=== PATIENT | male | born 1970 | race Caucasian/White ===

== ENCOUNTER 2022-08-21 14:04 | Emergency (ER) | payer MEDICARE, MEDICAID, SELFPAY ==
[2022-08-21 14:11] VITALS: BP 169/97; PULSE 71; RESP 16; TEMP 36.9; O2SAT 97; BMI 33.0
--- NOTE | 2022-08-21 14:13 | CT_ITS ---
[address] [address] Patient Name: ALETHEA LEI MRN: [id number] date: 1970 Sex: M Assigned Patient Location: ER Current Patient Location: .[facility] Accession/Order Number: [id number] Exam Date: 08/21/2022 14:30 Report Date: 08/21/2022 15:25 At the request of: GERARD EAST Procedure: CT head/brain wo con EXAM: CT facial bones wo con, CT head/brain wo con, CT cervical spine wo con HISTORY: Fall COMPARISON: CT head 09/18/2021. TECHNIQUE: CT head without contrast. CT facial bones without contrast. CT cervical spine without contrast. Multiplanar reformats obtained. The current study utilizes one or more of the following dose-reduction techniques: automated exposure control, iterative reconstruction, and/or manual adjustment of tube current and voltage for size. FINDINGS: CT HEAD: Chronic brain parenchymal calcifications, not significant change. No evidence of acute intracranial hemorrhage. No midline shift. Ibarra-white matter differentiation is maintained. Basal cisterns patent. Ventricles reflect volume loss. Small left frontal scalp contusion. CT FACIAL BONES: The mandible is intact. Temporal mandibular joint alignment maintained. The pterygoid plates are intact. Mastoid air cells clear. Paranasal sinuses largely clear. Orbits are intact. No nasal bone fracture. CT CERVICAL SPINE: No evidence of acute fracture or traumatic malalignment. Age expected degenerative change. The spinal canal is grossly patent. No prevertebral edema. Mild/moderate multilevel and bilateral neural foraminal stenoses. IMPRESSION: No acute ischemia findings. No facial bone fractures. No acute traumatic findings of the cervical spine. Small left frontal scalp contusion. Electronically authenticated by: PHILL TARANGO Date: 08/21/2022 15:25
--- NOTE | 2022-08-21 14:13 | CT_ITS ---
[address] [address] Patient Name: ALETHEA LEI MRN: [id number] date: 1970 Sex: M Assigned Patient Location: ER Current Patient Location: .[facility] Accession/Order Number: [id number] Exam Date: 08/21/2022 14:30 Report Date: 08/21/2022 15:25 At the request of: GERARD EAST Procedure: CT facial bones wo con EXAM: CT facial bones wo con, CT head/brain wo con, CT cervical spine wo con HISTORY: Fall COMPARISON: CT head 09/18/2021. TECHNIQUE: CT head without contrast. CT facial bones without contrast. CT cervical spine without contrast. Multiplanar reformats obtained. The current study utilizes one or more of the following dose-reduction techniques: automated exposure control, iterative reconstruction, and/or manual adjustment of tube current and voltage for size. FINDINGS: CT HEAD: Chronic brain parenchymal calcifications, not significant change. No evidence of acute intracranial hemorrhage. No midline shift. Ibarra-white matter differentiation is maintained. Basal cisterns patent. Ventricles reflect volume loss. Small left frontal scalp contusion. CT FACIAL BONES: The mandible is intact. Temporal mandibular joint alignment maintained. The pterygoid plates are intact. Mastoid air cells clear. Paranasal sinuses largely clear. Orbits are intact. No nasal bone fracture. CT CERVICAL SPINE: No evidence of acute fracture or traumatic malalignment. Age expected degenerative change. The spinal canal is grossly patent. No prevertebral edema. Mild/moderate multilevel and bilateral neural foraminal stenoses. IMPRESSION: No acute ischemia findings. No facial bone fractures. No acute traumatic findings of the cervical spine. Small left frontal scalp contusion. Electronically authenticated by: PHILL TARANGO Date: 08/21/2022 15:25
--- NOTE | 2022-08-21 14:13 | CT_ITS ---
[address] [address] Patient Name: ALETHEA LEI MRN: [id number] date: 1970 Sex: M Assigned Patient Location: ER Current Patient Location: .[facility] Accession/Order Number: [id number] Exam Date: 08/21/2022 14:30 Report Date: 08/21/2022 15:25 At the request of: GERARD EAST Procedure: CT cervical spine wo con EXAM: CT facial bones wo con, CT head/brain wo con, CT cervical spine wo con HISTORY: Fall COMPARISON: CT head 09/18/2021. TECHNIQUE: CT head without contrast. CT facial bones without contrast. CT cervical spine without contrast. Multiplanar reformats obtained. The current study utilizes one or more of the following dose-reduction techniques: automated exposure control, iterative reconstruction, and/or manual adjustment of tube current and voltage for size. FINDINGS: CT HEAD: Chronic brain parenchymal calcifications, not significant change. No evidence of acute intracranial hemorrhage. No midline shift. Ibarra-white matter differentiation is maintained. Basal cisterns patent. Ventricles reflect volume loss. Small left frontal scalp contusion. CT FACIAL BONES: The mandible is intact. Temporal mandibular joint alignment maintained. The pterygoid plates are intact. Mastoid air cells clear. Paranasal sinuses largely clear. Orbits are intact. No nasal bone fracture. CT CERVICAL SPINE: No evidence of acute fracture or traumatic malalignment. Age expected degenerative change. The spinal canal is grossly patent. No prevertebral edema. Mild/moderate multilevel and bilateral neural foraminal stenoses. IMPRESSION: No acute ischemia findings. No facial bone fractures. No acute traumatic findings of the cervical spine. Small left frontal scalp contusion. Electronically authenticated by: PHILL TARANGO Date: 08/21/2022 15:25
--- NOTE | 2022-08-21 14:17 | ED.HEATRA1 ---
HPI - Head Injury General Chief complaint: Head Injury Stated complaint: HEAD INJURY, FELL Time Seen by Provider: 08/21/22 14:12 Source: caregiver Mode of arrival: walk-in Limitations: other Limitations comment: Disability History of Present Illness HPI Narrative: patient is a 52-year-old male who presents to the emergency department with a caregiver from the long-term [facility] where he is a resident for the evaluation of a head injury that occurred just prior to arrival. Patient has moderate developmental disability. He was at an outing with other residents when he stood up from a chair and tripped on a curb, falling forward. Caregiver has extremely limited information about his medical history although he does not take any blood thinners. He had no loss of consciousness and has had no vomiting. He is at his mental baseline, ambulatory with no noted extremity injuries. He was noted to have swelling and abrasion to the forehead. No bleeding from the nose or mouth. Related Data Home Medications Medication Instructions Recorded Confirmed calcium carbonate 500 mg-vitamin 1 tab PO BID 08/21/22 08/21/22 D3 5 mcg (200 unit) tablet (Oyster Shell Calcium-Vitamin D3) denosumab 60 mg/mL subcutaneous 60 mg subcut .6 months 08/21/22 08/21/22 syringe (Prolia) oxcarbazepine 600 mg tablet 600 mg PO BID 08/21/22 08/21/22 paroxetine HCl 40 mg tablet 60 mg PO DAILY 08/21/22 08/21/22 Allergies Allergy/AdvReac Type Severity Reaction Status Date / Time Pertussis Vaccines Allergy Unknown Verified 08/21/22 14:16 Review of Systems ROS Constitutional Denies: fever or chills Ears, nose, mouth, and throat Denies: neck pain Cardiovascular Denies: chest pain Respiratory Denies: shortness of breath or cough Gastrointestinal Denies: nausea or vomiting Musculoskeletal Denies: back pain Integumentary/Breast Denies: rash Neurological Denies: headache PFSH PFSH Social History Smoking status: Never smoker Exam Narrative Exam Narrative: Gen.: Awake, alert, in no distress Head: Normocephalic, atraumatic ENT: Moist mucous membranes, no injury to the nose or mouth, no epistaxis or bleeding. Patient with a large abrasion and small hematoma over the left orbit. No deep lacerations or subcutaneous tissue exposure noted. No active bleeding. Neck: C-spine nontender with full range of motion Respiratory: No respiratory distress, lungs clear bilaterally Cardio: Regular rate and rhythm Gastrointestinal: Abdomen is soft, nondistended and nontender to palpation, pelvis is stable Extremities: Moves extremities equally, no injuries noted Psych: Normal mood and affect Neuro: No focal neuro deficit Skin: Warm, dry Constitutional Vital Signs - 24 hr 08/21/22 14:11 Temperature 98.4 F Pulse Rate [Monitor] 71 Respiratory Rate 16 Blood Pressure [Left Arm] 169/97 H Pulse Oximetry 97 Oxygen Delivery Method Room Air Course Vital Signs Vital signs: Vital Signs Temperature 98.4 F 08/21/22 14:11 Pulse Rate 71 08/21/22 14:11 Respiratory Rate 16 08/21/22 14:11 Blood Pressure 169/97 H 08/21/22 14:11 Pulse Oximetry 97 08/21/22 14:11 Oxygen Delivery Method Room Air 08/21/22 14:11 Temperature 98.4 F 08/21/22 14:11 Pulse Rate 71 08/21/22 14:11 Respiratory Rate 16 08/21/22 14:11 Blood Pressure 169/97 H 08/21/22 14:11 Pulse Oximetry 97 08/21/22 14:11 Oxygen Delivery Method Room Air 08/21/22 14:11 MDM - Head Injury MDM Narrative Medical decision making narrative: CTs of the head, facial bones and C-spine are unremarkable. No indication for suture repair at this time. Bacitracin was applied. Patient's tetanus is within the last ten years, he is ALLERGIC to pertussis vaccines so we are not able to provide any additional tetanus updated this time, I'll up with PCP. Wound care encouraged and return to the emergency department if symptoms change or worsen. Patient is extremely anxious for discharge. Imaging Data CT scan - head: Attestation: I have reviewed the pertinent imaging results. CT facial bones: Attestation: I have reviewed the pertinent imaging results. CT cervical spine: Attestation: I have reviewed the pertinent imaging results. Discharge Plan Discharge Chief Complaint: Head Injury Clinical Impression: Closed head injury, Hematoma of scalp, Abrasion of face Patient Disposition: Home, Self-Care Time of Disposition Decision: 15:29 Condition: Good Prescriptions / Home Meds: No Action oxcarbazepine 600 mg tablet 600 mg PO BID paroxetine HCl 40 mg tablet 60 mg PO DAILY calcium carbonate-vitamin D3 [Oyster Shell Calcium-Vit D3] 500 mg-5 mcg (200 unit) tablet 1 tab PO BID Prolia 60 mg/mL syringe 60 mg SUBCUT .6 months Instructions: Head Injury (ED), Abrasion (ED) Stand Alone Forms: Portal Instructions Referrals: Physician,Non-Staff, MD [Primary Care Provider] - 1 week
[2022-08-21] MEDS: BACITRACIN OINTMENT 28.4 GM TUBE 1 APPLIC TOPICAL (14:34)
== END 2022-08-21 15:36 | disposition home or self-care (01) ==
PROVIDERS: Emergency Provider Emergency Medicine
DX: S09.8XXA Other specified injuries of head, initial encounter (principal); S00.03XA Contusion of scalp, initial encounter; S00.212A Abrasion of left eyelid and periocular area, initial encounter; W10.1XXA Fall (on)(from) sidewalk curb, initial encounter; Z79.899 Other long term (current) drug therapy
CPT/HCPCS: 70450; 70486; 72125; 99284

== ENCOUNTER 2023-07-14 11:00 | Emergency (ER) | payer MEDICARE, MEDICAID, SELFPAY ==
[2023-07-14 11:04] VITALS: BP 150/98; PULSE 62; TEMP 36.5; O2SAT 99; BMI 25.8
--- NOTE | 2023-07-14 11:07 | CT_ITS ---
The [address] [address] Patient Name: ALETHEA LEI MRN: [id number] date: 1970 Sex: M Assigned Patient Location: ER Current Patient Location: ER Accession/Order Number: [id number] Exam Date: 07/14/2023 12:12 Report Date: 07/14/2023 12:58 At the request of: JODI HILLS Procedure: CT head/brain wo con EXAMINATION: CT head/brain wo con HISTORY: Fell, hit head COMPARISON: CT head 08/21/2022 TECHNIQUE: Axial CT images were obtained without IV contrast. Dose reduction techniques were achieved by using automated exposure control and/or adjustment of mA and/or kV according to patient size and/or use of iterative reconstruction technique. FINDINGS: BRAIN: Multiple dense calcifications scattered within the brain and smaller areas of faint calcium deposition; unchanged. No intracranial hemorrhage, mass, mass effect. CSF SPACES: No hydrocephalus, subarachnoid hemorrhage, or mass. Appropriate for age. SKULL: No fracture, mass, or other significant visible lesion. SINUSES: No significant mucosal thickening or fluid on the limited views. ORBITS: No appreciable abnormality on the limited views. OTHER: Negative CT/CT head/brain wo con IMPRESSION: 1. No intracranial hemorrhage or acute abnormality. Stable chronic changes. 2. No fracture of the calvarium or scalp hematoma. Electronically authenticated by: SANDY DÍAZ Date: 07/14/2023 12:58
--- NOTE | 2023-07-14 11:08 | ED.FALL1 ---
HPI HPI - Fall General Chief Complaint: Fall Stated Complaint: FALL Time Seen by Provider: 07/14/23 11:07 Source: patient Mode of arrival: ambulance History of Present Illness HPI Narrative: 53-year-old male presented by ambulance to ED for a fall. The fall reportedly happened this morning at the facility where he stays. The patient only complains of head pain. He went to work and they felt that he was not acting normal so they sent him here to be evaluated. The patient is a poor historian and is unable to provide much history. Related Data Home Medications ?Medication ?Instructions ?Recorded ?Confirmed oxcarbazepine 600 mg tablet 600 mg PO BID 08/21/22 07/14/23 paroxetine HCl 40 mg tablet 60 mg PO DAILY 08/21/22 07/14/23 atorvastatin 40 mg tablet 40 mg PO DAILY 07/14/23 07/14/23 benztropine 1 mg tablet 1 mg PO TID 07/14/23 07/14/23 clonidine HCl 0.1 mg tablet 0.1 mg PO Q8H 07/14/23 07/14/23 docusate sodium 100 mg capsule 100 mg PO TID 07/14/23 07/14/23 fluocinonide 0.05 % topical topical .weekly 07/14/23 solution haloperidol 5 mg tablet 10 mg PO .evening 07/14/23 07/14/23 Allergies Allergy/AdvReac Type Severity Reaction Status Date / Time Pertussis Vaccines Allergy Unknown Verified 08/21/22 14:16 Opioid HPI Opioid Management Most Recent Pain and Opioid Data: No Data to Display Review of Systems ROS Narrative Unable to be obtained, psychiatric history PFSH PFSH Social History Smoking status: Never smoker Exam Narrative Exam Narrative: Nurses note and vital signs reviewed and patient is not hypoxic. General: The patient appears well and in no apparent distress. Patient is resting comfortably on cart. Skin: Warm, dry, no pallor noted. There is no rash noted. Small abrasion noted on the left forearm. Head: Normocephalic, atraumatic Eye: Normal conjunctiva, no drainage Ears, Nose, Mouth, and Throat: oral mucosa is moist. Nares patent. Cardiovascular: Regular Rate and Rhythm Respiratory: Patient is in no distress, no accessory muscle use, lungs are clear to auscultation, no wheezing, rales or rhonchi Back: non-tender, no bruise or rash GI: Soft and nontender Musculoskeletal: The patient has no evidence of calf tenderness, no pitting edema, symmetrical pulses noted bilaterally Neurological: Awake and alert, conversant Psychiatric: Cooperative Constitutional Vital Signs, click to edit/add: Last Vital Signs Temp 97.7 F 07/14/23 11:04 Pulse 62 07/14/23 11:04 Resp 16 07/14/23 11:04 BP 150/98 H 07/14/23 11:04 Pulse Ox 99 07/14/23 11:04 O2 Del Method Room Air 07/14/23 11:04 Course Vital Signs Vital signs: Vital Signs Temperature 97.7 F 07/14/23 11:04 Pulse Rate 62 07/14/23 11:04 Respiratory Rate 16 07/14/23 11:04 Blood Pressure 150/98 H 07/14/23 11:04 Pulse Oximetry 99 07/14/23 11:04 Oxygen Delivery Method Room Air 07/14/23 11:04 Temperature 97.7 F 07/14/23 11:04 Pulse Rate 62 07/14/23 11:04 Respiratory Rate 16 07/14/23 11:04 Blood Pressure 150/98 H 07/14/23 11:04 Pulse Oximetry 99 07/14/23 11:04 Oxygen Delivery Method Room Air 07/14/23 11:04 MDM - Fall MDM Narrative Medical decision making narrative: See the brain is negative. Findings discussed with the caregiver and he is able to be discharged. Differential Diagnosis Differential diagnosis: Likely other (Fall, intracranial hemorrhage, contusion) Imaging Data CT scan - head: Radiologist's impression: ITS Impressions Head CT 07/14/23 11:07 IMPRESSION: 1. No intracranial hemorrhage or acute abnormality. Stable chronic changes. 2. No fracture of the calvarium or scalp hematoma. Electronically authenticated by: SANDY DÍAZ Date: 07/14/2023 12:58 Discharge Plan Discharge Stand Alone Forms: Portal Instructions Chief Complaint: Fall Clinical Impression: Fall Patient Disposition: Home, Self-Care Time of Disposition Decision: 13:21 Condition: Good Mode of Transportation: Private Vehicle Prescriptions / Home Meds: No Action oxcarbazepine 600 mg tablet 600 mg PO BID Hold Instructions: dc paroxetine HCl 40 mg tablet 60 mg PO DAILY Hold Instructions: dc atorvastatin 40 mg tablet 40 mg PO DAILY benztropine 1 mg tablet 1 mg PO TID clonidine HCl 0.1 mg tablet 0.1 mg PO Q8H docusate sodium 100 mg capsule 100 mg PO TID fluocinonide 0.05 % solution TOPICAL .weekly haloperidol 5 mg tablet 10 mg PO .evening Print Language: Tamazight Instructions: Fall Prevention (ED) Referrals: Physician,Non-Staff, MD [Primary Care Provider] - 1 week
== END 2023-07-14 13:30 | disposition home or self-care (01) ==
PROVIDERS: Emergency Provider Emergency Medicine
DX: Z04.3 Encounter for examination and observation following other accident (principal); Z79.899 Other long term (current) drug therapy
CPT/HCPCS: 70450; 99284

== ENCOUNTER 2023-07-15 09:53 | Outpatient (REF) | payer MEDICARE, MEDICAID, SELFPAY ==
--- OUTSIDE RECORDS SUMMARY | 2023-07-15 10:01 | XMS_ITS | CCD ---
Author Organization [facility] Care Team Providers Care Barrel Assembly Inspector Name Role Phone Robbi PETERSEN Unavailable Unavailable ESPINOZA, GO A Unavailable Unavailable ESPINOZA, GO A Unavailable Unavailable Chanoemi, Kamal Unavailable Cj Gayle Unavailable DO Go Espinoza A Primary Care Provider [phone] DO Cj Gayle Attending Provider PROVIDER, UNKNOWN Attending Unavailable PROVIDER, UNKNOWN Admitting Unavailable PROVIDER, UNKNOWN Admitting Unavailable PROVIDER, UNKNOWN Attending Unavailable SIMI EDWARDS Admitting Unavailable SIMI EDWARDS Attending Unavailable SIMI EDWARDS Referring Unavailable Unavailable Primary Care Provider Unavailabl e Kristin, DO Go A Primary Care Provider DO Cj Gayle A Attending Provider [phone] Espinoza, DO Go A Primary Care Provider [phone] DO Cj Gayle A Attending Provider MD Nallely Parada Attending Provider Cj Gayle A Attending Unavailable Espinoza, Go A Primary Care Unavailable Nalini Cj A Admitting Unavailable NaliniMagdyin A Attending Unavailable Espinoza, Go A Primary Care Unavailable Nalini, Cj A Admitting Unavailable Nalini, Cj A Attending Unavailable Espinoza, Go A Primary Care Unavailable Nalini, Cj A Admitting Unavailable Espinoza, Go A Primary Care Unavailable Chaban, Kamal Attending Unavailable Chaban, Kamal Admitting Unavailable Espinoza, Go A Primary Care Unavailable KassybanNallely Attending Unavailable Chaban, Kamal Admitting Unavailable Nalini, Cj A Admitting Unavailable Espinoza, Go A Primary Care Unavailable NaliniCj Attending Unavailable NaliniCj Admitting Unavailable Espinoza, Go Ricci Primary Care Unavailable NaliniCj Attending Unavailable Unavailable Primary Care Provider Unavailnallely MORALEZ ., TRAN Admitting Unavailable KIRT ., TRAN Attending Unavailable ESPINOZA, DR GO Ricci Primary Care Unavailable ZIEBER, DR SANDY Velez Consulting Unavailable SHEILA ., MARY Consulting Unavailable KIRT .TRAN Consulting Unavailable ESPINOZA, DR GO Ricci Primary Care Unavailable WEST, DR NORMA Medellin Consulting Unavailable ESPINOZA, DR GO Ricci Admitting Unavailable ESPINOZA, DR GO Ricci Attending Unavailable ESPINOZA, DR GO Ricci Consulting Unavailable ESPINOZA, DR GO Ricci Primary Care Unavailable ESPINOZA, DR GO Ricci Admitting Unavailable ESPINOZA, DR GO Ricci Attending Unavailable WEST, DR NORMA Medellin Consulting Unavailable ESPINOZA, DR GO Ricci Consulting Unavailable ESPINOZA, DR GO Ricci Consulting Unavailable ESPINOZA, DR GO Ricci Primary Care Unavailable ESPINOZA, DR GO Ricci Admitting Unavailable ESPINOZA, DR GO Ricci Attending Unavailable JONAH MAJANO Consulting Unavailable ESPINOZA, DR GO Ricci Consulting Unavailable ESPINOZA, DR GO Ricci Primary Care Unavailable ESPINOZA, DR GO Ricci Attending Unavailable ESPINOZA, DR GO Ricci [place] Unavailable BROWNNORMA Consulting Unavailable ESPINOZA, DR GO Ricci Consulting Unavailable ESPINOZA, DR GO Ricci Primary Care Unavailable ESPINOZA, DR GO Ricci Attending Unavailable ESPINOZA, DR GO Ricci Admitting Unavailable ESPINOZA, DR GO Ricci Attending Unavailable ESPINOZA, DR GO Ricci [place] Unavailable WEST, DR NORMA Medellin Consulting Unavailable ESPINOZA, DR GO Ricci Primary Care Unavailable ESPINOZA, DR GO Ricci Consulting Unavailable ESPINOZAGO Primary Care Physician [phone] PITER BROWN Attending Unavailable ESPINOZA, GO Admitting Unavailable ESPINOZA, GO Attending Unavailable ESPINOZA, GO Attending Unavailable ESPINOZA, GO Admitting Unavailable SUMEET CALI Attending Unavailable ESPINOZA, GO ENCISO Primary Care Unavailab le SQUERIMEGAN Referring Unavailable SQUERI, MEGAN Attending Unavailable ESPINOZA, GO ENCISO Referring Unavailab le ESPINOZA, GO ENCISO Primary Care Unavailab le Allergies Allergy Classification Reported Allergen(s) Allergy Type Date of Onset Reaction(s) Facility (1 source) PERTUSSIS VACCINE,FLUID; Translations: [PERTUSSIS VACCINE,FLUID] Propensity to adverse reactions to drug (disorder) 7 [facility] Rep[facility] (7 sources) PERTUSSIS VACCINES; Translations: [PERTUSSIS VACCINES] Propensity to adverse reactions to drug (disorder) 8 [facility] Repository (1 source) Pertussis Vaccine Drug Allergy 3 [facility] Repository (1 source) ARIPiprazole; Translations: [ARIPIPRAZOLE] Drug Allergy 8 [facility] Repository Medications Current Medications Medication Drug Class(es) Dates Sig (Normalized) Sig (Original) 8 hr acetaminophen 650 mg extended release oral tablet (5 sources) Start: 09-24-2021 take 650 mg by mouth every four to six hours Acetaminophen Active 650 MG PO EVERY 4-6 HOURS September 23, 2021 11:00pm acetaminophen 325 mg / HYDROcodone bitartrate 5 mg oral tablet (5 sources) Opioid Agonist Start: 09-24-2021 take 1 tablet by mouth every four to six hours Hydrocodone-Acetam inophen Active 1 TAB PO EVERY 4-6 HOURS September 23, 2021 11:00pm alendronic acid 70 mg oral tablet (12 sources) Bisphosphonate Start: 09-24-2021 take 70 mg by mouth once daily Alendronate Active 70 MG PO Daily September 23, 2021 11:00pm Alendronate / Cholecalciferol (2 sources) Bisphosphonate, Vitamin D ALENDRONATE-CHOLEC ALCIFEROL ORAL Take by mouth. 0 Active aspirin 81 mg delayed release oral tablet (14 sources) Platelet Aggregation Inhibitor, Nonsteroidal Anti-inflammatory Drug Start: 09-24-2021 take 81 mg by mouth once daily Aspirin Active 81 MG PO Daily September 23, 2021 11:00pm take 1 tablet by mouth once cait y Aspir-Low 81 MG 1 tablet Orally Once a day Active Aspirin (ASPIR-8 1 ORAL) Take by mouth. 0 Active atorvastatin 40 mg oral tablet (14 sources) HMG-CoA Reductase Inhibitor Start: 09-24-2021 take 40 mg by mouth once daily Atorvastatin Active 40 MG PO Daily September 23, 2021 11:00pm benztropine mesylate 1 mg oral tablet (14 sources) Anticholinergic, Antihistamine Start: 09-24-2021 take 1 mg by mouth once daily Benztropine Active 1 MG PO Daily September 23, 2021 11:00pm take 1 tablet by mouth twice mc ly benztropine (COGENTIN) 1 MG tablet Take 1 mg by mouth 2 times daily. 0 Active Biotene Dry Mouth - (6 sources) Biotene Dry Mout h - as directed Mouth/Throat Active cloNIDine hydrochloride 0.1 mg oral tablet (14 sources) Central alpha-2 Adrenergic Agonist Start: 09-24-2021 take 0.1 mg by mouth once daily Clonidine Hcl Active 0.1 MG PO Daily September 23, 2021 11:00pm cloNIDine HCl (C ATAPRES ORAL) Take by mouth. 0 Active Dentifrices (BIOTENE DRY MOUTH DENTAL) (2 sources) Dentifrices (BIO TENE DRY MOUTH DENTAL) by Dental route. 0 Active haloperidol 5 mg oral tablet (12 sources) Typical Antipsychotic Start: 09-25-19 take 5 mg by mouth once daily Haloperidol Active 5 MG PO Daily September 23, 2021 11:00pm levothyroxine sodium 0.1 mg oral tablet (19 sources) l-Thyroxine Start: 09-25-19 take 150 ug by mouth once daily Levothyroxine Active 150 MCG PO Daily September 23, 2021 11:00pm take 1 tablet by elab th once daily in the morning Levothyroxine Sodium 100 MCG 1 tablet in the morning on an empty stomach Orally Once a day Active take 1 tablet by elba th once daily in the morning Levothyroxine Sodium 50 MCG 1 tablet in the morning on an empty stomach Orally Once a day Active LORazepam 1 mg oral tablet (2 sources) Benzodiazepine Start: 02-10-2022 LORazepam 1 MG as directed before testing Orally once for 1 days Jan, Active OXcarbazepine 600 mg oral tablet (14 sources) Anti-epileptic Agent Start: 09-24-2021 take 600 mg by mouth twice daily Oxcarbazepine Active 600 MG PO Twice daily September 23, 2021 11:00pm OXcarbazepine (T RILEPTAL ORAL) Take by mouth. 0 Active PARoxetine hydrochloride 40 mg oral tablet (14 sources) Serotonin Reuptake Inhibitor Start: 09-24-2021 take 40 mg by mouth once daily Paroxetine Hcl Active 40 MG PO Daily September 23, 2021 11:00pm Potassimin (7 sources) Potassimin Activ e potassium chloride 10 meq extended release oral capsule (7 sources) Start: 09-24-2021 take 10 mEq by mouth three times daily Potassium Chloride Active 10 MEQ PO Three times daily September 23, 2021 11:00pm take 1 tablet by mouth once cait y potassium chloride SA (K-DUR) 10 MEQ controlled release tablet Take 10 mEq by mouth daily. 0 Active Saliva Substitute Combo No.9 (Biotene Dry Mouth Oral Rinse) mouthwash (5 sources) Start: 09-24-2021 Saliva Substit [employer] [place] Combo No.9 (Biotene Dry Mouth Oral Rinse) mouthwash Active 5 ML PO As Directed September 23, 2021 11:00pm Start: 09-24-2021 Saliva Substit [employer] [place] Combo No.9 (Biotene Dry Mouth Oral Rinse) mouthwash Active 5 ML PO As Directed September 24, 2021 12:00am traMADol hydrochloride 50 mg oral tablet (5 sources) Opioid Agonist Start: 09-24-2021 take 50 mg by mouth every four hours Tramadol Active 50 MG PO Q4H 42 7 September 23, 2021 11:00pm Problems Active Problems Problem Classification Problem Date Documented Date Episodic/Chronic Chronic kidney disease (1 source) Chronic kidney disease, unspecified; Translations: [CHRONIC KIDNEY DISEASE UNSPECIFIED] Onset: 03-17-2022 Chronic Developmental disorders (1 source) Unspecified intellectual disabilities; Translations: [UNSPEC INTELLECTUAL DISABILITIES] Onset: 09-25-2021 Chronic Disorders usually diagnosed in infancy, childhood, or adolescence (1 source) Autistic disorder; Translations: [AUTISTIC DISORDER] Onset: 09-25-2021 Chronic Epilepsy; convulsions (1 source) Epilepsy, unspecified, not intractable, without status epilepticus; Translations: [EPILEPSY UNS NOT INTRACT W/O SE] Onset: 03-17-2022 Chronic Essential hypertension (1 source) Essential (primary) hypertension; Translations: [ESSENTIAL PRIMARY HYPERTENSION] Onset: 09-25-2021 Chronic Fracture of lower limb (3 sources) Other fracture of lower end of left tibia, subsequent encounter for closed fracture with routine healing Onset: 10-16-2021 Resolved: 10-16-2021 Episodic Headache; including migraine (1 source) Headache; including migraine; Translations: [HEADACHE UNSPECIFIED] Onset: 09-25-2021 Osteoporosis (4 sources) Age-related osteoporosis without current pathological fracture; Translations: [AGE-REL OSTEOPOR W/O CURR PATH FX] Onset: 06-09-2022 Chronic Other congenital anomalies (7 sources) Tuberous sclerosis syndrome; 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 Other congenital anomalies (1 source) Tuberous sclerosis Onset: 08-14-2021 Resolved: 08-14-2021 Chronic Other connective tissue disease (4 sources) Pain in right leg; Translations: [PAIN IN RIGHT LEG] Onset: 04-11-2022 Episodic Other diseases of kidney and ureters (1 source) Other specified disorders of kidney and ureter; Translations: [OTHER SPEC DISORDERS KIDNEY URETER] Onset: 05-31-2022 Chronic Other nervous system disorders (1 source) Unspecified abnormalities of gait and mobility; Translations: [UNS ABNORMALITIES GAIT AND MOBILITY] Onset: 04-16-2022 Episodic Other non-traumatic joint disorders (1 source) Stiffness of unspecified joint, not elsewhere classified; Translations: [STIFFNESS UNSPECIFIED JOINT NEC] Onset: 04-16-2022 Episodic Residual codes; unclassified (1 source) Other specified postprocedural states Episodic Thyroid disorders (5 sources) Hypothyroidism, unspecified; Translations: [HYPOTHYROIDISM UNSPECIFIED] Onset: 09-25-2021 Chronic Unclassified (1 source) Displaced fracture of lateral malleolus of right fibula, subsequent encounter for closed fracture with routine healing; Translations: [Displaced fracture of lateral malleolus of right fibula, subsequent encounter for closed fracture with routine healing] Onset: 01-06-2022 Unclassified (1 source) Displaced fracture of lateral malleolus of right fibula, initial encounter for closed fracture; Translations: [Displaced fracture of lateral malleolus of right fibula, initial encounter for closed fracture] Onset: 09-24-2021 Unclassified (1 source) Encounter for preprocedural laboratory examination; Translations: [Encounter for preprocedural laboratory examination] Onset: 09-23-2021 Unclassified (3 sources) CHRN KIDNEY DISEASE STG 3 UNSP; Translations: [CHRN KIDNEY DISEASE STG 3 UNSP] Onset: 05-31-2022 Unclassified (1 source) CONTACT W/AND (SUSP) EXPOS COVID-19; Translations: [CONTACT W/AND (SUSP) EXPOS COVID-19] Onset: 09-25-2021 Past or Other Problems Problem Classification Problem Date Documented Da te Episodic/Chronic Disorders of teeth and jaw (2 sources) Dental caries; Translations: [Dental caries, unspecified] Onset: 01-01-2021 01-01-2021 Episodic E Codes: Fall (1 source) Fall on same level, unspecified, initial encounter; Translations: [FALL SAME LEVEL UNSPECIFIED INITIAL] Onset: 09-25-2021 Episodic Fracture of lower limb (10 sources) Displaced fracture of lateral malleolus of right fibula, subsequent encounter for closed fracture with routine healing; Translations: [Fracture of ankle] Onset: 09-24-2021 Resolved: 10-16-2021 Episodic Other aftercare (1 source) Other care home (current) drug therapy; Translations: [OTH USP CURRENT DRUG THERAPY] Onset: 09-25-2021 Episodic Other lower respiratory disease (1 source) Other disorders of lung Onset: 08-14-2021 Resolved: 08-14-2021 Episodic Other lower respiratory disease (2 sources) Solitary pulmonary nodule; Translations: [Solitary pulmonary nodule] Onset: 08-05-2021 Episodic Other non-traumatic joint disorders (3 sources) Pain in right ankle and joints of right foot; Translations: [PAIN IN RIGHT ANKLE] Onset: 09-18-2021 Episodic Unclassified (1 source) CHRN KIDNEY DISEASE STG 3 UNSP; Translations: [CHRN KIDNEY DISEASE STG 3 UNSP] Onset: 05-27-2022 Results Test Name Value Interpretation Reference Range Facility [facility]2023 [facility] ALETHEA LEI ([id number]) 1970 M Date Time Provider Department 05/15/23 SUMEET CALI PSYRMN During your visit today, we recorded the following information about you: Mariana Fair 05/15/2023 2:56 PM Signed uLcretia Allison- patients mom called and stated that [facility] is not able to do an appt for patient with you? They told her if you had a form that you can send to them? She don't know the name of the form? The conversation was a bit confusing. Mom can be reached at [phone] Thank you, Mariana Fair Allergies As of Date: 05/15/2023 Noted Allergy Reaction ARSALANLIFY (ARIPIPRAZOLE) 02/01/2008 1 - Mental Status Change Comments: agressiveness PERTUSSIS VACCINES 12/13/2007 Date Reviewed: 07/08/2022 Reviewed by: Megan Tse MD - Fully Assessed Prescriptions as of 05/18/2023 - alendronate (FOSAMAX) 70 mg tablet Take 1 tablet by mouth one time a week. on Wednesdays at 15:00 - loratadine (CLARITIN) 10 mg tablet Take 1 tablet by mouth once daily. for 3 days as needed for nasal congestion. - haloperidol (HALDOL) 5 mg tablet Take 3 tablets daily by mouth in the morning, 2 tablets in the evening, and 3 tablets at bedtime - gstmfgk-vorrrgkgf-zl tamin D3 (OYSTER SHELL CALCIUM-VITAMIN D) 500 mg(1,250mg) -200 unit per tablet Take 1 tablet by mouth twice daily with meals. - levothyroxine (SYNTHROID) 150 mcg tablet Take 1 tablet by mouth once daily. - fluocinonide (LIDEX) 0.05 % cream Apply 1 application to affected area once each week. - OXcarbazepine 600 mg tablet Take 1 tablet by mouth three times daily. - PARoxetine 40 mg tablet Take 1.5 tablets by mouth once daily. - cloNIDine 0.1 mg tablet Take 1 tablet by mouth three times daily. - MULTIVITAMIN CAP daily - POTASSIUM CHLORIDE SR 10 MEQ TAB one cap three times daily - DOCUSATE SODIUM 100 MG CAP take one tab PO tid - BENZTROPINE 1 MG TAB take 1 tablet TID Problem List As Of Date 05/15/2023 Noted Resolved TUBEROUS SCLEROSIS [Q85.1] 02/02/2008 HEMANGIOMA SKIN [D18.01] 02/02/2008 SPECIAL SYMPTOM NEC/NOS [OZZ4662] 02/03/2008 FRONTAL LOBE SYNDROME [F07.0] 08/02/2008 Autism spectrum disorder [F84.0] 08/02/2008 Impulse control disorder [F63.9] 08/16/2012 Intellectual disability [F79] 01/31/2021 Encounter Status:Closed by MARIANA FAIR on 05/18/23 Normal [facility] T3 Freeon 02-27-2023 Free T3 [Mass/Vol] 2.0 pg/mL Invalid Interpretation Code 2.0-4.4 [facility] Comment on above: Result Comment: Perf ormed at: [facility] [address], [place] [id number] PhD Jarod Kumar Performed By: #### 2 880372, 6914587, 0828755, 78848065, 341675525, 3235199, 3685900, 8539724, 7631049, 9940956 ####[facility] [address] [place] [address] CMPon 02-26-2023 Albumin [Mass/Vol] 4.1 g/dL Normal 3.3-5.0 [facility] Comment on above: Performed By: #### 2 247603, 5269970, 6194545, 57567955, 698097657, 8931028, 1222094, 4407322, 0882903, 3917274 #### [facility] [address] [place] [address] Albumin/Globulin [Mass ratio] 1.4 {ratio} Normal 1.1-2.2 [facility] Comment on above: Performed By: #### 2 871152, 3628487, 9629783, 10930427, 025797708, 3256337, 2800973, 1611424, 8599962, 7643262 #### [facility] [address] [place] [address] Alk Phos 158 Int._Unit/L High 21-98 [facility] Comment on above: Performed By: #### 2 291544, 8999219, 8601120, 72473101, 071232692, 8467027, 3845091, 0482930, 4172880, 5255600 #### [facility] [address] [place] [address] ALT 32 Int._Unit/L Normal 6-46 [facility] Comment on above: Performed By: #### 2 922024, 0811294, 0620883, 42865277, 758831368, 2925203, 3838109, 7303397, 9574354, 2742288 #### [facility] [address] [place] [address] Anion gap [Moles/Vol] 12 mmol/L Normal 6-16 [facility] Comment on above: Performed By: #### 2 099695, 9595350, 9691044, 59889630, 038068088, 3610287, 5353432, 9125606, 7778725, 1039780 #### [facility] [address] [place] [address] AST 25 Int._Unit/L Normal 5-43 [facility] Comment on above: Performed By: #### 2 842112, 1578618, 5647801, 06339752, 732751132, 3765992, 9550537, 6023915, 3704381, 7480045 #### [facility] [address] [place] [address] Bili Total 0.3 mg/dL Normal 0.0-1.1 [facility] Comment on above: Performed By: #### 2 416378, 6320825, 7285330, 26977565, 834933094, 1267148, 1839894, 3046093, 2522536, 7189668 #### [facility] [address] [place] [address] BUN/Creat Ratio 17 No Units Normal 10-20 [facility] Comment on above: Performed By: #### 2 986600, 5542002, 7806910, 98276186, 179619700, 9604608, 6191909, 4991927, 0245327, 0310847 #### [facility] [address] [place] [address] Calcium [Mass/Vol] 8.9 mg/dL Normal 8.9-11.1 [facility] Comment on above: Performed By: #### 2 951056, 0276987, 2996195, 43803063, 369191583, 3478771, 8102068, 8406400, 3774567, 6358815 #### [facility] [address] [place] [address] Chloride [Moles/Vol] 113 mmol/L High 101-111 [facility] Comment on above: Performed By: #### 2 849387, 7056304, 2841675, 73964623, 007341221, 0794186, 7246103, 5216551, 6697217, 7438176 #### [facility] [address] [place] [address] CO2 [Moles/Vol] 22 mmol/L Normal 21-31 [facility] Comment on above: Performed By: #### 2 510361, 7591361, 8886531, 95662418, 852631583, 5270048, 3312931, 2379249, 9183352, 3309158 #### [facility] [address] [place] [address] Creatinine [Mass/Vol] 1.5 mg/dL High 0.5-1.3 [facility] Comment on above: Performed By: #### 2 114117, 9719370, 4101189, 96293128, 860265186, 7614943, 3353308, 9644708, 4614184, 4013484 #### [facility] [address] [place] [address] Globulin (S) [Mass/Vol] 2.9 g/dL Normal 1.4-4.0 [facility] Comment on above: Performed By: #### 2 448252, 2481620, 1078698, 84567686, 570339127, 3563778, 6758303, 2016621, 8082665, 4387703 #### [facility] [address] [place] [address] Glucose [Mass/Vol] 90 mg/dL Normal 55-199 [facility] Comment on above: Performed By: #### 2 587124, 7598138, 2984091, 82498613, 511571428, 6876187, 9602676, 6182748, 8623362, 7697513 #### [facility] [address] [place] [address] Potassium [Moles/Vol] 4.8 mmol/L Normal 3.5-5.3 [facility] Comment on above: Performed By: #### 2 036095, 0258663, 5137094, 34496132, 543241552, 9237974, 3788180, 3657707, 6231524, 0669026 #### [facility] [address] [place] [address] Protein [Mass/Vol] 7.0 g/dL Normal 6.0-7.8 [facility] Comment on above: Performed By: #### 2 300185, 9944241, 4284776, 79045914, 390885217, 9989876, 1584995, 0113557, 8338857, 6529797 #### [facility] [address] [place] [address] Sodium [Moles/Vol] 142 mmol/L Normal 135-145 [facility] Comment on above: Performed By: #### 2 790603, 7002169, 9496226, 65928146, 987659875, 2671508, 2988579, 4791313, 4934922, 5543170 #### [facility] [address] [place] [address] Urea nitrogen [Mass/Vol] 26 mg/dL High 5-21 [facility] Comment on above: Performed By: #### 2 069006, 7349474, 5481896, 21066742, 122802674, 0568885, 8486676, 5551684, 5328274, 3622943 #### [facility] [address] [place] [address] Ironon 02-26-2023 Iron 130 microgram/dL Normal 35-153 [facility] Comment on above: Performed By: #### 2 726902, 6105294, 6218446, 38602762, 867711979, 1571976, 0263564, 3210966, 4559917, 6684389 #### [facility] [address] [place] [address] Lipid Panelon 02-26-2023 Cholesterol [Mass/Vol] 105 mg/dL Low 120-200 [facility] Comment on above: Performed By: #### 2 301792, 1635083, 0734035, 02759295, 374394288, 8897018, 8956883, 5059655, 7535490, 6716025 #### [facility] [address] [place] [address] Cholesterol in HDL [Mass/Vol] 40 mg/dL Invalid Interpretation Code [facility] Comment on above: Result Comment: '>= 60 LOW RISK' '<= 40 HIGH RISK' Performed By: #### 2 012287, 2669596, 1654445, 24590034, 052747606, 1512530, 1629815, 3950914, 9281668, 3482451 #### [facility] [address] [place] [address] Cholesterol in LDL [Mass/Vol] 54 mg/dL Normal <=129 [facility] Comment on above: Performed By: #### 2 899392, 8242533, 7226544, 44754284, 174450741, 9977392, 1224277, 7600315, 0030169, 5396108 #### [facility] [address] [place] [address] Cholesterol in VLDL [Mass/Vol] 16 mg/dL Normal 7-40 [facility] Comment on above: Performed By: #### 2 554395, 0822595, 9158925, 42639015, 324000257, 8233002, 0296608, 0605011, 9479736, 3692427 #### [facility] [address] [place] [address] Triglyceride [Mass/Vol] 81 mg/dL Normal <=149 [facility] Comment on above: Performed By: #### 2 490300, 3423184, 0016426, 68485762, 010081022, 0999278, 4167785, 1263653, 9139107, 4349942 #### [facility] [address] [place] [address] Vit B12on 02-26-2023 Cobalamin (Vitamin B12) [Mass/Vol] 483 pg/mL Normal 50-1500 [facility] Comment on above: Performed By: #### 2 827981, 2056190, 3916745, 83570422, 030035538, 6516531, 1990213, 6414761, 4532865, 1029852 #### [facility] [address] [place] [address] Vitamin D 25 Hydroxyon 02-26 Vitamin D 25 Hydroxy 50.9 ng/mL Normal 30.0-100.0 [facility] Comment on above: Performed By: #### 2 628587, 8705169, 1545240, 33140650, 063678626, 2345566, 3276691, 6253552, 3886504, 8273625 ####[facility] [address] [place] [address] eGFRon 02-26-2023 eGFR 55 mL/min/1.73 m2 Low >=59 [facility] Comment on above: Order Comment: Order added by Discern Expert. Performed By: #### 2 830160, 8853321, 5079641, 07594652, 123505104, 7212483, 5505783, 8371339, 8587967, 3113677 #### [facility] [address] [place] [address] CBC w/Indiceson 02-25-2023 Erythrocyte distribution width (RBC) [Ratio] 13.2 % Normal 10.9-14.2 [facility] Comment on above: Performed By: #### 2 994011, 9612865, 8483192, 56137329, 957850087, 0266596, 6942088, 8804957, 3017420, 4625112 #### [facility] [address] [place] [address] Hematocrit (Bld) [Volume fraction] 40.6 % Normal 37.7-49.0 [facility] Comment on above: Performed By: #### 2 335368, 0835436, 8545724, 58544800, 537280444, 7517617, 3990657, 1207291, 0539619, 0028901 #### [facility] [address] [place] [address] Hemoglobin (Bld) [Mass/Vol] 13.4 g/dL Low 13.5-17.5 [facility] Comment on above: Performed By: #### 2 592996, 0784928, 8060007, 41266850, 776457325, 1459132, 5270387, 0864919, 9587120, 1500318 #### [facility] [address] [place], [place] [address] MCH (RBC) [Entitic mass] 32.7 pg Normal 27.0-34.0 [facility] Comment on above: Performed By: #### 2 609164, 6740488, 5679779, 99336497, 235094726, 5971817, 3282363, 2310229, 2730985, 6284787 #### [facility] [address] [place] [address] MCHC (RBC) [Mass/Vol] 33.0 g/dL Normal 31.4-36.0 [facility] Comment on above: Performed By: #### 2 887650, 5251101, 4302499, 26771848, 856720839, 8043168, 4395698, 5861204, 3732599, 7325369 #### [facility] [address] [place] [address] MCV (RBC) [Entitic vol] 99.1 fL Normal 80.0-100.0 [facility] Comment on above: Performed By: #### 2 360195, 4982135, 3791571, 17829311, 121049399, 8818076, 3653889, 4835160, 2428367, 4468140 #### [facility] [address] [place] [address] Platelet mean volume (Bld) [Entitic vol] 9.6 fL Normal 6.4-10.8 [facility] Comment on above: Performed By: #### 2 186421, 7442692, 5671271, 99864821, 878850841, 5658338, 6083622, 8815131, 2453345, 7691398 #### [facility] [address] [place] [address] Platelets (Bld) [#/Vol] 170.0 E9/L Normal 150.0-500.0 [facility] Comment on above: Performed By: #### 2 365267, 4062262, 5324294, 49145848, 544476656, 3317294, 0416114, 4974580, 4128191, 3495692 #### [facility] [address] [place] [address] 67[address] RBC (Bld) [#/Vol] 4.1 E12/L Low 4.3-5.9 [facility] Comment on above: Performed By: #### 2 046805, 2441891, 6879800, 75706296, 486758763, 6764216, 6815889, 0126273, 4664888, 0621387 #### [facility] [address] [place] [address] WBC corrected for nucl RBC Auto (Bld) [#/Vol] 4.4 E9/L Normal 4.0-11.0 [facility] Comment on above: Performed By: #### 2 395245, 4251358, 9340978, 76012868, 454420208, 0481165, 5629211, 3715171, 4326658, 0207564 #### [facility] [address] [place] [address] CHEMISTRYOrdered By: SYSTEM SYSTEM on 02-25-2023 Albumin [Mass/Vol] 4.1 g/dL Normal 3.3 - 5.0 gm/dL [facility] Albumin/Globulin [Mass ratio] 1.4 {ratio} Normal 1.1 - 2.2 [facility] Alk Phos 158 [iU]/d High 21 - 98 Int._Unit/L [facility] ALT 32 [iU]/d Normal 6 - 46 Int._Unit/L [facility] Anion gap [Moles/Vol] 12 mmol/L Normal 6 - 16 mEq/L R emisol Chem AST 25 [iU]/d Normal 5 - 43 Int._Unit/L [facility] Bili Total 0.3 mg/dL Normal 0.0 - 1.1 mg/dL [facility] Calcium [Mass/Vol] 8.9 mg/dL Normal 8.9 - 11. 1 mg/dL [facility] Chloride [Moles/Vol] 113 mmol/L High 101 - 1 11 mmol/L [facility] Cholesterol [Mass/Vol] 105 mg/dL Low 120 - 200 mg/dL [facility] Cholesterol in HDL [Mass/Vol] 40 mg/dL Invalid Interpretation Code [facility] Comment on above: Result Comment: '>= 60 LOW RISK' '<= 40 HIGH RISK' Cholesterol in LDL [Mass/Vol] 54 mg/dL Normal <=129mg/dL [facility] Cholesterol in VLDL [Mass/Vol] 16 mg/dL Normal 7 - 40 mg/dL [facility] CO2 [Moles/Vol] 22 mmol/L Normal 21 - 31 mmol/L [facility] Cobalamin (Vitamin B12) [Mass/Vol] 483 pg/mL Normal 50 - 1500 pg/mL [facility] Creatinine [Mass/Vol] 1.5 mg/dL High 0.5 - 1.3 mg/dL [facility] eGFR 55 mL/min/1.73 m2 Low >=59mL/min /1 .73 m2 [facility] Free T4 [Mass/Vol] 0.66 ng/dL Normal 0.58 - 1. 64 ng/dL [facility] Globulin (S) [Mass/Vol] 2.9 g/dL Normal 1.4 - 4.0 gm/dL [facility] Glucose [Mass/Vol] 90 mg/dL Normal 55 - 199 mg/dL [facility] Iron [Mass/Vol] 130 ug/dL Normal 35 - 153 mcg/dL [facility] Potassium [Moles/Vol] 4.8 mmol/L Normal 3.5 - 5.3 mmol/L [facility] Protein [Mass/Vol] 7.0 g/dL Normal 6.0 - 7.8 gm/dL [facility] Sodium [Moles/Vol] 142 mmol/L Normal 135 - 145 mmol/L [facility] Triglyceride [Mass/Vol] 81 mg/dL Normal <=149mg/dL [facility] TSH Qn 0.03 m[IU]/L Low 0.34 - 5.60 mcIU/mL [facility] Urea nitrogen [Mass/Vol] 26 mg/dL High 5 - 21 mg/dL [facility] Urea nitrogen/Creatinine [Mass ratio] 17 mg/mg Normal 10 - 20 [facility] Vitamin D 25 Hydroxy 50.9 ng/mL Normal 30.0 - 100.0 ng/mL [facility] Free T4on 02-25-2023 Free T4 [Mass/Vol] 0.66 ng/dL Normal 0.58-1.64 [facility] Comment on above: Performed By: #### 2 725018, 6715348, 2759178, 53201464, 593075799, 1599357, 2737092, 6672153, 2472081, 2979650 #### [facility] [address] [place] [address] HEMATOLOGYOrdered By: Clarence Srivastava on 02-25-2023 Erythrocyte distribution width (RBC) [Ratio] 13.2 % Normal 10.9 - 14.2 % [facility] Hematocrit (Bld) [Volume fraction] 40.6 % Normal 37.7 - 49.0 % [facility]eAutoSS Hemoglobin (Bld) [Mass/Vol] 13.4 g/dL Low 13.5 - 17.5 gm/dL [facility]eAutoSS MCH (RBC) [Entitic mass] 32.7 pg Normal 27.0 - 34.0 pg [facility]AutoSS MCHC (RBC) [Mass/Vol] 33.0 g/dL Normal 31.4 - 36.0 gm/dL [facility] MCV (RBC) [Entitic vol] 99.1 fL Normal 80.0 - 100.0 fL [facility] Platelet mean volume (Bld) [Entitic vol] 9.6 fL Normal 6.4 - 10.8 fL [facility] Platelets (Bld) [#/Vol] 170.0 E9/L Normal 150.0 - 500.0 E9/L [facility] RBC (Bld) [#/Vol] 4.1 E12/L Low 4.3 - 5.9 E12/L [facility] WBC corrected for nucl RBC Auto (Bld) [#/Vol] 4.4 E9/L Normal 4.0 - 11.0 E9/L [facility] Physician Orderon 02-25-2023 Physician Order [id number] 5#1.00TIFF Normal [facility] TSHon 02-25-2023 TSH Qn 0.03 m[IU]/L Low 0.34-5.60 [facility] Comment on above: Performed By: #### 2 796930, 0093191, 1036577, 24922462, 335974372, 4127576, 3820789, 5746010, 8739879, 7429816 #### [facility] [address] [place] [address] PSA Screen, Totalon 11-14-19 23 Prostate specific Ag [Mass/Vol] 0.5 ng/mL Normal 0.1-3.5 [facility] Comment on above: Result Comment: The concentration of PSA determined by different manufacturers can vary due to differences in assay methods and reagent specificity. Values obtained from different assay methods cannot be used interchangeably. The methodology used for this result was chemiluminescence using [employer]'s Access [employer] PSA reagent. Performed By: #### 1 [id number] ####[facility] [address] [place] [address] Physician Orderon 11-12-2022 Physician Order [id number] 7#1.00CD:127 Normal [facility] CNPNon 07-14-2022 CNPN Telephone ([facility]) HIRALUIS ARMANDOALETHEA FRASER ([id number]) 1970 M Date Time Provider Department 07/14/22 GO ESPINOZA [facility] During your visit today, we recorded the following information about you: Barry Brett Martinez 07/14/2022 11:31 AM Signed Grisel from [place] is calling Requesting notes from last OV. Also would like to know what follow up is? Wanted to schedule 6 mos visit. Please advise Grisel, phone [phone] Fax number, Megan Tse MD 07/14/2022 11:34 AM Signed Can you fax my note from last week's visit over to [facility]? Thanks Megan Tse MD 07/15/2022 9:20 AM Signed Debra on my team sent over the note yesterday. Follow up is TBD, his care will be reassigned. But 6 months is my recommendation still. Allergies As of Date: 07/14/2022 Noted Allergy Reaction ARSALANLIFY (ARIPIPRAZOLE) 02/01/2008 1 - Mental Status Change Comments: agressiveness PERTUSSIS VACCINES 12/13/2007 Date Reviewed: 07/08/2022 Reviewed by: Megan Tse MD - Fully Assessed Reason for Visit: Patient Question [0857] Prescriptions as of 07/15/2022 - alendronate (FOSAMAX) 70 mg tablet Take 1 tablet by mouth one time a week. on Wednesdays at 15:00 - loratadine (CLARITIN) 10 mg tablet Take 1 tablet by mouth once daily. for 3 days as needed for nasal congestion. - haloperidol (HALDOL) 5 mg tablet Take 3 tablets daily by mouth in the morning, 2 tablets in the evening, and 3 tablets at bedtime - bkunhyc-lqkctviuq-ae tamin D3 (OYSTER SHELL CALCIUM-VITAMIN D) 500 mg(1,250mg) -200 unit per tablet Take 1 tablet by mouth twice daily with meals. - levothyroxine (SYNTHROID) 150 mcg tablet Take 1 tablet by mouth once daily. - fluocinonide (LIDEX) 0.05 % cream Apply 1 application to affected area once each week. - OXcarbazepine 600 mg tablet Take 1 tablet by mouth three times daily. - PARoxetine 40 mg tablet Take 1.5 tablets by mouth once daily. - cloNIDine 0.1 mg tablet Take 1 tablet by mouth three times daily. 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] 08/02/2008 Autism spectrum disorder [F84.0] 08/02/2008 Impulse control disorder [F63.9] 08/16/2012 Intellectual disability [F79] 01/31/2021 Encounter Status:Closed by BARRY MCINTOSH on 07/14/22 [facility] 07-08-2022 [facility] Telephone ([facility]) ALETHEA LEI ([id number]) 1970 M Date Time Provider Department 07/08/22 GO [place] [facility] During your visit today, we recorded the following information about you: Barry Martinez 07/08/2022 10:39 AM Signed Records on your desk Allergies As of Date: 07/08/2022 Noted Allergy Reaction ABILIFY (ARIPIPRAZOLE) 02/01/2008 1 - Mental Status Change Comments: agressiveness PERTUSSIS VACCINES 12/13/2007 Date Reviewed: 07/08/2022 Reviewed by: Megan Tse MD - Fully Assessed Reason for Visit: Received Outside Medical Records [3576] Cmt: [facility] Prescriptions as of 07/16/2022 - alendronate (FOSAMAX) 70 mg tablet Take 1 tablet by mouth one time a week. on Wednesdays at 15:00 - loratadine (CLARITIN) 10 mg tablet Take 1 tablet by mouth once daily. for 3 days as needed for nasal congestion. - haloperidol (HALDOL) 5 mg tablet Take 3 tablets daily by mouth in the morning, 2 tablets in the evening, and 3 tablets at bedtime - cujewwx-aaqlhusgl-ax tamin D3 (OYSTER SHELL CALCIUM-VITAMIN D) 500 mg(1,250mg) -200 unit per tablet Take 1 tablet by mouth twice daily with meals. - levothyroxine (SYNTHROID) 150 mcg tablet Take 1 tablet by mouth once daily. - fluocinonide (LIDEX) 0.05 % cream Apply 1 application to affected area once each week. - OXcarbazepine 600 mg tablet Take 1 tablet by mouth three times daily. - PARoxetine 40 mg tablet Take 1.5 tablets by mouth once daily. - cloNIDine 0.1 mg tablet Take 1 tablet by mouth three times daily. 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 US KIDNEYS BLADDERon 04-2 023 US KIDNEYS BLADDER EXAMINATION: US KIDNEYS BLADDER HISTORY: Kidney disease COMPARISON: No relevant comparison available. TECHNIQUE: Ultrasound examination was performed of the bladder. FINDINGS: Right Kidney: Normal in size and contour. Diffuse increase in cortical echotexture. The cortex is thinned measuring 0.7 cm. Multiple echogenic foci, nonobstructing nephrolithiasis or cortical calcifications. Areas of anechoic echogenicity, the largest measuring 1.6 cm the lower pole, cortical cyst. Height: 5.8 cm Length: 9.2 cm Width: 5.7 cm Left Kidney:Normal in size and contour. Diffuse increase in cortical echotexture. The cortex is thinned measuring 0.5 cm. Multiple echogenic foci, nonobstructing nephrolithiasis or cortical calcifications. Areas of anechoic echogenicity, the largest measuring 1.5 cm lateral midpole, cortical cyst. Height: 6.4 cm Length: 11.4 cm Width: 5.8 cm Urinary bladder is markedly dilated measuring 1349 mL on prevoid imaging, post void residual 360 mL. The posterior urinary bladder wall is lobular and prominent, thickening versus layering debris Ureteral jets: Visualized bilaterally IMPRESSION: Bilateral cortical atrophy with diffusely increased echogenicity, consider medical renal disease Dilated urinary bladder with large postvoid residual Prominent lobular posterior urinary bladder wall, focal thickening versus layering debris Electronically authenticated by: NORMA ROSS Date: 2022-05-27 08:52 Normal [facility] XR PELVIS 1_2 VIEWSon 2022 XR PELVIS 1_2 VIEWS EXAMINATION: XR PELVIS 1_2 VIEWS, 04/11/2022 3:47 PM EST HISTORY: Pain in right leg COMPARISON: None. TECHNIQUE: Single view of the pelvis obtained. FINDINGS: Bones are of normal configuration, visualized joints are normally aligned, without appreciable displaced fracture, or dislocation given limitations of single view. There is mild degenerative change of the left hip with prominent superior marginal osteophytes. Degenerative change of the visualized spine. Soft tissues are grossly unremarkable. IMPRESSION: 1. No definite acute osseous abnormalities. Electronically authenticated by: JONAH MAJANO Date: 2022-04-14 08:21 Normal [facility] XR HIP RT 2 3V WO PELVISon 0 04-10-2022 XR HIP RT 2 3V WO PELVIS EXAM: XR HIP RT. HISTORY: . Pain in right leg . COMPARISON: None. TECHNIQUE: 2 views FINDINGS: No fracture or dislocation of the hip is noted. Joint spaces well-maintained. Surrounding soft tissues are unremarkable. IMPRESSION: Negative right hip. Electronically authenticated by: NORMA BROWN Date: 2022-04-10 08:41 Normal [facility] Glucose Poct Glucometerson 0 04-09-2022 Commemt1 Normal [facility] Comment on above: Result Comment: Glu2 : WILL NOTIFY DR/RN PERFORMED BY: [place] [id number] PATHOLOGIST MANAGER ENGINE CHRISTINE FERNÁNDEZ M.D. Performed By: #### G LULS #### Point of Care testing , Glucose [Mass/Vol] 58 mg/dL Off scale low [facility] Comment on above: Result Comment: [place] Glucose Reference Range is dependent on time and content of last meal. Glucose of more than 200 mg/dL in a nonstressed, ambulatory subject supports the diagnosis of Diabetes Mellitus. Performed By: #### G LULS #### Point of Care testing , PET tumor init tx strat sb-m ton 04-09-2022 PET tumor init tx strat sb-mt [facility] Main [place] [address] [place], [place] [id number] Nuclear Medicine Report Signed Patient: Alethea Lei MR#: [id number] : 1970 Acct:[id number] Age/Sex: 52 / M ADM Date: 04/09/22 Loc: Room: Type: [facility] Attending Dr: Nallely Parada MD Copies to: Panda De Guzman Jr, DO Nallely Parada MD Ordering Provider: Nallely Parada MD Date of Service: 04/09/22 PET/PET tumor init tx strat sb-mt: Pulmonary cavitary lesion, J98.4 PET/CT FUSION IMAGING CLINICAL INFORMATION: Pulmonary cavitary lesion COMPARISON : Outside CT chest 08/01/2021 TECHNIQUE: Noncontrasted CT scan from the base of the skull to the upper thigh followed by PET imaging. Multiplanar PET/CT fusion images. Blood Glucose : 58 mg/dL The F-18 FDG 13.01mCi. FINDINGS: Diffuse muscle activity is seen limiting evaluation. Neck: No focal abnormal activity is seen. Chest:The patient's known cavitary lesion involving the left lower lobe is once again present, SUV max of 1. No avid right lung lesion, mediastinal or hilar lymph nodes. Abdomen/pelvis: No focal abnormal activity is identified. Soft tissue/bones:No focal abnormal activity is seen within the osseous structures. CT findings: No pneumothorax. No pericardial or pleural effusions. No free air or free fluid. PET/PET tumor init tx strat sb-mt IMPRESSION: The patient's cavitary lesion involving the left lower lobe is not FDG avid. Finding is nonspecific. An atypical infectious process cannot be excluded. CT follow-up is recommended. No PET/CT evidence of distant metastatic disease. Impression dictated by: Panda De Guzman Jr., DCarolOCarol04/09/2022 1:09 PM Dictation Location: [place] [address] Transcribed By: [facility] 04/09/22 1309 Dictated By: Panda De Guzman Jr, DO 04/09/22 1259 Signed By: 04/09/22 1309 Normal [facility] Glucose Glucometer (BldC) [M ass/Vol]Ordered By: Nallely Parada on 03-12-2022 Glucose [Mass/Vol] 95 mg/dL [facility] Comment on above: Random Glucose Refer ence Range is dependent on time and content of last meal. Glucose of more than 200 mg/dL in a nonstressed, ambulatory subject supports the diagnosis of Diabetes Mellitus. Glucose Poct Glucometerson 0 03-12-2022 Glucose [Mass/Vol] 95 mg/dL Normal [facility] Comment on above: Result Comment: [place] om Glucose Reference Range is dependent on time and content of last meal. Glucose of more than 200 mg/dL in a nonstressed, ambulatory subject supports the diagnosis of Diabetes Mellitus. PERFORMED BY: [facility] [address] [place] [address] PATHOLOGIST MANAGER ENGINE CHRISTINE FERNÁNDEZ M.D. Performed By: #### G LULS #### Point of Care testing , CBC AUTO DIFFon 03-11-2022 BASO # 0.0 103/ul Normal 0.0-0.1 [facility] Comment on above: Performed By: #### C BC ####[facility] [address] [employer], [place] [address]VlCarol Guille Mayo Basophils/100 WBC (Bld) 0.6 % Normal 0.2-2.0 [facility] Comment on above: Performed By: #### C BC ####[facility] [address] [place] [address]Dr. Guille Mayo EO # 0.2 103/ul Normal 0.0-0.7 [facility] Comment on above: Performed By: #### C BC ####[facility] [address] [place], [place] [address]DrCarol Kylahizzy Mayo Eosinophils/100 WBC (Bld) 2.8 % Normal 0.9-7.0 [facility] Comment on above: Performed By: #### C BC ####[facility] [address] [place], [place] [address]Dr. Kylahizzy Mayo Erythrocyte distribution width (RBC) [Ratio] 12.6 % Normal 11.0-15.0 [facility] Comment on above: Performed By: #### C BC ####[facility] [address] [place], [place] [address]DrCarol Kylahizzy Mayo Hematocrit (Bld) [Volume fraction] 40.4 % Critically low 42.0-54.0 [facility] Comment on above: Performed By: #### C BC ####[facility] [address] [place], [place] [address]DrCarol Guille Mayo Hemoglobin (Bld) [Mass/Vol] 13.7 g/dL Critically low 14.0-18.0 [facility] Comment on above: Performed By: #### C BC ####[facility] [address] [place], [place] [address]DrCarol Kylahizzy Mayo IG # 0.02 10e3/ul Normal 0.00-0.03 [facility] Comment on above: Performed By: #### C BC ####[facility] [address] [place], [place] [address]DrCarol Mayo IG % 0.4 % Normal 0.0-0.5 [facility] Comment on above: Performed By: #### C BC ####[facility] [address] [place], [place] [address]DrCarol Mayo LYMPH # 1.1 103/ul Critically low 1.2-3.8 [facility] Comment on above: Performed By: #### C BC ####[facility] [address] [place] [address]DrCarol Mayo Lymphocytes/100 WBC (Bld) 20.8 % Normal 20.5-60.0 [facility] Comment on above: Performed By: #### C BC ####[facility] [address] [place] [address]DrCarol Mayo MANUAL DIFF REQ NO Normal [facility] Comment on above: Performed By: #### C BC ####[facility] [address] [place] [address]DrCarol Mayo MCH (RBC) [Entitic mass] 32.3 pg Normal 25.9-34.0 [facility] Comment on above: Performed By: #### C BC ####[facility] [address] [place], [place] [address]DrCarol Mayo MCHC (RBC) [Mass/Vol] 33.9 g/dL Normal 29.9-35.2 [facility] Comment on above: Performed By: #### C BC ####[facility] [address] [place], [place] [address]DrCarol Mayo MCV (RBC) [Entitic vol] 95.3 fL Critically high 80.0-94.0 [facility] Comment on above: Performed By: #### C BC ####[facility] [address] [place], [place] [address]DrCarol Mayo MONO # 0.4 103/ul Normal 0.3-0.8 [facility] Comment on above: Performed By: #### C BC ####[facility] [address] [place], [place] [address]DrCarol Mayo Monocytes/100 WBC (Bld) 7.4 % Normal 1.7-12.0 [facility] Comment on above: Performed By: #### C BC ####[facility] [address] [place], [place] [address]DrCarol Mayo NEUT # 3.7 103/ul Normal 1.4-6.5 [facility] Comment on above: Performed By: #### C BC ####[facility] [address] [place] [id number]. Guille Mayo Neutrophils/100 WBC (Bld) 68.0 % Normal 43.0-75.0 [facility] Comment on above: Performed By: #### C BC ####[facility] [address] [place] [id number]. Guille Mayo Platelet mean volume (Bld) [Entitic vol] 10.4 fL Normal 9.5-13.5 [facility] Comment on above: Performed By: #### C BC ####[facility] [address] [place] [id number]. Guille Mayo PLT 133 103/ul Critically low 150-450 [facility] Comment on above: Performed By: #### C BC ####[facility] [address] [place] [id number]. Guille Mayo RBC 4.24 106/ul Critically low 4.70-6.10 [facility] Comment on above: Performed By: #### C BC ####[facility] [address] [place] [id number]. Guille Mayo WBC 5.4 103/ul Normal 4.0-11.0 [facility] Comment on above: Performed By: #### C BC ####[facility] [address] [place] [id number] Mayo FREE T4on 03-11-2022 Free T4 [Mass/Vol] 0.68 ng/dL Critically low 0.76-1.46 [facility] Comment on above: Performed By: #### F T4 #### [facility] [address] [place] [id number] Guille Mayo LIPID PROFILEon 03-11-2022 CHOL-HDL RATIO NORM SEE BELOW Normal [facility] Comment on above: Result Comment: 3.3 - 4.4 LOW RISK 4.4 - 7.1 AVERAGE RISK 7.1 - 11.0 MODERATE RISK >11.0 HIGH RISK Performed By: #### L IPID, TSH, CMP #### [facility] [address] [place] [address] [address] Guille Mayo Cholesterol [Mass/Vol] 130 mg/dL Normal <=200 [facility] Comment on above: Performed By: #### L IPID, TSH, CMP #### [facility] [address] [place] [address] [address] Guille Mayo Cholesterol in HDL [Mass/Vol] 45 mg/dL Normal 40-60 [facility] Comment on above: Performed By: #### L IPID, TSH, CMP #### [facility] [address] [place] [address] [address] Guille Mayo Cholesterol in LDL [Mass/Vol] 67.6 mg/dL Normal [facility] Comment on above: Performed By: #### L IPID, TSH, CMP #### [facility] [address] [place] [address] [address] Guille Mayo Cholesterol.total/Cho lesterol in HDL [Mass ratio] 2.9 {ratio} Normal [facility] Comment on above: Performed By: #### L IPID, TSH, CMP #### [facility] [address] [place] [address] [address] Guille Mayo HDL NORMAL > or = 60 mg/dl - LOW CARDIOVASCULAR RISK <40 mg/dl - HIGH CARDIOVASCULAR RISK Normal [facility] Comment on above: Performed By: #### L IPID, TSH, CMP #### [facility] [address] [place] [address] [address] Guille Mayo LDL CALC NORMAL SEE BELOW Normal [facility] Comment on above: Result Comment: <100 mg/dl OPTIMAL 100 - 129 mg/dl NEAR OR ABOVE OPTIMAL 130 - 159 mg/dl BORDERLINE HIGH 160 - 189 mg/dl HIGH >190 mg/dl VERY HIGH Performed By: #### L IPID, TSH, CMP #### [facility] [address] [place] [address] [address] Guille Mayo Triglyceride [Mass/Vol] 87 mg/dL Normal <=150 [facility] Comment on above: Performed By: #### L IPID, TSH, CMP #### [facility] [address] [address] [address] Guille Mayo VLDL CALC 17.4 mg/dL Normal [facility] Comment on above: Performed By: #### L IPID, TSH, CMP #### [facility] [address] [address] [address] Guille Mayo PROF 14(COMP METB)on 023 Albumin [Mass/Vol] 3.8 g/dL Normal 3.4-5.0 [facility] Comment on above: Performed By: #### L IPID, TSH, CMP #### [facility] [address] [address] [address] Guille Mayo Albumin/Globulin [Mass ratio] 1.0 {ratio} Normal [facility] Comment on above: Performed By: #### L IPID, TSH, CMP #### [facility] [address] [place] [address] Dr. Guille Mayo ALP [Catalytic activity/Vol] 217 U/L Critically high 46-116 [facility] Comment on above: Performed By: #### L IPID, TSH, CMP #### [facility] [address] [address] [address] Guille Mayo ALT [Catalytic activity/Vol] 38 U/L Normal 16-63 [facility] Comment on above: Performed By: #### L IPID, TSH, CMP #### [facility] [address] [address] [address] Guille Mayo Anion gap [Moles/Vol] 12.2 mmol/L Normal [facility] Comment on above: Performed By: #### L IPID, TSH, CMP #### [facility] [address] [address] [address] Guille Mayo AST [Catalytic activity/Vol] 32 U/L Normal 15-37 [facility] Comment on above: Performed By: #### L IPID, TSH, CMP #### [facility] [address] [address] [address] Guille Mayo Bilirubin [Mass/Vol] 0.3 mg/dL Normal 0.2-1.0 [facility] Comment on above: Performed By: #### L IPID, TSH, CMP #### [facility] [address] [address] [address] Guille Mayo Calcium [Mass/Vol] 9.3 mg/dL Normal 8.5-10.1 [facility] Comment on above: Performed By: #### L IPID, TSH, CMP #### [facility] [address] [place] [address] Dr. Guille Mayo Chloride [Moles/Vol] 106 mmol/L Normal 98-107 [facility] Comment on above: Performed By: #### L IPID, TSH, CMP #### [facility] [address] [place] [address] Dr. Guille Mayo CO2 [Moles/Vol] 27.2 mmol/L Normal 21.0-32.0 [facility] Comment on above: Performed By: #### L IPID, TSH, CMP #### [facility] [address] [place] [address] Dr. Guille Mayo Creatinine [Mass/Vol] 1.31 mg/dL Critically high 0.70-1.30 [facility] Comment on above: Performed By: #### L IPID, TSH, CMP #### [facility] [address] [place] [address] Dr. Guille Mayo EGFR-AF FIJIAN >60 Normal >=60 [facility] Comment on above: Performed By: #### L IPID, TSH, CMP #### [facility] [address] [place] [address] Dr. Guille Mayo EGFR-NON AF FIJIAN 57 mL/min/1.73m2 Critically low >=60 [facility] Comment on above: Performed By: #### L IPID, TSH, CMP #### [facility] [address] [place] [address] Dr. Guille Mayo Globulin (S) [Mass/Vol] 3.8 g/dL Normal [facility] Comment on above: Performed By: #### L IPID, TSH, CMP #### [facility] [address] [place] [address] Dr. Guille Mayo Glucose [Mass/Vol] 98 mg/dL Normal 74-106 [facility] Comment on above: Performed By: #### L IPID, TSH, CMP #### [facility] [address] [address] [address] Guille Mayo Potassium [Moles/Vol] 4.4 mmol/L Normal 3.5-5.1 [facility] Comment on above: Performed By: #### L IPID, TSH, CMP #### [facility] [address] [address] [address] Guille Mayo Protein [Mass/Vol] 7.6 g/dL Normal 6.4-8.2 [facility] Comment on above: Performed By: #### L IPID, TSH, CMP #### [facility] [address] [address] [address] Guille Mayo Sodium [Moles/Vol] 141 mmol/L Normal 136-145 [facility] Comment on above: Performed By: #### L IPID, TSH, CMP #### [facility] [address] [address] [address] Guille Mayo Urea nitrogen [Mass/Vol] 27.0 mg/dL Critically high 7.0-18.0 [facility] Comment on above: Performed By: #### L IPID, TSH, CMP #### [facility] [address] [address] [address] Guille Mayo Urea nitrogen/Creatinine [Mass ratio] 20.6 mg/mg Normal [facility] Comment on above: Performed By: #### L IPID, TSH, CMP #### [facility] [address] [address] [address] Guille Mayo TSHon 03-11-2022 TSH 0.278 uIU/mL Critically low 0.358-3.740 [facility] Comment on above: Performed By: #### L IPID, TSH, CMP ####[facility] [address] [address]Dr. Guille Mayo XR ankle RT min 3V*on 2021 XR ankle RT min 3V* [facility] [address] [place] [address] XRay Report Signed Patient: Alethea Lei MR#: [id number] : 1970 Acct:[id number] Age/Sex: 51 / M ADM Date: 01/06/22 Loc: [facility] Room: Type: [facility] Attending Dr: Cj Gayle DO Copies to: Cj Gayle DO Ordering Provider: Cj Gayle DO Date of Service: 01/06/22 XR/XR ankle RT min 3V*: Displaced fracture of lateral malleolus of right fibula, sub 3views Rightankle COMPARISON:11/22/21 HISTORY: Status post ORIF RIGHT lateral malleolus fracture No hardware failure. Adequate bony alignment. Continued healing of distal fibular fracture. XR/XR ankle RT min 3V* IMPRESSION: Healing fracture. No hardware failure. Impression dictated by: Geovanny Magallanes M.D.01/06/2022 3:54 PM Dictation Location: [place] [address] Transcribed By: [facility] 01/06/22 1554 Dictated By: Geovanny Magallanes DO 01/06/22 1553 Signed By: 01/06/22 1554 Normal [facility] XR ankle RT min 3V* [facility] [employer] Other XR ankle RT min 3V* [facility] [employer] Other XR ankle RT min 3V* [address] [place] [address] [employer] Other XR ankle RT min 3V* [place] [address] [facility] [employer] Other XR ankle RT min 3V* XRay Report [facility] [employer] Other XR ankle RT min 3V* Signed [facility] [employer] Other XR ankle RT min 3V* Patient: Alethea Lei MR#: [id number] [facility] [employer] Other XR ankle RT min 3V* : 1970 Acct:[id number] [employer] Other XR ankle RT min 3V* Age/Sex: 51 / M ADM Date: 01/06/22 [employer] Other XR ankle RT min 3V* Loc: [facility] Room: Type: [facility] [employer] Other XR ankle RT min 3V* Attending Dr: Cj Gayle DO [employer] Other XR ankle RT min 3V* Copies to: Cj Gayle DO [employer] Other XR ankle RT min 3V* Ordering Provider: Cj Gayle DO [employer] Other XR ankle RT min 3V* Date of Service: 01/06/22 [employer] Other XR ankle RT min 3V* XR/XR ankle RT min 3V*: Displaced fracture of lateral malleolus of right [employer] Other XR ankle RT min 3V* fibula, sub [place] [employer] Other XR ankle RT min 3V* 3views Rightankle [employer] Other XR ankle RT min 3V* COMPARISON:11/22/21 [employer] Other XR ankle RT min 3V* HISTORY: Status post ORIF RIGHT lateral malleolus fracture [employer] Other XR ankle RT min 3V* No hardware failure. Adequate bony alignment. Continued healing of distal fibular fracture. [employer] Other XR ankle RT min 3V* XR/XR ankle RT min 3V* [employer] Other XR ankle RT min 3V* IMPRESSION: Healing fracture. No hardware failure. [employer] Other XR ankle RT min 3V* Impression dictated by: Geovanny Magallanes M.D.01/06/2022 3:54 PM [employer] Other XR ankle RT min 3V* Dictation Location: [facility]-- [employer] Other XR ankle RT min 3V* Transcribed By: WENDY 01/06/22 155 [employer] Other XR ankle RT min 3V* Dictated By: Geovanny Magallanes DO 01/06/22 1553 [employer] Other XR ankle RT min 3V* Signed By: [employer] Other XR ankle RT min 3V* 01/06/22 1551 No rt [employer] Other Progress Noteson 12-04-2021 Neon Pumper Authentication Interface Message Text Normal [facility] Neon Pumper Authentication Interface Message Text ----- Saturday, December 04, 2021 at 11:22:04 AM ----- ----- Provider: [id number] Redmond Hygienist -- Clinic: [place] ----- [facility], Pt is ready for tx. Pt presented with caries Radiograph taken today: none Discussed the medical necessity of the problem with the pt. Instructions given to pt. Caregiver understood the situation and is okay with medications for today. Pt will come back should things get worse. Guardianship: PARENTS - Nabila Iniguez [address] [address] / Email: [email or web address] Communicated with caregiver that the pt was placed on the OR list and we will call with appt. Limited exam completed by Dr. Noel STEPHENS. OR ----- Signed on Saturday, December 04, 2021 at 11:51:43 AM ----- ----- Provider: [id number] Tucker Myers DDS -- Clinic: [place] ----- Normal [facility] XR ankle RT min 3V*on 2021 XR ankle RT min 3V* [facility] [address] [address] XRay Report Signed Patient: Alethea Lei MR#: [id number] : 1970 Acct:[id number] Age/Sex: 51 / M ADM Date: 11/22/21 Loc: [facility] Room: Type: [facility] Attending Dr: Cj Gayle DO Copies to: Cj Gayle DO Ordering Provider: Cj Gayle DO Date of Service: 11/22/21 XR/XR ankle RT min 3V*: Displaced fracture of lateral malleolus of right fibula, sub RIGHT ANKLE - 3 views CLINICAL HISTORY: Follow-up ORIF right lateral malleolar fracture COMPARISON: Right ankle 10/16/2021 FINDINGS: Cast material is now been removed. Diffuse soft tissue swelling. No hardware complication involving the distal fibula. Fracture lines are less conspicuous suggestive of healing. Medial malleolar fracture is unchanged. Ankle mortise appears intact. Plantar spurring. XR/XR ankle RT min 3V* IMPRESSION: HEALING INTERNALLY FIXATED DISTAL FIBULAR FRACTURE. Impression dictated by: Panda De Guzman Jr., MunaOCarol11/22/2021 2:39 PM Dictation Location: [place] [address] Transcribed By: [facility] 11/22/21 1439 Dictated By: Panda De Guzman Jr, DO 11/22/21 1438 Signed By: 11/22/21 1439 Normal [facility] XR ankle RT min 3V*on 2021 XR ankle RT min 3V* [facility] Main [address] [address] XRay Report Signed Patient: Alethea Lei MR#: [id number] : 1970 Acct:[id number] Age/Sex: 51 / M ADM Date: 10/16/21 Loc: [facility] Room: Type: REG CLI Attending Dr: Cj Gayle DO Copies to: Cj Gayle DO Ordering Provider: Cj Gayle DO Date of Service: 10/16/21 XR/XR ankle RT min 3V*: Displaced fracture of lateral malleolus of right fibula, sub RIGHT ANKLE - 3 views CLINICAL HISTORY: ORIF right lateral malleolus fracture. Follow up COMPARISON: Intraoperative study 09/24/2021 FINDINGS: Cast material is in place limiting evaluation. Hardware fixation involving the distal fibula with syndesmotic screw without evidence of hardware complication. Fracture line is still evident suggestive of incomplete healing. Medial malleolar fracture is unchanged.. Soft tissue swelling. Plantar spurring. XR/XR ankle RT min 3V* IMPRESSION: NO EVIDENCE OF HARDWARE COMPLICATION. Impression dictated by: Panda De Guzman Jr., D.OCarol10/16/2021 1:10 PM Dictation Location: RADIO-PC-11 Transcribed By: [facility] 10/16/21 1310 Dictated By: Panda De Guzman Jr, DO 10/16/21 1307 Signed By: 10/16/21 1310 Normal [facility] XR ankle RT min 3V* [facility] [employer] Other XR ankle RT min 3V* [facility] [employer] Other XR ankle RT min 3V* [address] [place] [address] [employer] Other XR ankle RT min 3V* [place] [address] [employer] Other XR ankle RT min 3V* XRay Report [facility] [employer] Other XR ankle RT min 3V* Signed [employer] Other XR ankle RT min 3V* Patient: Alethea Lei MR#: [id number] [employer] Other XR ankle RT min 3V* : 1970 Acct:[id number] [employer] Other XR ankle RT min 3V* Age/Sex: 51 / M ADM Date: 10/16/21 [employer] Other XR ankle RT min 3V* Loc: [place] Room: Type: [facility] [employer] Other XR ankle RT min 3V* Attending Dr: Cj Gayle DO [employer] Other XR ankle RT min 3V* Copies to: Cj Gayle, DO [employer] Other XR ankle RT min 3V* Ordering Provider: Cj Gayle, DO [employer] Other XR ankle RT min 3V* Date of Service: 10/16/21 [employer] Other XR ankle RT min 3V* XR/XR ankle RT min 3V*: Displaced fracture of lateral malleolus of right [employer] Other XR ankle RT min 3V* fibula, sub [facility] Other XR ankle RT min 3V* RIGHT ANKLE - 3 views [employer] Other XR ankle RT min 3V* CLINICAL HISTORY: ORIF right lateral malleolus fracture. Follow up [employer] Other XR ankle RT min 3V* COMPARISON: Intraoperative study 09/24/2021 [employer] Other XR ankle RT min 3V* FINDINGS: [employer] Other XR ankle RT min 3V* syndesmotic screw without evidence of hardware complication. Fracture line is still evident [employer] Other XR ankle RT min 3V* suggestive of incomplete healing. Medial malleolar fracture is unchanged.. Soft tissue swelling. [employer] Other XR ankle RT min 3V* Plantar spurring. [employer] Other XR ankle RT min 3V* XR/XR ankle RT min 3V* [employer] Other XR ankle RT min 3V* IMPRESSION: [employer] [facility] Other XR ankle RT min 3V* NO EVIDENCE OF HARDWARE COMPLICATION. [employer] Other XR ankle RT min 3V* Impression dictated by: Panda De Guzman Jr., D.O.10/16/2021 1:10 PM [employer] Other XR ankle RT min 3V* Dictation Location: [facility]-- [employer] Other XR ankle RT min 3V* Transcribed By: PWS 10/16/21 1310 [employer] Other XR ankle RT min 3V* Dictated By: Panda De Guzman Jr DO 10/16/21 1307 [employer] Other XR ankle RT min 3V* Signed By: [employer] Other XR ankle RT min 3V* 10/16/21 1310 No [facility] Other ECG 12 lead ECGon 09-24-2021 ECG 12 lead ECG [facility] [place] [address] [place] [address] Electrocardiograph Report Signed Patient: Alethea Lei MR#: [id number] : 1970 Acct:[id number] Age/Sex: 51 / M ADM Date: 09/24/21 Loc: [place] Room: Type: [facility] Attending Dr: Cj Gayle DO Ordering Provider: James Aden MD Date of Service: 09/24/2104/16/1209 ECG/ECG 12 lead ECG: preop Copies to: Test Reason : Blood Pressure : / mmHG Vent. Rate : 080 BPM Atrial Rate : 080 BPM P-R Int : 146 ms QRS Dur : 078 ms QT Int : 382 ms P-R-T Axes : 035 017 026 degrees QTc Int : 440 ms Normal sinus rhythm Normal ECG No previous ECGs available Confirmed by ZAFAR SPICER DO ([id number]) on 09/24/2021 7:09:06 PM Referred By: Electronically Signed By:ZAFAR SPICER DO Transcribed By: MUS Signed By Zafar Spicer DO 09/24 1900 Normal [facility] XR ankle RT min 3V*on 2021 XR ankle RT min 3V* [facility] [place] [address] [place], [place] [address] XRay Report Signed Patient: Alethea Lei MR#: [id number] : 1970 Acct:[id number] Age/Sex: 51 / M ADM Date: 09/24/21 Loc: [place] Room: Type: [facility] Attending Dr: Cj Gayle DO Copies to: Cj Gayle DO Ordering Provider: Cj Gayle DO Date of Service: 09/24/21 XR/XR ankle RT min 3V*: RIGHT ANKLE ORIF Intraoperative study. Reason for exam: ORIF right ankle. FINDINGS: 14 images were obtained intraoperatively. No radiologist was present at time of procedure. 22 seconds of fluoroscopic time was utilized. Fixation is seen involving the distal fibula with syndesmotic screw placement. XR/XR ankle RT min 3V* IMPRESSION: Intraoperative study. Impression dictated by: Panda De Guzman Jr., DCarolOCarol09/24/2021 4:10 PM Dictation Location: [place] [address] Transcribed By: [facility] 09/24/21 1610 Dictated By: Panda De Guzman Jr, DO 09/24/21 1609 Signed By: 09/24/21 1610 Normal [facility] SARS-CoV-2 (COVID-19) RNA GARY+probe Ql (Unsp spec) Negative Normal Negative [facility] Comment on above: Order Comment: Comme nt OR 09/24/21 Healthcare Worker?: N Result Comment: Testing for SARS-CoV-2 by RT-PCR This test was developed and its performance characteristics determined by [employer] and validated at the [facility]. This test has not been FDA cleared or approved. This test has been authorized by FDA under an Emergency Use Authorization (EUA). This test has been validated in accordance with the FDA's Guidance Document (Policy for Diagnostics Testing in Laboratories Certified to Perform High Complexity Testing under CLIA prior to Emergency Use Authorization for Coronavirus Disease-2019 during the Public Health Emergency) issued on May 26, 2019. This test is only authorized for the duration of time the declaration that circumstances exist justifying the authorization of the emergency use of in vitro diagnostic tests for detection of SARS-CoV-2 virus and/or diagnosis of COVID-19 infection under section 564(b)(1) of the Act, 21 U.S.C. 360bbb-3(b)(1), unless the authorization is terminated or revoked sooner. PERFORMED BY: [facility] [address] [id number] PATHOLOGIST MANAGER ENGINE CHRISTINE FERNÁNDEZ M.D. Performed By: #### C OVID 19 [facility] #### [facility] [address] COVID-19 Positive/NegativeOr dered By: Cj Gayle on 09-23-2021 SARS-CoV-2 (COVID-19) N gene GARY+probe Ql (Resp) Negative Negative [facility] Comment on above: Testing for SARS-CoV -2 by RT-PCR This test was developed and its performance characteristics determined by [employer] and validated at the [facility]. This test has not been FDA cleared or approved. This test has been authorized by FDA under an Emergency Use Authorization (EUA). This test has been validated in accordance with the FDA's Guidance Document (Policy for Diagnostics Testing in Laboratories Certified to Perform High Complexity Testing under CLIA prior to Emergency Use Authorization for Coronavirus Disease-2019 during the Public Health Emergency) issued on May 26, 2019. This test is only authorized for the duration of time the declaration that circumstances exist justifying the authorization of the emergency use of in vitro diagnostic tests for detection of SARS-CoV-2 virus and/or diagnosis of COVID-19 infection under section 564(b)(1) of the Act, 21 U.S.C. 360bbb-3(b)(1), unless the authorization is terminated or revoked sooner. CBC AUTO DIFFon 09-18-2021 BASO # 0.0 103/ul Normal 0.0-0.1 [facility] Comment on above: Performed By: #### C BC ####[facility] [address] [place] [address]Dr. Guille Mayo Basophils/100 WBC (Bld) 0.2 % Normal 0.2-2.0 [facility] Comment on above: Performed By: #### C BC ####[facility] [address] [place], [place] [address]Dr. Guille Mayo EO # 0.1 103/ul Normal 0.0-0.7 [facility] Comment on above: Performed By: #### C BC ####[facility] [address] [place], [place] [address]Dr. Guille Mayo Eosinophils/100 WBC (Bld) 1.2 % Normal 0.9-7.0 [facility] Comment on above: Performed By: #### C BC ####[facility] [address] [place], [place] [address]Dr. Guille Mayo Erythrocyte distribution width (RBC) [Ratio] 12.2 % Normal 11.0-15.0 [facility] Comment on above: Performed By: #### C BC ####[facility] [address] [place], [place] [address]Dr. Guille Mayo Hematocrit (Bld) [Volume fraction] 38.0 % Critically low 42.0-54.0 [facility] Comment on above: Performed By: #### C BC ####[facility] [address] [place], [place] [address]Dr. Guille Mayo Hemoglobin (Bld) [Mass/Vol] 12.8 g/dL Critically low 14.0-18.0 [facility] Comment on above: Performed By: #### C BC ####[facility] [address] [place], [place] [address]Dr. Guille Mayo IG # 0.03 10e3/ul Normal 0.00-0.03 [facility] Comment on above: Performed By: #### C BC ####[facility] [address] [place], [place] [address]Dr. Guille Mayo IG % 0.4 % Normal 0.0-0.5 [facility] Comment on above: Performed By: #### C BC ####[facility] [address] [place], [place] [address]Dr. Guille Mayo LYMPH # 0.9 103/ul Critically low 1.2-3.8 [facility] Comment on above: Performed By: #### C BC ####[facility] [address] [place] [address]Dr. Guille Mayo Lymphocytes/100 WBC (Bld) 10.7 % Critically low 20.5-60.0 [facility] Comment on above: Performed By: #### C BC ####[facility] [address] [place], [place] [address]Dr. Guille Mayo MANUAL DIFF REQ NO Normal [facility] Comment on above: Performed By: #### C BC ####[facility] [address] [place], [place] [address]Dr. Guille Mayo MCH (RBC) [Entitic mass] 32.2 pg Normal 25.9-34.0 [facility] Comment on above: Performed By: #### C BC ####[facility] [address] [place], [place] [address]DrCarol Mayo MCHC (RBC) [Mass/Vol] 33.7 g/dL Normal 29.9-35.2 [facility] Comment on above: Performed By: #### C BC ####[facility] [address] [place], [place] [address]Dr. Guille aMyo MCV (RBC) [Entitic vol] 95.7 fL Critically high 80.0-94.0 [facility] Comment on above: Performed By: #### C BC ####[facility] [address] [place], [place] [address]Dr. Guille Mayo MONO # 0.7 103/ul Normal 0.3-0.8 [facility] Comment on above: Performed By: #### C BC ####[facility] [address] [place], [place] [address]Dr. Guille Mayo Monocytes/100 WBC (Bld) 9.0 % Normal 1.7-12.0 [facility] Comment on above: Performed By: #### C BC ####[facility] [address] [place], [place] [address]Dr. Guille Mayo NEUT # 6.4 103/ul Normal 1.4-6.5 [facility] Comment on above: Performed By: #### C BC ####[facility] [address] [place] [address]Dr. Guille Mayo Neutrophils/100 WBC (Bld) 78.5 % Critically high 43.0-75.0 [facility] Comment on above: Performed By: #### C BC ####[facility] [address] [place] [id number]. Guille Mayo Platelet mean volume (Bld) [Entitic vol] 9.9 fL Normal 9.5-13.5 [facility] Comment on above: Performed By: #### C BC ####[facility] [address] [place] [id number]. Guille Mayo PLT 152 103/ul Normal 150-450 [facility] Comment on above: Performed By: #### C BC ####[facility] [address] [place] [id number]. Guille Mayo RBC 3.97 106/ul Critically low 4.70-6.10 [facility] Comment on above: Performed By: #### C BC ####[facility] [address] [place] [id number]. Guille Mayo WBC 8.1 103/ul Normal 4.0-11.0 [facility] Comment on above: Performed By: #### C BC ####[facility] [address] [place] [id number]. Guille Mayo CT HEAD WO CONon 09-18-2021 CT HEAD WO CON EXAMINATION: CT HEAD WO CON HISTORY: HEADACHE after falling COMPARISON: CT head 10/11/2020 TECHNIQUE: Axial CT images were obtained without IV contrast. Dose reduction techniques were achieved by using automated exposure control and/or adjustment of mA and/or kV according to patient size and/or use of iterative reconstruction technique. FINDINGS: BRAIN: Stable chronic intraparenchymal calcifications. No edema, hemorrhage, mass, acute infarction, or inappropriate atrophy. CSF SPACES: No hydrocephalus, subarachnoid hemorrhage, or mass. Appropriate for age. SKULL: No fracture, mass, or other significant visible lesion. SINUSES: No significant mucosal thickening or fluid on the limited views. ORBITS: No appreciable abnormality on the limited views. OTHER: Negative IMPRESSION: 1. No intracranial hemorrhage or appreciable acute abnormality. 2. No fracture of the calvarium or scalp hematoma. Electronically authenticated by: SANDY DÍAZ Date: 2021-09-18 15:44 Normal [facility] Covid-19 PCR (CVDTBH)on 08-24 SARS-CoV-2 (COVID-19) RNA GARY+probe Ql (Unsp spec) Not detected Normal NOT DETECTED [facility] Comment on above: Result Comment: When diagnostic testing is negative, the possibility of a false negative should be considered in the context of a patient's recent exposures and the presence of clinical signs and symptoms consistent with SARS-CoV-2. This test is not yet approved or cleared by the [place] FDA. When there are no FDA-approved or cleared tests available, and other criteria are met, FDA can make tests available under an emergency access mechanism called an Emergency Use Authorization (EUA). The EUA for this test is supported by the Pathology Manager of Health and Human Service's declaration that circumstances exist to justify the emergency use of in vitro diagnostics for the detection and/or diagnosis of the virus that causes COVID-19. This EUA will remain in effect for the duration of the COVID-19 declaration justifying emergency of IVDs, unless it is terminated or revoked by the FDA (after which the test may no longer be used). Performed By: #### C VDTBH ####[facility] [address] [place] [address]DrCarol Mayo PROF CHEM 8 (BAS METB)on Anion gap [Moles/Vol] 12.4 mmol/L Normal [facility] Comment on above: Performed By: #### B MP ####[facility] [address] [place] [id number]. Guille Mayo Calcium [Mass/Vol] 8.7 mg/dL Normal 8.5-10.1 [facility] Comment on above: Performed By: #### B MP ####[facility] [address] [place] [id number] Mayo Chloride [Moles/Vol] 107 mmol/L Normal 98-107 [facility] Comment on above: Performed By: #### B MP ####[facility] [address] [place] [address]Dr. Guille Mayo CO2 [Moles/Vol] 28.0 mmol/L Normal 21.0-32.0 [facility] Comment on above: Performed By: #### B MP ####[facility] [address] [place] [address]Dr. Guille Mayo Creatinine [Mass/Vol] 1.45 mg/dL Critically high 0.70-1.30 [facility] Comment on above: Performed By: #### B MP ####[facility] [address] [place], [place] [address]Dr. Guille Myao EGFR-AF FIJIAN >60 Normal >=60 [facility] Comment on above: Performed By: #### B MP ####[facility] [address] [place], [place] [address]Dr. Guille Mayo EGFR-NON AF FIJIAN 51 mL/min/1.73m2 Critically low >=60 [facility] Comment on above: Performed By: #### B MP ####[facility] [address] [place], [place] [address]Dr. Guille Mayo Glucose [Mass/Vol] 87 mg/dL Normal 74-106 [facility] [place] Comment on above: Performed By: #### B MP ####[facility] [address] [place], [place] [address]Dr. Guille aMyo Potassium [Moles/Vol] 4.4 mmol/L Normal 3.5-5.1 [facility] Comment on above: Performed By: #### B MP ####[facility] [address] [place], [place] [address]Dr. Guille Mayo Sodium [Moles/Vol] 143 mmol/L Normal 136-145 [facility] [place] Comment on above: Performed By: #### B MP ####[facility] [address] [place], [place] [address]Dr. Guille Mayo Urea nitrogen [Mass/Vol] 24.0 mg/dL Critically high 7.0-18.0 [facility] Comment on above: Performed By: #### B MP ####[facility] [address] [employer], [place] [address]Tl. Guille Mayo Urea nitrogen/Creatinine [Mass ratio] 16.6 mg/mg Normal [facility] Comment on above: Performed By: #### B MP ####[facility] [address] [employer], [place] [address]Co. Guille Mayo XR CHEST 1 Von 09-18-2021 XR CHEST 1 V EXAMINATION: XR CHEST 1 V HISTORY: COUGH , fall COMPARISON: XR chest 10/10/2020, CT chest 08/01/2021 FINDINGS: LUNGS: Underexpanded lungs with 2.1 cm lobular opacity within lateral left lung base. VASCULATURE: No increased pulmonary vasculature. PLEURA: No pneumothorax, effusion, or pleural thickening. CARDIAC: No cardiomegaly or cardiac silhouette abnormality. MEDIASTINUM: No visible mass or adenopathy. BONES: No fracture or visible bone lesion. OTHER: Negative. IMPRESSION: 1. Left lower lobe mass, evaluated and described on the 08/01/2021 CT study. PET imaging versus biopsy recommended. 2. Low lung volume examination. No appreciable acute abnormality. Electronically authenticated by: SANDY DÍAZ Date: 2021-09-18 15:36 Normal [facility] CT CHEST WO CONon 08-02-2021 CT CHEST WO CON EXAMINATION: CT CHEST WO CON HISTORY: Osteoporosis , lung nodule COMPARISON: 10/10/2019 TECHNIQUE: Multi-planar CT images were created with IV contrast. Axial, Coronal, and Sagittal images. Dose reduction techniques were achieved by using automated exposure control and/or adjustment of mA and/or kV according to patient size and/or use of iterative reconstruction technique. FINDINGS: LUNGS: Cavitary lesion in the left lower lobe stable in size measuring 2.4 x 1.8 cm within the lesion the largest soft tissue component measures 2.1 x 1.3 cm on axial image #71 previously measuring 1.8 x 0.9 cm. Mild dependent atelectasis. Scattered punctate pulmonary nodules, stable. PLEURA: No mass, effusion, or pneumothorax. VASCULATURE: No abnormality. CON: No mass or adenopathy. MEDIASTINUM: No mass or adenopathy. CARDIAC: No enlargement, pericardial thickening, or significant calcification. AORTA: No aneurysm or dissection. CHEST WALL: No mass or axillary adenopathy. BONES: No bone lesion or fracture. LIMITED ABDOMEN: Numerous hypodensities throughout the liver, grossly stable but indeterminate OTHER: Negative. IMPRESSION: Significant interval increase in soft tissue component of a left lower lobe cavitary lung nodule. Tissue sampling is recommended to exclude a malignancy Electronically authenticated by: NORMA ROSS Date: 2021-08-02 08:52 Normal [facility] XR DEXA BONE DENSITYon 07-31 XR DEXA BONE DENSITY EXAMINATION: XR DEX A BONE DENSITY, 07/31/2021 9:49 AM EDT HISTORY: Osteoporosis COMPARISON: 2019, 2017, 2015 TECHNIQUE: Dual-energy X-ray absorptiometry (DEXA) bone density study performed for the axial skeleton. FINDINGS: Bone mineral density AP spine L2-L4 measures 1.238 g/sq cm. 1.9% reduction from the prior exam. T score 0. WHO classification: Normal Lowest bone mineral densities the left femoral neck measuring 0.745 g/sq cm. T score -2.5. WHO classification: Osteoporosis IMPRESSION: Osteoporosis. High fracture risk Electronically authenticated by: NORMA ROSS Date: 2021-07-31 16:14 Normal [facility] Anesthesia Attestationon Neon Pumper Authentication Interface Message Text Anesthesia Attestation ATTESTATION OF INFORMED CONSENT FOR ANESTHESIA Anesthesia options were discussed with the patient and/or legal community service representative. The risks, benefits and alternatives were reviewed. Questions regarding anesthesia were answered. Patient and/or legal community service representative knows such anesthetics and procedures may be performed by Resident physicians, Certified Anesthesiologist Assistants, or Certified Nurse Anesthetists under the supervision of a physician. The patient /or the patient's legal community service representative agree with the plan for anesthesia. Normal [facility] Anesthesia Postprocedure Zo luationon 01-25-2021 Neon Pumper Authentication Interface Message Text Anesthesia Postoperative Assessment: Vital Signs (most recent): BP 175/97 Pulse 72 Temp 36.1 ???C (96.9 ???F) (Temporal) Resp 13 Wt 195 lb (88.5 kg) SpO2 93% Anesthesia Post Evaluation Patient location during evaluation: PACU Patient participation: complete - patient participated Level of consciousness: awake and alert Pain score: 0 Pain management: adequate Airway patency: patent Cardiovascular status: acceptable, hemodynamically stable, blood pressure returned to baseline and stable Respiratory status: acceptable and Patient breathing comfortably on room air Hydration status: normal PONV: No nausea/vomiting reported I was personally responsible for performing the postop evaluation. ANESTHESIA COMPLICATIONS: No complications documented. Normal [facility] Anesthesia [facility] 01-25-2021 Neon Pumper Authentication Interface Message Text Patient taken to PACU. Patient was awake, comfortable and stable on arrival. Anesthesia Transfer of Care Note Past Medical History: Past Medical History: Diagnosis Date * Anemia OSH H + P 01/08/2021 * CKD (chronic kidney disease), stage I OSH H + P 01/08/2021 * Dental caries * Moderate intellectual disability OSH H + P 01/08/2021 * Tuberous sclerosis (HCC) OSH H + P 01/08/2021 Sleep Apnea/Positive STOP-BANG: No Problem List: Patient Active Problem List: Dental caries [K02.9] Past Surgical History: There is no previous surgical history on file. Allergies: Pertussis vaccines Basic Operating Room Facts: Surgeon(s): Simi Edwards DDS Anesthesiologist: Jero Peralta MD Metal Smelter: Anson Schwartz MD DENTAL RESTORATIONS (Bilateral ) EXCISION, LESION, ORAL (Right ) Intraoperative Events: No acute event ASA: 3 EBL: 5 mL Urine Not documented Lactated Ringers and NaCl 0.9%: Fluid Totals (Filter: LR and NaCl 0.9% Medications Shown) Medication Calculated Total Lactated Ringers 1,100 mL / 2 bags Cell Saver: Not documented Blood Volume Values: Blood Products None MTP Blood: MTP PRBC: Not documented MTP FFP: Not documented MTP PLT: Not documented MTP Cryo: Not documented MTP Whole Blood: Not documented Current Vasoactive Medications: {Vasoactive Medications: None Lines, Drains, Airways Peripheral IV Access: 01/25/21 0954 22 gauge Right Hand (Active) Site Assessment WNL 01/25/21 0954 Airway Insertion Details [REMOVED] Advanced Airway: ETT, Nasal;Cuffed #7 (Removed) 01/25/21 1034 Pre-Oxygenation/ Induction: Mask Rapid Sequence Induction?: Mask Ventilation: Easy Blade size: Mac 3 Visualization: Grade 2 Airway Type: ETT, Nasal;Cuffed Airway Size: #7 Post Insertion Assessment: Confirmation: Equal bilateral breath sounds, CO2 confirmed # Attempts >1: Special Equipment: Jaja forceps Present on Admission?: Previously Removed / Not Present: Removal Reason: Not Removed at Discharge: Removed 01/25/21 1213 Location (cm) 28 01/25/21 1056 Measured from: Naris 01/25/21 1056 Secured via: Taped 01/25/21 1056 Site Assessment WNL 01/25/21 1056 All non-working IVs have been removed: N/A Laboratory Data: CBC (last 3 years, up to 5 values) None Basic Metabolic Panel None Basic Metabolic Panel None No results found for: INR No result for BNP LFT's (last 3 years, up to 5 values) None Arterial Blood Gases None Hand off Completed: Yes 1. The patient was identified. 2. Pertinent medical history was relayed. 3. A brief discussion was had about any pertinent surgical/ procedural issues. 4. Intraoperative/ anesthetic management issue and concerns were discussed. 5. Plans for the early post-operative period relayed. 6. An opportunity for questions and acknowledgment of understanding of the report was received. Anson Schwartz MD Normal [facility] Blood Attestationon 01-26-20 Neon Pumper Authentication Interface Message Text Blood Attestation ATTESTATION OF INFORMED CONSENT FOR BLOOD The transfusion of blood and/or blood components were discussed with the patient and/or legal community service representative. The risks, benefits and alternatives were reviewed. Questions regarding blood transfusions were answered. The patient /or the patient's legal community service representative agree with the plan for transfusion of blood and/or blood components. 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 Procedures: Full mouth X-ray 07910 Exam 72078 Cleaning 66396 Restorationism 43006 Fluoride 73675 Excisional biopsy 21893 No data filed Surgeon(s): Surgeon(s): Simi Edwards DDS Staff: Tucking Machine Operator Nurse: Deborah Chapman RN; Crystal Anderson RN Loss Control Manager: Carolyn López DDS Anesthesia: General Anesthesiologist: Jero Peralta MD Metal Smelter: Anson Schwartz MD Specimen(s): ID Type Source Tests Collected by Time Destination 1 : Traumatic fibroma right lower cheeak Tissue Mouth SPECIMEN FOR SURGICAL PATH Simi Edwards DDS 01/25/2021 1146 Estimated Blood Loss: less than 5 cc Lines/Drains: Peripheral IV Access: 01/25/21 0954 22 gauge Right Hand (Active) Site Assessment WNL 01/25/21 0954 Temporarily Retained Foreign Object: No Findings: Normal Complications: None Status at end of surgery: Stable Activity: Ad [place] Surgical wound class: No wound. Patient Class: Outpatient Surgery. Is this a patient scheduled as an outpatient that needs to be admitted as an inpatient? No Simi Joyner DDS was present in the OR for the critical portion of the procedure and procedure sign-out. 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 Findings: The patient was brought to the operating room and placed in the supine position on the operating room table. Following satisfactory induction of GA. The patient was intubated with a nasal endotracheal tube. He was then prepped and drapped in the usual sterile fashion for dental procedures. Full mouth series were then taken and an oral examination was completed. A moistened throat pack was then placed. Full mouth scaling and root planing was then performed. The radiographs were examined by the attending and the resident and used in conjunction with th oral exam to formulate a treatment plan. The restorative aspect of the treatment plan included the following amalgam synagogue tooth #18 ODB composite synagogue on tooth #29 B5 #28 B5 #25 DLIM #24 I #23 I These restorations were placed following excavation of the carious lesions on each tooth. The surgical aspect of the treatment plan included the following: Excisional biopsy for mass on the the right cheek Biopsy was done using puncture and tissue was suture back with chromic gut 5.0 Mass is sessile, round, measured around 4 mm in diameter, same color of the cheek tissue specimen was store in formalin and sent to the lab for evaluation Diffrential diagnosis : traumatic fibroma The remaining dentition was then polished with prophy paste. The oral cavity was irrigated and suctioned then the throat pack was removed. Fluoride treament was placed on the remaining dentition. The patient tolerated the procedure well was extubated in the operating room, and taken to the PACU in stable condition. Complications: None Status at end of surgery: Stable Medications: Outpatient Medications Marked as Taking for the 01/25/21 encounter (Hospital Encounter) Medication Sig Dispense Refill Dentifrices (BIOTENE DRY MOUTH DENTAL) by Dental route. cloNIDine HCl (CATAPRES ORAL) Take by mouth. OXcarbazepine (TRILEPTAL ORAL) Take by mouth. paroxetine (PAXIL) 40 MG tablet Take 40 mg by mouth daily. potassium chloride SA (K-DUR) 10 MEQ controlled release tablet Take 10 mEq by mouth daily. ALENDRONATE-CHOLECAL CIFEROL ORAL Take by mouth. Aspirin (ASPIR-81 ORAL) Take by mouth. atorvastatin (LIPITOR) 40 mg tablet Take 40 mg by mouth daily. benztropine (COGENTIN) 1 MG tablet Take 1 mg by mouth 2 times daily. kqwjfyd-uuljozoilj-s cellular pertussis (BOOSTRIX) 5-2.5-18.5 LF-MCG/0.5 injection Inject 0.5 mL into the muscle. Dictated by: Carolyn López DDS: Simi Joyner DDS was present for the critical portions of the procedure. 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 Findings: The patient was brought to the operating room and placed in the supine position on the operating room table. Following satisfactory induction of GA. The patient was intubated with a nasal endotracheal tube. He was then prepped and drapped in the usual sterile fashion for dental procedures. Full mouth series were then taken and an oral examination was completed. A moistened throat pack was then placed. Full mouth scaling and root planing was then performed. The radiographs were examined by the attending and the resident and used in conjunction with th oral exam to formulate a treatment plan. The restorative aspect of the treatment plan included the following amalgam synagogue tooth #18 ODB composite synagogue on tooth #29 B5 #28 B5 #25 DLIM #24 I #23 I These restorations were placed following excavation of the carious lesions on each tooth. The surgical aspect of the treatment plan included the following: Excisional biopsy for mass on the the right cheek Biopsy was done using puncture and tissue was suture back with chromic gut 5.0 Mass is sessile, round, measured around 4 mm in diameter, same color of the cheek tissue specimen was store in formalin and sent to the lab for evaluation Diffrential diagnosis : traumatic fibroma The remaining dentition was then polished with prophy paste. The oral cavity was irrigated and suctioned then the throat pack was removed. Fluoride treament was placed on the remaining dentition. The patient tolerated the procedure well was extubated in the operating room, and taken to the PACU in stable condition. Complications: None Status at end of surgery: Stable Medications: Outpatient Medications Marked as Taking for the 01/25/21 encounter (Hospital Encounter) Medication Sig Dispense Refill * Dentifrices (BIOTENE DRY MOUTH DENTAL) by Dental route. * cloNIDine HCl (CATAPRES ORAL) Take by mouth. * OXcarbazepine (TRILEPTAL ORAL) Take by mouth. * paroxetine (PAXIL) 40 MG tablet Take 40 mg by mouth daily. * potassium chloride SA (K-DUR) 10 MEQ controlled release tablet Take 10 mEq by mouth daily. * ALENDRONATE-CHOLECAL CIFEROL ORAL Take by mouth. * Aspirin (ASPIR-81 ORAL) Take by mouth. * atorvastatin (LIPITOR) 40 mg tablet Take 40 mg by mouth daily. * benztropine (COGENTIN) 1 MG tablet Take 1 mg by mouth 2 times daily. * mrlsmqe-kkeoeecneu-e cellular pertussis (BOOSTRIX) 5-2.5-18.5 LF-MCG/0.5 injection Inject 0.5 mL into the muscle. Dictated by: Carolyn López DDS: Simi Joyner DDS was present for the critical portions of the procedure. Carolyn López DDS 01/25/2021 12:18 PM Normal [facility] Anesthesia Preprocedure Eval justoon 01-24-2021 Neon Pumper Authentication Interface Message Text ASA: 3 No history of anesthetic complications PSE status: No PSE Review of Systems Pulmonary - negative ROS Comment: CXR: EXAMINATION: XR CHEST 1 V HISTORY: Cerebrovascular accident COMPARISON: No relevant comparison available. FINDINGS: LUNGS: Markedly underexpanded lungs. Mild haziness and small patchy opacities within the lungs. Questionable round rim calcified structure within the left lung base, 2.7 cm in diameter. VASCULATURE: No increased pulmonary vasculature. PLEURA: No pneumothorax, effusion, or pleural thickening. CARDIAC: No cardiomegaly or cardiac silhouette abnormality. MEDIASTINUM: No visible mass or adenopathy. BONES: No fracture or visible bone lesion. OTHER: Negative. IMPRESSION: 1. Low lung volume examination with mild bilateral atelectasis, possibly infiltrates. 2. Projecting over the left lung base is a faint 2.7 cm round structures; lung nodule versus overlying artifact. Consider follow-up nonemergent CT study of the thorax for further evaluation. Electronically authenticated by: SANDY DÍAZ Date: 2020-10-09 10:26 Dental ROS (+) teeth problems, Endo (+) hypothyroidism, Neuro/Psych (+) seizures, Comment: (+) tuberous sclerosis (+) autism / intellectual disability Cardiovascular - negative ROS (+) Surgical risk: low; Cardiac condition: no apparent Comment: ECHO: 09/2020 CONCLUSION: 1. Normal ventricular function. 2. Moderate concentric hypertrophy. 3. No significant valvular dysfunction. 4. Normal right sided pressures. 5. No evidence of intracardiac shunt by agitated saline study. No previous ECG available GI/Hepatic/Renal - negative ROS Heme/Other - negative ROS Physical Exam Airway Mallampati: I TM distance: Adequate Micrognathia: Not present Jaw opening: Adequate Neck flexion: Adequate Dental Dentition: poor dentition, nothing loose. Pulmonary - pulmonary exam normal Comment: Chest clear to auscultation bilaterally Cardiovascular - cardiovascular exam normal Comment: RRR with S1S2; no murmurs, gallops, or rubs Neuro - neurological exam normal Comment: Awake, alert, oriented, No motor deficits and sensation grossly intact Plan Anesthesia plan: general (ETT) Medications may include (but not limited to): anxiolytics, narcotic analgesics, IV hypnotics, neuromuscular blockers and inhalational analgesics Pain management: May include (but not limited to): IV, oral, anxiolytics, narcotic analgesics, local anesthetic and nerve block Anesthesia risks / alternatives discussed pre-op Questions answered / anesthesia plan accepted Past medical history, surgical history, allergies, and medications reviewed. Pertinent laboratory tests, EKG, imaging, and consults reviewed and I have personally seen and evaluated the patient, repeating narayanan portions of the history and physical examination. Normal [facility] Telephone Encounteron 2020 Neon Pumper Authentication Interface Message Text Informed Consent for dental surgery AND Anesthesia consent obtained and scanned into Loop Survey. Scheduled for surgery 01/25/2021. Normal [facility] AUD - Progress Noteson 04-20 Protein mass conc Pt. referred for hearing evaluation by Dr. Espinoza, accompanied by Caitie, a direct care provider from [facility]. Pt. returns today after having ears cleaned out. Pt. denied ear pain at the time of testing. Completed evaluation, resorting to play audiometry for pure tone testing. See AUD-Assessments for Report/Results. DX CODES: H90.3 sensorineural hearing loss bilateral Normal [facility] Coding Summary.on 04-20-2018 Coding Summary. CODING DATE: 04/20/[address] [facility] STATUS: PAYOR: Medicare APC DESCRIPTION 5722 Level 2 Diagnostic Tests and Related Services ADMIT DX: REASON FOR VISIT DX: H90.3 Sensorineural hearing loss, bilateral FINAL DX: PRINCIPAL: H90.3 Sensorineural hearing loss, bilateral SECONDARY: PYMT PROC APC STAT DESCRIPTION DOCTOR NAME DATE NOTE: The code number assigned matches the documented diagnosis and / or procedure in the patient's chart. However, the narrative phrase printed from the coding software may appear abbreviated, or result in slightly different terminology. Coded By: Keyona Grady CphT Date Saved: 04/20/2018 09:11 pm Normal [facility] AUD - Progress Noteson 03-31 Protein mass conc pt. referred for hearing evaluation by Muna Espinoza DO, accompanied by Darius direct care provider from [facility]. Otoscopy revealed cerumen in the right ear canal clocking view of the tympanic membrane, left ear with moderate cerumen but tympanic membrance visible. Discussed with Saurabh, did not complete evaluation today. He will return after bilateral ear cleaning. Called and spoke to [facility]/Nursing/Ainsley and advised her of the above. Normal [facility] Mohit 09-09-2016 Alanine aminotransferase (ALT) 35 U/L Normal <40 [facility] Soni 09-09-2016 Aspartate aminotransferase (AST) 26 U/L Normal 15-50 [facility] Albuminon 09-09-2016 Albumin 4.5 g/dL Normal 3.4-5.2 [facility] BUNon 09-09-2016 Urea nitrogen 21 mg/dL High 5-18 [facility] Creatinineon 09-09-2016 Creatinine 1.21 mg/dL High 0.50-1.20 [facility] Electrolyteson 09-09-2016 Chloride 107 mmol/L High 95-106 [facility] CO2 24 mmol/L Normal 24-35 [facility] Potassium molar conc 4.4 mmol/L Normal 3.7-5.3 [facility] S[facility] 141 mmol/L Normal 135-145 [facility] Vital Signs Date Time Vital Sign Value Performing Clinician Facility 01-06-2022 12:30-0500 Body height 177.8 cm Cj Gayle Other [facility] Other 01-06-2022 12:30-0500 Body mass index (BMI) [Ratio] 27.69 kg/m2 Cj Gayle Other [facility] Other 01-06-2022 12:30-0500 Body weight 87.54 kg Cj Gayle Other [facility] Other 09-24-2021 17:03-0400 Diastolic blood pressure 100 mm[Hg] DO Go Espinoza Work Phone: [facility] 09-24-2021 17:03-0400 Heart rate 79 /min DO Go Espinoza Work Phone: [facility] 09-24-2021 17:03-0400 Respiratory rate 16 /min DO Go Espinoza Work Phone: [facility] 09-24-2021 17:03-0400 SaO2% (BldA) [Mass fraction] 94 % DO Go Espinoza Work Phone: [facility] 09-24-2021 17:03-0400 Systolic blood pressure 156 mm[Hg] DO Go Espinoza Work Phone: [facility] 09-24-2021 15:05-0400 Body temperature 97.1 [degF] DO Go Espinoza Work Phone: [facility] 09-24-2021 15:05-0400 Inhaled oxygen flow rate 6 L/min DO Go Espinoza Work Phone: [facility] 09-24-2021 14:22-0400 Body height 172.72 cm DO Go Espinoza Work Phone: [facility] 09-24-2021 14:22-0400 Body mass index (BMI) [Ratio] 29.6 kg/m2 DO Go Espinoza Work Phone: [facility] 09-24-2021 14:22-0400 Body weight 88.4 kg DO Go Espinoza Work Phone: [facility] 08-14-2021 10:45-0400 Body height 177.8 cm Nallely Elenanoemi Other [facility] Other 08-14-2021 10:45-0400 Body mass index (BMI) [Ratio] 27.55 kg/m2 Nallely Tal Other [facility] Other 08-14-2021 10:45-0400 Body temperature 97 [degF] Nallely Parada Other [facility] Other 08-14-2021 10:45-0400 Body weight 87.09 kg Nallely Parada Other [facility] Other 08-14-2021 10:45-0400 Diastolic blood pressure 84 mm[Hg] Nallely Parada Other [facility] Other 08-14-2021 10:45-0400 Respiratory rate 20 /min Nallely Tal Other [facility] Other 08-14-2021 10:45-0400 SaO2% (BldA) [Mass fraction] 98 % Estebanred Tal Other [facility] Other 08-14-2021 10:45-0400 Systolic blood pressure 132 mm[Hg] Nallely Parada Other [facility] Other Encounters Encounter Date Encounter Type Care Provider Facility Start: 05-12-2023 End: 05-12-2023 ambulatory SUMEET SWANSON Facility:[facility] Start: 02-25-2023 End: 02-25-2023 Lab Drop off GO ESPINOZA [facility] Start: 02-25-2023 End: 02-26-2023 ambulatory GO ESPINOZA [facility] Start: 02-05-2023 End: 02-05-2023 ambulatory PITER BROWN Not Available Start: 11-12-2022 End: 11-13-2022 ambulatory GO ESPINOZA Facility:[facility] Start: 11-12-2022 End: 11-12-2022 Lab Drop off GO ESPINOZA [facility] Start: 07-08-2022 End: 07-08-2022 ambulatory MEGAN TSE Facility:[facility] Start: 05-27-2022 End: 05-28-[address] GO ESPINOZA Facility:[facility] Start: 04-24-2022 Letter encounter Vadim patton Start: 04-11-2022 End: 04-12-[address] GO ESPINOZA Facility:[facility] Start: 04-10-2022 End: 04-11-[address] GO ESPINOZA Facility:[facility] Start: 04-09-2022 Telephone encounter Nallely Parada [facility] Start: 04-09-2022 End: 04-09-2022 ambulatory Go Espinoza Facility:[facility] Start: 03-12-2022 End: 03-12-2022 ambulatory Go Espinoza Facility:[facility] Start: 03-12-2022 End: 03-12-2022 ambulatory DO Go Espinoza Work Phone: [facility] Work Phone: Start: 03-12-2022 End: 03-12-2022 Patient encounter procedure DO Go Espinoaz Work Phone: [facility] Work Phone: Start: 03-11-2022 End: 03-12-[address] GO ESIPNOZA Facility:[facility] Start: 02-06-2022 End: 02-06-2022 ambulatory Nallely Parada Other [facility] [employer] Other Start: 02-06-2022 Telephone encounter Nallely Parada [facility] Start: 01-07-2022 End: 01-07-2022 ambulatory Cj Gayle Other [facility] [employer] Other Start: 01-07-2022 Telephone encounter Cj Gayle [facility] Start: 01-06-2022 Postop follow up vis it related to original px Cj Nalini [facility] Start: 01-06-2022 End: 01-06-2022 ambulatory Cj Gayle Facility:[facility] Start: 01-06-2022 End: 01-06-2022 ambulatory DO Go Espinoza Work Phone: [facility] Work Phone: Start: 01-06-2022 End: 01-06-2022 Patient encounter procedure DO Go Espinoza Work Phone: [facility] Start: 12-04-2021 End: 12-06-2021 ambulatory UNKNOWN PROVIDER Facility:[facility] Start: 12-04-2021 End: 12-06-2021 Patient encounter procedure Ly Redmond [facility] Work Phone: [facility] Start: 11-22-2021 Postop follow up vis it related to original px Cj Nalini [facility] Start: 11-22-2021 End: 11-22-2021 ambulatory Cj Gayle [facility] [employer] Other Start: 11-22-2021 End: 11-22-2021 Patient encounter procedure DO Go Espinoza Work Phone: [facility] Start: 10-16-2021 Postop follow up vis it related to original px Cj Nalini [facility] Start: 10-16-2021 End: 10-16-2021 ambulatory Cj Gayle [facility] Other Start: 10-16-2021 End: 10-16-2021 Patient encounter procedure DO Go Espinoza Work Phone: [facility] Start: 09-24-2021 End: 09-24-2021 ambulatory Cj Gayle Facility:[facility] Start: 09-24-2021 End: 09-24-2021 Admission to same day surgery center DO Go Espinoza Work Phone: [facility] [place] Start: 09-23-2021 End: 09-23-2021 ambulatory Cj Gayle Facility:[facility] Start: 09-23-2021 End: 09-23-2021 Patient encounter procedure DO Go Espinoza Work Phone: [facility] Start: 09-18-2021 End: 09-18-2021 ambulatory TRAN MORALEZ . Facility:[facility] Start: 08-14-2021 End: 08-14-2021 ambulatory Nallely Parada Other [facility] [employer] Other Start: 08-14-2021 Office outpatient ne w 45 minutes Nallely Parada [facility] Start: 08-01-2021 End: 08-02-[address] GO ESPINOZA Facility:[facility] Start: 07-31-2021 End: 08-01-[address] GO ESPINOZA Facility:[facility] Start: 01-25-2021 End: 01-26-2021 ambulatory SIMI MEADOWS Facility:[facility] Start: 01-25-2021 ambulatory UNKNOWN PROVIDER Facili ty:[facility] Start: 09-09-2016 End: 09-09-2016 Ambulatory Robbi PETERSEN [facility] Procedures Date Procedure Procedure Detail Performing Clinician Start: 01-06-2022 X-ray of right ankle DO Go Bland Phone: Start: 11-22-2021 X-ray of right ankle DO Go Espinoza Work Phone: Start: 10-16-2021 X-ray of right ankle DO Go Espinoza Work Phone: Start: 09-24-2021 X-ray of right ankle DO Go Espinoza Work Phone: Start: 09-24-2021 Open reduction of fracture with internal fixation DO Go Espinoza Work Phone: Plan of Treatment Date Care Activity Detail Author Start: 10-10-2025 Lipid panel Cholesterol [facility] Start: 11-23-2021 Influenza vaccination Influenza Vaccine (#1) [facility] Start: 10-16-2021 X-ray of right ankle XR ankle RT min 3V* [facility] Start: 10-16-2021 End: 10-16-2021 Patient encounter procedure Departed Clinical [facility] Start: 09-24-2021 [facility] Work Phone: Start: 09-24-2021 [facility] Work Phone: Start: 08-21-2021 COVID-19 Vaccine (5 - Booster for Pfizer series) COVID-19 Vaccine (5 - Booster for Pfizer series) [facility] Start: 01-10-2018 Measurement of occult blood in single stool specimen FIT [facility] Start: 01-10-2018 Screening for malignant neoplasm of colon CRC Screening [facility] Start: 01-10-2018 Shingles (RZV) Vaccine (1 of 2) Shingles (RZV) Vaccine (1 of 2) [facility] Start: 01-10-2013 Screening for malignant neoplasm of colon [facility] Start: 01-10-2003 Lipid panel Cholesterol [facility] Start: 02-23-1997 Annual wellness visit Annual Wellness Visit (G0438) [facility] Start: 01-10-1986 Hepatitis C screening Hepatitis C Antibody [facility] Start: 01-10-1986 Tetanus + diphtheria + acellular pertussis vaccine (product) Tdap Booster [facility] Start: 01-10-1983 HIV screening HIV Test [facility] Start: 1968 Screening for malignant neoplasm of colon Colonoscopy [facility] Patient referral [facility] Work Phone: Immunizations Immunization Date Immunization Notes Care Provider Zeb bruno 06-26-2021 Pfizer (12+ yrs) SARS-COV-2 (COVID-19) vaccine, mRNA, spike protein, LNP, pres. free, 30 mcg/0.3mL dose, syeda-sucrose (AIC=478) Ly Ruy RDH Work Phone: [facility] 12-19-2020 COVID-19 Vaccine Pfi zer - Documentation Purposes Only [place] Other [facility] Other 12-19-2020 influenza, injectabl e, quadrivalent, preservative free Ly Ruy [facility] Work Phone: [facility] 12-19-2020 influenza virus vaccine, unspecified formulation Ly Ruy [facility] Work Phone: [facility] 03-27-2020 COVID-19 Vaccine Pfi zer - Documentation Purposes Only [place] Other [facility] Other 03-06-2020 COVID-19 Vaccine Pfi zer - Documentation Purposes Only [employer] Parada Other [facility] Other 11-30-2019 influenza, injectabl e, quadrivalent, preservative free Ly Ruy [facility] Work Phone: [facility] 12-17-2018 influenza, injectabl e, quadrivalent, preservative free Ly Ruy [facility] Work Phone: [facility] 12-02-2017 influenza, injectabl e, quadrivalent, preservative free Ly Ruy [facility] Work Phone: [facility] 01-06-2017 influenza, injectabl e, quadrivalent, contains preservative Ly Ruy [facility] Work Phone: [facility] 07-12-2015 tetanus and diphther ia toxoids, adsorbed, preservative free, for adult use (5 Lf of tetanus toxoid and 2 Lf of diphtheria toxoid) Ly Ruy [facility] Work Phone: [facility] 12-14-2014 influenza, injectabl e, quadrivalent, preservative free Ly Ruy [facility] Work Phone: [facility] 01-10-2009 novel [id number], preservative-free, injectable Ly Ruy [facility] Work Phone: [facility] 01-07-2008 influenza virus vaccine, whole virus Ly Ruy RD Work Phone: [facility] 12-08-2006 influenza virus vaccine, whole virus Ly Ruy RD Work Phone: [facility] 06-25-2005 tetanus and diphther ia toxoids, adsorbed, preservative free, for adult use (5 Lf of tetanus toxoid and 2 Lf of diphtheria toxoid) [facility] Work Phone: [facility] diphtheria, tetanus toxoids and acellular pertussis vaccine, unspecified formulation [facility]: [facility] Payers Date Payer Category Payer Self-pay [id number] 2019 Medicaid [id number] 1996 Medicare MEDICARE MEDICAR E PART A & B [id number] 1996-Present [address] [place] [address] Medicare [id number] 1968 Unknown [id number] 1968 Unknown [id number] 2.16.840.1.973303.3.579.2.732 1968 Unknown [id number] 2.16.840.1.986130.3.579.2.732 1968 Unknown [id number] 2.16.840.1.393804.3.579.2.593 1968 Unknown [id number] 2.16.840.1.638914.3.579.2.593 1968 Unknown [id number] 2.16.840.1.964547.3.579.2.593 1968 Unknown [id number] 2.16.840.1.304661.3.579.2.593 1968 Unknown [id number] 2.16.840.1.181678.3.579.2.1259 1968 Unknown [id number] 2..840.1.159288.3.579.2.727 1968 Unknown [id number] 2.16.840.1.822838.3.579.2.727 1959 Medicaid [id number] 1959 Medicare [id number] Medicare [id number] Unknown [employer] [id number] Unknown [id number] 2.16.840.1.997882.3.579.2.531 Unknown [id number] 2.16.840.1.852888.3.579.2.531 Unknown [id number] 2.16.840.1.856472.3.579.2.531 Unknown [id number] 2.16.840.1.512547.3.579.2.531 Unknown [id number] 2.16.840.1.985719.3.579.2.531 Unknown [id number] 2.16.840.1.730297.3.579.2.531 Unknown [id number] 2.16.840.1.837525.3.579.2.531 Unknown [id number] 2.16.840.1.678832.3.579.2.593 Unknown [id number] 2.16.840.1.257347.3.579.2.593 Unknown [id number] 2.16.840.1.942521.3.579.2.593 Social History Date Type Detail Facility Sex Assigned At [facility] Start: 09-24-2021 End: 09-24-2021 Tobacco smoking status WVIS Never smoked tobacco (finding) [facility] Start: 1970 Sex Assigned At Male F [facility] Tobacco smoking status [facility] Tobacco smoking consumption unknown [facility] Start: 1970 Sex Assigned At Not on file M [facility] Tobacco smoking status No Smoking Status Entered [facility] Medical Equipment Procedure Code Equipment Code Equipment Origin al Text Equipment Identifier Dates ORIF, fracture, ankle CANCELLOUS COARSE 7.5CC FDA Start: 09-24-2021 ORIF, fracture, ankle Orthopaedic bone screw, non-bioabsorbable, non-sterile ()[id number] FDA Start: 09-24-2021 ORIF, fracture, ankle Orthopaedic bone screw, non-bioabsorbable, non-sterile ()[id number] FDA Start: 09-24-2021 ORIF, fracture, ankle Orthopaedic fixation plate, non-bioabsorbable, sterile ()[id number] FDA Start: 09-24-2021 ORIF, fracture, ankle Orthopaedic bone screw, non-bioabsorbable, non-sterile ()[id number] FDA Start: 09-24-2021 ORIF, fracture, ankle Orthopaedic bone screw, non-bioabsorbable, non-sterile ()[id number] FDA Start: 09-24-2021 ORIF, fracture, ankle Orthopaedic bone screw, non-bioabsorbable, non-sterile ()[id number] FDA Start: 09-24-2021 ORIF, fracture, ankle Orthopaedic bone screw, non-bioabsorbable, non-sterile [id number] FDA Start: 09-24-2021 ORIF, fracture, ankle CANCELLOUS COARSE 7.5CC FDA Start: 09-24-2021 ORIF, fracture, ankle CANCELLOUS COARSE 7.5CC FDA Start: 09-24-2021 ORIF, fracture, ankle CANCELLOUS COARSE 7.5CC FDA Start: 09-24-2021 ORIF, fracture, ankle CANCELLOUS COARSE 7.5CC FDA Start: 09-24-2021 Goals Date Patient Goal Desired Activity /State Clinical Notes 01-10-2021 to 05-12-2023 Note Date & Type Note Facility 05-12-2023 Note HNO ID: [id number] Author: SUMEET CALI MD Service: ? Author Type: Physician Type: Progress Notes Filed: 05/12/2023 13:41 Note Text: FOLLOW UP - PSYCHIATRIC PROGRESS NOTE Visit Type:Virtual Visit utilizing two-way audio and video for at least a portion of the visit. Consent for virtual visit obtained verbally. Confidentiality limitations with virtual visits reviewed with the patient and guardian, if present, who have accepted the risk verbally prior to proceeding with encounter. I have communicated my name and active licensure. The patient's identity and physical location were verified at the time of this visit. Either the patient or their legal community service representative has been informed of the risks and benefits of -- and alternatives to -- treatment through a remote evaluation and consents to proceed with the evaluation remotely. Reason for Visit: Outpatient follow-up and safety monitoring of previously prescribed psychiatric medication, psychotherapy or other treatment CC: Medication management HPI: Mr. Lei is a 53 year old male with a PMH of tuberous sclerosis, epilepsy, autism spectrum disorder, history of agoraphobia with panic attacks, impulse control disorder, intellectual disability, osteoporosis, history of postural hypertension. He was last seen in June [address] Megan Tse at that time was continued on current regimen of paroxetine, haloperidol, clonidine, Cogentin. Today, is seen with care team and [place] . His mother is also present virtually. Patient states that he is doing very well . States I wore my seatbelt all the way here . Patient grew up in a note pad throughout interview and stated I am drawing basketballs . Per team has been doing well. Sleeping and eating well. Has not been agitated or aggressive. Had 1 incident several weeks ago of confusion . This did not repeat. No active concerns. Mother also voices limited concerns. Team feels that medications are appropriate. We will continue at this time. Risks and benefits of the medication, including any black box warnings, were discussed with the patient. Interval Progress: Same PATIENT DATA: Generalized Anxiety Disorder Scale (PETER-7) 05/12/2023 PETER - 7 SCORES Score 3 (0-4) minimal anxiety, (5-9) mild anxiety, (10-14) moderate anxiety, (15-21) severe anxiety Patient Health Questionnaire (PHQ-9) 05/12/2023 01/19/2023 07/08/2022 PHQ-9 Score 4 0 0 0 (0-4) minimal depression, (5-9) mild depression, (10-14) moderate depression, (15-19) moderately severe depression, (20-27) severe depression PROMIS Global Health 01/19/2023 05/12/2023 PROMIS Global Health - (T-Scores - the mean of general population = 50. Five points is a clinically meaningful difference.) Physical T-Score 50.8 50.8 50.8 Mental T-Score 41.1 41.1 43.5 Generalized Anxiety Disorder Scale (PETER-7) 05/12/2023 PETER - 7 SCORES Score 3 (0-4) minimal anxiety, (5-9) mild anxiety, (10-14) moderate anxiety, (15-21) severe anxiety [place] Cognitive Assessment (MoCA) No data to display Score of 26 or above considered normal 18-25 =mild cognitive impairment, 10-17 = moderate cognitive impairment, <10 = severe cognitive impairment Patient Health Questionnaire (PHQ-9) 05/12/2023 01/19/2023 07/08/2022 PHQ-9 Score 4 0 0 0 (0-4) minimal depression, (5-9) mild depression, (10-14) moderate depression, (15-19) moderately severe depression, (20-27) severe depression PROMIS Global Health 01/19/2023 05/12/2023 PROMIS Global Health - (T-Scores - the mean of general population = 50. Five points is a clinically meaningful difference.) Physical T-Score 50.8 50.8 50.8 Mental T-Score 41.1 41.1 43.5 PAST MEDICAL HISTORY Diagnosis Date Fracture Hypertension Intellectual disability Seizures Tuberous sclerosis No past surgical history on file. Current Outpatient Medications Medication Sig Dispense Refill alendronate (FOSAMAX) 70 mg tablet Take 1 tablet by mouth one time a week. on Wednesdays at 15:00 0 loratadine (CLARITIN) 10 mg tablet Take 1 tablet by mouth once daily. for 3 days as needed for nasal congestion. 0 haloperidol (HALDOL) 5 mg tablet Take 3 tablets daily by mouth in the morning, 2 tablets in the evening, and 3 tablets at bedtime 0 avebnxt-rmqoipfuq-ekbfasz D3 (OYSTER SHELL CALCIUM-VITAMIN D) 500 mg(1,250mg) -200 unit per tablet Take 1 tablet by mouth twice daily with meals. 0 levothyroxine (SYNTHROID) 150 mcg tablet Take 1 tablet by mouth once daily. 0 fluocinonide (LIDEX) 0.05 % cream Apply 1 application to affected area once each week. OXcarbazepine 600 mg tablet Take 1 tablet by mouth three times daily. 39 tablet 0 PARoxetine 40 mg tablet Take 1.5 tablets by mouth once daily. cloNIDine 0.1 mg tablet Take 1 tablet by mouth three times daily. MULTIVITAMIN CAP daily POTASSIUM CHLORIDE SR 10 MEQ TAB one cap three times daily DOCUSATE SODIUM 100 MG CAP take one tab PO tid 0 (more content not included)... [facility] 02-25-2023 Evaluation + Plan note Diagnostic Tests PendingT3 Free 02/25/23 [facility] 11-12-2022 Evaluation + Plan note Diagnostic Tests PendingPSA Screen, Total 11/12/22 [facility] 07-08-2022 Note HNO ID: [id number] Author: Megan Tse MD Service: ? Author Type: Physician Type: Progress Notes Filed: 07/08/2022 10:30 AM Note Text: PSYC FOLLOW UP - PSYCHIATRIC PROGRESS NOTE CC: Follow-up, Intellectual disability, impulse control disorder I have communicated my name and active licensure. The patient's identity and physical location were verified at the time of this visit. Either the patient or their legal community service representative has been informed of the risks and benefits of -- and alternatives to -- treatment through a remote evaluation and consents to proceed with the evaluation remotely. HPI: Nursing from [place] and patient's mother/guardian (I[place]ory) present. Alethea happily reports that he is doing well and is enjoying drawing basketball games. His nursing team reports that he had one day of confusion that was noted since last visit, self resolved within a day. Not known infection at the time, no clear source. Has not repeated itself. No lethargy. Overall doing well. No noted concerns today. Labwork to be faxed over for review. Risks and benefits of the medication, including any black box warnings, were discussed with the patient. PATIENT DATA: Generalized Anxiety Disorder Scale (PETER-7) No flowsheet data found.(0-4) minimal anxiety, (5-9) mild anxiety, (10-14) moderate anxiety, (15-21) severe anxiety Patient Health Questionnaire (PHQ-9) PHQ-9 01/09/2009 07/08/2022 Score 5 0 (0-4) minimal depression, (5-9) mild depression, (10-14) moderate depression, (15-19) moderately severe depression, (20-27) severe depression PROMIS Global Health No flowsheet data found. PAST MEDICAL HISTORY Diagnosis Date Fracture Hypertension Intellectual disability Seizures Tuberous sclerosis No past surgical history on file. Current Outpatient Medications Medication Sig Dispense Refill alendronate (FOSAMAX) 70 mg tablet Take 1 tablet by mouth one time a week. on Wednesdays at 15:00 0 loratadine (CLARITIN) 10 mg tablet Take 1 tablet by mouth once daily. for 3 days as needed for nasal congestion. 0 haloperidol (HALDOL) 5 mg tablet Take 3 tablets daily by mouth in the morning, 2 tablets in the evening, and 3 tablets at bedtime 0 uvnhthf-tmnwxektp-rhxcxqx D3 (OYSTER SHELL CALCIUM-VITAMIN D) 500 mg(1,250mg) -200 unit per tablet Take 1 tablet by mouth twice daily with meals. 0 levothyroxine (SYNTHROID) 150 mcg tablet Take 1 tablet by mouth once daily. 0 fluocinonide (LIDEX) 0.05 % cream Apply 1 application to affected area once each week. OXcarbazepine 600 mg tablet Take 1 tablet by mouth three times daily. 39 tablet 0 PARoxetine 40 mg tablet Take 1.5 tablets by mouth once daily. cloNIDine 0.1 mg tablet Take 1 tablet by mouth three times daily. MULTIVITAMIN CAP daily POTASSIUM CHLORIDE SR 10 MEQ TAB one cap three times daily DOCUSATE SODIUM 100 MG CAP take one tab PO tid 0 0 BENZTROPINE 1 MG TAB take 1 tablet TID 0 No current facility-administered medications for this visit. ROS: Patient unable to participate PFSH: Living in group/fdc VITAL SIGNS: There were no vitals filed for this visit. MENTAL STATUS EXAM: CONSTITUTIONAL: Casually dressed in a T-shirt ORIENTATION: Person MEMORY: Unable to assess CONCENTRATION: Developmentally delayed MOOD: pretty good AFFECT: childlike SPEECH : Increased volume LANGUAGE : Developmentally immature ASSOCIATIONS: Unable to assess THOUGHT PROCESS : Unable to assess PROGRESSION : No evidence of delusions or hallucinations FUND OF KNOWLEDGE : Diminished SUICIDE: None HOMICIDE: None No evidence of involuntary movements DATA REVIEWED: Labs, Cardiac testing and Electronic medical record DIAGNOSIS: PRIMARY: Intellectual disability, moderate Secondary : Autism spectrum disorder, impulse control disorder, tuberous sclerosis Other : History of agoraphobia TREATMENT PLAN: 1. Continue Haldol 07/12/14 daily 2. Continue Cogentin 1 mg 3 times daily 3. Continue clonidine 0.1 mg 3 times daily 4. Continue paroxetine 60 mg daily 5. Flat to fax over most recent blood work Follow Up: 6 months Fax note to: [phone] ADD ON PSYCHOTHERAPY CODE : Dinorah Tse MD 10:18 AM, July 08, 2022 Associate Staff - Psychiatry [facility] 01-06-2022 Evaluation note Encounter Date Diagnosis Assessment Notes Dec, Displaced fracture of lateral malleolus of right fibula, subsequent encounter for closed fracture with routine healing (ICD-10 - S82.61XD) Alethea is here today for follow-up about 12 weeks s/p right ankle ORIF. He is doing well. He is currently residing at [facility]. There is no complaints overall. Ankle is benign today. He has returned to normal shoewear without issues. He has been working with physical therapy. He has no complaints. At this time I would allow him to return to activities as tolerated. Follow-up as needed. The patient has been involved in our cooperative treatment plan and agrees to move forward with treatment at this time. Radiographs reviewed and discussed in detail with patient. Patient is completely healed at this time. He may return to work at this time with no restrictions. Patient voiced understanding . Dec, Other fracture of lower end of left tibia, subsequent encounter for closed fracture with routine healing (ICD-10 - S82.392D) Dec, Other specified postprocedural states (ICD-10 - Z98.890) [employer] Other 10-12-2022 History of Present illness Narrative* Simi Edwards DDS - 12/04/2021 11:03 AM EDT ----- Saturday, December 04, 2021 at 11:22:04 AM ----- ----- Provider: [id number] - Ly Redmond Hygienist -- Clinic: [place] ----- [facility], Pt is ready for tx. Pt presented with caries Radiograph taken today: none Discussed the medical necessity of the problem with the pt. Instructions given to pt. Caregiver understood the situation and is okay with medications for today. Pt will come back shouldthings get worse. Guardianship: PARENTS - Nabil[place]) [place] [address] / Email: [email or web address] Communicated with caregiver that the pt was placed on the OR list and we will call with appt. Limited exam completed by Dr. Noel STEPHENS. OR ----- Signed on Saturday, December 04, 2021 at 11:51:43 AM ----- ----- Provider: [id number] Tucker Myers DDS -- Clinic: [place] ----- documented in this [id number] Evaluation note* Encounter Date Diagnosis Assessment Notes Treatment Notes Treatment Clinical Notes Oct, Displaced fracture of lateral malleolus of right fibula, subsequent encounter for closed fracture with routine healing (ICD-10 - S82.61XD) Alethea is here today for first follow-up 8 weeks s/p right ankle ORIF. He is doing well. He is currently residing at [facility]. There is no complaints overall. His incision is benign and sutures removed today. X-rays were reviewed with patient as well as staff at bedside. Okay to start weightbearing inside the boot as tolerated. Do this over the next 4 weeks. After 4 weeks okay to remove boot as tolerated. Okay to remove boot for hygiene purposes. Plan follow-up in 6 weeks for repeat x-rays. The patient has been involved in our cooperative treatment plan and agrees to move forward with treatment at this time. Radiographs reviewed with patient today. Discussed he can progress activity as tolerated in CAM boot, may use crutches or walker if needed. Discussed to continue with physical therapy. Discussed he can progress out of CAM boot in 4 weeks Oct, Other fracture of lower end of left tibia, subsequent encounter for closed fracture with routine healing (ICD-10 - S82.392D) [employer] Other 08-24-2022 Evaluation note* Encounter Date Diagnosis Assessment Notes Treatment Notes Treatment Clinical Notes Sep, Displaced fracture of lateral malleolus of right fibula, subsequent encounter for closed fracture with routine healing (ICD-10 - S82.61XD) Alethea is here today for first follow-up 3 weeks s/p right ankle ORIF. He is doing well. He is currently residing at [facility]. There is no complaints overall. His incision is benign and sutures removed today. X-rays were reviewed with patient as well as staff at bedside. We will plan for return to tall walking boot with nonweightbearing. Okay to remove boot for hygiene purposes. Plan follow-up in a month for repeat x-rays. Plan to start weightbearing inside of boot at that time The patient has been involved in our cooperative treatment plan and agrees to move forward with treatment at this time. Radiographs reviewed with patient and caregiver. Patient is progressing well from surgery. Sutures removed today under clean conditions. Patient tolerated well. Patient to go into the CAM walker boot today, may remove for bathing only. May work on gentle ROM while boot is off. Continue NWB. May discontinue aspirin as previously prescribed. Call with questions/concern s. Sep, Other fracture of lower end of left tibia, subsequent encounter for closed fracture with routine healing (ICD-10 - S82.392D) Sep, Other See orders for this visit as documented in the electronic medical record. [employer] Other 08-24-2022 NoteCast material is in place limiting evaluation. Hardware fixation involving the distal fibula withNort [employer] Other 07-27-2022 NotePROCEDURE: XR TIB_FIB RT 2V HISTORY: Pain COMPARISON: XR ankle right 09/18/2021 FINDINGS: BONES:Mildly displaced transverse fracture through the distal fibula diametaphyseal junction. Slight widening of the medial malleolus-talus joint space indicating mild lateral subluxation of the talus. Reduction of the talus which now resides under the tibial plafond. Nondisplaced posterior malleolus fracture. SOFT TISSUES:Soft tissue swelling surrounding the ankle. Images were obtained to cast material. EFFUSION:None visible. OTHER: Negative. IMPRESSION: 1. Successful reduction of the ankle joint. 2. Slight lateral subluxation of the talus and minimally displaced lateral malleolus fracture and posterior malleolus fracture. Electronically authenticated by: SANDY DÍAZ Date: 2021-09-18 17:14[facility]07-27-2022 NotePROCEDURE: XR ANKLE RT MIN 3 VIEWS HISTORY: Unspecified fall ; pain after falling COMPARISON: None. FINDINGS: BONES: Acute, nondisplaced fracture of the posterior malleolus. Acute fracture of the distal fibula at the diametaphyseal junction with posterior displacement one half the bone width. Dorsal subluxation of the talus in relation to the tibial plafond one half the joint with with marked widening of the joint space anteriorly. SOFT TISSUES: Marked soft tissue swelling surrounding the ankle. EFFUSION: None visible. OTHER: Negative. IMPRESSION: 1. Unstable ankle with fracture of the posterior malleolus, mildly displaced fracture of the lateral malleolus, and posterior subluxation, approaching dislocation, of the talus in relation to the tibial plafond. 2. Marked soft tissue swelling. Electronically authenticated by: SANDY DÍAZ Date: 2021-09-18 16:44[facility]07-27-2022 NotePROCEDURE: XR ANKLE LT MIN 3 V HISTORY: Pain after falling COMPARISON: None. FINDINGS: BONES:Acute, nondisplaced fracture of the posterior malleolus. Acute fracture of the distal fibula at the diametaphyseal junction with posterior displacement one half the bone width. Dorsal subluxation of the talus in relation to the tibial plafond one half the joint with with marked widening of the joint space anteriorly. SOFT TISSUES:Marked soft tissue swelling surrounding the ankle. EFFUSION:None visible. OTHER: Negative. IMPRESSION: 1. Unstable ankle with fracture of the posterior malleolus, mildly displaced fracture of the lateral malleolus, and posterior subluxation, approaching dislocation, of the talus in relation to the tibial plafond. 2. Marked soft tissue swelling. 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 I have personally seen and evaluated the patient, repeating narayanan portions. There is no significant interval change. Surgery is still indicated. Yes Consent reviewed and signed by patient/family: Yes Operative site verified and marked: site verified but not marked as not anatomically possible Carolyn López DDS 01/25/2021 9:[address]11-18-2021 NotePatient is vaccinated for COVID-19: Pfizer on 03/06/2020 AND 03/27/2020. Patient does not require pre-op COVID testing per current guidelines.The Pathbrite SystemEvaluation noteNo assessment information availableJoint Township District [facility] Work Phone: Evaluation noteNo InformationNort [employer] Other History general Narrative - Reported* Type Description Date Medical History Unspecified intellectual disabil ities Medical History autism Medical History ADHD Medical History Seizure Disorder Medical History tuberous Sclerosis [employer] Other History general Narrative - Reported* Type Description Date Medical History Unspecified intellectual disabil ities Medical History autism Medical History ADHD Medical History Seizure Disorder Medical History tuberous Sclerosis Surgical History ORIF RT lateral malleolus fx Hospitalization History see above [employer] Other Hospital course Narrative No data available for this section [facility] No data available for this section [facility] No data available for this section [facility] Summary Purpose Family History No Family History Records Found Relationship Condition Age at Onset Recorded Date/T adriel Not Specified Hypertension Unknown father Hypertension Unknown Advance Directives No Advanced Directives Records Found Advance Directive Response Recorded Date/ Time Advance Directives No October 22, 2016 9:09am Advance Directive Response Recorded Date/ Time Advance Directives No October 22, 2016 8:09am Chief Complaint and Reason for Visit Chief Complaint Fracture Fracture S82.61XD Chief Complaint S82.61XD S82.61XD Chief Complaint S82.61XD j98.4 r91.1 Additional Source Comments (unrecognized sect ion and content) No Status Records FoundNo Status Records FoundNo Status Records FoundNo Status Records FoundNo Status Records FoundNo Status Records FoundNo Status Records FoundNo Status Records Found INFORMATION SOURCE (unrecogn ized section and content) DATE CREATED AUTHOR 08/19/2017 [facility] DATE CREATED AUTHOR AUTHOR'S ORGANIZ ATION 07/30/2018 [facility] DATE CREATED AUTHOR AUTHOR'S ORGANIZ ATION 12/15/2021 [facility] DATE CREATED AUTHOR AUTHOR'S ORGANIZ ATION 04/17/2022 [facility] DATE CREATED AUTHOR AUTHOR'S ORGANIZ ATION 06/01/2022 [facility] DATE CREATED AUTHOR AUTHOR'S ORGANIZ ATION 02/07/2023 [facility] EPIC DATE CREATED AUTHOR AUTHOR'S ORGANIZ ATION 02/28/2023 [place] [employer] [facility] DATE CREATED AUTHOR AUTHOR'S ORGANIZ ATION 05/19/2023 [facility] REASON FOR VISIT (unrecogniz ed section and content) Ref: [place]- Pulmonary Nod uleRecheck Right AnkleRecheck Right AnkleRecheck Right Ankleoffice notePET scanPET Results Care Teams (unrecognized sec tion and content) Team Status: Inactive Member Role Status Dates Go Espinoza , DO Primary Care Provider Active Cj Gayle , DO Attending Provider Active Team Status: Active Member Role Status Dates Go Espinoza , DO Primary Care Provider Active Team Status: Inactive Member Role Status Dates Go Espinoza , DO Primary Care Provider Active Nallely Parada MD Attending Provider Active Goals (unrecognized section and content) Goals may be documented in a n alternate section FOR RECORDS PERTAINING TO PATIENTS WHO ARE OR HAVE BEEN ENROLLED IN A CHEMICAL DEPENDENCY/SUBSTANCEABUSE PROGRAM, SOME INFORMATION MAY BE OMITTED. This clinical summary was aggregated from multiple sources. Caution should be exercised in using it in the provision of clinical care. This summary normalizes information from multiple sources, and as a consequence, information in this document may materially change the coding, format and clinical context of patient data. In addition, data may be omitted in some cases. CLINICAL DECISIONS SHOULD BE BASED ON THE PRIMARY CLINICAL RECORDS. [employer] provides no warranty or guarantee of the accuracy or completeness of information in this document.
[2023-07-15 11:32] LABS: Bilirubin Urine NEGATIVE (NEGATIVE); Blood Urine NEGATIVE (NEGATIVE); Clarity Urine CLEAR (CLEAR); Color Urine LT. YELLOW (YELLOW); Glucose Urine UA NEGATIVE (NEGATIVE); Ketones Urine NEGATIVE (NEGATIVE); Leukocyte Esterase Urine NEGATIVE (NEGATIVE); Nitrite Urine NEGATIVE (NEGATIVE); Protein Urine NEGATIVE (NEG/TRACE); Urobilinogen Urine 0.2 EU/dL (0.2-1.0); pH Urine 6.5 (5.0-9.0)
[2023-07-15 11:36] LABS: Urine Microscopic Indicated NO
== END 2023-07-15 09:54 | disposition home or self-care (01) ==
LOC: LAB 09:53
PROVIDERS: PCP Family Medicine; Visit Provider Family Medicine
DX: R53.1 Weakness (principal); R41.0 Disorientation, unspecified
CPT/HCPCS: 81003

== ENCOUNTER 2023-07-30 08:42 | Outpatient (OUT) | payer MEDICARE, MEDICAID, SELFPAY ==
--- NOTE | 2023-07-30 08:43 | US_ITS ---
The [address] [address] Patient Name: ALETHEA LEI MRN: [id number] date: 1970 Sex: M Assigned Patient Location: Current Patient Location: Accession/Order Number: [id number] Exam Date: 07/30/2023 08:50 Report Date: 07/31/2023 06:06 At the request of: CHARISSA ESPINOZA Procedure: US renal bladder EXAM: US renal bladder HISTORY: . Chronic Kidney Disease . COMPARISON: None. TECHNIQUE: Grayscale and color imaging was performed FINDINGS: Scanning of the bladder demonstrates no masses within the bladder. No bladder wall thickening is noted. Bilateral ureteral jets were noted. Prevoid volume was 1423 mL and post void residual was 332 mL. Right kidney measures 9.2 x 4.8 x 4.3 cm. No hydronephrosis is noted. Renal cortical echotexture is increased. There is a 1 cm cyst involving the mid to lower pole of the right kidney. Small echogenic foci are noted involving the right kidney consistent with nephrolithiasis. The largest measures approximately 4 mm. Left kidney measures 11.9 x 6.1 x 7 cm. No solid renal cortical masses or hydronephrosis is noted. Small echogenic foci are noted involving the left kidney suggesting nonobstructing calculi. There is a 1.8 x 1.4 cm cyst involving the left kidney. US/US renal bladder IMPRESSION: 1. Increased echogenicity of both renal cortices indicating medical renal disease. 2. Simple cyst involving both kidneys. 3. Bilateral nephrolithiasis. 4. Normal-appearing filled bladder with bilateral ureteral jets. Post void residual was 332 mL for a post void residual of approximately 23%. Electronically authenticated by: NORMA BROWN Date: 07/31/2023 06:06
--- OUTSIDE RECORDS SUMMARY | 2023-07-30 08:57 | XMS_ITS | CCD ---
Author Organization [facility] CliniSyct Care Team Providers Care Sewing Supervisor Name Role Phone Robbi PETERSEN Unavailable Unavailable ESPINOZA, GO A Unavailable Unavailable ESPINOZA, GO A Unavailable Unavailable Chanoemi, Kamal Unavailable Cj Gayle Unavailable DO Go Espinoza A Primary Care Provider [phone] DO Cj Gayle Attending Provider PROVIDER, UNKNOWN Attending Unavailable PROVIDER, UNKNOWN Admitting Unavailable PROVIDER, UNKNOWN Admitting Unavailable PROVIDER, UNKNOWN Attending Unavailable SIMI EDWARDS Admitting Unavailable SIMI EDWARDS Attending Unavailable SIMI EDWARDS Referring Unavailable Unavailable Primary Care Provider Unavailabl e Kristin, DO Go A Primary Care Provider DO jC Gayle A Attending Provider [phone] Kristin DO Go A Primary Care Provider DO Cj Gayle A Attending Provider MD Nallely Parada Attending Provider Cj Gayle A Attending Unavailable Espinoza, Go A Primary Care Unavailable Nalini Cj A Admitting Unavailable NaliniMagdyin A Attending Unavailable Espinoza, Go A Primary Care Unavailable Nalini, Cj A Admitting Unavailable Nalini Cj A Attending Unavailable Espinoza, Go A [...] ESPINOZA, DR GO Ricci Primary Care Unavailable ESPIONZA, DR GO Ricci Admitting Unavailable ESPINOZA, DR [...] Ricci Consulting Unavailable ESPINOZAGO Primary Care Physician PITER BROWN Attending Unavailable ESPINOZA, GO Admitting [...] to adverse reactions to drug (disorder) 7 [facility] Repository (7 sources) PERTUSSIS VACCINES; Translations: [PERTUSSIS VACCINES] Propensity to adverse reactions to drug (disorder) 8 [facility] Repository (1 source) Pertussis Vaccine Drug Allergy 3 [facility] Repository (1 source) ARIPiprazole; Translations: [ARIPIPRAZOLE] Drug Allergy 8 [facility] Repository Medications Current Medications Medication Drug [...] 23, 2021 11:00pm take 1 tablet by elba th once [...] mouthwash (5 sources) Start: 09-24-2021 Saliva Substit cantwell Combo No.9 (Biotene Dry Mouth Oral Rinse) mouthwash Active 5 ML PO As Directed September 23, 2021 11:00pm Start: 09-24-2021 Saliva Substit cantwell Combo No.9 (Biotene Dry Mouth Oral Rinse) [...] 10-16-2021 Episodic Other aftercare (1 source) Other detention (current) drug therapy; Translations: [OTH [facility] CURRENT DRUG THERAPY] Onset: 09-25-2021 Episodic Other [...] Name Value Interpretation Reference Range Facility [facility] ALETHEA LEI ([id number]) 1970 M Date Time Provider Department 05/15/23 SUMEET CALI PSYRMN During your visit today, we recorded the following information about you: Mariana Fair 05/15/2023 2:56 PM Signed Lucretia Allison- patients mom called and stated that [facility] is not able to do an appt for patient with you? They told her if you had a form that you can send to them? She don't know the name of the form? The conversation was a bit confusing. Mom can be reached at [phone] Thank you, Mariana Fair Allergies As of [...] evening, and 3 tablets at bedtime - lbrbefw-qbuhldirg-sm tamin D3 (OYSTER SHELL CALCIUM-VITAMIN D) 500 [...] HEMANGIOMA SKIN [D18.01] 02/02/2008 SPECIAL SYMPTOM NEC/NOS [ZYR4312] 02/03/2008 FRONTAL LOBE SYNDROME [F07.0] 08/02/2008 Autism spectrum disorder [F84.0] 08/02/2008 Impulse control disorder [F63.9] 08/16/2012 Intellectual disability [F79] 01/31/2021 Encounter Status:Closed by MARIANA FAIR on 05/18/[address] [facility] [place] T3 Freeon 02-27-2023 Free T3 [Mass/Vol] 2.0 pg/mL Invalid Interpretation Code 2.0-4.4 [facility] Comment on above: Result Comment: Perf ormed at: [facility] [address] [place], [place] [id number] PhD Jarod Kumar Performed By: #### 2 009492, 2012654, 8003682, 48189606, 072660239, 2872598, 0714552, 1306402, 0640306, 2692474 ####[facility] [address] [place] [address] CMPon 02-26-2023 Albumin [Mass/Vol] 4.1 g/dL Normal 3.3-5.0 [facility] Comment on above: Performed By: #### 2 580852, 0979371, 5457236, 65881668, 269719474, 6030422, 0673635, 6525737, 5159478, 0560709 #### [facility] [address] [place] [address] Albumin/Globulin [Mass ratio] 1.4 {ratio} Normal 1.1-2.2 [facility] Comment on above: Performed By: #### 2 570294, 3149605, 2543102, 54717758, 507287358, 1029836, 7522681, 8190581, 2401783, 3455794 #### [facility] [address] [place] [address] Alk Phos 158 Int._Unit/L High 21-98 [facility] Comment on above: Performed By: #### 2 549238, 8884037, 6946030, 66042121, 266772207, 9231981, 9572579, 6921239, 9611084, 7131607 #### [facility] [address] [place] [address] ALT 32 Int._Unit/L Normal 6-46 [facility] Comment on above: Performed By: #### 2 661747, 2334194, 6252368, 27391461, 875634719, 2718177, 1117969, 2410851, 1309293, 8888902 #### [facility] [address] [place] [address] Anion gap [Moles/Vol] 12 mmol/L Normal 6-16 [facility] Comment on above: Performed By: #### 2 137162, 4280148, 8583988, 50385548, 523525012, 0288596, 0680888, 9456860, 0467846, 4503425 #### [facility] [address] [place] [address] AST 25 Int._Unit/L Normal 5-43 [facility] Comment on above: Performed By: #### 2 518243, 0563866, 2639273, 89802686, 987641076, 4438926, 8343199, 0309061, 4438405, 1692217 #### [facility] [address] [place] [address] Bili Total 0.3 mg/dL Normal 0.0-1.1 [facility] Comment on above: Performed By: #### 2 168275, 2362532, 0505663, 14761729, 732486015, 1075030, 2293509, 9248556, 4921235, 7088713 #### [facility] Laboratory [address] [place] [address] BUN/Creat Ratio 17 No Units Normal 10-20 [facility] Comment on above: Performed By: #### 2 973211, 5262255, 0108480, 24019767, 019049275, 6138482, 7937013, 5378844, 1242800, 6400623 #### [facility] [address] [place] [address] Calcium [Mass/Vol] 8.9 mg/dL Normal 8.9-11.1 [facility] Comment on above: Performed By: #### 2 335297, 3656431, 7271961, 28000163, 805779257, 7462523, 2848441, 9042436, 7670825, 7461313 #### [facility] [address] [place] [address] Chloride [Moles/Vol] 113 mmol/L High 101-111 [facility] Comment on above: Performed By: #### 2 902368, 2855931, 8264653, 91632662, 639002896, 9698796, 4632807, 3839157, 0232614, 0773114 #### [facility] [address] [place] [address] CO2 [Moles/Vol] 22 mmol/L Normal 21-31 [facility] Comment on above: Performed By: #### 2 387925, 7493003, 5684006, 89761191, 320112310, 6608647, 0000037, 2124050, 1139541, 7940594 #### [facility] [address] [place] [address] Creatinine [Mass/Vol] 1.5 mg/dL High 0.5-1.3 [facility] Comment on above: Performed By: #### 2 601827, 3984487, 1716308, 84640000, 720546567, 3173100, 7890059, 6636461, 6111069, 7769155 #### [facility] [address] [place] [address] Globulin (S) [Mass/Vol] 2.9 g/dL Normal 1.4-4.0 [facility] Comment on above: Performed By: #### 2 497787, 6843415, 9148972, 16907227, 431474245, 4037413, 1755453, 5181956, 2685930, 7517659 #### [facility] [address] [place] [address] Glucose [Mass/Vol] 90 mg/dL Normal 55-199 [facility] Comment on above: Performed By: #### 2 087058, 8630857, 9888918, 27034369, 446922889, 6669612, 4848593, 9995962, 3672864, 3923568 #### [facility] [address] [place] [address] Potassium [Moles/Vol] 4.8 mmol/L Normal 3.5-5.3 [facility] Comment on above: Performed By: #### 2 830871, 6946522, 3419829, 51896756, 429831084, 7845783, 4656529, 6840604, 7094835, 0327447 #### [facility] [address] [place] [address] Protein [Mass/Vol] 7.0 g/dL Normal 6.0-7.8 [facility] Comment on above: Performed By: #### 2 936854, 6316320, 6799978, 77885959, 252988172, 4006200, 9444618, 4325931, 8321530, 9426430 #### [facility] [address] [place] [address] Sodium [Moles/Vol] 142 mmol/L Normal 135-145 [facility] Comment on above: Performed By: #### 2 383142, 3935301, 5402116, 73085386, 958251731, 1885864, 8193003, 3668641, 2790746, 7947789 #### [facility] [address] [place] [address] Urea nitrogen [Mass/Vol] 26 mg/dL High 5-21 [facility] Comment on above: Performed By: #### 2 112513, 7972013, 5448539, 36196888, 966326817, 8455400, 8966369, 6198382, 4732801, 0414209 #### [facility] [address] [place] [address] Ironon 02-26-2023 Iron 130 microgram/dL Normal 35-153 [facility] Comment on above: Performed By: #### 2 902436, 9945054, 0891996, 92855549, 511371081, 5926802, 3016769, 6288783, 7168679, 4473076 #### [facility] [address] [place] [address] Lipid Panelon 02-26-2023 Cholesterol [Mass/Vol] 105 mg/dL Low 120-200 [facility] Comment on above: Performed By: #### 2 798622, 8660063, 9309394, 61970955, 401136595, 6326866, 7331656, 4138249, 6040421, 7627067 #### [facility] [address] [place] [address] Cholesterol in HDL [Mass/Vol] 40 mg/dL Invalid Interpretation Code [facility] Comment on above: Result Comment: '>= 60 LOW RISK' '<= 40 HIGH RISK' Performed By: #### 2 732705, 2224138, 2955406, 44494260, 149276291, 4946806, 7320406, 4254513, 2570388, 8313634 #### [facility] [address] [place] [address] Cholesterol in LDL [Mass/Vol] 54 mg/dL Normal <=129 [facility] Comment on above: Performed By: #### 2 632773, 8699778, 3767139, 96286473, 662644273, 5656581, 5349936, 8452695, 3344462, 0785368 #### [facility] [address] [place] [address] Cholesterol in VLDL [Mass/Vol] 16 mg/dL Normal 7-40 [facility] Comment on above: Performed By: #### 2 506389, 0257090, 2914275, 29355297, 743940465, 7640170, 4499216, 5360935, 7182973, 9297216 #### [facility] [address] [place] [address] Triglyceride [Mass/Vol] 81 mg/dL Normal <=149 [facility] Comment on above: Performed By: #### 2 223778, 7892716, 9707321, 35921828, 568167530, 6333078, 6607383, 4113069, 2184484, 5949562 #### [facility] [address] [place] [address] Vit B12on 02-26-2023 Cobalamin (Vitamin B12) [Mass/Vol] 483 pg/mL Normal 50-1500 [facility] Comment on above: Performed By: #### 2 151372, 5195958, 2104756, 95317881, 364643927, 3510307, 2131461, 9471942, 4798574, 5744974 #### [facility] [address] [place] [address] Vitamin D 25 Hydroxyon 02-26 Vitamin D 25 Hydroxy 50.9 ng/mL Normal 30.0-100.0 [facility] Comment on above: Performed By: #### 2 925315, 3254683, 2554920, 58272090, 570806825, 8399808, 9527563, 3817730, 7290636, 2077488 ####[facility] [address] [place] [address] eGFRon 02-26-2023 eGFR 55 mL/min/1.73 m2 Low >=59 [facility] Comment on above: Order Comment: Order added by Discern Expert. Performed By: #### 2 033807, 6483524, 7179388, 78996412, 487676112, 0179916, 8452618, 9693835, 8452842, 7208625 #### [facility] [address] [place] [address] CBC w/Indiceson 02-25-2023 Erythrocyte distribution width (RBC) [Ratio] 13.2 % Normal 10.9-14.2 [facility] Comment on above: Performed By: #### 2 542595, 1865772, 5641333, 45175952, 815461918, 8678302, 3548856, 7332526, 1762144, 1798540 #### [facility] [address] [place] [address] Hematocrit (Bld) [Volume fraction] 40.6 % Normal 37.7-49.0 [facility] Comment on above: Performed By: #### 2 141208, 0648426, 3627789, 20356489, 326150310, 2209887, 6781785, 5101104, 1566837, 8110680 #### [facility] [address] [place] [address] Hemoglobin (Bld) [Mass/Vol] 13.4 g/dL Low 13.5-17.5 [facility] Comment on above: Performed By: #### 2 325970, 1796633, 9938562, 29517141, 853939233, 0679905, 8041145, 6849153, 1698080, 6466964 #### [facility] Laboratory [address] [place], [place] [address] MCH (RBC) [Entitic mass] 32.7 pg Normal 27.0-34.0 [facility] Comment on above: Performed By: #### 2 832032, 3230371, 1718882, 31119601, 895027054, 9043168, 8893359, 8471124, 5410341, 5727945 #### [facility] Laboratory [address] [place] [address] MCHC (RBC) [Mass/Vol] 33.0 g/dL Normal 31.4-36.0 [facility] Comment on above: Performed By: #### 2 523978, 3425659, 2033243, 26743519, 785050678, 7542768, 6359911, 1280269, 9639270, 3889798 #### [facility] [address] [place] [address] MCV (RBC) [Entitic vol] 99.1 fL Normal 80.0-100.0 [facility] Comment on above: Performed By: #### 2 929632, 6191179, 5999233, 65924702, 977001947, 4553958, 6548327, 6446828, 5698429, 1829809 #### [facility] [address] [place] [address] Platelet mean volume (Bld) [Entitic vol] 9.6 fL Normal 6.4-10.8 [facility] Comment on above: Performed By: #### 2 810238, 6930839, 0137767, 97857894, 230199724, 5546516, 9179974, 1647560, 8954700, 7292640 #### [facility] [address] [place] [address] Platelets (Bld) [#/Vol] 170.0 E9/L Normal 150.0-500.0 [facility] Comment on above: Performed By: #### 2 337872, 4436270, 9187389, 19418974, 178990411, 7031572, 7758188, 1357283, 2518568, 4497105 #### [facility] Laboratory [address] [place] [address] RBC (Bld) [#/Vol] 4.1 E12/L Low 4.3-5.9 [facility] Comment on above: Performed By: #### 2 464102, 5517198, 6119809, 83912471, 172522661, 6909850, 0354042, 8953807, 0259624, 0895973 #### [facility] Laboratory [address] [place] [address] WBC corrected for nucl RBC Auto (Bld) [#/Vol] 4.4 E9/L Normal 4.0-11.0 [facility] Comment on above: Performed By: #### 2 884387, 9038481, 8174565, 25321579, 874195180, 7666372, 8949062, 6339389, 1736870, 5235987 #### [facility] Laboratory [address] [place] [address] CHEMISTRYOrdered By: SYSTEM SYSTEM on 02-25-2023 Albumin [...] Free T4 [Mass/Vol] 0.66 ng/dL Normal 0.58-1.64 [facility] Comment on above: Performed By: #### 2 222604, 3469731, 7443737, 46345342, 042266976, 6943410, 6467097, 6286170, 6294636, 8246155 #### [facility] [address] [place] [address] HEMATOLOGYOrdered By: Clarence Srivastava on 02-25-2023 Erythrocyte [...] FT HemeAutoSS Physician Orderon 02-25-2023 Physician Order [id number] 5#1.00TIFF Normal [facility] TSHon 02-25-2023 TSH Qn 0.03 m[IU]/L Low 0.34-5.60 [facility] Comment on above: Performed By: #### 2 292460, 3655487, 4533916, 81636668, 172619111, 1347191, 5100409, 7709720, 1210588, 6185442 #### [facility] [address] [place] [address] PSA Screen, Totalon 11-14-19 23 Prostate specific Ag [Mass/Vol] 0.5 ng/mL Normal 0.1-3.5 [facility] Comment on above: Result Comment: The concentration of PSA determined by different manufacturers can vary due to differences in assay methods and reagent specificity. Values obtained from different assay methods cannot be used interchangeably. The methodology used for this result was chemiluminescence using [employer]'s Access Hybritech PSA reagent. Performed By: #### 1 6964395 ####[facility] [address] [place] [address] Physician Orderon 11-12-2022 Physician Order [id number] 7#1.00CD:127 Normal [facility] CNPNon 07-14-2022 CNPN Telephone ([facility]) HIRALUIS ARMANDOALETHEA FRASER ([id number]) 1970 M Date Time Provider Department 07/14/22 GO ESPINOZA [facility] During your visit today, we recorded the following information about you: Barry Brett Martinez 07/14/2022 11:31 AM Signed Grisel from [facility] is calling Requesting notes from last OV. Also would like to know what follow up is? Wanted to schedule 6 mos visit. Please advise Grisel, phone [phone] Fax number, Megan Tse MD 07/14/2022 11:34 AM Signed Can you fax my note from last week's visit [facility] to [facility]? Thanks Megan Tse MD 07/15/2022 9:20 AM [...] Fully Assessed Reason for Visit: Patient Question [9967] Prescriptions as of 07/15/2022 - alendronate (FOSAMAX) [...] evening, and 3 tablets at bedtime - iaahpbw-dlhpregbo-mc tamin D3 (OYSTER SHELL CALCIUM-VITAMIN D) 500 [...] HEMANGIOMA SKIN [D18.01] 02/02/2008 SPECIAL SYMPTOM NEC/NOS [[id number]] 02/03/2008 FRONTAL LOBE SYNDROME [F07.0] 08/02/2008 Autism spectrum disorder [F84.0] 08/02/2008 Impulse control disorder [F63.9] 08/16/2012 Intellectual disability [F79] 01/31/2021 Encounter Status:Closed by BARRY MCINTOSH on 07/14/22 [facility] 07-08-2022 [facility] Telephone ([facility]) ALETHEA LEI ([id number]) 1970 M Date Time Provider Department 07/08/22 GO ESPINOZA [facility] During your visit today, we recorded the following information about you: Barry Martinez 07/08/2022 10:39 AM Signed Records on your desk Allergies As of Date: 07/08/2022 Noted Allergy Reaction ABILIFY (ARIPIPRAZOLE) 02/01/2008 1 - Mental Status Change Comments: agressiveness PERTUSSIS VACCINES 12/13/2007 Date Reviewed: 07/08/2022 Reviewed by: Megan Tse MD - Fully Assessed Reason for Visit: Received Outside Medical Records [3576] Cmt: [facility] Prescriptions as of 07/16/2022 - alendronate (FOSAMAX) [...] evening, and 3 tablets at bedtime - eihkkwc-wvrddiyxa-qy tamin D3 (OYSTER SHELL CALCIUM-VITAMIN D) 500 [...] HEMANGIOMA SKIN [D18.01] 02/02/2008 SPECIAL SYMPTOM NEC/NOS [[id number]] 02/03/2008 FRONTAL LOBE SYNDROME [F07.0] 08/02/2008 Autism [...] by: NORMA ROSS Date: 2022-05-27 08:52 Normal [facility] XR PELVIS 1_2 VIEWSon 2022 XR PELVIS [...] by: JONAH MAJANO Date: 2022-04-14 08:21 Normal [facility] XR HIP RT 2 3V WO PELVISon 0 04-10-2022 XR HIP RT 2 3V WO PELVIS EXAM: XR HIP RT. HISTORY: . Pain in right leg . COMPARISON: None. TECHNIQUE: 2 views FINDINGS: No fracture or dislocation of the hip is noted. Joint spaces well-maintained. Surrounding soft tissues are unremarkable. IMPRESSION: Negative right hip. Electronically authenticated by: NORMA BROWN Date: 2022-04-10 08:41 Normal [facility] Glucose Poct Glucometerson 0 04-09-2022 Commemt1 Normal [facility] Comment on above: Result Comment: Glu2 : WILL NOTIFY DR/RN PERFORMED BY: [place] [id number] PATHOLOGIST SCALP SPECIALIST CHRISTINE FERNÁNDEZ M.D. Performed By: #### G LULS #### Point of Care testing , Glucose [Mass/Vol] 58 mg/dL Off scale low [facility] Comment on above: Result Comment: [place] Glucose Reference Range is dependent on time and content of last meal. Glucose of more than 200 mg/dL in a nonstressed, ambulatory subject supports the diagnosis of Diabetes Mellitus. Performed By: #### G LULS #### Point of Care testing , PET tumor init tx strat sb-m ton 04-09-2022 PET tumor init tx strat sb-mt [facility] [place] [address] [place], [place] [id number] Nuclear Medicine Report Signed Patient: Alethea Lei MR#: [id number] : 1970 Acct:[id number] Age/Sex: 52 / M ADM Date: 04/09/22 Loc: Room: Type: [facility] Attending Dr: Nallely Parada MD Copies to: [...] Guzman Jr., DCarolOCarol04/09/2022 1:09 PM Dictation Location: [place] [address] Transcribed By: [facility] 04/09/22 1309 Dictated By: Panda De Guzman Jr, DO 04/09/22 1259 Signed By: 04/09/22 1309 Normal [facility] Glucose Glucometer (BldC) [M ass/Vol]Ordered By: Nallely Parada on 03-12-2022 Glucose [Mass/Vol] 95 mg/dL [facility] Comment on above: Random Glucose Refer ence Range is dependent on time and content of last meal. Glucose of more than 200 mg/dL in a nonstressed, ambulatory subject supports the diagnosis of Diabetes Mellitus. Glucose Poct Glucometerson 0 03-12-2022 Glucose [Mass/Vol] 95 mg/dL Normal [facility] Comment on above: Result Comment: Rowena om Glucose Reference Range is dependent on time and content of last meal. Glucose of more than 200 mg/dL in a nonstressed, ambulatory subject supports the diagnosis of Diabetes Mellitus. PERFORMED BY: [facility] [address] [place] [address] PATHOLOGIST SCALP SPECIALIST CHRISTINE FERNÁNDEZ M.D. Performed By: #### G LULS #### Point of Care testing , CBC AUTO DIFFon 03-11-2022 BASO # 0.0 103/ul Normal 0.0-0.1 [facility] Comment on above: Performed By: #### C BC ####[facility] [address] [place], [place] [address]JkCarol Guille Mayo Basophils/100 WBC (Bld) 0.6 % Normal 0.2-2.0 [facility] Comment on above: Performed By: #### C BC ####[facility] [address] [place] [address]Dr. Guille Mayo EO # 0.2 103/ul Normal 0.0-0.7 [facility] Comment on above: Performed By: #### C BC ####[facility] [address] [place], [place] [address]DrCarol Kylahizzy Mayo Eosinophils/100 WBC (Bld) 2.8 % Normal 0.9-7.0 [facility] Comment on above: Performed By: #### C BC ####[facility] [address] [place], [place] [address]Dr. Kylahizyz Mayo Erythrocyte distribution width (RBC) [Ratio] 12.6 % Normal 11.0-15.0 [facility] Comment on above: Performed By: #### C BC ####[facility] [address] [place], [place] [address]DrCarol Kylahizzy Mayo Hematocrit (Bld) [Volume fraction] 40.4 % Critically low 42.0-54.0 [facility] Comment on above: Performed By: #### C BC ####[facility] [address] [place], [place] [address]DrCarol Guille Mayo Hemoglobin (Bld) [Mass/Vol] 13.7 g/dL Critically low 14.0-18.0 [facility] Comment on above: Performed By: #### C BC ####[facility] [address] [place], [place] [address]DrCarol Kylahizzy Mayo IG # 0.02 10e3/ul Normal 0.00-0.03 [facility] Comment on above: Performed By: #### C BC ####[facility] [address] [place], [place] [address]DrCarol Mayo IG % 0.4 % Normal 0.0-0.5 [facility] Comment on above: Performed By: #### C BC ####[facility] [id number] [place], [place] [address]DrCarol Mayo LYMPH # 1.1 103/ul Critically low 1.2-3.8 [facility] Comment on above: Performed By: #### C BC ####[facility] [address] [place] [address]DrCarol Mayo Lymphocytes/100 WBC (Bld) 20.8 % Normal 20.5-60.0 [facility] Comment on above: Performed By: #### C BC ####[facility] [address]kb[address] [place] [address]DrCarol Mayo MANUAL DIFF REQ NO Normal [facility] Comment on above: Performed By: #### C BC ####[facility] [address] [place] [address]DrCarol Mayo MCH (RBC) [Entitic mass] 32.3 pg Normal 25.9-34.0 [facility] Comment on above: Performed By: #### C BC ####[facility] Idx[address] [place], [place] [address]DrCarol Mayo MCHC (RBC) [Mass/Vol] 33.9 g/dL Normal 29.9-35.2 [facility] Comment on above: Performed By: #### C BC ####[facility] [address] [place], [place] [address]DrCarol Mayo MCV (RBC) [Entitic vol] 95.3 fL Critically high 80.0-94.0 [facility] Comment on above: Performed By: #### C BC ####[facility] [address] [place], [place] [address]DrCarol Mayo MONO # 0.4 103/ul Normal 0.3-0.8 [facility] Comment on above: Performed By: #### C BC ####[facility] W[address]cj[address] [place], [place] [address]DrCarol Mayo Monocytes/100 WBC (Bld) 7.4 % Normal 1.7-12.0 [facility] Comment on above: Performed By: #### C BC ####[facility] To[address] [place], [place] [address]DrCarol Mayo NEUT # 3.7 103/ul Normal 1.4-6.5 [facility] Comment on above: Performed By: #### C BC ####[facility] [address] [place] [id number]. Guille Mayo Neutrophils/100 WBC (Bld) 68.0 % Normal 43.0-75.0 [facility] Comment on above: Performed By: #### C BC ####[facility] [address] [place] [id number]. Guille Mayo Platelet mean volume (Bld) [Entitic vol] 10.4 fL Normal 9.5-13.5 [facility] Comment on above: Performed By: #### C BC ####[facility] [address]tr[address] [place] [id number]. Guille Mayo PLT 133 103/ul Critically low 150-450 [facility] Comment on above: Performed By: #### C BC ####[facility] [address] [place] [id number]. Guille Mayo RBC 4.24 106/ul Critically low 4.70-6.10 [facility] Comment on above: Performed By: #### C BC ####[facility] [address] [place] [id number]. Guille Mayo WBC 5.4 103/ul Normal 4.0-11.0 [facility] Comment on above: Performed By: #### C BC ####[facility] [address] [place] [id number] Mayo FREE T4on 03-11-2022 Free T4 [Mass/Vol] 0.68 ng/dL Critically low 0.76-1.46 Th [facility] Comment on above: Performed By: #### F T4 #### [facility] [id number] uGille Mayo LIPID PROFILEon 03-11-2022 CHOL-HDL RATIO NORM SEE BELOW Normal [facility] Comment on above: Result Comment: 3.3 - 4.4 LOW RISK 4.4 - 7.1 AVERAGE RISK 7.1 - 11.0 MODERATE RISK >11.0 HIGH RISK Performed By: #### L IPID, TSH, CMP #### [facility] [address] [place] [address] [address] Guille Mayo Cholesterol [Mass/Vol] 130 mg/dL Normal <=200 [facility] Comment on above: Performed By: #### L IPID, TSH, CMP #### [facility] [address] [address] [address] Guille Mayo Cholesterol in HDL [Mass/Vol] 45 mg/dL Normal 40-60 [facility] Comment on above: Performed By: #### L IPID, TSH, CMP #### [facility] [address] [address] [address] Guille Mayo Cholesterol in LDL [Mass/Vol] 67.6 mg/dL Normal [facility] Comment on above: Performed By: #### L IPID, TSH, CMP #### [facility] [address] [address] [address] Guille Mayo Cholesterol.total/Cho lesterol in HDL [Mass ratio] 2.9 {ratio} Normal [facility] Comment on above: Performed By: #### L IPID, TSH, CMP #### [facility] [address] [address] [address] Guille Mayo HDL NORMAL > or = 60 mg/dl - LOW CARDIOVASCULAR RISK <40 mg/dl - HIGH CARDIOVASCULAR RISK Normal [facility] Comment on above: Performed By: #### L IPID, TSH, CMP #### [facility] [address] [address] [address] Guille Mayo LDL CALC NORMAL SEE BELOW Normal [facility] Comment on above: Result Comment: <100 mg/dl OPTIMAL 100 - 129 mg/dl NEAR OR ABOVE OPTIMAL 130 - 159 mg/dl BORDERLINE HIGH 160 - 189 mg/dl HIGH >190 mg/dl VERY HIGH Performed By: #### L IPID, TSH, CMP #### [facility] [address] [address] [address] Guille Mayo Triglyceride [Mass/Vol] 87 mg/dL Normal <=150 [facility] Comment on above: Performed By: #### L IPID, TSH, CMP #### [facility] [address] [address] [address] Guille Mayo VLDL CALC 17.4 mg/dL Normal [facility] Comment on above: Performed By: #### L IPID, TSH, CMP #### [facility] [address] [address] [address] Guille Mayo PROF 14(COMP METB)on 023 Albumin [Mass/Vol] 3.8 g/dL Normal 3.4-5.0 [facility] Comment on above: Performed By: #### L IPID, TSH, CMP #### [facility] [address] [address] [address] Guille Mayo Albumin/Globulin [Mass ratio] 1.0 {ratio} Normal [facility] Comment on above: Performed By: #### L IPID, TSH, CMP #### [facility] [address] [place] [address] Dr. Guille Mayo ALP [Catalytic activity/Vol] 217 U/L Critically high 46-116 [facility] Comment on above: Performed By: #### L IPID, TSH, CMP #### [facility] [address] [address] [address] Guille Mayo ALT [Catalytic activity/Vol] 38 U/L Normal 16-63 [facility] Comment on above: Performed By: #### L IPID, TSH, CMP #### [facility] [address] [address] [address] Guille Mayo Anion gap [Moles/Vol] 12.2 mmol/L Normal [facility] Comment on above: Performed By: #### L IPID, TSH, CMP #### [facility] [address] [address] [address] Guille Mayo AST [Catalytic activity/Vol] 32 U/L Normal 15-37 [facility] Comment on above: Performed By: #### L IPID, TSH, CMP #### [facility] [address] [address] [address] Guille Mayo Bilirubin [Mass/Vol] 0.3 mg/dL Normal 0.2-1.0 [facility] Comment on above: Performed By: #### L IPID, TSH, CMP #### [facility] [address] [address] [address] Guille Mayo Calcium [Mass/Vol] 9.3 mg/dL Normal 8.5-10.1 [facility] Comment on above: Performed By: #### L IPID, TSH, CMP #### [facility] [address] [place] [address] Dr. Guille Mayo Chloride [Moles/Vol] 106 mmol/L Normal 98-107 [facility] Comment on above: Performed By: #### L IPID, TSH, CMP #### [facility] [address] [place] [address] Dr. Guille Mayo CO2 [Moles/Vol] 27.2 mmol/L Normal 21.0-32.0 [facility] Comment on above: Performed By: #### L IPID, TSH, CMP #### [facility] [address] [place] [address] Dr. Guille Mayo Creatinine [Mass/Vol] 1.31 mg/dL Critically high 0.70-1.30 [facility] Comment on above: Performed By: #### L IPID, TSH, CMP #### [facility] [address] [place] [address] Dr. Guille Mayo EGFR-AF [place] >60 Normal >=60 [facility] Comment on above: Performed By: #### L IPID, TSH, CMP #### [facility] [address] [place] [address] Dr. Guille Mayo EGFR-NON AF [place] 57 mL/min/1.73m2 Critically low >=60 [facility] Comment on above: Performed By: #### L IPID, TSH, CMP #### [facility] [address] [place] [address] Dr. Guille Mayo Globulin (S) [Mass/Vol] 3.8 g/dL Normal [facility] Comment on above: Performed By: #### L IPID, TSH, CMP #### [facility] [address] [place] [address] Dr. Guille Mayo Glucose [Mass/Vol] 98 mg/dL Normal 74-106 [facility] Comment on above: Performed By: #### L IPID, TSH, CMP #### [facility] [address] [address] [address] Guille Mayo Potassium [Moles/Vol] 4.4 mmol/L Normal 3.5-5.1 [facility] Comment on above: Performed By: #### L IPID, TSH, CMP #### [facility] [address] [address] [address] Guille Mayo Protein [Mass/Vol] 7.6 g/dL Normal 6.4-8.2 [facility] Comment on above: Performed By: #### L IPID, TSH, CMP #### [facility] [address] [address] [address] Guille Mayo Sodium [Moles/Vol] 141 mmol/L Normal 136-145 [facility] Comment on above: Performed By: #### L IPID, TSH, CMP #### [facility] [address] [address] [address] Guille Mayo Urea nitrogen [Mass/Vol] 27.0 mg/dL Critically high 7.0-18.0 [facility] Comment on above: Performed By: #### L IPID, TSH, CMP #### [facility] [address] [address] [address] Guille Mayo Urea nitrogen/Creatinine [Mass ratio] 20.6 mg/mg Normal [facility] Comment on above: Performed By: #### L IPID, TSH, CMP #### [facility] [address] [address] [address] Guille Mayo TSHon 03-11-2022 TSH 0.278 uIU/mL Critically low 0.358-3.740 [facility] Comment on above: Performed By: #### L IPID, TSH, CMP ####[facility] [address] [place] [address]Dr. Guille Mayo XR ankle RT min 3V*on 2021 XR ankle RT min 3V* [facility] [address] [place] [address] XRay Report Signed Patient: Alethea Lei MR#: [id number] : 1970 Acct:[id number] Age/Sex: 51 / M ADM Date: 01/06/22 Loc: [facility] Room: Type: [facility] Attending Dr: Cj Gayle DO Copies to: [...] Geovanny Magallanes M.D.01/06/2022 3:54 PM Dictation Location: [place] [address] Transcribed By: [facility] 01/06/22 1554 Dictated By: Geovanny Magallanes DO 01/06/22 1553 Signed By: 01/06/22 1554 Normal [facility] XR ankle RT min 3V* [facility] [employer] Other XR ankle RT min 3V* [facility] [employer] Other XR ankle RT min 3V* [address] [place] [address] [employer] Other XR ankle RT min 3V* [place] [address] [facility] [employer] Other XR ankle RT min 3V* XRay Report [facility] [employer] Other XR ankle RT min 3V* Signed [facility] [employer] Other XR ankle RT min 3V* Patient: Alethea Lei MR#: [id number] [facility] [employer] Other XR ankle RT min 3V* : 1970 Acct:[id number] [facility] Other XR ankle RT min 3V* Age/Sex: 51 / M ADM Date: 01/06/22 [facility] Other XR ankle RT min 3V* Loc: [facility] Room: Type: [facility] Other XR ankle RT min 3V* Attending Dr: Cj Gayle DO [facility] Other XR ankle RT min 3V* Copies to: Cj Gayle DO [facility] Other XR ankle RT min 3V* Ordering Provider: Cj Gayle DO [facility] Other XR ankle RT min 3V* Date of Service: 01/06/22 [facility] Other XR ankle RT min 3V* XR/XR ankle RT min 3V*: Displaced fracture of lateral malleolus of right [facility] Other XR ankle RT min 3V* fibula, sub [place] Other XR ankle RT min 3V* 3views Rightankle [facility] Other XR ankle RT min 3V* COMPARISON:11/22/21 [facility] Other XR ankle RT min 3V* HISTORY: Status post ORIF RIGHT lateral malleolus fracture [facility] Other XR ankle RT min 3V* No hardware failure. Adequate bony alignment. Continued healing of distal fibular fracture. [facility] Other XR ankle RT min 3V* XR/XR ankle RT min 3V* [facility] Other XR ankle RT min 3V* IMPRESSION: Healing fracture. No hardware failure. [facility] Other XR ankle RT min 3V* Impression dictated by: Geovanny Magallanes M.D.01/06/2022 3:54 PM [facility] Other XR ankle RT min 3V* Dictation Location: [facility]-- [facility] Other XR ankle RT min 3V* Transcribed By: WENDY 01/06/22 1552 [facility] Other XR ankle RT min 3V* Dictated By: Geovanny Magallanes DO 01/06/22 1553 [facility] Other XR ankle RT min 3V* Signed By: [facility] Other XR ankle RT min 3V* 01/06/22 1556 No rt [place] Other Progress Noteson 12-04-2021 [employer] Authentication Interface Message Text Normal [facility] [employer] Authentication Interface Message Text ----- Saturday, December 04, 2021 at 11:22:04 AM ----- ----- Provider: [id number] Redmond Hygienist -- Clinic: [place] ----- [facility], Pt is ready for tx. Pt presented with caries Radiograph taken today: none Discussed the medical necessity of the problem with the pt. Instructions given to pt. Caregiver understood the situation and is okay with medications for today. Pt will come back should things get worse. Guardianship: PARENTS - Nabila Iniguez (Kathy)[place] [address] / Email: [email or web address] Communicated with caregiver that the pt was placed on the OR list and we will call with appt. Limited exam completed by Dr. Noel STEPHENS. OR ----- Signed on Saturday, December 04, 2021 at 11:51:43 AM ----- ----- Provider: [id number] Tucker Myers DDS -- Clinic: [place] ----- Normal [facility] XR ankle RT min 3V*on 2021 XR ankle RT min 3V* [facility] Main [address] [address] XRay Report Signed Patient: Alethea Lei MR#: [id number] : 1970 Acct:[id number] Age/Sex: 51 / M ADM Date: 11/22/21 Loc: [facility] Room: Type: REG CLI [...] Guzman Jr., MunaOCarol11/22/2021 2:39 PM Dictation Location: [place] [address] Transcribed By: [facility] 11/22/21 1439 Dictated By: Panda De Guzman Jr, DO 11/22/21 1438 Signed By: 11/22/21 1439 Normal [facility] XR ankle RT min 3V*on 2021 XR ankle RT min 3V* [facility] Main [address] [address] XRay Report Signed Patient: Alethea Lei MR#: [id number] : 1970 Acct:[id number] Age/Sex: 51 / M ADM Date: 10/16/21 Loc: [facility] Room: Type: REG CLI [...] 1:10 PM Dictation Location: [id number]-11 Transcribed By: [facility] 10/16/21 1310 Dictated By: Panda De Guzman Jr, DO 10/16/21 1307 Signed By: 10/16/21 1310 Normal [facility] XR ankle RT min 3V* [facility] [employer] Other XR ankle RT min 3V* [facility] [employer] Other XR ankle RT min 3V* [address] [place] [address] [employer] Other XR ankle RT min 3V* [place] [address] [facility] Other XR ankle RT min 3V* XRay Report [place] Other XR ankle RT min 3V* Signed [facility] Other XR ankle RT min 3V* Patient: Alethea Lei MR#: [id number] [facility] Other XR ankle RT min 3V* : 1970 Acct:[id number] [facility] Other XR ankle RT min 3V* Age/Sex: 51 / M ADM Date: 10/16/21 [facility] Other XR ankle RT min 3V* Loc: [place] Room: Type: [facility] Other XR ankle RT min 3V* Attending Dr: Cj Gayle DO [facility] Other XR ankle RT min 3V* Copies to: Cj Gayle, DO [facility] Other XR ankle RT min 3V* Ordering Provider: Cj Gayle, DO [facility] Other XR ankle RT min 3V* Date of Service: 10/16/21 [facility] Other XR ankle RT min 3V* XR/XR ankle RT min 3V*: Displaced fracture of lateral malleolus of right [facility] Other XR ankle RT min 3V* fibula, [facility] [email or web address] Other XR ankle RT min 3V* RIGHT ANKLE - 3 views [facility] Other XR ankle RT min 3V* CLINICAL HISTORY: ORIF right lateral malleolus fracture. Follow up [facility] Other XR ankle RT min 3V* COMPARISON: Intraoperative study 09/24/2021 [facility] Other XR ankle RT min 3V* FINDINGS: [facility] Other XR ankle RT min 3V* syndesmotic screw without evidence of hardware complication. Fracture line is still evident [facility] Other XR ankle RT min 3V* suggestive of incomplete healing. Medial malleolar fracture is unchanged.. Soft tissue swelling. [facility] Other XR ankle RT min 3V* Plantar spurring. [facility] Other XR ankle RT min 3V* XR/XR ankle RT min 3V* [facility] Other XR ankle RT min 3V* IMPRESSION: [employer] Other XR ankle RT min 3V* NO EVIDENCE OF HARDWARE COMPLICATION. [facility] Other XR ankle RT min 3V* Impression dictated by: Panda De Guzman Jr., D.O.10/16/2021 1:10 PM [facility] Other XR ankle RT min 3V* Dictation Location: [facility]-- [facility] Other XR ankle RT min 3V* Transcribed By: PWS 10/16/21 1310 [facility] Other XR ankle RT min 3V* Dictated By: Panda De Guzman Jr DO 10/16/21 1307 [facility] Other XR ankle RT min 3V* Signed By: [facility] Other XR ankle RT min 3V* 10/16/21 1310 No [email or web address] Other ECG 12 lead ECGon 09-24-2021 ECG 12 lead ECG [facility] Main [place] [address] [place] [address] Electrocardiograph Report Signed Patient: Alethea Lei MR#: [id number] : 1970 Acct:[id number] Age/Sex: 51 / M ADM Date: 09/24/21 Loc: [place] Room: Type: [facility] Attending Dr: Cj Gayle DO Ordering Provider: [...] MUS Signed By Zafar Spicer DO 09/24 1903 Normal [facility] XR ankle RT min 3V*on 2021 XR ankle RT min 3V* [facility] Main [place] [address] [place], [place] [id number] XRay Report Signed Patient: Alethea Lei MR#: [id number] : 1970 Acct:[id number] Age/Sex: 51 / M ADM Date: 09/24/21 Loc: [place] Room: Type: [facility] Attending Dr: Cj Gayle DO Copies to: Cj Gayel DO Ordering Provider: Cj Gayle DO Date [...] Guzman Jr., DCarolOCarol09/24/2021 4:10 PM Dictation Location: [place] [address] Transcribed By: [facility] 09/24/21 1610 Dictated By: Panda De Guzman Jr, DO 09/24/21 1609 Signed By: 09/24/21 1610 Normal [facility] SARS-CoV-2 (COVID-19) RNA GARY+probe Ql (Unsp spec) Negative Normal Negative [facility] Comment on above: Order Comment: Comme nt OR 09/24/21 Healthcare Worker?: N Result Comment: Testing for SARS-CoV-2 by RT-PCR This test was developed and its performance characteristics determined by [employer] ([employer]) and validated at the [facility]. This test has not been FDA [...] is terminated or revoked sooner. PERFORMED BY: [facility] [address] [place] [id number] PATHOLOGIST SCAL[employer] SPECIALIST CHRISTINE FERNÁNDEZ M.D. Performed By: #### C OVID 19 [facility] #### [facility] [address] COVID-19 Positive/NegativeOr dered By: Cj Gayle on 09-23-2021 SARS-CoV-2 (COVID-19) N gene GARY+probe Ql (Resp) Negative Negative [facility] Comment on above: Testing for SARS-CoV -2 by RT-PCR This test was developed and its performance characteristics determined by [employer] ([employer]) and validated at the [facility]. This test has not been FDA [...] 09-18-2021 BASO # 0.0 103/ul Normal 0.0-0.1 [facility] Comment on above: Performed By: #### C BC ####[facility] [address] [place] [address]Dr. Guille Mayo Basophils/100 WBC (Bld) 0.2 % Normal 0.2-2.0 [facility] Comment on above: Performed By: #### C BC ####[facility] [address] [place], [place] [address]Dr. Guille Mayo EO # 0.1 103/ul Normal 0.0-0.7 [facility] Comment on above: Performed By: #### C BC ####[facility] [address] [place], [place] [address]Dr. Guille Mayo Eosinophils/100 WBC (Bld) 1.2 % Normal 0.9-7.0 [facility] Comment on above: Performed By: #### C BC ####[facility] Tgwxzeibsi[address] [place], [place] [address]Dr. Guille Mayo Erythrocyte distribution width (RBC) [Ratio] 12.2 % Normal 11.0-15.0 [facility] Comment on above: Performed By: #### C BC ####[facility] X[address] [place], [place] [address]Dr. Guille Mayo Hematocrit (Bld) [Volume fraction] 38.0 % Critically low 42.0-54.0 [facility] Comment on above: Performed By: #### C BC ####[facility] Aff[address] [place], [place] [address]Dr. Guille Mayo Hemoglobin (Bld) [Mass/Vol] 12.8 g/dL Critically low 14.0-18.0 [facility] Comment on above: Performed By: #### C BC ####[facility] [address] [place], [place] [address]Dr. Guille Mayo IG # 0.03 10e3/ul Normal 0.00-0.03 [facility] Comment on above: Performed By: #### C BC ####[facility] C[address] [place], [place] [address]Dr. Guille Mayo IG % 0.4 % Normal 0.0-0.5 [facility] Comment on above: Performed By: #### C BC ####[facility] [address] [place], [place] [address]Dr. Guille Mayo LYMPH # 0.9 103/ul Critically low 1.2-3.8 [facility] Comment on above: Performed By: #### C BC ####[facility] [address] [place] [address]Dr. Guille Mayo Lymphocytes/100 WBC (Bld) 10.7 % Critically low 20.5-60.0 [facility] Comment on above: Performed By: #### C BC ####[facility] [address] [place], [place] [address]Dr. Guille Mayo MANUAL DIFF REQ NO Normal [facility] Comment on above: Performed By: #### C BC ####[facility] Xe[address] [place], [place] [address]Dr. Guille Mayo MCH (RBC) [Entitic mass] 32.2 pg Normal 25.9-34.0 [facility] Comment on above: Performed By: #### C BC ####[facility] [address] [place], [place] [address]DrCarol Mayo MCHC (RBC) [Mass/Vol] 33.7 g/dL Normal 29.9-35.2 [facility] Comment on above: Performed By: #### C BC ####[facility] [address] [place], [place] [address]Dr. Guille Mayo MCV (RBC) [Entitic vol] 95.7 fL Critically high 80.0-94.0 [facility] Comment on above: Performed By: #### C BC ####[facility] [address] [place], [place] [address]Dr. Guille Mayo MONO # 0.7 103/ul Normal 0.3-0.8 [facility] Comment on above: Performed By: #### C BC ####[facility] Y[address] [place], [place] [address]Dr. Guille Mayo Monocytes/100 WBC (Bld) 9.0 % Normal 1.7-12.0 [facility] Comment on above: Performed By: #### C BC ####[facility] [address] [place], [place] [address]Dr. Guille Mayo NEUT # 6.4 103/ul Normal 1.4-6.5 [facility] Comment on above: Performed By: #### C BC ####[facility] [address] [place] [address]Dr. Guille Mayo Neutrophils/100 WBC (Bld) 78.5 % Critically high 43.0-75.0 [facility] Comment on above: Performed By: #### C BC ####[facility] [address] [place] [address]Dr. Guille Mayo Platelet mean volume (Bld) [Entitic vol] 9.9 fL Normal 9.5-13.5 [facility] Comment on above: Performed By: #### C BC ####[facility] [address] [place] [address]Dr. Guille Mayo PLT 152 103/ul Normal 150-450 [facility] Comment on above: Performed By: #### C BC ####[facility] [address] [place] [address]Dr. Guille Mayo RBC 3.97 106/ul Critically low 4.70-6.10 [facility] Comment on above: Performed By: #### C BC ####[facility] [address] [place] [address]Dr. Guille Mayo WBC 8.1 103/ul Normal 4.0-11.0 [facility] Comment on above: Performed By: #### C BC ####[facility] [address] [place] [id number]. Guille Mayo CT HEAD WO CONon 09-18-2021 [...] SANDY DÍAZ Date: 2021-09-18 15:44 Normal [facility] Covid-19 PCR (CVDTBH)on 08-24 SARS-CoV-2 (COVID-19) RNA GARY+probe Ql (Unsp spec) Not detected Normal NOT DETECTED [facility] Comment on above: Result Comment: When [...] for this test is supported by the Produce Department Supervisor of Health and Human Service's declaration that [...] be used). Performed By: #### C VDTBH ####[facility] [address] [place] [address]DrCarol Mayo PROF CHEM 8 (BAS METB)on Anion gap [Moles/Vol] 12.4 mmol/L Normal [facility] Comment on above: Performed By: #### B MP ####[facility] [address] [place] [id number]. Guille Mayo Calcium [Mass/Vol] 8.7 mg/dL Normal 8.5-10.1 [facility] Comment on above: Performed By: #### B MP ####[facility] [address] [place] [id number] Mayo Chloride [Moles/Vol] 107 mmol/L Normal 98-107 [facility] Comment on above: Performed By: #### B MP ####[facility] [address] [place] [address]Dr. Guille Mayo CO2 [Moles/Vol] 28.0 mmol/L Normal 21.0-32.0 [facility] Comment on above: Performed By: #### B MP ####[facility] [address] [place] [address]Dr. Guille Mayo Creatinine [Mass/Vol] 1.45 mg/dL Critically high 0.70-1.30 [facility] Comment on above: Performed By: #### B MP ####[facility] [address] [place], [place] [address]Dr. Guille Mayo EGFR-AF [place] >60 Normal >=60 [facility] Comment on above: Performed By: #### B MP ####[facility] [address] [place], [place] [address]Dr. Guille Mayo EGFR-NON AF [place] 51 mL/min/1.73m2 Critically low >=60 [facility] Comment on above: Performed By: #### B MP ####[facility] Ish[address] [place], [place] [address]Dr. Guille Mayo Glucose [Mass/Vol] 87 mg/dL Normal 74-106 [facility] Comment on above: Performed By: #### B MP ####[facility] [address] [place], [place] [address]Dr. Guille Mayo Potassium [Moles/Vol] 4.4 mmol/L Normal 3.5-5.1 [facility] Comment on above: Performed By: #### B MP ####[facility] Q[address] [place], [place] [address]Dr. Guille Mayo Sodium [Moles/Vol] 143 mmol/L Normal 136-145 [facility] Comment on above: Performed By: #### B MP ####[facility] [address] [place], [place] [address]Dr. Guille Mayo Urea nitrogen [Mass/Vol] 24.0 mg/dL Critically high 7.0-18.0 [facility] Comment on above: Performed By: #### B MP ####[facility] [address] [place], [place] [address]Wa. Guille Mayo Urea nitrogen/Creatinine [Mass ratio] 16.6 mg/mg Normal [facility] Comment on above: Performed By: #### B MP ####[facility] [address] [place], [place] [address]Lh. Guille Mayo XR CHEST 1 Von 09-18-2021 [...] SANDY DÍAZ Date: 2021-09-18 15:36 Normal [facility] CT CHEST WO CONon 08-02-2021 CT [...] by: NORMA ROSS Date: 2021-08-02 08:52 Normal [facility] XR DEXA BONE DENSITYon 07-31 XR DEXA [...] by: NORMA ROSS Date: 2021-07-31 16:14 Normal [facility] Anesthesia Attestationon [employer] Authentication Interface Message Text Anesthesia Attestation ATTESTATION OF INFORMED CONSENT FOR ANESTHESIA Anesthesia options were discussed with the patient and/or legal medical device sales representative. The risks, benefits and alternatives were reviewed. Questions regarding anesthesia were answered. Patient and/or legal medical device sales representative knows such anesthetics and procedures may be performed by Resident physicians, Certified Anesthesiologist Assistants, or Certified Nurse Anesthetists under the supervision of a physician. The patient /or the patient's legal medical device sales representative agree with the plan for anesthesia. Normal [facility] Anesthesia Postprocedure Zo luationon 01-25-2021 [employer] Authentication Interface Message Text Anesthesia Postoperative Assessment: [...] ANESTHESIA COMPLICATIONS: No complications documented. Normal [facility]est[facility] [place] 01-25-20[facility] [employer] Authentication Interface Message Text Patient taken to [...] Simi Edwards DDS Anesthesiologist: Jero Peralta MD Solvent Plant Operator: Anson Schwartz MD DENTAL RESTORATIONS (Bilateral ) [...] was received. Anson Schwartz MD Normal [facility] Blood Attestationon 01-26-20 [employer] Authentication Interface Message Text Blood Attestation ATTESTATION OF INFORMED CONSENT FOR BLOOD The transfusion of blood and/or blood components were discussed with the patient and/or legal medical device sales representative. The risks, benefits and alternatives were reviewed. Questions regarding blood transfusions were answered. The patient /or the patient's legal medical device sales representative agree with the plan for transfusion of blood and/or blood components. 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 Procedures: Full mouth X-ray 03531 Exam 19695 Cleaning 96584 Buddhism 58378 Fluoride 96056 Excisional biopsy 67440 No data filed Surgeon(s): Surgeon(s): Simi Edwards DDS Staff: Systems Tester Nurse: Deborah Chapman RN; Crystal Anderson RN Tavern Operator: Carolyn López DDS Anesthesia: General Anesthesiologist: Jero Peralta MD Solvent Plant Operator: Anson Schwartz MD Specimen(s): ID Type Source [...] López DDS 01/25/2021 12:11 PM Normal [facility] OP Noteon 01-25-2021 [employer] Authentication Interface Message Text Surgical Case Number Data Unavailable Operating Room Data Unavailable Preoperative Diagnosis(es): Dental caries [966484] Autism spectrum disorder F84.0 Moderate intellectual disability F79 Seizure disorder G40.89 Postoperative Diagnosis(es): Autism spectrum disorder F84.0 Moderate intellectual disability F79 Seizure disorder G40.89 Dental caries [667463] 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 dukkmgv-elgiyzctps-v cellular pertussis (BOOSTRIX) 5-2.5-18.5 LF-MCG/0.5 injection Inject 0.5 mL into the muscle. Dictated by: Carolyn López DDS: Simi Joyner DDS was present for the critical portions of the procedure. 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 * upnuptb-qawztiibzl-d cellular pertussis (BOOSTRIX) 5-2.5-18.5 LF-MCG/0.5 injection Inject 0.5 mL into the muscle. Dictated by: Carolyn López DDS: Simi Joyner DDS was present for the critical portions of the procedure. Carolyn López DDS 01/25/2021 12:18 PM Normal [facility] Anesthesia Preprocedure Eval justoon 01-24-2021 [employer] Authentication Interface Message Text ASA: 3 No [...] the history and physical examination. Normal [facility] Telephone Encounteron 2020 [employer] Authentication Interface Message Text Informed Consent for dental surgery AND Anesthesia consent obtained and scanned into [employer]. Scheduled for surgery 01/25/2021. Normal [facility] AUD - Progress Noteson 04-20 Protein mass conc Pt. referred for hearing evaluation by Dr. Espinoza, accompanied by Caitie, a direct care provider from [facility]. Pt. returns today after having ears cleaned out. Pt. denied ear pain at the time of testing. Completed evaluation, resorting to play audiometry for pure tone testing. See AUD-Assessments for Report/Results. DX CODES: H90.3 sensorineural hearing loss bilateral Normal [facility] Coding Summary.on 04-20-2018 Coding Summary. CODING DATE: 04/20/2018 FINAL [facility] STATUS: PAYOR: Medicare APC DESCRIPTION [...] CphT Date Saved: 04/20/2018 09:11 pm Normal [facility] AUD - Progress Noteson 03-31 Protein mass conc pt. referred for hearing evaluation by Muna Espinoza DO, accompanied by Darius direct care provider from [facility]. Otoscopy revealed cerumen in the right ear canal clocking view of the tympanic membrane, left ear with moderate cerumen but tympanic membrance visible. Discussed with Saurabh, did not complete evaluation today. He will return after bilateral ear cleaning. Called and spoke to [facility]/Nursing/Ainsley and advised her of the above. Normal [facility] Mohit 09-09-2016 Alanine aminotransferase (ALT) 35 U/L Normal <40 [facility] Soni 09-09-2016 Aspartate aminotransferase (AST) 26 U/L Normal 15-50 [facility] Albuminon 09-09-2016 Albumin 4.5 g/dL Normal 3.4-5.2 [facility] BUNon 09-09-2016 Urea nitrogen 21 mg/dL High 5-18 [facility] Creatinineon 09-09-2016 Creatinine 1.21 mg/dL High 0.50-1.20 [facility] Electrolyteson 09-09-2016 Chloride 107 mmol/L High 95-106 [facility] CO2 24 mmol/L Normal 24-35 [facility] Potassium molar conc 4.4 mmol/L Normal 3.7-5.3 [facility] mmol/L Normal 135-145 [facility] Vital Signs Date Time Vital Sign Value Performing Clinician Facility 01-06-2022 12:30-0500 Body height 177.8 cm Cj Gayle Other [facility] Other 01-06-2022 12:30-0500 Body mass index (BMI) [Ratio] 27.69 kg/m2 Cj Gayle Other [facility] Other 01-06-2022 12:30-0500 Body weight 87.54 kg Cj Gayle Other [facility] Other 09-24-2021 17:03-0400 Diastolic blood pressure 100 mm[Hg] DO Go Espinoza Work Phone: [facility] 09-24-2021 17:03-0400 Heart rate 79 /min DO Go Espinoza Work Phone: [facility] 09-24-2021 17:03-0400 Respiratory rate 16 /min DO Go Espinoza Work Phone: [facility] 09-24-2021 17:03-0400 SaO2% (BldA) [Mass fraction] 94 % DO Go Espinoza Work Phone: [facility] 09-24-2021 17:03-0400 Systolic blood pressure 156 mm[Hg] DO Go Espinoza Work Phone: [facility] 09-24-2021 15:05-0400 Body temperature 97.1 [degF] DO Go Espinoza Work Phone: [facility] 09-24-2021 15:05-0400 Inhaled oxygen flow rate 6 L/min DO Go Espinoza Work Phone: [facility] 09-24-2021 14:22-0400 Body height 172.72 cm DO Go Espinoza Work Phone: [facility] 09-24-2021 14:22-0400 Body mass index (BMI) [Ratio] 29.6 kg/m2 DO Go Espinoza Work Phone: [facility] 09-24-2021 14:22-0400 Body weight 88.4 kg DO Go Espinoza Work Phone: [facility] 08-14-2021 10:45-0400 Body height 177.8 cm Nallely Elenanoemi Other [facility] Other 08-14-2021 10:45-0400 Body mass index (BMI) [Ratio] 27.55 kg/m2 Nallely Tal Other [facility] Other 08-14-2021 10:45-0400 Body temperature 97 [degF] Nallely Parada Other [facility] Other 08-14-2021 10:45-0400 Body weight 87.09 kg Nallely Parada Other [facility] Other 08-14-2021 10:45-0400 Diastolic blood pressure 84 mm[Hg] Nallely Parada Other [facility] Other 08-14-2021 10:45-0400 Respiratory rate 20 /min Nallely Tal Other [facility] Other 08-14-2021 10:45-0400 SaO2% (BldA) [Mass fraction] 98 % Estebanred Tal Other [facility] Other 08-14-2021 10:45-0400 Systolic blood pressure 132 mm[Hg] Nallely Parada Other [facility] Other Encounters Encounter Date Encounter Type Care Provider Facility Start: 05-12-2023 End: 05-12-2023 ambulatory SUMEET SWANSON Facility:[facility] Start: 02-25-2023 End: 02-25-2023 Lab Drop off GO ESPINOZA [facility] Start: 02-25-2023 End: 02-26-2023 ambulatory GO ESPINOZA Facility:[facility] Start: 02-05-2023 End: 02-05-2023 ambulatory PITER BROWN Not Available Start: 11-12-2022 End: 11-13-2022 ambulatory GO ESPINOZA Facility:[facility] Start: 11-12-2022 End: 11-12-2022 Lab Drop off GO ESPINOZA [facility] Start: 07-08-2022 End: 07-08-2022 ambulatory MEGAN TSE Facility:[facility] Start: 05-27-2022 End: 05-28-[address] GO ESPINOZA Facility:[facility] Start: 04-24-2022 Letter encounter Vadim patton Start: 04-11-2022 End: 04-12-[address] GO ESPINOZA Facility:[facility] Start: 04-10-2022 End: 04-11-[address] GO ESPINOZA Facility:[facility] Start: 04-09-2022 Telephone encounter Nallely Parada [facility] Start: 04-09-2022 End: 04-09-2022 ambulatory Go Espinoza Facility:[facility] Start: 03-12-2022 End: 03-12-2022 ambulatory Go Espinoza Facility:[facility] Start: 03-12-2022 End: 03-12-2022 ambulatory DO Go Espinoza Work Phone: [facility] Work Phone: Start: 03-12-2022 End: 03-12-2022 Patient encounter procedure DO Go Espinoza Work Phone: [facility] Work Phone: Start: 03-11-2022 End: 03-12-[address] GO ESPINOZA Facility:[facility] Start: 02-06-2022 End: 02-06-2022 ambulatory Nallely Parada Other [facility] Other Start: 02-06-2022 Telephone encounter Nallely Parada [facility] Start: 01-07-2022 End: 01-07-2022 ambulatory Cj Gayle Other [facility] Other Start: 01-07-2022 Telephone encounter Cj Gayle [facility] Start: 01-06-2022 Postop follow up vis it related to original px Cj Nalini [facility] Start: 01-06-2022 End: 01-06-2022 ambulatory Cj Gayle Facility:[facility] Start: 01-06-2022 End: 01-06-2022 ambulatory DO Go Espinoza Work Phone: [facility] Work Phone: Start: 01-06-2022 End: 01-06-2022 Patient encounter procedure DO Go Espinoza Work Phone: [facility] Start: 12-04-2021 End: 12-06-2021 ambulatory UNKNOWN PROVIDER Facility:[facility] Start: 12-04-2021 End: 12-06-2021 Patient encounter procedure Ly Redmond [facility] Work Phone: [facility] Start: 11-22-2021 Postop follow up vis it related to original px Cj Nalini [facility] Start: 11-22-2021 End: 11-22-2021 ambulatory Cj Gayle [facility] [employer] Other Start: 11-22-2021 End: 11-22-2021 Patient encounter procedure DO Go Espinoza Work Phone: [facility] Start: 10-16-2021 Postop follow up vis it related to original px Cj Nalini [facility] Start: 10-16-2021 End: 10-16-2021 ambulatory Cj Gayle [facility] [employer] Other Start: 10-16-2021 End: 10-16-2021 Patient encounter procedure DO Go Espinoza Work Phone: [facility] Start: 09-24-2021 End: 09-24-2021 ambulatory Cj Gayle Facility:[facility] Start: 09-24-2021 End: 09-24-2021 Admission to same day surgery center DO Go Espinoza Work Phone: [facility] [place] Start: 09-23-2021 End: 09-23-2021 ambulatory Cj Gayle Facility:[facility] Start: 09-23-2021 End: 09-23-2021 Patient encounter procedure DO Go Espinoza Work Phone: [facility] Start: 09-18-2021 End: 09-18-2021 ambulatory TRAN MORALEZ . Facility:[facility] Start: 08-14-2021 End: 08-14-2021 ambulatory Nallely Parada Other [facility] Other Start: 08-14-2021 Office outpatient ne w 45 minutes Nallely Parada [facility] Start: 08-01-2021 End: 08-02-[address] GO ESPINOZA Facility:[facility] Start: 07-31-2021 End: 08-01-[address] GO ESPINOZA Facility:[facility] Start: 01-25-2021 End: 01-26-2021 ambulatory SIMI MEADOWS Facility:[facility] Start: 01-25-2021 ambulatory UNKNOWN PROVIDER Facili ty:[facility] Start: 09-09-2016 End: 09-09-2016 Ambulatory Robbi PETERSEN [facility] Procedures Date Procedure Procedure Detail Performing Clinician [...] right ankle XR ankle RT min 3V* [facility] Start: 10-16-2021 End: 10-16-2021 Patient encounter procedure Departed Clinical [facility] Start: 09-24-2021 [facility] Work Phone: Start: 09-24-2021 [facility] Work Phone: Start: 08-21-2021 [...] Screening for malignant neoplasm of colon Colonoscopy [facility] Patient referral [facility] Work Phone: Immunizations Immunization Date Immunization Notes Care Provider Zeb bruno 06-26-2021 Pfizer (12+ yrs) SARS-COV-2 (COVID-19) vaccine, mRNA, spike protein, LNP, pres. free, 30 mcg/0.3mL dose, syeda-sucrose (PHE=821) Ly Ruy [facility]DH Work Phone: [facility] 12-19-2020 COVID-19 Vaccine Pfi zer - Documentation Purposes Only [employer] Other [facility] Other 12-19-2020 influenza, injectabl e, quadrivalent, preservative free Ly Ruy [facility] Work Phone: [facility] 12-19-2020 influenza virus vaccine, unspecified formulation Ly Ruy [facility] Work Phone: [facility] 03-27-2020 COVID-19 Vaccine Pfi zer - Documentation Purposes Only [employer] Other [facility] Other 03-06-2020 COVID-19 Vaccine Pfi zer - Documentation Purposes Only [employer] Other [facility] Other 11-30-2019 influenza, injectabl e, quadrivalent, preservative free Ly Ruy [facility] Work Phone: [facility] 12-17-2018 influenza, injectabl e, quadrivalent, preservative free Ly Ruy [facility] Work Phone: [facility] 12-02-2017 influenza, injectabl e, quadrivalent, preservative free Ly Ruy [facility] Work Phone: [facility] 01-06-2017 influenza, injectabl e, quadrivalent, contains preservative Ly Ruy [facility] Work Phone: [facility] 07-12-2015 tetanus and diphther ia toxoids, adsorbed, preservative free, for adult use (5 Lf of tetanus toxoid and 2 Lf of diphtheria toxoid) Ly Ruy [facility] Work Phone: [facility] 12-14-2014 influenza, injectabl e, quadrivalent, preservative free Ly Ruy [facility] Work Phone: [facility] 01-10-2009 novel bspiqraor-[id number], preservative-free, injectable Ly Ruy [facility] Work Phone: [facility] 01-07-2008 influenza virus vaccine, whole virus Ly Ruy RD Work Phone: [facility] 12-08-2006 influenza virus vaccine, whole virus Ly Ruy RD Work Phone: [facility] 06-25-2005 tetanus and diphther ia toxoids, adsorbed, preservative free, for adult use (5 Lf of tetanus toxoid and 2 Lf of diphtheria toxoid) [facility] Work Phone: [facility] diphtheria, tetanus toxoids and acellular pertussis vaccine, unspecified formulation [facility] Work [facility]: [facility] Payers Date Payer Category Payer Self-pay [id number] 2019 Medicaid [id number] 1996 Medicare MEDICARE MEDICAR E PART A & B [id number] 1996-Present [address] [place] [address] Medicare [id number] 1968 Unknown [id number].732 1968 Unknown [id number] 2.16.840.1.363506.3.579.2.732 1968 Unknown [id number] 2.16.840.1.903133.3.579.2.732 1968 Unknown [id number] 2.16.840.1.144580.3.579.2.593 1968 Unknown [id number] 2.16.840.1.130746.3.579.2.593 1968 Unknown [id number] 2.16.840.1.139937.3.579.2.593 1968 Unknown [id number] 2.16.840.1.482547.3.579.2.593 1968 Unknown [id number] 2.16.840.1.198746.3.579.2.1259 1968 Unknown [id number] 2..840.1.303131.3.579.2.727 1968 Unknown [id number] 2.16.840.1.545752.3.579.2.727 1959 Medicaid [id number] 1961 Medicare [id number] [id number] Medicare [id number] Unknown [employer] [id number] Unknown [id number] 2.16.840.1.575434.3.579.2.531 Unknown [id number] 2.16.840.1.512058.3.579.2.531 Unknown [id number] 2.16.840.1.263757.3.579.2.531 Unknown [id number] 2.16.840.1.897621.3.579.2.531 Unknown [id number] 2.16.840.1.700449.3.579.2.531 Unknown [id number] 2.16.840.1.193576.3.579.2.531 Unknown [id number] 2.16.840.1.304180.3.579.2.531 Unknown [id number] 2.16.840.1.461268.3.579.2.593 Unknown [id number] 2.16.840.1.488044.3.579.2.593 Unknown [id number] 2.16.840.1.466893.3.579.2.593 Social History Date Type Detail Facility Sex Assigned At [facility] Start: 09-24-2021 End: 09-24-2021 Tobacco smoking status NYIS Never smoked tobacco (finding) [facility] Start: 1970 Sex Assigned At Male [facility] Tobacco smoking status [facility] Tobacco smoking consumption unknown [facility] Start: 1970 Sex Assigned At Not on file M [facility] Tobacco smoking status No Smoking Status Entered [facility] Medical Equipment Procedure Code Equipment Code Equipment Origin al Text Equipment Identifier Dates ORIF, fracture, ankle CANCELLOUS COARSE 7.5CC FDA Start: 09-24-2021 ORIF, fracture, ankle Orthopaedic bone screw, non-bioabsorbable, non-sterile ()[id number] FDA Start: 09-24-2021 ORIF, fracture, ankle Orthopaedic bone screw, non-bioabsorbable, non-sterile ()[id number] FDA Start: 09-24-2021 ORIF, fracture, ankle Orthopaedic fixation plate, non-bioabsorbable, sterile ()[id number] FDA Start: 09-24-2021 ORIF, fracture, ankle Orthopaedic bone screw, non-bioabsorbable, non-sterile ()[id number] FDA Start: 09-24-2021 ORIF, fracture, ankle Orthopaedic bone screw, non-bioabsorbable, non-sterile ()[id number] FDA Start: 09-24-2021 ORIF, fracture, ankle Orthopaedic bone screw, non-bioabsorbable, non-sterile ()[id number] FDA Start: 09-24-2021 ORIF, fracture, ankle Orthopaedic bone screw, non-bioabsorbable, non-sterile [id number] FDA Start: 09-24-2021 ORIF, fracture, ankle CANCELLOUS COARSE 7.5CC FDA Start: 09-24-2021 ORIF, fracture, ankle CANCELLOUS COARSE 7.5CC FDA Start: 09-24-2021 ORIF, fracture, ankle CANCELLOUS COARSE 7.5CC FDA Start: 09-24-2021 ORIF, fracture, ankle CANCELLOUS COARSE 7.5CC FDA Start: 09-24-2021 Goals Date Patient Goal Desired Activity /State Clinical Notes 01-10-2021 to 05-12-2023 Note Date & Type Note Facility 05-12-2023 Note HNO ID: [id number] Author: SUMEET CALI MD Service: ? Author [...] visit. Either the patient or their legal medical device sales representative has been informed of the risks [...] Today, is seen with care team and [place] . His mother is also present virtually. [...] anxiety, (10-14) moderate anxiety, (15-21) severe anxiety [place] Cognitive Assessment (MoCA) No data to display [...] evening, and 3 tablets at bedtime 0 wbxgbvv-fqqqvtheo-tvonxec D3 (OYSTER SHELL CALCIUM-VITAMIN D) 500 mg(1,250mg) [...] Plan note Diagnostic Tests PendingT3 Free 02/25/23 [facility] 11-12-2022 Evaluation + Plan note Diagnostic Tests PendingPSA Screen, Total 11/12/22 [facility] 07-08-2022 Note HNO ID: [id number] Author: Megan Tse MD Service: ? Author Type: Physician Type: Progress Notes Filed: 07/08/2022 10:30 AM Note Text: PSYC FOLLOW UP - PSYCHIATRIC PROGRESS NOTE CC: Follow-up, Intellectual disability, impulse control disorder I have communicated my name and active licensure. The patient's identity and physical location were verified at the time of this visit. Either the patient or their legal medical device sales representative has been informed of the risks and benefits of -- and alternatives to -- treatment through a remote evaluation and consents to proceed with the evaluation remotely. HPI: Nursing from [facility] and patient's mother/guardian (Ivory) present. Alethea happily [...] evening, and 3 tablets at bedtime 0 nmtksna-dzbbvsizr-yjqgavf D3 (OYSTER SHELL CALCIUM-VITAMIN D) 500 mg(1,250mg) [...] Patient unable to participate PFSH: Living in group/retirement VITAL SIGNS: There were no vitals filed [...] Follow Up: 6 months Fax note to: [phone] ADD ON PSYCHOTHERAPY CODE : Dinorah Tse [...] doing well. He is currently residing at [facility]. There is no complaints overall. Ankle is [...] Other specified postprocedural states (ICD-10 - Z98.890) [facility] Other 10-12-2022 History of Present illness Narrative* Simi Edwards DDS - 12/04/2021 11:03 AM EDT ----- Saturday, December 04, 2021 at 11:22:04 AM ----- ----- Provider: [id number] - Ly [facility]mond Hygienist -- Clinic: [facility] ----- [facility], Pt is ready for tx. Pt presented with caries Radiograph taken today: none Discussed the medical necessity of the problem with the pt. Instructions given to pt. Caregiver understood the situation and is okay with medications for today. Pt will come back shouldthings get worse. Guardianship: PARENTS - Nabila (Marlin) [place] [id number] / Email: [email or web address] Communicated with caregiver that the pt was placed on the OR list and we will call with appt. Limited exam completed by Dr. Noel STEPHENS. OR ----- Signed on Saturday, December 04, 2021 at 11:51:43 AM ----- ----- Provider: [id number] Tucker Myers DDS -- Clinic: [facility] ----- documented in this [id number] Evaluation note* Encounter Date Diagnosis Assessment Notes Treatment Notes Treatment Clinical Notes Oct, Displaced fracture of lateral malleolus of right fibula, subsequent encounter for closed fracture with routine healing (ICD-10 - S82.61XD) Alethea is here today for first follow-up 8 weeks s/p right ankle ORIF. He is doing well. He is currently residing at [facility]. There is no complaints overall. His incision [...] fracture with routine healing (ICD-10 - S82.392D) [facility] Other 08-24-2022 Evaluation note* Encounter Date Diagnosis Assessment Notes Treatment Notes Treatment Clinical Notes Sep, Displaced fracture of lateral malleolus of right fibula, subsequent encounter for closed fracture with routine healing (ICD-10 - S82.61XD) Alethea is here today for first follow-up 3 weeks s/p right ankle ORIF. He is doing well. He is currently residing at [facility]. There is no complaints overall. His incision [...] as documented in the electronic medical record. [facility] Other 08-24-2022 NoteCast material is in place limiting evaluation. Hardware fixation involving the distal fibula [facility] Other 07-27-2022 NotePROCEDURE: XR TIB_FIB RT 2V [...] Electronically authenticated by: SANDY DÍAZ Date: 2021-09-18 17:14[facility]07-27-2022 NotePROCEDURE: XR ANKLE RT MIN 3 VIEWS [...] Electronically authenticated by: SANDY DÍAZ Date: 2021-09-18 16:44[facility]07-27-2022 NotePROCEDURE: XR ANKLE LT MIN 3 V [...] Electronically authenticated by: SANDY DÍAZ Date: 2021-09-18 15:33[facility]06-22-2022 Evaluation note* Encounter Date Diagnosis Assessment Notes Treatment Notes Treatment Clinical Notes Jul, Pulmonary cavitary lesion (ICD-10 - J98.4) Jul, 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 I have personally seen and evaluated the patient, repeating narayanan portions. There is no significant interval change. Surgery is still indicated. Yes Consent reviewed and signed by patient/family: Yes Operative site verified and marked: site verified but not marked as not anatomically possible Carolyn López DDS 01/25/2021 9:50 AMThe [facility]11-18-2021 NotePatient is vaccinated for COVID-19: Pfizer on 03/06/2020 AND 03/27/2020. Patient does not require pre-op COVID testing per current guidelines.The Whats[employer] [place] SystemEvaluation noteNo assessment information availableDunlap Memorial Hospital Ctr Work Phone: Evaluation noteNo InformationN[facility] Legal River Other History general Narrative - Reported* Type Description Date Medical History Unspecified intellectual disabil ities Medical History autism Medical History ADHD Medical History Seizure Disorder Medical History tuberous Sclerosis [facility] Other History general Narrative - Reported* Type Description Date Medical History Unspecified intellectual disabil ities Medical History autism Medical History ADHD Medical History Seizure Disorder Medical History tuberous Sclerosis Surgical History ORIF RT lateral malleolus fx Hospitalization History see above [facility] Other Hospital course Narrative No data available for this section [facility] No data available for this section [facility] No data available for this section [facility] Summary Purpose Family History No Family History [...] section and content) DATE CREATED AUTHOR 08/19/2017 [facility] DATE CREATED AUTHOR AUTHOR'S ORGANIZ ATION 07/30/[address] [facility] DATE CREATED AUTHOR AUTHOR'S ORGANIZ ATION 12/15/2021 [facility] DATE CREATED AUTHOR AUTHOR'S ORGANIZ ATION 04/17/2022 [facility] DATE CREATED AUTHOR AUTHOR'S ORGANIZ ATION 06/01/2022 [facility] DATE CREATED AUTHOR AUTHOR'S ORGANIZ ATION 02/07/2023 [facility] DATE CREATED AUTHOR AUTHOR'S ORGANIZ ATION 02/28/2023 [facility] DATE CREATED AUTHOR AUTHOR'S ORGANIZ ATION 05/19/2023 [...] BE BASED ON THE PRIMARY CLINICAL RECORDS. [employer] provides no warranty or guarantee of the accuracy or completeness of information in this document.
== END 2023-07-30 08:43 | disposition home or self-care (01) ==
LOC: US 08:42
PROVIDERS: PCP Family Medicine; Visit Provider Family Medicine
DX: N18.30 Chronic kidney disease, stage 3 unspecified (principal); Q85.1 Tuberous sclerosis; N28.1 Cyst of kidney, acquired; N20.0 Calculus of kidney
CPT/HCPCS: 76770

== ENCOUNTER 2023-08-12 09:44 | Outpatient (OUT) | payer MEDICARE, MEDICAID, SELFPAY ==
--- OUTSIDE RECORDS SUMMARY | 2023-08-12 09:51 | XMS_ITS | CCD ---
Author Organization [facility] CliniSyny Care Team Providers Care Highway Truck Driver Name Role Phone Robbi PETERSEN Unavailable Unavailable ESPINOZA, GO A Unavailable Unavailable ESPINOZA, GO A Unavailable Unavailable Chaban, Kamal Unavailable Cj Gayle Unavailable DO Go Espinoza A Primary Care Provider DO Cj Gayle Attending Provider [phone] PROVIDER, UNKNOWN Attending Unavailable PROVIDER, UNKNOWN Admitting Unavailable PROVIDER, UNKNOWN Admitting Unavailable PROVIDER, UNKNOWN Attending Unavailable SIMI EDWARDS Admitting Unavailable SIMI EDWARDS Attending Unavailable SIMI EDWARDS Referring Unavailable Unavailable Primary Care Provider Unavailabl e DO Go Espinoza A Primary Care Provider [phone] DO Cj Gayle A Attending Provider [phone] DO Go Espinoza A Primary Care Provider DO Cj Gayle A Attending Provider MD Nallely Parada Attending Provider [phone] Cj Gayle Attending Unavailable Espinoza, Go A Primary Care Unavailable Nalini, Cj A Admitting Unavailable NaliniMagdyin A Attending Unavailable Espinoza, Go A Primary Care Unavailable Nalini, Cj A Admitting Unavailable Nalini, Cj A Attending Unavailable Espinoza, Go A Primary Care Unavailable Nalini, Cj A Admitting Unavailable Espinoza, Go A Primary Care Unavailable Chaban, Kamal Attending Unavailable Chaban, Kamal Admitting Unavailable Espinoza, Go A Primary Care Unavailable Chaban, Estebanal Attending Unavailable Chaban, Kamal Admitting Unavailable Nalini, Cj A Admitting Unavailable Espinoza, Go A Primary Care Unavailable Magdy Gaylein A Attending Unavailable NaliniCj Admitting Unavailable Espinoza, Go Ricci Primary Care Unavailable Cj Gayle Attending Unavailable Unavailable Primary Care Provider Unavailnallely [...] Ricci Consulting Unavailable ESPINOZAGO Primary Care Physician [phone] GO ESPINOZA Admitting Unavailable ESPINOZA, GO Attending Unavailable ESPINOZA, GO Attending Unavailable ESPINOZA, GO Admitting Unavailable SUMEET CALI Attending Unavailable ESPINOZA, GO ENCISO Primary Care Unavailab le SQUERIMEGAN Referring Unavailable SQUERIMEGAN Attending Unavailable ESPINOZA, GO ENCISO Referring Unavailab le ESPINOZA, GO ENCISO Primary Care Unavailab le GILLMOYADIRA Velez Attending Unavailable BROWNPITER Attending Unavailable Allergies Allergy Classification Reported Allergen(s) Allergy Type Date of Onset Reaction(s) Facility (1 source) PERTUSSIS VACCINE,FLUID; Translations: [PERTUSSIS VACCINE,FLUID] Propensity to adverse reactions to drug (disorder) 7 [facility] Repository (7 sources) PERTUSSIS VACCINES; Translations: [PERTUSSIS VACCINES] Propensity to adverse reactions to drug (disorder) [address] 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 [...] 10-16-2021 Episodic Other aftercare (1 source) Other penitentiary (current) drug therapy; Translations: [[facility] CURRENT DRUG THERAPY] Onset: 09-25-2021 Episodic Other [...] Test Name Value Interpretation Reference Range Facility [facility] ALETHEA LEI ([id number]) 1970 M Date Time Provider Department 05/15/23 SUMEET CALI PSYRMN During your visit today, we recorded the following information about you: Mariana Fair 05/15/2023 2:56 PM Signed Lucretia Allison- patients mom called and stated that [facility] is not able to do an appt for patient with you? They told her if you had a form that you can send to them? She don't know the name of the form? The conversation was a bit confusing. Mom can be reached at [phone] Thank you, Mariana Fiar Allergies As of Date: 05/15/2023 Noted Allergy Reaction ARSALANLIFFatmata (ARIPIPRAZOLE) 02/01/2008 1 - Mental Status Change Comments: agressiveness PERTUSSIS VACCINES 12/13/2007 Date Reviewed: 07/08/2022 Reviewed by: Mgean sTe MD - Fully Assessed Prescriptions as of [...] evening, and 3 tablets at bedtime - sdopnmo-hembjgjeh-jl tamin D3 (OYSTER SHELL CALCIUM-VITAMIN D) 500 [...] HEMANGIOMA SKIN [D18.01] 02/02/2008 SPECIAL SYMPTOM NEC/NOS [[id number]] 02/03/2008 FRONTAL LOBE SYNDROME [F07.0] 08/02/2008 Autism spectrum disorder [F84.0] 08/02/2008 Impulse control disorder [F63.9] 08/16/2012 Intellectual disability [F79] 01/31/2021 Encounter Status:Closed by MARIANA FAIR on 05/18/23 Normal [facility] T3 Freeon 02-27-2023 Free T3 [Mass/Vol] 2.0 pg/mL Invalid Interpretation Code 2.0-4.4 [facility] Comment on above: Result Comment: Perf ormed at: [facility] [address] [place], [place] [id number] PhD Jarod Kumar Performed By: #### 2 435221, 5309398, 7370524, 64019525, 791365797, 9728788, 3040144, 3526335, 5204356, 0621380 ####[facility] [address] [place] [address] CMPon 02-26-2023 Albumin [Mass/Vol] 4.1 g/dL Normal 3.3-5.0 [facility] Comment on above: Performed By: #### 2 322056, 8015262, 5838280, 43473576, 072493924, 4316541, 8282779, 5798358, 1199955, 6441225 #### [facility] [address] [place] [address] Albumin/Globulin [Mass ratio] 1.4 {ratio} Normal 1.1-2.2 [facility] Comment on above: Performed By: #### 2 121889, 0857783, 9337921, 31753586, 065722211, 0533685, 1002154, 5783885, 8865679, 0806561 #### [facility] [address] [place] [address] Alk Phos 158 Int._Unit/L High 21-98 [facility] Comment on above: Performed By: #### 2 358396, 1189069, 8803399, 45493812, 956675366, 5603229, 9454873, 0540071, 9249794, 3326102 #### [facility] [address] [place] [address] ALT 32 Int._Unit/L Normal 6-46 [facility] Comment on above: Performed By: #### 2 635742, 3288344, 2813905, 17313793, 544114870, 2240794, 5217698, 9289131, 2891472, 0890576 #### [facility] [address] [place] [address] Anion gap [Moles/Vol] 12 mmol/L Normal 6-[address] [facility] Comment on above: Performed By: #### 2 558188, 1027122, 3586755, 94670192, 997476652, 5192440, 9440729, 8738565, 0218980, 7443793 #### [facility] [address] [place] [address] AST 25 Int._Unit/L Normal 5-43 [facility] Comment on above: Performed By: #### 2 684427, 0705222, 8728089, 17511205, 174320198, 6344605, 6934465, 0706625, 9526130, 7086601 #### [facility] [address] [place] [address] Bili Total 0.3 mg/dL Normal 0.0-1.1 [facility] Comment on above: Performed By: #### 2 299142, 5837441, 5908094, 63029169, 074642553, 7255677, 9293999, 6508815, 6815105, 8655589 #### [facility] [address] [place] [address] BUN/Creat Ratio 17 No Units Normal 10-20 [facility] Comment on above: Performed By: #### 2 352266, 4391464, 0645307, 94001252, 745458026, 5631226, 2096346, 0205200, 5324783, 0559719 #### [facility] [address] [place] [address] Calcium [Mass/Vol] 8.9 mg/dL Normal 8.9-11.1 [facility] Comment on above: Performed By: #### 2 687242, 0020843, 0408106, 40201449, 714917090, 4950201, 7398005, 5711978, 6072192, 8195493 #### [facility] [address] [place] [address] Chloride [Moles/Vol] 113 mmol/L High 101-111 [facility] Comment on above: Performed By: #### 2 693043, 4432538, 3922885, 33807890, 467104918, 3583643, 5318652, 7353348, 2091655, 8703249 #### [facility] [address] [place] [address] CO2 [Moles/Vol] 22 mmol/L Normal 21-31 [facility] Comment on above: Performed By: #### 2 379955, 6385611, 1113492, 42894702, 221352757, 3422700, 1189239, 1349128, 0712256, 0966387 #### [facility] [address] [place] [address] Creatinine [Mass/Vol] 1.5 mg/dL High 0.5-1.[address] [facility] Comment on above: Performed By: #### 2 947656, 2700118, 5462105, 66503776, 468929873, 4104819, 9234032, 3672696, 4843266, 3467067 #### [facility] [address] [place] [address] Globulin (S) [Mass/Vol] 2.9 g/dL Normal 1.4-4.0 [facility] Comment on above: Performed By: #### 2 306379, 1143357, 4711785, 33123620, 375273588, 9075996, 2674181, 8837907, 1947465, 4379966 #### [facility] [address] [place] [address] Glucose [Mass/Vol] 90 mg/dL Normal 55-199 [facility] Comment on above: Performed By: #### 2 750801, 5982809, 5123771, 19657261, 046548839, 1088286, 2329836, 5267058, 9988443, 2762274 #### [facility] [address] [place] [address] Potassium [Moles/Vol] 4.8 mmol/L Normal 3.5-5.[address] [facility] Comment on above: Performed By: #### 2 397703, 8248489, 0863829, 81703798, 458298925, 0413532, 6823879, 8283659, 0631225, 3465003 #### [facility] [address] [place] [address] Protein [Mass/Vol] 7.0 g/dL Normal 6.0-7.8 [facility] Comment on above: Performed By: #### 2 711718, 9039948, 9687412, 57155384, 691823321, 8494191, 8964832, 0418004, 9889602, 0678675 #### [facility] [address] [place] [address] Sodium [Moles/Vol] 142 mmol/L Normal 135-145 [facility] Comment on above: Performed By: #### 2 328421, 5867007, 0419008, 45334078, 202939411, 3676849, 5339029, 1984074, 1850121, 9431001 #### [facility] [address] [place] [address] Urea nitrogen [Mass/Vol] 26 mg/dL High 5-21 [facility] Comment on above: Performed By: #### 2 121172, 7661107, 6993773, 51917270, 377858007, 5685969, 0795710, 4378666, 5544839, 6937527 #### [facility] [address] [place] [address] Ironon 02-26-2023 Iron 130 microgram/dL Normal 35-153 [facility] Comment on above: Performed By: #### 2 993080, 4411658, 5111748, 31554838, 664448587, 1941875, 9887056, 3622921, 3741426, 6412768 #### [facility] [address] [place] [address] Lipid Panelon 02-26-2023 Cholesterol [Mass/Vol] 105 mg/dL Low 120-200 [facility] Comment on above: Performed By: #### 2 479001, 6034290, 9844418, 22746715, 306801420, 8435229, 8760258, 0211167, 9210068, 9027969 #### [facility] [address] [place] [address] Cholesterol in HDL [Mass/Vol] 40 mg/dL Invalid Interpretation Code [facility] Comment on above: Result Comment: '>= 60 LOW RISK' '<= 40 HIGH RISK' Performed By: #### 2 622289, 4038591, 1486705, 76692200, 321867442, 2685818, 6729155, 3171834, 5614163, 0983492 #### [facility] [address] [place] [address] Cholesterol in LDL [Mass/Vol] 54 mg/dL Normal <=129 [facility] Comment on above: Performed By: #### 2 181195, 1031857, 5273408, 89133094, 490280761, 8438026, 8905639, 7835490, 6790533, 0847730 #### [facility] [address] [place] [address] Cholesterol in VLDL [Mass/Vol] 16 mg/dL Normal 7-40 [facility] Comment on above: Performed By: #### 2 948463, 8072940, 3698481, 93849262, 801599809, 4706154, 6146443, 6035271, 5629588, 5358553 #### [facility] [address] [place] [address] Triglyceride [Mass/Vol] 81 mg/dL Normal <=149 [facility] Comment on above: Performed By: #### 2 375257, 4211552, 3144608, 52859989, 664783101, 2896416, 7481429, 0943959, 6556464, 9238995 #### [facility] [address] [place] [address] Vit B12on 02-26-2023 Cobalamin (Vitamin B12) [Mass/Vol] 483 pg/mL Normal 50-1500 [facility] Comment on above: Performed By: #### 2 658134, 2851542, 2023821, 11640554, 078519394, 4170519, 9975538, 1947826, 7636668, 3919748 #### [facility] [address] [place] [address] Vitamin D 25 Hydroxyon 02-26 Vitamin D 25 Hydroxy 50.9 ng/mL Normal 30.0-100.0 [facility] Comment on above: Performed By: #### 2 756396, 4616600, 1927889, 97371253, 483617275, 3107277, 3876128, 0272408, 7153721, 0803695 ####[facility] [address] [place] [address] eGFRon 02-26-2023 eGFR 55 mL/min/1.73 m2 Low >=59 [facility] Comment on above: Order Comment: Order added by Discern Expert. Performed By: #### 2 242573, 9058391, 0675974, 82701440, 372233157, 1937765, 1358348, 0539177, 0980317, 2973441 #### [facility] [address] [place] [address] CBC w/Indiceson 02-25-2023 Erythrocyte distribution width (RBC) [Ratio] 13.2 % Normal 10.9-14.2 [facility] Comment on above: Performed By: #### 2 791160, 6109678, 4589248, 81909209, 685778223, 4201084, 6604772, 2620970, 7214434, 9380920 #### [facility] [address] [place] [address] Hematocrit (Bld) [Volume fraction] 40.6 % Normal 37.7-49.0 [facility] Comment on above: Performed By: #### 2 399853, 0773123, 3534547, 44711628, 621617251, 8712668, 1020308, 2885960, 9236100, 7168789 #### [facility] [address] [place], [place] [address] Hemoglobin (Bld) [Mass/Vol] 13.4 g/dL Low 13.5-17.5 [facility] Comment on above: Performed By: #### 2 790018, 0007943, 7693553, 70014928, 001292680, 1711756, 2983480, 5392585, 9999038, 5177462 #### [facility] [address] [place], [place] [address] MCH (RBC) [Entitic mass] 32.7 pg Normal 27.0-34.0 [facility] Comment on above: Performed By: #### 2 455821, 6076777, 9905675, 82965517, 240932259, 2938067, 7180968, 8431657, 7057189, 1007969 #### [facility] [address] [place] [address] MCHC (RBC) [Mass/Vol] 33.0 g/dL Normal 31.4-36.[address] [facility] Comment on above: Performed By: #### 2 470475, 6358195, 7752623, 13510109, 170317488, 8391259, 9348288, 4935433, 8299273, 8450445 #### [facility] [address] [place] [address] MCV (RBC) [Entitic vol] 99.1 fL Normal 80.0-100.0 [facility] Comment on above: Performed By: #### 2 076689, 8151660, 1075281, 34546571, 676236729, 9326344, 7286781, 9235316, 0501219, 3158503 #### [facility] [address] [place] [address] Platelet mean volume (Bld) [Entitic vol] 9.6 fL Normal 6.4-10.8 [facility] Comment on above: Performed By: #### 2 721211, 2488596, 4016646, 13936940, 205933906, 7211778, 0535080, 7467245, 6972975, 2725365 #### [facility] [address] [place] [address] Platelets (Bld) [#/Vol] 170.0 E9/L Normal 150.0-500.0 [facility] Comment on above: Performed By: #### 2 764976, 5789727, 7805478, 95344103, 190932310, 7554862, 7776951, 5570131, 4185201, 9497119 #### [facility] [address] [place] [address] RBC (Bld) [#/Vol] 4.1 E12/L Low 4.3-5.9 [facility] Comment on above: Performed By: #### 2 771180, 3372701, 7506698, 73264165, 387437110, 3744022, 3416858, 6827889, 1621465, 0412299 #### [facility] [address] [place] [address] WBC corrected for nucl RBC Auto (Bld) [#/Vol] 4.4 E9/L Normal 4.0-11.0 [facility] Comment on above: Performed By: #### 2 080526, 1883662, 1482163, 70230979, 098034507, 5616948, 3943061, 5876715, 2679076, 4388418 #### [facility] [address] [place] [address] CHEMISTRYOrdered By: SYSTEM SYSTEM on 02-25-2023 Albumin [...] Free T4 [Mass/Vol] 0.66 ng/dL Normal 0.58-1.64 [facility] Comment on above: Performed By: #### 2 758869, 7487195, 6327310, 35709318, 666600138, 8644098, 9034011, 1523489, 3728824, 4379406 #### [facility] [address] [place] [address] HEMATOLOGYOrdered By: Clarence Srivastava on 02-25-2023 Erythrocyte distribution width (RBC) [Ratio] 13.2 % Normal 10.9 - 14.2 % [facility] HemeAutoSS Hematocrit (Bld) [Volume fraction] 40.6 % [...] 9.6 fL Normal 6.4 - 10.8 fL FT HemeAutoSS Platelets (Bld) [#/Vol] 170.0 E9/L Normal 150.0 - 500.0 E9/L [facility] HemeAutoSS RBC (Bld) [#/Vol] 4.1 E12/L Low 4.3 - 5.9 E12/L [facility] HemeAutoSS WBC corrected for nucl RBC Auto (Bld) [#/Vol] 4.4 E9/L Normal 4.0 - 11.0 E9/L [facility]eAutoSS Physician Orderon 02-25-2023 Physician Order [id number] 5#1.00TIFF Normal [facility] TSHon 02-25-2023 TSH Qn 0.03 m[IU]/L Low 0.34-5.60 [facility] Comment on above: Performed By: #### 2 686705, 0994629, 7132488, 21332783, 919029434, 5337689, 0393730, 3927643, 8706745, 1617644 #### [facility] [address] [place] [address] PSA Screen, Totalon 11-14-19 Prostate specific Ag [Mass/Vol] 0.5 ng/mL Normal 0.1-3.5 [facility] Comment on above: Result Comment: The concentration of PSA determined by different manufacturers can vary due to differences in assay methods and reagent specificity. Values obtained from different assay methods cannot be used interchangeably. The methodology used for this result was chemiluminescence using [employer]'s Access Hybritech PSA reagent. Performed By: #### 1 1449455 ####[facility] [address] [place] [address] Physician Orderon 11-12-2022 Physician Order [id number] 7#1.00CD:127 Normal [facility] CNPNon 07-14-2022 CNPN Telephone ([facility]) TRACYALETHEA FRASER ([id number]) 1970 M Date Time Provider Department 07/14/22 GO ESPINOZA [facility] During your visit today, we recorded the following information about you: Barry West 07/14/2022 11:31 AM Signed Grisel from [facility] is calling Requesting notes from last OV. Also would like to know what follow up is? Wanted to schedule 6 mos visit. Please advise Grisel, phone [phone] Fax number, Megan Tse MD 07/14/2022 11:34 AM Signed Can you fax my note from last week's visit [facility] to [facility]? Thanks Megan Tse MD 07/15/2022 9:20 AM Signed Debra on my team sent over the note yesterday. Follow up is TBD, his care will be reassigned. But 6 months is my recommendation still. Allergies As of Date: 07/14/2022 Noted Allergy Reaction ABILIFY (ARIPIPRAZOLE) 02/01/2008 1 - Mental Status Change Comments: agressiveness PERTUSSIS VACCINES 12/13/2007 Date Reviewed: 07/08/2022 Reviewed by: Megan Tse MD - Fully Assessed Reason for Visit: Patient Question [7317] Prescriptions as of 07/15/2022 - alendronate (FOSAMAX) [...] evening, and 3 tablets at bedtime - wsawkav-xzgwxzqgu-cy tamin D3 (OYSTER SHELL CALCIUM-VITAMIN D) 500 [...] HEMANGIOMA SKIN [D18.01] 02/02/2008 SPECIAL SYMPTOM NEC/NOS [[id number]] 02/03/2008 FRONTAL LOBE SYNDROME [F07.0] 08/02/2008 Autism spectrum disorder [F84.0] 08/02/2008 Impulse control disorder [F63.9] 08/16/2012 Intellectual disability [F79] 01/31/2021 Encounter Status:Closed by BARRY MCINTOSH on 07/14/22 [facility] 07-08-2022 [facility] Telephone ([facility]) ALETHEA LEI ([id number]) 1970 M Date Time Provider Department 07/08/22 GO ESPINOZA [facility] During your visit today, we recorded the following information about you: Barry Martinez 07/08/2022 10:39 AM Signed Records on your desk Allergies As of Date: 07/08/2022 Noted Allergy Reaction ABILIFY (ARIPIPRAZOLE) 02/01/2008 1 - Mental Status Change Comments: agressiveness PERTUSSIS VACCINES 12/13/2007 Date Reviewed: 07/08/2022 Reviewed by: Megan Tse MD - Fully Assessed Reason for Visit: Received Outside Medical Records [3575] Cmt: [facility] Prescriptions as of 07/16/2022 - [...] evening, and 3 tablets at bedtime - mwsslrw-tyuetulif-pc tamin D3 (OYSTER SHELL CALCIUM-VITAMIN D) 500 [...] HEMANGIOMA SKIN [D18.01] 02/02/2008 SPECIAL SYMPTOM NEC/NOS [[id number]] 02/03/2008 FRONTAL LOBE SYNDROME [F07.0] 08/02/2008 Autism spectrum disorder [F84.0] 08/02/2008 Impulse control disorder [F63.9] 08/16/2012 Intellectual disability [F79] 01/31/2021 Encounter Status:Closed by BARRY MCINTOSH on 07/16/22 Normal [facility] US KIDNEYS BLADDERon 05-27- 023 US KIDNEYS BLADDER EXAMINATION: US KIDNEYS [...] by: NORMA ROSS Date: 2022-05-27 08:52 Normal [facility] XR PELVIS 1_2 VIEWSon 2022 XR [...] by: JONAH MAJANO Date: 2022-04-14 08:21 Normal [facility] XR HIP RT 2 3V WO [...] by: NORMA BROWN Date: 2022-04-10 08:41 Normal [facility] Glucose Poct Glucometerson 0 04-09-2022 Commemt1 Normal [facility] Comment on above: Result Comment: Glu2 : WILL NOTIFY DR/RN PERFORMED BY: [place] [address] PATHOLOGIST HEAD [employer] CHRISTINE FERNÁNDEZ M.D. Performed By: #### G LULS #### Point of Care testing , Glucose [Mass/Vol] 58 mg/dL Off scale low Fir [facility] Comment on above: Result Comment: [place] Glucose Reference Range is dependent on time and content of last meal. Glucose of more than 200 mg/dL in a nonstressed, ambulatory subject supports the diagnosis of Diabetes Mellitus. Performed By: #### G LULS #### Point of Care testing , PET tumor init tx strat sb-m ton 04-09-2022 PET tumor init tx strat sb-mt [facility] [address] [place] [id number] Nuclear Medicine Report Signed Patient: Alethea Lei MR#: [id number] : 1970 Acct:[id number] Age/Sex: 52 / M ADM Date: 04/09/22 Loc: Room: Type: [facility] Attending Dr: Nallely Parada MD Copies to: [...] Impression dictated by: Panda De Guzman Jr., D.OCarol04/09/2022 1:09 PM Dictation Location: [place] [address] Transcribed By: [facility] 04/09/22 1309 Dictated By: Panda De Guzman Jr, DO 04/09/22 1259 Signed By: 04/09/22 1309 Normal [facility] Glucose Glucometer (BldC) [M ass/Vol]Ordered By: Nallely Parada on 03-12-2022 Glucose [Mass/Vol] 95 mg/dL [facility] Comment on above: Random Glucose Refer ence Range is dependent on time and content of last meal. Glucose of more than 200 mg/dL in a nonstressed, ambulatory subject supports the diagnosis of Diabetes Mellitus. Glucose Poct Glucometerson 0 03-12-2022 Glucose [Mass/Vol] 95 mg/dL Normal [facility] Comment on above: Result Comment: [place] om Glucose Reference Range is dependent on time and content of last meal. Glucose of more than 200 mg/dL in a nonstressed, ambulatory subject supports the diagnosis of Diabetes Mellitus. PERFORMED BY: [facility] [address] [address] PATHOLOGIST [employer] CHRISTINE FERNÁNDEZ M.D. Performed By: #### G LULS #### Point of Care testing , CBC AUTO DIFFon 03-11-2022 BASO # 0.0 103/ul Normal 0.0-0.1 [facility] Comment on above: Performed By: #### C BC ####[facility] [address] [place] [id number] Mayo Basophils/100 WBC (Bld) 0.6 % Normal 0.2-2.0 [facility] Comment on above: Performed By: #### C BC ####[facility] [address] [place], [place] [address]Dr. Guille Mayo EO # 0.2 103/ul Normal 0.0-0.7 [facility] [facility] Comment on above: Performed By: #### C BC ####[facility] Zq[address] [place], [place] [address]Dr. Guille Mayo Eosinophils/100 WBC (Bld) 2.8 % Normal 0.9-7.0 [facility] Comment on above: Performed By: #### C BC ####[facility] Qoseysamgw[address] [place], [place] [address]Dr. Guille Mayo Erythrocyte distribution width (RBC) [Ratio] 12.6 % Normal 11.0-15.0 [facility] Comment on above: Performed By: #### C BC ####[facility] Smjlkxvhri[address] [place], [place] [address]Dr. Guille Mayo Hematocrit (Bld) [Volume fraction] 40.4 % Critically low 42.0-54.0 [facility] Comment on above: Performed By: #### C BC ####[facility] Comruqbbld[address] [place], [place] [address]Dr. Guille Mayo Hemoglobin (Bld) [Mass/Vol] 13.7 g/dL Critically low 14.0-18.0 [facility] Comment on above: Performed By: #### C BC ####[facility] Jwhjpesxxd[address] [place], [place] [address]DrCarol Mayo IG # 0.02 10e3/ul Normal 0.00-0.03 [facility] Comment on above: Performed By: #### C BC ####[facility] Rgalmgvftt[address] [place], [place] [address]Dr. Guille Mayo IG % 0.4 % Normal 0.0-0.5 [facility] Comment on above: Performed By: #### C BC ####[facility] F[address]jiq[address] [place], [place] [address]DrCarol Mayo LYMPH # 1.1 103/ul Critically low 1.2-3.8 The [facility] Comment on above: Performed By: #### C BC ####[facility] [address] [place] [address]Dr. Guille Mayo Lymphocytes/100 WBC (Bld) 20.8 % Normal 20.5-60.0 [facility] Comment on above: Performed By: #### C BC ####[facility] [address] [place] [address]DrCarol Mayo MANUAL DIFF REQ NO Normal [facility] Comment on above: Performed By: #### C BC ####[facility] [address] [place] [address]Dr. Guille Mayo MCH (RBC) [Entitic mass] 32.3 pg Normal 25.9-34.0 [facility] Comment on above: Performed By: #### C BC ####[facility] Njgtwebndm[address] [place], [place] [address]Dr. Guille Mayo MCHC (RBC) [Mass/Vol] 33.9 g/dL Normal 29.9-35.2 [facility] Comment on above: Performed By: #### C BC ####[facility] Nus[address]cyxa[address] [place], [place] [address]DrCarol Mayo MCV (RBC) [Entitic vol] 95.3 fL Critically high 80.0-94.0 [facility] Comment on above: Performed By: #### C BC ####[facility] Tjsiuhrq[address] [place], [place] [address]Dr. Guille Mayo MONO # 0.4 103/ul Normal 0.3-0.8 [facility] Comment on above: Performed By: #### C BC ####[facility] Akwpdtvaxv[address] [place], [place] [address]DrCarol Mayo Monocytes/100 WBC (Bld) 7.4 % Normal 1.7-12.0 [facility] Comment on above: Performed By: #### C BC ####[facility] Vfdmotlobp[address] [place], [place] [address]Dr. Guille Mayo NEUT # 3.7 103/ul Normal 1.4-6.5 [facility] Comment on above: Performed By: #### C BC ####[facility] [address] [place] [id number] Mayo Neutrophils/100 WBC (Bld) 68.0 % Normal 43.0-75.0 [facility] Comment on above: Performed By: #### C BC ####[facility] [address]us[address] [place] [id number] Mayo Platelet mean volume (Bld) [Entitic vol] 10.4 fL Normal 9.5-13.5 [facility] Comment on above: Performed By: #### C BC ####[facility] [address]msridc[address] [place] [id number] Mayo PLT 133 103/ul Critically low 150-450 [facility] Comment on above: Performed By: #### C BC ####[facility] [address] [place] [id number]. Guille Mayo RBC 4.24 106/ul Critically low 4.70-6.10 [facility] Comment on above: Performed By: #### C BC ####[facility] R[address]omj[address]rd[address] [place] [phone] Mayo WBC 5.4 103/ul Normal 4.0-11.0 [facility] Comment on above: Performed By: #### C BC ####[facility] Htsfhfbzvg[address] [place] [phone]. Guille Mayo FREE T4on 03-11-2022 Free T4 [Mass/Vol] 0.68 ng/dL Critically low 0.76-1.46 [facility] Comment on above: Performed By: #### F T4 #### [facility] [id number] Guille Mayo LIPID PROFILEon 03-11-2022 CHOL-HDL RATIO NORM SEE BELOW Normal [facility] Comment on above: Result Comment: 3.3 - 4.4 LOW RISK 4.4 - 7.1 AVERAGE RISK 7.1 - 11.0 MODERATE RISK >11.0 HIGH RISK Performed By: #### L IPID, TSH, CMP #### [facility] [address] [address] [address] Guille Mayo Cholesterol [Mass/Vol] 130 mg/dL Normal <=200 [facility] Comment on above: Performed By: #### L IPID, TSH, CMP #### [facility] [address] [address] [address] Guille Mayo Cholesterol in HDL [Mass/Vol] 45 mg/dL Normal 40-60 [facility] Comment on above: Performed By: #### L IPID, TSH, CMP #### [facility] [address] [address] [address] Guille Mayo Cholesterol in LDL [Mass/Vol] 67.6 mg/dL Normal [facility] Comment on above: Performed By: #### L IPID, TSH, CMP #### [facility] [address] [address] [address] Guille Mayo Cholesterol.total/Cho lesterol in HDL [Mass ratio] 2.9 {ratio} Normal [facility] Comment on above: Performed By: #### L IPID, TSH, CMP #### [facility] [address] [address] [address] Guille Mayo HDL NORMAL > or = 60 mg/dl - LOW CARDIOVASCULAR RISK <40 mg/dl - HIGH CARDIOVASCULAR RISK Normal [facility] Comment on above: Performed By: #### L IPID, TSH, CMP #### [facility] [address] [address] [address] Guille Mayo LDL CALC NORMAL SEE BELOW Normal [facility] Comment on above: Result Comment: <100 mg/dl OPTIMAL 100 - 129 mg/dl NEAR OR ABOVE OPTIMAL 130 - 159 mg/dl BORDERLINE HIGH 160 - 189 mg/dl HIGH >190 mg/dl VERY HIGH Performed By: #### L IPID, TSH, CMP #### [facility] [address] [address] [address] Guille Mayo Triglyceride [Mass/Vol] 87 mg/dL Normal <=150 [facility] Comment on above: Performed By: #### L IPID, TSH, CMP #### [facility] [address] [address] [address] Guille Mayo VLDL CALC 17.4 mg/dL Normal [facility] Comment on above: Performed By: #### L IPID, TSH, CMP #### [facility] [address] [address] [address] Guille Mayo PROF 14(COMP METB)on 023 Albumin [Mass/Vol] 3.8 g/dL Normal 3.4-5.0 [facility] Comment on above: Performed By: #### L IPID, TSH, CMP #### [facility] [address] [address] [address] Guille Mayo Albumin/Globulin [Mass ratio] 1.0 {ratio} Normal [facility] Comment on above: Performed By: #### L IPID, TSH, CMP #### [facility] [address] [address] [address] Guille Mayo ALP [Catalytic activity/Vol] 217 U/L Critically high 46-116 [facility] Comment on above: Performed By: #### L IPID, TSH, CMP #### [facility] [address] [address] [address] Guille Mayo ALT [Catalytic activity/Vol] 38 U/L Normal 16-63 [facility] Comment on above: Performed By: #### L IPID, TSH, CMP #### [facility] [address] [address] [address] Guille Mayo Anion gap [Moles/Vol] 12.2 mmol/L Normal [facility] Comment on above: Performed By: #### L IPID, TSH, CMP #### [facility] [address] [address] [address] Guille Mayo AST [Catalytic activity/Vol] 32 U/L Normal 15-37 [facility] Comment on above: Performed By: #### L IPID, TSH, CMP #### [facility] [address] [address] [address] Guille Mayo Bilirubin [Mass/Vol] 0.3 mg/dL Normal 0.2-1.0 [facility] Comment on above: Performed By: #### L IPID, TSH, CMP #### [facility] [address] [address] [address] Guille Mayo Calcium [Mass/Vol] 9.3 mg/dL Normal 8.5-10.1 [facility] Comment on above: Performed By: #### L IPID, TSH, CMP #### [facility] [address] [place] [address] Dr. Guille Mayo Chloride [Moles/Vol] 106 mmol/L Normal 98-107 [facility] Comment on above: Performed By: #### L IPID, TSH, CMP #### [facility] [address] [place] [address] Dr. Guille Mayo CO2 [Moles/Vol] 27.2 mmol/L Normal 21.0-32.0 [facility] Comment on above: Performed By: #### L IPID, TSH, CMP #### [facility] [address] [place] [address] Dr. Guille Mayo Creatinine [Mass/Vol] 1.31 mg/dL Critically high 0.70-1.30 [facility] Comment on above: Performed By: #### L IPID, TSH, CMP #### [facility] [address] [place] [address] Dr. Guille Mayo EGFR-AF MOLDOVAN >60 Normal >=60 [facility] Comment on above: Performed By: #### L IPID, TSH, CMP #### [facility] [address] [place] [address] Dr. Guille Mayo EGFR-NON AF MOLDOVAN 57 mL/min/1.73m2 Critically low >=60 [facility] Comment on above: Performed By: #### L IPID, TSH, CMP #### [facility] [address] [place] [address] Dr. Guille Mayo Globulin (S) [Mass/Vol] 3.8 g/dL Normal [facility] Comment on above: Performed By: #### L IPID, TSH, CMP #### [facility] [address] [place] [address] Dr. Guille Mayo Glucose [Mass/Vol] 98 mg/dL Normal 74-106 [facility] Comment on above: Performed By: #### L IPID, TSH, CMP #### [facility] [address] [address] [address] Guille Mayo Potassium [Moles/Vol] 4.4 mmol/L Normal 3.5-5.1 [facility] Comment on above: Performed By: #### L IPID, TSH, CMP #### [facility] [address] [address] [address] Guille Mayo Protein [Mass/Vol] 7.6 g/dL Normal 6.4-8.2 [facility] Comment on above: Performed By: #### L IPID, TSH, CMP #### [facility] [address] [address] [address] Guille Mayo Sodium [Moles/Vol] 141 mmol/L Normal 136-145 [facility] Comment on above: Performed By: #### L IPID, TSH, CMP #### [facility] [address] [address] [address] Guille Mayo Urea nitrogen [Mass/Vol] 27.0 mg/dL Critically high 7.0-18.0 [facility] Comment on above: Performed By: #### L IPID, TSH, CMP #### [facility] [address] [address] [address] Guille Mayo Urea nitrogen/Creatinine [Mass ratio] 20.6 mg/mg Normal [facility] Comment on above: Performed By: #### L IPID, TSH, CMP #### [facility] [address] [address] [address] Guille Mayo TSHon 03-11-2022 TSH 0.278 uIU/mL Critically low 0.358-3.740 [facility] Comment on above: Performed By: #### L IPID, TSH, CMP ####[facility] [address] [place] [address]Dr. Guille Mayo XR ankle RT min 3V*on 2021 XR ankle RT min 3V* [facility] [address] [place] [address] XRay Report Signed Patient: Alethea Lei MR#: [id number] : 1970 Acct:[id number] Age/Sex: 51 / M ADM Date: 01/06/22 [facility]: [facility]: Type: [facility] Attending Dr: Cj Gayle DO Copies to: [...] Geovanny Magallanes M.D.01/06/2022 3:54 PM Dictation Location: [place] [address] Transcribed By: [facility] 01/06/22 1554 Dictated By: Geovanny Magallanes DO 01/06/22 1553 Signed By: 01/06/22 1554 Normal [facility] XR ankle RT min 3V* [facility] [employer] Other XR ankle RT min 3V* [facility] [employer] Other XR ankle RT min 3V* [address] [place] [address] [employer] Other XR ankle RT min 3V* [place] [address] [facility] [employer] Other XR ankle RT min 3V* XRay Report Nort [employer] Other XR ankle RT min 3V* Signed [facility] [employer] Other XR ankle RT min 3V* Patient: Alethea Lei MR#: [id number] [facility] [employer] Other XR ankle RT min 3V* : 1970 Acct:[id number] [employer] Other XR ankle RT min 3V* Age/Sex: 51 / M ADM Date: 01/06/22 [employer] Other XR ankle RT min 3V* Loc: [facility] Room: Type: [facility] [employer] Other XR ankle RT min 3V* Attending Dr: Cj Gayle DO [employer] Other XR ankle RT min 3V* Copies to: Cj Gayle DO [employer] Other XR ankle RT min 3V* Ordering Provider: Cj Gayle DO [employer] Other XR ankle RT min 3V* Date of Service: 01/06/22 [employer] Other XR ankle RT min 3V* XR/XR ankle RT min 3V*: Displaced fracture of lateral malleolus of right [employer] Other XR ankle RT min 3V* fibula, sub Nort [employer] Other XR ankle RT min 3V* 3views Rightankle [employer] Other XR ankle RT min 3V* COMPARISON:11/22/21 [employer] Other XR ankle RT min 3V* HISTORY: Status post ORIF RIGHT lateral malleolus fracture [employer] Other XR ankle RT min 3V* No hardware failure. Adequate bony alignment. Continued healing of distal fibular fracture. [employer] Other XR ankle RT min 3V* XR/XR ankle RT min 3V* [employer] Other XR ankle RT min 3V* IMPRESSION: Healing fracture. No hardware failure. [employer] Other XR ankle RT min 3V* Impression dictated by: Geovanny Magallanes M.D.01/06/2022 3:54 PM [employer] Other XR ankle RT min 3V* Dictation Location: [facility] [employer] Other XR ankle RT min 3V* Transcribed By: WENDY 01/06/22 1554 [employer] Other XR ankle RT min 3V* Dictated By: Geovanny Magallanes DO 01/06/22 1553 [employer] Other XR ankle RT min 3V* Signed By: [employer] Other XR ankle RT min 3V* 01/06/22 1554 No rt [employer] Other Progress Noteson 12-04-2021 Weight Control Engineer Authentication Interface Message Text Normal The [facility] [facility] Weight Control Engineer Authentication Interface Message Text ----- Saturday, December 04, 2021 at 11:22:04 AM ----- ----- Provider: [id number] Redmond Hygishakilast -- Clinic: [facility] ----- [facility], Pt is ready for tx. Pt presented with caries Radiograph taken today: none Discussed the medical necessity of the problem with the pt. Instructions given to pt. Caregiver understood the situation and is okay with medications for today. Pt will come back should things get worse. Guardianship: PARENTS - Nabila SouravKerri Iniguezfrankie [address] [place] [address] / Email: [email or web address] Communicated with caregiver that the pt was placed on the OR list and we will call with appt. Limited exam completed by Dr. Noel STEPHENS. OR ----- Signed on Saturday, December 04, 2021 at 11:51:43 AM ----- ----- Provider: [id number] Tucker Myers DDS -- Clinic: [facility] ----- Normal [facility] XR ankle RT min 3V*on 2021 XR ankle RT min 3V* [facility] Main [address] [address] XRay Report Signed Patient: Alethea Lei MR#: [id number] : 1970 Acct:[id number] Age/Sex: 51 / M ADM Date: 11/22/21 Loc: [facility] Room: Type: [facility] Attending Dr: Cj [...] Impression dictated by: Panda De Guzman Jr., DCarolOCarol11/22/2021 2:39 PM Dictation Location: [place] [address] Transcribed By: [facility] 11/22/21 1439 Dictated By: Panda De Gzuman Jr, DO 11/22/21 1438 Signed By: 11/22/21 1439 Normal [facility] XR ankle RT min 3V*on 2021 XR ankle RT min 3V* [facility] Main [address] [address] XRay Report Signed Patient: Alethea Lei MR#: [id number] : 1970 Acct:[id number] Age/Sex: 51 / M ADM Date: 10/16/21 Loc: [facility] Room: Type: REG [facility] Attending Dr: Cj [...] Panda De Guzman Jr., D.O.10/16/2021 1:10 PM Dictation Location: [facility]-- Transcribed By: [facility] 10/16/21 1310 Dictated By: Panda De Guzman Jr, DO 10/16/21 1307 Signed By: 10/16/21 1310 Normal [facility] XR ankle RT min 3V* [facility] [employer] Other XR ankle RT min 3V* [facility] Main [facility] [employer] Other XR ankle RT min 3V* [address] [place] [address] [facility] [facility] [employer] Other XR ankle RT min 3V* [place] [address] [employer] Other XR ankle RT min 3V* XRay Report Nort [employer] Other XR ankle RT min 3V* Signed [employer] Other XR ankle RT min 3V* Patient: Alethea Lei MR#: [id number] [employer] Other XR ankle RT min 3V* : 1970 Acct:[id number] [employer] Other XR ankle RT min 3V* Age/Sex: 51 / M ADM Date: 10/16/21 [employer] Other XR ankle RT min 3V* Loc: [facility]: Type: [facility] [employer] Other XR ankle RT min 3V* Attending Dr: Cj Gayle DO [employer] Other XR ankle RT min 3V* Copies to: Cj Gayle, DO [employer] Other XR ankle RT min 3V* Ordering Provider: Cj Gayle, DO [employer] Other XR ankle RT min 3V* Date of Service: 10/16/21 [employer] Other XR ankle RT min 3V* XR/XR ankle RT min 3V*: Displaced fracture of lateral malleolus of right [employer] Other XR ankle RT min 3V* fibula, sub [facility] [employer] Other XR ankle RT min 3V* RIGHT ANKLE - 3 views [employer] Other XR ankle RT min 3V* CLINICAL HISTORY: ORIF right lateral malleolus fracture. Follow up [employer] Other XR ankle RT min 3V* COMPARISON: Intraoperative study 09/24/2021 [employer] Other XR ankle RT min 3V* FINDINGS: [employer] Other XR ankle RT min 3V* syndesmotic screw without evidence of hardware complication. Fracture line is still evident [employer] Other XR ankle RT min 3V* suggestive of incomplete healing. Medial malleolar fracture is unchanged.. Soft tissue swelling. [employer] Other XR ankle RT min 3V* Plantar spurring. [employer] Other XR ankle RT min 3V* XR/XR ankle RT min 3V* [employer] Other XR ankle RT min 3V* IMPRESSION: [facility] [employer] Other XR ankle RT min 3V* NO EVIDENCE OF HARDWARE COMPLICATION. [employer] Other XR ankle RT min 3V* Impression dictated by: Panda De Guzman Jr., D.O.10/16/2021 1:10 PM [employer] Other XR ankle RT min 3V* Dictation Location: [place] [address] [employer] Other XR ankle RT min 3V* Transcribed By: PWS 10/16/21 1310 [employer] Other XR ankle RT min 3V* Dictated By: Panda De Guzman Jr DO 10/16/21 1307 [employer] Other XR ankle RT min 3V* Signed By: [employer] Other XR ankle RT min 3V* 10/16/21 1310 No rt [employer] Other ECG 12 lead ECGon 09-24-2021 ECG 12 lead ECG [facility] Main [place] [address] [place] [address] Electrocardiograph Report Signed Patient: Alethea Lei MR#: [id number] : 1970 Acct:[id number] Age/Sex: 51 / M ADM Date: 09/24/21 Loc: [place] Room: Type: [facility] Attending Dr: Cj Gayle DO Ordering Provider: [...] MUS Signed By Zafar Spicer DO 09/24 1907 [facility] XR ankle RT min 3V*on 2021 XR ankle RT min 3V* [facility] Main [place] [address] [place] [address] XRay Report Signed Patient: Alethea Lei MR#: [id number] : 1970 Acct:[id number] Age/Sex: 51 / M ADM Date: 09/24/21 Loc: [place] Room: Type: [facility] Attending Dr: Cj Gayle DO [...] Impression dictated by: Panda De Guzman Jr., D.O.09/24/2021 4:10 PM Dictation Location: [place] [address] Transcribed By: [facility] 09/24/21 1610 Dictated By: Panda De Guzman Jr, DO 09/24/21 1609 Signed By: 09/24/21 1610 Normal [facility] SARS-CoV-2 (COVID-19) RNA GARY+probe Ql (Unsp spec) Negative Normal Negative [facility] Comment on above: Order Comment: Comme nt OR 09/24/21 Healthcare Worker?: N Result Comment: Testing for SARS-CoV-2 by RT-PCR This test was developed and its performance characteristics determined by [employer]) and validated at the [facility]. This test has not been FDA cleared [...] is terminated or revoked sooner. PERFORMED BY: [facility] [address] [place] [address] PATHOLOGIST HEAD [employer] CHRISTINE FERNÁNDEZ M.D. Performed By: #### C OVID 19 [facility] #### [facility] [address] COVID-19 Positive/NegativeOr dered By: Cj Gayle on 09-23-2021 SARS-CoV-2 (COVID-19) N gene GARY+probe Ql (Resp) Negative Negative [facility] Comment on above: Testing for SARS-CoV -2 by RT-PCR This test was developed and its performance characteristics determined by [employer] ([employer]) and validated at the [facility]. This test has not been FDA cleared [...] 09-18-2021 BASO # 0.0 103/ul Normal 0.0-0.1 [facility] Comment on above: Performed By: #### C BC ####[facility] [address] [place] [address]Dr. Guille Mayo Basophils/100 WBC (Bld) 0.2 % Normal 0.2-2.0 [facility] Comment on above: Performed By: #### C BC ####[facility] [address] [place], [place] [address]Dr. Guille Mayo EO # 0.1 103/ul Normal 0.0-0.7 [facility] Comment on above: Performed By: #### C BC ####[facility] [address] [place], [place] [address]Dr. Guille Mayo Eosinophils/100 WBC (Bld) 1.2 % Normal 0.9-7.0 [facility] Comment on above: Performed By: #### C BC ####[facility] [address]vcs[address] [place], [place] [address]Dr. Guille Mayo Erythrocyte distribution width (RBC) [Ratio] 12.2 % Normal 11.0-15.0 [facility] Comment on above: Performed By: #### C BC ####[facility] [address] [place], [place] [address]Dr. Guille Mayo Hematocrit (Bld) [Volume fraction] 38.0 % Critically low 42.0-54.0 [facility] Comment on above: Performed By: #### C BC ####[facility] [address] [place], [place] [address]Dr. Guille Mayo Hemoglobin (Bld) [Mass/Vol] 12.8 g/dL Critically low 14.0-18.0 [facility] Comment on above: Performed By: #### C BC ####[facility] [address] [place], [place] [address]Dr. Guille Mayo IG # 0.03 10e3/ul Normal 0.00-0.03 [facility] Comment on above: Performed By: #### C BC ####[facility] [address] [place], [place] [address]Dr. Guille Mayo IG % 0.4 % Normal 0.0-0.5 [facility] Comment on above: Performed By: #### C BC ####[facility] [address] [place], [place] [address]Dr. Guille aMyo LYMPH # 0.9 103/ul Critically low 1.2-3.8 The [facility] Comment on above: Performed By: #### C BC ####[facility] [address] [place] [address]DrCarol Mayo Lymphocytes/100 WBC (Bld) 10.7 % Critically low 20.5-60.0 [facility] Comment on above: Performed By: #### C BC ####[facility] [address] [place] [address]DrCarol Mayo MANUAL DIFF REQ NO Normal The [facility] Comment on above: Performed By: #### C BC ####[facility] [address] [place] [address]DrCarol Mayo MCH (RBC) [Entitic mass] 32.2 pg Normal 25.9-34.0 [facility] Comment on above: Performed By: #### C BC ####[facility] [address] [place], [place] [address]DrCarol Mayo MCHC (RBC) [Mass/Vol] 33.7 g/dL Normal 29.9-35.2 [facility] Comment on above: Performed By: #### C BC ####[facility] [address] [place], [place] [address]DrCarol Mayo MCV (RBC) [Entitic vol] 95.7 fL Critically high 80.0-94.0 [facility] Comment on above: Performed By: #### C BC ####[facility] [address] [place] [address]DrCarol Mayo MONO # 0.7 103/ul Normal 0.3-0.8 [facility] Comment on above: Performed By: #### C BC ####[facility] [address] [place], [place] [address]DrCarol Mayo Monocytes/100 WBC (Bld) 9.0 % Normal 1.7-12.0 [facility] Comment on above: Performed By: #### C BC ####[facility] I[address] [place], [place] [address]Dr. Guille Mayo NEUT # 6.4 103/ul Normal 1.4-6.5 [facility] Comment on above: Performed By: #### C BC ####[facility] [address] [place] [id number]. Guille Mayo Neutrophils/100 WBC (Bld) 78.5 % Critically high 43.0-75.0 [facility] Comment on above: Performed By: #### C BC ####[facility] [address] [place] [address]Dr. Guille Mayo Platelet mean volume (Bld) [Entitic vol] 9.9 fL Normal 9.5-13.5 [facility] Comment on above: Performed By: #### C BC ####[facility] [address] [place] [address]Dr. Guille Mayo PLT 152 103/ul Normal 150-450 [facility] Comment on above: Performed By: #### C BC ####[facility] [address] [place] [address]Dr. Guille Mayo RBC 3.97 106/ul Critically low 4.70-6.10 The [facility] Comment on above: Performed By: #### C BC ####[facility] [address] [place] [address]Dr. Guille Mayo WBC 8.1 103/ul Normal 4.0-11.0 [facility] Comment on above: Performed By: #### C BC ####[facility] [address]qa[address] [place] [id number]. Guille Mayo CT HEAD WO CONon 09-18-2021 [...] SANDY DÍAZ Date: 2021-09-18 15:44 Normal [facility] Covid-19 PCR (CVDTBH)on 08-24 SARS-CoV-2 (COVID-19) RNA GARY+probe Ql (Unsp spec) Not detected Normal NOT DETECTED [facility] Comment on above: Result Comment: When [...] for this test is supported by the [place] of Health and Human Service's declaration that [...] be used). Performed By: #### C VDTBH ####[facility] [address] [place] [address]DrCarol Mayo PROF CHEM 8 (BAS METB)on Anion gap [Moles/Vol] 12.4 mmol/L Normal [facility] Comment on above: Performed By: #### B MP ####[facility] [address] [place] [id number] Mayo Calcium [Mass/Vol] 8.7 mg/dL Normal 8.5-10.1 [facility] Comment on above: Performed By: #### B MP ####[facility] [address] [place] [id number]. Guille Mayo Chloride [Moles/Vol] 107 mmol/L Normal 98-107 [facility] Comment on above: Performed By: #### B MP ####[facility] [address] [place] [address]Dr. Guille Mayo CO2 [Moles/Vol] 28.0 mmol/L Normal 21.0-32.0 [facility] Comment on above: Performed By: #### B MP ####[facility] R[address] [place], [place] [address]Dr. Guille Mayo Creatinine [Mass/Vol] 1.45 mg/dL Critically high 0.70-1.30 [facility] Comment on above: Performed By: #### B MP ####[facility] Pl[address]re[address] [place], [place] [address]Dr. Guille Mayo EGFR-AF MOLDOVAN >60 Normal >=60 [facility] Comment on above: Performed By: #### B MP ####[facility] K[address] [place], [place] [address]Dr. Guille Mayo EGFR-NON AF MOLDOVAN 51 mL/min/1.73m2 Critically low >=60 [facility] Comment on above: Performed By: #### B MP ####[facility] J[address] [place], [place] [address]Dr. Guille Mayo Glucose [Mass/Vol] 87 mg/dL Normal 74-106 [facility] Comment on above: Performed By: #### B MP ####[facility] [address] [place], [place] [address]Dr. Guille Mayo Potassium [Moles/Vol] 4.4 mmol/L Normal 3.5-5.1 [facility] Comment on above: Performed By: #### B MP ####[facility] R[address]yr[address] [place], [place] [address]Dr. Guille Mayo Sodium [Moles/Vol] 143 mmol/L Normal 136-145 [facility] Comment on above: Performed By: #### B MP ####[facility] Oew[address] [place], [place] [address]Dr. Guille Mayo Urea nitrogen [Mass/Vol] 24.0 mg/dL Critically high 7.0-18.0 [facility] Comment on above: Performed By: #### B MP ####[facility] [address] [place], [place] [address]Lp. Guille Mayo Urea nitrogen/Creatinine [Mass ratio] 16.6 mg/mg Normal [facility] Comment on above: Performed By: #### B MP ####[facility] [address] [place], [place] [address]On. Guille Mayo XR CHEST 1 Von 09-18-2021 [...] SANDY DÍAZ Date: 2021-09-18 15:36 Normal [facility] CT CHEST WO CONon 08-02-2021 CT [...] by: NORMA ROSS Date: 2021-08-02 08:52 Normal [facility] XR DEXA BONE DENSITYon 07-31 XR [...] by: NORMA ROSS Date: 2021-07-31 16:14 Normal [facility] Anesthesia Attestationon Weight Control Engineer Authentication Interface Message Text Anesthesia Attestation ATTESTATION OF INFORMED CONSENT FOR ANESTHESIA Anesthesia options were discussed with the patient and/or legal door to door sales representative. The risks, benefits and alternatives were reviewed. Questions regarding anesthesia were answered. Patient and/or legal door to door sales representative knows such anesthetics and procedures may be performed by Resident physicians, Certified Anesthesiologist Assistants, or Certified Nurse Anesthetists under the supervision of a physician. The patient /or the patient's legal door to door sales representative agree with the plan for anesthesia. Normal [facility] Anesthesia Postprocedure Zo luationon 01-25-2021 Weight Control Engineer Authentication Interface Message Text Anesthesia Postoperative Assessment: [...] ANESTHESIA COMPLICATIONS: No complications documented. Normal [facility] Weight Control Engineer Authentication Interface Message Text Patient taken to [...] Simi Edwards DDS Anesthesiologist: Jero Peralta MD Lumber Kiln Operator: Anson Schwartz MD DENTAL RESTORATIONS (Bilateral [...] was received. Anson Schwartz MD Normal [facility] Blood Attestationon 01-26-20 Weight Control Engineer Authentication Interface Message Text Blood Attestation ATTESTATION OF INFORMED CONSENT FOR BLOOD The transfusion of blood and/or blood components were discussed with the patient and/or legal door to door sales representative. The risks, benefits and alternatives were reviewed. Questions regarding blood transfusions were answered. The patient /or the patient's legal door to door sales representative agree with the plan for transfusion of blood and/or blood components. 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 Procedures: Full mouth X-ray 22227 Exam 35428 Cleaning 90900 Mandaen 10220 Fluoride 64842 Excisional biopsy 36776 No data filed Surgeon(s): Surgeon(s): Simi Edwards DDS Staff: On Site Soil Evaluator Nurse: Deborah Chapman RN; Crystal Anderson RN Quarry Manager: Carolyn López DDS Anesthesia: General Anesthesiologist: Jero Peralta MD Lumber Kiln Operator: Anson Schwartz MD Specimen(s): ID Type [...] López DDS 01/25/2021 12:11 PM Normal [facility] OP Noteon 01-25-2021 Weight Control Engineer Authentication Interface Message Text Surgical Case Number Data Unavailable Operating Room Data Unavailable Preoperative Diagnosis(es): Dental caries [980665] Autism spectrum disorder F84.0 Moderate intellectual disability F79 Seizure disorder G40.89 Postoperative Diagnosis(es): Autism spectrum disorder F84.0 Moderate intellectual disability F79 Seizure disorder G40.89 Dental caries [017514] 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 vqjnggb-teiaznbwxb-x cellular pertussis (BOOSTRIX) 5-2.5-18.5 LF-MCG/0.5 injection Inject 0.5 mL into the muscle. Dictated by: Carolyn López DDS: Simi Joyner DDS was present for the critical portions of the procedure. 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 * qgywdiq-xnfearhoar-q cellular pertussis (BOOSTRIX) 5-2.5-18.5 LF-MCG/0.5 injection Inject 0.5 mL into the muscle. Dictated by: Carolyn López DDS: Simi Joyner DDS was present for the critical portions of the procedure. Carolyn López DDS 01/25/2021 12:18 PM Normal [facility] Anesthesia Preprocedure Eval justoon 01-24-2021 Weight Control Engineer Authentication Interface Message Text ASA: 3 No [...] the history and physical examination. Normal [facility] Telephone Encounteron 2020 Weight Control Engineer Authentication Interface Message Text Informed Consent for dental surgery AND Anesthesia consent obtained and scanned into [employer]. Scheduled for surgery 01/25/2021. Normal [facility] AUD - Progress Noteson 04-20 Protein mass conc Pt. referred for hearing evaluation by Dr. Espinoza, accompanied by Caitie, a direct care provider from [facility]. Pt. returns today after having ears cleaned out. Pt. denied ear pain at the time of testing. Completed evaluation, resorting to play audiometry for pure tone testing. See AUD-Assessments for Report/Results. DX CODES: H90.3 sensorineural hearing loss bilateral Normal [facility] Coding Summary.on 04-20-2018 Coding Summary. CODING DATE: 04/20/2018 FINAL [facility] STATUS: PAYOR: Medicare APC DESCRIPTION 5722 Level [...] CphT Date Saved: 04/20/2018 09:11 pm Normal [facility] AUD - Progress Noteson 03-31 Protein mass conc pt. referred for hearing evaluation by Muna Espinoza DO, accompanied by Darius direct care provider from [facility]. Otoscopy revealed cerumen in the right ear canal clocking view of the tympanic membrane, left ear with moderate cerumen but tympanic membrance visible. Discussed with Saurabh, did not complete evaluation today. He will return after bilateral ear cleaning. Called and spoke to [facility]/Nursing/Ainsley and advised her of the above. Normal [facility] Mohit 09-09-2016 Alanine aminotransferase (ALT) 35 U/L Normal <40 [facility] Soni 09-09-2016 Aspartate aminotransferase (AST) 26 U/L Normal 15-50 [facility] Albuminon 09-09-2016 Albumin 4.5 g/dL Normal 3.4-5.2 [facility] BUNon 09-09-2016 Urea nitrogen 21 mg/dL High 5-18 [facility] Creatinineon 09-09-2016 Creatinine 1.21 mg/dL High 0.50-1.20 [facility] Electrolyteson 09-09-2016 Chloride 107 mmol/L High 95-106 [facility] CO2 24 mmol/L Normal 24-35 [facility] Potassium molar conc 4.4 mmol/L Normal 3.7-5.3 [facility] S[facility] 141 mmol/L Normal 135-145 [facility] Vital Signs Date Time Vital Sign Value Performing Clinician Facility 01-06-2022 12:30-0500 Body height 177.8 cm Cj Gayle Other [facility] Other 01-06-2022 12:30-0500 Body mass index (BMI) [Ratio] 27.69 kg/m2 Cj Gayle Other [facility] Other 01-06-2022 12:30-0500 Body weight 87.54 kg Cj Gayle Other [facility] Other 09-24-2021 17:03-0400 Diastolic blood pressure 100 mm[Hg] DO Go Espinoza Work Phone: [facility] 09-24-2021 17:03-0400 Heart rate 79 /min DO Go Espinoza Work Phone: [facility] 09-24-2021 17:03-0400 Respiratory rate 16 /min DO Go Espinoza Work Phone: [facility] 09-24-2021 17:03-0400 SaO2% (BldA) [Mass fraction] 94 % DO Go Espinoza Work Phone: [facility] 09-24-2021 17:03-0400 Systolic blood pressure 156 mm[Hg] DO Go Espinoza Work Phone: [facility] 09-24-2021 15:05-0400 Body temperature 97.1 [degF] DO Go Espinoza Work Phone: [facility] 09-24-2021 15:05-0400 Inhaled oxygen flow rate 6 L/min DO Go Espinoza Work Phone: [facility] 09-24-2021 14:22-0400 Body height 172.72 cm DO Go Espinoza Work Phone: [facility] 09-24-2021 14:22-0400 Body mass index (BMI) [Ratio] 29.6 kg/m2 DO Go Espinoza Work Phone: [facility] 09-24-2021 14:22-0400 Body weight 88.4 kg DO Go Espinoza Work Phone: [facility] 08-14-2021 10:45-0400 Body height 177.8 cm Nallely Parada Other [facility] Other 08-14-2021 10:45-0400 Body mass index (BMI) [Ratio] 27.55 kg/m2 Nallely Parada Other [facility] Other 08-14-2021 10:45-0400 Body temperature 97 [degF] Nallely Parada Other [facility] Other 08-14-2021 10:45-0400 Body weight 87.09 kg Nallely Parada Other [facility] Other 08-14-2021 10:45-0400 Diastolic blood pressure 84 mm[Hg] Nallely Parada Other [facility] Other 08-14-2021 10:45-0400 Respiratory rate 20 /min Nallely Parada Other [facility] Other 08-14-2021 10:45-0400 SaO2% (BldA) [Mass fraction] 98 % Nallely Parada Other [facility] Other 08-14-2021 10:45-0400 Systolic blood pressure 132 mm[Hg] Nallely Parada Other [facility] Other Encounters Encounter Date Encounter Type Care Provider Facility Start: 08-06-2023 End: 08-06-2023 ambulatory YADIRA DE LA CRUZ Not Available Start: 05-12-2023 End: 05-12-2023 ambulatory SUMEET SWANSON Facility:[facility] Start: 02-25-2023 End: 02-25-2023 Lab Drop off GO ESPINOZA [facility] Start: 02-25-2023 End: 02-26-2023 ambulatory GO ESPINOZA Facility:[facility] Start: 02-05-2023 End: 02-05-2023 ambulatory PITER BROWN Not Available Start: 11-12-2022 End: 11-13-2022 ambulatory GO ESPINOZA Facility:[facility] Start: 11-12-2022 End: 11-12-2022 Lab Drop off GO ESPINOZA [facility] Start: 07-08-2022 End: 07-08-2022 ambulatory MEGAN TSE Facility:[facility] Start: 05-27-2022 End: 05-28-[address] GO ESPINOZA Facility:[facility] Start: 04-24-2022 Letter encounter alekFélix pooja Start: 04-11-2022 End: 04-12-[address] GO ESPINOZA Facility:[facility] Start: 04-10-2022 End: 04-11-[address] GO ESPINOZA Facility:[facility] Start: 04-09-2022 Telephone encounter Nallely Parada [facility] Start: 04-09-2022 End: 04-09-2022 ambulatory Go Espinoza Facility:[facility] Start: 03-12-2022 End: 03-12-2022 ambulatory Go Espinoza Facility:[facility] Start: 03-12-2022 End: 03-12-2022 ambulatory DO Go Espinoza Work Phone: [facility] Work Phone: Start: 03-12-2022 End: 03-12-2022 Patient encounter procedure DO Go Espinoza Work Phone: [facility] Work Phone: Start: 03-11-2022 End: 03-12-[address] GO ESPINOZA Facility: Start: 02-06-2022 End: 02-06-2022 ambulatory Nallely Parada Other [facility] Other Start: 02-06-2022 Telephone encounter Nallely Parada [facility] Start: 01-07-2022 End: 01-07-2022 ambulatory Cj Gayle Other [facility] Other Start: 01-07-2022 Telephone encounter Cj Gayle [facility] Start: 01-06-2022 Postop follow up vis it related to original px Cj Gayle [facility] Start: 01-06-2022 End: 01-06-2022 ambulatory Cj Gayle Facility:[facility] Start: 01-06-2022 End: 01-06-2022 ambulatory DO Go Espinoza Work Phone: [facility] Work Phone: Start: 01-06-2022 End: 01-06-2022 Patient encounter procedure DO Go Espinoza Work Phone: [facility] Start: 12-04-2021 End: 12-06-2021 ambulatory UNKNOWN PROVIDER Facility:[facility] Start: 12-04-2021 End: 12-06-2021 Patient encounter procedure Ly Redmond RDH Work Phone: [facility] Start: 11-22-2021 Postop follow up vis it related to original px Cj Gayle [facility] Start: 11-22-2021 End: 11-22-2021 ambulatory Cj Gayle [facility] Other Start: 11-22-2021 End: 11-22-2021 Patient encounter procedure DO Go Espinoza Work Phone: [facility] Start: 10-16-2021 Postop follow up vis it related to original px Cj Gayle [facility] Start: 10-16-2021 End: 10-16-2021 ambulatory Cj Gayle [facility] [employer] Other Start: 10-16-2021 End: 10-16-2021 Patient encounter procedure DO Go Espinoza Work Phone: [facility] Start: 09-24-2021 End: 09-24-2021 ambulatory Cj Gayle Facility:[facility] Start: 09-24-2021 End: 09-24-2021 Admission to same day surgery center DO Go Espinoza Work Phone: [facility] [place] Start: 09-23-2021 End: 09-23-2021 ambulatory Cj Gayle Facility:[facility] Start: 09-23-2021 End: 09-23-2021 Patient encounter procedure DO Go Espinoza Work Phone: [facility] Start: 09-18-2021 End: 09-18-2021 ambulatory TRAN MORALEZ . Facility:[facility] Start: 08-14-2021 End: 08-14-2021 ambulatory Nallely Parada Other [facility] Other Start: 08-14-2021 Office outpatient ne w 45 minutes Nallely Parada [facility] Start: 08-01-2021 End: 08-02-[address] GO ESPINOZA Facility:[facility] Start: 07-31-2021 End: 08-01-[address] GO ESPINOZA Facility:[facility] Start: 01-25-2021 End: 01-26-2021 ambulatory SIMI MEADOWS Facility:[facility] Start: 01-25-2021 ambulatory UNKNOWN PROVIDER Facili ty:[facility] Start: 09-09-2016 End: 09-09-2016 Ambulatory Robbi PETERSEN [facility] Procedures Date Procedure Procedure Detail Performing Clinician Start: 01-06-2022 X-ray of right ankle DO Go Espinoza Work Phone: Start: 11-22-2021 X-ray of right ankle [...] right ankle XR ankle RT min 3V* [facility] Start: 10-16-2021 End: 10-16-2021 Patient encounter procedure Departed Clinical [facility] Start: 09-24-2021 [facility] Work Phone: Start: 09-24-2021 [facility] Work Phone: Start: 08-21-2021 COVID-19 [...] + acellular pertussis vaccine (product) Tdap Booster [facility] Start: 01-10-1983 HIV screening HIV Test [facility] Start: 1970 Screening for malignant neoplasm of colon Colonoscopy [facility] Patient referral [facility] Work Phone: Immunizations Immunization Date Immunization Notes Care Provider Zeb bruno 06-26-2021 Pfizer (12+ yrs) SARS-COV-2 (COVID-19) vaccine, mRNA, spike protein, LNP, pres. free, 30 mcg/0.3mL dose, syeda-sucrose (ZAK=616) Ly Ruy RDH Work Phone: [facility] 12-19-2020 COVID-19 Vaccine Pfi zer - Documentation Purposes Only Nallely Parada Other [facility] Other 12-19-2020 influenza, injectabl e, quadrivalent, preservative free Ly Ruy RDH Work Phone: [facility] 12-19-2020 influenza virus vaccine, unspecified formulation Ly Ruy RDH Work Phone: [facility] 03-27-2020 COVID-19 Vaccine Pfi zer - Documentation Purposes Only Nallely Parada Other [facility] Other 03-06-2020 COVID-19 Vaccine Pfi zer - Documentation Purposes Only Nallely Parada Other [facility] Other 11-30-2019 influenza, injectabl e, quadrivalent, preservative free Ly Ruy RDH Work Phone: [facility] 12-17-2018 influenza, injectabl e, quadrivalent, preservative free Ly Ruy RDH Work Phone: [facility] 12-02-2017 influenza, injectabl e, quadrivalent, preservative free Ly Ruy RDH Work Phone: [facility] 01-06-2017 influenza, injectabl e, quadrivalent, contains preservative Ly Ruy RDH Work Phone: [facility] 07-12-2015 tetanus and diphther ia toxoids, adsorbed, preservative free, for adult use (5 Lf of tetanus toxoid and 2 Lf of diphtheria toxoid) Ly Ruy RDH Work Phone: [facility] 12-14-2014 influenza, injectabl e, quadrivalent, preservative free Ly Ruy RDH Work Phone: [facility] 01-10-2009 novel [id number], preservative-free, injectable Ly Ruy RDH Work Phone: [facility] 01-07-2008 influenza virus vaccine, whole virus Ly Ruy RDH Work Phone: [facility] 12-08-2006 influenza virus vaccine, whole virus Ly Ruy RDH Work Phone: [facility] 06-25-2005 tetanus and diphther ia toxoids, adsorbed, preservative free, for adult use (5 Lf of tetanus toxoid and 2 Lf of diphtheria toxoid) Ly Ruy RD Work Phone: [facility] diphtheria, tetanus toxoids and acellular pertussis vaccine, unspecified formulation Ly Ruy RDH Work Phone: [facility] Payers Date Payer Category Payer Self-pay [id number] 2019 Medicaid [id number] 1996 Medicare MEDICARE MEDICAR E PART A & B [id number] 1996-Present [address] [place] [address] Medicare [id number] 1968 Unknown [id number] [id number]2 1968 Unknown [id number] 2.16.840.1.347381.3.579.2.732 1968 Unknown [id number] 2.16.840.1.743672.3.579.2.732 1968 Unknown [id number] 2.16.840.1.384636.3.579.2.593 1968 Unknown [id number] 2.16.840.1.629354.3.579.2.593 1968 Unknown [id number] 2.16.840.1.938281.3.579.2.593 1968 Unknown [id number] 2.16.840.1.159938.3.579.2.593 1968 Unknown [id number] 2.16.840.1.175218.3.579.2.727 1968 Unknown [id number] 2.16.840.1.288140.3.579.2.727 1968 Unknown [id number] 2.16.840.1.176906.3.579.2.1259 1968 Unknown [id number] 2.16.840.1.200487.3.579.2.1259 1959 Medicaid [id number] 2.16.840.1.298450.19 1961 Medicare [id number] 2.16.840.1.166364.19 Medicare [id number] Unknown [employer] [id number] Unknown [id number] 2.16.840.1.879539.3.579.2.531 Unknown [id number] 2.16.840.1.447715.3.579.2.531 Unknown [id number] 2.16.840.1.929973.3.579.2.531 Unknown [id number] 2.16.840.1.622054.3.579.2.531 Unknown [id number] 2.16.840.1.482901.3.579.2.531 Unknown [id number] Unknown [id number] Unknown [id number] Unknown [id number] Unknown [id number] Social History Date Type Detail Facility Sex Assigned At [facility] Start: 09-24-2021 End: 09-24-2021 Tobacco smoking status [facility] Never smoked tobacco (finding) [facility] Start: 1970 Sex Assigned At Male F [facility] Tobacco smoking status [facility] Tobacco smoking consumption unknown [facility] Start: 1970 [facility] No Smoking Status Entered [facility] Medical Equipment Procedure Code Equipment Code Equipment Origin al Text Equipment Identifier Dates ORIF, fracture, ankle CANCELLOUS COARSE 7.5CC FDA Start: 09-24-2021 ORIF, fracture, ankle Orthopaedic bone screw, non-bioabsorbable, non-sterile ()[id number] FDA Start: 09-24-2021 ORIF, fracture, ankle Orthopaedic bone screw, non-bioabsorbable, non-sterile ()[id number] FDA Start: 09-24-2021 ORIF, fracture, ankle Orthopaedic fixation plate, non-bioabsorbable, sterile ()[id number] FDA Start: 09-24-2021 ORIF, fracture, ankle Orthopaedic bone screw, non-bioabsorbable, non-sterile ()[id number] FDA Start: 09-24-2021 ORIF, fracture, ankle Orthopaedic bone screw, non-bioabsorbable, non-sterile ()[id number] FDA Start: 09-24-2021 ORIF, fracture, ankle Orthopaedic bone screw, non-bioabsorbable, non-sterile ()[id number] FDA Start: 09-24-2021 ORIF, fracture, ankle Orthopaedic bone screw, non-bioabsorbable, non-sterile ()[id number] FDA Start: 09-24-2021 ORIF, fracture, ankle CANCELLOUS COARSE 7.5CC FDA Start: 09-24-2021 ORIF, fracture, ankle CANCELLOUS COARSE 7.5CC FDA Start: 09-24-2021 ORIF, fracture, ankle CANCELLOUS COARSE 7.5CC FDA Start: 09-24-2021 ORIF, fracture, ankle CANCELLOUS COARSE 7.5CC FDA Start: 09-24-2021 Goals Date Patient Goal Desired Activity /State Clinical Notes 01-10-2021 to 05-12-2023 Note Date & Type Note Facility 05-12-2023 Note HNO ID: [id number] Author: SUMEET CALI MD Service: ? Author [...] visit. Either the patient or their legal door to door sales representative has been informed of the [...] Today, is seen with care team and rogerio Ferrell . His mother is also present virtually. [...] anxiety, (10-14) moderate anxiety, (15-21) severe anxiety [place] [facility] ([facility]) No data to display [...] evening, and 3 tablets at bedtime 0 lfvdndo-xtzuldvnv-xrhumzj D3 (OYSTER SHELL CALCIUM-VITAMIN D) 500 mg(1,250mg) [...] tid 0 (more content not included)... [facility] 02-25-2023 Evaluation + Plan note Diagnostic Tests PendingT3 Free 02/25/23 [facility] 11-12-2022 Evaluation + Plan note Diagnostic Tests PendingPSA Screen, Total 11/12/22 [facility] 07-08-2022 Note HNO ID: [id number] Author: Megan Tse MD Service: ? Author Type: Physician Type: Progress Notes Filed: 07/08/2022 10:30 AM Note Text: PSYC FOLLOW UP - PSYCHIATRIC PROGRESS NOTE CC: Follow-up, Intellectual disability, impulse control disorder I have communicated my name and active licensure. The patient's identity and physical location were verified at the time of this visit. Either the patient or their legal door to door sales representative has been informed of the risks and benefits of -- and alternatives to -- treatment through a remote evaluation and consents to proceed with the evaluation remotely. HPI: Nursing from [facility] and patient's mother/guardian (Ivory) present. Alethea happily [...] moderately severe depression, (20-27) severe depression [facility] No flowsheet data found. PAST MEDICAL [...] evening, and 3 tablets at bedtime 0 ayqyyrm-elvjguulk-uuilcav D3 (OYSTER SHELL CALCIUM-VITAMIN D) 500 mg(1,250mg) [...] Patient unable to participate PFSH: Living in group/chcf VITAL SIGNS: There were no vitals filed [...] Follow Up: 6 months Fax note to: [phone] ADD ON PSYCHOTHERAPY CODE : Dinorah Tse MD 10:18 AM, July 08, 2022 Associate Staff - Psychiatry [facility] 01-06-2022 Evaluation note Encounter Date Diagnosis Assessment Notes Dec, Displaced fracture of lateral malleolus of right fibula, subsequent encounter for closed fracture with routine healing (ICD-10 - S82.61XD) Alethea is here today for follow-up about 12 weeks s/p right ankle ORIF. He is doing well. He is currently residing at [facility]. There is no complaints overall. Ankle is [...] Other specified postprocedural states (ICD-10 - Z98.890) [facility] Other 10-12-2022 History of Present illness Narrative* Simi Edwards DDS - 12/04/2021 11:03 AM EDT ----- Saturday, December 04, 2021 at 11:22:04 AM ----- ----- Provider: [id number] - Ly Redmond Hygienist -- Clinic: [facility] ----- [facility], Pt is ready for tx. Pt presented with caries Radiograph taken today: none Discussed the medical necessity of the problem with the pt. Instructions given to pt. Caregiver understood the situation and is okay with medications for today. Pt will come back shouldthings get worse. Guardianship: PARENTS - Nabila Iniguez (Kathy)frankie [address] [place] [address] / Email: [email or web address] Communicated with caregiver that the pt was placed on the OR list and we will call with appt. Limited exam completed by Dr. Noel STEPHENS. OR ----- Signed on Saturday, December 04, 2021 at 11:51:43 AM ----- ----- Provider: [id number] Tucker Myers DDS -- Clinic: [facility] ----- documented in this [id number] Evaluation note* Encounter Date Diagnosis Assessment Notes Treatment Notes Treatment Clinical Notes Oct, Displaced fracture of lateral malleolus of right fibula, subsequent encounter for closed fracture with routine healing (ICD-10 - S82.61XD) Alethea is here today for first follow-up 8 weeks s/p right ankle ORIF. He is doing well. He is currently residing at [facility]. There is no complaints overall. His incision [...] fracture with routine healing (ICD-10 - S82.392D) [facility] Other 08-24-2022 Evaluation note* Encounter Date Diagnosis Assessment Notes Treatment Notes Treatment Clinical Notes Sep, Displaced fracture of lateral malleolus of right fibula, subsequent encounter for closed fracture with routine healing (ICD-10 - S82.61XD) Alethea is here today for first follow-up 3 weeks s/p right ankle ORIF. He is doing well. He is currently residing at [facility]. There is no complaints overall. His incision [...] as documented in the electronic medical record. [facility] Other 08-24-2022 NoteCast material is in place limiting evaluation. Hardware fixation involving the distal fibula withNoReno [employer] Systems Other 07-27-2022 NotePROCEDURE: XR TIB_FIB RT 2V [...] Electronically authenticated by: SANDY DÍAZ Date: 2021-09-18 17:14[facility]07-27-2022 NotePROCEDURE: XR ANKLE RT MIN 3 [...] Electronically authenticated by: SANDY DÍAZ Date: 2021-09-18 16:44[facility]07-27-2022 NotePROCEDURE: XR ANKLE LT MIN 3 [...] Electronically authenticated by: SANDY DÍAZ Date: 2021-09-18 15:33[facility]06-22-2022 Evaluation note* Encounter Date Diagnosis Assessment Notes Treatment Notes Treatment Clinical Notes Jul, Pulmonary cavitary lesion (ICD-10 - J98.4) Jul, 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 I have personally seen and evaluated the patient, repeating narayanan portions. There is no significant interval change. Surgery is still indicated. Yes Consent reviewed and signed by patient/family: Yes Operative site verified and marked: site verified but not marked as not anatomically possible Carolyn López DDS 01/25/2021 9:50 [employer]11-18-2021 NotePatient is vaccinated for COVID-19: Pfizer on 03/06/2020 AND 03/27/2020. Patient does not require pre-op COVID testing per current guidelines.[employer] [facility] [employer] SystemEvaluation noteNo assessment information availableOhiohealth O'Bleness Hospital Work Phone: Evaluation noteNo InformationNortTrinity Health [facility] Other Hisfzwu general Narrative - Reported* Type Description Date Medical History Unspecified intellectual disabil ities Medical History autism Medical History ADHD Medical History Seizure Disorder Medical History tuberous Sclerosis [facility] Other Hisjjbf general Narrative - Reported* Type Description Date Medical History Unspecified intellectual disabil ities Medical History autism Medical History ADHD Medical History Seizure Disorder Medical History tuberous Sclerosis Surgical History ORIF RT lateral malleolus fx Hospitalization History see above [facility] Other Hospital course Narrative No data available for this section [facility] No data available for this section [facility] No data available for this section [facility] Summary Purpose Family History No Family [...] section and content) DATE CREATED AUTHOR 08/19/2017 [facility] DATE CREATED AUTHOR AUTHOR'S ORGANIZ ATION [facility]/30/2018 [place] [facility] DATE CREATED AUTHOR AUTHOR'S ORGANIZ ATION 12/15/2021 [facility] DATE CREATED AUTHOR AUTHOR'S ORGANIZ ATION 04/17/2022 [facility] DATE CREATED AUTHOR AUTHOR'S ORGANIZ ATION 06/01/2022 [facility] DATE CREATED AUTHOR AUTHOR'S ORGANIZ ATION 02/28/2023 [place] [facility] DATE CREATED AUTHOR AUTHOR'S ORGANIZ ATION 05/19/2023 [facility] DATE CREATED AUTHOR AUTHOR'S ORGANIZ ATION 08/07/2023 [facility] REASON FOR VISIT (unrecogniz ed section and [...] BE BASED ON THE PRIMARY CLINICAL RECORDS. [employer] provides no warranty or guarantee of the accuracy or completeness of information in this document.
--- NOTE | 2023-08-12 10:21 | XR_ITS ---
[address] [address] Patient Name: ALETHEA LEI MRN: [id number] date: 1970 Sex: M Assigned Patient Location: [facility] Current Patient Location: Accession/Order Number: [id number] Exam Date: 08/12/2023 10:10 Report Date: 08/13/2023 07:08 At the request of: CHARISSA ESPINOZA Procedure: XR DEXA axial skeleton EXAMINATION: XR DEXA axial skeleton HISTORY: Osteoporosis COMPARISON: DEXA bone densitometry 07/31/2021 TECHNIQUE: Dual-energy X-ray absorptiometry (DXA) was performed. FINDINGS: SPINE ANALYSIS: Average bone mineral density is 1.268 g/cm2. T-score (standard deviation relative to young adult mean): 0.2 . +2.4% change since prior study. HIP ANALYSIS: Lowest bone mineral density is within the right femoral neck, 0.757 g/cm2. T-score (standard deviation relative to young adult mean): -2.4 . -2.2% change since prior study. XR/XR DEXA axial skeleton IMPRESSION: World Eh Organization Classification: Osteopenia - Moderate Fracture Risk FRAX: Cannot be calculated. Pharmacologic treatment recommendations * No uniform recommendation applies to all patients. Management plans must be individualized. * Consider initiating pharmacologic treatment in postmenopausal women and men >= 50 years of age who have the following: Primary fracture prevention: * T-score <= - 2.5 at the femoral neck, total hip, lumbar spine, 33% radius (some uncertainty with existing data) by DXA. * Low bone mass (osteopenia: T-score between - 1.0 and - 2.5) at the femoral neck or total hip by DXA with a 10-year hip fracture risk >= 3% or a 10-year major osteoporosis-related fracture risk >= 20% (i.e., clinical vertebral, hip, forearm, or proximal humerus) based on the [place]-adapted FRAXregistered model. Secondary fracture prevention: * Fracture of the hip or vertebra regardless of BMD [4, 5]. * Fracture of proximal humerus, pelvis, or distal forearm in persons with low bone mass (osteopenia: T-score between - 1.0 and - 2.5). The decision to treat should be individualized in persons with a fracture of the proximal humerus, pelvis, or distal forearm who do not have osteopenia or low BMD [12, 13]. Watson MS, Myla SL, Neftali KL, Tierra EM, Joya KG, AJ, Boris ES. The clinician's guide to prevention and treatment of osteoporosis. Osteoporos Int. 2021;33(10):4964-2336. doi: 10.1007/c54237-493-76190-r. Epub 2021Jun 20. Erratum in: Osteoporos Int. 2021Sep 19;: PMID: [id number]; PMCID: [id number]. Electronically authenticated by: SANDY DÍAZ Date: 08/13/2023 07:08
== END 2023-08-12 09:45 | disposition home or self-care (01) ==
LOC: RAD 09:44
PROVIDERS: Visit Provider Family Medicine
DX: M81.8 Other osteoporosis without current pathological fracture (principal); M85.80 Other specified disorders of bone density and structure, unspecified site
CPT/HCPCS: 77080

== ENCOUNTER 2023-11-17 12:44 | Outpatient (OUT) | payer MEDICARE, MEDICAID, SELFPAY ==
--- NOTE | 2023-11-17 | ECG_ITS ---
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
--- OUTSIDE RECORDS SUMMARY | 2023-11-17 13:08 | XMS_ITS | CCD ---
Author Organization [facility] Care Team Providers Care Airplane Pilot Commercial Name Role Phone Robbi PETERSEN Unavailable Unavailable ESPINOZA, GO A Unavailable Unavailable ESPINOZA, GO A Unavailable Unavailable Chanoemi, Kamal Unavailable Cj Gayle Unavailable DO Go Espinoza A Primary Care Provider DO Cj Gayle Attending Provider [phone] PROVIDER, UNKNOWN Attending Unavailable PROVIDER, UNKNOWN Admitting Unavailable PROVIDER, UNKNOWN Admitting Unavailable PROVIDER, UNKNOWN Attending Unavailable SIMI EDWARDS Admitting Unavailable SIMI EDWARDS Attending Unavailable SIMI EDWARDS Referring Unavailable Unavailable Primary Care Provider Unavailabl e Kristin, DO Go A Primary Care Provider [phone] DO Cj Gayle A Attending Provider Kristin DO Go A Primary Care Provider DO Cj Gayle A Attending Provider MD Nallely Parada Attending Provider [phone] Cj Gayle A Attending Unavailable Espinoza, Go [...] Unavailable SHEILA ., MARY Consulting Unavailable KIRT ., TRAN Consulting Unavailable ESPINOZA, DR GO Ricci Primary [...] Ricci Consulting Unavailable ESPINOZAGO Primary Care Physician [phone] YADIRA DE LA CRUZ Attending Unavailable BROWNPITER Attending Unavailable ESPINOZA, GO Admitting Unavailable ESPINOZA, GO Attending Unavailable ESPINOZA, GO Attending Unavailable ESPINOZA, GO Admitting Unavailable ESPINOZA, GO Attending Unavailable ESPINOZA, GO Admitting Unavailable ESPINOZA, GO Attending Unavailable ESPINOZA, GO Admitting Unavailable MEGAN TSE Referring Unavailable SUMEET CALI Attending Unavailable ESPINOZA, GO ENCISO Primary Care Unavailab SUMEET Weiss Attending Unavailable ESPINOZA, GO ENCISO Primary Care Unavailab MEGAN Hanson Referring Unavailable Allergies Allergy Classification Reported Allergen(s) Allergy Type Date of Onset Reaction(s) Facility (1 source) PERTUSSIS VACCINE,FLUID; Translations: [PERTUSSIS VACCINE,FLUID] Propensity to adverse reactions to drug (disorder[facility] sources) PERTUSSIS VACCINES; Translations: [PERTUSSIS VACCINES] Propensity to adverse reactions to drug (disorder) 8 [facility] Repository (1 source) Pertussis Vaccine Drug Allergy 3 [facility] Repository (1 source) ARIPiprazole; Translations: [ARIPIPRAZOLE] Drug Allergy 8 [facility] Repository Medications Current Medications Medication Drug [...] DISEASE UNSPECIFIED] Onset: 03-17-2022 Chronic Developmental disorders (2 sources) Unspecified intellectual disabilities; Translations: [UNSPEC INTELLECTUAL DISABILITIES] Onset: 01-31-2021 Chronic Disorders usually diagnosed in infancy, childhood, or adolescence (2 sources) Autistic disorder; Translations: [AUTISTIC DISORDER] Onset: 08-01-2015 Chronic Epilepsy; convulsions (1 source) Epilepsy, unspecified, [...] 10-16-2021 Episodic Other aftercare (1 source) Other director long term care (current) drug therapy; Translations: [OTH INTERMEDIATE CURRENT DRUG THERAPY] Onset: 09-25-2021 Episodic Other [...] Test Name Value Interpretation Reference Range Facility T3 Freeon 08-21-2023 Free T3 [Mass/Vol] 1.8 pg/mL Low 2.0-4.4 [facility] Comment on above: Result Comment: Perf ormed at: [facility] [address] [id number] PhD Jarod Kumar Performed By: #### 2 [id number] #### [facility] [address] [place] [address] [id number] 08-20-2023 HbA1c (Bld) [Mass fraction] 5.1 % Normal <=5.9 [facility] Comment on above: Performed By: #### 7 [id number] #### [facility] [address] [id number] CBC w/Indiceson 08-19-2023 Erythrocyte distribution width (RBC) [Ratio] 13.2 % Normal 10.9-14.2 [facility] Comment on above: Performed By: #### 2 665931 #### [facility] [address] [place] [address] Hematocrit (Bld) [Volume fraction] 39.3 % Normal 37.7-49.0 [facility] Comment on above: Performed By: #### 2 755423 #### [facility] [address] [place] [address] Hemoglobin (Bld) [Mass/Vol] 13.0 g/dL Low 13.5-17.5 [facility] Comment on above: Performed By: #### 2 143837 #### [facility] [address] [place] [address] MCH (RBC) [Entitic mass] 33.1 pg Normal 27.0-34.0 [facility] Comment on above: Performed By: #### 2 963244 #### [facility] [address] [place] [address] MCHC (RBC) [Mass/Vol] 33.2 g/dL Normal 31.4-36.0 [facility] Comment on above: Performed By: #### 2 948979 #### [facility] [address] [place] [address] MCV (RBC) [Entitic vol] 99.7 fL Normal 80.0-100.0 [facility] Comment on above: Performed By: #### 2 288320 #### [facility] [address] [place] [address] Platelet mean volume (Bld) [Entitic vol] 8.9 fL Normal 6.4-10.8 [facility] Comment on above: Performed By: #### 2 831778 #### [facility] [address] [place] [address] Platelets (Bld) [#/Vol] 156.0 E9/L Normal 150.0-500.0 [facility] Comment on above: Performed By: #### 2 640626 #### [facility] [address] [place] [address] RBC (Bld) [#/Vol] 3.9 E12/L Low 4.3-5.9 [facility] Comment on above: Performed By: #### 2 234162 #### [facility] [address] [place] [address] RBC size Nom (Bld) NORMAL Invalid Interpretation Code [facility] Comment on above: Performed By: #### 2 789890 #### [facility] [address] [place] [address] WBC corrected for nucl RBC Auto (Bld) [#/Vol] 5.3 E9/L Normal 4.0-11.0 [facility] Comment on above: Performed By: #### 2 008880 #### [facility] [address] [place] [address] CHEMISTRYOrdered By: SYSTEM SYSTEM on 08-19-2023 25-hydroxyvitamin D3 [Mass/Vol] 42.7 ng/mL Normal 30.0 - 100.0 ng/mL [facility] Albumin [Mass/Vol] 4.1 g/dL Normal 3.3 - 5.0 gm/dL [facility] Albumin/Globulin [Mass ratio] 1.5 {ratio} Normal 1.1 - 2.2 [facility] ALP [Catalytic activity/Vol] 161 [iU]/d High 21 - 98 Int._Unit/L [facility] ALT No additional P-5'-P [Catalytic activity/Vol] 30 [iU]/d Normal 6 - 46 Int._Unit/L [facility] Anion gap [Moles/Vol] 10 mmol/L Normal 6 - 16 mEq/L R emisol Chem AST [Catalytic activity/Vol] 21 [iU]/d Normal 5 - 43 Int._Unit/L [facility] Bilirubin [Mass/Vol] 0.4 mg/dL Normal 0.0 - 1 .1 mg/dL [facility] Calcium [Mass/Vol] 8.9 mg/dL Normal 8.9 - 11. 1 mg/dL [facility] Chloride [Moles/Vol] 113 mmol/L High 101 - 1 11 mmol/L [facility] Cholesterol [Mass/Vol] 108 mg/dL Low 120 - 200 mg/dL [facility] Cholesterol in HDL [Mass/Vol] 34 mg/dL Invalid Interpretation Code [facility] Comment on above: Result Comment: '>= 60 LOW RISK' '<= 40 HIGH RISK' Cholesterol in LDL [Mass/Vol] 59 mg/dL Normal <=129mg/dL [facility] Cholesterol in VLDL [Mass/Vol] 19 mg/dL Normal 7 - 40 mg/dL [facility] CO2 [Moles/Vol] 24 mmol/L Normal 21 - 31 mmol/L [facility] Creatinine [Mass/Vol] 1.6 mg/dL High 0.5 - 1.3 mg/dL [facility] eGFR 50 mL/min/1.73 m2 Low >=59mL/min /1 .73 m2 [facility] Free T4 [Mass/Vol] 0.56 ng/dL Low 0.58 - 1. 64 ng/dL [facility] Globulin (S) [Mass/Vol] 2.8 g/dL Normal 1.4 - 4.0 gm/dL [facility] Glucose [Mass/Vol] 86 mg/dL Normal 55 - 199 mg/dL [facility] Potassium [Moles/Vol] 4.8 mmol/L Normal 3.5 - 5.3 mmol/L [facility] Prostate specific Ag [Mass/Vol] 0.4 ng/mL Normal 0.1 - 3.5 ng/mL [facility] Comment on above: Interpretive Data: T he concentration of PSA determined by different manufacturers can vary due to differences in assay methods and reagent specificity. Values obtained from different assay methods cannot be used interchangeably. The methodology used for this result was chemiluminescence using Ya [employer]'s Access Hybritech PSA reagent. Protein [Mass/Vol] 6.9 g/dL Normal 6.0 - 7.8 gm/dL [facility] Sodium [Moles/Vol] 142 mmol/L Normal 135 - 145 mmol/L [facility] Triglyceride [Mass/Vol] 94 mg/dL Normal <=149mg/dL [facility] TSH Qn 0.10 m[IU]/L Low 0.34 - 5.60 mcIU/mL [facility] Urea nitrogen [Mass/Vol] 30 mg/dL High 5 - 21 mg/dL [facility] Urea nitrogen/Creatinine [Mass ratio] 19 mg/mg Normal 10 - 20 [facility] CMPon 08-19-2023 Albumin [Mass/Vol] 4.1 g/dL Normal 3.3-5.0 [facility] Comment on above: Performed By: #### 2 [id number] #### [facility] [address] [place] [address] Albumin/Globulin (S) [Mass conc ratio] 1.5 Normal 1.1-2.2 [facility] Comment on above: Performed By: #### 2 359804 #### [facility] [address] [place] [address] ALP [Catalytic activity/Vol] 161 Int._Unit/L High 21-98 [facility] Comment on above: Performed By: #### 2 758445 #### [facility] [address] [place] [address] ALT No additional P-5'-P [Catalytic activity/Vol] 30 Int._Unit/L Normal 6-46 [facility] Comment on above: Performed By: #### 2 836127 #### [facility] [address] [place] [address] Anion gap [Moles/Vol] 10 mmol/L Normal 6-16 [facility] Comment on above: Performed By: #### 2 496310 #### [facility] [address] [place] [address] AST [Catalytic activity/Vol] 21 Int._Unit/L Normal 5-43 [facility] Comment on above: Performed By: #### 2 241711 #### [facility] [address] [place] [address] Bilirubin [Mass/Vol] 0.4 mg/dL Normal 0.0-1.1 [facility] Comment on above: Performed By: #### 2 023751 #### [facility] [address] [place] [address] Calcium [Mass/Vol] 8.9 mg/dL Normal 8.9-11.1 [facility] Comment on above: Performed By: #### 2 481575 #### [facility] [address] [place] [address] Chloride [Moles/Vol] 113 mmol/L High 101-111 [facility] Comment on above: Performed By: #### 2 981011 #### [facility] [address] [place] [address] CO2 [Moles/Vol] 24 mmol/L Normal 21-31 [facility] Comment on above: Performed By: #### 2 164946 #### [facility] [address] [place] [address] Creatinine [Mass/Vol] 1.6 mg/dL High 0.5-1.3 [facility] Comment on above: Performed By: #### 2 323807 #### [facility] [address] [place] [address] Globulin (S) [Mass/Vol] 2.8 g/dL Normal 1.4-4.0 [facility] Comment on above: Performed By: #### 2 225821 #### [facility] [address] [place] [address] Glucose [Mass/Vol] 86 mg/dL Normal 55-199 [facility] Comment on above: Performed By: #### 2 614573 #### [facility] [address] [place] [address] Potassium [Moles/Vol] 4.8 mmol/L Normal 3.5-5.3 [facility] Comment on above: Performed By: #### 2 355893 #### [facility] [address] [place] [address] Protein [Mass/Vol] 6.9 g/dL Normal 6.0-7.8 [facility] Comment on above: Performed By: #### 2 854454 #### [facility] [address] [place] [address] Sodium [Moles/Vol] 142 mmol/L Normal 135-145 [facility] Comment on above: Performed By: #### 2 672012 #### [facility] [address] [place] [address] Urea nitrogen [Mass/Vol] 30 mg/dL High 5-21 [facility] Comment on above: Performed By: #### 2 950423 #### [facility] [address] [place] [address] Urea nitrogen/Creatinine [Mass ratio] 19 No Units Normal 10-20 [facility] Comment on above: Performed By: #### 2 823806 #### [facility] [address] [place] [address] Free T4on 08-19-2023 Free T4 [Mass/Vol] 0.56 ng/dL Low 0.58-1.64 [facility] Comment on above: Performed By: #### 2 348684 #### [facility] [address] [place] [address] HEMATOLOGYOrdered By: SYSTEM SYSTEM on 08-19-2023 Erythrocyte distribution width (RBC) [Ratio] 13.2 % Normal 10.9 - 14.2 % [facility] Hematocrit (Bld) [Volume fraction] 39.3 % Normal 37.7 - 49.0 % [facility] Hemoglobin (Bld) [Mass/Vol] 13.0 g/dL Low 13.5 - 17.5 gm/dL [facility] MCH (RBC) [Entitic mass] 33.1 pg Normal 27.0 - 34.0 pg [facility] MCHC (RBC) [Mass/Vol] 33.2 g/dL Normal 31.4 - 36.0 gm/dL [facility] MCV (RBC) [Entitic vol] 99.7 fL Normal 80.0 - 100.0 fL [facility] Platelet mean volume (Bld) [Entitic vol] 8.9 fL Normal 6.4 - 10.8 fL [facility] Platelets (Bld) [#/Vol] 156.0 E9/L Normal 150.0 - 500.0 E9/L [facility] RBC (Bld) [#/Vol] 3.9 E12/L Low 4.3 - 5.9 E12/L [facility] RBC size Nom (Bld) NORMAL *NA* (08/19/23 6:55 AM) Invalid Interpretation Code [facility] WBC corrected for nucl RBC Auto (Bld) [#/Vol] 5.3 E9/L Normal 4.0 - 11.0 E9/L [facility] Lipid Panelon 08-19-2023 Cholesterol [Mass/Vol] 108 mg/dL Low 120-200 [facility] Comment on above: Performed By: #### 2 [id number] #### [facility] [address] [place] [address] Cholesterol in HDL [Mass/Vol] 34 mg/dL Invalid Interpretation Code [facility] Comment on above: Result Comment: '>= 60 LOW RISK' '<= 40 HIGH RISK' Performed By: #### 2 001956 #### [facility] [address] [place] [address] Cholesterol in LDL [Mass/Vol] 59 mg/dL Normal <=129 [facility] Comment on above: Performed By: #### 2 937780 #### [facility] [address] [place] [address] Cholesterol in VLDL [Mass/Vol] 19 mg/dL Normal 7-40 [facility] Comment on above: Performed By: #### 2 491277 #### [facility] [address] [place] [address] Triglyceride [Mass/Vol] 94 mg/dL Normal <=149 [facility] Comment on above: Performed By: #### 2 938824 #### [facility] [address] [place] [address] PSA Screen, Totalon 08-19-19 Prostate specific Ag [Mass/Vol] 0.4 ng/mL Normal 0.1-3.5 [facility] Comment on above: Result Comment: The concentration of PSA determined by different manufacturers can vary due to differences in assay methods and reagent specificity. Values obtained from different assay methods cannot be used interchangeably. The methodology used for this result was chemiluminescence using Tang[employer]'s Access Hybritech PSA reagent. Performed By: #### 1 [id number] #### [facility] [address] [place] [address] Physician Orderon 08-19-2023 Physician Order [id number] 9#[id number] Normal [facility] TSHon 08-19-2023 TSH Qn 0.10 m[IU]/L Low 0.34-5.60 [facility] Comment on above: Performed By: #### 2 028281 #### [facility] [address] [place] [address] Vitamin D 25 Hydroxyon 08-18 25-hydroxyvitamin D3 [Mass/Vol] 42.7 ng/mL Normal 30.0-100.0 [facility] Comment on above: Performed By: #### 5 [id number] #### [facility] [address] [place] [address] eGFRon 08-19-2023 eGFR 50 mL/min/1.73 m2 Low >=59 [facility] Comment on above: Order Comment: Order added by Discern Expert. Performed By: #### 1 [id number] #### [facility] [address] [place] [address] CNPNon 05-15-2023 CNPN Telephone (PSYRMN) ALETHEA LEI ([id number]) 1970 M Date Time Provider Department 05/15/23 SUMEET CALI PSYRMN During your visit today, we recorded the following information about you: Mariana Fair 05/15/2023 2:56 PM Signed Lucretia Allison- patients mom called and stated that [facility] is not able to do an appt for patient with you? They told her if you had a form that you can send to them? She don't know the name of the form? The conversation was a bit confusing. 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] 08/02/2008 Autism spectrum disorder [F84.0] 08/02/2008 Impulse control disorder [F63.9] 08/16/2012 Intellectual disability [F79] 01/31/2021 Encounter Status:Closed by MARIANA FAIR on 05/18/23 Normal [facility] T3 Freeon 02-27-2023 Free T3 [Mass/Vol] 2.0 pg/mL Invalid Interpretation Code 2.0-4.4 [facility] Comment on above: Result Comment: Perf ormed at: [facility] [place] [address] [place], [place] [id number] PhD Jarod Kumar Performed By: #### 2 949312, 3336666, 0630405, 39638838, 889413788, 2455519, 8012845, 7264137, 1791365, 8696626 ####[facility] [address] [place] [address] CBC w/Indiceson 02-25-2023 Erythrocyte distribution width (RBC) [Ratio] 13.2 % Normal 10.9-14.2 [facility] Comment on above: Performed By: #### 2 629984, 6836126, 5345697, 27912545, 607909755, 5574455, 1476248, 9421025, 1643876, 4569904 #### [facility] [address] [place] [address] Hematocrit (Bld) [Volume fraction] 40.6 % Normal 37.7-49.0 [facility] Comment on above: Performed By: #### 2 870930, 1435888, 3105325, 69550740, 975490973, 3785927, 9523043, 5534377, 0422269, 8008814 #### [facility] [address] [place] [address] Hemoglobin (Bld) [Mass/Vol] 13.4 g/dL Low 13.5-17.5 [facility] Comment on above: Performed By: #### 2 043696, 2007833, 1889612, 71518890, 535183169, 2944181, 8174550, 2312245, 3478881, 4300654 #### [facility] [address] [place] [address] MCH (RBC) [Entitic mass] 32.7 pg Normal 27.0-34.0 [facility] Comment on above: Performed By: #### 2 460614, 2181058, 8188823, 33432180, 633732218, 1762530, 5305453, 2626604, 5718776, 8221631 #### [facility] [address] [place] [address] MCHC (RBC) [Mass/Vol] 33.0 g/dL Normal 31.4-36.0 [facility] Comment on above: Performed By: #### 2 752035, 5379353, 6900033, 40380118, 052439014, 0528045, 6264841, 0615035, 9896608, 3256221 #### [facility] [address] [place] [address] MCV (RBC) [Entitic vol] 99.1 fL Normal 80.0-100.0 [facility] Comment on above: Performed By: #### 2 002088, 5585141, 3960311, 51670230, 907512186, 4482558, 6279498, 0282789, 0983730, 9076433 #### [facility] [address] [place] [address] Platelet mean volume (Bld) [Entitic vol] 9.6 fL Normal 6.4-10.8 [facility] Comment on above: Performed By: #### 2 889015, 4574255, 8648189, 09132013, 301366232, 6718588, 6342652, 2267286, 5462168, 0196529 #### [facility] [address] [place] [address] Platelets (Bld) [#/Vol] 170.0 E9/L Normal 150.0-500.0 [facility] Comment on above: Performed By: #### 2 681158, 0389785, 6985083, 80367531, 793439035, 5973663, 2029569, 0154402, 4315681, 9818329 #### [facility] [address] [place] [address] RBC (Bld) [#/Vol] 4.1 E12/L Low 4.3-5.9 [facility] Comment on above: Performed By: #### 2 114052, 2684384, 5212011, 37575674, 291976421, 2658472, 4368840, 6236342, 8687349, 9139331 #### [facility] [address] [place] [address] WBC corrected for nucl RBC Auto (Bld) [#/Vol] 4.4 E9/L Normal 4.0-11.0 [facility] Comment on above: Performed By: #### 2 716505, 8645310, 3662246, 56863679, 377067104, 7664395, 4137981, 7390507, 9246725, 3691715 #### [facility] [address] [place] [address] CHEMISTRYOrdered By: SYSTEM SYSTEM on 02-25-2023 Albumin [...] Normal 30.0 - 100.0 ng/mL [facility] CMPon 02-25-2023 Albumin [Mass/Vol] 4.1 g/dL Normal 3.3-5.0 [facility] Comment on above: Performed By: #### 2 806764, 3985026, 1353398, 82248373, 392500057, 3323645, 2564953, 8749983, 1800050, 3412913 #### [facility] [address] [place] [address] Albumin/Globulin [Mass ratio] 1.4 {ratio} Normal 1.1-2.2 [facility] Comment on above: Performed By: #### 2 221447, 7262339, 1661457, 22067286, 818529296, 9611680, 4509829, 3863432, 5069591, 9120639 #### [facility] [address] [place] [address] Alk Phos 158 Int._Unit/L High 21-98 [facility] Comment on above: Performed By: #### 2 907894, 8057745, 4163685, 19952145, 406591224, 4023612, 9749855, 6771257, 3990229, 1890576 #### [facility] [address] [place] [address] ALT 32 Int._Unit/L Normal 6-46 [facility] Comment on above: Performed By: #### 2 090920, 5717618, 3484047, 56530383, 309149495, 9132704, 8952256, 8612872, 0675036, 5686262 #### [facility] [address] [place] [address] Anion gap [Moles/Vol] 12 mmol/L Normal 6-16 [facility] Comment on above: Performed By: #### 2 816410, 1971908, 8112483, 64257167, 214465418, 1218720, 7299383, 7466523, 9297184, 3896215 #### [facility] [address] [place] [address] AST 25 Int._Unit/L Normal 5-43 [facility] Comment on above: Performed By: #### 2 635889, 9694638, 8347517, 99598225, 903954097, 0654290, 7432571, 4080629, 9818070, 6797761 #### [facility] [address] [place] [address] Bili Total 0.3 mg/dL Normal 0.0-1.1 [facility] Comment on above: Performed By: #### 2 954213, 8180371, 2898666, 81391816, 043720600, 6300433, 9617395, 0237534, 7782241, 5477600 #### [facility] [address] [place] [address] BUN/Creat Ratio 17 No Units Normal 10-20 [facility] Comment on above: Performed By: #### 2 777818, 0361950, 4568659, 83178453, 844926159, 1193017, 5827600, 6291676, 8541974, 8731545 #### [facility] [address] [place] [address] Calcium [Mass/Vol] 8.9 mg/dL Normal 8.9-11.1 [facility] Comment on above: Performed By: #### 2 515434, 7854516, 3829424, 61078952, 876228330, 2535338, 1861217, 2148219, 3223676, 8041236 #### [facility] [address] [place] [address] Chloride [Moles/Vol] 113 mmol/L High 101-111 [facility] Comment on above: Performed By: #### 2 050745, 7980575, 2732120, 26165315, 557322382, 9631562, 8861274, 1993591, 2893409, 1829330 #### [facility] [address] [place] [address] CO2 [Moles/Vol] 22 mmol/L Normal 21-31 [facility] Comment on above: Performed By: #### 2 742087, 8854379, 1505905, 58626730, 472502864, 8096741, 3823781, 6430234, 4528557, 6662071 #### [facility] [address] [place] [address] Creatinine [Mass/Vol] 1.5 mg/dL High 0.5-1.3 [facility] Comment on above: Performed By: #### 2 142977, 1106016, 4572120, 30901902, 904205033, 3361150, 9549972, 4612380, 2754167, 9949330 #### [facility] [address] [place] [address] Globulin (S) [Mass/Vol] 2.9 g/dL Normal 1.4-4.0 [facility] Comment on above: Performed By: #### 2 477462, 8819050, 1051601, 31748455, 199623461, 6629590, 8115443, 3650784, 2634996, 3130247 #### [facility] [address] [place] [address] Glucose [Mass/Vol] 90 mg/dL Normal 55-199 [facility] Comment on above: Performed By: #### 2 924227, 8944996, 0981502, 00139089, 534196837, 6612254, 1802175, 6848296, 8927283, 8710850 #### [facility] [address] [place] [address] Potassium [Moles/Vol] 4.8 mmol/L Normal 3.5-5.3 [facility] Comment on above: Performed By: #### 2 187079, 4061998, 3889962, 58893605, 422896966, 9077755, 7559847, 4960422, 0932160, 5737090 #### [facility] [address] [place] [address] Protein [Mass/Vol] 7.0 g/dL Normal 6.0-7.8 [facility] Comment on above: Performed By: #### 2 168644, 9545547, 6967252, 00931490, 476293521, 4296047, 1986144, 2997434, 2301465, 3878782 #### [facility] [address] [place] [address] Sodium [Moles/Vol] 142 mmol/L Normal 135-145 [facility] Comment on above: Performed By: #### 2 783760, 9342938, 0888361, 50700070, 938486195, 7167903, 6400506, 9633245, 5550822, 3652496 #### [facility] [address] [place] [address] Urea nitrogen [Mass/Vol] 26 mg/dL High 5-21 [facility] Comment on above: Performed By: #### 2 047917, 7036339, 1447804, 07685023, 379773507, 1047902, 4362246, 0146742, 7018728, 6209571 #### [facility] [address] [place] [address] Free T4on 02-25-2023 Free T4 [Mass/Vol] 0.66 ng/dL Normal 0.58-1.64 [facility] Comment on above: Performed By: #### 2 815909, 8575648, 7229191, 76719746, 255188616, 0945297, 1250866, 7552274, 7878855, 6933860 #### [facility] [address] [place] [address] HEMATOLOGYOrdered By: Clarence Srivastava on 02-25-2023 Erythrocyte distribution width (RBC) [Ratio] 13.2 % Normal 10.9 - 14.2 % [facility]eAuto[facility] Hematocrit (Bld) [Volume fraction] 40.6 % Normal 37.7 - 49.0 % [facility] Hemoglobin (Bld) [Mass/Vol] 13.4 g/dL Low 13.5 - 17.5 gm/dL [facility] MCH (RBC) [Entitic mass] 32.7 pg Normal 27.0 - 34.0 pg [facility] MCHC (RBC) [Mass/Vol] 33.0 g/dL Normal 31.4 - 36.0 gm/dL [facility] MCV (RBC) [Entitic vol] 99.1 fL Normal 80.0 - 100.0 fL [facility] Platelet mean volume (Bld) [Entitic vol] 9.6 fL Normal 6.4 - 10.8 fL [facility] Platelets (Bld) [#/Vol] 170.0 E9/L Normal 150.0 - 500.0 E9/L [facility] RBC (Bld) [#/Vol] 4.1 E12/L Low 4.3 - 5.9 E12/L [facility] WBC corrected for nucl RBC Auto (Bld) [#/Vol] 4.4 E9/L Normal 4.0 - 11.0 E9/L [facility] Ironon 02-25-2023 Iron 130 microgram/dL Normal 35-153 [facility] Comment on above: Performed By: #### 2 864784, 7975820, 2376854, 81652981, 100319509, 7480934, 6486018, 5744427, 7588644, 1347831 #### [facility] [address] [place] [address] Lipid Panelon 02-25-2023 Cholesterol [Mass/Vol] 105 mg/dL Low 120-200 [facility] Comment on above: Performed By: #### 2 918531, 5933979, 5585445, 37285254, 023083108, 8223318, 3859143, 2238839, 4457610, 2686376 #### [facility] [address] [place] [address] Cholesterol in HDL [Mass/Vol] 40 mg/dL Invalid Interpretation Code [facility] Comment on above: Result Comment: '>= 60 LOW RISK' '<= 40 HIGH RISK' Performed By: #### 2 018812, 4387756, 8292011, 50117214, 781465769, 2672639, 9025264, 6844376, 4165857, 3389433 #### [facility] [address] [place] [address] Cholesterol in LDL [Mass/Vol] 54 mg/dL Normal <=129 [facility] Comment on above: Performed By: #### 2 028732, 2156310, 0930689, 87118365, 088395882, 7724838, 4093676, 6092012, 5954820, 7478793 #### [facility] [address] [place] [address] Cholesterol in VLDL [Mass/Vol] 16 mg/dL Normal 7-40 [facility] Comment on above: Performed By: #### 2 720049, 6944865, 6297962, 71182069, 886395468, 4154621, 0418665, 0557072, 3678670, 9588962 #### [facility] [address] [place] [address] Triglyceride [Mass/Vol] 81 mg/dL Normal <=149 [facility] Comment on above: Performed By: #### 2 816225, 4120076, 9201641, 72530628, 010956035, 9893648, 3911149, 3382051, 9031661, 1680184 #### [facility] [address] [place] [address] Physician Orderon 02-25-2023 Physician Order [id number] 5#1.00TIFF Normal [facility] TSHon 02-25-2023 TSH Qn 0.03 m[IU]/L Low 0.34-5.60 [facility] Comment on above: Performed By: #### 2 845149, 8770268, 8981565, 77061375, 472826996, 4857221, 7085085, 0160807, 5378975, 8731412 #### [facility] [address] [place] [address] Vit B12on 02-25-2023 Cobalamin (Vitamin B12) [Mass/Vol] 483 pg/mL Normal 50-1500 [facility] Comment on above: Performed By: #### 2 098590, 6792339, 5308495, 92238925, 403198236, 7929219, 9908042, 4449132, 7883986, 2865170 #### [facility] [address] [place] [address] Vitamin D 25 Hydroxyon 02-25 Vitamin D 25 Hydroxy 50.9 ng/mL Normal 30.0-100.0 [facility] Comment on above: Performed By: #### 2 446982, 8620529, 3436481, 31976724, 274325877, 1870533, 9370710, 4561817, 0054249, 2798611 ####[facility] [address] [place] [address] eGFRon 02-25-2023 eGFR 55 mL/min/1.73 m2 Low >=59 [facility] Comment on above: Order Comment: Order added by Discern Expert. Performed By: #### 2 965638, 4638069, 5541244, 12390746, 796073693, 4432958, 4631908, 8649656, 4520269, 3843428 #### [facility] [address] [place] [address] PSA Screen, Totalon 11-14-19 23 Prostate specific Ag [Mass/Vol] 0.5 ng/mL Normal 0.1-3.5 [facility] Comment on above: Result Comment: The concentration of PSA determined by different manufacturers can vary due to differences in assay methods and reagent specificity. Values obtained from different assay methods cannot be used interchangeably. The methodology used for this result was chemiluminescence using [employer] Access Hybritech PSA reagent. Performed By: #### 1 [id number] ####[facility] [address] [place] [address] Physician Orderon 11-12-2022 Physician Order [id number] 7#1.00CD:127 Normal [facility] US KIDNEYS BLADDERon 023 US KIDNEYS BLADDER EXAMINATION: US KIDNEYS [...] NORMA ROSS Date: 2022-05-27 08:52 Normal [facility] XR PELVIS 1_2 VIEWSon 2022 XR [...] JONAH MAJANO Date: 2022-04-14 08:21 Normal [facility] XR HIP RT 2 3V WO [...] by: NORMA BROWN Date: 2022-04-10 08:41 Normal [facility] Glucose Poct Glucometerson 0 04-09-2022 Commemt1 Normal [facility] Comment on above: Result Comment: Glu2 : WILL NOTIFY DR/RN PERFORMED BY: [place] [address] PATHOLOGIST BOAT RENTAL CLERK CHRISTINE FERNÁNDEZ M.D. Performed By: #### G LULS #### Point of Care testing , Glucose [Mass/Vol] 58 mg/dL Off scale low [facility] Comment on above: Result Comment: Alloy Glucose Reference Range is dependent on time and content of last meal. Glucose of more than 200 mg/dL in a nonstressed, ambulatory subject supports the diagnosis of Diabetes Mellitus. Performed By: #### G LULS #### Point of Care testing , PET tumor init tx strat sb-m ton 04-09-2022 PET tumor init tx strat sb-mt [facility] Main [place] [id number] Nuclear Medicine Report Signed Patient: Alethea Lei MR#: [id number] : 1970 Acct:[id number] Age/Sex: 52 / M ADM Date: 04/09/22 Loc: Room: Type: [facility] Attending Dr: Nallely Parada MD Copies [...] Impression dictated by: Panda De Guzman Jr., D.O.04/09/2022 1:09 PM Dictation Location: [place] [address] Transcribed By: WENDY 04/09/22 1309 Dictated By: Panda De Guzman Jr, DO 04/09/22 1259 Signed By: 04/09/22 1309 Normal [facility] Glucose Glucometer (BldC) [M ass/Vol]Ordered By: Nallely Parada on 03-12-2022 Glucose [Mass/Vol] 95 mg/dL [facility] Comment on above: Random Glucose Refer ence Range is dependent on time and content of last meal. Glucose of more than 200 mg/dL in a nonstressed, ambulatory subject supports the diagnosis of Diabetes Mellitus. Glucose Poct Glucometerson 0 03-12-2022 Glucose [Mass/Vol] 95 mg/dL Normal [facility] Comment on above: Result Comment: Alloy Glucose Reference Range is dependent on time and content of last meal. Glucose of more than 200 mg/dL in a nonstressed, ambulatory subject supports the diagnosis of Diabetes Mellitus. PERFORMED BY: [facility] [address] [address] PATHOLOGIST BOAT RENTAL CLERK CHRISTINE FERNÁNDEZ M.D. Performed By: #### G LURENITA #### Point of Care testing , CBC AUTO DIFFon 03-11-2022 BASO # 0.0 103/ul Normal 0.0-0.1 [facility] Comment on above: Performed By: #### C BC ####[facility] [address] [place] [address]Dr. Guille Mayo Basophils/100 WBC (Bld) 0.6 % Normal 0.2-2.0 [facility] Comment on above: Performed By: #### C BC ####[facility] [address] [place] [address]Dr. Guille Mayo EO # 0.2 103/ul Normal 0.0-0.7 [facility] Comment on above: Performed By: #### C BC ####[facility] [address] [place], [place] [address]Dr. Guille Mayo Eosinophils/100 WBC (Bld) 2.8 % Normal 0.9-7.0 [facility] Comment on above: Performed By: #### C BC ####[facility] [address] [place], [place] [address]Dr. Guille Mayo Erythrocyte distribution width (RBC) [Ratio] 12.6 % Normal 11.0-15.0 [facility] Comment on above: Performed By: #### C BC ####[facility] [address] [place], [place] [address]Dr. Guille Mayo Hematocrit (Bld) [Volume fraction] 40.4 % Critically low 42.0-54.0 [facility] Comment on above: Performed By: #### C BC ####[facility] [address] [place], [place] [address]Dr. Guille Mayo Hemoglobin (Bld) [Mass/Vol] 13.7 g/dL Critically low 14.0-18.0 [facility] Comment on above: Performed By: #### C BC ####[facility] [address] [place], [place] [address]Dr. Guille Mayo IG # 0.02 10e3/ul Normal 0.00-0.03 [facility] Comment on above: Performed By: #### C BC ####[facility] [address] [place], [place] [address]Dr. Guille Mayo IG % 0.4 % Normal 0.0-0.5 [facility] Comment on above: Performed By: #### C BC ####[facility] [address] [place] [address]Dr. Guille Gael LYMPH # 1.1 103/ul Critically low 1.2-3.[address] [facility] Comment on above: Performed By: #### C BC ####[facility] [address] [place] [address]Dr. Guille Gael Lymphocytes/100 WBC (Bld) 20.8 % Normal 20.5-60.0 [facility] Comment on above: Performed By: #### C BC ####[facility] [address] [place] [address]Dr. Kylahizzy Mayo MANUAL DIFF REQ NO Normal [facility] Comment on above: Performed By: #### C BC ####[facility] [address] [place] [address]Dr. Guille Gael MCH (RBC) [Entitic mass] 32.3 pg Normal 25.9-34.0 [facility] Comment on above: Performed By: #### C BC ####[facility] [address] [place] [address]Dr. Guille Gael MCHC (RBC) [Mass/Vol] 33.9 g/dL Normal 29.9-35.2 [facility] Comment on above: Performed By: #### C BC ####[facility] [address] [place] [address]Dr. Guille Mayo MCV (RBC) [Entitic vol] 95.3 fL Critically high 80.0-94.0 [facility] Comment on above: Performed By: #### C BC ####[facility] [address] [place] [address]Dr. Guille Mayo MONO # 0.4 103/ul Normal 0.3-0.8 [facility] Comment on above: Performed By: #### C BC ####[facility] [address] [place] [address]Dr. Guille Mayo Monocytes/100 WBC (Bld) 7.4 % Normal 1.7-12.0 [facility] Comment on above: Performed By: #### C BC ####[facility] [address] [place], [place] [address]Vb. Guille Mayo NEUT # 3.7 103/ul Normal 1.4-6.5 [facility] Comment on above: Performed By: #### C BC ####[facility] [address] [place], [place] [address]Jw. Guille Mayo Neutrophils/100 WBC (Bld) 68.0 % Normal 43.0-75.0 [facility] Comment on above: Performed By: #### C BC ####[facility] [address] [place], [place] [address]Tt. Guille Gael Platelet mean volume (Bld) [Entitic vol] 10.4 fL Normal 9.5-13.5 [facility] Comment on above: Performed By: #### C BC ####[facility] [address] [place], [place] [address]Xm. Guille Mayo PLT 133 103/ul Critically low 150-450 [facility] Comment on above: Performed By: #### C BC ####[facility] [address] [place], [place] [address]Em. Kylahizzy Mayo RBC 4.24 106/ul Critically low 4.70-6.10 [facility] Comment on above: Performed By: #### C BC ####[facility] [address] [place], [place] [address]Ex. Guille Gael WBC 5.4 103/ul Normal 4.0-11.0 [facility] Comment on above: Performed By: #### C BC ####[facility] [address] [place], [place] [address]Ju. Guille Gael FREE T4on 03-11-2022 Free T4 [Mass/Vol] 0.68 ng/dL Critically low 0.76-1.46 [facility] Comment on above: Performed By: #### F T4 #### [facility] [address] [place], [place] [address] Dr. Guille Mayo LIPID PROFILEon 03-11-2022 CHOL-HDL RATIO NORM SEE BELOW Normal [facility] Comment on above: Result Comment: 3.3 - 4.4 LOW RISK 4.4 - 7.1 AVERAGE RISK 7.1 - 11.0 MODERATE RISK >11.0 HIGH RISK Performed By: #### L IPID, TSH, CMP #### [facility] [address] [place] [address] [address] Gulile Mayo Cholesterol [Mass/Vol] 130 mg/dL Normal <=200 [facility] Comment on above: Performed By: #### L IPID, TSH, CMP #### [facility] [address] [place] [address] [address] Guille Mayo Cholesterol in HDL [Mass/Vol] 45 mg/dL Normal 40-60 [facility] Comment on above: Performed By: #### L IPID, TSH, CMP #### [facility] [address] [place] [address] [address] Guille Mayo Cholesterol in LDL [Mass/Vol] 67.6 mg/dL Normal [facility] Comment on above: Performed By: #### L IPID, TSH, CMP #### [facility] [address] [place] [address] Dr. Guille Mayo Cholesterol.total/Cho lesterol in HDL [Mass ratio] 2.9 {ratio} Normal [facility] Comment on above: Performed By: #### L IPID, TSH, CMP #### [facility] [address] [place] [address] Dr. Guille Mayo HDL NORMAL > or = 60 mg/dl - LOW CARDIOVASCULAR RISK <40 mg/dl - HIGH CARDIOVASCULAR RISK Normal [facility] Comment on above: Performed By: #### L IPID, TSH, CMP #### [facility] [address] [place] [address] Dr. Guille Mayo LDL CALC NORMAL SEE BELOW Normal [facility] Comment on above: Result Comment: <100 mg/dl OPTIMAL 100 - 129 mg/dl NEAR OR ABOVE OPTIMAL 130 - 159 mg/dl BORDERLINE HIGH 160 - 189 mg/dl HIGH >190 mg/dl VERY HIGH Performed By: #### L IPID, TSH, CMP #### [facility] [address] [place] [address] [address] Guille Mayo Triglyceride [Mass/Vol] 87 mg/dL Normal <=150 [facility] Comment on above: Performed By: #### L IPID, TSH, CMP #### [facility] [address] [place] [address] Dr. Guille Mayo VLDL CALC 17.4 mg/dL Normal [facility] Comment on above: Performed By: #### L IPID, TSH, CMP #### [facility] [address] [place] [address] Dr. Guille Mayo PROF 14(COMP METB)on 023 Albumin [Mass/Vol] 3.8 g/dL Normal 3.4-5.0 [facility] Comment on above: Performed By: #### L IPID, TSH, CMP #### [facility] [address] [place] [address] Dr. Guille Mayo Albumin/Globulin [Mass ratio] 1.0 {ratio} Normal [facility] Comment on above: Performed By: #### L IPID, TSH, CMP #### [facility] [address] [place] [address] Dr. Guille Mayo ALP [Catalytic activity/Vol] 217 U/L Critically high 46-116 [facility] Comment on above: Performed By: #### L IPID, TSH, CMP #### [facility] [address] [place] [address] Dr. Guille Mayo ALT [Catalytic activity/Vol] 38 U/L Normal 16-63 [facility] Comment on above: Performed By: #### L IPID, TSH, CMP #### [facility] [address] [place] [address] Dr. Guille Mayo Anion gap [Moles/Vol] 12.2 mmol/L Normal [place] Comment on above: Performed By: #### L IPID, TSH, CMP #### [facility] [address] [place] [address] Dr. Guille Mayo AST [Catalytic activity/Vol] 32 U/L Normal 15-37 [facility] Comment on above: Performed By: #### L IPID, TSH, CMP #### [facility] [address] [place] [address] Dr. Guille Mayo Bilirubin [Mass/Vol] 0.3 mg/dL Normal 0.2-1.0 [facility] Comment on above: Performed By: #### L IPID, TSH, CMP #### [facility] [address] [place] [address] [address] Guille Mayo Calcium [Mass/Vol] 9.3 mg/dL Normal 8.5-10.1 [facility] Comment on above: Performed By: #### L IPID, TSH, CMP #### [facility] [address] [place] [address] [address] Guille Mayo Chloride [Moles/Vol] 106 mmol/L Normal 98-107 [facility] Comment on above: Performed By: #### L IPID, TSH, CMP #### [facility] [address] [place] [address] Dr. Guille Mayo CO2 [Moles/Vol] 27.2 mmol/L Normal 21.0-32.0 [facility] Comment on above: Performed By: #### L IPID, TSH, CMP #### [facility] [address] [place] [address] [address] Guille Mayo Creatinine [Mass/Vol] 1.31 mg/dL Critically high 0.70-1.30 [facility] Comment on above: Performed By: #### L IPID, TSH, CMP #### [facility] [address] [place] [address] Dr. Guille Mayo EGFR-AF AUSTRALIAN >60 Normal >=60 [facility] Comment on above: Performed By: #### L IPID, TSH, CMP #### [facility] [address] [place] [address] Dr. Guille Mayo EGFR-NON AF AUSTRALIAN 57 mL/min/1.73m2 Critically low >=60 [facility] Comment on above: Performed By: #### L IPID, TSH, CMP #### [facility] [address] [place] [address] [address] Guille Mayo Globulin (S) [Mass/Vol] 3.8 g/dL Normal [facility] Comment on above: Performed By: #### L IPID, TSH, CMP #### [facility] [address] [place] [address] [address] Guille Mayo Glucose [Mass/Vol] 98 mg/dL Normal 74-106 [facility] Comment on above: Performed By: #### L IPID, TSH, CMP #### [facility] [address] [place] [address] Dr. Guille Mayo Potassium [Moles/Vol] 4.4 mmol/L Normal 3.5-5.1 [facility] Comment on above: Performed By: #### L IPID, TSH, CMP #### [facility] [address] [place] [address] [address] Guille Mayo Protein [Mass/Vol] 7.6 g/dL Normal 6.4-8.2 [facility] Comment on above: Performed By: #### L IPID, TSH, CMP #### [facility] [address] [place] [address] Dr. Guille Mayo Sodium [Moles/Vol] 141 mmol/L Normal 136-145 [facility] Comment on above: Performed By: #### L IPID, TSH, CMP #### [facility] [address] [place] [address] Dr. Guille Mayo Urea nitrogen [Mass/Vol] 27.0 mg/dL Critically high 7.0-18.0 [facility] Comment on above: Performed By: #### L IPID, TSH, CMP #### [facility] [address] [place] [address] [address] Guille Mayo Urea nitrogen/Creatinine [Mass ratio] 20.6 mg/mg Normal [facility] Comment on above: Performed By: #### L IPID, TSH, CMP #### [facility] [address] [place] [address] Dr. Guille Mayo TSHon 03-11-2022 TSH 0.278 uIU/mL Critically low 0.358-3.740 [facility] Comment on above: Performed By: #### L IPID, TSH, CMP ####[facility] [address] [place] [address]DrCarol Mayo XR ankle RT min 3V*on 2021 XR ankle RT min 3V* [place] [address] XRay Report Signed Patient: Alethea Lei MR#: [id number] : 1970 Acct:[id number] Age/Sex: 51 / M ADM Date: 01/06/22 Loc: [facility] Room: Type: REG CLI Attending Dr: Cj [...] Geovanny Magallanes M.D.01/06/2022 3:54 PM Dictation Location: [place] [address] Transcribed By: [facility] 01/06/22 155 Dictated By: Geovanny Magallanes DO 01/06/22 1553 Signed By: 01/06/22 1554 Normal [facility] XR ankle RT min 3V* [facility] [employer] Other XR ankle RT min 3V* [facility] [employer] Other XR ankle RT min 3V* [address] [place] [address] [employer] Other XR ankle RT min 3V* [address] [employer] Other XR ankle RT min 3V* XRay Report [facility] [employer] Other XR ankle RT min 3V* Signed [facility] [employer] Other XR ankle RT min 3V* Patient: Alethea Lei MR#: [id number] [employer] Other XR ankle RT min 3V* : 1970 Acct:[id number] [employer] Other XR ankle RT min 3V* Age/Sex: 51 / M ADM Date: 01/06/22 [employer] Other XR ankle RT min 3V* Loc: [facility] Room: Type: [facility] [employer] Other XR ankle RT min 3V* Attending Dr: Cj Gayle DO [employer] Other XR ankle RT min 3V* Copies to: Cj Gayle DO [employer] Other XR ankle RT min 3V* Ordering Provider: Cj Gayle DO [employer] Other XR ankle RT min 3V* Date of Service: 01/06/22 [employer] Other XR ankle RT min 3V* XR/XR ankle RT min 3V*: Displaced fracture of lateral malleolus of right [employer] Other XR ankle RT min 3V* fibula, sub Nort [employer] Other XR ankle RT min 3V* 3views Rightankle [employer] Other XR ankle RT min 3V* COMPARISON:11/22/21 [employer] Other XR ankle RT min 3V* HISTORY: Status post ORIF RIGHT lateral malleolus fracture [employer] Other XR ankle RT min 3V* No hardware failure. Adequate bony alignment. Continued healing of distal fibular fracture. [employer] Other XR ankle RT min 3V* XR/XR ankle RT min 3V* [employer] Other XR ankle RT min 3V* IMPRESSION: Healing fracture. No hardware failure. [employer] Other XR ankle RT min 3V* Impression dictated by: Geovanny Magallanes M.D.01/06/2022 3:54 PM [employer] Other XR ankle RT min 3V* Dictation Location: [place] [address] [employer] Other XR ankle RT min 3V* Transcribed By: PWS 01/06/22 1554 [employer] Other XR ankle RT min 3V* Dictated By: Geovanny Magallanes DO 01/06/22 1553 [employer] Other XR ankle RT min 3V* Signed By: [employer] Other XR ankle RT min 3V* 01/06/221553 No rt [employer] Other Progress Noteson 12-04-2021 Curing Room Supervisor Authentication Interface Message Text Normal [facility] Curing Room Supervisor Authentication Interface Message Text ----- Saturday, December 04, 2021 at 11:22:04 AM ----- ----- Provider: [id number] Thomas -- Clinic: [place] ----- [facility], Pt is ready for tx. Pt presented with caries Radiograph taken today: none Discussed the medical necessity of the problem with the pt. Instructions given to pt. Caregiver understood the situation and is okay with medications for today. Pt will come back should things get worse. Guardianship: PARENTS - Baldom[employer] walker Zaragoza (Kerri Lei [address] [place] [address] / Email: [email or web address] Communicated with caregiver that the pt was placed on the OR list and we will call with appt. Limited exam completed by Dr. Noel STEPHENS. OR ----- Signed on Saturday, December 04, 2021 at 11:51:43 AM ----- ----- Provider: [id number] Myers DDS -- Clinic: [place] ----- Normal [facility] XR ankle RT min 3V*on 2021 XR ankle RT min 3V* [facility] Main [address] [address] XRay Report Signed Patient: Alethea Lei MR#: [id number] : 1970 Acct:[id number] Age/Sex: 51 / M ADM Date: 11/22/21 Loc: [facility] Room: Type: REG CLI Attending Dr: Cj [...] Impression dictated by: Panda De Guzman Jr., Rubia11/22/2021 2:39 PM Dictation Location: [place] [address] Transcribed By: [facility] 11/22/21 1439 Dictated By: Panda De Guzman Jr, DO 11/22/21 1438 Signed By: 11/22/21 1439 Normal [facility] XR ankle RT min 3V*on 2021 XR ankle RT min 3V* [facility] Main [address] [address] XRay Report Signed Patient: Alethea Lei MR#: [id number] : 1970 Acct:[id number] Age/Sex: 51 / M ADM Date: 10/16/21 Loc: [facility] Room: Type: REG CLI Attending Dr: Cj [...] Impression dictated by: Panda De Guzman Jr., MunaOCarol10/16/2021 1:10 PM Dictation Location: [place] [address] Transcribed By: [facility] 10/16/21 1310 Dictated By: Panda De Guzman Jr, DO 10/16/21 1307 Signed By: 10/16/21 1310 Normal [facility] XR ankle RT min 3V* [facility] [employer] Other XR ankle RT min 3V* [facility] Main [facility] Other XR ankle RT min 3V* [address] [place] [address] [facility] Other XR ankle RT min 3V* [place] [address] [facility] Other XR ankle RT min 3V* XRay Report Nort [employer] Other XR ankle RT min 3V* Signed [facility] Other XR ankle RT min 3V* Patient: Alethea Lei MR#: [id number] [facility] Other XR ankle RT min 3V* : 1970 Acct:[id number] [facility] Other XR ankle RT min 3V* Age/Sex: 51 / M ADM Date: 10/16/21 [facility] Other XR ankle RT min 3V* Loc: [facility] Room: Type: REG CLI [facility] Other XR ankle RT min 3V* Attending Dr: Cj Gayle DO [facility] Other XR ankle RT min 3V* Copies to: Cj Gayle, [facility] Other XR ankle RT min 3V* Ordering Provider: Cj Gayle DO [facility] Other XR ankle RT min 3V* Date of Service: 10/16/21 [facility] Other XR ankle RT min 3V* XR/XR ankle RT min 3V*: Displaced fracture of lateral malleolus of right [facility] Other XR ankle RT min 3V* fibula, sub [facility] Tyba Other XR ankle RT min 3V* RIGHT ANKLE - 3 views [facility] Other XR ankle RT min 3V* CLINICAL HISTORY: ORIF right lateral malleolus fracture. Follow up [facility] Other XR ankle RT min 3V* COMPARISON: Intraoperative study 09/24/2021 [facility] Other XR ankle RT min 3V* FINDINGS: [facility] Other XR ankle RT min 3V* syndesmotic screw without evidence of hardware complication. Fracture line is still evident [facility] Other XR ankle RT min 3V* suggestive of incomplete healing. Medial malleolar fracture is unchanged.. Soft tissue swelling. [facility] Other XR ankle RT min 3V* Plantar spurring. [facility] Other XR ankle RT min 3V* XR/XR ankle RT min 3V* [employer] Other XR ankle RT min 3V* IMPRESSION: [facility] Other XR ankle RT min 3V* NO EVIDENCE OF HARDWARE COMPLICATION. [facility] Other XR ankle RT min 3V* Impression dictated by: Panda De Guzman Jr., D.O.10/16/2021 1:10 PM [facility] Other XR ankle RT min 3V* Dictation Location: [facility]- [facility] Other XR ankle RT min 3V* Transcribed By: PWS 10/16/21 1310 [facility] Other XR ankle RT min 3V* Dictated By: Panda De Guzman Jr, DO 10/16/21 1307 [facility] Other XR ankle RT min 3V* Signed By: [facility] Other XR ankle RT min 3V* 10/16/21 1310 No rt [employer] Other ECG 12 lead ECGon 09-24-2021 ECG 12 lead ECG [facility] Main [place] [address] [place] [address] Electrocardiograph Report Signed Patient: Alethea Lei MR#: [id number] : 1970 Acct:[id number] Age/Sex: 51 / M ADM Date: 09/24/21 Loc: [place] Room: Type: [facility] Attending Dr: Cj Gayle DO Ordering Provider: [...] MUS Signed By Zafar Spicer DO 09/24 1909 [facility] XR ankle RT min 3V*on 2021 XR ankle RT min 3V* [facility] Main [place] [address] [place] [address] XRay Report Signed Patient: Alethea Lei MR#: [id number] : 1970 Acct:[id number] Age/Sex: 51 / M ADM Date: 09/24/21 Loc: [place] Room: Type: [facility] Attending Dr: Cj Gayle DO Copies to: [...] 3V* IMPRESSION: Intraoperative study. Impression dictated by: Muna Cee Jr.OCarol09/24/2021 4:10 PM Dictation Location: [place] [address] Transcribed By: [facility] 09/24/21 1610 Dictated By: Panda De Guzman Jr, DO 09/24/21 1609 Signed By: 09/24/21 1610 [facility] SARS-CoV-2 (COVID-19) RNA GARY+probe Ql (Unsp spec) Negative Normal Negative [facility] Comment on above: Order Comment: Comme nt OR 09/24/21 Healthcare Worker?: N Result Comment: Testing for SARS-CoV-2 by RT-PCR This test was developed and its performance characteristics determined by [employer] ([employer]) and validated at the [facility]. This test has not been FDA [...] is terminated or revoked sooner. PERFORMED BY: [place] [id number] PATHOLOGIST BOAT RENTAL CLERK CHRISTINE FERNÁNDEZ M.D. Performed By: #### C OVID 19 [facility] #### [address] COVID-19 Positive/NegativeOr dered By: Cj Gayle on 09-23-2021 SARS-CoV-2 (COVID-19) N gene GARY+probe Ql (Resp) Negative Negative [facility] Comment on above: Testing for SARS-CoV -2 by RT-PCR This test was developed and its performance characteristics determined by [employer] ([employer]) and validated at the [facility]. This test has not been FDA [...] BASO # 0.0 103/ul Normal 0.0-0.1 [facility] Comment on above: Performed By: #### C BC ####[facility] [address] [place] [address]Dr. Guille Mayo Basophils/100 WBC (Bld) 0.2 % Normal 0.2-2.0 [facility] Comment on above: Performed By: #### C BC ####[facility] B[address]xx[address]we[address] [place] [address]Dr. Guille Mayo EO # 0.1 103/ul Normal 0.0-0.7 [facility] Comment on above: Performed By: #### C BC ####[facility] [address] [place], [place] [address]Dr. Guille Mayo Eosinophils/100 WBC (Bld) 1.2 % Normal 0.9-7.0 [facility] Comment on above: Performed By: #### C BC ####[facility] [address] [place], [place] [address]Dr. Guille Mayo Erythrocyte distribution width (RBC) [Ratio] 12.2 % Normal 11.0-15.0 [facility] Comment on above: Performed By: #### C BC ####[facility] [address] [place], [place] [address]Dr. Guille Mayo Hematocrit (Bld) [Volume fraction] 38.0 % Critically low 42.0-54.0 [facility] Comment on above: Performed By: #### C BC ####[facility] [address] [place], [place] [address]Dr. Guille Mayo Hemoglobin (Bld) [Mass/Vol] 12.8 g/dL Critically low 14.0-18.0 [facility] Comment on above: Performed By: #### C BC ####[facility] [address] [place], [place] [address]Dr. Guille Mayo IG # 0.03 10e3/ul Normal 0.00-0.03 [facility] Comment on above: Performed By: #### C BC ####[facility] [address] [place], [place] [address]Dr. Guille Mayo IG % 0.4 % Normal 0.0-0.5 [facility] Comment on above: Performed By: #### C BC ####[facility] [address]fcon[address] [place] [address]Dr. Guille Gael LYMPH # 0.9 103/ul Critically low 1.2-3.8 [facility] Comment on above: Performed By: #### C BC ####[facility] Kmftoilqhd[address] [place] [address]Dr. Guille Gael Lymphocytes/100 WBC (Bld) 10.7 % Critically low 20.5-60.0 [facility] Comment on above: Performed By: #### C BC ####[facility] Xjvgvlibzm[address] [place] [address]Dr. Kylahizzy Mayo MANUAL DIFF REQ NO Normal [facility] Comment on above: Performed By: #### C BC ####[facility] Peylvncbgx[address] [place] [address]Dr. Guille Gael MCH (RBC) [Entitic mass] 32.2 pg Normal 25.9-34.0 [facility] Comment on above: Performed By: #### C BC ####[facility] [address]ug[address]cs[address] [place] [address]Dr. Guille Mayo MCHC (RBC) [Mass/Vol] 33.7 g/dL Normal 29.9-35.2 [facility] Comment on above: Performed By: #### C BC ####[facility] Rjzgotyzzd[address] [place] [address]Dr. Guille Mayo MCV (RBC) [Entitic vol] 95.7 fL Critically high 80.0-94.0 [facility] Comment on above: Performed By: #### C BC ####[facility] Sx[address]obbo[address] [place] [address]Dr. Guille Gael MONO # 0.7 103/ul Normal 0.3-0.8 [facility] Comment on above: Performed By: #### C BC ####[facility] [address]ieskhauym[address] [place] [address]Dr. Guille Mayo Monocytes/100 WBC (Bld) 9.0 % Normal 1.7-12.0 [facility] Comment on above: Performed By: #### C BC ####[facility] [address]wrjq[address] [place], [place] [address]Cr. Guille Mayo NEUT # 6.4 103/ul Normal 1.4-6.5 [facility] Comment on above: Performed By: #### C BC ####[facility] Y[address]xleszcil[address] [place], [place] [address]Yw. Guille Mayo Neutrophils/100 WBC (Bld) 78.5 % Critically high 43.0-75.0 [facility] Comment on above: Performed By: #### C BC ####[facility] Zqfsdylwit[address] [place] [address]Dr. Guille Mayo Platelet mean volume (Bld) [Entitic vol] 9.9 fL Normal 9.5-13.5 [facility] Comment on above: Performed By: #### C BC ####[facility] Aozxy[address]exhs[address] [place] [address]Dr. Guille Mayo PLT 152 103/ul Normal 150-450 [facility] Comment on above: Performed By: #### C BC ####[facility] Uujebokdbl[address] [place] [address]Dr. Guille Mayo RBC 3.97 106/ul Critically low 4.70-6.10 [facility] Comment on above: Performed By: #### C BC ####[facility] Rcdrfpeusu[address] [place] [address]Dr. Guille Mayo WBC 8.1 103/ul Normal 4.0-11.0 [facility] Comment on above: Performed By: #### C BC ####[facility] [address] [place], [place] [address]Dr. Guille Mayo CT HEAD WO CONon 09-18-2021 [...] SANDY DÍAZ Date: 2021-09-18 15:44 Normal [facility] Covid-19 PCR (CVDTBH)on 08-24 SARS-CoV-2 (COVID-19) RNA GARY+probe Ql (Unsp spec) Not detected Normal NOT DETECTED [facility] Comment on above: Result Comment: When [...] for this test is supported by the [place] of Health and Human Service's declaration that [...] be used). Performed By: #### C VDTBH ####[facility] [address] [place] [address]DrCarol Mayo PROF CHEM 8 (BAS METB)on Anion gap [Moles/Vol] 12.4 mmol/L Normal [place] Comment on above: Performed By: #### B MP ####[facility] [address] [place], [place] [address]DvCarol Mayo Calcium [Mass/Vol] 8.7 mg/dL Normal 8.5-10.1 [facility] Comment on above: Performed By: #### B MP ####[facility] Tf[address] [place] [address]Dr. Guille Mayo Chloride [Moles/Vol] 107 mmol/L Normal 98-107 [facility] Comment on above: Performed By: #### B MP ####[facility] [address] [place] [address]Dr. Guille Mayo CO2 [Moles/Vol] 28.0 mmol/L Normal 21.0-32.0 [facility] Comment on above: Performed By: #### B MP ####[facility] K[address]iz[address] [place] [address]Dr. Guille Mayo Creatinine [Mass/Vol] 1.45 mg/dL Critically high 0.70-1.30 [facility] Comment on above: Performed By: #### B MP ####[facility] Ltumtlugsm[address] [place] [address]Dr. Guille Gael EGFR-AF AUSTRALIAN >60 Normal >=60 [facility] Comment on above: Performed By: #### B MP ####[facility] Nkxmxy[address]gsb[address] [place] [address]Dr. Guille Gael EGFR-NON AF AUSTRALIAN 51 mL/min/1.73m2 Critically low >=60 [facility] Comment on above: Performed By: #### B MP ####[facility] [address] [place] [address]Dr. Guille Mayo Glucose [Mass/Vol] 87 mg/dL Normal 74-106 [facility] Comment on above: Performed By: #### B MP ####[facility] Hyryruxxhp[address] [place] [address]Dr. Guille Mayo Potassium [Moles/Vol] 4.4 mmol/L Normal 3.5-5.1 [facility] Comment on above: Performed By: #### B MP ####[facility] [address]rem[address] [place] [address]Dr. Kylahizzy Mayo Sodium [Moles/Vol] 143 mmol/L Normal 136-145 [facility] Comment on above: Performed By: #### B MP ####[facility] L[address]vlokfcvr[address] [place], [place] [address]Ya. Guille Mayo Urea nitrogen [Mass/Vol] 24.0 mg/dL Critically high 7.0-18.0 [facility] Comment on above: Performed By: #### B MP ####[facility] Xvpkqmibms9334 [place], [place] [address]Zt. Guille Mayo Urea nitrogen/Creatinine [Mass ratio] 16.6 mg/mg Normal [facility] Comment on above: Performed By: #### B MP ####[facility] Ff[address]upuahq5[address] [place], [place] [address]Ve. Guille Mayo XR CHEST 1 Von 09-18-2021 [...] SANDY DÍAZ Date: 2021-09-18 15:36 Normal [facility] CT CHEST WO CONon 08-02-2021 CT [...] by: NORMA ROSS Date: 2021-08-02 08:52 Normal [facility] XR DEXA BONE DENSITYon [...] by: NORMA ROSS Date: 2021-07-31 16:14 Normal [facility] Anesthesia Attestationon Curing Room Supervisor Authentication Interface Message Text Anesthesia Attestation ATTESTATION OF INFORMED CONSENT FOR ANESTHESIA Anesthesia options were discussed with the patient and/or legal claims representative. The risks, benefits and alternatives were reviewed. Questions regarding anesthesia were answered. Patient and/or legal claims representative knows such anesthetics and procedures may be performed by Resident physicians, Certified Anesthesiologist Assistants, or Certified Nurse Anesthetists under the supervision of a physician. The patient /or the patient's legal claims representative agree with the plan for anesthesia. Normal [facility] Anesthesia Postprocedure Zo luationon 01-25-2021 Curing Room Supervisor Authentication Interface Message Text Anesthesia Postoperative Assessment: [...] ANESTHESIA COMPLICATIONS: No complications documented. Normal [facility] Anesthesia Transfer Of Careo n 01-25-2021 Curing Room Supervisor Authentication Interface Message Text Patient taken to [...] vaccines Basic Operating Room Facts: Surgeon(s): Simi Ewdards DDS Anesthesiologist: Jero Peralta MD Clinical Psychologist: Anson Schwartz MD DENTAL RESTORATIONS (Bilateral ) [...] was received. Anson Schwartz MD Normal [facility] Blood Attestationon 01-26-20 Curing Room Supervisor Authentication Interface Message Text Blood Attestation ATTESTATION OF INFORMED CONSENT FOR BLOOD The transfusion of blood and/or blood components were discussed with the patient and/or legal claims representative. The risks, benefits and alternatives were reviewed. Questions regarding blood transfusions were answered. The patient /or the patient's legal claims representative agree with the plan for transfusion of blood and/or blood components. 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 Procedures: Full mouth X-ray 48990 Exam 46800 Cleaning 06241 Yarsani 96740 Fluoride 06905 Excisional biopsy 08772 No data filed Surgeon(s): Surgeon(s): Simi Edwards DDS Staff: Axle Polisher Nurse: Deborah Chapman RN; Crystal Anderson RN Word Processing Operator: Carolyn López DDS Anesthesia: General Anesthesiologist: Jero Peralta MD Clinical Psychologist: Anson Schwartz MD Specimen(s): ID Type Source [...] López DDS 01/25/2021 12:11 PM Normal [facility] OP Noteon 01-25-2021 Curing Room Supervisor Authentication Interface Message Text Surgical Case Number Data Unavailable Operating Room Data Unavailable Preoperative Diagnosis(es): Dental caries [804498] Autism spectrum disorder F84.0 Moderate intellectual disability F79 Seizure disorder G40.89 Postoperative Diagnosis(es): Autism spectrum disorder F84.0 Moderate intellectual disability F79 Seizure disorder G40.89 Dental caries [319889] 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 gwruwqz-otqmguxpzi-n cellular pertussis (BOOSTRIX) 5-2.5-18.5 LF-MCG/0.5 injection Inject 0.5 mL into the muscle. Dictated by: Carolyn López DDS: Simi Joyner DDS was present for the critical portions of the procedure. 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 * sdbamlb-odiyopybvn-j cellular pertussis (BOOSTRIX) 5-2.5-18.5 LF-MCG/0.5 injection Inject 0.5 mL into the muscle. Dictated by: Carolyn López DDS: Simi Joyner DDS was present for the critical portions of the procedure. Carolyn López DDS 01/25/2021 12:18 PM Normal [facility] Anesthesia Preprocedure Eval justoon 01-24-2021 Curing Room Supervisor Authentication Interface Message Text ASA: 3 No [...] the history and physical examination. Normal [facility] Telephone Encounteron 2020 Curing Room Supervisor Authentication Interface Message Text Informed Consent for dental surgery AND Anesthesia consent obtained and scanned into [facility]. Scheduled for surgery 01/25/2021. Normal [facility] AUD - Progress Noteson 04-20 Protein mass conc Pt. referred for hearing evaluation by Dr. Espinoza, accompanied by Caitie, a direct care provider from [facility]. Pt. returns today after having ears cleaned out. Pt. denied ear pain at the time of testing. Completed evaluation, resorting to play audiometry for pure tone testing. See AUD-Assessments for Report/Results. DX CODES: H90.3 sensorineural hearing loss bilateral Normal [facility] Coding Summary.on 04-20-2018 Coding Summary. CODING DATE: 04/20/2018 FINAL [facility] STATUS: PAYOR: Medicare APC DESCRIPTION [id number] [...] CphT Date Saved: 04/20/2018 09:11 pm Normal [facility] AUD - Progress Noteson 03-31 Protein mass conc pt. referred for hearing evaluation by Muna Espinoza DO, accompanied by Darius direct care provider from [facility]. Otoscopy revealed cerumen in the right ear canal clocking view of the tympanic membrane, left ear with moderate cerumen but tympanic membrance visible. Discussed with Saurabh, did not complete evaluation today. He will return after bilateral ear cleaning. Called and spoke to [facility]/Nursing/Ainsley and advised her of the above. Normal [facility] Mohit 09-09-2016 Alanine aminotransferase (ALT) 35 U/L Normal <40 [facility] Soni 09-09-2016 Aspartate aminotransferase (AST) 26 U/L Normal 15-50 [facility] Albuminon 09-09-2016 Albumin 4.5 g/dL Normal 3.4-5.2 [facility] BUNon 09-09-2016 Urea nitrogen 21 mg/dL High 5-18 [facility] Creatinineon 09-09-2016 Creatinine 1.21 mg/dL High 0.50-1.20 [facility] Electrolyteson 09-09-2016 Chloride 107 mmol/L High 95-106 [facility] CO2 24 mmol/L Normal 24-35 [facility] Potassium molar conc 4.4 mmol/L Normal 3.7-5.3 [facility] Sodium 141 mmol/L Normal 135-145 [facility] Vital Signs Date Time Vital Sign Value Performing Clinician Facility 01-06-2022 12:30-0500 Body height 177.8 cm Cj Gayle Other [facility] Other 01-06-2022 12:30-0500 Body mass index (BMI) [Ratio] 27.69 kg/m2 Cj Gayle Other [facility] Other 01-06-2022 12:30-0500 Body weight 87.54 kg Cj Gayle Other [facility] Other 09-24-2021 17:03-0400 Diastolic blood pressure 100 mm[Hg] DO Go Espinoza Work Phone: [facility] 09-24-2021 17:03-0400 Heart rate 79 /min DO Go Espinoza Work Phone: [facility] 09-24-2021 17:03-0400 Respiratory rate 16 /min DO Go Espinoza Work Phone: [facility] 09-24-2021 17:03-0400 SaO2% (BldA) [Mass fraction] 94 % DO Go Espinoza Work Phone: [facility] 09-24-2021 17:03-0400 Systolic blood pressure 156 mm[Hg] DO Go Espinoza Work Phone: [facility] 09-24-2021 15:05-0400 Body temperature 97.1 [degF] DO Go Espinoza Work Phone: [facility] 09-24-2021 15:05-0400 Inhaled oxygen flow rate 6 L/min DO Go Espinoza Work Phone: [facility] 09-24-2021 14:22-0400 Body height 172.72 cm DO Go Espinoza Work Phone: [facility] 09-24-2021 14:22-0400 Body mass index (BMI) [Ratio] 29.6 kg/m2 DO Go Espinoza Work Phone: [facility] 09-24-2021 14:22-0400 Body weight 88.4 kg DO Go Espinoza Work Phone: [facility] 08-14-2021 10:45-0400 Body height 177.8 cm Nallely Parada Other [facility] Other 08-14-2021 10:45-0400 Body mass index (BMI) [Ratio] 27.55 kg/m2 Nallely Parada Other [facility] Other 08-14-2021 10:45-0400 Body temperature 97 [degF] Nallely Parada Other [facility] Other 08-14-2021 10:45-0400 Body weight 87.09 kg Nallely Parada Other [facility] Other 08-14-2021 10:45-0400 Diastolic blood pressure 84 mm[Hg] Nallely Parada Other [facility] Other 08-14-2021 10:45-0400 Respiratory rate 20 /min Nallely Parada Other [facility] Other 08-14-2021 10:45-0400 SaO2% (BldA) [Mass fraction] 98 % Nallely Parada Other [facility] Other 08-14-2021 10:45-0400 Systolic blood pressure 132 mm[Hg] Nallely Parada Other [facility] Other Encounters Encounter Date Encounter Type Care Provider Facility Start: 11-10-2023 End: 11-10-2023 ambulatory MEGAN TSE Facility:[facility] Start: 08-19-2023 End: 08-19-2023 Lab Drop off GO ESPINOZA [facility] Start: 08-19-2023 End: 08-19-2023 ambulatory GO ESPINOZA Facility:[facility] Start: 08-06-2023 End: 08-06-2023 ambulatory YADIRARadhames DE LA CRUZ Not Available Start: 05-12-2023 End: 05-12-2023 ambulatory SUMEET SWANSON Facility:[facility] Start: 02-25-2023 End: 02-25-2023 Lab Drop off GO ESPINOZA [facility] Start: 02-25-2023 End: 02-25-2023 ambulatory GO ESPINOZA Facility:[facility] Start: 02-05-2023 End: 02-05-2023 ambulatory PITER BROWN Not Available Start: 11-12-2022 End: 11-12-2022 ambulatory GO ESPINOZA Facility:[facility] Start: 11-12-2022 End: 11-12-2022 Lab Drop off GO ESPINOZA [facility] Start: 05-27-2022 End: 05-28-[address] GO ESPINOZA Facility:[facility] Start: 04-24-2022 Letter encounter Vadim patton Start: 04-11-2022 End: 04-12-[address] GO ESPINOZA Facility:[facility] Start: 04-10-2022 End: 04-11-[address] GO ESPINOZA Facility:[facility] Start: 04-09-2022 Telephone encounter Nallely Parada [facility] Start: 04-09-2022 End: 04-09-2022 ambulatory Go Espinoza Facility:[facility] Start: 03-12-2022 End: 03-12-2022 ambulatory Go Espinoza Facility:[facility] Start: 03-12-2022 End: 03-12-2022 ambulatory DO Go Espinoza Work Phone: [facility] [place] [facility] Work Phone: Start: 03-12-2022 End: 03-12-2022 Patient encounter procedure DO Go Espinoza Work Phone: [facility] [place] [facility] Work Phone: Start: 03-11-2022 End: 03-12-[address] GO ESPINOZA Facility: Start: 02-06-2022 End: 02-06-2022 ambulatory Nallely Kassynoemi Other [facility] Other Start: 02-06-2022 Telephone encounter Nallely Parada [facility] Start: 01-07-2022 End: 01-07-2022 ambulatory Cj Gayle Other [facility] Other Start: 01-07-2022 Telephone encounter Cj Gayle [facility] Start: 01-06-2022 Postop follow up vis it related to original px Cj Gayle [facility] Orthopedics Start: 01-06-2022 End: 01-06-2022 ambulatory jC Gayle Facility:[facility] Start: 01-06-2022 End: 01-06-2022 ambulatory DO Go Espinoza Work Phone: [facility] Work Phone: Start: 01-06-2022 End: 01-06-2022 Patient encounter procedure DO Go Espinoza Work Phone: [facility] Start: 12-04-2021 End: 12-06-2021 ambulatory UNKNOWN PROVIDER Facility:[facility] Start: 12-04-2021 End: 12-06-2021 Patient encounter procedure Ly Redmond RD Work Phone: [facility] Start: 11-22-2021 Postop follow up vis it related to original px Cj Gayle [facility] Start: 11-22-2021 End: 11-22-2021 ambulatory Cj Gayle [facility] [employer] Other Start: 11-22-2021 End: 11-22-2021 Patient encounter procedure DO Go Espinoza Work Phone: [facility] Start: 10-16-2021 Postop follow up vis it related to original px Cj Gayle [facility] Start: 10-16-2021 End: 10-16-2021 ambulatory Cj Gayle [facility] [employer] Other Start: 10-16-2021 End: 10-16-2021 Patient encounter procedure DO Go Espinoza Work Phone: [facility] Start: 09-24-2021 End: 09-24-2021 ambulatory Cj Gayle Facility:[facility] Start: 09-24-2021 End: 09-24-2021 Admission to same day surgery center DO Go Espinoza Work Phone: [facility] [place] Start: 09-23-2021 End: 09-23-2021 ambulatory Cj Gayle Facility:[facility] Start: 09-23-2021 End: 09-23-2021 Patient encounter procedure DO Go Espinoza Work Phone: [facility] Start: 09-18-2021 End: 09-18-2021 ambulatory TRAN MORALEZ . Facility:[facility] Start: 08-14-2021 End: 08-14-2021 ambulatory Nallely Parada Other [place] [employer] Other Start: 08-14-2021 Office outpatient ne w 45 minutes Nallely Parada [facility] Start: 08-01-2021 End: 08-02-[address] GO ESPINOZA Facility:[facility] Start: 07-31-2021 End: 08-01-[address] GO ESPINOZA Facility: Start: 01-25-2021 End: 01-26-2021 ambulatory SIMI MEADOWS Facility:[facility] Start: 01-25-2021 ambulatory UNKNOWN [facility] Start: 09-09-2016 End: 09-09-[address] [facility] Procedures Date Procedure Procedure Detail Performing [...] Start: 11-23-2021 Influenza vaccination Influ[facility]ine (#[facility] Start: 10-16-2021 X-ray of right ankle XR ankle RT min 3V* [facility] Start: 10-16-2021 End: 10-16-2021 Patient encounter procedure Departed Clinical [facility] Start: 09-24-2021 [facility] Work Phone: Start: 09-24-2021 [facility] Work Phone: Start: 08-21-2021 COVID-19 Vaccine (5 - Booster for Pfizer series) COVID-19 Vaccine (5 - Booster for Pfizer series) [facility] Start: 01-10-2018 Measurement of occult blood in single stool specimen FIT [facility] Start: 01-10-2018 Screening for malignant neoplasm of colon CRC Screening [facility] Start: 01-10-2018 Shingles (RZV) Vaccine (1 of 2) Shingles (RZV) Vaccine (1 of 2) [facility] Start: 01-10-2013 Screening for malignant neoplasm of colon [facility] Start: 01-10-2003 Lipid panel Cholesterol [facility] Start: 02-23-1997 Annual wellness visit [facility] Well[id number] Start: 01-10-1986 Hepatitis C screening Hepatitis C Antibody [facility] Start: 01-10-1986 Tetanus + diphtheria + acellular pertussis vaccine (product) Tdap Booster [facility] Start: 01-10-1983 HIV screening HIV Test [facility] Start: 1968 Screening for malignant neoplasm of colon Colonoscopy [facility] Patient referral [facility] Work Phone: Immunizations Immunization Date Immunization Notes Care Provider Zeb bruno 06-26-2021 Pfizer (12+ yrs) SARS-COV-2 (COVID-19) vaccine, mRNA, spike protein, LNP, pres. free, 30 mcg/0.3mL dose, syeda-sucrose (HMS=995) Ly Ruy RDH Work Phone: [facility] 12-19-2020 COVID-19 Vaccine Pfi zer - Documentation Purposes Only [employer] Other [employer] Other 12-19-2020 influenza, injectabl e, quadrivalent, preservative free Ly Ury RDH Work Phone: [facility] 12-19-2020 influenza virus vaccine, unspecified formulation Ly Ruy RDH Work Phone: [facility] 03-27-2020 COVID-19 Vaccine Pfi zer - Documentation Purposes Only Nallely Elenanoemi Other [employer] Other 03-06-2020 COVID-19 Vaccine Pfi zer - Documentation Purposes Only Nallely Elenanoemi Other [employer] Other 11-30-2019 influenza, injectabl e, quadrivalent, preservative free Ly Ruy RDH Work Phone: [facility] 12-17-2018 influenza, injectabl e, quadrivalent, preservative free Ly Ruy RDH Work Phone: [facility] 12-02-2017 influenza, injectabl e, quadrivalent, preservative free Ly Ruy RDH Work Phone: [facility] 01-06-2017 influenza, injectabl e, quadrivalent, contains preservative Ly Ruy RDH Work Phone: [facility] 07-12-2015 tetanus and diphther ia toxoids, adsorbed, preservative free, for adult use (5 Lf of tetanus toxoid and 2 Lf of diphtheria toxoid) Ly Ruy RD Work Phone: [facility] 12-14-2014 influenza, injectabl e, quadrivalent, preservative free Ly Ruy RD Work Phone: [facility] 01-10-2009 novel [id number], preservative-free, injectable Ly Ruy RD Work Phone: [facility] 01-07-2008 influenza virus vaccine, whole virus Ly Ruy RD Work Phone: [facility] 12-08-2006 influenza virus vaccine, whole virus Ly Ruy RD Work Phone: [facility] 06-25-2005 tetanus and diphther ia toxoids, adsorbed, preservative free, for adult use (5 Lf of tetanus toxoid and 2 Lf of diphtheria toxoid) Ly Ruy RD Work Phone: [facility] diphtheria, tetanus toxoids and acellular pertussis vaccine, unspecified formulation Ly Ruy RD Work Phone: [facility] Payers Date Payer Category Payer Self-pay [id number] 2019 Medicaid [id number] 1996 Medicare MEDICARE MEDICAR E PART A & B [id number] 1996-Present [address] [place] [address] Medicare [id number] 1968 Unknown [id number] 2.16.840.1.222874.3.579.2.732 1968 Unknown [id number] 2.16.840.1.126826.3.579.2.732 1968 Unknown [id number] 2.16.840.1.266495.3.579.2.732 1968 Unknown [id number] 2.16.840.1.117028.3.579.2.593 1968 Unknown [id number] 2.16.840.1.767627.3.579.2.593 1968 Unknown [id number] 2.16.840.1.325094.3.579.2.593 1968 Unknown [id number] 2.16.840.1.189418.3.579.2.593 1968 Unknown [id number] 2.16.840.1.631575.3.579.2.1259 1968 Unknown [id number] 2.16.840.1.368287.3.579.2.1259 1968 Unknown [id number] 2.16.840.1.043875.3.579.2.727 1968 Unknown [id number] 2.16.840.1.417352.3.579.2.727 1968 Unknown [id number] 2.16.840.1.586311.3.579.2.727 1959 Medicaid [id number] 2.16.840.1.752983.19 1961 Medicare [id number] 2.16.840.1.986726.19 Medicare [id number] Unknown [employer] [id number] Unknown [id number] 2.16.840.1.783677.3.579.2.531 Unknown [id number] 2.16.840.1.845617.3.579.2.531 Unknown [id number] 2.16.840.1.523145.3.579.2.531 Unknown [id number] 2.16.840.1.384631.3.579.2.531 Unknown [id number] 2.16.840.1.883376.3.579.2.531 Unknown [id number] 2.16.840.1.696408.3.579.2.531 Unknown [id number] 2.16.840.1.127891.3.579.2.531 Unknown [id number] 2.16.840.1.033518.3.579.2.593 Unknown [id number] 2.16.840.1.671360.3.579.2.593 Unknown [id number] 2.16.840.1.920003.3.579.2.593 Social History Date Type Detail Facility Sex Assigned At [facility] Start: 09-24-2021 End: 09-24-2021 Tobacco smoking status MTIS Never smoked tobacco (finding) [facility] Start: 1970 Sex Assigned At Male F [facility] Tobacco smoking status [facility] Tobacco smoking consumption unknown [facility] Start: 1970 Sex Assigned At Not on file M [facility] Tobacco smoking status No Smoking Status Entered [facility] Medical Equipment Procedure Code Equipment Code Equipment Origin al Text Equipment Identifier Dates ORIF, fracture, ankle CANCELLOUS COARSE 7.5CC FDA Start: 09-24-2021 ORIF, fracture, ankle Orthopaedic bone screw, non-bioabsorbable, non-sterile ()[id number] FDA Start: 09-24-2021 ORIF, fracture, ankle Orthopaedic bone screw, non-bioabsorbable, non-sterile ()[id number] FDA Start: 09-24-2021 ORIF, fracture, ankle Orthopaedic fixation plate, non-bioabsorbable, sterile ()[id number] FDA Start: 09-24-2021 ORIF, fracture, ankle Orthopaedic bone screw, non-bioabsorbable, non-sterile ()[id number] FDA Start: 09-24-2021 ORIF, fracture, ankle Orthopaedic bone screw, non-bioabsorbable, non-sterile ()[id number] FDA Start: 09-24-2021 ORIF, fracture, ankle Orthopaedic bone screw, non-bioabsorbable, non-sterile ()[id number] FDA Start: 09-24-2021 ORIF, fracture, ankle Orthopaedic bone screw, non-bioabsorbable, non-sterile ()[id number] FDA Start: 09-24-2021 ORIF, fracture, ankle CANCELLOUS COARSE 7.5CC FDA Start: 09-24-2021 ORIF, fracture, ankle CANCELLOUS COARSE 7.5CC FDA Start: 09-24-2021 ORIF, fracture, ankle CANCELLOUS COARSE 7.5CC FDA Start: 09-24-2021 ORIF, fracture, ankle CANCELLOUS COARSE 7.5CC FDA Start: 09-24-2021 Goals Date Patient Goal Desired Activity /State Clinical Notes 01-10-2021 to 11-10-2023 Note Date & Type Note Facility 11-10-2023 Note HNO ID: [id number] Author: SUMEET CALI MD Service: ? Author Type: Physician Type: Progress Notes Filed: 11/10/2023 17:05 Note Text: FOLLOW UP - PSYCHIATRIC PROGRESS [...] visit. Either the patient or their legal claims representative has been informed of the risks [...] regimen of paroxetine, haloperidol, clonidine, Cogentin. Today, patient was seen with mother and care providers. Mother reports he has been doing well and behaviors have been appropriate. Notes that his mood has been good. Care providers agree. They state he is doing well. They have limited concerns. They note he has had some random and sudden falls (which they worry may be seizures.) Patient has been seen by his epileptologist. They also note he has been started on new blood pressure medication. Patient was seen smiling. Noted he was drawing pictures for his mother. Reports that he must wear his seatbeat so his mother does not cry . Discussed an EKG. Nursing staff request it faxed to them. Fax number: [phone] (direct fax). Risks and benefits of the medication, including any black box warnings, were discussed with the patient. Interval Progress: Same PATIENT DATA: Generalized Anxiety Disorder Scale (PETER-7) 05/12/2023 11/10/2023 PETER - 7 SCORES Score 3 3 (0-4) minimal anxiety, (5-9) mild anxiety, (10-14) moderate anxiety, (15-21) severe anxiety Patient Health Questionnaire (PHQ-9) 01/19/2023 05/12/2023 11/10/2023 PHQ-9 Score 0 0 4 6 (0-4) minimal depression, (5-9) mild depression, (10-14) moderate depression, (15-19) moderately severe depression, (20-27) severe depression PROMIS Global Health 01/19/2023 05/12/2023 11/10/2023 PROMIS Global Health - (T-Scores - the mean of general population = 50. Five points is a clinically meaningful difference.) Physical T-Score 50.8 50.8 50.8 44.9 Mental T-Score 41.1 41.1 43.5 38.8 Generalized Anxiety Disorder Scale (PETER-7) 05/12/2023 11/10/2023 PETER - 7 SCORES Score 3 3 (0-4) minimal anxiety, (5-9) mild anxiety, (10-14) moderate anxiety, (15-21) severe anxiety Calin Cognitive Assessment (MoCA) No data to display Score of 26 or above considered normal 18-25 =mild cognitive impairment, 10-17 = moderate cognitive impairment, <10 = severe cognitive impairment Patient Health Questionnaire (PHQ-9) 01/19/2023 05/12/2023 11/10/2023 PHQ-9 Score 0 0 4 6 (0-4) minimal depression, (5-9) mild depression, (10-14) moderate depression, (15-19) moderately severe depression, (20-27) severe depression PROMIS Global Health 01/19/2023 05/12/2023 11/10/2023 PROMIS Global Health - (T-Scores - the mean of general population = 50. Five points is a clinically meaningful difference.) Physical T-Score 50.8 50.8 50.8 44.9 Mental T-Score 41.1 41.1 43.5 38.8 PAST MEDICAL HISTORY Diagnosis Date Fracture Hypertension [...] evening, and 3 tablets at bedtime 0 qabyhxt-wiqxjpqdr-grdhezj D3 (OYSTER SHELL CALCIUM-VITAMIN D) 500 mg(1,250mg) [...] tablets by mouth once daily. cloNIDine 0.1 (more content not included)... [facility] 08-19-2023 Evaluation + Plan note Diagnostic Tests YppouywBcgG2e 08/19/23T3 Free 08/19/23Keppra Lvl 08/19/23Lamotrigine Level 08/19/23 [facility] 05-12-2023 Note HNO ID: [id number] Author: SUMEET CAIL MD Service: ? Author Type: Physician Type: [...] visit. Either the patient or their legal claims representative has been informed of the risks [...] Today, is seen with care team and [place] . His mother is also present virtually. [...] anxiety, (10-14) moderate anxiety, (15-21) severe anxiety Calin Cognitive Assessment (MoCA) No data to display [...] evening, and 3 tablets at bedtime 0 hltpgpp-xfhaguchd-jjreafk D3 (OYSTER SHELL CALCIUM-VITAMIN D) 500 mg(1,250mg) [...] PO tid 0 (more content not included)... [facility] 02-25-2023 Evaluation + Plan note Diagnostic Tests PendingT3 Free 02/25/23 [facility] 11-12-2022 Evaluation + Plan note Diagnostic Tests PendingPSA Screen, Total 11/12/22 [facility] 01-06-2022 Evaluation note Encounter Date Diagnosis Assessment Notes Dec, Displaced fracture of lateral malleolus of right fibula, subsequent encounter for closed fracture with routine healing (ICD-10 - S82.61XD) Alehtea is here today for follow-up about 12 weeks s/p right ankle ORIF. He is doing well. He is currently residing at [facility]. There is no complaints overall. Ankle is [...] Other specified postprocedural states (ICD-10 - Z98.890) [employer] Other 10-12-2022 History of Present illness Narrative* Simi Edwards DDS - 12/04/2021 11:03 AM EDT ----- Saturday, December 04, 2021 at 11:22:04 AM ----- ----- Provider: [id number] Thomas -- Clinic: [place] ----- [facility], Pt is ready for tx. Pt presented with caries Radiograph taken today: none Discussed the medical necessity of the problem with the pt. Instructions given to pt. Caregiver understood the situation and is okay with medications for today. Pt will come back shouldthings get worse. Guardianship: PARENTS - [place] [id number] / Email: [email or web address] Communicated with caregiver that the pt was placed on the OR list and we will call with appt. Limited exam completed by Dr. Noel STEPHENS. OR ----- Signed on Saturday, December 04, 2021 at 11:51:43 AM ----- ----- Provider: [id number] Tucker Myers DDS -- Clinic: [place] ----- documented in this [id number] Evaluation note* Encounter Date Diagnosis Assessment Notes Treatment Notes Treatment Clinical Notes Oct, Displaced fracture of lateral malleolus of right fibula, subsequent encounter for closed fracture with routine healing (ICD-10 - S82.61XD) Alethea is here today for first follow-up 8 weeks s/p right ankle ORIF. He is doing well. He is currently residing at [facility]. There is no complaints overall. His incision [...] fracture with routine healing (ICD-10 - S82.392D) [employer] Other 08-24-2022 Evaluation note* Encounter Date Diagnosis Assessment Notes Treatment Notes Treatment Clinical Notes Sep, Displaced fracture of lateral malleolus of right fibula, subsequent encounter for closed fracture with routine healing (ICD-10 - S82.61XD) Alethea is here today for first follow-up 3 weeks s/p right ankle ORIF. He is doing well. He is currently residing at [facility]. There is no complaints overall. His incision [...] as documented in the electronic medical record. [employer] Other 08-24-2022 NoteCast material is in place limiting evaluation. Hardware fixation involving the distal fibula [employer]ort [employer] Other 07-27-2022 NotePROCEDURE: XR TIB_FIB RT 2V [...] Electronically authenticated by: SANDY DÍAZ Date: 2021-09-18 17:14[facility]07-27-2022 NotePROCEDURE: XR ANKLE RT [...] Electronically authenticated by: SANDY DÍAZ Date: 2021-09-18 16:44[id number] NotePROCEDURE: XR ANKLE LT MIN 3 V [...] Electronically authenticated by: SANDY DÍAZ Date: 2021-09-18 15:33[facility]06-22-2022 Evaluation note* Encounter Date Diagnosis Assessment Notes Treatment Notes Treatment Clinical Notes Jul, Pulmonary cavitary lesion (ICD-10 - J98.4) Jul, 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 I have personally seen and evaluated the patient, repeating narayanan portions. There is no significant interval change. Surgery is still indicated. Yes Consent reviewed and signed by patient/family: Yes Operative site verified and marked: site verified but not marked as not anatomically possible Carolyn López DDS 01/25/2021 9:50 AMThe [email or web address] NotePatient is vaccinated for COVID-19: Pfizer on 03/06/2020 AND 03/27/2020. Patient does not require pre-op COVID testing per current guidelines.[facility] SystemEvaluation noteNo assessment information availableHighland District Hospital Work Phone: Evaluation noteNo InformationNort [employer] Other History general Narrative - Reported* Type Description Date Medical History Unspecified intellectual disabil ities Medical History autism Medical History ADHD Medical History Seizure Disorder Medical History tuberous Sclerosis [employer] Other History general Narrative - Reported* Type Description Date Medical History Unspecified intellectual disabil ities Medical History autism Medical History ADHD Medical History Seizure Disorder Medical History tuberous Sclerosis Surgical History ORIF RT lateral malleolus fx Hospitalization History see above [employer] Other Hospital course Narrative No data available for this section [facility] No data available for this section [facility] No data available for this section [facility] Summary Purpose Family History No Family [...] section and content) DATE CREATED AUTHOR 08/19/2017 [facility] DATE CREATED AUTHOR AUTHOR'S ORGANIZ ATION 07/30/2018 [facility] DATE CREATED AUTHOR AUTHOR'S ORGANIZ ATION 12/15/2021 [facility] DATE CREATED AUTHOR AUTHOR'S ORGANIZ ATION 04/17/2022 [facility] DATE CREATED AUTHOR AUTHOR'S ORGANIZ ATION 06/01/2022 [facility] DATE CREATED AUTHOR AUTHOR'S ORGANIZ ATION [facility]20[facility] DATE CREATED AUTHOR AUTHOR'S ORGANIZ ATION 08/21/2023 [facility] DATE CREATED AUTHOR AUTHOR'S ORGANIZ ATION 08/22/2023 [facility] DATE CREATED AUTHOR AUTHOR'S ORGANIZ ATION 08/28/2023 [facility] DATE CREATED AUTHOR AUTHOR'S ORGANIZ ATION 09/10/2023 [facility] DATE CREATED AUTHOR AUTHOR'S ORGANIZ ATION 11/12/2023 [facility] REASON FOR VISIT (unrecogniz ed section [...] BE BASED ON THE PRIMARY CLINICAL RECORDS. [employer] provides no warranty or guarantee of the accuracy or completeness of information in this document.
== END 2023-11-17 12:45 | disposition home or self-care (01) ==
LOC: CARD 12:44
PROVIDERS: PCP Family Medicine; Visit Provider Family Medicine
DX: R53.1 Weakness (principal); I10 Essential (primary) hypertension; Z79.899 Other long term (current) drug therapy
CPT/HCPCS: 93005

== ENCOUNTER 2024-03-17 06:31 | Outpatient (OUT) | payer MEDICARE, MEDICAID, SELFPAY ==
--- OUTSIDE RECORDS SUMMARY | 2024-03-17 06:35 | XMS_ITS | CCD ---
Author Organization [facility] CliniSyar Care Team Providers Care Electric Lineman Name Role Phone Robbi PETERSEN Unavailable Unavailable ESPINOZA, GO A Unavailable Unavailable ESPINOZA, GO A Unavailable Unavailable Chaban, Kamal Unavailable Magdy Gaylein Unavailable Espinoza, DO Go A Primary Care Provider [phone] DO Cj Gayle A Attending Provider PROVIDER, UNKNOWN Attending Unavailable PROVIDER, UNKNOWN Admitting Unavailable PROVIDER, UNKNOWN Admitting Unavailable PROVIDER, UNKNOWN Attending Unavailable SIMI EDWARDS Admitting Unavailable SIMI EDWARDS Attending Unavailable SIMI EDWARDS Referring Unavailable Unavailable Primary Care Provider Unavailabl e Espinoza, DO Go A Primary Care Provider [phone] DO Cj Gayle A Attending Provider Espinoza DO Go A Primary Care Provider [phone] DO Cj Gayle A Attending Provider MD Nallely Parada Attending Provider [phone] Magdy Gaylein A Attending Unavailable Espinoza, Go A Primary [...] Kamal Attending Unavailable Chaban, Kamal Admitting Unavailable Nalini, Cj A Admitting Unavailable Espinoza, Go A Primary Care Unavailable Nalini, Cj A Attending Unavailable Nalini, Cj A Admitting Unavailable Espinoza, Go Velazquez Primary Care Unavailable Cj Gayle Attending Unavailable Unavailable Primary Care Provider Unavailnallely MORALEZ ., TRAN Admitting Unavailable KIRT ., TRAN Attending Unavailable ESPINOZA, DR GO Velazquez Primary Care Unavailable ZIEBER, DR SANDY Velez Consulting Unavailable SHEILA ., MARY Consulting Unavailable KIRT ., TRAN Consulting Unavailable ESPINOZA, DR GO Velazquez Primary Care Unavailable WEST, DR NORMA Medellin Consulting Unavailable ESPINOZA, DR GO Velazquez Admitting Unavailable ESPINOZA, DR GO Velazquez Attending Unavailable ESPINOZA, DR GO Velazquez Consulting Unavailable ESPINOZA, DR GO Velazquez Primary Care Unavailable ESPINOZA, DR GO Velazquez Admitting Unavailable ESPINOZA, DR GO Velazquez Attending Unavailable WEST, DR NORMA Medellin Consulting Unavailable ESPINOZA, DR GO Velazquez Consulting Unavailable ESPINOZA, DR GO Velazquez Consulting Unavailable ESPINOZA, DR GO Velazquez Primary Care Unavailable ESPINOZA, DR GO Velazquez Admitting Unavailable ESPINOZA, DR GO Velazquez Attending Unavailable JONAH MAJANO Consulting Unavailable ESPINOZA, DR GO Velazquez Consulting Unavailable ESPINOZA, DR GO Velazquez Primary Care Unavailable ESPINOZA, DR GO Velazquez Attending Unavailable ESPINOZA, DR GO Velazquez [place] Unavailable BROWNNORMA Consulting Unavailable ESPINOZA, DR GO Velazquez Consulting Unavailable ESPINOZA, DR GO Velazquez Primary Care Unavailable ESPINOZA, DR GO Velazquez Attending Unavailable ESPINOZA, DR GO Velazquez Admitting Unavailable ESPINOZA, DR GO Velazquez Attending Unavailable ESPINOZA, DR GO Velazquez [place] Unavailable WEST, DR NORMA Medellin Consulting Unavailable ESPINOZA, DR GO Velazquez Primary Care Unavailable ESPINOZA, DR GO Velazquez Consulting Unavailable ESPINOZAGO Primary Care Physician ESPINOZAGO Admitting Unavailable ESPINOZA, GO Attending Unavailable ESPINOZA, GO Attending Unavailable ESPINOZA, GO Admitting Unavailable ESPINOZA, GO Attending Unavailable ESPINOZA, GO Admitting Unavailable EPSINOZA, GO Attending Unavailable ESPINOZA, GO Admitting Unavailable MEGAN TSE Referring Unavailable SUMEET CALI Attending Unavailable ESPINOZAGO Primary Care Unavailab SUMEET Weiss Attending Unavailable ESPINOZAGO Primary Care Unavailab MEGAN Hanson Referring Unavailable Unallocated , Arnies Provider Primary Care [facility] Go Espinoza MD Primary Care Provider [phone] Sue Patrick DO Unavailable ANA MARIA HSU Attending Unavailable ANA MARIA HSU Attending Unavailable Allergies Allergy Classification Reported Allergen(s) Allergy Type Date of Onset Reaction(s) Facility (1 source) PERTUSSIS VACCINE,FLUID; Translations: [PERTUSSIS VACCINE,FLUID] Propensity to adverse reactions to drug (disorder) 7 [facility] Repository (12 sources) PERTUSSIS VACCINES; Translations: [PERTUSSIS VACCINES] Propensity to adverse reactions to drug (disorder) 8 Unknown [facility] Repository (1 source) Pertussis Vaccine Drug Allergy 3 The [facility] Repository (1 source) ARIPiprazole; Translations: [ARIPIPRAZOLE] Drug Allergy 8 [facility] Repository Medications Current Medications Medication Drug Class(es) Dates Sig (Normalized) Sig (Original) 8 hr acetaminophen 650 mg extended release oral tablet (8 sources) Start: 09-24-2021 take 650 mg by mouth every four to six hours Acetaminophen Active 650 MG PO EVERY 4-6 HOURS September 23, 2021 11:00pm acetaminophen (T ylenol) 325 MG tablet Take by mouth Active acetaminophen 325 mg / HYDROcodone bitartrate 5 mg oral tablet (5 sources) Opioid Agonist Start: 09-24-2021 take 1 tablet by mouth every four to six hours Hydrocodone-Acetaminophen Active 1 TAB PO EVERY 4-6 HOURS September 23, 2021 11:00pm alendronic acid 70 mg oral tablet (12 sources) Bisphosphonate Start: 09-24-2021 take 70 mg by mouth once daily Alendronate Active 70 MG PO Daily September 23, 2021 11:00pm Alendronate / Cholecalciferol (3 sources) Bisphosphonate, Vitamin D ALENDRONATE-CHOLECAL CIFEROL ORAL Take by mouth. Active ALENDRONATE-CHOL ECALCIFEROL ORAL Take by mouth. 0 Active amLODIPine 5 mg oral tablet (2 sources) Dihydropyridine Calcium Channel Deena Start: 02-03-2024 take 1 tablet by mouth once daily amLODIPine (Norvasc) 5 MG tablet Take 5 mg by mouth Daily 02/03/2024 Active aspirin 81 mg delayed release oral tablet (15 sources) Platelet Aggregation Inhibitor, Nonsteroidal Anti-inflammatory Drug Start: 09-24-2021 take 81 mg by mouth once daily Aspirin Active 81 MG PO Daily September 23, 2021 11:00pm Aspirin (ASPIR-8 1 ORAL) Take by mouth. Active take 1 tablet by mouth once cait y Aspir-Low 81 MG 1 tablet Orally Once a day Active Aspirin (ASPIR-8 1 ORAL) Take by mouth. 0 Active atorvastatin 40 mg oral tablet (18 sources) HMG-CoA Reductase Inhibitor Start: 09-24-2021 take 1 tablet by mouth in the morning atorvastatin (Lipitor) 40 MG tablet Take 40 mg by mouth in the morning. 01/27/2023 Active benztropine mesylate 1 mg oral tablet (18 sources) Anticholinergic, Antihistamine Start: 09-24-2021 take 1 mg by mouth once daily Benztropine Active 1 MG PO Daily September 23, 2021 11:00pm take 1 tablet by mouth twice mc ly benztropine (COGENTIN) 1 MG tablet Take 1 mg by mouth 2 times daily. Active Biotene Dry Mouth - (6 sources) Biotene Dry Mout h - as directed Mouth/Throat Active calcium carbonate 1250 mg / cholecalciferol 200 unt oral tablet (3 sources) Vitamin D Start: 01-27-2023 take 1 tablet by mouth in the morning, then take 1 tablet by mouth once at bedtime Calcium Carb-Cholecalciferol (Oyster Shell Calcium w/D) 500-5 MG-MCG tablet Take 1 tablet by mouth in the morning and 1 tablet before bedtime. 01/27/2023 Active cloNIDine hydrochloride 0.1 mg oral tablet (18 sources) Central alpha-2 Adrenergic Agonist Start: 09-24-2021 take 0.1 mg by mouth once daily Clonidine Hcl Active 0.1 MG PO Daily September 23, 2021 11:00pm take 1 tablet by mouth three amina es daily cloNIDine (Catapres) 0.1 MG tablet TAKE ONE TABLET BY MOUTH 3 TIMES DAILY CATAPRES Active cloNIDine HCl (C ATAPRES ORAL) Take by mouth. Active cloNIDine HCl (C ATAPRES ORAL) Take by mouth. 0 Active 1 ml denosumab 60 mg/ml prefilled syringe (3 sources) RANK Ligand Inhibitor Start: 07-07-2023 Prolia 60 MG/ML solution prefilled syringe 07/07/2023 Active Dentifrices (BIOTENE DRY MOUTH DENTAL) (3 sources) Dentifrices (BIO TENE DRY MOUTH DENTAL) by Dental route. Active Dentifrices (BIO TENE DRY MOUTH DENTAL) by Dental route. 0 Active docusate sodium 100 mg oral capsule (3 sources) take 1 capsule by mouth three times daily docusate sodium (Colace) 100 MG capsule TAKE ONE CAPSULE BY MOUTH 3 TIMES DAILY Active eucalyptol 0.92 mg/ml / menthol 0.42 mg/ml / methyl salicylate 0.6 mg/ml / thymol 0.64 mg/ml mouthwash (3 sources) Start: 01-28-20 23 Mouthwashes (Biotene Dry Mouth) liquid TWICE A DAY SWISH 15ML FOR 30 SEC THEN SPIT 01/27/2023 Active fluocinonide 0.5 mg/ml topical solution (3 sources) Corticosteroid Start: 03-10-19 24 fluocinonide (Lidex) 0.05 % external solution 03/10/2023 Active haloperidol 5 mg oral tablet (15 sources) Typical Antipsychotic Start: 09-25-19 22 take 5 mg by mouth once daily Haloperidol Active 5 MG PO Daily September 23, 2021 11:00pm take 3 tablets by mo uth in the morning, then take 2 tablets by mouth in the evening, then take 3 tablets by mouth at bedtime haloperidol (Haldol) 5 MG tablet TAKE 3 TABLETS BY MOUTH IN THE MORNING 2 TABLETS IN THE EVENING AND 3 TABLETS AT BEDTIME Active levETIRAcetam 500 mg oral tablet (3 sources) Start: 01-27-2023 take 1 tablet by mouth in the morning levETIRAcetam (Keppra) 500 MG tablet Take 1 tablet by mouth in the morning and 1 tablet before bedtime. 01/27/2023 Active levothyroxine sodium 0.175 mg oral tablet (20 sources) l-Thyrox ine Start: 01-27-2023 take 1 tablet by mouth before mealtime levothyroxine (Synthroid, Levoxyl) 175 MCG tablet Take 175 mcg by mouth in the morning. Take before meals. 01/27/2023 Active Start: 01-27-2023 take 1 tablet by elba th once daily levothyroxine (Synthroid, Levoxyl) 150 MCG tablet TAKE ONE TABLET BY MOUTH DAILY SYNTHROID 01/27/2023 Active Start: 09-24-2021 take 150 ug by mouth once cait y Levothyroxine Active 150 MCG PO Daily September [...] empty stomach Orally Once a day Active loratadine 10 mg disintegrating oral tablet (3 sources) take 1 tablet by mouth once daily loratadine (Claritin Reditabs) 10 MG disintegrating tablet Take 10 mg by mouth Daily Active LORazepam 1 mg oral tablet (2 sources) Benzodiazepine Start: LORazepam 1 MG as directed before testing Orally once for 1 days Jan, Active losartan potassium 100 mg oral tablet (3 sources) Angiotensin 2 Receptor Deena Start: 023 take 1 tablet by mouth at bedtime losartan (Cozaar) 100 MG tablet Take 100 mg by mouth at bedtime 01/27/2023 Active Start: 01-27-2023 take 1 tablet by elba th at bedtime losartan (Cozaar) 50 MG tablet Take 50 mg by mouth at bedtime 01/27/2023 Active meloxicam 15 mg oral tablet (3 sources) Nonsteroidal Anti-inflammatory Drug Start: 01-27-2023 take 1 tablet by mouth once daily at bedtime meloxicam (Mobic) 15 MG tablet TAKE ONE TABLET BY MOUTH DAILY AT BEDTIME MOBIC 01/27/2023 Active Multiple Vitamin (Multivitamin) tablet (3 sources) Start: 01-27-2023 take 1 tablet by mouth in the morning Multiple Vitamin (Multivitamin) tablet Take 1 tablet by mouth in the morning. 01/27/2023 Active OXcarbazepine 600 mg oral tablet (18 sources) Anti-epileptic Agent Start: 09-24-2021 take 600 mg by mouth twice daily Oxcarbazepine Active 600 MG PO Twice daily September 23, 2021 11:00pm OXcarbazepine (T RILEPTAL ORAL) Take by mouth. Active OXcarbazepine (T RILEPTAL ORAL) Take by mouth. 0 Active PARoxetine hydrochloride 40 mg oral tablet (18 sources) Serotonin Reuptake Inhibitor Start: 09-24-2021 take 40 mg by mouth once daily Paroxetine Hcl Active 40 MG PO Daily September 23, 2021 11:00pm PARoxetine (Paxi l) 40 MG tablet Take 60 mg by mouth Daily Active Potassimin (7 sources) Potassimin Activ e potassium chloride 10 meq extended release oral capsule (11 sources) Start: 01-27-2023 take 1 capsule by mouth three times daily potassium chloride ER (Micro-K) 10 MEQ ER capsule TAKE ONE CAPSULE BY MOUTH 3 TIMES DAILY 01/27/2023 Active Start: 09-24-2021 take 10 mEq by mouth three times daily Potassium Chloride Active 10 MEQ PO Three times daily September 23, 2021 11:00pm take 1 tablet by elba th once daily potassium chloride SA (K-DUR) 10 MEQ controlled release tablet Take 10 mEq by mouth daily. Active Saliva Substitute Combo No.9 (Biotene Dry Mouth Oral Rinse) mouthwash (5 sources) Start: 09-24-2021 Saliva Substit [place] Combo No.9 (Biotene Dry Mouth Oral Rinse) mouthwash Active 5 ML PO As Directed September 23, 2021 11:00pm Start: 09-24-2021 Saliva Substit [place] Combo No.9 (Biotene Dry Mouth Oral Rinse) mouthwash Active 5 ML PO As Directed September 24, 2021 12:00am traMADol hydrochloride 50 mg oral tablet (8 sources) Opioid Agonist Start: 09-24-2021 take 50 mg by mouth every four hours Tramadol Active 50 MG PO Q4H 42 7 September 23, 2021 11:00pm triamcinolone acetonide 1 mg/ml topical cream (3 sources) Corticosteroid triamcinolone (Kenalog) 0.1 % cream Apply topically 2 (two) times a day Active Problems Active Problems Problem Classification Problem Date Documented Date Episodic/Chronic Attention-deficit, conduct, and disruptive behavior disorders (6 sources) Disruptive behavior disorder; 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, unspecified] 08-06-2023 Chronic Chronic kidney disease (1 source) Chronic kidney disease, unspecified; Translations: [CHRONIC KIDNEY DISEASE UNSPECIFIED] Onset: 03-17-2022 Chronic Developmental disorders (7 sources) Unspecified intellectual disabilities; Translations: [Intellectual disability] Onset: 01-31-2021 08-06-2023 Chronic Disorders usually diagnosed in infancy, childhood, or adolescence (2 sources) Autistic disorder; Translations: [AUTISTIC DISORDER] Onset: 08-01-2015 Chronic Epilepsy; convulsions (6 sources) Epilepsy, unspecified, not intractable, without status epilepticus; Translations: [Seizure disorder] Onset: 03-17-2022 08-06-2023 Chronic Essential hypertension (1 source) Essential (primary) [...] FX] Onset: 08-01-2021 Chronic Other congenital anomalies (12 sources) Tuberous sclerosis syndrome; 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 Other congenital anomalies (1 source) Tuberous sclerosis Onset: 08-14-2021 Resolved: 08-14-2021 Chronic Other connective tissue disease (4 sources) Pain in right leg; Translations: [PAIN IN RIGHT LEG] Onset: 04-11-2022 Episodic Other connective tissue disease (3 sources) Myofascial pain syndrome; Translations: [Myalgia, other site] 08-06-2023 Episodic Other connective tissue disease (2 sources) Recurrent falls ; Translations: [Repeated falls] 02-09-2024 Episodic Other diseases of kidney and ureters [...] (1 source) Other specified postprocedural states Episodic Spondylosis; intervertebral disc disorders; other back problems (3 sources) Spasm of back muscles; Translations: [Muscle spasm of back] 08-06-2023 Episodic Thyroid disorders (5 sources) Hypothyroidism, unspecified; [...] te Episodic/Chronic Disorders of teeth and jaw (3 sources) Dental caries; Translations: [Dental caries, unspecified] [...] 10-16-2021 Episodic Other aftercare (1 source) Other marine oil terminal superintendent (current) drug therapy; Translations: [OTH PHYSICIAN INDUSTRIAL CURRENT DRUG THERAPY] Onset: 09-25-2021 Episodic Other liver diseases (3 sources) Alkaline phosphatase raised; Translations: [Abnormal levels of other serum enzymes] Onset: 08-11-2023 08-11-2023 Episodic Other lower respiratory disease (1 source) [...] Free T3 [Mass/Vol] 1.8 pg/mL Low 2.0-4.4 [facility] Comment on above: Result Comment: Perf ormed at: [facility] [address] [id number] PhD Jarod Kumar Performed By: #### 2 [id number] #### [facility] [address] [place] [address] [id number] 08-20-2023 HbA1c (Bld) [Mass fraction] 5.1 % Normal <=5.9 [facility] Comment on above: Performed By: #### 7 [id number] #### [facility] [address] [place] [address] CBC w/Indiceson 08-19-2023 Erythrocyte distribution width (RBC) [Ratio] 13.2 % Normal 10.9-14.2 [facility] Comment on above: Performed By: #### 2 [id number] #### [facility] [address] [place] [address] Hematocrit (Bld) [Volume fraction] 39.3 % Normal 37.7-49.0 [facility] Comment on above: Performed By: #### 2 [id number] #### [facility] [address] [place] [address] Hemoglobin (Bld) [Mass/Vol] 13.0 g/dL Low 13.5-17.5 [facility] Comment on above: Performed By: #### 2 [id number] #### [facility] [address] [place] [address] MCH (RBC) [Entitic mass] 33.1 pg Normal 27.0-34.0 [facility] Comment on above: Performed By: #### 2 [id number] #### [facility] [address] [place] [address] MCHC (RBC) [Mass/Vol] 33.2 g/dL Normal 31.4-36.0 [facility] Comment on above: Performed By: #### 2 [id number] #### [facility] [address] [place] [address] MCV (RBC) [Entitic vol] 99.7 fL Normal 80.0-100.0 [facility] Comment on above: Performed By: #### 2 [id number] #### [facility] [address] [place] [address] Platelet mean volume (Bld) [Entitic vol] 8.9 fL Normal 6.4-10.8 [facility] Comment on above: Performed By: #### 2 [id number] #### [facility] [address] [place] [address] Platelets (Bld) [#/Vol] 156.0 E9/L Normal 150.0-500.0 [facility] Comment on above: Performed By: #### 2 [id number] #### [facility] [address] [place] [address] RBC (Bld) [#/Vol] 3.9 E12/L Low 4.3-5.9 [facility] Comment on above: Performed By: #### 2 [id number] #### [facility] [address] [place] [address] RBC size Nom (Bld) NORMAL Invalid Interpretation Code [facility] Comment on above: Performed By: #### 2 [id number] #### [facility] [address] [place] [address] WBC corrected for nucl RBC Auto (Bld) [#/Vol] 5.3 E9/L Normal 4.0-11.0 [facility] Comment on above: Performed By: #### 2 [id number] #### [facility] [address] [place] [address], [place] [address] CHEMISTRYOrdered By: SYSTEM SYSTEM on 08-19-2023 25-hydroxyvitamin [...] used for this result was chemiluminescence using [employer] Access Hybritech PSA reagent. Protein [Mass/Vol] 6.9 [...] 08-19-2023 Albumin [Mass/Vol] 4.1 g/dL Normal 3.3-5.0 [facility] Comment on above: Performed By: #### 2 [id number] #### [facility] [address] [place] [address] Albumin/Globulin (S) [Mass conc ratio] 1.5 Normal 1.1-2.2 [facility] Comment on above: Performed By: #### 2 [id number] #### [facility] [address] [place] [address] ALP [Catalytic activity/Vol] 161 Int._Unit/L High 21-98 [facility] Comment on above: Performed By: #### 2 [id number] #### [facility] [address] [place] [address] ALT No additional P-5'-P [Catalytic activity/Vol] 30 Int._Unit/L Normal 6-46 [facility] Comment on above: Performed By: #### 2 [id number] #### [facility] [address] [place] [address] Anion gap [Moles/Vol] 10 mmol/L Normal 6-16 [facility] Comment on above: Performed By: #### 2 [id number] #### [facility] [address] [place] [address] AST [Catalytic activity/Vol] 21 Int._Unit/L Normal 5-43 [facility] Comment on above: Performed By: #### 2 [id number] #### [facility] [address] [place] [address] Bilirubin [Mass/Vol] 0.4 mg/dL Normal 0.0-1.1 [facility] Comment on above: Performed By: #### 2 [id number] #### [facility] [address] [place] [address] Calcium [Mass/Vol] 8.9 mg/dL Normal 8.9-11.1 [facility] Comment on above: Performed By: #### 2 [id number] #### [facility] [address] [place] [address] Chloride [Moles/Vol] 113 mmol/L High 101-111 [facility] Comment on above: Performed By: #### 2 [id number] #### [facility] [address] [place] [address] CO2 [Moles/Vol] 24 mmol/L Normal 21-31 [facility] Comment on above: Performed By: #### 2 [id number] #### [facility] [address] [place] [address] Creatinine [Mass/Vol] 1.6 mg/dL High 0.5-1.3 [facility] Comment on above: Performed By: #### 2 [id number] #### [facility] [address] [place] [address] Globulin (S) [Mass/Vol] 2.8 g/dL Normal 1.4-4.0 [facility] Comment on above: Performed By: #### 2 [id number] #### [facility] [address] [place] [address] Glucose [Mass/Vol] 86 mg/dL Normal 55-199 [facility] Comment on above: Performed By: #### 2 [id number] #### [facility] [address] [place] [address] Potassium [Moles/Vol] 4.8 mmol/L Normal 3.5-5.3 [facility] Comment on above: Performed By: #### 2 [id number] #### [facility] [address] [place] [address] Protein [Mass/Vol] 6.9 g/dL Normal 6.0-7.8 [facility] Comment on above: Performed By: #### 2 [id number] #### [facility] [address] [place] [address] Sodium [Moles/Vol] 142 mmol/L Normal 135-145 [facility] Comment on above: Performed By: #### 2 [id number] #### [facility] [address] [place] [address] Urea nitrogen [Mass/Vol] 30 mg/dL High 5-21 [facility] Comment on above: Performed By: #### 2 [id number] #### [facility] [address] [place] [address] Urea nitrogen/Creatinine [Mass ratio] 19 No Units Normal 10-20 [facility] Comment on above: Performed By: #### 2 [id number] #### [facility] [address] [place] [address] Free T4on 08-19-2023 Free T4 [Mass/Vol] 0.56 ng/dL Low 0.58-1.64 [facility] Comment on above: Performed By: #### 2 [id number] #### [facility] [address] [place] [address] HEMATOLOGYOrdered By: SYSTEM SYSTEM on 08-19-2023 Erythrocyte [...] 08-19-2023 Cholesterol [Mass/Vol] 108 mg/dL Low 120-200 [facility] Comment on above: Performed By: #### 2 [id number] #### [facility] [address] [place] [address] Cholesterol in HDL [Mass/Vol] 34 mg/dL Invalid Interpretation Code [facility] Comment on above: Result Comment: '>= 60 LOW RISK' '<= 40 HIGH RISK' Performed By: #### 2 [id number] #### [facility] [address] [place] [address] Cholesterol in LDL [Mass/Vol] 59 mg/dL Normal <=129 [facility] Comment on above: Performed By: #### 2 [id number] #### [facility] [address] [place] [address] Cholesterol in VLDL [Mass/Vol] 19 mg/dL Normal 7-40 [facility] Comment on above: Performed By: #### 2 [id number] #### [facility] [address] [place] [address] Triglyceride [Mass/Vol] 94 mg/dL Normal <=149 [facility] Comment on above: Performed By: #### 2 [id number] #### [facility] [address] [place] [address] PSA Screen, Totalon 08-19-19 24 Prostate specific Ag [Mass/Vol] 0.4 ng/mL Normal 0.1-3.5 [facility] Comment on above: Result Comment: The concentration of PSA determined by different manufacturers can vary due to differences in assay methods and reagent specificity. Values obtained from different assay methods cannot be used interchangeably. The methodology used for this result was chemiluminescence using [employer] Access Hybritech PSA reagent. Performed By: #### 1 [id number] #### [facility] [address] [place] [address] Physician Orderon 08-19-2023 Physician Order [id number] [id number] Normal [facility] TSHon 08-19-2023 TSH Qn 0.10 m[IU]/L Low 0.34-5.60 [facility] Comment on above: Performed By: #### 2 [id number] #### [facility] [address] [place] [address] Vitamin D 25 Hydroxyon 08-18 25-hydroxyvitamin D3 [Mass/Vol] 42.7 ng/mL Normal 30.0-100.0 [facility] Comment on above: Performed By: #### 5 [id number] #### [facility] [address] [place] [address] eGFRon 08-19-2023 eGFR 50 mL/min/1.73 m2 Low >=59 [facility] Comment on above: Order Comment: Order added by Discern Expert. Performed By: #### 1 [id number] #### [facility] [address] [address] Brittany 05-15-2023 CNPN Telephone (PSYRMN) ALETHEA LEI ([id number]) 1970 M Date Time Provider Department 05/15/23 SUMEET CALI PSYRMN During your visit today, we recorded the following information about you: Mariana Fair 05/15/2023 2:56 PM Signed Lucretia Allison- patients mom called and stated that [facility] is not able to do an appt for patient with you? They told her if you had a form that you can send to them? She don't know the name of the form? The conversation was a bit confusing. Mom can be reached at [phone] Thank you, Mariana Fair Allergies As of Date: 05/15/2023 Noted Allergy Reaction ABILIFY (ARIPIPRAZOLE) 02/01/2008 1 [...] evening, and 3 tablets at bedtime - peoyvxv-njqiqgwza-uq tamin D3 (OYSTER SHELL CALCIUM-VITAMIN D) 500 [...] HEMANGIOMA SKIN [D18.01] 02/02/2008 SPECIAL SYMPTOM NEC/NOS [EZE4677] 02/03/2008 FRONTAL LOBE SYNDROME [F07.0] 08/02/2008 Autism spectrum disorder [F84.0] 08/02/2008 Impulse control disorder [F63.9] 08/16/2012 Intellectual disability [F79] 01/31/2021 Encounter Status:Closed by MARIANA FAIR on 05/18/23 Normal [facility] T3 Freeon 02-27-2023 Free T3 [Mass/Vol] 2.0 pg/mL Invalid Interpretation Code 2.0-4.4 [facility] Comment on above: Result Comment: Perf ormed at: [facility] [address] [id number] PhD Jarod Kumar Performed By: #### 2 624232, 0276163, 7507866, 93794067, 380631362, 8472710, 5193577, 9272185, 0620435, 1911900 ####[facility] [address] [place] [address] CBC w/Indiceson 02-25-2023 Erythrocyte distribution width (RBC) [Ratio] 13.2 % Normal 10.9-14.2 [facility] Comment on above: Performed By: #### 2 804425, 8194438, 5596444, 64963387, 352041444, 5485234, 1286207, 7327311, 5445416, 4323390 #### [facility] [address] [place] [address] Hematocrit (Bld) [Volume fraction] 40.6 % Normal 37.7-49.0 [facility] Comment on above: Performed By: #### 2 616832, 1677888, 8559599, 37302729, 383745100, 8322850, 4513739, 8298631, 8930020, 9394416 #### [facility] [address] [place] [address] Hemoglobin (Bld) [Mass/Vol] 13.4 g/dL Low 13.5-17.5 [facility] Comment on above: Performed By: #### 2 709845, 3347777, 9599650, 87899775, 254617430, 6739608, 7860244, 7705891, 8211947, 5133853 #### [facility] [address] [place] [address] MCH (RBC) [Entitic mass] 32.7 pg Normal 27.0-34.0 [facility] Comment on above: Performed By: #### 2 623867, 5839697, 5811642, 58222886, 100770813, 4621611, 7919038, 7687515, 8570337, 9833807 #### [facility] [address] [place] [address] MCHC (RBC) [Mass/Vol] 33.0 g/dL Normal 31.4-36.0 [facility] Comment on above: Performed By: #### 2 361067, 5854956, 6711788, 41130119, 175445278, 2799162, 1958828, 2958454, 5042656, 7458309 #### [facility] [address] [place] [address] MCV (RBC) [Entitic vol] 99.1 fL Normal 80.0-100.0 [facility] Comment on above: Performed By: #### 2 130549, 5711651, 0822649, 27498465, 481196655, 8332076, 8630533, 1671066, 6754663, 4044373 #### [facility] [address] [place] [address] Platelet mean volume (Bld) [Entitic vol] 9.6 fL Normal 6.4-10.8 [facility] Comment on above: Performed By: #### 2 973468, 6437165, 7599927, 57829899, 348071489, 9577022, 5540940, 5194109, 8351898, 1258308 #### [facility] [address] [place] [address] Platelets (Bld) [#/Vol] 170.0 E9/L Normal 150.0-500.0 [facility] Comment on above: Performed By: #### 2 888786, 5482149, 6638550, 58437047, 489343618, 3246943, 8070506, 8605515, 0318772, 7174165 #### [facility] [address] [place] [address] RBC (Bld) [#/Vol] 4.1 E12/L Low 4.3-5.9 [facility] Comment on above: Performed By: #### 2 006516, 3332505, 4982658, 77263916, 867176794, 3011637, 4816204, 8586872, 0224400, 7109719 #### [facility] [address] [place] [address] WBC corrected for nucl RBC Auto (Bld) [#/Vol] 4.4 E9/L Normal 4.0-11.0 [facility] Comment on above: Performed By: #### 2 446528, 9038046, 8942916, 67005792, 085452591, 1098212, 3590622, 4322541, 1676825, 8109909 #### [facility] [address] [place], [place] [address], [place] [address] CHEMISTRYOrdered By: SYSTEM SYSTEM on 02-25-2023 Albumin [...] 02-25-2023 Albumin [Mass/Vol] 4.1 g/dL Normal 3.3-5.0 [facility] Comment on above: Performed By: #### 2 755931, 7033232, 0790325, 71097626, 501925114, 0225456, 2655967, 8551605, 2640750, 7770272 #### [facility] [address] [place] [address] Albumin/Globulin [Mass ratio] 1.4 {ratio} Normal 1.1-2.2 [facility] Comment on above: Performed By: #### 2 189559, 7559876, 6535602, 39569362, 415853330, 2914493, 3570196, 5754858, 0981297, 0225869 #### [facility] [address] [place] [address] Alk Phos 158 Int._Unit/L High 21-98 [facility] Comment on above: Performed By: #### 2 732484, 3104982, 4418099, 11950393, 987132436, 9508433, 9001905, 3597979, 3171565, 4683637 #### [facility] [address] [place] [address] ALT 32 Int._Unit/L Normal 6-46 [facility] Comment on above: Performed By: #### 2 104682, 4217174, 3715240, 30280471, 828104367, 9601502, 9217110, 4547355, 6494581, 3529419 #### [facility] [address] [place] [address] Anion gap [Moles/Vol] 12 mmol/L Normal 6-16 [facility] Comment on above: Performed By: #### 2 517781, 3666584, 1867792, 27611241, 717621363, 5623872, 5427954, 1652846, 7624317, 5755340 #### [facility] [address] [place] [address] AST 25 Int._Unit/L Normal 5-43 [facility] Comment on above: Performed By: #### 2 484215, 3111103, 3347107, 82392285, 519970576, 3510031, 5760639, 9334467, 7750427, 5571032 #### [facility] [address] [place] [address] Bili Total 0.3 mg/dL Normal 0.0-1.1 [facility] Comment on above: Performed By: #### 2 473800, 8945609, 8678888, 75780300, 223983104, 0322648, 5175850, 0296403, 0923036, 3365481 #### [facility] [address] [place] [address] BUN/Creat Ratio 17 No Units Normal 10-20 [facility] Comment on above: Performed By: #### 2 345483, 2742135, 6967857, 63745956, 354502165, 5796694, 1387390, 4519937, 2635371, 4301098 #### [facility] [address] [place] [address] Calcium [Mass/Vol] 8.9 mg/dL Normal 8.9-11.1 [facility] Comment on above: Performed By: #### 2 783818, 4056692, 9483875, 59314506, 463329308, 5506356, 7173450, 5394486, 3849270, 5234839 #### [facility] [address] [place] [address] Chloride [Moles/Vol] 113 mmol/L High 101-111 [facility] Comment on above: Performed By: #### 2 480418, 0809369, 6315011, 68017928, 975912397, 0902299, 5239166, 8735881, 0808909, 1809937 #### [facility] [address] [place] [address] CO2 [Moles/Vol] 22 mmol/L Normal 21-31 [facility] Comment on above: Performed By: #### 2 061752, 4325195, 1525629, 02059665, 721469563, 7143901, 2816628, 8210334, 3561558, 7689647 #### [facility] [address] [place] [address] Creatinine [Mass/Vol] 1.5 mg/dL High 0.5-1.3 [facility] Comment on above: Performed By: #### 2 322866, 0471209, 9421262, 56503295, 575410950, 1880948, 8048440, 7817054, 9340208, 0276759 #### [facility] [address] [place] [address] Globulin (S) [Mass/Vol] 2.9 g/dL Normal 1.4-4.0 [facility] Comment on above: Performed By: #### 2 190957, 3298700, 6111712, 05315205, 262639671, 3478234, 5549206, 7900440, 6332360, 4086186 #### [facility] [address] [place] [address] Glucose [Mass/Vol] 90 mg/dL Normal 55-199 [facility] Comment on above: Performed By: #### 2 584427, 8108264, 9482710, 80831020, 920790691, 6247447, 5689170, 5556136, 0852983, 4548822 #### [facility] [address] [place] [address] Potassium [Moles/Vol] 4.8 mmol/L Normal 3.5-5.3 [facility] Comment on above: Performed By: #### 2 600319, 4564462, 0419835, 65593716, 119124964, 8194416, 9460716, 1627624, 6744311, 1601487 #### [facility] [address] [place] [address] Protein [Mass/Vol] 7.0 g/dL Normal 6.0-7.8 [facility] Comment on above: Performed By: #### 2 435252, 0211389, 0129628, 72838926, 469926329, 4314311, 5214287, 5634699, 1522399, 0471692 #### [facility] [address] [place] [address] Sodium [Moles/Vol] 142 mmol/L Normal 135-145 [facility] Comment on above: Performed By: #### 2 848117, 2945517, 4354893, 26094626, 906281327, 2336732, 4013837, 1835213, 8450540, 9872137 #### [facility] [address] [place] [address] Urea nitrogen [Mass/Vol] 26 mg/dL High 5-21 [facility] Comment on above: Performed By: #### 2 663092, 8506282, 5950466, 56060034, 026992528, 3156889, 3373416, 2187832, 5586292, 3890222 #### [facility] [address] [place] [address] Free T4on 02-25-2023 Free T4 [Mass/Vol] 0.66 ng/dL Normal 0.58-1.64 [facility] Comment on above: Performed By: #### 2 443554, 9101528, 1096848, 88074323, 892427894, 1544106, 6844418, 0412524, 7358891, 4854365 #### [facility] [address] [place] [address] HEMATOLOGYOrdered By: Clarence Srivastava on 02-25-2023 Erythrocyte [...] 4.1 E12/L Low 4.3 - 5.9 E12/L [facility] HemeAutoSS WBC corrected for nucl RBC Auto (Bld) [#/Vol] 4.4 E9/L Normal 4.0 - 11.0 E9/L [facility] HemeAutoSS Ironon 02-25-2023 Iron 130 microgram/dL Normal 35-153 [facility] Comment on above: Performed By: #### 2 657352, 2441075, 9366183, 60065008, 021617625, 4127622, 8517536, 7876486, 1435773, 8531032 #### [facility] [address] [place] [address] Lipid Panelon 02-25-2023 Cholesterol [Mass/Vol] 105 mg/dL Low 120-200 [facility] Comment on above: Performed By: #### 2 916764, 4784656, 5518536, 18480277, 200379063, 8797336, 5810807, 1455554, 6060873, 7618509 #### [facility] [address] [place] [address] Cholesterol in HDL [Mass/Vol] 40 mg/dL Invalid Interpretation Code [facility] Comment on above: Result Comment: '>= 60 LOW RISK' '<= 40 HIGH RISK' Performed By: #### 2 305549, 0178417, 3666068, 53184505, 013717355, 9866336, 9597211, 0649728, 4302870, 7967662 #### [facility] [address] [place] [address] Cholesterol in LDL [Mass/Vol] 54 mg/dL Normal <=129 [facility] Comment on above: Performed By: #### 2 084204, 4838785, 7499728, 78037079, 102895076, 6219558, 1020367, 4865560, 7918792, 3627806 #### [facility] [address] [place] [address] Cholesterol in VLDL [Mass/Vol] 16 mg/dL Normal 7-40 [facility] Comment on above: Performed By: #### 2 060426, 4532562, 3995312, 04601026, 793129590, 8037441, 0608492, 9631704, 4029064, 5800451 #### [facility] [address] [place] [address] Triglyceride [Mass/Vol] 81 mg/dL Normal <=149 [facility] Comment on above: Performed By: #### 2 653078, 2454394, 2681637, 70896522, 806668232, 1972257, 2754364, 9431034, 0606670, 2895346 #### [facility] [address] [place] [address] Physician Orderon 02-25-2023 Physician Order [id number] 5#1.00TIFF Normal [facility] TSHon 02-25-2023 TSH Qn 0.03 m[IU]/L Low 0.34-5.60 [facility] Comment on above: Performed By: #### 2 857889, 9027165, 7826374, 21721148, 589346154, 6550612, 2299997, 1553572, 0773907, 7490951 #### [facility] [address] [place] [address] Vit B12on 02-25-2023 Cobalamin (Vitamin B12) [Mass/Vol] 483 pg/mL Normal 50-1500 [facility] Comment on above: Performed By: #### 2 088417, 9647633, 8863147, 77341150, 840310404, 2319112, 6225326, 0277437, 5310545, 0028739 #### [facility] [address] [place] [address] Vitamin D 25 Hydroxyon 02-25 Vitamin D 25 Hydroxy 50.9 ng/mL Normal 30.0-100.0 [facility] Comment on above: Performed By: #### 2 974237, 1081075, 6908048, 73328650, 656978990, 5529287, 8518260, 4995224, 2824688, 5497562 ####[facility] [address] [place] [address] eGFRon 02-25-2023 eGFR 55 mL/min/1.73 m2 Low >=59 [facility] Comment on above: Order Comment: Order added by Discern Expert. Performed By: #### 2 583359, 3951710, 3704602, 18866559, 339813174, 0693563, 9017149, 8006823, 8949689, 8790208 #### [facility] [address] [place] [address] PSA Screen, Totalon 11-14-19 23 Prostate specific Ag [Mass/Vol] 0.5 ng/mL Normal 0.1-3.5 [facility] Comment on above: Result Comment: The concentration of PSA determined by different manufacturers can vary due to differences in assay methods and reagent specificity. Values obtained from different assay methods cannot be used interchangeably. The methodology used for this result was chemiluminescence using [employer] Hybritech PSA reagent. Performed By: #### 1 5149554 ####[facility] [address] [place] [address] Physician Orderon 11-12-2022 Physician Order [id number] 7#1.00CD:127 Normal [facility] US KIDNEYS BLADDERon 023 US KIDNEYS BLADDER [...] NORMA ROSS Date: 2022-05-27 08:52 Normal [facility] XR PELVIS 1_2 VIEWSon 2022 XR [...] JONAH MAJANO Date: 2022-04-14 08:21 Normal [facility] XR HIP RT 2 3V WO [...] by: NORMA BROWN Date: 2022-04-10 08:[address] [facility] Glucose Poct Glucometerson 0 04-09-2022 Commemt1 Normal [facility] Comment on above: Result Comment: Glu2 : WILL NOTIFY DR/RN PERFORMED BY: [address] [address] PATHOLOGIST [employer] MAKER CHRISTINE FERNÁNDEZ M.D. Performed By: #### G LULS #### Point of Care testing , Glucose [Mass/Vol] 58 mg/dL Off scale low Fir [facility] Comment on above: Result Comment: [place] Glucose Reference Range is dependent on time and content of last meal. Glucose of more than 200 mg/dL in a nonstressed, ambulatory subject supports the diagnosis of Diabetes Mellitus. Performed By: #### G LULS #### Point of Care testing , PET tumor init tx strat sb-m ton 04-09-2022 PET tumor init tx strat sb-mt [facility] Main [place] [address] [place] [address] Nuclear Medicine Report Signed Patient: Alethea Lei MR#: [id number] : 1970 Acct:[id number] Age/Sex: 52 / M ADM Date: 04/09/22 Loc: Room: Type: [facility] Attending Dr: Nallely Parada MD Copies to: Panda De Guzman Jr, DO Kamal Chaban, MD Ordering Provider: Nallely Parada MD Date [...] Guzman Jr., D.O.04/09/2022 1:09 PM Dictation Location: [place] [address] Transcribed By: WEDNY 04/09/22 1309 Dictated By: Panda De Guzman Jr, DO 04/09/22 1259 Signed By: 04/09/22 1309 Normal [facility] Glucose Glucometer (BldC) [M ass/Vol]Ordered By: Nallely Parada on 03-12-2022 Glucose [Mass/Vol] 95 mg/dL [facility] Comment on above: Random Glucose Refer ence Range is dependent on time and content of last meal. Glucose of more than 200 mg/dL in a nonstressed, ambulatory subject supports the diagnosis of Diabetes Mellitus. Glucose Poct Glucometerson 0 03-12-2022 Glucose [Mass/Vol] 95 mg/dL Normal [facility] Comment on above: Result Comment: [place] om Glucose Reference Range is dependent on time and content of last meal. Glucose of more than 200 mg/dL in a nonstressed, ambulatory subject supports the diagnosis of Diabetes Mellitus. PERFORMED BY: [facility] [place] [address] PATHOLOGIST [employer]LE MAKER CHRISTINE FERNÁNDEZ M.D. Performed By: #### G LULS #### Point of Care testing , CBC AUTO DIFFon 03-11-2022 BASO # 0.0 103/ul Normal 0.0-0.[address] [facility] Comment on above: Performed By: #### C BC ####[facility] [address] [place] [address]Dr. Guille Mayo Basophils/100 WBC (Bld) 0.6 % Normal 0.2-2.0 [facility] Comment on above: Performed By: #### C BC ####[facility] [address] [place] [address]Dr. Guille Mayo EO # 0.2 103/ul Normal 0.0-0.7 [facility] Comment on above: Performed By: #### C BC ####[facility] [address] [place] [address]Dr. Guille Mayo Eosinophils/100 WBC (Bld) 2.8 % Normal 0.9-7.0 [facility] Comment on above: Performed By: #### C BC ####[facility] [address] [place] [address]Dr. Guille Mayo Erythrocyte distribution width (RBC) [Ratio] 12.6 % Normal 11.0-15.0 [facility] Comment on above: Performed By: #### C BC ####[facility] [address] [place] [address]Dr. Guille Mayo Hematocrit (Bld) [Volume fraction] 40.4 % Critically low 42.0-54.[address] [facility] Comment on above: Performed By: #### C BC ####[facility] [address] [place] [address]Dr. Guille Mayo Hemoglobin (Bld) [Mass/Vol] 13.7 g/dL Critically low 14.0-18.[address] [facility] Comment on above: Performed By: #### C BC ####[facility] [address] [place], [place] [address]Dr. Guille Mayo IG # 0.02 10e3/ul Normal 0.00-0.[address] [facility] Comment on above: Performed By: #### C BC ####[facility] [address] [place], [place] [address]Dr. Guille Mayo IG % 0.4 % Normal 0.0-0.[address] [facility] Comment on above: Performed By: #### C BC ####[facility] [address] [place], [place] [address]DrCarol Mayo LYMPH # 1.1 103/ul Critically low 1.2-3.8 [facility] Comment on above: Performed By: #### C BC ####[facility] [address] [place], [place] [address]DrCarol Mayo Lymphocytes/100 WBC (Bld) 20.8 % Normal 20.5-60.0 [facility] Comment on above: Performed By: #### C BC ####[facility] [address] [place], [place] [address]DrCarol Mayo MANUAL DIFF REQ NO Normal [facility] Comment on above: Performed By: #### C BC ####[facility] [address] [place] [address]Dr. Guille Mayo MCH (RBC) [Entitic mass] 32.3 pg Normal 25.9-34.0 [facility] Comment on above: Performed By: #### C BC ####[facility] [address] [place] [address]Dr. Guille Gael MCHC (RBC) [Mass/Vol] 33.9 g/dL Normal 29.9-35.2 [facility] Comment on above: Performed By: #### C BC ####[facility] [address] [place] [address]DrCarol Mayo MCV (RBC) [Entitic vol] 95.3 fL Critically high 80.0-94.[address] [facility] Comment on above: Performed By: #### C BC ####[facility] [address] [place], [place] [address]DrCarol Mayo MONO # 0.4 103/ul Normal 0.3-0.[address] [facility] Comment on above: Performed By: #### C BC ####[facility] [address] [place], [place] [address]Dr. Guille Mayo Monocytes/100 WBC (Bld) 7.4 % Normal 1.7-12.[address] [facility] Comment on above: Performed By: #### C BC ####[facility] [address] [place], [place] [address]Dr. Guille Mayo NEUT # 3.7 103/ul Normal 1.4-6.5 [facility] Comment on above: Performed By: #### C BC ####[facility] [address] [place], [place] [address]DrCarol Mayo Neutrophils/100 WBC (Bld) 68.0 % Normal 43.0-75.0 [facility] Comment on above: Performed By: #### C BC ####[facility] [address] [place], [place] [address]DrCarol Mayo Platelet mean volume (Bld) [Entitic vol] 10.4 fL Normal 9.5-13.5 [facility] Comment on above: Performed By: #### C BC ####[facility] [address] [place], [place] [address]DrCarol Mayo PLT 133 103/ul Critically low 150-450 [facility] Comment on above: Performed By: #### C BC ####[facility] [address] [place], [place] [address]AxDr. Guille Mayo RBC 4.24 106/ul Critically low 4.70-6.10 [facility] Comment on above: Performed By: #### C BC ####[facility] [address] [place], [place] [address]ZeDr. Guille Mayo WBC 5.4 103/ul Normal 4.0-11.[address] [facility] Comment on above: Performed By: #### C BC ####[facility] [address] [place], [place] [address]UiDr. Guille Mayo FREE T4on 03-11-2022 Free T4 [Mass/Vol] 0.68 ng/dL Critically low 0.76-1.46 [facility] Comment on above: Performed By: #### F T4 #### [facility] [address] [place] [address] [address] Guille Mayo LIPID PROFILEon 03-11-2022 CHOL-HDL RATIO NORM SEE BELOW Normal [facility] Comment on above: Result Comment: 3.3 - 4.4 LOW RISK 4.4 - 7.1 AVERAGE RISK 7.1 - 11.0 MODERATE RISK >11.0 HIGH RISK Performed By: #### L IPID, TSH, CMP #### [facility] [address] [place] [address] [address] Guille Mayo Cholesterol [Mass/Vol] 130 mg/dL Normal <=[address] [facility] Comment on above: Performed By: #### L IPID, TSH, CMP #### [facility] [address] [place] [address] [address] Guille Mayo Cholesterol in HDL [Mass/Vol] 45 mg/dL Normal 40-[address] [facility] Comment on above: Performed By: #### L IPID, TSH, CMP #### [facility] [address] [place] [address] [address] Guille Mayo Cholesterol in LDL [Mass/Vol] 67.6 mg/dL Normal [facility] Comment on above: Performed By: #### L IPID, TSH, CMP #### [facility] [address] [place] [address] [address] Guille Mayo Cholesterol.total/Cho lesterol in HDL [Mass ratio] 2.9 {ratio} Normal [facility] Comment on above: Performed By: #### L IPID, TSH, CMP #### [facility] [address] [place] [address] [address] Guille Mayo HDL NORMAL > or = 60 mg/dl - LOW CARDIOVASCULAR RISK <40 mg/dl - HIGH CARDIOVASCULAR RISK Normal [facility] Comment on above: Performed By: #### L IPID, TSH, CMP #### [facility] [address] [place] [address] [address] Guille Mayo LDL CALC NORMAL SEE BELOW Normal [facility] Comment on above: Result Comment: <100 mg/dl OPTIMAL 100 - 129 mg/dl NEAR OR ABOVE OPTIMAL 130 - 159 mg/dl BORDERLINE HIGH 160 - 189 mg/dl HIGH >190 mg/dl VERY HIGH Performed By: #### L IPID, TSH, CMP #### [facility] [address] [place] [address] [address] Guille Mayo Triglyceride [Mass/Vol] 87 mg/dL Normal <=[address] [facility] Comment on above: Performed By: #### L IPID, TSH, CMP #### [facility] [address] [place] [address] [address] Guille Mayo VLDL CALC 17.4 mg/dL Normal [facility] Comment on above: Performed By: #### L IPID, TSH, CMP #### [facility] [address] [place] [address] [address] Guille Mayo PROF 14(COMP METB)on 023 Albumin [Mass/Vol] 3.8 g/dL Normal 3.4-5.[address] [facility] Comment on above: Performed By: #### L IPID, TSH, CMP #### [facility] [address] [place] [address] [address] Guille Mayo Albumin/Globulin [Mass ratio] 1.0 {ratio} Normal [facility] Comment on above: Performed By: #### L IPID, TSH, CMP #### [facility] [address] [place] [address] [address] Guille Mayo ALP [Catalytic activity/Vol] 217 U/L Critically high 46-[address] [facility] Comment on above: Performed By: #### L IPID, TSH, CMP #### [facility] [address] [place] [address] [address] Guille Mayo ALT [Catalytic activity/Vol] 38 U/L Normal 16-[address] [facility] Comment on above: Performed By: #### L IPID, TSH, CMP #### [facility] [address] [place] [address] [address] Guille Mayo Anion gap [Moles/Vol] 12.2 mmol/L Normal [facility] Comment on above: Performed By: #### L IPID, TSH, CMP #### [facility] [address] [address] [address] Guille Mayo AST [Catalytic activity/Vol] 32 U/L Normal 15-[address] [facility] Comment on above: Performed By: #### L IPID, TSH, CMP #### [facility] [address] [address] [address] Guille Mayo Bilirubin [Mass/Vol] 0.3 mg/dL Normal 0.2-1.[address] [facility] Comment on above: Performed By: #### L IPID, TSH, CMP #### [facility] [address] [address] [address] Guille Mayo Calcium [Mass/Vol] 9.3 mg/dL Normal 8.5-10.[address] [facility] Comment on above: Performed By: #### L IPID, TSH, CMP #### [facility] [address] [address] [address] Guille Mayo Chloride [Moles/Vol] 106 mmol/L Normal 98-[address] [facility] Comment on above: Performed By: #### L IPID, TSH, CMP #### [facility] [address] [address] [address] Guille Mayo CO2 [Moles/Vol] 27.2 mmol/L Normal 21.0-32.0 [facility] Comment on above: Performed By: #### L IPID, TSH, CMP #### [facility] [address] [place] [address] Dr. Guille Mayo Creatinine [Mass/Vol] 1.31 mg/dL Critically high 0.70-1.[address] [facility] Comment on above: Performed By: #### L IPID, TSH, CMP #### [facility] [address] [place] [address] Dr. Guille Mayo EGFR-AF FRENCH >60 Normal >=60 [facility] Comment on above: Performed By: #### L IPID, TSH, CMP #### [facility] [address] [place] [address] Dr. Guille Mayo EGFR-NON AF FRENCH 57 mL/min/1.73m2 Critically low >=[address] [facility] Comment on above: Performed By: #### L IPID, TSH, CMP #### [facility] [address] [place] [address] Dr. Guille Mayo Globulin (S) [Mass/Vol] 3.8 g/dL Normal [facility] Comment on above: Performed By: #### L IPID, TSH, CMP #### [facility] [address] [place] [address] Dr. Guille Mayo Glucose [Mass/Vol] 98 mg/dL Normal 74-106 [facility] Comment on above: Performed By: #### L IPID, TSH, CMP #### [facility] [address] [place] [address] Dr. Guille Mayo Potassium [Moles/Vol] 4.4 mmol/L Normal 3.5-5.1 [facility] Comment on above: Performed By: #### L IPID, TSH, CMP #### [facility] [address] [place] [address] Dr. Guille Mayo Protein [Mass/Vol] 7.6 g/dL Normal 6.4-8.2 [facility] Comment on above: Performed By: #### L IPID, TSH, CMP #### [facility] [address] [address] [address] Guille Mayo Sodium [Moles/Vol] 141 mmol/L Normal 136-[address] [facility] Comment on above: Performed By: #### L IPID, TSH, CMP #### [facility] [address] [place], [place] [address] Dr. Guille Mayo Urea nitrogen [Mass/Vol] 27.0 mg/dL Critically high 7.0-18.[address] [facility] Comment on above: Performed By: #### L IPID, TSH, CMP #### [facility] [address] [place], [place] [address] Dr. Guille Mayo Urea nitrogen/Creatinine [Mass ratio] 20.6 mg/mg Normal [facility] Comment on above: Performed By: #### L IPID, TSH, CMP #### [facility] [address] [place], [place] [address] Dr. Guille Mayo TSHon 03-11-2022 TSH 0.278 uIU/mL Critically low 0.358-3.740 [facility] Comment on above: Performed By: #### L IPID, TSH, CMP ####[facility] [address] [place], [place] [address]IsDr. Guille Mayo XR ankle RT min 3V*on 2021 XR ankle RT min 3V* [facility] [place] [place] [address] XRay Report Signed Patient: Alethea Lei MR#: [id number] : 1970 Acct:[id number] Age/Sex: 51 / M ADM Date: 01/06/22 [place] [facility] [place] Type[place] [facility] Attending Dr: Cj Gayle DO Copies [...] Geovanny Magallanes M.D.01/06/2022 3:54 PM Dictation Location: [place] [address] Transcribed By: [facility] 01/06/22 1554 Dictated By: Geovanny Magallanes DO 01/06/22 1553 Signed By: 01/06/22 155 Normal [facility] XR ankle RT min 3V* [facility] [employer] Other XR ankle RT min 3V* [facility] [employer] Other XR ankle RT min 3V* [address] [place] [address] [employer] Other XR ankle RT min 3V* [place] [address] [employer] Other XR ankle RT min 3V* XRay Report [facility] [employer] Other XR ankle RT min 3V* Signed [employer] Other XR ankle RT min 3V* Patient: Alethea Lei MR#: [id number] [employer] Other XR ankle RT min 3V* : 1970 Acct:[id number] [employer] Other XR ankle RT min 3V* Age/Sex: 51 / M ADM Date: 01/06/22 [employer] Other XR ankle RT min 3V* Loc: [facility] Room: Type: [facility] [employer] Other XR ankle RT min 3V* Attending Dr: Cj Gayle DO [employer] Other XR ankle RT min 3V* Copies to: Cj Gayle DO [employer] Other XR ankle RT min 3V* Ordering Provider: Cj Gayle DO [employer] Other XR ankle RT min 3V* Date of Service: 01/06/22 [employer] Other XR ankle RT min 3V* XR/XR ankle RT min 3V*: Displaced fracture of lateral malleolus of right [employer] Other XR ankle RT min 3V* fibula, sub [employer] Other XR ankle RT min 3V* 3views Rightankle [employer] Other XR ankle RT min 3V* COMPARISON:11/22/21 [employer] Other XR ankle RT min 3V* HISTORY: Status post ORIF RIGHT lateral malleolus fracture [employer] Other XR ankle RT min 3V* No hardware failure. Adequate bony alignment. Continued healing of distal fibular fracture. [employer] Other XR ankle RT min 3V* XR/XR ankle RT min 3V* [employer] Other XR ankle RT min 3V* IMPRESSION: Healing fracture. No hardware failure. [employer] Other XR ankle RT min 3V* Impression dictated by: Geovanny Magallanes M.D.01/06/2022 3:54 PM [employer] Other XR ankle RT min 3V* Dictation Location: [place] [address] [employer] Other XR ankle RT min 3V* Transcribed By: WENDY 01/06/22 [facility] [employer] Other XR ankle RT min 3V* Dictated By: Geovanny Magallanes DO 01/06/22 [facility] [employer] Other XR ankle RT min 3V* Signed By: [employer] Other XR ankle RT min 3V* 01/06/22 1554 No [employer] Other Progress Noteson 12-04-2021 [employer] Sales Representative Authentication Interface Message Text Normal [facility] [employer] Authentication Interface Message Text ----- Saturday, December 04, 2021 at 11:22:04 AM ----- ----- Provider: [id number] Brandy Bautistaenist -- Clinic: [place] ----- [facility], Pt is ready for tx. Pt presented with caries Radiograph taken today: none Discussed the medical necessity of the problem with the pt. Instructions given to pt. Caregiver understood the situation and is okay with medications for today. Pt will come back should things get worse. Guardianship: PARENTS - Nabila (Kerri Lei [address] [place] [address] / Email: [email or web address] Communicated with caregiver that the pt was placed on the OR list and we will call with appt. Limited exam completed by Dr. Noel STEPHENS. OR ----- Signed on Saturday, December 04, 2021 at 11:51:43 AM ----- ----- Provider: [id number] Tucker Myers DDS -- Clinic: [place] ----- Normal [facility] XR ankle RT min 3V*on 2021 XR ankle RT min 3V* [facility] Main [place] [address] [place], [place] [id number] XRay Report Signed Patient: Alethea Lei MR#: [id number] : 1970 Acct:[id number] Age/Sex: 51 / M ADM Date: 11/22/21 [place] [facility] [place]: Type: [facility] Attending Dr: Cj Gayle DO Copies [...] FIXATED DISTAL FIBULAR FRACTURE. Impression dictated by: Muna Cee Jr.OCarol11/22/2021 2:39 PM Dictation Location: RADIO--09 Transcribed By: WENDY 11/22/21 1439 Dictated By: Panda De Guzman Jr, DO 11/22/21 1438 Signed By: 11/22/21 1439 [facility] XR ankle RT min 3V*on 2021 XR ankle RT min 3V* [facility] [place] [address] XRay Report Signed Patient: Alethea Lei MR#: [id number] : 1970 Acct:[id number] Age/Sex: 51 / M ADM Date: 10/16/21 [place] [facility] [place]: Type: [facility] Attending Dr: Cj Gayle DO Copies [...] Guzman Jr., D.O.10/16/2021 1:10 PM Dictation Location: [facility] Transcribed By: WENDY 10/16/21 1310 Dictated By: Panda De Guzman Jr, DO 10/16/21 1307 Signed By: 10/16/21 1310 [facility] XR ankle RT min 3V* [facility] [employer] Other XR ankle RT min 3V* [facility] [employer] Other XR ankle RT min 3V* [address] [facility] [employer] Other XR ankle RT min 3V* [place] [address] [employer] Other XR ankle RT min 3V* XRay Report [facility] [employer] Other XR ankle RT min 3V* Signed [employer] Other XR ankle RT min 3V* Patient: Alethea Lei MR#: [id number] [employer] Other XR ankle RT min 3V* : 1970 Acct:[id number] [employer] Other XR ankle RT min 3V* Age/Sex: 51 / M ADM Date: 10/16/21 [employer] Other XR ankle RT min 3V* [place] [facility] [place]: Type: [facility] [employer] Other XR ankle RT min 3V* Attending Dr: Cj Gayle DO [employer] Other XR ankle RT min 3V* Copies to: Cj Gayle DO [employer] Other XR ankle RT min 3V* Ordering Provider: Cj Gayle DO [employer] Other XR ankle RT min 3V* Date of Service: 10/16/21 [employer] Other XR ankle RT min 3V* XR/XR ankle RT min 3V*: Displaced fracture of lateral malleolus of right [employer] Other XR ankle RT min 3V* fibula, sub [facility] [employer] Other XR ankle RT min 3V* RIGHT ANKLE - 3 views [employer] Other XR ankle RT min 3V* CLINICAL HISTORY: ORIF right lateral malleolus fracture. Follow up [employer] Other XR ankle RT min 3V* COMPARISON: Intraoperative study 09/24/2021 [employer] Other XR ankle RT min 3V* FINDINGS: [employer] Other XR ankle RT min 3V* syndesmotic screw without evidence of hardware complication. Fracture line is still evident [employer] Other XR ankle RT min 3V* suggestive of incomplete healing. Medial malleolar fracture is unchanged.. Soft tissue swelling. [employer] Other XR ankle RT min 3V* Plantar spurring. [employer] Other XR ankle RT min 3V* XR/XR ankle RT min 3V* [employer] Other XR ankle RT min 3V* IMPRESSION: Nort [employer] Other XR ankle RT min 3V* NO EVIDENCE OF HARDWARE COMPLICATION. [employer] Other XR ankle RT min 3V* Impression dictated by: Muna Cee Jr.OCarol10/16/2021 1:10 PM [employer] Other XR ankle RT min 3V* Dictation Location: [place] [address] [employer] Other XR ankle RT min 3V* Transcribed By: PWS 10/16/21 1310 [employer] Other XR ankle RT min 3V* Dictated By: Panda De Guzman Jr DO 10/16/21 1307 [employer] Other XR ankle RT min 3V* Signed By: [employer] Other XR ankle RT min 3V* 10/16/21 1310 No [employer] Other ECG 12 lead ECGon 09-24-2021 ECG 12 lead ECG [facility] Main [place] [id number] Electrocardiograph Report Signed Patient: Alethea Lei MR#: [id number] : 1970 Acct:[id number] Age/Sex: 51 / M ADM Date: 09/24/21 Loc: [place] Room: Type: [facility] Attending Dr: Cj Gayle DO [...] Signed By Zafar Spicer DO 09/24 1909 Normal [facility] XR ankle RT min 3V*on 2021 XR ankle RT min 3V* [facility] Main [place] [id number] XRay Report Signed Patient: Alethea Lei MR#: [id number] : 1970 Acct:[id number] Age/Sex: 51 / M ADM Date: 09/24/21 Loc: [place] Room: Type: [facility] Attending Dr: Cj Gayle DO [...] Guzman Jr., D.O.09/24/2021 4:10 PM Dictation Location: [place] [address] Transcribed By: [facility] 09/24/21 1610 Dictated By: Panda De Guzman Jr, DO 09/24/21 1609 Signed By: 09/24/21 1610 Normal [facility] COVID-19 FRon 09-23-2021 SARS-CoV-2 (COVID-19) RNA GARY+probe Ql (Unsp spec) Negative Normal Negative [facility] Comment on above: Order Comment: Comme nt OR 09/24/21 Healthcare Worker?: N Result Comment: Testing for SARS-CoV-2 by RT-PCR This test was developed and its performance characteristics determined by [employer]) and validated at the [facility]. This test has not been FDA [...] is terminated or revoked sooner. PERFORMED BY: [place] [address] PATHOLOGIST [employer] CHRISTINE FERNÁNDEZ M.D. Performed By: #### C OVID 19 [facility] #### [address] COVID-19 Positive/NegativeOr dered By: Cj Gayle on 09-23-2021 SARS-CoV-2 (COVID-19) N gene GARY+probe Ql (Resp) Negative Negative [facility] Comment on above: Testing for SARS-CoV -2 by RT-PCR This test was developed and its performance characteristics determined by [employer] ([employer]) and validated at the [facility]. This test has not been FDA [...] BASO # 0.0 103/ul Normal 0.0-0.1 [facility] Comment on above: Performed By: #### C BC ####[facility] [address] [place], [place] [address]Dr. Guille Mayo Basophils/100 WBC (Bld) 0.2 % Normal 0.2-2.0 [facility] Comment on above: Performed By: #### C BC ####[facility] [address] [place], [place] [address]Dr. Guille Mayo EO # 0.1 103/ul Normal 0.0-0.7 [facility] Comment on above: Performed By: #### C BC ####[facility] [address] [place], [place] [address]Dr. Guille Mayo Eosinophils/100 WBC (Bld) 1.2 % Normal 0.9-7.0 [facility] Comment on above: Performed By: #### C BC ####[facility] [address] [place], [place] [address]Dr. Guille Mayo Erythrocyte distribution width (RBC) [Ratio] 12.2 % Normal 11.0-15.[address] [facility] Comment on above: Performed By: #### C BC ####[facility] [address] [address]DrCarol Mayo Hematocrit (Bld) [Volume fraction] 38.0 % Critically low 42.0-54.[address] [facility] Comment on above: Performed By: #### C BC ####[facility] [address] [address]DrCarol Mayo Hemoglobin (Bld) [Mass/Vol] 12.8 g/dL Critically low 14.0-18.[address] [facility] Comment on above: Performed By: #### C BC ####[facility] [address] [place], [place] [address]DrCarol Mayo IG # 0.03 10e3/ul Normal 0.00-0.[address] [facility] Comment on above: Performed By: #### C BC ####[facility] [address] [place], [place] [address]DrCarol Mayo IG % 0.4 % Normal 0.0-0.[address] [facility] Comment on above: Performed By: #### C BC ####[facility] [address] [place], [place] [address]DrCarol Mayo LYMPH # 0.9 103/ul Critically low 1.2-3.8 [facility] Comment on above: Performed By: #### C BC ####[facility] [address] [place], [place] [address]DrCarol Mayo Lymphocytes/100 WBC (Bld) 10.7 % Critically low 20.5-60.0 [facility] Comment on above: Performed By: #### C BC ####[facility] [address] [place], [place] [address]DrCarol Mayo MANUAL DIFF REQ NO Normal [facility] Comment on above: Performed By: #### C BC ####[facility] [address] [place], [place] [address]DrCarol Mayo MCH (RBC) [Entitic mass] 32.2 pg Normal 25.9-34.[address] [facility] Comment on above: Performed By: #### C BC ####[facility] [address] [place] [address]DrCarol Mayo MCHC (RBC) [Mass/Vol] 33.7 g/dL Normal 29.9-35.2 [facility] Comment on above: Performed By: #### C BC ####[facility] [address] [place], [place] [address]DrCarol Mayo MCV (RBC) [Entitic vol] 95.7 fL Critically high 80.0-94.[address] [facility] Comment on above: Performed By: #### C BC ####[facility] [address] [place], [place] [address]DrCarol Mayo MONO # 0.7 103/ul Normal 0.3-0.8 [facility] Comment on above: Performed By: #### C BC ####[facility] [address] [place], [place] [address]DrCarol Mayo Monocytes/100 WBC (Bld) 9.0 % Normal 1.7-12.0 [facility] Comment on above: Performed By: #### C BC ####[facility] [address] [place], [place] [address]DrCarol Mayo NEUT # 6.4 103/ul Normal 1.4-6.5 [facility] Comment on above: Performed By: #### C BC ####[facility] [address] [place], [place] [address]DrCarol Mayo Neutrophils/100 WBC (Bld) 78.5 % Critically high 43.0-75.0 [facility] Comment on above: Performed By: #### C BC ####[facility] [address] [place], [place] [address]DrCarol Mayo Platelet mean volume (Bld) [Entitic vol] 9.9 fL Normal 9.5-13.5 [facility] Comment on above: Performed By: #### C BC ####[facility] [address] [place], [place] [address]DrCarol Mayo PLT 152 103/ul Normal 150-450 [facility] Comment on above: Performed By: #### C BC ####[facility] [address] [place], [place] [address]FpCarol Mayo RBC 3.97 106/ul Critically low 4.70-6.10 [facility] Comment on above: Performed By: #### C BC ####[facility] [address] [place], [place] [address]HyCarol Mayo WBC 8.1 103/ul Normal 4.0-11.0 [facility] Comment on above: Performed By: #### C BC ####[facility] [address] [place], [place] [address] HEAD WO CONon 09-18-2021 CT [...] SANDY DÍAZ Date: 2021-09-18 15:44 Normal [facility] Covid-19 PCR (CVDTB)on 08-24 SARS-CoV-2 (COVID-19) RNA GARY+probe Ql (Unsp spec) Not detected Normal NOT DETECTED [facility] Comment on above: Result Comment: When [...] for this test is supported by the [place] of Health and Human Service's declaration that [...] longer be used). Performed By: #### C VDTB ####[facility] [address] [place], [place] [address]DrCarol Mayo PROF CHEM 8 (BAS METB)on Anion gap [Moles/Vol] 12.4 mmol/L Normal [facility] Comment on above: Performed By: #### B MP ####[facility] [address] [place], [place] [address]Dr. Guille Mayo Calcium [Mass/Vol] 8.7 mg/dL Normal 8.5-10.[address] [facility] Comment on above: Performed By: #### B MP ####[facility] [address] [place], [place] [address]Dr. Guille Mayo Chloride [Moles/Vol] 107 mmol/L Normal 98-[address] [facility] Comment on above: Performed By: #### B MP ####[facility] [address] [place], [place] [address]Dr. Guille Mayo CO2 [Moles/Vol] 28.0 mmol/L Normal 21.0-32.0 [facility] Comment on above: Performed By: #### B MP ####[facility] [address] [place], [place] [address]Dr. Guille Mayo Creatinine [Mass/Vol] 1.45 mg/dL Critically high 0.70-1.[address] [facility] Comment on above: Performed By: #### B MP ####[facility] [address] [place], [place] [address]Dr. Guille Mayo EGFR-AF FRENCH >60 Normal >=60 [facility] Comment on above: Performed By: #### B MP ####[facility] [address] [place], [place] [address]Yk. Guille Mayo EGFR-NON AF FRENCH 51 mL/min/1.73m2 Critically low >=60 [facility] Comment on above: Performed By: #### B MP ####[facility] [address] [place] [address]Dr. Guille Mayo Glucose [Mass/Vol] 87 mg/dL Normal 74-[address] [facility] Comment on above: Performed By: #### B MP ####[facility] [address] [place] [address]Dr. Guille Mayo Potassium [Moles/Vol] 4.4 mmol/L Normal 3.5-5.[address] [facility] Comment on above: Performed By: #### B MP ####[facility] [address] [place] [address]Dr. Guille Mayo Sodium [Moles/Vol] 143 mmol/L Normal 136-[address] [facility] Comment on above: Performed By: #### B MP ####[facility] [address] [place] [address]Dr. Guille Mayo Urea nitrogen [Mass/Vol] 24.0 mg/dL Critically high 7.0-18.[address] [facility] Comment on above: Performed By: #### B MP ####[facility] [address] [place] [address]Dr. Guille Mayo Urea nitrogen/Creatinine [Mass ratio] 16.6 mg/mg Normal [facility] Comment on above: Performed By: #### B MP ####[facility] [address] [place] [address]Dr. Guille Mayo XR CHEST 1 Von 09-18-2021 [...] by: SANDY DÍAZ Date: 2021-09-18 15:[address] [facility] CT CHEST WO CONon 08-02-2021 CT [...] by: NORMA ROSS Date: 2021-08-02 08:[address] [facility] XR DEXA BONE DENSITYon 07-31 XR [...] NORMA ROSS Date: 2021-07-31 16:14 Normal [facility] Anesthesia Attestationon [employer] Authentication Interface Message Text Anesthesia Attestation ATTESTATION OF INFORMED CONSENT FOR ANESTHESIA Anesthesia options were discussed with the patient and/or legal in store marketing representative. The risks, benefits and alternatives were reviewed. Questions regarding anesthesia were answered. Patient and/or legal in store marketing representative knows such anesthetics and procedures may be performed by Resident physicians, Certified Anesthesiologist Assistants, or Certified Nurse Anesthetists under the supervision of a physician. The patient /or the patient's legal in store marketing representative agree with the plan for anesthesia. Normal [facility] Anesthesia Postprocedure Zo simmons 01-25-2021 [employer] Authentication Interface Message Text Anesthesia Postoperative Assessment: [...] ANESTHESIA COMPLICATIONS: No complications documented. Normal [facility] Anesthesia Transfer Of Careo n 01-25-2021 [employer] Authentication Interface Message Text Patient taken to [...] Simi Edwards DDS Anesthesiologist: Jero Peralta MD Warehouse Team Member: Anson Schwartz MD DENTAL RESTORATIONS (Bilateral ) [...] 22 gauge Right Hand (Active) Site Assessment WN 01/25/21 0954 Airway Insertion Details [REMOVED] Advanced [...] Secured via: Taped 01/25/21 1056 Site Assessment WN 01/25/21 1056 All non-working IVs have been [...] was received. Anson Schwartz MD Normal [facility] Blood Attestationon 01-26-20 [employer] Representative Authentication Interface Message Text Blood Attestation ATTESTATION OF INFORMED CONSENT FOR BLOOD The transfusion of blood and/or blood components were discussed with the patient and/or legal in store marketing representative. The risks, benefits and alternatives were reviewed. Questions regarding blood transfusions were answered. The patient /or the patient's legal in store marketing representative agree with the plan for transfusion of blood and/or blood components. 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 Procedures: Full mouth X-ray 49246 Exam 56405 Cleaning 04025 Hoahaoism 53942 Fluoride 56598 Excisional biopsy [id number] No data filed Surgeon(s): Surgeon(s): Simi Edwards DDS Staff: Derrick Boat Leverman Nurse: Deborah Chapman RN; Crystal Anderson RN Cementing Machine Operator: Carolyn López DDS Anesthesia: General Anesthesiologist: Jero Peralta MD Warehouse Team Member: Anson Schwartz MD Specimen(s): ID Type Source [...] López DDS 01/25/2021 12:11 PM Normal [facility] OP Noteon 01-25-2021 [employer]ofing Sales Representative Authentication Interface Message Text Surgical Case Number Data Unavailable Operating Room Data Unavailable Preoperative Diagnosis(es): Dental caries [046908] Autism spectrum disorder F84.0 Moderate intellectual disability F79 Seizure disorder G40.89 Postoperative Diagnosis(es): Autism spectrum disorder F84.0 Moderate intellectual disability F79 Seizure disorder G40.89 Dental caries [821874] 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 phupitk-fvhrjqtayr-j cellular pertussis (BOOSTRIX) 5-2.5-18.5 LF-MCG/0.5 injection Inject 0.5 mL into the muscle. Dictated by: Carolyn López DDS: Simi Joyner DDS was present for the critical portions of the procedure. 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 * ryolebc-fmrpoapwwg-r cellular pertussis (BOOSTRIX) 5-2.5-18.5 LF-MCG/0.5 injection Inject 0.5 mL into the muscle. Dictated by: Carolyn López DDS: Simi Joyner DDS was present for the critical portions of the procedure. Carolyn López DDS 01/25/2021 12:18 PM Normal [facility] Anesthesia Preprocedure Moshe pandya 01-24-2021 Roofing Sales Representative Authentication Interface Message Text ASA: 3 No [...] the history and physical examination. Normal [facility] Telephone Encounteron 2020 Roofing Sales Representative Authentication Interface Message Text Informed Consent for dental surgery AND Anesthesia consent obtained and scanned into [employer]. Scheduled for surgery 01/25/2021. Normal [facility] AUD - Progress Noteson 04-20 Protein mass conc Pt. referred for hearing evaluation by Dr. Espinoza, accompanied by Caitie, a direct care provider from [facility]. Pt. returns today after having ears cleaned out. Pt. denied ear pain at the time of testing. Completed evaluation, resorting to play audiometry for pure tone testing. See AUD-Assessments for Report/Results. DX CODES: H90.3 sensorineural hearing loss bilateral Normal [facility] Coding Summary.on 04-20-2018 Coding Summary. CODING DATE: 04/20/2018 FINAL [facility] STATUS: PAYOR: Medicare APC DESCRIPTION [...] CphT Date Saved: 04/20/2018 09:11 pm Normal [facility] AUD - Progress Noteson 03-31 Protein mass conc pt. referred for hearing evaluation by Muna Espinoza DO, accompanied by Saurabh velazquez direct care provider from [facility]. Otoscopy revealed cerumen in the right ear canal clocking view of the tympanic membrane, left ear with moderate cerumen but tympanic membrance visible. Discussed with Saurabh, did not complete evaluation today. He will return after bilateral ear cleaning. Called and spoke to [facility]/Nursing/Ainsley and advised her of the above. Normal [facility] Mohit 09-09-2016 Alanine aminotransferase (ALT) 35 U/L Normal <40 [facility] Soni 09-09-2016 Aspartate aminotransferase (AST) 26 U/L Normal 15-50 [facility] Albuminon 09-09-2016 Albumin 4.5 g/dL Normal 3.4-5.2 [facility] BUNon 09-09-2016 Urea nitrogen 21 mg/dL High 5-18 [facility] Creatinineon 09-09-2016 Creatinine 1.21 mg/dL High 0.50-1.20 [facility] Electrolyteson 09-09-2016 Chloride 107 mmol/L High 95-106 [facility] CO2 24 mmol/L Normal 24-35 [facility] Potassium molar conc 4.4 mmol/L Normal 3.7[facility]5.3 [facility]/L Normal 135-145 [facility] Vital Signs Date Time Vital Sign Value Performing Clinician Facility 02-09-2024 10:52-0500 Body height 172.7 cm Ana Maria Hsu [employer] Work Phone: [facility] 02-09-2024 10:52-0500 Body mass index (BMI) [Ratio] 28.13 kg/m2 Ana Maria Hsu [employer] Work Phone: [facility] 02-09-2024 10:52-0500 Body weight 83.92 kg Ana Maria Hsu [employer] Work Phone: [facility] 02-09-2024 10:52-0500 Diastolic blood pressure 90 mm[Hg] Ana Maria Hsu [employer] Work Phone: [facility] 02-09-2024 10:52-0500 Heart rate 69 /min Ana Maria Hsu [employer] Work Phone: [facility] 02-09-2024 10:52-0500 Systolic blood pressure 139 mm[Hg] Ana Maria Hsu [employer] Work Phone: [facility] 01-06-2022 12:30-0500 Body height 177.8 cm Cj Gayle Other [employer] Other 01-06-2022 12:30-0500 Body mass index (BMI) [Ratio] 27.69 kg/m2 Cj Gayle Other [employer] Other 01-06-2022 12:30-0500 Body weight 87.54 kg Cj Gayle Other [employer] Other 09-24-2021 17:03-0400 Diastolic blood pressure 100 mm[Hg] DO Go Espinoza Work Phone: [facility] 09-24-2021 17:03-0400 Heart rate 79 /min DO Go Espinoza Work Phone: [facility] 09-24-2021 17:03-0400 Respiratory rate 16 /min DO Go Espinoza Work Phone: [facility] 09-24-2021 17:03-0400 SaO2% (BldA) [Mass fraction] 94 % DO Go Espinoza Work Phone: [facility] 09-24-2021 17:03-0400 Systolic blood pressure 156 mm[Hg] DO Go Espinoza Work Phone: [facility] 09-24-2021 15:05-0400 Body temperature 97.1 [degF] DO Go Espinoza Work Phone: [facility] 09-24-2021 15:05-0400 Inhaled oxygen flow rate 6 L/min DO Go Espinoza Work Phone: [facility] 09-24-2021 14:22-0400 Body height 172.72 cm DO Go Espinoza Work Phone: [facility] 09-24-2021 14:22-0400 Body mass index (BMI) [Ratio] 29.6 kg/m2 DO Go Espinoza Work Phone: [facility] 09-24-2021 14:22-0400 Body weight 88.4 kg DO Go Espinoza Work Phone: [facility] 08-14-2021 10:45-0400 Body height 177.8 cm Nallely Parada Other [employer] Other 08-14-2021 10:45-0400 Body mass index (BMI) [Ratio] 27.55 kg/m2 Nallely Parada Other [employer] Other 08-14-2021 10:45-0400 Body temperature 97 [degF] Nallely Parada Other [employer] Other 08-14-2021 10:45-0400 Body weight 87.09 kg Nallely Parada Other [employer] Other 08-14-2021 10:45-0400 Diastolic blood pressure 84 mm[Hg] Nallely Parada Other [employer] Other 08-14-2021 10:45-0400 Respiratory rate 20 /min Nallely Parada Other [employer] Other 08-14-2021 10:45-0400 SaO2% (BldA) [Mass fraction] 98 % Nallely Parada Other [employer] Other 08-14-2021 10:45-0400 Systolic blood pressure 132 mm[Hg] Nallely Parada Other [employer] Other Encounters Encounter Date Encounter Type Care Provider Facility Start: 02-09-2024 End: 02-09-2024 Bamboo flowsheet Ana Maria Ashelychacha [employer] Work Phone: [facility] Start: 02-09-2024 End: 02-09-2024 Bamboo flowsheet Ana Maria Tianrosie [employer] Work Phone: [facility] Start: 02-09-2024 End: 02-09-2024 Office outpatient visit 25 minutes Ana Maria Ashleychacha [employer] [facility] Comment on above: Seizure disorder (CM S/HCC) (Primary Dx); Frequent falls; Mental disability (CMS/HCC); Tuberous sclerosis (CMS/HCC) Start: 02-09-2024 End: 02-09-2024 ambulatory ANA MARIA TIANRosie Not Available Start: 01-16-2024 End: 01-16-2024 Letter encounter [facility] Start: 11-10-2023 End: 11-10-2023 ambulatory MEGAN TSE Facility:[place] Start: 08-19-2023 End: 08-19-2023 Lab Drop off GO ESPINOZA [facility] Start: 08-19-2023 End: 08-19-2023 ambulatory GO ESPINOZA Facility:[facility] Start: 08-06-2023 End: 08-06-2023 ambulatory ANA MARIA HSU Not Available Start: 05-12-2023 End: 05-12-2023 ambulatory SUMEET SWANSON Facility:[place] Start: 02-25-2023 End: 02-25-2023 Lab Drop off GO ESPINOZA [facility] Start: 02-25-2023 End: 02-25-2023 ambulatory GO ESPINOZA Facility:[facility] Start: 11-12-2022 End: 11-12-2022 ambulatory GO ESPINOZA Facility:[facility] Start: 11-12-2022 End: 09-20-2023 Lab Drop off GO ESPINOZA [facility] Start: 05-27-2022 End: 05-28-[address] GO ESPINOZA Facility:[facility] Start: 04-24-2022 Letter encounter Vadim freykeke Start: 04-11-2022 End: 04-12-[address] GO ESPINOZA Facility:[facility] Start: 04-10-2022 End: 04-11-[address] GO ESPINOZA Facility:[facility] Start: 04-09-2022 Telephone encounter Nallely Parada [facility] Start: 04-09-2022 End: 04-09-2022 ambulatory Go Espinoza Facility:[facility] Start: 03-12-2022 End: 03-12-2022 ambulatory Go Espinoza Facility:[facility] Start: 03-12-2022 End: 03-12-2022 ambulatory DO Go Espinoza Work Phone: [facility] Work Phone: Start: 03-12-2022 End: 03-12-2022 Patient encounter procedure DO Go Espinoza Work Phone: [facility] Work Phone: Start: 03-11-2022 End: 03-12-[address] GO ESPINOZA Facility:[facility] Start: 02-06-2022 End: 02-06-2022 ambulatory Nallely Parada Other [employer] Other Start: 02-06-2022 Telephone encounter Nallely Parada [facility] Start: 01-07-2022 End: 01-07-2022 ambulatory Cj Gayle Other [employer] Other Start: 01-07-2022 Telephone encounter Cj Gayle [facility] Start: 01-06-2022 Postop follow up vis it related to original px Cj Gayle [facility] Start: 01-06-2022 End: 01-06-2022 ambulatory Cj A Nalini Facility:[facility] Start: 01-06-2022 End: 01-06-2022 ambulatory DO Go Espinoza Work Phone: [facility] Work Phone: Start: 01-06-2022 End: 01-06-2022 Patient encounter procedure DO Go Espinoza Work Phone: [facility] Start: 12-04-2021 End: 12-06-2021 ambulatory UNKNOWN PROVIDER Facility:[facility] Start: 12-04-2021 End: 12-06-2021 Patient encounter procedure Ly Redmond PÉREZ Work Phone: [facility] Start: 11-22-2021 Postop follow up vis it related to original px Cj Nalini [facility] Start: 11-22-2021 End: 11-22-2021 ambulatory Cj A Nalini [facility] [employer] Other Start: 11-22-2021 End: 11-22-2021 Patient encounter procedure DO Go Espinoza Work Phone: [facility] Start: 10-16-2021 Postop follow up vis it related to original px Cj Nalini [facility] Start: 10-16-2021 End: 10-16-2021 ambulatory Cj A Nalini [facility] [employer] Other Start: 10-16-2021 End: 10-16-2021 Patient encounter procedure DO Go Espinoza Work Phone: [facility] Start: 09-24-2021 End: 09-24-2021 ambulatory Cj A Nalini Facility:[facility] Start: 09-24-2021 End: 09-24-2021 Admission to same day surgery center DO Go Espinoza Work Phone: [facility] [place] Start: 09-23-2021 End: 09-23-2021 ambulatory Cj Gayle Facility:[facility] Start: 09-23-2021 End: 09-23-2021 Patient encounter procedure DO Go Espinoza Work Phone: [facility] Start: 09-18-2021 End: 09-18-2021 ambulatory TRAN [place] Facility:[facility] Start: 08-14-2021 End: 08-14-2021 ambulatory Nallely Parada Other [employer] Other Start: 08-14-2021 Office outpatient ne w 45 minutes Nallely Parada [facility] Start: 08-01-2021 End: 08-02-[address] GO ESPINOZA Facility:[facility] Start: 07-31-2021 End: 08-01-[address] GO ESPINOZA Facility:[facility] Start: 01-25-2021 End: 01-26-2021 ambulatory SIMI MEADOWS Facility:[facility] Start: 01-25-2021 ambulatory UNKNOWN PROVIDER Facili ty:[facility] Start: 09-09-2016 End: 09-09-2016 Ambulatory Robbi PETERSEN [facility] Procedures Date Procedure Procedure Detail Performing Clinician Start: 01-06-2022 X-ray of right ankle DO Go Espinoza Work Phone: Start: 11-22-2021 X-ray of right ankle DO Go Espinoza Work Phone: Start: 10-16-2021 X-ray of right ankle DO Go Espinoza Work Phone: Start: 09-24-2021 X-ray of right ankle DO Go Espinoza Work Phone: Start: 09-24-2021 Open reduction of fracture with internal fixation DO Go Escaleraring Work Phone: Plan of Treatment Date Care Activity Detail Author Start: 02-12-2026 Screening for malign ant neoplasm of colon [facility] Start: 10-10-2025 Lipid panel [facility] Start: 08-04-2024 End: 08-04-2024 Patient encounter procedure 08/04/2024 11:00 AM EDT Office Visit [facility] [address] [place] [id number] Ana Maria Hsu, [employer] [address] [place], [place] [facility] Start: 02-09-2024 End: 02-09-2024 Patient encounter procedure 02/09/2024 10:40 AM EST Office Visit [facility] [address] [place] [address] Ana Maria Hsu, [employer] [address] [place], [place] Arrived [facility] Comment on above: Arrived Start: 10-25-2023 COVID-19 Vaccine ( season) COVID-19 Vaccine ( season) [facility] Start: 10-25-2023 Influenza vaccination Influenza Vacc ine (#1) [facility] Start: 11-23-2021 Influenza vaccination Influenza Vacc ine (#1) [facility] Start: 10-16-2021 X-ray of right ankle XR ankle RT min 3V* [facility] Start: 10-16-2021 End: 10-16-2021 Patient encounter procedure Departed Clinical [facility] Start: 09-24-2021 [facility] Work Phone: Start: 09-24-2021 [facility] Work Phone: Start: 08-21-2021 COVID-19 Vaccine (5 - Booster for Pfizer series) COVID-19 Vaccine (5 - Booster for Pfizer series) [facility] Start: 01-10-2018 Measurement of occul t blood in single stool specimen FIT [facility] Start: 01-10-2018 Screening for malign ant neoplasm of colon CRC Screening [facility] Start: 11-18-2018 Shingles (RZV) Vacci ne (1 of 2) Shingles (RZV) Vaccine (1 of 2) [facility] Start: 01-10-2013 Screening for malign ant neoplasm of colon [facility] Start: 01-10-2003 [facility]id [facility] Start: 02-23-1997 Annual wellness visit Annual W ellness Visit (G0438) [facility] Start: 01-10-1987 Hepatitis A (HAV) Vaccine (optional start 19+ years) Hepatitis A (HAV) Vaccine (optional start 19+ years) [facility] Start: 01-10-1987 Hepatitis B vaccination Hepati tis B (HBV) Vaccine (1 of 3 - 19+ 3-dose series) [facility] Start: 01-10-1986 Hepatitis C screening Hepatitis C An tibody [facility] Start: 01-10-1986 Tetanus + diphtheria + acellular pertussis vaccine (product) Tdap Booster [facility] Start: 01-10-1983 HIV screening HIV Test [facility] Start: 1970 Medicare Annual Wellness (AWV) Medicare Annual Wellness (AWV) [facility] Start: 1970 Screening for malign ant neoplasm of colon [facility] Patient referral [facility] Work Phone: Immunizations Immunization Date Immunization Notes Care Provider Zeb gusman 12-10-2022 influenza virus vaccine, unspecified formulation Ana Maria Hsu [employer] Work Phone: [facility] 06-26-2021 Pfizer (12+ yrs) SARS-COV-2 (COVID-19) vaccine, mRNA, spike protein, LNP, pres. free, 30 mcg/0.3mL dose, syeda-sucrose (ZEU=162) Ly Ruy [facility] Work Phone: [facility] 12-19-2020 COVID-19 Vaccine Pfi zer - Documentation Purposes Only Nallely Parada Other [employer] Other 12-19-2020 influenza, injectabl e, quadrivalent, preservative free Ly Ruy [facility] Work Phone: [facility] 12-19-2020 influenza virus vaccine, unspecified formulation Ly Ruy [facility] Work Phone: [facility] 03-27-2020 COVID-19 Vaccine Pfi zer - Documentation Purposes Only Nallely Parada Other [facility] [employer] Other 03-06-2020 COVID-19 Vaccine Pfi zer - Documentation Purposes Only Nallely Parada Other [facility] [employer] Other 11-30-2019 influenza, injectabl e, quadrivalent, preservative free Ly Ruy [facility] Work Phone: [facility] 12-17-2018 influenza, injectabl e, quadrivalent, preservative free Ly Ruy [facility] Work Phone: [facility] 12-02-2017 influenza, injectabl e, quadrivalent, preservative free Ly Ruy [facility] Work Phone: [facility] 01-06-2017 influenza, injectabl e, quadrivalent, contains preservative Ly Ruy [facility] Work Phone: [facility] 07-12-2015 tetanus and diphther ia toxoids, adsorbed, preservative free, for adult use (5 Lf of tetanus toxoid and 2 Lf of diphtheria toxoid) Ly Ruy [facility] Work Phone: [facility] 12-14-2014 influenza, injectabl e, quadrivalent, preservative free Ly Ruy [facility] Work Phone: [facility] 01-10-2009 novel [id number], preservative-free, injectable Ly Ruy [facility] Work Phone: [facility] 01-07-2008 influenza virus vaccine, whole virus Ly Ruy [facility] Work Phone: [facility] 12-08-2006 influenza virus vaccine, whole virus Ly Ruy [facility] Work Phone: [facility] 06-25-2005 tetanus and diphther ia toxoids, adsorbed, preservative free, for adult use (5 Lf of tetanus toxoid and 2 Lf of diphtheria toxoid) Lycatalina Redmond [facility] Work Phone: [facility] diphtheria, tetanus toxoids and acellular pertussis vaccine, unspecified formulation Lyjosé miguel Redmond [facility] Work Phone: [facility] lohprqq-ofwvtatgos-w shabnam lular pertussis (BOOSTRIX) 5-2.5-18.5 LF-MCG/0.5 injection [facility] Payers Date Payer Category Payer Self-pay [id number] 2019 Dental --Stand Alone DENTAL-MEDI CAID [id number] 2019 Medicaid [id number]. [id number] 1996 Medicare [id number] 1.13.56.2.7. [id number] 1996 Medicare FFS MEDICARE [id number]. [id number] 1968 Unknown [id number] 2.16.840.1.367965.3.579.2.7 32 1968 Unknown [id number] 2.16.840.1.290741.3.579.2.7 32 1968 Unknown [id number] 2.16.840.1.295784.3.579.2.7 32 1968 Unknown [id number] 2.16.840.1.881192.3.579.2.5 93 1968 Unknown [id number] 2.16.840.1.288934.3.579.2.5 93 1968 Unknown [id number] 2.16.840.1.471808.3.579.2.5 93 1968 Unknown [id number] 2.16.840.1.704467.3.579.2.5 93 1968 Unknown [id number] 2.16.840.1.052872.3.579.2.7 27 1968 Unknown [id number] 2.16.840.1.364916.3.579.2.7 27 1968 Unknown [id number] 2.16.840.1.147278.3.579.2.7 27 1968 Unknown [id number] 2.16.840.1.142441.3.579.2.1 259 1968 Unknown [id number] 2.16.840.1.026601.3.579.2.1 259 1959 Medicaid [id number] 2.16.840.1.058083.19 1959 Medicare [id number] 2.16.840.1.024622.19 Medicare [id number] Unknown [employer] [id number] Unknown [id number] 2.16.840.1.332944.3.579.2.5 31 Unknown [id number] 2.16.840.1.706281.3.579.2.5 31 Unknown [id number] 2.16.840.1.086271.3.579.2.5 31 Unknown [id number] 2.16.840.1.301648.3.579.2.5 31 Unknown [id number] 2.16.840.1.719848.3.579.2.5 31 Unknown [id number] 2.16.840.1.333297.3.579.2.5 31 Unknown [id number] 2.16.840.1.430441.3.579.2.5 31 Unknown [id number] 2.16.840.1.915234.3.579.2.5 93 Unknown [id number] 2.16.840.1.862608.3.579.2.5 93 Unknown [id number] 2.16.840.1.126556.3.579.2.5 93 Social History Date Type Detail Facility Start: 08-06-2023 End: 02-09-2024 Sex Assigned At [facility] Start: 09-24-2021 End: 02-05-2023 Tobacco smoking status MAIS Never smoked tobacco (finding) [facility] Start: 1970 Sex Assigned At Male [facility] Tobacco smoking status [facility] Tobacco smoking consumption unknown [facility] Start: 1970 Sex Assigned At Not on file [facility] Tobacco smoking status No Smoking Status Entered [facility] Start: 03-01-2019 Sex Male (finding) [facility] Start: 02-05-2023 Tobacco use and exposure Smokeless tobacco non-user [facility] Start: 08-06-2023 End: 02-09-2024 Alcoholic beverage intake Lifetime non-drinker (finding) [facility] Start: 08-06-2023 End: 02-09-2024 History of Social function [facility] NEGATED: Highlighted rowStart: NINF History of tobacco use Passive smoker [facility] Medical Equipment Procedure Code Equipment Code Equipment Origin al Text Equipment Identifier Dates ORIF, fracture, ankle CANCELLOUS COARSE 7.5CC FDA Start: 09-24-2021 ORIF, fracture, ankle Orthopaedic bone screw, non-bioabsorbable, non-sterile ()[id number] FDA Start: 09-24-2021 ORIF, fracture, ankle Orthopaedic bone screw, non-bioabsorbable, non-sterile ()[id number] FDA Start: 09-24-2021 ORIF, fracture, ankle Orthopaedic fixation plate, non-bioabsorbable, sterile ()[id number] FDA Start: 09-24-2021 ORIF, fracture, ankle Orthopaedic bone screw, non-bioabsorbable, non-sterile ()[id number] FDA Start: 09-24-2021 ORIF, fracture, ankle Orthopaedic bone screw, non-bioabsorbable, non-sterile ()[id number] FDA Start: 09-24-2021 ORIF, fracture, ankle Orthopaedic bone screw, non-bioabsorbable, non-sterile ()[id number] FDA Start: 09-24-2021 ORIF, fracture, ankle Orthopaedic bone screw, non-bioabsorbable, non-sterile ()[id number] FDA Start: 09-24-2021 ORIF, fracture, ankle CANCELLOUS COARSE 7.5CC FDA Start: 09-24-2021 ORIF, fracture, ankle CANCELLOUS COARSE 7.5CC FDA Start: 09-24-2021 ORIF, fracture, ankle CANCELLOUS COARSE 7.5CC FDA Start: 09-24-2021 ORIF, fracture, ankle CANCELLOUS COARSE 7.5CC FDA Start: 09-24-2021 Goals Date Patient Goal Desired Activity /State Clinical Notes 01-10-2021 to 11-10-2023 Note Date & Type Note Facility 11-10-2023 Note HNO ID: [id number] Author: SUMEET CALI MD Service: ? Author [...] visit. Either the patient or their legal in store marketing representative has been informed of the risks [...] request it faxed to them. Fax number: [phone] (direct fax). Risks and benefits of the [...] anxiety, (10-14) moderate anxiety, (15-21) severe anxiety Colman Cognitive Assessment (MoCA) No data to display [...] evening, and 3 tablets at bedtime 0 pdzfznk-blfwcppia-yodfgpx D3 (OYSTER SHELL CALCIUM-VITAMIN D) 500 mg(1,250mg) [...] daily. cloNIDine 0.1 (more content not included)... [facility] 08-19-2023 Evaluation + Plan note Diagnostic Tests QyrylkkImgN1o 08/19/23T3 Free 08/19/23Keppra Lvl 08/19/23Lamotrigine Level 08/19/23 [facility] 05-12-2023 Note HNO ID: [id number] Author: SUMEET CALI MD Service: ? Author [...] visit. Either the patient or their legal in store marketing representative has been informed of the risks [...] Today, is seen with care team and Winston . His mother is also present virtually. [...] anxiety, (10-14) moderate anxiety, (15-21) severe anxiety Colman Cognitive Assessment (MoCA) No data to display [...] evening, and 3 tablets at bedtime 0 htaxsnt-dkcgweovl-iinukqd D3 (OYSTER SHELL CALCIUM-VITAMIN D) 500 mg(1,250mg) [...] PO tid 0 (more content not included)... [facility] 02-25-2023 Evaluation + Plan note Diagnostic Tests PendingT3 Free 02/25/23 [facility] 11-12-2022 Evaluation + Plan note Diagnostic Tests PendingPSA Screen, Total 11/12/22 [facility] 01-06-2022 Evaluation note Encounter Date Diagnosis Assessment Notes Dec, Displaced fracture of lateral malleolus of right fibula, subsequent encounter for closed fracture with routine healing (ICD-10 - S82.61XD) Alethea is here today for follow-up about 12 weeks s/p right ankle ORIF. He is doing well. He is currently residing at [facility]. There is no complaints overall. [...] Other specified postprocedural states (ICD-10 - Z98.890) [employer] Other 10-12-2022 History of Present illness Narrative* Simi Edwards DDS - 12/04/2021 11:03 AM EDT ----- Saturday, December 04, 2021 at 11:22:04 AM ----- ----- Provider: [id number] - Cris Graham -- Clinic: [place] ----- [facility], Pt is ready for tx. Pt presented with caries Radiograph taken today: none Discussed the medical necessity of the problem with the pt. Instructions given to pt. Caregiver understood the situation and is okay with medications for today. Pt will come back shouldthings get worse. Guardianship: PARENTS - Nabila (MarlinGucci Lei [address] [place] [address] / Email: [email or web address] Communicated with caregiver that the pt was placed on the OR list and we will call with appt. Limited exam completed by Dr. Noel STEPHENS. OR ----- Signed on Saturday, December 04, 2021 at 11:51:43 AM ----- ----- Provider: [id number] Tucker Myers DDS -- Clinic: [place] ----- documented in this [id number] Evaluation note* Encounter Date Diagnosis Assessment Notes Treatment Notes Treatment Clinical Notes Oct, Displaced fracture of lateral malleolus of right fibula, subsequent encounter for closed fracture with routine healing (ICD-10 - S82.61XD) Alethea is here today for first follow-up 8 weeks s/p right ankle ORIF. He is doing well. He is currently residing at [facility]. There is no complaints overall. [...] fracture with routine healing (ICD-10 - S82.392D) [employer] Other 08-24-2022 Evaluation note* Encounter Date Diagnosis Assessment Notes Treatment Notes Treatment Clinical Notes Sep, Displaced fracture of lateral malleolus of right fibula, subsequent encounter for closed fracture with routine healing (ICD-10 - S82.61XD) Alethea is here today for first follow-up 3 weeks s/p right ankle ORIF. He is doing well. He is currently residing at [facility]. There is no complaints overall. [...] as documented in the electronic medical record. [employer] Other 08-24-2022 NoteCast material is in place limiting evaluation. Hardware fixation involving the distal fibula with[employer]ort [employer] Other 07-27-2022 NotePROCEDURE: XR TIB_FIB RT 2V [...] Electronically authenticated by: SANDY DÍAZ Date: 2021-09-18 17:14[facility]07-27-2022 NotePROCEDURE: XR ANKLE RT MIN 3 [...] Electronically authenticated by: SANDY DÍAZ Date: 2021-09-18 16:44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 I have personally seen and evaluated the patient, repeating narayanan portions. There is no significant interval change. Surgery is still indicated. Yes Consent reviewed and signed by patient/family: Yes Operative site verified and marked: site verified but not marked as not anatomically possible Carolyn López DDS 01/25/2021 9:50 AMThe [facility]11-18-2021 NotePatient is vaccinated for COVID-19: Pfizer on 03/06/2020 AND 03/27/2020. Patient does not require pre-op COVID testing per current guidelines.The ExtraFootie SystemEvaluation noteNo assessment information availableGeorgetown Behavioral Hospital Work Phone: Evaluation noteNo InformationNortGeisinger Jersey Shore Hospital [employer] Other Evaluation note* Diagnosis Seizure disorder (CMS/HCC)- Primary Unspecified epilepsy without mention of intractable epilepsy Frequent falls Mental disability (CMS/HCC) Unspecified mental retardation Tuberous sclerosis (CMS/HCC) Tuberous sclerosis documented in this encounter [facility] Narrative - Reported* Type Description Date Medical History Unspecified intellectual disabil ities Medical History autism Medical History ADHD Medical History Seizure Disorder Medical History tuberous Sclerosis [facility] [employer] Other History general Narrative - Reported* Type Description Date Medical History Unspecified intellectual disabil ities Medical History autism Medical History ADHD Medical History Seizure Disorder Medical History tuberous Sclerosis Surgical History ORIF RT lateral malleolus fx Hospitalization History see above [employer] Other Hospital course Narrative No data available for this section [facility] No data available for this section [facility] No data available for this section [facility] Summary Purpose Family History No Family History [...] section and content) DATE CREATED AUTHOR 08/19/2017 [facility] DATE CREATED AUTHOR AUTHOR'S ORGANIZ ATION 07/30/2018 [facility] DATE CREATED AUTHOR AUTHOR'S ORGANIZ ATION 12/15/2021 [facility] DATE CREATED AUTHOR AUTHOR'S ORGANIZ ATION 04/17/2022 [facility] DATE CREATED AUTHOR AUTHOR'S ORGANIZ ATION 06/01/2022 [facility] DATE CREATED AUTHOR AUTHOR'S ORGANIZ ATION 08/21/2023 [facility] DATE CREATED AUTHOR AUTHOR'S ORGANIZ ATION 08/22/2023 [facility] DATE CREATED AUTHOR AUTHOR'S ORGANIZ ATION 08/28/2023 [facility] DATE CREATED AUTHOR AUTHOR'S ORGANIZ ATION 09/10/2023 [facility] DATE CREATED AUTHOR AUTHOR'S ORGANIZ ATION 11/12/2023 [facility] DATE CREATED AUTHOR AUTHOR'S ORGANIZ ATION 02/12/2024 [facility] EPIC REASON FOR VISIT (unrecogniz ed section and content) Reason Comments Seizures Altered Mental Status Care Teams (unrecognized sec tion and content) Team Status: Inactive Member Role Status Dates Go Espinoza , Primary Care Provider Active Cj Gayle DO Attending Provider Active Team Status: Active Member Role Status Dates Go Espinoza , Primary Care Provider Active Team Status: Inactive Member Role Status Dates Go Espinoza , Primary Care Provider Active Nallely Parada MD Attending Provider Active Electric Lineman Relationship Specialty Start Date End Date Unallocated, Noms MD Marissa [address] [place] [id number] PCP - General Family Medicine 02/05/23 Electric Lineman Relationship Specialty Start Date End Date Go Espinoza MD [facility] [address] [place] [address] PCP - General Family Medicine 02/09/24 Sue Patrick DO [address] [place] [address] Referring Physician Neurology 02/09/24 Goals (unrecognized section and content) Goals may [...] BE BASED ON THE PRIMARY CLINICAL RECORDS. [facility]. provides no warranty or guarantee of the accuracy or completeness of information in this document.
[2024-03-17 07:39] LABS: Alanine Aminotransferase 40 U/L (16-63); Albumin Globulin Ratio 1.2; Albumin Level 3.7 g/dL (3.4-5.0); Alkaline Phosphatase 160 U/L (46-116); Anion Gap 11.4; Aspartate Amino Transferase 21 U/L (15-37); BUN Creatinine Ratio 14.2; Bilirubin Total 0.3 mg/dL (0.2-1.0); Calcium 8.4 mg/dL (8.5-10.1); Carbon Dioxide 27.7 mmol/L (21.0-32.0); Chloride 112 mmol/L (98-107); Estimated GFR (African America 49 (>=60 mL/min/1.73m^2); Estimated GFR (Non-African Ame 40 (>=60 mL/min/1.73m^2); Globulin 3.1 g/dL; Glucose 85 mg/dL (74-106); Potassium 5.1 mmol/L (3.5-5.1); Sodium 146 mmol/L (136-145); Thyroid Stimulating Hormone 0.027 uIU/mL (0.358-3.740); Total Protein 6.8 g/dL (6.4-8.2)
[2024-03-17 08:09] LABS: Free T4 0.67 ng/dL (0.76-1.46)
== END 2024-03-17 06:32 | disposition home or self-care (01) ==
LOC: LAB 06:33
PROVIDERS: PCP Family Medicine; Visit Provider Family Medicine
DX: E03.9 Hypothyroidism, unspecified (principal); Z79.899 Other long term (current) drug therapy; N18.30 Chronic kidney disease, stage 3 unspecified
CPT/HCPCS: 36415; 80053; 84439; 84443; 84481

== ENCOUNTER 2024-05-25 08:05 | Outpatient (OUT) | payer MEDICARE, MEDICAID, SELFPAY ==
--- NOTE | 2024-05-25 08:15 | MR_ITS ---
The [address] [address] Patient Name: ALETHEA LEI MRN: [id number] date: 1970 Sex: M Assigned Patient Location: MRI Current Patient Location: MRI Accession/Order Number: [id number] Exam Date: 05/25/2024 13:46 Report Date: 05/25/2024 14:09 At the request of: CHARISSA ESPINOZA DO Procedure: MR foot LT wo con MRI left forefoot Without contrast TECHNIQUE: Multiplanar T1 and T2-weighted imaging of the foot obtained without contrast. HISTORY: Left foot pain secondary to fall. Unable to bear weight. Bruising swelling of the left foot. COMPARISON:None Metallic artifact from fibular plate and screw fixation SKIN MARKER: None BONY ALIGNMENT: Adequate BONE INFILTRATION:None BONY LESION: None BONE MARROW EDEMA: Bone marrow edema identified in the lateral aspect of base of the first metatarsal. Bone marrow edema present in the base of the second metatarsal. Soft tissue edema identified between the first and second and third metatarsal bases. There may be consideration for Lisfranc injury. No significant displacement. In the lateral aspect of the cuboid there is a bone marrow edema. Nondisplaced fracture may be present. TENDONS: Intact INTRINSIC MUSCLES: Normal signal PLANTAR PLATE: Intact DELEON'S NEUROMA: None OSTEOMYELITIS No osteomyelitis SOFT TISSUES: Dorsal soft tissue edema present. MR/MR foot LT wo con Impression: Regions of bone marrow edema involving the base of the first and second metatarsals. Heterogeneous signal changes of the Lisfranc ligament which may correspond with injury to this region. No significant bony displacement identified. Continued concern may be further assessed with stress imaging or CT imaging. Additional region of bone marrow edema the lateral aspect of the cuboid. May correspond with a nondisplaced fracture. The dorsal soft tissue swelling likely related to trauma. Degenerative changes. No worrisome tendon abnormality. Impression dictated by: Geovanny Magallanes M.D.05/25/2024 2:09 PM Dictation Location: [facility] Electronically authenticated by: [id number] Y Date: 05/25/2024 14:09
--- OUTSIDE RECORDS SUMMARY | 2024-05-25 08:17 | XMS_ITS | CCD ---
Author Organization [facility]iniSyva Care Team Providers Care Security Systems Engineer Name Role Phone Robbi PETERSEN Unavailable Unavailable ESPINOZA, GO A Unavailable Unavailable ESPINOZA, GO A Unavailable Unavailable Chaban, Kamal Unavailable Cj Gayle Unavailable DO Go Espinoza A Primary Care Provider [phone] DO Cj Gayle Attending Provider PROVIDER, UNKNOWN Attending Unavailable PROVIDER, UNKNOWN Admitting Unavailable PROVIDER, UNKNOWN Admitting Unavailable PROVIDER, UNKNOWN Attending Unavailable SIMI EDWARDS Admitting Unavailable SIMI EDWARDS Attending Unavailable SIMI EDWARDS Referring Unavailable Unavailable Primary Care Provider Unavailabl e DO Go Espinoza A Primary Care Provider DO Cj Gayle A Attending Provider DO Go Espinoza A Primary Care Provider DO Cj Gayle A Attending Provider MD Nallely Parada Attending Provider [phone] Cj Gayle Attending Unavailable Espinoza, Go A [...] Consulting Unavailable SHEILA ., MARY Consulting Unavailable KRIT ., TRAN Consulting Unavailable ESPINOZA, DR GO [...] Ricci Consulting Unavailable ESPINOZAGO Primary Care Physician GO ESPINOZA Admitting Unavailable ESPINOZA, GO Attending Unavailable ESPINOZA, GO Attending Unavailable ESPINOZA, GO Admitting Unavailable ESPINOZA, GO Attending Unavailable ESPINOZA, GO Admitting Unavailable ESPINOZA, GO Attending Unavailable ESPINOZA, GO Admitting Unavailable MEGAN TSE Referring Unavailable SUMEET CALI Attending Unavailable ESPINOZAGO Primary Care Unavailab SUMEET Weiss Attending Unavailable ESPINOZAGO Primary Care Unavailab MEGAN Hanson Referring Unavailable Unallocated , Noms Provider Primary Care Provi jaki Go Espinoza MD Primary Care Provider Sue Patrick DO Unavailable GLENN FLORES Attending Unavailable GLENN FLORES Attending Unavailable GLENN FLORES Attending Unavailable GLENN FLORES Attending Unavailable ANA MARIA HSU Attending Unavailable ANA MARIA HSU Attending Unavailable Allergies Allergy Classification Reported Allergen(s) Allergy Type Date of Onset Reaction(s) Facility (1 source) PERTUSSIS VACCINE,FLUID; Translations: [PERTUSSIS VACCINE,FLUID] Propensity to adverse reactions to drug (disorder) 7 [facility] Repository (18 sources) PERTUSSIS VACCINES; Translations: [PERTUSSIS VACCINES] Propensity to adverse reactions to drug (disorder) 8 Unknown [facility] Repository (1 source) Pertussis Vaccine Drug Allergy 3 [facility] Repository (1 source) ARIPiprazole; Translations: [ARIPIPRAZOLE] Drug Allergy 8 [facility] Repository Medications Current Medications Medication Drug Class(es) Dates Sig (Normalized) Sig (Original) 8 hr acetaminophen 650 mg extended release oral tablet (14 sources) Start: 09-24-2021 take 650 mg by [...] 0 Active amLODIPine 5 mg oral tablet (8 sources) Dihydropyridine Calcium Channel Deena Start: 02-03-2024 [...] 0 Active atorvastatin 40 mg oral tablet (20 sources) HMG-CoA Reductase Inhibitor Start: 09-24-2021 take 1 tablet by mouth in the morning atorvastatin (Lipitor) 40 MG tablet Take 40 mg by mouth in the morning. 01/27/2023 Active benztropine mesylate 1 mg oral tablet (20 sources) Anticholinergic, Antihistamine Start: 09-24-2021 take 1 [...] mg / cholecalciferol 200 unt oral tablet (9 sources) Vitamin D Start: 01-27-2023 take 1 tablet by mouth in the morning, then take 1 tablet by mouth once at bedtime Calcium Carb-Cholecalciferol (Oyster Shell Calcium w/D) 500-5 MG-MCG tablet Take 1 tablet by mouth in the morning and 1 tablet before bedtime. 01/27/2023 Active cloNIDine hydrochloride 0.1 mg oral tablet (20 sources) Central alpha-2 Adrenergic Agonist Start: 09-24-2021 [...] 1 ml denosumab 60 mg/ml prefilled syringe (9 sources) RANK Ligand Inhibitor Start: 07-07-2023 Prolia 60 MG/ML solution prefilled syringe 07/07/2023 Active Dentifrices (BIOTENE DRY MOUTH DENTAL) (3 sources) Dentifrices (BIO TENE DRY MOUTH DENTAL) by Dental route. Active Dentifrices (BIO TENE DRY MOUTH DENTAL) by Dental route. 0 Active docusate sodium 100 mg oral capsule (9 sources) take 1 capsule by mouth three times daily docusate sodium (Colace) 100 MG capsule TAKE ONE CAPSULE BY MOUTH 3 TIMES DAILY Active eucalyptol 0.92 mg/ml / menthol 0.42 mg/ml / methyl salicylate 0.6 mg/ml / thymol 0.64 mg/ml mouthwash (9 sources) Start: 01-28-20 23 Mouthwashes (Biotene Dry Mouth) liquid TWICE A DAY SWISH 15ML FOR 30 SEC THEN SPIT 01/27/2023 Active fluocinonide 0.5 mg/ml topical solution (9 sources) Corticosteroid Start: 03-10-19 24 fluocinonide (Lidex) 0.05 % external solution 03/10/2023 Active haloperidol 5 mg oral tablet (20 sources) Typical Antipsychotic Start: 09-25-19 take 5 [...] BEDTIME Active levETIRAcetam 500 mg oral tablet (9 sources) Start: 01-27-2023 take 1 tablet by [...] Active loratadine 10 mg disintegrating oral tablet (9 sources) take 1 tablet by mouth once daily loratadine (Claritin Reditabs) 10 MG disintegrating tablet Take 10 mg by mouth Daily Active LORazepam 1 mg oral tablet (2 sources) Benzodiazepine Start: LORazepam 1 MG as directed before testing Orally once for 1 days Jan, Active losartan potassium 100 mg oral tablet (9 sources) Angiotensin 2 Receptor Deena Start: 023 take 1 tablet by mouth at bedtime losartan (Cozaar) 100 MG tablet Take 100 mg by mouth at bedtime 01/27/2023 Active Start: 01-27-2023 take 1 tablet by elba th at bedtime losartan (Cozaar) 50 MG tablet Take 50 mg by mouth at bedtime 01/27/2023 Active meloxicam 15 mg oral tablet (9 sources) Nonsteroidal Anti-inflammatory Drug Start: 01-27-2023 take 1 tablet by mouth once daily at bedtime meloxicam (Mobic) 15 MG tablet TAKE ONE TABLET BY MOUTH DAILY AT BEDTIME MOBIC 01/27/2023 Active Multiple Vitamin (Multivitamin) tablet (9 sources) Start: 01-27-2023 take 1 tablet by mouth in the morning Multiple Vitamin (Multivitamin) tablet Take 1 tablet by mouth in the morning. 01/27/2023 Active OXcarbazepine 600 mg oral tablet (20 sources) Anti-epileptic Agent Start: 09-24-2021 take 600 mg by mouth twice daily Oxcarbazepine Active 600 MG PO Twice daily September 23, 2021 11:00pm OXcarbazepine (T RILEPTAL ORAL) Take by mouth. Active OXcarbazepine (T RILEPTAL ORAL) Take by mouth. 0 Active PARoxetine hydrochloride 40 mg oral tablet (20 sources) Serotonin Reuptake Inhibitor Start: 09-24-2021 take 40 mg by mouth once daily Paroxetine Hcl Active 40 MG PO Daily September 23, 2021 11:00pm PARoxetine (Paxi l) 40 MG tablet Take 60 mg by mouth Daily Active Potassimin (7 sources) Potassimin Activ e potassium chloride 10 meq extended release oral capsule (17 sources) Start: 01-27-2023 take 1 capsule by [...] mouthwash (5 sources) Start: 09-24-2021 Saliva Substit [place] Combo No.9 (Biotene Dry Mouth Oral Rinse) mouthwash Active 5 ML PO As Directed September 23, 2021 11:00pm Start: 09-24-2021 Saliva Substit grand traverse Combo No.9 (Biotene Dry Mouth Oral Rinse) mouthwash Active 5 ML PO As Directed September 24, 2021 12:00am traMADol hydrochloride 50 mg oral tablet (14 sources) Opioid Agonist Start: 09-24-2021 take 50 mg by mouth every four hours Tramadol Active 50 MG PO Q4H 42 7 September 23, 2021 11:00pm triamcinolone acetonide 1 mg/ml topical cream (9 sources) Corticosteroid triamcinolone (Kenalog) 0.1 % cream Apply topically 2 (two) times a day Active Problems Active Problems Problem Classification Problem Date Documented Date Episodic/Chronic Attention-deficit, conduct, and disruptive behavior disorders (18 sources) Disruptive behavior disorder; 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, unspecified] 08-06-2023 Chronic Chronic kidney disease (1 source) Chronic kidney disease, unspecified; Translations: [CHRONIC KIDNEY DISEASE UNSPECIFIED] Onset: 03-17-2022 Chronic Developmental disorders (13 sources) Unspecified intellectual disabilities; Translations: [Intellectual disability] Onset: 01-31-2021 08-06-2023 Chronic Disorders usually diagnosed in infancy, childhood, or adolescence (2 sources) Autistic disorder; Translations: [AUTISTIC DISORDER] Onset: 08-01-2015 Chronic Epilepsy; convulsions (12 sources) Epilepsy, unspecified, not intractable, without status [...] FX] Onset: 08-01-2021 Chronic Other congenital anomalies (18 sources) Tuberous sclerosis syndrome; 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 Other congenital anomalies (1 source) Tuberous sclerosis Onset: 08-14-2021 Resolved: 08-14-2021 Chronic Other connective tissue disease (4 sources) Pain in right leg; Translations: [PAIN IN RIGHT LEG] Onset: 04-11-2022 Episodic Other connective tissue disease (9 sources) Myofascial pain syndrome; Translations: [Myalgia, other site] 08-06-2023 Episodic Other connective tissue disease (2 sources) Recurrent falls ; Translations: [Repeated falls] 02-09-2024 Episodic Other connective tissue disease (4 sources) Pain of toe of right foot; Translations: [Pain in right toe(s)] 04-15-2024 Episodic Other diseases of kidney and ureters (1 source) Other specified disorders of kidney and ureter; Translations: [OTHER SPEC DISORDERS KIDNEY URETER] Onset: 05-31-2022 Chronic Other diseases of veins and lymphatics (2 sources) Vascular insufficiency; Translations: [Venous insufficiency (chronic) (peripheral)] 05-18-2024 Episodic Other nervous system disorders (1 source) Unspecified abnormalities of gait and mobility; Translations: [UNS ABNORMALITIES GAIT AND MOBILITY] Onset: 04-16-2022 Episodic Other non-traumatic joint disorders (1 source) Stiffness of unspecified joint, not elsewhere classified; Translations: [STIFFNESS UNSPECIFIED JOINT NEC] Onset: 04-16-2022 Episodic Other skin disorders (4 sources) Ingrowing nail; Translations: [Ingrowing nail] 04-15-2024 Episodic Residual codes; unclassified (1 source) Other specified postprocedural states Episodic Skin and subcutaneous tissue infections (4 sources) Abscess of toe of right foot; Translations: [Cutaneous abscess of right foot] 04-15-2024 Episodic Spondylosis; intervertebral disc disorders; other back problems (9 sources) Spasm of back muscles; Translations: [Muscle spasm of back] 08-06-2023 Episodic Superficial injury; contusion (2 sources) Contusion of left foot; Translations: [Contusion of left foot, initial encounter] 05-18-2024 Episodic Thyroid disorders (5 sources) Hypothyroidism, unspecified; [...] 10-16-2021 Episodic Other aftercare (1 source) Other terminal manager (current) drug therapy; Translations: [OTH PRISON CURRENT DRUG THERAPY] Onset: 09-25-2021 Episodic Other liver diseases (9 sources) Alkaline phosphatase raised; Translations: [Abnormal levels [...] Free T3 [Mass/Vol] 1.8 pg/mL Low 2.0-4.4 [facility] Comment on above: Result Comment: Perf ormed at: [facility] [address] [id number] PhD Jarod Kumar Performed By: #### 2 [id number] #### [facility] [address] [place] [address] RhdI2bkn 08-20-2023 HbA1c (Bld) [Mass fraction] 5.1 % Normal <=5.9 [facility] Comment on above: Performed By: #### 7 [id number] #### [facility] [address] [place] [address] CBC w/Indiceson 08-19-2023 Erythrocyte distribution width (RBC) [Ratio] 13.2 % Normal 10.9-14.2 [facility] Comment on above: Performed By: #### 2 [id number] #### [facility] [address] [place] [address] Hematocrit (Bld) [Volume fraction] 39.3 % Normal 37.7-49.0 [facility] Comment on above: Performed By: #### 2 [id number] #### [facility] [address] [place] [address] Hemoglobin (Bld) [Mass/Vol] 13.0 g/dL Low 13.5-17.5 [facility] Comment on above: Performed By: #### 2 478901 #### [facility] [address] [place] [address] MCH (RBC) [Entitic mass] 33.1 pg Normal 27.0-34.0 [facility] Comment on above: Performed By: #### 2 686163 #### [facility] [address] [place] [address] MCHC (RBC) [Mass/Vol] 33.2 g/dL Normal 31.4-36.0 [facility] Comment on above: Performed By: #### 2 911208 #### [facility] [address] [place] [address] MCV (RBC) [Entitic vol] 99.7 fL Normal 80.0-100.0 [facility] Comment on above: Performed By: #### 2 [id number] #### [facility] [address] [place] [address] Platelet mean volume (Bld) [Entitic vol] 8.9 fL Normal 6.4-10.8 [facility] Comment on above: Performed By: #### 2 638188 #### [facility] [address] [place] [address] Platelets (Bld) [#/Vol] 156.0 E9/L Normal 150.0-500.0 [facility] Comment on above: Performed By: #### 2 688730 #### [facility] [address] [place] [address] RBC (Bld) [#/Vol] 3.9 E12/L Low 4.3-5.9 [facility] Comment on above: Performed By: #### 2 [id number] #### [facility] [address] [place] [address] RBC size Nom (Bld) NORMAL Invalid Interpretation Code [facility] Comment on above: Performed By: #### 2 [id number] #### [facility] [address] [place] [address] WBC corrected for nucl RBC Auto (Bld) [#/Vol] 5.3 E9/L Normal 4.0-11.0 [facility] Comment on above: Performed By: #### 2 195219 #### [facility] [address] [place] [address] CHEMISTRYOrdered By: SYSTEM SYSTEM on 08-19-2023 25-hydroxyvitamin [...] for this result was chemiluminescence using [employer]'s Access Hybritech PSA reagent. Protein [Mass/Vol] 6.9 [...] 08-19-2023 Albumin [Mass/Vol] 4.1 g/dL Normal 3.3-5.0 [facility] Comment on above: Performed By: #### 2 037061 #### [facility] [address] [place] [address] Albumin/Globulin (S) [Mass conc ratio] 1.5 Normal 1.1-2.2 [facility] Comment on above: Performed By: #### 2 741876 #### [facility] [address] [place] [address] ALP [Catalytic activity/Vol] 161 Int._Unit/L High 21-98 [facility] Comment on above: Performed By: #### 2 992718 #### [facility] [address] [place] [address] ALT No additional P-5'-P [Catalytic activity/Vol] 30 Int._Unit/L Normal 6-46 [facility] Comment on above: Performed By: #### 2 402018 #### [facility] [address] [place] [address] Anion gap [Moles/Vol] 10 mmol/L Normal 6-16 [facility] Comment on above: Performed By: #### 2 329093 #### [facility] [address] [place] [address] AST [Catalytic activity/Vol] 21 Int._Unit/L Normal 5-43 [facility] Comment on above: Performed By: #### 2 [id number] #### [facility] [address] [place] [address] Bilirubin [Mass/Vol] 0.4 mg/dL Normal 0.0-1.1 [facility] Comment on above: Performed By: #### 2 071727 #### [facility] [address] [place] [address] Calcium [Mass/Vol] 8.9 mg/dL Normal 8.9-11.1 [facility] Comment on above: Performed By: #### 2 338461 #### [facility] [address] [place] [address] Chloride [Moles/Vol] 113 mmol/L High 101-111 [facility] Comment on above: Performed By: #### 2 873553 #### [facility] [address] [place] [address] CO2 [Moles/Vol] 24 mmol/L Normal 21-31 [facility] Comment on above: Performed By: #### 2 054766 #### [facility] [address] [place] [address] Creatinine [Mass/Vol] 1.6 mg/dL High 0.5-1.3 [facility] Comment on above: Performed By: #### 2 766470 #### [facility] [address] [place] [address] Globulin (S) [Mass/Vol] 2.8 g/dL Normal 1.4-4.0 [facility] Comment on above: Performed By: #### 2 417344 #### [facility] [address] [place] [address] Glucose [Mass/Vol] 86 mg/dL Normal 55-199 [facility] Comment on above: Performed By: #### 2 441328 #### [facility] [address] [place] [address] Potassium [Moles/Vol] 4.8 mmol/L Normal 3.5-5.3 [facility] Comment on above: Performed By: #### 2 583822 #### [facility] [address] [place] [address] Protein [Mass/Vol] 6.9 g/dL Normal 6.0-7.8 [facility] Comment on above: Performed By: #### 2 383193 #### [facility] [address] [place] [address] Sodium [Moles/Vol] 142 mmol/L Normal 135-145 [facility] Comment on above: Performed By: #### 2 740785 #### [facility] [address] [place] [address] Urea nitrogen [Mass/Vol] 30 mg/dL High 5-21 [facility] Comment on above: Performed By: #### 2 151391 #### [facility] [address] [place] [address] Urea nitrogen/Creatinine [Mass ratio] 19 No Units Normal 10-20 [facility] Comment on above: Performed By: #### 2 342784 #### [facility] [address] [place] [address] Free T4on 08-19-2023 Free T4 [Mass/Vol] 0.56 ng/dL Low 0.58-1.64 [facility] Comment on above: Performed By: #### 2 368411 #### [facility] [address] [place] [address] HEMATOLOGYOrdered By: SYSTEM SYSTEM on 08-19-2023 Erythrocyte [...] 08-19-2023 Cholesterol [Mass/Vol] 108 mg/dL Low 120-200 [facility] Comment on above: Performed By: #### 2 216720 #### [facility] [address] [place] [address] Cholesterol in HDL [Mass/Vol] 34 mg/dL Invalid Interpretation Code [facility] Comment on above: Result Comment: '>= 60 LOW RISK' '<= 40 HIGH RISK' Performed By: #### 2 676898 #### [facility] [address] [place] [address] Cholesterol in LDL [Mass/Vol] 59 mg/dL Normal <=129 [facility] Comment on above: Performed By: #### 2 670374 #### [facility] [address] [place] [address] Cholesterol in VLDL [Mass/Vol] 19 mg/dL Normal 7-40 [facility] Comment on above: Performed By: #### 2 502724 #### [facility] [address] [place] [address] Triglyceride [Mass/Vol] 94 mg/dL Normal <=149 [facility] Comment on above: Performed By: #### 2 097366 #### [facility] [address] [place] [address] PSA Screen, Totalon 08-19-19 Prostate specific Ag [Mass/Vol] 0.4 ng/mL Normal 0.1-3.5 [facility] Comment on above: Result Comment: The concentration of PSA determined by different manufacturers can vary due to differences in assay methods and reagent specificity. Values obtained from different assay methods cannot be used interchangeably. The methodology used for this result was chemiluminescence using [employer] Access Hybritech PSA reagent. Performed By: #### 1 [id number] #### [facility] [address] [place] [address] Physician Orderon 08-19-2023 Physician Order [id number] 9#1.00TIFF Normal [facility] TSHon 08-19-2023 TSH Qn 0.10 m[IU]/L Low 0.34-5.60 [facility] Comment on above: Performed By: #### 2 244563 #### [facility] [address] [place] [id number] Vitamin D 25 Hydroxyon 08-18 25-hydroxyvitamin D3 [Mass/Vol] 42.7 ng/mL Normal 30.0-100.0 [facility] Comment on above: Performed By: #### 5 [id number] #### [facility] [address] [place] [address] eGFRon 08-19-2023 eGFR 50 mL/min/1.73 m2 Low >=59 [facility] Comment on above: Order Comment: Order added by Discern Expert. Performed By: #### 1 [id number] #### [facility] [address] [place] [address] CNPNon 05-15-2023 CNPN Telephone (PSYRMN) ALETHEA LEI ([id number]) 1970 M Date Time Provider Department 05/15/23 SUMEET CALI PSYRMN During your visit today, we recorded the following information about you: Mariana Fair 05/15/2023 2:56 PM Signed Lucretia Allison- patients mom called and stated that [facility] is not able to do an appt for patient with you? They told her if you had a form that you can send to them? She don't know the name of the form? The conversation was a bit confusing. 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 T3 Freeon 02-27-2023 Free T3 [Mass/Vol] 2.0 pg/mL Invalid Interpretation Code 2.0-4.4 [facility] Comment on above: Result Comment: Perf ormed at: [facility] [address], [place] [id number] PhD Jarod Kumar Performed By: #### 2 304114, 6032851, 5988978, 52500598, [id number], 9391813, 4460702, 3341060, 9753954, 7619115 ####[facility] [address] [place] [address] CBC w/Indiceson 02-25-2023 Erythrocyte distribution width (RBC) [Ratio] 13.2 % Normal 10.9-14.2 [facility] Comment on above: Performed By: #### 2 223366, 7233009, 0065676, 28444004, 319284144, 8443838, 6806669, 1500683, 1228770, 9396445 #### [facility] [address] [place] [address] Hematocrit (Bld) [Volume fraction] 40.6 % Normal 37.7-49.0 [facility] Comment on above: Performed By: #### 2 991787, 8072191, 8773342, 92185773, 346789906, 1744718, 0708047, 2842304, 1016172, 6561249 #### [facility] [address] [place] [address] Hemoglobin (Bld) [Mass/Vol] 13.4 g/dL Low 13.5-17.5 [facility] Comment on above: Performed By: #### 2 885872, 5242013, 6764479, 71215865, 896051294, 2762970, 0262587, 1102777, 6134957, 2170536 #### [facility] [address] [place] [address] MCH (RBC) [Entitic mass] 32.7 pg Normal 27.0-34.0 [facility] Comment on above: Performed By: #### 2 389574, 1142478, 2671740, 30759628, 351081661, 0661482, 4884366, 6035217, 6572861, 7478889 #### [facility] [address] [place] [address] MCHC (RBC) [Mass/Vol] 33.0 g/dL Normal 31.4-36.0 [facility] Comment on above: Performed By: #### 2 839323, 8142008, 6350756, 11199956, 901329156, 5512293, 7181111, 5911460, 3996816, 2557679 #### [facility] [address] [place] [address] MCV (RBC) [Entitic vol] 99.1 fL Normal 80.0-100.0 [facility] Comment on above: Performed By: #### 2 147366, 6402972, 2115712, 16409508, 727354445, 3562188, 2927133, 0832781, 2581313, 7581963 #### [facility] [address] [place] [address] Platelet mean volume (Bld) [Entitic vol] 9.6 fL Normal 6.4-10.8 [facility] Comment on above: Performed By: #### 2 568532, 4565062, 5599438, 56682811, 883673330, 2418423, 2393871, 2278275, 9324966, 2976799 #### [facility] [address] [place] [address] Platelets (Bld) [#/Vol] 170.0 E9/L Normal 150.0-500.0 [facility] Comment on above: Performed By: #### 2 493807, 8236176, 4447472, 87956906, 543697656, 7320539, 6870336, 7528973, 2698637, 5243673 #### [facility] [address] [place] [address] RBC (Bld) [#/Vol] 4.1 E12/L Low 4.3-5.9 [facility] Comment on above: Performed By: #### 2 969745, 8743574, 9121309, 08007939, 287736560, 2906180, 3338906, 1718420, 4443959, 7980551 #### [facility] [address] [place] [address] WBC corrected for nucl RBC Auto (Bld) [#/Vol] 4.4 E9/L Normal 4.0-11.0 [facility] Comment on above: Performed By: #### 2 755806, 8692085, 4997580, 20923883, 469967872, 5246781, 2484276, 3965053, 4901422, 5806798 #### [facility] [address] [place] [address] CHEMISTRYOrdered By: SYSTEM SYSTEM on 02-25-2023 Albumin [...] 02-25-2023 Albumin [Mass/Vol] 4.1 g/dL Normal 3.3-5.0 [facility] Comment on above: Performed By: #### 2 540001, 5253061, 2667710, 87941462, [id number], 0873924, 4795537, 1692858, 4124330, 9589128 #### [facility] [address] [place] [address] Albumin/Globulin [Mass ratio] 1.4 {ratio} Normal 1.1-2.2 [facility] Comment on above: Performed By: #### 2 422803, 3013627, 7180622, 25787090, 091404740, 4258460, 9340049, 4510163, 8125073, 5534496 #### [facility] [address] [place] [address] Alk Phos 158 Int._Unit/L High 21-98 [facility] Comment on above: Performed By: #### 2 921198, 7299669, 5445191, 80295855, 290057957, 2566344, 4881459, 4469352, 4187434, 6124819 #### [facility] [address] [place] [address] ALT 32 Int._Unit/L Normal 6-46 [facility] Comment on above: Performed By: #### 2 790460, 1757486, 7025534, 66940082, 116923884, 0909535, 4688898, 7533801, 0735875, 4747552 #### [facility] [address] [place] [address] Anion gap [Moles/Vol] 12 mmol/L Normal 6-16 [facility] Comment on above: Performed By: #### 2 196534, 7069494, 0768706, 17424799, 848607949, 0806637, 5839220, 5238676, 9914520, 6005175 #### [facility] [address] [place] [address] AST 25 Int._Unit/L Normal 5-43 [facility] Comment on above: Performed By: #### 2 527890, 6399010, 1364828, 61771770, 258567393, 9453186, 9295900, 7998568, 1633317, 2103806 #### [facility] [address] [place] [address] Bili Total 0.3 mg/dL Normal 0.0-1.1 [facility] Comment on above: Performed By: #### 2 448703, 9632612, 6256643, 13976548, 520233591, 7982827, 9505256, 5599150, 9884490, 3929615 #### [facility] [address] [place] [address] BUN/Creat Ratio 17 No Units Normal 10-20 [facility] Comment on above: Performed By: #### 2 492283, 3895852, 5469023, 57376247, 407954842, 8643917, 7055009, 3957666, 2000548, 5002050 #### [facility] [address] [place] [address] Calcium [Mass/Vol] 8.9 mg/dL Normal 8.9-11.1 [facility] Comment on above: Performed By: #### 2 812054, 2602961, 5529313, 35626949, 538081946, 1600787, 4852929, 9536645, 6533868, 2195547 #### [facility] [address] [place] [address] Chloride [Moles/Vol] 113 mmol/L High 101-111 [facility] Comment on above: Performed By: #### 2 020655, 8826779, 6569272, 24652523, 849044742, 6190779, 6162554, 6756297, 8094739, 0274251 #### [facility] [address] [place] [address] CO2 [Moles/Vol] 22 mmol/L Normal 21-31 [facility] Comment on above: Performed By: #### 2 428028, 3608794, 7920303, 64208829, 838954785, 4075406, 0182665, 0386159, 3277817, 8265025 #### [facility] [address] [place] [address] Creatinine [Mass/Vol] 1.5 mg/dL High 0.5-1.3 [facility] Comment on above: Performed By: #### 2 498560, 6167551, 3087260, 12177997, 893952691, 7845278, 5290645, 5210993, 9117323, 0774013 #### [facility] [address] [place] [address] Globulin (S) [Mass/Vol] 2.9 g/dL Normal 1.4-4.0 [facility] Comment on above: Performed By: #### 2 034381, 5831133, 8882961, 60253461, 272369867, 7640841, 6287586, 7356320, 4279171, 5210034 #### [facility] [address] [place] [address] Glucose [Mass/Vol] 90 mg/dL Normal 55-199 [facility] Comment on above: Performed By: #### 2 338149, 2537367, 4024490, 67956039, 357634219, 3294486, 1296817, 1947477, 9016854, 9428886 #### [facility] [address] [place] [address] Potassium [Moles/Vol] 4.8 mmol/L Normal 3.5-5.3 [facility] Comment on above: Performed By: #### 2 166681, 1251056, 4934530, 69479582, 970365561, 6335310, 3497622, 1080907, 7597278, 1593908 #### [facility] [address] [place] [address] Protein [Mass/Vol] 7.0 g/dL Normal 6.0-7.8 [facility] Comment on above: Performed By: #### 2 543456, 2517344, 4658567, 87935677, 920122735, 9892228, 7685273, 1989728, 0469978, 7299087 #### [facility] [address] [place] [address] Sodium [Moles/Vol] 142 mmol/L Normal 135-145 [facility] Comment on above: Performed By: #### 2 456842, 8134163, 5398105, 73833415, 451706471, 2232705, 9715376, 7889100, 9632311, 7482675 #### [facility] [address] [place] [address] Urea nitrogen [Mass/Vol] 26 mg/dL High 5-21 [facility] Comment on above: Performed By: #### 2 957520, 5770902, 0969994, 33519242, 417363085, 5643528, 3593695, 7745877, 7302328, 3451346 #### [facility] [address] [place] [address] Free T4on 02-25-2023 Free T4 [Mass/Vol] 0.66 ng/dL Normal 0.58-1.64 [facility] Comment on above: Performed By: #### 2 545051, 1148731, 6184384, 48271588, 646825136, 1815734, 0317987, 3405486, 2641630, 8513241 #### [facility] [address] [place] [address] HEMATOLOGYOrdered By: Clarence Srivastava on 02-25-2023 Erythrocyte distribution width (RBC) [Ratio] 13.2 % Normal 10.9 - 14.2 % [facility] HemeAutoSS Hematocrit (Bld) [Volume fraction] 40.6 % [...] Normal 4.0 - 11.0 E9/L FT HemeAutoSS Ironon 02-25-2023 Iron 130 microgram/dL Normal 35-153 [facility] Comment on above: Performed By: #### 2 385562, 4510303, 1836594, 81073358, 724422609, 3987345, 5921170, 0208469, 6799976, 3754285 #### [facility] [address] [place] [address] Lipid Panelon 02-25-2023 Cholesterol [Mass/Vol] 105 mg/dL Low 120-200 [facility] Comment on above: Performed By: #### 2 415610, 9579483, 2784397, 10589033, 781472394, 8441594, 2101146, 2731945, 7812742, 9207780 #### [facility] [address] [place] [address] Cholesterol in HDL [Mass/Vol] 40 mg/dL Invalid Interpretation Code [facility] Comment on above: Result Comment: '>= 60 LOW RISK' '<= 40 HIGH RISK' Performed By: #### 2 023391, 8110698, 6460118, 35801435, 693219076, 9221279, 9356881, 4648734, 1790426, 1870925 #### [facility] [address] [place] [address] Cholesterol in LDL [Mass/Vol] 54 mg/dL Normal <=129 [facility] Comment on above: Performed By: #### 2 857263, 5691637, 9280505, 71167793, 300235412, 6363878, 1457514, 3359478, 3996165, 6511037 #### [facility] [address] [place] [address] Cholesterol in VLDL [Mass/Vol] 16 mg/dL Normal 7-40 [facility] Comment on above: Performed By: #### 2 485918, 7003936, 8196373, 00663359, 611106907, 4280795, 9435708, 7327010, 4429868, 2422050 #### [facility] [address] [place] [address] Triglyceride [Mass/Vol] 81 mg/dL Normal <=149 [facility] Comment on above: Performed By: #### 2 580368, 1554457, 6755579, 64855082, 829793027, 8227826, 0065175, 4280039, 4723612, 8530335 #### [facility] [address] [place] [address] Physician Orderon 02-25-2023 Physician Order [id number] 5#1.00TIFF Normal [facility] TSHon 02-25-2023 TSH Qn 0.03 m[IU]/L Low 0.34-5.60 [facility] Comment on above: Performed By: #### 2 089083, 2698498, 0064601, 41264625, 628872636, 4245238, 2196640, 8008710, 7564408, 4137955 #### [facility] [address] [place] [address] Vit B12on 02-25-2023 Cobalamin (Vitamin B12) [Mass/Vol] 483 pg/mL Normal 50-1500 [facility] Comment on above: Performed By: #### 2 645432, 5855055, 5664926, 60001264, 856018179, 0401529, 7433589, 3911147, 0055267, 2837352 #### [facility] [address] [place] [address] Vitamin D 25 Hydroxyon 02-25 Vitamin D 25 Hydroxy 50.9 ng/mL Normal 30.0-100.0 [facility] Comment on above: Performed By: #### 2 644726, 6193669, 8049410, 52560255, 010683961, 7260386, 6916362, 2208951, 6993651, 4424095 ####[facility] [address] [place] [address] eGFRon 02-25-2023 eGFR 55 mL/min/1.73 m2 Low >=59 [facility] Comment on above: Order Comment: Order added by Discern Expert. Performed By: #### 2 366274, 0809630, 8036439, 73124508, 716550861, 9886921, 4266230, 1510537, 8771836, 5187270 #### [facility] [address] [place] [address] PSA Screen, Totalon 11-14-19 23 Prostate specific Ag [Mass/Vol] 0.5 ng/mL Normal 0.1-3.5 [facility] Comment on above: Result Comment: The concentration of PSA determined by different manufacturers can vary due to differences in assay methods and reagent specificity. Values obtained from different assay methods cannot be used interchangeably. The methodology used for this result was chemiluminescence using [employer] Hybritech PSA reagent. Performed By: #### 1 2603520 ####[facility] [address] [place] [address] Physician Orderon 11-12-2022 Physician Order [id number] 7#1.00CD:127 Normal [facility] US KIDNEYS BLADDERon 023 US KIDNEYS BLADDER [...] NORMA ROSS Date: 2022-05-27 08:52 Normal [facility] XR PELVIS 1_2 VIEWSon 2022 XR PELVIS [...] JONAH MAJANO Date: 2022-04-14 08:21 Normal [facility] XR HIP RT 2 3V WO PELVISon 0 04-10-2022 XR HIP RT 2 3V WO PELVIS EXAM: XR HIP RT. HISTORY: . Pain in right leg . COMPARISON: None. TECHNIQUE: 2 views FINDINGS: No fracture or dislocation of the hip is noted. Joint spaces well-maintained. Surrounding soft tissues are unremarkable. IMPRESSION: Negative right hip. Electronically authenticated by: NORAM FLORES Date: 2022-04-10 08:41 Normal [facility] Glucose Poct Glucometerson 0 04-09-2022 Commemt1 Normal [facility] Comment on above: Result Comment: Glu2 : WILL NOTIFY DR/RN PERFORMED BY: [place] [address] PATHOLOGIST [employer] CHRISTINE FERNÁNDEZ M.D. Performed By: #### G LULS #### Point of Care testing , Glucose [Mass/Vol] 58 mg/dL Off scale low Fir [facility] Comment on above: Result Comment: [place] Glucose Reference Range is dependent on time and content of last meal. Glucose of more than 200 mg/dL in a nonstressed, ambulatory subject supports the diagnosis of Diabetes Mellitus. Performed By: #### G LULS #### Point of Care testing , PET tumor init tx strat sb-m ton 04-09-2022 PET tumor init tx strat sb-mt [facility] [address] [place] [id number] Nuclear Medicine Report Signed Patient: Alethea Lei MR#: [id number] : 1970 Acct:[id number] Age/Sex: 52 / M ADM Date: 04/09/22 Loc: Room: Type: [facility] Attending Dr: Nallely Parada MD Copies [...] Guzman Jr., D.OCarol04/09/2022 1:09 PM Dictation Location: [place] [address] Transcribed By: [facility] 04/09/22 1309 Dictated By: Panda De Guzman Jr, DO 04/09/22 1259 Signed By: 04/09/22 1309 Normal [facility] Glucose Glucometer (BldC) [M ass/Vol]Ordered By: Nallely Parada on 03-12-2022 Glucose [Mass/Vol] 95 mg/dL [facility] Comment on above: Random Glucose Refer ence Range is dependent on time and content of last meal. Glucose of more than 200 mg/dL in a nonstressed, ambulatory subject supports the diagnosis of Diabetes Mellitus. Glucose Poct Glucometerson 0 03-12-2022 Glucose [Mass/Vol] 95 mg/dL Normal [facility] Comment on above: Result Comment: [place] Glucose Reference Range is dependent on time and content of last meal. Glucose of more than 200 mg/dL in a nonstressed, ambulatory subject supports the diagnosis of Diabetes Mellitus. PERFORMED BY: [facility] [address] [address] PATHOLOGIST [employer] CHRISTINE FERNÁNDEZ M.D. Performed By: #### G LULS #### Point of Care testing , CBC AUTO DIFFon 03-11-2022 BASO # 0.0 103/ul Normal 0.0-0.1 [facility] Comment on above: Performed By: #### C BC ####[facility] [address] [place], [place] [address]SsCarol Mayo Basophils/100 WBC (Bld) 0.6 % Normal 0.2-2.0 [facility] Comment on above: Performed By: #### C BC ####[facility] [address] [place], [place] [address]Dr. Guille Mayo EO # 0.2 103/ul Normal 0.0-0.7 [facility] Comment on above: Performed By: #### C BC ####[facility] [address] [place], [place] [address]Dr. Guille Mayo Eosinophils/100 WBC (Bld) 2.8 % Normal 0.9-7.0 [facility] Comment on above: Performed By: #### C BC ####[facility] [address] [place], [place] [address]Dr. Guille Mayo Erythrocyte distribution width (RBC) [Ratio] 12.6 % Normal 11.0-15.0 [facility] Comment on above: Performed By: #### C BC ####[facility] [address] [place], [place] [address]Dr. Guille Mayo Hematocrit (Bld) [Volume fraction] 40.4 % Critically low 42.0-54.0 [facility] Comment on above: Performed By: #### C BC ####[facility] [address] [place], [place] [address]Dr. Guille Mayo Hemoglobin (Bld) [Mass/Vol] 13.7 g/dL Critically low 14.0-18.0 [facility] Comment on above: Performed By: #### C BC ####[facility] [address] [place], [place] [address]Dr. Guille Mayo IG # 0.02 10e3/ul Normal 0.00-0.03 [facility] Comment on above: Performed By: #### C BC ####[facility] [address] [place], [place] [address]Dr. Guille Mayo IG % 0.4 % Normal 0.0-0.5 [facility] Comment on above: Performed By: #### C BC ####[facility] [address] [place], [place] [address]Dr. Guille Mayo LYMPH # 1.1 103/ul Critically low 1.2-3.8 [facility] Comment on above: Performed By: #### C BC ####[facility] [address] [place] [address]Dr. Guille Mayo Lymphocytes/100 WBC (Bld) 20.8 % Normal 20.5-60.0 [facility] Comment on above: Performed By: #### C BC ####[facility] [address] [place] [address]Dr. Guille Mayo MANUAL DIFF REQ NO Normal [facility] Comment on above: Performed By: #### C BC ####[facility] [address] [place] [address]Dr. Guille Mayo MCH (RBC) [Entitic mass] 32.3 pg Normal 25.9-34.0 [facility] Comment on above: Performed By: #### C BC ####[facility] [address] [place], [place] [address]Dr. Guille Mayo MCHC (RBC) [Mass/Vol] 33.9 g/dL Normal 29.9-35.2 [facility] Comment on above: Performed By: #### C BC ####[facility] [address] [place] [address]Dr. Guille Mayo MCV (RBC) [Entitic vol] 95.3 fL Critically high 80.0-94.0 [facility] Comment on above: Performed By: #### C BC ####[facility] [address] [place] [address]Dr. Guille Mayo MONO # 0.4 103/ul Normal 0.3-0.8 [facility] Comment on above: Performed By: #### C BC ####[facility] [address] [place] [address]Dr. Guille Mayo Monocytes/100 WBC (Bld) 7.4 % Normal 1.7-12.0 [facility] Comment on above: Performed By: #### C BC ####[facility] [address] [place], [place] [address]Dr. Guille Mayo NEUT # 3.7 103/ul Normal 1.4-6.5 [facility] Comment on above: Performed By: #### C BC ####[facility] [address] [place] [address]Dr. Guille Mayo Neutrophils/100 WBC (Bld) 68.0 % Normal 43.0-75.0 [facility] Comment on above: Performed By: #### C BC ####[facility] [address] [place] [address]Dr. Guille Mayo Platelet mean volume (Bld) [Entitic vol] 10.4 fL Normal 9.5-13.5 [facility] Comment on above: Performed By: #### C BC ####[facility] [address] [place] [address]Dr. Guille Gael PLT 133 103/ul Critically low 150-450 [facility] Comment on above: Performed By: #### C BC ####[facility] [address] [place] [address]Dr. Kylahizzy Gael RBC 4.24 106/ul Critically low 4.70-6.10 [facility] Comment on above: Performed By: #### C BC ####[facility] [address] [place] [address]Dr. Guille Mayo WBC 5.4 103/ul Normal 4.0-11.0 [facility] Comment on above: Performed By: #### C BC ####[facility] [address] [place] [address]DrCarol Mayo FREE T4on 03-11-2022 Free T4 [Mass/Vol] 0.68 ng/dL Critically low 0.76-1.46 [facility] Comment on above: Performed By: #### F T4 #### [facility] [address] [place] [address] Guille Mayo LIPID PROFILEon 03-11-2022 CHOL-HDL RATIO NORM SEE BELOW Normal [facility] Comment on above: Result Comment: 3.3 - 4.4 LOW RISK 4.4 - 7.1 AVERAGE RISK 7.1 - 11.0 MODERATE RISK >11.0 HIGH RISK Performed By: #### L IPID, TSH, CMP #### [facility] [address] [place] [address] Dr. Guille Mayo Cholesterol [Mass/Vol] 130 mg/dL Normal <=200 [facility] Comment on above: Performed By: #### L IPID, TSH, CMP #### [facility] [address] [place] [address] [address] Guille Mayo Cholesterol in HDL [Mass/Vol] 45 mg/dL Normal 40-60 [facility] Comment on above: Performed By: #### L IPID, TSH, CMP #### [facility] [address] [place] [address] Dr. Guille Mayo Cholesterol in LDL [Mass/Vol] 67.6 mg/dL Normal [facility] Comment on above: Performed By: #### L IPID, TSH, CMP #### [facility] [address] [place] [address] Dr. Guille Mayo Cholesterol.total/Cho lesterol in HDL [Mass ratio] 2.9 {ratio} Normal [facility] Comment on above: Performed By: #### L IPID, TSH, CMP #### [facility] [address] [place] [address] Dr. Guille Mayo HDL NORMAL > or = 60 mg/dl - LOW CARDIOVASCULAR RISK <40 mg/dl - HIGH CARDIOVASCULAR RISK Normal [facility] Comment on above: Performed By: #### L IPID, TSH, CMP #### [facility] [address] [place] [address] Dr. Guille Mayo LDL CALC NORMAL SEE BELOW Normal [facility] Comment on above: Result Comment: <100 mg/dl OPTIMAL 100 - 129 mg/dl NEAR OR ABOVE OPTIMAL 130 - 159 mg/dl BORDERLINE HIGH 160 - 189 mg/dl HIGH >190 mg/dl VERY HIGH Performed By: #### L IPID, TSH, CMP #### [facility] [address] [place] [address] Dr. Guille Mayo Triglyceride [Mass/Vol] 87 mg/dL Normal <=150 [facility] Comment on above: Performed By: #### L IPID, TSH, CMP #### [facility] [address] [place] [address] [address] Guille Mayo VLDL CALC 17.4 mg/dL Normal [facility] Comment on above: Performed By: #### L IPID, TSH, CMP #### [facility] [address] [place] [address] Dr. Guille Mayo PROF 14(COMP METB)on 023 Albumin [Mass/Vol] 3.8 g/dL Normal 3.4-5.0 [facility] Comment on above: Performed By: #### L IPID, TSH, CMP #### [facility] [address] [place] [address] Dr. Guille Mayo Albumin/Globulin [Mass ratio] 1.0 {ratio} Normal [facility] Comment on above: Performed By: #### L IPID, TSH, CMP #### [facility] [address] [place] [address] Dr. Guille Mayo ALP [Catalytic activity/Vol] 217 U/L Critically high 46-116 [facility] Comment on above: Performed By: #### L IPID, TSH, CMP #### [facility] [address] [place] [address] Dr. Guille Mayo ALT [Catalytic activity/Vol] 38 U/L Normal 16-63 [facility] Comment on above: Performed By: #### L IPID, TSH, CMP #### [facility] [address] [place] [address] Dr. Guille Mayo Anion gap [Moles/Vol] 12.2 mmol/L Normal [facility] Comment on above: Performed By: #### L IPID, TSH, CMP #### [facility] [address] [place] [address] Dr. Guille Mayo AST [Catalytic activity/Vol] 32 U/L Normal 15-37 [facility] Comment on above: Performed By: #### L IPID, TSH, CMP #### [facility] [address] [place] [address] Dr. Guille Mayo Bilirubin [Mass/Vol] 0.3 mg/dL Normal 0.2-1.0 [facility] Comment on above: Performed By: #### L IPID, TSH, CMP #### [facility] [address] [place] [address] Dr. Guille Mayo Calcium [Mass/Vol] 9.3 mg/dL Normal 8.5-10.1 [facility] Comment on above: Performed By: #### L IPID, TSH, CMP #### [facility] [address] [place] [address] [address] Guille Mayo Chloride [Moles/Vol] 106 mmol/L Normal 98-107 [facility] Comment on above: Performed By: #### L IPID, TSH, CMP #### [facility] [address] [place] [address] Dr. Guille Mayo CO2 [Moles/Vol] 27.2 mmol/L Normal 21.0-32.0 [facility] Comment on above: Performed By: #### L IPID, TSH, CMP #### [facility] [address] [place] [address] Dr. Guille Mayo Creatinine [Mass/Vol] 1.31 mg/dL Critically high 0.70-1.30 [facility] Comment on above: Performed By: #### L IPID, TSH, CMP #### [facility] [address] [place] [address] Dr. Guille Mayo EGFR-AF AUSTRIAN >60 Normal >=60 [facility] Comment on above: Performed By: #### L IPID, TSH, CMP #### [facility] [address] [place] [address] Dr. Guille Mayo EGFR-NON AF AUSTRIAN 57 mL/min/1.73m2 Critically low >=60 [facility] Comment on above: Performed By: #### L IPID, TSH, CMP #### [facility] [address] [place] [address] Dr. Guille Mayo Globulin (S) [Mass/Vol] 3.8 g/dL Normal [facility] Comment on above: Performed By: #### L IPID, TSH, CMP #### [facility] [address] [place] [address] [address] Guille Mayo Glucose [Mass/Vol] 98 mg/dL Normal 74-106 [facility] Comment on above: Performed By: #### L IPID, TSH, CMP #### [facility] [address] [place] [address] [address] Guille Mayo Potassium [Moles/Vol] 4.4 mmol/L Normal 3.5-5.1 [facility] Comment on above: Performed By: #### L IPID, TSH, CMP #### [facility] [address] [place] [address] [address] Guille Mayo Protein [Mass/Vol] 7.6 g/dL Normal 6.4-8.2 [facility] Comment on above: Performed By: #### L IPID, TSH, CMP #### [facility] [address] [place] [address] [address] Guille Mayo Sodium [Moles/Vol] 141 mmol/L Normal 136-145 [facility] Comment on above: Performed By: #### L IPID, TSH, CMP #### [facility] [address] [place] [address] [address] Guille Mayo Urea nitrogen [Mass/Vol] 27.0 mg/dL Critically high 7.0-18.0 [facility] Comment on above: Performed By: #### L IPID, TSH, CMP #### [facility] [address] [place] [address] [address] Guille Mayo Urea nitrogen/Creatinine [Mass ratio] 20.6 mg/mg Normal [facility] Comment on above: Performed By: #### L IPID, TSH, CMP #### [facility] [address] [place] [address] [address] Guille Mayo TSHon 03-11-2022 TSH 0.278 uIU/mL Critically low 0.358-3.740 [facility] Comment on above: Performed By: #### L IPID, TSH, CMP ####[facility] [address] [place] [address]Dr. Guille Mayo XR ankle RT min 3V*on 2021 XR ankle RT min 3V* [facility] [address] [place] [address] XRay Report Signed Patient: Alethea Lei MR#: [id number] : 1970 Acct:[id number] Age/Sex: 51 / M ADM Date: 01/06/22 Loc: [facility] Room: Type[facility] Attending Dr: Cj Gayle DO Copies to: [...] Geovanny Magallanes M.D.01/06/2022 3:54 PM Dictation Location: [place] [address] Transcribed By: [facility] 01/06/22 1554 Dictated By: Geovanny Magallanes DO 01/06/22 1553 Signed By: 01/06/22 1554 Normal [facility] XR ankle RT min 3V* [facility] Ullink Other XR ankle RT min 3V* [facility] Ullink Other XR ankle RT min 3V* [address] [place] [address] Ullink Other XR ankle RT min 3V* [place] [address] [facility] Ullink Other XR ankle RT min 3V* XRay Report [facility] Ullink Other XR ankle RT min 3V* Signed [facility] Ullink Other XR ankle RT min 3V* Patient: Alethea Lei MR#: [id number] [facility] Ullink Other XR ankle RT min 3V* : 1970 Acct:[id number] [employer] Other XR ankle RT min 3V* Age/Sex: 51 / M ADM Date: 01/06/22 [employer] Other XR ankle RT min 3V* Loc: [facility] Room: Type: [facility] [employer] Other XR ankle RT min 3V* Attending Dr: Cj Gayle DO [employer] Other XR ankle RT min 3V* Copies to: Cj Gayle DO [employer] Other XR ankle RT min 3V* Ordering Provider: Cj Gayle DO [employer] Other XR ankle RT min 3V* Date of Service: 01/06/22 [employer] Other XR ankle RT min 3V* XR/XR ankle RT min 3V*: Displaced fracture of lateral malleolus of right [employer] Other XR ankle RT min 3V* fibula, sub Nort [facility] Other XR ankle RT min 3V* 3views Rightankle [employer] Other XR ankle RT min 3V* COMPARISON:11/22/21 [employer] Other XR ankle RT min 3V* HISTORY: Status post ORIF RIGHT lateral malleolus fracture [employer] Other XR ankle RT min 3V* No hardware failure. Adequate bony alignment. Continued healing of distal fibular fracture. [employer] Other XR ankle RT min 3V* XR/XR ankle RT min 3V* [employer] Other XR ankle RT min 3V* IMPRESSION: Healing fracture. No hardware failure. 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 Pt presented with caries Radiograph taken today: none Discussed the medical necessity of the problem with the pt. Instructions given to pt. Caregiver understood the situation and is okay with medications for today. Pt will come back should things get worse. Guardianship: PARENTS - Nabila DaveMarlinGucci Lei [address] [place] [address] / Email: [email or web address] Communicated with caregiver that the pt was placed on the OR list and we will call with appt. Limited exam completed by Dr. Noel STEPHENS. OR ----- Signed on Saturday, December 04, 2021 at 11:51:43 AM ----- ----- Provider: [id number] Tucker Myers DDS -- Clinic: [place] ----- Normal [facility] XR ankle RT min 3V*on 2021 XR ankle RT min 3V* [facility] Main [address] [address] XRay Report Signed Patient: Alethea Lei MR#: [id number] : 1970 Acct:[id number] Age/Sex: 51 / M ADM Date: 11/22/21 Loc: [facility] Room: Type: REG CLI Attending Dr: Cj [...] Impression dictated by: Panda De Guzman Jr., D.O.11/22/2021 2:39 PM Dictation Location: [place] [address] Transcribed By: [facility] 11/22/21 1439 Dictated By: Panda De Guzman Jr, DO 11/22/21 1438 Signed By: 11/22/21 1439 [facility] XR ankle RT min 3V*on 2021 XR ankle RT min 3V* [facility] Main [address] [address] XRay Report Signed Patient: Alethea Lei MR#: [id number] : 1970 Acct:[id number] Age/Sex: 51 / M ADM Date: 10/16/21 Loc: [facility] Room: Type: REG CLI Attending Dr: Cj [...] Guzman Jr., D.O.10/16/2021 1:10 PM Dictation Location: [facility]- Transcribed By: [facility] 10/16/21 1310 Dictated By: Panda De Guzman Jr, DO 10/16/21 1307 Signed By: 10/16/21 1310 Normal [facility] XR ankle RT min 3V* [facility] MEPS [employer] Other XR ankle RT min 3V* [facility] MEPS [employer] Other XR ankle RT min 3V* [address] [place] [address] [employer] Other XR ankle RT min 3V* [place] [address] [employer] Other XR ankle RT min 3V* XRay Report Nort [employer] Other XR ankle RT min 3V* Signed [employer] Other XR ankle RT min 3V* Patient: Alethea Lei MR#: [id number] [employer] Other XR ankle RT min 3V* : 1970 Acct:[id number] [employer] Other XR ankle RT min 3V* Age/Sex: 51 / M ADM Date: 10/16/21 [employer] Other XR ankle RT min 3V* Loc: [facility] Room: Type: REG I [employer] Other XR ankle RT min 3V* Attending Dr: Cj Gayle DO [employer] Other XR ankle RT min 3V* Copies to: Cj Gayle, DO [employer] Other XR ankle RT min 3V* Ordering Provider: Cj Gayle, [employer] Other XR ankle RT min 3V* Date of Service: 10/16/21 [employer] Other XR ankle RT min 3V* XR/XR ankle RT min 3V*: Displaced fracture of lateral malleolus of right [employer] Other XR ankle RT min 3V* fibula, sub [facility] [employer]ph[employer] Other XR ankle RT min 3V* RIGHT ANKLE - 3 views [employer] Other XR ankle RT min 3V* CLINICAL HISTORY: ORIF right lateral malleolus fracture. Follow up [employer] Other XR ankle RT min 3V* COMPARISON: Intraoperative study 09/24/2021 [employer] Other XR ankle RT min 3V* FINDINGS: [employer] Other XR ankle RT min 3V* syndesmotic screw without evidence of hardware complication. Fracture line is still evident [employer] Other XR ankle RT min 3V* suggestive of incomplete healing. Medial malleolar fracture is unchanged.. Soft tissue swelling. [employer] Other XR ankle RT min 3V* Plantar spurring. [employer] Other XR ankle RT min 3V* XR/XR ankle RT min 3V* [employer] Other XR ankle RT min 3V* IMPRESSION: [facility] Nephosity Other XR ankle RT min 3V* NO EVIDENCE OF HARDWARE COMPLICATION. [employer] Other XR ankle RT min 3V* Impression dictated by: Panda De Guzman Jr., DRed10/16/2021 1:10 PM [employer] Other XR ankle RT min 3V* Dictation Location: [place] [address] [employer] Other XR ankle RT min 3V* Transcribed By: PWS 10/16/21 1310 [employer] Other XR ankle RT min 3V* Dictated By: Panda De Guzman Jr DO 10/16/21 1307 [employer] Other XR ankle RT min 3V* Signed By: [employer] Other XR ankle RT min 3V* 10/16/21 1310 No rt [facility] Other ECG 12 lead ECGon 09-24-2021 ECG 12 lead ECG [facility] Main [place] [address] [place] [address] Electrocardiograph Report Signed Patient: Alethea Lei MR#: [id number] : 1970 Acct:[id number] Age/Sex: 51 / M ADM Date: 09/24/21 Loc: [place] Room: Type: [facility] Attending Dr: Cj Gayle DO Ordering [...] MUS Signed By Zafar Spicer DO 09/24 1905 [facility] XR ankle RT min 3V*on 2021 XR ankle RT min 3V* [facility] [place] [address] [place] [address] XRay Report Signed Patient: Alethea Lei MR#: [id number] : 1970 Acct:[id number] Age/Sex: 51 / M ADM Date: 09/24/21 Loc: [place] Room: Type: [facility] Attending Dr: Cj Gayle DO Copies to: [...] Guzman Jr., DCarolOCarol09/24/2021 4:10 PM Dictation Location: [place] [address] Transcribed By: [facility] 09/24/21 1610 Dictated By: Panda De Guzman Jr, DO 09/24/21 1609 Signed By: 09/24/21 1610 Normal [facility] COVID[facility] SARS-CoV-2 (COVID-19) RNA GARY+probe Ql (Unsp spec) Negative Normal Negative [facility] Comment on above: Order Comment: Comme nt OR 09/24/21 Healthcare Worker?: N Result Comment: Testing for SARS-CoV-2 by RT-PCR This test was developed and its performance characteristics determined by [employer]) and validated at the [facility]. This test has not been FDA [...] is terminated or revoked sooner. PERFORMED BY: [facility] [address] [place] [address] PATHOLOGIST [employer] CONTR[employer] SPECIALIST CHRISTINE FERNÁNDEZ M.D. Performed By: #### C OVID 19 [facility] #### [address] COVID-19 Positive/NegativeOr dered By: Cj Gayle on 09-23-2021 SARS-CoV-2 (COVID-19) N gene GARY+probe Ql (Resp) Negative Negative [facility] Comment on above: Testing for SARS-CoV -2 by RT-PCR This test was developed and its performance characteristics determined by [employer] and validated at the [facility]. This test has not been FDA [...] BASO # 0.0 103/ul Normal 0.0-0.1 [facility] Comment on above: Performed By: #### C ####[facility] [address] [place], [place] [address]Dr. Guille Mayo Basophils/100 WBC (Bld) 0.2 % Normal 0.2-2.0 [facility] Comment on above: Performed By: #### C BC ####[facility] Use[address] [place] [address]Dr. Guille Mayo EO # 0.1 103/ul Normal 0.0-0.7 [facility] Comment on above: Performed By: #### C BC ####[facility] [address] [place] [address]Dr. Guille Mayo Eosinophils/100 WBC (Bld) 1.2 % Normal 0.9-7.0 [facility] Comment on above: Performed By: #### C BC ####[facility] [address] [place] [address]Dr. Guille Mayo Erythrocyte distribution width (RBC) [Ratio] 12.2 % Normal 11.0-15.0 [facility] Comment on above: Performed By: #### C BC ####[facility] [address] [place] [address]Dr. Guille Myao Hematocrit (Bld) [Volume fraction] 38.0 % Critically low 42.0-54.0 [facility] Comment on above: Performed By: #### C BC ####[facility] [address] [place] [address]Dr. Guille Mayo Hemoglobin (Bld) [Mass/Vol] 12.8 g/dL Critically low 14.0-18.0 [facility] Comment on above: Performed By: #### C BC ####[facility] [address] [place] [address]Dr. Guille Mayo IG # 0.03 10e3/ul Normal 0.00-0.03 [facility] Comment on above: Performed By: #### C BC ####[facility] X[address]ub[address] [place] [address]Dr. Guille Mayo IG % 0.4 % Normal 0.0-0.5 [facility] Comment on above: Performed By: #### C BC ####[facility] [address] [place] [address]Dr. Guille Gael LYMPH # 0.9 103/ul Critically low 1.2-3.8 [facility] Comment on above: Performed By: #### C BC ####[facility] [address]xsx[address] [place] [address]Dr. Guille Gael Lymphocytes/100 WBC (Bld) 10.7 % Critically low 20.5-60.0 [facility] Comment on above: Performed By: #### C BC ####[facility] [address] [place] [address]Dr. Kylahizzy Mayo MANUAL DIFF REQ NO Normal [facility] Comment on above: Performed By: #### C BC ####[facility] Mhc[address]3440 [place] [address]Dr. Guille Gael MCH (RBC) [Entitic mass] 32.2 pg Normal 25.9-34.0 [facility] Comment on above: Performed By: #### C BC ####[facility] [address] [place] [address]Dr. Guille Gael MCHC (RBC) [Mass/Vol] 33.7 g/dL Normal 29.9-35.2 [facility] Comment on above: Performed By: #### C BC ####[facility] [address]xf[address]97[address] [place] [address]Dr. Kylahizzy Mayo MCV (RBC) [Entitic vol] 95.7 fL Critically high 80.0-94.0 [facility] Comment on above: Performed By: #### C BC ####[facility] Mavqrqjouw[address] [place] [address]Dr. Kylahizzy Mayo MONO # 0.7 103/ul Normal 0.3-0.8 [facility] Comment on above: Performed By: #### C BC ####[facility] [address] [place] [address]Dr. Kylahizzy Mayo Monocytes/100 WBC (Bld) 9.0 % Normal 1.7-12.0 [facility] Comment on above: Performed By: #### C BC ####[facility] [address] [place], [place] [address]Wc. Guille Mayo NEUT # 6.4 103/ul Normal 1.4-6.5 [facility] Comment on above: Performed By: #### C BC ####[facility] [address] [place], [place] [address]Cc. Guille Mayo Neutrophils/100 WBC (Bld) 78.5 % Critically high 43.0-75.0 [facility] Comment on above: Performed By: #### C BC ####[facility] Esrncwkxzr[address] [place] [address]Dr. Guille Mayo Platelet mean volume (Bld) [Entitic vol] 9.9 fL Normal 9.5-13.5 [facility] Comment on above: Performed By: #### C BC ####[facility] Xdcxut[address]wo[address] [place] [address]Dr. Guille Mayo PLT 152 103/ul Normal 150-450 [facility] Comment on above: Performed By: #### C BC ####[facility] [address]ujb[address] [place] [address]Dr. Guille Mayo RBC 3.97 106/ul Critically low 4.70-6.[address] [facility] Comment on above: Performed By: #### C BC ####[facility] [address]esm[address] [place] [address]Dr. Guille Mayo WBC 8.1 103/ul Normal 4.0-11.0 [facility] Comment on above: Performed By: #### C BC ####[facility] [address]ts[address] [place] [address]Dr. Guille Mayo CT HEAD WO CONon 09-18-2021 [...] SANDY DÍAZ Date: 2021-09-18 15:44 Normal [facility] Covid-19 PCR (CVDTBH)on 08-24 SARS-CoV-2 (COVID-19) RNA GARY+probe Ql (Unsp spec) Not detected Normal NOT DETECTED [facility] Comment on above: Result Comment: When diagnostic [...] for this test is supported by the [place] of Health and Human Service's declaration that [...] be used). Performed By: #### C VDTBH ####[facility] [address] [place] [id number] Mayo PROF CHEM 8 (BAS METB)on Anion gap [Moles/Vol] 12.4 mmol/L Normal [facility] Comment on above: Performed By: #### B MP ####[facility] [address] [place], [place] [address]NwCarol Mayo Calcium [Mass/Vol] 8.7 mg/dL Normal 8.5-10.1 [facility] Comment on above: Performed By: #### B MP ####[facility] [address]bpbjfury[address] [place] [address]Dr. Guille Mayo Chloride [Moles/Vol] 107 mmol/L Normal 98-107 [facility] Comment on above: Performed By: #### B MP ####[facility] [address]uf[address] [place] [address]Dr. Guille Mayo CO2 [Moles/Vol] 28.0 mmol/L Normal 21.0-32.0 [facility] Comment on above: Performed By: #### B MP ####[facility] [address]ecvn[address] [place] [address]Dr. Guille Mayo Creatinine [Mass/Vol] 1.45 mg/dL Critically high 0.70-1.30 [facility] Comment on above: Performed By: #### B MP ####[facility] [address]teemenrdi[address] [place] [address]Dr. Kylahizzy Gael EGFR-AF AUSTRIAN >60 Normal >=60 [facility] Comment on above: Performed By: #### B MP ####[facility] [address]vufk[address] [place] [address]Dr. Guille Gael EGFR-NON AF AUSTRIAN 51 mL/min/1.73m2 Critically low >=60 [facility] Comment on above: Performed By: #### B MP ####[facility] [address] [place], [place] [address]Dr. Guille Mayo Glucose [Mass/Vol] 87 mg/dL Normal 74-106 [facility] Comment on above: Performed By: #### B MP ####[facility] [address] [place] [address]Dr. Guille Mayo Potassium [Moles/Vol] 4.4 mmol/L Normal 3.5-5.1 [facility] Comment on above: Performed By: #### B MP ####[facility] S[address]kbh[address]r6836 [place] [address]Dr. Kylahizzy Mayo Sodium [Moles/Vol] 143 mmol/L Normal 136-145 [facility] Comment on above: Performed By: #### B MP ####[facility] [address] [place], [place] [address]Dr. Guille Mayo Urea nitrogen [Mass/Vol] 24.0 mg/dL Critically high 7.0-18.0 [facility] Comment on above: Performed By: #### B MP ####[facility] [address] [place], [place] [address]Mm. Guille Mayo Urea nitrogen/Creatinine [Mass ratio] 16.6 mg/mg Normal [facility] Comment on above: Performed By: #### B MP ####[facility] [address] [place], [place] [address]Rz. Guille Mayo XR CHEST 1 Von 09-18-2021 [...] SANDY DÍAZ Date: 2021-09-18 15:36 Normal [facility] CT CHEST WO CONon 08-02-2021 CT CHEST [...] NORMA ROSS Date: 2021-08-02 08:52 Normal [facility] XR DEXA BONE DENSITYon 07-31 XR [...] NORMA ROSS Date: 2021-07-31 16:14 Normal [facility] Anesthesia Attestationon Gaming Worker Authentication Interface Message Text Anesthesia Attestation ATTESTATION OF INFORMED CONSENT FOR ANESTHESIA Anesthesia options were discussed with the patient and/or legal congressional representative. The risks, benefits and alternatives were reviewed. Questions regarding anesthesia were answered. Patient and/or legal congressional representative knows such anesthetics and procedures may be performed by Resident physicians, Certified Anesthesiologist Assistants, or Certified Nurse Anesthetists under the supervision of a physician. The patient /or the patient's legal congressional representative agree with the plan for anesthesia. Normal [facility] Anesthesia Postprocedure Zo luationon 01-25-2021 Gaming Worker Authentication Interface Message Text Anesthesia Postoperative Assessment: [...] ANESTHESIA COMPLICATIONS: No complications documented. Normal [facility] Anesthesia Transfer Of Careo n 01-25-2021 Gaming Worker Authentication Interface Message Text Patient taken to [...] Simi Edwards DDS Anesthesiologist: Jero Peralta MD Mainstreaming Facilitator: Anson Schwartz MD DENTAL RESTORATIONS (Bilateral ) [...] was received. Anson Schwartz MD Normal [facility] Blood Attestationon 01-26-20 Gaming Worker Authentication Interface Message Text Blood Attestation ATTESTATION OF INFORMED CONSENT FOR BLOOD The transfusion of blood and/or blood components were discussed with the patient and/or legal congressional representative. The risks, benefits and alternatives were reviewed. Questions regarding blood transfusions were answered. The patient /or the patient's legal congressional representative agree with the plan for transfusion of blood and/or blood components. 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 Procedures: Full mouth X-ray 39124 Exam 45950 Cleaning 34729 Sikhism 24758 Fluoride 28086 Excisional biopsy 78210 No data filed Surgeon(s): Surgeon(s): Simi Edwards DDS Staff: Leather Case Finisher Nurse: Deborah Chapman RN; Crystal Anderson RN Medical Staff Director: Carolyn López DDS Anesthesia: General Anesthesiologist: Jero Peralta MD Mainstreaming Facilitator: Anson Schwartz MD Specimen(s): ID Type Source Tests Collected by Time Destination 1 : Traumatic fibroma right lower cheeak Tissue Mouth SPECIMEN FOR SURGICAL PATH Simi Edwards DDS 01/25/2021 1146 Estimated Blood Loss: less than 5 cc Lines/Drains: Peripheral IV Access: 01/25/21 09 22 gauge Right Hand (Active) Site Assessment WNL 01/25/21 09 Temporarily Retained Foreign Object: No Findings: Normal [...] López DDS 01/25/2021 12:11 PM Normal [facility] OP Noteon 01-25-2021 Gaming Worker Authentication Interface Message Text Surgical Case Number Data Unavailable Operating Room Data Unavailable Preoperative Diagnosis(es): Dental caries [928962] Autism spectrum disorder F84.0 Moderate intellectual disability F79 Seizure disorder G40.89 Postoperative Diagnosis(es): Autism spectrum disorder F84.0 Moderate intellectual disability F79 Seizure disorder G40.89 Dental caries [385128] 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 uhxrcwl-zzedkxrdth-d cellular pertussis (BOOSTRIX) 5-2.5-18.5 LF-MCG/0.5 injection Inject 0.5 mL into the muscle. Dictated by: Carolyn López DDS: Simi Joyner DDS was present for the critical portions of the procedure. 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 * arpalfy-zgsvmeyzop-b cellular pertussis (BOOSTRIX) 5-2.5-18.5 LF-MCG/0.5 injection Inject 0.5 mL into the muscle. Dictated by: Carolyn López DDS: Simi Joyner DDS was present for the critical portions of the procedure. Carolyn López DDS 01/25/2021 12:18 PM Normal [facility] Anesthesia Preprocedure Eval uaernieon 01-24-2021 Gaming Worker Authentication Interface Message Text ASA: 3 No [...] the history and physical examination. Normal [facility] Telephone Encounteron 2020 Gaming Worker Authentication Interface Message Text Informed Consent for dental surgery AND Anesthesia consent obtained and scanned into [employer]. Scheduled for surgery 01/25/2021. Normal [facility] AUD - Progress Noteson 04-20 Protein mass conc Pt. referred for hearing evaluation by Dr. Espinoza, accompanied by Caitie, a direct care provider from [facility]. Pt. returns today after having ears cleaned out. Pt. denied ear pain at the time of testing. Completed evaluation, resorting to play audiometry for pure tone testing. See AUD-Assessments for Report/Results. DX CODES: H90.3 sensorineural hearing loss bilateral Normal [facility] Coding Summary.on 04-20-2018 Coding Summary. CODING DATE: 04/20/2018 FINAL [facility] STATUS: PAYOR: Medicare APC DESCRIPTION [...] CphT Date Saved: 04/20/2018 09:11 pm Normal [facility] AUD - Progress Noteson 03-31 Protein mass conc pt. referred for hearing evaluation by Muna Espinoza DO, accompanied by Darius direct care provider from [facility]. Otoscopy revealed cerumen in the right ear canal clocking view of the tympanic membrane, left ear with moderate cerumen but tympanic membrance visible. Discussed with Saurabh, did not complete evaluation today. He will return after bilateral ear cleaning. Called and spoke to [facility]/Nursing/Ainsley and advised her of the above. Normal [facility] Mohit 09-09-2016 Alanine aminotransferase (ALT) 35 U/L Normal <40 [facility] Soni 09-09-2016 Aspartate aminotransferase (AST) 26 U/L Normal 15-50 [facility] Albuminon 09-09-2016 Albumin 4.5 g/dL Normal 3.4-5.2 [facility] BUNon 09-09-2016 Urea nitrogen 21 mg/dL High 5-18 [facility] Creatinineon 09-09-2016 Creatinine 1.21 mg/dL High 0.50-1.20 [facility] Electrolyteson 09-09-2016 Chloride 107 mmol/L High 95-106 [facility] CO2 24 mmol/L Normal 24-35 [facility] Potassium molar conc 4.4 mmol/L Normal 3.7-5.[facility]/L Normal 135-145 [facility] Vital Signs Date Time Vital Sign Value Performing Clinician Facility 05-18-2024 16:06-0400 Body height 172.7 cm Glenn Flores DPM Work Phone: [facility] 05-18-2024 16:06-0400 Body mass index (BMI) [Ratio] 28.13 kg/m2 Glenn Flores DPM Work Phone: [facility] 05-18-2024 16:06-0400 Body weight 83.92 kg Glenn Flores DPM Work Phone: [facility] 05-18-2024 16:06-0400 Diastolic blood pressure 90 mm[Hg] Glenn Flores DPM Work Phone: [facility] 05-18-2024 16:06-0400 Heart rate 69 /min Glenn Flores DPM Work Phone: [facility] 05-18-2024 16:06-0400 Systolic blood pressure 139 mm[Hg] Glenn Flores DPM Work Phone: [facility] 04-15-2024 09:29-0500 Body height 172.7 cm Glenn Flores DPM Work Phone: [facility] 04-15-2024 09:29-0500 Body mass index (BMI) [Ratio] 28.13 kg/m2 Glenn Flores DPM Work Phone: [facility] 04-15-2024 09:29-0500 Body weight 83.92 kg Glenn Flores DPM Work Phone: [facility] 04-15-2024 09:29-0500 Diastolic blood pressure 82 mm[Hg] Glenn Flores DPM Work Phone: [facility] 04-15-2024 09:29-0500 Heart rate 71 /min Glenn Flores DPM Work Phone: [facility] 04-15-2024 09:29-0500 Systolic blood pressure 138 mm[Hg] Glenn Brown DPM Work Phone: [facility] 02-09-2024 10:52-0500 Body height 172.7 cm Ana Maria Gillmor PLANNING ANALYST Work Phone: [facility] 02-09-2024 10:52-0500 Body mass index (BMI) [Ratio] 28.13 kg/m2 Ana Maria Ramirezmor PLANNING ANALYST Work Phone: [facility] 02-09-2024 10:52-0500 Body weight 83.92 kg Ana Maria Ramirezmor PLANNING ANALYST Work Phone: [facility] 02-09-2024 10:52-0500 Diastolic blood pressure 90 mm[Hg] Ana Maria Ramirezmor PLANNING ANALYST Work Phone: [facility] 02-09-2024 10:52-0500 Heart rate 69 /min Ana Maria Ramirezmor PLANNING ANALYST Work Phone: [facility] 02-09-2024 10:52-0500 Systolic blood pressure 139 mm[Hg] Ana Maria Ramirezmor PLANNING ANALYST Work Phone: [facility] 01-06-2022 12:30-0500 Body height 177.8 cm Cj Nalini Other [employer] Other 01-06-2022 12:30-0500 Body mass index (BMI) [Ratio] 27.69 kg/m2 Cj Nalini Other [facility] Other 01-06-2022 12:30-0500 Body weight 87.54 kg Cj Nalini Other [employer] Other 09-24-2021 17:03-0400 Diastolic blood pressure 100 mm[Hg] DO Go Espinoza Work Phone: [facility] 09-24-2021 17:03-0400 Heart rate 79 /min DO Go Espinoza Work Phone: [facility] 09-24-2021 17:03-0400 Respiratory rate 16 /min DO Go Espinoza Work Phone: [facility] 09-24-2021 17:03-0400 SaO2% (BldA) [Mass fraction] 94 % DO Go Espinoza Work Phone: [facility] 09-24-2021 17:03-0400 Systolic blood pressure 156 mm[Hg] DO Go Espinoza Work Phone: [facility] 09-24-2021 15:05-0400 Body temperature 97.1 [degF] DO Go Espinoza Work Phone: [facility] 09-24-2021 15:05-0400 Inhaled oxygen flow rate 6 L/min DO Go Espinoza Work Phone: [facility] 09-24-2021 14:22-0400 Body height 172.72 cm DO Go Espinoza Work Phone: [facility] 09-24-2021 14:22-0400 Body mass index (BMI) [Ratio] 29.6 kg/m2 DO Go Espinoza Work Phone: [facility] 09-24-2021 14:22-0400 Body weight 88.4 kg DO Go Espinoza Work Phone: [facility] 08-14-2021 10:45-0400 Body height 177.8 cm Nallely Parada Other [employer] Other 08-14-2021 10:45-0400 Body mass index (BMI) [Ratio] 27.55 kg/m2 Nallely Parada Other [facility] Other 08-14-2021 10:45-0400 Body temperature 97 [degF] Nallely Parada Other [facility] Other 08-14-2021 10:45-0400 Body weight 87.09 kg Nallely Parada Other [facility] Other 08-14-2021 10:45-0400 Diastolic blood pressure 84 mm[Hg] Nallely Parada Other [employer] Other 08-14-2021 10:45-0400 Respiratory rate 20 /min Nallely Parada Other [facility] Other 08-14-2021 10:45-0400 SaO2% (BldA) [Mass fraction] 98 % Nallely Parada Other [facility] Other 08-14-2021 10:45-0400 Systolic blood pressure 132 mm[Hg] Nallely Parada Other [employer] Other Encounters Encounter Date Encounter Type Care Provider Facility Start: 05-18-2024 End: 05-18-2024 Office outpatient visit 15 minutes Glenn Flores DPM Work Phone: [facility] Comment on above: Contusion of left fo ot, initial encounter (Primary Dx); Onychocryptosis; Toe pain, right; Abscess of toe, right; Venous insufficiency Start: 05-18-2024 End: 05-18-2024 ambulatory GLENN FLORES Not Available Start: 05-18-2024 End: 05-18-2024 Bamboo flowsheet Glenn Flores DPM Work Phone: [facility] Start: 05-18-2024 End: 05-18-2024 Bamboo flowsheet Glenn Flores DPM Work Phone: [facility] Start: 05-16-2024 End: 05-16-2024 ambulatory GLENN FLORES Not Available Start: 04-29-2024 End: 04-29-2024 ambulatory GLENN FLORES Not Available Start: 04-15-2024 End: 04-15-2024 Bamboo flowsheet Glenn Flores DPM Work Phone: [facility] Start: 04-15-2024 End: 04-15-2024 Bamboo flowsheet Glenn Radhames Stephanie DPM Work Phone: [facility] Start: 04-15-2024 End: 04-15-2024 Office outpatient visit 15 minutes Glenn Ricci Stephanie DPM Work Phone: [facility] Comment on above: Onychocryptosis (Meredith manuel Dx); Abscess of toe, right; Toe pain, right Start: 04-15-2024 End: 04-15-2024 ambulatory GLENN Ricci STEPHANIE Not Available Start: 02-09-2024 End: 02-09-2024 Bamboo flowsheet Ana Maria Hsu PLANNING ANALYST Work Phone: [facility] [address] Start: 02-09-2024 End: 02-09-2024 Bamboo flowsheet Ana Maria Lopezr PLANNING ANALYST Work Phone: [facility] [address] Start: 02-09-2024 End: 02-09-2024 Office outpatient visit 25 minutes Ana Maria Hsu PLANNING ANALYST Work Phone: [facility] Comment on above: Seizure disorder (CM S/HCC) (Primary Dx); Frequent falls; Mental disability (CMS/HCC); Tuberous sclerosis (CMS/HCC) Start: 02-09-2024 End: 02-09-2024 ambulatory ANA MARIA HSU Not Available Start: 01-16-2024 End: 01-16-2024 Letter encounter [facility] Start: 11-10-2023 End: 11-10-2023 ambulatory MEGAN TSE Facility:[facility] Start: 08-19-2023 End: 08-19-2023 Lab Drop off GO ESPINOZA [facility] Start: 08-19-2023 End: 08-19-2023 ambulatory GO ESPINOZA Facility:[facility] Start: 08-06-2023 End: 08-06-2023 ambulatory ANA MARIA HSU Not Available Start: 05-12-2023 End: 05-12-2023 ambulatory SUMEET SWANSON Facility:[facility] Start: 02-25-2023 End: 02-25-2023 Lab Drop off GO ESPINOZA [facility] Start: 02-25-2023 End: 02-25-2023 ambulatory GO ESPINOZA Facility:[facility] Start: 11-12-2022 End: 11-12-2022 ambulatory GO EPSINOZA Facility:[facility] Start: 11-12-2022 End: 11-12-2022 Lab Drop off GO ESPINOZA [facility] Start: 05-27-2022 End: 05-28-[address] GO ESPINOZA Facility: Start: 04-24-2022 Letter encounter Vadim patton Start: 04-11-2022 End: 04-12-[address] GO ESPINOZA Facility:[facility] Start: 04-10-2022 End: 04-11-[address] GO ESPINOZA Facility:[facility] Start: 04-09-2022 Telephone encounter Nallely Parada [facility] Start: 04-09-2022 End: 04-09-2022 ambulatory Go Espinoza Facility:[facility] Start: 03-12-2022 End: 03-12-2022 ambulatory Go Espinoza Facility:[facility] Start: 03-12-2022 End: 03-12-2022 ambulatory DO Go Espinoza Work Phone: [facility] Work Phone: Start: 03-12-2022 End: 03-12-2022 Patient encounter procedure DO Go Espinoza Work Phone: [facility] Work Phone: Start: 03-11-2022 End: 03-12-[address] GO ESPINOZA Facility:[facility] Start: 02-06-2022 End: 02-06-2022 ambulatory Nallely Parada Other [facility] Other Start: 02-06-2022 Telephone encounter Nallely Parada [facility] Start: 01-07-2022 End: 01-07-2022 ambulatory Cj Gayle Other [facility] Other Start: 01-07-2022 Telephone encounter Cj Gayle [facility] Start: 01-06-2022 Postop follow up vis it related to original px Cj Gayle [facility] Start: 01-06-2022 End: 01-06-2022 ambulatory Cj Radhames Nalini Facility:[facility] Start: 01-06-2022 End: 01-06-2022 ambulatory DO Go Espinoza Work Phone: [facility] Work Phone: Start: 01-06-2022 End: 01-06-2022 Patient encounter procedure DO Go Espinoza Work Phone: [facility] Start: 12-04-2021 End: 12-06-2021 ambulatory UNKNOWN PROVIDER Facility:[facility] Start: 12-04-2021 End: 12-06-2021 Patient encounter procedure Ly Redmond RDH Work Phone: [facility] Start: 11-22-2021 Postop follow up vis it related to original px Cj Gayle [facility] Start: 11-22-2021 End: 11-22-2021 ambulatory Cj Ricci [facility] [place] [facility] [employer] Other Start: 11-22-2021 End: 11-22-2021 Patient encounter procedure DO Go Espinoza Work Phone: [facility] Start: 10-16-2021 Postop follow up vis it related to original px Cj Gayle [facility] Start: 10-16-2021 End: 10-16-2021 ambulatory Cj Ricci [facility] [place] [facility] Other Start: 10-16-2021 End: 10-16-2021 Patient encounter procedure DO Go Espinoza Work Phone: [facility] Start: 09-24-2021 End: 09-24-2021 ambulatory Cj Gayle Facility:[facility] Start: 09-24-2021 End: 09-24-2021 Admission to same day surgery center DO Go Espinoza Work Phone: [facility] [place] Start: 09-23-2021 End: 09-23-2021 ambulatory Cj Gayle Facility:[facility] Start: 09-23-2021 End: 09-23-2021 Patient encounter procedure DO Go Espinoza Work Phone: [facility] Start: 09-18-2021 End: 09-18-2021 ambulatory TRAN MORALEZ . Facility:[facility] Start: 08-14-2021 End: 08-14-2021 ambulatory Nallely Parada Other [employer] Other Start: 08-14-2021 Office outpatient ne w 45 minutes Nallely Parada [facility] Start: 08-01-2021 End: 08-02-[address] GO ESPINOZA Facility:[facility] Start: 07-31-2021 End: 08-01-[address] GO ESPINOZA Facility:[facility] Start: 01-25-2021 End: 01-26-2021 ambulatory SIMI MEADOWS Facility:[facility] Start: 01-25-2021 ambulatory UNKNOWN PROVIDER Facili ty:[facility] Start: 09-09-2016 End: 09-09-2016 Ambulatory Robbi PETERSEN [facility] Procedures Date Procedure Procedure Detail Performing [...] Screening for malign ant neoplasm of colon [facility] Start: 10-10-2025 Lipid panel [facility] Start: 08-04-2024 End: 08-04-2024 Patient encounter procedure [facility] Start: 05-18-2024 End: 05-18-2024 Patient encounter procedure 05/18/2024 4:00 PM EDT Office Visit [facility] [address] [place] [id number] Glenn Flores DPM [address] [address] Arrived [facility] Comment on above: Arrived Start: 04-15-2024 End: 04-15-2024 Patient encounter procedure 04/15/2024 9:30 AM EST Office Visit [facility] [address] [place] [address] Glenn Flores DPM [address] [address] Arrived [facility] Comment on above: Arrived Start: 02-09-2024 End: 02-09-2024 Patient encounter procedure 02/09/2024 10:40 AM EST Office Visit [facility] [address] [facility] [place] [address] Ana Maria Hsu, IVETTE [address] [place], [place] Arrived [facility] Comment on above: Arrived Start: 10-25-2023 COVID-19 Vaccine ( season) COVID-19 Vaccine ( season) [facility] Start: 10-25-2023 Influenza vaccination Influenza Vacc ine (#1) [facility] Start: 11-23-2021 Influenza vaccination Influenza Vacc ine (#1) [facility] Start: 10-16-2021 X-ray of right ankle XR ankle RT min 3V* [facility] Start: 10-16-2021 End: 10-16-2021 Patient encounter procedure Departed Clinical [facility] Start: 09-24-2021 [facility] Work Phone: Start: 09-24-2021 [facility] Work Phone: Start: 08-21-2021 COVID-19 Vaccine (5 - Booster for Pfizer series) COVID-19 Vaccine (5 - Booster for Pfizer series) [facility] Start: 01-10-2018 Measurement of occul t blood in single stool specimen FIT [facility] Start: 01-10-2018 Screening for malign ant neoplasm of colon CRC Screening [facility] Start: 01-10-2018 Shingles (RZV) Vacci ne (1 of 2) Shingles (RZV) Vaccine (1 of 2) [facility] Start: 01-10-2013 Screening for malign ant neoplasm of colon [facility] Start: 01-10-2003 Lipid panel Cholesterol [facility] Start: 02-23-1997 Annual wellness visit Annual [facility] Visit ([id number]) [facility] Start: 01-10-1987 Hepatitis A (HAV) Vaccine (optional start 19+ years) Hepatitis A (HAV) Vaccine (optional start 19+ years) [facility] Start: 01-10-1987 Hepatitis B vaccination Hepati tis B (HBV) Vaccine (1 of 3 - 19+ 3-dose series) [facility] Start: 01-10-1986 Hepatitis C screening Hepatitis C An tibody [facility] Start: 01-10-1986 Tetanus + diphtheria + acellular pertussis vaccine (product) Tdap Booster [facility] Start: 01-10-1983 HIV screening HIV Test [facility] Start: 1970 Medicare Annual Wellness (AWV) Medicare Annual Wellness (AWV) [facility] Start: 1970 Screening for malign ant neoplasm of colon [facility] Patient referral [facility] Work Phone: Immunizations Immunization Date Immunization Notes Care Provider Zeb gusmanaaron 12-10-2022 influenza virus vaccine, unspecified formulation Ana Maria Hsu PLANNING ANALYST Work Phone: [facility] 06-26-2021 Pfizer (12+ yrs) SARS-COV-2 (COVID-19) vaccine, mRNA, spike protein, LNP, pres. free, 30 mcg/0.3mL dose, syeda-sucrose (CBK=670) Ly Ruy RDH Work Phone: [facility] 12-19-2020 COVID-19 Vaccine Pfi zer - Documentation Purposes Only Nallely Parada Other [employer] Other 12-19-2020 influenza, injectabl e, quadrivalent, preservative free Ly Ruy RDH Work Phone: [facility] 12-19-2020 influenza virus vaccine, unspecified formulation Ly Ruy RDH Work Phone: [facility] 03-27-2020 COVID-19 Vaccine Pfi zer - Documentation Purposes Only Nallely Parada Other [employer] Other 03-06-2020 COVID-19 Vaccine Pfi zer - Documentation Purposes Only Nallely Parada Other [employer] Other 11-30-2019 influenza, injectabl e, quadrivalent, preservative free Ly Ruy RDH Work Phone: [facility] 12-17-2018 influenza, injectabl e, quadrivalent, preservative free Ly Ruy RDH Work Phone: [facility] 12-02-2017 influenza, injectabl e, quadrivalent, preservative free Ly Ruy RDH Work Phone: [facility] 01-06-2017 influenza, injectabl e, quadrivalent, contains preservative Ly Ruy RD Work Phone: [facility] 07-12-2015 tetanus and diphther ia toxoids, adsorbed, preservative free, for adult use (5 Lf of tetanus toxoid and 2 Lf of diphtheria toxoid) Ly Ruy RD Work Phone: [facility] 12-14-2014 influenza, injectabl e, quadrivalent, preservative free Ly Ruy RD Work Phone: [facility] 01-10-2009 novel [id number], preservative-free, injectable Ly Ruy RD Work Phone: [facility] 01-07-2008 influenza virus vaccine, whole virus Ly Ruy RD Work Phone: [facility] 12-08-2006 influenza virus vaccine, whole virus Ly Ruy RD Work Phone: [facility] 06-25-2005 tetanus and diphther ia toxoids, adsorbed, preservative free, for adult use (5 Lf of tetanus toxoid and 2 Lf of diphtheria toxoid) Ly Ruy RD Work Phone: [facility] diphtheria, tetanus toxoids and acellular pertussis vaccine, unspecified formulation Ly Ruy RD Work Phone: [facility] fbjlhys-tfasbzxief-v shabnam lular pertussis (BOOSTRIX) 5-2.5-18.5 LF-MCG/0.5 injection [facility] Payers Date Payer Category Payer Self-pay [id number] 2019 Dental --Stand Alone DENTAL-MEDI CAID [id number] 2019 Medicaid [id number]. [id number] 1996 Medicare [id number] [id number]. [id number] 1996 Medicare FFS MEDICARE [id number] 1968 Unknown [id number] 2.16840.1.018876.3.579.2.7 32 1968 Unknown [id number] 2.16840.1.145659.3.579.2.7 32 1968 Unknown [id number] 2.16840.1.087871.3.579.2.7 32 1968 Unknown [id number] 2.16.840.1.559427.3.579.2.5 93 1968 Unknown [id number] 2.16.840.1.843902.3.579.2.5 93 1968 Unknown [id number] 2.16.840.1.914293.3.579.2.5 93 1968 Unknown [id number] 2.16.840.1.406366.3.579.2.5 93 1968 Unknown [id number] 2.16.840.1.021346.3.579.2.7 27 1968 Unknown [id number] 2.16.840.1.431056.3.579.2.7 27 1968 Unknown [id number] 2.16.840.1.356188.3.579.2.7 27 1968 Unknown [id number] 2.16.840.1.897612.3.579.2.1 259 1968 Unknown [id number] 2.16.840.1.496111.3.579.2.1 259 1968 Unknown [id number] 2.16.840.1.447502.3.579.2.1 259 1968 Unknown [id number] 2.16.840.1.992836.3.579.2.1 259 1968 Unknown [id number] 2.840.1.053196.3.579.2.1 259 1968 Unknown [id number] 2.16.840.1.932450.3.579.2.1 259 1959 Medicaid [id number] 1961 Medicare [id number] 2.840.1.176346.19 Medicare [id number] Unknown [employer] [id number] Unknown [id number] 2.16.840.1.854445.3.579.2.5 31 Unknown [id number] 2.16.840.1.056909.3.579.2.5 31 Unknown [id number] 2.16.840.1.258505.3.579.2.5 31 Unknown [id number] 2.16.840.1.555551.3.579.2.5 31 Unknown [id number] 2.16.840.1.480658.3.579.2.5 31 Unknown [id number] 2.16.840.1.147485.3.579.2.5 31 Unknown [id number] 2.16.840.1.625594.3.579.2.5 31 Unknown [id number] 2.16.840.1.445067.3.579.2.5 93 Unknown [id number] 2.16.840.1.409610.3.579.2.5 93 Unknown [id number] 2.16.840.1.141371.3.579.2.5 93 Social History Date Type Detail Facility Start: 08-06-2023 End: 04-29-2024 Sex Assigned At [facility] Start: 09-24-2021 End: 02-05-2023 Tobacco smoking status OHIS Never smoked tobacco (finding) [facility] Start: 1970 Sex Assigned At Male [facility] Tobacco smoking status [facility] Tobacco smoking consumption unknown [facility] Start: 1970 Sex Assigned At Not on file [facility] Tobacco smoking status No Smoking Status Entered [facility] Start: 03-01-2019 Sex Male (finding) [facility] Start: 02-05-2023 Tobacco use and exposure Smokeless tobacco non-user [facility] Start: 08-06-2023 End: 05-18-2024 Alcoholic beverage intake Lifetime non-drinker (finding) [facility] Start: 08-06-2023 End: 04-29-2024 History of Social function [facility] NEGATED: Highlighted rowStart: NINF History of tobacco use Passive smoker [facility] Medical Equipment Procedure Code Equipment Code Equipment Origin al Text Equipment Identifier Dates ORIF, fracture, ankle CANCELLOUS COARSE 7.5CC FDA Start: 09-24-2021 ORIF, fracture, ankle Orthopaedic bone screw, non-bioabsorbable, non-sterile ()[id number] FDA Start: 09-24-2021 ORIF, fracture, ankle Orthopaedic bone screw, non-bioabsorbable, non-sterile ()[id number] FDA Start: 09-24-2021 ORIF, fracture, ankle Orthopaedic fixation plate, non-bioabsorbable, sterile ()[id number] FDA Start: 09-24-2021 ORIF, fracture, ankle Orthopaedic bone screw, non-bioabsorbable, non-sterile ()[id number] FDA Start: 09-24-2021 ORIF, fracture, ankle Orthopaedic bone screw, non-bioabsorbable, non-sterile ()[id number] FDA Start: 09-24-2021 ORIF, fracture, ankle Orthopaedic bone screw, non-bioabsorbable, non-sterile ()[id number] FDA Start: 09-24-2021 ORIF, fracture, ankle Orthopaedic bone screw, non-bioabsorbable, non-sterile ()[id number] FDA Start: 09-24-2021 ORIF, fracture, ankle CANCELLOUS COARSE 7.5CC FDA Start: 09-24-2021 ORIF, fracture, ankle CANCELLOUS COARSE 7.5CC FDA Start: 09-24-2021 ORIF, fracture, ankle CANCELLOUS COARSE 7.5CC FDA Start: 09-24-2021 ORIF, fracture, ankle CANCELLOUS COARSE 7.5CC FDA Start: 09-24-2021 Goals Date Patient Goal Desired Activity /State Clinical Notes 01-10-2021 to 05-18-2024 Glenn Flores DPM - 05/18/2024 4:00 PM Vani Flores DPM - 04/15/2024 9:30 AM EST Note Date & Type Note Facility 05-18-2024 History of Present illness Narrative Patient: Alethea Lei : 1970 PCP: Go Espinoza MD SUBJECTIVE This is a 54 y.o. male that presents today 16 d s/p permanent nail avulsion with nail avulsion to the right medial hallux Pt states that they have been following all post op instructions and have been taking antibiotic as prescribed. Pt denies n/f/v/c and has negative pain at post op site. Pt states negative drainage from the postop site. Pt presents today for postoperative follow up. Presents today with caregiver Patient presents today post today's history of some pain with ambulation and swelling to the dorsum of left foot but has poor historian and caregiver states patient had x-rays today with negative findings. 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 Hypertension (CMS/HCC) Hypothyroidism (CMS/HCC) Impulse control disorder (CMS/HCC) Mental disability (CMS/HCC) Mental Retardation Moderate intellectual disability (CMS/HCC) Myofascial pain syndrome Abdominal Wall or Pelvic Floor OCD (obsessive compulsive disorder) (CMS/HCC) Organic mood disorder Organic psychosis Osteoporosis (CMS/HCC) Pervasive developmental disorder (CMS/HCC) Renal failure Seizure disorder (CMS/HCC) Tuberous sclerosis (CMS/HCC) Medications: Current Outpatient Medications: acetaminophen (Tylenol) 325 MG tablet, Take by mouth, Disp: , Rfl: amLODIPine (Norvasc) 5 MG tablet, Take 5 mg by mouth Daily, Disp: , Rfl: atorvastatin (Lipitor) 40 MG tablet, Take 40 mg by mouth in the morning., Disp: , Rfl: benztropine (Cogentin) 1 MG tablet, Take 1 mg by mouth in the morning and 1 mg in the evening and 1 mg before bedtime., Disp: , Rfl: Calcium Carb-Cholecalciferol (Oyster Shell Calcium w/D) 500-5 MG-MCG tablet, Take 1 tablet by mouth in the morning and 1 tablet before bedtime. (Patient not taking: Reported on 02/09/2024), Disp: , Rfl: cloNIDine (Catapres) 0.1 MG tablet, TAKE ONE TABLET BY MOUTH 3 TIMES DAILY CATAPRES, Disp: , Rfl: docusate sodium (Colace) 100 MG capsule, TAKE ONE CAPSULE BY MOUTH 3 TIMES DAILY, Disp: , Rfl: fluocinonide (Lidex) 0.05 % external solution, , Disp: , Rfl: haloperidol (Haldol) 5 MG tablet, TAKE 3 TABLETS BY MOUTH IN THE MORNING 2 TABLETS IN THE EVENING AND 3 TABLETS AT BEDTIME, Disp: , Rfl: levETIRAcetam (Keppra) 500 MG tablet, Take 1 tablet by mouth in the morning and 1 tablet before bedtime., Disp: , Rfl: levothyroxine (Synthroid, Levoxyl) 175 MCG tablet, Take 175 mcg by mouth in the morning. Take before meals., Disp: , Rfl: loratadine (Claritin Reditabs) 10 MG disintegrating tablet, Take 10 mg by mouth Daily, Disp: , Rfl: losartan (Cozaar) 100 MG tablet, Take 100 mg by mouth at bedtime, Disp: , Rfl: meloxicam (Mobic) 15 MG tablet, TAKE ONE TABLET BY MOUTH DAILY AT BEDTIME MOBIC, Disp: , Rfl: Mouthwashes (Biotene Dry Mouth) liquid, TWICE A DAY SWISH 15ML FOR 30 SEC THEN SPIT, Disp: , Rfl: Multiple Vitamin (Multivitamin) tablet, Take 1 tablet by mouth in the morning., Disp: , Rfl: OXcarbazepine (Trileptal) 600 MG tablet, TAKE ONE TABLET BY MOUTH IN THE MORNING AND TWO TABLETS AT BEDTIME TRILEPTAL, Disp: , Rfl: PARoxetine (Paxil) 40 MG tablet, Take 60 mg by mouth Daily, Disp: , Rfl: potassium chloride ER (Micro-K) 10 MEQ ER capsule, TAKE ONE CAPSULE BY MOUTH 3 TIMES DAILY, Disp: , Rfl: Prolia 60 MG/ML solution prefilled syringe, , Disp: , Rfl: traMADol (Ultram) 50 MG tablet, Take 50 mg by mouth every 4 (four) hours if needed for severe pain (Patient not taking: Reported on 02/09/2024), Disp: , Rfl: triamcinolone (Kenalog) 0.1 % cream, Apply topically 2 (two) times a day, Disp: , Rfl: ROS: General: denies fever, chills, fatigue, malaise GI: denies loose or watery stool on antibiotic OBJECTIVE LE EXAM: DERM: Negative erythema, negative drainage from the right medial hallux. Edema to dorsum of left foot with negative ecchymosis VASC: Palpable pedal pulses bilaterally NEURO: Gross sensation intact to bilateral feet ORTHO: negative palpation left forefoot with +5/5 dorsiflexion plantar flexion inversion eversion of left foot Reviewed radiology report today by Dr. Go aguirre with negative fractures or dislocations noted ASSESSMENT 16 d s/p permanent nail avulsion to the right medial hallux 1. Onychocryptosis 2. Toe pain, right 3. Abscess of toe, right 4. Contusion of left foot, initial encounter 5. Venous insufficiency PLAN Pt to d/c abx. Patient to continue with OTC oral anti - inflammatories as needed for pain. Pt to keep DSD on area of interest while in shoegear, otherwise may expose to air in a clean environment. Reviewed x-ray report today by Dr. Go aguirre Application today of multilayer compressive dressing for swelling and edema to the foot and ankle region. Dressing consisting of Webril and Kyle wrap today. Today's procedure is a staged procedure and patient may need further procedures in the future. Glenn Flores DPM documented in this encounter [facility] 04-15-2024 History of Present illness Narrative Patient: Alethea Lei : 1970 PCP: Go Espinoza MD SUBJECTIVE This is a 54 y.o. male that presents today with a CC of ingrowing right hallux toenail Pt states problem has been present for the past few weeks. Pt has noticed positive drainage to the affected area and states pain is achey in nature. Treatments have consisted of soaking and trying to remove the ingrown nail on their own with no relief. 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 Hypertension (CMS/HCC) Hypothyroidism (CMS/HCC) Impulse control disorder (CMS/HCC) Mental disability (CMS/HCC) Mental Retardation Moderate intellectual disability (CMS/HCC) Myofascial pain syndrome Abdominal Wall or Pelvic Floor OCD (obsessive compulsive disorder) (CMS/HCC) Organic mood disorder Organic psychosis Osteoporosis (CMS/HCC) Pervasive developmental disorder (CMS/HCC) Renal failure Seizure disorder (CMS/HCC) Tuberous sclerosis (CMS/HCC) Medications: Current Outpatient Medications: acetaminophen (Tylenol) 325 MG tablet, Take by mouth, Disp: , Rfl: amLODIPine (Norvasc) 5 MG tablet, Take 5 mg by mouth Daily, Disp: , Rfl: atorvastatin (Lipitor) 40 MG tablet, Take 40 mg by mouth in the morning., Disp: , Rfl: benztropine (Cogentin) 1 MG tablet, Take 1 mg by mouth in the morning and 1 mg in the evening and 1 mg before bedtime., Disp: , Rfl: Calcium Carb-Cholecalciferol (Oyster Shell Calcium w/D) 500-5 MG-MCG tablet, Take 1 tablet by mouth in the morning and 1 tablet before bedtime. (Patient not taking: Reported on 02/09/2024), Disp: , Rfl: cloNIDine (Catapres) 0.1 MG tablet, TAKE ONE TABLET BY MOUTH 3 TIMES DAILY CATAPRES, Disp: , Rfl: docusate sodium (Colace) 100 MG capsule, TAKE ONE CAPSULE BY MOUTH 3 TIMES DAILY, Disp: , Rfl: fluocinonide (Lidex) 0.05 % external solution, , Disp: , Rfl: haloperidol (Haldol) 5 MG tablet, TAKE 3 TABLETS BY MOUTH IN THE MORNING 2 TABLETS IN THE EVENING AND 3 TABLETS AT BEDTIME, Disp: , Rfl: levETIRAcetam (Keppra) 500 MG tablet, Take 1 tablet by mouth in the morning and 1 tablet before bedtime., Disp: , Rfl: levothyroxine (Synthroid, Levoxyl) 175 MCG tablet, Take 175 mcg by mouth in the morning. Take before meals., Disp: , Rfl: loratadine (Claritin Reditabs) 10 MG disintegrating tablet, Take 10 mg by mouth Daily, Disp: , Rfl: losartan (Cozaar) 100 MG tablet, Take 100 mg by mouth at bedtime, Disp: , Rfl: meloxicam (Mobic) 15 MG tablet, TAKE ONE TABLET BY MOUTH DAILY AT BEDTIME MOBIC, Disp: , Rfl: Mouthwashes (Biotene Dry Mouth) liquid, TWICE A DAY SWISH 15ML FOR 30 SEC THEN SPIT, Disp: , Rfl: Multiple Vitamin (Multivitamin) tablet, Take 1 tablet by mouth in the morning., Disp: , Rfl: OXcarbazepine (Trileptal) 600 MG tablet, TAKE ONE TABLET BY MOUTH IN THE MORNING AND TWO TABLETS AT BEDTIME TRILEPTAL, Disp: , Rfl: PARoxetine (Paxil) 40 MG tablet, Take 60 mg by mouth Daily, Disp: , Rfl: potassium chloride ER (Micro-K) 10 MEQ ER capsule, TAKE ONE CAPSULE BY MOUTH 3 TIMES DAILY, Disp: , Rfl: Prolia 60 MG/ML solution prefilled syringe, , Disp: , Rfl: traMADol (Ultram) 50 MG tablet, Take 50 mg by mouth every 4 (four) hours if needed for severe pain (Patient not taking: Reported on 02/09/2024), Disp: , Rfl: triamcinolone (Kenalog) 0.1 % cream, Apply topically 2 (two) times a day, Disp: , Rfl: Social History: Social History Socioeconomic History Marital status: Unmarried Spouse name: Not on file Number of children: Not on file Years of education: Not on file Highest education level: Not on file Occupational History Not on file Tobacco Use Smoking status: Never Passive exposure: Never Smokeless tobacco: Never Vaping Use Vaping status: Unknown Substance and Sexual Activity Alcohol use: Never Drug use: Never Sexual activity: Defer Other Topics Concern Not on file Social History Narrative Not on file Social Drivers of Health Financial Resource Strain: Not on file Food Insecurity: Not on file Transportation Needs: Not on file Physical Activity: Not on file Stress: Not on file Social Connections: Not on file Intimate Partner Violence: Not on file Housing Stability: Not on file ROS: General: denies fever, chills, fatigue, malaise Gastrointestinal: denies abdominal pain, ulcers, or changes in appetite or bowel habits Musculoskeletal: denies arthritis, denies loss of strength, pain to hip, knees, back Cardiovascular: denies CP, palpitations, irregular rhythms OBJECTIVE LE EXAM: DERM: Positive erythema and positive serous sanguinous drainage from the medial right hallux with hair growth noted to b/l feet. VASC: Palpable pedal pulsed b/l with warm to cool tibia to toes b/l NEURO: Gross sensation intact digits 1-10 and b/l feet ORTHO: Ankle ROM less than 10 degrees b/l. Positive pain on palpation to right hallux ASSESSMENT 1. Abscess of toe, right 2. Onychocryptosis 3. Toe pain, right PLAN Patient to continue with oral anti - inflammatories as needed for pain and recommended OTC medications such as tylenol or Ibuprofen Discussed possible treatment options including a permanent nail avulsion and patient may consider in the future. Performed I and D of abcess with partial removal of nail to access infection to the right toenail. Pt informed of risks and benefits of procedure including infection,pain,bleeding, reoccurance. Pt consents. Next, 3cc of xylocaine 2% plain injected into affected digit for anesthesia. The affected toe was prepped and draped in usual sterile manner and offending nail was removed with minimal blood loss and positive serosanguinous drainage noted. Wound then was flushed with NSS and DSD applied to digit. Patient has antibiotics and continues antibiotics since 04/13/2024 of Keflex Glenn Flores DPM documented in this encounter [facility] 11-10-2023 Note HNO ID: [id number] Author: SUMEET CALI MD Service: ? Author [...] visit. Either the patient or their legal congressional representative has been informed of the risks [...] request it faxed to them. Fax number: [phone] (direct fax). Risks and benefits of the [...] evening, and 3 tablets at bedtime 0 iqplxcf-pwjezvtqo-katmxvb D3 (OYSTER SHELL CALCIUM-VITAMIN D) 500 mg(1,250mg) [...] daily. cloNIDine 0.1 (more content not included)... [facility] 08-19-2023 Evaluation + Plan note Diagnostic Tests [id number] 08/19/23T3 Free 08/19/23Keppra Lvl 08/19/23Lamotrigine Level 08/19/23 [facility] 05-12-2023 Note HNO ID: [id number] Author: SUMEET CALI MD Service: ? Author [...] visit. Either the patient or their legal congressional representative has been informed of the risks [...] anxiety, (10-14) moderate anxiety, (15-21) severe anxiety [place] Cognitive Assessment (Mo[facility]) No data to display [...] evening, and 3 tablets at bedtime 0 faflbju-kcizgwswv-ozizmti D3 (OYSTER SHELL CALCIUM-VITAMIN D) 500 mg(1,250mg) [...] PO tid 0 (more content not included)... [facility] 02-25-2023 Evaluation + Plan note Diagnostic Tests PendingT3 Free 02/25/23 [facility] 11-12-2022 Evaluation + Plan note Diagnostic Tests PendingPSA Screen, Total 11/12/22 [facility] 01-06-2022 Evaluation note Encounter Date Diagnosis Assessment Notes Dec, Displaced fracture of lateral malleolus of right fibula, subsequent encounter for closed fracture with routine healing (ICD-10 - S82.61XD) Alethea is here today for follow-up about 12 weeks s/p right ankle ORIF. He is doing well. He is currently residing at [facility]. There is no complaints overall. Ankle is [...] Other specified postprocedural states (ICD-10 - Z98.890) [facility] Other 10-12-2022 History of Present illness Narrative* Simi Edwards DDS - 12/04/2021 11:03 AM EDT ----- Saturday, December 04, 2021 at 11:22:04 AM ----- ----- Provider: Brandy Manningeni -- Clinic: [place] ----- [facility], Pt is ready for tx. Pt presented with caries Radiograph taken today: none Discussed the medical necessity of the problem with the pt. Instructions given to pt. Caregiver understood the situation and is okay with medications for today. Pt will come back shouldthings get worse. Guardianship: PARENTS - Nabila (Kerri Lei [address] [address] / Email: [email or web address] Communicated with caregiver that the pt was placed on the OR list and we will call with appt. Limited exam completed by Dr. Noel STEPHENS. OR ----- Signed on Saturday, December 04, 2021 at 11:51:43 AM ----- ----- Provider: Manny Myers DDS -- Clinic: [place] ----- documented in this [id number] Evaluation note* Encounter Date Diagnosis Assessment Notes Treatment Notes Treatment Clinical Notes Oct, Displaced fracture of lateral malleolus of right fibula, subsequent encounter for closed fracture with routine healing (ICD-10 - S82.61XD) Alethea is here today for first follow-up 8 weeks s/p right ankle ORIF. He is doing well. He is currently residing at [facility]. There is no complaints overall. His incision [...] fracture with routine healing (ICD-10 - S82.392D) [facility] Other 08-24-2022 Evaluation note* Encounter Date Diagnosis Assessment Notes Treatment Notes Treatment Clinical Notes Sep, Displaced fracture of lateral malleolus of right fibula, subsequent encounter for closed fracture with routine healing (ICD-10 - S82.61XD) Alethea is here today for first follow-up 3 weeks s/p right ankle ORIF. He is doing well. He is currently residing at [facility]. There is no complaints overall. His incision [...] as documented in the electronic medical record. [facility] Other 08-24-2022 NoteCast material is in place limiting evaluation. Hardware fixation involving the distal fibula withNort MEPS Real-Time Other 07-27-2022 NotePROCEDURE: XR TIB_FIB RT 2V [...] authenticated by: SANDY DÍAZ Date: 2021-09-18 17:14[facility]07-27-2022 NotePROCEDURE: XR ANKLE RT MIN 3 [...] authenticated by: SANDY DÍAZ Date: 2021-09-18 16:44[id number] NotePROCEDURE: XR ANKLE LT MIN 3 V [...] authenticated by: SANDY DÍAZ Date: 2021-09-18 15:33[facility]06-22-2022 Evaluation note* Encounter Date Diagnosis Assessment Notes Treatment Notes Treatment Clinical Notes Jul, Pulmonary cavitary lesion (ICD-10 - J98.4) Jul, Tuberous sclerosis (ICD-10 - Q85.1) [facility] Other 12-03-2021 NoteSurgical Attestation: I have reviewed the patient's History and Physical Examination. I have personally seen and evaluated the patient, repeating narayanan portions. There is no significant interval change. Surgery is still indicated. Yes Consent reviewed and signed by patient/family: Yes Operative site verified and marked: site verified but not marked as not anatomically possible Carolyn López DDS 01/25/2021 9:50 AMThe [facility] [id number] NotePatient is vaccinated for COVID-19: Pfizer on 03/06/2020 AND 03/27/2020. Patient does not require pre-op COVID testing per current guidelines.[facility] SystemEvaluation noteNo assessment information availableWilson Health Work Phone: Evaluation noteNo InformationNort MEPS Real-Time Other Evaluation note* Diagnosis Seizure disorder (CMS/HCC)- Primary Unspecified epilepsy without mention of intractable epilepsy Frequent falls Mental disability (CMS/HCC) Unspecified mental retardation Tuberous sclerosis (CMS/HCC) Tuberous sclerosis [facility] Diagnosis Onychocryptosis- Primary Ingrowing nail Abscess of toe, right Toe pain, right Pain in soft tissues of limb [facility]* Diagnosis Contusion of left foot, initial encounter- Primary Onychocryptosis Ingrowing nail Toe pain, right Pain in soft tissues of limb Abscess of toe, right Venous insufficiency Unspecified venous (peripheral) insufficiency documented in this encounter [facility] Narrative - Reported* Type Description Date Medical History Unspecified intellectual disabil ities Medical History autism Medical History ADHD Medical History Seizure Disorder Medical History tuberous Sclerosis [facility] Other History general Narrative - Reported* Type Description Date Medical History Unspecified intellectual disabil ities Medical History autism Medical History ADHD Medical History Seizure Disorder Medical History tuberous Sclerosis Surgical History ORIF RT lateral malleolus fx Hospitalization History see above [facility] Other Hospital course Narrative No data available for this section [facility] No data available for this section [facility] No data available for this section [facility] Summary Purpose Family History No Family History [...] section and content) DATE CREATED AUTHOR 08/19/2017 [facility] DATE CREATED AUTHOR AUTHOR'S ORGANIZ ATION 07/30/2018 [facility] DATE CREATED AUTHOR AUTHOR'S ORGANIZ ATION 12/15/2021 [facility] DATE CREATED AUTHOR AUTHOR'S ORGANIZ ATION 04/17/2022 [facility] DATE CREATED AUTHOR AUTHOR'S ORGANIZ ATION 06/01/2022 [facility] DATE CREATED AUTHOR AUTHOR'S ORGANIZ ATION 08/21/2023 [place] [facility] DATE CREATED AUTHOR AUTHOR'S ORGANIZ ATION 08/22/2023 [place] [facility] DATE CREATED AUTHOR AUTHOR'S ORGANIZ ATION 08/28/2023 [place] [facility] DATE CREATED AUTHOR AUTHOR'S ORGANIZ ATION 09/10/2023 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 Relationship Specialty Start Date End Date Unallocated, Angely Ann MD [address] [place] [id number] PCP - General Family Medicine 02/05/23 Security Systems Engineer Relationship Specialty Start Date End Date Go Espinoza MD [address] [place] [address] PCP - General Family Medicine 02/09/24 Sue Patrick DO [address] [place] [address] Referring Physician Neurology 02/09/24 Security Systems Engineer Relationship Specialty Start Date End Date Go Espinoza MD [facility] [address] [place] [address] PCP - General Family Medicine 02/09/24 Sue Patrick DO [address] [place] [address] Referring Physician Neurology 02/09/24 Security Systems Engineer Relationship Specialty Start Date End Date Go Espinoza MD [address] [place] [address] PCP - General Family Medicine 02/09/24 Sue Patrick DO [address] [place] [address] Referring Physician Neurology 02/09/24 Goals (unrecognized section [...] BE BASED ON THE PRIMARY CLINICAL RECORDS. [facility] provides no warranty or guarantee of the accuracy or completeness of information in this document.
== END 2024-05-25 08:06 | disposition home or self-care (01) ==
LOC: MRI 08:06
PROVIDERS: PCP Family Medicine; Visit Provider Family Medicine
DX: M79.672 Pain in left foot (principal); M25.475 Effusion, left foot; M85.872 Other specified disorders of bone density and structure, left ankle and foot
CPT/HCPCS: 73718

== ENCOUNTER 2024-06-21 07:13 | Outpatient (OUT) | payer MEDICARE, MEDICAID, SELFPAY ==
[2024-06-21 08:20] LABS: Thyroid Stimulating Hormone 0.247 uIU/mL (0.358-3.740)
== END 2024-06-21 07:14 | disposition home or self-care (01) ==
LOC: LAB 07:14
PROVIDERS: PCP Family Medicine; Visit Provider Family Medicine
DX: E03.9 Hypothyroidism, unspecified (principal); Z79.899 Other long term (current) drug therapy
CPT/HCPCS: 36415; 84443

== ENCOUNTER 2024-07-19 23:40 | Emergency (ER) | payer MEDICARE, MEDICAID, SELFPAY ==
[2024-07-19 23:41] VITALS: BP 153/91; PULSE 64; TEMP 36.4; O2SAT 98
--- NOTE | 2024-07-19 23:46 | ED.HEATRA1 ---
HPI HPI - Head Injury General Chief complaint: Fall Stated complaint: FALL, HEAD INJURY Time Seen by Provider: 07/19/24 23:45 History of Present Illness HPI Narrative: MRDD resides in foster custodial. Reportedly fell out of bed tonight. found on all 4s on the floor with nose bleed. Patient not able to provide any history. He is asking for his mother. claim taker states he does act out like this when he is upset. He is screaming and asking for his mother and states he does not want to be here. He is denying any pain. Related Data Home Medications ?Medication ?Instructions ?Recorded ?Confirmed oxcarbazepine 600 mg tablet 600 mg PO BID 08/21/22 07/14/23 Held on 07/14/23. Instructions: dc paroxetine HCl 40 mg tablet 60 mg PO DAILY 08/21/22 07/14/23 Held on 07/14/23. Instructions: dc atorvastatin 40 mg tablet 40 mg PO DAILY 07/14/23 07/14/23 benztropine 1 mg tablet 1 mg PO TID 07/14/23 07/14/23 clonidine HCl 0.1 mg tablet 0.1 mg PO Q8H 07/14/23 07/14/23 docusate sodium 100 mg capsule 100 mg PO TID 07/14/23 07/14/23 fluocinonide 0.05 % topical topical .weekly 07/14/23 solution haloperidol 5 mg tablet 10 mg PO .evening 07/14/23 07/14/23 Allergies Allergy/AdvReac Type Severity Reaction Status Date / Time Pertussis Vaccines Allergy Unknown Verified 07/19/24 23:48 Review of Systems ROS Status of ROS unobtainable due to mental status PFSH PFS Social History Smoking status: Never smoker Exam Constitutional Vital Signs, click to edit/add: Last Vital Signs Temp 97.5 F L 07/19/24 23:41 Pulse 64 07/19/24 23:41 Resp 16 07/19/24 23:41 BP 153/91 H 07/19/24 23:41 Pulse Ox 98 07/19/24 23:41 O2 Del Method Room Air 07/19/24 23:41 Exam limitations: behavioral limitations HENMT Common normals: normocephalic and head/scalp atraumatic Other: no nasal deformity. No active bleeding. Mild facial abrasion. No swelling Eye Common normals: EOMs intact bilaterally Chest Common normals: inspection of chest normal and palpation of chest normal Respiratory Common normals: normal respiratory effort, no retractions, no use of accessory muscles and clear to auscultation bilaterally Cardio Common normals: regular rate, regular rhythm, S1 normal heart sound and S2 normal heart sound GI Common normals: Normal to inspection, nondistended, normoactive bowel sounds present, soft to palpation and non-tender Extremity Common normals: normal to inspection Neuro Common normals: CN's II-XII intact bilaterally and moves all extremities Psych Insight: poor Course Vital Signs Vital signs: Vital Signs Temperature 97.5 F L 07/19/24 23:41 Pulse Rate 64 07/19/24 23:41 Respiratory Rate 16 07/19/24 23:41 Blood Pressure 153/91 H 07/19/24 23:41 Pulse Oximetry 98 07/19/24 23:41 Oxygen Delivery Method Room Air 07/19/24 23:41 Temperature 97.5 F L 07/19/24 23:41 Pulse Rate 64 07/19/24 23:41 Respiratory Rate 16 07/19/24 23:41 Blood Pressure 153/91 H 07/19/24 23:41 Pulse Oximetry 98 07/19/24 23:41 Oxygen Delivery Method Room Air 07/19/24 23:41 MDM - Head Injury MDM Narrative Medical decision making narrative: patient reportedly fell out of bed at adult home care facility. reported nose bleed at the scene. Exam in ED without active nose bleed. CT C-spine, brain and facial bones with findings of acute nasal bone fractures. Patient stable and discharged home Discharge Plan Discharge Chief Complaint: Fall Clinical Impression: Fall, Fracture closed, nasal bone Patient Disposition: Home, Self-Care Prescriptions / Home Meds: No Action oxcarbazepine 600 mg tablet 600 mg PO BID paroxetine HCl 40 mg tablet 60 mg PO DAILY atorvastatin 40 mg tablet 40 mg PO DAILY benztropine 1 mg tablet 1 mg PO TID clonidine HCl 0.1 mg tablet 0.1 mg PO Q8H docusate sodium 100 mg capsule 100 mg PO TID fluocinonide 0.05 % solution TOPICAL .weekly haloperidol 5 mg tablet 10 mg PO .evening Print Language: Serbian Instructions: Nasal Fracture (ED) Additional Instructions: follow up with family doctor within one week Referrals: CHARISSA ESPINOZA DO [Primary Care Provider, Family Practice] - 1 week
--- OUTSIDE RECORDS SUMMARY | 2024-07-19 23:52 | XMS_ITS | CCD ---
Author Organization [facility] Care Team Providers Care Heel Former Name Role Phone Robbi PETERSEN Unavailable Unavailable ESPINOZA, GO A Unavailable Unavailable ESPINOZA, GO A Unavailable Unavailable Chaban, Kamal Unavailable Nalini, Cj Unavailable Espinoza, DO Go A Primary Care Provider [phone] DO Cj Gayle A Attending Provider PROVIDER, UNKNOWN Attending Unavailable PROVIDER, UNKNOWN Admitting Unavailable PROVIDER, UNKNOWN Admitting Unavailable PROVIDER, UNKNOWN Attending Unavailable SIMI EDWARDS Admitting Unavailable SIMI EDWARDS Attending Unavailable SIMI EDWARDS Referring Unavailable Unavailable Primary Care Provider Unavailabl e Espinoza, DO Go A Primary Care Provider DO Cj Gayle A Attending Provider [phone] Espinoza, DO Go A Primary Care Provider DO Cj Gayle A Attending Provider MD Nallely Parada Attending Provider Magdy Gaylein A Attending Unavailable Espinoza, Go [...] Nalini, Cj A Admitting Unavailable Espinoza, Go Ricci Primary Care [...] Primary Care Physician GO ESPINOZA Admitting Unavailable ESPINOZAGO Attending Unavailable ESPINOZA, GO Attending Unavailable ESPINOZA, GO Admitting Unavailable ESPINOZA, GO Attending Unavailable ESPINOZA, GO Admitting Unavailable ESPINOZA, GO Attending Unavailable ESPINOZAGO Admitting Unavailable Unallocated , Noms Provider Primary Care [facility] Go Espinoza MD Primary Care Provider Sue Patrick DO Unavailable SUMEET CALI Attending Unavailable ESPINOZA, GO Ricci Primary Care Unavailable SUMEET CALI Attending Unavailable ESPINOZAGO Primary Care Unavailable SQUERI, MEGAN Referring Unavailable GLENN FLORES Attending Unavailable GLENN FLORES Attending Unavailable GLENN FLORES Attending Unavailable GLENN FLORES Attending Unavailable GLENN FLORES Attending Unavailable GLENN FLORES Attending Unavailable ANA MARIA HSU Attending Unavailable ANA MARIA HSU Attending Unavailable GLENN FLORES Attending Unavailable Allergies Allergy Classification Reported Allergen(s) Allergy Type Date of Onset Reaction(s) Facility (1 source) PERTUSSIS VACCINE,FLUID; Translations: [PERTUSSIS VACCINE,FLUID] Propensity to adverse reactions to drug (disorder) 7 [facility] Repository (20 sources) PERTUSSIS VACCINES; Translations: [PERTUSSIS VACCINES] Propensity to adverse reactions to drug (disorder) 8 Unknown [facility] Repository (1 source) Pertussis Vaccine Drug Allergy 3 [facility] Repository (1 source) ARIPiprazole; Translations: [ARIPIPRAZOLE] Drug Allergy 8 [facility] Repository Medications Current Medications Medication Drug Class(es) Dates Sig (Normalized) Sig (Original) 8 hr acetaminophen 650 mg extended release oral tablet (20 sources) Start: 09-24-2021 take 650 mg by [...] 0 Active amLODIPine 5 mg oral tablet (17 sources) Dihydropyridine Calcium Channel Deena Start: 02-03-2024 [...] mg / cholecalciferol 200 unt oral tablet (18 sources) Vitamin D Start: 01-27-2023 take 1 [...] 1 ml denosumab 60 mg/ml prefilled syringe (18 sources) RANK Ligand Inhibitor Start: 07-07-2023 Prolia 60 MG/ML solution prefilled syringe 07/07/2023 Active Dentifrices (BIOTENE DRY MOUTH DENTAL) (3 sources) Dentifrices (BIO TENE DRY MOUTH DENTAL) by Dental route. Active Dentifrices (BIO TENE DRY MOUTH DENTAL) by Dental route. 0 Active docusate sodium 100 mg oral capsule (18 sources) take 1 capsule by mouth three times daily docusate sodium (Colace) 100 MG capsule TAKE ONE CAPSULE BY MOUTH 3 TIMES DAILY Active eucalyptol 0.92 mg/ml / menthol 0.42 mg/ml / methyl salicylate 0.6 mg/ml / thymol 0.64 mg/ml mouthwash (18 sources) Start: 01-28-20 23 Mouthwashes (Biotene Dry Mouth) liquid TWICE A DAY SWISH 15ML FOR 30 SEC THEN SPIT 01/27/2023 Active fluocinonide 0.5 mg/ml topical solution (18 sources) Corticosteroid Start: 03-10-19 24 fluocinonide (Lidex) 0.05 % external solution 03/10/2023 Active haloperidol 5 mg oral tablet (20 sources) Typical Antipsychotic Start: 09-25-19 22 take [...] BEDTIME Active levETIRAcetam 500 mg oral tablet (18 sources) Start: 01-27-2023 take 1 tablet by [...] Start: 01-27-2023 take 1 tablet by elba once daily levothyroxine (Synthroid, Levoxyl) 150 MCG [...] Active loratadine 10 mg disintegrating oral tablet (18 sources) take 1 tablet by mouth once daily loratadine (Claritin Reditabs) 10 MG disintegrating tablet Take 10 mg by mouth Daily Active LORazepam 1 mg oral tablet (2 sources) Benzodiazepine Start: 022 LORazepam 1 MG as directed before testing Orally once for 1 days Jan, Active losartan potassium 100 mg oral tablet (18 sources) Angiotensin 2 Receptor Deena Start: 023 take 1 tablet by mouth at bedtime losartan (Cozaar) 100 MG tablet Take 100 mg by mouth at bedtime 01/27/2023 Active Start: 01-27-2023 take 1 tablet by elba th at bedtime losartan (Cozaar) 50 MG tablet Take 50 mg by mouth at bedtime 01/27/2023 Active meloxicam 15 mg oral tablet (18 sources) Nonsteroidal Anti-inflammatory Drug Start: 01-27-2023 take 1 tablet by mouth once daily at bedtime meloxicam (Mobic) 15 MG tablet TAKE ONE TABLET BY MOUTH DAILY AT BEDTIME MOBIC 01/27/2023 Active Multiple Vitamin (Multivitamin) tablet (18 sources) Start: 01-27-2023 take 1 tablet by [...] chloride 10 meq extended release oral capsule (20 sources) Start: 01-27-2023 take 1 capsule by [...] mouthwash (5 sources) Start: 09-24-2021 Saliva Substit wiyot Combo No.9 (Biotene Dry Mouth Oral Rinse) mouthwash Active 5 ML PO As Directed September 23, 2021 11:00pm Start: 09-24-2021 Saliva Substit wiyot Combo No.9 (Biotene Dry Mouth Oral Rinse) mouthwash Active 5 ML PO As Directed September 24, 2021 12:00am traMADol hydrochloride 50 mg oral tablet (20 sources) Opioid Agonist Start: 09-24-2021 take 50 mg by mouth every four hours Tramadol Active 50 MG PO Q4H 42 7 September 23, 2021 11:00pm triamcinolone acetonide 1 mg/ml topical cream (18 sources) Corticosteroid triamcinolone (Kenalog) 0.1 % cream Apply topically 2 (two) times a day Active Problems Active Problems Problem Classification Problem Date Documented Date Episodic/Chronic Attention-deficit, conduct, and disruptive behavior disorders (20 sources) Disruptive behavior disorder; 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, unspecified] 08-06-2023 Chronic Chronic kidney disease (1 source) Chronic kidney disease, unspecified; Translations: [CHRONIC KIDNEY DISEASE UNSPECIFIED] Onset: 03-17-2022 Chronic Developmental disorders (20 sources) Unspecified intellectual disabilities; Translations: [Intellectual disability] Onset: 01-31-2021 08-06-2023 Chronic Disorders usually diagnosed in infancy, childhood, or adolescence (2 sources) Autistic disorder; Translations: [AUTISTIC DISORDER] Onset: 08-01-2015 Chronic Epilepsy; convulsions (20 sources) Epilepsy, unspecified, not intractable, without status [...] including migraine; Translations: [HEADACHE UNSPECIFIED] Onset: 09-25-2021 Joint disorders and dislocations; trauma-related (6 sources) Traumatic dislocation of joint of foot; Translations: [Dislocation of tarsometatarsal joint of left foot, initial encounter] 05-27-2024 Episodic Osteoporosis (4 sources) Age-related osteoporosis without current pathological fracture; Translations: [AGE-REL OSTEOPOR W/O CURR PATH FX] Onset: 08-01-2021 Chronic Other congenital anomalies (20 sources) Tuberous sclerosis syndrome; 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 Other congenital anomalies (1 source) Tuberous sclerosis Onset: 08-14-2021 Resolved: 08-14-2021 Chronic Other connective tissue disease (4 sources) Pain in right leg; Translations: [PAIN IN RIGHT LEG] Onset: 04-11-2022 Episodic Other connective tissue disease (18 sources) Myofascial pain syndrome; Translations: [Myalgia, other [...] Spondylosis; intervertebral disc disorders; other back problems (18 sources) Spasm of back muscles; Translations: [Muscle [...] 10-16-2021 Episodic Other aftercare (1 source) Other fdc (current) drug therapy; Translations: [OTH CORRECTION CURRENT DRUG THERAPY] Onset: 09-25-2021 Episodic Other liver diseases (18 sources) Alkaline phosphatase raised; Translations: [Abnormal levels [...] Free T3 [Mass/Vol] 1.8 pg/mL Low 2.0-4.4 [facility] Comment on above: Result Comment: Perf ormed at: [facility] [address] [id number] PhD Jarod Kumar Performed By: #### 2 [id number] #### [facility] [address] [place] [address] [id number] 08-20-2023 HbA1c (Bld) [Mass fraction] 5.1 % Normal <=5.9 [facility] Comment on above: Performed By: #### 7 [id number] #### [facility] [address] [place] [address] CBC w/Indiceson 08-19-2023 Erythrocyte distribution width (RBC) [Ratio] 13.2 % Normal 10.9-14.2 [facility] Comment on above: Performed By: #### 2 538300 #### [facility] [address] [place] [address] Hematocrit (Bld) [Volume fraction] 39.3 % Normal 37.7-49.0 [facility] Comment on above: Performed By: #### 2 [id number] #### [facility] [address] [place] [address] Hemoglobin (Bld) [Mass/Vol] 13.0 g/dL Low 13.5-17.5 [facility] Comment on above: Performed By: #### 2 922157 #### [facility] [address] [place] [address] MCH (RBC) [Entitic mass] 33.1 pg Normal 27.0-34.0 [facility] Comment on above: Performed By: #### 2 309719 #### [facility] [address] [place] [address] MCHC (RBC) [Mass/Vol] 33.2 g/dL Normal 31.4-36.0 [facility] Comment on above: Performed By: #### 2 544773 #### [facility] [address] [place] [address] MCV (RBC) [Entitic vol] 99.7 fL Normal 80.0-100.0 [facility] Comment on above: Performed By: #### 2 198945 #### [facility] [address] [place] [address] Platelet mean volume (Bld) [Entitic vol] 8.9 fL Normal 6.4-10.8 [facility] Comment on above: Performed By: #### 2 071049 #### [facility] [address] [place] [address] Platelets (Bld) [#/Vol] 156.0 E9/L Normal 150.0-500.0 [facility] Comment on above: Performed By: #### 2 438970 #### [facility] [address] [place] [address] RBC (Bld) [#/Vol] 3.9 E12/L Low 4.3-5.9 [facility] Comment on above: Performed By: #### 2 220885 #### [facility] [address] [place] [address] RBC size Nom (Bld) NORMAL Invalid Interpretation Code [facility] Comment on above: Performed By: #### 2 963601 #### [facility] [address] [place] [address] WBC corrected for nucl RBC Auto (Bld) [#/Vol] 5.3 E9/L Normal 4.0-11.0 [facility] Comment on above: Performed By: #### 2 810754 #### [facility] [address] [place] [address] CHEMISTRYOrdered By: SYSTEM SYSTEM on 08-19-2023 25-hydroxyvitamin [...] used for this result was chemiluminescence using [employer]'s Access Hybritech PSA reagent. Protein [Mass/Vol] 6.9 [...] 08-19-2023 Albumin [Mass/Vol] 4.1 g/dL Normal 3.3-5.0 [facility] Comment on above: Performed By: #### 2 960524 #### [facility] [address] [place] [address] Albumin/Globulin (S) [Mass conc ratio] 1.5 Normal 1.1-2.2 [facility] Comment on above: Performed By: #### 2 091181 #### [facility] [address] [place] [address] ALP [Catalytic activity/Vol] 161 Int._Unit/L High 21-98 [facility] Comment on above: Performed By: #### 2 049454 #### [facility] [address] [place] [address] ALT No additional P-5'-P [Catalytic activity/Vol] 30 Int._Unit/L Normal 6-46 [facility] Comment on above: Performed By: #### 2 [id number] #### [facility] [address] [place] [address] Anion gap [Moles/Vol] 10 mmol/L Normal 6-16 [facility] Comment on above: Performed By: #### 2 223683 #### [facility] [address] [place] [address] AST [Catalytic activity/Vol] 21 Int._Unit/L Normal 5-43 [facility] Comment on above: Performed By: #### 2 014087 #### [facility] [address] [place] [address] Bilirubin [Mass/Vol] 0.4 mg/dL Normal 0.0-1.1 [facility] Comment on above: Performed By: #### 2 651752 #### [facility] [address] [place] [address] Calcium [Mass/Vol] 8.9 mg/dL Normal 8.9-11.1 [facility] Comment on above: Performed By: #### 2 689900 #### [facility] [address] [place] [address] Chloride [Moles/Vol] 113 mmol/L High 101-111 [facility] Comment on above: Performed By: #### 2 027516 #### [facility] [address] [place] [address] CO2 [Moles/Vol] 24 mmol/L Normal 21-[address] [facility] Comment on above: Performed By: #### 2 178090 #### [facility] [address] [place] [address] Creatinine [Mass/Vol] 1.6 mg/dL High 0.5-1.3 [facility] Comment on above: Performed By: #### 2 275593 #### [facility] [address] [place] [address] Globulin (S) [Mass/Vol] 2.8 g/dL Normal 1.4-4.0 [facility] Comment on above: Performed By: #### 2 506886 #### [facility] [address] [place] [address] Glucose [Mass/Vol] 86 mg/dL Normal 55-199 [facility] Comment on above: Performed By: #### 2 822896 #### [facility] [address] [place] [address] Potassium [Moles/Vol] 4.8 mmol/L Normal 3.5-5.3 [facility] Comment on above: Performed By: #### 2 412296 #### [facility] [address] [place] [address] Protein [Mass/Vol] 6.9 g/dL Normal 6.0-7.8 [facility] Comment on above: Performed By: #### 2 143820 #### [facility] [address] [place] [address] Sodium [Moles/Vol] 142 mmol/L Normal 135-145 [facility] Comment on above: Performed By: #### 2 328330 #### [facility] [address] [place] [address] Urea nitrogen [Mass/Vol] 30 mg/dL High 5-21 [facility] Comment on above: Performed By: #### 2 377448 #### [facility] [address] [place] [address] Urea nitrogen/Creatinine [Mass ratio] 19 No Units Normal 10-20 [facility] Comment on above: Performed By: #### 2 765863 #### [facility] [address] [place] [address] Free T4on 08-19-2023 Free T4 [Mass/Vol] 0.56 ng/dL Low 0.58-1.64 [facility] Comment on above: Performed By: #### 2 364307 #### [facility] [address] [place] [address] HEMATOLOGYOrdered By: SYSTEM SYSTEM on 08-19-2023 Erythrocyte [...] 08-19-2023 Cholesterol [Mass/Vol] 108 mg/dL Low 120-200 [facility] Comment on above: Performed By: #### 2 275420 #### [facility] [address] [place] [address] Cholesterol in HDL [Mass/Vol] 34 mg/dL Invalid Interpretation Code [facility] Comment on above: Result Comment: '>= 60 LOW RISK' '<= 40 HIGH RISK' Performed By: #### 2 968415 #### [facility] [address] [place] [address] Cholesterol in LDL [Mass/Vol] 59 mg/dL Normal <=129 [facility] Comment on above: Performed By: #### 2 205543 #### [facility] [address] [place] [address] Cholesterol in VLDL [Mass/Vol] 19 mg/dL Normal 7-40 [facility] Comment on above: Performed By: #### 2 400596 #### [facility] [address] [place] [address] Triglyceride [Mass/Vol] 94 mg/dL Normal <=149 [facility] Comment on above: Performed By: #### 2 159371 #### [facility] [address] [place] [address] PSA Screen, Totalon 08-19-19 Prostate specific Ag [Mass/Vol] 0.4 ng/mL Normal 0.1-3.5 [facility] Comment on above: Result Comment: The concentration of PSA determined by different manufacturers can vary due to differences in assay methods and reagent specificity. Values obtained from different assay methods cannot be used interchangeably. The methodology used for this result was chemiluminescence using [employer]'s Access Hybritech PSA reagent. Performed By: #### 1 [id number] #### [facility] [address] [place] [address] Physician Orderon 08-19-2023 Physician Order [id number] 9#[id number] Normal [facility] TSHon 08-19-2023 TSH Qn 0.10 m[IU]/L Low 0.34-5.60 [facility] Comment on above: Performed By: #### 2 194833 #### [facility] [address] [place] [address] Vitamin D 25 Hydroxyon 08-18 25-hydroxyvitamin D3 [Mass/Vol] 42.7 ng/mL Normal 30.0-100.0 [facility] Comment on above: Performed By: #### 5 [id number] #### [facility] [address] [place] [address] eGFRon 08-19-2023 eGFR 50 mL/min/1.73 m2 Low >=59 [facility] Comment on above: Order Comment: Order added by Discern Expert. Performed By: #### 1 [id number] #### [facility] [address] [place] [address] T3 Freeon 02-27-2023 Free T3 [Mass/Vol] 2.0 pg/mL Invalid Interpretation Code 2.0-4.4 [facility] Comment on above: Result Comment: Perf ormed at: [facility] [address] [id number] PhD Jarod Kumar Performed By: #### 2 945452, 0560022, 8191335, 04603434, 678304173, 8686545, 3838357, 5136484, 6376770, 0167399 ####[facility] [address] [place] [address] CBC w/Indiceson 02-25-2023 Erythrocyte distribution width (RBC) [Ratio] 13.2 % Normal 10.9-14.2 [facility] Comment on above: Performed By: #### 2 732897, 6936517, 4504334, 74702288, 107965647, 1430740, 0532112, 5814651, 9595223, 3450586 #### [facility] [address] [place] [address] Hematocrit (Bld) [Volume fraction] 40.6 % Normal 37.7-49.0 [facility] Comment on above: Performed By: #### 2 653808, 3666192, 9473703, 49907924, 840728634, 1459012, 2526407, 2645888, 6224773, 4318704 #### [facility] [address] [place] [address] Hemoglobin (Bld) [Mass/Vol] 13.4 g/dL Low 13.5-17.5 [facility] Comment on above: Performed By: #### 2 383249, 1191679, 8767169, 01811355, 580001187, 9913888, 2442943, 1587475, 5558984, 6644084 #### [facility] [address] [place] [address] MCH (RBC) [Entitic mass] 32.7 pg Normal 27.0-34.0 [facility] Comment on above: Performed By: #### 2 939564, 0190062, 2218310, 37733736, 399292331, 5335357, 1688109, 2074873, 9014887, 9628511 #### [facility] [address] [place] [address] MCHC (RBC) [Mass/Vol] 33.0 g/dL Normal 31.4-36.0 [facility] Comment on above: Performed By: #### 2 521227, 3254289, 6345142, 84047526, 506278328, 3465918, 9500334, 2394515, 7149871, 1884213 #### [facility] [address] [place] [address] MCV (RBC) [Entitic vol] 99.1 fL Normal 80.0-100.0 [facility] Comment on above: Performed By: #### 2 903781, 7552327, 9950528, 19222462, 032553289, 9524738, 3466337, 9137260, 1525186, 5180694 #### [facility] [address] [place] [address] Platelet mean volume (Bld) [Entitic vol] 9.6 fL Normal 6.4-10.8 [facility] Comment on above: Performed By: #### 2 442631, 1790807, 0907875, 14843382, 113019904, 9097339, 5184262, 9180374, 4625216, 8704350 #### [facility] [address] [place] [address] Platelets (Bld) [#/Vol] 170.0 E9/L Normal 150.0-500.0 [facility] Comment on above: Performed By: #### 2 790216, 9879030, 7704288, 98949957, 864018214, 1922646, 5260427, 8241906, 5083869, 0975833 #### [facility] [address] [place] [address] RBC (Bld) [#/Vol] 4.1 E12/L Low 4.3-5.9 [facility] Comment on above: Performed By: #### 2 345258, 3482892, 1008368, 38455685, 338266890, 3641406, 3660620, 8107018, 0328810, 0451238 #### [facility] [address] [place] [address] WBC corrected for nucl RBC Auto (Bld) [#/Vol] 4.4 E9/L Normal 4.0-11.0 [facility] Comment on above: Performed By: #### 2 894235, 1705582, 4951186, 16878566, 890700854, 6149578, 7265660, 5214932, 5671140, 9616676 #### [facility] [address] [place] [address] CHEMISTRYOrdered By: SYSTEM SYSTEM on 02-25-2023 Albumin [...] 02-25-2023 Albumin [Mass/Vol] 4.1 g/dL Normal 3.3-5.0 [facility] Comment on above: Performed By: #### 2 593308, 1773436, 6644919, 67571784, 442776229, 5837330, 2329355, 4195789, 5004370, 6708046 #### [facility] [address] [place] [address] Albumin/Globulin [Mass ratio] 1.4 {ratio} Normal 1.1-2.2 [facility] Comment on above: Performed By: #### 2 017271, 1008064, 8888343, 66085908, 501291237, 0350005, 3878503, 5831142, 1500753, 9827766 #### [facility] [address] [place] [address] Alk Phos 158 Int._Unit/L High 21-[address] [facility] Comment on above: Performed By: #### 2 846921, 9084481, 1238615, 40193707, 607484839, 4994659, 8354852, 2692191, 4458046, 2885135 #### [facility] [address] [place] [address] ALT 32 Int._Unit/L Normal 6-46 [facility] Comment on above: Performed By: #### 2 609517, 5481892, 8276593, 92597324, 342456633, 3330895, 2208602, 9101002, 4433055, 6952114 #### [facility] [address] [place] [address] Anion gap [Moles/Vol] 12 mmol/L Normal 6-16 [facility] Comment on above: Performed By: #### 2 632173, 5691256, 3033689, 09355962, 568470824, 8712245, 4408218, 3291890, 2240366, 0093058 #### [facility] [address] [place] [address] AST 25 Int._Unit/L Normal 5-43 [facility] Comment on above: Performed By: #### 2 201201, 5856835, 7708043, 67354661, 323979879, 4091452, 4271738, 7293155, 6348023, 4871308 #### [facility] [address] [place] [address] Bili Total 0.3 mg/dL Normal 0.0-1.1 [facility] Comment on above: Performed By: #### 2 699741, 6466315, 0690489, 90863240, 553694428, 1269772, 7799382, 2675884, 2353761, 6541007 #### [facility] [address] [place] [address] BUN/Creat Ratio 17 No Units Normal 10-20 [facility] Comment on above: Performed By: #### 2 793644, 4620368, 6345796, 47430083, 378746523, 1984896, 6388054, 1478691, 1557164, 4673414 #### [facility] [address] [place] [address] Calcium [Mass/Vol] 8.9 mg/dL Normal 8.9-11.1 [facility] Comment on above: Performed By: #### 2 540738, 0110484, 3842708, 66161732, 043194556, 7633474, 9496605, 7219882, 5614890, 3443714 #### [facility] [address] [place] [address] Chloride [Moles/Vol] 113 mmol/L High 101-111 [facility] Comment on above: Performed By: #### 2 490515, 6046998, 9292914, 06810065, 681937157, 6477643, 6355513, 4662122, 1869372, 6757222 #### [facility] [address] [place] [address] CO2 [Moles/Vol] 22 mmol/L Normal 21-[address] [facility] Comment on above: Performed By: #### 2 885530, 5147172, 9729893, 85217718, 355376137, 3381426, 2911127, 8193846, 2849050, 3300126 #### [facility] [address] [place] [address] Creatinine [Mass/Vol] 1.5 mg/dL High 0.5-1.3 [facility] Comment on above: Performed By: #### 2 346426, 5354965, 5416360, 55388382, 194009297, 0578443, 2082565, 1555504, 0996798, 1924175 #### [facility] [address] [place] [address] Globulin (S) [Mass/Vol] 2.9 g/dL Normal 1.4-4.0 [facility] Comment on above: Performed By: #### 2 931308, 8847655, 8570673, 75626639, 677402852, 0007064, 3103899, 5342058, 9443142, 7483858 #### [facility] [address] [place] [address] Glucose [Mass/Vol] 90 mg/dL Normal 55-199 [facility] Comment on above: Performed By: #### 2 670567, 5339734, 9679078, 62530199, 131620608, 2730631, 9019586, 9883405, 3650109, 1717450 #### [facility] [address] [place] [address] Potassium [Moles/Vol] 4.8 mmol/L Normal 3.5-5.3 [facility] Comment on above: Performed By: #### 2 425817, 2564752, 8576344, 25225519, 406958039, 3396588, 1267834, 2792840, 1017872, 3728239 #### [facility] [address] [place] [address] Protein [Mass/Vol] 7.0 g/dL Normal 6.0-7.8 [facility] [place] Comment on above: Performed By: #### 2 539710, 2301729, 7358289, 85457001, 199952128, 1494543, 6137120, 5884412, 2567222, 4050340 #### [facility] [address] [place] [address] Sodium [Moles/Vol] 142 mmol/L Normal 135-145 [facility] Comment on above: Performed By: #### 2 432063, 5105011, 2027847, 29064886, 267769604, 1499222, 1352774, 6454418, 9219462, 6156493 #### [facility] [address] [place] [address] Urea nitrogen [Mass/Vol] 26 mg/dL High 5-21 [facility] Comment on above: Performed By: #### 2 848086, 6821857, 8748586, 33095055, 566117908, 4372308, 2618725, 5180642, 2888742, 5925002 #### [facility] [address] [place] [address] Free T4on 02-25-2023 Free T4 [Mass/Vol] 0.66 ng/dL Normal 0.58-1.64 [facility] Comment on above: Performed By: #### 2 475341, 9334791, 1905088, 00475084, 965316980, 6854984, 5190580, 6252393, 5598616, 6679700 #### [facility] [address] [place] [address] HEMATOLOGYOrdered By: Clarence Srivastava on 02-25-2023 Erythrocyte [...] 4.0 - 11.0 E9/L [facility] HemeAutoSS Ironon 01-03-2024 Iron 130 microgram/dL Normal 35-153 [facility] Comment on above: Performed By: #### 2 595799, 8392342, 7291466, 95928239, 885709424, 5565864, 6738897, 9798663, 0831432, 0580809 #### [facility] [place] [facility] [address] [place] [address] Lipid Panelon 02-25-2023 Cholesterol [Mass/Vol] 105 mg/dL Low 120-200 [facility] [place] Comment on above: Performed By: #### 2 265617, 9449653, 6417481, 74739686, 966398802, 1938132, 1221247, 4661478, 6800159, 2892189 #### [facility] [place] [facility] [address] [place] [address] Cholesterol in HDL [Mass/Vol] 40 mg/dL Invalid Interpretation Code [facility] Comment on above: Result Comment: '>= 60 LOW RISK' '<= 40 HIGH RISK' Performed By: #### 2 416249, 8007289, 6642405, 24374721, 935182529, 3277683, 8136557, 9793683, 0949303, 9976086 #### [facility] [place] [facility] [address] [place] [address] Cholesterol in LDL [Mass/Vol] 54 mg/dL Normal <=129 [facility] Comment on above: Performed By: #### 2 786618, 6594104, 6749416, 55231780, 706878718, 5514636, 2972025, 9592377, 6588135, 7580347 #### [facility] [place] [facility] [address] [place] [address] Cholesterol in VLDL [Mass/Vol] 16 mg/dL Normal 7-40 [facility] Comment on above: Performed By: #### 2 868134, 0445742, 5742392, 58294105, 262532672, 2925677, 9235658, 7715788, 9237245, 2090999 #### [facility] [address] [place] [address] Triglyceride [Mass/Vol] 81 mg/dL Normal <=149 [facility] Comment on above: Performed By: #### 2 793486, 5541649, 9971890, 52881088, 295108132, 9570756, 1336539, 8956381, 1661092, 3762536 #### [facility] [address] [place] [address] Physician Orderon 02-25-2023 Physician Order [id number] 5#[id number] Normal [facility] TSHon 02-25-2023 TSH Qn 0.03 m[IU]/L Low 0.34-5.60 [facility] Comment on above: Performed By: #### 2 666446, 8224132, 9336779, 39233498, 596658007, 1156608, 9344935, 9193272, 4355063, 9031417 #### [facility] [place] [facility] [address] [place] [address] Vit B12on 02-25-2023 Cobalamin (Vitamin B12) [Mass/Vol] 483 pg/mL Normal 50-1500 [facility] [place] Comment on above: Performed By: #### 2 894014, 3943476, 0138744, 75583737, 166108790, 8054353, 8035917, 4268186, 5438593, 5589082 #### [facility] [place] [facility] [address] [place] [address] Vitamin D 25 Hydroxyon 02-25 Vitamin D 25 Hydroxy 50.9 ng/mL Normal 30.0-100.0 [facility] Comment on above: Performed By: #### 2 397938, 2289202, 2532327, 82904100, 423373030, 9982437, 5175959, 4106588, 1872059, 3188008 ####[facility] [address] [place] [address] eGFRon 02-25-2023 eGFR 55 mL/min/1.73 m2 Low >=59 [facility] Comment on above: Order Comment: Order added by Discern Expert. Performed By: #### 2 781823, 1188032, 8465380, 84054945, 720105138, 6311791, 0270428, 0335899, 0045971, 2032041 #### [facility] [address] [place] [address] PSA Screen, Totalon 11-14-19 23 Prostate specific Ag [Mass/Vol] 0.5 ng/mL Normal 0.1-3.5 [facility] Comment on above: Result Comment: The concentration of PSA determined by different manufacturers can vary due to differences in assay methods and reagent specificity. Values obtained from different assay methods cannot be used interchangeably. The methodology used for this result was chemiluminescence using [employer]'s [employer] Hybritech PSA reagent. Performed By: #### 1 [id number] ####[facility] [address] [place] [address] Physician Orderon 11-12-2022 Physician Order [id number] 7#[id number]:127 Normal [facility] US KIDNEYS BLADDERon 023 US KIDNEYS BLADDER [...] NORMA ROSS Date: 2022-05-27 08:52 Normal [facility] XR PELVIS 1_2 VIEWSon 2022 [...] JONAH MAJANO Date: 2022-04-14 08:21 Normal [facility] XR HIP RT 2 3V WO PELVISon 0 04-10-2022 XR HIP RT 2 3V WO PELVIS EXAM: XR HIP RT. HISTORY: . Pain in right leg . COMPARISON: None. TECHNIQUE: 2 views FINDINGS: No fracture or dislocation of the hip is noted. Joint spaces well-maintained. Surrounding soft tissues are unremarkable. IMPRESSION: Negative right hip. Electronically authenticated by: NORMA FLORES Date: 2022-04-10 08:41 Normal [facility] Glucose Poct Glucometerson 0 04-09-2022 Commemt1 Normal [facility] Comment on above: Result Comment: Glu2 : WILL NOTIFY DR/RN PERFORMED BY: [facility] [address] [facility] [place] [address] PATHOLOGIST [employer] CHRISTINE FERNÁNDEZ M.D. Performed By: #### G JEAN PIERRE #### Point of Care testing , Glucose [Mass/Vol] 58 mg/dL Off scale low [facility] Comment on above: Result Comment: [facility] Glucose Reference Range is dependent on time and content of last meal. Glucose of more than 200 mg/dL in a nonstressed, ambulatory subject supports the diagnosis of Diabetes Mellitus. Performed By: #### G LULS #### Point of Care testing , PET tumor init tx strat sb-m ton 04-09-2022 PET tumor init tx strat sb-mt [facility] Main [place] [address] [place] [address] Nuclear Medicine Report Signed Patient: Delano Segovia MR#: [id number] : 1970 Acct:[id number] Age/Sex: 52 / M ADM Date: 04/09/22 Loc: Room: Type: [facility] Attending Dr: Nallely Parada MD Copies to: [...] Guzman Jr., D.O.04/09/2022 1:09 PM Dictation Location: [place] [address] Transcribed By: WENDY 04/09/22 1309 Dictated By: Panda De Guzman Jr, DO 04/09/22 1259 Signed By: 04/09/22 1309 Normal [facility] Glucose Glucometer (BldC) [M ass/Vol]Ordered By: Nallely Parada on 03-12-2022 Glucose [Mass/Vol] 95 mg/dL [facility] Comment on above: Random Glucose Refer ence Range is dependent on time and content of last meal. Glucose of more than 200 mg/dL in a nonstressed, ambulatory subject supports the diagnosis of Diabetes Mellitus. Glucose Poct Glucometerson 0 03-12-2022 Glucose [Mass/Vol] 95 mg/dL Normal [facility] Comment on above: Result Comment: [place] [facility] Glucose Reference Range is dependent on time and content of last meal. Glucose of more than 200 mg/dL in a nonstressed, ambulatory subject supports the diagnosis of Diabetes Mellitus. PERFORMED BY: [facility] [place] [address] PATHOLOGIST [employer] MANAGER CHRISTINE FERNÁNDEZ M.D. Performed By: #### G JEAN PIERRE #### Point of Care testing , CBC AUTO DIFFon 03-11-2022 BASO # 0.0 103/ul Normal 0.0-0.1 [facility] Comment on above: Performed By: #### C BC ####[facility] [address] [place] [address]Dr. Guille Mayo Basophils/100 WBC (Bld) 0.6 % Normal 0.2-2.0 [facility] Comment on above: Performed By: #### C BC ####[facility] [address] [place] [address]Dr. Guille Mayo EO # 0.2 103/ul Normal 0.0-0.7 [facility] Comment on above: Performed By: #### C BC ####[facility] [address] [place] [address]Dr. Guille Mayo Eosinophils/100 WBC (Bld) 2.8 % Normal 0.9-7.0 [facility] Comment on above: Performed By: #### C BC ####[facility] [address] [place] [address]Dr. Guille Mayo Erythrocyte distribution width (RBC) [Ratio] 12.6 % Normal 11.0-15.0 [facility] Comment on above: Performed By: #### C BC ####[facility] [address] [place] [address]Dr. Guille Mayo Hematocrit (Bld) [Volume fraction] 40.4 % Critically low 42.0-54.0 [facility] Comment on above: Performed By: #### C BC ####[facility] [address] [place], [place] [address]Dr. Guille Mayo Hemoglobin (Bld) [Mass/Vol] 13.7 g/dL Critically low 14.0-18.0 [facility] Comment on above: Performed By: #### C BC ####[facility] [address] [place], [place] [address]Dr. Guille Mayo IG # 0.02 10e3/ul Normal 0.00-0.03 [facility] Comment on above: Performed By: #### C BC ####[facility] [address] [place], [place] [address]Dr. Guille Mayo IG % 0.4 % Normal 0.0-0.5 [facility] Comment on above: Performed By: #### C BC ####[facility] [address] [place], [place] [address]Dr. Guille Gael LYMPH # 1.1 103/ul Critically low 1.2-3.8 [facility] Comment on above: Performed By: #### C BC ####[facility] [address] [place], [place] [address]Dr. Kylahizzy Mayo Lymphocytes/100 WBC (Bld) 20.8 % Normal 20.5-60.0 [facility] Comment on above: Performed By: #### C BC ####[facility] [address] [place], [place] [address]DrCarol Kylahizzy Mayo MANUAL DIFF REQ NO Normal [facility] Comment on above: Performed By: #### C BC ####[facility] [address] [place], [place] [address]Dr. Guille Mayo MCH (RBC) [Entitic mass] 32.3 pg Normal 25.9-34.0 [facility] Comment on above: Performed By: #### C BC ####[facility] [address] [place] [address]Dr. Guille Mayo MCHC (RBC) [Mass/Vol] 33.9 g/dL Normal 29.9-35.2 [facility] Comment on above: Performed By: #### C BC ####[facility] [address] [place], [place] [address]Dr. Guille Gael MCV (RBC) [Entitic vol] 95.3 fL Critically high 80.0-94.0 [facility] Comment on above: Performed By: #### C BC ####[facility] [address] [place], [place] [address]Dr. Guille Mayo MONO # 0.4 103/ul Normal 0.3-0.8 [facility] Comment on above: Performed By: #### C BC ####[facility] [address] [place], [place] [address]Dr. Kylahizzy Mayo Monocytes/100 WBC (Bld) 7.4 % Normal 1.7-12.0 [facility] Comment on above: Performed By: #### C BC ####[facility] [address] [place], [place] [address]Dr. Guille Gael NEUT # 3.7 103/ul Normal 1.4-6.5 [facility] Comment on above: Performed By: #### C BC ####[facility] [address] [place], [place] [address]Dr. Guille Mayo Neutrophils/100 WBC (Bld) 68.0 % Normal 43.0-75.0 [facility] Comment on above: Performed By: #### C BC ####[facility] [address] [place], [place] [address]Dr. Guille Mayo Platelet mean volume (Bld) [Entitic vol] 10.4 fL Normal 9.5-13.5 [facility] Comment on above: Performed By: #### C BC ####[facility] [address] [place] [address]Xt. Kylahizzy Mayo PLT 133 103/ul Critically low 150-450 [facility] Comment on above: Performed By: #### C BC ####[facility] [address] [place], [place] [address]AcCarol Monteroizzy Mayo RBC 4.24 106/ul Critically low 4.70-6.10 [facility] Comment on above: Performed By: #### C BC ####[facility] [address] [place] [address]Dr. Kylahizzy Mayo WBC 5.4 103/ul Normal 4.0-11.0 [facility] Comment on above: Performed By: #### C BC ####[facility] [address] [place] [address]DrCarol Mayo FREE T4on 03-11-2022 Free T4 [Mass/Vol] 0.68 ng/dL Critically low 0.76-1.46 [facility] Comment on above: Performed By: #### F T4 #### [facility] [address] [place] [address] [address] Guille Mayo LIPID PROFILEon 03-11-2022 CHOL-HDL RATIO NORM SEE BELOW Normal [facility] Comment on above: Result Comment: 3.3 - 4.4 LOW RISK 4.4 - 7.1 AVERAGE RISK 7.1 - 11.0 MODERATE RISK >11.0 HIGH RISK Performed By: #### L IPID, TSH, CMP #### [facility] [address] [place] [address] [address] Guille Mayo Cholesterol [Mass/Vol] 130 mg/dL Normal <=200 [facility] Comment on above: Performed By: #### L IPID, TSH, CMP #### [facility] [address] [place] [address] [address] Guille Mayo Cholesterol in HDL [Mass/Vol] 45 mg/dL Normal 40-60 [facility] Comment on above: Performed By: #### L IPID, TSH, CMP #### [facility] [address] [place] [address] [address] Guille Mayo Cholesterol in LDL [Mass/Vol] 67.6 mg/dL Normal [facility] Comment on above: Performed By: #### L IPID, TSH, CMP #### [facility] [address] [place] [address] [address] Guille Mayo Cholesterol.total/Cho lesterol in HDL [Mass ratio] 2.9 {ratio} Normal [facility] Comment on above: Performed By: #### L IPID, TSH, CMP #### [facility] [address] [place] [address] [address] Guille Mayo HDL NORMAL > or = 60 mg/dl - LOW CARDIOVASCULAR RISK <40 mg/dl - HIGH CARDIOVASCULAR RISK Normal [facility] Comment on above: Performed By: #### L IPID, TSH, CMP #### [facility] [address] [place] [address] [address] Guille Mayo LDL CALC NORMAL SEE BELOW Normal [facility] Comment on above: Result Comment: <100 mg/dl OPTIMAL 100 - 129 mg/dl NEAR OR ABOVE OPTIMAL 130 - 159 mg/dl BORDERLINE HIGH 160 - 189 mg/dl HIGH >190 mg/dl VERY HIGH Performed By: #### L IPID, TSH, CMP #### [facility] [address] [place] [address] [address] Guille Mayo Triglyceride [Mass/Vol] 87 mg/dL Normal <=150 [facility] Comment on above: Performed By: #### L IPID, TSH, CMP #### [facility] [address] [place] [address] [address] Guille Mayo VLDL CALC 17.4 mg/dL Normal [facility] Comment on above: Performed By: #### L IPID, TSH, CMP #### [facility] [address] [place] [address] [address] Guille Mayo PROF 14(COMP METB)on 023 Albumin [Mass/Vol] 3.8 g/dL Normal 3.4-5.0 [facility] Comment on above: Performed By: #### L IPID, TSH, CMP #### [facility] [address] [place] [address] [address] Guille Mayo Albumin/Globulin [Mass ratio] 1.0 {ratio} Normal [facility] Comment on above: Performed By: #### L IPID, TSH, CMP #### [facility] [address] [place] [address] Dr. Guille Mayo ALP [Catalytic activity/Vol] 217 U/L Critically high 46-116 [facility] Comment on above: Performed By: #### L IPID, TSH, CMP #### [facility] [address] [place] [address] Dr. Guille Mayo ALT [Catalytic activity/Vol] 38 U/L Normal 16-63 [facility] Comment on above: Performed By: #### L IPID, TSH, CMP #### [facility] [address] [place] [address] Dr. Guille Mayo Anion gap [Moles/Vol] 12.2 mmol/L Normal [facility] Comment on above: Performed By: #### L IPID, TSH, CMP #### [facility] [address] [place] [address] Dr. Guille Mayo AST [Catalytic activity/Vol] 32 U/L Normal 15-37 [facility] Comment on above: Performed By: #### L IPID, TSH, CMP #### [facility] [address] [place] [address] Dr. Guille Mayo Bilirubin [Mass/Vol] 0.3 mg/dL Normal 0.2-1.0 [facility] Comment on above: Performed By: #### L IPID, TSH, CMP #### [facility] [address] [place] [address] Dr. Guille Mayo Calcium [Mass/Vol] 9.3 mg/dL Normal 8.5-10.1 [facility] Comment on above: Performed By: #### L IPID, TSH, CMP #### [facility] [address] [place] [address] Dr. Guille Mayo Chloride [Moles/Vol] 106 mmol/L Normal 98-107 [facility] Comment on above: Performed By: #### L IPID, TSH, CMP #### [facility] [address] [place] [address] Dr. Guille Mayo CO2 [Moles/Vol] 27.2 mmol/L Normal 21.0-32.0 [facility] Comment on above: Performed By: #### L IPID, TSH, CMP #### [facility] [address] [place] [address] [address] Guille Mayo Creatinine [Mass/Vol] 1.31 mg/dL Critically high 0.70-1.30 [facility] Comment on above: Performed By: #### L IPID, TSH, CMP #### [facility] [address] [place] [address] [address] Guille Mayo EGFR-AF ESTONIAN >60 Normal >=60 [facility] Comment on above: Performed By: #### L IPID, TSH, CMP #### [facility] [address] [place] [address] [address] Guille Mayo EGFR-NON AF ESTONIAN 57 mL/min/1.73m2 Critically low >=60 [facility] Comment on above: Performed By: #### L IPID, TSH, CMP #### [facility] [address] [place] [address] [address] Guille Mayo Globulin (S) [Mass/Vol] 3.8 g/dL Normal [facility] Comment on above: Performed By: #### L IPID, TSH, CMP #### [facility] [address] [place] [address] [address] Guille Mayo Glucose [Mass/Vol] 98 mg/dL Normal 74-106 [facility] Comment on above: Performed By: #### L IPID, TSH, CMP #### [facility] [address] [place] [address] [address] Guille Mayo Potassium [Moles/Vol] 4.4 mmol/L Normal 3.5-5.1 [facility] Comment on above: Performed By: #### L IPID, TSH, CMP #### [facility] [address] [place] [address] [address] Guille Mayo Protein [Mass/Vol] 7.6 g/dL Normal 6.4-8.2 [facility] Comment on above: Performed By: #### L IPID, TSH, CMP #### [facility] [address] [place], [place] [address] Dr. Guille Mayo Sodium [Moles/Vol] 141 mmol/L Normal 136-145 [facility] Comment on above: Performed By: #### L IPID, TSH, CMP #### [facility] [address] [place], [place] [address] Dr. Guille Mayo Urea nitrogen [Mass/Vol] 27.0 mg/dL Critically high 7.0-18.0 [facility] Comment on above: Performed By: #### L IPID, TSH, CMP #### [facility] [address] [place], [place] [address] Dr. Guille Mayo Urea nitrogen/Creatinine [Mass ratio] 20.6 mg/mg Normal [facility] Comment on above: Performed By: #### L IPID, TSH, CMP #### [facility] [address] [place], [place] [address] Dr. Guille Mayo TSHon 03-11-2022 TSH 0.278 uIU/mL Critically low 0.358-3.740 [facility] Comment on above: Performed By: #### L IPID, TSH, CMP ####[facility] [address] [place], [place] [address]Dr. Guille Mayo XR ankle RT min 3V*on 2021 XR ankle RT min 3V* [place] [address] XRay Report Signed Patient: Delano Segovia MR#: [id number] : 1970 Acct:[id number] Age/Sex: 51 / M ADM Date: 01/06/22 Loc: [facility] Room: Type: [facility] Attending Dr: Cj Gayle DO Copies [...] Geovanny Magallanes M.D.01/06/2022 3:54 PM Dictation Location: [place] [address] Transcribed By: [facility] 01/06/22 1554 Dictated By: Geovanny Magallanes DO 01/06/22 1553 Signed By: 01/06/22 1554 Normal [facility] XR ankle RT min 3V* [facility] [employer] Other XR ankle RT min 3V* [facility] [employer] Other XR ankle RT min 3V* [address] [place] [address] [employer] Other XR ankle RT min 3V* [place] [address] [employer] Other XR ankle RT min 3V* XRay Report [employer] Other XR ankle RT min 3V* Signed [employer] Other XR ankle RT min 3V* Patient: Delano Segovia MR#: [id number] [employer] Other XR ankle RT min 3V* : 1970 Acct:[id number] [employer] Other XR ankle RT min 3V* Age/Sex: 51 / M ADM Date: 01/06/22 [employer] Other XR ankle RT min 3V* Loc: [facility] Room: Type: [facility] [employer] Other XR ankle RT min 3V* Attending Dr: Cj Gayle [employer] Other XR ankle RT min 3V* Copies to: Cj Gayle [employer]W Other XR ankle RT min 3V* Ordering Provider: Cj Gayle DO [employer] Other XR ankle RT min 3V* Date of Service: 01/06/22 [employer] Other XR ankle RT min 3V* XR/XR ankle RT min 3V*: Displaced fracture of lateral malleolus of right [employer] Other XR ankle RT min 3V* fibula, sub [employer] Other XR ankle RT min 3V* 3views Rightankle [place] [employer] Other XR ankle RT min 3V* COMPARISON:11/22/21 [employer] Other XR ankle RT min 3V* HISTORY: Status post ORIF RIGHT lateral malleolus fracture [employer] Other XR ankle RT min 3V* No hardware failure. Adequate bony alignment. Continued healing of distal fibular fracture. [employer] Other XR ankle RT min 3V* XR/XR ankle RT min 3V* [employer] Other XR ankle RT min 3V* IMPRESSION: Healing fracture. No hardware failure. [employer] Other XR ankle RT min 3V* Impression dictated by: Geovanny Magallanes M.D.01/06/2022 3:54 PM [employer] Other XR ankle RT min 3V* Dictation Location: [place] [address] [employer] Other XR ankle RT min 3V* Transcribed By: WENDY 01/06/22 [facility] [employer] Other XR ankle RT min 3V* Dictated By: Geovanny Magallanes DO 01/06/22 [facility] [employer] Other XR ankle RT min 3V* Signed By: [employer] Other XR ankle RT min 3V* 01/06/22 1554 No rt [employer] Other Progress Noteson 12-04-2021 [employer] Authentication Interface Message Text Normal [employer] Authentication Interface Message Text ----- Saturday, December 04, 2021 at 11:22:04 AM ----- ----- Provider: [id number] Cris Bautista -- Clinic: [place] ----- [facility], Pt is ready for tx. Pt presented with caries Radiograph taken today: none Discussed the medical necessity of the problem with the pt. Instructions given to pt. Caregiver understood the situation and is okay with medications for today. Pt will come back should things get worse. Guardianship: PARENTS - Nabila (Marlin) Luca [address] [place] [address] / Email: [email or web address] Communicated with caregiver that the pt was placed on the OR list and we will call with appt. Limited exam completed by Dr. Cohen [place]. OR ----- Signed on Saturday, December 04, 2021 at 11:51:43 AM ----- ----- Provider: [id number] Tucker Myers DDS -- Clinic: [place] ----- Normal [employer] XR ankle RT min 3V*on 2021 XR ankle RT min 3V* [facility] Main [address] [address] XRay Report Signed Patient: Delano Segoiva MR#: [id number] : 1970 Acct:[id number] Age/Sex: 51 / M ADM Date: 11/22/21 Loc: [facility] Attending Dr: Cj Gayle DO Copies [...] FRACTURE. Impression dictated by: Panda De Guzman Jr. D.OCarol11/22/2021 2:39 PM Dictation Location: RADIO--09 Transcribed By: WENDY 11/22/21 1439 Dictated By: Panda De Guzman Jr, DO 11/22/21 1438 Signed By: 11/22/21 1439 Normal [facility] XR ankle RT min 3V*on 2021 XR ankle RT min 3V* [place] [address] XRay Report Signed Patient: Delano Segovia MR#: [id number] : 1970 Acct:[id number] Age/Sex: 51 / M ADM Date: 10/16/21 Loc: [facility] Room: Type: [facility] Attending Dr: Cj Gayle DO [...] EVIDENCE OF HARDWARE COMPLICATION. Impression dictated by: Muna Cee Jr.OCarol10/16/2021 1:10 PM Dictation Location: RADIO-PC-11 Transcribed By: WENDY 10/16/21 1310 Dictated By: Panda De Guzman Jr, DO 10/16/21 1307 Signed By: 10/16/21 1310 Normal [facility] XR ankle RT min 3V* [facility] [employer] Other XR ankle RT min 3V* [facility] Main [facility] [employer] Other XR ankle RT min 3V* [address] [facility] [employer] Other XR ankle RT min 3V* MelJUAN [address] [employer] Other XR ankle RT min 3V* [facility] [employer] Other XR ankle RT min 3V* Signed [employer] Other XR ankle RT min 3V* Patient: Delano Segovia MR#: [id number] [employer] Other XR ankle RT min 3V* : 1970 Acct:[id number] [employer] Other XR ankle RT min 3V* Age/Sex: 51 / M ADM Date: 10/16/21 [employer] Other XR ankle RT min 3V* Loc: [facility] Room: Type: [facility] [employer] Other XR ankle RT min 3V* Attending Dr: Cj Gayle DO [employer] Other XR ankle RT min 3V* Copies to: Cj Gayle DO [employer] Other XR ankle RT min 3V* Ordering Provider: Cj Gayle DO [employer] Other XR ankle RT min 3V* Date of Service: 10/16/21 [employer] Other XR ankle RT min 3V* XR/XR ankle RT min 3V*: Displaced fracture of lateral malleolus of right [employer] Other XR ankle RT min 3V* fibula, sub Nort [employer] Other XR ankle RT min 3V* RIGHT ANKLE - 3 views [employer] Other XR ankle RT min 3V* CLINICAL HISTORY: ORIF right lateral malleolus fracture. Follow up [employer] Other XR ankle RT min 3V* COMPARISON: Intraoperative study 09/24/2021 [employer] Other XR ankle RT min 3V* FINDINGS: [employer] Other XR ankle RT min 3V* syndesmotic screw without evidence of hardware complication. Fracture line is still evident [employer] Other XR ankle RT min 3V* suggestive of incomplete healing. Medial malleolar fracture is unchanged.. Soft tissue swelling. [employer] Other XR ankle RT min 3V* Plantar spurring. [employer] Other XR ankle RT min 3V* XR/XR ankle RT min 3V* [employer] Other XR ankle RT min 3V* IMPRESSION: [employer] Other XR ankle RT min 3V* NO EVIDENCE OF HARDWARE COMPLICATION. [employer] Other XR ankle RT min 3V* Impression dictated by: Panda De Guzman Jr., D.OCarol10/16/2021 1:10 PM [employer] Other XR ankle RT min 3V* Dictation Location: [place] [address] [employer] Other XR ankle RT min 3V* Transcribed By: WENDY 10/16/21 1310 [employer] Other XR ankle RT min 3V* Dictated By: Panda De Guzman Jr, DO 10/16/21 1307 [employer] Other XR ankle RT min 3V* Signed By: [employer] Other XR ankle RT min 3V* 10/16/21 1310 No rth [employer] Other ECG 12 lead ECGon 09-24-2021 ECG 12 lead ECG [address] [address] Electrocardiograph Report Signed Patient: Delano Segovia MR#: [id number] : 1970 Acct:[id number] Age/Sex: 51 / M ADM Date: 09/24/21 Loc: [place] Room: Type: [facility] Attending Dr: Cj Gayle DO Ordering Provider: [...] By Zafar Spicer DO 09/24 1909 Normal [facility] XR ankle RT min 3V*on 2021 XR ankle RT min 3V* [facility] [address] [address] XRay Report Signed Patient: Delano Segovia MR#: [id number] : 1970 Acct:[id number] Age/Sex: 51 / M ADM Date: 09/24/21 Loc: [place] Room: Type: [facility] Attending Dr: Cj Gayle DO [...] Guzman Jr., D.O.09/24/2021 4:10 PM Dictation Location: [place] [address] Transcribed By: [facility] 09/24/21 1610 Dictated By: Panda De Guzman Jr DO 09/24/21 1609 Signed By: 09/24/21 1610 Normal [facility] COVID-19 FRon 09-23-2021 SARS-CoV-2 (COVID-19) RNA GARY+probe Ql (Unsp spec) Negative Normal Negative [facility] Comment on above: Order Comment: Comme nt OR 09/24/21 Healthcare Worker?: N Result Comment: Testing for SARS-CoV-2 by RT-PCR This test was developed and its performance characteristics determined by [employer] and validated at the [facility]. This test has not been FDA [...] is terminated or revoked sooner. PERFORMED BY: [place] [address] PATHOLOGIST BRAND COMMUNICATIONS MANAGER CHRISTINE FERNÁNDEZ M.D. Performed By: #### C OVID 19 [facility] #### [address] COVID-19 Positive/NegativeOr dered By: Cj Gayle on 09-23-2021 SARS-CoV-2 (COVID-19) N gene GARY+probe Ql (Resp) Negative Negative [facility] Comment on above: Testing for SARS-CoV -2 by RT-PCR This test was developed and its performance characteristics determined by [employer] ([employer]) and validated at the [facility]. This test has not been FDA [...] BASO # 0.0 103/ul Normal 0.0-0.1 [facility] Comment on above: Performed By: #### C BC ####[facility] [address] [place], [place] [address]Dr. Guille Mayo Basophils/100 WBC (Bld) 0.2 % Normal 0.2-2.0 [facility] Comment on above: Performed By: #### C BC ####[facility] [address] [place], [place] [address]Dr. Yilan Mayo EO # 0.1 103/ul Normal 0.0-0.7 [facility] Comment on above: Performed By: #### C BC ####[facility] [address] [place], [place] [address]Dr. Yilan Mayo Eosinophils/100 WBC (Bld) 1.2 % Normal 0.9-7.0 [facility] Comment on above: Performed By: #### C BC ####[facility] [address] [place], [place] [address]Dr. Guille Mayo Erythrocyte distribution width (RBC) [Ratio] 12.2 % Normal 11.0-15.0 [facility] Comment on above: Performed By: #### C BC ####[facility] [address] [place] [address]Dr. Guille Mayo Hematocrit (Bld) [Volume fraction] 38.0 % Critically low 42.0-54.0 [facility] Comment on above: Performed By: #### C BC ####[facility] [address] [place] [address]Dr. Guille Mayo Hemoglobin (Bld) [Mass/Vol] 12.8 g/dL Critically low 14.0-18.0 [facility] Comment on above: Performed By: #### C BC ####[facility] [address] [place], [place] [address]Dr. Guille Gael IG # 0.03 10e3/ul Normal 0.00-0.03 [facility] Comment on above: Performed By: #### C BC ####[facility] [address] [place], [place] [address]Dr. Guille Gael IG % 0.4 % Normal 0.0-0.5 [facility] Comment on above: Performed By: #### C BC ####[facility] [address] [place], [place] [address]Dr. Guille Gael LYMPH # 0.9 103/ul Critically low 1.2-3.8 [facility] Comment on above: Performed By: #### C BC ####[facility] [address] [place], [place] [address]Dr. Kylahizzy Mayo Lymphocytes/100 WBC (Bld) 10.7 % Critically low 20.5-60.0 [facility] Comment on above: Performed By: #### C BC ####[facility] [address] [place], [place] [address]Dr. Kylahizzy Mayo MANUAL DIFF REQ NO Normal [facility] Comment on above: Performed By: #### C BC ####[facility] [address] [place], [place] [address]Dr. Guille Mayo MCH (RBC) [Entitic mass] 32.2 pg Normal 25.9-34.0 [facility] Comment on above: Performed By: #### C BC ####[facility] [address] [place] [address]Dr. Guille Mayo MCHC (RBC) [Mass/Vol] 33.7 g/dL Normal 29.9-35.2 [facility] Comment on above: Performed By: #### C BC ####[facility] [address] [place] [address]Dr. Guille Mayo MCV (RBC) [Entitic vol] 95.7 fL Critically high 80.0-94.0 [facility] Comment on above: Performed By: #### C BC ####[facility] [address] [place] [address]Dr. Guille Mayo MONO # 0.7 103/ul Normal 0.3-0.8 [facility] Comment on above: Performed By: #### C BC ####[facility] [address] [place], [place] [address]Dr. Guille Gael Monocytes/100 WBC (Bld) 9.0 % Normal 1.7-12.0 [facility] Comment on above: Performed By: #### C BC ####[facility] [address] [place], [place] [address]Dr. Guille Mayo NEUT # 6.4 103/ul Normal 1.4-6.5 [facility] Comment on above: Performed By: #### C BC ####[facility] [address] [place] [address]Dr. Guille Gael Neutrophils/100 WBC (Bld) 78.5 % Critically high 43.0-75.0 [facility] Comment on above: Performed By: #### C BC ####[facility] [address] [place], [place] [address]Dr. Guille Gael Platelet mean volume (Bld) [Entitic vol] 9.9 fL Normal 9.5-13.5 [facility] Comment on above: Performed By: #### C BC ####[facility] [address] [place], [place] [address]Kr. Guille Mayo PLT 152 103/ul Normal 150-450 [facility] Comment on above: Performed By: #### C BC ####[facility] [address] [place], [place] [address]Of. Guille Mayo RBC 3.97 106/ul Critically low 4.70-6.10 [facility] Comment on above: Performed By: #### C BC ####[facility] [address] [place], [place] [address]Gj. Guille Mayo WBC 8.1 103/ul Normal 4.0-11.0 [facility] Comment on above: Performed By: #### C BC ####[facility] [address] [place], [place] [address]Tv. Gu[address] HEAD WO CONon 09-18-2021 [...] SANDY DÍAZ Date: 2021-09-18 15:44 Normal [facility] Covid-19 PCR ([facility])on 08-24 SARS-CoV-2 (COVID-19) RNA GARY+probe Ql (Unsp spec) Not detected Normal NOT DETECTED [facility] Comment on above: Result Comment: [...] for this test is supported by the [place] of Health and Human Service's declaration that [...] longer be used). Performed By: #### [facility] ####[facility] [address] [place], [place] [address]Dr. Guille Mayo PROF CHEM 8 (BAS METB)on Anion gap [Moles/Vol] 12.4 mmol/L Normal [facility] Comment on above: Performed By: #### B MP ####[facility] [address] [place], [place] [address]Dr. Guille Mayo Calcium [Mass/Vol] 8.7 mg/dL Normal 8.5-10.1 [facility] Comment on above: Performed By: #### B MP ####[facility] [address] [place], [place] [address]Dr. Guille Mayo Chloride [Moles/Vol] 107 mmol/L Normal 98-107 [facility] Comment on above: Performed By: #### B MP ####[facility] [address] [place], [place] [address]Dr. Guille Mayo CO2 [Moles/Vol] 28.0 mmol/L Normal 21.0-32.0 [facility] Comment on above: Performed By: #### B MP ####[facility] [address] [place], [place] [address]Dr. Guille Mayo Creatinine [Mass/Vol] 1.45 mg/dL Critically high 0.70-1.30 [facility] Comment on above: Performed By: #### B MP ####[facility] [address] [place] [address]Dr. Guille Mayo EGFR-AF ESTONIAN >60 Normal >=60 [facility] Comment on above: Performed By: #### B MP ####[facility] [address] [place] [address]Dr. Guille Mayo EGFR-NON AF ESTONIAN 51 mL/min/1.73m2 Critically low >=60 [facility] Comment on above: Performed By: #### B MP ####[facility] [address] [place] [address]Dr. Kylahizzy Gael Glucose [Mass/Vol] 87 mg/dL Normal 74-106 [facility] Comment on above: Performed By: #### B MP ####[facility] [address] [place] [address]Dr. Guille Mayo Potassium [Moles/Vol] 4.4 mmol/L Normal 3.5-5.1 [facility] Comment on above: Performed By: #### B MP ####[facility] [address] [place], [place] [address]Dr. Guille Gael Sodium [Moles/Vol] 143 mmol/L Normal 136-145 [facility] Comment on above: Performed By: #### B MP ####[facility] [address] [place] [address]Dr. Kylahizzy Gael Urea nitrogen [Mass/Vol] 24.0 mg/dL Critically high 7.0-18.0 [facility] Comment on above: Performed By: #### B MP ####[facility] [address] [place] [address]Dr. Guille Mayo Urea nitrogen/Creatinine [Mass ratio] 16.6 mg/mg Normal [facility] Comment on above: Performed By: #### B MP ####[facility] [address] [place], [place] [address]Dr. Guille Mayo XR CHEST 1 Von 09-18-2021 [...] by: SANDY DÍAZ Date: 2021-09-18 15:36 Normal [facility] CT CHEST WO CONon 08-02-2021 CT CHEST [...] by: NORMA ROSS Date: 2021-08-02 08:52 Normal [facility] XR DEXA BONE DENSITYon 07-31 XR DEXA [...] by: NORMA ROSS Date: 2021-07-31 16:14 Normal [facility] Anesthesia Attestationon [employer] Authentication Interface Message Text Anesthesia Attestation ATTESTATION OF INFORMED CONSENT FOR ANESTHESIA Anesthesia options were discussed with the patient and/or legal welding equipment sales representative. The risks, benefits and alternatives were reviewed. Questions regarding anesthesia were answered. Patient and/or legal welding equipment sales representative knows such anesthetics and procedures may be performed by Resident physicians, Certified Anesthesiologist Assistants, or Certified Nurse Anesthetists under the supervision of a physician. The patient /or the patient's legal welding equipment sales representative agree with the plan for anesthesia. Normal [facility] [employer] Anesthesia Postprocedure Zo simmons 01-25-2021 [employer] Authentication Interface Message Text Anesthesia Postoperative Assessment: [...] ANESTHESIA COMPLICATIONS: No complications documented. Normal [facility] [employer] Anesthesia Transfer Of Careo n 01-25-2021 [employer] Authentication Interface Message Text Patient taken to [...] Simi Edwards DDS Anesthesiologist: Jero Peralta MD Faith Healer: Anson Schwartz MD DENTAL RESTORATIONS (Bilateral ) [...] Secured via: Taped 01/25/21 1056 Site Assessment [facility] 01/25/21 1056 All non-working IVs have been [...] was received. Anson Schwartz MD Normal [facility] [employer] Blood Attestationon 01-26-20 [employer] Authentication Interface Message Text Blood Attestation ATTESTATION OF INFORMED CONSENT FOR BLOOD The transfusion of blood and/or blood components were discussed with the patient and/or legal welding equipment sales representative. The risks, benefits and alternatives were reviewed. Questions regarding blood transfusions were answered. The patient /or the patient's legal welding equipment sales representative agree with the plan for transfusion of blood and/or blood components. 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 Procedures: Full mouth X-ray 03414 Exam 30491 Cleaning 39109 [address] 78357 Fluoride 97704 Excisional biopsy [id number] No data filed Surgeon(s): Surgeon(s): Simi Edwards DDS Staff: Search Developer Nurse: Deborah Chapman RN; Crystal Anderson RN [employer] Machine Operator: Carolyn López DDS Anesthesia: General Anesthesiologist: Jero Peralta MD Faith Healer: Anson Schwartz MD Specimen(s): ID Type Source [...] López DDS 01/25/2021 12:11 PM Normal [facility] [employer] OP Noteon 01-25-2021 [employer] Authentication Interface Message Text Surgical Case Number Data Unavailable Operating Room Data Unavailable Preoperative Diagnosis(es): Dental caries [584949] Autism spectrum disorder F84.0 Moderate intellectual disability F79 Seizure disorder G40.89 Postoperative Diagnosis(es): Autism spectrum disorder F84.0 Moderate intellectual disability F79 Seizure disorder G40.89 Dental caries [052216] 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 uafpvtz-kwuixvepiw-b cellular pertussis (BOOSTRIX) 5-2.5-18.5 LF-MCG/0.5 injection Inject 0.5 mL into the muscle. Dictated by: Carolyn López DDS: Simi Joyner DDS was present for the critical portions of the procedure. 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 * wgfhnfn-yagacfzglj-o cellular pertussis (BOOSTRIX) 5-2.5-18.5 LF-MCG/0.5 injection Inject 0.5 mL into the muscle. Dictated by: Carolyn López DDS: Simi Joyner DDS was present for the critical portions of the procedure. Carolyn López DDS 01/25/2021 12:18 PM Normal [facility] [employer] Anesthesia Preprocedure Moshe pandya 01-24-2021 [employer]uel [employer] Cash[employer] Authentication Interface Message Text ASA: 3 No [...] the history and physical examination. 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 Scheduled for surgery 01/25/2021. Normal [facility] [employer] AUD - Progress Noteson 04-20 Protein mass conc Pt. referred for hearing evaluation by Dr. Espinoza, accompanied by Caitie, a direct care provider from [facility]. Pt. returns today after having ears cleaned out. Pt. denied ear pain at the time of testing. Completed evaluation, resorting to play audiometry for pure tone testing. See AUD-Assessments for Report/Results. DX CODES: H90.3 sensorineural hearing loss bilateral Normal [facility] Coding Summary.on 04-20-2018 Coding Summary. CODING DATE: 04/20/2018 FINAL [facility] STATUS: PAYOR: Medicare APC DESCRIPTION [...] CphT Date Saved: 04/20/2018 09:11 pm Normal [facility] AUD - Progress Noteson 03-31 Protein mass conc pt. referred for hearing evaluation by D. Espinoza, DO, accompanied by Darius direct care provider from [facility]. Otoscopy revealed cerumen in the right ear canal clocking view of the tympanic membrane, left ear with moderate cerumen but tympanic membrance visible. Discussed with Saurabh, did not complete evaluation today. He will return after bilateral ear cleaning. Called and spoke to [facility]/Nursing/Ainsley and advised her of the above. Normal [facility] Mohit 09-09-2016 Alanine aminotransferase (ALT) 35 U/L Normal <[address] [facility] Soni 09-09-2016 Aspartate aminotransferase (AST) 26 U/L Normal 15-[address] [facility] Albuminon 09-09-2016 Albumin 4.5 g/dL Normal 3.4-5.[address] [facility] BUNon 09-09-2016 Urea nitrogen 21 mg/dL High 5-[address] [facility] Creatinineon 09-09-2016 Creatinine 1.21 mg/dL High 0.50-1.[address] [facility] Electrolyteson 09-09-2016 Chloride 107 mmol/L High 95-[address] [facility] CO2 24 mmol/L Normal 24-[address] [facility] Potassium molar conc 4.4 mmol/L Normal 3.7-5.3 [facility] Sodium 141 mmol/L Normal 135-[address] [facility] Vital Signs Date Time Vital Sign Value Performing Clinician Facility 07-11-2024 09:55-0400 Body height 172.7 cm Glenn Flores DPM Work Phone: [facility] 07-11-2024 09:55-0400 Body mass index (BMI) [Ratio] 28.13 kg/m2 Glenn Flores DPM Work Phone: [facility] 07-11-2024 09:55-0400 Body weight 83.92 kg Glenn Flores DPM Work Phone: [facility] 07-11-2024 09:55-0400 Respiratory rate 16 /min Glenn Flores DPM Work Phone: [facility] 06-17-2024 10:03-0400 Body height 172.7 cm Glenn Flores DPM Work Phone: [facility] 06-17-2024 10:03-0400 Body mass index (BMI) [Ratio] 28.13 kg/m2 Glenn Brown DPM Work Phone: [facility] 06-17-2024 10:03-0400 Body weight 83.92 kg Glenn Brown DPM Work Phone: [facility] 06-17-2024 10:03-0400 Respiratory rate 16 /min Glenn Brown DPM Work Phone: [facility] 05-27-2024 09:46-0400 Body height 172.7 cm Glenn Flores DPM Work Phone: [facility] 05-27-2024 09:46-0400 Body mass index (BMI) [Ratio] 28.13 kg/m2 Glenn Brown DPM Work Phone: [facility] 05-27-2024 09:46-0400 Body weight 83.92 kg Glenn Brown DPM Work Phone: [facility] 05-27-2024 09:46-0400 Respiratory rate 16 /min Glenn Mark DPM Work Phone: [facility] 05-18-2024 16:06-0400 Body height 172.7 cm Glenn Flores DPM Work Phone: [facility] 05-18-2024 16:06-0400 Body mass index (BMI) [Ratio] 28.13 kg/m2 Glenn Brown DPM Work Phone: [facility] 05-18-2024 16:06-0400 Body weight 83.92 kg Glenn Mark DPM Work Phone: [facility] 05-18-2024 16:06-0400 Diastolic blood pressure 90 mm[Hg] Glenn Brown DPM Work Phone: [facility] 05-18-2024 16:06-0400 Heart rate 69 /min Glenn Flores DPM Work Phone: [facility] 05-18-2024 16:06-0400 Systolic blood pressure 139 mm[Hg] Glenn Flores DPM Work Phone: [facility] 04-15-2024 09:29-0500 Body height 172.7 cm Glenn Flores DPM Work Phone: [facility] 04-15-2024 09:29-0500 Body mass index (BMI) [Ratio] 28.13 kg/m2 Glenn Flores DPM Work Phone: [facility] 04-15-2024 09:29-0500 Body weight 83.92 kg Glenn Flores DPM Work Phone: [facility] 04-15-2024 09:29-0500 Diastolic blood pressure 82 mm[Hg] Glenn Flores DPM Work Phone: [facility] 04-15-2024 09:29-0500 Heart rate 71 /min Glenn Flores DPM Work Phone: [facility] 04-15-2024 09:29-0500 Systolic blood pressure 138 mm[Hg] Glenn Flores DPM Work Phone: [facility] 02-09-2024 10:52-0500 Body height 172.7 cm Ana Maria Gillmor ORTHODONTIC LABORATORY TECHNICIAN Work Phone: [facility] 02-09-2024 10:52-0500 Body mass index (BMI) [Ratio] 28.13 kg/m2 Ana Maria Gillmor ORTHODONTIC LABORATORY TECHNICIAN Work Phone: [facility] 02-09-2024 10:52-0500 Body weight 83.92 kg Ana Maria Gillmor ORTHODONTIC LABORATORY TECHNICIAN Work Phone: [facility] 02-09-2024 10:52-0500 Diastolic blood pressure 90 mm[Hg] Ana Maria Gillmor ORTHODONTIC LABORATORY TECHNICIAN Work Phone: [facility] 02-09-2024 10:52-0500 Heart rate 69 /min Ana Maria Gillmor ORTHODONTIC LABORATORY TECHNICIAN Work Phone: [facility] 02-09-2024 10:52-0500 Systolic blood pressure 139 mm[Hg] Ana Maria Gillmor ORTHODONTIC LABORATORY TECHNICIAN Work Phone: [facility] 01-06-2022 12:30-0500 Body height 177.8 cm Cj Gayle Other [employer] Other 01-06-2022 12:30-0500 Body mass index (BMI) [Ratio] 27.69 kg/m2 Cj Gayle Other [employer] Other 01-06-2022 12:30-0500 Body weight 87.54 kg Cj Gayle Other [employer] Other 09-24-2021 17:03-0400 Diastolic blood pressure 100 mm[Hg] DO Go Espinoza Work Phone: [facility] 09-24-2021 17:03-0400 Heart rate 79 /min DO Go Espinoza Work Phone: [facility] 09-24-2021 17:03-0400 Respiratory rate 16 /min DO Go Espinoza Work Phone: [facility] 09-24-2021 17:03-0400 SaO2% (BldA) [Mass fraction] 94 % DO Go Espinoza Work Phone: [facility] 09-24-2021 17:03-0400 Systolic blood pressure 156 mm[Hg] DO Go Espinoza Work Phone: [facility] 09-24-2021 15:05-0400 Body temperature 97.1 [degF] DO Go Espinoza Work Phone: [facility] 09-24-2021 15:05-0400 Inhaled oxygen flow rate 6 L/min DO Go Espinoza Work Phone: [facility] 09-24-2021 14:22-0400 Body height 172.72 cm DO Go Espinoza Work Phone: [facility] 09-24-2021 14:22-0400 Body mass index (BMI) [Ratio] 29.6 kg/m2 DO Go Espinoza Work Phone: [facility] 09-24-2021 14:22-0400 Body weight 88.4 kg DO Go Espinoza Work Phone: [facility] 08-14-2021 10:45-0400 Body height 177.8 cm Estebanred Kassynoemi Other [employer] Other 08-14-2021 10:45-0400 Body mass index (BMI) [Ratio] 27.55 kg/m2 Estebanred Parada Other [employer] Other 08-14-2021 10:45-0400 Body temperature 97 [degF] Nallely Parada Other [employer] Other 08-14-2021 10:45-0400 Body weight 87.09 kg Nallely Tal Other [employer] Other 08-14-2021 10:45-0400 Diastolic blood pressure 84 mm[Hg] Nallely Parada Other [employer] Other 08-14-2021 10:45-0400 Respiratory rate 20 /min Estebanred Parada Other [employer] Other 08-14-2021 10:45-0400 SaO2% (BldA) [Mass fraction] 98 % Nallely Parada Other [employer] Other 08-14-2021 10:45-0400 Systolic blood pressure 132 mm[Hg] Nallely Parada Other [employer] Other Encounters Encounter Date Encounter Type Care Provider Facility Start: 07-11-2024 End: 07-11-2024 Bamboo flowsheet Glenn Flores DPM Work Phone: [facility] Start: 07-11-2024 End: 07-11-2024 Bamboo flowsheet Glenn Radhames Brown DPM Work Phone: [facility] Start: 07-11-2024 End: 07-11-2024 Office outpatient visit 25 minutes Glenn Radhames Flores DPM Work Phone: [facility] Comment on above: Lisfranc dislocation , left, initial encounter (Primary Dx) Start: 07-11-2024 End: 07-11-2024 ambulatory GLENN FLORES Not Available Start: 06-17-2024 End: 06-17-2024 Bamboo flowsheet Glenn Radhames Brown DPM Work Phone: [facility] Start: 06-17-2024 End: 06-17-2024 Bamboo flowsheet Glenn Radhames Brown DPM Work Phone: [facility] Start: 06-17-2024 End: 06-17-2024 ambulatory GLENN FLORES Not Available Start: 06-17-2024 End: 06-17-2024 Office outpatient visit 25 minutes Glenn Radhmaes Flores DPM Work Phone: [facility] Comment on above: Lisfranc dislocation , left, initial encounter (Primary Dx) Start: 05-30-2024 End: 05-30-2024 ambulatory SUMEET SWANSON Facility:[facility] Start: 05-27-2024 End: 05-27-2024 Bamboo flowsheet Glnen Radhames Brown DPM Work Phone: [facility] Start: 05-27-2024 End: 05-27-2024 Bamboo flowsheet Glenn Radhames Brown DPM Work Phone: [facility] Start: 05-27-2024 End: 05-27-2024 Office outpatient visit 25 minutes Glenn Flores DPM Work Phone: [facility] Comment on above: Lisfranc dislocation , left, initial encounter (Primary Dx) Start: 05-27-2024 End: 05-27-2024 ambulatory GLENN FLORES Not Available Start: 05-18-2024 End: 05-18-2024 Office outpatient visit [...] 04-15-2024 Office outpatient visit 15 minutes Glenn Flores DPM Work Phone: [facility] Comment on above: Onychocryptosis (Meredith manuel Dx); Abscess of toe, right; Toe pain, right Start: 04-15-2024 End: 04-15-2024 ambulatory GLENN FLORES Not Available Start: 02-09-2024 End: 02-09-2024 Bamboo flowsheet Ana Maria Gillmor ORTHODONTIC LABORATORY TECHNICIAN [facility] Start: 02-09-2024 End: 02-09-2024 Bamboo flowsheet Ana Maria Hsu ORTHODONTIC LABORATORY TECHNICIAN [facility] Start: 02-09-2024 End: 02-09-2024 Office outpatient visit 25 minutes Ana Maria Tianrosie ORTHODONTIC LABORATORY TECHNICIAN [facility] Comment on above: Seizure disorder (CM S/HCC) (Primary Dx); Frequent falls; Mental disability (CMS/HCC); Tuberous sclerosis (CMS/HCC) Start: 02-09-2024 End: 02-09-2024 ambulatory ANA MARIA TIANRosie Not Available Start: 01-16-2024 End: 01-16-2024 Letter encounter [facility] Start: 11-10-2023 End: 11-10-2023 ambulatory SUMEET SWANSON Facility:[facility] Start: 08-19-2023 End: 08-19-2023 Lab Drop off GO ESPINOZA [facility] Start: 08-19-2023 End: 08-19-2023 ambulatory GO ESPINOZA Facility[facility] Start: 08-06-2023 End: 08-06-2023 ambulatory ANA MARIA NAHEDBRIANNA Not Available Start: 02-25-2023 End: 02-25-2023 Lab Drop off GO ESPINOZA [facility] Start: 02-25-2023 End: 02-25-2023 ambulatory GO ESPINOZA Facility:[facility] Start: 11-12-2022 End: 11-12-2022 ambulatory GO ESPINOZA Facility:[facility] Start: 11-12-2022 End: 11-12-2022 Lab Drop off GO ESPINOZA [facility] Start: 05-27-2022 End: 04-05-[address] GO ESPINOZA Facility:[facility] Start: 04-24-2022 Letter encounter Vadim patton Start: 04-11-2022 End: 04-12-[address] GO ESPINOZA Facility:[facility] Start: 04-10-2022 End: 04-11-[address] GO ESPINOZA Facility:[facility] Start: 04-09-2022 Telephone encounter Nallely Parada [facility] Start: 04-09-2022 End: 04-09-2022 ambulatory Go Espinoza Facility:[facility] Start: 03-12-2022 End: 03-12-2022 ambulatory Go Espinoza Facility:[facility] Start: 03-12-2022 End: 03-12-2022 ambulatory DO Go Espinoza Work Phone: [facility] Work Phone: Start: 03-12-2022 End: 03-12-2022 Patient encounter procedure DO Go Espinoza Work Phone: [facility] Work Phone: Start: 03-11-2022 End: 03-12-[address] GO ESPINOZA Facility:[facility] Start: 02-06-2022 End: 02-06-2022 ambulatory Nallely Parada Other [employer] Other Start: 02-06-2022 Telephone encounter Nallely Parada [facility] Start: 01-07-2022 End: 01-07-2022 ambulatory Cj Gayle Other [employer] Other Start: 01-07-2022 Telephone encounter Cj Gayle [facility] Start: 01-06-2022 Postop follow up vis it related to original px Cj Gayle [facility] Start: 01-06-2022 End: 01-06-2022 ambulatory Cj Gayle Facility:[facility] Start: 01-06-2022 End: 01-06-2022 ambulatory DO Go Espinoza Work Phone: [facility] Work Phone: Start: 01-06-2022 End: 01-06-2022 Patient encounter procedure DO Go Espinoza Work Phone: [facility] Start: 12-04-2021 End: 12-06-2021 ambulatory UNKNOWN PROVIDER Facility:[facility] Start: 12-04-2021 End: 12-06-2021 Patient encounter procedure Ly [facility] Work Phone: [facility] Start: 11-22-2021 Postop follow up vis it related to original px Cj Nalini [facility] Start: 11-22-2021 End: 11-22-2021 ambulatory Cj A CleveFoundation [facility] Other Start: 11-22-2021 End: 11-22-2021 Patient encounter procedure DO Go Espinoza Work Phone: [facility] Start: 10-16-2021 Postop follow up vis it related to original px Cj Nalini [facility] Start: 10-16-2021 End: 10-16-2021 ambulatory Cj A [facility] [employer] Other Start: 10-16-2021 End: 10-16-2021 Patient encounter procedure DO Go Espinoza Work Phone: [facility] Start: 09-24-2021 End: 09-24-2021 ambulatory Cj A Nalini Facility:[facility] Start: 09-24-2021 End: 09-24-2021 Admission to same day surgery center DO Go Espinoza Work Phone: [facility] [place] Start: 09-23-2021 End: 09-23-2021 ambulatory Cj A Nalini Facility:[facility] Start: 09-23-2021 End: 09-23-2021 Patient encounter procedure DO Go Espinoza Work Phone: [facility] Start: 09-18-2021 End: 09-18-2021 ambulatory TRAN MORALEZ . Facility:[facility] Start: 08-14-2021 End: 08-14-2021 ambulatory Nallely Parada Other [facility] Other Start: 08-14-2021 Office outpatient ne w 45 minutes Nallely Parada [facility] Start: 08-01-2021 End: 08-02-[address] GO ESPINOZA Facility:[facility] Start: 07-31-2021 End: 08-01-[address] GO ESPINOZA Facility:[facility] Start: 01-25-2021 End: 01-26-2021 ambulatory SIMI MEADOWS Facility:[facility] Start: 01-25-2021 ambulatory UNKNOWN PROVIDER Facili ty:[facility] Start: 09-09-2016 End: 09-09-2016 Ambulatory Robbi PETERSEN [facility] Procedures Date Procedure Procedure Detail Performing Clinician Start: 01-06-2022 X-ray of right ankle DO Go Espinoza Work Phone: Start: 11-22-2021 X-ray of right ankle DO Goolga Espinoza Work Phone: Start: 10-16-2021 X-ray of [...] 10-10-2025 Lipid panel [facility] Start: 09-21-2024 End: 09-21-2024 Patient encounter procedure 09/21/2024 2:00 PM EDT Office Visit [facility] [address] [facility] [address] [place] [id number] Ana Maria Hsu, ORTHODONTIC LABORATORY TECHNICIAN [address] [place]ver[place] S[facility] JHAVERI Start: 08-04-2024 End: 08-04-2024 Patient encounter procedure [facility] Start: 07-11-2024 End: 07-11-2024 Patient encounter procedure 07/11/2024 9:50 AM EDT Office Visit [facility] [address] [place] [phone] Glenn Flores DPM [address] [address] Lisfranc dislocation, left, initial encounter (Primary Dx) [facility] Comment on above: Lisfranc dislocation , left, initial encounter (Primary Dx) Start: 05-27-2024 End: 05-27-2024 Patient encounter procedure 05/27/2024 9:40 AM EDT Office Visit [facility] [address] [place] [phone] Glenn Flores DPM [address] [address] Arrived [facility] Comment on above: Arrived Start: 05-18-2024 End: 05-18-2024 Patient encounter procedure 05/18/2024 4:00 PM EDT Office Visit [facility] [address] [place] [phone] Glenn Flores DPDoyle [address] [address] Arrived [facility] Comment on above: Arrived Start: 04-15-2024 End: 04-15-2024 Patient encounter procedure 04/15/2024 9:30 AM EST Office Visit [facility] [address] [place] [phone] Glenn Flores DPM [address] [place] [address] Arrived [facility] Comment on above: Arrived Start: 02-09-2024 End: 02-09-2024 Patient encounter procedure 02/09/2024 10:40 AM EST Office Visit [facility] [address] [place] [address] Ana Maria Hsu NP [address] [place], [place] Arrived [facility] [place] [address] [facility] Comment on above: Arrived Start: 10-25-2023 COVID-19 Vaccine () COVID-19 Vaccine () [facility] Start: 10-25-2023 Influenza vaccination Influenza Vacc ine (#1) [facility] Start: 11-23-2021 Influenza vaccination Influenza Vacc ine (#1) [facility] Start: 10-16-2021 X-ray of right ankle XR ankle RT min 3V* [facility] Start: 10-16-2021 End: 10-16-2021 Patient encounter procedure Departed Clinical [facility] Start: 09-24-2021 [facility] Work Phone: Start: 09-24-2021 [facility] Work Phone: Start: 08-21-2021 COVID-19 [...] colon [facility] Start: 01-10-2003 Lipid panel Cholesterol [facility] Start: 01-01-1998 Annual wellness visit Annual W ellness Visit ([id number]) [facility] Start: 01-10-1987 Hepatitis A (HAV) Vaccine (optional start 19+ years) Hepatitis A (HAV) Vaccine (optional start 19+ years) [facility] Start: 01-10-1987 Hepatitis B vaccination Hepati tis B (HBV) Vaccine (1 of 3 - 19+ 3-dose series) [facility] Start: 01-10-1986 Hepatitis C screening Hepatitis C An tibody [facility] Start: 01-10-1986 Tetanus + diphtheria + acellular pertussis vaccine (product) [facility]ap [facility] Start: 01-10-1983 HIV screening HIV Test [facility] Start: 1970 Medicare Annual Wellness (AWV) Medicare Annual Wellness (AWV) [facility] Start: 1970 Screening for malign ant neoplasm of colon [facility] Patient referral [facility] Work Phone: Immunizations Immunization Date Immunization Notes Care Provider [facility] 12-10-2022 influenza virus vaccine, unspecified formulation Ana Maria Hsu ORTHODONTIC LABORATORY TECHNICIAN Work Phone: [facility] 06-26-2021 Pfizer (12+ yrs) SARS-COV-2 (COVID-19) vaccine, mRNA, spike protein, LNP, pres. free, 30 mcg/0.3mL dose, syeda-sucrose (FPW=513) Ly Ruy RD Work Phone: [facility] 12-19-2020 COVID-19 Vaccine Pfi zer - Documentation Purposes Only Nallely Parada Other [employer] Other 12-19-2020 influenza, injectabl e, quadrivalent, preservative free Ly Ruy RD Work Phone: [facility] 12-19-2020 influenza virus vaccine, unspecified formulation Ly Ruy RD Work Phone: [facility] 03-27-2020 COVID-19 Vaccine Pfi zer - Documentation Purposes Only Nallely Elenanoemi Other [employer] Other 03-06-2020 COVID-19 Vaccine Pfi zer - Documentation Purposes Only Nallely Parada Other [employer] Other 11-30-2019 influenza, injectabl e, quadrivalent, preservative [...] RDH Work Phone: [facility] 12-14-2014 influenza, injectabl e, quadrivalent, preservative free Ly Ruy RDH Work Phone: [facility] 01-10-2009 novel [id number], preservative-free, injectable Ly Ruy RDH Work Phone: [facility] 01-07-2008 influenza virus vaccine, whole virus Ly Ruy RDH Work Phone: [facility] 12-08-2006 influenza virus vaccine, whole virus Ly Ruy RDH Work Phone: [facility] 06-25-2005 tetanus and diphther ia toxoids, adsorbed, preservative free, for adult use (5 Lf of tetanus toxoid and 2 Lf of diphtheria toxoid) Ly Ruy RDH Work Phone: [facility] diphtheria, tetanus toxoids and acellular pertussis vaccine, unspecified formulation Ly Ruy RDH Work Phone: [facility] [id number] shabnam lular pertussis (BOOSTRIX) 5-2.5-18.5 LF-MCG/0.5 injection [facility] Payers Date Payer Category Payer Self-pay [id number] 2019 Dental --Stand Alone DENTAL-MEDI CAID [id number] 2019 Medicaid [id number]. [id number] 1996 Medicare [id number] [id number]. [id number] 1996 Medicare FFS MEDICARE [id number]. [id number] 1968 Unknown [id number] 2.16.840.1.684850.3.579.2.7 32 1968 Unknown [id number] 2.16.840.1.920957.3.579.2.7 32 1968 Unknown [id number] 2.16.840.1.650628.3.579.2.7 32 1968 Unknown [id number] 2.16.840.1.633680.3.579.2.5 93 1968 Unknown [id number] 2.16.840.1.429500.3.579.2.5 93 1968 Unknown [id number] 2.16.840.1.512907.3.579.2.5 93 1968 Unknown [id number] 2.16.840.1.650134.3.579.2.5 93 1968 Unknown [id number] 2.16.840.1.964887.3.579.2.7 27 1968 Unknown [id number] 2.16.840.1.538512.3.579.2.7 27 1968 Unknown [id number] 2.16.840.1.734450.3.579.2.7 27 1968 Unknown [id number] 2.16.840.1.188356.3.579.2.1 259 1968 Unknown [id number] 2.16.840.1.472755.3.579.2.1 259 1968 Unknown [id number] 2.16.840.1.019996.3.579.2.1 259 1968 Unknown [id number] 2.16.840.1.350237.3.579.2.1 259 1968 Unknown [id number] 2.16.840.1.004093.3.579.2.1 259 1968 Unknown [id number] 2.16.840.1.515815.3.579.2.1 259 1968 Unknown [id number] 2.16.840.1.804381.3.579.2.1 259 1968 Unknown [id number] 2.16.840.1.357351.3.579.2.1 259 1968 Unknown [id number] 2.16.840.1.862611.3.579.2.1 259 1959 Medicaid [id number] 2.16.840.1.902111.19 1959 Medicare [id number] 2.16.840.1.124402.19 Medicare [id number] Unknown [employer] [id number] Unknown [id number] 2.16.840.1.436361.3.579.2.5 31 Unknown [id number] 2.16.840.1.695670.3.579.2.5 31 Unknown [id number] 2.16.840.1.668064.3.579.2.5 31 Unknown [id number] 2.16.840.1.420939.3.579.2.5 31 Unknown [id number] 2.16.840.1.634832.3.579.2.5 31 Unknown [id number] 2.16.840.1.167689.3.579.2.5 31 Unknown [id number] 2.16.840.1.756176.3.579.2.5 31 Unknown [id number] 2.16.840.1.551668.3.579.2.5 93 Unknown [id number] 2.16.840.1.183422.3.579.2.5 93 Unknown [id number] 2.16.840.1.770670.3.579.2.5 93 Social History Date Type Detail Facility Start: 08-06-2023 End: 06-17-2024 Sex Assigned At [facility] Start: 09-24-2021 End: 02-05-2023 Tobacco smoking status CAIS Never smoked tobacco (finding) [facility] Start: 1970 Sex Assigned At Male [facility] Tobacco smoking status CAIS Tobacco smoking consumption unknown [facility] Start: 1970 Sex Assigned At Not on file [facility] Tobacco smoking status No Smoking Status Entered [facility] Start: 03-01-2019 Sex Male (finding) [facility] Start: 02-05-2023 Tobacco use and exposure Smokeless tobacco non-user [facility] Start: 08-06-2023 End: 07-11-2024 Alcoholic beverage intake Lifetime non-drinker (finding) [facility] Start: 08-06-2023 End: 06-17-2024 History of Social function [facility] NEGATED: Highlighted rowStart: NINF History of tobacco use Passive smoker [facility] Medical Equipment Procedure Code Equipment Code Equipment Origin al Text Equipment Identifier Dates ORIF, fracture, ankle CANCELLOUS COARSE 7.5CC FDA Start: 09-24-2021 ORIF, fracture, ankle Orthopaedic bone screw, non-bioabsorbable, non-sterile ()[id number] FDA Start: 09-24-2021 ORIF, fracture, ankle Orthopaedic bone screw, non-bioabsorbable, non-sterile ()[id number] FDA Start: 09-24-2021 ORIF, fracture, ankle Orthopaedic fixation plate, non-bioabsorbable, sterile ()[id number] FDA Start: 09-24-2021 ORIF, fracture, ankle Orthopaedic bone screw, non-bioabsorbable, non-sterile ()[id number] FDA Start: 09-24-2021 ORIF, fracture, ankle Orthopaedic bone screw, non-bioabsorbable, non-sterile ()[id number] FDA Start: 09-24-2021 ORIF, fracture, ankle Orthopaedic bone screw, non-bioabsorbable, non-sterile ()[id number] FDA Start: 09-24-2021 ORIF, fracture, ankle Orthopaedic bone screw, non-bioabsorbable, non-sterile ()[id number] FDA Start: 09-24-2021 ORIF, fracture, ankle CANCELLOUS COARSE 7.5CC FDA Start: 09-24-2021 ORIF, fracture, ankle CANCELLOUS COARSE 7.5CC FDA Start: 09-24-2021 ORIF, fracture, ankle CANCELLOUS COARSE 7.5CC FDA Start: 09-24-2021 ORIF, fracture, ankle CANCELLOUS COARSE 7.5CC FDA Start: 09-24-2021 Goals Date Patient Goal Desired Activity /State Clinical Notes 01-10-2021 to 07-11-2024 Glenn Flores, DP - 07/11/2024 9:50 AM EDTGlenn Flores, DPM - 06/17/2024 9:50 AM EDTGlenn Flores, DPM - 05/27/2024 9:40 AM Vani Flores, DP - 05/18/2024 4:00 PM EDT Note Date & Type Note Facility 07-11-2024 History of Present illness Narrative Patient: Delano Segovia : 1970 PCP: Go Espinoza MD SUBJECTIVE Patient presents today for follow up of left Lisfranc fracture and has been in walking boot with positive improvement. Patient states some improvement with boot Patient has mental health issues with issues with good communication as far as pain to his left foot and presents today with caregiver Allergies: Allergies Allergen Reactions Pertussis Vaccines Unknown [...] negative drainage from the right medial hallux. diminished Edema to dorsum of left foot with negative ecchymosis VASC: Palpable pedal pulses bilaterally NEURO: Gross sensation intact to bilateral feet ORTHO: negative palpation left forefoot with +5/5 dorsiflexion plantar flexion inversion eversion of left foot with positive pain on palpation to the left Lisfranc joint Negative pain on palpation left cuboid MRIscan results bone marrow edema present to base of 2nd metatarsal and 1st metatarsal no significant bony displacement noted additional bone marrow edema to lateral aspect of the cuboid May represent signal changes of the Lisfranc ligament injury with no significant bony displacement identified and may correspond with nondisplaced fracture of the lateral aspect of the cuboid ASSESSMENT 1. Lisfranc dislocation, left, initial encounter PLAN Patient to continue with oral anti - inflammatories as needed for pain and recommended OTC medications such as tylenol or Ibuprofen Continue with walking boot the next 3 weeks we will obtain x-rays that point in time and may progress out of boot after the next 3 weeks Glenn Flores DPM documented in this encounter [facility] 06-17-2024 History of Present illness Narrative Patient: Delano Segovia : 1970 PCP: Go Espinoza MD SUBJECTIVE Patient presents today for follow up of left Lisfranc fracture and has been in walking boot with improvement. Patient has mental health issues with issues with good communication as far as pain to his left foot and presents today with caregiver Allergies: Allergies Allergen Reactions Pertussis Vaccines Unknown [...] plantar flexion inversion eversion of left foot with diminished pain on palpation to the left Lisfranc joint Negative pain on palpation left cuboid MRIscan results bone marrow edema present to base of 2nd metatarsal and 1st metatarsal no significant bony displacement noted additional bone marrow edema to lateral aspect of the cuboid May represent signal changes of the Lisfranc ligament injury with no significant bony displacement identified and may correspond with nondisplaced fracture of the lateral aspect of the cuboid ASSESSMENT 1. Lisfranc dislocation, left, initial encounter PLAN Patient to continue with oral anti - inflammatories as needed for pain and recommended OTC medications such as tylenol or Ibuprofen Continue with walking boot Glenn Flores DPM documented in this encounter [facility] 05-30-2024 Note HNO ID: [id number] Author: SUMEET CALI MD Service: ? Author Type: Physician Type: Progress Notes Filed: 05/30/2024 15:41 Note Text: FOLLOW UP - PSYCHIATRIC PROGRESS [...] visit. Either the patient or their legal welding equipment sales representative has been informed of the risks and benefits of -- and alternatives to -- treatment through a remote evaluation and consents to proceed with the evaluation remotely. Reason for Visit: Outpatient follow-up and safety monitoring of previously prescribed psychiatric medication, psychotherapy or other treatment CC: Medication management HPI: Mr. Segovia is a 53 year old male with a PMH of tuberous sclerosis, epilepsy, autism spectrum disorder, history of agoraphobia with panic attacks, impulse control disorder, intellectual disability, osteoporosis, history of postural hypertension. He was last seen in June [address] Megan Romero at that time was continued on current regimen of paroxetine, haloperidol, clonidine, Cogentin. Today, is accompanied by mother and care provider. Mother and provider report he is doing well. Note that he is somnolent in the mornings. Discussed moving the dose of paroxetine to bedtime. Everyone is amenable. Patient recently hurt his foot, which limited his ability to go to work shop. However, doing well and will return tomorrow. Patient states he feels good and that he always wears my seatbelt because I don't want my mom to cry EKG done, was WNL (in scanned documents) Risks and benefits of the medication, including any black box warnings, were discussed with the patient. Interval Progress: Improved PATIENT DATA: Generalized Anxiety Disorder Scale (PETER-7) 05/12/2023 11/10/2023 05/29/2024 PETER - 7 SCORES Score 3 3 0 (0-4) minimal anxiety, (5-9) mild anxiety, (10-14) moderate anxiety, (15-21) severe anxiety Patient Health Questionnaire (PHQ-9) 05/12/2023 11/10/2023 05/29/2024 PHQ-9 Score 4 6 13 (0-4) minimal depression, (5-9) mild depression, (10-14) moderate depression, (15-19) moderately severe depression, (20-27) severe depression PROMIS Global Health 05/12/2023 11/10/2023 05/29/2024 PROMIS Global Health - (T-Scores - the mean of general population = 50. Five points is a clinically meaningful difference.) Physical T-Score 50.8 44.9 37.4 Mental T-Score 43.5 38.8 38.8 Generalized Anxiety Disorder Scale (PETER-7) 05/12/2023 11/10/2023 05/29/2024 PETER - 7 SCORES Score 3 3 0 (0-4) minimal anxiety, (5-9) mild anxiety, (10-14) moderate anxiety, (15-21) severe anxiety [place] Cognitive Assessment (MoCA) No data to display Score of 26 or above considered normal 18-25 =mild cognitive impairment, 10-17 = moderate cognitive impairment, <10 = severe cognitive impairment Patient Health Questionnaire (PHQ-9) 05/12/2023 11/10/2023 05/29/2024 PHQ-9 Score 4 6 13 (0-4) minimal depression, (5-9) mild depression, (10-14) moderate depression, (15-19) moderately severe depression, (20-27) severe depression PROMIS Global Health 05/12/2023 11/10/2023 05/29/2024 PROMIS Global Health - (T-Scores - the mean of general population = 50. Five points is a clinically meaningful difference.) Physical T-Score 50.8 44.9 37.4 Mental T-Score 43.5 38.8 38.8 PAST MEDICAL HISTORY Diagnosis Date Fracture [...] evening, and 3 tablets at bedtime 0 mvschjl-jozhsfxkn-hjgjgqx D3 (OYSTER SHELL CALCIUM-VITAMIN D) 500 mg(1,250mg) [...] tid 0 0 BENZTROPINE 1 MG TAB ta (more content not included)... [facility] 05-27-2024 History of Present illness Narrative Patient: Delano Segovia : 1970 PCP: Go Espinoza MD SUBJECTIVE Patient presents today post today's history of some pain with ambulation and swelling to the dorsum of left foot but has poor historian and caregiver and patient is complaining of pain from time to time but has poor historian and is resident at [place]. He had recent CT scan at [facility] and presents today for follow-up. Allergies: Allergies Allergen Reactions Pertussis Vaccines Unknown [...] plantar flexion inversion eversion of left foot with positive pain on palpation to the left Lisfranc joint Negative pain on palpation left cuboid MRIscan results bone marrow edema present to base of 2nd metatarsal and 1st metatarsal no significant bony displacement noted additional bone marrow edema to lateral aspect of the cuboid May represent signal changes of the Lisfranc ligament injury with no significant bony displacement identified and may correspond with nondisplaced fracture of the lateral aspect of the cuboid ASSESSMENT 1. Lisfranc dislocation, left, initial encounter PLAN Patient to continue with oral anti - inflammatories as needed for pain and recommended OTC medications such as tylenol or Ibuprofen Reviewed MRI report today Pt dispensed pneumatic CAM walker ([id number]) today to maintain 90 degree foot to ankle position. Pt informed to only remove walker when at rest or bathing. ABN signed and in chart for device if warranted. The boot was assembled and adjusted liner and straps and pneumatically inflated for proper custom fitting by Glenn Flores DPM and staff. A verbal order was given for dispensing of device. The patient is ambulatory and may benefit functionally from this device. It may be used for the following conditions as noted per medical diagnosis. Discussed with care worker timeframe of 8-12 week healing timeframe and negative gross fracture or displacement and will treat as Lisfranc sprain Glenn Flores DPM documented in this encounter [facility] 05-18-2024 History of Present illness Narrative Patient: Delano Segovia : 1970 PCP: Go Espinoza MD SUBJECTIVE [...] Glenn Flores DPM documented in this encounter [facility] 04-15-2024 History of Present illness Narrative Patient: Delano Segovia : 1970 PCP: Go Espinoza MD SUBJECTIVE [...] Glenn Flores DPM documented in this encounter [facility] 11-10-2023 Note HNO ID: [id number] Author: SUMEET CALI MD Service: ? Author [...] visit. Either the patient or their legal welding equipment sales representative has been informed of the risks and benefits of -- and alternatives to -- treatment through a remote evaluation and consents to proceed with the evaluation remotely. Reason for Visit: Outpatient follow-up and safety monitoring of previously prescribed psychiatric medication, psychotherapy or other treatment CC: Medication management HPI: Mr. Segovia is a 53 year old male with a PMH of tuberous sclerosis, epilepsy, autism spectrum disorder, history of agoraphobia with panic attacks, impulse control disorder, intellectual disability, osteoporosis, history of postural hypertension. He was last seen in June [address] Megan Romero at that time was continued on current [...] request it faxed to them. Fax number: [phone] (direct fax). Risks and benefits of the [...] anxiety, (10-14) moderate anxiety, (15-21) severe anxiety [place] Cognitive Assessment (MoCA) No data to display [...] evening, and 3 tablets at bedtime 0 cwhwqaa-csokumcgg-qshvoet D3 (OYSTER SHELL CALCIUM-VITAMIN D) 500 mg(1,250mg) [...] daily. cloNIDine 0.1 (more content not included)... [facility] 08-19-2023 Evaluation + Plan note Diagnostic Tests KhbhqyhIkcK2b 08/19/23T3 Free 08/19/23Keppra Lvl 08/19/23Lamotrigine Level 08/19/23 [facility] 02-25-2023 Evaluation + Plan note Diagnostic Tests PendingT3 Free 02/25/23 [facility] 11-12-2022 Evaluation + Plan note Diagnostic Tests PendingPSA Screen, Total 11/12/22 [facility] 01-06-2022 Evaluation note Encounter Date Diagnosis Assessment Notes Dec, Displaced fracture of lateral malleolus of right fibula, subsequent encounter for closed fracture with routine healing (ICD-10 - S82.61XD) Delano is here today for follow-up about 12 weeks s/p right ankle ORIF. He is doing well. He is currently residing at [facility]. There is no complaints overall. [...] Other specified postprocedural states (ICD-10 - Z98.890) [employer] Other 10-12-2022 History of Present illness Narrative* Simi Edwards DDS - 12/04/2021 11:03 AM EDT ----- Saturday, December 04, 2021 at 11:22:04 AM ----- ----- Provider: [id number] Brandy Bautistaeni -- Clinic: [place] ----- [facility], Pt is ready for tx. Pt presented with caries Radiograph taken today: none Discussed the medical necessity of the problem with the pt. Instructions given to pt. Caregiver understood the situation and is okay with medications for today. Pt will come back shouldthings get worse. Guardianship: PARENTS - Nabila (Kerri Segovia [address] [place] [address] / Email: [email or web address] Communicated with caregiver that the pt was placed on the OR list and we will call with appt. Limited exam completed by Dr. Noel STEPHENS. OR ----- Signed on Saturday, December 04, 2021 at 11:51:43 AM ----- ----- Provider: [id number] Tucker Myers DDS -- Clinic: [place] ----- documented in this [id number] Evaluation note* Encounter Date Diagnosis Assessment Notes Treatment Notes Treatment Clinical Notes Oct, Displaced fracture of lateral malleolus of right fibula, subsequent encounter for closed fracture with routine healing (ICD-10 - S82.61XD) Delano is here today for first follow-up 8 weeks s/p right ankle ORIF. He is doing well. He is currently residing at [facility]. There is no complaints overall. [...] fracture with routine healing (ICD-10 - S82.392D) [employer] Other 08-24-2022 Evaluation note* Encounter Date Diagnosis Assessment Notes Treatment Notes Treatment Clinical Notes Sep, Displaced fracture of lateral malleolus of right fibula, subsequent encounter for closed fracture with routine healing (ICD-10 - S82.61XD) Delano is here today for first follow-up 3 weeks s/p right ankle ORIF. He is doing well. He is currently residing at [facility]. There is no complaints overall. [...] as documented in the electronic medical record. [employer] Other 08-24-2022 NoteCast material is in place limiting evaluation. Hardware fixation involving the distal fibula [employer] Other 07-27-2022 NotePROCEDURE: XR TIB_FIB RT 2V [...] Electronically authenticated by: SANDY DÍAZ Date: 2021-09-18 17:14[facility]07-27-2022 NotePROCEDURE: XR ANKLE RT MIN 3 VIEWS [...] Electronically authenticated by: SANDY DÍAZ Date: 2021-09-18 16:44[facility]07-27-2022 NotePROCEDURE: XR ANKLE LT MIN 3 V [...] authenticated by: SANDY DÍAZ Date: 2021-09-18 15:33[id number]* Encounter Date Diagnosis Assessment Notes Treatment Notes Treatment Clinical Notes Jul, Pulmonary cavitary lesion (ICD-10 - J98.4) Jul, Tuberous sclerosis (ICD-10 - Q85.1) [facility] [employer] Other 12-03-2021 NoteSurgical Attestation: I have reviewed the patient's History and Physical Examination. I have personally seen and evaluated the patient, repeating narayanan portions. There is no significant interval change. Surgery is still indicated. Yes Consent reviewed and signed by patient/family: Yes Operative site verified and marked: site verified but not marked as not anatomically possible Carolyn López DDS 01/25/2021 9:50 AMThe [employer] [id number] NotePatient is vaccinated for COVID-19: Pfizer on 03/06/2020 AND 03/27/2020. Patient does not require pre-op COVID testing per current guidelines.[employer] SystemEvaluation noteNo assessment information availablePromedica Toledo Hospital Ctr Work Phone: Evaluation noteNo InformationNortBelmont Behavioral Hospital [employer] Other Evaluation note* Diagnosis Seizure disorder (CMS/HCC)- [...] (peripheral) insufficiency [facility] Diagnosis Lisfranc dislocation, left, initial encounter- Primary documented in this encounter [facility] general Narrative - Reported* Type Description Date Medical History Unspecified intellectual disabil ities Medical History autism Medical History ADHD Medical History Seizure Disorder Medical History tuberous Sclerosis [facility] [employer] Other History general Narrative - Reported* Type Description Date Medical History Unspecified intellectual disabil ities Medical History autism Medical History ADHD Medical History Seizure Disorder Medical History tuberous Sclerosis Surgical History ORIF RT lateral malleolus fx Hospitalization History see above [employer] Other Hospital course Narrative No data available for this section [facility] No data available for this section [facility] No data available for this section [facility] Summary Purpose Family History No Family History [...] section and content) DATE CREATED AUTHOR 08/19/2017 [facility] DATE CREATED AUTHOR AUTHOR'S ORGANIZ ATION 07/30/2018 [facility] DATE CREATED AUTHOR AUTHOR'S ORGANIZ ATION 12/15/2021 [employer] DATE CREATED AUTHOR AUTHOR'S ORGANIZ ATION 04/17/2022 [facility] DATE CREATED AUTHOR AUTHOR'S ORGANIZ ATION 06/01/2022 [facility] DATE CREATED AUTHOR AUTHOR'S ORGANIZ ATION 08/21/2023 Cruz Is[facility]el [facility] DATE CREATED AUTHOR AUTHOR'S ORGANIZ ATION 08/22/2023 Cruz Ismael [facility] DATE CREATED AUTHOR AUTHOR'S ORGANIZ ATION 08/28/2023 Cruz Ismael [facility] DATE CREATED AUTHOR AUTHOR'S ORGANIZ ATION 09/10/2023 Cruz Ismael [facility] DATE CREATED AUTHOR AUTHOR'S ORGANIZ ATION 05/31/2024 [facility] DATE CREATED AUTHOR AUTHOR'S ORGANIZ ATION 07/11/2024 [facility] EPIC REASON FOR VISIT (unrecogniz ed section and content) Reason Comments Seizures Altered Mental Status Reason Comments Ingrown Toenail RT grt nail ingrown Reason Comments Foot Pain Left foot swelling Reason Comments Follow-up Ct scan Reason Comments Follow-up Lt lis franc Reason Comments Follow-up LT LIS FRANC Care Teams (unrecognized sec tion and content) Team Status: Inactive Member Role Status Dates Go Espinoza , Primary Care Provider Active Cj Gayle , Attending Provider Active Team Status: Active Member Role Status Dates Go Espinoza , Primary Care Provider Active Team Status: Inactive Member Role Status Dates Go Espinoza , Primary Care Provider Active Nallely Parada MD Attending Provider Active Heel Former Relationship Specialty Start Date End Date Unallocated, Arnies MD Marissa [address] [place] [address] PCP - General Family Medicine 02/05/23 Heel Former Relationship Specialty Start Date End Date Go Espinoza MD [facility] [address] [place] [address] PCP - General Family Medicine 02/09/24 Sue Patrick DO [address] [place] [address] Referring Physician Neurology 02/09/24 Heel Former Relationship Specialty Start Date End Date Go Espinoza MD [address] [place] [address] PCP - General Family Medicine 02/09/24 Sue Patrick DO [address] [place] [address] Referring Physician Neurology 02/09/24 Heel Former Relationship Specialty Start Date End Date Go Espinoza MD [address] [place] [address] PCP - General Family Medicine 02/09/24 Sue Patrick DO [address] [place] [address] Referring Physician Neurology 02/09/24 Heel Former Relationship Specialty Start Date End Date Go Espinoza MD [address] [place] [address] PCP - General Family Medicine 02/09/24 Sue Patrick DO [address] [place] [address] Referring Physician Neurology 02/09/24 Heel Former Relationship Specialty Start Date End Date Go Espinoza MD [address] [place] [address] PCP - General Family Medicine 02/09/24 Sue Patrick DO [address] [place] [address] Referring Physician Neurology 02/09/24 Heel Former Relationship Specialty Start Date End Date Go Espinoza MD [address] [place] [address] PCP - General Family Medicine 02/09/24 Sue Patrick DO [address] [place] [address] Referring Physician Neurology 02/09/24 Goals (unrecognized section [...] BE BASED ON THE PRIMARY CLINICAL RECORDS. [employer] provides no warranty or guarantee of the accuracy or completeness of information in this document.
== END 2024-07-20 03:00 | disposition home or self-care (01) ==
PROVIDERS: Emergency Provider Internal Medicine; PCP Family Medicine
DX: S02.2XXA Fracture of nasal bones, initial encounter for closed fracture (principal); W06.XXXA Fall from bed, initial encounter; F79 Unspecified intellectual disabilities; S00.81XA Abrasion of other part of head, initial encounter
CPT/HCPCS: 70450; 70486; 72125; 99284

== ENCOUNTER 2024-08-09 06:39 | Outpatient (OUT) | payer MEDICARE, MEDICAID, SELFPAY ==
--- OUTSIDE RECORDS SUMMARY | 2024-08-01 10:00 | XMS_ITS | Encounter Summary ---
Author Organization [facility] Address [address] [place] [address] Care Team Providers Care Master Mechanic Name Role Phone Go Foster MD Primary Care Provider Sue Patrick DO Unavailable [phone] Reason for Visit * Reason Comments Follow-up Lt lis franc Encounter Details Date Type Department Care Team ([facility] Contact Info) Description 08/01/2024 10:00 AM EDT Office Visit [facility] [address] [place] [address] Glenn Flores DPM [address] [address] Lisfranc dislocation, left, initial encounter (Primary Dx) Social History Tobacco Use Types Packs/Day Years Used Date Smoking Tobacco: Never Passive Smoke Exposure: Never Smokeless Tobacco: Never Tobacco Cessation:Counseling Given: Yes Alcohol Use Standard Drinks/Week Comments Never 0 (1 standard drink = 0.6 oz pur e alcohol) Sex and Gender Information Value Date Recorded Sex Assigned at Not on file Legal Sex Male 6:35 PM EDT Gender Identity Not on file Sexual Orientation Not on file documented as of this encounter Last Filed Vital Signs Vital Sign Reading Time Taken Comments Blood Pressure - - Pulse - - Temperature - - Respiratory Rate 18 08/01/2024 9:54 AM EDT Oxygen Saturation - - Inhaled Oxygen Concentration - - Weight 83.9 kg (185 lb) 08/01/2024 9:54 AM EDT Height 172.7 cm (5' 8 ) 08/01/2024 9:54 AM EDT Body Mass Index 28.13 08/01/2024 9:54 AM EDT documented in this encounter Progress Notes * Glenn Flores DPM - 08/01/2024 10:00 AM EDT Patient: Delano Segovia : 1970 PCP: Go Foster MD SUBJECTIVE Patient presents today for follow [...] and 1 mg in the evening and 1mg before bedtime., Disp: , Rfl: Calcium Carb-Cholecalciferol (Oyster Shell Calcium w/D) 500-5 MG-MCG tablet, Take 1 tablet by mouthin the morning and 1 tablet before bedtime. [...] MOUTH IN THE MORNING AND TWO TABLETS ATBEDTIME TRILEPTAL, Disp: , Rfl: PARoxetine (Paxil) 40 MG tablet, Take 60 mg by mouth Daily, Disp: , Rfl: potassium chloride ER (Micro-K) 10 MEQ ER capsule, TAKE ONE CAPSULE BY MOUTH 3 TIMES DAILY, Disp: ,Rfl: Prolia 60 MG/ML solution prefilled syringe, , [...] the right medial hallux. diminished Edema to dorsumof left foot with negative ecchymosis VASC: Palpable pedal pulses bilaterally NEURO: Gross sensation intact to bilateral feet ORTHO: negative palpation left forefoot with +5/5 dorsiflexion plantar flexion inversion eversion of left foot with minimal to no pain on palpation to the left Lisfranc [...] of the lateral aspect of the cuboid Xray: ASSESSMENT 1. Lisfranc dislocation, left, initial encounter PLAN Patient to continue with oral anti - inflammatories as needed for pain and recommended OTC medications such as tylenol or Ibuprofen Patient to continue with normalGear and discontinue walking boot with follow up p.r.n. Glenn Flores DPM documented in this encounter Plan of Treatment Not on file documented as of this encounter Visit Diagnoses Diagnosis Lisfranc dislocation, left, initial encounter- Primary documented in this encounter Care Teams Master Mechanic Relationship Specialty Start Date End Date Go Foster MD [address] [facility] [address] [place] [address] PCP - General Family Medicine 02/09/24 Sue Patrick DO [address] [place] [address] Referring Physician Neurology 02/09/24 documented as of this encounter
--- OUTSIDE RECORDS SUMMARY | 2024-08-09 06:41 | XMS_ITS | Encounter Summary ---
Author Organization [facility] Address [address] [place] [address] Care Team Providers Care Certified Endoscopy Technician Name Role Phone Go Foster MD Primary Care Provider [phone] Sue Patrick DO Unavailable [phone] Encounter Details Date Type Department Care Team ([facility] st Contact Info) Description 08/01/2024 Bamboo flowsheet [facility] [address] [place] [address] Glenn Flores DPM [address] [address] Social History Tobacco Use Types Packs/Day Years Used Date Smoking Tobacco: Never Passive Smoke Exposure: Never Smokeless Tobacco: Never Alcohol Use Standard Drinks/Week Comments Never 0 (1 standard drink = 0.6 oz pur e alcohol) Sex and Gender Information Value Date Recorded Sex Assigned at Not on file Legal Sex Male 6:35 PM EDT Gender Identity Not on file Sexual Orientation Not on file documented as of this encounter Plan of Treatment Not on file documented as of this encounter Visit Diagnoses Not on filedocumented in this encounter Care Teams Certified Endoscopy Technician Relationship Specialty Start Date End Date Go Foster MD [address] [facility] [address] [place] [address] PCP - General Family Medicine 02/09/24 Sue Patrick DO [address] [place] [address] Referring Physician Neurology 02/09/24 documented as of this encounter
--- OUTSIDE RECORDS SUMMARY | 2024-08-09 06:41 | XMS_ITS | Patient Health Record ---
Author Organization [facility] es Address [address] [place] [address] Care Team Providers Care Moving Worker Name Role Phone Dr. Panda Rivera Primary Care Provider [phone] Yolanda Harley Unavailable [phone] Reason For Referral No Information Encounters Encounter Location Date Provider Diagnosis [facility] [address] [place] [address] 06/01/2024 Yolanda Harley Encounter for dental examination and cleaning with abnormal findings Z01.21 ; Other dental procedure status Z98.818 ; Disturbances in tooth eruption K00.6 ; Acute gingivitis, plaque induced K05.00 ; Dental caries on pit and fissure surface penetrating into dentin K02.52 ; Necrosis of pulp K04.1 and Cracked tooth K03.81 Assessments Encounter Date Diagnosis (ICD Code) Assessment Notes Treatment Notes Treatment Clinical Notes Section Notes 06/01/2024 Encounter for dental examination and cleaning with abnormal findings (ICD-10 - Z01.21) 06/01/2024 Other dental procedure status (ICD-10 - Z98.818) 06/01/2024 Disturbances in tooth eruption (ICD-10 - K00.6) 06/01/2024 Acute gingivitis, plaque induced (ICD-10 - K05.00) 06/01/2024 Dental caries on pit and fissure surface penetrating into dentin (ICD-10 - K02.52) 06/01/2024 Necrosis of pulp (ICD-10 - K04.1) 06/01/2024 Cracked tooth (ICD-10 - K03.81) Plan Of Treatment Next Appt Details Provider Name:Yolanda Harley, 09/20/2024 11:20:00 AM, [address], [place], [address], Provider Name:Yolanda Harley, 09/28/2024 09:00:00 AM, [address], [place], [address], Provider Name:Yolanda Harley, 10/04/2024 10:35:00 AM, [address], [place], [address], Provider Name:Brianna Chapa , 11/29/2024 10:40:00 AM, [address], [place], [address], Insurance Providers Payer Name Payer Address Payer Phone Subscriber Number Group Number Insured Name Patient Relationship to Insured Coverage Start Date Coverage End Date [place] [address] [place] [phone] [id number] ALETHEA LEI Self - patient is the insured
--- OUTSIDE RECORDS SUMMARY | 2024-08-09 06:41 | XMS_ITS | Encounter Summary ---
Author Organization [facility] Address [address] [place] [address] Care Team Providers Care Apple Press Operator Name Role Phone Go Foster Primary Care Provider [phone] Source Comments In the event this information is protected by the Federal Confidentiality of Alcohol and Drug AbusePatient Records regulations: The Federal rules restrict any use of the information to criminally investigate or prosecute any alcohol or drug abuse patient.[facility] Encounter Details Date Type Department Care Team (Late st Contact Info) Description 07/23/2021 Get Medical Advice Psychiatry [address] [place], [place] [id number] Ambrocio Romero MD [address] [facility] [address] [place], [place] [id number] Need for medical record of televisit on 07/15/21 and 01/31/21. Social History Tobacco Use Types Packs/Day Years Used Date Smoking Tobacco: Never Alcohol Use Standard Drinks/Week Comments No 0 (1 standard drink = 0.6 oz pur e alcohol) Area Deprivation Index Answer Date Dennis rded National Score (1-100), lower number is lower ri sk Not on file 01/29/2020 State Score (1-10), lower number is lower risk N ot on file 01/29/2020 Data from: https://www.neighborhoodatlas.medicine.[facility].edu/. Last address used for calculation Not on file 01/29/2020 Sex and Gender Information Value Date Recorded Sex Assigned at Not on file Legal Sex Male 8:41 AM EST Gender Identity Male 01/31/2021 10:38 AM EST Sexual Orientation Not on file documented as of this encounter Plan of Treatment Not on file documented as of this encounter Visit Diagnoses Not on filedocumented in this encounter Care Teams Apple Press Operator Relationship Specialty Start Date End Date Go Foster DO PCP - General 10/24/12 documented as of this encounter
--- OUTSIDE RECORDS SUMMARY | 2024-08-09 06:41 | XMS_ITS | Clinical Summary ---
Author Organization [facility] tem Address [id number] [address] [place] [address] Care Team Providers Care Sealer Aircraft Name Role Phone FosterGo Radhames OLIVO Primary Care Provider Social History Tobacco Use Types Packs/Day Years Used Date Smoking Tobacco: Never Assessed Childcare Answer Date Recorded Childcare Unknown 08/04/2018 Employment Answer Date Recorded Employment Unknown 08/04/2018 Purpose - Life Answer Date Recorded Purpose and direction in life Unknown Sex and Gender Information Value Date Recorded Sex Assigned at Not on file Legal Sex Male 12:50 PM EDT Gender Identity Not on file Sexual Orientation Not on file Plan of Treatment Not on file Medical Devices Not on file Insurance [place]ICAID [place] Member Subscriber Plan / Payer (Ef fective 2016-Present) Name:Delano Segovia Relation to Subscriber:Self Name:Delano Segovia Payer ID:Not on file Group ID:Not on file Type:Not on file Address: [address] [id number] MEDICARE Care Teams Sealer Aircraft Relationship Specialty Start Date End Date Go Foster DO [address] [place] [address] PCP - General 07/17/16
--- OUTSIDE RECORDS SUMMARY | 2024-08-09 06:41 | XMS_ITS | Encounter Summary ---
Author Organization [facility] Address [address] [place] [address] Care Team Providers Care Civil Litigation Attorney Name Role Phone Go Foster Primary Care Provider [phone] Source Comments In the event this information is protected by the Federal Confidentiality of Alcohol and Drug AbusePatient Records regulations: The Federal rules restrict any use of the information to criminally investigate or prosecute any alcohol or drug abuse patient.[facility] Encounter Details Date Type Department Care Team (Late st Contact Info) Description 01/31/2021 Get Medical Advice Psychiatry [address] [place] [address] Ambrocio Romero MD [address] [facility] [address] [place] [address] Visit progress note and next appointment Social History Tobacco Use Types Packs/Day Years Used Date Smoking Tobacco: Never Alcohol Use Standard Drinks/Week Comments No 0 (1 standard drink = 0.6 oz pur e alcohol) Area Deprivation Index Answer Date Dennis rded National Score (1-100), lower number is lower ri sk Not on file 01/29/2020 State Score (1-10), lower number is lower risk N ot on file 01/29/2020 Data from: https://www.neighborhoodatlas.medicine.[facility].edu/. Last address used for calculation Not [...] on filedocumented in this encounter Care Teams Civil Litigation Attorney Relationship Specialty Start Date End Date Go Foster DO PCP - General 10/24/12 documented as of this encounter
--- OUTSIDE RECORDS SUMMARY | 2024-08-09 06:41 | XMS_ITS | Clinical Summary ---
Author Organization [facility] Address [address] [place] [address] Care Team Providers Care No Bake Molder Name Role Phone Foster Go Radhames OLIVO Primary Care Provider Allergies Active Allergy Reactions Criticality Noted Date Comments Aripiprazole Mental Status Change Medium 02/01/2008 agressiveness Pertussis Vaccines 12/13/2007 Medications * This document contains information received from the source organization and may not represent a complete record from that organization. BENZTROPINE 1 MG TAB take 1 tablet TID 0 8 Active DOCUSATE SODIUM 100 MG CAP take one tab PO tid 0 0 8 Active MULTIVITAMIN CAP daily Act nathalia POTASSIUM CHLORIDE SR 10 MEQ TAB one cap three times daily Active PARoxetine 40 mg tabletIndication s:Tuberous sclerosis (HCC),Epilepsy (HCC) Take 1.5 tablets by mouth once daily. 2 Active cloNIDine 0.1 mg tabletIndication s:Other and unspecified special symptom or syndrome, not elsewhere classified Take 1 tablet by mouth three times daily. 2 Active OXcarbazepine 600 mg tablet Take 1 tablet by mouth three times daily. 39 tablet 0 3 Active levothyroxine (SYNTHROID) 150 mcg tablet Take 1 tablet by mouth once daily. 0 5 Active fluocinonide (LIDEX) 0.05 % cream Apply 1 application to affected area once each week. 5 Active haloperidol (HALDOL) 5 mg tablet Take 3 tablets daily by mouth in the morning, 2 tablets in the evening, and 3 tablets at bedtime 0 7 Active calcium-carbonat e-vitamin D3 (OYSTER SHELL CALCIUM-VITAMIN D) 500 mg(1,250mg) -200 unit per tablet Take 1 tablet by mouth twice daily with meals. 0 7 Active alendronate (FOSAMAX) 70 mg tablet Take 1 tablet by mouth one time a week. on Wednesdays at 15:00 0 0 Active loratadine (CLARITIN) 10 mg tablet Take 1 tablet by mouth once daily. for 3 days as needed for nasal congestion. 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 Date Type Department Care Team Description 05/29/2024 Travel 05/19/2024 Patient Msg Neurology [address] [place] [address] Kathy Groves, Research Coordinator Information sheet: updates for [facility] Natural History Database from Last 3 Months Social History Tobacco Use Types Packs/Day Years Used Date Smoking Tobacco: Never Tobacco Cessation:Counseling Given: Yes Alcohol Use Standard Drinks/Week Comments No 0 (1 standard drink = 0.6 oz pur e alcohol) PHQ-2 Answer Date Recorded PHQ-2 score 3 05/29/2024 Area Deprivation Index Answer Date Dennis rded National Score (1-100), lower number is lower ri sk Not on file 01/29/2020 State Score (1-10), lower number is lower risk N ot on file 01/29/2020 Data from: https://www.neighborhoodatlas.medicine.[facility].edu/. Last address used for calculation Not on file 01/29/2020 Sex and Gender Information Value Date Recorded Sex Assigned at Not on file Legal Sex Male 8:41 AM EST Gender Identity Male 01/31/2021 10:38 AM EST Sexual Orientation Not on file Last Filed Vital Signs Vital Sign Reading Time Taken Comments Blood Pressure 150/78 08/09/2020 10:33 AM EDT Pulse 76 08/09/2020 10:33 AM EDT Temperature 36.3 C (97.4 F) 10/29/2012 1:47 PM EDT Respiratory Rate 16 08/09/2020 10:33 AM EDT Oxygen Saturation 95% 08/09/2020 10:33 AM EDT Inhaled Oxygen Concentration - - Weight 88.2 kg (194 lb 8 oz) 08/09/2020 10:33 AM EDT Height 174 cm (5' 8.5 ) 08/09/2020 10:33 AM EDT Body Mass Index 29.14 08/09/2020 10:33 AM EDT Plan of Treatment Health Maintenance Due Date Last Done Comments Anxiety Screening 01/10/1986 Depression Screening 01/10/1986 HIV Screening 01/10/1986 Hepatitis C Screening 01/10/1986 Medicare Annual Wellness Visit 02/24/1996 Lipid Screening 01/10/2003 CT Colonography 01/10/2013 Colonoscopy 01/10/2013 Fecal Occult Blood 01/10/2013 Prostate Cancer Screening Discussion 01/10/2013 Sigmoidoscopy 01/10/2013 DTaP,Tdap,Td Vaccine (1 - Tdap) 07/13/2015 6, 06/25/2005 Diabetes Screening 10/30/2015 10/29/2012, 0 10/28/2012, 10/27/2012, Additional history exists Pneumococcal Vaccine: 50+ (1 of 1 - PCV) 01/10/2018 Shingrix Vaccine (1 of 2) 01/10/2018 Covid-19 Vaccine (2023-2 5 season) 2023 12/10/2022, 12/11/2021, 06/26/2021, Additional history exists Influenza Vaccine (Season Ended) 2024 12/10/2022, 12/11/2021, 12/19/2020, Additional history exists Cologuard (FIT-DNA) 02/12/2026 02/12/2023 Colorectal Cancer Screening 02/12/2026 Hepatitis B Vaccine Completed 01/04/1985, 07/08/1984, 06/08/1984 Procedures Procedure Name Priority Date/Time Associated Diagnosis Comments BASIC METABOLIC PANEL Routine 10/29/2012 4:44 AM EDT from Last 3 Months or Most Recently Relevant to Health Maintenance Results * (ABNORMAL) BASIC METABOLIC PNL (10/29/2012 4:44 AM EDT) Glucose 81 65 - 100 mg/dL [facility] BUN 18 10 - 25 mg/dL [facility] Creatinine 1.04 0.70 - 1.40 mg/dL [facility] Sodium 144 135 - 146 mmol/L [facility] Potassium 4.1 3.5 - 5.0 mmol/L [facility] Chloride 112(H) 98 - 110 mmol/L [facility] CO2 21(L) 23 - 32 mmol/L [facility] Anion Gap 11 0 - 15 mmol/L [facility] Calcium 8.4(L) 8.5 - 10.5 mg/dL [facility] Blood specimen (specimen) BLOOD SPECIMEN / Unknown 10/29/2012 4:44 AM EDT 10/29/2012 4:45 AM EDT us Marcelo Xie MD LABORATORY Final Result [facility] [address] [place] [address] from Last 3 Months or Most Recently Relevant to Health Maintenance Insurance [address] [place] [address] MEDICARE Member Subscriber Plan / Payer (Ef fective 1996-Present) Name:Delano Segovia Member ID:[id number] Relation to Subscriber:Self Name:Delano Segovia Subscriber ID:[id number] Payer ID:Not on file Group ID:Not on file Type:Medicare Address: [facility] [place] [id number] MEDICAID [place] Care Teams No Bake Molder Relationship Specialty Start Date End Date Go Foster DO PCP - General 10/24/12
--- OUTSIDE RECORDS SUMMARY | 2024-08-09 06:41 | XMS_ITS | Encounter Summary ---
Author Organization [facility] Address [address] [place] [address] Care Team Providers Care Food Service Lead Name Role Phone Go Foster DO Primary Care Provider Encounter Details Date Type Department Care Team (Late st Contact Info) Description 07/25/2016 Documentation Only Neurology [facility] [place] [address] [place] [address] Robbi Howell MD, MD [address] [facility] [address] [place] [address] Social History Tobacco Use Types Packs/Day Years Used Date Smoking Tobacco: Never Assessed Sex and Gender Information Value Date Recorded Sex Assigned at Not on file Legal Sex Male 12:51 PM EDT Gender Identity Not on file Sexual Orientation Not on file documented as of this encounter Plan of Treatment Not on file documented as of this encounter Visit Diagnoses Not on filedocumented in this encounter Care Teams Food Service Lead Relationship Specialty Start Date End Date Go Foster DO [address] [place] [address] PCP - General Family Medicine 06/11/16 documented as of this encounter
--- OUTSIDE RECORDS SUMMARY | 2024-08-09 06:41 | XMS_ITS | Clinical Summary ---
Author Organization [facility] Address [address] [place] [address] Care Team Providers Care Pail Tester Name Role Phone Go Foster DO Primary Care Provider Allergies Active Allergy Reactions Criticality Noted Date Comments Pertussis Vaccine,Fluid Erythema 09/09/2016 Medications alendronate (FOSAMAX) 70 mg oral tablet Take 70 mg by mouth once a week. On Thursday Active benztropine (COGENTIN) 1 mg oral tablet Take 1 mg by mouth 3 times daily. Active clonIDINE (CATAPRES) 0.1 mg oral tablet Take 0.1 mg by mouth 3 times daily. Active docusate sodium (COLACE) 100 mg oral capsule Take 100 mg by mouth 3 times daily. Active fluocinonide (FLUOCINONIDE) 0.05 % topical solution Apply 1 Application to affected area. Taking once weekly Active haloperidol (HALDOL) 5 mg oral tablet Take 5 mg by mouth. 3 tablets in Morning & 2 tablets in evening & 3 tablets at bedtime Active levothyroxine 100 mcg oral tablet Take 100 mcg by mouth once daily. At bedtime; taken with one 50mcg tablet for a total of 150mcg Active levothyroxine 50 mcg oral tablet Take 50 mcg by mouth once daily. Taken at bedtime with one 100mcg tablet for a total of 150 mcg Active MULTIVITAMIN ORAL Take by mouth. Activ e OXcarbazepine (TRILEPTAL) 600 mg oral tablet Take 600 mg by mouth 3 times daily. Active CALCIUM CARBONATE/VITAM IN D2 (OYSTER SHELL CALCIUM WITH D ORAL) Take 1 tablet by mouth twice daily. Active PARoxetine (PAXIL) 40 mg oral tablet Take 40 mg by mouth once daily. Take 1.5 tablets q day Active Potassium Chloride 10 mEq oral TbTQ Take by mouth. Activ e acetaminophen (TYLENOL) 325 mg oral tablet Take by mouth every 4 hours as needed. Active ibuprofen (MOTRIN) 600 mg oral tablet Take by mouth every 6 hours as needed. Active loratadine 10 mg oral Cap Take by mouth. Act nathalia Social History Tobacco Use Types Packs/Day Years Used Date Smoking Tobacco: Never Smokeless Tobacco: Never Sex and Gender Information Value Date Recorded Sex Assigned at Not on file Legal Sex Male 12:51 PM EDT Gender Identity Not on file Sexual Orientation Not on file Last Filed Vital Signs Vital Sign Reading Time Taken Comments Blood Pressure 135/84 09/09/2016 11:53 AM EDT Pulse 77 09/09/2016 11:53 AM EDT Temperature - - Respiratory Rate - - Oxygen Saturation - - Inhaled Oxygen Concentration - - Weight 85.2 kg (187 lb 13.3 oz) 017 11:53 AM EDT Height 173.7 cm (5' 8.39 ) 09/09/2016 1 1:53 AM EDT Body Mass Index 28.24 09/09/2016 11:53 AM EDT Plan of Treatment Health Maintenance Due Date Last Done Comments MMR Vaccine (1 of 1 - Standa rd series) 01/10/1969 DTaP/Tdap/Td Vaccine (1 - Tdap) 01/10/1975 Varicella Vaccine (1 of 2 - 13+ 2-dose series) 01/10/1981 Hepatitis B Vaccine (1 of 3 - 19+ 3-dose series) 01/10/1987 Pneumococcal Vaccine: 50+ Ye ars (1 of 1 - PCV) 01/10/2018 Shingles Vaccine (1 of 2) 01/10/2018 COVID-19 Vaccine (1 - 2023-2 5 season) 2023 Influenza Vaccine (Season Ended) 2024 HIB Vaccine Aged Out No longer eligi ble based on patient's age to complete this topic HPV Vaccine Aged Out No longer eligi ble based on patient's age to complete this topic Hepatitis A Vaccine Aged Out No longe r eligible based on patient's age to complete this topic IPV Vaccine Aged Out No longer eligi ble based on patient's age to complete this topic Meningococcal ACWY Vaccine Aged Out N o longer eligible based on patient's age to complete this topic Meningococcal B Vaccine Aged Out No l onger eligible based on patient's age to complete this topic RSV, Nirsevimab Immunization Aged Out No longer eligible based on patient's age to complete this topic Rotavirus Vaccine Aged Out No longer eligible based on patient's age to complete this topic Insurance [place] Care Teams Pail Tester Relationship Specialty Start Date End Date Go Foster DO [address] [place] [address] PCP - General Family Medicine 06/11/16
--- OUTSIDE RECORDS SUMMARY | 2024-08-09 06:41 | XMS_ITS | Clinical Summary ---
Author Organization [facility] Address [address] [place] [address] Care Team Providers Care Lathe Operator Name Role Phone Go Foster MD Primary Care Provider Sue Patrick DO Unavailable [phone] Allergies Active Allergy Reactions Criticality Noted Date Comments Pertussis Vaccines Unknown 02/05/2023 Medications atorvastatin (Lipitor) 40 MG tablet Take 40 mg by mouth in the morning. 3 Active Calcium Carb-Cholecalcifer ol (Oyster Shell Calcium w/D) 500-5 MG-MCG tablet Take 1 tablet by mouth in the morning and 1 tablet before bedtime. 3 Active cloNIDine (Catapres) 0.1 MG tablet TAKE ONE TABLET BY MOUTH 3 TIMES DAILY CATAPRES Active docusate sodium (Colace) 100 MG capsule TAKE ONE CAPSULE BY MOUTH 3 TIMES DAILY Active haloperidol (Haldol) 5 MG tablet TAKE 3 TABLETS BY MOUTH IN THE MORNING 2 TABLETS IN THE EVENING AND 3 TABLETS AT BEDTIME Active levETIRAcetam (Keppra) 500 MG tablet Take 1 tablet by mouth in the morning and 1 tablet before bedtime. 3 Active levothyroxine (Synthroid, Levoxyl) 175 MCG tablet Take 175 mcg by mouth in the morning. Take before meals. 3 Active losartan (Cozaar) 100 MG tablet Take 100 mg by mouth at bedtime 3 Active meloxicam (Mobic) 15 MG tablet TAKE ONE TABLET BY MOUTH DAILY AT BEDTIME MOBIC 3 Active Mouthwashes (Biotene Dry Mouth) liquid TWICE A DAY SWISH 15ML FOR 30 SEC THEN SPIT 3 Active Multiple Vitamin (Multivitamin) tablet Take 1 tablet by mouth in the morning. 3 Active OXcarbazepine (Trileptal) 600 MG tablet TAKE ONE TABLET BY MOUTH IN THE MORNING AND TWO TABLETS AT BEDTIME TRILEPTAL Active PARoxetine (Paxil) 40 MG tablet Take 60 mg by mouth Daily Active potassium chloride ER (Micro-K) 10 MEQ ER capsule TAKE ONE CAPSULE BY MOUTH 3 TIMES DAILY 3 Active benztropine (Cogentin) 1 MG tablet Take 1 mg by mouth in the morning and 1 mg in the evening and 1 mg before bedtime. Active fluocinonide (Lidex) 0.05 % external solution 4 Active Prolia 60 MG/ML solution prefilled syringe 4 Active triamcinolone (Kenalog) 0.1 % cream Apply topically 2 (two) times a day Active acetaminophen (Tylenol) 325 MG tablet Take by mouth Active loratadine (Claritin Reditabs) 10 MG disintegrating tablet Take 10 mg by mouth Daily Active traMADol (Ultram) 50 MG tablet Take 50 mg by mouth every 4 (four) hours if needed for severe pain Active amLODIPine (Norvasc) 5 MG tablet Take 5 mg by mouth Daily 4 Active Active Problems Problem Noted Date Diagnosed Date Alkaline phosphatase elevation 08/11/2023 Tuberous sclerosis Myofascial pain syndrome Overview (08/06/2023): Abdominal Wall or Pelvic Floor Seizure disorder Behavior disturbance Disturbance of conduct Mental disability Overview (08/06/2023): Mental Retardation Back spasm Encounters Date Type Department Care Team Description 08/01/2024 10:00 AM EDT Office Visit [facility] [address] [place] [address] Glenn Flores DPM Lisfranc dislocation, left, initial encounter (Primary Dx) 08/01/2024 Bamboo flowsheet [facility] [address] [place] [address] Glenn Flores DPM 07/11/2024 9:50 AM EDT Office Visit [facility] [address] [place] [address] Glenn Flores DPM Lisfranc dislocation, left, initial encounter (Primary Dx) 07/11/2024 Bamboo flowsheet [facility] [address] [place] [address] Glenn Flores DPM 06/17/2024 9:50 AM EDT Office Visit [facility] [address] [place] [address] [phone] Glenn Flores DPM Lisfranc dislocation, left, initial encounter (Primary Dx) 06/17/2024 Bamboo flowsheet [facility] [address] [place] [address] Glenn Flores DPM 05/27/2024 9:40 AM EDT Office Visit [facility] [address] [place] [address] Glenn Flores DPM Lisfranc dislocation, left, initial encounter (Primary Dx) 05/27/2024 Telephone [facility] [address] [facility] [address] [place] [phone] Glenn Flores DPM 05/27/2024 Bamboo flowsheet [facility] [address] [place] [address] Glenn Flores DPM 05/19/2024 Abstract [facility] [address] [place] [address] Glenn Flores DPM 05/18/2024 4:00 PM EDT Office Visit [facility] [address] [place] [address] [phone] Glenn Flores DPM Contusion of left foot, initial encounter (Primary Dx); Onychocryptosis; Toe pain, right; Abscess of toe, right; Venous insufficiency 05/18/2024 Bamboo flowsheet [facility] [address] [place] [address] Glenn Flores DPM 05/16/2024 9:00 AM EDT Office Visit [facility] [address] [place] [address] Glenn Flores DPM Onychocryptosis (Primary Dx); Toe pain, right 05/16/2024 Bamboo flowsheet [facility] [address] [place] [address] Glenn Flores DPM from Last 3 Months Family History Relation Name Status Comments Father Alive Mother Alive Social History Tobacco Use Types Packs/Day Years [...] Sign Reading Time Taken Comments Blood Pressure 139/90 05/18/2024 4:06 PM EDT Pulse 69 05/18/2024 4:06 PM EDT Temperature - - Respiratory Rate 18 08/01/2024 9:54 AM EDT Oxygen Saturation 98% 08/06/2023 9:00 AM EDT Inhaled Oxygen Concentration - - Weight 83.9 kg (185 lb) 08/01/2024 9:54 AM EDT Height 172.7 cm (5' 8 ) 08/01/2024 9:54 AM EDT Body Mass Index 28.13 08/01/2024 9:54 AM EDT Plan of Treatment Health Maintenance Due Date Last Done Comments CT Colonography 1968 Colonoscopy 1968 FIT 1968 FOBT 1968 Sigmoidoscopy 1968 Colorectal Cancer Screening 02/12/2026 FIT-DNA 02/12/2026 02/12/2023 Influenza Vaccine Completed 12/10/2023, , 12/11/2021, Additional history exists Insurance [place]ICAID [place] MEDICARE Care Teams Lathe Operator Relationship Specialty Start Date End Date Go Foster MD [address] [place] [address] [address] [place] [address] PCP - General Family Medicine 02/09/24 Sue Patrick DO [address] [place] [address] Referring Physician Neurology 02/09/24
--- OUTSIDE RECORDS SUMMARY | 2024-08-09 06:41 | XMS_ITS | Encounter Summary ---
Author Organization [facility] Address [address] [place] [address] Care Team Providers Care Assistant Vice President Name Role Phone Go Foster DO Primary Care Provider [phone] Source Comments In the event this information is protected by the Federal Confidentiality of Alcohol and Drug AbusePatient Records regulations: The Federal rules restrict any use of the information to criminally investigate or prosecute any alcohol or drug abuse patient.[facility] Encounter Details Date Type Department Care Team (Late st Contact Info) Description 11/23/2012 Patient Msg Medical Records [address] [place] [address] Provider, [facility] Results Social History Tobacco Use Types Packs/Day Years [...] on filedocumented in this encounter Care Teams Assistant Vice President Relationship Specialty Start Date End Date Go Foster DO PCP - General 10/24/12 documented as of this encounter
--- OUTSIDE RECORDS SUMMARY | 2024-08-09 06:41 | XMS_ITS | Encounter Summary ---
Author Organization [facility] Address [address] [place] [address] Care Team Providers Care Shoe Repair Supervisor Name Role Phone Go Foster Primary Care Provider [phone] Source Comments In the event this information is protected by the Federal Confidentiality of Alcohol and Drug AbusePatient Records regulations: The Federal rules restrict any use of the information to criminally investigate or prosecute any alcohol or drug abuse patient.[facility] Encounter Details Date Type Department Care Team (Late st Contact Info) Description 01/08/2022 Get Medical Advice Psychiatry [address] [place] [address] Ambrocio Romero MD [address] [facility] [address] [place] [address] Televisit today for Delano Segovia Social History Tobacco Use Types Packs/Day Years Used Date Smoking Tobacco: Never Alcohol Use Standard Drinks/Week Comments No 0 (1 standard drink = 0.6 oz pur e alcohol) Area Deprivation Index Answer Date Dennis rded National Score (1-100), lower number is lower ri sk Not on file 01/29/2020 State Score (1-10), lower number is lower risk N ot on file 01/29/2020 Data from: https://www.neighborhoodatlas.medicine.[facility].edu/. Last address used for calculation Not on file 01/29/2020 Sex and Gender Information Value Date Recorded Sex Assigned at Not on file Legal Sex Male 8:41 AM EST Gender Identity Male 01/31/2021 10:38 AM EST Sexual Orientation Not on file documented as of this encounter Miscellaneous Notes * Telephone Encounter - Debra Cifuentes - 01/09/2022 11:14 AM EST Moi Carbone, This has been taken care of. I sent it first thing this morning. Debra documented in this encounter Plan of Treatment Not on file documented as of this encounter Visit Diagnoses Not on filedocumented in this encounter Care Teams Shoe Repair Supervisor Relationship Specialty Start Date End Date Go Foster DO PCP - General 10/24/12 documented as of this encounter
--- OUTSIDE RECORDS SUMMARY | 2024-08-09 06:41 | XMS_ITS | Encounter Summary ---
Author Organization [facility] Address [address] [place] [address] Care Team Providers Care Balancer Scale Name Role Phone Go Foster Primary Care Provider [phone] Source Comments In the event this information is protected by the Federal Confidentiality of Alcohol and Drug AbusePatient Records regulations: The Federal rules restrict any use of the information to criminally investigate or prosecute any alcohol or drug abuse patient.[facility] Encounter Details Date Type Department Care Team (Late st Contact Info) Description 07/15/2021 Get Medical Advice Psychiatry [address] [place] [address] Ambrocio Romero MD [address] [facility] [address] [place] [address] Progress Note from 07/15/21 Zoom appt. Social History Tobacco Use Types Packs/Day Years Used Date Smoking Tobacco: Never Alcohol Use Standard Drinks/Week Comments No 0 (1 standard drink = 0.6 oz pur e alcohol) Area Deprivation Index Answer Date Dennis rded National Score (1-100), lower number is lower ri sk Not on file 01/29/2020 State Score (1-10), lower number is lower risk N ot on file 01/29/2020 Data from: https://www.neighborhoodatlas.medicine.[facility].edu/. Last address used for calculation Not on file 01/29/2020 Sex and Gender Information Value Date Recorded Sex Assigned at Not on file Legal Sex Male 8:41 AM EST Gender Identity Male 01/31/2021 10:38 AM EST Sexual Orientation Not on file documented as of this encounter Miscellaneous Notes * Telephone Encounter - Debra Cifuentes - 07/16/2021 9:39 AM EDT Notes have been sent documented in this encounter Plan of Treatment Not on file documented as of this encounter Visit Diagnoses Not on filedocumented in this encounter Care Teams Balancer Scale Relationship Specialty Start Date End Date Go Foster DO PCP - General 10/24/12 documented as of this encounter
--- OUTSIDE RECORDS SUMMARY | 2024-08-09 06:41 | XMS_ITS | Encounter Summary ---
Author Organization [facility] Address [address] [place] [address] Care Team Providers Care Twist Packer Name Role Phone Go Foster Primary Care Provider [phone] Source Comments In the event this information is protected by the Federal Confidentiality of Alcohol and Drug AbusePatient Records regulations: The Federal rules restrict any use of the information to criminally investigate or prosecute any alcohol or drug abuse patient.[facility] Encounter Details Date Type Department Care Team (Late st Contact Info) Description 05/19/2024 Patient Msg Neurology [address] [id number] Kathy Groves, Research Coordinator Information sheet: updates for [facility] Natural History Database Social History Tobacco Use Types Packs/Day Years Used Date Smoking Tobacco: Never Alcohol Use Standard Drinks/Week Comments No 0 (1 standard drink = 0.6 oz pur e alcohol) PHQ-2 Answer Date Recorded PHQ-2 score 1 11/10/2023 Area Deprivation Index Answer Date Dennis rded National Score (1-100), lower number is lower ri sk Not on file 01/29/2020 State Score (1-10), lower number is lower risk N ot on file 01/29/2020 Data from: https://www.neighborhoodatlas.[facility]/. Last address used for calculation Not on [...] on filedocumented in this encounter Care Teams Twist Packer Relationship Specialty Start Date End Date Go Foster DO PCP - General 10/24/12 documented as of this encounter
--- OUTSIDE RECORDS SUMMARY | 2024-08-09 06:41 | XMS_ITS | Encounter Summary ---
Author Organization [facility] Address [address] [place] [address] Care Team Providers Care Electronic Specialist Name Role Phone Go Foster MD Primary Care Provider [phone] Sue Patrick DO Unavailable [phone] Encounter Details Date Type Department Care Team ([facility] st Contact Info) Description 05/19/2024 Abstract [facility] [address] [place] [id number] Glenn Flores DPM [address] [address] Social History Tobacco Use Types Packs/Day Years [...] on filedocumented in this encounter Care Teams Electronic Specialist Relationship Specialty Start Date End Date Go Foster MD [address] [employer] [address] [place] [address] PCP - General Family Medicine 02/09/24 Sue Patrick DO [address] [place] [address] Referring Physician Neurology 02/09/24 documented as of this encounter
--- OUTSIDE RECORDS SUMMARY | 2024-08-09 06:42 | XMS_ITS | CCD ---
Author Organization [facility] CliniSyid Care Team Providers Care Sales Trainee Name Role Phone Robbi PETERSEN Unavailable Unavailable SEPINOZA, GO A Unavailable Unavailable ESPINOZA, GO A Unavailable Unavailable Chaban, Kamal Unavailable Nalini Cj Unavailable Espinoza, DO Go A Primary Care Provider [phone] DO Cj Gayle A Attending Provider PROVIDER, UNKNOWN Attending Unavailable PROVIDER, UNKNOWN Admitting Unavailable PROVIDER, UNKNOWN Admitting Unavailable PROVIDER, UNKNOWN Attending Unavailable SIMI EDWARDS Admitting Unavailable SIMI EDWARDS Attending Unavailable SIMI EDWARDS Referring Unavailable Unavailable Primary Care Provider Unavailabl e Espinoza, DO Go A Primary Care Provider DO Cj Gayle A Attending Provider [phone] Espinoza, DO Go A Primary Care Provider [...] Ricci Primary Care Unavailable ESPINOZA, DR GO Ricic Attending Unavailable ESPINOZA, DR GO Ricci Admitting [...] Unavailable Unallocated , [place] Provider Primary Care [facility] Go Espinoza MD Primary Care Provider Sue Patrick DO Unavailable SUMEET CALI Attending Unavailable ESPINOZA, GO Ricci Primary Care Unavailable SUMEET CALI Attending Unavailable ESPINOZAGO Primary Care Unavailable SQUERI, MEGAN Referring Unavailable GLENN FLORES Attending Unavailable STEPHANIE, GLENN Ricci Attending Unavailable STEPHANIE, GLENN Radhames Attending Unavailable BROWN, GLENN Radhames Attending Unavailable BROWN, GLENN A Attending Unavailable BROWN, GLENN A Attending Unavailable BROWN, GLENN A Attending Unavailable BROWN, GLENN A Attending Unavailable ANA MARIA HSU Attending Unavailable GILLANA MARIA REED Attending Unavailable Allergies Allergy Classification Reported Allergen(s) Allergy Type Date of Onset Reaction(s) Facility (1 source) PERTUSSIS VACCINE,FLUID; Translations: [PERTUSSIS VACCINE,FLUID] Propensity to adverse reactions to drug (disorder) 7 [facility] Repository (20 sources) PERTUSSIS VACCINES; Translations: [PERTUSSIS VACCINES] Propensity to adverse reactions to drug (disorder) 8 [facility] (1 source) Pertussis Vaccine Drug Allergy 3 [facility] Repository (1 source) ARIPiprazole; Translations: [ARIPIPRAZOLE] Drug Allergy 8 [facility] Repository Medications Current Medications Medication Drug [...] 0 Active amLODIPine 5 mg oral tablet (20 sources) Dihydropyridine Calcium Channel Deena Start: 02-03-2024 [...] mg / cholecalciferol 200 unt oral tablet (20 sources) Vitamin D Start: 01-27-2023 take 1 [...] 1 ml denosumab 60 mg/ml prefilled syringe (20 sources) RANK Ligand Inhibitor Start: 07-07-2023 Prolia 60 MG/ML solution prefilled syringe 07/07/2023 Active Dentifrices (BIOTENE DRY MOUTH DENTAL) (3 sources) Dentifrices (BIO TENE DRY MOUTH DENTAL) by Dental route. Active Dentifrices (BIO TENE DRY MOUTH DENTAL) by Dental route. 0 Active docusate sodium 100 mg oral capsule (20 sources) take 1 capsule by mouth three times daily docusate sodium (Colace) 100 MG capsule TAKE ONE CAPSULE BY MOUTH 3 TIMES DAILY Active eucalyptol 0.92 mg/ml / menthol 0.42 mg/ml / methyl salicylate 0.6 mg/ml / thymol 0.64 mg/ml mouthwash (20 sources) Start: 01-28-20 23 Mouthwashes (Biotene Dry Mouth) liquid TWICE A DAY SWISH 15ML FOR 30 SEC THEN SPIT 01/27/2023 Active fluocinonide 0.5 mg/ml topical solution (20 sources) Corticosteroid Start: 03-10-19 24 fluocinonide (Lidex) [...] BEDTIME Active levETIRAcetam 500 mg oral tablet (20 sources) Start: 01-27-2023 take 1 tablet by [...] Active loratadine 10 mg disintegrating oral tablet (20 sources) take 1 tablet by mouth once daily loratadine (Claritin Reditabs) 10 MG disintegrating tablet Take 10 mg by mouth Daily Active LORazepam 1 mg oral tablet (2 sources) Benzodiazepine Start: LORazepam 1 MG as directed before testing Orally once for 1 days Jan, Active losartan potassium 100 mg oral tablet (20 sources) Angiotensin 2 Receptor Deena Start: 023 take 1 tablet by mouth at bedtime losartan (Cozaar) 100 MG tablet Take 100 mg by mouth at bedtime 01/27/2023 Active Start: 01-27-2023 take 1 tablet by elba th at bedtime losartan (Cozaar) 50 MG tablet Take 50 mg by mouth at bedtime 01/27/2023 Active meloxicam 15 mg oral tablet (20 sources) Nonsteroidal Anti-inflammatory Drug Start: 01-27-2023 take 1 tablet by mouth once daily at bedtime meloxicam (Mobic) 15 MG tablet TAKE ONE TABLET BY MOUTH DAILY AT BEDTIME MOBIC 01/27/2023 Active Multiple Vitamin (Multivitamin) tablet (20 sources) Start: 01-27-2023 take 1 tablet by [...] mouthwash (5 sources) Start: 09-24-2021 Saliva Substit teller Combo No.9 (Biotene Dry Mouth Oral Rinse) mouthwash Active 5 ML PO As Directed September 23, 2021 11:00pm Start: 09-24-2021 Saliva Substit teller Combo No.9 (Biotene Dry Mouth Oral Rinse) mouthwash Active 5 ML PO As Directed September 24, 2021 12:00am traMADol hydrochloride 50 mg oral tablet (20 sources) Opioid Agonist Start: 09-24-2021 take 50 mg by mouth every four hours Tramadol Active 50 MG PO Q4H 42 7 September 23, 2021 11:00pm triamcinolone acetonide 1 mg/ml topical cream (20 sources) Corticosteroid triamcinolone (Kenalog) 0.1 % cream [...] Onset: 09-25-2021 Joint disorders and dislocations; trauma-related (8 sources) Traumatic dislocation of joint of foot; [...] Onset: 04-11-2022 Episodic Other connective tissue disease (20 sources) Myofascial pain syndrome; Translations: [Myalgia, other [...] Spondylosis; intervertebral disc disorders; other back problems (20 sources) Spasm of back muscles; Translations: [Muscle [...] 10-16-2021 Episodic Other aftercare (1 source) Other watermaster (current) drug therapy; Translations: [OTH ANALYST BUSINESS ANALYSIS CURRENT DRUG THERAPY] Onset: 09-25-2021 Episodic Other liver diseases (20 sources) Alkaline phosphatase raised; Translations: [Abnormal levels [...] Free T3 [Mass/Vol] 1.8 pg/mL Low 2.0-4.4 [place] Comment on above: Result Comment: Perf ormed at: [facility] [address] [id number] PhD Jarod Kumar Performed By: #### 2 [id number] #### [facility] [address] [place] [address] [id number] 08-20-2023 HbA1c (Bld) [Mass fraction] 5.1 % Normal <=5.9 [place] Comment on above: Performed By: #### 7 [id number] #### [facility] [address] [place] [address] CBC w/Indiceson 08-19-2023 Erythrocyte distribution width (RBC) [Ratio] 13.2 % Normal 10.9-14.2 [place] Comment on above: Performed By: #### 2 496566 #### [facility] [address] [place] [address] Hematocrit (Bld) [Volume fraction] 39.3 % Normal 37.7-49.0 [place] Comment on above: Performed By: #### 2 191921 #### [facility] [address] [place] [address] Hemoglobin (Bld) [Mass/Vol] 13.0 g/dL Low 13.5-17.5 [place] Comment on above: Performed By: #### 2 422527 #### [facility] [address] [place] [address] MCH (RBC) [Entitic mass] 33.1 pg Normal 27.0-34.0 [place] Comment on above: Performed By: #### 2 958074 #### [facility] [address] [place] [address] MCHC (RBC) [Mass/Vol] 33.2 g/dL Normal 31.4-36.0 [facility] Comment on above: Performed By: #### 2 698341 #### [facility] [address] [place] [address] MCV (RBC) [Entitic vol] 99.7 fL Normal 80.0-100.0 [place] Comment on above: Performed By: #### 2 652831 #### [facility] [address] [place] [address] Platelet mean volume (Bld) [Entitic vol] 8.9 fL Normal 6.4-10.8 [place] Comment on above: Performed By: #### 2 123661 #### [facility] [address] [place] [address] Platelets (Bld) [#/Vol] 156.0 E9/L Normal 150.0-500.0 [place] Comment on above: Performed By: #### 2 738095 #### [facility] [address] [place] [address] RBC (Bld) [#/Vol] 3.9 E12/L Low 4.3-5.9 [facility] Comment on above: Performed By: #### 2 357965 #### [facility] [address] [place] [address] RBC size Nom (Bld) NORMAL Invalid Interpretation Code [facility] Comment on above: Performed By: #### 2 400095 #### [facility] [address] [place] [address] WBC corrected for nucl RBC Auto (Bld) [#/Vol] 5.3 E9/L Normal 4.0-11.0 [facility] Comment on above: Performed By: #### 2 256539 #### [facility] [address] [place] [address] CHEMISTRYOrdered By: SYSTEM SYSTEM on 08-19-2023 25-hydroxyvitamin [...] used for this result was chemiluminescence using [employer]'s Access Hybritech PSA reagent. Protein [Mass/Vol] 6.9 [...] 08-19-2023 Albumin [Mass/Vol] 4.1 g/dL Normal 3.3-5.0 [facility] Comment on above: Performed By: #### 2 420479 #### [facility] [address] [place] [address] Albumin/Globulin (S) [Mass conc ratio] 1.5 Normal 1.1-2.2 [facility] Comment on above: Performed By: #### 2 878274 #### [facility] [address] [place] [address] ALP [Catalytic activity/Vol] 161 Int._Unit/L High 21-98 [facility] Comment on above: Performed By: #### 2 557255 #### [facility] [address] [place] [address] ALT No additional P-5'-P [Catalytic activity/Vol] 30 Int._Unit/L Normal 6-46 [place] Comment on above: Performed By: #### 2 381089 #### [facility] [address] [place] [address] Anion gap [Moles/Vol] 10 mmol/L Normal 6-16 [facility] Comment on above: Performed By: #### 2 789501 #### [facility] [address] [place] [address] AST [Catalytic activity/Vol] 21 Int._Unit/L Normal 5-43 [facility] Comment on above: Performed By: #### 2 192022 #### [facility] [address] [place] [address] Bilirubin [Mass/Vol] 0.4 mg/dL Normal 0.0-1.1 [facility] Comment on above: Performed By: #### 2 506889 #### [facility] [address] [place] [address] Calcium [Mass/Vol] 8.9 mg/dL Normal 8.9-11.1 [place] Comment on above: Performed By: #### 2 739796 #### [facility] [address] [place] [address] Chloride [Moles/Vol] 113 mmol/L High 101-111 [facility] Comment on above: Performed By: #### 2 660489 #### [facility] [address] [place] [address] CO2 [Moles/Vol] 24 mmol/L Normal 21-31 [facility] Comment on above: Performed By: #### 2 421421 #### [facility] [address] [place] [address] Creatinine [Mass/Vol] 1.6 mg/dL High 0.5-1.3 [facility] Comment on above: Performed By: #### 2 302631 #### [facility] [address] [place] [address] Globulin (S) [Mass/Vol] 2.8 g/dL Normal 1.4-4.0 [facility] Comment on above: Performed By: #### 2 152004 #### [facility] [address] [place] [address] Glucose [Mass/Vol] 86 mg/dL Normal 55-199 [facility] Comment on above: Performed By: #### 2 885889 #### [facility] [address] [place] [address] Potassium [Moles/Vol] 4.8 mmol/L Normal 3.5-5.3 [facility] Comment on above: Performed By: #### 2 000505 #### [facility] [address] [place] [address] Protein [Mass/Vol] 6.9 g/dL Normal 6.0-7.8 [facility] Comment on above: Performed By: #### 2 587558 #### [facility] [address] [place] [address] Sodium [Moles/Vol] 142 mmol/L Normal 135-145 [facility] Comment on above: Performed By: #### 2 962267 #### [facility] [address] [place] [address] Urea nitrogen [Mass/Vol] 30 mg/dL High 5-21 [facility] Comment on above: Performed By: #### 2 515558 #### [facility] [address] [place] [address] Urea nitrogen/Creatinine [Mass ratio] 19 No Units Normal 10-20 [facility] Comment on above: Performed By: #### 2 367976 #### [facility] [address] [place] [address] Free T4on 08-19-2023 Free T4 [Mass/Vol] 0.56 ng/dL Low 0.58-1.64 [facility] Comment on above: Performed By: #### 2 944002 #### [facility] [address] [place] [address] HEMATOLOGYOrdered By: SYSTEM SYSTEM on 08-19-2023 Erythrocyte [...] 08-19-2023 Cholesterol [Mass/Vol] 108 mg/dL Low 120-200 [facility] Comment on above: Performed By: #### 2 977884 #### [facility] [address] [place] [address] Cholesterol in HDL [Mass/Vol] 34 mg/dL Invalid Interpretation Code [facility] Comment on above: Result Comment: '>= 60 LOW RISK' '<= 40 HIGH RISK' Performed By: #### 2 928270 #### [facility] [address] [place] [address] Cholesterol in LDL [Mass/Vol] 59 mg/dL Normal <=129 [facility] Comment on above: Performed By: #### 2 015268 #### [facility] [address] [place] [address] Cholesterol in VLDL [Mass/Vol] 19 mg/dL Normal 7-40 [facility] Comment on above: Performed By: #### 2 797091 #### [facility] [address] [place] [address] Triglyceride [Mass/Vol] 94 mg/dL Normal <=149 [facility] Comment on above: Performed By: #### 2 843843 #### [facility] [address] [place] [address] PSA Screen, Totalon 08-19-19 Prostate specific Ag [Mass/Vol] 0.4 ng/mL Normal 0.1-3.5 [facility] Comment on above: Result Comment: The concentration of PSA determined by different manufacturers can vary due to differences in assay methods and reagent specificity. Values obtained from different assay methods cannot be used interchangeably. The methodology used for this result was chemiluminescence using [employer]'s Access Hybritech PSA reagent. Performed By: #### 1 [id number] #### [facility] [address] [place] [address] Physician Orderon 08-19-2023 Physician Order [id number] 9#1.00TIFF Normal [facility] TSHon 08-19-2023 TSH Qn 0.10 m[IU]/L Low 0.34-5.60 [facility] Comment on above: Performed By: #### 2 472769 #### [facility] [address] [place] [address] Vitamin D 25 Hydroxyon 08-18 25-hydroxyvitamin D3 [Mass/Vol] 42.7 ng/mL Normal 30.0-100.0 [facility] Comment on above: Performed By: #### 5 [id number] #### [facility] [address] [place] [address] eGFRon 08-19-2023 eGFR 50 mL/min/1.73 m2 Low >=59 [facility] Comment on above: Order Comment: Order added by Discern Expert. Performed By: #### 1 [id number] #### [facility] [address] [place] [address] T3 Freeon 02-27-2023 Free T3 [Mass/Vol] 2.0 pg/mL Invalid Interpretation Code 2.0-4.4 [facility] Comment on above: Result Comment: Perf ormed at: [facility] [id number] [place], [place] [id number] PhD Jarod Kumar Performed By: #### 2 951223, 7352276, 8679086, 08081473, 724650716, 1336598, 6690680, 0015429, 2489881, 1734546 ####[facility] [address] [place] [address] CBC w/Indiceson 02-25-2023 Erythrocyte distribution width (RBC) [Ratio] 13.2 % Normal 10.9-14.2 [facility] Comment on above: Performed By: #### 2 200111, 2148146, 2730014, 03455536, 520090472, 6484646, 6158212, 0005756, 8643997, 1297045 #### [facility] [address] [place] [address] Hematocrit (Bld) [Volume fraction] 40.6 % Normal 37.7-49.0 [facility] Comment on above: Performed By: #### 2 178873, 1545712, 3176399, 60107649, 325631231, 0575356, 7290534, 9524553, 0199465, 1073330 #### [facility] [address] [place] [address] Hemoglobin (Bld) [Mass/Vol] 13.4 g/dL Low 13.5-17.5 [facility] Comment on above: Performed By: #### 2 937177, 8798019, 3071581, 85681237, 800511499, 4212386, 9925285, 5666212, 6197784, 4619232 #### [facility] [address] [place] [address] MCH (RBC) [Entitic mass] 32.7 pg Normal 27.0-34.0 [facility] Comment on above: Performed By: #### 2 919924, 7506448, 7743030, 66541729, 876878338, 9256922, 8019486, 6464656, 8572914, 6901622 #### [facility] [address] [place] [address] MCHC (RBC) [Mass/Vol] 33.0 g/dL Normal 31.4-36.0 [facility] Comment on above: Performed By: #### 2 368284, 4444256, 6584128, 02790298, 014206822, 3823757, 7526005, 7679497, 3457647, 7089231 #### [facility] [address] [place] [address] MCV (RBC) [Entitic vol] 99.1 fL Normal 80.0-100.0 [facility] Comment on above: Performed By: #### 2 065371, 9116567, 6838253, 65265278, 743614202, 0433564, 6272964, 1931083, 2002072, 1553117 #### [facility] [address] [place] [address] Platelet mean volume (Bld) [Entitic vol] 9.6 fL Normal 6.4-10.8 [facility] Comment on above: Performed By: #### 2 311747, 3116866, 9383404, 08669990, 422218903, 4669439, 5069096, 2931567, 9002770, 8326732 #### [facility] [address] [place] [address] Platelets (Bld) [#/Vol] 170.0 E9/L Normal 150.0-500.0 [facility] Comment on above: Performed By: #### 2 864187, 1212739, 1099178, 04235025, 642267857, 1222564, 2701043, 2581523, 4035492, 2525971 #### [facility] [address] [place] [address] RBC (Bld) [#/Vol] 4.1 E12/L Low 4.3-5.9 [facility] Comment on above: Performed By: #### 2 859741, 1912562, 2321504, 58743606, 229839493, 2030970, 6277757, 1782791, 5167683, 2590663 #### [facility] [address] [place] [address] WBC corrected for nucl RBC Auto (Bld) [#/Vol] 4.4 E9/L Normal 4.0-11.0 [facility] Comment on above: Performed By: #### 2 438811, 4664458, 5976693, 94197634, 322018204, 0775243, 5822753, 1197876, 0389097, 9777244 #### [facility] [address] [place] [address] CHEMISTRYOrdered By: SYSTEM SYSTEM on 02-25-2023 Albumin [...] 02-25-2023 Albumin [Mass/Vol] 4.1 g/dL Normal 3.3-5.0 [facility] Comment on above: Performed By: #### 2 849663, 5992233, 2784095, 33559868, 703740248, 5849001, 6485714, 9790462, 4241918, 4486978 #### [facility] [address] [place] [address] Albumin/Globulin [Mass ratio] 1.4 {ratio} Normal 1.1-2.2 [facility] Comment on above: Performed By: #### 2 445326, 2470234, 0163349, 84051599, 261153782, 0531713, 3254792, 4320966, 9242132, 1703275 #### [facility] [address] [place] [address] Alk Phos 158 Int._Unit/L High 21-98 [facility] Comment on above: Performed By: #### 2 871235, 4667297, 8104651, 29416593, 660100347, 0040752, 6230810, 8417403, 4871737, 4488168 #### [facility] [address] [place] [address] ALT 32 Int._Unit/L Normal 6-46 [facility] Comment on above: Performed By: #### 2 927741, 0538252, 8464793, 57117844, 079879793, 8170210, 0250547, 5156672, 3143435, 0312890 #### [facility] [address] [place] [address] Anion gap [Moles/Vol] 12 mmol/L Normal 6-16 [facility] Comment on above: Performed By: #### 2 765987, 3570014, 2579578, 09973882, 644699334, 0598127, 5341478, 6931878, 6780967, 5728595 #### [facility] [address] [place] [address] AST 25 Int._Unit/L Normal 5-43 [facility] Comment on above: Performed By: #### 2 143666, 6604259, 9560496, 75737924, 947994516, 1514521, 4467436, 9629590, 2942397, 8276603 #### [facility] [address] [place] [address] Bili Total 0.3 mg/dL Normal 0.0-1.1 [facility] Comment on above: Performed By: #### 2 127732, 6548831, 0981069, 50020013, 505352888, 5657738, 9937160, 7986748, 8167313, 3993099 #### [facility] [address] [place] [address] BUN/Creat Ratio 17 No Units Normal 10-20 [facility] Comment on above: Performed By: #### 2 792316, 9900577, 4834831, 20346976, 049040115, 9934774, 6727390, 1490579, 6946456, 4112105 #### [facility] [address] [place] [address] Calcium [Mass/Vol] 8.9 mg/dL Normal 8.9-11.1 [facility] Comment on above: Performed By: #### 2 219560, 0446466, 0552519, 91092940, 594425250, 1074519, 5085008, 3224820, 2663608, 7452505 #### [facility] [address] [place] [address] Chloride [Moles/Vol] 113 mmol/L High 101-111 [facility] Comment on above: Performed By: #### 2 877418, 9663339, 5234442, 97198867, 307421944, 6237722, 2037648, 3543406, 3408673, 4856706 #### [facility] [address] [place] [address] CO2 [Moles/Vol] 22 mmol/L Normal 21-31 [facility] Comment on above: Performed By: #### 2 543383, 2197795, 4407772, 59838274, 623639005, 9673135, 5399580, 1769325, 5291580, 0120303 #### [facility] [address] [place] [address] Creatinine [Mass/Vol] 1.5 mg/dL High 0.5-1.3 [facility] Comment on above: Performed By: #### 2 995146, 4426594, 1806962, 65117512, 671358434, 2010846, 9204571, 7852513, 9832213, 0299104 #### [facility] [address] [place] [address] Globulin (S) [Mass/Vol] 2.9 g/dL Normal 1.4-4.0 [facility] Comment on above: Performed By: #### 2 952428, 9950216, 7204558, 66133372, 066791806, 2706267, 8150511, 8687175, 8292476, 6214265 #### [facility] [address] [place] [address] Glucose [Mass/Vol] 90 mg/dL Normal 55-199 [facility] Comment on above: Performed By: #### 2 741003, 6502959, 9515196, 08871619, 627607526, 7055496, 4740879, 2430756, 2473329, 3561461 #### [facility] [address] [place] [address] Potassium [Moles/Vol] 4.8 mmol/L Normal 3.5-5.3 [facility] Comment on above: Performed By: #### 2 183921, 2394187, 1369604, 13923830, 686119681, 3891823, 1418824, 7051815, 3221708, 4709770 #### [facility] [address] [place] [address] Protein [Mass/Vol] 7.0 g/dL Normal 6.0-7.8 [facility] Comment on above: Performed By: #### 2 469703, 2895225, 2221676, 11954280, 091504948, 7909012, 5655390, 2135870, 2677142, 2294222 #### [facility] [address] [place] [address] Sodium [Moles/Vol] 142 mmol/L Normal 135-145 [facility] Comment on above: Performed By: #### 2 527932, 1065371, 0616374, 56287485, 292757817, 1165754, 8620326, 0822267, 0406464, 6710161 #### [facility] [address] [place] [address] Urea nitrogen [Mass/Vol] 26 mg/dL High 5-21 [facility] Comment on above: Performed By: #### 2 138526, 6428689, 7829482, 13374850, 452797374, 4477209, 7812640, 7727181, 1973066, 2521208 #### [facility] [address] [place] [address] Free T4on 02-25-2023 Free T4 [Mass/Vol] 0.66 ng/dL Normal 0.58-1.64 [facility] Comment on above: Performed By: #### 2 370660, 5537839, 6487824, 16838797, 462086219, 1894441, 4710524, 9547727, 0682973, 3742507 #### [facility] [address] [place] [address] HEMATOLOGYOrdered By: Clarence Srivastava on 02-25-2023 Erythrocyte [...] Ironon 02-25-2023 Iron 130 microgram/dL Normal 35-153 [facility] Comment on above: Performed By: #### 2 737297, 0127024, 1856954, 51320868, 600582520, 2219322, 2683523, 5753687, 0929816, 2370991 #### [facility] [address] [place] [address] Lipid Panelon 02-25-2023 Cholesterol [Mass/Vol] 105 mg/dL Low 120-200 [facility] Comment on above: Performed By: #### 2 191373, 9841885, 0010651, 99381677, 856147100, 7328560, 7061997, 8997503, 9033447, 0627717 #### [facility] [address] [place] [address] Cholesterol in HDL [Mass/Vol] 40 mg/dL Invalid Interpretation Code [facility] Comment on above: Result Comment: '>= 60 LOW RISK' '<= 40 HIGH RISK' Performed By: #### 2 021032, 3472774, 8802094, 06588765, 566524740, 2529436, 8302450, 2979653, 5847519, 5926939 #### [facility] [address] [place] [address] Cholesterol in LDL [Mass/Vol] 54 mg/dL Normal <=129 [facility] Comment on above: Performed By: #### 2 090543, 3407163, 5251225, 92238383, 774641323, 1688551, 1505391, 8943709, 6698774, 3318793 #### [facility] [address] [place] [address] Cholesterol in VLDL [Mass/Vol] 16 mg/dL Normal 7-40 [facility] Comment on above: Performed By: #### 2 928475, 5504824, 4761556, 45016211, 534329457, 1505457, 0760731, 5647735, 8202337, 2205172 #### [facility] [address] [place] [address] Triglyceride [Mass/Vol] 81 mg/dL Normal <=149 [facility] Comment on above: Performed By: #### 2 521176, 2500348, 9853413, 24808815, 688330070, 4165860, 6720053, 6322738, 9612530, 3355221 #### [facility] [address] [place] [address] Physician Orderon 02-25-2023 Physician Order [id number] 5#1.00TIFF Normal [facility] TSHon 02-25-2023 TSH Qn 0.03 m[IU]/L Low 0.34-5.60 [facility] Comment on above: Performed By: #### 2 729288, 3518513, 3262849, 10707509, 170335253, 7604353, 4014620, 9144829, 1031724, 5153334 #### [facility] [address] [place] [address] Vit B12on 02-25-2023 Cobalamin (Vitamin B12) [Mass/Vol] 483 pg/mL Normal 50-1500 [place] Comment on above: Performed By: #### 2 [id number], [id number], [id number], [id number], [id number], [id number], 1296902, 7247295, 3629504, 2387040 #### [facility] [address] [place] [address] Vitamin D 25 Hydroxyon 02-25 Vitamin D 25 Hydroxy 50.9 ng/mL Normal 30.0-100.0 [facility] Comment on above: Performed By: #### 2 106655, [id number], 6171048, [id number], [id number], 4286414, 1938925, 5467680, 5810234, 1405282 ####[place] [address] [place] [address] eGFRon 02-25-2023 eGFR 55 mL/min/1.73 m2 Low >=59 [place] Comment on above: Order Comment: Order added by Discern Expert. Performed By: #### 2 368130, 2232999, 7954048, [id number], [id number], 3124809, 5976650, 8594531, 3522353, 7088595 #### [facility] [address] [place] [address] PSA Screen, Totalon 11-14-19 23 Prostate specific Ag [Mass/Vol] 0.5 ng/mL Normal 0.1-3.5 [place] Comment on above: Result Comment: The concentration of PSA determined by different manufacturers can vary due to differences in assay methods and reagent specificity. Values obtained from different assay methods cannot be used interchangeably. The methodology used for this result was chemiluminescence using [employer]'s Access Hybritech PSA reagent. Performed By: #### 1 [id number] ####[place] [address] [place] [address] Physician Orderon 11-12-2022 Physician Order [id number] 7#[id number]:127 Normal [place] US KIDNEYS BLADDERon 023 US KIDNEYS BLADDER [...] NORMA ROSS Date: 2022-05-27 08:52 Normal [facility] XR PELVIS 1_2 VIEWSon 2022 XR PELVIS [...] JONAH MAJANO Date: 2022-04-14 08:21 Normal [facility] XR HIP RT 2 3V WO PELVISon 0 04-10-2022 XR HIP RT 2 3V WO PELVIS EXAM: XR HIP RT. HISTORY: . Pain in right leg . COMPARISON: None. TECHNIQUE: 2 views FINDINGS: No fracture or dislocation of the hip is noted. Joint spaces well-maintained. Surrounding soft tissues are unremarkable. IMPRESSION: Negative right hip. Electronically authenticated by: NORMA FLORES Date: 2022-04-10 08:41 Normal [facility] Glucose Poct Glucometerson 0 04-09-2022 Commemt1 Normal [facility] Comment on above: Result Comment: Glu2 : WILL NOTIFY DR/RN PERFORMED BY: [facility] [address] [place] [address] PATHOLOGIST DISP[employer]ING [employer]ICIAN CHRISTINE FERNÁNDEZ M.D. Performed By: #### G JEAN PIERRE #### Point of Care testing , Glucose [Mass/Vol] 58 mg/dL Off scale low [facility] Comment on above: Result Comment: [place] Glucose Reference Range is dependent on time and content of last meal. Glucose of more than 200 mg/dL in a nonstressed, ambulatory subject supports the diagnosis of Diabetes Mellitus. Performed By: #### G LULS #### Point of Care testing , PET tumor init tx strat sb-m ton 04-09-2022 PET tumor init tx strat sb-mt [facility] [place] [address] [place] [address] Nuclear Medicine Report Signed Patient: Delano Segovia MR#: [id number] : 1970 Acct:[id number] Age/Sex: 52 / M ADM Date: 04/09/22 Loc: Room: Type: [facility] Attending Dr: Nallely Parada MD Copies [...] Guzman Jr., D.O.04/09/2022 1:09 PM Dictation Location: [place] [address] Transcribed By: [facility] 04/09/22 1309 Dictated By: Panda De Guzman Jr, DO 04/09/22 1259 Signed By: 04/09/22 1309 Normal [facility] Glucose Glucometer (BldC) [M ass/Vol]Ordered By: Nallely Parada on 03-12-2022 Glucose [Mass/Vol] 95 mg/dL [facility] Comment on above: [place] Glucose Refer ence Range is dependent on time and content of last meal. Glucose of more than 200 mg/dL in a nonstressed, ambulatory subject supports the diagnosis of Diabetes Mellitus. Glucose Poct Glucometerson 0 03-12-2022 Glucose [Mass/Vol] 95 mg/dL Normal [facility] Comment on above: Result Comment: [place] om Glucose Reference Range is dependent on time and content of last meal. Glucose of more than 200 mg/dL in a nonstressed, ambulatory subject supports the diagnosis of Diabetes Mellitus. PERFORMED BY: [facility] [address] [place] [address] PATHOLOGIST [employer]ING [employer]ICIAN CHRISTINE FERNÁNDEZ M.D. Performed By: #### G LULS #### Point of Care testing , CBC AUTO DIFFon 03-11-2022 BASO # 0.0 103/ul Normal 0.0-0.1 [facility] Comment on above: Performed By: #### C BC ####[facility] [address] [place] [address]Dr. Guille Mayo Basophils/100 WBC (Bld) 0.6 % Normal 0.2-2.0 [facility] Comment on above: Performed By: #### C BC ####[facility] [address] [place] [id number]. Yilan Mayo EO # 0.2 103/ul Normal 0.0-0.7 [facility] Comment on above: Performed By: #### C BC ####[facility] [address] [place] [address]Dr. Yilan Mayo Eosinophils/100 WBC (Bld) 2.8 % Normal 0.9-7.0 [facility] Comment on above: Performed By: #### C BC ####[facility] [address] [place] [address]Dr. Kylahizzy Mayo Erythrocyte distribution width (RBC) [Ratio] 12.6 % Normal 11.0-15.0 [facility] Comment on above: Performed By: #### C BC ####[facility] [address] [place] [address]Dr. Guille Mayo Hematocrit (Bld) [Volume fraction] 40.4 % Critically low 42.0-54.0 [facility] Comment on above: Performed By: #### C BC ####[facility] [address] [place] [address]Dr. Kylahizzy Mayo Hemoglobin (Bld) [Mass/Vol] 13.7 g/dL Critically low 14.0-18.0 [facility] Comment on above: Performed By: #### C BC ####[facility] [address] [place], [place] [address]Dr. Guille Mayo IG # 0.02 10e3/ul Normal 0.00-0.03 [facility] Comment on above: Performed By: #### C BC ####[facility] [address] [place], [place] [address]Dr. Guille Mayo IG % 0.4 % Normal 0.0-0.5 [facility] Comment on above: Performed By: #### C BC ####[facility] [address] [place], [place] [address]Dr. Guille Mayo LYMPH # 1.1 103/ul Critically low 1.2-3.8 [facility] Comment on above: Performed By: #### C BC ####[facility] [address] [place], [place] [address]Dr. Guille Mayo Lymphocytes/100 WBC (Bld) 20.8 % Normal 20.5-60.0 [facility] Comment on above: Performed By: #### C BC ####[facility] [address] [place], [place] [address]Dr. Guille Mayo MANUAL DIFF REQ NO Normal [facility] Comment on above: Performed By: #### C BC ####[facility] [address] [place], [place] [address]Dr. Guille Mayo MCH (RBC) [Entitic mass] 32.3 pg Normal 25.9-34.0 [facility] Comment on above: Performed By: #### C BC ####[facility] [address] [place] [address]Dr. Guille Mayo MCHC (RBC) [Mass/Vol] 33.9 g/dL Normal 29.9-35.2 [facility] Comment on above: Performed By: #### C BC ####[facility] [address] [place] [address]Dr. Guille Mayo MCV (RBC) [Entitic vol] 95.3 fL Critically high 80.0-94.0 [facility] Comment on above: Performed By: #### C BC ####[facility] [address] [place] [address]Dr. Guille Mayo MONO # 0.4 103/ul Normal 0.3-0.8 [facility] Comment on above: Performed By: #### C BC ####[facility] [address] [place] [address]Dr. Guille Gael Monocytes/100 WBC (Bld) 7.4 % Normal 1.7-12.0 [facility] Comment on above: Performed By: #### C BC ####[facility] [address] [place], [place] [address]Dr. Guille Mayo NEUT # 3.7 103/ul Normal 1.4-6.5 [facility] Comment on above: Performed By: #### C BC ####[facility] [address] [place] [address]Dr. Guille Gael Neutrophils/100 WBC (Bld) 68.0 % Normal 43.0-75.0 [facility] Comment on above: Performed By: #### C BC ####[facility] [address] [place] [address]Dr. Guille Mayo Platelet mean volume (Bld) [Entitic vol] 10.4 fL Normal 9.5-13.5 [facility] Comment on above: Performed By: #### C BC ####[facility] [address] [place], [place] [address]Nn. Kylahizzy Mayo PLT 133 103/ul Critically low 150-450 [facility] Comment on above: Performed By: #### C BC ####[facility] [address] [place], [place] [address]Yn. Guille Mayo RBC 4.24 106/ul Critically low 4.70-6.10 [facility] Comment on above: Performed By: #### C BC ####[facility] [address] [place] [id number]. Kylahizzy Mayo WBC 5.4 103/ul Normal 4.0-11.0 [facility] Comment on above: Performed By: #### C BC ####[facility] [address] [place] [address]Dr. Guille Mayo FREE T4on 03-11-2022 Free T4 [Mass/Vol] 0.68 ng/dL Critically low 0.76-1.46 [facility] Comment on above: Performed By: #### F T4 #### [facility] [address] [place] [address] [address] Guille Mayo LIPID PROFILEon 03-11-2022 CHOL-HDL RATIO NORM SEE BELOW Normal [facility] Comment on above: Result Comment: 3.3 - 4.4 LOW RISK 4.4 - 7.1 AVERAGE RISK 7.1 - 11.0 MODERATE RISK >11.0 HIGH RISK Performed By: #### L IPID, TSH, CMP #### [facility] [address] [place] [address] [address] Guille Mayo Cholesterol [Mass/Vol] 130 mg/dL Normal <=200 [facility] Comment on above: Performed By: #### L IPID, TSH, CMP #### [facility] [address] [place] [address] [address] Guille Mayo Cholesterol in HDL [Mass/Vol] 45 mg/dL Normal 40-60 [facility] Comment on above: Performed By: #### L IPID, TSH, CMP #### [facility] [address] [place] [address] [address] Guille Mayo Cholesterol in LDL [Mass/Vol] 67.6 mg/dL Normal [facility] Comment on above: Performed By: #### L IPID, TSH, CMP #### [facility] [address] [place] [address] Dr. Guille Mayo Cholesterol.total/Cho lesterol in HDL [Mass ratio] 2.9 {ratio} Normal [facility] Comment on above: Performed By: #### L IPID, TSH, CMP #### [facility] [address] [place] [address] [address] Guille Mayo HDL NORMAL > or = 60 mg/dl - LOW CARDIOVASCULAR RISK <40 mg/dl - HIGH CARDIOVASCULAR RISK Normal [facility] Comment on above: Performed By: #### L IPID, TSH, CMP #### [facility] [address] [place] [address] Dr. Guille Mayo LDL CALC NORMAL SEE BELOW Normal [facility] Comment on above: Result Comment: <100 mg/dl OPTIMAL 100 - 129 mg/dl NEAR OR ABOVE OPTIMAL 130 - 159 mg/dl BORDERLINE HIGH 160 - 189 mg/dl HIGH >190 mg/dl VERY HIGH Performed By: #### L IPID, TSH, CMP #### [facility] [address] [place] [address] Dr. Guille Mayo Triglyceride [Mass/Vol] 87 mg/dL Normal <=150 [facility] Comment on above: Performed By: #### L IPID, TSH, CMP #### [facility] [address] [place] [address] Dr. Guille Mayo VLDL CALC 17.4 mg/dL Normal [facility] Comment on above: Performed By: #### L IPID, TSH, CMP #### [facility] [address] [place] [address] [address] Guille Mayo PROF 14(COMP METB)on 023 Albumin [Mass/Vol] 3.8 g/dL Normal 3.4-5.0 [facility] Comment on above: Performed By: #### L IPID, TSH, CMP #### [facility] [address] [place] [address] Dr. Guille Mayo Albumin/Globulin [Mass ratio] 1.0 {ratio} Normal [facility] Comment on above: Performed By: #### L IPID, TSH, CMP #### [facility] [address] [place] [address] Dr. Guille Mayo ALP [Catalytic activity/Vol] 217 U/L Critically high 46-116 [facility] Comment on above: Performed By: #### L IPID, TSH, CMP #### [facility] [address] [place] [address] Dr. Guille Mayo ALT [Catalytic activity/Vol] 38 U/L Normal 16-63 [facility] Comment on above: Performed By: #### L IPID, TSH, CMP #### [facility] [address] [place] [address] Dr. Guille Mayo Anion gap [Moles/Vol] 12.2 mmol/L Normal [facility] Comment on above: Performed By: #### L IPID, TSH, CMP #### [facility] [address] [place] [address] Dr. Guille Mayo AST [Catalytic activity/Vol] 32 U/L Normal 15-37 [facility] Comment on above: Performed By: #### L IPID, TSH, CMP #### [facility] [address] [place] [address] Dr. Guille Mayo Bilirubin [Mass/Vol] 0.3 mg/dL Normal 0.2-1.0 [facility] Comment on above: Performed By: #### L IPID, TSH, CMP #### [facility] [address] [place] [address] Dr. Guille Mayo Calcium [Mass/Vol] 9.3 mg/dL Normal 8.5-10.1 [facility] Comment on above: Performed By: #### L IPID, TSH, CMP #### [facility] [address] [place] [address] Dr. Guille Mayo Chloride [Moles/Vol] 106 mmol/L Normal 98-107 [facility] Comment on above: Performed By: #### L IPID, TSH, CMP #### [facility] [address] [place] [address] [address] Guille Mayo CO2 [Moles/Vol] 27.2 mmol/L Normal 21.0-32.0 [facility] Comment on above: Performed By: #### L IPID, TSH, CMP #### [facility] [address] [place] [address] [address] Guille Mayo Creatinine [Mass/Vol] 1.31 mg/dL Critically high 0.70-1.30 [facility] Comment on above: Performed By: #### L IPID, TSH, CMP #### [facility] [address] [place] [address] [address] Guille Mayo EGFR-AF KENYAN >60 Normal >=60 [facility] Comment on above: Performed By: #### L IPID, TSH, CMP #### [facility] [address] [place] [address] Dr. Guille Mayo EGFR-NON AF KENYAN 57 mL/min/1.73m2 Critically low >=60 [facility] Comment on above: Performed By: #### L IPID, TSH, CMP #### [facility] [address] [place] [address] [address] Guille Mayo Globulin (S) [Mass/Vol] 3.8 g/dL Normal [facility] Comment on above: Performed By: #### L IPID, TSH, CMP #### [facility] [address] [place] [address] Dr. Guille Mayo Glucose [Mass/Vol] 98 mg/dL Normal 74-106 [facility] Comment on above: Performed By: #### L IPID, TSH, CMP #### [facility] [address] [address] [address] Guille Mayo Potassium [Moles/Vol] 4.4 mmol/L Normal 3.5-5.1 [facility] Comment on above: Performed By: #### L IPID, TSH, CMP #### [facility] [address] [place] [address] [address] Guille Mayo Protein [Mass/Vol] 7.6 g/dL Normal 6.4-8.2 [facility] Comment on above: Performed By: #### L IPID, TSH, CMP #### [facility] [address] [place], [place] [address] Dr. Guille Mayo Sodium [Moles/Vol] 141 mmol/L Normal 136-145 [facility] Comment on above: Performed By: #### L IPID, TSH, CMP #### [facility] [address] [place], [place] [address] Dr. Guille Mayo Urea nitrogen [Mass/Vol] 27.0 mg/dL Critically high 7.0-18.0 [facility] Comment on above: Performed By: #### L IPID, TSH, CMP #### [facility] [address] [place] [address] [address] Guille Mayo Urea nitrogen/Creatinine [Mass ratio] 20.6 mg/mg Normal [facility] Comment on above: Performed By: #### L IPID, TSH, CMP #### [facility] [address] [place] [id number] [address] Guille Mayo TSHon 03-11-2022 TSH 0.278 uIU/mL Critically low 0.358-3.740 [facility] Comment on above: Performed By: #### L IPID, TSH, CMP ####[facility] [address] [place], [place] [address]DfDr. Guille Mayo XR ankle RT min 3V*on 2021 XR ankle RT min 3V* [facility] [place] [address] [place] [address] XRay Report Signed Patient: Delano Segovia MR#: [id number] : 1970 Acct:[id number] Age/Sex: 51 / M ADM Date: 01/06/22 Loc: [facility]: Cj Gayle DO Copies to: [...] Geovanny Magallanes M.D.01/06/2022 3:54 PM Dictation Location: [place] [address] Transcribed By: [facility] 01/06/22 1554 Dictated By: Geovanny Magallanes DO 01/06/22 1553 Signed By: 01/06/22 1554 Normal [facility] XR ankle RT min 3V* [facility] [email or web address] Other XR ankle RT min 3V* [facility] [email or web address] Other XR ankle RT min 3V* [address] [place] [address] [email or web address] Other XR ankle RT min 3V* [place] [address] Subtext Other XR ankle RT min 3V* XRay Report Nort DNS:Net Other XR ankle RT min 3V* Signed Subtext Other XR ankle RT min 3V* Patient: Delano Segovia MR#: [id number] Subtext Other XR ankle RT min 3V* : 1970 Acct:[id number] Subtext Other XR ankle RT min 3V* Age/Sex: 51 / M ADM Date: 01/06/22 Subtext Other XR ankle RT min 3V* Loc: [facility] Room: Type: [facility] Subtext Other XR ankle RT min 3V* Attending Dr: Cj Gayle DO Subtext Other XR ankle RT min 3V* Copies to: Cj Gayle DO Subtext Other XR ankle RT min 3V* Ordering Provider: Cj Gayle DO Subtext Other XR ankle RT min 3V* Date of Service: 01/06/22 Subtext Other XR ankle RT min 3V* XR/XR ankle RT min 3V*: Displaced fracture of lateral malleolus of right Subtext Other XR ankle RT min 3V* fibula, sub Nort DNS:Net Other XR ankle RT min 3V* 3views Rightankle [place] DNS:Net Other XR ankle RT min 3V* COMPARISON:11/22/21 Subtext Other XR ankle RT min 3V* HISTORY: Status post ORIF RIGHT lateral malleolus fracture Subtext Other XR ankle RT min 3V* No hardware failure. Adequate bony alignment. Continued healing of distal fibular fracture. Subtext Other XR ankle RT min 3V* XR/XR ankle RT min 3V* Subtext Other XR ankle RT min 3V* IMPRESSION: Healing fracture. No hardware failure. Subtext Other XR ankle RT min 3V* Impression dictated by: Geovanny Magallanes M.D.01/06/2022 3:54 PM Subtext Other XR ankle RT min 3V* Dictation Location: [place] [address] Subtext Other XR ankle RT min 3V* Transcribed By: WENDY 01/06/22 [facility] Subtext Other XR ankle RT min 3V* Dictated By: Geovanny Magallanes DO 01/06/22 [facility] Subtext Other XR ankle RT min 3V* Signed By: Subtext Other XR ankle RT min 3V* 01/06/22 1554 No rth DNS:Net Other Progress Noteson 12-04-2021 Stock Analyst Authentication Interface Message Text Normal The [employer] Stock Analyst Authentication Interface Message Text ----- Saturday, December 04, 2021 at 11:22:04 AM ----- ----- Provider: [id number] Brandy Bautistaenist -- Clinic: [place] ----- [facility], Pt is ready for tx. Pt presented with caries Radiograph taken today: none Discussed the medical necessity of the problem with the pt. Instructions given to pt. Caregiver understood the situation and is okay with medications for today. Pt will come back should things get worse. Guardianship: PARENTS - Baldomero and Mila (Marlin) Luca [address] [place] [address] / Email: [email or web address] Communicated with caregiver that the pt was placed on the OR list and we will call with appt. Limited exam completed by Dr. Cohen [place]. OR ----- Signed on Saturday, December 04, 2021 at 11:51:43 AM ----- ----- Provider: [id number] Tucker Myers DDS -- Clinic: [place] ----- Normal [employer] XR ankle RT min 3V*on 2021 XR ankle RT min 3V* [facility] [place] [address] XRay Report Signed Patient: Delano Segovia MR#: [id number] : 1970 Acct:[id number] Age/Sex: 51 / M ADM Date: 11/22/21 Loc: [facility] Room: Type: [facility] Attending Dr: Cj Gayle DO Copies [...] Guzman Jr., D.O.11/22/2021 2:39 PM Dictation Location: [facility] Transcribed By: WENDY 11/22/21 1439 Dictated By: Panda De Guzman Jr, DO 11/22/21 1438 Signed By: 11/22/21 1439 Normal [facility] XR ankle RT min 3V*on 2021 XR ankle RT min 3V* [facility] [place] [address] [place] [address] XRay Report Signed Patient: Delano Segovia MR#: [id number] : 1970 Acct:[id number] Age/Sex: 51 / M ADM Date: 10/16/21 Loc: [facility] Room: Type: [facility] Attending Dr: Cj Gayle DO Copies [...] Guzman Jr., D.O.10/16/2021 1:10 PM Dictation Location: [facility]--11 Transcribed By: WENDY 10/16/21 1310 Dictated By: Panda De Guzman Jr, DO 10/16/21 1307 Signed By: 10/16/21 1310 Normal [facility] XR ankle RT min 3V* [facility] [email or web address] Other XR ankle RT min 3V* [facility] DNS:Net Other XR ankle RT min 3V* [address] [place] [address] DNS:Net Other XR ankle RT min 3V* [place] [address] Subtext Other XR ankle RT min 3V* XRay Report Nort DNS:Net Other XR ankle RT min 3V* Signed Subtext Other XR ankle RT min 3V* Patient: Delano Segovia MR#: [id number] Subtext Other XR ankle RT min 3V* : 1970 Acct:[id number] Subtext Other XR ankle RT min 3V* Age/Sex: 51 / M ADM Date: 10/16/21 Subtext Other XR ankle RT min 3V* Loc: [facility] Room: Type: [facility] Subtext Other XR ankle RT min 3V* Attending Dr: Cj Gayle DO Subtext Other XR ankle RT min 3V* Copies to: Cj Gayle DO Subtext Other XR ankle RT min 3V* Ordering Provider: Cj Gayle DO Subtext Other XR ankle RT min 3V* Date of Service: 10/16/21 Subtext Other XR ankle RT min 3V* XR/XR ankle RT min 3V*: Displaced fracture of lateral malleolus of right Subtext Other XR ankle RT min 3V* fibula, sub Nort [employer] Other XR ankle RT min 3V* RIGHT ANKLE - 3 views Subtext Other XR ankle RT min 3V* CLINICAL HISTORY: ORIF right lateral malleolus fracture. Follow up Subtext Other XR ankle RT min 3V* COMPARISON: Intraoperative study 09/24/2021 Subtext Other XR ankle RT min 3V* FINDINGS: Subtext Other XR ankle RT min 3V* syndesmotic screw without evidence of hardware complication. Fracture line is still evident Subtext Other XR ankle RT min 3V* suggestive of incomplete healing. Medial malleolar fracture is unchanged.. Soft tissue swelling. Subtext Other XR ankle RT min 3V* Plantar spurring. Subtext Other XR ankle RT min 3V* XR/XR ankle RT min 3V* Subtext Other XR ankle RT min 3V* IMPRESSION: [employer] Other XR ankle RT min 3V* NO EVIDENCE OF HARDWARE COMPLICATION. Subtext Other XR ankle RT min 3V* Impression dictated by: Panda De Guzman Jr., DCarolOCarol10/16/2021 1:10 PM Subtext Other XR ankle RT min 3V* Dictation Location: [place] [address] Subtext Other XR ankle RT min 3V* Transcribed By: WENDY 10/16/21 1310 Subtext Other XR ankle RT min 3V* Dictated By: Panda De Guzman Jr, DO 10/16/21 1307 Subtext Other XR ankle RT min 3V* Signed By: Subtext Other XR ankle RT min 3V* 10/16/21 1310 No rth DNS:Net Other ECG 12 lead ECGon 09-24-2021 ECG 12 lead ECG [facility] Main [place] [id number] Electrocardiograph Report Signed Patient: Delano Segovia MR#: [id number] : 1970 Acct:[id number] Age/Sex: 51 / M ADM Date: 09/24/21 Loc: [place] Room: Type: [facility] Attending Dr: Cj Gayle DO Ordering [...] By Zafar Spicer DO 09/24 1909 Normal [facility] XR ankle RT min 3V*on 2021 XR ankle RT min 3V* [facility] Main [place] [id number] XRay Report Signed Patient: Delano Segovia MR#: [id number] : 1970 Acct:[id number] Age/Sex: 51 / M ADM Date: 09/24/21 Loc: [place] Room: Type: [facility] Attending Dr: Cj Gayle DO Copies [...] Guzman Jr., D.O.09/24/2021 4:10 PM Dictation Location: [place] [address] Transcribed By: [facility] 09/24/21 1610 Dictated By: Panda De Guzman Jr, DO 09/24/21 1609 Signed By: 09/24/21 1610 Normal [facility] COVID-19 FRon 09-23-2021 SARS-CoV-2 (COVID-19) RNA GARY+probe Ql (Unsp spec) Negative Normal Negative [facility] Comment on above: Order Comment: Comme nt OR 09/24/21 Healthcare Worker?: N Result Comment: Testing for SARS-CoV-2 by RT-PCR This test was developed and its performance characteristics determined by [employer] and validated at the [facility]. This test has not been FDA [...] is terminated or revoked sooner. PERFORMED BY: [place] [address] PATHOLOGIST DISPENSING OPTICIAN CHRISTINE FERNÁNDEZ M.D. Performed By: #### C OVID [facility] [place] #### [address] COVID-19 Positive/NegativeOr dered By: Cj Gayle on 09-23-2021 SARS-CoV-2 (COVID-19) N gene GARY+probe Ql (Resp) Negative Negative [facility] Comment on above: Testing for SARS-CoV -2 by RT-PCR This test was developed and its performance characteristics determined by [employer] ([employer]) and validated at the [facility]. This test has not been FDA [...] BASO # 0.0 103/ul Normal 0.0-0.1 [facility] Comment on above: Performed By: #### C BC ####[facility] [address] [place], [place] [address]Dr. Yilan Mayo Basophils/100 WBC (Bld) 0.2 % Normal 0.2-2.0 [facility] Comment on above: Performed By: #### C BC ####[facility] [address] [place], [place] [address]Dr. Yilan Mayo EO # 0.1 103/ul Normal 0.0-0.7 [facility] Comment on above: Performed By: #### C BC ####[facility] [address] [place], [place] [address]Dr. Yilan Mayo Eosinophils/100 WBC (Bld) 1.2 % Normal 0.9-7.0 [facility] Comment on above: Performed By: #### C BC ####[facility] [address] [place] [address]Dr. Guille Mayo Erythrocyte distribution width (RBC) [Ratio] 12.2 % Normal 11.0-15.0 [facility] Comment on above: Performed By: #### C BC ####[facility] [address] [place] [address]Dr. Guille Mayo Hematocrit (Bld) [Volume fraction] 38.0 % Critically low 42.0-54.0 [facility] Comment on above: Performed By: #### C BC ####[facility] [address] [place], [place] [address]Dr. Guille Mayo Hemoglobin (Bld) [Mass/Vol] 12.8 g/dL Critically low 14.0-18.0 [facility] Comment on above: Performed By: #### C BC ####[facility] [address] [place], [place] [address]Dr. Guille Gael IG # 0.03 10e3/ul Normal 0.00-0.03 [facility] Comment on above: Performed By: #### C BC ####[facility] [address] [place], [place] [address]Dr. Guille Mayo IG % 0.4 % Normal 0.0-0.5 [facility] Comment on above: Performed By: #### C BC ####[facility] [address] [place], [place] [address]Dr. Guille Mayo LYMPH # 0.9 103/ul Critically low 1.2-3.8 [facility] Comment on above: Performed By: #### C BC ####[facility] [address] [place], [place] [address]Dr. Guille Mayo Lymphocytes/100 WBC (Bld) 10.7 % Critically low 20.5-60.0 [facility] Comment on above: Performed By: #### C BC ####[facility] [address] [place], [place] [address]Dr. Guille Gael MANUAL DIFF REQ NO Normal [facility] Comment on above: Performed By: #### C BC ####[facility] [address] [place] [id number]. Guille Mayo MCH (RBC) [Entitic mass] 32.2 pg Normal 25.9-34.0 [facility] Comment on above: Performed By: #### C BC ####[facility] [address] [place], [place] [address]Dr. Guille Mayo MCHC (RBC) [Mass/Vol] 33.7 g/dL Normal 29.9-35.2 [facility] Comment on above: Performed By: #### C BC ####[facility] [address] [place], [place] [address]Dr. Guille Mayo MCV (RBC) [Entitic vol] 95.7 fL Critically high 80.0-94.0 [facility] Comment on above: Performed By: #### C BC ####[facility] [address] [place], [place] [address]Dr. Guille Gael MONO # 0.7 103/ul Normal 0.3-0.8 [facility] Comment on above: Performed By: #### C BC ####[facility] [address] [place], [place] [address]Dr. Guille Gael Monocytes/100 WBC (Bld) 9.0 % Normal 1.7-12.0 [facility] Comment on above: Performed By: #### C BC ####[facility] [address] [place], [place] [address]Dr. Guille Mayo NEUT # 6.4 103/ul Normal 1.4-6.5 [facility] Comment on above: Performed By: #### C BC ####[facility] [address] [place], [place] [address]Dr. Guille Gael Neutrophils/100 WBC (Bld) 78.5 % Critically high 43.0-75.0 [facility] Comment on above: Performed By: #### C BC ####[facility] [address] [place], [place] [address]Dr. Guille Mayo Platelet mean volume (Bld) [Entitic vol] 9.9 fL Normal 9.5-13.5 [facility] Comment on above: Performed By: #### C BC ####[facility] [address] [place], [place] [address]Du. Guille Mayo PLT 152 103/ul Normal 150-450 [facility] Comment on above: Performed By: #### C BC ####[facility] [address] [place], [place] [address]Jz. Guille Mayo RBC 3.97 106/ul Critically low 4.70-6.10 [facility] Comment on above: Performed By: #### C BC ####[facility] [address] [place], [place] [address]Tk. Guille Mayo WBC 8.1 103/ul Normal 4.0-11.0 [facility] Comment on above: Performed By: #### C BC ####[facility] [address] [place], [place] [address]Ty. Guille Mayo CT HEAD WO CONon 09-18-2021 [...] SANDY DÍAZ Date: 2021-09-18 15:44 Normal [facility] Covid-19 PCR ([facility])on 08-24 SARS-CoV-2 (COVID-19) RNA GARY+probe Ql (Unsp spec) Not detected Normal NOT DETECTED [facility] Comment on above: Result Comment: When diagnostic [...] for this test is supported by the [place] of Health and Human Service's declaration that [...] longer be used). Performed By: #### [facility] ####[facility] [address] [place], [place] [address]Dr. Guille Mayo PROF CHEM 8 (BAS METB)on Anion gap [Moles/Vol] 12.4 mmol/L Normal [facility] Comment on above: Performed By: #### B MP ####[facility] [address] [place], [place] [address]Dr. Guille Mayo Calcium [Mass/Vol] 8.7 mg/dL Normal 8.5-10.1 [facility] Comment on above: Performed By: #### B MP ####[facility] [address] [place], [place] [address]Dr. Guille Mayo Chloride [Moles/Vol] 107 mmol/L Normal 98-107 [facility] Comment on above: Performed By: #### B MP ####[facility] [address] [place], [place] [address]Dr. Guille Mayo CO2 [Moles/Vol] 28.0 mmol/L Normal 21.0-32.[address] [facility] Comment on above: Performed By: #### B MP ####[facility] [address] [place], [place] [address]Dr. Guille Mayo Creatinine [Mass/Vol] 1.45 mg/dL Critically high 0.70-1.30 [facility] Comment on above: Performed By: #### B MP ####[facility] [address] [place], [place] [address]By. Guille Mayo EGFR-AF KENYAN >60 Normal >=60 [facility] Comment on above: Performed By: #### B MP ####[facility] [address] [place] [id number]. Guille Mayo EGFR-NON AF KENYAN 51 mL/min/1.73m2 Critically low >=60 [facility] Comment on above: Performed By: #### B MP ####[facility] [address] [place] [address]Dr. Guille Mayo Glucose [Mass/Vol] 87 mg/dL Normal 74-106 [facility] Comment on above: Performed By: #### B MP ####[facility] [address] [place] [address]Dr. Guille Mayo Potassium [Moles/Vol] 4.4 mmol/L Normal 3.5-5.1 [facility] Comment on above: Performed By: #### B MP ####[facility] [address] [place], [place] [address]Dr. Guille Mayo Sodium [Moles/Vol] 143 mmol/L Normal 136-145 [facility] Comment on above: Performed By: #### B MP ####[facility] [address] [place] [id number]. Guille Mayo Urea nitrogen [Mass/Vol] 24.0 mg/dL Critically high 7.0-18.0 [facility] Comment on above: Performed By: #### B MP ####[facility] [address] [place] [address]Dr. Guille Mayo Urea nitrogen/Creatinine [Mass ratio] 16.6 mg/mg Normal [facility] Comment on above: Performed By: #### B MP ####[facility] [address] [place], [place] [address]Dr. Guille Mayo XR CHEST 1 Von 09-18-2021 [...] by: SANDY DÍAZ Date: 2021-09-18 15:36 Normal [facility] CT CHEST WO CONon 08-02-2021 CT [...] by: NORMA ROSS Date: 2021-08-02 08:52 Normal [facility] XR DEXA BONE DENSITYon 07-31 XR DEXA BONE DENSITY EXAMINATION: XR DEX A BONE DENSITY, 07/31/2021 9:49 AM EDT HISTORY: Osteoporosis COMPARISON: 2019, 2017, 2016 TECHNIQUE: Dual-energy X-ray absorptiometry (DEXA) bone density [...] by: NORMA ROSS Date: 2021-07-31 16:14 Normal [facility] Anesthesia Attestationon Stock Analyst Authentication Interface Message Text Anesthesia Attestation ATTESTATION OF INFORMED CONSENT FOR ANESTHESIA Anesthesia options were discussed with the patient and/or legal novelties sales representative. The risks, benefits and alternatives were reviewed. Questions regarding anesthesia were answered. Patient and/or legal novelties sales representative knows such anesthetics and procedures may be performed by Resident physicians, Certified Anesthesiologist Assistants, or Certified Nurse Anesthetists under the supervision of a physician. The patient /or the patient's legal novelties sales representative agree with the plan for anesthesia. Normal [facility] Anesthesia Postprocedure Zo troy 01-25-2021 Stock Analyst Authentication Interface Message Text Anesthesia Postoperative Assessment: [...] ANESTHESIA COMPLICATIONS: No complications documented. Normal [facility] Anesthesia Transfer Of Careo n 01-25-2021 Stock Analyst Authentication Interface Message Text Patient taken to [...] Simi Edwards DDS Anesthesiologist: Jero Peralta MD Manager Medicaid: Anson Schwartz MD DENTAL RESTORATIONS (Bilateral ) [...] was received. Anson Schwartz MD Normal [facility] Blood Attestationon 01-26-20 Stock Analyst Authentication Interface Message Text Blood Attestation ATTESTATION OF INFORMED CONSENT FOR BLOOD The transfusion of blood and/or blood components were discussed with the patient and/or legal novelties sales representative. The risks, benefits and alternatives were reviewed. Questions regarding blood transfusions were answered. The patient /or the patient's legal novelties sales representative agree with the plan for transfusion of blood and/or blood components. 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 Procedures: Full mouth X-ray 27277 Exam 96888 Cleaning 53873 Druze 94541 Fluoride 27776 Excisional biopsy 43108 No data filed Surgeon(s): Surgeon(s): Simi Edwards DDS Staff: Jewelry Internship Nurse: Deborah Chapman RN; Crystal Anderson RN Youth Nutritional Monitor: Carolyn López DDS Anesthesia: General Anesthesiologist: Jero Peralta MD Manager Medicaid: Anson Schwartz MD Specimen(s): ID Type Source Tests Collected by Time Destination 1 : Traumatic fibroma right lower cheeak Tissue Mouth SPECIMEN FOR SURGICAL PATH Simi Edwards DDS 01/25/2021 1146 Estimated Blood Loss: less than 5 cc Lines/Drains: Peripheral IV Access: 01/25/21 0954 22 gauge Right Hand (Active) Site Assessment WNL 12/03/21 0954 Temporarily Retained Foreign Object: No Findings: [...] López DDS 01/25/2021 12:11 PM Normal [facility] OP Noteon 01-25-2021 Stock Analyst Authentication Interface Message Text Surgical Case Number Data Unavailable Operating Room Data Unavailable Preoperative Diagnosis(es): Dental caries [422892] Autism spectrum disorder F84.0 Moderate intellectual disability F79 Seizure disorder G40.89 Postoperative Diagnosis(es): Autism spectrum disorder F84.0 Moderate intellectual disability F79 Seizure disorder G40.89 Dental caries [241875] 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 llulrhn-iuxzkhxgry-l cellular pertussis (BOOSTRIX) 5-2.5-18.5 LF-MCG/0.5 injection Inject 0.5 mL into the muscle. Dictated by: Carolyn López DDS: Simi Joynre DDS was present for the critical portions of the procedure. 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 * qibbjgo-nnazyxikvh-i cellular pertussis (BOOSTRIX) 5-2.5-18.5 LF-MCG/0.5 injection Inject 0.5 mL into the muscle. Dictated by: Carolyn López DDS: Simi Joyner DDS was present for the critical portions of the procedure. Carolyn López DDS 01/25/2021 12:18 PM Normal [facility] Anesthesia Preprocedure Moshe pandya 01-24-2021 Stock Analyst Authentication Interface Message Text ASA: 3 No [...] the history and physical examination. Normal [facility] Telephone Encounteron 2020 Stock Analyst Authentication Interface Message Text Informed Consent for dental surgery AND Anesthesia consent obtained and scanned into nprogress. Scheduled for surgery 01/25/2021. Normal [facility] AUD - Progress Noteson 04-20 Protein mass conc Pt. referred for hearing evaluation by Dr. Espinoza, accompanied by Caitie, a direct care provider from [facility]. Pt. returns today after having ears cleaned out. Pt. denied ear pain at the time of testing. Completed evaluation, resorting to play audiometry for pure tone testing. See AUD-Assessments for Report/Results. DX CODES: H90.3 sensorineural hearing loss bilateral Normal [place] Coding Summary.on 04-20-2018 Coding Summary. CODING DATE: 04/20/2018 FINAL [facility] STATUS: PAYOR: Medicare APC DESCRIPTION [...] CphT Date Saved: 04/20/2018 09:11 pm Normal [place] AUD - Progress Noteson 03-31 Protein mass conc pt. referred for hearing evaluation by Muna Espinoza DO, accompanied by Darius direct care provider from [facility]. Otoscopy revealed cerumen in the right ear canal clocking view of the tympanic membrane, left ear with moderate cerumen but tympanic membrance visible. Discussed with Saurabh, did not complete evaluation today. He will return after bilateral ear cleaning. Called and spoke to [facility]/Nursing/Ainsley and advised her of the above. Normal [place] Mohit 09-09-2016 Alanine aminotransferase (ALT) 35 U/L Normal <40 [place] Soni 09-09-2016 Aspartate aminotransferase (AST) 26 U/L Normal 15-50 [place] Albuminon 09-09-2016 Albumin 4.5 g/dL Normal 3.4-5.2 [place] BUNon 09-09-2016 Urea nitrogen 21 mg/dL High 5-18 [place] Creatinineon 09-09-2016 Creatinine 1.21 mg/dL High 0.50-1.20 [place] Electrolyteson 09-09-2016 Chloride 107 mmol/L High 95-106 [place] CO2 24 mmol/L Normal 24-35 [place] Potassium molar conc 4.4 mmol/L Normal 3.7-5.[facility]/L Normal 135-145 [place] Vital Signs Date Time Vital Sign Value Performing Clinician Facility 08-01-2024 09:54-0400 Body height 172.7 cm Glenn Flores DPM Work Phone: [facility] 08-01-2024 09:54-0400 Body mass index (BMI) [Ratio] 28.13 kg/m2 Glenn Flores DPM Work Phone: [facility] 08-01-2024 09:54-0400 Body weight 83.92 kg Glenn Flores DPM Work Phone: [facility] 08-01-2024 09:54-0400 Respiratory rate 18 /min Glenn Flores DPM Work Phone: [facility] 07-11-2024 09:55-0400 Body height 172.7 cm Glenn Flores DPM Work Phone: [facility] 07-11-2024 09:55-0400 Body mass index (BMI) [Ratio] 28.13 kg/m2 Glenn Brown DPM Work Phone: [facility] 07-11-2024 09:55-0400 Body weight 83.92 kg Glenn Brown DPM Work Phone: [facility] 07-11-2024 09:55-0400 Respiratory rate 16 /min Glenn Brown DPM Work Phone: [facility] 06-17-2024 10:03-0400 Body height 172.7 cm Glenn Brown DPM Work Phone: [facility] 06-17-2024 10:03-0400 Body mass index (BMI) [Ratio] 28.13 kg/m2 Glenn Brown DPM Work Phone: [facility] 06-17-2024 10:03-0400 Body weight 83.92 kg Glenn Brown DPM Work Phone: [facility] 06-17-2024 10:03-0400 Respiratory rate 16 /min Glenn Brown DPM Work Phone: [facility] 05-27-2024 09:46-0400 Body height 172.7 cm Glenn Brown DPM Work Phone: [facility] 05-27-2024 09:46-0400 Body mass index (BMI) [Ratio] 28.13 kg/m2 Glenn Brown DPM Work Phone: [facility] 05-27-2024 09:46-0400 Body weight 83.92 kg Glenn Brown DPM Work Phone: [facility] 05-27-2024 09:46-0400 Respiratory rate 16 /min Glenn Brown DPM Work Phone: [facility] 05-18-2024 16:06-0400 Body height 172.7 cm Glenn Brown DPM Work Phone: [facility] 05-18-2024 16:06-0400 Body mass index (BMI) [Ratio] 28.13 kg/m2 Glenn Flores DPM Work Phone: [facility] 05-18-2024 16:06-0400 Body weight 83.92 kg Glenn Flores DPM Work Phone: [facility] 05-18-2024 16:06-0400 Diastolic blood pressure 90 mm[Hg] Glenn Flores DPM Work Phone: [facility] 05-18-2024 16:06-0400 Heart rate 69 /min Glenn Flores DPM Work Phone: [facility] 05-18-2024 16:06-0400 Systolic blood pressure 139 mm[Hg] Glenn Flores DPM Work Phone: [facility] 04-15-2024 09:29-0500 Body height 172.7 cm Glenn Flores DPM Work Phone: [facility] 04-15-2024 09:29-0500 Body mass index (BMI) [Ratio] 28.13 kg/m2 Glenn Flores DPM Work Phone: [facility] 04-15-2024 09:29-0500 Body weight 83.92 kg Glenn Flores DPM Work Phone: [facility] 04-15-2024 09:29-0500 Diastolic blood pressure 82 mm[Hg] Glenn Flores DPM Work Phone: [facility] 04-15-2024 09:29-0500 Heart rate 71 /min Glenn Flores DPM Work Phone: [facility] 04-15-2024 09:29-0500 Systolic blood pressure 138 mm[Hg] Glenn Brown DPM Work Phone: [facility] 02-09-2024 10:52-0500 Body height 172.7 cm Ana Maria Hsu NP Work Phone: [facility] 02-09-2024 10:52-0500 Body mass index (BMI) [Ratio] 28.13 kg/m2 Ana Maria Ramirezmor DEPUTY CLERK Work Phone: [facility] 02-09-2024 10:52-0500 Body weight 83.92 kg Ana Maria Ramirezmor DEPUTY CLERK Work Phone: [facility] 02-09-2024 10:52-0500 Diastolic blood pressure 90 mm[Hg] Ana Maria Ramirezmor DEPUTY CLERK Work Phone: [facility] 02-09-2024 10:52-0500 Heart rate 69 /min Ana Maria Ramirezmor DEPUTY CLERK Work Phone: [facility] 02-09-2024 10:52-0500 Systolic blood pressure 139 mm[Hg] Ana Maria Ramirezmor DEPUTY CLERK Work Phone: [facility] 01-06-2022 12:30-0500 Body height 177.8 cm Cj Nalini Other [employer] Other 01-06-2022 12:30-0500 Body mass index (BMI) [Ratio] 27.69 kg/m2 Cj Nalini Other [employer] Other 01-06-2022 12:30-0500 Body weight 87.54 kg Cj Gayle Other [employer] Other 09-24-2021 17:03-0400 Diastolic blood pressure 100 mm[Hg] DO Go Espinoza Work Phone: [facility] 09-24-2021 17:03-0400 Heart rate 79 /min DO Go Espinoza Work Phone: [facility] 09-24-2021 17:03-0400 Respiratory rate 16 /min DO Go Espinoza Work Phone: [facility] 09-24-2021 17:03-0400 SaO2% (BldA) [Mass fraction] 94 % DO Go Espinoza Work Phone: [facility] 09-24-2021 17:03-0400 Systolic blood pressure 156 mm[Hg] DO Go Escaleraring Work Phone: [facility] 09-24-2021 15:05-0400 Body temperature 97.1 [degF] DO Go Espinoza Work Phone: [facility] 09-24-2021 15:05-0400 Inhaled oxygen flow rate 6 L/min DO Go Escaleraring Work Phone: [facility] 09-24-2021 14:22-0400 Body height 172.72 cm DO Go Espinoza Work Phone: [facility] 09-24-2021 14:22-0400 Body mass index (BMI) [Ratio] 29.6 kg/m2 DO Go Escaleraring Work Phone: [facility] 09-24-2021 14:22-0400 Body weight 88.4 kg DO Go Espinoza Work Phone: [facility] 08-14-2021 10:45-0400 Body height 177.8 cm Nallely Parada Other [employer] Other 08-14-2021 10:45-0400 Body mass index (BMI) [Ratio] 27.55 kg/m2 Nallely Parada Other [facility] Other 08-14-2021 10:45-0400 Body temperature 97 [degF] Nallely Parada Other [facility] Other 08-14-2021 10:45-0400 Body weight 87.09 kg Nallely Parada Other [facility] Other 08-14-2021 10:45-0400 Diastolic blood pressure 84 mm[Hg] Nallely Parada Other [facility] Other 08-14-2021 10:45-0400 Respiratory rate 20 /min Nallely Parada Other [facility] Other 08-14-2021 10:45-0400 SaO2% (BldA) [Mass fraction] 98 % Nallely Parada Other [facility] Other 08-14-2021 10:45-0400 Systolic blood pressure 132 mm[Hg] Nallely Parada Other Subtext Other Encounters Encounter Date Encounter Type Care Provider Facility Start: 08-01-2024 End: 08-01-2024 Bamboo flowsheet Glenn Flores DPM Work Phone: [facility] Start: 08-01-2024 End: 08-01-2024 Bamboo flowsheet Glenn Flores DPM Work Phone: [facility] Start: 08-01-2024 End: 08-01-2024 Office outpatient visit 25 minutes Glenn Radhames Flores DPM Work Phone: [facility] Comment on above: Lisfranc dislocation , left, initial encounter (Primary Dx) Start: 08-01-2024 End: 08-01-2024 ambulatory GLENN FLORES Not Available Start: 07-11-2024 End: 07-11-2024 Bamboo flowsheet Glenn [...] Start: 06-17-2024 End: 06-17-2024 Bamboo flowsheet Glenn Flores DPM Work Phone: [facility] Start: 06-17-2024 End: 06-17-2024 Bamboo flowsheet Glenn Flores DPM Work Phone: [facility] Start: 06-17-2024 End: 06-17-2024 ambulatory GLENN FLORES Not Available Start: 06-17-2024 End: 06-17-2024 Office outpatient visit 25 minutes Glenn Flores DPM Work Phone: [facility] Comment on above: Lisfranc dislocation , left, initial encounter (Primary Dx) Start: 05-30-2024 End: 05-30-2024 ambulatory SUMEET SWANSON Facility:[facility] Start: 05-27-2024 End: 05-27-2024 Bamboo flowsheet Glenn Flores DPM Work Phone: [facility] Start: 05-27-2024 End: 05-27-2024 Bamboo flowsheet Glenn Flores DPM Work Phone: [...] insufficiency Start: 05-18-2024 End: 05-18-2024 ambulatory GLENN A BROWN Not Available Start: 05-18-2024 End: 05-18-2024 Bamboo flowsheet Glenn A Brown DPM Work Phone: [facility] Start: 05-18-2024 End: 05-18-2024 Bamboo flowsheet Glenn A Brown DPM Work Phone: [facility] Start: 05-16-2024 End: 05-16-2024 ambulatory GLENN A BROWN Not Available Start: 04-29-2024 End: 04-29-2024 ambulatory GLENN A BROWN Not Available Start: 04-15-2024 End: 04-15-2024 Bamboo flowsheet Glenn A Brown DPM Work Phone: [facility] Start: 04-15-2024 End: 04-15-2024 Bamboo flowsheet Glenn A Brown DPM Work Phone: [facility] Start: 04-15-2024 End: 04-15-2024 Office outpatient visit 15 minutes Glenn Radhames Brown DPM Work Phone: [facility] Comment on above: Onychocryptosis (Meredith manuel Dx); Abscess of toe, right; Toe pain, right Start: 04-15-2024 End: 04-15-2024 ambulatory GLENN A BROWN Not Available Start: 02-09-2024 End: 02-09-2024 Bamboo flowsheet Ana Maria Hsu DEPUTY CLERK Work Phone: [facility] [address] Start: 02-09-2024 End: 02-09-2024 Bamboo flowsheet Ana Maria Hsu DEPUTY CLERK Work Phone: [facility] [address] Start: 02-09-2024 End: 02-09-2024 Office outpatient visit 25 minutes Ana Maria Hsu DEPUTY CLERK Work Phone: [facility] [address] Comment on above: Seizure disorder (CM S/HCC) (Primary Dx); Frequent falls; Mental disability (CMS/HCC); Tuberous sclerosis (CMS/HCC) Start: 02-09-2024 End: 02-09-2024 ambulatory ANA MARIA HSU Not Available Start: 01-16-2024 End: 01-16-2024 Letter encounter [facility] Start: 11-10-2023 End: 11-10-2023 ambulatory SUMEET SWANSON Facility:[facility] Start: 08-19-2023 End: 08-19-2023 Lab Drop off GO ESPINOZA [facility] Start: 08-19-2023 End: 08-19-2023 ambulatory GO ESPINOZA Facility:[facility] Start: 08-06-2023 End: 08-06-2023 ambulatory ANA MARIA HSU Not Available Start: 02-25-2023 End: 02-25-2023 Lab Drop off GO ESPINOZA [facility] Start: 02-25-2023 End: 02-25-2023 ambulatory GO ESPINOZA Facility:[facility] Start: 11-12-2022 End: 11-12-2022 ambulatory GO ESPINOZA Facility:[facility] Start: 11-12-2022 End: 11-12-2022 Lab Drop off GO ESPINOZA [facility] Start: 05-27-2022 End: 05-28-[address] GO ESPINOZA Facility: Start: 04-24-2022 Letter encounter Vadim patton Start: 04-11-2022 End: 04-12-[address] GO ESPINOZA Facility:[facility] Start: 04-10-2022 End: 04-11-[address] GO ESPINOZA Facility:[facility] Start: 04-09-2022 Telephone encounter Nallely Parada [facility] Start: 04-09-2022 End: 04-09-2022 ambulatory Go Espinoza Facility:[facility] Start: 03-12-2022 End: 03-12-2022 ambulatory Go Espinoza Facility:[facility] Start: 03-12-2022 End: 03-12-2022 ambulatory DO Go Espinoza Work Phone: [facility] Work Phone: Start: 03-12-2022 End: 03-12-2022 Patient encounter procedure DO Go Espinoza Work Phone: [facility]-Pet Scan Work Phone: Start: 03-11-2022 End: 03-12-[address] GO ESPINOZA Facility: Start: 02-06-2022 End: 02-06-2022 ambulatory Nallely Parada Other Subtext Other Start: 02-06-2022 Telephone encounter Nallely Parada [facility] Start: 01-07-2022 End: 01-07-2022 ambulatory Cj Gayle Other Subtext Other Start: 01-07-2022 Telephone encounter Cj GOMES [facility] Start: 01-06-2022 Postop follow up vis it related to original px Cj REDMOND [facility] Start: 01-06-2022 End: 01-06-2022 ambulatory Cj Gayle Facility:[facility] Start: 01-06-2022 End: 01-06-2022 ambulatory DO Go Espinoza Work Phone: [facility] Work Phone: Start: 01-06-2022 End: 01-06-2022 Patient encounter procedure DO Go Espinoza Work Phone: [facility]-XRay [facility] Start: 12-04-2021 End: 12-06-2021 ambulatory UNKNOWN PROVIDER Facility:[facility] Start: 12-04-2021 End: 12-06-2021 Patient encounter procedure Ly Red[address] RD Work Phone: [facility] Start: 11-22-2021 Postop follow up vis it related to original px Cj Gayle [facility] Start: 11-22-2021 End: 11-22-2021 ambulatory Cj Radhames Gayle [facility] [email or web address] Other Start: 11-22-2021 End: 11-22-2021 Patient encounter procedure DO Go Espinoza Work Phone: [facility] Start: 10-16-2021 Postop follow up vis it related to original px Cj Gayle [facility] Start: 10-16-2021 End: 10-16-2021 ambulatory Cj A Nalini [facility] [email or web address] Other Start: 10-16-2021 End: 10-16-2021 Patient encounter procedure DO Go Espinoza Work Phone: [facility] Start: 09-24-2021 End: 09-24-2021 ambulatory Cj Ricci Nalini Facility:[facility] Start: 09-24-2021 End: 09-24-2021 Admission to same day surgery center DO Go Espinoza Work Phone: [facility] [place] Start: 09-23-2021 End: 09-23-2021 ambulatory Cj Gayle Facility:[facility] Start: 09-23-2021 End: 09-23-2021 Patient encounter procedure DO Go Espinoza Work Phone: [facility]-Pre-Surgical Testing Start: 09-18-2021 End: 09-18-2021 ambulatory TRAN MORALEZ . Facility:[facility] Start: 08-14-2021 End: 08-14-2021 ambulatory Nallely Parada Other [place] DNS:Net Other Start: 08-14-2021 Office outpatient ne w 45 minutes Nallely Parada [facility] Start: 08-01-2021 End: 08-02-[address] GO ESPINOZA Facility:[facility] Start: 07-31-2021 End: 08-01-[address] GO ESPINOZA Facility: Start: 01-25-2021 End: 01-26-2021 ambulatory SIMI MEADOWS Facility[facility] Start: 01-25-2021 ambulatory [facility] Start: 09-09-2016 End: 09-09-2016 Ambulatory Robbi MILAD NICOLA [facility] Procedures Date Procedure Procedure Detail Performing Clinician [...] [facility] Start: 10-10-2025 [facility] Start: 09-21-2024 End: 09-21-2024 Patient encounter procedure 09/21/2024 2:00 PM EDT Office Visit [facility] [address] [place] [phone] Ana Maria Hsu NP [address] [place] [address] [facility] Start: 08-04-2024 End: 08-04-2024 Patient encounter procedure [facility] [address] Start: 08-01-2024 End: 08-01-2024 Patient encounter procedure 08/01/2024 10:00 AM EDT Office Visit [facility] [address] [place] [address] Glenn Flores DPM [address] [address] Lisfranc dislocation, left, initial encounter (Primary Dx) [facility] Comment on above: Lisfranc dislocation , left, initial encounter (Primary Dx) Start: 07-11-2024 End: 07-11-2024 Patient encounter procedure 07/11/2024 9:50 AM EDT Office Visit [facility] [address] [place] [address] Glenn Flores DPM [address] [address] Lisfranc dislocation, left, initial encounter (Primary Dx) [facility] Comment on above: Lisfranc dislocation , left, initial encounter (Primary Dx) Start: 05-27-2024 End: 05-27-2024 Patient encounter procedure 05/27/2024 9:40 AM EDT Office Visit [facility] [address] [place] [address] [phone] Glenn Flores DPM [address] [address] Arrived [facility] Comment on above: Arrived Start: 05-18-2024 End: 05-18-2024 Patient encounter procedure 05/18/2024 4:00 PM EDT Office Visit [facility] [address] [place] [address] Glenn Flores DPDoyle [address] [address] Arrived [facility] Comment on above: Arrived Start: 04-15-2024 End: 04-15-2024 Patient encounter procedure 04/15/2024 9:30 AM EST Office Visit [facility] [address] [place] [address] [phone] Glenn Flores DPDoyle [address] [address] [facility]rived [facility] Comment on above: Arrived Start: 02-09-2024 End: 02-09-2024 Patient encounter procedure 02/09/2024 10:40 AM EST Office Visit [facility] [place] [address] Ana Maria Hsu, DEPUTY CLERK [address] [place], [place] Arrived [facility] [address] Comment on above: Arrived Start: 10-25-2023 COVID-19 Vaccine () COVID-19 Vaccine () [facility] Start: 10-25-2023 Influenza vaccination Influenza Vacc ine (#1) [facility] Start: 11-23-2021 Influenza vaccination Influenza Vacc ine (#1) [facility] Start: 10-16-2021 X-ray of right ankle XR ankle RT min 3V* [facility] Start: 10-16-2021 End: 10-16-2021 Patient encounter procedure Departed Clinical [facility] Start: 09-24-2021 [facility] Work Phone: Start: 09-24-2021 [facility] Work Phone: Start: 08-21-2021 COVID-19 [...] 01-10-2003 Lipid panel [facility] Start: 02-23-1997 Annual wellness visit Annual W ellness Visit ([id number]) [facility] Start: 01-10-1987 Hepatitis A (HAV) Vaccine (optional start 19+ years) Hepatitis A (HAV) Vaccine (optional start 19+ years) [facility] Start: 01-10-1987 Hepatitis B vaccination Hepati tis B (HBV) Vaccine (1 of 3 - 19+ 3-dose series) [facility] Start: 01-10-1986 Hepatitis C screening Hepatitis C An tibody [facility] Start: 01-10-1986 Tetanus + diphtheria + acellular pertussis vaccine (product) [facility] Start: 01-10-1983 HIV screening HIV Test [facility] Start: 1970 Medicare Annual Wellness (AWV) Medicare Annual Wellness (AWV) [facility] Start: 1970 Screening for malign ant neoplasm of colon [facility] Patient referral [facility] Work Phone: Immunizations Immunization Date Immunization Notes Care Provider [facility] 12-10-2022 influenza virus vaccine, unspecified formulation Ana Maria Hsu DEPUTY CLERK Work Phone: [facility] 06-26-2021 Pfizer (12+ yrs) SARS-COV-2 (COVID-19) vaccine, mRNA, spike protein, LNP, pres. free, 30 mcg/0.3mL dose, syeda-sucrose (GJJ=033) Ly Ruy [facility] Work Phone: [facility] 12-19-2020 COVID-19 Vaccine Pfi zer - Documentation Purposes Only Nallely Parada Other Subtext Other 12-19-2020 influenza, injectabl e, quadrivalent, preservative free Ly Ruy [facility] Work Phone: [facility] 12-19-2020 influenza virus vaccine, unspecified formulation Ly Ruy [facility] Work Phone: [facility] 03-27-2020 COVID-19 Vaccine Pfi zer - Documentation Purposes Only Estebanred Parada Other Subtext Other 03-06-2020 COVID-19 Vaccine Pfi zer - Documentation Purposes Only Nallely Parada Other [facility] [email or web address] Other 11-30-2019 influenza, injectabl e, quadrivalent, preservative free Ly Ruy [facility] Work Phone: [facility] 12-17-2018 influenza, injectabl e, quadrivalent, preservative free Ly Ruy [facility] Work Phone: [facility] 12-02-2017 influenza, injectabl e, quadrivalent, preservative free Ly Ruy [facility] Work Phone: [facility] 01-06-2017 influenza, injectabl e, quadrivalent, contains preservative Ly Ruy [facility] Work Phone: [facility] 07-12-2015 tetanus and diphther ia toxoids, adsorbed, preservative free, for adult use (5 Lf of tetanus toxoid and 2 Lf of diphtheria toxoid) Ly Ruy RD Work Phone: [facility] 12-14-2014 influenza, injectabl e, quadrivalent, preservative free Ly Ruy RD Work Phone: [facility] 01-10-2009 novel [id number], preservative-free, injectable Ly Ruy RD Work Phone: [facility] 01-07-2008 influenza virus vaccine, whole virus Ly Ruy RD Work Phone: [facility] 12-08-2006 influenza virus vaccine, whole virus Ly Ruy RD Work Phone: [facility] 06-25-2005 tetanus and diphther ia toxoids, adsorbed, preservative free, for adult use (5 Lf of tetanus toxoid and 2 Lf of diphtheria toxoid) Ly Ruy RD Work Phone: [facility] diphtheria, tetanus toxoids and acellular pertussis vaccine, unspecified formulation Ly Ruy RD Work Phone: [facility] pldytgw-rchpcxiptv-g shabnam lular pertussis (BOOSTRIX) 5-2.5-18.5 LF-MCG/0.5 injection [facility] Payers Date Payer Category Payer Self-pay [id number] 2019 Dental --Stand Alone DENTAL-MEDI CAID [id number] 2019 Medicaid [id number] [id number]. [id number] 1996 Medicare [id number]. 1.13.56.2.7. [id number] 1996 Medicare FFS MEDICARE [id number]. [id number] 1968 Unknown [id number] 2.16.840.1.653468.3.579.2.7 32 1968 Unknown [id number] 2.16.840.1.320428.3.579.2.7 32 1968 Unknown [id number] 2.16.840.1.475091.3.579.2.7 32 1968 Unknown [id number] 2.16.840.1.008669.3.579.2.5 93 1968 Unknown [id number] 2.16.840.1.215550.3.579.2.5 93 1968 Unknown [id number] 2.16.840.1.487722.3.579.2.5 93 1968 Unknown [id number] 2.16.840.1.144499.3.579.2.5 93 1968 Unknown [id number] 2.16.840.1.732201.3.579.2.7 27 1968 Unknown [id number] 2.16.840.1.319995.3.579.2.7 27 1968 Unknown [id number] 2.16.840.1.223540.3.579.2.7 27 1968 Unknown [id number] 2.16.840.1.604986.3.579.2.1 259 1968 Unknown [id number] 2.16.840.1.306293.3.579.2.1 259 1968 Unknown [id number] 2.16.840.1.084055.3.579.2.1 259 1968 Unknown [id number] 2.16.840.1.845341.3.579.2.1 259 1968 Unknown [id number] 2.16.840.1.129454.3.579.2.1 259 1968 Unknown [id number] 2.16.840.1.821777.3.579.2.1 259 1968 Unknown [id number] 2.16.840.1.311934.3.579.2.1 259 1968 Unknown [id number] 2.16.840.1.778154.3.579.2.1 259 1968 Unknown [id number] 2.16.840.1.013975.3.579.2.1 259 1968 Unknown [id number] 2.16.840.1.783066.3.579.2.1 259 1959 Medicaid [id number] 2.16.840.1.620799.19 1959 Medicare [id number] 2.16.840.1.496432.19 Medicare [id number] Unknown [employer] [id number] 2.16.840.1.082149.3.579.2.5 31 Unknown [id number] 2.16.840.1.107845.3.579.2.5 31 Unknown [id number] 2.16.840.1.083097.3.579.2.5 31 Unknown [id number] 2.16.840.1.131483.3.579.2.5 31 Unknown [id number] 2.16.840.1.175834.3.579.2.5 31 Unknown [id number] 2.16.840.1.912036.3.579.2.5 31 Unknown [id number] 2.16.840.1.896694.3.579.2.5 31 Unknown [id number] 2.16.840.1.884309.3.579.2.5 93 Unknown [id number] 2.16.840.1.638839.3.579.2.5 93 Unknown [id number] 2.16.840.1.238196.3.579.2.5 93 Social History Date Type Detail Facility Start: 08-06-2023 End: 07-11-2024 Sex Assigned At [facility] Start: 09-24-2021 End: 02-05-2023 Tobacco smoking status NHIS Never smoked tobacco (finding) [facility] Start: 1970 Sex Assigned At Male [facility] Tobacco smoking status MIIS Tobacco smoking consumption unknown [facility] Start: 1970 Sex Assigned At Not on file [facility] Tobacco smoking status No Smoking Status Entered [facility] Start: 03-01-2019 [facility] (finding) [facility] Start: 02-05-2023 Tobacco use and exposure Smokeless tobacco non-user [facility] Start: 08-06-2023 End: 08-01-2024 Alcoholic beverage intake Lifetime non-drinker (finding) [facility] Start: 08-06-2023 End: 07-11-2024 History of Social function [facility] NEGATED: Highlighted rowStart: NINF History of tobacco use Passive smoker [facility] Medical Equipment Procedure Code Equipment Code Equipment Origin al Text Equipment Identifier Dates ORIF, fracture, ankle CANCELLOUS COARSE 7.5CC FDA Start: 09-24-2021 ORIF, fracture, ankle Orthopaedic bone screw, non-bioabsorbable, non-sterile ()[id number] FDA Start: 09-24-2021 ORIF, fracture, ankle Orthopaedic bone screw, non-bioabsorbable, non-sterile ()[id number] FDA Start: 09-24-2021 ORIF, fracture, ankle Orthopaedic fixation plate, non-bioabsorbable, sterile ()[id number] FDA Start: 09-24-2021 ORIF, fracture, ankle Orthopaedic bone screw, non-bioabsorbable, non-sterile ()[id number] FDA Start: 09-24-2021 ORIF, fracture, ankle Orthopaedic bone screw, non-bioabsorbable, non-sterile ()[id number] FDA Start: 09-24-2021 ORIF, fracture, ankle Orthopaedic bone screw, non-bioabsorbable, non-sterile ()[id number] FDA Start: 09-24-2021 ORIF, fracture, ankle Orthopaedic bone screw, non-bioabsorbable, non-sterile ()[id number] FDA Start: 09-24-2021 ORIF, fracture, ankle CANCELLOUS COARSE 7.5CC FDA Start: 09-24-2021 ORIF, fracture, ankle CANCELLOUS COARSE 7.5CC FDA Start: 09-24-2021 ORIF, fracture, ankle CANCELLOUS COARSE 7.5CC FDA Start: 09-24-2021 ORIF, fracture, ankle CANCELLOUS COARSE 7.5CC FDA Start: 09-24-2021 Goals Date Patient Goal Desired Activity /State Clinical Notes 01-10-2021 to 08-01-2024 Glenn Flores, DP - 08/01/2024 10:00 AM EDTGlenn Flores, DPM - 07/11/2024 9:50 AM EDTGlenn Flores, DPM - 06/17/2024 9:50 AM EDTGlenn Flores, DP - 05/27/2024 9:40 AM EDT Note Date & Type Note Facility 08-01-2024 History of Present illness Narrative Patient: Delano [...] Glenn Flores DPM documented in this encounter [facility] 07-11-2024 History of Present illness Narrative Patient: [...] Glenn Flores DPM documented in this encounter [facility] 06-17-2024 History of Present illness Narrative Patient: [...] Glenn Flores DPM documented in this encounter [facility] 05-30-2024 Note HNO ID: [id number] Author: SUMEET CALI MD Service: ? Author [...] visit. Either the patient or their legal novelties sales representative has been informed of the [...] anxiety, (10-14) moderate anxiety, (15-21) severe anxiety Conway Cognitive Assessment (MoCA) No data to display [...] evening, and 3 tablets at bedtime 0 bjctehb-rzftwjtbs-ticymxc D3 (OYSTER SHELL CALCIUM-VITAMIN D) 500 mg(1,250mg) [...] MG TAB ta (more content not included)... [facility] 05-27-2024 History of Present illness Narrative Patient: Delano Segovia : 1970 PCP: Go Espinoza MD SUBJECTIVE Patient presents today post today's history of some pain with ambulation and swelling to the dorsum of left foot but has poor historian and caregiver and patient is complaining of pain from time to time but has poor historian and is resident at [facility]. He had recent CT scan at [facility] and presents today for follow-up. Allergies: Allergies [...] Glenn Flores DPM documented in this encounter [facility] 05-18-2024 History of Present illness Narrative Patient: [...] Glenn Flores DPM documented in this encounter [facility] 04-15-2024 History of Present illness Narrative Patient: [...] Glenn Flores DPM documented in this encounter [facility] 11-10-2023 Note HNO ID: [id number] Author: SUMEET CALI MD Service: ? Author [...] visit. Either the patient or their legal novelties sales representative has been informed of the [...] request it faxed to them. Fax number: [phone] (direct fax). Risks and benefits of the [...] evening, and 3 tablets at bedtime 0 zyokdoi-avwvycoxs-opsmdpj D3 (OYSTER SHELL CALCIUM-VITAMIN D) 500 mg(1,250mg) [...] daily. cloNIDine 0.1 (more content not included)... [facility] 08-19-2023 Evaluation + Plan note Diagnostic Tests [id number] 08/19/23T3 Free 08/19/23Keppra Lvl 08/19/23Lamotrigine Level 08/19/23 [facility] 02-25-2023 Evaluation + Plan note Diagnostic Tests PendingT3 Free 02/25/23 [facility] 11-12-2022 Evaluation + Plan note Diagnostic Tests PendingPSA Screen, Total 11/12/22 [facility] 01-06-2022 Evaluation note Encounter Date Diagnosis Assessment Notes Dec, Displaced fracture of lateral malleolus of right fibula, subsequent encounter for closed fracture with routine healing (ICD-10 - S82.61XD) Delano is here today for follow-up about 12 weeks s/p right ankle ORIF. He is doing well. He is currently residing at [facility]. There is no complaints overall. Ankle [...] Other specified postprocedural states (ICD-10 - Z98.890) Subtext Other 10-12-2022 History of Present illness Narrative* Simi Edwards DDS - 12/04/2021 11:03 AM EDT ----- Saturday, December 04, 2021 at 11:22:04 AM ----- ----- Provider: [id number] - Cris Graham -- Clinic: [place] ----- [facility], Pt is ready for tx. Pt presented with caries Radiograph taken today: none Discussed the medical necessity of the problem with the pt. Instructions given to pt. Caregiver understood the situation and is okay with medications for today. Pt will come back shouldthings get worse. Guardianship: PARENTS - Nabila (Kerri Segovia [address] [place] [address] / Email: [email or web address] Communicated with caregiver that the pt was placed on the OR list and we will call with appt. Limited exam completed by Dr. Noel STEPHENS. OR ----- Signed on Saturday, December 04, 2021 at 11:51:43 AM ----- ----- Provider: [id number] Tucker Myers DDS -- Clinic: [place] ----- documented in this [id number] Evaluation note* Encounter Date Diagnosis Assessment Notes Treatment Notes Treatment Clinical Notes Oct, Displaced fracture of lateral malleolus of right fibula, subsequent encounter for closed fracture with routine healing (ICD-10 - S82.61XD) Delano is here today for first follow-up 8 weeks s/p right ankle ORIF. He is doing well. He is currently residing at [facility]. There is no complaints overall. His [...] fracture with routine healing (ICD-10 - S82.392D) Subtext Other 08-24-2022 Evaluation note* Encounter Date Diagnosis Assessment Notes Treatment Notes Treatment Clinical Notes Sep, Displaced fracture of lateral malleolus of right fibula, subsequent encounter for closed fracture with routine healing (ICD-10 - S82.61XD) Delano is here today for first follow-up 3 weeks s/p right ankle ORIF. He is doing well. He is currently residing at [facility]. There is no complaints overall. His [...] as documented in the electronic medical record. Subtext Other 08-24-2022 NoteCast material is in place limiting evaluation. Hardware fixation involving the distal fibula withSubtext Other 07-27-2022 NotePROCEDURE: XR TIB_FIB RT 2V [...] Electronically authenticated by: SANDY DÍAZ Date: 2021-09-18 17:14[facility]07-27-2022 NotePROCEDURE: XR ANKLE RT MIN 3 [...] Electronically authenticated by: SANDY DÍAZ Date: 2021-09-18 16:44[facility]07-27-2022 NotePROCEDURE: XR ANKLE LT MIN 3 [...] Electronically authenticated by: SANDY DÍAZ Date: 2021-09-18 15:33[facility]06-22-2022 Evaluation note* Encounter Date Diagnosis Assessment Notes Treatment Notes Treatment Clinical Notes Jul, Pulmonary cavitary lesion (ICD-10 - J98.4) Jul, 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 I have personally seen and evaluated the patient, repeating narayanan portions. There is no significant interval change. Surgery is still indicated. Yes Consent reviewed and signed by patient/family: Yes Operative site verified and marked: site verified but not marked as not anatomically possible Carolyn López DDS 01/25/2021 9:50 AMThe Electronic Payment and Services (EPS) [id number] NotePatient is vaccinated for COVID-19: Pfizer on 03/06/2020 AND 03/27/2020. Patient does not require pre-op COVID testing per current guidelines.The [facility] SystemEvaluation noteNo assessment information availableOhiohealth [facility] Work Phone: Evaluation noteNo InformationNort DNS:Net Other Evaluation note* Diagnosis Seizure disorder (CMS/HCC)- Primary Unspecified epilepsy without mention of intractable epilepsy Frequent falls Mental disability (CMS/HCC) Unspecified mental retardation Tuberous sclerosis (CMS/HCC) Tuberous sclerosis [facility] Diagnosis Onychocryptosis- Primary Ingrowing nail Abscess of toe, right Toe pain, right Pain in soft tissues of limb documented in this encounter [facility] HealthcareEvaluation note* Diagnosis Contusion of left foot, initial encounter- Primary Onychocryptosis Ingrowing nail Toe pain, right Pain in soft tissues of limb Abscess of toe, right Venous insufficiency Unspecified venous (peripheral) insufficiency documented in this encounter [facility] HealthcareEvaluation note* Diagnosis Lisfranc dislocation, left, initial encounter- Primary documented in this encounter [facility] HealthcareEvaluation note* Diagnosis Lisfranc dislocation, left, initial encounter- Primary documented in this encounter [facility] HealthcareHistory general Narrative - Reported* Type Description Date Medical History Unspecified intellectual disabil ities Medical History autism Medical History ADHD Medical History Seizure Disorder Medical History tuberous Sclerosis Subtext Other History general Narrative - Reported* Type Description Date Medical History Unspecified intellectual disabil ities Medical History autism Medical History ADHD Medical History Seizure Disorder Medical History tuberous Sclerosis Surgical History ORIF RT lateral malleolus fx Hospitalization History see above Subtext Other Hospital course Narrative No data [facility] for this [facility] No data available for this [facility] data available for this section [facility] Summary Purpose Family History No [...] section and content) DATE CREATED AUTHOR 08/19/2017 [facility] DATE CREATED AUTHOR AUTHOR'S ORGANIZ ATION 07/30/2018 [place] [facility] DATE CREATED AUTHOR AUTHOR'S ORGANIZ ATION 12/15/2021 [facility] [employer] [facility] DATE CREATED AUTHOR AUTHOR'S ORGANIZ ATION 04/17/2022 [facility] DATE CREATED AUTHOR AUTHOR'S ORGANIZ ATION 06/01/2022 [facility] DATE CREATED AUTHOR AUTHOR'S ORGANIZ ATION 08/21/2023 [facility] DATE CREATED AUTHOR AUTHOR'S ORGANIZ ATION 08/22/2023 [facility] DATE CREATED AUTHOR AUTHOR'S ORGANIZ ATION 08/28/2023 [place] [facility] DATE CREATED AUTHOR AUTHOR'S ORGANIZ ATION 09/10/2023 [place] [facility] DATE CREATED AUTHOR AUTHOR'S ORGANIZ ATION 05/31/2024 [facility] DATE CREATED AUTHOR AUTHOR'S ORGANIZ ATION 08/01/2024 [facility] EPIC REASON FOR VISIT (unrecogniz [...] DO Primary Care Provider Active Cj Gayle DO Attending Provider Active Team Status: Active Member Role Status Dates Go Espinoza DO Primary Care Provider Active Team Status: Inactive Member Role Status Dates Go Espinoza DO Primary Care Provider Active Nallely Parada MD Attending Provider Active Sales Trainee Relationship Specialty Start Date End Date Unallocated, [place] MD Marissa [address] [facility] [place] [address] PCP - General Family Medicine 02/05/23 Sales Trainee Relationship Specialty Start Date End Date Go Espinoza MD [address] [place] [address] PCP - General Family Medicine 02/09/24 Sue Patrick DO [address] [place] [address] Referring Physician Neurology 02/09/24 Sales Trainee Relationship Specialty Start Date End Date Go Espinoza MD [address] [place] [address] PCP - General Family Medicine 02/09/24 Sue Patrick DO [address] [place] [address] Referring Physician Neurology 02/09/24 Sales Trainee Relationship Specialty Start Date End Date Go Espinoza MD [address] [place] [address] PCP - General Family Medicine 02/09/24 Sue Patrick DO [address] [place] [address] Referring Physician Neurology 02/09/24 Sales Trainee Relationship Specialty Start Date End Date Go Espinoza MD [address] [place] [address] PCP - General Family Medicine 02/09/24 Sue Patrick DO [address] [place] [address] Referring Physician Neurology 02/09/24 Sales Trainee Relationship Specialty Start Date End Date Go Espinoza MD [address] [place] [address] PCP - General Family Medicine 02/09/24 Sue Patrick DO [address] [place] [address] Referring Physician Neurology 02/09/24 Sales Trainee Relationship Specialty Start Date End Date Go Espinoza MD [address] [place] [address] PCP - General Family Medicine 02/09/24 Sue Patrick DO [address] [place] [address] Referring Physician Neurology 02/09/24 Sales Trainee Relationship Specialty Start Date End Date Go Espinoza MD [address] [place] [address] PCP - General Family Medicine 02/09/24 Sue Patrick DO [address] [place] [address] Referring Physician Neurology 02/09/24 Goals (unrecognized section [...] BE BASED ON THE PRIMARY CLINICAL RECORDS. [facility] [employer] [facility]. provides no warranty or guarantee of the accuracy or completeness of information in this document.
[2024-08-09 07:11] LABS: Basophils Percent Auto 0.3 % (0.2-2.0); Eosinophils Absolute Auto 0.2 10^3/uL (0.0-0.7); Eosinophils Percent Auto 2.3 % (0.9-7.0); Hematocrit 34.1 % (42.0-54.0); Hemoglobin 11.5 g/dL (14.0-18.0); Immature Granulocytes Abs Auto 0.02 10^3/uL (0.00-0.03); Immature Granulocytes Pct Auto 0.3 % (0.0-0.5); Lymphocytes Absolute Auto 1.1 10^3/uL (1.2-3.8); Lymphocytes Percent Auto 15.1 % (20.5-60.0); Mean Corpuscular HGB Conc 33.7 g/dL (29.9-35.2); Mean Corpuscular Hemoglobin 33.9 pg (25.9-34.0); Mean Corpuscular Volume 100.6 fL (80.0-94.0); Mean Platelet Volume 10.2 fL (9.5-13.5); Monocytes Percent Auto 13.2 % (1.7-12.0); Neutrophils Percent Auto 68.8 % (43.0-75.0); Platelet Count 188 10^3/uL (150-450); Red Blood Count 3.39 10^6/uL (4.70-6.10); White Blood Count 7.3 10^3/uL (4.0-11.0)
[2024-08-09 08:30] LABS: Free T4 0.59 ng/dL (0.76-1.46)
[2024-08-09 08:31] LABS: Alanine Aminotransferase 35 U/L (16-63); Albumin Level 3.5 g/dL (3.4-5.0); Alkaline Phosphatase 214 U/L (46-116); Anion Gap 15.5; Aspartate Amino Transferase 16 U/L (15-37); Bilirubin Total 0.3 mg/dL (0.2-1.0); Calcium 8.8 mg/dL (8.5-10.1); Carbon Dioxide 23.7 mmol/L (21.0-32.0); Chloride 108 mmol/L (98-107); Estimated GFR (African America 43 (>=60 mL/min/1.73m^2); Estimated GFR (Non-African Ame 36 (>=60 mL/min/1.73m^2); Glucose 108 mg/dL (74-106); Potassium 5.2 mmol/L (3.5-5.1); Sodium 142 mmol/L (136-145); Total Protein 7.7 g/dL (6.4-8.2)
[2024-08-09 08:32] LABS: Albumin Globulin Ratio 0.8; Chol HDL Ratio 2.1; Cholesterol 110 mg/dL (<=200); Free T3 1.58 pg/mL (2.18-3.98); Globulin 4.2 g/dL; HDL Cholesterol 52 mg/dL (40-60); Thyroid Stimulating Hormone 0.223 uIU/mL (0.358-3.740); Triglycerides 70 mg/dL (<=150)
[2024-08-09 08:34] LABS: Prostate Specific Antigen Dx 3.67 ng/mL (<=4.00)
== END 2024-08-09 06:40 | disposition home or self-care (01) ==
LOC: LAB 06:39
PROVIDERS: PCP Family Medicine; Visit Provider Family Medicine
DX: I12.9 Hypertensive chronic kidney disease with stage 1 through stage 4 chronic kidney disease, or unspecified chronic kidney disease (principal); N18.9 Chronic kidney disease, unspecified; E03.9 Hypothyroidism, unspecified; G40.909 Epilepsy, unspecified, not intractable, without status epilepticus; K59.00 Constipation, unspecified; Z79.899 Other long term (current) drug therapy
CPT/HCPCS: 36415; 80053; 80061; 84153; 84439; 84443; 84481

== ENCOUNTER 2024-08-14 19:17 | Outpatient (REF) | payer MEDICARE, MEDICAID, SELFPAY ==
--- OUTSIDE RECORDS SUMMARY | 2024-08-01 10:00 | XMS_ITS | Encounter Summary ---
Author Organization [facility] Address [address] [place] [address] Care Team Providers Care Corporate Risk Analyst Name Role Phone Go Foster MD Primary Care Provider [phone] Sue Patrick DO Unavailable [phone] Reason for Visit * Reason Comments Follow-up Lt lis franc Encounter Details Date Type Department Care Team ([facility] Contact Info) Description 08/01/2024 10:00 AM EDT Office Visit [facility] [address] [place] [address] Glenn Flores DPM [address] [address] Lisfranc dislocation, left, initial encounter [...] Primary documented in this encounter Care Teams Corporate Risk Analyst Relationship Specialty Start Date End Date Go Foster MD [address] [facility] [address] [place] [address] PCP - General Family Medicine 02/09/24 Sue Patrick DO [address] [place] [address] Referring Physician Neurology 02/09/24 documented as of this encounter
--- OUTSIDE RECORDS SUMMARY | 2024-08-14 19:21 | XMS_ITS | Encounter Summary ---
Author Organization [facility] Address [address] [place] [address] Care Team Providers Care Energy Administrator Name Role Phone Go Foster Primary Care Provider [phone] Source Comments In the event this information is protected by the Federal Confidentiality of Alcohol and Drug AbusePatient Records regulations: The Federal rules restrict any use of the information to criminally investigate or prosecute any alcohol or drug abuse patient.[facility] Encounter Details Date Type Department Care Team (Late st Contact Info) Description 01/31/2021 Get Medical Advice Psychiatry [address] [place] [address] Ambrocio Romero MD [address] [facility] [address] [place] [address] Visit progress note and next appointment Social [...] N ot on file 01/29/2020 Data from: https://www.neighborhoodatlas.medicine.[facility].edu/. Last address used for calculation Not [...] on filedocumented in this encounter Care Teams Energy Administrator Relationship Specialty Start Date End Date Go Foster DO PCP - General 10/24/12 documented as of this encounter
--- OUTSIDE RECORDS SUMMARY | 2024-08-14 19:21 | XMS_ITS | Encounter Summary ---
Author Organization [facility] Address [address] [place] [address] Care Team Providers Care Multifocal Lens Inspector Name Role Phone Go Foster Primary Care Provider [phone] Source Comments In the event this information is protected by the Federal Confidentiality of Alcohol and Drug AbusePatient Records regulations: The Federal rules restrict any use of the information to criminally investigate or prosecute any alcohol or drug abuse patient.[facility] Encounter Details Date Type Department Care Team (Late st Contact Info) Description 07/23/2021 Get Medical Advice Psychiatry [address] [place], [place] [id number] Ambrocio Romero MD [address] [facility] [address] [place], [place] [id number] Need for medical record of televisit on [...] N ot on file 01/29/2020 Data from: https://www.neighborhoodatlas.medicine.[facility].edu/. Last address used for calculation Not [...] on filedocumented in this encounter Care Teams Multifocal Lens Inspector Relationship Specialty Start Date End Date Go Foster DO PCP - General 10/24/12 documented as of this encounter
--- OUTSIDE RECORDS SUMMARY | 2024-08-14 19:21 | XMS_ITS | Clinical Summary ---
Author Organization [facility] Address [address] [place] [address] Care Team Providers Care Smasher Name Role Phone Go Foster DO Primary Care Provider [phone] Allergies Active Allergy Reactions Criticality Noted Date [...] patient's age to complete this topic Insurance [place] Care Teams Smasher Relationship Specialty Start Date End Date Go Foster DO [address] [place] [address] PCP - General Family Medicine 06/11/16
--- OUTSIDE RECORDS SUMMARY | 2024-08-14 19:21 | XMS_ITS | Encounter Summary ---
Author Organization [facility] Address [address] [place] [address] Care Team Providers Care Staff Software Engineer Name Role Phone Go Foster Primary Care Provider [phone] Source Comments In the event this information is protected by the Federal Confidentiality of Alcohol and Drug AbusePatient Records regulations: The Federal rules restrict any use of the information to criminally investigate or prosecute any alcohol or drug abuse patient.[facility] Encounter Details Date Type Department Care Team (Late st Contact Info) Description 01/08/2022 Get Medical Advice Psychiatry [address] [place] [address] Ambrocio Romero MD [address] [facility] [address] [place] [address] Televisit today for Delano Segovia Social History [...] N ot on file 01/29/2020 Data from: https://www.neighborhoodatlas.medicine.[facility].edu/. Last address used for calculation Not [...] on filedocumented in this encounter Care Teams Staff Software Engineer Relationship Specialty Start Date End Date Go Foster DO PCP - General 10/24/12 documented as of this encounter
--- OUTSIDE RECORDS SUMMARY | 2024-08-14 19:21 | XMS_ITS | Clinical Summary ---
Author Organization [employer] Address [id number] [address] [place] [address] Care Team Providers Care Fresco Artist Name Role Phone FosteroG Radhames OLIVO Primary Care Provider Social History [...] ID:Not on file Type:Not on file Address: [address] [phone] MEDICARE Care Teams Fresco Artist Relationship Specialty Start Date End Date Go Foster DO [address] [place] [address] PCP - General 07/17/16
--- OUTSIDE RECORDS SUMMARY | 2024-08-14 19:21 | XMS_ITS | Encounter Summary ---
Author Organization [facility] Address [address] [place] [address] Care Team Providers Care Mold Cleaning And Storage Supervisor Name Role Phone Go Foster Primary Care Provider [phone] Source Comments In the event this information is protected by the Federal Confidentiality of Alcohol and Drug AbusePatient Records regulations: The Federal rules restrict any use of the information to criminally investigate or prosecute any alcohol or drug abuse patient.[facility] Encounter Details Date Type Department Care Team (Late st Contact Info) Description 05/19/2024 Patient Msg Neurology [address] [id number] Kathy Groves, Research Coordinator Information sheet: updates for [facility] Natural History Database Social History Tobacco Use [...] N ot on file 01/29/2020 Data from: https://www.neighborhoodatlas.[facility]/. Last address used for calculation Not [...] on filedocumented in this encounter Care Teams Mold Cleaning And Storage Supervisor Relationship Specialty Start Date End Date Go Foster DO PCP - General 10/24/12 documented as of this encounter
--- OUTSIDE RECORDS SUMMARY | 2024-08-14 19:21 | XMS_ITS | CCD ---
Author Organization [facility] CliniSyin Care Team Providers Care Cost Accounting Manager Name Role Phone Robbi PETERSEN Unavailable Unavailable ESPINOZA, GO A Unavailable Unavailable ESPINOZA, GO A Unavailable Unavailable Chaban, Kamal Unavailable Nalini Cj Unavailable Espinoza, DO Go A Primary Care Provider DO Cj Gayle A Attending Provider [phone] PROVIDER, UNKNOWN Attending Unavailable PROVIDER, UNKNOWN Admitting Unavailable PROVIDER, UNKNOWN Admitting Unavailable PROVIDER, UNKNOWN Attending Unavailable SIMI EDWARDS Admitting Unavailable SIMI EDWARDS Attending Unavailable SIMI EDWARDS Referring Unavailable Unavailable Primary Care Provider Unavailabl e Espinoza, DO Go A Primary Care Provider [phone] DO Cj Gayle A Attending Provider Espinoza, DO Go A Primary Care Provider [phone] DO Cj Gayle A Attending Provider [phone] MD Nallely Parada Attending Provider [phone] Magdy Gaylein A Attending Unavailable Espinoza, Go [...] Ricci Consulting Unavailable ESPINOZAGO Primary Care Physician [phone] GO ESPINOZA Admitting Unavailable ESPINOZAGO Attending Unavailable ESPINOZA, GO Attending Unavailable ESPINOZA, GO Admitting Unavailable ESPINOZA, GO Attending Unavailable ESPINOZA, GO Admitting Unavailable ESPINOZA, GO Attending Unavailable ESPINOZAGO Admitting Unavailable Unallocated , Noms Provider Primary Care [facility] Go Espinoza MD Primary Care Provider [phone] Sue Patrick DO Unavailable SUMEET CALI Attending [...] adverse reactions to drug (disorder) 7 AOF [facility] Repository (20 sources) PERTUSSIS VACCINES; Translations: [PERTUSSIS VACCINES] Propensity to adverse reactions to drug (disorder) 8 [facility] (1 source) Pertussis Vaccine Drug Allergy 3 [facility] Repository (1 source) ARIPiprazole; Translations: [ARIPIPRAZOLE] Drug Allergy 8 [facility] Repository Medications Current Medications Medication Drug Class(es) [...] mouthwash (5 sources) Start: 09-24-2021 Saliva Substit peoria Combo No.9 (Biotene Dry Mouth Oral Rinse) mouthwash Active 5 ML PO As Directed September 23, 2021 11:00pm Start: 09-24-2021 Saliva Substit peoria Combo No.9 (Biotene Dry Mouth Oral Rinse) [...] 10-16-2021 Episodic Other aftercare (1 source) 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; Translations: [OTH PATENT ATTORNEY CURRENT DRUG THERAPY] Onset: 09-25-2021 Episodic Other [...] Free T3 [Mass/Vol] 1.8 pg/mL Low 2.0-4.4 [facility] Comment on above: Result Comment: Perf ormed at: [facility] [address] [id number] PhD Jarod Kumar Performed By: #### 2 [id number] #### [facility] [address] [place] [address] [id number] 08-20-2023 HbA1c (Bld) [Mass fraction] 5.1 % Normal <=5.9 [facility] Comment on above: Performed By: #### 7 [id number] #### [facility] [address] [place] [address] CBC w/Indiceson 08-19-2023 Erythrocyte distribution width (RBC) [Ratio] 13.2 % Normal 10.9-14.2 [facility] Comment on above: Performed By: #### 2 856821 #### [facility] [address] [place] [address] Hematocrit (Bld) [Volume fraction] 39.3 % Normal 37.7-49.0 [facility] Comment on above: Performed By: #### 2 273292 #### [facility] [address] [place] [address] Hemoglobin (Bld) [Mass/Vol] 13.0 g/dL Low 13.5-17.5 [facility] Comment on above: Performed By: #### 2 739608 #### [facility] [address] [place] [address] MCH (RBC) [Entitic mass] 33.1 pg Normal 27.0-34.0 [facility] Comment on above: Performed By: #### 2 524613 #### [facility] [address] [place] [address] MCHC (RBC) [Mass/Vol] 33.2 g/dL Normal 31.4-36.0 [facility] Comment on above: Performed By: #### 2 356433 #### [facility] [address] [place] [address] MCV (RBC) [Entitic vol] 99.7 fL Normal 80.0-100.0 [facility] Comment on above: Performed By: #### 2 897748 #### [facility] [address] [place] [address] Platelet mean volume (Bld) [Entitic vol] 8.9 fL Normal 6.4-10.8 [facility] Comment on above: Performed By: #### 2 840945 #### [facility] [address] [place] [address] Platelets (Bld) [#/Vol] 156.0 E9/L Normal 150.0-500.0 [facility] Comment on above: Performed By: #### 2 991204 #### [facility] [address] [place] [address] RBC (Bld) [#/Vol] 3.9 E12/L Low 4.3-5.9 [facility] Comment on above: Performed By: #### 2 200475 #### [facility] [address] [place] [address] RBC size Nom (Bld) NORMAL Invalid Interpretation Code [facility] Comment on above: Performed By: #### 2 886403 #### [facility] [address] [place] [address] WBC corrected for nucl RBC Auto (Bld) [#/Vol] 5.3 E9/L Normal 4.0-11.0 [facility] Comment on above: Performed By: #### 2 326775 #### [facility] [address] [place] [address] CHEMISTRYOrdered By: SYSTEM SYSTEM on 08-19-2023 25-hydroxyvitamin [...] used for this result was chemiluminescence using [employer]'s Access Hybritech PSA reagent. Protein [Mass/Vol] 6.9 [...] 08-19-2023 Albumin [Mass/Vol] 4.1 g/dL Normal 3.3-5.0 [facility] Comment on above: Performed By: #### 2 695030 #### [facility] [address] [place] [address] Albumin/Globulin (S) [Mass conc ratio] 1.5 Normal 1.1-2.2 [facility] Comment on above: Performed By: #### 2 326229 #### [facility] [address] [place] [address] ALP [Catalytic activity/Vol] 161 Int._Unit/L High 21-98 [facility] Comment on above: Performed By: #### 2 223544 #### [facility] [address] [place] [address] ALT No additional P-5'-P [Catalytic activity/Vol] 30 Int._Unit/L Normal 6-46 [facility] Comment on above: Performed By: #### 2 171716 #### [facility] [address] [place] [address] Anion gap [Moles/Vol] 10 mmol/L Normal 6-16 [facility] Comment on above: Performed By: #### 2 040893 #### [facility] [address] [place] [address] AST [Catalytic activity/Vol] 21 Int._Unit/L Normal 5-43 [facility] Comment on above: Performed By: #### 2 873321 #### [facility] [address] [place] [address] Bilirubin [Mass/Vol] 0.4 mg/dL Normal 0.0-1.1 [facility] Comment on above: Performed By: #### 2 666605 #### [facility] [address] [place] [address] Calcium [Mass/Vol] 8.9 mg/dL Normal 8.9-11.1 [facility] Comment on above: Performed By: #### 2 632567 #### [facility] [address] [place] [address] Chloride [Moles/Vol] 113 mmol/L High 101-111 [facility] Comment on above: Performed By: #### 2 631343 #### [facility] [address] [place] [address] CO2 [Moles/Vol] 24 mmol/L Normal 21-31 [facility] Comment on above: Performed By: #### 2 363290 #### [facility] [address] [place] [address] Creatinine [Mass/Vol] 1.6 mg/dL High 0.5-1.3 [facility] Comment on above: Performed By: #### 2 744486 #### [facility] [address] [place] [address] Globulin (S) [Mass/Vol] 2.8 g/dL Normal 1.4-4.0 [facility] Comment on above: Performed By: #### 2 442112 #### [facility] [address] [place] [address] Glucose [Mass/Vol] 86 mg/dL Normal 55-199 [facility] Comment on above: Performed By: #### 2 925672 #### [facility] [address] [place] [address] Potassium [Moles/Vol] 4.8 mmol/L Normal 3.5-5.3 [facility] Comment on above: Performed By: #### 2 676712 #### [facility] [address] [place] [address] Protein [Mass/Vol] 6.9 g/dL Normal 6.0-7.8 [facility] Comment on above: Performed By: #### 2 938777 #### [facility] [address] [place] [address] Sodium [Moles/Vol] 142 mmol/L Normal 135-145 [facility] Comment on above: Performed By: #### 2 611298 #### [facility] [address] [place] [address] Urea nitrogen [Mass/Vol] 30 mg/dL High 5-21 [facility] Comment on above: Performed By: #### 2 752297 #### [facility] [address] [place] [address] Urea nitrogen/Creatinine [Mass ratio] 19 No Units Normal 10-20 [facility] Comment on above: Performed By: #### 2 357076 #### [facility] [address] [place] [address] Free T4on 08-19-2023 Free T4 [Mass/Vol] 0.56 ng/dL Low 0.58-1.64 [facility] Comment on above: Performed By: #### 2 152745 #### [facility] [address] [place] [address] HEMATOLOGYOrdered By: SYSTEM SYSTEM on 08-19-2023 Erythrocyte [...] 08-19-2023 Cholesterol [Mass/Vol] 108 mg/dL Low 120-200 [facility] Comment on above: Performed By: #### 2 318769 #### [facility] [address] [place] [address] Cholesterol in HDL [Mass/Vol] 34 mg/dL Invalid Interpretation Code [facility] Comment on above: Result Comment: '>= 60 LOW RISK' '<= 40 HIGH RISK' Performed By: #### 2 996435 #### [facility] [address] [place] [address] Cholesterol in LDL [Mass/Vol] 59 mg/dL Normal <=129 [facility] Comment on above: Performed By: #### 2 689784 #### [facility] [address] [place] [address] Cholesterol in VLDL [Mass/Vol] 19 mg/dL Normal 7-40 [facility] Comment on above: Performed By: #### 2 165926 #### [facility] [address] [place] [address] Triglyceride [Mass/Vol] 94 mg/dL Normal <=149 [facility] Comment on above: Performed By: #### 2 538829 #### [facility] [address] [place] [address] PSA Screen, Totalon 08-19-19 Prostate specific Ag [Mass/Vol] 0.4 ng/mL Normal 0.1-3.5 [facility] Comment on above: Result Comment: The concentration of PSA determined by different manufacturers can vary due to differences in assay methods and reagent specificity. Values obtained from different assay methods cannot be used interchangeably. The methodology used for this result was chemiluminescence using [employer]'s Access Hybritech PSA reagent. Performed By: #### 1 [id number] #### [facility] [address] [place] [address] Physician Orderon 08-19-2023 Physician Order [id number] 9#[id number] Normal [facility] TSHon 08-19-2023 TSH Qn 0.10 m[IU]/L Low 0.34-5.60 [facility] Comment on above: Performed By: #### 2 545487 #### [facility] [address] [place] [address] Vitamin D 25 Hydroxyon 08-18 25-hydroxyvitamin D3 [Mass/Vol] 42.7 ng/mL Normal 30.0-100.0 [facility] Comment on above: Performed By: #### 5 [id number] #### [facility] [address] [place] [address] eGFRon 08-19-2023 eGFR 50 mL/min/1.73 m2 Low >=59 [facility] Comment on above: Order Comment: Order added by Discern Expert. Performed By: #### 1 [id number] #### [facility] [address] [place] [address] T3 Freeon 02-27-2023 Free T3 [Mass/Vol] 2.0 pg/mL Invalid Interpretation Code 2.0-4.4 [facility] Comment on above: Result Comment: Perf ormed at: [facility] [id number] [place], [place] [id number] PhD Jarod Kumar Performed By: #### 2 973882, 8676402, 6738205, 36508108, 274689906, 7190887, 9635033, 1616446, 8980553, 0110659 ####[facility] [address] [place] [address] CBC w/Indiceson 02-25-2023 Erythrocyte distribution width (RBC) [Ratio] 13.2 % Normal 10.9-14.2 [facility] Comment on above: Performed By: #### 2 630592, 2724627, 0431997, 45354372, 533369078, 6383011, 9684905, 1244813, 8123162, 7607442 #### [facility] [address] [place] [address] Hematocrit (Bld) [Volume fraction] 40.6 % Normal 37.7-49.0 [facility] Comment on above: Performed By: #### 2 027416, 8598640, 2028875, 26821965, 101260853, 8724782, 0881145, 7561263, 3313539, 0706128 #### [facility] [address] [place] [address] Hemoglobin (Bld) [Mass/Vol] 13.4 g/dL Low 13.5-17.5 [facility] Comment on above: Performed By: #### 2 767654, 7792141, 1271160, 77369212, 037682068, 5810786, 6588694, 0499979, 0074786, 1053748 #### [facility] [address] [place] [address] MCH (RBC) [Entitic mass] 32.7 pg Normal 27.0-34.0 [facility] Comment on above: Performed By: #### 2 802405, 9761868, 4584326, 42329248, 003081110, 2332867, 3249190, 7650689, 9185025, 5969009 #### [facility] [address] [place] [address] MCHC (RBC) [Mass/Vol] 33.0 g/dL Normal 31.4-36.0 [facility] Comment on above: Performed By: #### 2 731768, 0115971, 7411201, 65926438, 532126893, 6571517, 3205068, 1079904, 9065951, 3554316 #### [facility] [address] [place] [address] MCV (RBC) [Entitic vol] 99.1 fL Normal 80.0-100.0 [facility] Comment on above: Performed By: #### 2 177331, 5930117, 1601489, 09435032, 930865201, 3458796, 5303089, 9047250, 2061708, 4057534 #### [facility] [address] [place] [address] Platelet mean volume (Bld) [Entitic vol] 9.6 fL Normal 6.4-10.8 [facility] Comment on above: Performed By: #### 2 544772, 9101972, 4354838, 05461610, 087986236, 9934188, 5550206, 3440956, 3786541, 5728527 #### [facility] [address] [place] [address] Platelets (Bld) [#/Vol] 170.0 E9/L Normal 150.0-500.0 [facility] Comment on above: Performed By: #### 2 835016, 5795273, 8771728, 55281090, 154414681, 0706398, 5377354, 4633737, 7800107, 5630825 #### [facility] [address] [place] [address] RBC (Bld) [#/Vol] 4.1 E12/L Low 4.3-5.9 [facility] Comment on above: Performed By: #### 2 950503, 7624354, 3315850, 05802533, 583853198, 7957408, 1575375, 7849454, 4603113, 1962500 #### [facility] [address] [place] [address] WBC corrected for nucl RBC Auto (Bld) [#/Vol] 4.4 E9/L Normal 4.0-11.0 [facility] Comment on above: Performed By: #### 2 526329, 8220293, 7823302, 76966510, 655254927, 2058339, 6366976, 8743162, 7157496, 6514054 #### [facility] [address] [place] [address] CHEMISTRYOrdered By: SYSTEM SYSTEM on 02-25-2023 Albumin [...] 02-25-2023 Albumin [Mass/Vol] 4.1 g/dL Normal 3.3-5.0 [facility] Comment on above: Performed By: #### 2 845870, 3373036, 7159111, 23599773, 838755589, 3422018, 2939043, 8818800, 9300598, 6411361 #### [facility] [address] [place] [address] Albumin/Globulin [Mass ratio] 1.4 {ratio} Normal 1.1-2.2 [facility] Comment on above: Performed By: #### 2 994302, 6070950, 2936677, 35238462, 680101085, 9864313, 5188932, 3658360, 7887435, 8099105 #### [facility] [address] [place] [address] Alk Phos 158 Int._Unit/L High 21-98 [facility] Comment on above: Performed By: #### 2 955083, 5550779, 6702239, 09638561, 711738791, 6186869, 2871042, 9259690, 0631659, 9949933 #### [facility] [address] [place] [address] ALT 32 Int._Unit/L Normal 6-46 [facility] Comment on above: Performed By: #### 2 006772, 8184809, 2765271, 66063852, 960262790, 7849713, 0709213, 8348589, 0641396, 1220758 #### [facility] [address] [place] [address] Anion gap [Moles/Vol] 12 mmol/L Normal 6-16 [facility] Comment on above: Performed By: #### 2 463677, 5923878, 8061024, 35514898, 069658237, 4993675, 0624298, 7799070, 1569623, 4913830 #### [facility] [address] [place] [address] AST 25 Int._Unit/L Normal 5-43 [facility] Comment on above: Performed By: #### 2 598227, 4619243, 1705782, 53477517, 330587683, 3861855, 8934401, 5021299, 7736338, 1954242 #### [facility] [address] [place] [address] Bili Total 0.3 mg/dL Normal 0.0-1.1 [facility] Comment on above: Performed By: #### 2 312401, 0791178, 3026900, 75377143, 863631336, 8762671, 7566055, 0793737, 5305301, 7754569 #### [facility] [address] [place] [address] BUN/Creat Ratio 17 No Units Normal 10-20 [facility] Comment on above: Performed By: #### 2 685605, 3177307, 0743759, 99029529, 525928006, 3127911, 1551371, 8337674, 1178722, 9185559 #### [facility] [address] [place] [address] Calcium [Mass/Vol] 8.9 mg/dL Normal 8.9-11.1 [facility] Comment on above: Performed By: #### 2 665667, 8802503, 9177207, 10788778, 559620353, 0625467, 0137699, 7712125, 3452153, 2800695 #### [facility] [address] [place] [address] Chloride [Moles/Vol] 113 mmol/L High 101-111 [facility] Comment on above: Performed By: #### 2 594776, 8742252, 0939588, 44480963, 461243473, 8757321, 3123011, 6142749, 0551279, 8779980 #### [facility] [address] [place] [address] CO2 [Moles/Vol] 22 mmol/L Normal 21-31 [facility] Comment on above: Performed By: #### 2 720734, 6579393, 6814674, 12581251, 861281710, 1218185, 3565700, 4381799, 7232937, 5547819 #### [facility] [address] [place] [address] Creatinine [Mass/Vol] 1.5 mg/dL High 0.5-1.3 [facility] Comment on above: Performed By: #### 2 434562, 1952164, 8483046, 43823885, 410987181, 3750136, 1920376, 8517878, 6743810, 7985282 #### [facility] [address] [place] [address] Globulin (S) [Mass/Vol] 2.9 g/dL Normal 1.4-4.0 [facility] Comment on above: Performed By: #### 2 099808, 7325593, 0438741, 95350009, 575414326, 0261887, 3706371, 7759473, 4458965, 4171588 #### [facility] [address] [place] [address] Glucose [Mass/Vol] 90 mg/dL Normal 55-199 [facility] Comment on above: Performed By: #### 2 729390, 0366335, 9867517, 24048493, 100251261, 8080834, 1502237, 2478688, 5007713, 5438258 #### [facility] [address] [place] [address] Potassium [Moles/Vol] 4.8 mmol/L Normal 3.5-5.3 [facility] Comment on above: Performed By: #### 2 178681, 9521232, 2575237, 61691190, 988188510, 3002969, 6401060, 1792953, 1607899, 6206713 #### [facility] [address] [place] [address] Protein [Mass/Vol] 7.0 g/dL Normal 6.0-7.8 [facility] Comment on above: Performed By: #### 2 852858, 9725055, 4022547, 42903815, 987128529, 8574764, 7981541, 1069549, 4472981, 0492555 #### [facility] [address] [place] [address] Sodium [Moles/Vol] 142 mmol/L Normal 135-145 [facility] Comment on above: Performed By: #### 2 229843, 7861651, 6244375, 02832078, 301492050, 8581746, 1357580, 3544932, 6562049, 5310296 #### [facility] [address] [place] [address] Urea nitrogen [Mass/Vol] 26 mg/dL High 5-21 [facility] Comment on above: Performed By: #### 2 387079, 5158494, 2378182, 94040357, 140124522, 2095527, 2871200, 5971865, 3997011, 2117567 #### [facility] [address] [place] [address] Free T4on 02-25-2023 Free T4 [Mass/Vol] 0.66 ng/dL Normal 0.58-1.64 [facility] Comment on above: Performed By: #### 2 771955, 9139138, 9443208, 15997130, 253770448, 4210346, 1121672, 1263092, 6460348, 4170090 #### [facility] [address] [place] [address] HEMATOLOGYOrdered By: Clarence Srivastava on 02-25-2023 Erythrocyte [...] Ironon 02-25-2023 Iron 130 microgram/dL Normal 35-153 [facility] Comment on above: Performed By: #### 2 682346, 8919117, 9782798, 04324166, 443402202, 6302092, 0454231, 1754532, 1244891, 7024785 #### [facility] [address] [place] [address] Lipid Panelon 02-25-2023 Cholesterol [Mass/Vol] 105 mg/dL Low 120-200 [facility] Comment on above: Performed By: #### 2 939460, 7900848, 2182524, 66746452, 158451413, 4673392, 3947146, 9028967, 4717497, 6263861 #### [facility] [address] [place] [address] Cholesterol in HDL [Mass/Vol] 40 mg/dL Invalid Interpretation Code [facility] Comment on above: Result Comment: '>= 60 LOW RISK' '<= 40 HIGH RISK' Performed By: #### 2 514552, 7357934, 8873853, 70565194, 478724551, 3589647, 9218522, 3352074, 9626361, 7684275 #### [facility] [address] [place] [address] Cholesterol in LDL [Mass/Vol] 54 mg/dL Normal <=129 [facility] Comment on above: Performed By: #### 2 [id number], [id number], 2038002, 77904394, [id number], 8462471, 5078838, 3934964, 1196645, 1583873 #### [facility] Laboratory [address] [place] [address] Cholesterol in VLDL [Mass/Vol] 16 mg/dL Normal 7-40 [facility] Comment on above: Performed By: #### 2 617953, 8964488, 2655762, 20779044, [id number], 7376767, 3154541, 0919662, 3878028, 5337836 #### [facility] Laboratory [address] [place] [address] Triglyceride [Mass/Vol] 81 mg/dL Normal <=149 [facility] Comment on above: Performed By: #### 2 752188, 6354621, 6166701, 24662371, [id number], 1934805, 1396566, 0166821, 6719369, 8233613 #### [facility] Laboratory [address] [place] [address] Physician Orderon 02-25-2023 Physician Order [id number] 5#1.00TIFF Normal [facility] TSHon 02-25-2023 TSH Qn 0.03 m[IU]/L Low 0.34-5.60 [facility] Comment on above: Performed By: #### 2 506579, 5659865, 2508273, 96792894, 692355329, 6765902, 0777153, 0938846, 3679744, 1705297 #### [facility] Laboratory [address] [place] [address] Vit B12on 02-25-2023 Cobalamin (Vitamin B12) [Mass/Vol] 483 pg/mL Normal 50-1500 [facility] Comment on above: Performed By: #### 2 547045, 2897738, 4619241, 38130321, 718967590, 4820763, 2463584, 1389691, 0961848, 6871166 #### [facility] Laboratory [address] [place] [address] Vitamin D 25 Hydroxyon 02-25 Vitamin D 25 Hydroxy 50.9 ng/mL Normal 30.0-100.0 [facility] Comment on above: Performed By: #### 2 623396, 0434080, 0424837, 59327300, 111069632, 2769321, 8326209, 9921055, 1095628, 0875765 ####[facility] [address] [place] [address] eGFRon 02-25-2023 eGFR 55 mL/min/1.73 m2 Low >=59 [facility] Comment on above: Order Comment: Order added by Discern Expert. Performed By: #### 2 458369, 9695663, 9987523, 64977942, 070824424, 8707103, 9214376, 6927935, 9598076, 5871786 #### [facility] Laboratory [address] [place] [address] PSA Screen, Totalon 11-14-19 23 Prostate specific Ag [Mass/Vol] 0.5 ng/mL Normal 0.1-3.5 [facility] Comment on above: Result Comment: The concentration of PSA determined by different manufacturers can vary due to differences in assay methods and reagent specificity. Values obtained from different assay methods cannot be used interchangeably. The methodology used for this result was chemiluminescence using [employer]'s Access Hybritech PSA reagent. Performed By: #### 1 [id number] ####[facility] [address] [place] [address] Physician Orderon 11-12-2022 Physician Order [id number] 7#[id number]:127 Normal [facility] US KIDNEYS BLADDERon 023 US [...] NORMA ROSS Date: 2022-05-27 08:52 Normal [facility] XR PELVIS 1_2 VIEWSon 2022 XR [...] JONAH MAJANO Date: 2022-04-14 08:21 Normal [facility] XR HIP RT 2 3V WO [...] by: NORMA FLORES Date: 2022-04-10 08:41 Normal [facility] Glucose Poct Glucometerson 0 04-09-2022 Commemt1 Normal [facility] Comment on above: Result Comment: Glu2 : WILL NOTIFY DR/RN PERFORMED BY: [facility] [address] [place] [address] PATHOLOGIST PIPE [employer]GAN INSTALLER CHRISTINE FERNÁNDEZ M.D. Performed By: #### G JEAN PIERRE #### Point of Care testing , Glucose [Mass/Vol] 58 mg/dL Off scale low [facility] Comment on above: Result Comment: [place] Glucose Reference Range is dependent on time and content of last meal. Glucose of more than 200 mg/dL in a nonstressed, ambulatory subject supports the diagnosis of Diabetes Mellitus. Performed By: #### G LULS #### Point of Care testing , PET tumor init tx strat sb-m ton 04-09-2022 PET tumor init tx strat sb-mt [facility] Main [place] [address] [place] [address] Nuclear Medicine Report Signed Patient: Delano Segovia MR#: [id number] : 1970 Acct:[id number] Age/Sex: 52 / M ADM Date: 04/09/22 Loc: Room: Type: [facility] Attending Dr: Nallely Parada MD Copies [...] Guzman Jr., D.O.04/09/2022 1:09 PM Dictation Location: [place] [address] Transcribed By: [facility] 04/09/22 1309 Dictated By: Panda De Guzman Jr, DO 04/09/22 1259 Signed By: 04/09/22 1309 Normal [facility] Glucose Glucometer (BldC) [M ass/Vol]Ordered By: Nallely Parada on 03-12-2022 Glucose [Mass/Vol] 95 mg/dL [facility] Comment on above: Random Glucose Refer ence Range is dependent on time and content of last meal. Glucose of more than 200 mg/dL in a nonstressed, ambulatory subject supports the diagnosis of Diabetes Mellitus. Glucose Poct Glucometerson 0 03-12-2022 Glucose [Mass/Vol] 95 mg/dL Normal [facility] Comment on above: Result Comment: [place] om Glucose Reference Range is dependent on time and content of last meal. Glucose of more than 200 mg/dL in a nonstressed, ambulatory subject supports the diagnosis of Diabetes Mellitus. PERFORMED BY: [facility] [address] [place] [address] PATHOLOGIST PIPE ORGAN INSTALLER CHRISTINE FERNÁNDEZ M.D. Performed By: #### G LULS #### Point of Care testing , CBC AUTO DIFFon 03-11-2022 BASO # 0.0 103/ul Normal 0.0-0.1 [facility] Comment on above: Performed By: #### C BC ####[facility] [address] [place] [address]Dr. Guille Mayo Basophils/100 WBC (Bld) 0.6 % Normal 0.2-2.0 [facility] Comment on above: Performed By: #### C BC ####[facility] [address] [place] [address]Dr. Yilan Mayo EO # 0.2 103/ul Normal 0.0-0.7 [facility] Comment on above: Performed By: #### C BC ####[facility] [address] [place] [address]Dr. Yilan Mayo Eosinophils/100 WBC (Bld) 2.8 % Normal 0.9-7.0 [facility] Comment on above: Performed By: #### C BC ####[facility] [address] [place] [address]Dr. Kylahizzy Mayo Erythrocyte distribution width (RBC) [Ratio] 12.6 % Normal 11.0-15.0 [facility] Comment on above: Performed By: #### C BC ####[facility] [address] [place] [address]Dr. Guille Mayo Hematocrit (Bld) [Volume fraction] 40.4 % Critically low 42.0-54.0 [facility] Comment on above: Performed By: #### C BC ####[facility] [address] [place] [address]Dr. Kylahizzy Mayo Hemoglobin (Bld) [Mass/Vol] 13.7 g/dL Critically low 14.0-18.0 [facility] Comment on above: Performed By: #### C BC ####[facility] [address] [place], [place] [address]Dr. Guille Mayo IG # 0.02 10e3/ul Normal 0.00-0.03 [facility] Comment on above: Performed By: #### C BC ####[facility] [address] [place], [place] [address]Dr. Guille Mayo IG % 0.4 % Normal 0.0-0.5 [facility] Comment on above: Performed By: #### C BC ####[facility] [address] [place], [place] [address]Dr. Guille Mayo LYMPH # 1.1 103/ul Critically low 1.2-3.8 [facility] Comment on above: Performed By: #### C BC ####[facility] [address] [place], [place] [address]Dr. Guille Mayo Lymphocytes/100 WBC (Bld) 20.8 % Normal 20.5-60.0 [facility] Comment on above: Performed By: #### C BC ####[facility] [address] [place], [place] [address]Dr. Guille Mayo MANUAL DIFF REQ NO Normal [facility] Comment on above: Performed By: #### C BC ####[facility] [address] [place], [place] [address]Dr. Guille Mayo MCH (RBC) [Entitic mass] 32.3 pg Normal 25.9-34.0 [facility] Comment on above: Performed By: #### C BC ####[facility] [address] [place] [address]Dr. Guille Mayo MCHC (RBC) [Mass/Vol] 33.9 g/dL Normal 29.9-35.2 [facility] Comment on above: Performed By: #### C BC ####[facility] [address] [place] [address]Dr. Guille Mayo MCV (RBC) [Entitic vol] 95.3 fL Critically high 80.0-94.0 [facility] Comment on above: Performed By: #### C BC ####[facility] [address] [place] [address]Dr. Guille Mayo MONO # 0.4 103/ul Normal 0.3-0.8 [facility] Comment on above: Performed By: #### C BC ####[facility] [address] [place] [address]Dr. Guille Gael Monocytes/100 WBC (Bld) 7.4 % Normal 1.7-12.0 [facility] Comment on above: Performed By: #### C BC ####[facility] [address] [place], [place] [address]Dr. Guille Mayo NEUT # 3.7 103/ul Normal 1.4-6.5 [facility] Comment on above: Performed By: #### C BC ####[facility] [address] [place] [address]Dr. Guille Gael Neutrophils/100 WBC (Bld) 68.0 % Normal 43.0-75.0 [facility] Comment on above: Performed By: #### C BC ####[facility] [address] [place] [address]Dr. Guille Mayo Platelet mean volume (Bld) [Entitic vol] 10.4 fL Normal 9.5-13.5 [facility] Comment on above: Performed By: #### C BC ####[facility] [address] [place], [place] [address]Cd. Kylahizzy Mayo PLT 133 103/ul Critically low 150-450 [facility] Comment on above: Performed By: #### C BC ####[facility] [address] [place], [place] [address]Rt. Guille Mayo RBC 4.24 106/ul Critically low 4.70-6.10 [facility] Comment on above: Performed By: #### C BC ####[facility] [address] [place] [address]Dr. Kylahizzy Mayo WBC 5.4 103/ul Normal 4.0-11.0 [facility] Comment on above: Performed By: #### C BC ####[facility] [address] [place] [address]Dr. Guille Mayo FREE T4on 03-11-2022 Free T4 [Mass/Vol] 0.68 ng/dL Critically low 0.76-1.46 [facility] Comment on above: Performed By: #### F T4 #### [facility] Laboratory [address] [place] [address] [address] Guille Mayo LIPID PROFILEon 03-11-2022 CHOL-HDL RATIO NORM SEE BELOW Normal [facility] Comment on above: Result Comment: 3.3 - 4.4 LOW RISK 4.4 - 7.1 AVERAGE RISK 7.1 - 11.0 MODERATE RISK >11.0 HIGH RISK Performed By: #### L IPID, TSH, CMP #### [facility] Laboratory [address] [place] [address] [address] Guille Mayo Cholesterol [Mass/Vol] 130 mg/dL Normal <=200 [facility] Comment on above: Performed By: #### L IPID, TSH, CMP #### [facility] [address] [place] [address] [address] Guille Mayo Cholesterol in HDL [Mass/Vol] 45 mg/dL Normal 40-60 [facility] Comment on above: Performed By: #### L IPID, TSH, CMP #### [facility] [address] [place] [address] [address] Guille Mayo Cholesterol in LDL [Mass/Vol] 67.6 mg/dL Normal [facility] Comment on above: Performed By: #### L IPID, TSH, CMP #### [facility] Laboratory [address] [place] [address] Dr. Guille Mayo Cholesterol.total/Cho lesterol in HDL [Mass ratio] 2.9 {ratio} Normal [facility] Comment on above: Performed By: #### L IPID, TSH, CMP #### [facility] [address] [place] [address] [address] Guille Mayo HDL NORMAL > or = 60 mg/dl - LOW CARDIOVASCULAR RISK <40 mg/dl - HIGH CARDIOVASCULAR RISK Normal [facility] Comment on above: Performed By: #### L IPID, TSH, CMP #### [facility] Laboratory [address] [place] [address] Dr. Guille Mayo LDL CALC NORMAL SEE BELOW Normal [facility] Comment on above: Result Comment: <100 mg/dl OPTIMAL 100 - 129 mg/dl NEAR OR ABOVE OPTIMAL 130 - 159 mg/dl BORDERLINE HIGH 160 - 189 mg/dl HIGH >190 mg/dl VERY HIGH Performed By: #### L IPID, TSH, CMP #### [facility] [address] [place] [address] Dr. Guille Mayo Triglyceride [Mass/Vol] 87 mg/dL Normal <=150 [facility] Comment on above: Performed By: #### L IPID, TSH, CMP #### [facility] [address] [place] [address] Dr. Guille Mayo VLDL CALC 17.4 mg/dL Normal [facility] Comment on above: Performed By: #### L IPID, TSH, CMP #### [facility] Laboratory [address] [place] [address] [address] Guille Mayo PROF 14(COMP METB)on 023 Albumin [Mass/Vol] 3.8 g/dL Normal 3.4-5.0 [facility] Comment on above: Performed By: #### L IPID, TSH, CMP #### [facility] Laboratory [address] [place] [address] Dr. Guille Mayo Albumin/Globulin [Mass ratio] 1.0 {ratio} Normal [facility] Comment on above: Performed By: #### L IPID, TSH, CMP #### [facility] Laboratory [address] [place] [address] Dr. Guille Mayo ALP [Catalytic activity/Vol] 217 U/L Critically high 46-116 [facility] Comment on above: Performed By: #### L IPID, TSH, CMP #### [facility] [address] [place] [address] Dr. Guille Mayo ALT [Catalytic activity/Vol] 38 U/L Normal 16-63 [facility] Comment on above: Performed By: #### L IPID, TSH, CMP #### [facility] Laboratory [address] [place] [address] Dr. Guille Mayo Anion gap [Moles/Vol] 12.2 mmol/L Normal [facility] Comment on above: Performed By: #### L IPID, TSH, CMP #### [facility] [address] [place] [address] Dr. Guille Myao AST [Catalytic activity/Vol] 32 U/L Normal 15-37 [facility] Comment on above: Performed By: #### L IPID, TSH, CMP #### [facility] [address] [place] [address] Dr. Guille Mayo Bilirubin [Mass/Vol] 0.3 mg/dL Normal 0.2-1.0 [facility] Comment on above: Performed By: #### L IPID, TSH, CMP #### [facility] [address] [place] [address] Dr. Guille Mayo Calcium [Mass/Vol] 9.3 mg/dL Normal 8.5-10.1 [facility] Comment on above: Performed By: #### L IPID, TSH, CMP #### [facility] [address] [place] [address] Dr. Guille Mayo Chloride [Moles/Vol] 106 mmol/L Normal 98-107 [facility] Comment on above: Performed By: #### L IPID, TSH, CMP #### [facility] Laboratory [address] [place] [address] [address] Guille Mayo CO2 [Moles/Vol] 27.2 mmol/L Normal 21.0-32.0 [facility] Comment on above: Performed By: #### L IPID, TSH, CMP #### [facility] Laboratory [address] [place] [address] [address] Guille Mayo Creatinine [Mass/Vol] 1.31 mg/dL Critically high 0.70-1.30 [facility] Comment on above: Performed By: #### L IPID, TSH, CMP #### [facility] Laboratory [address] [place] [address] [address] Guille Mayo EGFR-AF CITIZEN [place] >60 Normal >=60 [facility] Comment on above: Performed By: #### L IPID, TSH, CMP #### [facility] Laboratory [address] [place] [address] Dr. Guille Mayo EGFR-NON AF CITIZEN [place] 57 mL/min/1.73m2 Critically low >=60 [facility] Comment on above: Performed By: #### L IPID, TSH, CMP #### [facility] Laboratory [address] [place] [address] [address] Guille Mayo Globulin (S) [Mass/Vol] 3.8 g/dL Normal [facility] Comment on above: Performed By: #### L IPID, TSH, CMP #### [facility] Laboratory [address] [place] [address] Dr. Guille Mayo Glucose [Mass/Vol] 98 mg/dL Normal 74-106 [facility] Comment on above: Performed By: #### L IPID, TSH, CMP #### [facility] Laboratory [address] [place] [address] [address] Guille Mayo Potassium [Moles/Vol] 4.4 mmol/L Normal 3.5-5.1 [facility] Comment on above: Performed By: #### L IPID, TSH, CMP #### [facility] Laboratory [address] [place] [address] [address] Guille Mayo Protein [Mass/Vol] 7.6 g/dL Normal 6.4-8.2 [facility] Comment on above: Performed By: #### L IPID, TSH, CMP #### [facility] [address] [place], [place] [address] Dr. Guille Mayo Sodium [Moles/Vol] 141 mmol/L Normal 136-145 [facility] Comment on above: Performed By: #### L IPID, TSH, CMP #### [facility] [address] [place], [place] [address] Dr. Guille Mayo Urea nitrogen [Mass/Vol] 27.0 mg/dL Critically high 7.0-18.0 [facility] Comment on above: Performed By: #### L IPID, TSH, CMP #### [facility] [address] [place] [address] [address] Guille Mayo Urea nitrogen/Creatinine [Mass ratio] 20.6 mg/mg Normal [facility] Comment on above: Performed By: #### L IPID, TSH, CMP #### [facility] Laboratory [address] [place] [id number] [address] Guille Mayo TSHon 03-11-2022 TSH 0.278 uIU/mL Critically low 0.358-3.740 [facility] Comment on above: Performed By: #### L IPID, TSH, CMP ####[facility] [address] [place], [place] [address]BwDr. Guille Mayo XR ankle RT min 3V*on 2021 XR ankle RT min 3V* [facility] Main [place] [address] [place] [address] XRay Report Signed Patient: Delano Segovia MR#: [id number] : 1970 Acct:[id number] Age/Sex: 51 / M ADM Date: 01/06/22 [place] [facility] [place] [facility] Attending Dr: Cj Gayle DO Copies to: [...] Geovanny Magallanes M.D.01/06/2022 3:54 PM Dictation Location: [place] [address] Transcribed By: [facility] 01/06/22 1554 Dictated By: Geovanny Magallanes DO 01/06/22 1553 Signed By: 01/06/22 1554 Normal [facility] XR ankle RT min 3V* [facility] [employer] Other XR ankle RT min 3V* [facility] [employer] Other XR ankle RT min 3V* [address] [place] [address] [employer] Other XR ankle RT min 3V* [place] [address] [employer] Other XR ankle RT min 3V* XRay Report [facility] [employer] Other XR ankle RT min 3V* Signed [employer] Other XR ankle RT min 3V* Patient: Delano Segovia MR#: [id number] [employer] Other XR ankle RT min 3V* : 1970 Acct:[id number] [employer] Other XR ankle RT min 3V* Age/Sex: 51 / M ADM Date: 01/06/22 [employer] Other XR ankle RT min 3V* [place] [facility] [place]: Type: [facility] [employer] Other XR ankle RT min 3V* Attending Dr: Cj Gayle DO [employer] Other XR ankle RT min 3V* Copies to: Cj Gayle DO [employer] Other XR ankle RT min 3V* Ordering Provider: Cj Gayle DO [employer] Other XR ankle RT min 3V* Date of Service: 01/06/22 [employer] Other XR ankle RT min 3V* XR/XR ankle RT min 3V*: Displaced fracture of lateral malleolus of right [employer] Other XR ankle RT min 3V* fibula, sub [employer] Other XR ankle RT min 3V* 3views Rightankle [place] [employer] Other XR ankle RT min 3V* COMPARISON:11/22/21 [employer] Other XR ankle RT min 3V* HISTORY: Status post ORIF RIGHT lateral malleolus fracture [employer] Other XR ankle RT min 3V* No hardware failure. Adequate bony alignment. Continued healing of distal fibular fracture. [employer] Other XR ankle RT min 3V* XR/XR ankle RT min 3V* [employer] Other XR ankle RT min 3V* IMPRESSION: Healing fracture. No hardware failure. [employer] Other XR ankle RT min 3V* Impression dictated by: Geovanny Magallanes M.D.01/06/2022 3:54 PM [employer] Other XR ankle RT min 3V* Dictation Location: [place] [address] [employer] Other XR ankle RT min 3V* Transcribed By: WENDY 01/06/22 [facility] [employer] Other XR ankle RT min 3V* Dictated By: Geovanyn Magallanes DO 01/06/22 [facility] [employer] Other XR ankle RT min 3V* Signed By: [employer] Other XR ankle RT min 3V* 01/06/22 1554 No rth [employer] Other Progress Noteson 12-04-2021 Mainframe Programmer Analyst Authentication Interface Message Text Normal [employer] Mainframe Programmer Analyst Authentication Interface Message Text ----- Saturday, December 04, 2021 at 11:22:04 AM ----- ----- Provider: [id number] Brandy Bautistaenist -- Clinic: [place] ----- [facility], Pt is ready for tx. Pt presented with caries Radiograph taken today: none Discussed the medical necessity of the problem with the pt. Instructions given to pt. Caregiver understood the situation and is okay with medications for today. Pt will come back should things get worse. Guardianship: PARENTS - Baldomero and Mila (Marlin) Luca [address] [place] [address] / Email: [email or web address] Communicated with caregiver that the pt was placed on the OR list and we will call with appt. Limited exam completed by Dr. Cohen [place]. OR ----- Signed on Saturday, December 04, 2021 at 11:51:43 AM ----- ----- Provider: [id number] Tucker Myers DDS -- Clinic: [place] ----- Normal [facility] [employer] [facility] XR ankle RT min 3V*on 2021 XR ankle RT min 3V* [facility] [place] [place] [address] XRay Report Signed Patient: Delano Segovia MR#: [id number] : 1970 Acct:[id number] Age/Sex: 51 / M ADM Date: 11/22/21 [place] [facility] [place]: Type: [facility] Attending Dr: Cj Gayle DO Copies [...] Guzman Jr., D.O.11/22/2021 2:39 PM Dictation Location: [facility] Transcribed By: WENDY 11/22/21 1439 Dictated By: Panda De Guzman Jr, DO 11/22/21 1438 Signed By: 11/22/21 1439 Normal [facility] XR ankle RT min 3V*on 2021 XR ankle RT min 3V* [facility] Main [place] [address] [place] [address] XRay Report Signed Patient: Delano Segovia MR#: [id number] : 1970 Acct:[id number] Age/Sex: 51 / M ADM Date: 10/16/21 [place] [facility] [place]: Type: [facility] Attending Dr: Cj Gayle DO Copies [...] 10/16/21 1307 Signed By: 10/16/21 1310 Normal [facility] XR ankle RT min 3V* [facility] [employer] Other XR ankle RT min 3V* [facility] Main [facility] [employer] Other XR ankle RT min 3V* [address] [place] [address] [employer] Other XR ankle RT min 3V* [place] [address] [employer] Other XR ankle RT min 3V* XRay Report [employer] Other XR ankle RT min 3V* Signed [employer] Other XR ankle RT min 3V* Patient: Delano Segovia MR#: [id number] [employer] Other XR ankle RT min 3V* : 1970 Acct:[id number] [employer] Other XR ankle RT min 3V* Age/Sex: 51 / M ADM Date: 10/16/21 [employer] Other XR ankle RT min 3V* [place] [facility] [place]: Type[place] [facility] [employer]App Other XR ankle RT min 3V* Attending Dr: Cj Gayle DO [employer] Other XR ankle RT min 3V* Copies to: Cj Gayle DO [employer] Other XR ankle RT min 3V* Ordering Provider: Cj Gayle DO [employer] Other XR ankle RT min 3V* Date of Service: 10/16/21 [employer] Other XR ankle RT min 3V* XR/XR ankle RT min 3V*: Displaced fracture of lateral malleolus of right [employer] Other XR ankle RT min 3V* fibula, sub Nort [employer] Other XR ankle RT min 3V* RIGHT ANKLE - 3 views [employer] Other XR ankle RT min 3V* CLINICAL HISTORY: ORIF right lateral malleolus fracture. Follow up [employer] Other XR ankle RT min 3V* COMPARISON: Intraoperative study 09/24/2021 [employer] Other XR ankle RT min 3V* FINDINGS: [employer] Other XR ankle RT min 3V* syndesmotic screw without evidence of hardware complication. Fracture line is still evident [employer] Other XR ankle RT min 3V* suggestive of incomplete healing. Medial malleolar fracture is unchanged.. Soft tissue swelling. [employer] Other XR ankle RT min 3V* Plantar spurring. [employer] Other XR ankle RT min 3V* XR/XR ankle RT min 3V* [employer] Other XR ankle RT min 3V* IMPRESSION: [employer] Other XR ankle RT min 3V* NO EVIDENCE OF HARDWARE COMPLICATION. [employer] Other XR ankle RT min 3V* Impression dictated by: Panda De Guzman Jr., DCarolOCarol10/16/2021 1:10 PM [employer] Other XR ankle RT min 3V* Dictation Location: [place] [address] [employer] Other XR ankle RT min 3V* Transcribed By: WENDY 10/16/21 1310 [employer] Other XR ankle RT min 3V* Dictated By: Panda De Guzman Jr, DO 10/16/21 1307 [employer] Other XR ankle RT min 3V* Signed By: [employer] Other XR ankle RT min 3V* 10/16/21 1310 No rth [employer] Other ECG 12 lead ECGon 09-24-2021 ECG 12 lead ECG [facility] Main [place] [id number] Electrocardiograph Report Signed Patient: Delano Segovia MR#: [id number] : 1970 Acct:[id number] Age/Sex: 51 / M ADM Date: 09/24/21 Loc: [place] Room: Type: [facility] Attending Dr: Cj Gayle DO Ordering [...] By Zafar Spicer DO 09/24 1909 Normal [facility] XR ankle RT min 3V*on 2021 XR ankle RT min 3V* [facility] Main [place] [id number] XRay Report Signed Patient: Delano Segovia MR#: [id number] : 1970 Acct:[id number] Age/Sex: 51 / M ADM Date: 09/24/21 Loc: [place] Room: Type: [facility] Attending Dr: Cj Gayle DO Copies [...] Guzman Jr., D.O.09/24/2021 4:10 PM Dictation Location: [place] [address] Transcribed By: [facility] 09/24/21 1610 Dictated By: Panda De Guzman Jr, DO 09/24/21 1609 Signed By: 09/24/21 1610 Normal [facility] COVID-19 FRon 09-23-2021 SARS-CoV-2 (COVID-19) RNA GARY+probe Ql (Unsp spec) Negative Normal Negative [facility] Comment on above: Order Comment: Comme nt OR 09/24/21 Healthcare Worker?: N Result Comment: Testing for SARS-CoV-2 by RT-PCR This test was developed and its performance characteristics determined by [employer] ([employer]) and validated at the [facility]. This test has not been FDA [...] is terminated or revoked sooner. PERFORMED BY: [place] [address] PATHOLOGIST PIPE ORGAN INSTALLER CHRISTINE FERNÁNDEZ M.D. Performed By: #### C OVID 19 [facility] #### [address] COVID-19 Positive/NegativeOr dered By: Cj Gayle on 09-23-2021 SARS-CoV-2 (COVID-19) N gene GARY+probe Ql (Resp) Negative Negative [facility] Comment on above: Testing for SARS-CoV -2 by RT-PCR This test was developed and its performance characteristics determined by [employer] ([employer]) and validated at the [facility]. This test has not been FDA [...] BASO # 0.0 103/ul Normal 0.0-0.1 [facility] Comment on above: Performed By: #### C BC ####[facility] [address] [place], [place] [address]Dr. Yilan Mayo Basophils/100 WBC (Bld) 0.2 % Normal 0.2-2.0 [facility] Comment on above: Performed By: #### C BC ####[facility] [address] [place], [place] [address]Dr. Yilan Mayo EO # 0.1 103/ul Normal 0.0-0.7 [facility] Comment on above: Performed By: #### C BC ####[facility] [address] [place], [place] [address]Dr. Yilan Mayo Eosinophils/100 WBC (Bld) 1.2 % Normal 0.9-7.0 [facility] Comment on above: Performed By: #### C BC ####[facility] [address] [place] [address]Dr. Guille Mayo Erythrocyte distribution width (RBC) [Ratio] 12.2 % Normal 11.0-15.0 [facility] Comment on above: Performed By: #### C BC ####[facility] [address] [place] [address]Dr. Guille Mayo Hematocrit (Bld) [Volume fraction] 38.0 % Critically low 42.0-54.0 [facility] Comment on above: Performed By: #### C BC ####[facility] Ehivpyxy[address] [place], [place] [address]Dr. Guille Mayo Hemoglobin (Bld) [Mass/Vol] 12.8 g/dL Critically low 14.0-18.0 [facility] Comment on above: Performed By: #### C BC ####[facility] [address] [place], [place] [address]Dr. Guille Gael IG # 0.03 10e3/ul Normal 0.00-0.03 [facility] Comment on above: Performed By: #### C BC ####[facility] [address] [place], [place] [address]Dr. Guille Mayo IG % 0.4 % Normal 0.0-0.5 [facility] Comment on above: Performed By: #### C BC ####[facility] D[address] [place], [place] [address]Dr. Guille Mayo LYMPH # 0.9 103/ul Critically low 1.2-3.8 [facility] Comment on above: Performed By: #### C BC ####[facility] W[address] [place], [place] [address]Dr. Guille Mayo Lymphocytes/100 WBC (Bld) 10.7 % Critically low 20.5-60.0 [facility] Comment on above: Performed By: #### C BC ####[facility] [address] [place], [place] [address]Dr. Guille Gael MANUAL DIFF REQ NO Normal [facility] Comment on above: Performed By: #### C BC ####[facility] [address] [place] [address]Dr. Guille Mayo MCH (RBC) [Entitic mass] 32.2 pg Normal 25.9-34.0 [facility] Comment on above: Performed By: #### C BC ####[facility] [address] [place], [place] [address]Dr. Guille Mayo MCHC (RBC) [Mass/Vol] 33.7 g/dL Normal 29.9-35.2 [facility] Comment on above: Performed By: #### C BC ####[facility] [address] [place], [place] [address]Dr. Guille Mayo MCV (RBC) [Entitic vol] 95.7 fL Critically high 80.0-94.0 [facility] Comment on above: Performed By: #### C BC ####[facility] [address] [place], [place] [address]Dr. Guille Gael MONO # 0.7 103/ul Normal 0.3-0.8 [facility] Comment on above: Performed By: #### C BC ####[facility] [address] [place], [place] [address]Dr. Guille Gael Monocytes/100 WBC (Bld) 9.0 % Normal 1.7-12.0 [facility] Comment on above: Performed By: #### C BC ####[facility] [address] [place], [place] [address]Dr. Guille Mayo NEUT # 6.4 103/ul Normal 1.4-6.5 [facility] Comment on above: Performed By: #### C BC ####[facility] [address] [place], [place] [address]Dr. Guille Gael Neutrophils/100 WBC (Bld) 78.5 % Critically high 43.0-75.0 [facility] Comment on above: Performed By: #### C BC ####[facility] [address] [place], [place] [address]Dr. Guille Mayo Platelet mean volume (Bld) [Entitic vol] 9.9 fL Normal 9.5-13.5 [facility] Comment on above: Performed By: #### C BC ####[facility] [address] [place], [place] [address]Nc. Guille Mayo PLT 152 103/ul Normal 150-450 [facility] Comment on above: Performed By: #### C BC ####[facility] [address] [place], [place] [address]Cn. Guille Mayo RBC 3.97 106/ul Critically low 4.70-6.10 [facility] Comment on above: Performed By: #### C BC ####[facility] [address] [place], [place] [address]Ur. Guille Mayo WBC 8.1 103/ul Normal 4.0-11.0 [facility] Comment on above: Performed By: #### C BC ####[facility] [address] [place], [place] [address]Vv. Gu[address] Mayo [address] HEAD WO CONon 09-18-2021 [...] SANDY DÍAZ Date: 2021-09-18 15:44 Normal [facility] Covid-19 PCR ([facility])on 08-24 SARS-CoV-2 (COVID-19) RNA GARY+probe Ql (Unsp spec) Not detected Normal NOT DETECTED [facility] Comment on above: Result Comment: When diagnostic [...] for this test is supported by the [place] of Health and Human Service's declaration that [...] longer be used). Performed By: #### [facility] ####[facility] [address] [place], [place] [address]Dr. Guille Mayo PROF CHEM 8 (BAS METB)on Anion gap [Moles/Vol] 12.4 mmol/L Normal [facility] Comment on above: Performed By: #### B MP ####[facility] [address] [place], [place] [address]Dr. Guille Mayo Calcium [Mass/Vol] 8.7 mg/dL Normal 8.5-10.1 [facility] Comment on above: Performed By: #### B MP ####[facility] [address] [place], [place] [address]Dr. Guille Mayo Chloride [Moles/Vol] 107 mmol/L Normal 98-107 [facility] Comment on above: Performed By: #### B MP ####[facility] N[address] [place], [place] [address]Dr. Guille Mayo CO2 [Moles/Vol] 28.0 mmol/L Normal 21.0-32.0 [facility] Comment on above: Performed By: #### B MP ####[facility] [address] [place], [place] [address]Dr. Guille Mayo Creatinine [Mass/Vol] 1.45 mg/dL Critically high 0.70-1.30 [facility] Comment on above: Performed By: #### B MP ####[facility] [address] [place], [place] [address]Tv. Guille Mayo EGFR-AF CITIZEN OF [place] >60 Normal >=60 [facility] Comment on above: Performed By: #### B MP ####[facility] [address] [place] [address]Dr. Guille Mayo EGFR-NON AF CITIZEN OF [place] 51 mL/min/1.73m2 Critically low >=60 [facility] Comment on above: Performed By: #### B MP ####[facility] [address] [place] [address]Dr. Guille Mayo Glucose [Mass/Vol] 87 mg/dL Normal 74-106 [facility] Comment on above: Performed By: #### B MP ####[facility] [address] [place] [address]Dr. Guille Mayo Potassium [Moles/Vol] 4.4 mmol/L Normal 3.5-5.1 [facility] Comment on above: Performed By: #### B MP ####[facility] [address] [place], [place] [address]Dr. Guille Mayo Sodium [Moles/Vol] 143 mmol/L Normal 136-145 [facility] Comment on above: Performed By: #### B MP ####[facility] [address] [place] [address]Dr. Guille Mayo Urea nitrogen [Mass/Vol] 24.0 mg/dL Critically high 7.0-18.0 [facility] Comment on above: Performed By: #### B MP ####[facility] [address] [place] [address]Dr. Guille Mayo Urea nitrogen/Creatinine [Mass ratio] 16.6 mg/mg Normal [facility] Comment on above: Performed By: #### B MP ####[facility] [address] [place], [place] [address]Dr. Guille Mayo XR CHEST 1 Von 09-18-2021 [...] by: SANDY DÍAZ Date: 2021-09-18 15:36 Normal [facility] CT CHEST WO CONon 08-02-2021 CT CHEST [...] by: NORMA ROSS Date: 2021-08-02 08:52 Normal [facility] XR DEXA BONE DENSITYon 07-31 [...] by: NORMA ROSS Date: 2021-07-31 16:14 Normal [facility] Anesthesia Attestationon Mainframe Programmer Analyst Authentication Interface Message Text Anesthesia Attestation ATTESTATION OF INFORMED CONSENT FOR ANESTHESIA Anesthesia options were discussed with the patient and/or legal bank representative. The risks, benefits and alternatives were reviewed. Questions regarding anesthesia were answered. Patient and/or legal bank representative knows such anesthetics and procedures may be performed by Resident physicians, Certified Anesthesiologist Assistants, or Certified Nurse Anesthetists under the supervision of a physician. The patient /or the patient's legal bank representative agree with the plan for anesthesia. Normal [facility] Anesthesia Postprocedure Zo troy 01-25-2021 Mainframe Programmer Analyst Authentication Interface Message Text Anesthesia Postoperative [...] ANESTHESIA COMPLICATIONS: No complications documented. Normal [facility] Anesthesia Transfer Of Careo n 01-25-2021 Mainframe Programmer Analyst Authentication Interface Message Text Patient taken [...] Simi Edwards DDS Anesthesiologist: Jero Peralta MD Machine Joint Cutter: Anson Schwartz MD DENTAL RESTORATIONS (Bilateral ) [...] was received. Anson Schwartz MD Normal [facility] Blood Attestationon 01-26-20 Mainframe Programmer Analyst Authentication Interface Message Text Blood Attestation ATTESTATION OF INFORMED CONSENT FOR BLOOD The transfusion of blood and/or blood components were discussed with the patient and/or legal bank representative. The risks, benefits and alternatives were reviewed. Questions regarding blood transfusions were answered. The patient /or the patient's legal bank representative agree with the plan for transfusion of blood and/or blood components. 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 Procedures: Full mouth X-ray 87485 Exam 61774 Cleaning 53855 Denominational 34208 Fluoride 57736 Excisional biopsy 38321 No data filed Surgeon(s): Surgeon(s): Simi Edwards DDS Staff: Liaison Inspection Laboratory Assistant Nurse: Deborah Chapman RN; Crystal Anderson RN Diesel Truck Crane Operator: Carolyn López DDS Anesthesia: General Anesthesiologist: Jero Peralta MD Machine Joint Cutter: Anson Schwartz MD Specimen(s): ID Type Source [...] López DDS 01/25/2021 12:11 PM Normal [facility] OP Noteon 01-25-2021 Mainframe Programmer Analyst Authentication Interface Message Text Surgical Case Number Data Unavailable Operating Room Data Unavailable Preoperative Diagnosis(es): Dental caries [747832] Autism spectrum disorder F84.0 Moderate intellectual disability F79 Seizure disorder G40.89 Postoperative Diagnosis(es): Autism spectrum disorder F84.0 Moderate intellectual disability F79 Seizure disorder G40.89 Dental caries [580299] 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 upmisay-nlczznjkki-g cellular pertussis ([employer]) 5-2.5-18.5 LF-MCG/0.5 injection Inject 0.5 mL into the muscle. Dictated by: Carolyn López DDS: Simi Joyner DDS was present for the critical portions of the procedure. 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 * mbypcoo-eioktrqoay-c cellular pertussis ([employer]) 5-2.5-18.5 LF-MCG/0.5 injection Inject 0.5 mL into the muscle. Dictated by: Carolyn López DDS: Simi Joyner DDS was present for the critical portions of the procedure. Carolyn López DDS 01/25/2021 12:18 PM Normal [facility] Anesthesia Preprocedure Moshe pandya 01-24-2021 Mainframe Programmer Analyst Authentication Interface Message Text ASA: 3 [...] the history and physical examination. Normal [facility] Telephone Encounteron 2020 Mainframe Programmer Analyst Authentication Interface Message Text Informed Consent for dental surgery AND Anesthesia consent obtained and scanned into FFFavs. Scheduled for surgery 01/25/2021. Normal [facility] AUD - Progress Noteson 04-20 Protein mass conc Pt. referred for hearing evaluation by Dr. Espinoza, accompanied by Caitie, a direct care provider from [facility]. Pt. returns today after having ears cleaned out. Pt. denied ear pain at the time of testing. Completed evaluation, resorting to play audiometry for pure tone testing. See AUD-Assessments for Report/Results. DX CODES: H90.3 sensorineural hearing loss bilateral Normal [facility] Coding Summary.on 04-20-2018 Coding Summary. CODING DATE: 04/20/2018 FINAL [facility] STATUS: PAYOR: Medicare APC DESCRIPTION [id number] [...] CphT Date Saved: 04/20/2018 09:11 pm Normal [facility] AUD - Progress Noteson 03-31 Protein mass conc pt. referred for hearing evaluation by Muna Espinoza DO, accompanied by Darius direct care provider from [facility]. Otoscopy revealed cerumen in the right ear canal clocking view of the tympanic membrane, left ear with moderate cerumen but tympanic membrance visible. Discussed with Saurabh, did not complete evaluation today. He will return after bilateral ear cleaning. Called and spoke to [facility]/Nursing/Ainsley and advised her of the above. Normal [facility] Mohit 09-09-2016 Alanine aminotransferase (ALT) 35 U/L Normal <40 [facility] Soni 09-09-2016 Aspartate aminotransferase (AST) 26 U/L Normal 15-50 [facility] Albuminon 09-09-2016 Albumin 4.5 g/dL Normal 3.4-5.2 [facility] BUNon 09-09-2016 Urea nitrogen 21 mg/dL High 5-18 [facility] Creatinineon 09-09-2016 Creatinine 1.21 mg/dL High 0.50-1.20 [facility] Electrolyteson 09-09-2016 Chloride 107 mmol/L High 95-106 [facility] CO2 24 mmol/L Normal 24-35 [facility] Potassium molar conc 4.4 mmol/L Normal 3.7-5.3 [facility]/L Normal 135-145 [facility] Vital Signs Date Time Vital Sign Value Performing Clinician Facility 08-01-2024 09:54-0400 Body height 172.7 cm Glenn Flores DPM Work Phone: [facility] 08-01-2024 09:54-0400 Body mass index (BMI) [Ratio] 28.13 kg/m2 Glenn Flores DPM Work Phone: [facility] 08-01-2024 09:54-0400 Body weight 83.92 kg Glenn Flores DPM Work Phone: [facility] 08-01-2024 09:54-0400 Respiratory rate 18 /min Glenn Flores DPM Work Phone: [facility] 07-11-2024 09:55-0400 Body height 172.7 cm Glenn Flores DPM Work Phone: [facility] 07-11-2024 09:55-0400 Body mass index (BMI) [Ratio] 28.13 kg/m2 Glenn Brown DPM Work Phone: [facility] 07-11-2024 09:55-0400 Body weight 83.92 kg Glenn Brown DPM Work Phone: [facility] 07-11-2024 09:55-0400 Respiratory rate 16 /min Glenn Brown DPM Work Phone: [facility] 06-17-2024 10:03-0400 Body height 172.7 cm Glenn Brown DPM Work Phone: [facility] 06-17-2024 10:03-0400 Body mass index (BMI) [Ratio] 28.13 kg/m2 Glenn Brown DPM Work Phone: [facility] 06-17-2024 10:03-0400 Body weight 83.92 kg Glenn Brown DPM Work Phone: [facility] 06-17-2024 10:03-0400 Respiratory rate 16 /min Glenn Brown DPM Work Phone: [facility] 05-27-2024 09:46-0400 Body height 172.7 cm Glenn Brown DPM Work Phone: [facility] 05-27-2024 09:46-0400 Body mass index (BMI) [Ratio] 28.13 kg/m2 Glenn Brown DPM Work Phone: [facility] 05-27-2024 09:46-0400 Body weight 83.92 kg Glenn Brown DPM Work Phone: [facility] 05-27-2024 09:46-0400 Respiratory rate 16 /min Glenn Brown DPM Work Phone: [facility] 05-18-2024 16:06-0400 Body height 172.7 cm Glenn Brown DPM Work Phone: [facility] 05-18-2024 16:06-0400 Body mass index (BMI) [Ratio] 28.13 kg/m2 Glenn Flores DPM Work Phone: [facility] 05-18-2024 16:06-0400 Body weight 83.92 kg Glenn Flores DPM Work Phone: [facility] 05-18-2024 16:06-0400 Diastolic blood pressure 90 mm[Hg] Glenn Flores DPM Work Phone: [facility] 05-18-2024 16:06-0400 Heart rate 69 /min Glenn Flores DPM Work Phone: [facility] 05-18-2024 16:06-0400 Systolic blood pressure 139 mm[Hg] Glenn Flores DPM Work Phone: [facility] 04-15-2024 09:29-0500 Body height 172.7 cm Glenn Flores DPM Work Phone: [facility] 04-15-2024 09:29-0500 Body mass index (BMI) [Ratio] 28.13 kg/m2 Glenn Flores DPM Work Phone: [facility] 04-15-2024 09:29-0500 Body weight 83.92 kg Glenn Flores DPM Work Phone: [facility] 04-15-2024 09:29-0500 Diastolic blood pressure 82 mm[Hg] Glenn Flores DPM Work Phone: [facility] 04-15-2024 09:29-0500 Heart rate 71 /min Glenn Flores DPM Work Phone: [facility] 04-15-2024 09:29-0500 Systolic blood pressure 138 mm[Hg] Glenn Brown DPM Work Phone: [facility] 02-09-2024 10:52-0500 Body height 172.7 cm Ana Maria Hsu NP Work Phone: [facility] 02-09-2024 10:52-0500 Body mass index (BMI) [Ratio] 28.13 kg/m2 Ana Maria Ramirezmor MORTGAGE SALES MANAGER Work Phone: [facility] 02-09-2024 10:52-0500 Body weight 83.92 kg Ana Maria Ramirezmor MORTGAGE SALES MANAGER Work Phone: [facility] 02-09-2024 10:52-0500 Diastolic blood pressure 90 mm[Hg] Ana Maria Ramirezmor MORTGAGE SALES MANAGER Work Phone: [facility] 02-09-2024 10:52-0500 Heart rate 69 /min Ana Maria Ramirezmor MORTGAGE SALES MANAGER Work Phone: [facility] 02-09-2024 10:52-0500 Systolic blood pressure 139 mm[Hg] Ana Maria Ramirezmor MORTGAGE SALES MANAGER Work Phone: [facility] 01-06-2022 12:30-0500 Body height 177.8 cm Cj Nalini Other [employer] Other 01-06-2022 12:30-0500 Body mass index (BMI) [Ratio] 27.69 kg/m2 Cj Nalini Other [employer] Other 01-06-2022 12:30-0500 Body weight 87.54 kg Cj Gayle Other [employer] Other 09-24-2021 17:03-0400 Diastolic blood pressure 100 mm[Hg] DO Go Espinoza Work Phone: [facility] 09-24-2021 17:03-0400 Heart rate 79 /min DO Go Espinoza Work Phone: [facility] 09-24-2021 17:03-0400 Respiratory rate 16 /min DO Go Espinoza Work Phone: [facility] 09-24-2021 17:03-0400 SaO2% (BldA) [Mass fraction] 94 % DO Go Espinoza Work Phone: [facility] 09-24-2021 17:03-0400 Systolic blood pressure 156 mm[Hg] DO Go Escaleraring Work Phone: [facility] 09-24-2021 15:05-0400 Body temperature 97.1 [degF] DO Go Espinoza Work Phone: [facility] 09-24-2021 15:05-0400 Inhaled oxygen flow rate 6 L/min DO Go Escaleraring Work Phone: [facility] 09-24-2021 14:22-0400 Body height 172.72 cm DO Go Espinoza Work Phone: [facility] 09-24-2021 14:22-0400 Body mass index (BMI) [Ratio] 29.6 kg/m2 DO Go Escaleraring Work Phone: [facility] 09-24-2021 14:22-0400 Body weight 88.4 kg DO Go Espinoza Work Phone: [facility] 08-14-2021 10:45-0400 Body height 177.8 cm Nallely Parada Other [employer] Other 08-14-2021 10:45-0400 Body mass index (BMI) [Ratio] 27.55 kg/m2 Nallely Parada Other [employer] Other 08-14-2021 10:45-0400 Body temperature 97 [degF] Nallely Parada Other [employer] Other 08-14-2021 10:45-0400 Body weight 87.09 kg Nallely Parada Other [employer] Other 08-14-2021 10:45-0400 Diastolic blood pressure 84 mm[Hg] Nallely Parada Other [employer] Other 08-14-2021 10:45-0400 Respiratory rate 20 /min Nallely Parada Other [employer] Other 08-14-2021 10:45-0400 SaO2% (BldA) [Mass fraction] 98 % Nallely Parada Other [employer] Other 08-14-2021 10:45-0400 Systolic blood pressure 132 mm[Hg] Nallely Parada Other [employer] Other Encounters Encounter Date Encounter Type Care [...] Start: 05-30-2024 End: 05-30-2024 ambulatory SUMEET SWANSON Facility:[facility] Start: 05-27-2024 End: 05-27-2024 Bamboo flowsheet [...] End: 02-09-2024 Bamboo flowsheet Ana Maria Hsu MORTGAGE SALES MANAGER Work Phone: [facility] Start: 02-09-2024 End: 02-09-2024 Bamboo flowsheet Ana Maria Hsu MORTGAGE SALES MANAGER Work Phone: [facility] Start: 02-09-2024 End: 02-09-2024 Office outpatient visit 25 minutes Ana Maria Hsu MORTGAGE SALES MANAGER Work Phone: [facility] Comment on above: Seizure disorder (CM S/HCC) (Primary Dx); Frequent falls; Mental disability (CMS/HCC); Tuberous sclerosis (CMS/HCC) Start: 02-09-2024 End: 02-09-2024 ambulatory ANA MARIA HSU Not Available Start: 01-16-2024 End: 01-16-2024 Letter encounter [facility] Start: 11-10-2023 End: 11-10-2023 ambulatory SUMEET SWANSON Facility:[facility] Start: 08-19-2023 End: 08-19-2023 Lab Drop off GO ESPINOZA [facility] Start: 08-19-2023 End: 08-19-2023 ambulatory GO ESPINOZA Facility:[facility] Start: 08-06-2023 End: 08-06-2023 ambulatory ANA MARIA HSU Not Available Start: 02-25-2023 End: 02-25-2023 Lab Drop off GO ESPINOZA [facility] Start: 02-25-2023 End: 02-25-2023 ambulatory GO ESPINOZA Facility:[facility] Start: 11-12-2022 End: 11-12-2022 ambulatory GO ESPINOZA Facility:[facility] Start: 11-12-2022 End: 11-12-2022 Lab Drop off GO ESPINOZA [facility] Start: 05-27-2022 End: 05-28-[address] GO ESPINOZA Facility: Start: 04-24-2022 Letter encounter Vadim patton Start: 04-11-2022 End: 04-12-[address] OG ESPINOZA Facility:[facility] Start: 04-10-2022 End: 04-11-[address] GO ESPINOZA Facility:[facility] Start: 04-09-2022 Telephone encounter Nallely Parada [facility] Start: 04-09-2022 End: 04-09-2022 ambulatory Go Espinoza Facility:[facility] Start: 03-12-2022 End: 03-12-2022 ambulatory Go Espinoza Facility:[facility] Start: 03-12-2022 End: 03-12-2022 ambulatory DO Go Espinoza Work Phone: [facility] Work Phone: Start: 03-12-2022 End: 03-12-2022 Patient encounter procedure DO Go Espinoza Work Phone: [facility]Pet [facility] Work Phone: Start: 03-11-2022 End: 03-12-[address] GO ESPINOZA Facility: Start: 02-06-2022 End: 02-06-2022 ambulatory Nallely Parada Other [employer] Other Start: 02-06-2022 Telephone encounter Nallely Parada [facility] Start: 01-07-2022 End: 01-07-2022 ambulatory Cj Gayle Other [employer] Other Start: 01-07-2022 Telephone encounter Cj GOMES [facility] Start: 01-06-2022 Postop follow up vis it related to original px Cj REDMOND [facility] Start: 01-06-2022 End: 01-06-2022 ambulatory Cj Gayle Facility:[facility] Start: 01-06-2022 End: 01-06-2022 ambulatory DO Go Espinoza Work Phone: [facility] Work Phone: Start: 01-06-2022 End: 01-06-2022 Patient encounter procedure DO Go Espinoza Work Phone: [facility] Start: 12-04-2021 End: 12-06-2021 ambulatory UNKNOWN PROVIDER Facility:[facility] Start: 12-04-2021 End: 12-06-2021 Patient encounter procedure Ly Redmond RD Work Phone: [facility] Start: 11-22-2021 Postop follow up vis it related to original px Cj Gayle [facility] Start: 11-22-2021 End: 11-22-2021 ambulatory Cj Radhames Gayle [facility] Other Start: 11-22-2021 End: 11-22-2021 Patient encounter procedure DO Go Espinoza Work Phone: [facility] Start: 10-16-2021 Postop follow up vis it related to original px Cj Gayle [facility] Start: 10-16-2021 End: 10-16-2021 ambulatory Cj A Nalini [facility] Other Start: 10-16-2021 End: 10-16-2021 Patient encounter procedure DO Go Espinoza Work Phone: [facility] Start: 09-24-2021 End: 09-24-2021 ambulatory Cj Ricci Nalini Facility:[facility] Start: 09-24-2021 End: 09-24-2021 Admission to same day surgery center DO Go Espinoza Work Phone: [facility] [place] Start: 09-23-2021 End: 09-23-2021 ambulatory Cj Gayle Facility:[facility] Start: 09-23-2021 End: 09-23-2021 Patient encounter procedure DO Go Espinoza Work Phone: [facility] Start: 09-18-2021 End: 09-18-2021 ambulatory TRAN MORALEZ . Facility:[facility] Start: 08-14-2021 End: 08-14-2021 ambulatory Nallely Parada Other [place] [employer] Other Start: 08-14-2021 Office outpatient ne w 45 minutes Nallely Parada [facility] Start: 08-01-2021 End: 08-02-[address] GO ESPINOZA Facility:[facility] Start: 07-31-2021 End: 08-01-[address] GO ESPINOZA Facility: Start: 01-25-2021 End: 01-26-2021 ambulatory SIMI MEADOWS Facility:[facility] Start: 01-25-2021 ambulatory UNKNOWN [facility]ER [facility] Start: 09-09-2016 End: 09-09-2016 Ambulatory Robbi MILAD NICOLA [facility] Procedures Date Procedure Procedure Detail Performing [...] [facility] Start: 10-10-2025 [facility]id [facility] Start: 09-21-2024 End: 09-21-2024 Patient encounter procedure 09/21/2024 2:00 PM EDT Office Visit [facility] [address] [place] [phone] Ana Maria Hsu NP [address] [place] [address] [facility] Start: 08-04-2024 End: 08-04-2024 Patient encounter procedure [facility] [address] Start: 08-01-2024 End: 08-01-2024 Patient encounter procedure 08/01/2024 10:00 AM EDT Office Visit [facility] [address] [place] [address] Glenn Flores DPM [address] [address] Lisfranc dislocation, left, initial encounter (Primary Dx) [facility] Comment on above: Lisfranc dislocation , left, initial encounter (Primary Dx) Start: 07-11-2024 End: 07-11-2024 Patient encounter procedure 07/11/2024 9:50 AM EDT Office Visit [facility] [address] [place] [address] Glenn Flores DPM [address] [address] Lisfranc dislocation, left, initial encounter (Primary Dx) [facility] Comment on above: Lisfranc dislocation , left, initial encounter (Primary Dx) Start: 05-27-2024 End: 05-27-2024 Patient encounter procedure 05/27/2024 9:40 AM EDT Office Visit [facility] [address] [place] [address] [phone] Glenn Flores DPM [address] [address] Arrived [facility] Comment on above: Arrived Start: 05-18-2024 End: 05-18-2024 Patient encounter procedure 05/18/2024 4:00 PM EDT Office Visit [facility] [address] [place] [address] Glenn Flores DPDoyle [address] [address] Arrived [facility] Comment on above: Arrived Start: 04-15-2024 End: 04-15-2024 Patient encounter procedure 04/15/2024 9:30 AM EST Office Visit [facility] [address] [place] [address] [phone] Glenn Flores DPDoyle [address] [address] Arrived [facility] Comment on above: Arrived Start: 02-09-2024 End: 02-09-2024 Patient encounter procedure 02/09/2024 10:40 AM EST Office Visit [facility] [address] [place] [address] Ana Maria Hsu, MORTGAGE SALES MANAGER [address] [place], [place] Arrived [facility] [address] [facility] Comment on above: Arrived Start: 10-25-2023 COVID-19 Vaccine () COVID-19 Vaccine () [facility] Start: 10-25-2023 Influenza vaccination Influenza Vacc ine (#1) [facility] Start: 11-23-2021 Influenza vaccination Influenza Vacc ine (#1) [facility] Start: 10-16-2021 X-ray of right ankle XR ankle RT min 3V* [facility] Start: 10-16-2021 End: 10-16-2021 Patient encounter procedure Departed Clinical [facility] Start: 09-24-2021 [facility] [...] A (HAV) Vaccine (optional start 19+ years) [facility] Start: 01-10-1987 Hepatitis B vaccination Hepati tis B (HBV) Vaccine (1 of 3 - 19+ 3-dose series) [facility] Start: 01-10-1986 Hepatitis C screening Hepatitis C An tibody [facility] Start: 01-10-1986 Tetanus + diphtheria + acellular pertussis vaccine (product) [facility] Start: 01-10-1983 HIV screening HIV Test [facility] Start: 1970 Medicare Annual Wellness (AWV) Medicare Annual Wellness (AWV) [facility] Start: 1970 Screening for malign ant neoplasm of colon [facility] Patient referral [facility] Work Phone: Immunizations Immunization Date Immunization Notes Care Provider Zeb [facility] 12-10-2022 influenza virus vaccine, unspecified formulation Ana Maria Hsu MORTGAGE SALES MANAGER Work Phone: [facility] 06-26-2021 Pfizer (12+ yrs) SARS-COV-2 (COVID-19) vaccine, mRNA, spike protein, LNP, pres. free, 30 mcg/0.3mL dose, syeda-sucrose (AJK=513) Ly Ruy [facility] Work Phone: [facility] 12-19-2020 COVID-19 Vaccine Pfi zer - Documentation Purposes Only Nallely Parada Other [employer] Other 12-19-2020 influenza, injectabl e, quadrivalent, preservative free Ly Ruy [facility] Work Phone: [facility] 12-19-2020 influenza virus vaccine, unspecified formulation Ly Ruy [facility] Work Phone: [facility] 03-27-2020 COVID-19 Vaccine Pfi zer - Documentation Purposes Only Estebanred Parada Other [employer] Other 03-06-2020 COVID-19 Vaccine Pfi zer - Documentation Purposes Only Nallely Parada Other [facility] [employer] Other 11-30-2019 influenza, injectabl e, quadrivalent, preservative free Ly Ruy [facility] Work Phone: [facility] 12-17-2018 influenza, injectabl e, quadrivalent, preservative free Ly Ruy [facility] Work Phone: [facility] 12-02-2017 influenza, injectabl e, quadrivalent, preservative free Ly Ruy [facility] Work Phone: [facility] 01-06-2017 influenza, injectabl e, quadrivalent, contains preservative Ly Ruy [facility] Work Phone: [facility] 07-12-2015 tetanus and diphther ia toxoids, adsorbed, preservative free, for adult use (5 Lf of tetanus toxoid and 2 Lf of diphtheria toxoid) Ly Ruy RD Work Phone: [facility] 12-14-2014 influenza, injectabl e, quadrivalent, preservative free Ly Ruy RD Work Phone: [facility] 01-10-2009 novel [id number], preservative-free, injectable Ly Ruy RD Work Phone: [facility] 01-07-2008 influenza virus vaccine, whole virus Ly Ruy RD Work Phone: [facility] 12-08-2006 influenza virus vaccine, whole virus Ly Ruy RD Work Phone: [facility] 06-25-2005 tetanus and diphther ia toxoids, adsorbed, preservative free, for adult use (5 Lf of tetanus toxoid and 2 Lf of diphtheria toxoid) Ly Ruy RD Work Phone: [facility] diphtheria, tetanus toxoids and acellular pertussis vaccine, unspecified formulation Ly Ruy RD Work Phone: [facility] otqvcjb-tadkfjwsoa-p shabnam lular pertussis (BOOSTRIX) 5-2.5-18.5 LF-MCG/0.5 injection [facility] Payers Date Payer Category Payer Self-pay [id number] 2019 Dental --Stand Alone DENTAL-MEDI CAID [id number] 2019 Medicaid [id number] [id number]. [id number] 1996 Medicare [id number] 1.13.56.2.7. [id number] 1996 Medicare FFS MEDICARE [id number]. [id number] 1968 Unknown [id number] 2.16.840.1.280244.3.579.2.7 32 1968 Unknown [id number] 2.16.840.1.205855.3.579.2.7 32 1968 Unknown [id number] 2.16.840.1.742395.3.579.2.7 32 1968 Unknown [id number] 2.16.840.1.201266.3.579.2.5 93 1968 Unknown [id number] 2.16.840.1.186161.3.579.2.5 93 1968 Unknown [id number] 2.16.840.1.859794.3.579.2.5 93 1968 Unknown [id number] 2.16.840.1.818767.3.579.2.5 93 1968 Unknown [id number] 2.16.840.1.342722.3.579.2.7 27 1968 Unknown [id number] 2.16.840.1.132794.3.579.2.7 27 1968 Unknown [id number] 2.16.840.1.841706.3.579.2.7 27 1968 Unknown [id number] 2.16.840.1.364770.3.579.2.1 259 1968 Unknown [id number] 2.16.840.1.691015.3.579.2.1 259 1968 Unknown [id number] 2.16.840.1.131139.3.579.2.1 259 1968 Unknown [id number] 2.16.840.1.173401.3.579.2.1 259 1968 Unknown [id number] 2.16.840.1.252905.3.579.2.1 259 1968 Unknown [id number] 2.16.840.1.077785.3.579.2.1 259 1968 Unknown [id number] 2.16.840.1.257811.3.579.2.1 259 1968 Unknown [id number] 2.16.840.1.092106.3.579.2.1 259 1968 Unknown [id number] 2.16.840.1.676253.3.579.2.1 259 1968 Unknown [id number] 2.16.840.1.216262.3.579.2.1 259 1959 Medicaid [id number] 2.16.840.1.531939.19 1959 Medicare [id number] 2.16.840.1.682675.19 Medicare [id number] Unknown [employer] [id number] Unknown [id number] 2.16.840.1.100194.3.579.2.5 31 Unknown [id number] 2.16.840.1.059853.3.579.2.5 31 Unknown [id number] 2.16.840.1.062998.3.579.2.5 31 Unknown [id number] 2.16.840.1.003302.3.579.2.5 31 Unknown [id number] 2.16.840.1.248778.3.579.2.5 31 Unknown [id number] 2.16.840.1.245816.3.579.2.5 31 Unknown [id number] 2.16.840.1.965324.3.579.2.5 31 Unknown [id number] 2.16.840.1.567030.3.579.2.5 93 Unknown [id number] 2.16.840.1.211367.3.579.2.5 93 Unknown [id number] 2.16.840.1.259611.3.579.2.5 93 Social History Date Type Detail Facility Start: 08-06-2023 End: 07-11-2024 Sex Assigned At [facility] Start: 09-24-2021 End: 02-05-2023 Tobacco smoking status NHIS Never smoked tobacco (finding) [facility] Start: 1970 Sex Assigned At Male [facility] Tobacco smoking status MOIS Tobacco smoking consumption unknown [facility] Start: 1970 Sex Assigned At Not on file [facility] Tobacco smoking status No Smoking Status Entered [facility] Start: 03-01-2019 Sex [facility] (finding) [facility] Start: 02-05-2023 Tobacco use and exposure Smokeless [...] fracture, ankle Orthopaedic bone screw, non-bioabsorbable, non-sterile ()[id number] FDA Start: 09-24-2021 ORIF, fracture, ankle Orthopaedic bone screw, non-bioabsorbable, non-sterile ()[id number] FDA Start: 09-24-2021 ORIF, fracture, ankle Orthopaedic fixation plate, non-bioabsorbable, sterile ()[id number] FDA Start: 09-24-2021 ORIF, fracture, ankle Orthopaedic bone screw, non-bioabsorbable, non-sterile ()[id number] FDA Start: 09-24-2021 ORIF, fracture, ankle Orthopaedic bone screw, non-bioabsorbable, non-sterile ()[id number] FDA Start: 09-24-2021 ORIF, fracture, ankle Orthopaedic bone screw, non-bioabsorbable, non-sterile ()[id number] FDA Start: 09-24-2021 ORIF, fracture, ankle Orthopaedic bone screw, non-bioabsorbable, non-sterile ()[id number] FDA Start: 09-24-2021 ORIF, fracture, ankle CANCELLOUS [...] Glenn Flores DPM documented in this encounter [facility] 07-11-2024 History of Present illness Narrative Patient: [...] Glenn Flores DPM documented in this encounter [facility] 06-17-2024 History of Present illness Narrative Patient: [...] Glenn Flores DPM documented in this encounter [facility] 05-30-2024 Note HNO ID: [id number] Author: SUMEET CALI MD Service: ? Author [...] visit. Either the patient or their legal bank representative has been informed of the risks [...] anxiety, (10-14) moderate anxiety, (15-21) severe anxiety [place] Cognitive Assessment (MoCA) No data to display [...] evening, and 3 tablets at bedtime 0 rcaakeq-etvyemjns-upeywej D3 (OYSTER SHELL CALCIUM-VITAMIN D) 500 mg(1,250mg) [...] MG TAB ta (more content not included)... [facility] 05-27-2024 History of Present illness Narrative Patient: Delano Segovia : 1970 PCP: Go Espinoza MD SUBJECTIVE Patient presents today post today's history of some pain with ambulation and swelling to the dorsum of left foot but has poor historian and caregiver and patient is complaining of pain from time to time but has poor historian and is resident at [place]. He had recent CT scan at [facility] and presents today for follow-up. Allergies: Allergies [...] Glenn Flores DPM documented in this encounter [facility] 05-18-2024 History of Present illness Narrative Patient: [...] Glenn Flores DPM documented in this encounter [facility] 04-15-2024 History of Present illness Narrative [...] Glenn Flores DPM documented in this encounter [facility] 11-10-2023 Note HNO ID: [id number] Author: SUMEET CALI MD Service: ? Author [...] visit. Either the patient or their legal bank representative has been informed of the risks [...] request it faxed to them. Fax number: [phone] (direct fax). Risks and benefits of the [...] evening, and 3 tablets at bedtime 0 utalocy-mjxcrjptl-qxcfibv D3 (OYSTER SHELL CALCIUM-VITAMIN D) 500 mg(1,250mg) [...] daily. cloNIDine 0.1 (more content not included)... [facility] 08-19-2023 Evaluation + Plan note Diagnostic Tests XsnhlsnYlmO2v 08/19/23T3 Free 08/19/23Keppra Lvl 08/19/23Lamotrigine Level 08/19/[address] [facility] 02-25-2023 Evaluation + Plan note Diagnostic Tests PendingT3 Free 02/25/[address] [facility] 11-12-2022 Evaluation + Plan note Diagnostic Tests PendingPSA Screen, Total 11/12/[address] [facility] 01-06-2022 Evaluation note Encounter Date Diagnosis Assessment Notes Dec, Displaced fracture of lateral malleolus of right fibula, subsequent encounter for closed fracture with routine healing (ICD-10 - S82.61XD) Delano is here today for follow-up about 12 weeks s/p right ankle ORIF. He is doing well. He is currently residing at [facility]. There is no complaints overall. Ankle [...] Other specified postprocedural states (ICD-10 - Z98.890) [employer] Other 10-12-2022 History of Present illness Narrative* Simi Edwards DDS - 12/04/2021 11:03 AM EDT ----- Saturday, December 04, 2021 at 11:22:04 AM ----- ----- Provider: [id number] - Cris Graham -- Clinic: [place] ----- [facility], Pt is ready for tx. Pt presented with caries Radiograph taken today: none Discussed the medical necessity of the problem with the pt. Instructions given to pt. Caregiver understood the situation and is okay with medications for today. Pt will come back shouldthings get worse. Guardianship: PARENTS - Nabila (Kerri Segovia [address] [place] [address] / Email: [email or web address] Communicated with caregiver that the pt was placed on the OR list and we will call with appt. Limited exam completed by Dr. Noel STEPHENS. OR ----- Signed on Saturday, December 04, 2021 at 11:51:43 AM ----- ----- Provider: [id number] Tucker Myers DDS -- Clinic: [place] ----- documented in this [id number] Evaluation note* Encounter Date Diagnosis Assessment Notes Treatment Notes Treatment Clinical Notes Oct, Displaced fracture of lateral malleolus of right fibula, subsequent encounter for closed fracture with routine healing (ICD-10 - S82.61XD) Delano is here today for first follow-up 8 weeks s/p right ankle ORIF. He is doing well. He is currently residing at [facility]. There is no complaints overall. His [...] fracture with routine healing (ICD-10 - S82.392D) [facility] Other 08-24-2022 Evaluation note* Encounter Date Diagnosis Assessment Notes Treatment Notes Treatment Clinical Notes Sep, Displaced fracture of lateral malleolus of right fibula, subsequent encounter for closed fracture with routine healing (ICD-10 - S82.61XD) Delano is here today for first follow-up 3 weeks s/p right ankle ORIF. He is doing well. He is currently residing at [facility]. There is no complaints overall. His [...] as documented in the electronic medical record. [facility] Other 08-24-2022 NoteCast material is in place limiting evaluation. Hardware fixation involving the distal fibula with[facility] Other 07-27-2022 NotePROCEDURE: XR TIB_FIB RT 2V [...] Electronically authenticated by: SANDY DÍAZ Date: 2021-09-18 17:14[facility]07-27-2022 NotePROCEDURE: XR ANKLE RT MIN [...] Electronically authenticated by: SANDY DÍAZ Date: 2021-09-18 16:44[facility]07-27-2022 NotePROCEDURE: XR ANKLE LT MIN [...] Electronically authenticated by: SANDY DÍAZ Date: 2021-09-18 15:33[facility]06-22-2022 Evaluation note* Encounter Date Diagnosis Assessment Notes Treatment Notes Treatment Clinical Notes Jul, Pulmonary cavitary lesion (ICD-10 - J98.4) Jul, Tuberous sclerosis (ICD-10 - Q85.1) [employer] Other 12-03-2021 NoteSurgical Attestation: I have reviewed the patient's History and Physical Examination. I have personally seen and evaluated the patient, repeating narayanan portions. There is no significant interval change. Surgery is still indicated. Yes Consent reviewed and signed by patient/family: Yes Operative site verified and marked: site verified but not marked as not anatomically possible Carolyn López DDS 01/25/2021 9:50 AMThe [employer] [id number] NotePatient is vaccinated for COVID-19: Pfizer on 03/06/2020 AND 03/27/2020. Patient does not require pre-op COVID testing per current guidelines.[facility] System[facility] noteNo assessment information availableProm[facility] Work Phone: Evaluation noteNo InformationNort [employer] Other Evaluation note* Diagnosis Seizure disorder (CMS/HCC)- Primary Unspecified epilepsy without mention of intractable epilepsy Frequent falls Mental disability (CMS/HCC) Unspecified mental retardation Tuberous sclerosis (CMS/HCC) Tuberous sclerosis documented in this encounter [facility] HealthcareEvaluation note* Diagnosis Onychocryptosis- Primary Ingrowing nail Abscess of toe, right Toe pain, right Pain in soft tissues of limb documented in this encounter [facility] HealthcareEvaluation note* Diagnosis Contusion of left foot, initial encounter- Primary Onychocryptosis Ingrowing nail Toe pain, right Pain in soft tissues of limb Abscess of toe, right Venous insufficiency Unspecified venous (peripheral) insufficiency documented in this encounter [facility] HealthcareEvaluation note* Diagnosis Lisfranc dislocation, left, initial encounter- Primary documented in this encounter [facility] HealthcareEvaluation note* Diagnosis Lisfranc dislocation, left, initial encounter- Primary documented in this encounter [facility] HealthcareHistory general Narrative - Reported* Type Description Date Medical History Unspecified intellectual disabil ities Medical History autism Medical History ADHD Medical History Seizure Disorder Medical History tuberous Sclerosis [employer] Other History general Narrative - Reported* Type Description Date Medical History Unspecified intellectual disabil ities Medical History autism Medical History ADHD Medical History Seizure Disorder Medical History tuberous Sclerosis Surgical History ORIF RT lateral malleolus fx Hospitalization History see above [facility] Other Hospital course Narrative No data available for this [facility] No data available for this [facility] data available for this section [facility] Summary Purpose Family History No Family [...] section and content) DATE CREATED AUTHOR 08/19/2017 [facility] DATE CREATED AUTHOR AUTHOR'S ORGANIZ ATION 07/30/2018 [facility] DATE CREATED AUTHOR AUTHOR'S ORGANIZ ATION 12/15/2021 [facility] DATE CREATED AUTHOR AUTHOR'S ORGANIZ ATION 04/17/2022 [facility] DATE CREATED AUTHOR AUTHOR'S ORGANIZ ATION 06/01/2022 [facility] DATE CREATED AUTHOR AUTHOR'S ORGANIZ ATION 08/21/2023 [facility] DATE CREATED AUTHOR AUTHOR'S ORGANIZ ATION 08/22/2023 [facility] DATE CREATED AUTHOR AUTHOR'S ORGANIZ ATION 08/28/[address] [facility] DATE CREATED AUTHOR AUTHOR'S ORGANIZ ATION 09/10/[address] [facility] DATE CREATED AUTHOR AUTHOR'S ORGANIZ ATION 05/31/2024 [facility] DATE CREATED AUTHOR AUTHOR'S ORGANIZ ATION 08/01/2024 [facility] EPIC REASON FOR VISIT [...] Active Nallely Parada MD Attending Provider Active Cost Accounting Manager Relationship Specialty Start Date End Date Unallocated, Noms MD Marissa [address] [facility] [place] [address] PCP - General Family Medicine 02/05/23 Cost Accounting Manager Relationship Specialty Start Date End Date Go Espinoza MD [address] [employer] [address] [place] [address] PCP - General Family Medicine 02/09/24 Sue Patrick DO [address] [place] [address] Referring Physician Neurology 02/09/24 Cost Accounting Manager Relationship Specialty Start Date End Date Go Espinoza MD [address] [employer] [address] [place] [address] PCP - General Family Medicine 02/09/24 Sue Patrick DO [address] [place] [address] Referring Physician Neurology 02/09/24 Cost Accounting Manager Relationship Specialty Start Date End Date Go Espinoza MD [address] [employer] [address] [place] [address] PCP - General Family Medicine 02/09/24 Sue Patrick DO [address] [place] [address] Referring Physician Neurology 02/09/24 Cost Accounting Manager Relationship Specialty Start Date End Date Go Espinoza MD [address] [employer] [address] [place] [address] PCP - General Family Medicine 02/09/24 Sue Patrick DO [address] [place] [address] Referring Physician Neurology 02/09/24 Cost Accounting Manager Relationship Specialty Start Date End Date Go Espinoza MD [address] [employer] [address] [place] [address] PCP - General Family Medicine 02/09/24 Sue Patrick DO [address] [place] [address] Referring Physician Neurology 02/09/24 Cost Accounting Manager Relationship Specialty Start Date End Date Go Espinoza MD [address] [employer] [address] [place] [address] PCP - General Family Medicine 02/09/24 Sue Patrick DO [address] [place] [address] Referring Physician Neurology 02/09/24 Cost Accounting Manager Relationship Specialty Start Date End Date Go Espinoza MD [address] [employer] [address] [place] [address] PCP - General Family Medicine 02/09/24 Sue Patrick DO [address] [place] [address] Referring Physician Neurology 02/09/24 Goals (unrecognized section [...] BE BASED ON THE PRIMARY CLINICAL RECORDS. [facility]. provides no warranty or guarantee of the accuracy or completeness of information in this document.
--- OUTSIDE RECORDS SUMMARY | 2024-08-14 19:21 | XMS_ITS | Encounter Summary ---
Author Organization [facility] Address [address] [place] [address] Care Team Providers Care Brusher Operator Name Role Phone Go Foster Primary Care Provider [phone] Source Comments In the event this information is protected by the Federal Confidentiality of Alcohol and Drug AbusePatient Records regulations: The Federal rules restrict any use of the information to criminally investigate or prosecute any alcohol or drug abuse patient.[facility] Encounter Details Date Type Department Care Team (Late st Contact Info) Description 07/15/2021 Get Medical Advice Psychiatry [address] [place] [address] Ambrocio Romero MD [address] [facility] [address] [place] [address] Progress Note from 07/15/21 Zoom appt. Social [...] N ot on file 01/29/2020 Data from: https://www.neighborhoodatlas.medicine.[facility].edu/. Last address used for calculation Not on [...] on filedocumented in this encounter Care Teams Brusher Operator Relationship Specialty Start Date End Date Go Foster DO PCP - General 10/24/12 documented as of this encounter
--- OUTSIDE RECORDS SUMMARY | 2024-08-14 19:21 | XMS_ITS | Clinical Summary ---
Author Organization [facility] Address [address] [place] [address] Care Team Providers Care Battalion Chief Name Role Phone Go Foster MD Primary Care Provider Sue Patrick DO Unavailable [phone] Allergies Active Allergy Reactions Criticality Noted [...] EDT Office Visit [facility] [address] [place] [address] Glenn Flores DPM Lisfranc dislocation, left, initial encounter (Primary Dx) 08/01/2024 Bamboo flowsheet [facility] [address] [place] [address] Glenn Flores DPM 07/11/2024 9:50 AM EDT Office Visit [facility] [address] [place] [address] Glenn Flores DPM Lisfranc dislocation, left, initial encounter (Primary Dx) 07/11/2024 Bamboo flowsheet [facility] [address] [place] [address] Glenn Flores DPM 06/17/2024 9:50 AM EDT Office Visit [facility] [address] [place] [address] [phone] Glenn Flores DPM Lisfranc dislocation, left, initial encounter (Primary Dx) 06/17/2024 Bamboo flowsheet [facility] [address] [place] [address] Glenn Flores DPM 05/27/2024 9:40 AM EDT Office Visit [facility] [address] [place] [address] Glenn Flores DPM Lisfranc dislocation, left, initial encounter (Primary Dx) 05/27/2024 Telephone [facility] [address] [facility] [address] [place] [address] Glenn Flores DPM 05/27/2024 Bamboo flowsheet [facility] [address] [place] [address] Glenn Flores DPM 05/19/2024 Abstract [facility] [address] [place] [address] Glenn Flores DPM 05/18/2024 4:00 PM EDT Office Visit [facility] [address] [place] [address] [phone] Glenn Flores DPM Contusion of left foot, initial encounter (Primary Dx); Onychocryptosis; Toe pain, right; Abscess of toe, right; Venous insufficiency 05/18/2024 Bamboo flowsheet [facility] [address] [place] [address] Glenn Flores DPM 05/16/2024 9:00 AM EDT Office Visit [facility] [address] [place] [address] Glenn Flores DPM Onychocryptosis (Primary Dx); Toe pain, right 05/16/2024 Bamboo flowsheet [facility] [address] [place] [address] Glenn Flores DPM from Last [...] exists Insurance MEDICAID [place] MEDICARE Care Teams Battalion Chief Relationship Specialty Start Date End Date Go Foster MD [address] [place] [address] [address] [place] [address] PCP - General Family Medicine 02/09/24 Sue Patrick DO [address] [place] [address] Referring Physician Neurology 02/09/24
--- OUTSIDE RECORDS SUMMARY | 2024-08-14 19:21 | XMS_ITS | Clinical Summary ---
Author Organization [facility] Address [address] [place] [address] Care Team Providers Care Pipe Straightener Name Role Phone Foster Go Radhames OLVIO Primary Care Provider [phone] Allergies Active Allergy Reactions Criticality Noted Date [...] 05/29/2024 Travel 05/19/2024 Patient Msg Neurology [address] [place] [address] Kathy Groves, Research Coordinator Information sheet: updates [...] N ot on file 01/29/2020 Data from: https://www.neighborhoodatlas.medicine.[facility].edu/. Last address used for calculation Not on [...] EDT) Glucose 81 65 - 100 mg/dL [facility] BUN 18 10 - 25 mg/dL [facility] Creatinine 1.04 0.70 - 1.40 mg/dL [facility] Sodium 144 135 - 146 mmol/L [facility] Potassium 4.1 3.5 - 5.0 mmol/L [facility] Chloride 112(H) 98 - 110 mmol/L [facility] CO2 21(L) 23 - 32 mmol/L [facility] Anion Gap 11 0 - 15 mmol/L [facility] Calcium 8.4(L) 8.5 - 10.5 mg/dL [facility] Blood specimen (specimen) BLOOD SPECIMEN / Unknown 10/29/2012 4:44 AM EDT 10/29/2012 4:45 AM EDT us Marcelo Xie MD LABORATORY Final Result [facility] [address] [place] [address] from Last 3 Months or Most Recently Relevant to Health Maintenance Insurance [address] [place] [address] MEDICARE Member Subscriber Plan / Payer (Ef fective 1996-Present) Name:Delano Segovia Member ID:[id number] Relation to Subscriber:Self Name:Delano Segovia Subscriber ID:[id number] Payer ID:Not on file Group ID:Not on file Type:Medicare Address: [facility] [place] [id number] MEDICAID [place] Care Teams Pipe Straightener Relationship Specialty Start Date End Date Go Foster DO PCP - General 10/24/12
--- OUTSIDE RECORDS SUMMARY | 2024-08-14 19:21 | XMS_ITS | Encounter Summary ---
Author Organization [facility] Address [address] [place] [address] Care Team Providers Care Event Mgr Name Role Phone Go Foster DO Primary Care Provider Encounter Details Date Type Department Care Team (Late st Contact Info) Description 07/25/2016 Documentation Only Neurology Clinic Main [place] [address] [place] [address] Robbi Howell MD, MD [address] [facility] [address] [place] [address] Social History Tobacco Use Types Packs/Day Years [...] on filedocumented in this encounter Care Teams Event Mgr Relationship Specialty Start Date End Date Go Foster DO [address] [place] [address] PCP - General Family Medicine 06/11/16 documented as of this encounter
--- OUTSIDE RECORDS SUMMARY | 2024-08-14 19:21 | XMS_ITS | Encounter Summary ---
Author Organization [facility] Address [address] [place] [address] Care Team Providers Care Shipping Supervisor Name Role Phone Go Foster MD Primary Care Provider Sue Patrick DO Unavailable [phone] Encounter Details Date Type Department Care Team ([facility] st Contact Info) Description 05/19/2024 Abstract [facility] [address] [place] [address] Glenn Flores DPM [address] [address] Social History Tobacco Use Types [...] on filedocumented in this encounter Care Teams Shipping Supervisor Relationship Specialty Start Date End Date Go Foster MD [address] [place] [address] PCP - General Family Medicine 02/09/24 Sue Patrick DO [address] [place] [address] Referring Physician Neurology 02/09/24 documented as of this encounter
--- OUTSIDE RECORDS SUMMARY | 2024-08-14 19:21 | XMS_ITS | Patient Health Record ---
Author Organization [facility] Address [address] [place] [address] Care Team Providers Care Pathology Assistant Name Role Phone Dr. Panad Rivera Primary Care Provider [phone] Yolanda Harley Unavailable [phone] Reason For Referral No Information Encounters Encounter Location Date Provider Diagnosis [facility] [address] [place] [address] 06/01/2024 Yolanda Harley Encounter for dental examination [...] 11:20:00 AM, [address], [place], [address], Provider Name:Yolanda Harley, 09/28/2024 09:00:00 AM, [address], [place], [address], Provider Name:Yolanda Harley, 10/04/2024 10:35:00 AM, [address], [place], [address], Provider Name:Brianna Chapa , 11/29/2024 10:40:00 AM, [address], [place], [address], Insurance Providers Payer Name Payer Address Payer Phone Subscriber Number Group Number Insured Name Patient Relationship to Insured Coverage Start Date Coverage End Date DENT[place] [address] [place] [phone] [id number] ALETHEA LEI Self - patient is the insured
--- OUTSIDE RECORDS SUMMARY | 2024-08-14 19:21 | XMS_ITS | Encounter Summary ---
Author Organization [facility] Address [address] [place] [address] Care Team Providers Care Thread Tool Grinder Set Up Operator Name Role Phone Go Foster DO Primary Care Provider [phone] Source Comments In the event this information is protected by the Federal Confidentiality of Alcohol and Drug AbusePatient Records regulations: The Federal rules restrict any use of the information to criminally investigate or prosecute any alcohol or drug abuse patient.[facility] Encounter Details Date Type Department Care Team (Late st Contact Info) Description 11/23/2012 Patient Msg Medical Records [address] [place] [address] Provider, [facility] Results Social History Tobacco [...] on filedocumented in this encounter Care Teams Thread Tool Grinder Set Up Operator Relationship Specialty Start Date End Date Go Foster DO PCP - General 10/24/12 documented as of this encounter
--- OUTSIDE RECORDS SUMMARY | 2024-08-14 19:21 | XMS_ITS | Encounter Summary ---
Author Organization [facility] Address [address] [place] [address] Care Team Providers Care Mobile Developer Name Role Phone Go Foster MD Primary Care Provider [phone] Sue Patrick DO Unavailable [phone] Encounter Details Date Type Department Care Team ([facility] st Contact Info) Description 08/01/2024 Bamboo flowsheet [facility] [address] [place] [address] Glenn Flores DPM [address] [address] Social History Tobacco Use Types Packs/Day Years [...] on filedocumented in this encounter Care Teams Mobile Developer Relationship Specialty Start Date End Date Go Foster MD [address] [facility] [address] [place] [address] PCP - General Family Medicine 02/09/24 Sue Patrick DO [address] [place] [address] Referring Physician Neurology 02/09/24 documented as of this encounter
[2024-08-14 20:42] LABS: Bilirubin Urine NEGATIVE (NEGATIVE); Blood Urine MODERATE (NEGATIVE); Clarity Urine CLEAR (CLEAR); Color Urine YELLOW (YELLOW); Glucose Urine UA NEGATIVE (NEGATIVE); Ketones Urine NEGATIVE (NEGATIVE); Leukocyte Esterase Urine LARGE (NEGATIVE); Nitrite Urine NEGATIVE (NEGATIVE); Protein Urine 100 mg/dL (NEG/TRACE); Urobilinogen Urine 0.2 EU/dL (0.2-1.0)
[2024-08-14 20:46] LABS: Urine Microscopic Indicated YES
[2024-08-14 20:53] LABS: WBC Urine 75-100 #/HPF (NONE SEEN)
[2024-08-14 20:54] LABS: Bacteria Urine LARGE #/HPF (NONE SEEN); Cast Seen? NONE SEEN #/LPF (NONE SEEN); Crystals Seen? None Seen #/HPF (None Seen); Mucus Urine NONE SEEN (NONE SEEN); RBC Urine NONE SEEN #/HPF (0-2); Squamous Epithelial Cell Urine NONE SEEN #/LPF (NONE/RARE); Urine Culture Indicated YES-FRMC
== END 2024-08-14 19:18 | disposition home or self-care (01) ==
LOC: LAB 19:17
PROVIDERS: PCP Family Medicine; Visit Provider Family Medicine
DX: R53.1 Weakness (principal); R41.0 Disorientation, unspecified; R63.0 Anorexia
CPT/HCPCS: 81001; 87086

== ENCOUNTER 2024-08-16 16:26 | Emergency (ER) | payer MEDICARE, MEDICAID, SELFPAY ==
[2024-08-16] VITALS (42 sets, daily range): BP systolic 136–141; BP diastolic 73–80; PULSE 62–93; TEMP 37; O2SAT 96; BMI 27.1
--- OUTSIDE RECORDS SUMMARY | 2024-08-16 16:38 | XMS_ITS | Clinical Summary ---
Author Organization [facility] Address [address] [place] [address] Care Team Providers Care Living Skills Advisor Name Role Phone Foster Go Radhames OLIVO [...] 05/29/2024 Travel 05/19/2024 Patient Msg Neurology [address] [place] [address] Kathy Groves, Research Coordinator Information sheet: updates [...] N ot on file 01/29/2020 Data from: https://www.neighborhoodatlas.medicine.[facility].edu/. Last address used for calculation Not on [...] EDT) Glucose 81 65 - 100 mg/dL [facility] BUN 18 10 - 25 mg/dL [facility] Creatinine 1.04 0.70 - 1.40 mg/dL [facility] Sodium 144 135 - 146 mmol/L [facility] Potassium 4.1 3.5 - 5.0 mmol/L [facility] Chloride 112(H) 98 - 110 mmol/L [facility] CO2 21(L) 23 - 32 mmol/L [facility] Anion Gap 11 0 - 15 mmol/L [facility] Calcium 8.4(L) 8.5 - 10.5 mg/dL [facility] Blood specimen (specimen) BLOOD SPECIMEN / Unknown 10/29/2012 4:44 AM EDT 10/29/2012 4:45 AM EDT us Marcelo Xie MD LABORATORY Final Result [facility] [address] [place] [address] from Last 3 Months or Most Recently Relevant to Health Maintenance Insurance [address] [place] [address] MEDICARE Member Subscriber Plan / Payer (Ef fective 1996-Present) Name:Delano Segovia Member ID:[id number] Relation to Subscriber:Self Name:Delano Segovia Subscriber ID:[id number] Payer ID:Not on file Group ID:Not on file Type:Medicare Address: [facility] [id number] MEDICAID [place] Care Teams Living Skills Advisor Relationship Specialty Start Date End Date Go Foster DO PCP - General 10/24/12
--- OUTSIDE RECORDS SUMMARY | 2024-08-16 16:38 | XMS_ITS | Encounter Summary ---
Author Organization [facility] Address [address] [place] [address] Care Team Providers Care Rn Angiography Name Role Phone Go Foster Primary Care Provider [phone] Source Comments In the event this information is protected by the Federal Confidentiality of Alcohol and Drug AbusePatient Records regulations: The Federal rules restrict any use of the information to criminally investigate or prosecute any alcohol or drug abuse patient.[facility] Encounter Details Date Type Department Care Team (Late st Contact Info) Description 01/08/2022 Get Medical Advice Psychiatry [address] [place] [address] Ambrocio Romero MD [address] [facility] [address] [place] [address] Televisit today for Delano Segovia Social History [...] N ot on file 01/29/2020 Data from: https://www.neighborhoodatlas.medicine.[facility].edu/. Last address used for calculation Not [...] on filedocumented in this encounter Care Teams Rn Angiography Relationship Specialty Start Date End Date Go Foster DO PCP - General 10/24/12 documented as of this encounter
--- OUTSIDE RECORDS SUMMARY | 2024-08-16 16:38 | XMS_ITS | Encounter Summary ---
Author Organization [facility] Address [address] [place] [address] Care Team Providers Care Warper Tender Name Role Phone Go Foster Primary Care Provider [phone] Source Comments In the event this information is protected by the Federal Confidentiality of Alcohol and Drug AbusePatient Records regulations: The Federal rules restrict any use of the information to criminally investigate or prosecute any alcohol or drug abuse patient.[facility] Encounter Details Date Type Department Care Team (Late st Contact Info) Description 05/19/2024 Patient Msg Neurology [address] [place] [id number] Kathy Groves, Research Coordinator Information sheet: updates for [facility] Natural History Database Social History Tobacco Use [...] N ot on file 01/29/2020 Data from: https://www.neighborhoodatlas.[facility]/. Last address used for calculation Not [...] on filedocumented in this encounter Care Teams Warper Tender Relationship Specialty Start Date End Date Go Foster DO PCP - General 10/24/12 documented as of this encounter
--- OUTSIDE RECORDS SUMMARY | 2024-08-16 16:38 | XMS_ITS | Encounter Summary ---
Author Organization [facility] Address [address] [place] [address] Care Team Providers Care Asbestos Textile Supervisor Name Role Phone Go Foster Primary Care Provider [phone] Source Comments In the event this information is protected by the Federal Confidentiality of Alcohol and Drug AbusePatient Records regulations: The Federal rules restrict any use of the information to criminally investigate or prosecute any alcohol or drug abuse patient.[facility] Encounter Details Date Type Department Care Team (Late st Contact Info) Description 01/31/2021 Get Medical Advice Psychiatry [address] [place] [address] Ambrocio Romero MD [address] [facility] [address] [place] [address] Visit progress note and next appointment Social [...] on filedocumented in this encounter Care Teams Asbestos Textile Supervisor Relationship Specialty Start Date End Date Go Foster DO PCP - General 10/24/12 documented as of this encounter
--- OUTSIDE RECORDS SUMMARY | 2024-08-16 16:38 | XMS_ITS | Encounter Summary ---
Author Organization [facility] Address [address] [place] [address] Care Team Providers Care Lease Buyer Name Role Phone Go Foster Primary Care Provider [phone] Source Comments In the event this information is protected by the Federal Confidentiality of Alcohol and Drug AbusePatient Records regulations: The Federal rules restrict any use of the information to criminally investigate or prosecute any alcohol or drug abuse patient.[facility] Encounter Details Date Type Department Care Team (Late st Contact Info) Description 07/15/2021 Get Medical Advice Psychiatry [address] [place] [address] Ambrocio Romero MD [address] [facility] [address] [place] [address] Progress Note from 07/15/21 Zoom appt. Social [...] on file 01/29/2020 Data from: https://www.neighborhoodatlas.medicine.[facility].edu/. Last address used for calculation [...] on filedocumented in this encounter Care Teams Lease Buyer Relationship Specialty Start Date End Date Go Foster DO PCP - General 10/24/12 documented as of this encounter
--- OUTSIDE RECORDS SUMMARY | 2024-08-16 16:38 | XMS_ITS | Clinical Summary ---
Author Organization [facility] Address [address] [place] [address] Care Team Providers Care Conservation Science Officer Name Role Phone Go Foster MD Primary Care Provider Sue Patrick DO Unavailable [phone] Allergies Active Allergy Reactions Criticality Noted [...] EDT Office Visit [facility] [address] [place] [address] Glenn Flores DPM Lisfranc dislocation, left, initial encounter (Primary Dx) 08/01/2024 Bamboo flowsheet [facility] [address] [place] [address] Glenn Flores DPM 07/11/2024 9:50 AM EDT Office Visit [facility] [address] [place] [address] Glenn Flores DPM Lisfranc dislocation, left, initial encounter (Primary Dx) 07/11/2024 Bamboo flowsheet [facility] [address] [place] [address] Glenn Flores DPM 06/17/2024 9:50 AM EDT Office Visit [facility] [address] [place] [address] [phone] Glenn Flores DPM Lisfranc dislocation, left, initial encounter (Primary Dx) 06/17/2024 Bamboo flowsheet [facility] [address] [place] [address] Glenn Flores DPM 05/27/2024 9:40 AM EDT Office Visit [facility] [address] [place] [address] Glenn Flores DPM Lisfranc dislocation, left, initial encounter (Primary Dx) 05/27/2024 Telephone [facility] [address] [facility] [address] [place] [phone] Glenn Flores DPM 05/27/2024 Bamboo flowsheet [facility] [address] [place] [address] Glenn Flores DPM 05/19/2024 Abstract [facility] [address] [place] [address] Glenn Flores DPM 05/18/2024 4:00 PM EDT Office Visit [facility] [address] [place] [address] [phone] Glenn Flores DPM Contusion of left foot, initial encounter (Primary Dx); Onychocryptosis; Toe pain, right; Abscess of toe, right; Venous insufficiency 05/18/2024 Bamboo flowsheet [facility] [address] [place] [address] Glenn Flores DPM 05/16/2024 9:00 AM EDT Office Visit [facility] [address] [place] [address] Glenn Flores DPM Onychocryptosis (Primary Dx); Toe pain, right 05/16/2024 Bamboo flowsheet [facility] [address] [place] [address] Glenn Flores DPM from Last [...] exists Insurance MEDICAID [place] MEDICARE Care Teams Conservation Science Officer Relationship Specialty Start Date End Date Go Foster MD [address] [place] [address] [address] [place] [address] PCP - General Family Medicine 02/09/24 Sue Patrick DO [address] [place] [address] Referring Physician Neurology 02/09/24
--- OUTSIDE RECORDS SUMMARY | 2024-08-16 16:38 | XMS_ITS | Encounter Summary ---
Author Organization [facility] Address [address] [place] [address] Care Team Providers Care Precision Aircraft Structure Assembler Name Role Phone Go Foster DO Primary Care Provider [phone] Source Comments In the event this information is protected by the Federal Confidentiality of Alcohol and Drug AbusePatient Records regulations: The Federal rules restrict any use of the information to criminally investigate or prosecute any alcohol or drug abuse patient.[facility] Encounter Details Date Type Department Care Team (Late st Contact Info) Description 11/23/2012 Patient Msg Medical Records [address] [place] [address] Provider, [facility] Results Social History Tobacco [...] on filedocumented in this encounter Care Teams Precision Aircraft Structure Assembler Relationship Specialty Start Date End Date Go Foster DO PCP - General 10/24/12 documented as of this encounter
--- OUTSIDE RECORDS SUMMARY | 2024-08-16 16:38 | XMS_ITS | Clinical Summary ---
Author Organization [email or web address] tem Address [id number] [address] [place] [address] Care Team Providers Care Wallpaper Embosser Helper Name Role Phone FosterGo Radhames OLIVO Primary [...] ID:Not on file Type:Not on file Address: [address] [id number] MEDICARE Care Teams Wallpaper Embosser Helper Relationship Specialty Start Date End Date Go Foster DO [address] [place] [address] PCP - General 07/17/16
--- OUTSIDE RECORDS SUMMARY | 2024-08-16 16:38 | XMS_ITS | Encounter Summary ---
Author Organization [facility] Address [address] [place] [address] Care Team Providers Care Woodworking Machine Setter Name Role Phone Go Foster Primary Care Provider [phone] Source Comments In the event this information is protected by the Federal Confidentiality of Alcohol and Drug AbusePatient Records regulations: The Federal rules restrict any use of the information to criminally investigate or prosecute any alcohol or drug abuse patient.[facility] Encounter Details Date Type Department Care Team (Late st Contact Info) Description 07/23/2021 Get Medical Advice Psychiatry [address] [place], [place] [id number] Ambrocio Romero MD [address] [facility] [address] [place], [place] [id number] Need for medical record of televisit on [...] N ot on file 01/29/2020 Data from: https://www.neighborhoodatlas.medicine.[facility].edu/. Last address used for calculation Not [...] on filedocumented in this encounter Care Teams Woodworking Machine Setter Relationship Specialty Start Date End Date Go Foster DO PCP - General 10/24/12 documented as of this encounter
--- OUTSIDE RECORDS SUMMARY | 2024-08-16 16:38 | XMS_ITS | Clinical Summary ---
Author Organization [facility] Address [address] [place] [address] Care Team Providers Care Facing Grinder Name Role Phone Go Foster DO Primary [...] patient's age to complete this topic Insurance [place] Care Teams Facing Grinder Relationship Specialty Start Date End Date Go Foster DO [address] [place] [address] PCP - General Family Medicine 06/11/16
--- OUTSIDE RECORDS SUMMARY | 2024-08-16 16:38 | XMS_ITS | Encounter Summary ---
Author Organization [facility] Address [address] [address] Care Team Providers Care Skirt Panel Assembler Name Role Phone Go Foster DO Primary Care Provider [phone] Encounter Details Date Type Department Care Team (Late st Contact Info) Description 07/25/2016 Documentation Only Neu[facility] [place] [address] [place] [address] Robbi Howell MD, MD [address] [facility] [address] [place] [address] Social History Tobacco Use Types Packs/Day Years [...] on filedocumented in this encounter Care Teams Skirt Panel Assembler Relationship Specialty Start Date End Date Go Foster DO [address] [place] [address] PCP - General Family Medicine 06/11/16 documented as of this encounter
--- OUTSIDE RECORDS SUMMARY | 2024-08-16 16:38 | XMS_ITS | Encounter Summary ---
Author Organization [facility] Address [address] [place] [address] Care Team Providers Care Service Line Coordinator Name Role Phone Go Foster MD Primary Care Provider Sue Patrick DO Unavailable [phone] Encounter Details Date Type Department Care Team ([facility] st Contact Info) Description 05/19/2024 Abstract [facility] [address] [place] [address] Glenn Flores DPM [address] [address] Social History Tobacco Use Types [...] on filedocumented in this encounter Care Teams Service Line Coordinator Relationship Specialty Start Date End Date Go Foster MD [address] [employer] [address] [place] [address] PCP - General Family Medicine 02/09/24 Sue Patrick DO [address] [place] [address] Referring Physician Neurology 02/09/24 documented as of this encounter
--- OUTSIDE RECORDS SUMMARY | 2024-08-16 16:38 | XMS_ITS | Patient Health Record ---
Author Organization [facility] es Address [address] [place] [address] Care Team Providers Care Manager Social Media Name Role Phone Dr. Panda Rivera Primary Care Provider [phone] Yolanda Harley Unavailable [phone] Reason For Referral No Information Encounters Encounter Location Date Provider Diagnosis [facility] [address] [place] [address] 06/01/2024 Yolanda Harley Encounter for dental examination [...] 11:20:00 AM, [address], [place], [address], Provider Name:Yolanda Harley, 09/28/2024 09:00:00 AM, [address], [place], [address], Provider Name:Yolanda Harley, 10/04/2024 10:35:00 AM, [address], [place], [address], Provider Name:Brianna Chapa , 11/29/2024 10:40:00 AM, [address], [place], [address], Insurance Providers Payer Name Payer Address Payer Phone Subscriber Number Group Number Insured Name Patient Relationship to Insured Coverage Start Date Coverage End Date DENT[place] [address] [place] [id number] [id number] ALETHEA LEI Self - patient is the insured
--- NOTE | 2024-08-16 16:40 | ECG_ITS ---
[facility] Test Date: 2024-08-16 Pat Name: ALETHEA LEI Department: Room: - Gender: Male [employer] Lead: : 1970 Requested By: 1030 Order Number: [id number] Reading MD: JOE SANDERS M.D. Measurements Intervals Emerson Rate: 62 P: 50 MD: 188 QRS: 52 QRSD: 110 T: 57 QT: 398 QTc: 402 Interpretive Statements 1100 Sinus rhythm 9110 normal ECG Compared to ECG 11/17/2023 12:58:39 No significant changes Electronically Signed On 08-16-2024 22:00:21 EDT by JOE SANDERS M.D.
--- NOTE | 2024-08-16 16:41 | ED.GENADUL1 ---
HPI HPI - General Adult General Chief complaint: Altered Mental Status Stated complaint: alter mental status Time Seen by Provider: 08/16/24 16:35 Source: medical record Mode of arrival: ambulance Limitations: altered mental status History of Present Illness HPI narrative: 54-year-old male presents from [facility] for urine culture. He is unable to provide us any history. According to the paramedics he has been acting himself for a few days. No caregivers are present to give us a baseline. He reportedly had a positive urine culture as well and he was sent here because of that issue. Related Data Home Medications ?Medication ?Instructions ?Recorded ?Confirmed oxcarbazepine 600 mg tablet 600 mg PO BID 08/21/22 07/14/23 Held on 07/14/23. Instructions: dc paroxetine HCl 40 mg tablet 60 mg PO DAILY 08/21/22 07/14/23 Held on 07/14/23. Instructions: dc atorvastatin 40 mg tablet 40 mg PO DAILY 07/14/23 07/14/23 benztropine 1 mg tablet 1 mg PO TID 07/14/23 07/14/23 clonidine HCl 0.1 mg tablet 0.1 mg PO Q8H 07/14/23 07/14/23 docusate sodium 100 mg capsule 100 mg PO TID 07/14/23 07/14/23 fluocinonide 0.05 % topical topical .weekly 07/14/23 solution haloperidol 5 mg tablet 10 mg PO .evening 07/14/23 07/14/23 Allergies Allergy/AdvReac Type Severity Reaction Status Date / Time Pertussis Vaccines Allergy Unknown Verified 07/19/24 23:48 Opioid HPI Opioid Management Most Recent Opioid Data: Last Pain Scale 0 Today, 16:31 Review of Systems ROS Narrative Not obtainable [facility] Social History Smoking status: Never smoker Exam Narrative Exam Narrative: Nurses note and vital signs reviewed and patient is not hypoxic. General: The patient appears in no acute respiratory distress. Skin: Warm, dry, no pallor noted. There is no rash noted. Head: Normocephalic, atraumatic Eye: Normal conjunctiva, no drainage Ears, Nose, Mouth, and Throat: oral mucosa is moist. Nares patent. Cardiovascular: Regular Rate and Rhythm Respiratory: Patient is in no distress, no accessory muscle use, lungs are clear to auscultation, no wheezing, rales or rhonchi Back: non-tender GI: Soft and nontender Musculoskeletal: The patient has no evidence of calf tenderness, no pitting edema, symmetrical pulses noted bilaterally Neurological: Nonverbal. Psychiatric: Cannot be assessed Constitutional Vital Signs, click to edit/add: Last Vital Signs Temp 98.6 F 08/16/24 16:31 Pulse 67 08/16/24 18:20 Resp 16 08/16/24 18:20 BP 141/73 08/16/24 18:16 Pulse Ox 96 08/16/24 16:31 O2 Del Method Room Air 08/16/24 16:31 Course Vital Signs Vital signs: Vital Signs Temperature 98.6 F 08/16/24 16:31 Pulse Rate 73 08/16/24 16:31 Respiratory Rate 20 08/16/24 16:31 Blood Pressure 136/80 08/16/24 16:31 Pulse Oximetry 96 08/16/24 16:31 Oxygen Delivery Method Room Air 08/16/24 16:31 Temperature 98.6 F 08/16/24 16:31 Pulse Rate 67 08/16/24 18:20 Respiratory Rate 16 08/16/24 18:20 Blood Pressure 141/73 08/16/24 18:16 Pulse Oximetry 96 08/16/24 16:31 Oxygen Delivery Method Room Air 08/16/24 16:[address] [facility] Narrative Medical decision making narrative: UTI is identified and IV Rocephin was ordered as well as blood cultures. Potassium was 6.5 and the patient was given D50 and insulin. BUN and creatinine are elevated above his baseline. The patient is signed out to Dr. Carrillo at change of shift. Differential Diagnosis Differential Diagnosis: UTI, pneumonia, intracranial hemorrhage, acute kidney injury Lab Data Lab results reviewed: Yes I reviewed the patient's lab results Labs: Lab Results 08/16/24 08/16/24 08/16/24 Range/Units 17:40 18:10 18:16 WBC 6.5 (4.0-11.0) 10^3/uL RBC 3.17 L (4.70-6.10) 10^6/uL Hgb 10.7 L (14.0-18.0) g/dL Hct 31.9 L (42.0-54.0) % MCV 100.6 H (80.0-94.0) fL MCH 33.8 (25.9-34.0) pg MCHC 33.5 (29.9-35.2) g/dL RDW 12.9 (11.0-15.0) % Plt Count 206 (150-450) 10^3/uL MPV 9.7 (9.5-13.5) fL Neut % (Auto) 53.4 (43.0-75.0) % Lymph % (Auto) 22.2 (20.5-60.0) % Clay % (Auto) 21.9 H (1.7-12.0) % Eos % (Auto) 1.4 (0.9-7.0) % Baso % (Auto) 0.5 (0.2-2.0) % Neut # (Auto) 3.5 (1.4-6.5) 10^3/uL Lymph # (Auto) 1.4 (1.2-3.8) 10^3/uL Clay # (Auto) 1.4 H (0.3-0.8) 10^3/uL Eos # (Auto) 0.1 (0.0-0.7) 10^3/uL Baso # (Auto) 0.0 (0.0-0.1) 10^3/uL Abs Immat Gran (auto) 0.04 H (0.00-0.03) 10^3/uL Imm/Tot Granulo (auto) 0.6 H (0.0-0.5) % Sodium 135 L (136-145) mmol/L Potassium 6.5 H* (3.5-5.1) mmol/L Chloride 106 (98-107) mmol/L Carbon Dioxide 19.0 L (21.0-32.0) mmol/L Anion Gap 16.5 BUN 50.0 H (7.0-18.0) mg/dL Creatinine 2.42 H (0.70-1.30) mg/dL Est GFR ( Amer) 34 L (>=60 mL/min/1.73m^2) Est GFR (Non-Af Amer) 28 L (>=60 mL/min/1.73m^2) BUN/Creatinine Ratio 20.7 Glucose 114 H (74-106) mg/dL Lactate 3.8 H* (0.4-2.0) mmol/L Calcium 8.8 (8.5-10.1) mg/dL Urine Color Lt yellow (YELLOW) Urine Clarity Cloudy A (CLEAR) Urine pH 6.0 (5.0-9.0) Ur Specific [place] 1.015 (1.005-1.025) Urine Protein 100 A (NEG/TRACE) mg/dL Urine Glucose (UA) Negative (NEGATIVE) mg/dL Urine Ketones Negative (NEGATIVE) mg/dL Urine Occult Blood Moderate A (NEGATIVE) Urine Nitrite Negative (NEGATIVE) Urine Bilirubin Negative (NEGATIVE) Urine Urobilinogen 0.2 (0.2-1.0) EU/dL Ur Leukocyte Esterase Large A (NEGATIVE) Urine RBC 10-20 A (0-2) #/HPF Urine WBC >100 A (NONE SEEN) #/HPF Ur Squamous Epith Cells Rare (NONE/RARE) #/LPF Urine Crystals None seen (None Seen) #/HPF Urine Bacteria Large A (NONE SEEN) #/HPF Urine Casts None seen (NONE SEEN) #/LPF Urine Mucus None seen (NONE SEEN) Ur Culture Indicated? [place] [place] Chest x-ray: Radiologist's impression: ITS Impressions Head CT 08/16/24 17:13 IMPRESSION: NO ACUTE INTRACRANIAL ABNORMALITY. RIGHT NASAL BONE FRACTURE, AGE INDETERMINATE. Impression dictated by: Tony Marroquin M.D. 08/16/2024 5:41 PM Dictation Location: [place] [address] Electronically authenticated by: [id number] Y Date: 08/16/2024 17:41 Chest x-ray shows no acute findings per radiologist ECG Data Attestation: I personally reviewed and interpreted this ECG as follows: (EKG on my interpretation shows normal sinus rhythm with no acute change. No peaked T waves present.) Critical Care Time Critical Care Time Critical Care Time: Yes Total Critical Care Time: 40 Attestation: Due to the high probability of sudden and clinically significant deterioration in the patient's condition he/she required the highest level of my preparedness to intervene urgently I provided critical care time including documentation time, medication orders and management, reevaluation, vital sign assessment, ordering and reviewing of lab tests, ordering and reviewing of x-ray studies, and admission orders. Aggregate critical care time is 40 minutes including only time during which I was engaged in work directly related to his/her care and did not include time spent treating other patients simultaneously. Discharge Plan Discharge Patient Disposition: Still a Patient
--- NOTE | 2024-08-16 17:13 | XR_ITS ---
The [address] [address] Patient Name: ALETHEA LEI MRN: [id number] date: 1970 Sex: M Assigned Patient Location: ED.MAIN Current Patient Location: ED.MAIN Accession/Order Number: [id number] Exam Date: 08/16/2024 17:36 Report Date: 08/16/2024 17:37 At the request of: JODI HILLS MD Procedure: XR chest 1V PA CHEST: CLINICAL HISTORY: Altered mental status COMPARISON: 09/18/2021 Mildly prominent cardiomediastinal silhouette likely due to hypoventilatory change. Otherwise negative for acute pleural or parenchymal disease. IMPRESSION: NEGATIVE ACUTE PLEURAL-PARENCHYMAL DISEASE Impression dictated by: Tony Marroquin M.D. 08/16/2024 5:37 PM Dictation Location: [place] [address] Electronically authenticated by: [id number] Y Date: 08/16/2024 17:37
--- NOTE | 2024-08-16 17:13 | CT_ITS ---
The [address] [address] Patient Name: ALETHEA LEI MRN: [id number] date: 1970 Sex: M Assigned Patient Location: ED.MAIN Current Patient Location: ED.MAIN Accession/Order Number: [id number] Exam Date: 08/16/2024 17:37 Report Date: 08/16/2024 17:41 At the request of: JODI HILLS MD Procedure: CT head/brain wo con CT BRAIN WITHOUT CONTRAST: CLINICAL HISTORY: Altered mental status COMPARISON: 07/20/2024 TECHNIQUE: Contiguous axial unenhanced images were obtained through the brain. This CT exam was performed using one or more following dose reduction techniques: Automated exposure control, adjustment of the mA and/or kV according to patient size, or use of iterative reconstruction technique. FINDINGS: There is no evidence of midline shift, intra or extra-axial fluid collection, hemorrhage or CT evidence of of acute large vascular distribution stroke. Stable multifocal dystrophic calcifications involving the brain parenchyma. Visualized intraorbital contents appear unremarkable. Visualized paranasal sinuses are clear. Right nasal bone bone fracture, age-indeterminate. The surrounding soft tissues are normal. CT/CT head/brain wo con IMPRESSION: NO ACUTE INTRACRANIAL ABNORMALITY. RIGHT NASAL BONE FRACTURE, AGE INDETERMINATE. Impression dictated by: Tony Marroquin M.D. 08/16/2024 5:41 PM Dictation Location: [place] [address] Electronically authenticated by: [id number] Y Date: 08/16/2024 17:41
[2024-08-16 18:03] LABS: Basophils Percent Auto 0.5 % (0.2-2.0); Eosinophils Absolute Auto 0.1 10^3/uL (0.0-0.7); Eosinophils Percent Auto 1.4 % (0.9-7.0); Hematocrit 31.9 % (42.0-54.0); Hemoglobin 10.7 g/dL (14.0-18.0); Immature Granulocytes Abs Auto 0.04 10^3/uL (0.00-0.03); Immature Granulocytes Pct Auto 0.6 % (0.0-0.5); Lymphocytes Absolute Auto 1.4 10^3/uL (1.2-3.8); Lymphocytes Percent Auto 22.2 % (20.5-60.0); Mean Corpuscular HGB Conc 33.5 g/dL (29.9-35.2); Mean Corpuscular Hemoglobin 33.8 pg (25.9-34.0); Mean Corpuscular Volume 100.6 fL (80.0-94.0); Mean Platelet Volume 9.7 fL (9.5-13.5); Monocytes Absolute Auto 1.4 10^3/uL (0.3-0.8); Monocytes Percent Auto 21.9 % (1.7-12.0); Neutrophils Absolute Auto 3.5 10^3/uL (1.4-6.5); Neutrophils Percent Auto 53.4 % (43.0-75.0); Platelet Count 206 10^3/uL (150-450); Red Blood Count 3.17 10^6/uL (4.70-6.10); Red Cell Distribution Width 12.9 % (11.0-15.0); White Blood Count 6.5 10^3/uL (4.0-11.0)
[2024-08-16 18:09] LABS: Anion Gap 16.5; BUN Creatinine Ratio 20.7; Calcium 8.8 mg/dL (8.5-10.1); Chloride 106 mmol/L (98-107); Estimated GFR (African America 34 (>=60 mL/min/1.73m^2); Estimated GFR (Non-African Ame 28 (>=60 mL/min/1.73m^2); Glucose 114 mg/dL (74-106); Sodium 135 mmol/L (136-145)
[2024-08-16 18:13] LABS: Potassium 6.5 mmol/L (3.5-5.1)
--- NOTE | 2024-08-16 18:20 | PC.NURSE ---
Pt presents to ER from [facility] for altered mental status Per staff patient has been frequently cofused about where he is or who his staff and other residents are which is not normal for him Staff also reports patient has been unsteady on his feet which is also atypical for him and increasingly fatigued Pt responds appropriately to stimuli and follows commands well Pt is a very difficult stick, numerous attempts made for IV placement as well a labwork Labwork was eventually obtained, a urine was collected, pt placed on quality assurance monitor body Pts staff from facility remains at bedside
[2024-08-16 18:26] LABS: Bilirubin Urine NEGATIVE (NEGATIVE); Blood Urine MODERATE (NEGATIVE); Clarity Urine CLOUDY (CLEAR); Glucose Urine UA NEGATIVE (NEGATIVE); Ketones Urine NEGATIVE (NEGATIVE); Leukocyte Esterase Urine LARGE (NEGATIVE); Nitrite Urine NEGATIVE (NEGATIVE); Protein Urine 100 mg/dL (NEG/TRACE); Specific Gravity Urine 1.015 (1.005-1.025); Urobilinogen Urine 0.2 EU/dL (0.2-1.0)
[2024-08-16 18:29] LABS: Color Urine LT YELLOW (YELLOW)
[2024-08-16 18:41] LABS: Lactate/Lactic Acid 3.8 mmol/L (0.4-2.0)
[2024-08-16 18:41] LABS: Bacteria Urine LARGE #/HPF (NONE SEEN); WBC Urine >100 #/HPF (NONE SEEN)
[2024-08-16 18:42] LABS: Cast Seen? NONE SEEN #/LPF (NONE SEEN); Crystals Seen? None Seen #/HPF (None Seen); Mucus Urine NONE SEEN (NONE SEEN); Squamous Epithelial Cell Urine RARE #/LPF (NONE/RARE); Urine Culture Indicated YES-FRMC
[2024-08-16] MEDS: CEFTRIAXONE 1,000 MG in 0.9 % SODIUM CHLORIDE 50 ML 100 MG IV (19:09)
[2024-08-16] MEDS: 0.9 % SODIUM CHLORIDE 1,000 ML 1000 ML IV ×2 (19:09→21:47)
[2024-08-16] MEDS: INSULIN REGULAR, HUMAN (100 UNIT/ML) 10 ML MDV 10 UNIT IV (19:10)
[2024-08-16] MEDS: DEXTROSE 50 %-WATER 25 GM/50 ML SYRINGE IV (19:10)
[2024-08-16] MEDS: SODIUM ZIRCONIUM CYCLOSILICATE 10 GM POWD.PACK PO (21:44)
[2024-08-16] MEDS: CALCIUM GLUCONATE 1,000 MG/10 ML VIAL 1000 MG IVP (21:44)
[2024-08-16] MEDS: SODIUM BICARBONATE 150 MEQ in DEXTROSE 5 % IN WATER 1,000 ML 100 MEQ IV (21:45)
[2024-08-16] MEDS: LORAZEPAM 0.5 MG TABLET 1 MG PO (22:10)
[2024-08-16] MEDS: DIPHENHYDRAMINE HCL 50 MG/ML VIAL 25 MG IVP (22:20)
[2024-08-16] MEDS: HALOPERIDOL LACTATE 5 MG/ML VIAL 2 MG IV (22:20)
[2024-08-16] MEDS: ALBUTEROL SULFATE 2.5 MG/3 ML VIAL NEB IH (23:39)
[2024-08-17] VITALS: BP 142/81; O2SAT 97
--- NOTE | 2024-08-17 00:38 | PC.NURSE ---
Patient had been sleeping and was woken by this RN to attempt to draw lab work and start a second IV. He was cooperative for the attempts, however the attempts were unsuccessful. Both myself and the color paste mixing supervisor tried to obtain blood and neither of us were successful. Patient then became very upset and began screaming out that he wanted to go home, that he wanted to be done with all of this, that he missed his mom and dad, and that he didn't want to stay here. He continued to become more agitated and scream out louder, he was becoming unsafe trying to get out of the bed and pulling on his IV tubing. Dr. Carrillo ordered oral Ativan which was given but was not effective, then IV Benadryl and Haldol were administered. There was a 1 on 1 staff member at the bedside to keep the patient safe and protect his IV access. He eventually did become more calm and was able to fall back to sleep.
== END 2024-08-17 00:10 | disposition short-term general hospital (02) ==
PROVIDERS: Emergency Medicine; Emergency Provider Emergency Medicine; PCP Family Medicine
DX: N17.9 Acute kidney failure, unspecified (principal); N39.0 Urinary tract infection, site not specified; E87.5 Hyperkalemia; N18.9 Chronic kidney disease, unspecified; F79 Unspecified intellectual disabilities
CPT/HCPCS: 36415; 70450; 71045; 80048; 81001; 83605; 85025; 87040; 87086; 93005; 94640; 96365; 96366; 96367; 96375; 99285; J0612; J0696; J1200; J1630; J1817

== ENCOUNTER 2024-08-24 06:32 | Outpatient (OUT) | payer MEDICARE, MEDICAID, SELFPAY ==
--- OUTSIDE RECORDS SUMMARY | 2024-05-02 06:00 | XMS_ITS ---
Author Organization [facility] Address [address] [address] Care Team Providers Care Harvest Worker Fruit Name Role Phone Dr. aPnda Rivera Primary Care Provider REASON FOR VISIT MACHINE SPRAYER EXAM Encounters Encounter Location Date Provider Diagnosis [facility] [address] [place] [address] 05/02/2024 Panda Rivera Plan Of Treatment Next Appt Details Provider Name:Yolanda Harley, 09/20/2024 11:20:00 AM, [address], [place], [address], Provider Name:Yolanda Harley, 09/28/2024 09:00:00 AM, [address] [place], [address], Provider Name:Yolanda Harley, 10/04/2024 10:35:00 AM, [address] [place], [address], Provider Name:Brianna Chapa , 11/29/2024 10:40:00 AM, [address] [place], [address], Progress Notes * ALETHEA LEI DDOB:1970 (54 yo M)Acc No.[id number]:05/02/2024 Patient: ALETHEA GUZMAN Provider: Юлия Rivera DDS :1970 A ge:54 Y S ex:Male Date:05/02/2024 Address:[address] [place] [address] [address] [facility] Subjective: * Chief Complaints: * 1 . MACHINE SPRAYER EXAM. * Medical History: Objective: * Vitals: Assessment: Plan: * Treatment: * Images: * Electronic signature of Dr. Panda Rivera , DMD on 08/24/2024 at 06:33 AM EDT Sign off status: Pending * Provider: Юлия Rivera DDS Date: 0 05/02/2024 Generated for Jasmin garvin/Genoveva/Nataliaitting on: 08/24/2024 06:33 AM EDT
--- OUTSIDE RECORDS SUMMARY | 2024-08-24 06:34 | XMS_ITS | Encounter Summary ---
Author Organization [facility] Address [address] [place] [address] Care Team Providers Care Clergy Member Name Role Phone Go Foster Primary Care Provider [phone] Source Comments In the event this information is protected by the Federal Confidentiality of Alcohol and Drug AbusePatient Records regulations: The Federal rules restrict any use of the information to criminally investigate or prosecute any alcohol or drug abuse patient.[facility] Encounter Details Date Type Department Care Team (Late st Contact Info) Description 05/19/2024 Patient Msg Neurology [address] [place] [phone] Kathy Groves, Research Coordinator Information sheet: updates for [facility] Natural History Database Social History Tobacco Use [...] N ot on file 01/29/2020 Data from: https://www.neighborhoodatlas.[facility]/. Last address used for calculation Not on [...] on filedocumented in this encounter Care Teams Clergy Member Relationship Specialty Start Date End Date Go Foster DO PCP - General 10/24/12 documented as of this encounter
--- OUTSIDE RECORDS SUMMARY | 2024-08-24 06:34 | XMS_ITS | Clinical Summary ---
Author Organization [facility] Address [address] [place] [address] Care Team Providers Care Nurse Recruiter Name Role Phone Foster Go Radhames OLIVO [...] Type Department Care Team Description 05/29/2024 Travel from Last 3 Months Social History Tobacco [...] N ot on file 01/29/2020 Data from: https://www.neighborhoodatlas.medicine.[facility].edu/. Last address used for calculation Not on [...] Vaccine (1 of 2) 01/10/2018 Covid-19 Vaccine (7 - 2023-2 5 season) 2023 12/10/2022, 12/11/2021, 06/26/2021, Additional history exists Influenza Vaccine (#1) 2024 3, 12/11/2021, 12/19/2020, Additional history exists Cologuard (FIT-DNA) 02/12/2026 02/12/2023 Colorectal Cancer Screening 02/12/2026 Hepatitis B Vaccine Completed 01/04/1985, 07/08/1984, 06/08/1984 Procedures Procedure Name Priority Date/Time Associated Diagnosis Comments BASIC METABOLIC PANEL Routine 10/29/2012 4:44 AM EDT from Last 3 Months or Most Recently Relevant to Health Maintenance Results * (ABNORMAL) BASIC METABOLIC PNL (10/29/2012 4:44 AM EDT) Glucose 81 65 - 100 mg/dL [facility] BUN 18 10 - 25 mg/dL [facility] Creatinine 1.04 0.70 - 1.40 mg/dL [facility] Sodium 144 135 - 146 mmol/L [facility] Potassium 4.1 3.5 - 5.0 mmol/L [facility] Chloride 112(H) 98 - 110 mmol/L [facility] CO2 21(L) 23 - 32 mmol/L [facility] Anion Gap 11 0 - 15 mmol/L [facility] Calcium 8.4(L) 8.5 - 10.5 mg/dL [facility] Blood specimen (specimen) BLOOD SPECIMEN / Unknown 10/29/2012 4:44 AM EDT 10/29/2012 4:45 AM EDT Marcelo Xie MD LABORATORY Final Result Performing Organization Address City/State/[facility] Co de Phone Number [facility] [address] [place] [address] from Last 3 Months or Most Recently Relevant to Health Maintenance Insurance [address] [place] [address] MEDICARE MEDICAID [place] Care Teams Nurse Recruiter Relationship Specialty Start Date End Date Go Foster DO PCP - General 10/24/12
--- OUTSIDE RECORDS SUMMARY | 2024-08-24 06:34 | XMS_ITS | Patient Health Record ---
Author Organization [facility] es Address [address] [place] [address] Care Team Providers Care Fusing Line Inspector Name Role Phone Dr. Panda Rivera Primary Care Provider [phone] Yolanda Harley Unavailable [phone] Reason For Referral No Information Encounters Encounter Location Date Provider Diagnosis [facility] [address] [place] [address] 06/01/2024 Yolanda Harley Encounter for dental examination [...] 11:20:00 AM, [address], [place], [address], Provider Name:Yolanda Harley, 09/28/2024 09:00:00 AM, [address], [place], [address], Provider Name:Yolanda Harley, 10/04/2024 10:35:00 AM, [address], [place], [address], Provider Name:Brianna Chapa , 11/29/2024 10:40:00 AM, [address], [place], [address], Insurance Providers Payer Name Payer Address Payer Phone Subscriber Number Group Number Insured Name Patient Relationship to Insured Coverage Start Date Coverage End Date D[place] [address] [place] [phone] [id number] ALETHEA LEI Self - patient is the insured
--- OUTSIDE RECORDS SUMMARY | 2024-08-24 06:34 | XMS_ITS | Clinical Summary ---
Author Organization [facility] Address [address] [place] [address] Care Team Providers Care Metals Sales Representative Name Role Phone Go Foster MD Primary Care Provider Sue Patrick DO Unavailable Allergies Active Allergy Reactions Criticality Noted Date [...] EDT Office Visit [facility] [address] [place] [address] Glenn Flores DPM Lisfranc dislocation, left, initial encounter (Primary Dx) 08/01/2024 Bamboo flowsheet [facility] [address] [place] [address] Glenn Flores DPM 07/11/2024 9:50 AM EDT Office Visit [facility] [address] [place] [address] Glenn Flores DPM Lisfranc dislocation, left, initial encounter (Primary Dx) 07/11/2024 Bamboo flowsheet [facility] [address] [place] [address] Glenn Flores DPM 06/17/2024 9:50 AM EDT Office Visit [facility] [address] [place] [address] Glenn Flores DPM Lisfranc dislocation, left, initial encounter (Primary Dx) 06/17/2024 Bamboo flowsheet [facility] [address] [place] [address] Glenn Flores DPM 05/27/2024 9:40 AM EDT Office Visit [facility] [address] [place] [address] Glenn Flores DPM Lisfranc dislocation, left, initial encounter (Primary Dx) 05/27/2024 Telephone [facility] [address] [place] [address] Glenn Flores DPM 05/27/2024 Bamboo flowsheet [facility] [address] [place] [address] Glenn Flores DPM from Last 3 Months [...] exists Insurance MEDICAID [place] MEDICARE Care Teams Metals Sales Representative Relationship Specialty Start Date End Date Go Foster MD [facility] [employer] [address] [place] [address] PCP - General Family Medicine 02/09/24 Sue Patrick DO [address] [place] [address] Referring Physician Neurology 02/09/24
--- OUTSIDE RECORDS SUMMARY | 2024-08-24 06:34 | XMS_ITS | Encounter Summary ---
Author Organization [facility] Address [address] [place] [address] Care Team Providers Care Yeast Supervisor Name Role Phone Go Foster Primary Care Provider [phone] Source Comments In the event this information is protected by the Federal Confidentiality of Alcohol and Drug AbusePatient Records regulations: The Federal rules restrict any use of the information to criminally investigate or prosecute any alcohol or drug abuse patient.[facility] Encounter Details Date Type Department Care Team (Late st Contact Info) Description 07/23/2021 Get Medical Advice Psychiatry [address] [place], [place] [id number] Ambrocio Romero MD [address] [facility] [address] [place], [place] [id number] Need for medical record of televisit on [...] N ot on file 01/29/2020 Data from: https://www.neighborhoodatlas.medicine.[facility].edu/. Last address used for calculation Not [...] on filedocumented in this encounter Care Teams Yeast Supervisor Relationship Specialty Start Date End Date Go Foster DO PCP - General 10/24/12 documented as of this encounter
--- OUTSIDE RECORDS SUMMARY | 2024-08-24 06:34 | XMS_ITS | Encounter Summary ---
Author Organization [facility] Address [address] [place] [address] Care Team Providers Care Steam Pan Sponger Name Role Phone Go Foster DO Primary Care Provider [phone] Source Comments In the event this information is protected by the Federal Confidentiality of Alcohol and Drug AbusePatient Records regulations: The Federal rules restrict any use of the information to criminally investigate or prosecute any alcohol or drug abuse patient.[facility] Encounter Details Date Type Department Care Team (Late st Contact Info) Description 11/23/2012 Patient Msg Medical Records [address] [place] [address] Provider, [facility] Results Social History Tobacco [...] on filedocumented in this encounter Care Teams Steam Pan Sponger Relationship Specialty Start Date End Date Go Foster DO PCP - General 10/24/12 documented as of this encounter
--- OUTSIDE RECORDS SUMMARY | 2024-08-24 06:34 | XMS_ITS | Encounter Summary ---
Author Organization [facility] Address [address] [place] [address] Care Team Providers Care Retail Assistant Manager Name Role Phone Go Foster Primary Care Provider [phone] Source Comments In the event this information is protected by the Federal Confidentiality of Alcohol and Drug AbusePatient Records regulations: The Federal rules restrict any use of the information to criminally investigate or prosecute any alcohol or drug abuse patient.[facility] Encounter Details Date Type Department Care Team (Late st Contact Info) Description 01/08/2022 Get Medical Advice Psychiatry [address] [place] [address] Ambrocio Romero MD [address] [facility] [address] [place] [address] Televisit today for Delano Segovia Social History [...] N ot on file 01/29/2020 Data from: https://www.neighborhoodatlas.medicine.[facility].edu/. Last address used for calculation Not [...] on filedocumented in this encounter Care Teams Retail Assistant Manager Relationship Specialty Start Date End Date Go Foster DO PCP - General 10/24/12 documented as of this encounter
--- OUTSIDE RECORDS SUMMARY | 2024-08-24 06:34 | XMS_ITS | Encounter Summary ---
Author Organization [facility] Address [address] [place] [address] Care Team Providers Care Food Service Manager Name Role Phone Go Foster Primary Care Provider [phone] Source Comments In the event this information is protected by the Federal Confidentiality of Alcohol and Drug AbusePatient Records regulations: The Federal rules restrict any use of the information to criminally investigate or prosecute any alcohol or drug abuse patient.[facility] Encounter Details Date Type Department Care Team (Late st Contact Info) Description 01/31/2021 Get Medical Advice Psychiatry [address] [place] [address] Ambrocio Romero MD [address] [facility] [address] [place] [address] Visit progress note and next appointment Social [...] N ot on file 01/29/2020 Data from: https://www.neighborhoodatlas.medicine.[facility].edu/. Last address used for calculation [...] in this encounter Care Teams Food Service Manager Relationship Specialty Start Date End Date Go Foster DO PCP - General 10/24/12 documented as of this encounter
--- OUTSIDE RECORDS SUMMARY | 2024-08-24 06:34 | XMS_ITS | Clinical Summary ---
Author Organization [employer] [facility] Address [id number] [address] [place] [address] Care Team Providers Care Cooker Sulfite Name Role Phone FosterGo Radhames OLIVO Primary [...] ID:Not on file Type:Not on file Address: [address] [phone] MEDICARE Care Teams Cooker Sulfite Relationship Specialty Start Date End Date Go Foster DO [address] [place] [address] PCP - General 07/17/16
--- OUTSIDE RECORDS SUMMARY | 2024-08-24 06:34 | XMS_ITS | Encounter Summary ---
Author Organization [facility] Address [address] [place] [address] Care Team Providers Care Sole Dyer Name Role Phone Go Foster Primary Care Provider [phone] Source Comments In the event this information is protected by the Federal Confidentiality of Alcohol and Drug AbusePatient Records regulations: The Federal rules restrict any use of the information to criminally investigate or prosecute any alcohol or drug abuse patient.[facility] Encounter Details Date Type Department Care Team (Late st Contact Info) Description 07/15/2021 Get Medical Advice Psychiatry [address] [place] [address] Ambrocio Romero MD [address] [facility] [address] [place] [address] Progress Note from 07/15/21 Zoom appt. Social [...] N ot on file 01/29/2020 Data from: https://www.neighborhoodatlas.medicine.[facility].edu/. Last address used for calculation [...] on filedocumented in this encounter Care Teams Sole Dyer Relationship Specialty Start Date End Date Go Foster DO PCP - General 10/24/12 documented as of this encounter
--- OUTSIDE RECORDS SUMMARY | 2024-08-24 06:34 | XMS_ITS | Encounter Summary ---
Author Organization [facility] Address [address] [place] [address] Care Team Providers Care Rug Cutter Name Role Phone Go Foster MD Primary Care Provider Sue Patrick DO Unavailable [phone] Encounter Details Date Type Department Care Team ([facility] st Contact Info) Description 05/19/2024 Abstract [facility] [address] [place] [address] Glenn Flores DPM [address] [address] Social History Tobacco Use Types [...] on filedocumented in this encounter Care Teams Rug Cutter Relationship Specialty Start Date End Date Go Foster MD [address] [place] [address] PCP - General Family Medicine 02/09/24 Sue Patrick DO [address] [place] [address] Referring Physician Neurology 02/09/24 documented as of this encounter
--- OUTSIDE RECORDS SUMMARY | 2024-08-24 06:36 | XMS_ITS | CCD ---
Author Organization [facility] Care Team Providers Care Trauma Therapist Name Role Phone Robbi PETERSEN Unavailable Unavailable FOSTERGO Unavailable Unavailable FOSTERGO Unavailable Unavailable Nallely Parada Unavailable Cj Gayle Unavailable DO Go Foster Primary Care Provider [phone] DO Cj Gayle Attending Provider PROVIDER, UNKNOWN Attending Unavailable PROVIDER, UNKNOWN Admitting Unavailable PROVIDER, UNKNOWN Admitting Unavailable PROVIDER, UNKNOWN Attending Unavailable SIMI EDWARDS Admitting Unavailable SIMI EDWARDS Attending Unavailable SIMI EDWARDS Referring Unavailable Unavailable Primary Care Provider UnavailDO Go Ryan Primary Care Provider [phone] DO Cj Gayle Attending Provider DO Go Foster Primary Care Provider [phone] DO Cj Gayle Attending Provider MD Nallely Parada Attending Provider Unavailable Primary Care Provider UnavailTRAN Wilkins Admitting Unavailable TRAN ELKINS Attending Unavailable KRISTIN, DR GO Ricci Primary Care Unavailable BRE, DR SANDY Velez Consulting Unavailable MARY GILMAN Consulting Unavailable TRAN ELKINS Consulting Unavailable FOSTER, DR GO Ricci Primary Care Unavailable VANDANA, DR NORMA Medellin Consulting Unavailable FOSTER, DR GO Ricci Admitting Unavailable FOSTER, DR GO Ricci Attending Unavailable FOSTER, DR GO Ricci Consulting Unavailable FOSTER, DR GO Ricci Primary Care Unavailable FOSTER, DR GO Ricci Admitting Unavailable FOSTER, DR GO Ricci Attending Unavailable WEST, DR NORMA Medellin Consulting Unavailable FOSTER, DR GO Ricci Consulting Unavailable FOSTER, DR GO Ricci Consulting Unavailable FOSTER, DR GO Ricci Primary Care Unavailable FOSTER, DR GO Ricci Admitting Unavailable FOSTRE, DR GO Ricci Attending Unavailable JONAH MAJANO Consulting Unavailable FOSTER, DR GO Ricci Consulting Unavailable FOSTER, DR GO Ricci Primary Care Unavailable FOSTER, DR GO Ricci Attending Unavailable FOSTER, DR GO Ricci Admitting Unavailable BROWNNORMA Consulting Unavailable FOSTER, DR GO Ricci Consulting Unavailable FOSTER, DR GO Ricci Primary Care Unavailable FOSTER, DR GO Ricci Attending Unavailable FOSTER, DR GO Ricci Admitting Unavailable FOSTER, DR GO Ricci Attending Unavailable FOSTER, DR GO Ricci Admitting Unavailable WEST, DR NORMA Medellin Consulting Unavailable FOSTER, DR GO Ricci Primary Care Unavailable FOSTER, DR GO Ricci Consulting Unavailable FOSTER, GO Primary Care Physician FOSTERGO Admitting Unavailable FOSTER, GO Attending Unavailable FOSTER, GO Attending Unavailable FOSTER, GO Admitting Unavailable FOSTER, GO Attending Unavailable FOSTER, GO Admitting Unavailable FOSTER, GO Attending Unavailable FOSTER, GO Admitting Unavailable Unallocated , Arnies Provider Primary Care [facility] Go Foster MD Primary Care Provider Sue Patrick DO Unavailable SUMEET CALI Attending Unavailable FOSTER, GO Ricci Primary Care Unavailable SUMEET CALI Attending Unavailable FOSTER, GO Ricci Primary Care Unavailable MEGAN TSE Referring Unavailable BROWNGLENN Attending Unavailable BROWNGLENN Attending Unavailable BROWN, GLENN A Attending Unavailable BROWN, GLENN A Attending Unavailable BROWN, GLENN A Attending Unavailable BROWN, GLENN A Attending Unavailable BROWN, GLENN A Attending Unavailable GLENN BROWN Attending Unavailable ANA MARIA HSU Attending Unavailable ANA MARIA HSU Attending Unavailable Owen ACKERMAN, Adams Maldonado Attending Provider Geovanny Dong DO Attending Provider Go Foster DO Primary Care Provider Daljit Messina DO Admit Provider Ritu Cabrera MD Other Provider Denise Marin MD Other Provider Agusto STEELE-CLinda Other Provider Unavailable Clint Brizuela MD Attending Provider Clint Brizuela MD Other Provider Luisa Santizo MD Other Provider Adams Weaver Attending Unavailable Adams Weaver Admitting Unavailable Geovanny Dong Attending Unavailable Geovanny Dong Admitting Unavailable Go Foster Primary Care Unavailable Daljit Messina Admitting Unavailnallely e Ritu Cabrera Attending Unavailable Denise Marin Consulting Unavailable Linda Liz Consulting Unavailable Clint Brizuela Consulting Unavailable Luisa Santizo Consulting Unavailable Ashanti Bautista Attending Unavailable Allergies Allergy Classification Reported Allergen(s) Allergy Type Date of Onset Reaction(s) Facility (1 source) PERTUSSIS VACCINE,FLUID; Translations: [PERTUSSIS VACCINE,FLUID] Propensity to adverse reactions to drug (disorder) 7 [facility] Repository (20 sources) PERTUSSIS VACCINES; Translations: [PERTUSSIS VACCINES] Propensity to adverse reactions to drug (disorder) 8 Unknown [facility] Repository (1 source) Pertussis Vaccine Drug Allergy 3 [facility] Repository (1 source) ARIPiprazole; Translations: [ARIPIPRAZOLE] Drug Allergy 8 [facility] Repository Medications Current Medications Medication Drug Class(es) Dates Sig (Normalized) Sig (Original) 8 hr acetaminophen 650 mg extended release oral tablet (20 sources) Start: 09-24-2021 take 1 tablet by mouth every four to six hours as needed for pain Acetaminophen 650 mg Tablet Extended Release Active 650 MG PO EVERY 4-6 HOURS as needed for Pain September 24, 2021 12:00am Complies with drug therapy acetaminophen (T ylenol) 325 MG tablet Take by mouth Active Alendronate / Cholecalciferol (3 sources) Bisphosphonate, Vitamin D ALENDRONATE-CHOLECAL CIFEROL ORAL Take by mouth. Active ALENDRONATE-CHOL ECALCIFEROL ORAL Take by mouth. 0 Active amLODIPine 10 mg oral tablet (20 sources) Dihydropyridine Calcium Channel Deena Start: 08-17-2024 take 1 tablet by mouth once daily Amlodipine 10 mg tablet Active 10 MG PO Daily August 17, 2024 12:00am Complies with drug therapy Start: 02-03-2024 take 1 tablet by summer th once daily amLODIPine (Norvasc) 5 MG tablet Take 5 mg by mouth Daily 02/03/2024 Active atorvastatin 40 mg oral tablet (20 sources) HMG-CoA Reductase Inhibitor Start: 09-24-2021 take 1 tablet by mouth at bedtime Atorvastatin 40 mg Tablet Active 40 MG PO Bedtime September 24, 2021 12:00am Complies with drug therapy benztropine mesylate 1 mg oral tablet (20 sources) Anticholinergic, Antihistamine Start: 09-24-2021 take 1 tablet by mouth three times daily Benztropine 1 mg Tablet Active 1 MG PO Three times daily September 24, 2021 12:00am Complies with drug therapy Start: 09-24-2021 take 1 mg by mouth once daily Benztropine Active 1 MG PO Daily September 23, 2021 11:00pm take 1 tablet by summer th twice daily benztropine (COGENTIN) 1 MG tablet Take 1 mg by mouth 2 times daily. Active Biotene Dry Mouth - (6 sources) Biotene Dry Mout h - as directed Mouth/Throat Active calcium carbonate 1250 mg / cholecalciferol 200 unt oral tablet (20 sources) Vitamin D Start: 08-17-2024 take 1 tablet by mouth twice daily Calcium Carbonate-Vitamin D3 (Oyster Shell Calcium-Vit D3) 500 mg-5 mcg (200 unit) tablet Active 1 TAB PO Twice daily August 17, 2024 12:00am Complies with drug therapy Start: 01-27-2023 take 1 tablet by summer th in the morning, then take 1 tablet by mouth once at bedtime Calcium Carb-Cholecalciferol (Oyster Shell Calcium w/D) 500-5 MG-MCG tablet Take 1 tablet by mouth in the morning and 1 tablet before bedtime. 01/27/2023 Active cloNIDine hydrochloride 0.2 mg oral tablet (20 sources) Central alpha-2 Adrenergic Agonist Start: 08-17-2024 take 1 tablet by mouth three times daily Clonidine Hcl 0.2 mg tablet Active 0.2 MG PO Three times daily August 17, 2024 12:00am Hold for SBP Complies with drug therapy Start: 09-24-2021 take 1 tablet by summer th once daily Clonidine Hcl 0.1 mg Tablet Active 0.1 MG PO Daily September 24, 2021 12:00am Non-compliance of drug therapy take 1 tablet by summer th three times daily cloNIDine (Catapres) 0.1 MG tablet TAKE ONE TABLET BY MOUTH 3 TIMES DAILY CATAPRES Active cloNIDine HCl (C ATAPRES ORAL) Take by mouth. Active cloNIDine HCl (C ATAPRES ORAL) Take by mouth. 0 Active 1 ml denosumab 60 mg/ml prefilled syringe (20 sources) RANK Ligand Inhibitor Start: 08-17-2024 inject 60 mg by subcutaneous injection every month Denosumab (Prolia) 60 mg/mL syringe Active 60 MG SUBCUT .Monthly August 17, 2024 12:00am Complies with drug therapy Start: 07-07-2023 Prolia 60 MG/M L solution prefilled syringe 07/07/2023 Active Dentifrices (BIOTENE DRY SUMMER TH DENTAL) (3 sources) Dentifrices (BIO TENE DRY MOUTH DENTAL) by Dental route. Active Dentifrices (BIO TENE DRY MOUTH DENTAL) by Dental route. 0 Active docusate sodium 100 mg oral capsule (20 sources) Start: 08-17-2024 take 1 capsule by mouth three times daily Docusate Sodium 100 mg capsule Active 100 MG PO Three times daily August 17, 2024 12:00am Complies with drug therapy take 1 capsule by mouth three ti mes daily docusate sodium (Colace) 100 MG capsule TAKE ONE CAPSULE BY MOUTH 3 TIMES DAILY Active eucalyptol 0.92 mg/ml / menthol 0.42 mg/ml / methyl salicylate 0.6 mg/ml / thymol 0.64 mg/ml mouthwash (20 sources) Start: 01-27-2023 Mouthwashes (B iotene Dry Mouth) liquid TWICE A DAY SWISH 15ML FOR 30 SEC THEN SPIT 01/27/2023 Active fluocinonide 0.5 mg/ml topical solution (20 sources) Corticosteroid Start: 08-17-2024 Fluocinonide 0 .05 % solution Active 1 APPLIC TOPICAL Once a week August 17, 2024 12:00am Thursday Complies with drug therapy Start: 03-10-2023 fluocinonide ( Lidex) 0.05 % external solution 03/10/2023 Active haloperidol 5 mg oral tablet (20 sources) Typical Antipsychotic Start: 09-24-2021 Haloperi dol 5 mg tablet Active 0 PO Daily September 24, 2021 12:00am 15mg orally daily; 0800 10mg orally evening 1600 15mg orally bedtime 2000 Complies with drug therapy Start: 09-24-2021 take 5 mg by mouth once daily Haloperidol Active 5 MG PO Daily September 23, 2021 11:00pm levETIRAcetam 500 mg oral tablet (20 sources) Start: 08-17-2024 take 1 tablet by mouth twice daily Levetiracetam 500 mg tablet Active 500 MG PO Twice daily August 17, 2024 12:00am Complies with drug therapy Start: 01-27-2023 take 1 tablet by summer th in the morning levETIRAcetam (Keppra) 500 MG tablet Take 1 tablet by mouth in the morning and 1 tablet before bedtime. 01/27/2023 Active levothyroxine sodium 0.137 mg oral tablet (20 sources) l-Thyroxine Start: 08-17-2024 take 1 tablet by mouth once daily Levothyroxine 137 mcg tablet Active 137 MCG PO Daily August 17, 2024 12:00am Complies with drug therapy Start: 01-27-2023 take 1 tablet by summer th before mealtime levothyroxine (Synthroid, Levoxyl) 175 MCG tablet Take 175 mcg by mouth in the morning. Take before meals. 01/27/2023 Active Start: 01-27-2023 take 1 tablet by summer th once daily levothyroxine (Synthroid, Levoxyl) 150 MCG tablet TAKE ONE TABLET BY MOUTH DAILY SYNTHROID 01/27/2023 Active Start: 09-24-2021 Levothyroxine 100 mcg tablet Active 150 MCG PO Daily September 24, 2021 12:00am Non-compliance of drug therapy Start: 09-24-2021 take 150 ug by mouth once cait y Levothyroxine Active 150 MCG PO Daily September 23, 2021 11:00pm take 1 tablet by summer th once daily in the morning Levothyroxine Sodium 100 MCG 1 tablet in the morning on an empty stomach Orally Once a day Active take 1 tablet by summer th once daily in the morning Levothyroxine [...] Orally once for 1 days Jan, Active Multiple Vitamin (Multivitamin) tablet (20 sources) Start: take 1 tablet by mouth in the morning Multiple Vitamin (Multivitamin) tablet Take 1 tablet by mouth in the morning. 01/27/2023 Active Multivitamin tablet (2 sources) Start: take 1 tablet by mouth once daily Multivitamin tablet Active 1 TAB PO Daily August 17, 2024 12:00am Complies with drug therapy nebivolol 5 mg oral tablet (2 sources) Start: take 1 tablet by mouth once daily Nebivolol 5 mg tablet Active 5 MG PO Daily August 17, 2024 12:00am Complies with drug therapy OXcarbazepine 600 mg oral tablet (20 sources) Anti-epileptic Agent Start: take 1 tablet by mouth once daily at bedtime Oxcarbazepine 600 mg tablet Active 600 MG PO .COMPLEX September 24, 2021 12:00am 600 mg orally Daily; 1200mg orally Bedtime Complies with drug therapy Start: 09-24-2021 take 600 mg by mouth twice daily Oxcarbazepine Active 600 MG PO Twice daily September 23, 2021 11:00pm OXcarbazepine (T RILEPTAL ORAL) Take by mouth. Active OXcarbazepine (T RILEPTAL ORAL) Take by mouth. 0 Active PARoxetine hydrochloride 40 mg oral tablet (20 sources) Serotonin Reuptake Inhibitor Start: 09-24-2021 Paroxetine Hcl 40 mg tablet Active 60 MG PO Bedtime September 24, 2021 12:00am Complies with drug therapy Start: 09-24-2021 take 40 mg by mouth once daily Paroxetine Hcl Active 40 MG PO Daily September 23, 2021 11:00pm Potassimin (7 sources) Potassimin Activ e Saliva Substitute Combo No.9 (Biotene Dry Mouth Oral Rinse) mouthwash (7 sources) Start: 09-24-2021 Saliva Substit seneca Combo No.9 (Biotene Dry Mouth Oral Rinse) mouthwash Active 5 ML PO As Directed as needed for Dry Mouth September 24, 2021 12:00am Complies with drug therapy Start: 09-24-2021 Saliva Substit seneca Combo No.9 (Biotene Dry Mouth Oral Rinse) mouthwash Active 5 ML PO As Directed September 23, 2021 11:00pm Start: 09-24-2021 Saliva Substit seneca Combo No.9 (Biotene Dry Mouth Oral Rinse) mouthwash Active 5 ML PO As Directed September 24, 2021 12:00am sennosides, intermediate 8.6 mg oral tablet (1 source) Start: 08-19-2024 take 2 tablets by mouth once daily at bedtime triamcinolone acetonide 1 mg/ml topical cream (20 sources) Corticosteroid Start: 08-17-2024 Triamcinolone Acetonide 0.1 % cream Active 1 APPLIC TOPICAL Twice daily August 17, 2024 12:00am Complies with drug therapy triamcinolone (K enalog) 0.1 % cream Apply topically 2 (two) times a day Active Completed/Discontinued Medications Medication Drug Class(es) Dates Sig (Normalized) Sig (Original) acetaminophen 325 mg / HYDROcodone bitartrate 5 mg oral tablet (7 sources) Opioid Agonist Start: 09-24-2021 End: 08-17-2024 take 1 tablet by mouth every four to six hours as needed for pain Hydrocodone-Aceta minophen 5-325 mg Tablet Discontinued 1 TAB PO EVERY 4-6 HOURS as needed for Pain September 24, 2021 12:00am August 17, 2024 2:57am alendronic acid 70 mg oral tablet (14 sources) Bisphosphonate Start: 09-24-2021 End: 08-17-2024 take 1 tablet by mouth once daily Alendronate 70 mg tablet Discontinued 70 MG PO Daily September 24, 2021 12:00am August 17, 2024 2:57am aspirin 81 mg delayed release oral tablet (17 sources) Platelet Aggregation Inhibitor, Nonsteroidal Anti-inflammatory Drug Start: 09-24-2021 End: 08-17-2024 take 1 tablet by mouth once daily Aspirin 81 mg Tablet,Delayed Release (Dr/Ec) Discontinued 81 MG PO Daily September 24, 2021 12:00am August 17, 2024 2:57am Aspirin (ASPIR-8 1 ORAL) Take by mouth. Active take 1 tablet by mouth once cait y Aspir-Low 81 MG 1 tablet Orally Once a day Active Aspirin (ASPIR-8 1 ORAL) Take by mouth. 0 Active losartan potassium 100 mg oral tablet (20 sources) Angiotensin 2 Receptor Deena Start: 08-17-2024 End: 08-19-2024 take 1 tablet by mouth at bedtime Losartan 100 mg tablet Discontinued 100 MG PO Bedtime August 17, 2024 12:00am August 19, 2024 12:21pm Start: 01-27-2023 take 1 tablet by summer th at bedtime losartan (Cozaar) 100 MG tablet Take 100 mg by mouth at bedtime 01/27/2023 Active Start: 01-27-2023 take 1 tablet by summer th at bedtime losartan (Cozaar) 50 MG tablet Take 50 mg by mouth at bedtime 01/27/2023 Active meloxicam 15 mg oral tablet (20 sources) Nonsteroidal Anti-inflammatory Drug Start: 08-17-2024 End: 08-19-2024 take 1 tablet by mouth at bedtime Meloxicam 15 mg tablet Discontinued 15 MG PO Bedtime August 17, 2024 12:00am August 19, 2024 12:21pm Start: 01-27-2023 take 1 tablet by summer th once daily at bedtime meloxicam (Mobic) 15 MG tablet TAKE ONE TABLET BY MOUTH DAILY AT BEDTIME MOBIC 01/27/2023 Active potassium chloride 10 meq extended release oral capsule (20 sources) Start: 09-24-2021 End: 08-19-2024 take 1 capsule by mouth three times daily Potassium Chloride 10 mEq capsule, extended release Discontinued 10 MEQ PO Three times daily September 24, 2021 12:00am August 19, 2024 12:21pm take 1 tablet by mouth once cait y potassium chloride SA (K-DUR) 10 MEQ controlled release tablet Take 10 mEq by mouth daily. Active traMADol hydrochloride 50 mg oral tablet (20 sources) Opioid Agonist Start: 09-24-2021 End: 08-17-2024 take 1 tablet by mouth every four hours as needed for pain Tramadol 50 mg tablet Discontinued 50 MG PO Q4H as needed for pain 42 7 September 24, 2021 12:00am August 17, 2024 2:57am Problems Active Problems Problem Classification Problem Date Documented Date Episodic/Chronic Acute and unspecified renal failure (5 sources) Acute renal failure syndrome; Translations: [Acute kidney failure, unspecified] Onset: 08-17-2024 08-17-2024 Episodic Attention-deficit, conduct, and disruptive behavior disorders (20 sources) Disruptive behavior disorder; 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, unspecified] 08-06-2023 Chronic Chronic kidney disease (6 sources) Chronic kidney disease, unspecified; Translations: [Chronic kidney disease] Onset: 03-17-2022 08-17-2024 Chronic Delirium, dementia, and amnestic and other cognitive disorders (5 sources) Frontal lobe syndrome; 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] Onset: 08-17-2024 08-17-2024 Chronic Developmental disorders (20 sources) Unspecified intellectual disabilities; Translations: [Intellectual disability] Onset: 01-31-2021 08-06-2023 Chronic Disorders usually diagnosed in infancy, childhood, or adolescence (4 sources) Autistic disorder; Translations: [Autism spectrum disorder] Onset: 08-01-2015 08-17-2024 Chronic Comment on above: MRDD Epilepsy; convulsions (20 sources) Epilepsy, unspecified, not intractable, without status epilepticus; Translations: [Seizure disorder] Onset: 03-17-2022 08-06-2023 Chronic Essential hypertension (6 sources) Essential (primary) hypertension; Translations: [Hypertensive disorder] Onset: 09-25-2021 08-17-2024 Chronic Fluid and electrolyte disorders (9 sources) Metabolic acidosis; Translations: [Metabolic acidosis] Onset: 08-17-2024 08-17-2024 Episodic Fracture of lower limb (11 sources) Displaced fracture of lateral malleolus of right fibula, subsequent encounter for closed fracture with routine healing; Translations: [Fracture of ankle] Onset: 09-25-2021 Resolved: 10-16-2021 Episodic Fracture of lower limb (3 sources) Other [...] [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 Other congenital anomalies (2 sources) Tuberous sclerosis; 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 Unclassified (2 sources) Follow-up with Neurology as previously scheduled. Unclassified (1 source) Follow-up with Urology for acute urinary retention, call office to reschedule if needed. Unclassified (1 source) Acidosis, unspecified; Translations: [Acidosis, unspecified] Onset: 08-17-2024 Urinary tract infections (5 sources) Cystitis; Translations: [Cystitis, unspecified without hematuria] Onset: 08-17-2024 08-17-2024 Episodic Past or Other Problems Problem Classification Problem Date Documented Da te Episodic/Chronic Disorders of teeth and jaw (3 sources) Dental caries; Translations: [Dental caries, unspecified] Onset: 01-01-2021 01-01-2021 Episodic E Codes: Fall (1 source) Fall on same level, unspecified, initial encounter; Translations: [FALL SAME LEVEL UNSPECIFIED INITIAL] Onset: 09-25-2021 Episodic Other aftercare (1 source) Other senior living (current) drug therapy; Translations: [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 THERAPY] Onset: 09-25-2021 Episodic Other liver diseases (20 sources) Alkaline phosphatase raised; Translations: [Abnormal levels of other serum enzymes] Onset: 08-11-2023 08-11-2023 Episodic Other lower respiratory disease (1 source) Other disorders of lung Onset: 08-14-2021 Resolved: 08-14-2021 Episodic Other lower respiratory disease (1 source) Solitary pulmonary nodule; Translations: [SOLITARY PULMONARY NODULE] Onset: 08-05-2021 Episodic Other non-traumatic joint disorders (3 sources) Pain in right ankle and joints of right foot; Translations: [PAIN IN RIGHT ANKLE] Onset: 09-18-2021 Episodic Unclassified (1 source) CHRN KIDNEY DISEASE STG 3 UNSP; Translations: [CHRN KIDNEY DISEASE STG 3 UNSP] Onset: 05-27-2022 Results Test Name Value Interpretation Reference Range Facility Albumin Levelon 08-19-2024 Albumin [Mass/Vol] 3.5 g/dL Normal 3.5-5.7 [facility] Comment on above: Result Comment: PERF ORMED BY: [place] [address] PATHOLOGIST COMPUTER SYSTEMS ARCHITECT KARLA FAIR M.D. Performed By: #### B MP, CBC #### [address] Basic Metabolic Panelon 07-25 Anion gap [Moles/Vol] 11.5 mmol/L Normal 6.0-15.0 [facility] Comment on above: Performed By: #### M G, ALB, CBC, BMP #### [place] [address] [place] Calcium [Mass/Vol] 7.7 mg/dL Low 8.6-10.3 [facility] Comment on above: Performed By: #### M G, ALB, CBC, BMP #### [place] [address] [place] Chloride [Moles/Vol] 107 mmol/L Normal 98-107 [facility] Comment on above: Performed By: #### M G, ALB, CBC, BMP #### [facility] [place] [facility] [address] [place] [address] [place] CO2 [Moles/Vol] 27.3 mmol/L Normal 21.0-31.0 [facility] Comment on above: Performed By: #### M G, ALB, CBC, BMP #### [place] [address] [place] Creatinine [Mass/Vol] 1.47 mg/dL High 0.70-1.30 [facility] Comment on above: Performed By: #### M G, ALB, CBC, BMP #### [facility] [address] Creatinine Clr Calc Pharmacy 55.19 Normal [facility] Comment on above: Performed By: #### M G, ALB, CBC, BMP #### [facility] [address] [place] [address] [place] GFR/1.73 sq M.predicted MDRD (S/P/Bld) [Vol rate/Area] 55.634 mL/min/{1.73_m2} Normal [facility] Comment on above: Performed By: #### M G, ALB, CBC, BMP #### [address] Glucose [Mass/Vol] 112 mg/dL High 70-100 [facility] Comment on above: Result Comment: [place] Glucose Reference Range is dependent on time and content of last meal. Glucose of more than 200 mg/dL in a nonstressed, ambulatory subject supports the diagnosis of Diabetes Mellitus. ADA recommended reference range Performed By: #### M G, ALB, CBC, BMP #### [address] Potassium [Moles/Vol] 3.8 mmol/L Normal 3.5-5.1 [facility] Comment on above: Performed By: #### M G, ALB, CBC, BMP #### [place] [address] [place] Sodium [Moles/Vol] 142 mmol/L Normal 136-145 [facility] Comment on above: Performed By: #### M G, ALB, CBC, BMP #### [address] Urea nitrogen [Mass/Vol] 20 mg/dL Normal 7-25 [facility] Comment on above: Performed By: #### M G, ALB, CBC, BMP #### [address] Complete Blood Count Auto Di ffon 08-19-2024 Basophils (Bld) [#/Vol] 0.0 10*3/uL Normal 0.0-0.2 [facility] Comment on above: Order Comment: only got the mint in micro. Result Comment: PERF ORMED BY: [place] [address] PATHOLOGIST COMPUTER SYSTEMS ARCHITECT KARLA FAIR M.D. Performed By: #### B MP, CBC #### [address] Basophils/100 WBC (Bld) 0.3 % Normal . [facility] Comment on above: Order Comment: only got the mint in micro. Performed By: #### B MP, CBC #### [address] Eosinophils (Bld) [#/Vol] 0.2 10*3/uL Normal 0.0-0.45 The [facility] [facility] Comment on above: Order Comment: only got the mint in micro. Performed By: #### B MP, CBC #### [address] Eosinophils/100 WBC (Bld) 3.1 % Normal . [facility] Comment on above: Order Comment: only got the mint in micro. Performed By: #### B MP, CBC #### [address] Erythrocyte distribution width (RBC) [Ratio] 13.3 % Normal 12.0-14.8 [facility] Comment on above: Order Comment: only got the mint in micro. Performed By: #### B MP, CBC #### [address] Hematocrit (Bld) [Volume fraction] 32.0 % Low 38.8-50.0 [facility] Comment on above: Order Comment: only got the mint in micro. Performed By: #### B MP, CBC #### [address] Hemoglobin (Bld) [Mass/Vol] 10.9 g/dL Low 13.0-17.0 [facility] Comment on above: Order Comment: only got the mint in micro. Performed By: #### B MP, CBC #### [address] Lymphocytes (Bld) [#/Vol] 1.4 10*3/uL Normal 1.00-4.8 [facility] Comment on above: Order Comment: only got the mint in micro. Performed By: #### B MP, CBC #### [address] Lymphocytes/100 WBC (Bld) 19.0 % Normal . [facility] Comment on above: Order Comment: only got the mint in micro. Performed By: #### B MP, CBC #### [address] MCH (RBC) [Entitic mass] 33.7 pg Normal 27.5-35.2 [facility] Comment on above: Order Comment: only got the mint in micro. Performed By: #### B MP, CBC #### [address] MCV (RBC) [Entitic vol] 98.9 fL Normal 83.5-101 [facility] Comment on above: Order Comment: only got the mint in micro. Performed By: #### B MP, CBC #### [address] Mean Corpuscular HGB Conc 34.0 g/dL Normal 32.5-35.6 [facility] Comment on above: Order Comment: only got the mint in micro. Performed By: #### B MP, CBC #### [address] Monocytes (Bld) [#/Vol] 0.9 10*3/uL High 0.0-0.8 [facility] Comment on above: Order Comment: only got the mint in micro. Performed By: #### B MP, CBC #### [address] Monocytes/100 WBC (Bld) 11.9 % Normal . [facility] Comment on above: Order Comment: only got the mint in micro. Performed By: #### B MP, CBC #### [address] Neutrophils (Bld) [#/Vol] 4.8 10*3/uL Normal 1.8-7.7 [facility] Comment on above: Order Comment: only got the mint in micro. Performed By: #### B MP, CBC #### [address] Neutrophils/100 WBC (Bld) 65.7 % Normal . [facility] Comment on above: Order Comment: only got the mint in micro. Performed By: #### B MP, CBC #### [address] NRBC% 0.2 /100{WBC} Normal 0-0.5 The [facility] Comment on above: Order Comment: only got the mint in micro. Performed By: #### B MP, CBC #### [address] Platelet mean volume (Bld) [Entitic vol] 8.0 fL Normal 6.6-10.1 The [facility] Comment on above: Order Comment: only got the mint in micro. Performed By: #### B MP, CBC #### [place] [address] [place] Platelets (Bld) [#/Vol] 165 10*3/uL Normal 150-450 [facility] Comment on above: Order Comment: only got the mint in micro. Performed By: #### B MP, CBC #### [place] [address] [place] RBC (Bld) [#/Vol] 3.23 10*6/uL Low 3.90-5.60 [facility] Comment on above: Order Comment: only got the mint in micro. Performed By: #### B MP, CBC #### [place] [address] [place] WBC (Bld) [#/Vol] 7.3 10*3/uL Normal 4.1-10.5 The [facility] Comment on above: Order Comment: only got the mint in micro. Performed By: #### B MP, CBC #### [address] White Blood Count 7.3 [CFU]/mL Normal 4.1-10.5 [facility] Comment on above: Order Comment: only got the mint in micro. Performed By: #### B MP, CBC #### [address] Magnesiumon 08-19-2024 Magnesium [Mass/Vol] 2.3 mg/dL Normal 1.9-2.7 [facility] Comment on above: Performed By: #### M G, ALB, CBC, BMP #### [address] Basic Metabolic Panelon 07-25 Anion gap [Moles/Vol] 12.0 mmol/L Normal 6.0-15.0 [facility] Comment on above: Performed By: #### B MP, CBC #### [address] Calcium [Mass/Vol] 7.9 mg/dL Low 8.6-10.3 The [facility] Comment on above: Performed By: #### B MP, CBC #### [place] [address] [place] Chloride [Moles/Vol] 103 mmol/L Normal 98-107 [facility] Comment on above: Performed By: #### B MP, CBC #### [address] CO2 [Moles/Vol] 30.5 mmol/L Normal 21.0-31.0 The [facility] Comment on above: Performed By: #### B MP, CBC #### [address] Creatinine [Mass/Vol] 1.59 mg/dL High 0.70-1.30 [facility] Comment on above: Performed By: #### B MP, CBC #### [address] Creatinine Clr Calc Pharmacy 52.79 Normal [facility] Comment on above: Result Comment: PERF ORMED BY: [place] [address] PATHOLOGIST COMPUTER [employer] ARCHITECT KARLA FAIR M.D. Performed By: #### B MP, CBC #### [place] [address] [place] GFR/1.73 sq M.predicted MDRD (S/P/Bld) [Vol rate/Area] 50.634 mL/min/{1.73_m2} Normal [facility] Comment on above: Performed By: #### B MP, CBC #### [address] Glucose [Mass/Vol] 132 mg/dL High 70-100 The [facility] Comment on above: Result Comment: [place] Glucose Reference Range is dependent on time and content of last meal. Glucose of more than 200 mg/dL in a nonstressed, ambulatory subject supports the diagnosis of Diabetes Mellitus. ADA recommended reference range Performed By: #### B MP, CBC #### [address] Potassium [Moles/Vol] 3.5 mmol/L Normal 3.5-5.1 [facility] Comment on above: Performed By: #### B MP, CBC #### [place] [address] [place] Sodium [Moles/Vol] 142 mmol/L Normal 136-145 The [facility] Comment on above: Performed By: #### B MP, CBC #### [address] Urea nitrogen [Mass/Vol] 25 mg/dL Normal 7-25 [facility] Comment on above: Performed By: #### B MP, CBC #### [place] [address] [place] Complete Blood Count Auto Di ffon 08-18-2024 Basophils (Bld) [#/Vol] 0.0 10*3/uL Normal 0.0-0.2 [facility] Comment on above: Result Comment: PERF ORMED BY: [place] [address] PATHOLOGIST [employer] ARCHITECT KARLA FAIR M.D. Performed By: #### B MP, CBC #### [address] Basophils/100 WBC (Bld) 0.5 % Normal . [facility] Comment on above: Performed By: #### B MP, CBC #### [address] Eosinophils (Bld) [#/Vol] 0.1 10*3/uL Normal 0.0-0.45 [facility] Comment on above: Performed By: #### B MP, CBC #### [address] Eosinophils/100 WBC (Bld) 1.2 % Normal . [facility] Comment on above: Performed By: #### B MP, CBC #### [address] Erythrocyte distribution width (RBC) [Ratio] 13.6 % Normal 12.0-14.8 [facility] Comment on above: Performed By: #### B MP, CBC #### [address] Hematocrit (Bld) [Volume fraction] 32.6 % Low 38.8-50.0 [facility] Comment on above: Performed By: #### B MP, CBC #### [address] Hemoglobin (Bld) [Mass/Vol] 11.1 g/dL Low 13.0-17.0 [facility] Comment on above: Performed By: #### B MP, CBC #### [address] Lymphocytes (Bld) [#/Vol] 1.4 10*3/uL Normal 1.00-4.8 [facility] Comment on above: Performed By: #### B MP, CBC #### [address] Lymphocytes/100 WBC (Bld) 20.8 % Normal . [facility] Comment on above: Performed By: #### B MP, CBC #### [address] MCH (RBC) [Entitic mass] 33.6 pg Normal 27.5-35.2 [facility] Comment on above: Performed By: #### B MP, CBC #### [address] MCV (RBC) [Entitic vol] 98.3 fL Normal 83.5-101 [facility] Comment on above: Performed By: #### B MP, CBC #### [address] Mean Corpuscular HGB Conc 34.2 g/dL Normal 32.5-35.6 [facility] Comment on above: Performed By: #### B MP, CBC #### [place] [address] [place] Monocytes (Bld) [#/Vol] 1.0 10*3/uL High 0.0-0.8 [facility] Comment on above: Performed By: #### B MP, CBC #### [place] [address] [place] Monocytes/100 WBC (Bld) 14.6 % Normal . [facility] Comment on above: Performed By: #### B MP, CBC #### [address] Neutrophils (Bld) [#/Vol] 4.2 10*3/uL Normal 1.8-7.7 [facility] Comment on above: Performed By: #### B MP, CBC #### [address] Neutrophils/100 WBC (Bld) 62.9 % Normal . [facility] Comment on above: Performed By: #### B MP, CBC #### [address] NRBC% 0.2 /100{WBC} Normal 0-0.5 The [facility] Comment on above: Performed By: #### B MP, CBC #### [address] Platelet mean volume (Bld) [Entitic vol] 7.9 fL Normal 6.6-10.1 The [facility] Comment on above: Performed By: #### B MP, CBC #### [address] Platelets (Bld) [#/Vol] 186 10*3/uL Normal 150-450 [facility] Comment on above: Performed By: #### B MP, CBC #### [address] RBC (Bld) [#/Vol] 3.32 10*6/uL Low 3.90-5.60 [facility] Comment on above: Performed By: #### B MP, CBC #### [address] WBC (Bld) [#/Vol] 6.7 10*3/uL Normal 4.1-10.5 The [facility] Comment on above: Performed By: #### B MP, CBC #### [address] White Blood Count 6.7 [CFU]/mL Normal 4.1-10.5 [facility] Comment on above: Performed By: #### B MP, CBC #### [address] Magnesiumon 08-18-2024 Magnesium [Mass/Vol] 1.7 mg/dL Low 1.9-2.7 [facility] Comment on above: Result Comment: PERF ORMED BY: [place] [address] PATHOLOGIST COM[employer] ARCHITECT KARLA FAIR M.D. Performed By: #### B MP, CBC #### [address] Basic Metabolic Panelon 06-2 Anion gap [Moles/Vol] 11.7 mmol/L Normal 6.0-15.0 Th e [facility] Comment on above: Performed By: #### B MP #### [address] Calcium [Mass/Vol] 8.5 mg/dL Low 8.6-10.3 The [facility] Comment on above: Performed By: #### B MP #### [address] Chloride [Moles/Vol] 106 mmol/L Normal 98-107 [facility] Comment on above: Performed By: #### B MP #### [address] CO2 [Moles/Vol] 24.1 mmol/L Normal 21.0-31.0 The [facility] Comment on above: Performed By: #### B MP #### [address] Creatinine [Mass/Vol] 1.90 mg/dL High 0.70-1.30 [facility] Comment on above: Performed By: #### B MP #### [address] Creatinine Clr Calc Pharmacy 44.17 Normal [facility] Comment on above: Result Comment: PERF ORMED BY: [place] [address] PATHOLOGIST COMPUT[employer] ARCHITECT KARLA FAIR M.D. Performed By: #### B MP #### [place] [address] [place] GFR/1.73 sq M.predicted MDRD (S/P/Bld) [Vol rate/Area] 40.890 mL/min/{1.73_m2} Normal [facility] Comment on above: Performed By: #### B MP #### [address] Glucose [Mass/Vol] 181 mg/dL High 70-100 The [facility] Comment on above: Result Comment: [facility] Glucose Reference Range is dependent on time and content of last meal. Glucose of more than 200 mg/dL in a nonstressed, ambulatory subject supports the diagnosis of Diabetes Mellitus. ADA recommended reference range Performed By: #### B MP #### [address] Potassium [Moles/Vol] 4.8 mmol/L Normal 3.5-5.1 [facility] Comment on above: Performed By: #### B MP #### [place] [address] [place] Sodium [Moles/Vol] 137 mmol/L Normal 136-145 [facility] Comment on above: Performed By: #### B MP #### [place] [address] [place] Urea nitrogen [Mass/Vol] 34 mg/dL High 7-25 [facility] Comment on above: Performed By: #### B MP #### [place] [address] [place] Anion gap [Moles/Vol] 12.3 mmol/L Normal 6.0-15.0 [facility] Comment on above: Performed By: #### B MP, CBC #### [place] [address] [place] Calcium [Mass/Vol] 9.2 mg/dL Normal 8.6-10.3 [facility] Comment on above: Performed By: #### B MP, CBC #### [facility] [address] [place] [address] [place] Chloride [Moles/Vol] 108 mmol/L High 98-107 [facility] Comment on above: Performed By: #### B MP, CBC #### [facility] [address] [place] [address] [place] CO2 [Moles/Vol] 21.7 mmol/L Normal 21.0-31.0 The [facility] Comment on above: Performed By: #### B MP, CBC #### [place] [address] [place] Creatinine [Mass/Vol] 2.16 mg/dL High 0.70-1.30 [facility] Comment on above: Performed By: #### B MP, CBC #### [place] [address] [place] Creatinine Clr Calc Pharmacy 38.86 Normal [facility] Comment on above: Result Comment: PERF ORMED BY: [place] [address] PATHOLOGIST COMPUTER [employer] ARCHITECT KARLA FAIR M.D. Performed By: #### B MP, CBC #### [place] [address] [place] GFR/1.73 sq M.predicted MDRD (S/P/Bld) [Vol rate/Area] 35.057 mL/min/{1.73_m2} Normal [facility] Comment on above: Performed By: #### B MP, CBC #### [address] Glucose [Mass/Vol] 122 mg/dL High 70-100 The [facility] Comment on above: Result Comment: [place] Glucose Reference Range is dependent on time and content of last meal. Glucose of more than 200 mg/dL in a nonstressed, ambulatory subject supports the diagnosis of Diabetes Mellitus. ADA recommended reference range Performed By: #### B MP, CBC #### [place] [address] [place] Potassium [Moles/Vol] 6.0 mmol/L High 3.5-5.1 [facility] Comment on above: Performed By: #### B MP, CBC #### [place] [address] [place] Sodium [Moles/Vol] 136 mmol/L Normal 136-145 [facility] Comment on above: Performed By: #### B MP, CBC #### [place] [address] [place] Urea nitrogen [Mass/Vol] 38 mg/dL High 7-25 [facility] Comment on above: Performed By: #### B MP, CBC #### [facility] [address] Anion gap [Moles/Vol] 15.5 mmol/L High 6.0-15.0 Th e [facility] Comment on above: Performed By: #### B MP, CBC #### [facility] [address] [place] [address] [place] Calcium [Mass/Vol] 8.9 mg/dL Normal 8.6-10.3 [facility] Comment on above: Result Comment: PERF ORMED BY: [place] [address] PATHOLOGIST COM[employer] ARCHITECT KARLA FAIR M.D. Performed By: #### B MP, CBC #### [place] [address] [place] Chloride [Moles/Vol] 109 mmol/L High 98-107 [facility] Comment on above: Performed By: #### B MP, CBC #### [place] [address] [place] CO2 [Moles/Vol] 16.9 mmol/L Low 21.0-31.0 The [facility] Comment on above: Performed By: #### B MP, CBC #### [place] [address] [place] Creatinine [Mass/Vol] 2.20 mg/dL High 0.70-1.30 [facility] Comment on above: Performed By: #### B MP, CBC #### [place] [address] [place] GFR/1.73 sq M.predicted MDRD (S/P/Bld) [Vol rate/Area] 34.293 mL/min/{1.73_m2} Normal [facility] Comment on above: Performed By: #### B MP, CBC #### [place] [address] [place] Glucose [Mass/Vol] 130 mg/dL High 70-100 [facility] Comment on above: Result Comment: [place] Glucose Reference Range is dependent on time and content of last meal. Glucose of more than 200 mg/dL in a nonstressed, ambulatory subject supports the diagnosis of Diabetes Mellitus. ADA recommended reference range Performed By: #### B MP, CBC #### [address] Potassium [Moles/Vol] 5.4 mmol/L High 3.5-5.1 [facility] Comment on above: Performed By: #### B MP, CBC #### [address] Sodium [Moles/Vol] 136 mmol/L Normal 136-145 [facility] Comment on above: Performed By: #### B MP, CBC #### [address] Urea nitrogen [Mass/Vol] 39 mg/dL High 7-25 [facility] Comment on above: Performed By: #### B MP, CBC #### [address] Complete Blood Count Auto Di ffon 08-17-2024 Basophils (Bld) [#/Vol] 0.0 10*3/uL Normal 0.0-0.2 [facility] Comment on above: Result Comment: PERF ORMED BY: [place] [address] PATHOLOGIST COMPUTER SYSTEMS ARCHITECT KARLA FAIR M.D. Performed By: #### B MP, CBC #### [place] [address] [place] Basophils/100 WBC (Bld) 0.3 % Normal . [facility] Comment on above: Performed By: #### B MP, CBC #### [place] [address] [place] Eosinophils (Bld) [#/Vol] 0.0 10*3/uL Normal 0.0-0.45 [facility] Comment on above: Performed By: #### B MP, CBC #### [address] Eosinophils/100 WBC (Bld) 0.6 % Normal . [facility] Comment on above: Performed By: #### B MP, CBC #### [address] Erythrocyte distribution width (RBC) [Ratio] 13.7 % Normal 12.0-14.8 [facility] Comment on above: Performed By: #### B MP, CBC #### [address] Hematocrit (Bld) [Volume fraction] 34.4 % Low 38.8-50.0 [facility] Comment on above: Performed By: #### B MP, CBC #### [address] Hemoglobin (Bld) [Mass/Vol] 11.7 g/dL Low 13.0-17.0 [facility] Comment on above: Performed By: #### B MP, CBC #### [address] Lymphocytes (Bld) [#/Vol] 0.9 10*3/uL Low 1.00-4.8 [facility] Comment on above: Performed By: #### B MP, CBC #### [address] Lymphocytes/100 WBC (Bld) 10.5 % Normal . [facility] Comment on above: Performed By: #### B MP, CBC #### [address] MCH (RBC) [Entitic mass] 33.7 pg Normal 27.5-35.2 [facility] Comment on above: Performed By: #### B MP, CBC #### [address] MCV (RBC) [Entitic vol] 99.1 fL Normal 83.5-101 [facility] Comment on above: Performed By: #### B MP, CBC #### [address] Mean Corpuscular HGB Conc 34.0 g/dL Normal 32.5-35.6 [facility] Comment on above: Performed By: #### B MP, CBC #### [facility] [address] [place] [address] [place] Monocytes (Bld) [#/Vol] 1.3 10*3/uL High 0.0-0.8 [facility] Comment on above: Performed By: #### B MP, CBC #### [facility] [address] [place] [address] [place] Monocytes/100 WBC (Bld) 15.3 % Normal . [facility] Comment on above: Performed By: #### B MP, CBC #### [facility] [address] [place] [address] [place] Neutrophils (Bld) [#/Vol] 6.0 10*3/uL Normal 1.8-7.7 [facility] Comment on above: Performed By: #### B MP, CBC #### [facility] [address] Neutrophils/100 WBC (Bld) 73.3 % Normal . [facility] Comment on above: Performed By: #### B MP, CBC #### [facility] [address] [place] [address] [place] NRBC% 0.1 /100{WBC} Normal 0-0.5 [facility] Comment on above: Performed By: #### B MP, CBC #### [facility] [address] [place] [address] [place] Platelet mean volume (Bld) [Entitic vol] 7.8 fL Normal 6.6-10.1 [facility] Comment on above: Performed By: #### B MP, CBC #### [facility] [address] [place] [address] [place] Platelets (Bld) [#/Vol] 209 10*3/uL Normal 150-450 [facility] Comment on above: Performed By: #### B MP, CBC #### [facility] [address] [place] [address] [place] RBC (Bld) [#/Vol] 3.47 10*6/uL Low 3.90-5.60 [facility] Comment on above: Performed By: #### B MP, CBC #### [address] WBC (Bld) [#/Vol] 8.2 10*3/uL Normal 4.1-10.5 [facility] Comment on above: Performed By: #### B MP, CBC #### [address] White Blood Count 8.2 [CFU]/mL Normal 4.1-10.5 [facility] Comment on above: Performed By: #### B MP, CBC #### [address] Basophils (Bld) [#/Vol] 0.0 10*3/uL Normal 0.0-0.2 [facility] Comment on above: Result Comment: PERF ORMED BY: [place] [address] PATHOLOGIST COMPUT[employer] ARCHITECT KARLA FAIR M.D. Performed By: #### B MP, CBC #### [address] Basophils/100 WBC (Bld) 0.4 % Normal . [facility] Comment on above: Performed By: #### B MP, CBC #### [address] Eosinophils (Bld) [#/Vol] 0.1 10*3/uL Normal 0.0-0.45 [facility] Comment on above: Performed By: #### B MP, CBC #### [address] Eosinophils/100 WBC (Bld) 1.7 % Normal . [facility] Comment on above: Performed By: #### B MP, CBC #### [address] Erythrocyte distribution width (RBC) [Ratio] 13.7 % Normal 12.0-14.8 [facility] Comment on above: Performed By: #### B MP, CBC #### [address] Hematocrit (Bld) [Volume fraction] 34.7 % Low 38.8-50.0 [facility] Comment on above: Performed By: #### B MP, CBC #### [address] Hemoglobin (Bld) [Mass/Vol] 11.7 g/dL Low 13.0-17.0 [facility] Comment on above: Performed By: #### B MP, CBC #### [address] Lymphocytes (Bld) [#/Vol] 1.0 10*3/uL Normal 1.00-4.8 [facility] Comment on above: Performed By: #### B MP, CBC #### [address] Lymphocytes/100 WBC (Bld) 14.4 % Normal . [facility] Comment on above: Performed By: #### B MP, CBC #### [address] MCH (RBC) [Entitic mass] 33.4 pg Normal 27.5-35.2 [facility] Comment on above: Performed By: #### B MP, CBC #### [address] MCV (RBC) [Entitic vol] 99.1 fL Normal 83.5-101 [facility] Comment on above: Performed By: #### B MP, CBC #### [address] Mean Corpuscular HGB Conc 33.7 g/dL Normal 32.5-35.6 [facility] Comment on above: Performed By: #### B MP, CBC #### [address] Monocytes (Bld) [#/Vol] 0.9 10*3/uL High 0.0-0.8 [facility] Comment on above: Performed By: #### B MP, CBC #### [facility] [address] [place] [address] [place] Monocytes/100 WBC (Bld) 13.3 % Normal . [facility] Comment on above: Performed By: #### B MP, CBC #### [facility] [address] Neutrophils (Bld) [#/Vol] 4.9 10*3/uL Normal 1.8-7.7 [facility] Comment on above: Performed By: #### B MP, CBC #### [address] Neutrophils/100 WBC (Bld) 70.2 % Normal . [facility] Comment on above: Performed By: #### B MP, CBC #### [address] NRBC% 0.3 /100{WBC} Normal 0-0.5 The [facility] Comment on above: Performed By: #### B MP, CBC #### [facility] [address] Platelet mean volume (Bld) [Entitic vol] 7.6 fL Normal 6.6-10.1 The [facility] Comment on above: Performed By: #### B MP, CBC #### [facility] [address] [place] [address] [place] Platelets (Bld) [#/Vol] 190 10*3/uL Normal 150-450 [facility] Comment on above: Performed By: #### B MP, CBC #### [facility] [address] [place] [address] [place] RBC (Bld) [#/Vol] 3.51 10*6/uL Low 3.90-5.60 [facility] Comment on above: Performed By: #### B MP, CBC #### [place] [address] [place] WBC (Bld) [#/Vol] 7.0 10*3/uL Normal 4.1-10.5 The [facility] Comment on above: Performed By: #### B MP, CBC #### [facility] [address] [place] [id number] [facility] White Blood Count 7.0 [CFU]/mL Normal 4.1-10.5 [facility] Comment on above: Performed By: #### B MP, CBC #### [facility] [address] [place] [id number] [facility] ECG 12 lead ECGon 08-17-2024 ECG 12 lead ECG [facility] Main [place] [address] [place] [address] Electrocardiograph Report Signed Patient: Alethea Lei MR#: [id number] : 1970 Acct:[id number] Age/Sex: 54 / M ADM Date: 08/17/24 Loc: Room: [address] [place] [address] Type: ADM IN Attending Dr: Ritu Cabrera MD Ordering Provider: Daljit Messina DO Date of Service: 08/17/24 ECG/ECG 12 lead ECG: check QT Copies to: Test Reason : Blood Pressure : */* mmHG Vent. Rate : 82 BPM Atrial Rate : 82 BPM P-R Int : 160 ms QRS Dur : 88 ms QT Int : 362 ms P-R-T Axes : 34 9 32 degrees QTcB Int : 422 ms Normal sinus rhythm Normal ECG When compared with ECG of 24-Sep-2021 12:15, No significant change was found Confirmed by Baldomero Olson ([id number]) on 08/17/2024 11:11:16 AM Referred By: Electronically Signed By: Baldomero Olson Transcribed By: MUS Signed By Baldomero Olson MD 08/17/24 1111 Normal [facility] Partial Thromboplastin Timeo n 08-17-2024 aPTT Coag (Bld) [Time] 28.0 s Normal 25.1-36.5 [facility] Comment on above: Result Comment: A he matocrit value greater than 55% may lead to inaccurate results in coagulation testing. Patients having hematocrit values >55% require a special collection tube for coagulation studies. Please contact the laboratory at [phone] for redraw instructions. PERFORMED BY: [place] [id number] PATHOLOGIST COMPUTER SYSTEMS ARCHITECT KARLA FAIR M.D. Performed By: #### P T, PTT #### [place] [id number] [facility] Prothrombin Time INRon 08-17 INR Coag (PPP) [Relative time] 1.3 {INR} Normal [facility] Comment on above: Result Comment: INR Therapeutic Range A) Pre- and Peroperative OAT started two weeks before surgery. NOT HIP SURGERY: 1.5 - 2.5 HIP SURGERY: 2 - 3 B) Primary and secondary prevention of venous THROMBOSIS: 2 - 3 C) Active venous thrombosis, pulmonary embolism and prevention of recurrent venous thrombosis: 2 - 3 D) Prevention of arterial thromboembolism including patients with mechanical heart valves: 3 - 4.5 Performed By: #### P T, PTT #### [place] [id number] [facility] PT Coag (PPP) [Time] 14.8 s High 9.0-12.9 [facility] Comment on above: Result Comment: A he matocrit value greater than 55% may lead to inaccurate results in coagulation testing. Patients having hematocrit values >55% require a special collection tube for coagulation studies. Please contact the laboratory at [phone] for redraw instructions. Performed By: #### P T, PTT #### [place] [id number] [facility] US renal BIon 08-17-2024 US renal BI [facility] Main [place] [address] [place] [address] Ultrasound Report Signed Patient: Alethea Lei MR#: [id number] : 1970 Acct:[id number] Age/Sex: 54 / M ADM Date: 08/17/24 Loc: Room: [address] [place] [address] Type: ADM IN Attending Dr: Ritu Cabrera MD Ordering Provider: Daljit Messina DO Date of Service: 08/17/24 US/US renal BI: worsening renal function Copies to: DO Ritu Liang MD BILATERAL RENAL AND BLADDER ULTRASOUND CLINICAL HISTORY: CT on chronic kidney disease COMPARISON: CT 07/07/2022 Estimation of renal size is approximately 10.3 cm on the right and 12.4 cm on the left. The renal contours appears slightly lobulated. No shadowing calculi or hydronephrosis are identified. Small renal cysts are present at the midpole on both sides. The right measures 15 x 12 x 14 mm and the left 18 x 15 x 13 mm. There is no perinephric fluid. The urinary bladder is moderately distended with a volume of 726 mL. Bilateral ureteral jets are visualized. There may be a small amount of debris within the bladder. The wall appears thickened. US/US renal BI IMPRESSION: TINY RENAL CYSTS. NO OBSTRUCTIVE UROPATHY. MODERATELY DISTENDED URINARY BLADDER WITH SLIGHT WALL THICKENING. Impression dictated by: Cheryl Altamirano M.D. 08/17/2024 8:45 AM Dictation Location: [place] [address] Tech: Saskia Jhonatan Transcribed By: WENDY 08/17/24 0845 Dictated By: Cheryl Altamirano MD 08/17/24 0841 Signed By: 08/17/24 0845 Normal [facility] Urine Cultureon 08-16-2024 Bacteria identified Cx Nom (U) 50,000 colonies/ml mixed bacterial skin contaminants 2 Days PERFORMED BY: [place] [address] PATHOLOGIST COMPUTER SYSTEMS ARCHITECT KARLA FAIR M.D. Normal [facility] Comment on above: Performed By: #### C UU #### [address] Urine cultureOrdered By: Julio Cesar Dong on 08-16-2024 Bacteria identified Cx Nom (U) 2 Days [facility] Urine Cultureon 08-14-2024 Bacteria identified Cx Nom (U) >100,000 colonies/ml mixed bacterial skin contaminants 2 Days PERFORMED BY: [place] [address] PATHOLOGIST COMPUTER SYSTEMS ARCHITECT KARLA FAIR M.D. Normal [facility] Comment on above: Performed By: #### B MP, CBC #### [facility] [address] [place] [address] [facility] Urine cultureOrdered By: Devin Weaver on 08-14-2024 Bacteria identified Cx Nom (U) 2 Days [facility] T3 Freeon 08-21-2023 Free T3 [Mass/Vol] 1.8 pg/mL Low 2.0-4.4 [facility] Comment on above: Result Comment: Perf ormed at: [facility] [address] [id number] PhD Jarod Kumar Performed By: #### 2 [id number] #### [facility] [address] [place] [address] [id number] 08-20-2023 HbA1c (Bld) [Mass fraction] 5.1 % Normal <=5.9 [facility] Comment on above: Performed By: #### 7 [id number] #### [facility] [address] [place] [id number] CBC w/Indiceson 08-19-2023 Erythrocyte distribution width (RBC) [Ratio] 13.2 % Normal 10.9-14.2 [facility] Comment on above: Performed By: #### 2 942173 #### [facility] [address] [place] [address] Hematocrit (Bld) [Volume fraction] 39.3 % Normal 37.7-49.0 [facility] Comment on above: Performed By: #### 2 265055 #### [facility] [address] [place] [address] Hemoglobin (Bld) [Mass/Vol] 13.0 g/dL Low 13.5-17.5 [facility] Comment on above: Performed By: #### 2 377713 #### [facility] [address] [place] [address] MCH (RBC) [Entitic mass] 33.1 pg Normal 27.0-34.0 [facility] Comment on above: Performed By: #### 2 656816 #### [facility] [address] [place] [address] MCHC (RBC) [Mass/Vol] 33.2 g/dL Normal 31.4-36.0 [facility] Comment on above: Performed By: #### 2 660118 #### [facility] [address] [place] [address] MCV (RBC) [Entitic vol] 99.7 fL Normal 80.0-100.0 [facility] Comment on above: Performed By: #### 2 561426 #### [facility] [address] [place] [address] Platelet mean volume (Bld) [Entitic vol] 8.9 fL Normal 6.4-10.8 [facility] Comment on above: Performed By: #### 2 692672 #### [facility] [address] [place] [address] Platelets (Bld) [#/Vol] 156.0 E9/L Normal 150.0-500.0 [facility] Comment on above: Performed By: #### 2 525279 #### [facility] [address] [place] [address] RBC (Bld) [#/Vol] 3.9 E12/L Low 4.3-5.9 [facility] Comment on above: Performed By: #### 2 335631 #### [facility] [address] [place] [address] RBC size Nom (Bld) NORMAL Invalid Interpretation Code [facility] Comment on above: Performed By: #### 2 070911 #### [facility] [address] [place] [address] WBC corrected for nucl RBC Auto (Bld) [#/Vol] 5.3 E9/L Normal 4.0-11.0 [facility] Comment on above: Performed By: #### 2 924455 #### [facility] [address] [place] [address] CHEMISTRYOrdered By: SYSTEM SYSTEM on 08-19-2023 25-hydroxyvitamin [...] used for this result was chemiluminescence using [employer]'s Access Hybritech PSA reagent. Protein [Mass/Vol] 6.9 [...] 08-19-2023 Albumin [Mass/Vol] 4.1 g/dL Normal 3.3-5.0 [facility] Comment on above: Performed By: #### 2 701319 #### [facility] [address] [place] [address] Albumin/Globulin (S) [Mass conc ratio] 1.5 Normal 1.1-2.2 [facility] Comment on above: Performed By: #### 2 880338 #### [facility] [address] [place] [address] ALP [Catalytic activity/Vol] 161 Int._Unit/L High 21-98 [facility] Comment on above: Performed By: #### 2 273876 #### [facility] [address] [place] [address] ALT No additional P-5'-P [Catalytic activity/Vol] 30 Int._Unit/L Normal 6-46 [facility] Comment on above: Performed By: #### 2 118435 #### [facility] [address] [place] [address] Anion gap [Moles/Vol] 10 mmol/L Normal 6-16 [facility] Comment on above: Performed By: #### 2 061428 #### [facility] [address] [place] [address] AST [Catalytic activity/Vol] 21 Int._Unit/L Normal 5-43 [facility] Comment on above: Performed By: #### 2 412021 #### [facility] [address] [place] [address] Bilirubin [Mass/Vol] 0.4 mg/dL Normal 0.0-1.1 [facility] Comment on above: Performed By: #### 2 595171 #### [facility] [address] [place] [address] Calcium [Mass/Vol] 8.9 mg/dL Normal 8.9-11.1 [facility] Comment on above: Performed By: #### 2 276481 #### [facility] [address] [place] [address] Chloride [Moles/Vol] 113 mmol/L High 101-111 [facility] Comment on above: Performed By: #### 2 154098 #### [facility] [address] [place] [address] CO2 [Moles/Vol] 24 mmol/L Normal 21-31 [facility] Comment on above: Performed By: #### 2 244204 #### [facility] [address] [place] [address] Creatinine [Mass/Vol] 1.6 mg/dL High 0.5-1.3 [facility] Comment on above: Performed By: #### 2 657241 #### [facility] [address] [place] [address] Globulin (S) [Mass/Vol] 2.8 g/dL Normal 1.4-4.0 [facility] Comment on above: Performed By: #### 2 330452 #### [facility] [address] [place] [address] Glucose [Mass/Vol] 86 mg/dL Normal 55-199 [facility] Comment on above: Performed By: #### 2 221804 #### [facility] [address] [place] [address] Potassium [Moles/Vol] 4.8 mmol/L Normal 3.5-5.3 [facility] Comment on above: Performed By: #### 2 860462 #### [facility] [address] [place] [address] Protein [Mass/Vol] 6.9 g/dL Normal 6.0-7.8 [facility] Comment on above: Performed By: #### 2 374133 #### [facility] [address] [place] [address] Sodium [Moles/Vol] 142 mmol/L Normal 135-145 [facility] Comment on above: Performed By: #### 2 515363 #### [facility] [address] [place] [address] Urea nitrogen [Mass/Vol] 30 mg/dL High 5-21 [facility] Comment on above: Performed By: #### 2 432707 #### [facility] [address] [place] [address] Urea nitrogen/Creatinine [Mass ratio] 19 No Units Normal 10-20 [facility] Comment on above: Performed By: #### 2 347572 #### [facility] [address] [place] [address] Free T4on 08-19-2023 Free T4 [Mass/Vol] 0.56 ng/dL Low 0.58-1.64 [facility] Comment on above: Performed By: #### 2 130015 #### [facility] [address] [place] [address] HEMATOLOGYOrdered By: SYSTEM SYSTEM on 08-19-2023 Erythrocyte [...] 08-19-2023 Cholesterol [Mass/Vol] 108 mg/dL Low 120-200 [facility] Comment on above: Performed By: #### 2 701580 #### [facility] [address] [place] [address] Cholesterol in HDL [Mass/Vol] 34 mg/dL Invalid Interpretation Code [facility] Comment on above: Result Comment: '>= 60 LOW RISK' '<= 40 HIGH RISK' Performed By: #### 2 769805 #### [facility] [address] [place] [address] Cholesterol in LDL [Mass/Vol] 59 mg/dL Normal <=129 [facility] Comment on above: Performed By: #### 2 958193 #### [facility] [address] [place] [address] Cholesterol in VLDL [Mass/Vol] 19 mg/dL Normal 7-40 [facility] Comment on above: Performed By: #### 2 295897 #### [facility] [address] [place] [address] Triglyceride [Mass/Vol] 94 mg/dL Normal <=149 [facility] Comment on above: Performed By: #### 2 439575 #### [facility] [address] [place] [address] PSA Screen, Totalon 08-19-19 24 Prostate specific Ag [Mass/Vol] 0.4 ng/mL Normal 0.1-3.5 [facility] Comment on above: Result Comment: The concentration of PSA determined by different manufacturers can vary due to differences in assay methods and reagent specificity. Values obtained from different assay methods cannot be used interchangeably. The methodology used for this result was chemiluminescence using [employer]'s Access Hybritech PSA reagent. Performed By: #### 1 [id number] #### [facility] [address] [place] [address] Physician Orderon 08-19-2023 Physician Order [id number] 9#1.00TIFF Normal [facility] TSHon 08-19-2023 TSH Qn 0.10 m[IU]/L Low 0.34-5.60 [facility] Comment on above: Performed By: #### 2 384859 #### [facility] [address] [place] [address] Vitamin D 25 Hydroxyon 08-18 25-hydroxyvitamin D3 [Mass/Vol] 42.7 ng/mL Normal 30.0-100.0 [facility] Comment on above: Performed By: #### 5 [id number] #### [facility] [address] [place] [address] eGFRon 08-19-2023 eGFR 50 mL/min/1.73 m2 Low >=59 [facility] Comment on above: Order Comment: Order added by Discern Expert. Performed By: #### 1 [id number] #### [facility] [address] [place] [address] T3 Freeon 02-27-2023 Free T3 [Mass/Vol] 2.0 pg/mL Invalid Interpretation Code 2.0-4.4 [facility] Comment on above: Result Comment: Perf ormed at: [facility] [place] [address] [place], [place] [id number] PhD Jarod Kumar Performed By: #### 2 861382, 8303524, 7279900, 13870586, 541052185, 1859272, 7610354, 9835006, 6400027, 0147070 ####[facility] [address] [place] [address] CBC w/Indiceson 02-25-2023 Erythrocyte distribution width (RBC) [Ratio] 13.2 % Normal 10.9-14.2 [facility] Comment on above: Performed By: #### 2 138814, 9635044, 8518312, 33706032, 679841797, 9766660, 4353379, 1054234, 5467658, 9451559 #### [facility] [address] [place] [address] Hematocrit (Bld) [Volume fraction] 40.6 % Normal 37.7-49.0 [facility] Comment on above: Performed By: #### 2 438900, 4855684, 0408230, 24555139, 879220799, 4346288, 9708809, 3413065, 9678769, 1120214 #### [facility] [address] [place] [address] Hemoglobin (Bld) [Mass/Vol] 13.4 g/dL Low 13.5-17.5 [facility] Comment on above: Performed By: #### 2 418517, 1231258, 5135144, 26682155, 208068658, 6445992, 1325537, 7685399, 8885098, 2461095 #### [facility] [address] [place] [address] MCH (RBC) [Entitic mass] 32.7 pg Normal 27.0-34.0 [facility] Comment on above: Performed By: #### 2 941661, 0362637, 1477586, 68400368, 719749733, 3523423, 7109808, 5125397, 6725050, 2913094 #### [facility] [address] [place] [address] MCHC (RBC) [Mass/Vol] 33.0 g/dL Normal 31.4-36.0 [facility] Comment on above: Performed By: #### 2 066929, 7006061, 9765651, 29428952, 283477857, 0548800, 4869968, 7734266, 1555262, 6748011 #### [facility] [address] [place] [address] MCV (RBC) [Entitic vol] 99.1 fL Normal 80.0-100.0 [facility] Comment on above: Performed By: #### 2 160565, 5747712, 7406435, 76571299, 327390840, 2171360, 9759814, 6235090, 0676817, 6295697 #### [facility] [address] [place] [address] Platelet mean volume (Bld) [Entitic vol] 9.6 fL Normal 6.4-10.8 [facility] Comment on above: Performed By: #### 2 572048, 4540929, 6295754, 39634495, 694319139, 2591493, 5397533, 0446081, 0338899, 3690174 #### [facility] [address] [place] [address] Platelets (Bld) [#/Vol] 170.0 E9/L Normal 150.0-500.0 [facility] Comment on above: Performed By: #### 2 693791, 8165386, 1751797, 56187906, 464546747, 1999222, 2820179, 5380969, 4877203, 8141726 #### [facility] [address] [place] [address] RBC (Bld) [#/Vol] 4.1 E12/L Low 4.3-5.9 [facility] Comment on above: Performed By: #### 2 077925, 7451874, 8575468, 54687791, 962359024, 2751650, 4658320, 4341180, 8150370, 1915713 #### [facility] [address] [place] [address] WBC corrected for nucl RBC Auto (Bld) [#/Vol] 4.4 E9/L Normal 4.0-11.0 [facility] Comment on above: Performed By: #### 2 477243, 1415776, 6116495, 91351333, 346240763, 6853927, 2319907, 2923312, 5051586, 1282561 #### [facility] [address] [place] [address] CHEMISTRYOrdered By: SYSTEM SYSTEM on 02-25-2023 Albumin [...] 02-25-2023 Albumin [Mass/Vol] 4.1 g/dL Normal 3.3-5.0 [facility] Comment on above: Performed By: #### 2 850860, 9703222, 8739752, 98681087, 990497263, 5601095, 5441970, 3139882, 5095217, 1312992 #### [facility] [address] [place] [address] Albumin/Globulin [Mass ratio] 1.4 {ratio} Normal 1.1-2.2 [facility] Comment on above: Performed By: #### 2 977637, 3348318, 2607317, 98997561, 619750301, 1717353, 5212512, 4253531, 6973008, 9850949 #### [facility] [address] [place] [address] Alk Phos 158 Int._Unit/L High 21-98 [facility] Comment on above: Performed By: #### 2 223136, 1863585, 1187450, 63726890, 328147625, 7602902, 7603587, 7674655, 0134675, 2284529 #### [facility] [address] [place] [address] ALT 32 Int._Unit/L Normal 6-46 [facility] Comment on above: Performed By: #### 2 690132, 4500207, 2712841, 25696132, 972746575, 7326674, 8797726, 4912410, 2843067, 2111123 #### [facility] [address] [place] [address] Anion gap [Moles/Vol] 12 mmol/L Normal 6-16 [facility] Comment on above: Performed By: #### 2 268875, 8769781, 8929552, 60887036, 111303213, 9479060, 6318043, 7834955, 7730120, 2415942 #### [facility] [address] [place] [address] AST 25 Int._Unit/L Normal 5-43 [facility] Comment on above: Performed By: #### 2 468263, 6735326, 5245334, 65256623, 054453784, 6294267, 3626600, 2791298, 1952565, 6362527 #### [facility] [address] [place] [address] Bili Total 0.3 mg/dL Normal 0.0-1.1 [facility] Comment on above: Performed By: #### 2 884583, 9795535, 4440705, 22153635, 003556163, 9303400, 0247679, 4045572, 3959147, 7869855 #### [facility] [address] [place] [address] BUN/Creat Ratio 17 No Units Normal 10-20 [facility] Comment on above: Performed By: #### 2 241503, 8138605, 2517414, 99792750, 742629281, 4770008, 0170296, 8370681, 7968419, 9610417 #### [facility] [address] [place] [address] Calcium [Mass/Vol] 8.9 mg/dL Normal 8.9-11.1 [facility] Comment on above: Performed By: #### 2 188585, 9707606, 2294189, 03129235, 964153066, 4866878, 4653946, 0623848, 0851849, 0014345 #### [facility] [address] [place] [address] Chloride [Moles/Vol] 113 mmol/L High 101-111 [facility] Comment on above: Performed By: #### 2 419943, 4301024, 0298928, 25903530, 282750269, 1706761, 1840829, 0662396, 4585623, 9764766 #### [facility] [address] [place] [address] CO2 [Moles/Vol] 22 mmol/L Normal 21-31 [facility] [facility] Comment on above: Performed By: #### 2 753002, 7470320, 6467512, 36779272, 114480045, 8820638, 6556265, 2058205, 6922459, 4737129 #### [facility] [address] [place] [address] Creatinine [Mass/Vol] 1.5 mg/dL High 0.5-1.3 [facility] Comment on above: Performed By: #### 2 370265, 8321523, 6700874, 03091430, 758663672, 5902352, 1342524, 2831957, 8196975, 2550895 #### [facility] [address] [place] [address] Globulin (S) [Mass/Vol] 2.9 g/dL Normal 1.4-4.0 [facility] Comment on above: Performed By: #### 2 383050, 7428089, 7627124, 69356153, 824953730, 9228207, 8775984, 5848234, 9442220, 0315346 #### [facility] [address] [place] [address] Glucose [Mass/Vol] 90 mg/dL Normal 55-199 [facility] Comment on above: Performed By: #### 2 986793, 1435195, 3988887, 43130097, 678028780, 9740555, 5520576, 2896440, 9836315, 0098732 #### [facility] [address] [place] [address] Potassium [Moles/Vol] 4.8 mmol/L Normal 3.5-5.3 [facility] Comment on above: Performed By: #### 2 112189, 8423926, 4605055, 09660498, 759044911, 3405656, 4271923, 9151911, 3999033, 7048064 #### [facility] [address] [place] [address] Protein [Mass/Vol] 7.0 g/dL Normal 6.0-7.8 [facility] Comment on above: Performed By: #### 2 033499, 4438537, 7175182, 82548083, 279645713, 4599511, 4431188, 2814386, 7431512, 4024622 #### [facility] [address] [place] [address] Sodium [Moles/Vol] 142 mmol/L Normal 135-145 [facility] Comment on above: Performed By: #### 2 266793, 5067855, 2965435, 73113313, 068720885, 1773937, 6945996, 0060420, 3162405, 7248719 #### [facility] [address] [place] [address] Urea nitrogen [Mass/Vol] 26 mg/dL High 5-21 [facility] Comment on above: Performed By: #### 2 773065, 4380982, 2732460, 08804762, 308063490, 7681700, 2491271, 5674158, 7846753, 9574686 #### [facility] [address] [place] [address] Free T4on 02-25-2023 Free T4 [Mass/Vol] 0.66 ng/dL Normal 0.58-1.64 [facility] Comment on above: Performed By: #### 2 478152, 9928998, 9562152, 99948468, 929145749, 9298870, 9753030, 9762441, 2606290, 0909322 #### [facility] [address] [place] [address] HEMATOLOGYOrdered By: Clarence Srivastava on 02-25-2023 Erythrocyte [...] 4.4 E9/L Normal 4.0 - 11.0 E9/L [facility] HemeAutoSS Ironon 02-25-2023 Iron 130 microgram/dL Normal 35-153 [facility] Comment on above: Performed By: #### 2 352211, 2289577, 8450096, 30380124, 859606174, 8535168, 0343779, 4122033, 0030837, 7161140 #### [facility] [address] [place] [address] Lipid Panelon 02-25-2023 Cholesterol [Mass/Vol] 105 mg/dL Low 120-200 [facility] Comment on above: Performed By: #### 2 271354, 7311714, 6491033, 72856224, 075156623, 8750801, 5187046, 7463467, 7730506, 2354976 #### [facility] [address] [place] [address] Cholesterol in HDL [Mass/Vol] 40 mg/dL Invalid Interpretation Code [facility] Comment on above: Result Comment: '>= 60 LOW RISK' '<= 40 HIGH RISK' Performed By: #### 2 126327, 5193038, 7087069, 63426871, 616799416, 2696246, 6884245, 9050996, 4559711, 6031393 #### [facility] [address] [place] [address] Cholesterol in LDL [Mass/Vol] 54 mg/dL Normal <=129 [facility] Comment on above: Performed By: #### 2 361979, 1748987, 1012920, 11800111, 056859418, 4999780, 4390452, 0035311, 7072050, 4819594 #### [facility] [address] [place] [address] Cholesterol in VLDL [Mass/Vol] 16 mg/dL Normal 7-40 [facility] Comment on above: Performed By: #### 2 095755, 5937476, 9051262, 72503909, 131600125, 6889866, 1896350, 1101186, 2238760, 3212781 #### [facility] [address] [place] [address] Triglyceride [Mass/Vol] 81 mg/dL Normal <=149 [facility] Comment on above: Performed By: #### 2 467481, 6612529, 2878392, 02146209, 378019964, 5239888, 7555342, 5150709, 4205041, 3565923 #### [facility] [address] [place] [address] Physician Orderon 02-25-2023 Physician Order [id number] 5#1.00TIFF Normal [facility] TSHon 02-25-2023 TSH Qn 0.03 m[IU]/L Low 0.34-5.60 [facility] Comment on above: Performed By: #### 2 103026, 3945129, 2156499, 21121256, 924707814, 7567094, 7748446, 1264808, 2168704, 9956532 #### [facility] [address] [place] [address] Vit B12on 02-25-2023 Cobalamin (Vitamin B12) [Mass/Vol] 483 pg/mL Normal 50-1500 [facility] Comment on above: Performed By: #### 2 980721, 0172418, 7546652, 79586189, 979013612, 7589068, 0985373, 1506134, 5207063, 2399298 #### [facility] [address] [place] [address] Vitamin D 25 Hydroxyon 02-25 Vitamin D 25 Hydroxy 50.9 ng/mL Normal 30.0-100.0 [facility] Comment on above: Performed By: #### 2 147510, 9198955, 0975243, 35383444, 541151326, 5343895, 2660935, 9675122, 7592214, 8181735 ####[facility] [address] [place] [address] eGFRon 02-25-2023 eGFR 55 mL/min/1.73 m2 Low >=59 [facility] Comment on above: Order Comment: Order added by Discern Expert. Performed By: #### 2 184999, 7455612, 7432359, 36736206, 607940630, 6595671, 0532663, 8748908, 0553365, 6291745 #### [facility] [address] [place] [address] PSA Screen, Totalon 11-14-19 23 Prostate specific Ag [Mass/Vol] 0.5 ng/mL Normal 0.1-3.5 [facility] Comment on above: Result Comment: The concentration of PSA determined by different manufacturers can vary due to differences in assay methods and reagent specificity. Values obtained from different assay methods cannot be used interchangeably. The methodology used for this result was chemiluminescence using [employer]'s Access Hybr[employer]ch PSA reagent. Performed By: #### 1 3877101 ####[facility] [address] [place] [address] Physician Orderon 11-12-2022 Physician Order [id number] 7#1.00CD:127 Normal [facility] US KIDNEYS BLADDERon 023 US KIDNEYS [...] by: NORMA ROSS Date: 2022-05-27 08:52 Normal [facility] XR PELVIS 1_2 VIEWSon 2022 XR [...] JONAH MAJANO Date: 2022-04-14 08:21 Normal [facility] XR HIP RT 2 3V WO [...] by: NORMA BROWN Date: 2022-04-10 08:41 Normal [facility] Glucose Glucometer (BldC) [M ass/Vol]Ordered By: Nallely Parada on 03-12-2022 Glucose [Mass/Vol] 95 mg/dL [facility] Comment on above: Random Glucose Refer ence Range is dependent on time and content of last meal. Glucose of more than 200 mg/dL in a nonstressed, ambulatory subject supports the diagnosis of Diabetes Mellitus. CBC AUTO DIFFon 03-11-2022 BASO # 0.0 103/ul Normal 0.0-0.1 [facility] Comment on above: Performed By: #### C BC ####[facility] [address] [place] [address]DrCarol Mayo Basophils/100 WBC (Bld) 0.6 % Normal 0.2-2.0 [facility] Comment on above: Performed By: #### C BC ####[facility] [address] [place], [place] [address]DrCarol Mayo EO # 0.2 103/ul Normal 0.0-0.7 [facility] Comment on above: Performed By: #### C BC ####[facility] [address] [place] [address]DrCarol Mayo Eosinophils/100 WBC (Bld) 2.8 % Normal 0.9-7.0 [facility] Comment on above: Performed By: #### C BC ####[facility] [address] [place] [address]DrCarol Mayo Erythrocyte distribution width (RBC) [Ratio] 12.6 % Normal 11.0-15.0 [facility] Comment on above: Performed By: #### C BC ####[facility] [address] [place], [place] [address]DrCarol Mayo Hematocrit (Bld) [Volume fraction] 40.4 % Critically low 42.0-54.0 [facility] Comment on above: Performed By: #### C BC ####[facility] [address] [place], [place] [address]DrCarol Mayo Hemoglobin (Bld) [Mass/Vol] 13.7 g/dL Critically low 14.0-18.0 [facility] Comment on above: Performed By: #### C BC ####[facility] [address] [place] [address]DrCarol Mayo IG # 0.02 10e3/ul Normal 0.00-0.03 [facility] Comment on above: Performed By: #### C BC ####[facility] [address] [place], [place] [address]Dr. Guille Mayo IG % 0.4 % Normal 0.0-0.5 [facility] Comment on above: Performed By: #### C BC ####[facility] [address] [place], [place] [address]DrCarol Mayo LYMPH # 1.1 103/ul Critically low 1.2-3.8 [facility] Comment on above: Performed By: #### C BC ####[facility] [address] [place], [place] [address]DrCarol Mayo Lymphocytes/100 WBC (Bld) 20.8 % Normal 20.5-60.0 [facility] Comment on above: Performed By: #### C BC ####[facility] [address] [place], [place] [address]DrCarol Mayo MANUAL DIFF REQ NO Normal [facility] Comment on above: Performed By: #### C BC ####[facility] [address] [place], [place] [address]DrCarol Mayo MCH (RBC) [Entitic mass] 32.3 pg Normal 25.9-34.0 [facility] Comment on above: Performed By: #### C BC ####[facility] [address] [place], [place] [address]DrCarol Mayo MCHC (RBC) [Mass/Vol] 33.9 g/dL Normal 29.9-35.2 [facility] Comment on above: Performed By: #### C BC ####[facility] [address] [place], [place] [address]Dr. Guille Mayo MCV (RBC) [Entitic vol] 95.3 fL Critically high 80.0-94.0 [facility] Comment on above: Performed By: #### C BC ####[facility] [address] [place] [address]DrCarol Mayo MONO # 0.4 103/ul Normal 0.3-0.8 [facility] Comment on above: Performed By: #### C BC ####[facility] [address] [place], [place] [address]DrCarol Guille Mayo Monocytes/100 WBC (Bld) 7.4 % Normal 1.7-12.0 [facility] Comment on above: Performed By: #### C BC ####[facility] [address] [place], [place] [address]DrCarol Guille Mayo NEUT # 3.7 103/ul Normal 1.4-6.5 [facility] Comment on above: Performed By: #### C BC ####[facility] [address] [place], [place] [address]DrCarol Guille Mayo Neutrophils/100 WBC (Bld) 68.0 % Normal 43.0-75.0 [facility] Comment on above: Performed By: #### C BC ####[facility] [address] [place], [place] [address]DrCarol Guille Mayo Platelet mean volume (Bld) [Entitic vol] 10.4 fL Normal 9.5-13.5 [facility] Comment on above: Performed By: #### C BC ####[facility] [address] [place], [place] [address]DrCarol Guille Mayo PLT 133 103/ul Critically low 150-450 [facility] Comment on above: Performed By: #### C BC ####[facility] [address] [place], [place] [address]DrCarol Guille Gael RBC 4.24 106/ul Critically low 4.70-6.10 [facility] Comment on above: Performed By: #### C BC ####[facility] [address] [place], [place] [address]DrCarol Mayo WBC 5.4 103/ul Normal 4.0-11.0 [facility] Comment on above: Performed By: #### C BC ####[facility] [address] [place], [place] [address]QmDr. Guille Mayo FREE T4on 03-11-2022 Free T4 [Mass/Vol] 0.68 ng/dL Critically low 0.76-1.46 [facility] Comment on above: Performed By: #### F T4 #### [facility] [address] [place], [place] [address] Dr. Guille Mayo LIPID PROFILEon 03-11-2022 CHOL-HDL RATIO NORM SEE BELOW Normal [facility] Comment on above: Result Comment: 3.3 - 4.4 LOW RISK 4.4 - 7.1 AVERAGE RISK 7.1 - 11.0 MODERATE RISK >11.0 HIGH RISK Performed By: #### L IPID, TSH, CMP #### [facility] [address] [place] [address] [address] Guille Mayo Cholesterol [Mass/Vol] 130 mg/dL Normal <=200 [facility] Comment on above: Performed By: #### L IPID, TSH, CMP #### [facility] [address] [place] [address] [address] Guille Mayo Cholesterol in HDL [Mass/Vol] 45 mg/dL Normal 40-60 [facility] Comment on above: Performed By: #### L IPID, TSH, CMP #### [facility] [address] [place] [address] [address] Guille Mayo Cholesterol in LDL [Mass/Vol] 67.6 mg/dL Normal [facility] Comment on above: Performed By: #### L IPID, TSH, CMP #### [facility] [address] [place] [address] [address] Guille Mayo Cholesterol.total/Cho lesterol in HDL [Mass ratio] 2.9 {ratio} Normal [facility] Comment on above: Performed By: #### L IPID, TSH, CMP #### [facility] [address] [place] [address] [address] Guille Mayo HDL NORMAL > or = 60 mg/dl - LOW CARDIOVASCULAR RISK <40 mg/dl - HIGH CARDIOVASCULAR RISK Normal [facility] Comment on above: Performed By: #### L IPID, TSH, CMP #### [facility] [address] [place] [address] [address] Guille Mayo LDL CALC NORMAL SEE BELOW Normal [facility] Comment on above: Result Comment: <100 mg/dl OPTIMAL 100 - 129 mg/dl NEAR OR ABOVE OPTIMAL 130 - 159 mg/dl BORDERLINE HIGH 160 - 189 mg/dl HIGH >190 mg/dl VERY HIGH Performed By: #### L IPID, TSH, CMP #### [facility] [address] [place] [address] [address] Guille Mayo Triglyceride [Mass/Vol] 87 mg/dL Normal <=150 [facility] Comment on above: Performed By: #### L IPID, TSH, CMP #### [facility] [address] [place] [address] [address] Guille Mayo VLDL CALC 17.4 mg/dL Normal [facility] Comment on above: Performed By: #### L IPID, TSH, CMP #### [facility] [address] [place] [address] [address] Guille Mayo PROF 14(COMP METB)on 023 Albumin [Mass/Vol] 3.8 g/dL Normal 3.4-5.0 [facility] Comment on above: Performed By: #### L IPID, TSH, CMP #### [facility] [address] [place] [address] [address] Guille Mayo Albumin/Globulin [Mass ratio] 1.0 {ratio} Normal [facility] Comment on above: Performed By: #### L IPID, TSH, CMP #### [facility] [address] [place] [address] [address] Guille Mayo ALP [Catalytic activity/Vol] 217 U/L Critically high 46-116 [facility] Comment on above: Performed By: #### L IPID, TSH, CMP #### [facility] [address] [place] [address] [address] Guille Mayo ALT [Catalytic activity/Vol] 38 U/L Normal 16-63 [facility] Comment on above: Performed By: #### L IPID, TSH, CMP #### [facility] [address] [place] [address] [address] Guille Mayo Anion gap [Moles/Vol] 12.2 mmol/L Normal [facility] Comment on above: Performed By: #### L IPID, TSH, CMP #### [facility] [address] [place] [address] [address] Guille Mayo AST [Catalytic activity/Vol] 32 U/L Normal 15-37 [facility] Comment on above: Performed By: #### L IPID, TSH, CMP #### [facility] [address] [place] [address] Dr. Guille Mayo Bilirubin [Mass/Vol] 0.3 mg/dL Normal 0.2-1.0 [facility] Comment on above: Performed By: #### L IPID, TSH, CMP #### [facility] [address] [place] [address] Dr. Guille Mayo Calcium [Mass/Vol] 9.3 mg/dL Normal 8.5-10.1 [facility] Comment on above: Performed By: #### L IPID, TSH, CMP #### [facility] [address] [place] [address] Dr. Gulile Mayo Chloride [Moles/Vol] 106 mmol/L Normal 98-107 [facility] Comment on above: Performed By: #### L IPID, TSH, CMP #### [facility] [address] [place] [address] Dr. Guille Mayo CO2 [Moles/Vol] 27.2 mmol/L Normal 21.0-32.0 [facility] Comment on above: Performed By: #### L IPID, TSH, CMP #### [facility] [address] [place] [address] Dr. Guille Mayo Creatinine [Mass/Vol] 1.31 mg/dL Critically high 0.70-1.30 [facility] Comment on above: Performed By: #### L IPID, TSH, CMP #### [facility] [address] [place] [address] [address] Guille Mayo EGFR-AF PALESTINIAN >60 Normal >=60 [facility] Comment on above: Performed By: #### L IPID, TSH, CMP #### [facility] [address] [place] [address] [address] Guille Mayo EGFR-NON AF PALESTINIAN 57 mL/min/1.73m2 Critically low >=60 [facility] Comment on above: Performed By: #### L IPID, TSH, CMP #### [facility] [address] [place] [address] [address] Guille Mayo Globulin (S) [Mass/Vol] 3.8 g/dL Normal [facility] Comment on above: Performed By: #### L IPID, TSH, CMP #### [facility] [address] [place] [address] Dr. Guille Mayo Glucose [Mass/Vol] 98 mg/dL Normal 74-106 [facility] Comment on above: Performed By: #### L IPID, TSH, CMP #### [facility] [address] [place] [address] [address] uGille Mayo Potassium [Moles/Vol] 4.4 mmol/L Normal 3.5-5.1 [facility] Comment on above: Performed By: #### L IPID, TSH, CMP #### [facility] [address] [place] [address] [address] Guille Mayo Protein [Mass/Vol] 7.6 g/dL Normal 6.4-8.2 [facility] Comment on above: Performed By: #### L IPID, TSH, CMP #### [facility] [address] [place] [address] [address] Guille Mayo Sodium [Moles/Vol] 141 mmol/L Normal 136-145 [facility] Comment on above: Performed By: #### L IPID, TSH, CMP #### [facility] [address] [place] [address] [address] Guille Mayo Urea nitrogen [Mass/Vol] 27.0 mg/dL Critically high 7.0-18.0 [facility] Comment on above: Performed By: #### L IPID, TSH, CMP #### [facility] [address] [place], [place] [address] Dr. Guille Mayo Urea nitrogen/Creatinine [Mass ratio] 20.6 mg/mg Normal [facility] Comment on above: Performed By: #### L IPID, TSH, CMP #### [facility] [address] [place], [place] [address] Dr. Guille Mayo TSHon 03-11-2022 TSH 0.278 uIU/mL Critically low 0.358-3.740 [facility] Comment on above: Performed By: #### L IPID, TSH, CMP ####[facility] [address] [place], [place] [address]PpDr. Guille Mayo XR ankle RT min 3V*on 2021 XR ankle RT min 3V* [facility] [employer] Other XR ankle RT min 3V* [facility] [employer] Other XR ankle RT min 3V* [address] [place] [address] [employer] Other XR ankle RT min 3V* [place] [address] [employer] Other XR ankle RT min 3V* XRay Report Nort [employer] Other XR ankle RT min 3V* Signed [employer] Other XR ankle RT min 3V* Patient: Alethea Lei MR#: [id number] [employer] Other XR ankle RT min 3V* : 1970 Acct:[id number] [employer] Other XR ankle RT min 3V* Age/Sex: 51 / M ADM Date: 01/06/22 [employer] Other XR ankle RT min 3V* Loc: [facility] Room: Type: [facility] [employer] Other XR ankle RT min 3V* Attending Dr: Cj Gayle DO [employer] Other XR ankle RT min 3V* Copies to: Cj Gayle, [employer] Other XR ankle RT min 3V* Ordering Provider: Cj Gayle DO [employer] Other XR ankle RT min 3V* Date of Service: 01/06/22 [employer] Other XR ankle RT min 3V* XR/XR ankle RT min 3V*: Displaced fracture of lateral malleolus of right [employer] Other XR ankle RT min 3V* fibula, sub Nort [employer] Other XR ankle RT min 3V* 3views Rightankle [employer] Other XR ankle RT min 3V* COMPARISON:11/22/21 [employer] Other XR ankle RT min 3V* HISTORY: Status post ORIF RIGHT lateral malleolus fracture [employer] Other XR ankle RT min 3V* No hardware failure. Adequate bony alignment. Continued healing of distal fibular fracture. [employer] Other XR ankle RT min 3V* XR/XR ankle RT min 3V* [employer] Other XR ankle RT min 3V* IMPRESSION: Healing fracture. No hardware failure. [employer] Other XR ankle RT min 3V* Impression dictated by: Geovanny Magallanes M.D.01/06/2022 3:54 PM [employer] Other XR ankle RT min 3V* Dictation Location: [place] [address] [employer] Other XR ankle RT min 3V* Transcribed By: WENDY 01/06/22 1554 [employer] Other XR ankle RT min 3V* Dictated By: Geovanny Magallanes DO 01/06/22 1553 [facility] [employer] Other XR ankle RT min 3V* Signed By: [place] [employer] Other XR ankle RT min 3V* 01/06/22 1554 [facility] [employer] Other Progress Noteson 12-04-2021 [employer] Authentication Interface Message Text Normal [facility] [employer] Authentication Interface Message Text ----- Saturday, December 04, 2021 at 11:22:04 AM ----- ----- Provider: [id number] Thomas -- Clinic: [place] ----- [facility], Pt is ready for tx. Pt presented with caries Radiograph taken today: none Discussed the medical necessity of the problem with the pt. Instructions given to pt. Caregiver understood the situation and is okay with medications for today. Pt will come back should things get worse. Guardianship: PARENTS - [place] [address] / Email: [email or web address] Communicated with caregiver that the pt was placed on the OR list and we will call with appt. Limited exam completed by Dr. Noel STEPHENS. OR ----- Signed on Saturday, December 04, 2021 at 11:51:43 AM ----- ----- Provider: [id number] Tucker Myers DDS -- Clinic: [place] ----- Normal [facility] XR ankle RT min 3V*on 2021 XR ankle RT min 3V* [facility] [employer] Other XR ankle RT min 3V* [facility] [employer] Other XR ankle RT min 3V* [address] [facility] [employer] Other XR ankle RT min 3V* [place] [address] [facility] [employer] Other XR ankle RT min 3V* XRay Report Nort [employer] Other XR ankle RT min 3V* Signed [employer] Other XR ankle RT min 3V* Patient: Alethea Lei MR#: [id number] [employer] Other XR ankle RT min 3V* : 1970 Acct:[id number] [employer] Other XR ankle RT min 3V* Age/Sex: 51 / M ADM Date: 10/16/21 [employer] Other XR ankle RT min 3V* Loc: [facility] Room: Type: [facility] [employer] Other XR ankle RT min 3V* Attending Dr: Cj Gayle DO [employer] Other XR ankle RT min 3V* Copies to: Cj Gayle DO [employer] Other XR ankle RT min 3V* Ordering Provider: Cj Gayle DO [employer] Other XR ankle RT min 3V* Date of Service: 10/16/21 [employer] Other XR ankle RT min 3V* XR/XR ankle RT min 3V*: Displaced fracture of lateral malleolus of right [employer] Other XR ankle RT min 3V* [facility], [facility] [employer] Other XR ankle RT min 3V* RIGHT ANKLE - 3 views [employer] Other XR ankle RT min 3V* CLINICAL HISTORY: ORIF right lateral malleolus fracture. Follow up [employer] Other XR ankle RT min 3V* COMPARISON: Intraoperative study 09/24/2021 [employer] Other XR ankle RT min 3V* FINDINGS: [employer] Other XR ankle RT min 3V* syndesmotic screw without evidence of hardware complication. Fracture line is still evident [employer] Other XR ankle RT min 3V* suggestive of incomplete healing. Medial malleolar fracture is unchanged.. Soft tissue swelling. [employer] Other XR ankle RT min 3V* Plantar spurring. [employer] Other XR ankle RT min 3V* XR/XR ankle RT min 3V* [employer] Other XR ankle RT min 3V* IMPRESSION: [employer] Other XR ankle RT min 3V* NO EVIDENCE OF HARDWARE COMPLICATION. [employer] Other XR ankle RT min 3V* Impression dictated by: Muna Cee Jr.OCarol10/16/2021 1:10 PM [employer] Other XR ankle RT min 3V* Dictation Location: [facility]- [employer] Other XR ankle RT min 3V* Transcribed By: PWS 10/16/21 1310 [employer] Other XR ankle RT min 3V* Dictated By: Panda De Guzman Jr DO 10/16/21 1307 [employer] Other XR ankle RT min 3V* Signed By: [employer] Other XR ankle RT min 3V* 10/16/21 1310 No rt [employer] Other COVID-19 Positive/NegativeOr dered By: Cj Gayle on 09-23-2021 SARS-CoV-2 (COVID-19) N gene GARY+probe Ql (Resp) Negative Negative [facility] Comment on above: Testing for SARS-CoV -2 by RT-PCR This test was developed and its performance characteristics determined by [employer] ([place]) and validated at the [facility]. This test has not been [...] 09-18-2021 BASO # 0.0 103/ul Normal 0.0-0.1 [facility] Comment on above: Performed By: #### C BC ####[facility] S[address] [place], [place] [address]Dr. Guille Mayo Basophils/100 WBC (Bld) 0.2 % Normal 0.2-2.0 [facility] Comment on above: Performed By: #### C BC ####[facility] W[address] [place], [place] [address]DrCarol Mayo EO # 0.1 103/ul Normal 0.0-0.7 [facility] Comment on above: Performed By: #### C BC ####[facility] W[address] [place], [place] [address]DrCarol Mayo Eosinophils/100 WBC (Bld) 1.2 % Normal 0.9-7.0 [facility] Comment on above: Performed By: #### C BC ####[facility] [address] [place], [place] [address]DrCarol Mayo Erythrocyte distribution width (RBC) [Ratio] 12.2 % Normal 11.0-15.0 [facility] Comment on above: Performed By: #### C BC ####[facility] A[address]wl[address]cat[address] [place], [place] [address]DrCarol Mayo Hematocrit (Bld) [Volume fraction] 38.0 % Critically low 42.0-54.0 [facility] Comment on above: Performed By: #### C BC ####[facility] [address] [place] [address]Dr. Guille Mayo Hemoglobin (Bld) [Mass/Vol] 12.8 g/dL Critically low 14.0-18.0 [facility] Comment on above: Performed By: #### C BC ####[facility] [address] [place] [address]Dr. Guille Mayo IG # 0.03 10e3/ul Normal 0.00-0.03 [facility] Comment on above: Performed By: #### C BC ####[facility] [address] [place], [place] [address]Dr. Guille Mayo IG % 0.4 % Normal 0.0-0.5 [facility] Comment on above: Performed By: #### C BC ####[facility] Z[address] [place], [place] [address]Dr. Guille Mayo LYMPH # 0.9 103/ul Critically low 1.2-3.8 [facility] Comment on above: Performed By: #### C BC ####[facility] [address] [place], [place] [address]Dr. Guille Mayo Lymphocytes/100 WBC (Bld) 10.7 % Critically low 20.5-60.0 [facility] Comment on above: Performed By: #### C BC ####[facility] [address]uz[address] [place], [place] [address]Dr. Guille Mayo MANUAL DIFF REQ NO Normal [facility] Comment on above: Performed By: #### C BC ####[facility] [address] [place] [address]Dr. Guille Mayo MCH (RBC) [Entitic mass] 32.2 pg Normal 25.9-34.0 [facility] Comment on above: Performed By: #### C BC ####[facility] F[address] [place], [place] [address]Dr. Guille Mayo MCHC (RBC) [Mass/Vol] 33.7 g/dL Normal 29.9-35.2 [facility] Comment on above: Performed By: #### C BC ####[facility] [address] [place] [id number]. Guille Mayo MCV (RBC) [Entitic vol] 95.7 fL Critically high 80.0-94.0 [facility] Comment on above: Performed By: #### C BC ####[facility] [address] [place] [address]Dr. Guille Mayo MONO # 0.7 103/ul Normal 0.3-0.8 [facility] Comment on above: Performed By: #### C BC ####[facility] [address] [place] [address]Dr. Guille Mayo Monocytes/100 WBC (Bld) 9.0 % Normal 1.7-12.0 [facility] Comment on above: Performed By: #### C BC ####[facility] Nari[address] [place], [place] [address]Dr. Guille Mayo NEUT # 6.4 103/ul Normal 1.4-6.5 [facility] Comment on above: Performed By: #### C BC ####[facility] [address] [place] [address]Dr. Guille Mayo Neutrophils/100 WBC (Bld) 78.5 % Critically high 43.0-75.0 [facility] Comment on above: Performed By: #### C BC ####[facility] [address] [place] [address]Dr. Guille Gael Platelet mean volume (Bld) [Entitic vol] 9.9 fL Normal 9.5-13.5 [facility] Comment on above: Performed By: #### C BC ####[facility] [address] [place] [address]Dr. Guille Mayo PLT 152 103/ul Normal 150-450 [facility] Comment on above: Performed By: #### C BC ####[facility] [address] [place] [address]Dr. Kylahizzy Gael RBC 3.97 106/ul Critically low 4.70-6.10 [facility] Comment on above: Performed By: #### C BC ####[facility] [address] [place], [place] [address]KyCarol Mayo WBC 8.1 103/ul Normal 4.0-11.0 [facility] Comment on above: Performed By: #### C BC ####[facility] [address] [place], [place] [address] HEAD WO CONon 09-18-2021 [...] SANDY DÍAZ Date: 2021-09-18 15:44 Normal [facility] Covid-19 PCR (CVDTB)on 08-24 SARS-CoV-2 (COVID-19) RNA GARY+probe Ql (Unsp spec) Not detected Normal NOT DETECTED [facility] Comment on above: Result Comment: When [...] for this test is supported by the [place] of Health and Human Service's declaration that [...] be used). Performed By: #### C VDTB ####[facility] [address] [place] [address]Dr. Guille Mayo PROF CHEM 8 (BAS METB)on Anion gap [Moles/Vol] 12.4 mmol/L Normal [facility] Comment on above: Performed By: #### B MP ####[facility] [address] [place], [place] [address]Dr. Guille Mayo Calcium [Mass/Vol] 8.7 mg/dL Normal 8.5-10.1 [facility] Comment on above: Performed By: #### B MP ####[facility] [address] [place], [place] [address]Dr. Guille Mayo Chloride [Moles/Vol] 107 mmol/L Normal 98-107 [facility] Comment on above: Performed By: #### B MP ####[facility] [address] [place], [place] [address]Dr. Guille Mayo CO2 [Moles/Vol] 28.0 mmol/L Normal 21.0-32.0 [facility] Comment on above: Performed By: #### B MP ####[facility] [address] [place], [place] [address]Dr. Guille Mayo Creatinine [Mass/Vol] 1.45 mg/dL Critically high 0.70-1.30 [facility] Comment on above: Performed By: #### B MP ####[facility] [address] [place], [place] [address]Dr. Guille Mayo EGFR-AF PALESTINIAN >60 Normal >=60 [facility] Comment on above: Performed By: #### B MP ####[facility] [address] [place], [place] [address]Dr. Guille Mayo EGFR-NON AF PALESTINIAN 51 mL/min/1.73m2 Critically low >=60 [facility] Comment on above: Performed By: #### B MP ####[facility] [address] [place], [place] [address]As. Guille Mayo Glucose [Mass/Vol] 87 mg/dL Normal 74-106 [facility] Comment on above: Performed By: #### B MP ####[facility] [address] [place], [place] [address]Rk. Guille Mayo Potassium [Moles/Vol] 4.4 mmol/L Normal 3.5-5.1 [facility] Comment on above: Performed By: #### B MP ####[facility] [address] [place], [place] [address]Ko. Guille Mayo Sodium [Moles/Vol] 143 mmol/L Normal 136-145 [facility] Comment on above: Performed By: #### B MP ####[facility] [address] [place], [place] [address]Mj. Guille Mayo Urea nitrogen [Mass/Vol] 24.0 mg/dL Critically high 7.0-18.0 [facility] Comment on above: Performed By: #### B MP ####[facility] [address] [place] [id number]. Guille Mayo Urea nitrogen/Creatinine [Mass ratio] 16.6 mg/mg Normal [facility] Comment on above: Performed By: #### B MP ####[facility] [address] [place], [place] [address]Po. Guille Mayo XR CHEST 1 Von 09-18-2021 [...] SANDY DÍAZ Date: 2021-09-18 15:36 Normal [facility] CT CHEST WO CONon 08-02-2021 [...] NORMA ROSS Date: 2021-08-02 08:52 Normal [facility] XR DEXA BONE DENSITYon 07-31 XR [...] NORMA ROSS Date: 2021-07-31 16:14 Normal [facility] Anesthesia Attestationon [employer] Authentication Interface Message Text Anesthesia Attestation ATTESTATION OF INFORMED CONSENT FOR ANESTHESIA Anesthesia options were discussed with the patient and/or legal outbound sales representative. The risks, benefits and alternatives were reviewed. Questions regarding anesthesia were answered. Patient and/or legal outbound sales representative knows such anesthetics and procedures may be performed by Resident physicians, Certified Anesthesiologist Assistants, or Certified Nurse Anesthetists under the supervision of a physician. The patient /or the patient's legal outbound sales representative agree with the plan for anesthesia. Normal [facility] [employer] Anesthesia Postprocedure Zo simmons 01-25-2021 [employer] Authentication Interface Message Text Anesthesia Postoperative Assessment: [...] ANESTHESIA COMPLICATIONS: No complications documented. Normal [facility] [employer] Anesthesia Transfer Of Careo n 01-25-2021 [employer] Authentication Interface Message Text Patient taken to [...] Simi Edwards DDS Anesthesiologist: Jero Peralta MD Industrial Twisting Machine Operator: Anson Schwartz MD DENTAL RESTORATIONS (Bilateral [...] was received. Anson Schwartz MD Normal [facility] [employer] Blood Attestationon 01-26-20 [employer]hentication Interface Message Text Blood Attestation ATTESTATION OF INFORMED CONSENT FOR BLOOD The transfusion of blood and/or blood components were discussed with the patient and/or legal outbound sales representative. The risks, benefits and alternatives were reviewed. Questions regarding blood transfusions were answered. The patient /or the patient's legal outbound sales representative agree with the plan for transfusion of blood and/or blood components. 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 Procedures: Full mouth X-ray 57142 Exam 39726 Cleaning 23303 [place] 59320 Fluoride 42430 Excisional biopsy 94329 No data filed Surgeon(s): Surgeon(s): Simi Edwards DDS Staff: Desk Reporter Nurse: Deborah Chapman RN; Crystal Anderson RN Transplant Nurse: Carolyn López DDS Anesthesia: General Anesthesiologist: Jero Peralta MD Industrial Twisting Machine Operator: Anson Schwartz MD Specimen(s): ID Type [...] López DDS 01/25/2021 12:11 PM Normal [facility] OP Noteon 01-25-2021 [employer] Authentication Interface Message Text Surgical Case Number Data Unavailable Operating Room Data Unavailable Preoperative Diagnosis(es): Dental caries [552415] Autism spectrum disorder F84.0 Moderate intellectual disability F79 Seizure disorder G40.89 Postoperative Diagnosis(es): Autism spectrum disorder F84.0 Moderate intellectual disability F79 Seizure disorder G40.89 Dental caries [849249] 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 tldegfz-gswytbwahr-z cellular pertussis (BOOSTRIX) 5-2.5-18.5 LF-MCG/0.5 injection Inject 0.5 mL into the muscle. Dictated by: Carolyn López DDS: Simi Joyner DDS was present for the critical portions of the procedure. 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 * fnxhift-edolzaozup-d cellular pertussis (BOOSTRIX) 5-2.5-18.5 LF-MCG/0.5 injection Inject 0.5 mL into the muscle. Dictated by: Carolyn López DDS: Simi Joyner DDS was present for the critical portions of the procedure. Carolyn López DDS 01/25/2021 12:18 PM Normal [facility] Anesthesia Preprocedure Eval uationon 01-24-2021 [employer]hentication Interface Message Text ASA: 3 No [...] the history and physical examination. Normal [facility] Telephone Encounteron 2020 [employer] Authentication Interface Message Text Informed Consent for dental surgery AND Anesthesia consent obtained and scanned into EPIC. Scheduled for surgery 01/25/2021. Normal [facility] AUD - Progress Noteson 04-20 Protein mass conc Pt. referred for hearing evaluation by Dr. Foster, accompanied by Caitie, a direct care provider from [facility]. Pt. returns today after having ears cleaned out. Pt. denied ear pain at the time of testing. Completed evaluation, resorting to play audiometry for pure tone testing. See AUD-Assessments for Report/Results. DX CODES: H90.3 sensorineural hearing loss bilateral Normal [facility] Coding Summary.on 04-20-2018 Coding Summary. CODING DATE: 04/20/2018 FINAL [facility] STATUS: PAYOR: Medicare APC DESCRIPTION 5722 Level [...] CphT Date Saved: 04/20/2018 09:11 pm Normal [facility] AUD - Progress Noteson 03-31 Protein mass conc pt. referred for hearing evaluation by Muna Foster DO, accompanied by Darius direct care provider from [facility]. Otoscopy revealed cerumen in the right ear canal clocking view of the tympanic membrane, left ear with moderate cerumen but tympanic membrance visible. Discussed with Saurabh, did not complete evaluation today. He will return after bilateral ear cleaning. Called and spoke to [facility]/Kate/Ainsley and advised her of the above. Normal [facility] Mohit 09-09-2016 Alanine aminotransferase (ALT) 35 U/L Normal <40 [facility] Soni 09-09-2016 Aspartate aminotransferase (AST) 26 U/L Normal 15-50 [facility] Albuminon 09-09-2016 Albumin 4.5 g/dL Normal 3.4-5.2 [facility] BUNon 09-09-2016 Urea nitrogen 21 mg/dL High 5-18 [facility] Creatinineon 09-09-2016 Creatinine 1.21 mg/dL High 0.50-1.20 [facility] Electrolyteson 09-09-2016 Chloride 107 mmol/L High 95-106 [facility] CO2 24 mmol/L Normal 24-35 [facility] Potassium molar conc 4.4 mmol/L Normal 3.7-5.3 [facility] 141 mmol/L Normal 135-145 [facility] Vital Signs Date Time Vital Sign Value Performing Clinician Facility 08-19-2024 11:00-0400 Body temperature 97.6 [degF] Adams Weaver MD Work Phone: [facility] 08-19-2024 11:00-0400 Diastolic blood pressure 66 mm[Hg] Adams Weaver MD Work Phone: [facility] 08-19-2024 11:00-0400 Heart rate 71 /min Adams Weaver MD Work Phone: [facility] 08-19-2024 11:00-0400 Respiratory rate 16 /min Adams Weaver MD Work Phone: [facility] 08-19-2024 11:00-0400 SaO2% (BldA) [Mass fraction] 99 % Adams Weaver MD Work Phone: [facility] 08-19-2024 11:00-0400 Systolic blood pressure 126 mm[Hg] Adams Weaver MD Work Phone: [facility] 08-19-2024 06:00-0400 Body weight 81 kg Adams Weaver MD Work Phone: [facility] 08-17-2024 20:00-0400 Body temperature 98.5 [degF] Go Foster DO Work Phone: [facility] 08-17-2024 20:00-0400 Diastolic blood pressure 78 mm[Hg] Go Foster DO Work Phone: [facility] 08-17-2024 20:00-0400 Heart rate 78 /min Go Foster DO Work Phone: [facility] 08-17-2024 20:00-0400 Respiratory rate 20 /min Go Foster DO Work Phone: [facility] 08-17-2024 20:00-0400 SaO2% (BldA) [Mass fraction] 94 % Go Foster DO Work Phone: [facility] 08-17-2024 20:00-0400 Systolic blood pressure 172 mm[Hg] Go Foster DO Work Phone: [facility] 08-17-2024 15:25-0400 Body height 165.1 cm Go Foster DO Work Phone: [facility] 08-17-2024 01:05-0400 Body weight 87.6 kg Go Foster DO Work Phone: [facility] 08-01-2024 09:54-0400 Body height 172.7 cm Glenn Brown DPM Work Phone: [facility] 08-01-2024 09:54-0400 Body mass index (BMI) [Ratio] 28.13 kg/m2 Glenn Brown DPM Work Phone: [facility] 08-01-2024 09:54-0400 Body weight 83.92 kg Glenn Brown DPM Work Phone: [facility] 08-01-2024 09:54-0400 Respiratory rate 18 /min Glenn Brown DPM Work Phone: [facility] 07-11-2024 09:55-0400 Body height 172.7 cm Glenn Brown DPM Work Phone: [facility] 07-11-2024 09:55-0400 Body mass index (BMI) [Ratio] 28.13 kg/m2 Glenn Brown DPM Work Phone: [facility] 07-11-2024 09:55-0400 Body weight 83.92 kg Glenn Brown DPM Work Phone: [facility] 07-11-2024 09:55-0400 Respiratory rate 16 /min Glenn Brown DPM Work Phone: [facility] 06-17-2024 10:03-0400 Body height 172.7 cm Glenn Brown DPM Work Phone: [facility] 06-17-2024 10:03-0400 Body mass index (BMI) [Ratio] 28.13 kg/m2 Glenn Brown DPM Work Phone: [facility] 06-17-2024 10:03-0400 Body weight 83.92 kg Glenn Brown DPM Work Phone: [facility] 06-17-2024 10:03-0400 Respiratory rate 16 /min Glenn Brown DPM Work Phone: [facility] 05-27-2024 09:46-0400 Body height 172.7 cm Glenn Brown DPM Work Phone: [facility] 05-27-2024 09:46-0400 Body mass index (BMI) [Ratio] 28.13 kg/m2 Glenn Brown DPM Work Phone: [facility] 05-27-2024 09:46-0400 Body weight 83.92 kg Glenn Brown DPM Work Phone: [facility] 05-27-2024 09:46-0400 Respiratory rate 16 /min Glenn Brown DPM Work Phone: [facility] 05-18-2024 16:06-0400 Body height 172.7 cm Glenn Brown DPM Work Phone: [facility] 05-18-2024 16:06-0400 Body mass index (BMI) [Ratio] 28.13 kg/m2 Glenn Brown DPM Work Phone: [facility] 05-18-2024 16:06-0400 Body weight 83.92 kg Glenn Brown DPM Work Phone: [facility] 05-18-2024 16:06-0400 Diastolic blood pressure 90 mm[Hg] Glenn Brown DPM Work Phone: [facility] 05-18-2024 16:06-0400 Heart rate 69 /min Glenn Brown DPM Work Phone: [facility] 05-18-2024 16:06-0400 Systolic blood pressure 139 mm[Hg] Glenn Brown DPM Work Phone: [facility] 04-15-2024 09:29-0500 Body height 172.7 cm Glenn Brown DPM Work Phone: [facility] 04-15-2024 09:29-0500 Body mass index (BMI) [Ratio] 28.13 kg/m2 Glenn Brown DPM Work Phone: [facility] 04-15-2024 09:29-0500 Body weight 83.92 kg Glenn Brown DPM Work Phone: [facility] 04-15-2024 09:29-0500 Diastolic blood pressure 82 mm[Hg] Glenn Brown DPM Work Phone: [facility] 04-15-2024 09:29-0500 Heart rate 71 /min Glenn Brown DPM Work Phone: [facility] 04-15-2024 09:29-0500 Systolic blood pressure 138 mm[Hg] Glenn Brown DPM Work Phone: [facility] 02-09-2024 10:52-0500 Body height 172.7 cm Ana Maria Hsu NP Work Phone: [facility] 02-09-2024 10:52-0500 Body mass index (BMI) [Ratio] 28.13 kg/m2 Ana Maria Ramirezmor [employer]ER Work Phone: [facility] 02-09-2024 10:52-0500 Body weight 83.92 kg Ana Maria Gillmor [employer] Work Phone: [facility] 02-09-2024 10:52-0500 Diastolic blood pressure 90 mm[Hg] Ana Maria Ramirezmor [employer] Work Phone: [facility] 02-09-2024 10:52-0500 Heart rate 69 /min Ana Maria Ashleymor [employer] Work Phone: [facility] 02-09-2024 10:52-0500 Systolic blood pressure 139 mm[Hg] Ana Maria Ramirezmor [employer] Work Phone: [facility] 01-06-2022 12:30-0500 Body height 177.8 cm Cj Stubbsley Other [employer] Other 01-06-2022 12:30-0500 Body mass index (BMI) [Ratio] 27.69 kg/m2 Cj Gayle Other [employer] Other 01-06-2022 12:30-0500 Body weight 87.54 kg Cj Gayle Other [employer] Other 09-24-2021 17:03-0400 Diastolic blood pressure 100 mm[Hg] DO Og Foster Work Phone: [facility] 09-24-2021 17:03-0400 Heart rate 79 /min DO Go Foster Work Phone: [facility] 09-24-2021 17:03-0400 Respiratory rate 16 /min DO Go Foster Work Phone: [facility] 09-24-2021 17:03-0400 SaO2% (BldA) [Mass fraction] 94 % DO Go Foster Work Phone: [facility] 09-24-2021 17:03-0400 Systolic blood pressure 156 mm[Hg] DO Go Foster Work Phone: [facility] 09-24-2021 15:05-0400 Body temperature 97.1 [degF] DO Go Foster Work Phone: [facility] 09-24-2021 15:05-0400 Inhaled oxygen flow rate 6 L/min DO Go Foster Work Phone: [facility] 09-24-2021 14:22-0400 Body height 172.72 cm DO Go Foster Work Phone: [facility] 09-24-2021 14:22-0400 Body mass index (BMI) [Ratio] 29.6 kg/m2 DO Go Foster Work Phone: [facility] 09-24-2021 14:22-0400 Body weight 88.4 kg DO Go Foster Work Phone: [facility] 08-14-2021 10:45-0400 Body height 177.8 cm Nallely Parada Other [employer] Other 08-14-2021 10:45-0400 Body mass index (BMI) [Ratio] 27.55 kg/m2 Nallely Parada Other [employer] Other 08-14-2021 10:45-0400 Body temperature 97 [degF] Nallely Parada Other [employer] Other 08-14-2021 10:45-0400 Body weight 87.09 kg Nallely Parada Other [employer] Other 08-14-2021 10:45-0400 Diastolic blood pressure 84 mm[Hg] Nallely Parada Other [employer] Other 08-14-2021 10:45-0400 Respiratory rate 20 /min Nallely Parada Other [employer] Other 08-14-2021 10:45-0400 SaO2% (BldA) [Mass fraction] 98 % Nallely Parada Other [employer] Other 08-14-2021 10:45-0400 Systolic blood pressure 132 mm[Hg] Nallely Parada Other [employer] Other Encounters Encounter Date Encounter Type Care Provider Facility Start: 08-24-2024 ambulatory Ashanti Bautista Facility :[facility] Start: 08-19-2024 ambulatory Ashanti Galea Facility:[facility] Start: 08-17-2024 Non-patient / Non-visit Clint Brizuela MD -[facility] Work Phone: Start: 08-17-2024 End: 08-19-2024 Evaluation and management of inpatient Go Radhames Kristin Facility:[facility] Start: 08-16-2024 End: 08-16-2024 ambulatory Go Bairdring DO Work Phone: [facility] Work Phone: Start: 08-16-2024 End: 08-16-2024 Departed Referred Geovanny Olmos DO -[facility] Start: 08-14-2024 End: 08-14-2024 ambulatory Adams Weaver Facility:[facility] Start: 08-14-2024 End: 08-14-2024 Departed Referred Adams Weaver MD -[facility] Start: 08-01-2024 End: 08-01-2024 Raul Brown DPM Work Phone: [facility] Start: 08-01-2024 End: 08-01-2024 Bamboo flowsheet Glenn A Brown DPM Work Phone: [facility] Start: 08-01-2024 End: 08-01-2024 Office outpatient visit 25 minutes Glenn A Brown DPM Work Phone: [facility] Comment on above: Lisfranc dislocation , left, initial encounter (Primary Dx) Start: 08-01-2024 End: 08-01-2024 ambulatory GLENN A STEPHANIE Not Available Start: 07-11-2024 End: 07-11-2024 Bamboo flowsheet Glenn A Brown DPM Work Phone: [facility] Start: 07-11-2024 End: 07-11-2024 Bamboo flowsheet Glenn A Brown DPM Work Phone: [facility] Start: 07-11-2024 End: 07-11-2024 Office outpatient visit 25 minutes Glenn A Brown DPM Work Phone: [facility] Comment on above: Lisfranc dislocation , left, initial encounter (Primary Dx) Start: 07-11-2024 End: 07-11-2024 ambulatory GLENN A STEPHANIE Not Available Start: 06-17-2024 End: 06-17-2024 Bamboo flowsheet Glenn A Brown DPM Work Phone: [facility] Start: 06-17-2024 End: 06-17-2024 Bamboo flowsheet Glenn A Brown DPM Work Phone: [facility] Start: 06-17-2024 End: 06-17-2024 ambulatory GLENN A BROWN Not Available Start: 06-17-2024 End: 06-17-2024 Office outpatient visit 25 minutes Glenn A Brown DPM Work Phone: [facility] Comment on above: Lisfranc dislocation , left, initial encounter (Primary Dx) Start: 05-30-2024 End: 05-30-2024 ambulatory SUMEET SWANSON Facility:[facility] Start: 05-27-2024 End: 05-27-2024 Bamboo flowsheet Glenn Radhames Brown DPM Work Phone: [facility] Start: 05-27-2024 End: 05-27-2024 Bamboo flowsheet Glenn Radhames Brown DPM Work Phone: [facility] Start: 05-27-2024 End: 05-27-2024 Office outpatient visit 25 minutes Glenn Radhames Brown DPM Work Phone: [facility] Comment on above: Lisfranc dislocation , left, initial encounter (Primary Dx) Start: 05-27-2024 End: 05-27-2024 ambulatory GLENN Radhames BROWN Not Available Start: 05-18-2024 End: 05-18-2024 Office outpatient visit 15 minutes Glenn Radhames Brown DPM Work Phone: [facility] Comment on above: Contusion of left fo ot, initial encounter (Primary Dx); Onychocryptosis; Toe pain, right; Abscess of toe, right; Venous insufficiency Start: 05-18-2024 End: 05-18-2024 ambulatory GLENN Radhames BROWN Not Available Start: 05-18-2024 End: 05-18-2024 Bamboo flowsheet Glenn Radhames Brown DPM Work Phone: [facility] Start: 05-18-2024 End: 05-18-2024 Bamboo flowsheet Glenn Radhames Brown DPM Work Phone: [facility] Start: 05-16-2024 End: 05-16-2024 ambulatory GLENN Radhames BROWN Not Available Start: 04-29-2024 End: 04-29-2024 ambulatory GLENN Radhames BROWN Not Available Start: 04-15-2024 End: 04-15-2024 Bamboo flowsheet Glenn Radhames Brown DPM Work Phone: [facility] Start: 04-15-2024 End: 04-15-2024 Bamboo flowsheet Glenn Radhames Brown DPM Work Phone: [facility] Start: 04-15-2024 End: 04-15-2024 Office outpatient visit 15 minutes Glenn Brown DPM Work Phone: [facility] Comment on above: Onychocryptosis (Meredith manuel Dx); Abscess of toe, right; Toe pain, right Start: 04-15-2024 End: 04-15-2024 ambulatory GLENN BROWN Not Available Start: 02-09-2024 End: 02-09-2024 Bamboo flowsheet Ana Maria Hsu [employer] Work Phone: [facility] [address] Start: 02-09-2024 End: 02-09-2024 Bamboo flowsheet Ana Maria Ashleymor [employer] Work Phone: [facility] [address] Start: 02-09-2024 End: 02-09-2024 Office outpatient visit 25 minutes Ana Maria Hsu [employer] Work Phone: [facility] Comment on above: Seizure disorder (CM S/HCC) (Primary Dx); Frequent falls; Mental disability (CMS/HCC); Tuberous sclerosis (CMS/HCC) Start: 02-09-2024 End: 02-09-2024 ambulatory ANA MARIA HSU Not Available Start: 01-16-2024 End: 01-16-2024 Letter encounter [facility] Start: 11-10-2023 End: 11-10-2023 ambulatory SUMEET SWANSON Facility:[facility] Start: 08-19-2023 End: 08-19-2023 Lab Drop off GO FOSTER [facility] Start: 08-19-2023 End: 08-19-2023 ambulatory GO FOSTER Facility:[facility] Start: 08-06-2023 End: 08-06-2023 ambulatory ANA MARIA HSU Not Available Start: 02-25-2023 End: 02-25-2023 Lab Drop off GO FOSTER [facility] Start: 02-25-2023 End: 02-25-2023 ambulatory GO FOSTER Facility:[facility] Start: 11-12-2022 End: 11-12-2022 ambulatory GO FOSTER Facility:[facility] Start: 11-12-2022 End: 11-12-2022 Lab Drop off GO BAIRDRING [facility] Start: 05-27-2022 End: 05-28-[address] GO FOSTER Facility: Start: 04-24-2022 Letter encounter Vadim freytolu Start: 04-11-2022 End: 04-12-[address] GO FOSTER Facility:[facility] Start: 04-10-2022 End: 04-11-[address] GO FOSTER Facility:[facility] Start: 04-09-2022 End: 04-09-2022 ambulatory Nallely Parada Other [employer] Other Start: 04-09-2022 Telephone encounter Nallely Parada [facility] Start: 03-12-2022 End: 03-12-2022 ambulatory DO Go Ricci Foster Work Phone: [facility] Work Phone: Start: 03-12-2022 End: 03-12-2022 Patient encounter procedure DO Go Foster Work Phone: [facility]-Pet Scan Work Phone: Start: 03-11-2022 End: 03-12-[address] GO FOSTER Facility:[facility] Start: 02-06-2022 End: 02-06-2022 ambulatory Nallely Parada Other [employer] Other Start: 02-06-2022 Telephone encounter Kamred Parada [facility] Start: 01-07-2022 End: 01-07-2022 ambulatory Cj Gayle Other [employer] Other Start: 01-07-2022 Telephone encounter Cj Gayle [facility] Start: 01-06-2022 Postop follow up vis it related to original px Cj Gayle [facility] Start: 01-06-2022 End: 01-06-2022 ambulatory DO Go Radhames Kristin Work Phone: [facility] Work Phone: Start: 01-06-2022 End: 01-06-2022 Patient encounter procedure DO Go Foster Work Phone: [facility] Start: 12-04-2021 End: 12-06-2021 ambulatory UNKNOWN PROVIDER Facility:[facility] Start: 12-04-2021 End: 12-06-2021 Patient encounter procedure Lycatalina Redmond DINESH Work Phone: [facility] Start: 11-22-2021 End: 11-22-2021 ambulatory Cj Gayle Other [employer] Other Start: 11-22-2021 Postop follow up vis it related to original px Cj Gayle [facility] Start: 11-22-2021 End: 11-22-2021 Patient encounter procedure DO Go Foster Work Phone: [facility] Start: 10-16-2021 End: 10-16-2021 ambulatory Cj Gayle Other [employer] Other Start: 10-16-2021 Postop follow up vis it related to original px Cjjarrod Gayle [facility] Start: 10-16-2021 End: 10-16-2021 Patient encounter procedure DO Go Foster Work Phone: [facility] Start: 09-24-2021 End: 09-24-2021 Admission to same day surgery center DO Go Foster Work Phone: [facility] [place] Start: 09-23-2021 End: 09-23-2021 Patient encounter procedure DO Go Foster Work Phone: [facility]-Surgical [facility] Start: 09-18-2021 End: 09-18-2021 ambulatory TRAN MORALEZ . Facility:[facility] Start: 08-14-2021 End: 08-14-2021 ambulatory Nallely Parada Other [employer] Other Start: 08-14-2021 Office outpatient ne w 45 minutes Nallely Parada [facility] Start: 08-01-2021 End: 08-02-[address] GO FOSTER Facility:[facility] Start: 07-31-2021 End: 08-01-[address] GO FOSTER Facility:[facility] Start: 01-25-2021 End: 01-26-2021 ambulatory SIMI MEADOWS Facility:[facility] Start: 01-25-2021 ambulatory UNKNOWN PROVIDER Facili ty:[facility] Start: 09-09-2016 End: 09-09-2016 Ambulatory Robbi PETERSEN [facility] Procedures Date Procedure Procedure Detail Performing Clinician Start: 08-16-2024 Urine culture Adams doran MD Work Phone: Start: 08-14-2024 Urine culture Go Kenneth janelle DO Work Phone: Start: 01-06-2022 X-ray of right ankle DO Go Foster Work Phone: Start: 11-22-2021 X-ray of right ankle DO Go Foster Work Phone: Start: 10-16-2021 X-ray of right ankle DO Go Foster Work Phone: Start: 09-24-2021 X-ray of right ankle DO Go Foster Work Phone: Start: 09-24-2021 Open reduction of fracture with internal fixation DO Go Foster Work Phone: Plan of Treatment Date Care Activity Detail Author Start: 02-12-2026 Screening for malign ant neoplasm of colon [facility] Start: 10-10-2025 Lipid panel [facility] Start: 09-21-2024 End: 09-21-2024 Patient encounter procedure 09/21/2024 2:00 PM EDT Office Visit [facility] [address] [place] [phone] Ana Maria Hsu NP [address] [place], [place] [facility] Start: 08-21-2024 [facility] Start: 08-20-2024 [facility] Start: 08-19-2024 End: 08-19-2024 [facility] Start: 08-18-2024 [facility] Start: 08-17-2024 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 [facility] Start: 08-17-2024 Hospital admission [facility] Start: 08-17-2024 [facility] Start: 08-16-2024 Urine culture [facility] Start: 08-16-2024 Bacteria identified in Urine by Culture Urine Culture [facility] Start: 08-04-2024 End: 08-04-2024 Patient encounter procedure [facility] [address] Start: 08-01-2024 End: 08-01-2024 Patient encounter procedure 08/01/2024 10:00 AM EDT Office Visit [facility] [address] [place] [phone] Glenn Brown DPM [address] [address] Lisfranc dislocation, left, initial encounter (Primary Dx) [facility] Comment on above: Lisfranc dislocation , left, initial encounter (Primary Dx) Start: 07-11-2024 End: 07-11-2024 Patient encounter procedure 07/11/2024 9:50 AM EDT Office Visit [facility] [address] [place] [address] Glenn Brown DPM [address] [address] Lisfranc dislocation, left, initial encounter (Primary Dx) [facility] Comment on above: Lisfranc dislocation , left, initial encounter (Primary Dx) Start: 05-27-2024 End: 05-27-2024 Patient encounter procedure 05/27/2024 9:40 AM EDT Office Visit [facility] [address] [place] [phone] Glenn Brown DPM [address] [address] Arrived [facility] Comment on above: Arrived Start: 05-18-2024 End: 05-18-2024 Patient encounter procedure 05/18/2024 4:00 PM EDT Office Visit [facility] [address] [place] [phone] Glenn Brown DPDoyle [address] [address] Arrived [facility] Comment on above: Arrived Start: 04-15-2024 End: 04-15-2024 Patient encounter procedure 04/15/2024 9:30 AM EST Office Visit [facility] [address] [place] [phone] Glenn Brown DPM [address] [address] Arrived [facility] Comment on above: Arrived Start: 02-09-2024 End: 02-09-2024 Patient encounter procedure 02/09/2024 10:40 AM EST Office Visit [facility] [address] [place] [phone] Ana Maria Hsu, [employer] [address] [place] [address] Arrived [facility] [address] Comment on above: Arrived Start: 10-25-2023 COVID-19 Vaccine ( season) COVID-19 Vaccine ( season) [facility] Start: 10-25-2023 Influenza vaccination Influenza Vacc ine (#1) [facility] Start: 11-23-2021 Influenza vaccination Influenza Vacc ine (#1) [facility] Start: 10-16-2021 X-ray of right ankle XR ankle RT min 3V* [facility] Start: 10-16-2021 End: 10-16-2021 Patient encounter procedure Departed Clinical [facility] Start: 09-24-2021 [facility] Work Phone: Start: 09-24-2021 [facility] Work Phone: Start: 08-21-2021 [...] Start: 02-23-1997 [id number] Start: 01-10-1987 Hepatitis A [...] [facility] Start: 01-10-1983 HIV screening HIV Test [facility] Start: 1970 Medicare Annual Wellness (AWV) Medicare Annual Wellness (AWV) [facility] Start: 1970 Screening for malign ant neoplasm of colon [facility] Anion gap measurement [facility] Basophils [#/volume] in Blood by Automated count [facility] Basophils/100 leukocytes in Blood by Automated count [facility] Eosinophils/100 leukocytes in Blood by Automated count [facility] Erythrocyte distribution width [Ratio] by Automated count [facility] Erythrocytes [#/volu me] in Blood [facility] Hematocrit [Volume Fraction] of Blood [facility] Hemoglobin [Mass/volume] in Blood [facility] Leukocytes [#/volume ] corrected for nucleated erythrocytes in Blood by Automated coun [facility] Leukocytes [#/volume ] in Blood [facility] Lymphocytes [#/volum e] in Blood by Automated count [facility] Lymphocytes/100 leukocytes in Blood by Automated count [facility] MCH [Entitic mass] b y Automated count [facility] MCHC [Mass/volume] b y Automated count [facility] MCV [Entitic volume] by Automated count [facility] Monocytes [#/volume] in Blood by Automated count [facility] Monocytes/100 leukocytes in Blood by Automated count [facility] Neutrophils [#/volum e] in Blood by Automated count [facility] Neutrophils/100 leukocytes in Blood by Automated count [facility] Nucleated erythrocyt es [Presence] in Blood by Automated count [facility] Patient Education Know your Meds [facility] Work Phone: Patient referral [facility] Work Phone: Platelet mean volume [Entitic volume] in Blood by Automated count [facility] Platelets [#/volume] in Blood [facility] Immunizations Immunization Date Immunization Notes Care Provider [facility] 12-10-2022 influenza virus vaccine, unspecified formulation Ana Maria Hsu NP Work Phone: [facility] 06-26-2021 Pfizer (12+ yrs) SARS-COV-2 (COVID-19) vaccine, mRNA, spike protein, LNP, pres. free, 30 mcg/0.3mL dose, syeda-sucrose (IOI=768) Ly Ruy RDH Work Phone: [facility] 12-19-2020 COVID-19 Vaccine Pfi zer - Documentation Purposes Only Nallely Parada Other [employer] Other 12-19-2020 influenza, injectabl e, quadrivalent, preservative free Ly Ruy RDH Work Phone: [facility] 12-19-2020 influenza virus vaccine, unspecified formulation Ly Ruy RDH Work Phone: [facility] 03-27-2020 COVID-19 Vaccine Pfi zer - Documentation Purposes Only Nallely Parada Other [employer] Other 03-06-2020 COVID-19 Vaccine Pfi zer - Documentation Purposes Only Nallely Parada Other [employer] Other 11-30-2019 influenza, injectabl e, quadrivalent, preservative free Ly Ruy RDH Work Phone: [facility] 12-17-2018 influenza, injectabl e, quadrivalent, preservative free Ly Ruy RDH Work Phone: [facility] 12-02-2017 influenza, injectabl e, quadrivalent, preservative free Ly Ruy RDH Work Phone: [facility] 01-06-2017 influenza, injectabl e, quadrivalent, contains preservative Ly Ruy RDH Work Phone: [facility] 07-12-2015 tetanus and diphther ia toxoids, adsorbed, preservative free, for adult use (5 Lf of tetanus toxoid and 2 Lf of diphtheria toxoid) Ly Ruy RDH Work Phone: [facility] 12-14-2014 influenza, injectabl e, quadrivalent, preservative free Ly Ruy RDH Work Phone: [facility] 01-10-2009 novel [id number], preservative-free, injectable Ly Ruy [facility] Work Phone: [facility] 01-07-2008 influenza virus vaccine, whole virus Ly Ruy [facility] Work Phone: [facility] 12-08-2006 [facility], [facility] 06-25-2005 tetanus and diphther ia toxoids, adsorbed, preservative free, for adult use (5 Lf of tetanus toxoid and 2 Lf of diphtheria toxoid) [facility] Work Phone: [facility] diphtheria, tetanus toxoids and acellular pertussis vaccine, unspecified formulation [facility] Work Phone: [facility] [id number] shabnam lular pertussis (BOOSTRIX) 5-2.5-18.5 LF-MCG/0.5 injection [facility] Payers Date Payer Category Payer Self-pay [id number] 2019 Dental --Stand Alone DENTAL-MEDI CAID [id number] 2019 Medicaid [id number] [id number]. [id number] 1996 Medicare [id number]. 1.13.56.2.7. [id number] 1996 Medicare FFS MEDICARE [id number]. [id number] 1968 Unknown [id number] 2.16.840.1.758788.3.579.2.7 32 1968 Unknown [id number] 2.16.840.1.480932.3.579.2.7 32 1968 Unknown [id number] 2.16.840.1.723476.3.579.2.7 32 1968 Unknown [id number] 2.16.840.1.304848.3.579.2.5 93 1968 Unknown [id number] 2.16.840.1.776916.3.579.2.5 93 1968 Unknown [id number] 2.16.840.1.130227.3.579.2.5 93 1968 Unknown [id number] 2.16.840.1.341700.3.579.2.5 93 1968 Unknown [id number] 2.16.840.1.470149.3.579.2.7 27 1968 Unknown [id number] 2.16.840.1.099611.3.579.2.7 27 1968 Unknown [id number] 2.16.840.1.316200.3.579.2.7 27 1968 Unknown [id number] 2.16.840.1.260971.3.579.2.1 259 1968 Unknown [id number] 2.16.840.1.850857.3.579.2.1 259 1968 Unknown [id number] 2.16.840.1.797725.3.579.2.1 259 1968 Unknown [id number] 2.16.840.1.030403.3.579.2.1 259 1968 Unknown [id number] 2.16.840.1.202526.3.579.2.1 259 1968 Unknown [id number] 2.16.840.1.778115.3.579.2.1 259 1968 Unknown [id number] 2.16.840.1.013083.3.579.2.1 259 1968 Unknown [id number] 2.16.840.1.036372.3.579.2.1 259 1968 Unknown [id number] 2.16.840.1.024330.3.579.2.1 259 1968 Unknown [id number] 2.16.840.1.940877.3.579.2.1 259 1968 Unknown [id number] 2.16.840.1.025206.3.579.2.7 27 1968 Unknown [id number] 2.16.840.1.025425.3.579.2.7 27 1959 Medicaid [id number] 2.16.840.1.824212.19 1961 Medicare [id number] 2.16.840.1.882098.19 Medicare [id number] Unknown [employer] [id number] 2.16.840.1.607778.3.579.2.5 93 Unknown [id number] 2.16.840.1.966561.3.579.2.5 93 Unknown [id number] 2.16.840.1.306598.3.579.2.5 93 Unknown [id number] 2.16.840.1.859293.3.579.2.5 31 Unknown [id number] 2.16.840.1.445830.3.579.2.5 31 Unknown [id number] 2.16.840.1.519799.3.579.2.5 31 Social History Date Type Detail Facility Start: 08-06-2023 End: 07-11-2024 Sex Assigned At [facility] Start: 09-24-2021 End: 08-17-2024 Tobacco smoking status FLIS Never smoked tobacco (finding) [facility] Start: 1970 Sex Assigned At Male [facility] Tobacco smoking status [facility] Tobacco smoking consumption unknown [facility] Start: 1970 Sex Assigned At Not on file [facility] Tobacco smoking status No Smoking Status Entered [facility] Start: 03-01-2019 Sex Male (finding) [facility] Start: 02-05-2023 Tobacco use and exposure Smokeless tobacco non-user [facility] Start: 08-06-2023 End: 08-01-2024 Alcoholic beverage intake Lifetime non-drinker (finding) [facility] Start: 08-06-2023 End: 07-11-2024 History of Social function [facility] Start: 08-18-2024 SDOH Follow up SDOH Follow up [facility] Work Phone: NEGATED: Highlighted rowStart: NINF History of tobacco use Passive smoker [facility] Medical Equipment Procedure Code Equipment Code Equipment Origin al Text Equipment Identifier Dates ORIF, fracture, ankle CANCELLOUS COARSE 7.5CC FDA Start: 09-24-2021 ORIF, fracture, ankle Orthopaedic bone screw, non-bioabsorbable, non-sterile ()[id number] FDA Start: 09-24-2021 ORIF, fracture, ankle Orthopaedic bone screw, non-bioabsorbable, non-sterile ()[id number] FDA Start: 09-24-2021 ORIF, fracture, ankle Orthopaedic fixation plate, non-bioabsorbable, sterile ()[id number] FDA Start: 09-24-2021 ORIF, fracture, ankle Orthopaedic bone screw, non-bioabsorbable, non-sterile ()[id number] FDA Start: 09-24-2021 ORIF, fracture, ankle Orthopaedic bone screw, non-bioabsorbable, non-sterile ()[id number] FDA Start: 09-24-2021 ORIF, fracture, ankle Orthopaedic bone screw, non-bioabsorbable, non-sterile ()[id number] FDA Start: 09-24-2021 ORIF, fracture, ankle Orthopaedic bone screw, non-bioabsorbable, non-sterile ()[id number] FDA Start: 09-24-2021 ORIF, fracture, ankle CANCELLOUS [...] Desired Activity /State Clinical Notes 01-10-2021 to 08-19-2024 Note Date & Type Note Facility 08-19-2024 Hospital Discharg e instructions Additional Instructions [facility] to manage care: - Full code - BMP in 3-5 days, results to PCP - Maintain indwelling herrera catheter to drainage or leg bag, routine care per protocol - follow-up with Urology as scheduled - Turn and reposition every 2 hours and as needed - Offload heels q2h - Maintain seizure precautions per facility protocol, hx of seizures - [facility] Work Phone: 08-17-2024 Evaluation note Diagnosis Onset Date Resolution SHANON (acute kidney injury) acute August 17, 2024 1:19am Chronic kidney disease acute 2024 1:19am Cystitis acute August 17 1:19am 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 Glenn Brown DPM [id number] History of Present illness Narrative* Glenn Brown DPM - 07/11/2024 9:50 AM EDT Patient: Alethea Lei : 1970 PCP: Go Foster MD SUBJECTIVE [...] boot after the next 3 weeks Glenn Brown DPM documented in this encounterTexas County Memorial HospitalPyyjdfzizm15-00-1651 History of Present illness Narrative* Glenn Brown DPM - 06/17/2024 9:50 AM EDT Patient: Alethea Lei : 1970 PCP: Go Foster MD SUBJECTIVE [...] or Ibuprofen Continue with walking boot Glenn Brown DPM documented in this encounterTexas County Memorial HospitalWypkilrfcw47-39-6487 NoteHNO ID: [id number] Author: SUMEET CALI MD Service: ? Author [...] visit. Either the patient or their legal outbound sales representative has been informed of the [...] anxiety, (10-14) moderate anxiety, (15-21) severe anxiety Oxford Cognitive Assessment (MoCA) No data to display [...] evening, and 3 tablets at bedtime 0 ppunawq-jqyoloodb-nhkvqvx D3 (OYSTER SHELL CALCIUM-VITAMIN D) 500 mg(1,250mg) [...] 1 MG TAB ta (more content not included)...[facility] 05-27-2024 History of Present illness Narrative* Glenn Brown DPM - 05/27/2024 9:40 AM EDT Patient: Alethea Lei : 1970 PCP: Go Foster MD SUBJECTIVE Patient presents today post today's history of some pain with ambulation and swelling to the dorsumof left foot but has poor historian and caregiver and patient is complaining of pain from time to time but has poor historian and is resident at [facility]. He had recent CT scan at [facility] and presents today for follow-up. Allergies: [...] and straps and pneumatically inflated for proper customfitting by Glenn Brown DPM and staff. A verbal order was given for dispensing of device. The patient is ambulatory and may benefit functionally from this device. It may be used for the following conditions as noted per medical diagnosis. Discussed with care worker timeframe of 8-12 week healing timeframe and negative gross fracture or displacement and will treat as Lisfranc sprain Glenn Brown DPM documented in this encounterTexas County Memorial HospitalQorofoxkau52-22-6660 History of Present illness Narrative* Glenn Brown DPM - 05/18/2024 4:00 PM EDT Patient: Alethea Lei : 1970 PCP: Go Foster MD SUBJECTIVE This is a 54 y.o. male that presents today 16 d s/p permanent nail avulsion with nail avulsion to the right medial hallux Pt states that they have been following all post op instructions and have been taking antibiotic asprescribed. Pt denies n/f/v/c and has negative pain at post op site. Pt states negative drainage from the postop site. Pt presents today for postoperative follow up. Presents today with caregiver Patient presents today post today's history of some pain with ambulation and swelling to the dorsumof left foot but has poor historian and [...] today. Today's procedure is a staged procedure andpatient may need further procedures in the future. Glenn Brown DPM documented in this encounterTexas County Memorial HospitalSexhgxrjyv57-03-6792 History of Present illness Narrative* Glenn Brown DPM - 04/15/2024 9:30 AM EST Patient: Alethea Lei : 1970 PCP: Go Foster MD SUBJECTIVE This is a 54 y.o. [...] sterile manner and offending nail was removed withminimal blood loss and positive serosanguinous drainage noted. Wound then was flushed with NSS and DSD applied to digit. Patient has antibiotics and continues antibiotics since 04/13/2024 of Matias Brown DPM documented in this encounterTexas County Memorial HospitalOwuoatbzyr06-51-4381 NoteHNO ID: [id number] Author: SUMEET CALI MD Service: ? Author [...] visit. Either the patient or their legal outbound sales representative has been informed of the [...] request it faxed to them. Fax number: [phone] (direct fax). Risks and benefits of the [...] evening, and 3 tablets at bedtime 0 kjlujwb-khxpjbcgk-cpvnbzj D3 (OYSTER SHELL CALCIUM-VITAMIN D) 500 mg(1,250mg) [...] once daily. cloNIDine 0.1 (more content not included)...[facility]06-26-2024 Evaluation + Plan note Diagnostic Tests Pending * HgbA1c 08/19/23 * T3 Free 08/19/23 * Keppra Lvl 08/19/23 * Lamotrigine Level 08/19/23 [facility]01-03-2024 Evaluation + Plan note Diagnostic Tests Pending * T3 Free 02/25/23 [facility]09-20-2023 Evaluation + Plan note Diagnostic Tests Pending * PSA Screen, Total 11/12/22 [facility]11-14-2022 Evaluation note* Encounter Date Diagnosis Assessment Notes Treatment Notes Treatment Clinical Notes Dec, Displaced fracture of lateral malleolus of right fibula, subsequent encounter for closed fracture with routine healing (ICD-10 - S82.61XD) Alethea is here today for follow-up about 12 weeks s/p right ankle ORIF. He is doing well. He is currently residing at [facility]. There is no complaints overall. Ankle [...] this time with no restrictions. Patient voiced understanding. Dec, Other fracture of lower end of left tibia, subsequent encounter for closed fracture with routine healing (ICD-10 - S82.392D) Dec, Other specified postprocedural states (ICD-10 - Z98.890) [employer] Other 10-12-2022 History of Present illness Narrative* ArSimi Waller DDS - 12/04/2021 11:03 AM EDT ----- Thursday, December 04, 2021 at 11:22:04 AM ----- ----- Provider: Aki Redmond Hygieni -- Clinic: [place] ----- [facility], Pt is ready for tx. Pt presented with caries Radiograph taken today: none Discussed the medical necessity of the problem with the pt. Instructions given to pt. Caregiver understood the situation and is okay with medications for today. Pt will come back shouldthings get worse. Guardianship: PARENTS - Nabila Lei (Kathy) [address] [place] [address] / Email: [email or web address] Communicated with caregiver that the pt was placed on the OR list and we will call with appt. Limited exam completed by Dr. Noel STEPHENS. OR ----- Signed on Saturday, December 04, 2021 at 11:51:43 AM ----- ----- Provider: Manny Myers DDS -- Clinic: [place] ----- documented in this [id number] Evaluation note* Encounter Date Diagnosis Assessment Notes Treatment Notes Treatment Clinical Notes Oct, Displaced fracture of lateral malleolus of right fibula, subsequent encounter for closed fracture with routine healing (ICD-10 - S82.61XD) Alethea is here today for first follow-up 8 weeks s/p right ankle ORIF. He is doing well. He is currently residing at [facility]. There is no complaints overall. His [...] fracture with routine healing (ICD-10 - S82.392D) [employer] Other 08-24-2022 Evaluation note* Encounter Date Diagnosis Assessment Notes Treatment Notes Treatment Clinical Notes Sep, Displaced fracture of lateral malleolus of right fibula, subsequent encounter for closed fracture with routine healing (ICD-10 - S82.61XD) Alethea is here today for first follow-up 3 weeks s/p right ankle ORIF. He is doing well. He is currently residing at [facility]. There is no complaints overall. His [...] as documented in the electronic medical record. [employer] Other 08-24-2022 NoteCast material is in place limiting evaluation. Hardware fixation involving the distal fibula with[employer] Other 07-27-2022 NotePROCEDURE: XR TIB_FIB RT 2V [...] authenticated by: SANDY DÍAZ Date: 2021-09-18 17:14[facility]07-27-2022 NotePROCEDURE: XR ANKLE RT MIN 3 [...] authenticated by: SANDY DÍAZ Date: 2021-09-18 16:44[facility] HospitalPdkicxxa83-24-8904 NotePROCEDURE: XR ANKLE LT MIN 3 V [...] Electronically authenticated by: SANDY DÍAZ Date: 2021-09-18 15:33[facility]06-22-2022 Evaluation note* Encounter Date Diagnosis Assessment Notes Treatment Notes Treatment Clinical Notes Jul, Pulmonary cavitary lesion (ICD-10 - J98.4) Jul, Tuberous sclerosis (ICD-10 - Q85.1) [employer] Other 12-03-2021 NoteSurgical Attestation: I have reviewed the patient's History and Physical Examination. I have personally seen and evaluated the patient, repeating narayanan portions. There is no significant interval change. Surgery is still indicated. Yes Consent reviewed and signed by patient/family: Yes Operative site verified and marked: site verified but not marked as not anatomically possible Carolyn López DDS 01/25/2021 9:50 AMThe [employer] [id number] NotePatient is vaccinated for COVID-19: Pfizer on 03/06/2020 AND 03/27/2020. Patient does not require pre-op COVID testing per current guidelines.[facility] CenterRoboDynamics SystemEvaluation noteNo assessment information availableMetrohealth [facility] Work Phone: Evaluation noteNo InformationNort [employer] Other Evaluation note* Diagnosis Seizure disorder (CMS/HCC)- [...] encounter- Primary documented in this encounter [facility]* Diagnosis Lisfranc dislocation, left, initial encounter- Primary documented in this encounter [facility] HealthcareHistory general Narrative - Reported* Type Description Date Medical History Unspecified intellectual disabil ities Medical History autism Medical History ADHD Medical History Seizure Disorder Medical History tuberous Sclerosis [employer] Other History general Narrative - Reported* Type Description Date Medical History Unspecified intellectual disabil ities Medical History autism Medical History ADHD Medical History Seizure Disorder Medical History tuberous Sclerosis Surgical History ORIF RT lateral malleolus fx Hospitalization History see above [employer] Other Hospital course Narrative No data available for this section [facility] No data available for this section [facility] note No data available for this section [facility]healthReason for referral (narrative)No reason for referral information availableTogus Va Medical Center Work Phone: Summary Purpose Family History No Family History Records Found Relationship Condition Age at Onset Recorded Date/T adriel Not Specified Hypertension Unknown father Hypertension Unknown Relationship Condition Age at Onset Recorded Date/T adriel mother Hypertension Unknown father Hypertension Unknown brother Hypertension Unknown Advance Directives No Advanced Directives Records Found Advance Directive Response Recorded Date/ Time Advance Directives No October 22, 2016 9:09am Advance Directive Response Recorded Date/ Time Advance Directives No October 22, 2016 8:09am Chief Complaint and Reason for Visit Chief Complaint Fracture Fracture S82.61XD Chief Complaint S82.61XD S82.61XD Chief Complaint S82.61XD j98.4 r91.1 Chief Complaint Admit Date Unknown August 14, 2024 6:08 pm Unknown August 16, 2024 6:10 pm SHANON, CKD, Hyperkalemia August 17, 2024 1 :19am Reason for Visit Admit Date SHANON (acute kidney injury) August 17 1:19am Chronic kidney disease August 17, 2024 1 :19am Cystitis August 17, 2024 1:19 am Frontal lobe syndrome August 17, 2024 1: 19am Hyperkalemia August 17, 2024 1:19 am Hypertension August 17, 2024 1:19 am Hypothyroidism August 17, 2024 1:19 am Metabolic acidosis August 17, 2024 1:19 am Seizure disorder August 17, 2024 1:19 am Tuberous sclerosis August 17, 2024 1:19 am Additional Source Comments (unrecognized sect ion and [...] section and content) DATE CREATED AUTHOR 08/19/2017 [facility] DATE CREATED AUTHOR AUTHOR'S ORGANIZ ATION 07/30/2018 [facility] DATE CREATED AUTHOR AUTHOR'S ORGANIZ ATION 12/15/2021 [facility] DATE CREATED AUTHOR AUTHOR'S ORGANIZ ATION 06/01/2022 [facility] DATE CREATED AUTHOR AUTHOR'S ORGANIZ ATION 08/21/2023 [facility] DATE CREATED AUTHOR AUTHOR'S ORGANIZ ATION 08/22/2023 [facility] DATE CREATED AUTHOR AUTHOR'S ORGANIZ ATION 08/28/2023 [facility] DATE CREATED AUTHOR AUTHOR'S ORGANIZ ATION 05/31/2024 [facility] DATE CREATED AUTHOR AUTHOR'S ORGANIZ ATION 08/01/2024 [facility] DATE CREATED AUTHOR AUTHOR'S ORGANIZ ATION 08/20/2024 [facility] DATE CREATED AUTHOR AUTHOR'S ORGANIZ ATION 08/22/2024 [facility] REASON FOR VISIT (unrecogniz ed section and content) Reason Comments Seizures Altered Mental Status Reason Comments Ingrown Toenail RT grt nail ingrown Reason Comments Foot Pain Left foot swelling Reason Comments Follow-up Ct scan Reason Comments Follow-up Lt lis franc Reason Comments Follow-up LT LIS FRANC Care Teams (unrecognized sec tion and content) Team Status: Inactive Member Role Status Dates Go Foster , DO Primary Care Provider Active Cj Gayle , Attending Provider Active Team Status: Active Member Role Status Dates Go Foster , DO Primary Care Provider Active Team Status: Inactive Member Role Status Dates Go Foster , DO Primary Care Provider Active Nallely Parada MD Attending Provider Active Trauma Therapist Relationship Specialty Start Date End Date Unallocated, Lloyd Ann MD [address] [place], [place] [id number] PCP - General Family Medicine 02/05/23 Trauma Therapist Relationship Specialty Start Date End Date Go Foster MD [address] [place] [address] [address] [place], [place] [id number] PCP - General Family Medicine 02/09/24 Sue Patrick DO [address] [place] [address] Referring Physician Neurology 02/09/24 Trauma Therapist Relationship Specialty Start Date End Date Go Foster MD [address] [place] [address] PCP - General Family Medicine 02/09/24 Sue Patrick DO [address] [place] [address] Referring Physician Neurology 02/09/24 Trauma Therapist Relationship Specialty Start Date End Date Go Foster MD [address] [place] [address] PCP - General Family Medicine 02/09/24 Sue Patrick DO [address] [place] [address] Referring Physician Neurology 02/09/24 Trauma Therapist Relationship Specialty Start Date End Date Go Foster MD [address] [place] [address] PCP - General Family Medicine 02/09/24 Sue Patrick DO [address] [place] [address] Referring Physician Neurology 02/09/24 Trauma Therapist Relationship Specialty Start Date End Date Go Foster MD [address] [place] [address] PCP - General Family Medicine 02/09/24 Sue Patrick DO [address] [place] [address] Referring Physician Neurology 02/09/24 Trauma Therapist Relationship Specialty Start Date End Date Go Foster MD [address] [place] [address] PCP - General Family Medicine 02/09/24 Sue Patrick DO [address] [place] [address] Referring Physician Neurology 02/09/24 Trauma Therapist Relationship Specialty Start Date End Date Go Foster MD [address] [place] [address] PCP - General Family Medicine 02/09/24 Sue Patrick DO [address] [place] [address] Referring Physician Neurology 02/09/24 Team Status: Inactive Member Role Status Dates Adams Weaver MD Attending Provider Active St art: August 14, 2024 End: August 14, 2024 Team Status: Inactive Member Role Status Dates Geovanny Dong DO Attending Provider Active S tart: August 16, 2024 End: August 16, 2024 Team Status: Active Member Role Status Dates Go Foster DO Primary Care Provider Active Start: August 17, 2024 Daljit Messina DO Admit Provider Active Start: August 17, 2024 Ritu Cabrera MD Other Provider Active Start : August 17, 2024 Denise Marin MD Other Provider Active Start: J 2024 Linda Liz [employer] Other Provider Active Start: August 17, 2024 Clint Brizuela MD Attending Provider Active Start : August 17, 2024 Clint Brizuela MD Other Provider Active Start: Jayne ha 2024 Luisa Santizo MD Other Provider Active Start: Юлия davis 2024 Goals (unrecognized section and content) Goals may [...] BE BASED ON THE PRIMARY CLINICAL RECORDS. [facility] [employer] provides no warranty or guarantee of the accuracy or completeness of information in this document.
[2024-08-24 08:12] LABS: Anion Gap 13.2; Blood Urea Nitrogen 25.0 mg/dL (7.0-18.0); Calcium 9.0 mg/dL (8.5-10.1); Carbon Dioxide 28.8 mmol/L (21.0-32.0); Chloride 109 mmol/L (98-107); Estimated GFR (African America >60 (>=60 mL/min/1.73m^2); Estimated GFR (Non-African Ame 50 (>=60 mL/min/1.73m^2); Glucose 95 mg/dL (74-106); Potassium 5.0 mmol/L (3.5-5.1); Sodium 146 mmol/L (136-145)
== END 2024-08-24 06:33 | disposition home or self-care (01) ==
LOC: LAB 06:32
PROVIDERS: PCP Family Medicine; Visit Provider Family Medicine
DX: Z79.899 Other long term (current) drug therapy (principal)
CPT/HCPCS: 36415; 80048

== ENCOUNTER 2024-09-27 15:10 | Outpatient (OUT) | payer MEDICARE, MEDICAID, SELFPAY ==
--- OUTSIDE RECORDS SUMMARY | 2024-05-02 06:00 | XMS_ITS ---
Author Organization [facility] Address [address] [address] Care Team Providers Care Lidar Scientist Name Role Phone Dr. Panda Rivera Primary Care Provider [phone] REASON FOR VISIT CUTTER IN EXAM Encounters Encounter Location Date Provider Diagnosis [facility] [address] [place] [address] 05/02/2024 Panda Rivera Plan Of Treatment Next Appt Details Provider Name:Saloni Montero, 01/2025 09:00:00 AM, [address], [place], [address], Provider Name:Saloni Montero, 09:30:00 AM, [address], [place], [address], Provider Name:Brianna Chapa , 11/29/2024 10:40:00 AM, [address], [place], [address], Progress Notes * ALETHEA LEI DDOB:1970 (54 yo M)Acc No.[id number]:05/02/2024 Patient: ALETHEA GUZMAN Provider: Юлия Rivera DDS :1970 A ge:54 Y S ex:Male Date:05/02/2024 Address:[address] [place] [address] [address], [address] [facility] [place] Subjective: * Chief Complaints: * 1 . CUTTER IN EXAM. * Medical History: Objective: * Vitals: Assessment: Plan: * Treatment: * Images: * Electronic signature of Dr. Panda Rievra , DMD on 09/27/2024 at 03:14 PM EDT Sign off status: Pending * Provider: Юлия Rivera DDS Date: 0 05/02/2024 Generated for Jasmin garvin/Genoveva/[place] on: 0 09/27/2024 03:14 PM EDT
--- OUTSIDE RECORDS SUMMARY | 2024-09-27 15:15 | XMS_ITS | Clinical Summary ---
Author Organization [facility] Address [address] [place] [address] Care Team Providers Care Medical Administrator Name Role Phone Go Foster DO Primary Care Provider [phone] Allergies Active Allergy Reactions Criticality Noted Date [...] - 2023-2 5 season) 2023 Influenza Vaccine (#1) 2024 HIB Vaccine Aged Out No longer [...] patient's age to complete this topic Insurance [place] Care Teams Medical Administrator Relationship Specialty Start Date End Date Go Foster DO [address] [place] [address] PCP - General Family Medicine 06/11/16
--- OUTSIDE RECORDS SUMMARY | 2024-09-27 15:15 | XMS_ITS | Encounter Summary ---
Author Organization [facility] Address [address] [place] [address] Care Team Providers Care Patient Transport Orderly Name Role Phone Go Foster Primary Care Provider [phone] Source Comments In the event this information is protected by the Federal Confidentiality of Alcohol and Drug AbusePatient Records regulations: The Federal rules restrict any use of the information to criminally investigate or prosecute any alcohol or drug abuse patient.[facility] Encounter Details Date Type Department Care Team (Late st Contact Info) Description 01/31/2021 Get Medical Advice Psychiatry [address] [place] [address] Ambrocio Romero MD [address] [facility] [address] [place] [address] Visit progress note and next appointment Social [...] ot on file 01/29/2020 Data from: https://www.neighborhoodatlas.medicine.[facility].edu/. Last address used for calculation Not [...] on filedocumented in this encounter Care Teams Patient Transport Orderly Relationship Specialty Start Date End Date Go Foster DO PCP - General 10/24/12 documented as of this encounter
--- OUTSIDE RECORDS SUMMARY | 2024-09-27 15:15 | XMS_ITS | Clinical Summary ---
Author Organization [facility] Address [address] [place] [address] Care Team Providers Care Food And Nutrition Supervisor Name Role Phone Go Foster MD Primary Care Provider Sue Patrick DO Unavailable [phone] Allergies Active Allergy Reactions Criticality Noted [...] Description 08/01/2024 10:00 AM EDT Office Visit [facility] [address] [place] [address] Glenn Flores DPM Lisfranc dislocation, left, initial encounter (Primary Dx) 08/01/2024 Bamboo flowsheet [facility] [address] [place] [address] Glenn Flores DPM 07/11/2024 9:50 AM EDT Office Visit [facility] [address] [place] [id number] Glenn Flores DPM Lisfrjohn dislocation, left, initial encounter (Primary Dx) 07/11/2024 Bamboo flowsheet [facility] [address] [place] [address] Glenn Flores DPM from Last [...] 1970 FIT 1970 FOBT 1970 Sigmoidoscopy 1970 Influenza Vaccine (#1) 2024 4, 12/10/2022, 12/11/2021, Additional history exists Colorectal Cancer Screening 02/12/2026 FIT-DNA 02/12/2026 02/12/2023 Insurance [place]ICAID [place] MEDICARE Care Teams Food And Nutrition Supervisor Relationship Specialty Start Date End Date Go Foster MD [address] [place] [address] [address] [place] [address] PCP - General Family Medicine 02/09/24 Sue Patrick DO [address] [place] [address] Referring Physician Neurology 02/09/24
--- OUTSIDE RECORDS SUMMARY | 2024-09-27 15:15 | XMS_ITS | Patient Health Record ---
Author Organization [facility] Address [address] [place] [address] Care Team Providers Care Intelligence Support Officer Name Role Phone Dr. Panda Rivera Primary Care Provider Yolanda Harley Unavailable [phone] Reason For Referral No Information Encounters Encounter Location Date Provider Diagnosis [facility] [address] [place] [address] 06/01/2024 Yolanda Harley Encounter for dental examination and cleaning with abnormal findings Z01.21 ; Other dental procedure status Z98.818 ; Disturbances in tooth eruption K00.6 ; Acute gingivitis, plaque induced K05.00 ; Dental caries on pit and fissure surface penetrating into dentin K02.52 ; Necrosis of pulp K04.1 and Cracked tooth K03.81 [facility] [address] [place] [address] 09/20/2024 Yolanda Harley Assessments Encounter Date Diagnosis (ICD Code) Assessment [...] Montero, 01/2025 09:00:00 AM, [address], [place], [address], Provider Name:Saloni Montero, 09:30:00 AM, [address], [place], [address], Provider Name:Brianna Chapa , 11/29/2024 10:40:00 AM, [address], [place], [address], Insurance Providers Payer Name Payer Address Payer Phone Subscriber Number Group Number Insured Name Patient Relationship to Insured Coverage Start Date Coverage End Date DENT[place] [address] [place] [id number] [phone] [id number] ALETHEA LEI Self - patient is the insured
--- OUTSIDE RECORDS SUMMARY | 2024-09-27 15:15 | XMS_ITS | Encounter Summary ---
Author Organization [facility] Address [address] [place] [address] Care Team Providers Care Excelsior Picker Name Role Phone Go Foster Primary Care Provider [phone] Source Comments In the event this information is protected by the Federal Confidentiality of Alcohol and Drug AbusePatient Records regulations: The Federal rules restrict any use of the information to criminally investigate or prosecute any alcohol or drug abuse patient.[facility] Encounter Details Date Type Department Care Team (Late st Contact Info) Description 07/15/2021 Get Medical Advice Psychiatry [address] [place] [address] Ambrocio Romero MD [address] [facility] [address] [place] [address] Progress Note from 07/15/21 Zoom appt. Social [...] N ot on file 01/29/2020 Data from: https://www.neighborhoodatlas.medicine.[facility].edu/. Last address used for calculation Not on [...] on filedocumented in this encounter Care Teams Excelsior Picker Relationship Specialty Start Date End Date Go Foster DO PCP - General 10/24/12 documented as of this encounter
--- OUTSIDE RECORDS SUMMARY | 2024-09-27 15:15 | XMS_ITS | Encounter Summary ---
Author Organization [facility] Address [address] [place] [address] Care Team Providers Care Distillation Operator Helper Name Role Phone Go Foster Primary Care Provider [phone] Source Comments In the event this information is protected by the Federal Confidentiality of Alcohol and Drug AbusePatient Records regulations: The Federal rules restrict any use of the information to criminally investigate or prosecute any alcohol or drug abuse patient.[facility] Encounter Details Date Type Department Care Team (Late st Contact Info) Description 07/23/2021 Get Medical Advice Psychiatry [address] [place], [place] [id number] Ambrocio Romero MD [address] [facility] [address] [place], [place] [id number] Need for medical record of televisit on [...] on filedocumented in this encounter Care Teams Distillation Operator Helper Relationship Specialty Start Date End Date Go Foster DO PCP - General 10/24/12 documented as of this encounter
--- OUTSIDE RECORDS SUMMARY | 2024-09-27 15:15 | XMS_ITS | Clinical Summary ---
Author Organization [employer] Address [facility] [id number] [address] [place] [address] Care Team Providers Care Military Exchange Wireless Manager Name Role Phone FosterGo Radhames OLIVO Primary Care Provider [phone] Social History Tobacco Use Types Packs/Day Years [...] ID:Not on file Type:Not on file Address: [address] [phone] MEDICARE Care Teams Military Exchange Wireless Manager Relationship Specialty Start Date End Date Go Foster DO [address] [place] [address] PCP - General 07/17/16
--- OUTSIDE RECORDS SUMMARY | 2024-09-27 15:15 | XMS_ITS | Encounter Summary ---
Author Organization [facility] Address [address] [place] [address] Care Team Providers Care Lard Mixer Name Role Phone Go Foster DO Primary Care Provider Encounter Details Date Type Department Care Team (Late st Contact Info) Description 07/25/2016 Documentation Only Neurology Clinic [facility] [place] [address] [place] [address] Robbi Howell MD, MD [address] [facility] [address] [place] [address] Social History Tobacco Use Types Packs/Day Years [...] on filedocumented in this encounter Care Teams Lard Mixer Relationship Specialty Start Date End Date Go Foster DO [address] [place] [address] PCP - General Family Medicine 06/11/16 documented as of this encounter
--- OUTSIDE RECORDS SUMMARY | 2024-09-27 15:15 | XMS_ITS | Encounter Summary ---
Author Organization [facility] Address [address] [place] [address] Care Team Providers Care Soil Checker Name Role Phone Go Foster DO Primary Care Provider [phone] Source Comments In the event this information is protected by the Federal Confidentiality of Alcohol and Drug AbusePatient Records regulations: The Federal rules restrict any use of the information to criminally investigate or prosecute any alcohol or drug abuse patient.[facility] Encounter Details Date Type Department Care Team (Late st Contact Info) Description 11/23/2012 Patient Msg Medical Records [address] [place] [address] Provider, [facility] Results Social History Tobacco [...] on filedocumented in this encounter Care Teams Soil Checker Relationship Specialty Start Date End Date Go Foster DO PCP - General 10/24/12 documented as of this encounter
--- OUTSIDE RECORDS SUMMARY | 2024-09-27 15:16 | XMS_ITS | Encounter Summary ---
Author Organization [facility] Address [address] [place] [address] Care Team Providers Care Damaged Freight Inspector Name Role Phone Go Foster MD Primary Care Provider [phone] Sue Patrick DO Unavailable [phone] Encounter Details Date Type Department Care Team ([facility] st Contact Info) Description 05/19/2024 Abstract [facility] [address] [place] [address] Glenn Flores DPDoyle [address] [address] Social History Tobacco Use Types Packs/Day Years [...] on filedocumented in this encounter Care Teams Damaged Freight Inspector Relationship Specialty Start Date End Date Go Foster MD [address] [place] [address] [address] [place] [address] PCP - General Family Medicine 02/09/24 Sue Patrick DO [address] [place] [address] Referring Physician Neurology 02/09/24 documented as of this encounter
--- OUTSIDE RECORDS SUMMARY | 2024-09-27 15:16 | XMS_ITS | Encounter Summary ---
Author Organization [facility] Address [address] [place] [address] Care Team Providers Care Composition Board Press Operator Name Role Phone Go Foster Primary Care Provider [phone] Source Comments In the event this information is protected by the Federal Confidentiality of Alcohol and Drug AbusePatient Records regulations: The Federal rules restrict any use of the information to criminally investigate or prosecute any alcohol or drug abuse patient.[facility] Encounter Details Date Type Department Care Team (Late st Contact Info) Description 05/19/2024 Patient Msg Neurology [address] [id number] Kathy Groves, Research Coordinator Information sheet: [place] [facility] [place] Database Social History Tobacco Use [...] N ot on file 01/29/2020 Data from: https://www.neighborhoodatlas.[facility]/. Last address used for calculation Not [...] on filedocumented in this encounter Care Teams Composition Board Press Operator Relationship Specialty Start Date End Date Go Foster DO PCP - General 10/24/12 documented as of this encounter
--- OUTSIDE RECORDS SUMMARY | 2024-09-27 15:16 | XMS_ITS | Encounter Summary ---
Author Organization [facility] Address [address] [place] [address] Care Team Providers Care City Magistrate Name Role Phone Go Foster Primary Care Provider [phone] Source Comments In the event this information is protected by the Federal Confidentiality of Alcohol and Drug AbusePatient Records regulations: The Federal rules restrict any use of the information to criminally investigate or prosecute any alcohol or drug abuse patient.[facility] Encounter Details Date Type Department Care Team (Late st Contact Info) Description 01/08/2022 Get Medical Advice Psychiatry [address] [place] [address] Ambrocio Romero MD [address] [facility] [address] [place] [address] Televisit today for Delano Segovia Social History [...] N ot on file 01/29/2020 Data from: https://www.neighborhoodatlas.medicine.[facility].edu/. Last address used for calculation Not [...] on filedocumented in this encounter Care Teams City Magistrate Relationship Specialty Start Date End Date Go Foster DO PCP - General 10/24/12 documented as of this encounter
--- OUTSIDE RECORDS SUMMARY | 2024-09-27 15:16 | XMS_ITS | Clinical Summary ---
Author Organization [facility] Address [address] [place] [address] Care Team Providers Care Warp Yarn Sorter Name Role Phone Foster Go Radhames OLIVO [...] Hemangioma of skin and subcutaneous tissue 02/01 Social History Tobacco Use Types Packs/Day Years [...] N ot on file 01/29/2020 Data from: https://www.neighborhoodatlas.medicine.[facility].edu/. Last address used for calculation Not [...] 01/10/2018 Shingrix Vaccine (1 of 2) 01/10/2018 Influenza Vaccine (#1) 2024 3, 12/11/2021, 12/19/2020, [...] EDT) Glucose 81 65 - 100 mg/dL [facility] BUN 18 10 - 25 mg/dL [facility] Creatinine 1.04 0.70 - 1.40 mg/dL [facility] Sodium 144 135 - 146 mmol/L [facility] Potassium 4.1 3.5 - 5.0 mmol/L [facility] Chloride 112(H) 98 - 110 mmol/L [facility] CO2 21(L) 23 - 32 mmol/L [facility] Anion Gap 11 0 - 15 mmol/L [facility] Calcium 8.4(L) 8.5 - 10.5 mg/dL [facility] Blood specimen (specimen) BLOOD SPECIMEN / Unknown 10/29/2012 4:44 AM EDT 10/29/2012 4:45 AM EDT us Marcelo Xie MD LABORATORY Final Result [facility] [address] [place] [address] from Last 3 Months or Most Recently Relevant to Health Maintenance Insurance [address] [place] [address] MEDICARE [phone] MEDICAID [place] Care Teams Warp Yarn Sorter Relationship Specialty Start Date End Date Go Foster DO PCP - General 10/24/12
[2024-09-27 16:10] LABS: Anion Gap 12.6; Blood Urea Nitrogen 27.0 mg/dL (7.0-18.0); Calcium 9.2 mg/dL (8.5-10.1); Carbon Dioxide 27.0 mmol/L (21.0-32.0); Chloride 107 mmol/L (98-107); Estimated GFR (African America >60 (>=60 mL/min/1.73m^2); Estimated GFR (Non-African Ame 52 (>=60 mL/min/1.73m^2); Glucose 93 mg/dL (74-106); Partial Thromboplastin Time 27.9 sec (22.3-36.2); Potassium 4.6 mmol/L (3.5-5.1); Sodium 142 mmol/L (136-145)
== END 2024-09-27 15:11 | disposition home or self-care (01) ==
PROVIDERS: PCP Family Medicine; Visit Provider Family Medicine
DX: Z01.812 Encounter for preprocedural laboratory examination (principal); N18.30 Chronic kidney disease, stage 3 unspecified; Q85.1 Tuberous sclerosis; K59.00 Constipation, unspecified; I12.9 Hypertensive chronic kidney disease with stage 1 through stage 4 chronic kidney disease, or unspecified chronic kidney disease
CPT/HCPCS: 36415; 80048; 85730

== ENCOUNTER 2024-10-04 13:48 | Outpatient (REF) | payer MEDICARE, MEDICAID, SELFPAY ==
--- OUTSIDE RECORDS SUMMARY | 2024-09-28 05:00 | XMS_ITS ---
Author Organization [facility] Address [address] [address] Care Team Providers Care Manager Pathology Name Role Phone Dr. Panda Rivera Primary Care Provider [phone] Yolanda Harley [phone] REASON FOR VISIT FILLING Encounters Encounter Location Date Provider Diagnosis [facility] [address] [place] [address] 09/28/2024 Yolanda Harley Plan Of Treatment Next Appt Details Provider Name:Saloni Montero, 09:30:00 AM, [address], [place], [address], Provider Name:Saloni Montero, 02/2024 11:30:00 AM, [address], [place], [address], Provider Name:Saloni Montero, 04/2024 11:30:00 AM, [address], [place], [address], Provider Name:Brianna Chapa , 11/29/2024 10:40:00 AM, [address], [place], [address], Progress Notes * ALETHEA LEI DDOB:1970 (54 yo M)Acc No.[id number]:09/28/2024 Patient: ALETHEA GUZMAN Provider: Юлия Harley :1970 A ge:54 Y S ex:Male Date:09/28/2024 Address:[address] [place] [address] [address], [facility] Pcp:Dr. Panda Rivera Subjective: * Chief Complaints: * 1 . FILLING. * Medical History: Objective: * Vitals: Assessment: Plan: * Treatment: * Images: * Electronic signature of Omaira Harley DMD on 10/04/2024 at 01:53 PM EDT Sign off status: Pending * Provider: Юлия Harley Date: 0 09/28/2024 Generated for Jasmin garvin/Genoveva/[place] on: 0 10/04/2024 01:53 PM EDT
--- OUTSIDE RECORDS SUMMARY | 2024-10-04 13:53 | XMS_ITS | Encounter Summary ---
Author Organization [facility] Address [address] [place] [address] Care Team Providers Care Small Engine Mechanic Name Role Phone Go Foster Primary Care Provider [phone] Source Comments In the event this information is protected by the Federal Confidentiality of Alcohol and Drug AbusePatient Records regulations: The Federal rules restrict any use of the information to criminally investigate or prosecute any alcohol or drug abuse patient.[facility] Encounter Details Date Type Department Care Team (Late st Contact Info) Description 07/15/2021 Get Medical Advice Psychiatry [address] [place] [address] Ambrocio Romero MD [address] [facility] [address] [place] [address] Progress Note from 07/15/21 Zoom appt. Social [...] N ot on file 01/29/2020 Data from: https://www.neighborhoodatlas.medicine.[facility].edu/. Last address used for calculation Not [...] on filedocumented in this encounter Care Teams Small Engine Mechanic Relationship Specialty Start Date End Date Go Foster DO PCP - General 10/24/12 documented as of this encounter
--- OUTSIDE RECORDS SUMMARY | 2024-10-04 13:53 | XMS_ITS | Encounter Summary ---
Author Organization [facility] Address [address] [place] [address] Care Team Providers Care Preventative Maintenance Technician Name Role Phone Go Foster Primary Care Provider [phone] Source Comments In the event this information is protected by the Federal Confidentiality of Alcohol and Drug AbusePatient Records regulations: The Federal rules restrict any use of the information to criminally investigate or prosecute any alcohol or drug abuse patient.[facility] Encounter Details Date Type Department Care Team (Late st Contact Info) Description 05/19/2024 Patient Msg Neurology [address] [id number] Kathy Groves, Research Coordinator Information sheet: updates for [facility] [place] Natural History Database Social [...] N ot on file 01/29/2020 Data from: https://www.neighborhoodatlas.[facility]/. Last address used for calculation Not on [...] on filedocumented in this encounter Care Teams Preventative Maintenance Technician Relationship Specialty Start Date End Date Go Foster DO PCP - General 10/24/12 documented as of this encounter
--- OUTSIDE RECORDS SUMMARY | 2024-10-04 13:53 | XMS_ITS | Clinical Summary ---
Author Organization [facility] Address [address] [place] [address] Care Team Providers Care Able Bodied Watchman Name Role Phone Go Foster DO Primary [...] patient's age to complete this topic Insurance [place] Care Teams Able Bodied Watchman Relationship Specialty Start Date End Date Go Foster DO [address] [place] [address] PCP - General Family Medicine 06/11/16
--- OUTSIDE RECORDS SUMMARY | 2024-10-04 13:53 | XMS_ITS | Encounter Summary ---
Author Organization [facility] Address [address] [address] Care Team Providers Care Manual Arts Therapy Teacher Name Role Phone Go Foster DO Primary Care Provider [phone] Encounter Details Date Type Department Care Team (Late st Contact Info) Description 07/25/2016 Documentation Only Neurology Clinic Main [place] [address] [place] [address] Robbi Howell MD, MD [address] [facility] [address] [place] [address] Social History Tobacco Use Types Packs/Day Years [...] on filedocumented in this encounter Care Teams Manual Arts Therapy Teacher Relationship Specialty Start Date End Date Go Foster DO [address] [place] [address] PCP - General Family Medicine 06/11/16 documented as of this encounter
--- OUTSIDE RECORDS SUMMARY | 2024-10-04 13:53 | XMS_ITS | Clinical Summary ---
Author Organization [facility] Address [address] [place] [address] Care Team Providers Care Shuttle Buggy Operator Name Role Phone Go Foster MD Primary Care Provider Sue Patrick DO Unavailable [phone] Allergies Active Allergy Reactions Criticality Noted [...] EDT Office Visit [facility] [address] [place] [address] Glenn lFores DPM Lisfranc dislocation, left, initial encounter (Primary Dx) 08/01/2024 Bamboo flowsheet [facility] [address] [place] [address] Glenn Flores DPM 07/11/2024 9:50 AM EDT Office Visit [facility] [address] [place] [address] Glenn Flores DPM Lisfrjohn dislocation, left, initial encounter (Primary Dx) 07/11/2024 Bamboo flowsheet [facility] [address] [place] [address] Glenn Flores DPM from Last [...] 02/12/2023 Insurance MEDICAID [place] MEDICARE Care Teams Shuttle Buggy Operator Relationship Specialty Start Date End Date Go Foster MD [address] [place] [address] [address] [place] [address] PCP - General Family Medicine 02/09/24 Sue Patrick DO [address] [place] [address] Referring Physician Neurology 02/09/24
--- OUTSIDE RECORDS SUMMARY | 2024-10-04 13:53 | XMS_ITS | Encounter Summary ---
Author Organization [facility] Address [address] [place] [address] Care Team Providers Care Heart Doctor Name Role Phone Go Foster DO Primary Care Provider [phone] Source Comments In the event this information is protected by the Federal Confidentiality of Alcohol and Drug AbusePatient Records regulations: The Federal rules restrict any use of the information to criminally investigate or prosecute any alcohol or drug abuse patient.[facility] Encounter Details Date Type Department Care Team (Late st Contact Info) Description 11/23/2012 Patient Msg Medical Records [address] [place] [address] Provider, [facility] Results Social History Tobacco [...] on filedocumented in this encounter Care Teams Heart Doctor Relationship Specialty Start Date End Date Go Foster DO PCP - General 10/24/12 documented as of this encounter
--- OUTSIDE RECORDS SUMMARY | 2024-10-04 13:53 | XMS_ITS | Clinical Summary ---
Author Organization [email or web address] Address [id number] [address] [place] [address] Care Team Providers Care Atomic Welder Name Role Phone FosterGo Radhames OLIVO Primary [...] ID:Not on file Type:Not on file Address: [address] [phone] MEDICARE Care Teams Atomic Welder Relationship Specialty Start Date End Date Go Foster DO [address] [place] [address] PCP - General 07/17/16
--- OUTSIDE RECORDS SUMMARY | 2024-10-04 13:53 | XMS_ITS | Encounter Summary ---
Author Organization [facility] Address [address] [place] [address] Care Team Providers Care Marine Safety Officer Name Role Phone oG Foster Primary Care Provider +[phone] Source Comments In the event this information is protected by the Federal Confidentiality of Alcohol and Drug AbusePatient Records regulations: The Federal rules restrict any use of the information to criminally investigate or prosecute any alcohol or drug abuse patient.[facility] Encounter Details Date Type Department Care Team (Late st Contact Info) Description 01/08/2022 Get Medical Advice Psychiatry [address] [place] [address] Ambrocio oRmero MD [address] [facility] [address] [place] [address] Televisit today for Delano Segovia Social History [...] N ot on file 01/29/2020 Data from: https://www.neighborhoodatlas.medicine.[facility].edu/. Last address used for calculation Not on [...] on filedocumented in this encounter Care Teams Marine Safety Officer Relationship Specialty Start Date End Date Go Foster DO PCP - General 10/24/12 documented as of this encounter
--- OUTSIDE RECORDS SUMMARY | 2024-10-04 13:53 | XMS_ITS | Patient Health Record ---
Author Organization [facility] Address [address] [address] Care Team Providers Care Advertising Operations Manager Name Role Phone Dr. Panda Rivera Primary Care Provider [phone] Yolanda Harley Unavailable [phone] Saloni Montero Unavailable [phone] Reason For Referral No Information Encounters Encounter Location Date Provider Diagnosis [facility] [address] [place] [address] 06/01/2024 Yolanda Harley Encounter for dental examination and cleaning with abnormal findings Z01.21 ; Other dental procedure status Z98.818 ; Disturbances in tooth eruption K00.6 ; Acute gingivitis, plaque induced K05.00 ; Dental caries on pit and fissure surface penetrating into dentin K02.52 ; Necrosis of pulp K04.1 and Cracked tooth K03.[address] [address] [place] [address] 09/20/2024 Yolanda Harley [address] [address] [place] [address] 10/04/2024 Saloni Mongolian Dental caries on pit and fissure surface penetrating into dentin K02.52 and Cracked tooth K03.81 Assessments Encounter Date Diagnosis (ICD Code) Assessment Notes Treatment Notes Treatment Clinical Notes Section Notes 06/01/2024 Encounter for dental examination and cleaning with abnormal findings (ICD-10 - Z01.21) 10/04/2024 Dental caries on pit and fissure surface penetrating into dentin (ICD-10 - K02.52) 10/04/2024 Cracked tooth (ICD-10 - K03.81) 06/01/2024 Other dental procedure status (ICD-10 - Z98.818) 06/01/2024 Disturbances in tooth eruption (ICD-10 - K00.6) 06/01/2024 Acute gingivitis, plaque induced (ICD-10 - K05.00) 06/01/2024 Dental caries on pit and fissure surface penetrating into dentin (ICD-10 - K02.52) 06/01/2024 Necrosis of pulp (ICD-10 - K04.1) 06/01/2024 Cracked tooth (ICD-10 - K03.81) Plan Of Treatment Next Appt Details Provider Name:Saloni Mongolian, 09:30:00 AM, [address], [place], [address], Provider Name:Saloni Mongolian, 02/2024 11:30:00 AM, [address], [place], [address], Provider Name:Saloni Mongolian, 04/2024 11:30:00 AM, [address], [place], [address], Provider Name:Brianna Eduard , 11/29/2024 10:40:00 AM, [address], [place], [address], Insurance Providers Payer Name Payer Address Payer Phone Subscriber Number Group Number Insured Name Patient Relationship to Insured Coverage Start Date Coverage End Date DENTAL MEDICAID [facility] [address] [place] [phone] [id number] ALETHEA LEI Self - patient is the insured
--- OUTSIDE RECORDS SUMMARY | 2024-10-04 13:53 | XMS_ITS | Encounter Summary ---
Author Organization [facility] Address [address] [place] [address] Care Team Providers Care Children Counselor Name Role Phone Go Foster Primary Care Provider [phone] Source Comments In the event this information is protected by the Federal Confidentiality of Alcohol and Drug AbusePatient Records regulations: The Federal rules restrict any use of the information to criminally investigate or prosecute any alcohol or drug abuse patient.[facility] Encounter Details Date Type Department Care Team (Late st Contact Info) Description 01/31/2021 Get Medical Advice Psychiatry [address] [place] [address] Ambrocio Romero MD [address] [facility] [address] [place] [address] Visit progress note and next appointment Social [...] N ot on file 01/29/2020 Data from: https://www.neighborhoodatlas.medicine.[facility].edu/. Last address used for calculation Not on [...] on filedocumented in this encounter Care Teams Children Counselor Relationship Specialty Start Date End Date Go Foster DO PCP - General 10/24/12 documented as of this encounter
--- OUTSIDE RECORDS SUMMARY | 2024-10-04 13:53 | XMS_ITS | Encounter Summary ---
Author Organization [facility] Address [address] [place] [address] Care Team Providers Care Licensed Mortician Name Role Phone Go Foster Primary Care Provider [phone] Source Comments In the event this information is protected by the Federal Confidentiality of Alcohol and Drug AbusePatient Records regulations: The Federal rules restrict any use of the information to criminally investigate or prosecute any alcohol or drug abuse patient.[facility] Encounter Details Date Type Department Care Team (Late st Contact Info) Description 07/23/2021 Get Medical Advice Psychiatry [address] [place], [place] [id number] Ambrocio Romero MD [address] [facility] [address] [place], [place] [id number] Need for medical record of televisit on [...] N ot on file 01/29/2020 Data from: https://www.neighborhoodatlas.medicine.[facility].edu/. Last address used for calculation [...] on filedocumented in this encounter Care Teams Licensed Mortician Relationship Specialty Start Date End Date Go Foster DO PCP - General 10/24/12 documented as of this encounter
--- OUTSIDE RECORDS SUMMARY | 2024-10-04 13:54 | XMS_ITS | Encounter Summary ---
Author Organization [facility] Address [address] [place] [address] Care Team Providers Care Superintendent Terminal Name Role Phone Go Foster MD Primary Care Provider [phone] Sue Patrick DO Unavailable [phone] Encounter Details Date Type Department Care Team ([facility] st Contact Info) Description 05/19/2024 Abstract [facility] [address] [place] [address] Glenn Flores DPDoyle [address] [address] Social History Tobacco Use Types Packs/Day Years [...] on filedocumented in this encounter Care Teams Superintendent Terminal Relationship Specialty Start Date End Date Go Foster MD [address] [place] [address] [address] [place] [address] PCP - General Family Medicine 02/09/24 Sue Patrick DO [address] [place] [address] Referring Physician Neurology 02/09/24 documented as of this encounter
--- OUTSIDE RECORDS SUMMARY | 2024-10-04 13:54 | XMS_ITS | Clinical Summary ---
Author Organization [facility] Address [address] [place] [address] Care Team Providers Care Geriatric Social Work Professor Name Role Phone Foster Go Radhames OLIVO [...] file 01/29/2020 Data from: https://www.neighborhoodatlas.medicine.[facility].edu/. Last address used for calculation Not [...] EDT) Glucose 81 65 - 100 mg/dL [facility] BUN 18 10 - 25 mg/dL [facility] Creatinine 1.04 0.70 - 1.40 mg/dL [facility] Sodium 144 135 - 146 mmol/L [facility] Potassium 4.1 3.5 - 5.0 mmol/L [facility] Chloride 112(H) 98 - 110 mmol/L [facility] CO2 21(L) 23 - 32 mmol/L [facility] Anion Gap 11 0 - 15 mmol/L [facility] Calcium 8.4(L) 8.5 - 10.5 mg/dL [facility] Blood specimen (specimen) BLOOD SPECIMEN / Unknown 10/29/2012 4:44 AM EDT 10/29/2012 4:45 AM EDT us Marcelo Xie MD LABORATORY Final Result [facility] [address] [place] [address] from Last 3 Months or Most Recently Relevant to Health Maintenance Insurance [address] [place] [address] MEDICARE [id number] MEDICAID [place] Care Teams Geriatric Social Work Professor Relationship Specialty Start Date End Date Go Foster DO PCP - General 10/24/12
--- OUTSIDE RECORDS SUMMARY | 2024-10-04 14:23 | XMS_ITS | CCD ---
Author Organization [facility] Care Team Providers Care Professional Driver Name Role Phone Robbi PETERSEN Unavailable Unavailable FOSTERGO Unavailable Unavailable FOSTERGO Unavailable Unavailable Nallely Parada Unavailable Cj Gayle Unavailable DO Go Foster Primary Care Provider DO Cj Gayle Attending Provider PROVIDER, UNKNOWN Attending Unavailable PROVIDER, UNKNOWN Admitting Unavailable PROVIDER, UNKNOWN Admitting Unavailable PROVIDER, UNKNOWN Attending Unavailable SIMI EDWARDS Admitting Unavailable SIMI EDWARDS Attending Unavailable SIMI EDWARDS Referring Unavailable Unavailable Primary Care Provider UnavailDO Go Ryan Primary Care Provider DO Cj Gyale Attending Provider DO Go Foster Primary Care Provider DO Cj Gayle Attending Provider MD Nallely Parada Attending Provider Unavailable Primary Care Provider UnavailTRAN Wilkins Admitting Unavailable TRAN ELKINS Attending Unavailable OLGA, DR GO Ricci Primary Care Unavailable BRE, DR SANDY Velez Consulting Unavailable MICHELLE GILMAN Consulting Unavailable TRAN ELKINS Consulting Unavailable [...] Unavailable FOSTER, DR GO Ricci Attending Unavailable JONAH MAJANO [...] Consulting Unavailable FOSTER, GO Primary Care Physician [phone] FOSTERGO Admitting Unavailable FOSTER, GO Attending Unavailable FOSTER, GO Attending Unavailable FOSTER, GO Admitting Unavailable FOSTER, GO Attending Unavailable FOSTER, GO Admitting Unavailable FOSTER, GO Attending Unavailable FOSTER, GO Admitting Unavailable Unallocated , Arnies Provider Primary Care [facility] Go Foster MD Primary Care Provider Sue [...] Unavailable Owen ACKERMAN, Adams Maldonado Attending Provider [phone] Geovanny Dong DO Attending Provider Go Foster DO Primary Care Provider Daljit Messina DO Admit Provider [phone] Ritu Cabrera MD Other Provider [phone] Denise Marin MD Other Provider Agusto STEELE-C, Linda Other Provider Unavailable Clint Brizuela MD Attending [...] Brizuela Consulting Unavailable Luisa Santizo Consulting Unavailable Ana Maria Hsu APRN Attending Provider Ashanti Bautista Attending Unavailable Radha Kirkland Attending Unavailable MD HERBER GAGNON Admitting Unav ailable MD HERBER GAGNON Attending Unav ailable MD HERBER GAGNON Referring Unav ailable Ashanti Bautista Attending Unavailable MD HERBER GAGNON Attending Unav ailable MD HERBER GAGNON Referring Unav ailable VILLALOBOS, Chacha Consulting Unavailable MD HERBER GAGNON Admitting Unav ailable VILLALOBOS, [facility] Chacha Consulting Unavaila ble VILLALOBOS, Chacha Consulting Unavailable VILLALOBOS, Chacha Consulting Unavailable VILLALOBOS, Chacha Consulting Unavailable VILLALOBOS, Chacha Consulting Unavailable VILLALOBOS, Chacha Consulting Unavailable VILLALOBOS, Chacha Consulting Unavailable VILLALOBOS, Chacha Consulting Unavailable MD HERBER GAGNON Attending Unav ailable MD HERBER GAGNON Referring Unav ailable MD HERBER GAGNON Admitting Unav ailable MD HERBER GAGNON Attending Unav ailable MD HERBER GAGNON Admitting Unav ailable MD HERBER GAGNON Attending Unav ailable MD HERBER GAGNON Referring Unav ailable VILLALOBOS, Chacha Consulting Unavailable VILLALOBOS, AGACNP- Chacha Consulting Unavaila ble VILLALOBOS, Chacha Consulting Unavailable VILLALOBOS, Chacha Consulting Unavailable VILLALOBOS, Chacha Consulting Unavailable VILLALOBOS, Chacha Consulting Unavailable VILLALOBOS, Chacha Consulting Unavailable VILLALOBOS, Chacha Consulting Unavailable VILLALOBOS, Chacha Consulting Unavailable Allergies Allergy Classification Reported Allergen(s) Allergy Type Date of Onset Reaction(s) Facility (1 source) PERTUSSIS VACCINE,FLUID; Translations: [PERTUSSIS VACCINE,FLUID] Propensity to adverse reactions to drug (disorder) [facility] (20 sources) PERTUSSIS VACCINES; Translations: [PERTUSSIS VACCINES] Propensity to adverse reactions to drug (disorder) 8 Unknown [facility] Repository (1 source) Pertussis Vaccine Drug Allergy 3 [facility] Repository (1 source) ARIPiprazole; Translations: [ARIPIPRAZOLE] Drug Allergy 8 [facility] Repository Medications Current Medications Medication Drug [...] sources) Dihydropyridine Calcium Channel Deena Start: 08-17-2024 amLODIPine 10 mg Tab 10 mg = 1 tab(s), Refills(s) 0 Start Date: 09/07/24 Status: Ordered Repeat number: 1 Start: 02-03-2024 take 1 tablet by summer th once daily amLODIPine (Norvasc) 5 MG tablet Take 5 mg by mouth Daily 02/03/2024 Active atorvastatin 40 mg oral tablet (20 sources) HMG-CoA Reductase Inhibitor Start: 09-24-2021 atorvastatin 40 mg Tab 40 mg = 1 tab(s), Refills(s) 0 Start Date: 09/07/24 Status: Ordered Repeat number: 1 benztropine mesylate 1 mg oral tablet (20 sources) Anticholinergic, Antihistamine Start: 09-24-2021 benztropine 1 mg Tab 1 mg = 1 tab(s), Refills(s) 0 Start Date: 09/07/24 Status: Ordered Repeat number: 1 Start: 09-24-2021 take 1 mg by mouth [...] sources) Central alpha-2 Adrenergic Agonist Start: 08-17-2024 cloNIDine 0.2 mg Tab 0.2 mg = 1 tab(s), Refills(s) 0 Start Date: 09/07/24 Status: Ordered Repeat number: 1 Start: 09-24-2021 End: 09-21-2024 take 1 tablet by mouth once daily Clonidine Hcl 0.1 mg Tablet Discontinued 0.1 MG PO Daily September 24, 2021 12:00am September 21, 2024 2:39pm take 1 tablet by summer th three times daily cloNIDine (Catapres) 0.1 MG tablet TAKE ONE TABLET BY MOUTH 3 TIMES DAILY CATAPRES Active cloNIDine HCl (C ATAPRES ORAL) Take by mouth. Active cloNIDine HCl (C ATAPRES ORAL) Take by mouth. 0 Active Daily Feli oral tablet (1 source) Start: 09-07-2024 take 1 tablet by mouth once daily Daily Feli oral tablet 1 tab(s), Refill(s) 0 Start Date: 09/07/24 Status: Ordered Repeat number: 1 1 ml denosumab 60 mg/ml prefilled syringe [...] mg oral capsule (20 sources) Start: 08-17-2024 docusate sodiu m 100 mg Cap 100 mg = 1 cap(s), Refills(s) 0 Start Date: 09/07/24 Status: Ordered Repeat number: 1 take 1 capsule by mouth three ti [...] oral tablet (20 sources) Typical Antipsychotic Start: 09-07-2024 haloperi dol 5 mg Tab 5 mg = 1 tab(s), Refills(s) 0 Start Date: 09/07/24 Status: Ordered Repeat number: 1 Start: 09-24-2021 Haloperidol 5 mg tablet Active 0 PO Daily September 24, 2021 12:00am 15mg orally daily; 0800 10mg orally evening 1600 15mg orally bedtime 1999 Complies with drug therapy Start: 09-24-2021 take 5 mg by mouth once daily Haloperidol Active 5 MG PO Daily September 23, 2021 11:00pm levETIRAcetam 500 mg oral ta blet (20 sources) Start: 08-17-2024 levetiracetam 500 mg Tab 500 mg = 1 tab(s), Refills(s) 0 Start Date: 09/07/24 Status: Ordered Repeat number: 1 Start: 01-27-2023 take 1 tablet by summer th in the morning levETIRAcetam (Keppra) 500 MG tablet Take 1 tablet by mouth in the morning and 1 tablet before bedtime. 01/27/2023 Active levothyroxine sodium 0.137 mg oral tablet (20 sources) l-Thyroxine Start: 09-07-2024 levothyroxine 137 mcg (0.137 mg) Tab 137 mcg = 1 tab(s), Refills(s) 0 Start Date: 09/07/24 Status: Ordered Repeat number: 1 Start: 08-17-2024 take 1 tablet by summer th once daily Levothyroxine 137 mcg tablet Active [...] in the morning. 01/27/2023 Active Multivitamin tablet (3 sources) Start: take 1 tablet by mouth once daily Multivitamin tablet Active 1 TAB PO Daily August 17, 2024 12:00am Complies with drug therapy nebivolol 5 mg oral tablet (5 sources) Start: Nebivolol 5 mg oral tablet 5 mg = 1 tab(s), Refills(s) 0 Start Date: 09/07/24 Status: Ordered Repeat number: 1 OXcarbazepine 600 mg oral tablet (20 sources) Anti-epileptic Agent Start: oxcarbazepine 600 mg Tab 600 mg = 1 tab(s), Refills(s) 0 Start Date: 09/07/24 Status: Ordered Repeat number: 1 Start: 09-24-2021 take 600 mg by mouth twice daily Oxcarbazepine Active 600 MG PO Twice daily September 23, 2021 11:00pm OXcarbazepine (T RILEPTAL ORAL) Take by mouth. Active OXcarbazepine (T RILEPTAL ORAL) Take by mouth. 0 Active Oyster Shell Calcium with Vitamin D 500 mg-200 intl units oral tablet (1 source) Start: 09-07-2024 take 1 tablet by mouth once Oyster Shell Calcium with Vitamin D 500 mg-200 intl units oral tablet 1 tab(s), Refill(s) 0 Start Date: 09/07/24 Status: Ordered Repeat number: 1 PARoxetine hydrochloride 40 mg oral tablet (20 sources) Serotonin Reuptake Inhibitor Start: 09-07-2024 paroxetine 40 mg Tab 40 mg = 1 tab(s), Refills(s) 0 Start Date: 09/07/24 Status: Ordered Repeat number: 1 Start: 09-24-2021 Paroxetine Hcl 40 mg tablet Active 60 MG PO Bedtime September 24, 2021 12:00am Complies with drug therapy Start: 09-24-2021 take 40 mg by mouth once daily Paroxetine Hcl Active 40 MG PO Daily September 23, 2021 11:00pm Potassimin (7 sources) Potassimin Activ e predniSONE 50 mg oral tablet (1 source) Start: 09-07-2024 predniSONE 50 mg Tab 50 mg = 1 tab(s), Refills(s) 0 Start Date: 09/07/24 Status: Ordered Repeat number: 1 Saliva Substitute Combo No.9 (Biotene Dry Mouth Oral Rinse) mouthwash (8 sources) Start: 09-24-2021 Saliva Substit tribal Combo No.9 (Biotene Dry Mouth Oral Rinse) mouthwash Active 5 ML PO As Directed as needed for Dry Mouth September 24, 2021 12:00am Complies with drug therapy Start: 09-24-2021 Saliva Substit tribal Combo No.9 (Biotene Dry Mouth Oral Rinse) mouthwash Active 5 ML PO As Directed September 23, 2021 11:00pm Start: 09-24-2021 Saliva Substit tribal Combo No.9 (Biotene Dry Mouth Oral Rinse) mouthwash Active 5 ML PO As Directed September 24, 2021 12:00am sennosides, nursing home 8.6 mg oral tablet (3 sources) Start: 09-07-2024 Senna-Time 8.6 mg oral tablet 8.6 mg = 1 tab(s), Refills(s) 0 Start Date: 09/07/24 Status: Ordered Repeat number: 1 Start: 08-19-2024 take 2 tablets by mo uth once daily at bedtime Sennosides (Senna Lax) 8.6 mg Tablet Active 17.2 MG PO Daily at bedtime 0 August 19, 2024 12:00am Complies with drug therapy triamcinolone acetonide 1 mg/ml topical cream (20 [...] / HYDROcodone bitartrate 5 mg oral tablet (8 sources) Opioid Agonist Start: 09-24-2021 End: 08-17-2024 take 1 tablet by mouth every four to six hours as needed for pain Hydrocodone-Aceta minophen 5-325 mg Tablet Discontinued 1 TAB PO EVERY 4-6 HOURS as needed for Pain September 24, 2021 12:00am August 17, 2024 2:57am alendronic acid 70 mg oral tablet (15 sources) Bisphosphonate Start: 09-24-2021 End: 08-17-2024 take 1 tablet by mouth once daily Alendronate 70 mg tablet Discontinued 70 MG PO Daily September 24, 2021 12:00am August 17, 2024 2:57am aspirin 81 mg delayed release oral tablet (18 sources) Platelet Aggregation Inhibitor, Nonsteroidal Anti-inflammatory Drug [...] Date Episodic/Chronic Acute and unspecified renal failure (9 sources) Acute renal failure syndrome; Translations: [Acute kidney failure, unspecified] Onset: 08-17-2024 08-17-2024 Episodic Anxiety disorders (2 sources) Obsessive-compulsive disorder 08-24-2024 Chronic Attention-deficit, conduct, and disruptive behavior disorders (20 sources) Disruptive behavior disorder; 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, unspecified] 08-06-2023 Chronic Chronic kidney disease (10 sources) Chronic kidney disease, unspecified; Translations: [Chronic kidney disease] Onset: 03-17-2022 08-17-2024 Chronic Delirium, dementia, and amnestic and other cognitive disorders (7 sources) Frontal lobe syndrome; 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] Onset: 08-17-2024 08-17-2024 Chronic Developmental disorders (20 sources) Unspecified intellectual disabilities; Translations: [Intellectual disability] Onset: 01-31-2021 08-06-2023 Chronic Disorders usually diagnosed in infancy, childhood, or adolescence (7 sources) Autistic disorder; Translations: [Autism spectrum disorder] Onset: 08-01-2015 08-17-2024 Chronic Comment on above: MRDD Epilepsy; convulsions (20 sources) Epilepsy, unspecified, not intractable, without status epilepticus; Translations: [Seizure disorder] Onset: 03-17-2022 08-06-2023 Chronic Essential hypertension (8 sources) Essential (primary) hypertension; Translations: [Hypertensive disorder] Onset: 09-25-2021 08-17-2024 Chronic Fluid and electrolyte disorders (13 sources) Metabolic acidosis; Translations: [Metabolic acidosis] Onset: 08-17-2024 08-17-2024 Episodic Fracture of lower limb (12 sources) Displaced fracture of lateral malleolus of right fibula, subsequent encounter for closed fracture with routine healing; Translations: [Fracture of ankle] Onset: 09-25-2021 Resolved: 10-16-2021 Episodic Fracture of lower limb (3 sources) Other fracture of lower end of left tibia, subsequent encounter for closed fracture with routine healing Onset: 10-16-2021 Resolved: 10-16-2021 Episodic Genitourinary symptoms and ill-defined conditions (1 source) Retention of urine; Translations: [Retention of urine, unspecified] Onset: 09-07-2024 Episodic Headache; including migraine (1 source) Headache; including migraine; Translations: [HEADACHE UNSPECIFIED] Onset: 09-25-2021 Joint disorders and dislocations; trauma-related (8 sources) Traumatic dislocation of joint of foot; Translations: [Dislocation of tarsometatarsal joint of left foot, initial encounter] 05-27-2024 Episodic Mood disorders (2 sources) Depressive disorder 08-24-2024 Chronic Osteoporosis (4 sources) Age-related osteoporosis without current [...] site] 08-06-2023 Episodic Other connective tissue disease (4 sources) Recurrent falls ; Translations: [Repeated falls] [...] foot, initial encounter] 05-18-2024 Episodic Thyroid disorders (14 sources) Hypothyroidism, unspecified; Translations: [Hypothyroidism] Onset: 09-25-2021 Chronic Unclassified (3 sources) CHRN KIDNEY DISEASE STG 3 UNSP; Translations: [CHRN KIDNEY DISEASE STG 3 UNSP] Onset: 05-31-2022 Unclassified (1 source) CONTACT W/AND (SUSP) EXPOS COVID-19; Translations: [CONTACT W/AND (SUSP) EXPOS COVID-19] Onset: 09-25-2021 Unclassified (4 sources) Please call to arrange a follow-up visit at [place]. Unclassified (4 sources) Follow-up with Neurology as previously scheduled. Unclassified (2 sources) Follow-up with Urology for acute urinary retention, call office to reschedule if needed. Unclassified (1 source) Acidosis, unspecified; Translations: [Acidosis, unspecified] Onset: 08-17-2024 Urinary tract infections (6 sources) Cystitis; Translations: [Cystitis, unspecified without hematuria] 08-17-2024 Episodic Past or Other Problems Problem Classification Problem Date Documented Da te Episodic/Chronic Disorders of teeth and jaw (3 sources) Dental caries; Translations: [Dental caries, unspecified] Onset: 01-01-2021 01-01-2021 Episodic E Codes: Fall (1 source) Fall on same level, unspecified, initial encounter; Translations: [FALL SAME LEVEL UNSPECIFIED INITIAL] Onset: 09-25-2021 Episodic Epilepsy; convulsions (2 sources) Seizure disorder Onset: 03-17-2022 08-24-2024 Episodic Other aftercare (1 source) Other terminal clerk (current) drug therapy; Translations: [OTH CORRECTION CURRENT [...] Results Test Name Value Interpretation Reference Range [facility] 09-30-2024 Anion gap [Moles/Vol] 12 mmol/L Normal 6-16 [facility] Comment on above: Performed By: #### [id number] #### [facility] [address] [place] [address] BUN/Creat Ratio 13 No Units Normal 10-20 [facility] Comment on above: Performed By: #### 2 [id number] #### [facility] [address] [place] [address] Calcium [Mass/Vol] 8.7 mg/dL Low 8.9-11.1 [facility] Comment on above: Performed By: #### 2 [id number] #### [facility] [address] [place] [address] Chloride [Moles/Vol] 111 mmol/L Normal 101-111 [facility] Comment on above: Performed By: #### 2 [id number] #### [facility] [address] [place] [address] CO2 [Moles/Vol] 22 mmol/L Normal 21-31 [facility] Comment on above: Performed By: #### 2 [id number] #### [facility] [address] [place] [address] Creatinine [Mass/Vol] 1.5 mg/dL High 0.5-1.3 [facility] Comment on above: Performed By: #### 2 [id number] #### [facility] [address] [place] [address] Glucose [Mass/Vol] 91 mg/dL Normal 55-199 [facility] Comment on above: Performed By: #### 2 [id number] #### [facility] [address] [place] [address] Potassium [Moles/Vol] 4.2 mmol/L Normal 3.5-5.3 [facility] Comment on above: Performed By: #### 2 [id number] #### [facility] [address] [place] [address] Sodium [Moles/Vol] 141 mmol/L Normal 135-145 [facility] Comment on above: Performed By: #### 2 [id number] #### [facility] [address] [place] [address] Urea nitrogen [Mass/Vol] 19 mg/dL Normal 5-21 [facility] Comment on above: Performed By: #### 2 [id number] #### [facility] [address] [place] [address] Hct & Hgbon 09-30-2024 Hematocrit (Bld) [Volume fraction] 33.6 % Low 37.7-49.0 [facility] Comment on above: Performed By: #### 1 [id number] #### [facility] [address] [place] [address] Hemoglobin (Bld) [Mass/Vol] 11.4 g/dL Low 13.5-17.5 [facility] Comment on above: Performed By: #### 1 [id number] #### [facility] [address] [place] [address] Inpatient Clinical Summaryon 09-30-2024 Inpatient Clinical Summary Inpatient Clinical Summary [address] [address] Clinical Summary Person Information: Name: ALETHEA LEI Age: 54 Years : 1970 Sex: Male PCP: GO FOSTER DO Marital Status: Single Race: White Ethnicity: Non- or Language: Japanese Visit Id: Visit Reason: URINARY RETENTION Speciality: Acuity: Enc Type: Outpatient in a Bed Med Service: Surgery Arrival: 09/29/2024 07:41:31 Discharge: Dispo Type: Address: [address] [id number] Provider Notes: Diagnosis: 2:S/P TURP; 3:Severe intellectual disabilities; 4:HTN (hypertension); 5:HLD (hyperlipidemia); 6:Chronic kidney disease stage 3; 7:Seizure disorder; 8:Hypothyroidism; 9:Tuberous sclerosis; 10:On deep vein thrombosis (DVT) prophylaxis Problems Active Depression Autistic disorder OCD (obsessive compulsive disorder) Hypothyroidism (09/25/2021) Recurrent falls Seizure disorder (03/17/2022) Chronic kidney disease stage 3 (05/27/2022) Acute kidney injury (08/17/2024) Smoking Status: Functional Status: Sensory Deficits: History of Falls: Mobility Assistance Prior to Admission: ADLs: Complete assist Current Level of Assistance for Self-Care/Mobility: Cognitive Status: Allergies pertussis vaccines Measurements: Height: Weight: 84.8 kg Blood Pressure: 122 mmHg / 72 mmHg BMI: Procedures TURP - Transurethral resection of prostate (09/29/2024) Immunizations No Immunizations Documented This Visit Final Med List: amlodipine (amLODIPine 10 mg Tab) 1 Tablets By Mouth every day. atorvastatin (atorvastatin 40 mg Tab) 1 Tablets By Mouth at bedtime. benztropine (benztropine 1 mg Tab) 1 Tablets By Mouth 3 times a day. calcium-vitamin D (Oyster Shell Calcium with Vitamin D 500 mg-200 intl units oral tablet) 1 Tablets By Mouth 2 times a day. clonidine (cloNIDine 0.2 mg Tab) 1 Tablets By Mouth 3 times a day. haloperidol (haloperidol 5 mg Tab) 2 Tablets By Mouth once a day (in the evening). Refills: 0. haloperidol (haloperidol 5 mg Tab) 3 Tablets By Mouth 2 times a day. Refills: 0. levetiracetam (levetiracetam 500 mg Tab) 1 Tablets By Mouth 2 times a day. levothyroxine (levothyroxine 137 mcg (0.137 mg) Tab) 1 Tablets By Mouth every day. multivitamin (Daily Feli oral tablet) 1 Tablets By Mouth every day. nebivolol (Nebivolol 5 mg oral tablet) 1 Tablets By Mouth every day. oxcarbazepine (oxcarbazepine 600 mg Tab) 1 Tablets By Mouth 2 times a day. paroxetine (paroxetine 40 mg Tab) 1.5 Tablets By Mouth at bedtime. senna (Senna-Time 8.6 mg oral tablet) 1 Tablets By Mouth once a day (at bedtime). tamsulosin (Flomax 0.4 mg Cap) 1 Capsules By Mouth every day. Refills: 0. Care Team Members: Attending Physician: HERBER GAGNON MD Consulting Physician: Chacha DIAZ Referring Physician: HERBER GAGNON MD Follow up: With: Address: When: HERBER GAGNON Comments: 1 month With: Address: When: GO FOSTER [facility] [place] [address] Business (1) Type Location Start [facility]ish [facility] Office Visit [facility] [place] 10/12/2024 10:00 AM 10/12/2024 10:15 AM Confirmed Patient Education Information: Transurethral Resection of the Prostate; Acute Urinary Retention, Male, [id number]; Acute Urinary Retention, Male, [id number] Normal [facility] Inpatient Patient Summaryon 09-30-2024 Inpatient Patient Summary Inpatient Patient Summary [place] [id number] Patient Discharge Instructions PERSON INFORMATION Name: ALETHEA LEI Date of : 1970 Current Date: 09/30/2024 16:19:13 PHYSICIANS Admitting Physician: HERBER GAGNON MD Primary Care Physician: GO FOSTER DO PCP Comment: Discharge Diagnosis: 2:S/P TURP; 3:Severe intellectual disabilities; 4:HTN (hypertension); 5:HLD (hyperlipidemia); 6:Chronic kidney disease stage 3; 7:Seizure disorder; 8:Hypothyroidism; 9:Tuberous sclerosis; 10:On deep vein thrombosis (DVT) prophylaxis Condition at Discharge: Stable ALETHEA LEI has been given the following list of follow-up instructions, prescriptions, and patient education materials: PATIENT FOLLOW-UP INFORMATION Diet: Regular Discharge Activity: Resume normal activities in 24 hours, Expect mild pain, Expect minimal amount of drainage and/or bleeding, Activity as tolerated Discharge Restrictions: No driving for 24 hrs, Do not operate machinery or tools, Do not make important decisions for 24 hours, Do not drink alcoholic beverages for 24 hours Wound Care Instructions: Remove Your Dressing In Days Call Your Doctor For: Temperature above 101.5 degrees, Redness, swelling, or pus at operative site, Severe pain at the operative site, Persistent vomiting IF UNABLE TO CONTACT YOUR PHYSICIAN AND YOU FEEL IT IS AN EMERGENCY, GO TO THE NEAREST EMERGENCY ROOM OR CALL 911 Home Treatment: Devices/Equipment: Special Services: Additional Instructions: Hydrate w/ at least 2L/day Pain control w/tylenol F/U in 1 month w/ PVR prior Flomax for 1 month No heavy lifting for 2 weeks Blood in urine, burning expected for up to 6 weeks Double timed voiding every 3-4 hrs to ensure complete emptying of bladde Primary Care Physician to provide the following pending test results: None Follow up: With: Address: When: HERBER GAGNON Comments: 1 month With: Address: When: [place] [address] [place]umu (1) In the event that this physician does not participate in your insurance network, please consult with your insurance company to find a nearby participating provider. Type Location Start [facility] Office Visit [facility] [place] 10/12/2024 10:00 AM 10/12/2024 10:15 AM Confirmed Comment: QUIQUE Perez GUY, have received the attached patient education materials/instructio ns and have verbalized understanding: Patient Signature Date Clinican/Nurse Signature Date HERE ARE THE MEDICATION CHANGES THAT OCCURRED DURING YOUR HOSPITAL STAY New Medications Printed Prescriptions tamsulosin (Flomax 0.4 mg Cap) 1 Capsules By Mouth every day. Refills: 0. Last Dose: Next Dose: Medications to Continue Taking That Have Changed Printed Prescriptions START: haloperidol (haloperidol 5 mg Tab) 2 Tablets By Mouth once a day (in the evening). Refills: 0. Last Dose: Next Dose: START: haloperidol (haloperidol 5 mg Tab) 3 Tablets By Mouth 2 times a day. Refills: 0. Last Dose: Next Dose: STOP: haloperidol (haloperidol 5 mg Tab) 2 Tablets By Mouth once a day (in the evening). STOP: haloperidol (haloperidol 5 mg Tab) 1 Tablets By Mouth 3 times a day. Other Medications START: paroxetine (paroxetine 40 mg Tab) 1.5 Tablets By Mouth at bedtime. Last Dose: Next Dose: STOP: paroxetine (paroxetine 40 mg Tab) 1 Tablets By Mouth 2 times a day. Medications to Continue with No Changes Other Medications amlodipine (amLODIPine 10 mg Tab) 1 Tablets By Mouth every day. Last Dose: Next Dose: atorvastatin (atorvastatin 40 mg Tab) 1 Tablets By Mouth at bedtime. Last Dose: Next Dose: benztropine (benztropine 1 mg Tab) 1 Tablets By Mouth 3 times a day. Last Dose: Next Dose: calcium-vitamin D (Oyster Shell Calcium with Vitamin D 500 mg-200 intl units oral tablet) 1 Tablets By Mouth 2 times a day. Last Dose: Next Dose: clonidine (cloNIDine 0.2 mg Tab) 1 Tablets By Mouth 3 times a day. Last Dose: Next Dose: levetiracetam (levetiracetam 500 mg Tab) 1 Tablets By Mouth 2 times a day. Last Dose: Next Dose: levothyroxine (levothyroxine 137 mcg (0.137 mg) Tab) 1 Tablets By Mouth every day. Last Dose: Next Dose: multivitamin (Daily Feli oral tablet) 1 Tablets By Mouth every day. Last Dose: _ (more content not included)... Normal [facility] Inpatient Patient Summary Inpatient Patient Summary ALETHEA LEI :1970 Visit Date:09/29/2024 Inpatient Discharge Instructions Your Care Team Admitting Physician - HERBER GAGNON MD Consulting Physician - GRISELDA KENNEDYChacha Referring Physician - HERBER GAGNON MD Reason for Your Visit URINARY RETENTION Your Diagnosis BPH with urinary obstruction S/P TURP Severe intellectual disabilities HTN (hypertension) HLD (hyperlipidemia) Chronic kidney disease stage 3 Seizure disorder Hypothyroidism Tuberous sclerosis On deep vein thrombosis (DVT) prophylaxis This Is Your Medications List amlodipine (amLODIPine 10 mg Tab) atorvastatin (atorvastatin 40 mg Tab) benztropine (benztropine 1 mg Tab) calcium-vitamin D (Oyster Shell Calcium with Vitamin D 500 mg-200 intl units oral tablet) clonidine (cloNIDine 0.2 mg Tab) haloperidol (haloperidol 5 mg Tab) haloperidol (haloperidol 5 mg Tab) levetiracetam (levetiracetam 500 mg Tab) levothyroxine (levothyroxine 137 mcg (0.137 mg) Tab) multivitamin (Daily Feli oral tablet) nebivolol (Nebivolol 5 mg oral tablet) oxcarbazepine (oxcarbazepine 600 mg Tab) paroxetine (paroxetine 40 mg Tab) senna (Senna-Time 8.6 mg oral tablet) tamsulosin (Flomax 0.4 mg Cap) Procedure History TURP - Transurethral resection of prostate (09/29/2024), Ankle fracture, Ankle fracture, Open reduction and internal fixation of fracture. Discharge Vitals Temperature (Oral) 36.5 ???C Heart Rate (Monitored) 62 Respiratory Rate 18 Blood Pressure 122/72 Weight 84.8 kg What to do next Instructions From Your Doctor Event Name Event Result Discharge Activity Resume normal activities in 24 hours, Expect mild pain, Expect minimal amount of drainage and/or bleeding, Activity as tolerated Discharge Restrictions No driving for 24 hrs, Do not operate machinery or tools, Do not make important decisions for 24 hours, Do not drink alcoholic beverages for 24 hours Discharge Diet(s) Regular Call Your Doctor For Temperature above 101.5 degrees, Redness, swelling, or pus at operative site, Severe pain at the operative site, Persistent vomiting Pending Diagnostic Test Results None Discharge Instructions Hydrate w/ at least 2L/dayPain control w/tylenolF/U in 1 month w/ PVR priorFlomax for 1 monthNo heavy lifting for 2 weeksBlood in urine, burning expected for up to 6 weeksDouble timed voiding every 3-4 hrs to ensure complete emptying of bladde Previously Scheduled Follow-Up Appointments Thursday 10:00 AM EDT With: HERBER GAGNON MD Where: [facility] [address] [place] [address]- New Follow Up Appointments after Discharge Follow Up with HERBER GAGNON When: Comments: 1 month Follow Up with GO FOSTER When: In 0 days Where: [address] [place] [address]- Business (1) Medications What How Much When Instructions Next Dose New tamsulosin (Flomax 0.4 mg Cap) 1 Capsules By Mouth Every day Printed Prescription Changed haloperidol (haloperidol 5 mg Tab) 3 Tablets By Mouth 2 times a day Changed haloperidol (haloperidol 5 mg Tab) 2 Tablets By Mouth Once a day (in the evening) Changed paroxetine (paroxetine 40 mg Tab) 1.5 Tablets By Mouth At bedtime Unchanged amlodipine (amLODIPine 10 mg Tab) 1 Tablets By Mouth Every day Unchanged atorvastatin (atorvastatin 40 mg Tab) 1 Tablets By Mouth At bedtime Unchanged benztropine (benztropine 1 mg Tab) 1 Tablets By Mouth 3 times a day Unchanged calcium-vitamin D (Oyster Shell Calcium with Vitamin D 500 mg-200 intl units oral tablet) 1 Tablets By Mouth 2 times a day Unchanged clonidine (cloNIDine 0.2 mg Tab) 1 Tablets By Mouth 3 times a day Unchanged levetiracetam (levetiracetam 500 mg Tab) 1 Tablets By Mouth 2 times a day Unchanged levothyroxine (levothyroxine 137 mcg (0.137 mg) Tab) 1 Tablets By Mouth Every day Unchanged multivitamin (Daily Feli oral tablet) 1 Tablets By Mouth Every day Unchanged nebivolol (Nebivolol 5 mg oral tablet) 1 Tablets By Mouth Every day Unchanged oxcarbazepine (oxcarbazepine 600 mg Tab) 1 Tablets By Mouth 2 times a day Unchanged senna (Senna-Time 8.6 mg oral tablet) 1 Tablets By Mouth Once a day (at bedtime) Test Results CBC BMP HGB: 11.4 gm/dL Low (09/30/24 06:44:00) Glucose Lvl: 91 mg/dL (09/30/24 06:44:00) Hct: 33.6 % Low (09/30/24 06:44:00) BUN: 19 mg/dL (09/30/24 06:44:00) Creatinine: 1.5 mg/dL High (09/30/24 06:44:00) BUN/Creat Ratio: 13 (09/30/24 06:44:00) Sodium Lvl: 141 mmol/L (09/30/24 06:44:00) Potassium Lvl: 4.2 mmol/L (09/30/24 06:44:00) Chloride: 111 mmol/L (09/30/24 06:44:00) CO2: 22 mmol/L (09/30/24 06:44:00) AGAP: 12 mEq/L (09/30/24 06:44:00) Calcium Lvl: 8.7 mg/dL Low (09/30/24 06:44:00) Allergies pertussis vaccines Problems Ongoing (more content not included)... Normal [facility] Interdisciplinary Note - Karthik e Manageron 09-30-2024 Interdisciplinary Note - Sucker Machine Operator Interdisciplinary Note - Sucker Machine Operator CRM to room 302 Patient is awake and alert this Am. Patient states to CRM I want to go see my friend at [place] . Patient is from [facility] and will return at [facility] with transport patient, call [phone] ext [phone] to set up transport. PCP, DME and insurance confirmed with prior CRM. No [place] form completed, Patient is unable to sign but copy provided. Patient does not have family present in room at this time. CRM will call them later to update. Patient came in with urinary retention and had a TURP on 09/29. Patient has a Martini intact. Patient is assigned to Dr Henson and hospitalist Chacha STEELE. Patient will DC back to [facility] and they will need called for transport. Patient was provided CRM contact, white board updated. CRM following Possible DC today [facility] Comment on above: Result Comment: Elec tronically Signed By: Rocío Page\.br\Date and Time Signed: 09/30/24 08:27 EDT Main OR Intraoperative Recor don 09-30-2024 Main OR Intraoperative Record Main OR Intraoperative Record IntraOp Document Type FT Summary Primary Physician: HERBER GAGNON MD Finalized Date/Time: 09/30/24 15:06:18 Pt. Name: ALETHEA LEI/Sex: 1970 Male Med Rec #: [id number] Physician: HERBER GAGNON MD Financial #: [id number] Pt. Type: O Room/Bed: N302/01 Admit/Disch: 09/29/24 07:41:31 - Institution: Case Times FT Entry 1 Patient Times In Room 09/29/24 11:34:00 Out Room 09/29/24 12:38:00 Procedure Times Start 09/29/24 11:52:00 Stop 09/29/24 12:30:00 Anesthesia Times Start 09/29/24 11:34:00 Stop 09/29/24 12:38:00 Last Modified By: Michelle Gonzalez RN 09/29/24 12:39:34 Case Attendance FT Entry 1 Entry 2 Entry 3 Case Attendee Jordan LOPEZ, Petra GAGNON MD, Anny RN, Luz Maria CRAVEN Role Performed DUPLICATE MAKER Surgeon - Primary Production Truck Driver - Primary Time In 09/29/24 11:34:00 09/29/24 11:50:00 09/29/24 11:34:00 Time Out 09/29/24 12:38:00 09/29/24 12:30:00 09/29/24 11:40:00 Procedure CYSTOSCOPY TURP(.) CYSTOSCOPY TURP(.) CYSTOSCOPY TURP(.) Comments DR. OLVERA SUPERVISING Last Modified By: Carlos ATKINSON, Michelle Gnozalez RN, Michelle Gonzalez RN, Michelle Redman 09/29/24 12:46:13 09/29/24 12:55:58 09/29/24 12:46:13 Entry 4 Entry 5 Case Attendee Rehana Coelho RN, Michelle Redman Role Performed Scrub - Primary Production Truck Driver - Relief Time In 09/29/24 11:34:00 09/29/24 11:40:00 Time Out 09/29/24 12:38:00 09/29/24 12:38:00 Procedure CYSTOSCOPY TURP(.) CYSTOSCOPY TURP(.) Comments Last Modified By: Carlos ATKINSON, Michelle Gonzalez RN, Michelle Redman 09/29/24 12:46:13 09/29/24 12:46:13 Perioperative Protocols FT Pre-Care Text: Implements protective measures prior to operative or invasive procedure, confirms identity before the operative or invasive procedure, verifies operative procedure, surgical site, and laterality Entry 1 Procedure(s) CYSTOSCOPY TURP(.) Patient Identity Birthday, ID Band Verified (select at Check, Patient least 2): Participation Consents / H and P Anesthesia Consent, Operative Site N/A Verified H&P, Surgery/Procedure Marking Verified Consent Surgical Site Yes Laterality Verified n/a Verified Procedure Verified Yes Correct Patient Yes Position Verified Availability Equipment, Medication Prep Dry n/a Verified (If Applicable) PreOp Antibiotic Yes Time Out Petra Ortega CRNA, Given Participants ALLY ACKERMAN, Carlos CRAVEN RN, Laquita Marcus Sydney A Time Out Complete 09/29/24 11:50:00 Outcomes Met? Yes Last Modified By: Michelle Gonzalez RN 09/29/24 12:48:48 Post-Care Text: The patient is free from signs and symptoms of injury caused by extraneous objects Allergy Information FT Pre-Care Text: Verifies allergies Entry 1 Allergies Reviewed? Yes Allergies Reviewed Parent With Outcomes Met? Yes Last Modified By: Michelle Gonzalez RN 09/29/24 12:48:22 Post-Care Text: The patient received appropriate medication(s) safely administered during the perioperative period Surgical Procedures FT Entry 1 Procedure Description Procedure CYSTOSCOPY TURP Modifiers . Surgeon Description CYSTOSCOPY, TURP Primary Procedure Yes Primary Surgeon HERBER GAGNON MD Start 09/29/24 11:52:00 Stop 09/29/24 12:30:00 Anesthesia Type General Surgical Service Urology Wound Class 2 - Clean-Contaminated Last Modified By: Michelle Gonzalez RN 09/29/24 12:49:35 General Case Data FT Pre-Care Text: Classifies surgical wound, implements aseptic technique, initiates traffic control Entry 1 Case Information OR OR 7 FT Case Level Level 3 Wound Class 2 - Clean-Contaminated Specialty Anesthesia Preop Diagnosis URINARY RETENTION Postop Same As Preop Yes Postop Diagnosis URINARY RETENTION Outcomes Met? Yes Last Modified By: Michelle Gonzalez RN 09/29/24 12:49:06 Post-Care Text: The patient is free from signs and symptoms of infection Skin Assessment (Pre Procedure) FT Pre-Care Text: Implements protective measures to prevent skin/ tissue injury due to thermal or mechanical sources Evaluates for signs and symptoms of physical injury to skin and tissue Entry 1 Skin Integrity Intact, [place], Warm, & Skin Abnormality No Dry Outcomes Met? Yes Last Modified By: Michelle Gonzalez RN 09/29/24 12:49:44 Post-Care Text: The patient is free from signs and symptoms of injury caused by extraneous objects Patient Positioning FT Pre-Care Text: Identifies physical alterations that require additional precautions for procedure-specific positioning, verifies presence of prosthetics or corrective devices, positions the patient, evaluates the patient for signs and symptoms of injury as a result of positioning Entry 1 Procedure CYSTOSCOPY TURP(.) Body Position Low Lithotomy Feet Uncrossed? Yes Left Arm Position Extended on Padded Arm Board Right Arm Position Extended on Padded Arm Left Leg Position Secured in Stirrup Board Right Leg Position Secured in Stirrup Positioning Device (more content not included)... Normal [facility] eGFRon 09-30-2024 eGFR 54 mL/min/1.73 m2 Low >=59 [facility] Comment on above: Performed By: #### 1 [id number] #### [facility] [address] [place] [address] Interdisciplinary Note - Karthik e Manageron 09-29-2024 Interdisciplinary Note - Sucker Machine Operator Interdisciplinary Note - Sucker Machine Operator Patient resting bed with eyes closed. Mom at bedside and answered all questions for check writer. Patient is from [facility] and [place] [facility] with transport patient, call [phone] ext [phone] to set up transport. PCP, DME and insurance confirmed. Denies any dc needs. White board updated. [facility] does not use [employer]. Faxed patient updates and aware patient may dc tomorrow. Normal [facility] Comment on above: Result Comment: Elec tronically Signed By: Graciela Latham\.br\Date and Time Signed: 09/29/24 16:53 EDT Main OR Intraoperative Recor don 09-29-2024 Main OR Intraoperative Record Main OR Intraoperative Record IntraOp Document Type FT Summary Primary Physician: HERBER GAGNON MD Finalized Date/Time: 09/29/24 13:03:56 Pt. Name: ALETHEA LEI/Sex: 1970 Male Med Rec #: [id number] Physician: HERBER GAGNON MD Financial #: [id number] Pt. Type: A Room/Bed: Admit/Disch: 09/29/24 07:41:31 - Institution: Case Times FT Entry 1 Patient Times In Room 09/29/24 11:34:00 Out Room 09/29/24 12:38:00 Procedure Times Start 09/29/24 11:52:00 Stop 09/29/24 12:30:00 Anesthesia Times Start 09/29/24 11:34:00 Stop 09/29/24 12:38:00 Last Modified By: Michelle Gonzalez RN 09/29/24 12:39:34 Case Attendance FT Entry 1 Entry 2 Entry 3 Case Attendee Jordan LOPEZ, Petra GAGNON MD, Anny RN, Luz Maria CRAVEN Role Performed DUPLICATE MAKER Surgeon - Primary Production Truck Driver - Primary Time In 09/29/24 11:34:00 09/29/24 11:50:00 09/29/24 11:34:00 Time Out 09/29/24 12:38:00 09/29/24 12:30:00 09/29/24 11:40:00 Procedure CYSTOSCOPY TURP(.) CYSTOSCOPY TURP(.) CYSTOSCOPY TURP(.) Comments DR. OLVERA SUPERVISING Last Modified By: Carlos ATKINSON, Michelle Gonzalez RN, Michelle Gonzalez RN, Michelle Redman 09/29/24 12:46:13 09/29/24 12:55:58 09/29/24 12:46:13 Entry 4 Entry 5 Case Attendee Rehana Coelho RN, Amy J Role Performed Scrub - Primary Production Truck Driver - Relief Time In 09/29/24 11:34:00 09/29/24 11:40:00 Time Out 09/29/24 12:38:00 09/29/24 12:38:00 Procedure CYSTOSCOPY TURP(.) CYSTOSCOPY TURP(.) Comments Last Modified By: Carlos ATKINSON, Michelle Gonzalez RN, Michelle Redman 09/29/24 12:46:13 09/29/24 12:46:13 Perioperative Protocols FT Pre-Care Text: Implements protective measures prior to operative or invasive procedure, confirms identity before the operative or invasive procedure, verifies operative procedure, surgical site, and laterality Entry 1 Procedure(s) CYSTOSCOPY TURP(.) Patient Identity Birthday, ID Band Verified (select at Check, Patient least 2): Participation Consents / H and P Anesthesia Consent, Operative Site N/A Verified H&P, Surgery/Procedure Marking Verified Consent Surgical Site Yes Laterality Verified n/a Verified Procedure Verified Yes Correct Patient Yes Position Verified Availability Equipment, Medication Prep Dry n/a Verified (If Applicable) PreOp Antibiotic Yes Time Out Petra Ortega CRNA, Given Participants ALLY ACKERMAN, Carlos CRAVEN RN, Laquita Marcus Sydney A Time Out Complete 09/29/24 11:50:00 Outcomes Met? Yes Last Modified By: Michelle Gonzalez RN 09/29/24 12:48:48 Post-Care Text: The patient is free from signs and symptoms of injury caused by extraneous objects Allergy Information FT Pre-Care Text: Verifies allergies Entry 1 Allergies Reviewed? Yes Allergies Reviewed Parent With Outcomes Met? Yes Last Modified By: Michelle Gonzalez RN 09/29/24 12:48:22 Post-Care Text: The patient received appropriate medication(s) safely administered during the perioperative period Surgical Procedures FT Entry 1 Procedure Description Procedure CYSTOSCOPY TURP Modifiers . Surgeon Description CYSTOSCOPY, TURP Primary Procedure Yes Primary Surgeon ALLY ACKERMAN, HERBER Start 09/29/24 11:52:00 Stop 09/29/24 12:30:00 Anesthesia Type General Surgical Service Urology Wound Class 2 - Clean-Contaminated Last Modified By: Michelle Gonzalez RN 09/29/24 12:49:35 General Case Data FT Pre-Care Text: Classifies surgical wound, implements aseptic technique, initiates traffic control Entry 1 Case Information OR OR 7 FT Case Level Level 3 Wound Class 2 - Clean-Contaminated Specialty Anesthesia Preop Diagnosis URINARY RETENTION Postop Same As Preop Yes Postop Diagnosis URINARY RETENTION Outcomes Met? Yes Last Modified By: Michelle Gonzalez RN 09/29/24 12:49:06 Post-Care Text: The patient is free from signs and symptoms of infection Skin Assessment (Pre Procedure) FT Pre-Care Text: Implements protective measures to prevent skin/ tissue injury due to thermal or mechanical sources Evaluates for signs and symptoms of physical injury to skin and tissue Entry 1 Skin Integrity Intact, [place], Warm, & Skin Abnormality No Dry Outcomes Met? Yes Last Modified By: Michelle Gonzalez RN 09/29/24 12:49:44 Post-Care Text: The patient is free from signs and symptoms of injury caused by extraneous objects Patient Positioning FT Pre-Care Text: Identifies physical alterations that require additional precautions for procedure-specific positioning, verifies presence of prosthetics or corrective devices, positions the patient, evaluates the patient for signs and symptoms of injury as a result of positioning Entry 1 Procedure CYSTOSCOPY TURP(.) Body Position Low Lithotomy Feet Uncrossed? Yes Left Arm Position Extended on Padded Arm Board Right Arm Position Extended on Padded Arm Left Leg Position Secured in Stirrup Board Right Leg Position Secured in Stirrup Positioning Device (more content not included)... Normal [facility] Main OR PACU I Recordon Main OR PACU I Record Main OR PACU I Record PACU Phase I Document Type FT Summary Primary Physician: HERBER GAGNON MD Finalized Date/Time: 09/29/24 14:44:44 Pt. Name: TRACYBRIAALETHEA/Sex: 1970 Male Med Rec #: [id number] Physician: HERBER GAGNON MD Financial #: [id number] Pt. Type: O Room/Bed: [place] [address] Admit/Disch: 09/29/24 07:41:31 - Institution: Case Times PACU I FT Pre-Care Text: Identifies barriers to communication and implements measures to provide psychological support Develops individualized plan of care, and ensures continuity of care Maintains patient's dignity and privacy, and maintains patient confidentiality Identifies and reports philosophical, cultural, and spiritual beliefs and values Identifies individual values and wishes concerning care Implements aseptic technique, and administers prescribed antibiotic therapy and immunizing agents as ordered Evaluates postoperative tissue perfusion Implements thermoregulation measures, and monitors body temperature Evaluates postoperative respiratory status Evaluates postoperative cardiac status Evaluates postoperative neurological status Assesses pain control, collaborated in initiating patient-controlled analgesia and implements alternative methods of pain control Verifies allergies, administers prescribed medications and solutions, evaluates response to medications Entry 1 In PACU I 09/29/24 12:41:00 Discharge from PACU 09/29/24 13:15:00 I Outcomes Met? Yes Last Modified By: Jacqueline Phillips I 09/29/24 14:44:30 Post-Care Text: The patient demonstrates knowledge of the expected response to the operative or invasive procedure The patient's care is consistent with the individualized perioperative plan of care The patient's right to privacy is maintained The patient's value system, lifestyle, ethnicity, and culture are considered, respected, and incorporated into the perioperative plan of care The patient participates in decisions affecting his or her perioperative plan of care The patient is free from signs and symptoms of infection The patient has wound/tissue perfusion consistent with or improved from baseline levels established preoperatively The patient is at or returning to normothermia at the conclusion of the immediate postoperative period The patient's respiratory function is consistent with or improved from baseline levels established preoperatively The patient's cardiovascular status is consistent with or improved from baseline levels established preoperatively The patient's cardiovascular status is consistent with or improved from baseline levels established preoperatively The patient demonstrates and/or reports adequate pain control throughout the perioperative period The patient received appropriate medication(s), safely administered during the perioperative period Acuity Level PACU I FT Entry 1 Start Time 09/29/24 12:41:00 Stop Time 09/29/24 13:15:00 Acuity Level Acuity Level I Last Modified By: Jacqueline Phillips I 09/29/24 14:44:39 Finalized By: Jacqueline Phillips I Document Signatures Signed By: Jacqueline Phillips I 09/29/24 14:44 [facility] Operative Reporton 5 Operative Report Operative Report Patient: ALETHEA LEI Age: 54 years Sex: Male : 1970 Associated Diagnoses: None Author: HERBER GAGNON MD Procedure SURGEON: Herber Gagnon MD PREOPERATIVE DIAGNOSIS: BPH with LUTS POSTOPERATIVE DIAGNOSIS: Same PROCEDURE: Cystoscopy, transurethral resection of prostate- cpt [id number] FINDINGS: Bilobar hyperplasia of the prostate resected to create wide open with UroLift clips suctioned out ANESTHESIA: General INTRAVENOUS FLUIDS: See anesthesia records ESTIMATED BLOOD LOSS: 10cc TUBES AND DRAINS: 24 Lao three-way Martini catheter with 30 cc in balloon SPECIMENS: Prostate chips COMPLICATIONS: None INDICATIONS FOR PROCEDURE: Patient is a 54-year-old male with BPH with LUTS who was noted to have retention of 1 L. Patient has developmental delay and I discussed with mom that retention is likely secondary to BPH and we will proceed with a TURP to clear any bladder outlet obstruction. Thus, consent was obtained from his mom and H&P was reviewed, informed consent was obtained, patient understood risk, benefits, alternatives of the procedure and wished to proceed. OPERATIVE DETAIL: Patient was brought to the operative suite placed on continuous pulse oximetry and cardiac monitoring anesthesia. IV antibiotics including 2 g of Ancef was administered. He was then placed in a dorsolithotomy position and prepped and draped in normal sterile fashion. Timeout was performed confirming patient, procedure, side, all in the room agreed. We began by dilating the urethra. we sequentially dilated the ureteral orifice with Kaitlin dilators up to a 30 Lao. We then went in with the Storz resectoscope where we visualized the ureteral orifices and the verumontanum. Noting boundaries we began resection of the median lobe down to the bladder capsule. We then directed our attention to the left lateral lobe and again we dissected down to the bladder capsule. We repeated the maneuver for the right lateral lobe. Hemostasis was then achieved. We made sure to not go past the verumontanum. Chips were then evacuated out using the The Vetted Net evacuator. Hemostasis was persistent. Ureteral orifices were intact verumontanum was intact. A 24 Lao three-way Martini catheter was then placed at the conclusion of the procedure with initiation of continuous bladder irrigation. This concluded the procedure. Patient was then awakened anesthesia and transferred to PACU in stable condition. PLAN: Admission overnight. Will remove catheter in a.m. for voiding trial Normal [facility] Comment on above: Result Comment: Elec tronically Signed By: ALLY ACKERMAN, HERBER\.farhat\Date and Time Signed: 09/29/24 16:36 EDT CBC w/ Auto Diffon 5 Basophil Absolute 0.0 E9/L Normal 0.0-0.2 [facility] Comment on above: Performed By: #### 2 [id number] #### [facility] [address] [place] [address] Basophils/100 WBC (Bld) 0.5 % Normal 0.0-2.0 [facility] Comment on above: Performed By: #### 2 [id number] #### [facility] [address] [place] [address] Eos Absolute 0.3 E9/L Normal 0.0-0.5 [facility] Comment on above: Performed By: #### 2 [id number] #### [facility] [address] [place] [address] Eosinophils/100 WBC (Bld) 3.1 % Normal 0.0-8.0 [facility] Comment on above: Performed By: #### 2 [id number] #### [facility] [address] [place] [address] Erythrocyte distribution width (RBC) [Ratio] 13.6 % Normal 10.9-14.2 [facility] Comment on above: Performed By: #### [id number] #### [facility] [address] [place] [address] Hematocrit (Bld) [Volume fraction] 35.0 % Low 37.7-49.0 [facility] Comment on above: Performed By: #### 2 [id number] #### [facility] [address] [place] [address] Hemoglobin (Bld) [Mass/Vol] 12.1 g/dL Low 13.5-17.5 [facility] [facility] Comment on above: Performed By: #### 2 [id number] #### [facility] [address] [place] [address] Lymph Absolute 1.8 E9/L Normal 1.0-4.0 [facility] Comment on above: Performed By: #### 2 [id number] #### [facility] [address] [place] [address] Lymphocytes/100 WBC (Bld) 21.0 % Normal 14.0-50.0 [facility] Comment on above: Performed By: #### 2 [id number] #### [facility] [address] [place] [address] MCH (RBC) [Entitic mass] 34.5 pg High 27.0-34.0 [facility] Comment on above: Performed By: #### 2 [id number] #### [facility] [address] [place] [address] MCHC (RBC) [Mass/Vol] 34.6 g/dL Normal 31.4-36.0 [facility] Comment on above: Performed By: #### 2 [id number] #### [facility] [address] [place] [address] MCV (RBC) [Entitic vol] 99.8 fL Normal 80.0-100.0 [facility] Comment on above: Performed By: #### 2 [id number] #### [facility] [address] [place] [address] Bibb Absolute 0.9 E9/L Normal 0.2-1.0 [facility] Comment on above: Performed By: #### 2 [id number] #### [facility] [address] [place] [address] Monocytes/100 WBC (Bld) 10.9 % Normal 4.0-14.0 [facility] Comment on above: Performed By: #### 2 [id number] #### [facility] [address] [place] [address] Neutro Absolute 5.5 E9/L Normal 2.0-7.5 [facility] Comment on above: Performed By: #### 2 [id number] #### [facility] [address] [place] [address] Neutro Auto 64.5 % Normal 36.0-75.0 [facility] Comment on above: Performed By: #### 2 [id number] #### [facility] [address] [place] [address] Platelet 205.0 E9/L Normal 150.0-500.0 [facility] Comment on above: Result Comment: Celia pheral smear review performed. Performed By: #### 2 [id number] #### [facility] [address] [place] [address] Platelet mean volume (Bld) [Entitic vol] 8.8 fL Normal 6.4-10.8 [facility] Comment on above: Result Comment: Celia pheral smear review performed. Performed By: #### 2 [id number] #### [facility] [address] [place] [address] RBC 3.5 E12/L Low 4.3-5.9 [facility] Comment on above: Performed By: #### 2 [id number] #### [facility] [address] [place] [address] WBC 8.5 E9/L Normal 4.0-11.0 [facility] Comment on above: Performed By: #### 2 [id number] #### [facility] [address] [place] [address] Urology Office/Clinic Noteon 09-08-2024 Urology Office/Clinic Note Urology Office/Clinic Note Chief Complaint pt here for urnary retention HPI Staff New Pt. Pt is here today due to urinary retention ZAIRE 08/17/24 [facility] pt has folley cath. 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 Review of Systems PHQ Score Initial Depression Screen Score: 0 SCORE no fever, chills, malaise, myalgia. no rash/lesions. no chest pain, palpitations, or SOB. no abdominal pain, nausea, vomiting. 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 Pt resides at [facility] ([phone]) and has a history of MRDD and tuberosclerosis. His POA is his mother Marlin ([phone] or [phone]). Pt present today with transporter. Unable to obtain consent as patient does have paperwork with him deeming him incompetent to sign medical paperwork/consent. 1. Urinary retention (R33.9: Retention of urine, unspecified) 08/14/24 cx - >100k mixed skin contaminants 08/17/24 cx - 50k mixed skin contaminants 08/16/24 Pt presented to [facility] ER for altered mental status and positive urine culture (unable to find). K+ was also 6.5 in ER as well as elevated BUN (50) and Cr (2.42). Pt was started in IV Rocephin and treated for high K+ and transferred to [facility] for admission and nephrology consult. 08/17/24 ZAIRE - urinary bladder moderately distended with a volume of 726ml with slight wall thickening, bilateral jets are visualized. Bladder scan showed >900ml, Martini catheter placed with significant difficulties, 1200ml urine drained. 08/24/24 - BUN 25, Cr 1.45, GFR 50, K+ 5.0 Unable to obtain any history from patient or transport/caregiver today. Transport did note that patient has severe constipation. Briefly discussed bowel regimen and daily BMs before being able to remove catheter. Also briefly discussed next steps to assess retention further including cystoscopy. I do not feel that patient would be able to accurately complete Urodynamics due to baseline mental status. Discussed case with patient's POA after patient out of office. She reports that when patient is with her he never gets the urge to urinate and she has to tell him to use the restroom every few hours. Marlin would like to proceed with cystoscopy under anesthesia due to patient's baseline mental status. Will discuss with Dr. Henson and keep catheter in place until cysto. Pt's transporter did say that [facility] does not change catheters. The risks and benefits for cystoscopy have been discussed. The risks include bleeding, infection, and irritation of the bladder and urinary channel, among others. The patient, after being informed of procedural details and after questions have been answered, wishes to proceed. Full informed consent has been obtained. Will order Mac anesthesia. -Schedule cystoscopy with Dr. Henson -Martini catheter change tentatively scheduled for 2 weeks in [place] office (closer to patient) if unable to schedule cystoscopy in next 2-3 weeks -Aggressive bowel management -F/U pending cystoscopy Ordered: Body Mass Index (BMI) documented 3008F Current tobacco non-user 1036F Depression Screening Negative 3352F E&M of New Patient High 60-74 Min 05444 Influenza immunization status assessed 1030F Medication list documented in medical record 1159F Most recent diastolic blood pressure <80 mm Hg 3078F Review of all meds by a prescribing practitioner or clinical pharmacist documented in EHR 1160F Systolic BP 130-139 mm Hg (Most Recent) 3075F Urology Procedure Order 2. Bilateral renal cysts (N28.1: Cyst of kidney, acquired) 08/17/24 ZAIRE - small renal cysts are present at the midpole on both sides. The R measures 15 x 12 x 14mm and the L measures 18 x 15 x 13mm. There is no perinephric fluid. Ordered: E&M of New Patient High 60-74 Min 10287 Follow-up With When Contact Information ALLY ACKERMAN, JEOVANY CRAVEN Additional Instructions: schedule cystoscopy Patient Education Acute Urinary Retention, Male Total time spent reviewing previous notes/results/shoe stainer al documents, preparing the chart, conducting the encounter with the patient and family, ordering tests/medications, and documenting the encounter was 60 minutes. Problem List/Past Medical History Ongoing Acute kidney injury Autistic disorder Chronic kidney disease stage 3 Depression Hypoth (more content not included)... Normal [facility] Comment on above: Result Comment: Elec tronically Signed By: Lily LEMUS, Ashanti Redman\.br\Date and Time Signed: 09/08/24 09:31 EDT Albumin Levelon 08-19-2024 Albumin [Mass/Vol] 3.5 g/dL Normal 3.5-5.7 [facility] Comment on above: Result Comment: PERF ORMED BY: [address] [place] [address] PATHOLOGIST RESCUE INSTRUCTOR KARLA FAIR M.D. Performed By: #### B MP, CBC #### [facility] [address] Basic Metabolic Panelon 07-25 Anion gap [Moles/Vol] 11.5 mmol/L Normal 6.0-15.0 [facility] Comment on above: Performed By: #### M G, ALB, CBC, BMP #### [facility] [address] [place] [id number] [facility] Calcium [Mass/Vol] 7.7 mg/dL Low 8.6-10.3 [facility] Comment on above: Performed By: #### M G, ALB, CBC, BMP #### [facility] [address] [place] [address] [place] Chloride [Moles/Vol] 107 mmol/L Normal 98-107 [facility] Comment on above: Performed By: #### M G, ALB, CBC, BMP #### [facility] [address] CO2 [Moles/Vol] 27.3 mmol/L Normal 21.0-31.0 [facility] Comment on above: Performed By: #### M G, ALB, CBC, BMP #### [facility] [address] Creatinine [Mass/Vol] 1.47 mg/dL High 0.70-1.30 [facility] Comment on above: Performed By: #### M G, ALB, CBC, BMP #### [facility] [address] Creatinine Clr Calc Pharmacy 55.19 Normal [facility] Comment on above: Performed By: #### M G, ALB, CBC, BMP #### [facility] [address] [place] [address] [place] GFR/1.73 sq M.predicted MDRD (S/P/Bld) [Vol rate/Area] 55.634 mL/min/{1.73_m2} Normal [facility] Comment on above: Performed By: #### M G, ALB, CBC, BMP #### [facility] [address] Glucose [Mass/Vol] 112 mg/dL High 70-100 [facility] Comment on above: Result Comment: [place] Glucose Reference Range is dependent on time and content of last meal. Glucose of more than 200 mg/dL in a nonstressed, ambulatory subject supports the diagnosis of Diabetes Mellitus. ADA recommended reference range Performed By: #### M G, ALB, CBC, BMP #### [facility] [address] Potassium [Moles/Vol] 3.8 mmol/L Normal 3.5-5.1 [facility] Comment on above: Performed By: #### M G, ALB, CBC, BMP #### [address] Sodium [Moles/Vol] 142 mmol/L Normal 136-145 [facility] Comment on above: Performed By: #### M G, ALB, CBC, BMP #### [address] Urea nitrogen [Mass/Vol] 20 mg/dL Normal 7-25 [facility] Comment on above: Performed By: #### M G, ALB, CBC, BMP #### [address] Complete Blood Count Auto Di ffon 08-19-2024 Basophils (Bld) [#/Vol] 0.0 10*3/uL Normal 0.0-0.2 [facility] Comment on above: Order Comment: only got the mint in micro. Result Comment: PERF ORMED BY: [place] [address] PATHOLOGIST RESCUE INSTRUCTOR KARLA FAIR M.D. Performed By: #### B MP, CBC #### [address] Basophils/100 WBC (Bld) 0.3 % Normal . [facility] Comment on above: Order Comment: only got the mint in micro. Performed By: #### B MP, CBC #### [address] Eosinophils (Bld) [#/Vol] 0.2 10*3/uL Normal 0.0-0.45 [facility] Comment on above: Order Comment: only got the mint in micro. Performed By: #### B MP, CBC #### [address] Eosinophils/100 WBC (Bld) 3.1 % Normal . [facility] Comment on above: Order Comment: only got the mint in micro. Performed By: #### B MP, CBC #### [address] Erythrocyte distribution width (RBC) [Ratio] 13.3 % Normal 12.0-14.8 [facility] Comment on above: Order Comment: only got the mint in micro. Performed By: #### B MP, CBC #### [address] Hematocrit (Bld) [Volume fraction] 32.0 % Low 38.8-50.0 [facility] Comment on above: Order Comment: only got the mint in micro. Performed By: #### B MP, CBC #### [address] Hemoglobin (Bld) [Mass/Vol] 10.9 g/dL Low 13.0-17.0 [facility] Comment on above: Order Comment: only got the mint in micro. Performed By: #### B MP, CBC #### [address] Lymphocytes (Bld) [#/Vol] 1.4 10*3/uL Normal 1.00-4.8 [facility] Comment on above: Order Comment: only got the mint in micro. Performed By: #### B MP, CBC #### [address] Lymphocytes/100 WBC (Bld) 19.0 % Normal . [facility] Comment on above: Order Comment: only got the mint in micro. Performed By: #### B MP, CBC #### [address] MCH (RBC) [Entitic mass] 33.7 pg Normal 27.5-35.2 [facility] Comment on above: Order Comment: only got the mint in micro. Performed By: #### B MP, CBC #### [address] MCV (RBC) [Entitic vol] 98.9 fL Normal 83.5-101 [facility] Comment on above: Order Comment: only got the mint in micro. Performed By: #### B MP, CBC #### [address] Mean Corpuscular HGB Conc 34.0 g/dL Normal 32.5-35.6 [facility] Comment on above: Order Comment: only got the mint in micro. Performed By: #### B MP, CBC #### [address] Monocytes (Bld) [#/Vol] 0.9 10*3/uL High 0.0-0.8 [facility] Comment on above: Order Comment: only got the mint in micro. Performed By: #### B MP, CBC #### [address] Monocytes/100 WBC (Bld) 11.9 % Normal . [facility] Comment on above: Order Comment: only got the mint in micro. Performed By: #### B MP, CBC #### [address] Neutrophils (Bld) [#/Vol] 4.8 10*3/uL Normal 1.8-7.7 [facility] Comment on above: Order Comment: only got the mint in micro. Performed By: #### B MP, CBC #### [address] Neutrophils/100 WBC (Bld) 65.7 % Normal . [facility] Comment on above: Order Comment: only got the mint in micro. Performed By: #### B MP, CBC #### [address] NRBC% 0.2 /100{WBC} Normal 0-0.5 [facility] Comment on above: Order Comment: only got the mint in micro. Performed By: #### B MP, CBC #### [address] Platelet mean volume (Bld) [Entitic vol] 8.0 fL Normal 6.6-10.1 [facility] Comment on above: Order Comment: only got the mint in micro. Performed By: #### B MP, CBC #### [address] Platelets (Bld) [#/Vol] 165 10*3/uL Normal 150-450 [facility] Comment on above: Order Comment: only got the mint in micro. Performed By: #### B MP, CBC #### [address] RBC (Bld) [#/Vol] 3.23 10*6/uL Low 3.90-5.60 [facility] Comment on above: Order Comment: only got the mint in micro. Performed By: #### B MP, CBC #### [address] WBC (Bld) [#/Vol] 7.3 10*3/uL Normal 4.1-10.5 [facility] Comment on above: Order Comment: only got the mint in micro. Performed By: #### B MP, CBC #### [address] White Blood Count 7.3 [CFU]/mL Normal 4.1-10.5 [facility] Comment on above: Order Comment: only got the mint in micro. Performed By: #### B MP, CBC #### [address] Magnesiumon 08-19-2024 Magnesium [Mass/Vol] 2.3 mg/dL Normal 1.9-2.7 [facility] Comment on above: Performed By: #### M G, ALB, CBC, BMP #### [address] Basic Metabolic Panelon 07-25 Anion gap [Moles/Vol] 12.0 mmol/L Normal 6.0-15.0 [facility] Comment on above: Performed By: #### B MP, CBC #### [address] Calcium [Mass/Vol] 7.9 mg/dL Low 8.6-10.3 [facility] Comment on above: Performed By: #### B MP, CBC #### [address] Chloride [Moles/Vol] 103 mmol/L Normal 98-107 [facility] Comment on above: Performed By: #### B MP, CBC #### [address] CO2 [Moles/Vol] 30.5 mmol/L Normal 21.0-31.0 [facility] Comment on above: Performed By: #### B MP, CBC #### [address] Creatinine [Mass/Vol] 1.59 mg/dL High 0.70-1.30 [facility] Comment on above: Performed By: #### B MP, CBC #### [address] Creatinine Clr Calc Pharmacy 52.79 Normal [facility] Comment on above: Result Comment: PERF ORMED BY: [place] [address] PATHOLOGIST RESCUE INSTRUCTOR KARLA FAIR M.D. Performed By: #### B MP, CBC #### [address] GFR/1.73 sq M.predicted MDRD (S/P/Bld) [Vol rate/Area] 50.634 mL/min/{1.73_m2} Normal [facility] Comment on above: Performed By: #### B MP, CBC #### [address] Glucose [Mass/Vol] 132 mg/dL High 70-100 [facility] Comment on above: Result Comment: [place] Glucose Reference Range is dependent on time and content of last meal. Glucose of more than 200 mg/dL in a nonstressed, ambulatory subject supports the diagnosis of Diabetes Mellitus. ADA recommended reference range Performed By: #### B MP, CBC #### [address] Potassium [Moles/Vol] 3.5 mmol/L Normal 3.5-5.1 [facility] Comment on above: Performed By: #### B MP, CBC #### [address] Sodium [Moles/Vol] 142 mmol/L Normal 136-145 [facility] Comment on above: Performed By: #### B MP, CBC #### [address] Urea nitrogen [Mass/Vol] 25 mg/dL Normal 7-25 [facility] Comment on above: Performed By: #### B MP, CBC #### [address] Complete Blood Count Auto Di ffon 08-18-2024 Basophils (Bld) [#/Vol] 0.0 10*3/uL Normal 0.0-0.2 [facility] Comment on above: Result Comment: PERF ORMED BY: [place] [address] PATHOLOGIST RESCUE INSTRUCTOR KARLA FAIR M.D. Performed By: #### B MP, CBC #### [address] Basophils/100 WBC (Bld) 0.5 % Normal . [facility] Comment on above: Performed By: #### B MP, CBC #### [address] Eosinophils (Bld) [#/Vol] 0.1 10*3/uL Normal 0.0-0.45 [facility] Comment on above: Performed By: #### B MP, CBC #### [address] Eosinophils/100 WBC (Bld) 1.2 % Normal . [facility] Comment on above: Performed By: #### B MP, CBC #### [address] Erythrocyte distribution width (RBC) [Ratio] 13.6 % Normal 12.0-14.8 [facility] Comment on above: Performed By: #### B MP, CBC #### [address] Hematocrit (Bld) [Volume fraction] 32.6 % Low 38.8-50.0 [facility] Comment on above: Performed By: #### B MP, CBC #### [address] Hemoglobin (Bld) [Mass/Vol] 11.1 g/dL Low 13.0-17.0 [facility] Comment on above: Performed By: #### B MP, CBC #### [address] Lymphocytes (Bld) [#/Vol] 1.4 10*3/uL Normal 1.00-4.8 [facility] Comment on above: Performed By: #### B MP, CBC #### [address] Lymphocytes/100 WBC (Bld) 20.8 % Normal . [facility] Comment on above: Performed By: #### B MP, CBC #### [address] MCH (RBC) [Entitic mass] 33.6 pg Normal 27.5-35.2 [facility] Comment on above: Performed By: #### B MP, CBC #### [address] MCV (RBC) [Entitic vol] 98.3 fL Normal 83.5-101 [facility] Comment on above: Performed By: #### B MP, CBC #### [address] Mean Corpuscular HGB Conc 34.2 g/dL Normal 32.5-35.6 [facility] Comment on above: Performed By: #### B MP, CBC #### [address] Monocytes (Bld) [#/Vol] 1.0 10*3/uL High 0.0-0.8 [facility] Comment on above: Performed By: #### B MP, CBC #### [facility] [address] [place] [address] [place] Monocytes/100 WBC (Bld) 14.6 % Normal . [facility] Comment on above: Performed By: #### B MP, CBC #### [facility] [address] [place] [address] [place] Neutrophils (Bld) [#/Vol] 4.2 10*3/uL Normal 1.8-7.7 [facility] Comment on above: Performed By: #### B MP, CBC #### [facility] [address] [place] [address] [place] Neutrophils/100 WBC (Bld) 62.9 % Normal . [facility] Comment on above: Performed By: #### B MP, CBC #### [facility] [address] NRBC% 0.2 /100{WBC} Normal 0-0.5 [facility] Comment on above: Performed By: #### B MP, CBC #### [facility] [address] [place] [address] [place] Platelet mean volume (Bld) [Entitic vol] 7.9 fL Normal 6.6-10.1 [facility] Comment on above: Performed By: #### B MP, CBC #### [facility] [address] [place] [address] [place] Platelets (Bld) [#/Vol] 186 10*3/uL Normal 150-450 [facility] Comment on above: Performed By: #### B MP, CBC #### [facility] [address] [place] [id number] [place] RBC (Bld) [#/Vol] 3.32 10*6/uL Low 3.90-5.60 [facility] Comment on above: Performed By: #### B MP, CBC #### [facility] [address] [place] [id number] [place] WBC (Bld) [#/Vol] 6.7 10*3/uL Normal 4.1-10.5 [facility] Comment on above: Performed By: #### B MP, CBC #### [address] White Blood Count 6.7 [CFU]/mL Normal 4.1-10.5 [facility] Comment on above: Performed By: #### B MP, CBC #### [address] Magnesiumon 08-18-2024 Magnesium [Mass/Vol] 1.7 mg/dL Low 1.9-2.7 [facility] Comment on above: Result Comment: PERF ORMED BY: [place] [address] PATHOLOGIST RESCUE INSTRUCTOR KARLA FAIR M.D. Performed By: #### B MP, CBC #### [address] Basic Metabolic Panelon 07-25 Anion gap [Moles/Vol] 11.7 mmol/L Normal 6.0-15.0 [facility] Comment on above: Performed By: #### B MP #### [address] Calcium [Mass/Vol] 8.5 mg/dL Low 8.6-10.3 [facility] Comment on above: Performed By: #### B MP #### [place] [address] [place] Chloride [Moles/Vol] 106 mmol/L Normal 98-107 [facility] Comment on above: Performed By: #### B MP #### [address] CO2 [Moles/Vol] 24.1 mmol/L Normal 21.0-31.0 [facility] Comment on above: Performed By: #### B MP #### [address] Creatinine [Mass/Vol] 1.90 mg/dL High 0.70-1.30 [facility] Comment on above: Performed By: #### B MP #### [place] [address] [place] Creatinine Clr Calc Pharmacy 44.17 Normal [facility] Comment on above: Result Comment: PERF ORMED BY: [place] [address] PATHOLOGIST RESCUE INSTRUCTOR KARLA FAIR M.D. Performed By: #### B MP #### [place] [address] [place] GFR/1.73 sq M.predicted MDRD (S/P/Bld) [Vol rate/Area] 40.890 mL/min/{1.73_m2} Normal [facility] Comment on above: Performed By: #### B MP #### [address] Glucose [Mass/Vol] 181 mg/dL High 70-100 [facility] Comment on above: Result Comment: [place] Glucose Reference Range is dependent on time and content of last meal. Glucose of more than 200 mg/dL in a nonstressed, ambulatory subject supports the diagnosis of Diabetes Mellitus. ADA recommended reference range Performed By: #### B MP #### [address] Potassium [Moles/Vol] 4.8 mmol/L Normal 3.5-5.1 [facility] Comment on above: Performed By: #### B MP #### [place] [place] [address] [place] Sodium [Moles/Vol] 137 mmol/L Normal 136-145 [facility] Comment on above: Performed By: #### B MP #### [place] [address] [place] Urea nitrogen [Mass/Vol] 34 mg/dL High 7-25 [facility] Comment on above: Performed By: #### B MP #### [address] Anion gap [Moles/Vol] 12.3 mmol/L Normal 6.0-15.0 [facility] Comment on above: Performed By: #### B MP, CBC #### [address] Calcium [Mass/Vol] 9.2 mg/dL Normal 8.6-10.3 [facility] Comment on above: Performed By: #### B MP, CBC #### [place] [address] [place] Chloride [Moles/Vol] 108 mmol/L High 98-107 [facility] Comment on above: Performed By: #### B MP, CBC #### [address] CO2 [Moles/Vol] 21.7 mmol/L Normal 21.0-31.0 [facility] Comment on above: Performed By: #### B MP, CBC #### [address] Creatinine [Mass/Vol] 2.16 mg/dL High 0.70-1.30 [facility] Comment on above: Performed By: #### B MP, CBC #### [place] [address] [place] Creatinine Clr Calc Pharmacy 38.86 Normal [facility] Comment on above: Result Comment: PERF ORMED BY: [place] [address] PATHOLOGIST RESCUE INSTRUCTOR KARLA FAIR M.D. Performed By: #### B MP, CBC #### [address] GFR/1.73 sq M.predicted MDRD (S/P/Bld) [Vol rate/Area] 35.057 mL/min/{1.73_m2} Normal [facility] Comment on above: Performed By: #### B MP, CBC #### [address] Glucose [Mass/Vol] 122 mg/dL High 70-100 [facility] Comment on above: Result Comment: [place] Glucose Reference Range is dependent on time and content of last meal. Glucose of more than 200 mg/dL in a nonstressed, ambulatory subject supports the diagnosis of Diabetes Mellitus. ADA recommended reference range Performed By: #### B MP, CBC #### [facility] [address] Potassium [Moles/Vol] 6.0 mmol/L High 3.5-5.1 [facility] Comment on above: Performed By: #### B MP, CBC #### [facility] [address] [place] [address] [place] Sodium [Moles/Vol] 136 mmol/L Normal 136-145 [facility] Comment on above: Performed By: #### B MP, CBC #### [facility] [address] Urea nitrogen [Mass/Vol] 38 mg/dL High 7-25 [facility] Comment on above: Performed By: #### B MP, CBC #### [address] Anion gap [Moles/Vol] 15.5 mmol/L High 6.0-15.0 [facility] Comment on above: Performed By: #### B MP, CBC #### [address] Calcium [Mass/Vol] 8.9 mg/dL Normal 8.6-10.3 [facility] Comment on above: Result Comment: PERF ORMED BY: [place] [address] PATHOLOGIST RESCUE INSTRUCTOR KARLA FAIR M.D. Performed By: #### B MP, CBC #### [place] [address] [place] Chloride [Moles/Vol] 109 mmol/L High 98-107 [facility] Comment on above: Performed By: #### B MP, CBC #### [facility] [address] [place] [address] [place] CO2 [Moles/Vol] 16.9 mmol/L Low 21.0-31.0 [facility] Comment on above: Performed By: #### B MP, CBC #### [address] Creatinine [Mass/Vol] 2.20 mg/dL High 0.70-1.30 [facility] Comment on above: Performed By: #### B MP, CBC #### [place] [address] [place] GFR/1.73 sq M.predicted MDRD (S/P/Bld) [Vol rate/Area] 34.293 mL/min/{1.73_m2} Normal [facility] Comment on above: Performed By: #### B MP, CBC #### [address] Glucose [Mass/Vol] 130 mg/dL High 70-100 [facility] Comment on above: Result Comment: [place] Glucose Reference Range is dependent on time and content of last meal. Glucose of more than 200 mg/dL in a nonstressed, ambulatory subject supports the diagnosis of Diabetes Mellitus. ADA recommended reference range Performed By: #### B NIRALI, CBC #### [address] Potassium [Moles/Vol] 5.4 mmol/L High 3.5-5.1 [facility] Comment on above: Performed By: #### B NIRALI, CBC #### [address] Sodium [Moles/Vol] 136 mmol/L Normal 136-145 [facility] Comment on above: Performed By: #### B NIRALI, CBC #### [address] Urea nitrogen [Mass/Vol] 39 mg/dL High 7-25 [facility] Comment on above: Performed By: #### B NIRALI, CBC #### [address] Complete Blood Count Auto Di ffon 08-17-2024 Basophils (Bld) [#/Vol] 0.0 10*3/uL Normal 0.0-0.2 [facility] Comment on above: Result Comment: PERF ORMED BY: [place] [address] PATHOLOGIST RESCUE INSTRUCTOR KARLA FAIR M.D. Performed By: #### B MP, CBC #### [address] Basophils/100 WBC (Bld) 0.3 % Normal . [facility] Comment on above: Performed By: #### B MP, CBC #### [place] [address] [place] Eosinophils (Bld) [#/Vol] 0.0 10*3/uL Normal 0.0-0.45 [facility] Comment on above: Performed By: #### B MP, CBC #### [address] Eosinophils/100 WBC (Bld) 0.6 % Normal . [facility] Comment on above: Performed By: #### B MP, CBC #### [address] Erythrocyte distribution width (RBC) [Ratio] 13.7 % Normal 12.0-14.8 [facility] Comment on above: Performed By: #### B MP, CBC #### [address] Hematocrit (Bld) [Volume fraction] 34.4 % Low 38.8-50.0 [facility] Comment on above: Performed By: #### B MP, CBC #### [place] [address] [place] Hemoglobin (Bld) [Mass/Vol] 11.7 g/dL Low 13.0-17.0 [facility] Comment on above: Performed By: #### B MP, CBC #### [place] [address] [place] Lymphocytes (Bld) [#/Vol] 0.9 10*3/uL Low 1.00-4.8 [facility] Comment on above: Performed By: #### B MP, CBC #### [place] [address] [place] Lymphocytes/100 WBC (Bld) 10.5 % Normal . [facility] Comment on above: Performed By: #### B MP, CBC #### [address] MCH (RBC) [Entitic mass] 33.7 pg Normal 27.5-35.2 [facility] Comment on above: Performed By: #### B MP, CBC #### [address] MCV (RBC) [Entitic vol] 99.1 fL Normal 83.5-101 [facility] Comment on above: Performed By: #### B MP, CBC #### [address] Mean Corpuscular HGB Conc 34.0 g/dL Normal 32.5-35.6 [facility] Comment on above: Performed By: #### B MP, CBC #### [address] Monocytes (Bld) [#/Vol] 1.3 10*3/uL High 0.0-0.8 [facility] Comment on above: Performed By: #### B MP, CBC #### [address] Monocytes/100 WBC (Bld) 15.3 % Normal . [facility] Comment on above: Performed By: #### B MP, CBC #### [address] Neutrophils (Bld) [#/Vol] 6.0 10*3/uL Normal 1.8-7.7 [facility] Comment on above: Performed By: #### B MP, CBC #### [address] Neutrophils/100 WBC (Bld) 73.3 % Normal . [facility] Comment on above: Performed By: #### B MP, CBC #### [address] NRBC% 0.1 /100{WBC} Normal 0-0.5 [facility] Comment on above: Performed By: #### B MP, CBC #### [address] Platelet mean volume (Bld) [Entitic vol] 7.8 fL Normal 6.6-10.1 [facility] Comment on above: Performed By: #### B MP, CBC #### [address] Platelets (Bld) [#/Vol] 209 10*3/uL Normal 150-450 [facility] Comment on above: Performed By: #### B MP, CBC #### [address] RBC (Bld) [#/Vol] 3.47 10*6/uL Low 3.90-5.60 [facility] Comment on above: Performed By: #### B MP, CBC #### [address] WBC (Bld) [#/Vol] 8.2 10*3/uL Normal 4.1-10.5 [facility] Comment on above: Performed By: #### B MP, CBC #### [address] White Blood Count 8.2 [CFU]/mL Normal 4.1-10.5 [facility] Comment on above: Performed By: #### B MP, CBC #### [address] Basophils (Bld) [#/Vol] 0.0 10*3/uL Normal 0.0-0.2 [facility] Comment on above: Result Comment: PERF ORMED BY: [place] [address] PATHOLOGIST RESCUE INSTRUCTOR KARLA FAIR M.D. Performed By: #### B MP, CBC #### [address] Basophils/100 WBC (Bld) 0.4 % Normal . [facility] Comment on above: Performed By: #### B MP, CBC #### [address] Eosinophils (Bld) [#/Vol] 0.1 10*3/uL Normal 0.0-0.45 [facility] Comment on above: Performed By: #### B MP, CBC #### [place] [address] [place] Eosinophils/100 WBC (Bld) 1.7 % Normal . [facility] Comment on above: Performed By: #### B MP, CBC #### [address] Erythrocyte distribution width (RBC) [Ratio] 13.7 % Normal 12.0-14.8 [facility] Comment on above: Performed By: #### B MP, CBC #### [address] Hematocrit (Bld) [Volume fraction] 34.7 % Low 38.8-50.0 [facility] Comment on above: Performed By: #### B MP, CBC #### [address] Hemoglobin (Bld) [Mass/Vol] 11.7 g/dL Low 13.0-17.0 [facility] Comment on above: Performed By: #### B MP, CBC #### [address] Lymphocytes (Bld) [#/Vol] 1.0 10*3/uL Normal 1.00-4.8 [facility] Comment on above: Performed By: #### B MP, CBC #### [place] [address] [place] Lymphocytes/100 WBC (Bld) 14.4 % Normal . [facility] Comment on above: Performed By: #### B MP, CBC #### [address] MCH (RBC) [Entitic mass] 33.4 pg Normal 27.5-35.2 [facility] Comment on above: Performed By: #### B MP, CBC #### [facility] [address] MCV (RBC) [Entitic vol] 99.1 fL Normal 83.5-101 [facility] Comment on above: Performed By: #### B MP, CBC #### [facility] [address] Mean Corpuscular HGB Conc 33.7 g/dL Normal 32.5-35.6 [facility] Comment on above: Performed By: #### B MP, CBC #### [address] Monocytes (Bld) [#/Vol] 0.9 10*3/uL High 0.0-0.8 [facility] Comment on above: Performed By: #### B MP, CBC #### [address] Monocytes/100 WBC (Bld) 13.3 % Normal . [facility] Comment on above: Performed By: #### B MP, CBC #### [address] Neutrophils (Bld) [#/Vol] 4.9 10*3/uL Normal 1.8-7.7 [facility] Comment on above: Performed By: #### B MP, CBC #### [address] Neutrophils/100 WBC (Bld) 70.2 % Normal . [facility] Comment on above: Performed By: #### B MP, CBC #### [address] NRBC% 0.3 /100{WBC} Normal 0-0.5 [facility] Comment on above: Performed By: #### B MP, CBC #### [address] Platelet mean volume (Bld) [Entitic vol] 7.6 fL Normal 6.6-10.1 [facility] Comment on above: Performed By: #### B MP, CBC #### [address] Platelets (Bld) [#/Vol] 190 10*3/uL Normal 150-450 [facility] Comment on above: Performed By: #### B MP, CBC #### [address] RBC (Bld) [#/Vol] 3.51 10*6/uL Low 3.90-5.60 [facility] Comment on above: Performed By: #### B MP, CBC #### [address] WBC (Bld) [#/Vol] 7.0 10*3/uL Normal 4.1-10.5 [facility] Comment on above: Performed By: #### B MP, CBC #### [address] White Blood Count 7.0 [CFU]/mL Normal 4.1-10.5 [facility] Comment on above: Performed By: #### B MP, CBC #### [address] ECG 12 lead ECGon 08-17-2024 ECG 12 lead ECG [facility] Main [place] [address] [place] [address] Electrocardiograph Report Signed Patient: Alethea Lei MR#: [id number] : 1970 Acct:[id number] Age/Sex: 54 / M ADM Date: 08/17/24 Loc: Room: [address] [place] [address] Type: ADM IN Attending Dr: Ritu Cabrera MD Ordering Provider: aDljit Messina DO Date of Service: 08/17/24 ECG/ECG [...] change was found Confirmed by Baldomero Olson ([id number]) on 08/17/2024 11:11:16 AM Referred By: Electronically Signed By: Baldomero Olson Transcribed By: MUS Signed By Baldomero Olson MD 08/17/24 1111 Normal [facility] Partial Thromboplastin Timeo n 08-17-2024 aPTT Coag (Bld) [Time] 28.0 s Normal 25.1-36.5 [facility] Comment on above: Result Comment: A he matocrit value greater than 55% may lead to inaccurate results in coagulation testing. Patients having hematocrit values >55% require a special collection tube for coagulation studies. Please contact the laboratory at [phone] for redraw instructions. PERFORMED BY: [place] [address] PATHOLOGIST RESCUE INSTRUCTOR KARLA FAIR M.D. Performed By: #### P T, PTT #### [address] Prothrombin Time INRon 08-17 INR Coag (PPP) [Relative time] 1.3 {INR} Normal [facility] Comment on above: Result Comment: INR Therapeutic [...] Performed By: #### P T, PTT #### [facility] [address] [place] [address] PT Coag (PPP) [Time] 14.8 s High 9.0-12.9 [facility] Comment on above: Result Comment: A he matocrit value greater than 55% may lead to inaccurate results in coagulation testing. Patients having hematocrit values >55% require a special collection tube for coagulation studies. Please contact the laboratory at [phone] for redraw instructions. Performed By: #### P T, PTT #### [facility] [address] [place], [place] [id number] [facility] BIon 08-17-2024 US renal BI [facility] Main [place] [address] [place] [address] Ultrasound Report Signed Patient: Alethea Lei MR#: [id number] : 1970 Acct:[id number] Age/Sex: 54 / M ADM Date: 08/17/24 Loc: Room: [address] [place] [address] Type: DIS IN Attending Dr: Ritu Cabrera MD Ordering [...] Altamirano M.D. 08/17/2024 8:45 AM Dictation Location: [place] [address] Tech: Saskia Israel Transcribed By: WENDY 08/17/24 0845 Dictated By: Cheryl Altamirano MD 08/17/24 0841 Signed By: 08/17/24 0845 Normal [facility] Urine Cultureon 08-16-2024 Bacteria identified Cx Nom (U) 50,000 colonies/ml mixed bacterial skin contaminants 2 Days PERFORMED BY: [place] [phone] PATHOLOGIST RESCUE INSTRUCTOR KARLA FAIR M.D. Normal [facility] Comment on above: Performed By: #### C UU #### [address] Urine cultureOrdered By: Julio Cesar Dong on 08-16-2024 Bacteria identified Cx Nom (U) 2 Days [facility] Urine Cultureon 08-14-2024 Bacteria identified Cx Nom (U) >100,000 colonies/ml mixed bacterial skin contaminants 2 Days PERFORMED BY: [place] [address] PATHOLOGIST RESCUE INSTRUCTOR KARLA FAIR M.D. Normal [facility] Comment on above: Performed By: #### B MP, CBC #### [address] Urine cultureOrdered By: Devin Weaver on 08-14-2024 Bacteria identified Cx Nom (U) 2 Days [facility] T3 Freeon 08-21-2023 Free T3 [Mass/Vol] 1.8 pg/mL Low 2.0-4.4 [facility] Comment on above: Result Comment: Perf ormed at: [facility] [address] [id number] PhD Jarod Kumar Performed By: #### 2 [id number] #### [facility] [address] [place] [id number] 08-20-2023 HbA1c (Bld) [Mass fraction] 5.1 % Normal <=5.9 [facility] Comment on above: Performed By: #### 7 [id number] #### [facility] [address] [place] [address] CBC w/Indiceson 08-19-2023 Erythrocyte distribution width (RBC) [Ratio] 13.2 % Normal 10.9-14.2 [facility] Comment on above: Performed By: #### 2 [id number] #### [facility] [address] [place] [id number] Hematocrit (Bld) [Volume fraction] 39.3 % Normal 37.7-49.0 [facility] Comment on above: Performed By: #### 2 [id number] #### [facility] [address] [place] [address] Hemoglobin (Bld) [Mass/Vol] 13.0 g/dL Low 13.5-17.5 [facility] Comment on above: Performed By: #### 2 [id number] #### [facility] [address] [place] [address] MCH (RBC) [Entitic mass] 33.1 pg Normal 27.0-34.0 [facility] Comment on above: Performed By: #### 2 [id number] #### [facility] [address] [place] [address] MCHC (RBC) [Mass/Vol] 33.2 g/dL Normal 31.4-36.0 [facility] Comment on above: Performed By: #### 2 [id number] #### [facility] [address] [place] [address] MCV (RBC) [Entitic vol] 99.7 fL Normal 80.0-100.0 [facility] Comment on above: Performed By: #### 2 [id number] #### [facility] [address] [place] [address] Platelet mean volume (Bld) [Entitic vol] 8.9 fL Normal 6.4-10.8 [facility] Comment on above: Performed By: #### 2 [id number] #### [facility] [address] [place] [address] Platelets (Bld) [#/Vol] 156.0 E9/L Normal 150.0-500.0 [facility] Comment on above: Performed By: #### 2 [id number] #### [facility] [address] [place] [address] RBC (Bld) [#/Vol] 3.9 E12/L Low 4.3-5.9 [facility] Comment on above: Performed By: #### 2 [id number] #### [facility] [address] [place] [address] RBC size Nom (Bld) NORMAL Invalid Interpretation Code [facility] Comment on above: Performed By: #### 2 [id number] #### [facility] [address] [place] [address] WBC corrected for nucl RBC Auto (Bld) [#/Vol] 5.3 E9/L Normal 4.0-11.0 [facility] Comment on above: Performed By: #### 2 [id number] #### [facility] [address] [place] [address] CHEMISTRYOrdered By: SYSTEM SYSTEM on 08-19-2023 25-hydroxyvitamin [...] for this result was chemiluminescence using [employer] Hybritech PSA reagent. Protein [Mass/Vol] 6.9 [...] 08-19-2023 Albumin [Mass/Vol] 4.1 g/dL Normal 3.3-5.0 [facility] Comment on above: Performed By: #### 2 775761 #### [facility] [address] [place] [address] Albumin/Globulin (S) [Mass conc ratio] 1.5 Normal 1.1-2.2 [facility] Comment on above: Performed By: #### 2 960401 #### [facility] [address] [place] [address] ALP [Catalytic activity/Vol] 161 Int._Unit/L High 21-98 [facility] Comment on above: Performed By: #### 2 [id number] #### [facility] [address] [place] [address] ALT No additional P-5'-P [Catalytic activity/Vol] 30 Int._Unit/L Normal 6-46 [facility] Comment on above: Performed By: #### 2 677861 #### [facility] [address] [place] [address] Anion gap [Moles/Vol] 10 mmol/L Normal 6-16 [facility] Comment on above: Performed By: #### 2 598141 #### [facility] [address] [place] [address] AST [Catalytic activity/Vol] 21 Int._Unit/L Normal 5-43 [facility] Comment on above: Performed By: #### 2 915530 #### [facility] [address] [place] [address] Bilirubin [Mass/Vol] 0.4 mg/dL Normal 0.0-1.1 [facility] Comment on above: Performed By: #### 2 702371 #### [facility] [address] [place] [address] Calcium [Mass/Vol] 8.9 mg/dL Normal 8.9-11.1 [facility] Comment on above: Performed By: #### 2 [id number] #### [facility] [address] [place] [address] Chloride [Moles/Vol] 113 mmol/L High 101-111 [facility] Comment on above: Performed By: #### 2 938742 #### [facility] [address] [place] [address] CO2 [Moles/Vol] 24 mmol/L Normal 21-31 [facility] Comment on above: Performed By: #### 2 639579 #### [facility] [address] [place] [address] Creatinine [Mass/Vol] 1.6 mg/dL High 0.5-1.3 [facility] Comment on above: Performed By: #### 2 444112 #### [facility] [address] [place] [address] Globulin (S) [Mass/Vol] 2.8 g/dL Normal 1.4-4.0 [facility] Comment on above: Performed By: #### 2 [id number] #### [facility] [address] [place] [address] Glucose [Mass/Vol] 86 mg/dL Normal 55-199 [facility] Comment on above: Performed By: #### 2 543089 #### [facility] [address] [place] [address] Potassium [Moles/Vol] 4.8 mmol/L Normal 3.5-5.3 [facility] Comment on above: Performed By: #### 2 160741 #### [facility] [address] [place] [address] Protein [Mass/Vol] 6.9 g/dL Normal 6.0-7.8 [facility] Comment on above: Performed By: #### 2 [id number] #### [facility] [address] [place] [address] Sodium [Moles/Vol] 142 mmol/L Normal 135-145 [facility] Comment on above: Performed By: #### 2 134416 #### [facility] [address] [place] [address] Urea nitrogen [Mass/Vol] 30 mg/dL High 5-21 [facility] Comment on above: Performed By: #### 2 764767 #### [facility] [address] [place] [address] Urea nitrogen/Creatinine [Mass ratio] 19 No Units Normal 10-20 [facility] Comment on above: Performed By: #### 2 230969 #### [facility] [address] [place] [address] Free T4on 08-19-2023 Free T4 [Mass/Vol] 0.56 ng/dL Low 0.58-1.64 [facility] Comment on above: Performed By: #### 2 986152 #### [facility] [address] [place] [address] HEMATOLOGYOrdered By: SYSTEM SYSTEM on 08-19-2023 Erythrocyte [...] 08-19-2023 Cholesterol [Mass/Vol] 108 mg/dL Low 120-200 [facility] Comment on above: Performed By: #### 2 617931 #### [facility] [address] [place] [address] Cholesterol in HDL [Mass/Vol] 34 mg/dL Invalid Interpretation Code [facility] Comment on above: Result Comment: '>= 60 LOW RISK' '<= 40 HIGH RISK' Performed By: #### 2 583838 #### [facility] [address] [place] [address] Cholesterol in LDL [Mass/Vol] 59 mg/dL Normal <=129 [facility] Comment on above: Performed By: #### 2 152895 #### [facility] [address] [place] [address] Cholesterol in VLDL [Mass/Vol] 19 mg/dL Normal 7-40 [facility] Comment on above: Performed By: #### 2 399264 #### [facility] [address] [place] [address] Triglyceride [Mass/Vol] 94 mg/dL Normal <=149 [facility] Comment on above: Performed By: #### 2 183808 #### [facility] [address] [place] [address] PSA Screen, Totalon 08-19-19 24 Prostate specific Ag [Mass/Vol] 0.4 ng/mL Normal 0.1-3.5 [facility] Comment on above: Result Comment: The concentration of PSA determined by different manufacturers can vary due to differences in assay methods and reagent specificity. Values obtained from different assay methods cannot be used interchangeably. The methodology used for this result was chemiluminescence using [employer]'s Access Hybritech PSA reagent. Performed By: #### 1 [id number] #### [facility] [address] [place] [address] Physician Orderon 08-19-2023 Physician Order [id number] [id number] Normal [facility] TSHon 08-19-2023 TSH Qn 0.10 m[IU]/L Low 0.34-5.60 [facility] Comment on above: Performed By: #### 2 [id number] #### [facility] [address] [place] [address] Vitamin D 25 Hydroxyon 08-18 25-hydroxyvitamin D3 [Mass/Vol] 42.7 ng/mL Normal 30.0-100.0 [facility] Comment on above: Performed By: #### 5 [id number] #### [facility] [address] [place] [address] eGFRon 08-19-2023 eGFR 50 mL/min/1.73 m2 Low >=59 [facility] Comment on above: Order Comment: Order added by Discern Expert. Performed By: #### 1 [id number] #### [facility] [address] [place] [address] T3 Freeon 02-27-2023 Free T3 [Mass/Vol] 2.0 pg/mL Invalid Interpretation Code 2.0-4.4 [facility] Comment on above: Result Comment: Perf ormed at: [facility] [address] [id number] PhD Jarod Kumar Performed By: #### 2 617909, 5727960, 6745939, 39819867, 001536737, 6915595, 0173424, 7800293, 7185529, 5673381 ####[facility] [address] [place] [address] CBC w/Indiceson 02-25-2023 Erythrocyte distribution width (RBC) [Ratio] 13.2 % Normal 10.9-14.2 [facility] Comment on above: Performed By: #### 2 900724, 2766676, 0538425, 31919951, 897780973, 7671927, 9738115, 5515167, 8312144, 6030546 #### [facility] [address] [place] [address] Hematocrit (Bld) [Volume fraction] 40.6 % Normal 37.7-49.0 [facility] Comment on above: Performed By: #### 2 948273, 9986342, 7531495, 15062043, 857880643, 0990441, 8555928, 6363607, 2989003, 7695142 #### [facility] [address] [place] [address] Hemoglobin (Bld) [Mass/Vol] 13.4 g/dL Low 13.5-17.5 [facility] Comment on above: Performed By: #### 2 031232, 0042862, 1001858, 42127325, 423746045, 6980568, 1179018, 7844312, 1862781, 9315629 #### [facility] [address] [place] [address] MCH (RBC) [Entitic mass] 32.7 pg Normal 27.0-34.0 [facility] Comment on above: Performed By: #### 2 337293, 4409561, 1779945, 78899833, 743707979, 4766252, 0631872, 2368104, 5819352, 8770689 #### [facility] [address] [place] [address] MCHC (RBC) [Mass/Vol] 33.0 g/dL Normal 31.4-36.0 [facility] Comment on above: Performed By: #### 2 666270, 2412496, 1637663, 26774278, 614666170, 5739191, 4065068, 5385798, 4714594, 0120158 #### [facility] [address] [place] [address] MCV (RBC) [Entitic vol] 99.1 fL Normal 80.0-100.0 [facility] Comment on above: Performed By: #### 2 654167, 3895974, 6718700, 87638842, 471022355, 9183790, 6361203, 4635087, 3145973, 5854895 #### [facility] [address] [place] [address] Platelet mean volume (Bld) [Entitic vol] 9.6 fL Normal 6.4-10.8 [facility] Comment on above: Performed By: #### 2 825654, 4234019, 3052955, 91905040, 523027572, 8328560, 4179343, 8576486, 7155690, 4080501 #### [facility] [address] [place] [address] Platelets (Bld) [#/Vol] 170.0 E9/L Normal 150.0-500.0 [facility] Comment on above: Performed By: #### 2 791698, 9083010, 7698250, 83781585, 193527925, 7750265, 7733904, 5296259, 2941059, 5598270 #### [facility] [address] [place] [address] RBC (Bld) [#/Vol] 4.1 E12/L Low 4.3-5.9 [facility] Comment on above: Performed By: #### 2 034438, 2118240, 0994800, 69193602, 253815054, 5055102, 7975801, 7428458, 3341855, 0262488 #### [facility] [address] [place] [address] WBC corrected for nucl RBC Auto (Bld) [#/Vol] 4.4 E9/L Normal 4.0-11.0 [facility] Comment on above: Performed By: #### 2 533301, 3151218, 4095275, 85747196, 103963464, 2418948, 1672420, 8016519, 3418570, 9345741 #### [facility] [address] [place] [address] CHEMISTRYOrdered By: SYSTEM SYSTEM on 02-25-2023 Albumin [...] 02-25-2023 Albumin [Mass/Vol] 4.1 g/dL Normal 3.3-5.0 [facility] Comment on above: Performed By: #### 2 173322, 9771788, 4109189, 43349826, 981007723, 2066174, 4070985, 5785710, 9433277, 8679193 #### [facility] [address] [place] [address] Albumin/Globulin [Mass ratio] 1.4 {ratio} Normal 1.1-2.2 [facility] Comment on above: Performed By: #### 2 975931, 9077055, 3556360, 62008057, 784591755, 1620251, 5137130, 4743658, 5481902, 9078887 #### [facility] [address] [place] [address] Alk Phos 158 Int._Unit/L High 21-98 [facility] Comment on above: Performed By: #### 2 716796, 2948828, 9050598, 15836840, 583238924, 3085693, 3701998, 5070611, 7844294, 8665425 #### [facility] [address] [place] [address] ALT 32 Int._Unit/L Normal 6-46 [facility] Comment on above: Performed By: #### 2 086044, 1535495, 1997562, 84786365, 903859884, 0681587, 8614072, 7141868, 0890167, 9506366 #### [facility] [address] [place] [address] Anion gap [Moles/Vol] 12 mmol/L Normal 6-16 [facility] Comment on above: Performed By: #### 2 313159, 5678780, 7617059, 68841130, 878602280, 8320475, 4009559, 6306269, 9179155, 9617037 #### [facility] [address] [place] [address] AST 25 Int._Unit/L Normal 5-43 [facility] Comment on above: Performed By: #### 2 682400, 7638142, 0810492, 56060772, 648777354, 8786212, 9991020, 2343327, 7592442, 1901303 #### [facility] [address] [place] [address] Bili Total 0.3 mg/dL Normal 0.0-1.1 [facility] Comment on above: Performed By: #### 2 498480, 0944359, 5890254, 07112470, 918543488, 6009958, 8043712, 1463048, 7792399, 9231078 #### [facility] [address] [place] [address] BUN/Creat Ratio 17 No Units Normal 10-20 [facility] Comment on above: Performed By: #### 2 483925, 7918739, 4657608, 73275437, 095107021, 0960559, 7731246, 4919169, 8391617, 2057532 #### [facility] [address] [place] [address] Calcium [Mass/Vol] 8.9 mg/dL Normal 8.9-11.1 [facility] Comment on above: Performed By: #### 2 857566, 3186054, 1735431, 75330241, 324158949, 9928735, 1236612, 2621650, 0775105, 7754864 #### [facility] [address] [place] [address] Chloride [Moles/Vol] 113 mmol/L High 101-111 [facility] Comment on above: Performed By: #### 2 564902, 8431044, 3140865, 21892988, 730949592, 8635881, 3866824, 3052968, 3011782, 4124248 #### [facility] [address] [place] [address] CO2 [Moles/Vol] 22 mmol/L Normal 21-31 [facility] Comment on above: Performed By: #### 2 591934, 5034379, 7355759, 89766896, 104196607, 4443807, 6600794, 5504518, 4681404, 6686939 #### [facility] [address] [place] [address] Creatinine [Mass/Vol] 1.5 mg/dL High 0.5-1.3 [facility] Comment on above: Performed By: #### 2 512797, 1661024, 9618881, 90347346, 475133070, 0420640, 7635816, 4950505, 6220543, 2689883 #### [facility] [address] [place] [address] Globulin (S) [Mass/Vol] 2.9 g/dL Normal 1.4-4.0 [facility] Comment on above: Performed By: #### 2 372659, 8376724, 5733039, 69319166, 529640106, 9480082, 3677271, 2509655, 9901968, 6992004 #### [facility] [address] [place] [address] Glucose [Mass/Vol] 90 mg/dL Normal 55-199 [facility] Comment on above: Performed By: #### 2 283645, 4936928, 3297405, 32476640, 355254008, 4444143, 1044269, 7788653, 4467855, 7714810 #### [facility] [address] [place] [address] Potassium [Moles/Vol] 4.8 mmol/L Normal 3.5-5.3 [facility] Comment on above: Performed By: #### 2 503890, 8854301, 2502370, 29276260, 431907145, 4410417, 6183072, 2887441, 3199849, 2759943 #### [facility] [address] [place] [address] Protein [Mass/Vol] 7.0 g/dL Normal 6.0-7.8 [facility] Comment on above: Performed By: #### 2 286315, 2114124, 7247776, 08480109, 555801975, 2618406, 9609326, 8560723, 2891575, 4722636 #### [facility] [address] [place] [address] Sodium [Moles/Vol] 142 mmol/L Normal 135-145 [facility] Comment on above: Performed By: #### 2 196234, 8603718, 4379951, 91933764, 863629952, 2311425, 0219020, 5673900, 8475987, 2883840 #### [facility] [address] [place] [address] Urea nitrogen [Mass/Vol] 26 mg/dL High 5-21 [facility] Comment on above: Performed By: #### 2 438047, 6642734, 0172661, 06313454, 570737420, 1409484, 6233605, 4114256, 3604272, 7411546 #### [facility] [address] [place] [address] Free T4on 02-25-2023 Free T4 [Mass/Vol] 0.66 ng/dL Normal 0.58-1.64 [facility] Comment on above: Performed By: #### 2 407029, 2808334, 1418710, 48812389, 544074114, 0023594, 9314950, 8483179, 9443177, 2121393 #### [facility] [address] [place] [address] HEMATOLOGYOrdered By: Clarence Srivastava on 02-25-2023 Erythrocyte [...] Ironon 02-25-2023 Iron 130 microgram/dL Normal 35-153 [facility] Comment on above: Performed By: #### 2 462913, 3062376, 7634253, 87366792, 538023754, 2342809, 8057646, 3509506, 9305167, 9294507 #### [facility] [address] [place] [address] Lipid Panelon 02-25-2023 Cholesterol [Mass/Vol] 105 mg/dL Low 120-200 [facility] Comment on above: Performed By: #### 2 775722, 1763354, 9715102, 62899587, 228222610, 1740767, 4773595, 8219214, 5941743, 6037608 #### [facility] [address] [place] [address] Cholesterol in HDL [Mass/Vol] 40 mg/dL Invalid Interpretation Code [facility] Comment on above: Result Comment: '>= 60 LOW RISK' '<= 40 HIGH RISK' Performed By: #### 2 558621, 9673231, 1284620, 41119073, 811199400, 8573479, 3663552, 6191054, 2620067, 9608097 #### [facility] [address] [place] [address] Cholesterol in LDL [Mass/Vol] 54 mg/dL Normal <=129 [facility] Comment on above: Performed By: #### 2 223616, 5879959, 7152722, 92666778, 239207126, 1049035, 7196122, 7920977, 7941361, 6565120 #### [facility] [address] [place] [address] Cholesterol in VLDL [Mass/Vol] 16 mg/dL Normal 7-40 [facility] Comment on above: Performed By: #### 2 781088, 4168641, 7667431, 02614592, 785618287, 0172760, 3252023, 0486212, 0855579, 0666203 #### [facility] [address] [place] [address] Triglyceride [Mass/Vol] 81 mg/dL Normal <=149 [facility] Comment on above: Performed By: #### 2 288052, 2793089, 1956854, 56445254, 769959654, 9646615, 2097223, 0177908, 3569347, 4831855 #### [facility] [address] [place] [address] Physician Orderon 02-25-2023 Physician Order [id number] 5#1.00TIFF Normal [facility] TSHon 02-25-2023 TSH Qn 0.03 m[IU]/L Low 0.34-5.60 [facility] Comment on above: Performed By: #### 2 566082, 2419780, 3697419, 55542394, 972430143, 8803785, 3080090, 9430672, 4580727, 7505983 #### [facility] [address] [place] [address] Vit B12on 02-25-2023 Cobalamin (Vitamin B12) [Mass/Vol] 483 pg/mL Normal 50-1500 [facility] Comment on above: Performed By: #### 2 534331, 1465821, 2695684, 94721025, 776820940, 1669566, 5409653, 6724981, 2740908, 4949671 #### [facility] [address] [place] [address] Vitamin D 25 Hydroxyon 02-25 Vitamin D 25 Hydroxy 50.9 ng/mL Normal 30.0-100.0 [facility] Comment on above: Performed By: #### 2 361451, 3521042, 4460884, 71327227, 989074390, 9495809, 0782908, 8020562, 5145322, 9266308 ####[facility] [address] [place] [address] eGFRon 02-25-2023 eGFR 55 mL/min/1.73 m2 Low >=59 [facility] Comment on above: Order Comment: Order added by Discern Expert. Performed By: #### 2 632736, 6223302, 7250004, 00082822, 687201568, 5453345, 5484529, 2904308, 5453475, 9736619 #### [facility] [address] [place] [address] PSA Screen, Totalon 11-14-19 23 Prostate specific Ag [Mass/Vol] 0.5 ng/mL Normal 0.1-3.5 [facility] Comment on above: Result Comment: The concentration of PSA determined by different manufacturers can vary due to differences in assay methods and reagent specificity. Values obtained from different assay methods cannot be used interchangeably. The methodology used for this result was chemiluminescence using [employer]'s Access [employer]brite[employer] PSA reagent. Performed By: #### 1 [id number] ####[facility] [address] [place] [address] Physician Orderon 11-12-2022 Physician Order [id number] 7#1.00CD:127 Normal [facility] US KIDNEYS BLADDERon 023 US KIDNEYS [...] by: NORMA ROSS Date: 2022-05-27 08:52 Normal [facility] XR PELVIS 1_2 VIEWSon 2022 [...] JONAH MAJANO Date: 2022-04-14 08:21 Normal [facility] XR HIP RT 2 3V WO [...] NORMA BROWN Date: 2022-04-10 08:41 Normal [facility] Glucose Glucometer (BldC) [M ass/Vol]Ordered By: Nallely Parada on 03-12-2022 Glucose [Mass/Vol] 95 mg/dL [facility] Comment on above: Random Glucose Refer ence Range is dependent on time and content of last meal. Glucose of more than 200 mg/dL in a nonstressed, ambulatory subject supports the diagnosis of Diabetes Mellitus. CBC AUTO DIFFon 03-11-2022 BASO # 0.0 103/ul Normal 0.0-0.1 [facility] Comment on above: Performed By: #### C BC ####[facility] [address] [place] [id number]. Guille Mayo Basophils/100 WBC (Bld) 0.6 % Normal 0.2-2.0 [facility] Comment on above: Performed By: #### C BC ####[facility] [address] [place] [id number] Mayo EO # 0.2 103/ul Normal 0.0-0.7 [facility] Comment on above: Performed By: #### C BC ####[facility] [address] [place] [id number] Mayo Eosinophils/100 WBC (Bld) 2.8 % Normal 0.9-7.0 [facility] Comment on above: Performed By: #### C BC ####[facility] [address] [place] [address]Dr. Guille Mayo Erythrocyte distribution width (RBC) [Ratio] 12.6 % Normal 11.0-15.0 [facility] Comment on above: Performed By: #### C BC ####[facility] [address] [place], [place] [address]Dr. Guille Mayo Hematocrit (Bld) [Volume fraction] 40.4 % Critically low 42.0-54.0 [facility] Comment on above: Performed By: #### C BC ####[facility] [address] [place], [place] [address]Dr. Guille Mayo Hemoglobin (Bld) [Mass/Vol] 13.7 g/dL Critically low 14.0-18.0 [facility] Comment on above: Performed By: #### C BC ####[facility] [address] [place], [place] [address]Dr. Guille Mayo IG # 0.02 10e3/ul Normal 0.00-0.03 [facility] Comment on above: Performed By: #### C BC ####[facility] [address] [place], [place] [address]Dr. Guille Mayo IG % 0.4 % Normal 0.0-0.5 [facility] Comment on above: Performed By: #### C BC ####[facility] [address] [place], [place] [address]Dr. Guille Mayo LYMPH # 1.1 103/ul Critically low 1.2-3.8 [facility] Comment on above: Performed By: #### C BC ####[facility] [address] [place], [place] [address]Dr. Guille Mayo Lymphocytes/100 WBC (Bld) 20.8 % Normal 20.5-60.0 [facility] Comment on above: Performed By: #### C BC ####[facility] [address] [place], [place] [address]Dr. Kylahizzy Mayo MANUAL DIFF REQ NO Normal [facility] Comment on above: Performed By: #### C BC ####[facility] [address] [place] [address]Dr. Guille Gael MCH (RBC) [Entitic mass] 32.3 pg Normal 25.9-34.0 [facility] Comment on above: Performed By: #### C BC ####[facility] [address] [place] [address]Dr. Guille Gael MCHC (RBC) [Mass/Vol] 33.9 g/dL Normal 29.9-35.2 [facility] Comment on above: Performed By: #### C BC ####[facility] [address] [place] [address]Dr. Kylahizzy Mayo MCV (RBC) [Entitic vol] 95.3 fL Critically high 80.0-94.0 [facility] Comment on above: Performed By: #### C BC ####[facility] [address] [place] [address]Dr. Guille Mayo MONO # 0.4 103/ul Normal 0.3-0.8 [facility] Comment on above: Performed By: #### C BC ####[facility] [address] [place] [address]Dr. Guille Mayo Monocytes/100 WBC (Bld) 7.4 % Normal 1.7-12.0 [facility] Comment on above: Performed By: #### C BC ####[facility] [address] [place] [address]Dr. Guille Mayo NEUT # 3.7 103/ul Normal 1.4-6.5 [facility] Comment on above: Performed By: #### C BC ####[facility] [address] [place] [address]Dr. Guille Mayo Neutrophils/100 WBC (Bld) 68.0 % Normal 43.0-75.0 [facility] Comment on above: Performed By: #### C BC ####[facility] [address] [place], [place] [address]Dr. Guille Mayo Platelet mean volume (Bld) [Entitic vol] 10.4 fL Normal 9.5-13.5 [facility] Comment on above: Performed By: #### C BC ####[facility] [address] [place] [id number]. Guille Mayo PLT 133 103/ul Critically low 150-450 [facility] Comment on above: Performed By: #### C BC ####[facility] [address] [place] [id number]. Guille Mayo RBC 4.24 106/ul Critically low 4.70-6.10 [facility] Comment on above: Performed By: #### C BC ####[facility] [address] [place] [id number]. Guille Mayo WBC 5.4 103/ul Normal 4.0-11.0 [facility] Comment on above: Performed By: #### C BC ####[facility] [address] [place] [address]DrCarol Mayo FREE T4on 03-11-2022 Free T4 [Mass/Vol] 0.68 ng/dL Critically low 0.76-1.46 [facility] Comment on above: Performed By: #### F T4 #### [facility] [address] [place] [address] [address] Guille Mayo LIPID PROFILEon 03-11-2022 CHOL-HDL RATIO NORM SEE BELOW Normal [facility] Comment on above: Result Comment: 3.3 - 4.4 LOW RISK 4.4 - 7.1 AVERAGE RISK 7.1 - 11.0 MODERATE RISK >11.0 HIGH RISK Performed By: #### L IPID, TSH, CMP #### [facility] [address] [place] [address] [address] Guille Mayo Cholesterol [Mass/Vol] 130 mg/dL Normal <=200 [facility] Comment on above: Performed By: #### L IPID, TSH, CMP #### [facility] [address] [place] [address] [address] Guille Mayo Cholesterol in HDL [Mass/Vol] 45 mg/dL Normal 40-60 [facility] Comment on above: Performed By: #### L IPID, TSH, CMP #### [facility] [address] [place] [address] [address] Guille Mayo Cholesterol in LDL [Mass/Vol] 67.6 mg/dL Normal [facility] Comment on above: Performed By: #### L IPID, TSH, CMP #### [facility] [address] [place] [address] [address] Guille Mayo Cholesterol.total/Cho lesterol in HDL [Mass ratio] 2.9 {ratio} Normal [facility] Comment on above: Performed By: #### L IPID, TSH, CMP #### [facility] [address] [place] [address] [address] Guille Mayo HDL NORMAL > or = 60 mg/dl - LOW CARDIOVASCULAR RISK <40 mg/dl - HIGH CARDIOVASCULAR RISK Normal [facility] Comment on above: Performed By: #### L IPID, TSH, CMP #### [facility] [address] [place] [address] Dr. Guille Mayo LDL CALC NORMAL SEE BELOW Normal [facility] Comment on above: Result Comment: <100 mg/dl OPTIMAL 100 - 129 mg/dl NEAR OR ABOVE OPTIMAL 130 - 159 mg/dl BORDERLINE HIGH 160 - 189 mg/dl HIGH >190 mg/dl VERY HIGH Performed By: #### L IPID, TSH, CMP #### [facility] [address] [place] [address] [address] Guille Mayo Triglyceride [Mass/Vol] 87 mg/dL Normal <=150 [facility] Comment on above: Performed By: #### L IPID, TSH, CMP #### [facility] [address] [place] [address] [address] Guille Mayo VLDL CALC 17.4 mg/dL Normal [facility] Comment on above: Performed By: #### L IPID, TSH, CMP #### [facility] [address] [place] [address] [address] Guille Mayo PROF 14(COMP METB)on 023 Albumin [Mass/Vol] 3.8 g/dL Normal 3.4-5.0 [facility] Comment on above: Performed By: #### L IPID, TSH, CMP #### [facility] [address] [place] [address] Dr. Guille Mayo Albumin/Globulin [Mass ratio] 1.0 {ratio} Normal [facility] Comment on above: Performed By: #### L IPID, TSH, CMP #### [facility] [address] [place] [address] Dr. Guille Mayo ALP [Catalytic activity/Vol] 217 U/L Critically high 46-116 [facility] Comment on above: Performed By: #### L IPID, TSH, CMP #### [facility] [address] [place] [address] Dr. Guille Mayo ALT [Catalytic activity/Vol] 38 U/L Normal 16-63 [facility] Comment on above: Performed By: #### L IPID, TSH, CMP #### [facility] [address] [place] [address] Dr. Guille Mayo Anion gap [Moles/Vol] 12.2 mmol/L Normal [facility] Comment on above: Performed By: #### L IPID, TSH, CMP #### [facility] [address] [place] [address] Dr. Guille Mayo AST [Catalytic activity/Vol] 32 U/L Normal 15-37 [facility] Comment on above: Performed By: #### L IPID, TSH, CMP #### [facility] [address] [place] [address] Dr. Guille Mayo Bilirubin [Mass/Vol] 0.3 mg/dL Normal 0.2-1.0 [facility] Comment on above: Performed By: #### L IPID, TSH, CMP #### [facility] [address] [place] [address] Dr. Guille Mayo Calcium [Mass/Vol] 9.3 mg/dL Normal 8.5-10.1 [facility] Comment on above: Performed By: #### L IPID, TSH, CMP #### [facility] [address] [place] [address] Dr. Guille Mayo Chloride [Moles/Vol] 106 mmol/L Normal 98-107 [facility] Comment on above: Performed By: #### L IPID, TSH, CMP #### [facility] [address] [place] [address] [address] Guille Mayo CO2 [Moles/Vol] 27.2 mmol/L Normal 21.0-32.0 [facility] Comment on above: Performed By: #### L IPID, TSH, CMP #### [facility] [address] [place] [address] [address] Guille Mayo Creatinine [Mass/Vol] 1.31 mg/dL Critically high 0.70-1.30 [facility] Comment on above: Performed By: #### L IPID, TSH, CMP #### [facility] [address] [place] [address] Dr. Guille Mayo EGFR-AF GREEK >60 Normal >=60 [facility] Comment on above: Performed By: #### L IPID, TSH, CMP #### [facility] [address] [place] [address] Dr. Guille Mayo EGFR-NON AF GREEK 57 mL/min/1.73m2 Critically low >=60 [facility] Comment on above: Performed By: #### L IPID, TSH, CMP #### [facility] [address] [place] [address] Dr. Guille Mayo Globulin (S) [Mass/Vol] 3.8 g/dL Normal [facility] Comment on above: Performed By: #### L IPID, TSH, CMP #### [facility] [address] [place] [address] [address] Guille Mayo Glucose [Mass/Vol] 98 mg/dL Normal 74-106 [facility] Comment on above: Performed By: #### L IPID, TSH, CMP #### [facility] [address] [place] [address] Dr. Guille Mayo Potassium [Moles/Vol] 4.4 mmol/L Normal 3.5-5.1 [facility] Comment on above: Performed By: #### L IPID, TSH, CMP #### [facility] [address] [place], [place] [address] Dr. Guille Mayo Protein [Mass/Vol] 7.6 g/dL Normal 6.4-8.2 [facility] Comment on above: Performed By: #### L IPID, TSH, CMP #### [facility] [address] [place], [place] [address] Dr. Guille Mayo Sodium [Moles/Vol] 141 mmol/L Normal 136-145 [facility] Comment on above: Performed By: #### L IPID, TSH, CMP #### [facility] [address] [place], [place] [address] Dr. Guille Mayo Urea nitrogen [Mass/Vol] 27.0 mg/dL Critically high 7.0-18.0 [facility] Comment on above: Performed By: #### L IPID, TSH, CMP #### [facility] [address] [place] [address] [address] Guille Mayo Urea nitrogen/Creatinine [Mass ratio] 20.6 mg/mg Normal [facility] Comment on above: Performed By: #### L IPID, TSH, CMP #### [facility] [address] [id number] Guille Mayo TSHon 03-11-2022 TSH 0.278 uIU/mL Critically low 0.358-3.740 [facility] Comment on above: Performed By: #### L IPID, TSH, CMP ####[facility] [address] [place], [place] [address]YdDr. Guille Mayo XR ankle RT min 3V*on 2021 XR ankle RT min 3V* [facility] [address] Other XR ankle RT min 3V* [facility] [address] Other XR ankle RT min 3V* [address] [place] [address] Other XR ankle RT min 3V* [address] Other XR ankle RT min 3V* XRay Report [place] Other XR ankle RT min 3V* Signed [employer] Other XR ankle RT min 3V* Patient: Alethea Lei MR#: [id number] [place] Other XR ankle RT min 3V* : 1970 Acct:[id number] [place] Other XR ankle RT min 3V* Age/Sex: 51 / M ADM Date: 01/06/22 [employer] Other XR ankle RT min 3V* Loc: [facility] [place] Room: Type: [facility] [employer] Other XR ankle RT min 3V* Attending Dr: Cj Gayle DO [employer] Other XR ankle RT min 3V* Copies to: Cj Gayle DO [employer] Other XR ankle RT min 3V* Ordering Provider: Cj Gayle DO [employer] Other XR ankle RT min 3V* Date of Service: 01/06/22 [employer] Other XR ankle RT min 3V* XR/XR ankle RT min 3V*: Displaced fracture of lateral malleolus of right [employer] Other XR ankle RT min 3V* [facility] [place] Other XR ankle RT min 3V* 3views Rightankle [employer] Other XR ankle RT min 3V* COMPARISON:11/22/21 [employer] Other XR ankle RT min 3V* HISTORY: Status post ORIF RIGHT lateral malleolus fracture [employer] Other XR ankle RT min 3V* No hardware failure. Adequate bony alignment. Continued healing of distal fibular fracture. [employer] Other XR ankle RT min 3V* XR/XR ankle RT min 3V* [employer] Other XR ankle RT min 3V* IMPRESSION: Healing fracture. No hardware failure. 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 Pt presented with caries Radiograph taken today: none Discussed the medical necessity of the problem with the pt. Instructions given to pt. Caregiver understood the situation and is okay with medications for today. Pt will come back should things get worse. Guardianship: PARENTS - Nabila (MarlinGucci Lei [address] [place] [address] / Email: [email or web address] Communicated with caregiver that the pt was placed on the OR list and we will call with appt. Limited exam completed by Dr. Cohen NV. OR ----- Signed on Saturday, December 04, 2021 at 11:51:43 AM ----- ----- Provider: Manny Myers DDS -- Clinic: [facility] ----- Normal [facility] [email or web address] [facility] XR ankle RT min 3V*on 2021 XR ankle RT min 3V* [facility] [place] Other XR ankle RT min 3V* [facility] [address] Other XR ankle RT min 3V* [address] [place] [address] [employer] Other XR ankle RT min 3V* [place] [address] [employer] Other XR ankle RT min 3V* XRay Report [facility] [place] Other XR ankle RT min 3V* Signed [employer] Other XR ankle RT min 3V* Patient: Alethea Lei MR#: [id number] [employer] Other XR ankle RT min 3V* : 1970 Acct:[id number] [employer] Other XR ankle RT min 3V* Age/Sex: 51 / M ADM Date: 10/16/21 [employer] Other XR ankle RT min 3V* Loc: [facility] [place] Room: Type: [facility] [employer] Other XR ankle RT min 3V* Attending Dr: Cj Gayle DO [employer] Other XR ankle RT min 3V* Copies to: Cj Gayle DO [employer] Other XR ankle RT min 3V* Ordering Provider: Cj Gayle DO [employer] Other XR ankle RT min 3V* Date of Service: 10/16/21 [employer] Other XR ankle RT min 3V* XR/XR ankle RT min 3V*: Displaced fracture of lateral malleolus of right [employer] Other XR ankle RT min 3V* [facility] [place] Other XR ankle RT min 3V* RIGHT ANKLE - 3 views [employer] Other XR ankle RT min 3V* CLINICAL HISTORY: ORIF right lateral malleolus fracture. Follow up [employer] Other XR ankle RT min 3V* COMPARISON: Intraoperative study 09/24/2021 [employer] Other XR ankle RT min 3V* FINDINGS: [employer] Other XR ankle RT min 3V* syndesmotic screw without evidence of hardware complication. Fracture line is still evident [employer] Other XR ankle RT min 3V* suggestive of incomplete healing. Medial malleolar fracture is unchanged.. Soft tissue swelling. [employer] Other XR ankle RT min 3V* Plantar spurring. [employer] Other XR ankle RT min 3V* XR/XR ankle RT min 3V* [employer] Other XR ankle RT min 3V* IMPRESSION: [facility] [place] Other XR ankle RT min 3V* NO EVIDENCE OF HARDWARE COMPLICATION. [employer] Other XR ankle RT min 3V* Impression dictated by: Panda De Guzman Jr., DCarolOCarol10/16/2021 1:10 PM [employer] Other XR ankle RT min 3V* Dictation Location: [place] [address] [employer] Other XR ankle RT min 3V* Transcribed By: WENDY 10/16/21 1310 [employer] Other XR ankle RT min 3V* Dictated By: Panda De Guzman Jr, DO 10/16/21 1307 [facility] [address] Other XR ankle RT min 3V* Signed By: [employer] Other XR ankle RT min 3V* 10/16/21 1310 No rt [place] Other COVID-19 Positive/NegativeOr dered By: Cj Gayle on 09-23-2021 SARS-CoV-2 (COVID-19) N gene GARY+probe Ql (Resp) Negative Negative [facility] Comment on above: Testing for SARS-CoV -2 by RT-PCR This test was developed and its performance characteristics determined by [employer] and validated at the [facility]. This test has not been FDA cleared [...] BASO # 0.0 103/ul Normal 0.0-0.1 [facility] Comment on above: Performed By: #### C BC ####[facility] [address]qp1897 [place] [id number] Mayo Basophils/100 WBC (Bld) 0.2 % Normal 0.2-2.0 [facility] Comment on above: Performed By: #### C BC ####[facility] Ivmhqltvgm5141 [place] [id number] Mayo EO # 0.1 103/ul Normal 0.0-0.7 [facility] Comment on above: Performed By: #### C BC ####[facility] [address]x2269 [place] [address]Dr. Guille Mayo Eosinophils/100 WBC (Bld) 1.2 % Normal 0.9-7.0 [facility] Comment on above: Performed By: #### C BC ####[facility] Kr[address]jlexif8070 [place] [address]Dr. Guille Mayo Erythrocyte distribution width (RBC) [Ratio] 12.2 % Normal 11.0-15.0 [facility] Comment on above: Performed By: #### C BC ####[facility] Sibph[address]ldxf2095 [place] [address]Dr. Guille Mayo Hematocrit (Bld) [Volume fraction] 38.0 % Critically low 42.0-54.0 [facility] Comment on above: Performed By: #### C BC ####[facility] [address] [place], [place] [address]Dr. Guille Mayo Hemoglobin (Bld) [Mass/Vol] 12.8 g/dL Critically low 14.0-18.0 [facility] Comment on above: Performed By: #### C BC ####[facility] [address] [place], [place] [address]Dr. Guille Mayo IG # 0.03 10e3/ul Normal 0.00-0.03 [facility] Comment on above: Performed By: #### C BC ####[facility] [address] [place], [place] [address]Dr. Guille Mayo IG % 0.4 % Normal 0.0-0.5 [facility] Comment on above: Performed By: #### C BC ####[facility] [address] [place], [place] [address]Dr. Guille Mayo LYMPH # 0.9 103/ul Critically low 1.2-3.8 [facility] Comment on above: Performed By: #### C BC ####[facility] [address] [place], [place] [address]Dr. Guille Mayo Lymphocytes/100 WBC (Bld) 10.7 % Critically low 20.5-60.0 [facility] Comment on above: Performed By: #### C BC ####[facility] [address]um[address]rc[address]35 [place] [address]Dr. Guille Mayo MANUAL DIFF REQ NO Normal [facility] Comment on above: Performed By: #### C BC ####[facility] Uleijpudag[address]67 [place] [id number]. Guille Mayo MCH (RBC) [Entitic mass] 32.2 pg Normal 25.9-34.0 [facility] Comment on above: Performed By: #### C BC ####[facility] Tvttqdrldk6227 [place] [address]Dr. Guille Mayo MCHC (RBC) [Mass/Vol] 33.7 g/dL Normal 29.9-35.2 [facility] Comment on above: Performed By: #### C BC ####[facility] [address] [place], [place] [address]Dr. Guille Mayo MCV (RBC) [Entitic vol] 95.7 fL Critically high 80.0-94.0 [facility] Comment on above: Performed By: #### C BC ####[facility] [address] [place], [place] [address]Dr. Guille Mayo MONO # 0.7 103/ul Normal 0.3-0.8 [facility] Comment on above: Performed By: #### C BC ####[facility] [address]abfe[address] [place] [address]Dr. Guille Mayo Monocytes/100 WBC (Bld) 9.0 % Normal 1.7-12.0 [facility] Comment on above: Performed By: #### C BC ####[facility] [address] [place], [place] [address]DrCarol Mayo NEUT # 6.4 103/ul Normal 1.4-6.5 [facility] Comment on above: Performed By: #### C BC ####[facility] [address] [place], [place] [address]DrCarol Mayo Neutrophils/100 WBC (Bld) 78.5 % Critically high 43.0-75.0 [facility] Comment on above: Performed By: #### C BC ####[facility] [address] [place], [place] [address]Or. Guille Mayo Platelet mean volume (Bld) [Entitic vol] 9.9 fL Normal 9.5-13.5 [facility] Comment on above: Performed By: #### C BC ####[facility] F[address]uf[address]756 [place] [id number]. Guille Mayo PLT 152 103/ul Normal 150-450 [facility] Comment on above: Performed By: #### C BC ####[facility] [address]aptivgf2528 [place], [place] [address]Vy. Guille Mayo RBC 3.97 106/ul Critically low 4.70-6.10 [facility] Comment on above: Performed By: #### C BC ####[facility] [address]jxsd9199 [place], [place] [address]Lc. Guille Mayo WBC 8.1 103/ul Normal 4.0-11.0 [facility] Comment on above: Performed By: #### C BC ####[facility] [address]ds[address] [place], [place] [address] HEAD WO CONon 09-18-2021 [...] SANDY DÍAZ Date: 2021-09-18 15:44 Normal [facility] Covid-19 PCR (CVDTB)on 08-24 SARS-CoV-2 (COVID-19) RNA GARY+probe Ql (Unsp spec) Not detected Normal NOT DETECTED [facility] Comment on above: Result Comment: When [...] for this test is supported by the [employer] of Health and Human Service's declaration that [...] be used). Performed By: #### C VDTB ####[facility] [address] [place] [address]Dr. Guille Mayo PROF CHEM 8 (BAS METB)on Anion gap [Moles/Vol] 12.4 mmol/L Normal [facility] Comment on above: Performed By: #### B MP ####[facility] [address]io4440 [place] [address]DrCarol Mayo Calcium [Mass/Vol] 8.7 mg/dL Normal 8.5-10.1 [facility] Comment on above: Performed By: #### B MP ####[facility] [address]fvnbylm0[address] [place] [address]DrCarol Mayo Chloride [Moles/Vol] 107 mmol/L Normal 98-107 [facility] Comment on above: Performed By: #### B MP ####[facility] M[address]zdolykm7555 [place] [address]DrCarol Mayo CO2 [Moles/Vol] 28.0 mmol/L Normal 21.0-32.0 [facility] [place] Comment on above: Performed By: #### B MP ####[facility] [address]zzfy[address]zo7471 [place] [id number]. Kyalhizzy Gael Creatinine [Mass/Vol] 1.45 mg/dL Critically high 0.70-1.30 [facility] Comment on above: Performed By: #### B MP ####[facility] [address]iaulmx475[address] [place] [id number]. Guille Mayo EGFR-AF GREEK >60 Normal >=60 [facility] [place] Comment on above: Performed By: #### B MP ####[facility] Aoxiwqdtmx7586 [place] [phone]. Guille Mayo EGFR-NON AF GREEK 51 mL/min/1.73m2 Critically low >=60 [facility] Comment on above: Performed By: #### B MP ####[facility] [address]fe[address]azo75[address] [place] [address]Dr. Guille Mayo Glucose [Mass/Vol] 87 mg/dL Normal 74-106 [facility] Comment on above: Performed By: #### B MP ####[facility] [address]cuepxf7670 [place] [id number]. Guille Mayo Potassium [Moles/Vol] 4.4 mmol/L Normal 3.5-5.1 [facility] Comment on above: Performed By: #### B MP ####[facility] J[address]fmue2372 [place] [address]Dr. Guille Mayo Sodium [Moles/Vol] 143 mmol/L Normal 136-145 [facility] Comment on above: Performed By: #### B MP ####[facility] [address]irya3[address] [place] [id number]. Guille Mayo Urea nitrogen [Mass/Vol] 24.0 mg/dL Critically high 7.0-18.0 [facility] Comment on above: Performed By: #### B MP ####[facility] Qiix[address]izjn3[address] [place] [id number]. Guille Mayo Urea nitrogen/Creatinine [Mass ratio] 16.6 mg/mg Normal [facility] Comment on above: Performed By: #### B ####[facility] [address]90[address] [place], [place] [address]GjCarol Mayo XR CHEST 1 Von 09-18-2021 XR [...] SANDY DÍAZ Date: 2021-09-18 15:[address] [facility] [address] CHEST WO CONon 08-02-2021 CT [...] by: NORMA ROSS Date: 2021-08-02 08:52 Normal [facility] XR DEXA BONE DENSITYon 07-31 [...] by: NORMA ROSS Date: 2021-07-31 16:14 Normal [facility] Anesthesia Attestationon [employer]per Authentication Interface Message Text Anesthesia Attestation ATTESTATION OF INFORMED CONSENT FOR ANESTHESIA Anesthesia options were discussed with the patient and/or legal benefits representative. The risks, benefits and alternatives were reviewed. Questions regarding anesthesia were answered. Patient and/or legal benefits representative knows such anesthetics and procedures may be performed by Resident physicians, Certified Anesthesiologist Assistants, or Certified Nurse Anesthetists under the supervision of a physician. The patient /or the patient's legal benefits representative agree with the plan for anesthesia. 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 Anson Schwartz MD Normal [facility] Blood Attestationon 01-26-20 [employer]pet [employer]er [employer]per Authentication Interface Message Text Blood Attestation ATTESTATION OF INFORMED CONSENT FOR BLOOD The transfusion of blood and/or blood components were discussed with the patient and/or legal benefits representative. The risks, benefits and alternatives were reviewed. Questions regarding blood transfusions were answered. The patient /or the patient's legal benefits representative agree with the plan for transfusion of blood and/or blood components. 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 Procedures: Full mouth X-ray 51874 Exam 59549 Cleaning 10393 [place]ze 32088 Fluoride 84791 Excisional biopsy [id number] No data filed Surgeon(s): Surgeon(s): Simi Edwards DDS Staff: Production Truck Driver Nurse: Deborah Chapman RN; Crystal Anderson RN International Sourcing Manager: Carolyn López DDS Anesthesia: General Anesthesiologist: Jero Peralta MD Agricultural Appraiser: Anson Schwartz MD Specimen(s): ID Type Source [...] López DDS 01/25/2021 12:11 PM Normal [facility] OP Noteon 01-25-2021 [employer]pet Installer Helper Authentication Interface Message Text Surgical Case Number Data Unavailable Operating Room Data Unavailable Preoperative Diagnosis(es): Dental caries [994190] Autism spectrum disorder F84.0 Moderate intellectual disability F79 Seizure disorder G40.89 Postoperative Diagnosis(es): Autism spectrum disorder F84.0 Moderate intellectual disability F79 Seizure disorder G40.89 Dental caries [656963] 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 tchilxq-jntknqtaxr-f cellular pertussis (BOOSTRIX) 5-2.5-18.5 LF-MCG/0.5 injection Inject 0.5 mL into the muscle. Dictated by: Carolyn López DDS: Simi Joyner DDS was present for the critical portions of the procedure. 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 * ronbfsv-wyzyidalkx-m cellular pertussis (BOOSTRIX) 5-2.5-18.5 LF-MCG/0.5 injection Inject 0.5 mL into the muscle. Dictated by: Carolyn López DDS: Simi Joyner DDS was present for the critical portions of the procedure. 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 Normal [facility] Telephone Encounteron 2020 Carpet Installer Helper Authentication Interface Message Text Informed Consent for dental surgery AND Anesthesia consent obtained and scanned into [place]. Scheduled for surgery 01/25/2021. Normal [facility] AUD - Progress Noteson 04-20 Protein mass conc Pt. referred for hearing evaluation by Dr. Foster, accompanied by Caitie, a direct care provider from [facility]. Pt. returns today after having ears cleaned out. Pt. denied ear pain at the time of testing. Completed evaluation, resorting to play audiometry for pure tone testing. See AUD-Assessments for Report/Results. DX CODES: H90.3 sensorineural hearing loss bilateral Normal [facility] Coding Summary.on 04-20-2018 Coding Summary. CODING DATE: 04/20/2018 FINAL [facility] STATUS: PAYOR: Medicare APC DESCRIPTION [id number] [...] CphT Date Saved: 04/20/2018 09:11 pm Normal [facility] AUD - Progress Noteson 03-31 Protein mass conc pt. referred for hearing evaluation by Muna Foster DO, accompanied by Darius direct care provider from [facility]. Otoscopy revealed cerumen in the right ear canal clocking view of the tympanic membrane, left ear with moderate cerumen but tympanic membrance visible. Discussed with Saurabh, did not complete evaluation today. He will return after bilateral ear cleaning. Called and spoke to [facility]/Nursing/Ainsley and advised her of the above. Normal [facility] Mohit 09-09-2016 Alanine aminotransferase (ALT) 35 U/L Normal <40 [facility] Soni 09-09-2016 Aspartate aminotransferase (AST) 26 U/L Normal 15-50 [facility] Albuminon 09-09-2016 Albumin 4.5 g/dL Normal 3.4-5.2 [facility] BUNon 09-09-2016 Urea nitrogen 21 mg/dL High 5-18 [facility] Creatinineon 09-09-2016 Creatinine 1.21 mg/dL High 0.50-1.20 [facility] Electrolyteson 09-09-2016 Chloride 107 mmol/L High 95-106 [facility] CO2 24 mmol/L Normal 24-35 [facility] Potassium molar conc 4.4 mmol/L Normal 3.7-5.3 [facility] mmol/L Normal 135-145 [facility] Vital Signs Date Time Vital Sign Value Performing Clinician Facility 09-21-2024 14:21-0400 Body height 172.72 cm Go Foster DO Work Phone: [facility] 09-21-2024 14:21-0400 Body mass index (BMI) [Ratio] 28.2 kg/m2 Go Foster DO Work Phone: [facility] 09-21-2024 14:21-0400 Body weight 84.14 kg Go Foster DO Work Phone: [facility] 09-21-2024 14:21-0400 Diastolic blood pressure 103 mm[Hg] Go Escaleraring DO Work Phone: [facility] 09-21-2024 14:21-0400 Systolic blood pressure 138 mm[Hg] Go Escaleraring DO Work Phone: [facility] 08-19-2024 14:40-0400 Body height 165.1 cm Go Foster DO Work Phone: [facility] 08-19-2024 11:00-0400 Body temperature 97.6 [degF] Adams Weaver MD Work Phone: [facility] 08-19-2024 11:00-0400 Diastolic blood pressure 66 mm[Hg] Adams Weaver MD Work Phone: [facility] 08-19-2024 11:00-0400 Heart rate 71 /min Adams Weaver MD Work Phone: [facility] 08-19-2024 11:00-0400 Respiratory rate 16 /min Adams Weaver MD Work Phone: [facility] 08-19-2024 11:00-0400 SaO2% (BldA) [Mass fraction] 99 % Adams Weaver MD Work Phone: [facility] 08-19-2024 11:00-0400 Systolic blood pressure 126 mm[Hg] Adams Weaver MD Work Phone: [facility] 08-19-2024 06:00-0400 Body weight 81 kg Adams Weaver MD Work Phone: [facility] 08-17-2024 20:00-0400 Body temperature 98.5 [degF] Go Foster DO Work Phone: [facility] 08-17-2024 20:00-0400 Diastolic blood pressure 78 mm[Hg] Go Foster DO Work Phone: [facility] 08-17-2024 20:00-0400 Heart rate 78 /min Go Foster DO Work Phone: [facility] 08-17-2024 20:00-0400 Respiratory rate 20 /min Go Foster DO Work Phone: [facility] 08-17-2024 20:00-0400 SaO2% (BldA) [Mass fraction] 94 % Go Foster DO Work Phone: [facility] 08-17-2024 20:00-0400 Systolic blood pressure 172 mm[Hg] Go Foster DO Work Phone: [facility] 08-17-2024 15:25-0400 Body height 165.1 cm Go Foster DO Work Phone: [facility] 08-17-2024 01:05-0400 Body weight 87.6 kg Go Foster DO Work Phone: [facility] 08-01-2024 09:54-0400 Body height 172.7 cm Glenn Brown DPM Work Phone: [facility] 08-01-2024 09:54-0400 Body mass index (BMI) [Ratio] 28.13 kg/m2 Glenn Brown DPM Work Phone: [facility] 08-01-2024 09:54-0400 Body weight 83.92 kg Glenn Brown DPM Work Phone: [facility] 08-01-2024 09:54-0400 Respiratory rate 18 /min Glenn Brown DPM Work Phone: [facility] 07-11-2024 09:55-0400 Body height 172.7 cm Glenn Brown DPM Work Phone: [facility] 07-11-2024 09:55-0400 Body mass index (BMI) [Ratio] 28.13 kg/m2 Glenn Brown DPM Work Phone: [facility] 07-11-2024 09:55-0400 Body weight 83.92 kg Glenn Brown DPM Work Phone: [facility] 07-11-2024 09:55-0400 Respiratory rate 16 /min Glenn Brown DPM Work Phone: [facility] 06-17-2024 10:03-0400 Body height 172.7 cm Glenn Brown DPM Work Phone: [facility] 06-17-2024 10:03-0400 Body mass index (BMI) [Ratio] 28.13 kg/m2 Glenn Brown DPM Work Phone: [facility] 06-17-2024 10:03-0400 Body weight 83.92 kg Glenn Brown DPM Work Phone: [facility] 06-17-2024 10:03-0400 Respiratory rate 16 /min Glenn Brown DPM Work Phone: [facility] 05-27-2024 09:46-0400 Body height 172.7 cm Glenn Brown DPM Work Phone: [facility] 05-27-2024 09:46-0400 Body mass index (BMI) [Ratio] 28.13 kg/m2 Glenn Brown DPM Work Phone: [facility] 05-27-2024 09:46-0400 Body weight 83.92 kg Glenn Brown DPM Work Phone: [facility] 05-27-2024 09:46-0400 Respiratory rate 16 /min Glenn Brown DPM Work Phone: [facility] 05-18-2024 16:06-0400 Body height 172.7 cm Glenn Brown DPM Work Phone: [facility] 05-18-2024 16:06-0400 Body mass index (BMI) [Ratio] 28.13 kg/m2 Glenn Brown DPM Work Phone: [facility] 05-18-2024 16:06-0400 Body weight 83.92 kg Glenn Brown DPM Work Phone: [facility] 05-18-2024 16:06-0400 Diastolic blood pressure 90 mm[Hg] Glenn Brown DPM Work Phone: [facility] 05-18-2024 16:06-0400 Heart rate 69 /min Glenn Brown DPM Work Phone: [facility] 05-18-2024 16:06-0400 Systolic blood pressure 139 mm[Hg] Glenn Brown DPM Work Phone: [facility] 04-15-2024 09:29-0500 Body height 172.7 cm Glenn Brown DPM Work Phone: [facility] 04-15-2024 09:29-0500 Body mass index (BMI) [Ratio] 28.13 kg/m2 Glenn Brown DPM Work Phone: [facility] 04-15-2024 09:29-0500 Body weight 83.92 kg Glenn Brown DPM Work Phone: [facility] 04-15-2024 09:29-0500 Diastolic blood pressure 82 mm[Hg] Glenn Brown DPM Work Phone: [facility] 04-15-2024 09:29-0500 Heart rate 71 /min Glenn Mark DPM Work Phone: [facility] 04-15-2024 09:29-0500 Systolic blood pressure 138 mm[Hg] Glenn Mark DPM Work Phone: [facility] 02-09-2024 10:52-0500 Body height 172.7 cm Ana Maria Hsu WORKDAY CONSULTANT Work Phone: [facility] 02-09-2024 10:52-0500 Body mass index (BMI) [Ratio] 28.13 kg/m2 Ana Maria Hsu WORKDAY CONSULTANT Work Phone: [facility] 02-09-2024 10:52-0500 Body weight 83.92 kg Ana Maria Ramirezmor WORKDAY CONSULTANT Work Phone: [facility] 02-09-2024 10:52-0500 Diastolic blood pressure 90 mm[Hg] Ana Maria Ramirezmor WORKDAY CONSULTANT Work Phone: [facility] 02-09-2024 10:52-0500 Heart rate 69 /min Ana Maria Ramirezmor WORKDAY CONSULTANT Work Phone: [facility] 02-09-2024 10:52-0500 Systolic blood pressure 139 mm[Hg] Ana Maria Ramirezmor WORKDAY CONSULTANT Work Phone: [facility] 01-06-2022 12:30-0500 Body height 177.8 cm Cj Nalini Other [employer] Other 01-06-2022 12:30-0500 Body mass index (BMI) [Ratio] 27.69 kg/m2 Cj Gayle Other [employer] Other 01-06-2022 12:30-0500 Body weight 87.54 kg Cj Nalini Other [employer] Other 09-24-2021 17:03-0400 Diastolic blood pressure 100 mm[Hg] DO Go Foster Work Phone: [facility] 09-24-2021 17:03-0400 Heart rate 79 /min DO Go Foster Work Phone: [facility] 09-24-2021 17:03-0400 Respiratory rate 16 /min DO Go Foster Work Phone: [facility] 09-24-2021 17:03-0400 SaO2% (BldA) [Mass fraction] 94 % DO Go Foster Work Phone: [facility] 09-24-2021 17:03-0400 Systolic blood pressure 156 mm[Hg] DO Go Foster Work Phone: [facility] 09-24-2021 15:05-0400 Body temperature 97.1 [degF] DO Go Foster Work Phone: [facility] 09-24-2021 15:05-0400 Inhaled oxygen flow rate 6 L/min DO Go Foster Work Phone: [facility] 09-24-2021 14:22-0400 Body height 172.72 cm DO Go Foster Work Phone: [facility] 09-24-2021 14:22-0400 Body mass index (BMI) [Ratio] 29.6 kg/m2 DO Go Foster Work Phone: [facility] 09-24-2021 14:22-0400 Body weight 88.4 kg DO Go Foster Work Phone: [facility] 08-14-2021 10:45-0400 Body height 177.8 cm Estebanred Kassynoemi Other [employer] Other 08-14-2021 10:45-0400 Body mass index (BMI) [Ratio] 27.55 kg/m2 Nallely Tal Other [employer] Other 08-14-2021 10:45-0400 Body temperature 97 [degF] Nallely Elenaban Other [employer] Other 08-14-2021 10:45-0400 Body weight 87.09 kg Estebanred Parada Other [employer] Other 08-14-2021 10:45-0400 Diastolic blood pressure 84 mm[Hg] Nallely Parada Other [employer] Other 08-14-2021 10:45-0400 Respiratory rate 20 /min Nallely Parada Other [employer] Other 08-14-2021 10:45-0400 SaO2% (BldA) [Mass fraction] 98 % Nallely Parada Other [employer] Other 08-14-2021 10:45-0400 Systolic blood pressure 132 mm[Hg] Nallely Parada Other [employer] Other Encounters Encounter Date Encounter Type Care Provider Facility Start: 10-12-2024 ambulatory MD HERBER GAGNON Facility: [facility] Start: 09-29-2024 End: 09-30-2024 ambulatory MD HERBER GAGNON Facility:[facility] Start: 09-28-2024 ambulatory Radha Kirkland Facility:[facility] Start: 09-26-2024 End: 09-26-2024 ambulatory MD HERBER GAGNON Facility:[facility] Start: 09-21-2024 End: 09-21-2024 ambulatory Go Foster DO Work Phone: [facility] Work Phone: Start: 09-21-2024 End: 09-21-2024 Patient encounter procedure Ana Maria Kwon APRN -[facility] Work Phone: Start: 09-07-2024 End: 09-07-2024 ambulatory Ashanti Bautista Facility: [facility] Start: 09-07-2024 End: 09-07-2024 Patient encounter procedure Ashanti J Galea [facility] Start: 08-24-2024 End: 08-24-2024 ambulatory Ashanti J Galea Facility:[facility] Start: 08-24-2024 End: 08-24-2024 Patient encounter procedure Ashanti J Galea [facility] Start: 08-19-2024 ambulatory Ashanti Bautista Facility:[facility] Start: 08-17-2024 Non-patient / Non-visit Clint Brizuela MD -[facility] Work Phone: Start: 08-17-2024 End: 08-19-2024 Evaluation and management of inpatient Go Foster Facility:[facility] Start: 08-16-2024 End: 08-16-2024 ambulatory Go Foster DO Work Phone: [facility] Work Phone: Start: 08-16-2024 End: 08-16-2024 Departed Referred Geovanny Olmos DO -[facility] Start: 08-14-2024 End: 08-14-2024 ambulatory Adams Weaver Facility:[facility] Start: 08-14-2024 End: 08-14-2024 Departed Referred Adams Weaver MD -[facility] Start: 08-01-2024 End: 08-01-2024 Bamboo flowsheet Glenn Brown DPM Work Phone: [facility] Start: 08-01-2024 End: 08-01-2024 Bamboo flowsheet Glenn Brown DPM Work Phone: [facility] Start: 08-01-2024 End: 08-01-2024 Office outpatient visit 25 minutes Glenn Brown DPM Work Phone: [facility] Comment on above: Lisfranc dislocation , left, initial encounter (Primary Dx) Start: 08-01-2024 End: 08-01-2024 ambulatory GLENN BROWN Not Available Start: 07-11-2024 End: 07-11-2024 Bamboo flowsheet Glenn Brown DPM Work Phone: [facility] Start: 07-11-2024 End: 07-11-2024 Bamboo flowsheet Glenn Radhames Brown DPM Work Phone: [facility] Start: 07-11-2024 End: 07-11-2024 Office outpatient visit 25 minutes Glenn Radhames Brown DPM Work Phone: [facility] Comment on above: Lisfranc dislocation , left, initial encounter (Primary Dx) Start: 07-11-2024 End: 07-11-2024 ambulatory GLENN BROWN Not Available Start: 06-17-2024 End: 06-17-2024 Bamboo flowsheet Glenn A Brown DPM Work Phone: [facility] Start: 06-17-2024 End: 06-17-2024 Bamboo flowsheet Glenn A Brown DPM Work Phone: [facility] Start: 06-17-2024 End: 06-17-2024 ambulatory GLENN BROWN Not Available Start: 06-17-2024 End: 06-17-2024 Office outpatient visit 25 minutes Glenn Radhames Brown DPM Work Phone: [facility] Comment on above: Lisfranc dislocation , left, initial encounter (Primary Dx) Start: 05-30-2024 End: 05-30-2024 ambulatory SUMEET SWANSON Facility:[facility] Start: 05-27-2024 End: 05-27-2024 Bamboo flowsheet Glenn Radhames Brown DPM Work Phone: [facility] Start: 05-27-2024 End: 05-27-2024 Bamboo flowsheet Glenn A Brown DPM Work Phone: [facility] Start: 05-27-2024 End: 05-27-2024 Office outpatient visit 25 minutes Glenn Radhames Brown DPM Work Phone: [facility] Comment on above: Lisfranc dislocation , left, initial encounter (Primary Dx) Start: 05-27-2024 End: 05-27-2024 ambulatory GLENN BROWN Not Available Start: 05-18-2024 End: 05-18-2024 Office outpatient visit 15 minutes Glenn Brown [...] right Start: 04-15-2024 End: 04-15-2024 ambulatory GLENN Radhames BROWN Not Available Start: 02-09-2024 End: 02-09-2024 Bamboo flowsheet Ana Maria Hsu WORKDAY CONSULTANT Work Phone: [facility] Start: 02-09-2024 End: 02-09-2024 Bamboo flowsheet Ana Maria Hsu WORKDAY CONSULTANT Work Phone: [facility] Start: 02-09-2024 End: 02-09-2024 Office outpatient visit 25 minutes Ana Maria Hsu WORKDAY CONSULTANT Work Phone: [facility] Comment on above: Seizure disorder (CM S/HCC) (Primary Dx); Frequent falls; Mental disability (CMS/HCC); Tuberous sclerosis (CMS/HCC) Start: 02-09-2024 End: 02-09-2024 ambulatory ANA MARIA TIANRosie Not Available Start: 01-16-2024 End: 01-16-2024 Letter encounter [facility] Start: 11-10-2023 End: 11-10-2023 ambulatory SUMEET SWANSON Facility:[facility] Start: 08-19-2023 End: 08-19-2023 Lab Drop off GO FOSTER [facility] Start: 08-19-2023 End: 08-19-2023 ambulatory GO FOSTER Facility:[facility] Start: 08-06-2023 End: 08-06-2023 ambulatory ANA MARIA HSU Not Available Start: 02-25-2023 End: 02-25-2023 Lab Drop off GO FOSTER [facility] Start: 02-25-2023 End: 02-25-2023 ambulatory GO FOSTER Facility:[facility] Start: 11-12-2022 End: 11-12-2022 ambulatory GO FOSTER Facility:[facility] Start: 11-12-2022 End: 11-12-2022 Lab Drop off GO FOSTER [facility] Start: 05-27-2022 End: 05-28-[address] GO FOSTER Facility: Start: 04-24-2022 Letter encounter [facility] Start: 04-11-2022 End: 04-12-[address] GO FOSTER Facility: Start: 04-10-2022 End: 04-11-[address] GO FOSTER Facility:[facility] Start: 04-09-2022 End: 04-09-2022 ambulatory Nallely Parada Other [employer] Other Start: 04-09-2022 Telephone encounter Nallely Elenanoemi [facility] Start: 03-12-2022 End: 03-12-2022 ambulatory DO Go Ricci Foster Work Phone: [facility] Work Phone: Start: 03-12-2022 End: 03-12-2022 Patient encounter procedure DO Go Foster Work Phone: [facility] Work Phone: Start: 03-11-2022 End: 03-12-[address] GO FOSTER Facility:[facility] Start: 02-06-2022 End: 02-06-2022 ambulatory Nallely Parada Other [employer] Other Start: 02-06-2022 Telephone encounter Nallely Parada [facility] Start: 01-07-2022 End: 01-07-2022 ambulatory Cj Gayle Other [employer] Other Start: 01-07-2022 Telephone encounter Cj GOMES [facility] Start: 01-06-2022 Postop follow up vis it related to original px Cj Gayle [facility] Start: 01-06-2022 End: 01-06-2022 ambulatory DO Go Ricci Foster Work Phone: [facility] Work Phone: Start: 01-06-2022 End: 01-06-2022 Patient encounter procedure DO Go Foster Work Phone: [facility] Start: 12-04-2021 End: 12-06-2021 ambulatory UNKNOWN PROVIDER Facility:[facility] Start: 12-04-2021 End: 12-06-2021 Patient encounter procedure Ly Redmond RDH Work Phone: [facility] Start: 11-22-2021 End: 11-22-2021 ambulatory Cj Gayle Other [employer] Other Start: 11-22-2021 Postop follow up vis it related to original px Cj Nalini [facility] Start: 11-22-2021 End: 11-22-2021 Patient encounter procedure DO Go Foster Work Phone: [facility] Start: 10-16-2021 End: 10-16-2021 ambulatory Cj Gayle Other [employer] Other Start: 10-16-2021 Postop follow up vis it related to original px Cj Nalini [facility] Start: 10-16-2021 End: 10-16-2021 Patient encounter procedure DO Go Foster Work Phone: [facility] Start: 09-24-2021 End: 09-24-2021 Admission to same day surgery center DO Go Foster Work Phone: [facility] [place] Start: 09-23-2021 End: 09-23-2021 Patient encounter procedure DO Go Foster Work Phone: [facility] Start: 09-18-2021 End: 09-18-2021 ambulatory TRAN MORALEZ . Facility:[facility] Start: 08-14-2021 End: 08-14-2021 ambulatory Nallely Parada Other [employer] Other Start: 08-14-2021 Office outpatient ne w 45 minutes Nallely Parada [facility] Start: 08-01-2021 End: 08-02-[address] GO FOSTER Facility:[facility] Start: 07-31-2021 End: 08-01-[address] GO FOSTER Facility: Start: 01-25-2021 End: 01-26-2021 ambulatory SIMI MEADOWS Facility:[facility] Start: 01-25-2021 ambulatory UNKNOWN PROVIDER Facili ty:[facility] Start: 09-09-2016 End: 09-09-2016 [address]AD NIC[address] [facility] Procedures Date Procedure Procedure Detail [...] Office Visit [facility] [address] [place] [address] Ana Maria Hsu NP [address] [place], [place] [facility] Start: 08-21-2024 [facility] Start: 08-20-2024 [facility] Start: 08-19-2024 End: 08-19-2024 [facility] Start: 08-18-2024 [facility] Start: 08-17-2024 Referral to regulatory affairs spec [facility] Start: 08-17-2024 Hospital admission [facility] Start: 08-17-2024 [facility] Start: 08-16-2024 Urine culture [facility] Start: 08-16-2024 Bacteria identified in Urine by Culture Urine Culture [facility] Start: 08-04-2024 End: 08-04-2024 Patient encounter procedure [facility] Start: 08-01-2024 End: 08-01-2024 Patient encounter procedure 08/01/2024 10:00 AM EDT Office Visit [facility] [address] [place] [id number] Glenn Brown, DPM [address] [address] Lisfranc dislocation, left, initial encounter (Primary Dx) [facility] Comment on above: Lisfranc dislocation , left, initial encounter (Primary Dx) Start: 07-11-2024 End: 07-11-2024 Patient encounter procedure 07/11/2024 9:50 AM EDT Office Visit [facility] [address] [place] [phone] Glenn Brown DPM [address] [address] Lisfranc dislocation, left, initial encounter (Primary Dx) [facility] Comment on above: Lisfranc dislocation , left, initial encounter (Primary Dx) Start: 05-27-2024 End: 05-27-2024 Patient encounter procedure 05/27/2024 9:40 AM EDT Office Visit [facility] [address] [place] [id number] Glenn Brown DPM [address] [address] Arrived [facility] Comment on above: Arrived Start: 05-18-2024 End: 05-18-2024 Patient encounter procedure 05/18/2024 4:00 PM EDT Office Visit [facility] [address] [place] [phone] Glenn Brown, DPM [address] [address] Arrived [facility] Comment on above: Arrived Start: 04-15-2024 End: 04-15-2024 Patient encounter procedure 04/15/2024 9:30 AM EST Office Visit [facility] [address] [place] [phone] Glenn Brown, DPM [address] [address] Arrived [facility] Comment on above: Arrived Start: 02-09-2024 End: 02-09-2024 Patient encounter procedure 02/09/2024 10:40 AM EST Office Visit [facility] [address] [place] [address] Ana Maria Hsu, IVETTE [address] [place], [place] Arrived [facility] [address] Comment on above: Arrived Start: 10-25-2023 COVID-19 Vaccine ( season) COVID-19 Vaccine ( season) [facility] Start: 10-25-2023 Influenza vaccination Influenza Vacc ine (#1) [facility] Start: 11-23-2021 Influenza vaccination Influenza Vacc ine (#1) [facility] Start: 10-16-2021 X-ray of right ankle XR ankle RT min 3V* [facility] Start: 10-16-2021 End: 10-16-2021 Patient encounter procedure Departed Clinical [facility] Start: 09-24-2021 [facility] Work Phone: Start: 09-24-2021 [facility] Work Phone: Start: 08-21-2021 COVID-19 Vaccine (5 - Booster for Pfizer series) COVID-19 Vaccine (5 - Booster for Pfizer series) [facility] Start: 01-10-2018 Measurement of occul t blood in single stool specimen FIT [facility] Start: 01-10-2018 Screening for malign ant neoplasm of colon CRC Screening [facility] Start: 01-10-2018 Shingles (RZV) Vacci ne (1 of 2) Shingles (RZV) Vaccine (1 of 2) [facility] Start: 01-10-2013 Screening for malign ant neoplasm of colon [facility] Start: 01-10-2003 Lipid panel Cholesterol [facility] Start: 02-23-1997 Annual wellness visit Annual [facility] Visit ([id number]) [facility] Start: 01-10-1987 Hepatitis A (HAV) Vaccine (optional start 19+ years) Hepatitis A (HAV) Vaccine (optional start 19+ years) [facility] Start: 01-10-1987 Hepatitis B vaccination Hepati tis B (HBV) Vaccine (1 of 3 - 19+ 3-dose series) [facility] Start: 01-10-1986 Hepatitis C screening Hepatitis C An tibody [facility] Start: 01-10-1986 Tetanus + diphtheria + acellular pertussis vaccine (product) Tdap Booster [facility] Start: 01-10-1983 HIV screening HIV Test [facility] Start: 1968 Medicare Annual Wellness (AWV) Medicare Annual Wellness (AWV) [facility] Start: 1970 Screening for malign ant neoplasm of colon [facility] Anion gap measurement [facility] Basophils [#/volume] in Blood by Automated count [facility] Basophils/100 leukocytes in Blood by Automated count [facility] Eosinophils/100 leukocytes in Blood by Automated count [facility] Erythrocyte distribution width [Ratio] by Automated count [facility] Erythrocytes [#/volu me] in Blood [facility] Hematocrit [Volume Fraction] of Blood [facility] Hemoglobin [Mass/volume] in Blood [facility] Leukocytes [#/volume ] corrected for nucleated erythrocytes in Blood by Automated coun [facility] Leukocytes [#/volume ] in Blood [facility] Lymphocytes [#/volum e] in Blood by Automated count [facility] Lymphocytes/100 leukocytes in Blood by Automated count [facility] MCH [Entitic mass] b y Automated count [facility] MCHC [Mass/volume] b y Automated count [facility] MCV [Entitic volume] by Automated count [facility] Monocytes [#/volume] in Blood by Automated count [facility] Monocytes/100 leukocytes in Blood by Automated count [facility] Neutrophils [#/volum e] in Blood by Automated count [facility] Neutrophils/100 leukocytes in Blood by Automated count [facility] Nucleated erythrocyt es [Presence] in Blood by Automated count [facility] Patient Education Know your Meds [facility] Work Phone: Patient referral [facility] Work Phone: Platelet mean volume [Entitic volume] in Blood by Automated count [facility] Platelets [#/volume] in Blood [facility] Immunizations Immunization Date Immunization Notes Care Provider [facility] 06-06-2024 zoster vaccine recombinant Ashanti Galea [facility] 03-25-2024 zoster vaccine recombinant Ashanti Galea [facility] 12-10-2023 influenza virus vaccine, unspecified formulation Ashanti Galea [facility] 12-10-2022 influenza virus vaccine, unspecified formulation Ana Maria Hsu NP Work Phone: [facility] 12-11-2021 influenza virus vaccine, unspecified formulation Ashanti Galea [facility] 12-11-2021 SARS-CoV-2 (COVID-19 ) [id number] Ashanti Galea [facility] Comment on above: Result Comment: 2024: [id number] 06-26-2021 Pfizer (12+ yrs) SARS-COV-2 (COVID-19) vaccine, mRNA, spike protein, LNP, pres. free, 30 mcg/0.3mL dose, syeda-sucrose (AET=[id number]) Ly Ruy RD Work Phone: [facility] 06-26-2021 SARS-CoV-2 mRNA ([id number]) vaccine Ashanti Galea [facility] Comment on above: Result Comment: 2024: [id number] 12-19-2020 COVID-19 Vaccine Pfi zer - Documentation Purposes Only Nallely Parada Other [employer] Other Comment on above: Result Comment: 2024: TPV3 12-19-2020 influenza, injectabl e, quadrivalent, preservative free Ly Ruy RDH Work Phone: [facility] 12-19-2020 influenza virus vaccine, unspecified formulation Ly Ruy RDH Work Phone: [facility] 03-27-2020 COVID-19 Vaccine Pfi zer - Documentation Purposes Only Nallely Parada Other [employer] Other Comment on above: Result Comment: 2024: [id number] 03-06-2020 COVID-19 Vaccine Pfi zer - Documentation Purposes Only Nallely Parada Other [employer] Other Comment on above: Result Comment: 2024: TPV50 11-30-2019 influenza virus vaccine, unspecified formulation Ashanti Galea [facility] 11-30-2019 influenza, injectabl e, quadrivalent, preservative free Ly Ruy RDH Work Phone: [facility] 12-17-2018 influenza virus vaccine, unspecified formulation Ashanti Galea [facility] 12-17-2018 influenza, injectabl e, quadrivalent, preservative free Ly Ruy RDH Work Phone: [facility] 12-02-2017 influenza virus vaccine, unspecified formulation Ashanti Galea [facility] 12-02-2017 influenza, injectabl e, quadrivalent, preservative free Ly Ruy [facility] Work Phone: [facility] 01-06-2017 influenza virus vaccine, unspecified formulation Ashanti Galea [facility] 01-06-2017 influenza, injectabl e, quadrivalent, contains preservative Ly Ruy [facility] Work Phone: [facility] 07-12-2015 tetanus and diphther ia toxoids, adsorbed, preservative free, for adult use (2 Lf of tetanus toxoid and 2 Lf of diphtheria toxoid) Ashanti Galea [facility] 07-12-2015 tetanus and diphther ia toxoids, adsorbed, preservative free, for adult use (5 Lf of tetanus toxoid and 2 Lf of diphtheria toxoid) Ly Ruy [facility] Work Phone: [facility] 12-14-2014 influenza virus vaccine, unspecified formulation Ashanti Galea [facility] 12-14-2014 influenza, injectabl e, quadrivalent, preservative free Ly Ruy RDH Work Phone: [facility] 01-10-2009 novel [id number], preservative-free, injectable Ly Ruy RD Work Phone: [facility] 01-07-2008 influenza virus vaccine, whole virus Ly Ruy [facility] Work Phone: [facility] 01-07-2008 influenza, whole Ashanti Gale a [facility] 12-08-2006 influenza virus vaccine, whole virus Ly Ruy RD Work Phone: [facility] 12-08-2006 influenza, whole Ashanti Gale a [facility] 06-25-2005 tetanus and diphther ia toxoids, adsorbed, preservative free, for adult use (2 Lf of tetanus toxoid and 2 Lf of diphtheria toxoid) Ashanti Galea [facility] 06-25-2005 tetanus and diphther ia toxoids, adsorbed, preservative free, for adult use (5 Lf of tetanus toxoid and 2 Lf of diphtheria toxoid) Lycatalina Redmond [facility] Work Phone: [facility] 01-04-1985 hepatitis B vaccine, pediatric or pediatric/adolescent dosage Ashanti Galea [facility] 07-08-1984 hepatitis B vaccine, pediatric or pediatric/adolescent dosage Ashanti Galea [facility] 06-08-1984 hepatitis B vaccine, pediatric or pediatric/adolescent dosage Ashanti Galea [facility] diphtheria, tetanus toxoids and acellular pertussis vaccine, unspecified formulation Ly Ruy [facility] Work Phone: [facility] uskyqsa-skgisikuoa-o shabnam lular pertussis (BOOSTRIX) 5-2.5-18.5 LF-MCG/0.5 injection [facility] Payers Date Payer Category Payer Self-pay [id number] 2019 Dental --Stand Alone DENTAL-MEDI CAID [id number] 2019 Medicaid [id number]. [id number] 1996 Medicare FFS MEDICARE [id number]. [id number] 1996 Medicare [id number]. 1.13.56.2.7. [id number] 1968 Unknown [id number] 2.16.840.1.853480.3.579.2.7 1968 Unknown [id number] 2.16.840.1.010180.3.579.2.7 32 1968 Unknown [id number] 2.16.840.1.286805.3.579.2.7 1968 Unknown [id number] 2.16.840.1.372903.3.579.2.5 93 1968 Unknown [id number] 2.16.840.1.617646.3.579.2.5 93 1968 Unknown [id number] 2.16.840.1.252592.3.579.2.5 93 1968 Unknown [id number] 2.16.840.1.517613.3.579.2.5 93 1968 Unknown [id number] 2.16.840.1.715903.3.579.2.7 27 1968 Unknown [id number] 2.16.840.1.576656.3.579.2.7 27 1968 Unknown [id number] 2.16.840.1.392522.3.579.2.7 27 1968 Unknown [id number] 2.840.1.080221.3.579.2.1 259 1968 Unknown [id number] 2.16.840.1.008670.3.579.2.1 259 1968 Unknown [id number] 2.16.840.1.508659.3.579.2.1 259 1968 Unknown [id number] 2.16.840.1.247345.3.579.2.1 259 1968 Unknown [id number] 2.840.1.273628.3.579.2.1 259 1968 Unknown [id number] 2.16.840.1.083829.3.579.2.1 259 1968 Unknown [id number] 2.16.840.1.325993.3.579.2.1 259 1968 Unknown [id number] 2.16.840.1.843285.3.579.2.1 259 1968 Unknown [id number] 2.16.840.1.592056.3.579.2.1 259 1968 Unknown [id number] 2.16.840.1.052348.3.579.2.1 1968 Unknown [id number] 2.16.840.1.401607.3.579.2.7 1968 Unknown [id number] 2.16.840.1.227435.3.579.2.7 1968 Unknown [id number] 2.16.840.1.149127.3.579.2.7 1968 Unknown [id number] 2.16.840.1.290969.3.579.2.7 1968 Unknown [id number] 2.16.840.1.932317.3.579.2.7 1968 Unknown [id number] 2.16.840.1.437416.3.579.2.7 1968 Unknown [id number] 2.16.840.1.499876.3.579.2.7 1968 Unknown [id number] 2.16.840.1.881236.3.579.2.7 1968 Unknown [id number] 2.16.840.1.025518.3.579.2.7 1959 Medicaid [id number] 2.16.840.1.576442.19 1959 Medicare [id number] 2.16.840.1.887242.19 Medicare [id number] Unknown [employer] [id number] Unknown [id number] 2.16.840.1.988891.3.579.2.5 93 Unknown [id number] 2.16.840.1.690565.3.579.2.5 93 Unknown [id number] 2.16.840.1.098957.3.579.2.5 93 Unknown [id number] 2.16.840.1.398768.3.579.2.5 31 Unknown [id number] 2.16.840.1.824892.3.579.2.5 31 Unknown [id number] 2.16.840.1.628205.3.579.2.5 31 Social History Date Type Detail Facility Start: 08-06-2023 End: 07-11-2024 Sex Assigned At [facility] Start: 09-24-2021 End: 08-17-2024 Tobacco smoking status MSIS Never smoked tobacco (finding) [facility] Start: 1970 Sex Assigned At Male [facility] Tobacco smoking status [facility] Tobacco smoking consumption unknown [facility] Start: 1970 Sex Assigned At Not on file [facility] Tobacco smoking status [facility] Start: 03-01-2019 End: 11-12-2022 Sex Male (finding) [facility] Start: 02-05-2023 Tobacco use and exposure Smokeless tobacco non-user [facility] Start: 08-06-2023 End: 08-01-2024 Alcoholic beverage intake Lifetime non-drinker (finding) [facility] Start: 08-06-2023 End: 07-11-2024 History of Social function [facility] Start: 08-18-2024 SDOH Follow up SDOH Follow up [facility] Work Phone: Tobacco smoking status Never [facility] Mel NEGATED: Highlighted rowStart: NINF History of tobacco use Passive smoker [facility] Medical Equipment Procedure Code Equipment Code Equipment Origin al Text Equipment Identifier Dates ORIF, fracture, ankle CANCELLOUS COARSE 7.5CC FDA Start: 09-24-2021 ORIF, fracture, ankle Orthopaedic bone screw, non-bioabsorbable, non-sterile ()[id number] FDA Start: 09-24-2021 ORIF, fracture, ankle Orthopaedic bone screw, non-bioabsorbable, non-sterile ()[id number] FDA Start: 09-24-2021 ORIF, fracture, ankle Orthopaedic fixation plate, non-bioabsorbable, sterile ()[id number] FDA Start: 09-24-2021 ORIF, fracture, ankle Orthopaedic bone screw, non-bioabsorbable, non-sterile ()[id number] FDA Start: 09-24-2021 ORIF, fracture, ankle Orthopaedic bone screw, non-bioabsorbable, non-sterile ()[id number] FDA Start: 09-24-2021 ORIF, fracture, ankle Orthopaedic bone screw, non-bioabsorbable, non-sterile ()[id number] FDA Start: 09-24-2021 ORIF, fracture, ankle Orthopaedic bone screw, non-bioabsorbable, non-sterile ()[id number] FDA Start: 09-24-2021 ORIF, fracture, ankle CANCELLOUS [...] Desired Activity /State Clinical Notes 01-10-2021 to 09-30-2024 Note Date & Type Note Facility 09-30-2024 Note Progress Note-Physic douglas Assessment/Plan 1. BPH with urinary obstruction (N40.1: Benign prostatic hyperplasia with lower urinary tract symptoms) 09/29: S/p TURP secondary to BPH w/ LUTS performed and managed by Dr. Henson -CBI - off since this a.m. -Trend labs -Pain mgt. -Education: Oral pain med regimen, I.S. and bowel regimen to avoid constipation Thank you for the opportunity to assist in the mgt. of your patient Ordered: Initial IP Consult New/Estab Pt Moderate 60 Min [id number] 2. S/P TURP (Z90.79: Acquired absence of other genital organ(s)) See above 3. Severe intellectual disabilities (F72: Severe intellectual disabilities) Per mother: Functional age of 4-5 yr at best, orientation to her and his name only + autism disorder -Chronic haloperidol, benztropine, paroxetine -Lives at [facility] -Supportive care 4. HTN (hypertension) (I10: Essential (primary) hypertension) -Amlodipine, clonidine, Nebivolol 5. HLD (hyperlipidemia) (E78.5: Hyperlipidemia, unspecified) -Statin 6. Chronic kidney disease stage 3 (N18.30: Chronic kidney disease, stage 3 unspecified) Baseline Cr 1.6 -Renal US & PVR - if Cr worsens -Trend BMP -Avoid nephrotoxic medications as much as possible -Consult nephrology: If Cr worsens 7. Seizure disorder (R56.9: Unspecified convulsions) Seizure precautions -Levetiracetam, oxcarbazepine 8. Hypothyroidism (E03.9: Hypothyroidism, unspecified) - Levothyroxine 9. 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 On deep vein thrombosis (DVT) prophylaxis (Z79.899: Other terminal clerk (current) drug therapy) Defer to urology -Nolvia, chin ji, early ambulation Orders: Basic Metabolic Panel Communication Order Physician to Nursing eGFR Hemoglobin and Hematocrit Pad Siderails -Dx and POC discussed w/ patient, nursing staff and CRM. -Disposition: June d/c from medical standpoint. This report was transcribed using voice recognition software. Every effort was made to ensure accuracy, however, inadvertently computerized coordinator cardiopulmonary services mistakes may be present. Subjective No acute events overnight. Patient is smiling and pleasant this a.m. Able state his full name and draw me a picture. Denies any pain complaints. Review of Systems Unable to complete due to intellectual disabilities Objective Vitals & Measurements T: 36.2 ???C(Oral) TMIN: 36.2 ???C(Oral) TMAX: 37 ???C(Axillary) HR: 68(Monitored) RR: 18 BP: 109/67 SpO2: 97% WT: 84.8 kg Intake & Output This visit (24 hour periods starting at 07:00 EDT) 09/30/24 * 09/29/24 09/28/24 Total Summary Intake mL -- 100 -- Output mL 250 10,500 -- Fluid Balance -250 -- Intake (3) Lactated Ringers Injection 1,000 mL mL -- 50 -- Oral Intake mL -- -- -- Sodium Chloride 0.9%, cefazolin mL -- 50 -- Total -- 100 -- Output (1) Urine Voided mL 250 10,500 -- Total 250 10,500 -- Counts (0) * This column has not completed the indicated time period. Physical Exam General: Calm, able to communicate simple basic needs, NAD Head: Normocephalic/atraumatic Eyes: Pupils equal, round, Conjunctivae and sclerae normal, HEENT: Mucous membrane moist. Tongue normal Neck: Trachea midline, neck supple, Chest: No chest wall deformity, no chest wall tenderness Lungs: CTA ryan, no wheezing, Cardio: Normal rate, apical is regular, no edema. Pulses: Normal capillary refill Abdomen: Soft, non-distended, non-tender, normal BS : In brief this a.m. CBI off per urology Musculoskeletal: No deformity or scoliosis noted. Normal ROM for age. Integumentary: Warm, dry, Extremity: No clubbing, Neurologic: Alert, oriented x self only, childlike behaviors, follows commands, Mental status: See above Lab Results HGB: 11.4 gm/dL Low (09/30/24 06:44:00) Hct: 33.6 % Low (09/30/24:44:00) Glucose Lvl: 91 mg/dL (09/30/24:44:00) BUN: 19 mg/dL (09/30/24 06:44:00) Creatinine: 1.5 mg/dL High (09/30/24 06:44:00) eGFR: 54 mL/min/1.73 m2 Low (09/30/24:44:00) BUN/Creat Ratio: 13 (09/30/24 06:44:00) Sodium Lvl: 141 mmol/L (09/30/24 06:44:00) Potassium Lvl: 4.2 mmol/L (09/30/24:44:00) Chloride: 111 mmol/L (09/30/24 06:44:00) CO2: 22 mmol/L (09/30/24 06:44:00) AGAP: 12 mEq/L (09/30/24 06:44:00) Calcium Lvl: 8.7 mg/dL Low (08/08/25 06:44:00) Diagnostic Results No qualifying data available. Attestation Case reviewed/discussed w/ Dr. Castaneda who is in agreement with POC. Problem List/Past Medical History Ongoing Acute kidney injury Autistic disorder Chronic kidney disease stage 3 Depression Hypothyroidism OCD (obsessive compulsive disorder) Recurrent falls Seizure disorder Historical No qualifying data Medications Inpatient acetaminophen 325 mg Tab, 650 mg= 2 tab(s), Oral, q4hr amLODIPine 10 mg Tab, 10 mg= 1 tab(s), Oral, Daily atorvastatin 40 mg T (more content not included)... [facility] Comment on above: Result Comment: Elec tronically Signed By: Chacha DIAZ\.br\Date and Time Signed: 09/30/24 12:33 EDT\.br\Electronically Co-Signed By: Evelio Castaneda DO\.br\Date and Time Co-Signed: 09/30/24 17:52 EDT 09-29-2024 Note Consultation Note Chief Complaint BPH with LUTS Reason for Consultation - Medical Mgt. History of Present Illness 54-year-old male with PMH of: Intellectual disabilities w/ functional age of 4???5-year-old, HTN, HLD, CKD, seizure disorder, hypothyroidism, tuberous sclerosis, BPH. - Patient presented to [facility] to the care of Dr. Henson and underwent TURP procedure on 09/29/2024. - Consult to hospitalist team for medical management. Review of Systems Unable to complete due to intellectual disabilities Physical Exam Vitals & Measurements T: 36.7 ???C(Temporal Artery) TMIN: 36.3 ???C(Temporal Artery) TMAX: 36.7 ???C(Temporal Artery) HR: 68(Monitored) RR: 18 BP: 131/82 SpO2: 100% General: Calm, able to communicate simple basic needs, NAD Head: Normocephalic/atraumatic Eyes: Pupils equal, round, Conjunctivae and sclerae normal, HEENT: Mucous membrane moist. Tongue mildly furrowed Neck: Trachea midline, neck supple, Chest: No chest wall deformity, no chest wall tenderness Lungs: CTA ryan, no wheezing, Cardio: Normal rate, apical is regular, no edema. Pulses: Normal capillary refill Abdomen: Soft, non-distended, non-tender, normal BS : + CBI at high flow w/ clear fluid return Musculoskeletal: No deformity or scoliosis noted. Normal ROM for age. Integumentary: Warm, dry, Extremity: No clubbing, Neurologic: Alert, oriented x self only, childlike behaviors, follows commands, Mental status: See above Assessment/Plan Awaiting med rec for all dx. 1. BPH with urinary obstruction (N40.1: Benign prostatic hyperplasia with lower urinary tract symptoms) 09/29: S/p TURP secondary to BPH w/ LUTS performed and managed by Dr. Henson + CBI -Trend labs -Pain mgt. -Education: Oral pain med regimen, I.S. and bowel regimen to avoid constipation Thank you for the opportunity to assist in the mgt. of your patient 2. S/P TURP (Z90.79: Acquired absence of other genital organ(s)) See above 3. Severe intellectual disabilities (F72: Severe intellectual disabilities) Per mother: Functional age of 4-5 yr at best, orientation to her and his name only + autism disorder -Lives at [facility] -Supportive care 4. HTN (hypertension) (I10: Essential (primary) hypertension) 5. HLD (hyperlipidemia) (E78.5: Hyperlipidemia, unspecified) 6. Chronic kidney disease stage 3 (N18.30: Chronic kidney disease, stage 3 unspecified) Baseline Cr 1.6 -Renal US & PVR - if Cr worsens -Trend BMP -Avoid nephrotoxic medications as much as possible -Consult nephrology: If Cr worsens 7. Seizure disorder (R56.9: Unspecified convulsions) Seizure precautions 8. Hypothyroidism (E03.9: Hypothyroidism, unspecified) 9. 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 On deep vein thrombosis (DVT) prophylaxis (Z79.899: Other halfway (current) drug therapy) Defer to urology -SCDs, chin ji, early ambulation Orders: Communication Order Physician to Nursing Pad Siderails -Dx and POC discussed w/ patient, nursing staff and CRM. This report was transcribed using voice recognition software. Every effort was made to ensure accuracy, however, inadvertently computerized coordinator cardiopulmonary services mistakes may be present. Attestation Case reviewed/discussed w/ Dr. Castaneda who is in agreement with POC. Problem List/Past Medical History Ongoing Acute kidney injury Autistic disorder Chronic kidney disease stage 3 Depression Hypothyroidism OCD (obsessive compulsive disorder) Recurrent falls Seizure disorder Historical No qualifying data Procedure/Surgical History Ankle fracture, Ankle fracture, Open reduction and internal fixation of fracture. Medications Inpatient acetaminophen 325 mg Tab, 650 mg= 2 tab(s), Oral, q4hr Colace 100 mg Cap, 100 mg= 1 cap(s), Oral, BID hydrALAZINE 20 mg/mL Inj, 10 mg= 0.5 mL, IV Push, q6hr, PRN Lactated Ringers IV Ami 1000 mL 1,000 mL, 1000 mL, IV Levsin 0.125 mg SL Tab, 0.125 mg= 1 tab(s), SubLingual, TID, PRN NS 1000 mL Soln-IV 1,000 mL, 1000 mL, IV Zofran 4 mg/2 mL Injection, 4 mg= 2 mL, IV Push, q6hr, PRN Home amLODIPine 10 mg Tab, 10 mg= 1 tab(s), Oral, Daily atorvastatin 40 mg Tab, 40 mg= 1 tab(s), Oral, Bedtime benztropine 1 mg Tab, 1 mg= 1 tab(s), Oral, TID cloNIDine 0.2 mg Tab, 0.2 mg= 1 tab(s), Oral, TID Daily Feli oral tablet, 1 tab(s), Oral, Daily haloperidol 5 mg Tab, 5 mg= 1 tab(s), Oral, TID levetiracetam 500 mg Tab, 500 mg= 1 tab(s), Oral, BID levothyroxine 137 mcg (0.137 mg) Tab, 137 mcg= 1 tab(s), Oral, Daily Nebivolol 5 mg oral tablet, 5 mg= 1 tab(s), Oral, Daily oxcarbazepine 600 mg Tab, 600 mg= 1 tab(s), Oral, BID Oyster Shell Calcium with Vitamin D 500 mg-200 intl units oral tablet, 1 tab(s), Oral, BID paroxetine 40 mg Tab, 40 mg= 1 tab(s), Oral, BID Senna-Time 8.6 mg oral tablet, 8.6 mg= 1 tab(s), Oral, Once a day (at bedtime) Allergies pertussis vaccines Social History Tobacco (more content not included)... [facility] Comment on above: Result Comment: Elec tronically Signed By: Chacha DIAZ\.br\Date and Time Signed: 09/29/24 16:11 EDT\.br\Electronically Co-Signed By: Chacha DIAZ\.br\Date and Time Co-Signed: 09/29/24 16:11 EDT\.br\Electronically Co-Signed By: Evelio Castaneda DO\.br\Date and Time Co-Signed: 09/29/24 19:07 EDT 09-08-2024 Note Patient Education Urology Acute Urinary Retention, Male Acute urinary retention is a condition in which a person is unable to pass urine or can only pass a little urine. This condition can happen suddenly and last for a short time. If left untreated, it can become long-term (chronic) and result in kidney damage or other serious complications. What are the causes? This condition may be caused by: ??? Obstruction or narrowing of the tube that drains the bladder (urethra). This may be caused by surgery, problems with nearby organs, or injury to the bladder or urethra. ??? Problems with the nerves in the bladder. ??? Tumors in the area of the pelvis, bladder, or urethra. ??? Certain medicines. ??? Bladder or urinary tract infection. ??? Constipation. What increases the risk? This condition is more likely to develop in older men. As men age, their prostate may become larger and may start to press or squeeze on the bladder or the urethra. Other chronic health conditions can increase the risk of acute urinary retention. These include: ??? Diseases such as multiple sclerosis. ??? Spinal cord injuries. ??? Diabetes. ??? Degenerative cognitive conditions, such as delirium or dementia. ??? Psychological conditions. A man may hold his urine due to trauma or because he does not want to use the bathroom. What are the signs or symptoms? Symptoms of this condition include: ??? Trouble urinating. ??? Pain in the lower abdomen. How is this diagnosed? This condition is diagnosed based on a physical exam and your medical history. You may also have other tests, including: ??? An ultrasound of the bladder or kidneys or both. ??? Blood tests. ??? A urine analysis. ??? Additional tests may be needed, such as a CT scan, MRI, and kidney or bladder function tests. How is this treated? Treatment for this condition may include: ??? Medicines. ??? Placing a thin, sterile tube (catheter) into the bladder to drain urine out of the body. This is called an indwelling urinary catheter. After it is inserted, the catheter is held in place with a small balloon that is filled with sterile water. Urine drains from the catheter into a collection bag outside of the body. ??? Behavioral therapy. ??? Treatment for other conditions. If needed, you may be treated in the hospital for kidney function problems or to manage other complications. Follow these instructions at home: Medicines ??? Take vgyn-voa-japdlet and prescription medicines only as told by your health care provider. Avoid certain medicines, such as decongestants, antihistamines, and some prescription medicines. Do not take any medicine unless your health care provider approves. ??? If you were prescribed an antibiotic medicine, take it as told by your health care provider. Do not stop using the antibiotic even if you start to feel better. General instructions ??? Do not use any products that contain nicotine or tobacco. These products include cigarettes, chewing tobacco, and vaping devices, such as e-cigarettes. If you need help quitting, ask your health care provider. ??? Drink enough fluid to keep your urine pale yellow. ??? If you have an indwelling urinary catheter, follow the instructions from your health care provider. ??? Monitor any changes in your symptoms. Tell your health care provider about any changes. ??? If instructed, monitor your blood pressure at home. Report changes as told by your health care provider. ??? Keep all follow-up visits. This is important. Contact a health care provider if: ??? You have uncomfortable bladder contractions that you cannot control (spasms). ??? You leak urine with the spasms. Get help right away if: ??? You have chills or a fever. ??? You have blood in your urine. ??? You have a catheter and the following happens: ? Your catheter stops draining urine. ? Your catheter falls out. Summary ??? Acute urinary retention is a condition in which a person is unable to pass urine or can only pass a little urine. If left untreated, this condition can result in kidney damage or other serious complications. ??? An enlarged prostate may cause this condition. As men age, their prostate gland may become larger and may press or squeeze on the bladder or the urethra. ??? Treatment for this condition may include medicines and placement of an indwelling urinary catheter. ??? Monitor any changes in your symptoms. Tell your health care provider about any changes. This information is not intended to replace advice given to you by your health care provider. Make sure you discuss any questions you have with your health care provider. Document Revised: 10/31/2020 Document Reviewed: 10/31/2020 [employer] Patient Education ? 2023 [employer]. [facility] 08-19-2024 Hospital Discharg e instructions Additional Instructions [facility] to manage care: - Full code - BMP in 3-5 days, results to PCP - Maintain indwelling martini catheter to drainage or leg bag, routine care per protocol - follow-up with Urology as scheduled - Turn and reposition every 2 hours and as needed - Offload heels q2h - Maintain seizure precautions per facility protocol, hx of seizures - [facility] Work Phone: 08-17-2024 Evaluation note Diagnosis Onset Date Resolution SHANON (acute kidney injury) acute August 17, 2024 1:19am Chronic kidney disease acute 2024 1:19am Cystitis acute August 17 1:19am 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 Hyperkalemia acute August 17, 025 1:19am Hypertension acute August 17 025 1:19am Hypothyroidism acute August 17, 2024 1:19am Metabolic acidosis acute July 252024 1:19am Seizure disorder acute July 1:19am 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 1:19am [facility] Work Phone: 1(594) 817-750806-25-2025 Evaluation note* Diagnosis Onset Date Resolution Status Admit Date SHANON (acute kidney injury) resolved August 17, 2024 1:19am Chronic kidney disease resolved 2024 1:19am Cystitis resolved August 17 1:19am Frontal lobe syndrome resolved Jul 1:19am Hyperkalemia resolved August 17, 025 1:19am Hypertension resolved August 17, 025 1:19am Hypothyroidism resolved August 17, 2024 1:19am Metabolic acidosis resolved July 252024 1:19am Seizure disorder resolved July 1:19am Tuberous sclerosis resolved July 252024 1:19am [facility] Work Phone: 1(430) 848-327406-09-2025 History of Present illness Narrative* Glenn Brown, [...] p.r.n. Glenn Brown DPM documented in this encounterCenterpoint [facility] [id number] History of Present illness Narrative* Glenn Brown [...] weeks Glenn Brown DPM documented in this encounterCenterpoint Medical [id number] History of Present illness Narrative* Glenn Brown [...] boot Glenn Brown DPM documented in this encounterCenterpoint Medical CenterFkrcdczxua96-69-3077 NoteHNO ID: [id number] Author: SUMEET CALI MD Service: ? Author [...] visit. Either the patient or their legal benefits representative has been informed of the risks [...] anxiety, (10-14) moderate anxiety, (15-21) severe anxiety [place] Cognitive Assessment (MoCA) No data to display [...] evening, and 3 tablets at bedtime 0 efwzkuj-blkfyarlr-xesffwb D3 (OYSTER SHELL CALCIUM-VITAMIN D) 500 mg(1,250mg) [...] 1 MG TAB ta (more content not included)...[facility] 05-27-2024 History of Present illness Narrative* Glenn [...] has poor historian and is resident at [facility]. He had recent CT scan at [facility] and presents today for follow-up. Allergies: [...] sprain Glenn Brown DPM documented in this encounterCenterpoint Medical [id number] History of Present illness Narrative* Glenn Brown [...] future. Glenn Brown DPM documented in this encounterCenterpoint Medical CenterKoqzlfytea74-84-7832 History of Present illness Narrative* Glenn Brown [...] of Matias Brown DPM documented in this encounterCenterpoint Medical CenterLkgqezhlmv97-55-3099 NoteHNO ID: [id number] Author: SUMEET CALI MD Service: ? Author [...] visit. Either the patient or their legal benefits representative has been informed of the risks [...] request it faxed to them. Fax number: [phone] (direct fax). Risks and benefits of the [...] evening, and 3 tablets at bedtime 0 zitilnk-dibxhewwo-vbrizbf D3 (OYSTER SHELL CALCIUM-VITAMIN D) 500 mg(1,250mg) [...] once daily. cloNIDine 0.1 (more content not included)...[facility]06-26-2024 Evaluation + Plan note Diagnostic Tests Pending * HgbA1c 08/19/23 * T3 Free 08/19/23 * Keppra Lvl 08/19/23 * Lamotrigine Level 08/19/23 [facility]01-03-2024 Evaluation + Plan note Diagnostic Tests Pending * T3 Free 02/25/23 [facility]09-20-2023 Evaluation + Plan note Diagnostic Tests Pending * PSA Screen, Total 11/12/22 [facility]11-14-2022 Evaluation note* Encounter Date Diagnosis Assessment Notes Treatment Notes Treatment Clinical Notes Dec, Displaced fracture of lateral malleolus of right fibula, subsequent encounter for closed fracture with routine healing (ICD-10 - S82.61XD) Alethea is here today for follow-up about 12 weeks s/p right ankle ORIF. He is doing well. He is currently residing at [facility]. There is no complaints overall. Ankle is [...] Other specified postprocedural states (ICD-10 - Z98.890) [employer] Other 10-12-2022 History of Present illness Narrative* Simi Edwards DDS - 12/04/2021 11:03 AM EDT ----- Thursday, December 04, 2021 at 11:22:04 AM ----- ----- Provider: Aki Redmond Hygienist -- Clinic: [facility] ----- [facility], Pt is ready for tx. Pt presented with caries Radiograph taken today: none Discussed the medical necessity of the problem with the pt. Instructions given to pt. Caregiver understood the situation and is okay with medications for today. Pt will come back shouldthings get worse. Guardianship: PARENTS - Nabila Girard (Kathy)[place] [address] / Email: [email or web address] Communicated with caregiver that the pt was placed on the OR list and we will call with appt. Limited exam completed by Dr. Noel STEPHENS. OR ----- Signed on Saturday, December 04, 2021 at 11:51:43 AM ----- ----- Provider: Manny Myers DDS -- Clinic: [facility] ----- documented in this [id number] Evaluation note* Encounter Date Diagnosis Assessment Notes Treatment Notes Treatment Clinical Notes Oct, Displaced fracture of lateral malleolus of right fibula, subsequent encounter for closed fracture with routine healing (ICD-10 - S82.61XD) Alethea is here today for first follow-up 8 weeks s/p right ankle ORIF. He is doing well. He is currently residing at [facility]. There is no complaints overall. His incision [...] fracture with routine healing (ICD-10 - S82.392D) [employer] Other 08-24-2022 Evaluation note* Encounter Date Diagnosis Assessment Notes Treatment Notes Treatment Clinical Notes Sep, Displaced fracture of lateral malleolus of right fibula, subsequent encounter for closed fracture with routine healing (ICD-10 - S82.61XD) Alethea is here today for first follow-up 3 weeks s/p right ankle ORIF. He is doing well. He is currently residing at [facility]. There is no complaints overall. His incision [...] as documented in the electronic medical record. [employer] Other 08-24-2022 NoteCast material is in place limiting evaluation. Hardware fixation involving the distal fibula withWattblock [employer] Other 07-27-2022 NotePROCEDURE: XR TIB_FIB RT 2V [...] Electronically authenticated by: SANDY DÍAZ Date: 2021-09-18 17:14[facility]07-27-2022 NotePROCEDURE: XR ANKLE RT MIN [...] Electronically authenticated by: SANDY DÍAZ Date: 2021-09-18 16:44[facility]07-27-2022 NotePROCEDURE: XR ANKLE LT MIN [...] Electronically authenticated by: SANDY DÍAZ Date: 2021-09-18 15:33[facility]06-22-2022 Evaluation note* Encounter Date Diagnosis Assessment Notes Treatment Notes Treatment Clinical Notes Jul, Pulmonary cavitary lesion (ICD-10 - J98.4) Jul, Tuberous sclerosis (ICD-10 - Q85.1) [employer] Other 12-03-2021 NoteSurgical Attestation: I have reviewed the patient's History and Physical Examination. I have personally seen and evaluated the patient, repeating narayanan portions. There is no significant interval change. Surgery is still indicated. Yes Consent reviewed and signed by patient/family: Yes Operative site verified and marked: site verified but not marked as not anatomically possible Carolyn López DDS 01/25/2021 9:50 AMThe [email or web address] [id number] NotePatient is vaccinated for COVID-19: Pfizer on 03/06/2020 AND 03/27/2020. Patient does not require pre-op COVID testing per current guidelines.The [facility] [email or web address].com SystemEvaluation + Plan note Future Appointments Appointment Date:09/07/2024 02:10:00 PM Scheduled Provider:Ashanti Gaspar Location:[facility] Appointment Type:URO New Patient [facility] Evaluation + Plan note Future Appointments Appointment Date:09/28/2024 12:30:00 PM Scheduled Provider:Radha Kirkland PA-C [facility] Type:URO Office Visit [facility] Evaluation noteNo assessment information [facility] Work Phone: Evalunjjku noteNo InformationNobothwell regional health center [employer] Other Evaluation note* Diagnosis Seizure disorder (CMS/HCC)- [...] History Seizure Disorder Medical History tuberous Sclerosis [employer] Other History general Narrative - Reported* Type Description Date Medical History Unspecified intellectual disabil ities Medical History autism Medical History ADHD Medical History Seizure Disorder Medical History tuberous Sclerosis Surgical History ORIF RT lateral malleolus fx Hospitalization History see above [employer] Other Hospital course Narrative No data available for this section [facility] No data available for this section [facility]Progress note No data available for this section [facility] HospitalReason for referral (narrative)No reason for referral information availableParkview Health [facility] Work Phone: Summary Purpose Family History No [...] Tuberous sclerosis August 17, 2024 1:19 am Chief Complaint Admit Date Unknown August 14, 2024 6:08 pm Unknown August 16, 2024 6:10 pm SHANON, CKD, Hyperkalemia August 17, 2024 1 :19am 6 Month Follow up September 21, 2024 1:38 pm Additional Source Comments (unrecognized sect ion and [...] section and content) DATE CREATED AUTHOR 08/19/2017 [facility] DATE CREATED AUTHOR AUTHOR'S ORGANIZ ATION 07/30/2018 [facility] DATE CREATED AUTHOR AUTHOR'S ORGANIZ ATION 12/15/2021 [facility] [facility] DATE CREATED AUTHOR AUTHOR'S ORGANIZ ATION 06/01/2022 [facility] DATE CREATED AUTHOR AUTHOR'S ORGANIZ ATION 08/21/2023 [facility] DATE CREATED AUTHOR AUTHOR'S ORGANIZ ATION 08/22/2023 [facility] DATE CREATED AUTHOR AUTHOR'S ORGANIZ ATION 08/28/2023 [facility] DATE CREATED AUTHOR AUTHOR'S ORGANIZ ATION 05/31/2024 [facility] DATE CREATED AUTHOR AUTHOR'S ORGANIZ ATION 08/01/2024 [facility] DATE CREATED AUTHOR AUTHOR'S ORGANIZ ATION 09/03/2024 [facility] DATE CREATED AUTHOR AUTHOR'S ORGANIZ ATION 09/28/2024 [facility] DATE CREATED AUTHOR AUTHOR'S ORGANIZ ATION 10/01/2024 [facility] DATE CREATED AUTHOR AUTHOR'S ORGANIZ ATION 10/02/2024 [facility] REASON FOR VISIT (unrecogniz ed section [...] Active Nallely Parada MD Attending Provider Active Professional Driver Relationship Specialty Start Date End Date Unallocated, Angely Ann MD [address] [place] [address] PCP - General Family Medicine 02/05/23 Professional Driver Relationship Specialty Start Date End Date Go Foster MD [address] [place] [address] PCP - General Family Medicine 02/09/24 Sue Patrick DO [address] [place] [id number] Referring Physician Neurology 02/09/24 Professional Driver Relationship Specialty Start Date End Date Go Foster MD [facility] [address] [place] [address] PCP - General Family Medicine 02/09/24 Sue Patrick DO [address] [place] [address] Referring Physician Neurology 02/09/24 Professional Driver Relationship Specialty Start Date End Date Go Foster MD [address] [place] [address] PCP - General Family Medicine 02/09/24 Sue Patrick DO [address] [place] [address] Referring Physician Neurology 02/09/24 Professional Driver Relationship Specialty Start Date End Date Go Foster MD [address] [place] [address] PCP - General Family Medicine 02/09/24 Sue Patrick DO [address] [place] [address] Referring Physician Neurology 02/09/24 Professional Driver Relationship Specialty Start Date End Date Go Foster MD [address] [place] [address] PCP - General Family Medicine 02/09/24 Sue Patrick DO [address] [place] [address] Referring Physician Neurology 02/09/24 Professional Driver Relationship Specialty Start Date End Date Go Foster MD [address] [place] [address] PCP - General Family Medicine 02/09/24 Sue Patrick DO [address] [place] [address] Referring Physician Neurology 02/09/24 Professional Driver Relationship Specialty Start Date End Date Go Foster MD [address] [place] [address] PCP - General Family Medicine 02/09/24 Seu Patrick DO [address] [place] [address] Referring Physician Neurology 02/09/24 Team Status: Inactive [...] Denise Marin MD Other Provider Active Start: une 2024 DARA Julien Other Provider Active Start: August 17, 2024 Clint Brizuela MD Attending Provider Active Start : August 17, 2024 Clint Brizuela MD Other Provider Active Start: 2024 Luisa Santizo MD Other Provider Active Start: 2024 Team Status: Inactive Member Role Status Dates Go Foster DO Primary Care Provider Active Start: September 21, 2024 End: September 21, 2024 Ana Maria Hsu APRN Attending Provider Active Start: September 21, 2024 End: September 21, 2024 Goals (unrecognized section and content) Goals [...] BE BASED ON THE PRIMARY CLINICAL RECORDS. [employer] provides no warranty or guarantee of the accuracy or completeness of information in this document.
[2024-10-04 14:57] LABS: Glucose Urine UA NEGATIVE (NEGATIVE)
[2024-10-04 15:09] LABS: Cast Seen? NONE SEEN #/LPF (NONE SEEN); Crystals Seen? None Seen #/HPF (None Seen); Urine Culture Indicated NO
== END 2024-10-04 13:49 | disposition home or self-care (01) ==
LOC: LAB 13:48
PROVIDERS: PCP Family Medicine; Visit Provider Family Medicine
DX: R35.0 Frequency of micturition (principal); R30.0 Dysuria; R32 Unspecified urinary incontinence
CPT/HCPCS: 81001

== ENCOUNTER 2025-01-11 12:23 | Outpatient (OUT) | payer MEDICARE, MEDICAID, SELFPAY ==
--- OUTSIDE RECORDS SUMMARY | 2024-09-28 04:00 | XMS_ITS ---
Author Organization [facility] Address [address] [address] Care Team Providers Care Stakes Player Name Role Phone Dr. Panda Rivera Primary Care Provider Yolanda Harley [phone] REASON FOR VISIT FILLING Encounters Encounter Location Date Provider Diagnosis [facility] [address] [address] 09/28/2024 Yolanda Harley Plan Of Treatment Next Appt Details Provider Name:Saloni Montero, 07/2025 10:00:00 AM, [address], [place], [address], Provider Name:Saloni Montero, 10:00:00 AM, [address], [place], [address], Provider Name:Brianna Eduard , 05/30/2025 11:15:00 AM, [address], [place], [address], Progress Notes * ALETHEA LEI DDOB:1970 (55 yo M)Acc No.[id number]:09/28/2024 Patient:?ALETHEA LEI :?Yolanda HarleyDOB:1970???Age:54 Y???Sex:Male Date:09/28/2024Phone:[phone]:[address] [facility] [address], [place] [address], [place]Zsi:Dr. Panda Rivera Subjective: * Chief Complaints: * F ILLING * Electronic signature of Yolanda Harley DMD on 2025 at 12:31 PM ESTSign off status: Pending * Provider: Юлия Harley Date: 0 09/28/2024 Generated for Printing/Faxing/eTransmitting on:?2025 12:31 PM EST
--- OUTSIDE RECORDS SUMMARY | 2024-11-23 06:30 | XMS_ITS ---
Author Organization [facility] Address [address] [address] Care Team Providers Care Service Desk Agent Name Role Phone Dr. Panda Rivera Primary Care Provider [phone] Carmela Montero Saloni Graham [phone] REASON FOR VISIT FILLING Encounters Encounter Location Date Provider Diagnosis [facility] [address] [place] [address] 11/23/2024 Saloni Montero Plan Of Treatment Next Appt Details Provider Name:Saloni Kylah, 07/2025 10:00:00 AM, [address], [place], [address], Provider Name:Saloni Yi, 10:00:00 AM, [address], [place], [address], Provider Name:Brianna Chapa , 05/30/2025 11:15:00 AM, [address], [place], [address], Progress Notes * ALETHEA LEI DDOB:1970 (55 yo M)Acc No.[id number]:11/23/2024 Patient:?ALETHEA LEI :?Saloni MonteroDOB:1970???Age:54 Y???Sex:MaleDate: 11/23/2024Phone:[phone]:[address], [place], [place] Pcp:Dr. Panda Rivera Subjective: * Chief Complaints: * F ILLING * Electronic signature of Saloni Montero , [phone] on 2025 at 12:29 PM ESTSign off status: Pending * Provider: Cortez Montero Date: Generated for Printing/Faxing/eTransmitting on:?2025 12:29 PM EST
--- OUTSIDE RECORDS SUMMARY | 2024-11-25 06:30 | XMS_ITS ---
Author Organization [facility] Address [address] [address] Care Team Providers Care Muck Boss Name Role Phone Dr. Panda Rivera Primary Care Provider [phone] Carmela Montero Saloni Graham [phone] REASON FOR VISIT FILLING Encounters Encounter Location Date Provider Diagnosis [facility] [address] [place] [address] 11/25/2024 Saloni Montero Plan Of Treatment Next Appt Details Provider Name:Saloni Kylah, 07/2025 10:00:00 AM, [address] [place], [address], Provider Name:Saloni Yi, 10:00:00 AM, [address] [place], [address], Provider Name:Brianna Chaap , 05/30/2025 11:15:00 AM, [address] [place], [address], Progress Notes * ALETHEA LEI DDOB:1970 (55 yo M)Acc No.[id number]:11/25/2024 Patient:?ALETHEA LEI :?Saloni MonteroDOB:1970???Age:54 Y???Sex:MaleDate: 11/25/2024Phone:[phone]:[address], [place], [place] Pcp:Dr. Panda Rivera Subjective: * Chief Complaints: * F ILLING * Electronic signature of Saloni Montero , [phone] on 2025 at 12:31 PM ESTSign off status: Pending * Provider: Cortez Montero Date: Generated for Printing/Faxing/eTransmitting on:?2025 12:31 PM EST
--- OUTSIDE RECORDS SUMMARY | 2024-11-29 05:40 | XMS_ITS ---
Author Organization [facility] Servic es Address [address] [address] Care Team Providers Care Line Maintainer Section Name Role Phone Dr. Panda Rivera Primary Care Provider [phone] Brianna Serrato [phone] REASON FOR VISIT PROPHY Encounters Encounter Location Date Provider Diagnosis [facility] [address] [place] [address] 11/29/2024 Brianna Chapa Plan Of Treatment Next Appt Details Provider Name:Saloni Montero, 07/2025 10:00:00 AM, [address] [place], [address], Provider Name:Saloni Montero, 10:00:00 AM, [address], [place], [address], Provider Name:Brianna Chapa , 05/30/2025 11:15:00 AM, [address] [place], [address], Progress Notes * ALETHEA LEI DDOB:1970 (55 yo M)Acc No.[id number]:11/29/2024 Patient:?ALETHEA LEI :?Brianna ChapaDOB:1970???Age:54 Y???Sex:Male Date:11/29/2024Phone:[phone]:[address], [place] [address], [place]Gir:Dr. Panda Rivera Subjective: * Chief Complaints: * P ROPHY * Electronic signature of Brianna Chapa on 2025 at 12:30 PM ESTSign off status: Pending * Provider: Roselyn Chapa Date: Generated for Printing/Faxing/eTransmitting on:?2025 12:30 PM EST
--- OUTSIDE RECORDS SUMMARY | 2024-12-28 09:33 | XMS_ITS | Encounter Summary ---
Author Organization [facility] Address [address] [place] [address] [place] [id number] Care Team Providers Care Casting Machine Operator Helper Name Role Phone Unavailable Primary Care Provider Unavailabl e Reason for Referral * Diagnostic X-Ray (Routine) - ClosedSpecialtyDiagnoses / ProceduresReferred By ContactReferred To ContactRadiology Diagnoses Displ spiral fx shaft of r tibia, init for opn fx type I/2 Procedures XR TIBIA RIGHT 2 VIEWS Sarah Amaya PA-C [address] [place] [address] Phone: tel: fax: [facility] DIAGNOSTIC RADIOLOGY [address] [place] [address] [place] [address] Phone: tel: Referral IDStatusReasonStart DateExpiration DateVisits RequestedVisits [id number]/[id number]/5/[id number] Reason for Visit * Diagnostic X-Ray (Routine) - ClosedSpecialtyDiagnoses / ProceduresReferred By ContactReferred To ContactRadiology Diagnoses Displ spiral fx shaft of r tibia, init for opn fx type I/2 Procedures XR TIBIA RIGHT 2 VIEWS Sarah Amaya PA-C [address] [place] [address] Phone: tel: fax: [facility] DIAGNOSTIC RADIOLOGY [address] [place] [address] [place] [address] Phone: tel: Referral IDStatusReasonStart DateExpiration DateVisits RequestedVisits [id number]/ Encounter Details DateTypeDepartmentCare Team (Latest Contact Info)Pwxzyxbrfqd52/05/2025 9:33 AM EST - 12/28/2024 11:59 PM ESTHospital Encounter [facility] Diagnostic Radiology [address] [place] [address] Displ spiral fx shaft of r tibia, init for opn fx type I/2 Discharge Disposition: HOV Discharge Social History Tobacco UseTypesPacks/DayYears UsedDateSmoking Tobacco: Never AssessedSex and Gender InformationValueDate RecordedSex Assigned at BirthNot on fileLegal Sex Male03/01/2019 1:46 PM ESTGender IdentityNot on fileSexual OrientationNot on filedocumented as of this encounter Medications at Time of Discharge MedicationSigDispense QuantityRefillsLast FilledStart DateEnd Date oxyCODONE (OXYIR) 5 MG capsule Take 5 mg by mouth every 6 hours as needed for Pain. hydrOXYzine pamoate (Vistaril) 25 MG capsule Take 25 mg by mouth 3 times daily as needed for Itching. Sennosides (Senna) 8.6 MG CAPS Take by mouth. tamsulosin (FLOMAX) 0.4 MG capsule Take 0.4 mg by mouth daily. aspirin EC 81 MG tablet Take 1 Tablet by mouth 2 times a day. 84 Tablet 11/19/2024 PARoxetine (PAXIL) 30 MG tablet Take 2 Tablets by mouth at bedtime. 60 Tablet 11/18/2024 haloperidol (HALDOL) 10 MG tablet Take 10 mg by mouth every evening. nebivolol (BYSTOLIC) 5 MG TABS tablet Take 5 mg by mouth daily.08/17/2024 levothyroxine (SYNTHROID) 137 MCG tablet Take 137 mcg by mouth daily.11/09/2024 levETIRAcetam (KEPPRA) 500 MG tablet Take 500 mg by mouth 2 times daily.01/27/2023 haloperidol (HALDOL) 5 MG tablet Take 15 mg by mouth 2 times a day.11/09/2024 amLODIPine (NORVASC) 10 MG tablet Take 10 mg by mouth daily.09/07/2024 Calcium Carb-Cholecalciferol (Oyster Shell Calcium w/D) 500-5 MG-MCG TABS Take 1 Tablet by mouth 2 times daily.01/27/2023 atorvastatin (LIPITOR) 40 mg tablet Take 40 mg by mouth daily.documented as of this encounter Plan of Treatment DateTypeDepartmentCare Team (Latest Contact Info)Dauzwuhqsjr41/19/2025 10:30 AM ESTOffice Visit [facility] Oral Surgery [address] [place] [address] Blas Vergara, DMD [address] [facility] [place], [place] [phone] 02/15/2025 9:45 AM ESTOffice Visit [facility] Orthopedics [address] [place], [place] [phone] Sarah Amaya PA-C [address] [place] [phone] 04/20/2025 10:00 AM ESTOffice Visit [facility] Dent[facility] [address] [place] [address] Jessica Wade RDH [address] [place], [place] [phone] documented as of this encounter Procedures Procedure NamePriorityDate/TimeAssociated DiagnosisCommentsXR TIBIA RIGHT 2 OGCLAVfhllyq81/05/2025 10:11 AM EST Displ spiral fx shaft of r tibia, init for opn fx type I/2 documented in this encounter Results * XR TIBIA RIGHT 2 VIEWS (12/28/2024 10:11 AM EST)Anatomical RegionLaterality ModalityXR Right Lower Extremity, Lower LegRightComputed RadiographySpecimen (Source)Anatomical Location / LateralityCollection Method / VolumeCollection TimeReceived Time12/30/2024 1:38 PM EST Narrative 12/30/2024 1:46 PM EST EXAMINATION: XR TIBIA RIGHT 2 VIEWSPRO/RT 12/28/2024 10:11 AM CLINICAL HISTORY: f/u ASSOCIATED DIAGNOSIS: Displ spiral fx shaft of r tibia, init for opn fx type I/2 ORDERING PROVIDER: SARAH AMAYA TECHNOLOGISTS NOTE: COMPARISON: December 06, 2024 FINDINGS: 4 radiographs are performed of the right tibia and fibula. Redemonstrated is a long intramedullary nail within the tibia for fixation of a comminuted fractureinvolving the distal shaft. There are 2 proximal interlocking screws along the intramedullary nail of the right proximal tibia with 3 fixation screws identified along the distal portion of the nail. There has been prior plate fixation of the distal fibula with plate and screws identified. Fracture l bhakti persist. Spiral fracture involves the proximal fibular neck. The alignment is maintained as compared to the earlier study. There is minimal periosteal reaction identified at the site of the fibular fracture. No significant periosteal reaction is noted along the comminuted tibial fracture. There is a IMPRESSION: ?? No change in the alignment of the previously described fractures involving the right tibia and fibula. Hardware appears intact. Right tibia and fibula MACRO: None Procedure Note Lito Baldwin MD - 12/30/2024 EXAMINATION: XR TIBIA RIGHT 2 VIEWSPRO/RT 12/28/2024 10:11 AM CLINICAL HISTORY: f/u ASSOCIATED DIAGNOSIS: Displ spiral fx shaft of r tibia, init for opn fxtype I/2 ORDERING PROVIDER: SARAH AMAYA TECHNOLOGISTS NOTE: COMPARISON: December 06, 2024 FINDINGS: 4 radiographs are performed of the right tibia and fibula. Redemonstrated is a long intramedullary nail within the tibia for fixationof a comminuted fracture involving the distal shaft. There are 2 proximalinterlocking screws along the intramedullary nail of the right proximaltibia with 3 fixation screws identified along the distal portion of thenail. There has been prior plate fixation of the distal fibula with plateand screws identified. Fracture lines persist. Spiral fracture involves the proximal fibular neck. The alignment is maintained as compared to the earlier study. There isminimal periosteal reaction identified at the site of the fibularfracture. No significant periosteal reaction is noted along the comminutedtibial fracture. There is a IMPRESSION: No change in the alignment of the previously described fractures involvingthe right tibia and fibula. Hardware appears intact. Right tibia and fibula MACRO: None Authorizing ProviderResult TypeResult StatusSarah Amaya PA-CEC DIAGNOSTIC X-RAYFinal Result documented in this encounter Visit Diagnoses Diagnosis Displ spiral fx shaft of r tibia, init for opn fx type I/2 documented in this encounter
--- OUTSIDE RECORDS SUMMARY | 2024-12-28 10:00 | XMS_ITS | Encounter Summary ---
Author Organization [facility] Address [address] [facility] [place] [address] Care Team Providers Care Motion Picture Film Examiner Name Role Phone Unavailable Primary Care Provider Unavailabl e Reason for Referral * Diagnostic X-Ray (Routine) - ClosedSpecialtyDiagnoses / ProceduresReferred By ContactReferred To ContactRadiology Diagnoses Displ spiral fx shaft of r tibia, init for opn fx type I/2 Procedures XR TIBIA RIGHT 2 VIEWS Sarah Amaya PA-C [address] [place] [address] Phone: tel: fax: [facility] DIAGNOSTIC RADIOLOGY [address] [place] [address] [place] [address] Phone: tel: Referral IDStatusReasonStart DateExpiration DateVisits RequestedVisits [id number]/ Reason for Visit * ReasonCommentsPost-op Follow-upPost Op CheckRt tibia - DOS: 11/14Pts caregiver states that pt is not complaining about pain at this time. Feels physical therapy is going well and would like to discuss how much longer pt needs to be in CAM walker Encounter Details DateTypeDepartmentCare Team (Latest Contact Info)Kvivtbcjtgs85/05/2025 10:00 AM ESTOffice Visit [facility] [address] [place] [address] Sarah Amaya PA-C [address] [place] [address] Displ spiral fx shaft of r tibia, init for opn fx type I/2 (Primary Dx) Social History Tobacco UseTypesPacks/DayYears UsedDateSmoking Tobacco: Never AssessedSex and Gender InformationValueDate RecordedSex Assigned at BirthNot on fileLegal Sex Male03/01/2019 1:46 PM ESTGender IdentityNot on fileSexual OrientationNot on filedocumented as of this encounter Patient Instructions * Patient Instructions* Sarah Amaya PA-C - 12/28/2024 10:44 AM EST Healing on xrays of the right tibia Ok to discontinue boot and WBAT in tennis shoe Continue PT Follow up in 6 weeks with repeat images documented in this encounter Progress Notes * Sarah Amaya PA-C - 12/28/2024 9:31 AM EST [facility] Orthopaedic Trauma/Adult Reconstruction 12/28/24 Orthopaedic Surgery Clinic Note HPI: Delano Segovia ([id number]) is a 54 year old male who presents for a 6 week visit s/p NEGRA R ankle, IMN R distal tibial shaft fx. Pain improving. Has been WBAT in boot - hopeful to transition out. Caregiver again present to help with HPI. Participating in PT. Plans to transition back to his home living facility soon. ROS: All other pertinent ROS negative. Medications: Medications Ordered Prior to Encounter[1] Allergies: Allergies[2] Past Medical History: Medical History[3] Past Surgical History: Surgical History[4] Physical Exam: Musculoskeletal: RLE Deformity: none Swelling: moderate Wounds: well healed Perfusion: warm, well perfused, distal pulses palpable Tenderness: diffuse mid/distal tibia Range of Motion: 0-40 DF/PF/EHL: 5/5 - able to follow commands and good strength compared to prior eval Sensation: Intact to light touch Imaging: Reviewed with the patient. Hardware remains intact. Interval healing of distal tibial shaft fx and distal fibula fx Assessment/Plan: 1. (S82.503A) Displ spiral fx shaft of r tibia, init for opn fx type I/2 (primary encounter diagnosis) The natural history and treatment options (surgical and non-surgical) were discussed including risks, benefits, alternatives and prognosis and all questions were answered. The following plan was agreed upon: Discontinue use of boot ok to WBAT in regular shoe. Continue with PT Follow-up: 6 weeks, Imaging: right tibia Sarah Amaya, ZORA-C [phone] [1] Current Outpatient Medications on File Prior to Visit Medication Sig Dispense Refill oxyCODONE (OXYIR) 5 MG capsule Take 5 [...] mouth 2 times a day. 84 Tablet 0 benztropine (COGENTIN) 1 MG tablet Take 1 Tablet by mouth 3 times daily. 90 Tablet 0 cloNIDine (CATAPRES) 0.1 MG tablet Take 1 Tablet by mouth 3 times a day. 90 Tablet 0 OXcarbazepine (TRILEPTAL) 300 MG/5ML oral suspension Take 10 mL by mouth daily. 300 mL 0 OXcarbazepine (TRILEPTAL) 300 MG/5ML oral suspension Take 20 mL by mouth at bedtime. 600 mL 0 PARoxetine (PAXIL) 30 MG tablet Take 2 Tablets by mouth at bedtime. 60 Tablet 0 haloperidol (HALDOL) 10 MG tablet Take 10 mg by mouth every evening. nebivolol (BYSTOLIC) 5 MG TABS tablet Take 5 mg by mouth daily. levothyroxine (SYNTHROID) 137 MCG tablet Take 137 mcg by mouth daily. levETIRAcetam (KEPPRA) 500 MG tablet Take 500 mg by mouth 2 times daily. haloperidol (HALDOL) 5 MG tablet Take 15 mg by mouth 2 times a day. amLODIPine (NORVASC) 10 MG tablet Take 10 mg by mouth daily. Calcium Carb-Cholecalciferol (Oyster Shell Calcium w/D) 500-5 MG-MCG TABS Take 1 Tablet by mouth 2 times daily. atorvastatin (LIPITOR) 40 mg tablet Take 40 mg by mouth daily. No current facility-administered medications on file prior to visit. [2] Allergies Allergen Reactions Aripiprazole Other agressiveness Pertussis Vaccine Redness Pertussis Vaccines [3] Past Medical History: Diagnosis Date Anemia OSH H + P 01/08/2021 CKD (chronic kidney disease), stage I OSH H + P 01/08/2021 Dental caries Moderate intellectual disability OSH H + P 01/08/2021 Tuberous sclerosis (HCC) OSH H + P 01/08/2021 [4] Past Surgical History: Procedure Laterality Date DENTAL RESTORATIONS Bilateral 01/25/2021 Procedure: DENTAL RESTORATIONS; Surgeon: Mina Solorzano DDS; Location: [facility] [place]; Service: Dental EXCISION, LESION, ORAL Right 01/25/2021 Procedure: EXCISION, LESION, ORAL; Surgeon: Mina Solorzano DDS; Location: [facility] [place]; Service: Dental REDUCTION, OPEN, TIBIA Right 11/14/2024 Procedure: REDUCTION, OPEN, TIBIA; Surgeon: Jose Truong MD; Location: PERIOPERATIVE SERVICES; Service: Orthopaedics REDUCTION, OPEN, TIBIA, INTRAMEDULLARY MARKOS Right 11/14/2024 Procedure: REDUCTION, OPEN, TIBIA, INTRAMEDULLARY MARKOS; Surgeon: Jose Truong MD; Location: PERIOPERATIVE SERVICES; Service: Orthopaedics documented in this encounter Plan of Treatment DateTypeDepartmentCare Team (Latest Contact Info)Kkysqpuijbs09/19/2025 10:30 AM ESTOffice Visit [facility] Oral Surgery [address] [place] [address] Aslcody, Blas, DMD [address] [place] [address] 02/15/2025 9:45 AM ESTOffice Visit [facility] Orthopedics [address] [place] [address] Sarah Amaya PA-C [address] [place] [address] 04/20/2025 10:00 AM ESTOffice Visit [facility] Dentistry [address] [place], [place] [phone] Jessica Wade, [facility] [address] [place] [address] documented as of this encounter Results * XR TIBIA RIGHT [...] fibula with plate and screws identified. Fracture lines persist. Spiral fracture [...] r tibia, init for opn fx type I/2- Primary Displ spiral fx shaft of r tibia, init for opn fx type I/2 documented in this encounter
--- OUTSIDE RECORDS SUMMARY | 2025-01-11 12:30 | XMS_ITS | Encounter Summary ---
Author Organization [facility] Address [address] [place] [address] Care Team Providers Care Auto Claims Adjuster Name Role Phone Dev Hein MD Unavailable Reason for Visit * ReasonOnset DateCommentsReferral Received?11/22/2024 Encounter Details DateTypeDepartmentCare Team (Latest Contact Info)Vrknjstgbvc31/30/2025Telephone [facility] Oral Surgery [address] [place] [address] Assigned, To Be Referral Received? Social History Tobacco UseTypesPacks/DayYears UsedDateSmoking Tobacco: Never AssessedSex and Gender InformationValueDate RecordedSex Assigned at BirthNot on fileLegal Sex Male03/01/2019 1:46 PM ESTGender IdentityNot on fileSexual OrientationNot on filedocumented as of this encounter Miscellaneous Notes * Telephone Encounter - Era Rene - 11/22/2024 12:09 PM EDT Referral Received? HEIDI Beal from [facility] calling to see if OS referral was received so she can schedule an appt. Lian emailed referral with E[facility] on 11/09. Please call Lian to advise of receipt and schedule appt if possible. Lian [phone] ext [phone] nursing line Thanks! documented in this encounter Plan of Treatment DateTypeDepartmentCare Team (Latest Contact Info)Zcfcrrayhip81/19/2025 10:30 AM ESTOffice Visit [facility] Oral Surgery [address] [place] [address] Blas Vergara DMD [address] [facility] [place] [address] 02/15/2025 9:45 AM ESTOffice Visit [facility] Orth[facility] [address] [place] [address] Santiago Amaya PA-C [address] [place] [phone] 04/20/2025 10:00 AM ESTOffice Visit [facility] Dentistry [address] [place] [address] Jessica Wade RDH [address] [place] [address] documented as of this encounter Visit Diagnoses Not on filedocumented in this encounter Care Teams Team MemberRelationshipSpecialtyStart DateEnd Date Dev Hein MD [address] [place] [address] JnkhuuigcJwtphwmunwna39/6/25documented as of this encounter
--- OUTSIDE RECORDS SUMMARY | 2025-01-11 12:30 | XMS_ITS | Clinical Summary ---
Author Organization [facility] Address [address] [facility] [place] [address] Care Team Providers Care Director Of Math Name Role Phone Dev Hein MD Unavailable Source Comments The following information is NOT included in Care Everywhere downloads:Psychiatric notes, ECG results, Cardiac Rehab notes, Pulmonary Function notes, data from SmartForms (includes but not limited toPregnancy data,audiograms, eye exams, pre-surgical evaluation notes, well-child exam data).[facility] Allergies Active AllergyReactionsCriticalityNoted DateCommentsAripiprazoleOtherMedium 02/01/2008 agressiveness Pertussis NdmkhkhOnfnrtt29/18/2017Pertussis Nfkhswvy33/20/2008 Medications MedicationSigDispense QuantityRefillsLast FilledStart DateEnd DateStatus atorvastatin (LIPITOR) 40 mg tablet Take 40 mg by mouth daily.Active nebivolol (BYSTOLIC) 5 MG TABS tablet Take 5 mg by mouth daily.5Active levothyroxine (SYNTHROID) 137 MCG tablet Take 137 mcg by mouth daily.5Active levETIRAcetam (KEPPRA) 500 MG tablet Take 500 mg by mouth 2 times daily.01/27/2023ctive haloperidol (HALDOL) 5 MG tablet Take 15 mg by mouth 2 times a day.5Active amLODIPine (NORVASC) 10 MG tablet Take 10 mg by mouth daily.5Active Calcium Carb-Cholecalciferol (Oyster Shell Calcium w/D) 500-5 MG-MCG TABS Take 1 Tablet by mouth 2 times daily.01/27/2023ctive haloperidol (HALDOL) 10 MG tablet Take 10 mg by mouth every evening.Active cloNIDine (CATAPRES) 0.1 MG tablet Take 1 Tablet by mouth 3 times a day. 90 Tablet 5Active OXcarbazepine (TRILEPTAL) 300 MG/5ML oral suspension Take 10 mL by mouth daily. 300 mL 5Active OXcarbazepine (TRILEPTAL) 300 MG/5ML oral suspension Take 20 mL by mouth at bedtime. 600 mL 5Active PARoxetine (PAXIL) 30 MG tablet Take 2 Tablets by mouth at bedtime. 60 Tablet 5Active benztropine (COGENTIN) 1 MG tablet Take 1 Tablet by mouth 3 times daily. 90 Tablet 11/18/2024tive aspirin EC 81 MG tablet Take 1 Tablet by mouth 2 times a day. 84 Tablet 11/19/2024tive tamsulosin (FLOMAX) 0.4 MG capsule Take 0.4 mg by mouth daily.Active Sennosides (Senna) 8.6 MG CAPS Take by mouth.Active hydrOXYzine pamoate (Vistaril) 25 MG capsule Take 25 mg by mouth 3 times daily as needed for Itching.Active oxyCODONE (OXYIR) 5 MG capsule Take 5 mg by mouth every 6 hours as needed for Pain.Active acetaminophen (TYLENOL) 500 MG tablet Take 2 Tablets by mouth every 8 hours as needed. 90 Tablet 51Expired Active Problems ProblemNoted DateDiagnosed DateDispl spiral fx shaft of r tibia, init for opn fx type I/Type I or II open fracture of right tibia and fibula, initial ubkbnqhhx23/21/2025Dental tcvclu2101/01/2021 Overview (01/01/2021): Added automatically from request for surgery [id number] Encounters DateTypeDepartmentCare BtgmCnqjeinjxtn02/05/2025 10:00 AM ESTOffice Visit [facility] [address] [place] [address] Sarah Amaya PA-C Displ spiral fx shaft of r tibia, init for opn fx type I/2 (Primary Dx) 12/28/2024 9:33 AM EST - 12/28/2024 11:59 PM ESTHospital Encounter [facility] Radiology [address] [place] [address] Displ spiral fx shaft of r tibia, init for opn fx type I/2 Discharge Disposition: HOV Zkihompqe14/14/2025 1:10 PM EDTAncillary Procedure [facility] [address] [place] [address] 12/06/2024 12:15 PM EDTAncillary Procedure [facility] [address] [place] [address] 12/06/2024 11:30 AM EDTOffice Visit [facility] [address] [place] [phone] Dev Hein MD Closed displaced fracture of right clavicle, unspecified part of clavicle, initial encounter (Primary Dx)12/01/2024Orders Only [facility] Orthopedic Hand [address] [place], [place] [phone] Jacqueline Encinas RN 11/30/2024 10:00 AM EDTOffice Visit [facility] [address] [place] [phone] Sarah Amaya PA-C Displ spiral fx shaft of r tibia, init for opn fx type I/2 (Primary Dx) 11/22/2024Telephone [facility] [address] [facility] OR [facility] [address] Cj Henriquez DMD, MD 11/22/2024Telephone [facility] Oral Surgery [address] [place] [phone] Assigned, To Be Referral Received?11/18/2024 4:54 PM EDT - 11/18/2024 11:59 PM EDTHospital Encounter [facility] Radiology [address] [place] [address] Daron Yip MD Discharge Disposition: HOV Amjuexvvm86/22/2025 7:41 AM EDTAnesthesia Event [facility] Main OR [address] [place], [place] [phone] Owen Sanders MD Schumacher, Brynn, STAMPING DIE MAKER-LEGEND MAKER 11/14/2024 7:37 AM EDT - 11/14/2024 10:49 AM EDTSurgery [facility] Main OR [address] [place] [address] Jose Truong MD REDUCTION, OPEN, TIBIA, INTRAMEDULLARY ROD11/14/2024 7:11 AM EDT - 11/14/2024 11:59 PM EDTHospital Encounter [facility] [address] [place] [address] Daron Yip MD Discharge Disposition: HOV Ymhshwgae26/22/2025Scan Initial Department Assigned, To Be 1 scan: <No description>11/13/2024 10:05 AM EDT - 11/13/2024 11:59 PM EDT Hospital Encounter [facility] Radiology [address] [place] [address] Daron Yip MD Discharge Disposition: HOV Gqgmesinn48/21/2025 8:52 AM EDT - 11/18/2024 9:15 PM EDTHospital Encounter [facility] [address] [place] [address] Donnell Duncan MD Maluso, Patrick, MD Ladha, Prerna, MD Dental caries (Primary Dx); Displ spiral fx shaft of r tibia, init for opn fx type I/2; Fall, initial encounter; Intellectual disability; Type I or II open fracture of right tibia and fibula, initial encounter Discharge Disposition: Discharge to Intermediate Eovqdqnc83/21/2025E.D. Visit [facility] Social Work [address] [place] [address] Claudette Casarez LSW Trauma/complex Medical Emrynexlq17/21/2025Travelfrom Last 3 Months Immunizations ImmunizationAdministration DatesNext DueInfluenza, injectable, quadrivalent, preservative (NAD=149)01/06/2017Influenza, injectable, quadrivalent, preservative free (NRO=593)12/19/2020,11/30/2019,12/17/2018,12/02/2017, 12/14/2014Influenza, novel Y7M6-02, injectable, preservative-free (LPB=855) 01/10/2009Influenza, unspecified formulation (CVX=88)12/10/2023,12/10/2022, 12/11/2021Influenza, whole virus (CVX=16)01/07/2008,12/08/2006Pfizer Bivalent (12+ YRS) SARS-COV-2 (COVID-19) vaccine, mRNA, spike protein, LNP, pres. free, 30 mcg/0.3mL dose, syeda-sucrose (ZDX=870)2Pfizer Monovalent (12+ yrs) SARS-COV-2 (COVID-19) vaccine, mRNA, spike protein, LNP, pres. free, 30mcg/0.3mL dose (YNK=953)12/19/2020,03/27/2020,1Pfizer Monovalent (12+ yrs) SARS-COV-2 (COVID-19) vaccine, mRNA, spike protein, LNP, pres. free, 30mcg/0.3mL dose, syeda-sucrose (TVV=501)2Pneumococcal conjugate PCV21, polysaccharide PVY445 conjugate, PF (EMX=829)03/25/2024Td (adult), 2 Lf tetanus toxoid, preservative free, adsorbed (CVX=09)11/13/2024Td (adult), 5 Lf tetanus toxoid, preservative free, adsorbed (TPC=278)07/12/2015,06/25/2005Zoster Recombinant (RZV,Shingles) (MSF=185)06/06/2024,03/25/2024 Social History Tobacco UseTypesPacks/DayYears UsedDateSmoking Tobacco: Never AssessedSex and Gender InformationValueDate RecordedSex Assigned at BirthNot on fileLegal Sex Male03/01/2019 1:46 PM ESTGender IdentityNot on fileSexual OrientationNot on file Last Filed Vital Signs Vital SignReadingTime TakenCommentsBlood Mtejguyx561/7009 1:49 PM EDT Gjeli2389 1:49 PM VHNLiddrtlkeco80.8 ??C (98.2 ??F)11/18/2024 1:49 PM EDTRespiratory Faas405811/18/2024 1:49 PM EDTOxygen Ixjyjxkraz38%11/18/2024 1:49 PM EDTInhaled Oxygen Concentration--Ocuplo47.5 kg (195 lb)01/25/2021 9:15 AM EST Yhlwts100.7 cm (5' 8 )11/15/2024 7:00 AM EDTBody Mass Index-- Plan of Treatment DateTypeDepartmentCare Team (Latest Contact Info)Buvujzlxwxa17/19/2025 10:30 AM ESTOffice Visit [facility] [address] [place] [address] [phone] Blas Vergara DMD [address] [place], [place] [phone] 02/15/2025 9:45 AM ESTOffice Visit [facility] [address] [place] [address] Sarah Amaya PA-C [address] [place], [place] [phone] 04/20/2025 10:00 AM ESTOffice Visit [facility] [address] [place] [address] Jessica Wade RDH [address] [place], [place] [phone] Health MaintenanceDue DateLast EcnrDshaeblsVdkttrosjrq1968Hepatitis C Jppwrxiq23/18/1986Tdap Xixedmu9601/10/1986Hepatitis A (HAV) Vaccine (optional start 19+ years)01/10/1987Hepatitis B (HBV) Vaccine (1 of 3 - 19+ 3-dose series) 01/10/1987Annual Wellness Visit (G0438)02/23/1997FIT01/10/2013COVID-19 Vaccine ( season), 06/26/2021, 12/19/2020, Additional history existsInfluenza Vaccine (#1)510/, 12/10/2022, 12/11/2021, Additional history existsCRC Hqjoankrf69/21/2026ologuard (Stool DNA)612/2887Ubceebltgbu14/17/203006/Pneumococcal Vaccine(s) (50+ yrs)Cuqrnchps13/31/2025Shingles (RZV) ZhksgfuRlhklfucs37/14/2025, 03/25/2024HIV OyctMazirckqw23/21/2025 Medical Devices ImplantedTypeAreaManufacturerDevice IdentifierShelf Expiration DateModel / Serial / LotCap End 15mm Strl Ea1 04.045.865s - [id number] Implanted:Qty: 1 on 11/14/2024 by Jose Truong MD at INPATIENT DEPARTMENTS ConnectorRight: TibiaJohnson & Udjizdd80/31/[id number] / / [id number] 10mm 330mm Tib Tn Adv Im Ea1 04.043.230s - [id number] Implanted:Qty: 1 on 11/14/2024 by Jose Truong MD at INPATIENT DEPARTMENTS Nail Rods & PinsRight: TibiaJohnson & Cpueyts56/28/477584.043.230S / / [id number] Prof Lckng Scr 50 34 Xl25 S [id number] Implanted:Qty: 1 on 11/14/2024 by Jose Truong MD at INPATIENT DEPARTMENTS ScrewRight: CzpqfScjtyuj59/30/950882.045.334TS / / [id number] Prof Lckng Scr 50 34 Xl25 S [id number] Implanted:Qty: 1 on 11/14/2024 by Jose Truong MD at INPATIENT DEPARTMENTS ScrewRight: ZrbpqZrhfzjt67/30/297281.045.334TS / / [id number] Prof Lckng Scr 50 50 Xl25 S [id number] Implanted:Qty: 1 on 11/14/2024 by Jose Truong MD at INPATIENT DEPARTMENTS ScrewRight: XzrfxPbmejci20/31/203004.045.350TS / / [id number] Prof Lckng Scr 50 44 Xl25 S [id number] Implanted:Qty: 1 on 11/14/2024 by Jose Truong MD at INPATIENT DEPARTMENTS ScrewRight: IfbefTgytlzt20/31/203004.045.344TS / / [id number] Screw For Im Nail Xl25 Sterile 5mm X 36mm Implanted:Qty: 1 on 11/14/2024 by Jose Truong MD at INPATIENT DEPARTMENTS ScrewRight: SnmmjEifkzzg20/30/203004.045.036TS / / [id number]bejuTxsngq IdentifierShelf Expiration DateModel / Serial / LotWire 3.2 X 400mm Guide Ea1 357.399 - [id number] Explanted:Qty: 2 on 11/14/2024 by Jose Truong MD at INPATIENT DEPARTMENTS Right: TibiaAdalberto & Fxmsnwf057.399 / / Procedures Procedure NamePriorityDate/TimeAssociated DiagnosisCommentsXR TIBIA RIGHT 2 ISITQYnozxnt59/05/2025 10:11 AM EST Displ spiral fx shaft of r tibia, init for opn fx type I/2 XR TIBIA RIGHT 2 JISCPWqekoei18/14/2025 11:44 AM EDT Displ spiral fx shaft of r tibia, init for opn fx type I/2 XR CLAVICLE RIGHT 2 BPKLJPfjevwf35/14/2025 11:43 AM EDT Closed displaced fracture of right clavicle, unspecified part of clavicle, initial encounter XR T-SPINE 3 OKTWUQQGZ92/26/2025 5:14 PM EDT ZHEXQVSCIZCqmtscr21/25/2025 6:57 AM EDT HFTJFVXPOGiukajn72/25/2025 6:57 AM EDT COMPLETE BLOOD HGUGMNpbkupf57/25/2025 6:57 AM EDT BASIC METABOLIC LCNIHRphoqqy96/25/2025 6:57 AM EDT RQGCMSDvntcik88/24/2025 10:43 AM EDT OSMOLALITY, LMCSEDlczzps07/24/2025 10:43 AM EDT SODIUM, RANDOM ZJWJFWxozzuh64/24/2025 10:43 AM EDT COMPLETE BLOOD XUOZCPosbzmu76/24/2025 1:35 AM EDT FKVDEUDUNAJaqngcm96/24/2025 1:35 AM EDT IBPPBCPKGXeigbpw17/24/2025 1:35 AM EDT BASIC METABOLIC DLRMYVbpttrk68/24/2025 1:35 AM EDT BAYTWARNNJKdwfobm49/23/2025 2:32 AM EDT JXBXXSUOWDnpbcod47/23/2025 2:32 AM EDT BASIC METABOLIC WIJDMSllhtzw78/23/2025 2:32 AM EDT COMPLETE BLOOD IQOCPEhllzch71/23/2025 2:32 AM EDT XR FLUORO SUPPORT ONLY IN SURGERY (KEYUR)STAT11/14/2024 10:07 AM EDTREDUCTION, OPEN, TIBIA5/E - Within 24 Hours11/14/2024 7:26 AM EDT Displ spiral fx shaft of r tibia, init for opn fx type I/2 TREATMENT, TIBIAL SHAFT FRACTURE, INTRAMEDULLARY IMPLANT, W/WO SCREWS/CERCLAGE 5/E - Within 24 Hours11/14/2024 7:26 AM EDT Displ spiral fx shaft of r tibia, init for opn fx type I/2 DKZBEGBXARLHDW89/22/2025 6:29 AM EDT JGBCTVDLSOIRT73/22/2025 6:29 AM EDT PARTIAL THROMBOPLASTIN JJOOJIKT64/22/2025 6:29 AM EDT PROTHROMBIN TIME AND TSZBRCW8511/14/2024 6:29 AM EDT COMPLETE BLOOD FYYXMONIA21/22/2025 6:29 AM EDT BASIC METABOLIC DFUDDYFKF00/22/2025 6:29 AM EDT XR CLAVICLE RIGHT 2 NLEYTRJKM11/21/2025 9:25 PM EDT EKG 12 LEAD - TYOIMSDMfycsgz73/21/2025 4:53 PM EDT CONFIRMATION ABO/WYHYSD9711/13/2024 2:[address] TIBIA RIGHT W/O YYNPQDYMJSWQ80/21/2025 2:21 PM EDT XR TIBIA RIGHT 2 BCWNYSFOW51/21/2025 1:58 PM EDT XR FOOT LEFT 3 SECIPQEVG49/21/2025 10:09 AM EDT XR KNEE RT ANY 4 OR MORE RCBYOKSHT96/21/2025 10:09 AM EDT XR ANKLE RIGHT 3 PISATFZQF05/21/2025 10:09 AM EDT XR KNEE RIGHT AP+LAT 2 QTVQDGrepfqo96/21/2025 10:[address] T-SPINE/L-SPINE W/O WZXUPLIBSXXR16/21/2025 9:[address] CHEST/ABD/PELVIS W/ AVKAYCTPLPHR40/21/2025 9:[address] C-SPINE W/O NTURHOISDHJT37/21/2025 9:[address] HEAD W/O QQSJKRUCLHNM90/21/2025 9:37 AM EDT XRAY RIGHT LOWER EXTREMITY IMG IMPORT(KEYUR)STAT11/13/2024 9:14 AM EDTLACTIC ACID STAT11/13/2024 9:05 AM EDT CBC WITH VRIJFWYGQRNFJTBA94/21/2025 9:04 AM EDT HIV1 HIV2 AGAB DRLITOEY38/21/2025 9:04 AM EDT TYPE AND PJJKYDYEFT97/21/2025 9:04 AM EDT PROTHROMBIN TIME AND IKUDKKF3911/13/2024 9:04 AM EDT BASIC METABOLIC YVRKGMWNW25/21/2025 9:04 AM EDT PARTIAL THROMBOPLASTIN LOIGRLZE94/21/2025 9:04 AM EDT ALCOHOL (ETHANOL), PXHUDFYHS50/21/2025 9:04 AM EDT COMPLETE BLOOD COUNT W/HKIQVXIY51/21/2025 9:04 AM EDT from Last 3 Months Results * XR TIBIA RIGHT 2 VIEWS [...] opn fxtype I/2 ORDERING PROVIDER: SARAH AMAYA TECHNRILEY NOTE: COMPARISON: December 06, 2024 FINDINGS: 4 [...] TypeResult StatusSarah Amaya PA-CEC DIAGNOSTIC X-RAYFinal Result * XR TIBIA RIGHT 2 VIEWS (12/06/2024 11:44 AM EDT)Anatomical RegionLaterality ModalityXR Right Lower Extremity, Lower LegRightComputed RadiographySpecimen (Source)Anatomical Location / LateralityCollection Method / VolumeCollection TimeReceived Time12/07/2024 7:32 AM EDT Narrative 12/07/2024 11:45 AM EDT EXAMINATION: XR TIBIA RIGHT 2 VIEWSPRO/RT 12/06/2024 11:44 AM CLINICAL HISTORY: po ASSOCIATED DIAGNOSIS: Displ spiral fx shaft of r tibia, init for opn fx type I/2 ORDERING PROVIDER: SARAH MIDDLETON NOTE: COMPARISON: XR TIBIA RIGHT 2 VIEWS 11/13/2024 1:59 PM FINDINGS: There is orthopedic hardware -- ??intramedullary kai with screw fixation -- providing internal fixation for previously noted comminuted distal tibia fracture. Note is made that there has been revision of the remote screw plate internal fixation at the distalfibula with removal of the most cephalic screw and the fibular/tibia screw to reestablish alignment. Redemonstration of the new transverse fracture of the distal fibular shaft. The overall alignment appears essentially anatomic given technical differences. IMPRESSION: [Status post ORIF with alignment essentially anatomic and hardware intact in the post surgical state.] Right tibia and fibula MACRO: None Procedure Note Ambrocio Muñoz MD - 12/07/2024 EXAMINATION: XR TIBIA RIGHT 2 VIEWSPRO/RT 12/06/2024 11:44 AM CLINICAL HISTORY: po ASSOCIATED DIAGNOSIS: Displ spiral fx shaft of r tibia, init for opn fxtype I/2 ORDERING PROVIDER: SARAH MIDDLETON NOTE: COMPARISON: XR TIBIA RIGHT 2 VIEWS 11/13/2024 1:59 PM FINDINGS: There is orthopedic hardware -- intramedullary kai with screw fixation -- providing internal fixation for previously noted comminuted distal tibia fracture. Note is made that there has been revision of the remote screw plateinternal fixation at the distal fibula with removal of the most cephalicscrew and the fibular/tibia screw to reestablish alignment.Redemonstration of the new transverse fracture of the distal fibularshaft. The overall alignment appears essentially anatomic given technicaldifferences. IMPRESSION: [Status post ORIF with alignment essentially anatomic and hardware intactin the post surgical state.] Right tibia and fibula MACRO: None Authorizing ProviderResult TypeResult StatusSarah Amaya PA-CEC DIAGNOSTIC X-RAYFinal Result * XR CLAVICLE RIGHT 2 VIEWS (12/06/2024 11:43 AM EDT)Anatomical RegionLaterality ModalityXR Right Upper Extremity, ClavicleRightComputed RadiographySpecimen (Source)Anatomical Location / LateralityCollection Method / VolumeCollection TimeReceived Time12/07/2024 7:30 AM EDT Narrative 12/07/2024 10:16 AM EDT EXAMINATION: XR CLAVICLE RIGHT 2 VIEWSPRO/RT 12/06/2024 11:43 AM CLINICAL HISTORY: fx ASSOCIATED DIAGNOSIS: Closed displaced fracture of right clavicle, unspecified part of clavicle, initial encounter ORDERING PROVIDER: PAT MIDDLETON NOTE: COMPARISON: XR CLAVICLE RIGHT 2 VIEWS 11/13/2024 9:25 PM IMPRESSION: Redemonstration of previously noted distal right clavicle fracture. Alignment is more nearly anatomic. No bony bridging. Right clavicle MACRO: None Procedure Note Ambrocio Muñoz MD - 12/07/2024 EXAMINATION: XR CLAVICLE RIGHT 2 VIEWSPRO/RT 12/06/2024 11:43 AM CLINICAL HISTORY: fx ASSOCIATED DIAGNOSIS: Closed displaced fracture of right clavicle,unspecified part of clavicle, initial encounter ORDERING PROVIDER: PAT JONES TECHNRILEY NOTE: COMPARISON: XR CLAVICLE RIGHT 2 VIEWS 11/13/2024 9:25 PM IMPRESSION: Redemonstration of previously noted distal right clavicle fracture.Alignment is more nearly anatomic. No bony bridging. Right clavicle MACRO: None Authorizing ProviderResult TypeResult StatusPat Jones PA-CEC DIAGNOSTIC X-RAYFinal Result * XR T-SPINE 3 VIEWS (11/18/2024 5:14 PM EDT)Anatomical RegionLateralityModality XR T-Spine, T-spineN/AComputed RadiographySpecimen (Source)Anatomical Location / LateralityCollection Method / VolumeCollection TimeReceived Time11/18/2024 5:38 PM EDT Narrative 11/18/2024 5:43 PM EDT EXAMINATION: XR T-SPINE 3 VIEWSPRO 11/18/2024 05:14 PM CLINICAL HISTORY: Evaluation of alignment in setting of known T spine fractures ASSOCIATED DIAGNOSIS: ORDERING PROVIDER: KIMBERLY GLOVER TECHNOLOGISTS NOTE: COMPARISON: CT thoracic/ lumbar spine on 11/13/2024. FINDINGS/ IMPRESSION: Limitations: * ??Evaluation of the upper thoracic spine is suboptimal on the lateral images because of the shoulders. * ??Evaluation of the vertebral body heights is suboptimal secondary to suboptimal projection of the lateral view. * ??The x-ray is further degraded by motion related artifact on lateral view. Within the constraints described above, no evident vertebral body height loss or significant listhesis is seen. MACRO: None Procedure Note Guanako Conklin MD - 11/18/2024 EXAMINATION: XR T-SPINE 3 VIEWSPRO 11/18/2024 05:14 PM CLINICAL HISTORY: Evaluation of alignment in setting of known T spinefractures ASSOCIATED DIAGNOSIS: ORDERING PROVIDER: KIMBERLY GLOVER TECHNOLOGISTS NOTE: COMPARISON: CT thoracic/ lumbar spine on 11/13/2024. FINDINGS/ IMPRESSION: Limitations: * Evaluation of the upper thoracic spine is suboptimal on the lateralimages because of the shoulders. * Evaluation of the vertebral body heights is suboptimal secondary tosuboptimal projection of the lateral view. * The x-ray is further degraded by motion related artifact on lateralview. Within the constraints described above, no evident vertebral body heightloss or significant listhesis is seen. MACRO: None Authorizing ProviderResult TypeResult StatusKimberly Glover STAMPING DIE MAKER-CNPEC DIAGNOSTIC X-RAYFinal Result * (ABNORMAL) BASIC METABOLIC PANEL (11/17/2024 6:57 AM EDT)ComponentValueRef RangeTest MethodAnalysis TimePerformed AtPathologist JlamraymdPemeekr122(H)74 - 109 mg/dL11/17/2024 7:29 AM [facility] PATHOLOGY EFGJYMFCLMSkdkgi507176 - 145 mmol/L11/17/2024 7:29 AM [facility] PATHOLOGY LABORATORYPotassium4.03.5 - 5.0 mmol/L11/17/2024 7:29 AM [facility] PATHOLOGY LABORATORYCarbon Papnnpc6921 - 31 mmol/L11/17/2024 7:29 AM [facility] PATHOLOGY RDMNSXBHXCBxnoznlf194(H)98 - 107 mmol/L11/17/2024 7:29 AM [facility] PATHOLOGY LABORATORYBlood Urea Amilblgy688 - 25 mg/dL11/17/2024 7:29 AM [facility] PATHOLOGY LABORATORYCreatinine1.49(H)0.70 - 1.30 mg/dL11/17/2024 7:29 AM [facility] PATHOLOGY LABORATORYCalcium9.08.6 - 10.3 mg/dL11/17/2024 7:29 AM [facility] PATHOLOGY LABORATORYAnion Jmn2152 - 20 11/17/2024 7:29 AM [facility] PATHOLOGY LABORATORYEstimated GFR (CKD-EPI)55(L)>=60 mL/min/1.16tlg3511/17/2024 7:29 AM [facility] PATHOLOGY LABORATORYComment: 2020 CKD EPI Equation using Creatinine without Race Comment: ??Estimated glomerular filtration rate (eGFR) is calculated without a race coefficient. Values should be interpreted in the context of the patient's full clinical presentation. Reference: 1. Rodriguez C, Baingridja M, Lele DC, et al.. A Unifying Approach for GFR Estimation: Recommendations of the NKF-ASN Task Force on Reassessing the Inclusion of Race in Diagnosing Kidney Disease. AmericanJournal of Kidney Diseases 2021;79(2):268-88.e1. 2. N Engl J Med 2021 Vol. 385 Issue 19 Pages 6049-1047 Specimen (Source)Anatomical Location / LateralityCollection Method / Volume Collection TimeReceived TimeBloodBLOOD SPECIMEN / UnknownVenipuncture / Unknown 11/17/2024 6:57 AM EDT11/17/2024 7:02 AM EDT Narrative Authorizing ProviderResult TypeResult StatusKatie Mucic STAMPING DIE MAKER-CNP98 GENERAL LAB Final ResultPerforming OrganizationAddressCity/State/ZIP CodePhone Number [email or web address] PATHOLOGY LABORATORY [address] [place] [phone] * (ABNORMAL) COMPLETE BLOOD COUNT (11/17/2024 6:57 AM EDT)ComponentValueRef RangeTest MethodAnalysis TimePerformed AtPathologist SignatureWBC8.64.5 - 11.5 K/uL11/17/2024 7:09 AM [facility] PATHOLOGY LABORATORYRBC2.86(L)4.50 - 5.90 M/uL 11/17/2024 7:09 AM [facility] PATHOLOGY LABORATORYHemoglobin9.8(L)13.9 - 16.3 g/dL 11/17/2024 7:09 AM [facility] PATHOLOGY UAWIQJEOBSXcsmxppojq17.3(L)41.0 - 53.0 % 11/17/2024 7:09 AM [facility] PATHOLOGY TUTMOAEJZKIOW6651 - 100 fL11/17/2024 7:09 AM [facility] PATHOLOGY TPGDWFQRGNAFY80.2(H)26.0 - 34.0 pg11/17/2024 7:09 AM EDT [facility] [[email or web address]] PATHOLOGY HUSQRIQRNTOSUG31.532.0 - 35.9 g/dL11/17/2024 7:09 AM [facility] PATHOLOGY YFWAMPBOODCsoebakn790729 - 400 K/uL11/17/2024 7:09 AM [facility] PATHOLOGY LABORATORYRDW-CV13.311.5 - 14.5 %11/17/2024 7:09 AM [facility] PATHOLOGY LABORATORYMPV8.47.5 - 11.2 fL11/17/2024 7:09 AM [facility] PATHOLOGY LABORATORY Specimen (Source)Anatomical Location / LateralityCollection Method / Volume Collection TimeReceived TimeBloodBLOOD SPECIMEN / UnknownVenipuncture / Ndgxirl2011/17/2024 6:57 AM EDT11/17/2024 7:02 AM EDT Narrative Authorizing ProviderResult TypeResult StatusKatie Mucic STAMPING DIE MAKER-CNP98 GENERAL LAB Final ResultPerforming OrganizationAddressCity/State/ZIP CodePhone Number [facility] [[email or web address] PATHOLOGY LABORATORY [address] [place] [phone] * PHOSPHORUS (11/17/2024 6:57 AM EDT)ComponentValueRef RangeTest MethodAnalysis TimePerformed AtPathologist SignaturePhosphorus, Serum3.02.5 - 5.0 mg/dL 11/17/2024 7:29 AM [facility] PATHOLOGY LABORATORYSpecimen (Source)Anatomical Location / LateralityCollection Method / VolumeCollection TimeReceived Time BloodBLOOD SPECIMEN / UnknownVenipuncture / Skadfrm4711/17/2024 6:57 AM EDT 11/17/2024 7:02 AM EDT Narrative Authorizing ProviderResult TypeResult StatusKatbenjamin Leosic STAMPING DIE MAKER-CNP98 GENERAL LAB Final ResultPerforming OrganizationAddressty/State/ZIP CodePhone Number [facility] [[email or web address] PATHOLOGY LABORATORY [address] [place] [phone] * (ABNORMAL) MAGNESIUM (11/17/2024 6:57 AM EDT)ComponentValueRef RangeTest MethodAnalysis TimePerformed AtPathologist SignatureMagnesium1.7(L)1.9 - 2.7 mg/dL11/17/2024 7:29 [facility] LABORATORYSpecimen (Source)Anatomical Location / LateralityCollection Method / VolumeCollection TimeReceived Time BloodBLOOD SPECIMEN / UnknownVenipuncture / Thnynei9311/17/2024 6:57 AM EDT 11/17/2024 7:02 AM EDT Narrative Authorizing ProviderResult TypeResult StatusKatbenjamin Leosic STAMPING DIE MAKER-CNP98 GENERAL LAB Final ResultPerforming OrganizationAddressCity/State/ZIP CodePhone Number [facility] [[email or web address] PATHOLOGY LABORATORY [address] [place] [phone] * SODIUM, RANDOM URINE (11/16/2024 10:43 AM EDT)ComponentValueRef RangeTest MethodAnalysis TimePerformed AtPathologist SignatureSodium, Qhgoh44aeog/L 11/16/2024 11:06 AM [facility] LABORATORYSpecimen (Source)Anatomical Location / LateralityCollection Method / VolumeCollection TimeReceived Time UrineURINE SPECIMEN / Bghndxv1211/16/2024 10:43 AM EDT11/16/2024 10:59 AM EDT Narrative Authorizing ProviderResult TypeResult StatusKatbenjamin Leosic STAMPING DIE MAKER-CNP98 GENERAL LAB Final ResultPerforming OrganizationAddUPMC Magee-Womens Hospitalty/State/ZIP CodePhone Number [facility] [[email or web address] PATHOLOGY LABORATORY [address] [place] [phone] * (ABNORMAL) SODIUM (11/16/2024 10:43 AM EDT)ComponentValueRef RangeTest Method Analysis TimePerformed AtPathologist ZepzcbbbiRsebcc951(H)136 - 145 mmol/L 11/16/2024 11:12 AM [facility] LABOR[facility]YSpecimen (Source)Anatomical Location / LateralityCollection Method / VolumeCollection TimeReceived Time BloodBLOOD SPECIMEN / UnknownVenipuncture / Ugnvfpr8011/16/2024 10:43 AM EDT 11/16/2024 10:59 AM EDT Narrative Authorizing ProviderResult TypeResult StatusCorin Jack STAMPING DIE MAKER-CNP98 GENERAL LAB Final ResultPerforming OrganizationAddressty/State/ZIP CodePhone Number [facility] [[email or web address] PATHOLOGY LABORATORY [address] [place] [address] * OSMOLALITY, URINE (11/16/2024 10:43 AM EDT)ComponentValueRef RangeTest Method Analysis TimePerformed AtPathologist SignatureOsmolality, Xovna05078 - 1,400 mOsm/Kg11/16/2024 11:32 AM [facility] PATHOLOGY LABORATORYSpecimen (Source) Anatomical Location / LateralityCollection Method / VolumeCollection Time Received TimeUrineURINE SPECIMEN / Cffeuvh8411/16/2024 10:43 AM EDT11/16/2024 10:59 AM EDT Narrative Authorizing ProviderResult TypeResult StatusSommerbenjamin Leosgerson STAMPING DIE MAKER-CNP98 GENERAL LAB Final ResultPerforming OrganizationAddressCity/State/ZIP CodePhone Number [email or web address] PATHOLOGY LABORATORY [address] [place] [address] * (ABNORMAL) BASIC METABOLIC PANEL (11/16/2024 1:35 AM EDT)ComponentValueRef RangeTest MethodAnalysis TimePerformed AtPathologist JkdtyzkutPbpdudc098(H)74 - 109 mg/dL11/16/2024 3:00 AM [facility] PATHOLOGY RRHMFVWWAROoyuxx118(H)136 - 145 mmol/L11/16/2024 3:00 AM [facility] PATHOLOGY LABORATORYPotassium4.13.5 - 5.0 mmol/L11/16/2024 3:00 AM [facility] PATHOLOGY LABORATORYCarbon Bawxxlj6290 - 31 mmol/L11/16/2024 3:00 AM [facility] PATHOLOGY LESSGYXHCGVnqrulil181(H)98 - 107 mmol/L11/16/2024 3:00 AM [facility] PATHOLOGY LABORATORYBlood Urea Kbolcxtu361 - 25 mg/dL11/16/2024 3:00 AM [facility] PATHOLOGY LABORATORYCreatinine1.69(H)0.70 - 1.30 mg/dL11/16/2024 3:00 AM [facility] PATHOLOGY LABORATORYCalcium9.18.6 - 10.3 mg/dL11/16/2024 3:00 AM [facility] PATHOLOGY LABORATORYAnion Vvx6675 - 20 11/16/2024 3:00 AM [facility] PATHOLOGY LABORATORYEstimated GFR (CKD-EPI)47(L)>=60 mL/min/1.67fzh5211/16/2024 3:00 AM [facility] PATHOLOGY LABORATORYComment: 2020 CKD EPI Equation using Creatinine without Race Comment: ??Estimated glomerular filtration rate (eGFR) is calculated without a race coefficient. Values should be interpreted in the context of the patient's full clinical presentation. Reference: 1. Michael C, Linnea M, Lele DC, et al.. A Unifying Approach for GFR Estimation: Recommendations of the NKF-ASN Task Force on Reassessing the Inclusion of Race in Diagnosing Kidney Disease. AmericanJournal of Kidney Diseases 2021;79(2):268-88.e1. 2. N Engl J Med 1 Vol. 385 Issue 19 Pages 3794-0979 Specimen (Source)Anatomical Location / LateralityCollection Method / Volume Collection TimeReceived TimeBloodBLOOD SPECIMEN / UnknownVenipuncture / Unknown 11/16/2024 1:35 AM EDT11/16/2024 2:46 AM EDT Narrative Authorizing ProviderResult TypeResult StatusHoney Lau MD98 GENERAL LABFinal ResultPerforming OrganizationAddressCity/State/ZIP CodePhone Number [facility] [[email or web address] PATHOLOGY LABORATORY [address] [place] [phone] * (ABNORMAL) COMPLETE BLOOD COUNT (11/16/2024 1:35 AM EDT)ComponentValueRef RangeTest MethodAnalysis TimePerformed AtPathologist SignatureWBC9.24.5 - 11.5 K/uL11/16/2024 2:44 AM [facility] PATHOLOGY LABORATORYRBC2.75(L)4.50 - 5.90 M/uL 11/16/2024 2:44 AM [facility] PATHOLOGY LABORATORYHemoglobin9.4(L)13.9 - 16.3 g/dL 11/16/2024 2:44 AM [facility] PATHOLOGY TBFKZMBRQCKuljgvdyag22.0(L)41.0 - 53.0 % 11/16/2024 2:44 AM [facility] PATHOLOGY JBSVKWEBURSTI4572 - 100 fL11/16/2024 2:44 AM [facility] PATHOLOGY XMZIWZIWMOICB62.4(H)26.0 - 34.0 pg11/16/2024 2:44 AM EDT [facility] [[email or web address]] PATHOLOGY AUMTBXRSUTIDJE62.032.0 - 35.9 g/dL11/16/2024 2:44 AM [facility] PATHOLOGY IYUWWCYSKBFnsihipw844967 - 400 K/uL11/16/2024 2:44 AM [facility] PATHOLOGY LABORATORYRDW-CV13.511.5 - 14.5 %11/16/2024 2:44 AM [facility] PATHOLOGY LABORATORYMPV8.57.5 - 11.2 fL11/16/2024 2:44 AM [facility] PATHOLOGY LABORATORY Specimen (Source)Anatomical Location / LateralityCollection Method / Volume Collection TimeReceived TimeBloodBLOOD SPECIMEN / UnknownVenipuncture / Uxffxhr6211/16/2024 1:35 AM EDT11/16/2024 2:06 AM EDT Narrative Authorizing ProviderResult TypeResult Alberto VENCES GENERAL LABFinal ResultPerforming OrganizationAddressCity/State/ZIP CodePhone Number [facility] [[email or web address] PATHOLOGY LABORATORY [address] [place] [phone] * PHOSPHORUS (11/16/2024 1:35 AM EDT)ComponentValueRef RangeTest MethodAnalysis TimePerformed AtPathologist SignaturePhosphorus, Serum3.12.5 - 5.0 mg/dL 11/16/2024 3:00 AM [facility] PATHOLOGY LABORATORYSpecimen (Source)Anatomical Location / LateralityCollection Method / VolumeCollection TimeReceived Time BloodBLOOD SPECIMEN / UnknownVenipuncture / Labyzvt6411/16/2024 1:35 AM EDT 11/16/2024 2:46 AM EDT Narrative Authorizing ProviderResult TypeResult StatusHoney VENCES GENERAL LABFinal ResultPerforming OrganizationAddressCity/State/ZIP CodePhone Number [facility] [[email or web address] PATHOLOGY LABORATORY [address] [place] [address] * (ABNORMAL) MAGNESIUM (11/16/2024 1:35 AM EDT)ComponentValueRef RangeTest MethodAnalysis TimePerformed AtPathologist SignatureMagnesium1.8(L)1.9 - 2.7 mg/dL11/16/2024 3:00 AM [facility] PATHOLOGY LABORATORYSpecimen (Source)Anatomical Location / LateralityCollection Method / VolumeCollection TimeReceived Time BloodBLOOD SPECIMEN / UnknownVenipuncture / Xhuhspf4811/16/2024 1:35 AM EDT 11/16/2024 2:46 AM EDT Narrative Authorizing ProviderResult TypeResult StatusHoney Lau MD98 GENERAL LABFinal ResultPerforming OrganizationAddressCity/State/ZIP CodePhone Number [facility] [[email or web address] PATHOLOGY LABORATORY [address] [place] [address] * (ABNORMAL) BASIC METABOLIC PANEL (11/15/2024 2:32 AM EDT)ComponentValueRef RangeTest MethodAnalysis TimePerformed AtPathologist GwizlddozCvmysna399(H)74 - 109 mg/dL11/15/2024 3:17 AM [facility] PATHOLOGY AYWOBZNTXLGdqtca769(H)136 - 145 mmol/L11/15/2024 3:17 AM [facility] PATHOLOGY LABORATORYPotassium4.63.5 - 5.0 mmol/L11/15/2024 3:17 AM [facility] PATHOLOGY LABORATORYCarbon Uvadbxi9610 - 31 mmol/L11/15/2024 3:17 AM [facility] PATHOLOGY ZOHPZVFLGCFvervrqx598(H)98 - 107 mmol/L11/15/2024 3:17 AM [facility] PATHOLOGY LABORATORYBlood Urea Pllwjnpl97(H)7 - 25 mg/dL11/15/2024 3:17 AM [facility] PATHOLOGY LABORATORYCreatinine1.85(H)0.70 - 1.30 mg/dL11/15/2024 3:17 AM [facility] PATHOLOGY LABORATORYCalcium8.88.6 - 10.3 mg/dL11/15/2024 3:17 AM [facility] PATHOLOGY LABORATORYAnion Cvt3287 - 20 11/15/2024 3:17 AM [facility] PATHOLOGY LABORATORYEstimated GFR (CKD-EPI)42(L)>=60 mL/min/1.50qko0911/15/2024 3:17 AM [facility] PATHOLOGY LABORATORYComment: 2020 CKD EPI Equation using Creatinine without Race Comment: ??Estimated glomerular filtration rate (eGFR) is calculated without a race coefficient. Values should be interpreted in the context of the patient's full clinical presentation. Reference: 1. Michael C, Linnea M, Lele PEREZ, et al.. A Unifying Approach for GFR Estimation: Recommendations of the NKF-ASN Task Force on Reassessing the Inclusion of Race in Diagnosing Kidney Disease. AmericanJournal of Kidney Diseases 2021;79(2):268-88.e1. 2. N Engl J Med 1 Vol. 385 Issue 19 Pages 2233-4220 Specimen (Source)Anatomical Location / LateralityCollection Method / Volume Collection TimeReceived TimeBloodBLOOD SPECIMEN / UnknownVenipuncture / Unknown 11/15/2024 2:32 AM EDT11/15/2024 2:35 AM EDT Narrative Authorizing ProviderResult TypeResult StatusKimberly Glover STAMPING DIE MAKER-CNP98 GENERAL LAB Final ResultPerforming OrganizationAddressCity/State/[facility] CodePhone Number [facility] [[email or web address] PATHOLOGY LABORATORY [address] [place] [phone] * (ABNORMAL) COMPLETE BLOOD COUNT (11/15/2024 2:32 AM EDT)ComponentValueRef RangeTest MethodAnalysis TimePerformed AtPathologist SignatureWBC9.74.5 - 11.5 K/uL11/15/2024 2:51 AM [facility] PATHOLOGY LABORATORYRBC3.25(L)4.50 - 5.90 M/uL 11/15/2024 2:51 AM [facility] PATHOLOGY UWMTGCWUPKKpdpkfgskl29.7(L)13.9 - 16.3 g/dL11/15/2024 2:51 AM [facility] PATHOLOGY VPASYBQMFXXoqqilonsj81.5(L)41.0 - 53.0 %11/15/2024 2:51 AM [facility] PATHOLOGY CIVFIQZLHDLNM12006 - 100 fL11/15/2024 2:51 AM [facility] PATHOLOGY YTBUUYXVCUDNJ78.826.0 - 34.0 pg11/15/2024 2:51 AM EDT [facility] [[email or web address]] PATHOLOGY QKOFYQFNYHABLV78.832.0 - 35.9 g/dL11/15/2024 2:51 AM [facility] PATHOLOGY ARLHPQUYIPUyevjxka731895 - 400 K/uL11/15/2024 2:51 AM [facility] PATHOLOGY LABORATORYRDW-CV13.611.5 - 14.5 %11/15/2024 2:51 AM [facility] PATHOLOGY LABORATORYMPV8.07.5 - 11.2 fL11/15/2024 2:51 [facility] Specimen (Source)Anatomical Location / LateralityCollection Method / Volume Collection TimeReceived TimeBloodBLOOD SPECIMEN / UnknownVenipuncture / Rctuepi6411/15/2024 2:32 AM EDT11/15/2024 2:35 AM EDT Narrative Authorizing ProviderResult TypeResult StatusKimberly Glover APRN-CNP98 GENERAL LAB Final ResultPerforming OrganizationAddressCity/State/ZIP CodePhone Number [facility] [[email or web address] PATHOLOGY LABORATORY [address] [place] [address] * PHOSPHORUS (11/15/2024 2:32 AM EDT)ComponentValueRef RangeTest MethodAnalysis TimePerformed AtPathologist SignaturePhosphorus, Serum3.12.5 - 5.0 mg/dL 11/15/2024 3:12 AM [facility] LABORATORYSpecimen (Source)Anatomical Location / LateralityCollection Method / VolumeCollection TimeReceived Time BloodBLOOD SPECIMEN / UnknownVenipuncture / Fydfrsn9911/15/2024 2:32 AM EDT 11/15/2024 2:35 AM EDT Narrative Authorizing ProviderResult TypeResult StatusKimberly Glover APRN-CNP98 GENERAL LAB Final ResultPerforming OrganizationAddressCity/State/ZIP CodePhone Number [facility] [[email or web address] PATHOLOGY LABORATORY [address] [place] [address] * MAGNESIUM (11/15/2024 2:32 AM EDT)ComponentValueRef RangeTest MethodAnalysis TimePerformed AtPathologist SignatureMagnesium2.01.9 - 2.7 mg/dL11/15/2024 3:12 AM [facility] LABORATORYSpecimen (Source)Anatomical Location / LateralityCollection Method / VolumeCollection TimeReceived TimeBloodBLOOD SPECIMEN / UnknownVenipuncture / Ylebjkj3311/15/2024 2:32 AM EDT11/15/2024 2:35 AM EDT Narrative Authorizing ProviderResult TypeResult StatusKimberly Glover APRN-CNP98 GENERAL LAB Final ResultPerforming OrganizationAddressCity/State/ZIP CodePhone Number [facility] [[email or web address] PATHOLOGY LABORATORY [address] [place] [address] * XR FLUORO SUPPORT ONLY IN SURGERY (KEYUR) (11/14/2024 10:07 AM EDT)Specimen (Source)Anatomical Location / LateralityCollection Method / VolumeCollection TimeReceived Time Narrative Authorizing ProviderResult TypeResult StatusJose CASSIDY DIAGNOSTIC X-RAY Final Result * (ABNORMAL) BASIC METABOLIC PANEL (11/14/2024 6:29 AM EDT)ComponentValueRef RangeTest MethodAnalysis TimePerformed AtPathologist CrnziwpvzXojyfvd34165 - 109 mg/dL11/14/2024 7:03 AM [facility] PATHOLOGY XBIJNZXGWYZxxqsr984567 - 145 mmol/L11/14/2024 7:03 AM [facility] PATHOLOGY LABORATORYPotassium4.43.5 - 5.0 mmol/L11/14/2024 7:03 AM [facility] PATHOLOGY LABORATORYCarbon Lxrxwws8580 - 31 mmol/L11/14/2024 7:03 AM [facility] PATHOLOGY IIFNBUFOKDQkpdioaj041(H)98 - 107 mmol/L11/14/2024 7:03 AM [facility] PATHOLOGY LABORATORYBlood Urea Smsuihsh87(H)7 - 25 mg/dL11/14/2024 7:03 AM [facility] PATHOLOGY LABORATORYCreatinine1.81(H)0.70 - 1.30 mg/dL11/14/2024 7:03 AM [facility] PATHOLOGY LABORATORYCalcium8.78.6 - 10.3 mg/dL11/14/2024 7:03 AM [facility] PATHOLOGY LABORATORYAnion Yci9018 - 20 11/14/2024 7:03 AM [facility] PATHOLOGY LABORATORYEstimated GFR (CKD-EPI)43(L)>=60 mL/min/1.96ewh4111/14/2024 7:03 AM [facility] PATHOLOGY LABORATORYComment: 2020 CKD EPI Equation using Creatinine without Race Comment: ??Estimated glomerular filtration rate (eGFR) is calculated without a race coefficient. Values should be interpreted in the context of the patient's full clinical presentation. Reference: 1. Michael Jack, Linnea M, Lele PEREZ, et al.. A Unifying Approach for GFR Estimation: Recommendations of the NKF-ASN Task Force on Reassessing the Inclusion of Race in Diagnosing Kidney Disease. AmericanJournal of Kidney Diseases 202;79(2):268-88.e1. 2. N Engl J Med 1 Vol. 385 Issue 19 Pages 3184-6602 Specimen (Source)Anatomical Location / LateralityCollection Method / Volume Collection TimeReceived TimeBloodBLOOD SPECIMEN / UnknownVenipuncture / Unknown 11/14/2024 6:29 AM EDT11/14/2024 6:36 AM EDT Narrative Authorizing ProviderResult TypeResult StatusKimberly Glover STAMPING DIE MAKER-CNP98 GENERAL LAB Final ResultPerforming OrganizationAddressCity/State/ZIP CodePhone Number [facility] [[email or web address] PATHOLOGY LABORATORY [address] [place] [phone] * (ABNORMAL) PROTHROMBIN TIME AND INR (11/14/2024 6:29 AM EDT)ComponentValueRef RangeTest MethodAnalysis TimePerformed AtPathologist PcntxeilmVtiucxe63.4(H) 9.7 - 12.9 sec11/14/2024 7:15 AM [facility] PATHOLOGY LABORATORYINR1.20(H)0.90 - 1.10011/14/2024 7:15 AM [facility] PATHOLOGY LABORATORYSpecimen (Source)Anatomical Location / LateralityCollection Method / VolumeCollection TimeReceived Time BloodBLOOD SPECIMEN / UnknownVenipuncture / Bihtskf9911/14/2024 6:29 AM EDT 11/14/2024 6:36 AM EDT Narrative Authorizing ProviderResult TypeResult StatusKimberly Glover STAMPING DIE MAKER-CNP98 GENERAL LAB Final ResultPerforming OrganizationAddressCity/State/ZIP CodePhone Number [facility] [[email or web address] PATHOLOGY LABORATORY [address] [place] [phone] * (ABNORMAL) COMPLETE BLOOD COUNT (11/14/2024 6:29 AM EDT)ComponentValueRef RangeTest MethodAnalysis TimePerformed AtPathologist SignatureWBC6.74.5 - 11.5 K/uL11/14/2024 6:41 AM [facility] LABORATORYRBC3.33(L)4.50 - 5.90 M/uL 11/14/2024 6:41 AM [facility] GBMUWTBHKJKyctntdlpn03.4(L)13.9 - 16.3 g/dL11/14/2024 6:41 AM [facility] PATHOLOGY IRSYMLEGEDRjdgkhvvho71.6(L)41.0 - 53.0 %11/14/2024 6:41 AM [facility] PATHOLOGY RDURQQUNPTWKS6287 - 100 fL11/14/2024 6:41 AM [facility] PATHOLOGY OGXARHIRRNELQ42.3(H)26.0 - 34.0 pg11/14/2024 6:41 AM EDT [facility] [[email or web address]] PATHOLOGY SQZIQZQZSKABCM26.032.0 - 35.9 g/dL11/14/2024 6:41 AM [facility] PATHOLOGY HEXCCXTVSLHyzpflgk819436 - 400 K/uL11/14/2024 6:41 AM [facility] PATHOLOGY LABORATORYRDW-CV13.211.5 - 14.5 %11/14/2024 6:41 AM [facility] PATHOLOGY LABORATORYMPV8.47.5 - 11.2 fL11/14/2024 6:41 AM [facility] PATHOLOGY LABORATORY Specimen (Source)Anatomical Location / LateralityCollection Method / Volume Collection TimeReceived TimeBloodBLOOD SPECIMEN / UnknownVenipuncture / Buwoqpj0611/14/2024 6:29 AM EDT11/14/2024 6:36 AM EDT Narrative Authorizing ProviderResult TypeResult StatusKimberly Glover APRN-CNP98 GENERAL LAB Final ResultPerforming OrganizationAddressCity/State/ZIP CodePhone Number [email or web address] PATHOLOGY LABORATORY [address] [place] [phone] * PARTIAL THROMBOPLASTIN TIME (11/14/2024 6:29 AM EDT)ComponentValueRef Range Test MethodAnalysis TimePerformed AtPathologist XdqzumohgwZQG2465 - 37 sec 11/14/2024 7:15 AM [facility] PATHOLOGY LABORATORYSpecimen (Source)Anatomical Location / LateralityCollection Method / VolumeCollection TimeReceived Time BloodBLOOD SPECIMEN / UnknownVenipuncture / Zceqgji8611/14/2024 6:29 AM EDT 11/14/2024 6:36 AM EDT Narrative Authorizing ProviderResult TypeResult Megan Glover STAMPING DIE MAKER-CNP98 GENERAL LAB Final ResultPerforming OrganizationAddressCity/State/ZIP CodePhone Number [facility] [[email or web address] PATHOLOGY LABORATORY [address] [place] [address] * PHOSPHORUS (11/14/2024 6:29 AM EDT)ComponentValueRef RangeTest MethodAnalysis TimePerformed AtPathologist SignaturePhosphorus, Serum4.02.5 - 5.0 mg/dL 11/14/2024 7:03 AM [facility] PATHOLOGY LABORATORYSpecimen (Source)Anatomical Location / LateralityCollection Method / VolumeCollection TimeReceived Time BloodBLOOD SPECIMEN / UnknownVenipuncture / Lrbwoio8411/14/2024 6:29 AM EDT 11/14/2024 6:36 AM EDT Narrative Authorizing ProviderResult TypeResult StatusKimberly Glover STAMPING DIE MAKER-CNP98 GENERAL LAB Final ResultPerforming OrganizationAddressCity/State/ZIP CodePhone Number [email or web address] PATHOLOGY LABORATORY [address] [place] [phone] * MAGNESIUM (11/14/2024 6:29 AM EDT)ComponentValueRef RangeTest MethodAnalysis TimePerformed AtPathologist SignatureMagnesium2.11.9 - 2.7 mg/dL11/14/2024 7:03 AM [facility] PATHOLOGY LABORATORYSpecimen (Source)Anatomical Location / LateralityCollection Method / VolumeCollection TimeReceived TimeBloodBLOOD SPECIMEN / UnknownVenipuncture / Gwpepvx2611/14/2024 6:29 AM EDT11/14/2024 6:36 AM EDT Narrative Authorizing ProviderResult TypeResult StatusKimberly Glover STAMPING DIE MAKER-CNP98 GENERAL LAB Final ResultPerforming OrganizationAddressCity/State/ZIP CodePhone Number [email or web address] PATHOLOGY LABORATORY [address] [place] [phone] * XR CLAVICLE RIGHT 2 VIEWS (11/13/2024 9:25 PM EDT)Anatomical RegionLaterality ModalityXR Right Upper Extremity, ClavicleRightComputed RadiographySpecimen (Source)Anatomical Location / LateralityCollection Method / VolumeCollection TimeReceived Time11/13/2024 9:31 PM EDT Narrative 11/13/2024 9:33 PM EDT EXAMINATION: XR CLAVICLE RIGHT 2 VIEWSPRO/RT 11/13/2024 09:25 PM CLINICAL HISTORY: fracture ASSOCIATED DIAGNOSIS: ORDERING PROVIDER: [employer] NOTE: COMPARISON: None IMPRESSION: Displaced fracture of right distal clavicle is noted. Distal fragment is inferior in relationship to the main proximal fragment which is superior and laterally displaced. Right clavicle MACRO: None Procedure Note Leonela Coyle MD - 11/13/2024 EXAMINATION: XR CLAVICLE RIGHT 2 VIEWSPRO/RT 11/13/2024 09:25 PM CLINICAL HISTORY: fracture ASSOCIATED DIAGNOSIS: ORDERING PROVIDER: [employer] NOTE: COMPARISON: None IMPRESSION: Displaced fracture of right distal clavicle is noted. Distal fragment isinferior in relationship to the main proximal fragment which is superiorand laterally displaced. Right clavicle MACRO: None Authorizing ProviderResult TypeResult StatusInga Hurd MDEC DIAGNOSTIC X-RAY Final Result * EKG 12 LEAD - PERFORM (11/13/2024 4:53 PM EDT)ComponentValueRef RangeTest MethodAnalysis TimePerformed AtPathologist SignatureVentricular iopm55KHMKCOX Atrial Xeyq44EAFQRSWS-X Iidgpeyd142gsBEUPZVI mnojzvtl52stISFTX-B xlovueri355jf MUSEQTC CALCULATION(BEZET)445msMUSEP kziv52txuxazuYRZKM frzi3yqxfrmoKYWNH axis 10degreesMUSEDiagnosisNormal sinus rhythm Minimal voltage criteria for LVH, may be normal variant ( R in aVL ) Borderline No previous ECGs available Confirmed by JEANMARIE MIDDLETON ([id number]) on 11/14/2024 2:07:39 PM MUSESpecimen (Source)Anatomical Location / LateralityCollection Method / Volume Collection TimeReceived Time11/13/2024 4:53 PM EDT11/14/2024 2:07 PM EDT Narrative Authorizing ProviderResult TypeResult StatusKimberly Glover APRN-CNPIP VITAL SIGN ORDERSEdited Result - FinalPerforming OrganizationAddressCity/State/ZIP Code Phone Number [facility] [phone] [place] [address] * CONFIRMATION ABO/RH (11/13/2024 2:58 PM EDT)ComponentValueRef RangeTest Method Analysis TimePerformed AtPathologist SignatureABO Rh TypeA Ueitvkkb18/21/2025 3:54 PM [facility] PATH[facility] LABORATORYSpecimen Expiration [id number] 11/13/2024 3:54 PM [facility]FL[facility] PATHOLOGY LABORATORYABO Rh/Amairani/TXRX HistoryA Rjnfubrf13/21/2025 3:54 PM [facility] PATH[facility]Y LABORATORYSpecimen (Source) Anatomical Location / LateralityCollection Method / VolumeCollection Time Received TimeBloodBLOOD SPECIMEN / UnknownVenipuncture / Bxqiovn2411/13/2024 2:58 PM EDT11/13/2024 3:30 PM EDT Narrative Authorizing ProviderResult TypeResult StatusAli Jenna CASSIDY BLOOD BANKFinal Result Performing OrganizationAddressCity/State/ZIP CodePhone Number [email or web address] PATHOLOGY LABORATORY [address] [place] [address] * CT TIBIA RIGHT W/O CONTRAST (11/13/2024 2:21 PM EDT)ComponentValueRef Range Test MethodAnalysis TimePerformed AtPathologist SignatureCTDI VOL31.6 (mGy) RADIOLOGYPHANTOM TYPEIEC Head Dosimetry PhantomRADIOLOGYCT DBS3451.5 (mGy.cm) RADIOLOGYCT SeriesLower legRADIOLOGYAnatomical RegionLateralityModalityCT Right Lower Extremity, Lower LegRightComputed TomographySpecimen (Source) Anatomical Location / LateralityCollection Method / VolumeCollection Time Received Time11/13/2024 4:21 PM EDT Narrative 11/13/2024 5:53 PM EDT EXAMINATION: CT TIBIA RIGHT W/O CONTRASTPRO/RT 11/13/2024 02:21 PM CLINICAL HISTORY: post splint ASSOCIATED DIAGNOSIS: post splint ORDERING PROVIDER: [employer] NOTE: COMPARISON: XR TIBIA RIGHT 2 VIEWS 11/13/2024 1:59 PM TECHNIQUE: Thin axial images were obtained without intravenous contrast. Multiplanar reconstructions were obtained from the axial data. INTRA-PROCEDURE MEDS: FINDINGS: Soft tissue: There is circumferential subcutaneous edema about the right lower leg most prominently anteriorly. There is a hematoma in the surrounding soft tissues associated with the distal tibial fracture. The anterior tibialis tendon runs adjacent to the tibial fracture site without definite entrapment. No focal fluid collection. The visualized muscles are intact. Bone/joint: There are multiple fractures of the right tibia and fibula, including: * ??Acute, mildly displaced comminuted proximal fibula fracture. * ??Acute, comminuted and displaced vincenzo-hardware fracture of mid fibular diaphysis with medial angulation of the distal fracture fragments. The proximal portion of the plate is lifted away from the adjacent fibula. * ??Acute, comminuted and severely displaced fracture of the mid tibia diaphysis with medial angulation of the distal fracture fragment and with posterior and medial displacement of the distal fracture fragment. No definite intra-articular extension. * ??No knee or ankle dislocation. Limited evaluation of vasculature secondary to lack of contrast. IMPRESSION: 1. ??Proximal and mid vincenzo-hardware fibula fractures as described above. 2. ??Comminuted and severely displayed fracture of the mid tibia. 3. ??Associated soft tissue edema and hematoma. CT TIBIA RIGHT W/O CONTRAST MACRO: None I have personally reviewed the images and agree with the resident's interpretation. Procedure Note Agustin York MD - 11/13/2024 EXAMINATION: CT TIBIA RIGHT W/O CONTRASTPRO/RT 11/13/2024 02:21 PM CLINICAL HISTORY: post splint ASSOCIATED DIAGNOSIS: post splint ORDERING PROVIDER: IN[employer] H[employer] NOTE: COMPARISON: XR TIBIA RIGHT 2 VIEWS 11/13/2024 1:59 PM TECHNIQUE: Thin axial images were obtained without intravenous contrast. Multiplanar reconstructions were obtained from the axial data. INTRA-PROCEDURE MEDS: FINDINGS: Soft tissue: There is circumferential subcutaneous edema about the right lower leg most prominently anteriorly. There is a hematoma in the surrounding softtissues associated with the distal tibial fracture. The anterior tibialistendon runs adjacent to the tibial fracture site without definiteentrapment. No focal fluid collection. The visualized muscles areintact. Bone/joint: There are multiple fractures of the right tibia and fibula, including: * Acute, mildly displaced comminuted proximal fibula fracture. * Acute, comminuted and displaced vincenzo-hardware fracture of mid fibulardiaphysis with medial angulation of the distal fracture fragments. Theproximal portion of the plate is lifted away from the adjacent fibula. * Acute, comminuted and severely displaced fracture of the mid tibiadiaphysis with medial angulation of the distal fracture fragment and withposterior and medial displacement of the distal fracture fragment. Nodefinite intra-articular extension. * No knee or ankle dislocation. Limited evaluation of vasculature secondary to lack of contrast. IMPRESSION: 1. Proximal and mid vincenzo-hardware fibula fractures as described above. 2. Comminuted and severely displayed fracture of the mid tibia. 3. Associated soft tissue edema and hematoma. CT TIBIA RIGHT W/O CONTRAST MACRO: None I have personally reviewed the images and agree with the resident's interpretation. Authorizing ProviderResult TypeResult Janet CASSIDY CT SCANFinal Result * XR TIBIA RIGHT 2 VIEWS (11/13/2024 1:58 PM EDT)Anatomical RegionLaterality ModalityXR Right Lower Extremity, Lower LegRightComputed RadiographySpecimen (Source)Anatomical Location / LateralityCollection Method / VolumeCollection TimeReceived Time11/13/2024 2:12 PM EDT Narrative 11/13/2024 2:12 PM EDT EXAMINATION: XR TIBIA RIGHT 2 VIEWSPRO/RT 11/13/2024 01:58 PM CLINICAL HISTORY: post splint ASSOCIATED DIAGNOSIS: ORDERING PROVIDER: [employer] NOTE: COMPARISON: XRAY RIGHT LOWER EXTREMITY IMG IMPORT(KEYUR) 11/13/2024 5:53 AM IMPRESSION: ?? Acute, displaced fractures of the right distal tibia/fibula and of the proximal fibula status post splinting without significant change in alignment. Right tibia and fibula MACRO: None Procedure Note Agustin York MD - 11/13/2024 EXAMINATION: XR TIBIA RIGHT 2 VIEWSPRO/RT 11/13/2024 01:58 PM CLINICAL HISTORY: post splint ASSOCIATED DIAGNOSIS: ORDERING PROVIDER: [employer] NOTE: COMPARISON: XRAY RIGHT LOWER EXTREMITY IMG IMPORT(KEYUR) 11/13/2024 5:53 AM IMPRESSION: Acute, displaced fractures of the right distal tibia/fibula and of theproximal fibula status post splinting without significant change inalignment. Right tibia and fibula MACRO: None Authorizing ProviderResult TypeResult StatusInga CASSIDY DIAGNOSTIC X-RAY Final Result * XR FOOT LEFT 3 VIEWS (11/13/2024 10:09 AM EDT)Anatomical RegionLaterality ModalityXR Left Lower Extremity, FootLeftComputed RadiographySpecimen (Source) Anatomical Location / LateralityCollection Method / VolumeCollection Time Received Time11/13/2024 10:19 AM EDT Narrative 11/13/2024 10:24 AM EDT EXAMINATION: XR FOOT LEFT 3 VIEWSPRO/LT 11/13/2024 10:09 AM CLINICAL HISTORY: trauma, fall with swelling and tenderness ASSOCIATED DIAGNOSIS: ORDERING PROVIDER: KIMBERLEY MIDDLETON NOTE: COMPARISON: None IMPRESSION: No definite acute left foot fracture or dislocation is identified. There is internal fixation of the left distal fibula. Degenerative changes of the midfoot and hindfoot. Sclerosis about the second metatarsal base may relate to a remote process versus summation artifact from overlying structures. Correlate with focal tenderness. Dorsal soft tissue swelling. No radiopaque foreign bodies. Left foot MACRO: None Procedure Note Agustin York MD - 11/13/2024 EXAMINATION: XR FOOT LEFT 3 VIEWSPRO/LT 11/13/2024 10:09 AM CLINICAL HISTORY: trauma, fall with swelling and tenderness ASSOCIATED DIAGNOSIS: ORDERING PROVIDER: KIMBERLEY MIDDLETON NOTE: COMPARISON: None IMPRESSION: No definite acute left foot fracture or dislocation is identified. Thereis internal fixation of the left distal fibula. Degenerative changes ofthe midfoot and hindfoot. Sclerosis about the second metatarsal base mayrelate to a remote process versus summation artifact from overlyingstructures. Correlate with focal tenderness. Dorsal soft tissue swelling.No radiopaque foreign bodies. Left foot MACRO: None Authorizing ProviderResult TypeResult StatusAli Jenna CASSIDY DIAGNOSTIC X-RAYFinal Result * XR ANKLE RIGHT 3 VIEWS (11/13/2024 10:09 AM EDT)Anatomical RegionLaterality ModalityXR Right Lower Extremity, AnkleRightComputed RadiographySpecimen (Source)Anatomical Location / LateralityCollection Method / VolumeCollection TimeReceived Time11/13/2024 10:16 AM EDT Narrative 11/13/2024 10:19 AM EDT EXAMINATION: XR ANKLE RIGHT 3 VIEWSPRO/RT 11/13/2024 10:09 AM CLINICAL HISTORY: fracture ASSOCIATED DIAGNOSIS: ORDERING PROVIDER: INGA MIDDLETON NOTE: COMPARISON: XRAY RIGHT LOWER EXTREMITY IMG IMPORT(KEYUR) 11/13/2024 5:53 AM IMPRESSION: Acute, comminuted and displaced fracture of the right distal tibia involving the distal diaphysis and extending to the metaphysis. There is lateral angulation of the distal fracture fragment. Questionable intra-articular extension to the tibial plafond. Remote internal fixation of the right distal fibula with acute fracture at the most proximal screw better visualized on same day tibia radiographs. Degenerative changes of the hindfoot and midfoot. Right ankle MACRO: None Procedure Note Agustin York MD - 11/13/2024 EXAMINATION: XR ANKLE RIGHT 3 VIEWSPRO/RT 11/13/2024 10:09 AM CLINICAL HISTORY: fracture ASSOCIATED DIAGNOSIS: ORDERING PROVIDER: INGA HURD TECHNRILEY NOTE: COMPARISON: XRAY RIGHT LOWER EXTREMITY IMG IMPORT(KEYUR) 11/13/2024 5:53 AM IMPRESSION: Acute, comminuted and displaced fracture of the right distal tibiainvolving the distal diaphysis and extending to the metaphysis. There islateral angulation of the distal fracture fragment. Questionableintra-articular extension to the tibial plafond. Remote internal fixationof the right distal fibula with acute fracture at the most proximal screwbetter visualized on same day tibia radiographs. Degenerative changes ofthe hindfoot and midfoot. Right ankle MACRO: None Authorizing ProviderResult TypeResult StatusInga CASSIDY DIAGNOSTIC X-RAY Final Result * XR KNEE RT ANY 4 OR MORE VIEWS (11/13/2024 10:09 AM EDT)Anatomical Region LateralityModalityXR Right Lower Extremity, KneeRightComputed Radiography Specimen (Source)Anatomical Location / LateralityCollection Method / Volume Collection TimeReceived Time11/13/2024 10:15 AM EDT Addenda Addendum by Agustin York MD on 11/14/2024 10:00 AM EDT Billing Correction Addendum: The exam was processed with an incorrect exam code. ??Exam charges have been eliminated and the examination has been reordered as accession number [id number] Narrative 11/13/2024 10:16 AM EDT EXAMINATION: XR KNEE RT ANY 4 OR MORE VIEWSPRO/RT 11/13/2024 10:09 AM CLINICAL HISTORY: fracture ASSOCIATED DIAGNOSIS: ORDERING PROVIDER: INGA HURD TECHNRILEY NOTE: COMPARISON: XRAY RIGHT LOWER EXTREMITY IMG IMPORT(KEYUR) 11/13/2024 5:53 AM IMPRESSION: Acute, comminuted and displaced fracture of the right proximal fibula without definite intra-articular extension. The distal femur and tibial plateau appear intact. No joint effusion is seen. ??The joint spaces are maintained. There is no abnormal radiopaque foreign body. Right knee MACRO: None Procedure Note Agustin York MD - 11/13/2024 EXAMINATION: XR KNEE RT ANY 4 OR MORE VIEWSPRO/RT 11/13/2024 10:09 AM CLINICAL HISTORY: fracture ASSOCIATED DIAGNOSIS: ORDERING PROVIDER: INGA HURD TECHNRILEY NOTE: COMPARISON: XRAY RIGHT LOWER EXTREMITY IMG IMPORT(KEYUR) 11/13/2024 5:53 AM IMPRESSION: Acute, comminuted and displaced fracture of the right proximal fibulawithout definite intra-articular extension. The distal femur and tibialplateau appear intact. No joint effusion is seen. The joint spaces aremaintained. There is no abnormal radiopaque foreign body. Right knee MACRO: None Authorizing ProviderResult TypeResult StatusInga CASSIDY DIAGNOSTIC X-RAY Edited Result - Final * XR KNEE RIGHT AP+LAT 2 VIEWS (11/13/2024 10:09 AM EDT)Anatomical Region LateralityModalityXR Right Lower Extremity, KneeRightComputed Radiography Specimen (Source)Anatomical Location / LateralityCollection Method / Volume Collection TimeReceived Time11/14/2024 9:56 AM EDT Narrative 11/14/2024 10:00 AM EDT Radiology Interpretation EXAMINATION: XR KNEE RT ANY 4 OR MORE VIEWSPRO/RT ?? 11/13/2024 10:09 AM CLINICAL HISTORY: fracture ASSOCIATED DIAGNOSIS: ORDERING PROVIDER: INGA HURD TECHNRILEY NOTE: COMPARISON: XRAY RIGHT LOWER EXTREMITY IMG IMPORT(KEYUR) 11/13/2024 5:53 AM IMPRESSION: Acute, comminuted and displaced fracture of the right proximal fibula without definite intra-articular extension. The distal femur and tibial plateau appear intact. No joint effusion is seen. ??The joint spaces are maintained. There is no abnormal radiopaque foreign body. Right knee MACRO: None Procedure Note Agustin York MD - 11/14/2024 Radiology Interpretation EXAMINATION: XR KNEE RT ANY 4 OR MORE VIEWSPRO/RT 11/13/2024 10:09 AM CLINICAL HISTORY: fracture ASSOCIATED DIAGNOSIS: ORDERING PROVIDER: [employer] H[employer] NOTE: COMPARISON: XRAY RIGHT LOWER EXTREMITY IMG IMPORT(KEYUR) 11/13/2024 5:53 AM IMPRESSION: Acute, comminuted and displaced fracture of the right proximal fibulawithout definite intra-articular extension. The distal femur and tibialplateau appear intact. No joint effusion is seen. The joint spaces aremaintained. There is no abnormal radiopaque foreign body. Right knee MACRO: None Authorizing ProviderResult TypeResult StatusInga CASSIDY DIAGNOSTIC X-RAY Final Result * CT T-SPINE/L-SPINE W/O CONTRAST (11/13/2024 9:37 AM EDT)Anatomical Region LateralityModalityCT Spine, T-spineN/AComputed TomographySpecimen (Source) Anatomical Location / LateralityCollection Method / VolumeCollection Time Received Time11/13/2024 9:50 AM EDT Narrative 11/13/2024 12:00 PM EDT EXAMINATION: CT T-SPINE/L-SPINE W/O CONTRASTPRO 11/13/2024 09:37 AM CLINICAL HISTORY: Trauma; 54 M, fall w/ open RLE fxs ASSOCIATED DIAGNOSIS: Trauma 54 M, fall w/ open RLE fxs ORDERING PROVIDER: KIMBERLEY WEST [employer] NOTE: COMPARISON: None TECHNIQUE: Thin axial images were obtained through the thoracic and lumbar spine without intravenous contrast. 2D sagittal and coronal reconstructions were obtained from the axial data. FINDINGS: There is slight irregularity of the anterosuperior aspect of T3 vertebral body as seen on (Series 1004, Image 53) and this is suspicious for a subtle fracture. There is no significant loss of height. Acute/subacute compression deformity of T8 with 10-15% height loss. There are multiple areas of subtle sclerosis involving the thoracic or lumbar vertebral bodies and sacrum. These may represent osteoblastic metastases versus due to tuberous sclerosis. Possibility ofthese sclerotic lesions because of tuberous sclerosis is most likely in the absence of a known malignancy. Elective further workup is recommended. Please see additional findings of stigmata of tuberous sclerosis on the dedicated CT chest abdomen pelvis. Mild retrolisthesis at L5-S1. Mild multileveldegenerative changes of the thoracic and lumbar spine. Visible sacrum and pelvis: No acute abnormality. IMPRESSION: Multiple findings as described above. Suspicion for subtle acute fracture of T3 and age-indeterminate subtle fracture of T8. MACRO: None I have personally reviewed the images and agree with the resident's interpretation. Procedure Note Luiz Call MD - 11/13/2024 EXAMINATION: CT T-SPINE/L-SPINE W/O CONTRASTPRO 11/13/2024 09:37 AM CLINICAL HISTORY: Trauma; 54 M, fall w/ open RLE fxs ASSOCIATED DIAGNOSIS: Trauma 54 M, fall w/ open RLE fxs ORDERING PROVIDER: KIM[employer]LEY [employer] NOTE: COMPARISON: None TECHNIQUE: Thin axial images were obtained through the thoracic and lumbarspine without intravenous contrast. 2D sagittal and coronalreconstructions were obtained from the axial data. FINDINGS: There is slight irregularity of the anterosuperior aspect of T3 vertebralbody as seen on (Series 1004, Image 53) and this is suspicious for asubtle fracture. There is no significant loss of height. Acute/subacute compression deformity of T8 with 10-15% height loss. There are multiple areas of subtle sclerosis involving the thoracic orlumbar vertebral bodies and sacrum. These may represent osteoblasticmetastases versus due to tuberous sclerosis. Possibility of thesesclerotic lesions because of tuberous sclerosis is most likely in theabsence of a known malignancy. Elective further workup is recommended.Please see additional findings of stigmata of tuberous sclerosis on thededicated CT chest abdomen pelvis. Mild retrolisthesis at L5-S1. Mildmultilevel degenerative changes of the thoracic and lumbar spine. Visible sacrum and pelvis: No acute abnormality. IMPRESSION: Multiple findings as described above. Suspicion for subtle acute fractureof T3 and age-indeterminate subtle fracture of T8. MACRO: None I have personally reviewed the images and agree with the resident's interpretation. Authorizing ProviderResult TypeResult StatusKimberley CASSIDY CT SCANFinal Result * CT CHEST/ABD/PELVIS W/ CONTRAST (11/13/2024 9:37 AM EDT)ComponentValueRef RangeTest MethodAnalysis TimePerformed AtPathologist SignatureCTDI VOL13.1 (mGy),12.3 (mGy)RADIOLOGYPHANTOM TYPEIE Body Dosimetry Phantom,IEC Body Dosimetry PhantomRADIOLOGYCT UMN6272.9 (mGy.cm)RADIOLOGYCT SeriesEntire body,Entire bodyRADIOLOGYAnatomical RegionLateralityModalityCT BodyN/AComputed TomographySpecimen (Source)Anatomical Location / LateralityCollection Method / VolumeCollection TimeReceived Time11/13/2024 9:58 AM EDT Narrative 11/13/2024 10:56 AM EDT EXAMINATION: CT CHEST/ABD/PELVIS W/ CONTRASTPRO 11/13/2024 09:37 AM CLINICAL HISTORY: Trauma; 54 M, fall w/ open RLE fxs ASSOCIATED DIAGNOSIS: Trauma 54 M, fall w/ open RLE fxs ORDERING PROVIDER: KIMBERLEY WEST TECHNRILEY NOTE: COMPARISON: None TECHNIQUE: Contiguous axial images were obtained through the chest abdomen and pelvis from the level of the thoracic inlet through the pubic symphysis following administration of ??intravenous contrast. MPR sagittal and coronal reconstructions were obtained from the axial data. Before infusion of in travenous contrast, radiology personnel investigated the possibility of an allergic history and of any history of reaction to iodinated contrast material. Contrast Protocol: Omnipaque 350 [>or =100lb] 100 ml [<100 lb] 1 ml per 1 lb. INTRA-PROCEDURE MEDS: iohexol (OMNIPAQUE) 350 MG/ML injection 100 mL Route: Intravenous FINDINGS: The examination is degraded by motion artifact. Cardiovasculature: Unremarkable Mediastinum/Pericardium: Unremarkable Pleura: Unremarkable Central Airways: Widely patent. Lungs: Bilateral atelectasis. No focal lung contusion. Nodules: No nodules are present that require follow up. Rounded left lower lobe pulmonary nodule measuring 2.2 x 1.8 cm with smooth margins most likely represents a pulmonary hamartoma. Multiple tinycalcified granulomas. Lymph Nodes: No thoracic lymphadenopathy is evident. Hepatobiliary: Unremarkable liver without biliary dilation. Multiple hepatic hypodensities are present. Some of these hypodensities contain macroscopic fat. For example, a segment 1 lesion measures 1.9 cm in diameter and has fat density (Series 3, Image 101). This is consistent with some combination of hepatic cysts and angiomyolipomas. Hydropic gallbladder measuring up to 4.2 cm in caliber. No radiopaque gallstones. No pericholecystic inflammation. Pancreas: Unremarkable Spleen: Unremarkable Adrenal Glands: Unremarkable Kidneys, ureters, and bladder: No calculi or hydroureteronephrosis. Multiple cystic structures throughout the kidneys some of which are too small to characterize. Some of the structures are indeterminate such as for example in the left interpolar region measuring 1.6 cm (Series 3, Image 137), left superior pole measuring 1.6 cm (Series 3, Image 127) , or right interpolar region measuring 2.2 cm (Series 3, Image 143). No definite angiomyolipoma identified. Symmetric nephrograms. Severely distended urinary bladder with an estimated volume of 3 L. Abdominal and pelvic vasculature: Unremarkable GI tract: Small hiatal hernia. No evidence of obstruction. The appendix is within normal limits. Large volume of stool within the colon. Peritoneum and retroperitoneum: No free fluid or free air. Lymph Nodes: No lymphadenopathy. Prostate and seminal vesicles: Unremarkable Visualized musculoskeletal structures: Acute mildly displaced fracture of the right distal clavicle. Multiple bilateral remote rib fractures of different ages, including healing subacute fractures ofthe left lateral sixth through eighth ribs. See separately dictated CT of the thoracic and lumbar spine for spine findings. Bilateral gynecomastia. IMPRESSION: 1. ??Acute mildly displaced fracture of the right distal clavicle. See separately dictated CT of the thoracic and lumbar spine for spine findings. 2. ??Severely distended urinary bladder with an estimated volume of 3 L. Recommend decompression. 3. ??No evidence of visceral injury. 4. 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 5. ??Multiple indeterminate renal cystic structures. Recommend further nonemergent characterizationwith outpatient renal protocol MRI with and without contrast. 6. ??Large volume of stool within the colon. MACRO: (-I1-) [ I have personally reviewed the images and agree with the resident's interpretation. Authorizing ProviderResult TypeResult StatusAli Jenna CASSIDY CT SCANFinal Result * CT C-SPINE W/O CONTRAST (11/13/2024 9:37 AM EDT)Anatomical RegionLaterality ModalityCT C-Spine, C-spineN/AComputed TomographySpecimen (Source)Anatomical Location / LateralityCollection Method / VolumeCollection TimeReceived Time 11/13/2024 9:47 AM EDT Narrative 11/13/2024 11:49 AM EDT EXAMINATION: CT C-SPINE W/O CONTRASTPRO 11/13/2024 09:37 AM CLINICAL HISTORY: Trauma; 54 M, fall w/ open RLE fxs ASSOCIATED DIAGNOSIS: Trauma 54 M, fall w/ open RLE fxs ORDERING PROVIDER: KIMBERLEY MIDDLETON NOTE: COMPARISON: None TECHNIQUE: Thin isotropic axial images were obtained from the skull base to the upper thoracic spine without intravenous contrast. 2D sagittal and coronal reconstructions were obtained from the axialdata. FINDINGS: Vertebrae: No acute fracture or traumatic malalignment. No aggressive osseous lesions. Tiny ossific density at the right occipital condyle on coronal images is favored to reflect an osteophyte. Multilevel degenerative changes of the cervical and upper thoracic spine. Soft Tissues: No acute abnormality. IMPRESSION: No acute cervical spine fracture or traumatic malalignment. MACRO: None I have personally reviewed the images and agree with the resident's interpretation. Procedure Note Luiz Call MD - 11/13/2024 EXAMINATION: CT C-SPINE W/O CONTRASTPRO 11/13/2024 09:37 AM CLINICAL HISTORY: Trauma; 54 M, fall w/ open RLE fxs ASSOCIATED DIAGNOSIS: Trauma 54 M, fall w/ open RLE fxs ORDERING PROVIDER: KIMBERLEY MIDDLETON NOTE: COMPARISON: None TECHNIQUE: Thin isotropic axial images were obtained from the skull baseto the upper thoracic spine without intravenous contrast. 2D sagittal andcoronal reconstructions were obtained from the axial data. FINDINGS: Vertebrae: No acute fracture or traumatic malalignment. No aggressiveosseous lesions. Tiny ossific density at the right occipital condyle on coronal images isfavored to reflect an osteophyte. Multilevel degenerative changes of the cervical and upper thoracicspine. Soft Tissues: No acute abnormality. IMPRESSION: No acute cervical spine fracture or traumatic malalignment. MACRO: None I have personally reviewed the images and agree with the resident's interpretation. Authorizing ProviderResult TypeResult StatusKimberley CASSIDY CT SCANFinal Result * CT HEAD W/O CONTRAST (11/13/2024 9:37 AM EDT)ComponentValueRef RangeTest MethodAnalysis TimePerformed AtPathologist SignatureCTDI VOL67.5 (mGy),28.2 (mGy)RADIOLOGYPHANTOM TYPEIEC Head Dosimetry Phantom,IEC Head Dosimetry PhantomRADIOLOGYCT KLT1721.5 (mGy.cm)RADIOLOGYCT SeriesHead,HeadRADIOLOGY Anatomical RegionLateralityModalityCT Head, HeadN/AComputed TomographySpecimen (Source)Anatomical Location / LateralityCollection Method / VolumeCollection TimeReceived Time11/13/2024 9:41 AM EDT Narrative 11/13/2024 12:07 PM EDT EXAMINATION: CT HEAD W/O CONTRASTPRO 11/13/2024 09:37 AM CLINICAL HISTORY: Trauma; 54 M, fall w/ open RLE fxs ASSOCIATED DIAGNOSIS: Trauma 54 M, fall w/ open RLE fxs ORDERING PROVIDER: KIMBERLEY MIDDLETON NOTE: COMPARISON: None TECHNIQUE: Thin axial imaging of the head was performed without intravenous contrast. FINDINGS: No mass or acute hemorrhage. No evidence of acute infarct. Multifocal intraparenchymal calcifications compatible with documented history of tuberous sclerosis. Mild generalized brain parenchymal volume loss with commensurate ventricular caliber. Scattered patchy foci of white matter hypoattenuation, most likely mild chronic microvascular angiopathy. The skull, paranasal sinuses and tympanomastoid cavities are normal. ?? IMPRESSION: No acute intracranial abnormality. Stigmata of tuberous sclerosis. MACRO: None I have personally reviewed the images and agree with the resident's interpretation. Procedure Note Luiz Call MD - 11/13/2024 EXAMINATION: CT HEAD W/O CONTRASTPRO 11/13/2024 09:37 AM CLINICAL HISTORY: Trauma; 54 M, fall w/ open RLE fxs ASSOCIATED DIAGNOSIS: Trauma 54 M, fall w/ open RLE fxs ORDERING PROVIDER: KIMBERLEY MIDDLETON NOTE: COMPARISON: None TECHNIQUE: Thin axial imaging of the head was performed withoutintravenous contrast. FINDINGS: No mass or acute hemorrhage. No evidence of acute infarct. Multifocal intraparenchymal calcifications compatible with documented history oftuberous sclerosis. Mild generalized brain parenchymal volume loss with commensurateventricular caliber. Scattered patchy foci of white matterhypoattenuation, most likely mild chronic microvascular angiopathy. The skull, paranasal sinuses and tympanomastoid cavities are normal. IMPRESSION: No acute intracranial abnormality. Stigmata of tuberous sclerosis. MACRO: None I have personally reviewed the images and agree with the resident's interpretation. Authorizing ProviderResult TypeResult Hema CASSIDY CT SCANFinal Result * XRAY RIGHT LOWER EXTREMITY IMG IMPORT(KEYUR) (11/13/2024 9:14 AM EDT)Specimen (Source)Anatomical Location / LateralityCollection Method / VolumeCollection TimeReceived Time Narrative Authorizing ProviderResult TypeResult Hema CASSIDY DIAGNOSTIC X-RAYFinal Result * (ABNORMAL) LACTIC ACID (11/13/2024 9:05 AM EDT)ComponentValueRef RangeTest MethodAnalysis TimePerformed AtPathologist SignatureLactate2.5(H)0.5 - 1.6 mmol/L11/13/2024 9:33 AM [facility] PATHOLOGY LABORATORYSpecimen (Source) Anatomical Location / LateralityCollection Method / VolumeCollection Time Received TimeBloodBLOOD SPECIMEN / UnknownVenipuncture / Kbaweqk6411/13/2024 9:05 AM EDT11/13/2024 9:25 AM EDT Narrative [facility] [[email or web address] PATHOLOGY LABORATORY - 11/13/2024 9:33 AM EDT This test was developed, and its performance characteristics determined by the Department of Pathology of [facility]. It has not been cleared or approved by the FDA. This test is used for clinical purposes only. Authorizing ProviderResult TypeResult Hema West MD98 GENERAL LABFinal ResultPerforming OrganizationAddressCity/State/ZIP CodePhone Number [facility] [[email or web address] PATHOLOGY LABORATORY [address] [place] [phone] * (ABNORMAL) CBC WITH DIFFERENTIAL (11/13/2024 9:04 AM EDT)ComponentValueRef RangeTest MethodAnalysis TimePerformed AtPathologist FvtloyzttDGY74.0(H)4.5 - 11.5 K/uL11/13/2024 9:48 [facility] LABORATORYRBC3.83(L)4.50 - 5.90 M/uL11/13/2024 9:48 [facility] PFAQATPTFQZiorevowxh92.7(L)13.9 - 16.3 g/dL11/13/2024 9:48 [facility] QYYDBCVJDCKlpgdenbaz46.0(L)41.0 - 53.0 %11/13/2024 9:48 AM [facility] PATHOLOGY EWOLJZXRCQODY5284 - 100 fL11/13/2024 9:48 AM [facility] PATHOLOGY RBIYRAFEHMAPP61.226.0 - 34.0 pg11/13/2024 9:48 AM [facility] PATHOLOGY NUNTIPNCTUIBUM99.432.0 - 35.9 g/dL11/13/2024 9:48 AM [facility] PATHOLOGY ZWTPDOEQFXCigketxx390341 - 400 K/11/13/2024 9:48 AM [facility] PATHOLOGY LABORATORYRDW-CV13.711.5 - 14.5 %11/13/2024 9:48 AM [facility] PATHOLOGY LABORATORYMPV8.47.5 - 11.2 fL11/13/2024 9:48 AM [facility] PATHOLOGY LABORATORY Inmulyuqiaz10.0(H)31.0 - 76.0 %11/13/2024 9:48 AM [facility] PATHOLOGY LABORATORY Neutrophil #11.07(H)1.50 - 8.00 K/11/13/2024 9:48 AM [facility] PATHOLOGY LABORATORYLymphocytes5.6(L)24.0 - 44.0 %11/13/2024 9:48 AM [facility] PATHOLOGY LABORATORYLymphocytes #0.73(L)1.00 - 4.80 K11/13/2024 9:48 AM [facility] PATHOLOGY LABORATORYMonocytes9.12.0 - 11.0 %11/13/2024 9:48 AM [facility] PATHOLOGY LABORATORYMonocyte #1.18(H)0.20 - 1.00 K/11/13/2024 9:48 AM [facility] PATHOLOGY LABORATORYEosinophil0.10.1 - 4.0 %11/13/2024 9:48 AM [facility] PATHOLOGY LABORATORYEosinophil #0.010.00 - 0.70 K11/13/2024 9:48 AM [facility] PATHOLOGY LABORATORYBasophils0.3<=1.9 %11/13/2024 9:48 AM [facility] PATHOLOGY LABORATORYBasophil #0.030.00 - 0.20 K11/13/2024 9:48 AM [facility] PATHOLOGY PSBJMYRXXPVGJ25<= 9:48 AM [facility] PATHOLOGY LABORATORYSpecimen (Source)Anatomical Location / LateralityCollection Method / VolumeCollection TimeReceived TimeBloodBLOOD SPECIMEN / UnknownVenipuncture / Zvbmbrh1511/13/2024 9:04 AM EDT11/13/2024 9:28 AM EDT Narrative Authorizing ProviderResult TypeResult Hema CASSIDY LAB ORDER ONLYFinal ResultPerforming OrganizationAddressCity/State/ZIP CodePhone Number [facility] [[email or web address] PATHOLOGY LABORATORY [address] [place] [phone] * HIV1 HIV2 AGAB SCRN (11/13/2024 9:04 AM EDT)ComponentValueRef RangeTest Method Analysis TimePerformed AtPathologist SignatureHIV Ag-Ab ScreenNon-Reactive Non-Rddbfyrp87/21/2025 11:30 AM [facility] PATHOLOGY LABORATORYComment:No laboratory evidence for HIV Infection. Negative result does not rule out acute HIV infection. Ifacute HIV infection is suspected, recommend ordering an HIV- 1 RNA quanitification test.Specimen (Source)Anatomical Location / Laterality Collection Method / VolumeCollection TimeReceived TimeBloodBLOOD SPECIMEN / UnknownVenipuncture / Tgxsrqf3911/13/2024 9:04 AM EDT11/13/2024 9:28 AM EDT Narrative [facility] [[email or web address] PATHOLOGY LABORATORY - 11/13/2024 11:30 AM EDT HIV Information: ??[place] Rev. code 3701.243(E): This information has been disclosed to you from confidential records protected from disclosure by state law. ??You shall make no further disclosure of this information without the specific, written, and informed release of the individual to whom it pertains, or as otherwise permitted by state law. ??A general authorization for the release of medical or other information is not sufficient for the purpose of the release of HIV test results or diagnoses. Authorizing ProviderResult TypeResult Hema CASSIDY HIV/HEP/SYPH TESTING Final ResultPerforming OrganizationAddressCity/State/[facility] CodePhone Number [facility] [[email or web address] PATHOLOGY LABORATORY [address] [place] [address] * (ABNORMAL) BASIC METABOLIC PANEL (11/13/2024 9:04 AM EDT)ComponentValueRef RangeTest MethodAnalysis TimePerformed AtPathologist VeddgvgtaPkmepoy345(H)74 - 109 mg/dL11/13/2024 10:22 AM [facility] PATHOLOGY YYNSGMRXQHLlnnys650510 - 145 mmol/L11/13/2024 10:22 AM [facility] PATHOLOGY LABORATORYPotassium4.63.5 - 5.0 mmol/L11/13/2024 10:22 AM [facility] PATHOLOGY LABORATORYCarbon Zjgugle7747 - 31 mmol/L11/13/2024 10:22 AM [facility] PATHOLOGY KYAUJQOELZNxbwkclf733(H)98 - 107 mmol/L11/13/2024 10:22 AM [facility] PATHOLOGY LABORATORYBlood Urea Anfqbouw99(H)7 - 25 mg/dL11/13/2024 10:22 AM [facility] PATHOLOGY LABORATORYCreatinine2.03(H) 0.70 - 1.30 mg/dL11/13/2024 10:22 AM [facility] PATHOLOGY LABORATORYCalcium8.98.6 - 10.3 mg/dL11/13/2024 10:22 AM [facility] PATHOLOGY LABORATORYAnion Bmq3518 - 20 11/13/2024 10:22 AM [facility] PATHOLOGY LABORATORYEstimated GFR (CKD-EPI)38(L) >=60 mL/min/1.88wdj2711/13/2024 10:22 AM [facility] PATHOLOGY LABORATORYComment: 2020 CKD EPI Equation using Creatinine without Race Comment: ??Estimated glomerular filtration rate (eGFR) is calculated without a race coefficient. Values should be interpreted in the context of the patient's full clinical presentation. Reference: 1. Michael C, Linnea M, Lele PEREZ, et al.. A Unifying Approach for GFR Estimation: Recommendations of the NKF-ASN Task Force on Reassessing the Inclusion of Race in Diagnosing Kidney Disease. AmericanJournal of Kidney Diseases 202;79(2):268-88.e1. 2. N Engl J Med 2021 Vol. 385 Issue 19 Pages 8401-4584 Specimen (Source)Anatomical Location / LateralityCollection Method / Volume Collection TimeReceived TimeBloodBLOOD SPECIMEN / UnknownVenipuncture / Unknown 11/13/2024 9:04 AM EDT11/13/2024 9:28 AM EDT Narrative Authorizing ProviderResult TypeResult StatusAli Jenna VENCES GENERAL LABFinal ResultPerforming OrganizationAddgila regional medical centerCity/State/ZIP CodePhone Number [facility] [[email or web address] PATHOLOGY LABORATORY [address] [place] [address] * TYPE AND SCREEN (11/13/2024 9:04 AM EDT)ComponentValueRef RangeTest Method Analysis TimePerformed AtPathologist SignatureABO Rh TypeA Piiyuotq54/21/2025 11:17 AM [facility] PATHOLOGY LABORATORYAb Screen MfmtpoTzosyfpd22/21/2025 11:17 AM [facility] PATHOLOGY LABORATORYSpecimen Expiration Gmcf1048424296768761/21/2025 11:17 AM [facility] PATHOLOGY LABORATORYABO Rh/Amairani/TXRX HistoryA Positive 11/13/2024 11:17 AM [facility] PATHOLOGY LABORATORYSpecimen (Source)Anatomical Location / LateralityCollection Method / VolumeCollection TimeReceived Time BloodBLOOD SPECIMEN / UnknownVenipuncture / Hwxsugz1411/13/2024 9:04 AM EDT 11/13/2024 9:56 AM EDT Narrative Authorizing ProviderResult TypeResult StatusKimberley CASSIDY BLOOD BANKFinal Result Performing OrganizationAddUPMC Magee-Womens Hospitalty/State/ZIP CodePhone Number [email or web address] PATHOLOGY LABORATORY [address] [place] [phone] * (ABNORMAL) PROTHROMBIN TIME AND INR (11/13/2024 9:04 AM EDT)ComponentValueRef RangeTest MethodAnalysis TimePerformed AtPathologist DkztfhraeJqncjfa11.59.7 - 12.9 sec11/13/2024 10:16 AM [facility] PATHOLOGY LABORATORYINR1.12(H)0.90 - 1.10 11/13/2024 10:16 AM [facility] PATHOLOGY LABORATORYSpecimen (Source)Anatomical Location / LateralityCollection Method / VolumeCollection TimeReceived Time BloodBLOOD SPECIMEN / UnknownVenipuncture / Dncqxru7411/13/2024 9:04 AM EDT 11/13/2024 9:28 AM EDT Narrative Authorizing ProviderResult TypeResult Hema VENCES GENERAL LABFinal ResultPerforming OrganizationAddressCity/State/ZIP CodePhone Number [facility] [[email or web address] PATHOLOGY LABORATORY [address] [place] [address] * (ABNORMAL) PARTIAL THROMBOPLASTIN TIME (11/13/2024 9:04 AM EDT)ComponentValue Ref RangeTest MethodAnalysis TimePerformed AtPathologist SignatureaPTT<21(L)25 - 37 sec11/13/2024 10:27 AM [facility] PATHOLOGY LABORATORYSpecimen (Source) Anatomical Location / LateralityCollection Method / VolumeCollection Time Received TimeBloodBLOOD SPECIMEN / UnknownVenipuncture / Gwvknvb9111/13/2024 9:04 AM EDT11/13/2024 9:28 AM EDT Narrative Authorizing ProviderResult TypeResult StatusKimberley VENCES GENERAL LABFinal ResultPerforming OrganizationAddressCity/State/ZIP CodePhone Number [facility] [[email or web address] PATHOLOGY LABORATORY [address] [place] [address] * ALCOHOL (ETHANOL), BLOOD (11/13/2024 9:04 AM EDT)ComponentValueRef RangeTest MethodAnalysis TimePerformed AtPathologist SignatureEthanol<10None Detected mg/dL11/13/2024 10:22 AM [facility] PATHOLOGY LABORATORYSpecimen (Source) Anatomical Location / LateralityCollection Method / VolumeCollection Time Received TimeBloodBLOOD SPECIMEN / UnknownVenipuncture / Podcnfa6111/13/2024 9:04 AM EDT11/13/2024 9:28 AM EDT Narrative Authorizing ProviderResult TypeResult Hema VENCES GENERAL LABFinal ResultPerforming OrganizationAddressCity/State/ZIP CodePhone Number [facility] [[email or web address] PATHOLOGY LABORATORY [address] [place] [address] from Last 3 Months Insurance * Guarantor: Christina Segovia TypeRelation to PatientDate of BirthPhoneBilling BhctpmmHvclzfgzzlzthTpsl1970 [address] [place] [address] Advance Directives * Full Code (Latest Code Status on File) Date ActivatedDate InactivatedComments11/13/2024 3:19 PM11/18/2024 11:15 PM QuestionAnswerCommentsDocumentation of decision process for this code status:* Patient and surrogate unable or unavailable to discuss.?? There is no previous documentation of code status.?? Defaulting to Full Code Care Teams Team MemberRelationshipSpecialtyStart DateEnd Date Dev Hein MD [address] [place] [address] FecnzclrmDbryvcyjfqpd57/6/25
--- OUTSIDE RECORDS SUMMARY | 2025-01-11 12:30 | XMS_ITS | Encounter Summary ---
Author Organization [facility] Address [address] [place] [address] Care Team Providers Care Chain Maker Hand Name Role Phone Go Foster Primary Care Provider [phone] Source Comments In the event this information is protected by the Federal Confidentiality of Alcohol and Drug AbusePatient Records regulations: The Federal rules restrict any use of the information to criminally investigate or prosecute any alcohol or drug abuse patient.[facility] Encounter Details DateTypeDepartmentCare Team (Latest Contact Info)Rmakhoqnwig53/10/2025[place] [address] Maico Monreal APRN.[facility]ATORY [employer] [address] [place] [address] Social History Tobacco UseTypesPacks/DayYears UsedDateSmoking Tobacco: NeverAlcohol UseStandard Drinks/WeekCommentsNo0 (1 standard drink = 0.6 oz pure alcohol)PHQ-2AnswerDate RecordedPHQ-2 vwebz965/13/2025Area Deprivation IndexAnswerDate RecordedNational Score (1-100), lower number is lower riskNot on file01/29/2020State Score (1- 10), lower number is lower riskNot on file01/29/2020Data from: https://www.neighborhoodatlas.[facility]/. Last address used for calculationNot on file01/29/2020Sex and Gender InformationValueDate RecordedSex Assigned at BirthNot on fileLegal NpcUbxo65/02/2012 8:41 AM ESTGender Identity Male01/31/2021 10:38 AM ESTSexual OrientationNot on filedocumented as of this encounter Progress Notes * Maico Monreal APRN.JEREMY - 01/02/2025 12:00 AM EST [facility] NOTE NAME: ALETHEA LEI [facility] NO.: [id number] DATE OF SERVICE: 01/02/2025 ATTENDING PHYSICIAN: JEREMY Fleming [facility] Chart note REASON FOR VISIT: The patient is a resident of [facility]. This is a skilled visit for fracture low end of the right tibia and fibula, subsequent encounter with routine healing and other medical concerns. Upon entering the room, found the patient sleeping on right-sided lying position. Thepatient does not appear to be in distress or discomfort. The patient is easily aroused. The patientdoes participate somewhat in the assessment process. States he does not have pain. No cough. Does not feel sick to his stomach. Has been eating and drinking well. When asking the patient to urinate, the patient does not respond to this. Record review does show the patient has been voiding when being toileted. The patient was ordered Martini catheter. Staff did find difficulties with catheter insertion. MEDICATIONS: Have been reviewed. EXAMINATION: Temp 98.0, blood pressure 127/81, pulse 84, respirations 16, pulse ox 97% on room air,weight 184.4 pounds. Respiratory: Respirations are easy and unlabored with patient at rest. Lung sounds are clear. Heart: Rate and rhythm regular. Abdomen: Soft, no noted tenderness with palpation. Bowel sounds present x4. No bladder distention noted with palpation. Extremities: Nonedematous right lower extremity. The patient's fractured wound is up while in bed. The patient has unknowingly movedthe right lower extremity slightly. Cap refill is brisk. IMPRESSION AND PLAN: 1. Fracture of the low end of the right tibia and fibula, subsequent encounterwith routine healing. The patient does not appear to have pain. Does have acetaminophen for lesser pain, oxycodone for more severe pain. 2. Hypertension, the patient has fair blood pressure control, continue antihypertensives. 3. Urinary retention. The patient is voiding when being toileted. The patient is following with Urology Services on January 12, 2025. 4. Hyperlipidemia, on statins. 5. Hypothyroidism, on levothyroxine. DICTATED BY: JEREMY Fleming/[place] JOB# [id number] [facility] documented in this encounter Plan of Treatment Not on file documented as of this encounter Visit Diagnoses Not on filedocumented in this encounter Care Teams Team MemberRelationshipSpecialtyStart DateEnd Date Go Foster DO PCP - General10/24/12documented as of this encounter
--- OUTSIDE RECORDS SUMMARY | 2025-01-11 12:30 | XMS_ITS | Encounter Summary ---
Author Organization [facility] Address [address] [place] [address] Care Team Providers Care Weight Recorder Name Role Phone Go Foster Primary Care Provider [phone] Source Comments In the event this information is protected by the Federal Confidentiality of Alcohol and Drug AbusePatient Records regulations: The Federal rules restrict any use of the information to criminally investigate or prosecute any alcohol or drug abuse patient.[facility] Encounter Details DateTypeDepartmentCare Team (Latest Contact Info)Pxyibxelcro00/18/2025 Patient Msg Medical Records [address] [place] [address] Provider, [facility] Update for Our Medicare Patients Regarding Virtual Visits Social History Tobacco UseTypesPacks/DayYears UsedDateSmoking Tobacco: NeverAlcohol UseStandard Drinks/WeekCommentsNo0 (1 standard drink = 0.6 oz pure alcohol)PHQ-2AnswerDate RecordedPHQ-2 iegzr405/13/2025Area Deprivation IndexAnswerDate RecordedNational Score (1-100), lower number is lower riskNot on file01/29/2020State Score (1- 10), lower number is lower riskNot on file01/29/2020Data from: https://www.neighborhoodatlas.[facility].edu/. Last address used for calculationNot on file01/29/2020Sex and Gender InformationValueDate RecordedSex Assigned at BirthNot on fileLegal EveGefd98/02/2012 8:41 AM ESTGender Identity Male01/31/2021 10:38 AM ESTSexual OrientationNot on filedocumented as of this encounter Plan of Treatment Not on file documented as of this encounter Visit Diagnoses Not on filedocumented in this encounter Care Teams Team MemberRelationshipSpecialtyStart DateEnd Date Go Foster DO PCP - General10/24/12documented as of this encounter
--- OUTSIDE RECORDS SUMMARY | 2025-01-11 12:30 | XMS_ITS | Encounter Summary ---
Author Organization [facility] Address [address] [place] [address] Care Team Providers Care Strategic Development Manager Name Role Phone Go Foster Primary Care Provider [phone] Source Comments In the event this information is protected by the Federal Confidentiality of Alcohol and Drug AbusePatient Records regulations: The Federal rules restrict any use of the information to criminally investigate or prosecute any alcohol or drug abuse patient.[facility] Encounter Details DateTypeDepartmentCare Team (Latest Contact Info)Wjojkttrltd71/06/2025[place] [address] Maico Monreal, [employer]RE[employer] [address] [place] [address] Social History Tobacco UseTypesPacks/DayYears UsedDateSmoking Tobacco: NeverAlcohol UseStandard Drinks/WeekCommentsNo0 (1 standard drink = 0.6 oz pure alcohol)PHQ-2AnswerDate RecordedPHQ-2 /13/2025Area Deprivation IndexAnswerDate RecordedNational Score (1-100), lower number is lower riskNot on file01/29/2020State Score (1- 10), lower number is lower riskNot on file01/29/2020Data from: https://www.neighborhoodatlas.[facility]/. Last address used for calculationNot on file01/29/2020Sex and Gender InformationValueDate RecordedSex Assigned at BirthNot on fileLegal QnsKfyp99/02/2012 8:41 AM ESTGender Identity Male01/31/2021 10:38 AM ESTSexual OrientationNot on filedocumented as of this encounter Progress Notes * Maico Monreal APRN.JEREMY - 12/29/2024 12:00 AM EST [facility] NOTE NAME: ALETHEA LEI [facility] NO.: [id number] DATE OF SERVICE: 12/29/2024 ATTENDING PHYSICIAN: JEREMY Fleming [facility] Chart note REASON FOR VISIT: The patient is a resident of [facility]. This is a skilled visit for fracture of the right tibia and fibula, subsequent encounter. Upon entering the room, found the patientsleeping on left-sided lying position. The patient does not appear to be in distress or discomfort.When asking the patient how he feels, the patient states he is okay, but the patient is a poor historian and does not participate in assessment process. MEDICATIONS: Have been reviewed. EXAMINATION: Temp 98.2, blood pressure 132/86, pulse 74, respirations 18, pulse ox 96% on room air,weight 184.4 pounds. Respiratory: Respirations are easy and unlabored with patient at rest. Lung sounds are clear. Heart: Rate and rhythm regular. Abdomen: Soft and nontender with palpation. Bowel sounds present x4. No bladder distention noted with palpation. Martini catheter not intact at this time. Extremities: Nonedematous. Right pedal pulse is palpable. IMPRESSION AND PLAN: 1. Urinary retention. Order for Martini catheter reinforced yesterday. Urinalysis was sent out, this was on December 23, 2024. No results as of yet and the patient will follow with Urology Services. 2. Fracture of the right lower tib-fib, subsequent encounter. The patient was seen by Orthopedic Services yesterday. Continue acetaminophen for lesser pain, oxycodone for more severe pain. 3. Hypertension, the patient has fair blood pressure control, continue antihypertensives. DICTATED BY: JEREMY Fleming/AQT JOB# [id number] [facility] documented in this encounter Plan of Treatment Not on file documented as of this encounter Visit Diagnoses Not on filedocumented in this encounter Care Teams Team MemberRelationshipSpecialtyStart DateEnd Date Go Foster DO PCP - General10/24/12documented as of this encounter
--- OUTSIDE RECORDS SUMMARY | 2025-01-11 12:30 | XMS_ITS | Encounter Summary ---
Author Organization [facility] Address [address] [place] [id number] Care Team Providers Care Utilization Specialist Name Role Phone Go Foster Primary Care Provider [phone] Source Comments In the event this information is protected by the Federal Confidentiality of Alcohol and Drug AbusePatient Records regulations: The Federal rules restrict any use of the information to criminally investigate or prosecute any alcohol or drug abuse patient.[facility] Encounter Details DateTypeDepartmentCare Team (Latest Contact Info)Siavpjhpkah69/14/2025[place] [address] Maico Monreal, SPRING.[employer] MACHINE OPERATOR [address] [place] [address] Social History Tobacco UseTypesPacks/DayYears UsedDateSmoking Tobacco: NeverAlcohol UseStandard Drinks/WeekCommentsNo0 (1 standard drink = 0.6 oz pure alcohol)PHQ-2AnswerDate RecordedPHQ-2 bbwub777/13/2025Area Deprivation IndexAnswerDate RecordedNational Score (1-100), lower number is lower riskNot on file01/29/2020State Score (1- 10), lower number is lower riskNot on file01/29/2020Data from: https://www.neighborhoodatlas.[facility].edu/. Last address used for calculationNot on file01/29/2020Sex and Gender InformationValueDate RecordedSex Assigned at BirthNot on fileLegal XbeOjeg35/02/2012 8:41 AM ESTGender Identity Male01/31/2021 10:38 AM ESTSexual OrientationNot on filedocumented as of this encounter Progress Notes * Maico Monreal APRN.JEREMY - 01/06/2025 12:00 AM EST [facility] NOTE NAME: [facility] NO.: [id number] DATE OF SERVICE: 01/06/2025 ATTENDING PHYSICIAN: JEREMY Fleming [facility] Chart note REASON FOR VISIT: The patient is a resident of [facility]. This is a discharge visit for fracture of the lower end of the right tibia and fibula, subsequent encounter with routine healing and other medical concerns. The patient was admitted to [facility] from [facility] after having acute right spiral distal tibia fracture with posterior malleolar and right clavicle fracture secondary to accidental mechanical fall. The patient did have events while staying at [facility]. The patient did have urinary retention, but was able to urinate when he was ambulated to the bathroom and after toileting. Urinalysis was performed and results today showed the patient does have urinary tract infection. Cipro was started today. The patient states is anxious to go home to be with his friends. The patient is a resident of [facility]. DATE OF ADMISSION: November 18, 2024. DATE OF DISCHARGE: January 06, 2025. MEDICATIONS: 1. Keppra 500 mg 1 tab 2 times a day for seizures. 2. Levothyroxine 137 mcg 1 tab daily for hypothyroidism. 3. Calcium carbonate with vitamin D 600-10 mg/mcg 1 tab 2 times a day for supplement. 4. Clonidine 0.1 mg 1 tab 3 times a day for hypertension. 5. Paroxetine 30 mg 2 tabs at bedtime for depression. 6. Senna 8.6 mg at bedtime for constipation. 7. Amlodipine 10 mg 1 tab 1 time a day for hypertension. 8. MiraLAX 17 grams daily for constipation. 9. Benztropine 1 mg 1 tab 3 times a day for Parkinson-like symptoms. 10. Lipitor 40 mg 1 tab daily for hyperlipidemia. 11. Haloperidol 5 mg 3 tabs 2 times daily and 10 mg once daily for agitation. 12. Flomax 0.4 mg 1 tab at bedtime for urinary retention. 13. Nebivolol 5 mg 1 tab daily for hypertension. 14. Oxcarbazepine 600 mg 1 tab daily in the morning for seizure and 2 tabs at bedtime for seizure. 15. Buspirone 7.5 mg 1 tab 2 times a day for anxiety. The patient also has p.r.n. medications, Zofran, oxycodone, milk of magnesia, Fleet enema, acetaminophen. LABS REVIEWED: CBC on December 26, 2024, hematology abnormals, RBC 3.05, hemoglobin 9.3, hematocrit 28.9, eosinophil 0.10. Basic metabolic panel, report date December 28, 2024, abnormals glucose 61, creatinine 1.5, GFR 48, all other labs within normal range. SUBJECTIVE DATA: Found the patient lying in right-sided lying position, sleeping. The patient does not appear to be in distress or discomfort. When asking the patient if he is anxious to go home, thepatient does state he is. When asking the patient if he has pain, the patient states he does. When asking the patient if he is urinating, the patient states he is, but the patient does not offer muchinformation and does not participate any further in the assessment process. OBJECTIVE DATA: Vital Signs: Temp 97.6, blood pressure 144/82, pulse 88, respirations 18, pulse ox 97% on room air, weight 184.4 pounds. Respiratory: Respirations are easy and unlabored with patient at rest. Lung sounds are clear. Heart: Rate and rhythm regular. Abdomen: Soft and nontender with palpation. Bowel sounds present x4. Extremities: Nonedematous. Musculoskeletal: The patient does have right lower extremity slightly bent at the knee. When asking the patient if he can feel his foot or move his leg, the patient does not participate in this activity. The patient does have pedal pulse x2. IMPRESSION AND PLAN: 1. Urinary tract infection with urinary retention. The patient will follow with [facility]rology Services. Started on Cipro 500 mg p.o. b.i.d. x7 days and acidophilus for bowel health. The patient is also on Flomax. 2. Fracture of the right tibia and fibula, subsequent encounter with routine healing. The patient is following with [facility]. The patient has been up with [facility]. The patient hasno pain at this time, is on acetaminophen. 3. Hypertension, the patient has fair blood pressure control, on clonidine, amlodipine, nebivolol. 4. Hyperlipidemia, on Lipitor. 5. Hypothyroidism, on levothyroxine. 6. Depression and anxiety, on paroxetine, benztropine, haloperidol, buspirone. 7. Seizures. No seizure activity since the patient's stay, on Keppra, oxcarbazepine .. 8. Constipation, on senna and MiraLAX. The patient is stable at the time of discharge. The patient will be discharged to [facility] with current plan of care, medications and treatments. The patient will follow with primary care physician in 7 to 10 days. The patient will follow with Orthopedic Services as needed. The patientis authorized to be discharged home. Time spent on discharge, greater than 31 minutes. DICTATED BY: JEREMY Fleming/AMERICA JOB# [id number] [facility] documented in this encounter Plan of Treatment Not on file documented as of this encounter Visit Diagnoses Not on filedocumented in this encounter Care Teams Team MemberRelationshipSpecialtyStart DateEnd Date Go Foster DO PCP - [facility]10/24/12documented as of this encounter
--- OUTSIDE RECORDS SUMMARY | 2025-01-11 12:30 | XMS_ITS | CCD ---
Author Organization [facility] Care Team Providers Care Optometric Coordinator Name Role Phone Robbi PETERSEN Unavailable Unavailable FOSTERGO Unavailable Unavailable FOSTER, GO Ricci Unavailable Unavailable Nallely Parada Unavailable Cj Gayle Unavailable DO Go Foster Primary Care Provider [phone] DO Cj Gayle Attending Provider Unavailable Primary Care Provider UnavailDO Go Ryan Primary Care Provider DO Cj Gayle Attending Provider [phone] DO Go Foster Primary Care Provider [phone] DO Cj Gayle Attending Provider [phone] MD Nallely Parada Attending Provider [phone] Unavailable Primary Care Provider UnavailTRAN Wilkins Admitting Unavailable TRAN ELKINS Attending Unavailable OLGA, DR GO Ricci Primary Care Unavailable BRE, DR SANDY Velez Consulting Unavailable SHEILA .MICHELLE Consulting Unavailable TRAN ELKINS Consulting Unavailable FOSETR, DR GO Ricci Primary Care Unavailable WEST, DR NORMA Medellin Consulting Unavailable FOSTER, DR GO Ricci Admitting Unavailable FOSTER, DR GO Rcici Attending Unavailable FOSTER, DR GO Ricci Consulting [...] Consulting Unavailable FOSTER, GO Primary Care Physician FOSTER, GO Admitting Unavailable FOSTER, GO Attending Unavailable FOSTER, GO Attending Unavailable FOSTER, GO Admitting Unavailable FOSTER, GO Attending Unavailable FOSTER, GO Admitting Unavailable FOSTER, GO Attending Unavailable FOSTER, OG Admitting Unavailable Unallocated MD, Noms [facility] Go Foster MD Primary Care Provider Sue Patrick DO Unavailable Adams Weaver MD Attending Provider Geovanny Dong DO Attending Provider Go Foster DO Primary Care Provider [phone] Daljit Messina DO Admit Provider [phone] Ritu Cabrera MD Other Provider [phone] Denise Marin MD Other Provider Agusto GEAR HOBBER SET UP OPERATOR-CLinda Other Provider Unavailable Clint Brizuela MD Attending Provider Clint Brizuela MD Other Provider Luisa Santizo MD Other Provider Adams Weaver Attending Unavailable Adams Weaver Admlamont Unavailable Geovanny Dong Attending Unavailable Geovanny Dong Admitting Unavailable Foster, Go Ricci Primary Care Unavailable Daljit Messina Admitting Unavailabl e Ritu Cabrera Attending Unavailable Elashi, Essam Consulting Unavailable Runner, Linda Consulting Unavailable Gelacio, Clint Consulting Unavailable Bakhous, Aziz Consulting Unavailable Ana Maria Hsu APRN Attending Provider Ashanti Bautista Attending Unavailable Radha Kirkland Attending Unavailable MD HERBER GAGNON Admitting Unav ailable ALLY, MD CRAVEN Attending Unav ailable MD HERBER GAGNON Referring Unav ailable Ashanti Bautista Attending Unavailable MD HERBER GAGNON Attending Unav ailable MD HERBER GAGNON Referring Unav ailable VILLALOBOS, Chacha Consulting Unavailable ALLY, MD CRAVEN Admitting Unav ailable VILLALOBOS, [facility] Chacha Consulting Unavaila ble VILLALOBOS, Chacha Consulting Unavailable VILLALOBOS, Chacha Consulting Unavailable VILLALOBOS, Chacha Consulting Unavailable VILLALOBOS, Chacha Consulting Unavailable VILLALOBOS, Chacha Consulting Unavailable VILLALOBOS, Chacha Consulting Unavailable VILLALOBOS, Chacha Consulting Unavailable MD HERBER GAGNON Attending Unav ailable MD HERBER GAGNON Referring Unav ailable ALLY, MD CRAVEN Admitting Unav ailable ALLY, HERBER Attending Unavail able NKAPARNAAMHERBER HERNANDEZ Attending Unavail able NKHERBER CHERRY Referring Unavail able VILLALOBOS, Chacha Consulting Unavailable NKANSANKITAMMARY, HERBER Admitting Unavail able VILLALOBOS, [facility] Chacha Consulting Unavaila ble VILLALOBOS, Chacha Consulting Unavailable VILLALOBOS, Chacha Consulting Unavailable VILLALOBOS, Chacha Consulting Unavailable VILLALOBOS, Chacha Consulting Unavailable VILLALOBOS, Chacha Consulting Unavailable VILLALOBOS, Chacha Consulting Unavailable VILLALOBOS, Chacha Consulting Unavailable NKANSHERBER SEGOVIA Attending Unavail able GLENN BROWN Attending Unavailable GLENN BROWN Attending Unavailable GLENN BROWN Attending Unavailable GLENN BROWN Attending Unavailable GLENN BROWN Attending Unavailable GLENN BROWN Attending Unavailable ANA MARIA HUS Attending Unavailable GLENN BROWN Attending Unavailable GLENN BROWN Attending Unavailable GLENN BROWN Attending Unavailable MD HERBER GAGNON Attending Unav ailable Aidan, Jeny Attending Unavailable EDWIN, ITRI A Attending Unavailable EDWIN, ITRI A Admitting Unavailable EDWIN, ITRI A Attending Unavailable EDWIN, ITRI A Admitting Unavailable PROVIDER, UNKNOWN Admitting Unavailable PROVIDER, UNKNOWN Attending Unavailable DIVINA BARNHART Referring Unavailable PROVIDER, UNKNOWN Admitting Unavailable BROWNSARAH LCarol Attending Unavailable PROVIDER, UNKNOWN Admitting Unavailable PROVIDER, UNKNOWN Attending Unavailable PROVIDER, UNKNOWN Admitting Unavailable BROWN, SARAH LCarol Attending Unavailable PROVIDER, UNKNOWN Admitting Unavailable PROVIDER, UNKNOWN Attending Unavailable BROWNSARAH LCarol Referring Unavailable PROVIDER, UNKNOWN Attending Unavailable JOSE E ROSAS Admitting Unavailable AIDAN, JENY Referring Unavailable PROVIDER, UNKNOWN Admitting Unavailable PROVIDER, UNKNOWN Attending Unavailable BROWNSARAH LCarol Referring Unavailable PROVIDER, UNKNOWN Attending Unavailable MALUSO, JOSE E Admitting Unavailable AIDAN, JENY Referring Unavailable PROVIDER, UNKNOWN Attending Unavailable MALUSO, JOSE E Admitting Unavailable AIDAN, JENY Referring Unavailable AIDAN, JENY Referring Unavailable PROVIDER, UNKNOWN Attending Unavailable MALUSO, JOSE E Admitting Unavailable PROVIDER, UNKNOWN Attending Unavailable PROVIDER, UNKNOWN Admitting Unavailable AIDAN, JENY Referring Unavailable PROVIDER, UNKNOWN Attending Unavailable PROVIDER, UNKNOWN Admitting Unavailable AIDAN, JENY Referring Unavailable PROVIDER, UNKNOWN Admitting Unavailable AIDAN, JENY Referring Unavailable PROVIDER, UNKNOWN Attending Unavailable PROVIDER, UNKNOWN Admitting Unavailable AIDAN, JENY Referring Unavailable PROVIDER, UNKNOWN Attending Unavailable PROVIDER, UNKNOWN Attending Unavailable PROVIDER, UNKNOWN Admitting Unavailable AIDAN, JENY Referring Unavailable PROVIDER, UNKNOWN Attending Unavailable PROVIDER, UNKNOWN Admitting Unavailable AIDAN, JENY Referring Unavailable CONSULT, IP ORTHOPAEDIC TRAUMA Consulting U navailable AIDAN, JENY Referring Unavailable MALUSO, JOSE E Admitting Unavailable LADHA, ORIN Attending Unavailable [phone], IP TEAM TRAUMA Consulting Unavail able REQUEST, IP PHYSICAL THERAPY SERVICE Consulting Unavailable REQUEST, IP OCCUPATIONAL THERAPY SERVICE Consult ing Unavailable REQUEST, IP PLATE HANGER SERVICE Consulting Unavaila ble SUMEET CALI Attending Unavailable FOSTER, GO A Primary Care Unavailable SUMEET CALI Referring Unavailable SUMEET CALI Attending Unavailable ANA FOSTEREL A Primary Care Unavailable Allergies Allergy ClassificationReported Allergen(s)Allergy TypeDate of OnsetReaction(s) Facility (1 source)PERTUSSIS VACCINE,FLUID; Translations: [PERTUSSIS VACCINE,FLUID] Propensity to adverse reactions to drug (disorder)24-29-9244[facility]aafT[facility] (20 sources)Pertussis Vaccines; Translations: [Bordetella pertussis antigen (substance)]Propensity to adverse reactions to svzl92-50-4157UyscqnrChcdeOcxlwg (1 source)Pertussis VaccineDrug Jixxlfb80-43-1641Vmp [facility] Repository (12 sources)ARIPiprazole; Translations: [ARIPIPRAZOLE]Drug Ojahdfa66-30-5978 [facility]: (11 sources)Pertussis Vaccine; Translations: [PERTUSSIS VACCINE]Drug Allergy 13-11-5856FfhimgyTlktqOmkwue Medications Current Medications MedicationDrug Class(es)DatesSig (Normalized)Sig (Original)acetaminophen 500 mg oral tablet (20 sources)Start: 11-18-2024 End: 86-90-7001dbna 2 tablets by mouth every eight hours as neededacetaminophen (TYLENOL) 500 MG tablet Take 2 Tablets by mouth every 8 hours as needed. 90 Tablet 11/18/2024 12/18/2024 ActiveStart: 16-81-4109atme 1 tablet by mouth every four to six hours as needed for painAcetaminophen 650 mg Tablet Extended Release Active 650 MG PO EVERY 4-6 HOURS as needed for Pain September 24, 2021 12:00am Complies with drug therapyacetaminophen (Tylenol) 325 MG tablet Take by mouth ActiveamLODIPine 10 mg oral tablet (20 sources)Dihydropyridine Calcium Channel BlockerStart: 63-40-3448jenk 1 tablet by mouth once dailyamLODIPine (NORVASC) 10 MG tablet Take 10 mg by mouth daily. 09/07/2024 ActiveStart: 09-73-9493zedf 1 tablet by mouth once daily amLODIPine (Norvasc) 5 MG tablet Take 5 mg by mouth Daily 02/03/2024 Active aspirin 81 mg delayed release oral tablet (20 sources)Platelet Aggregation Inhibitor, Nonsteroidal Anti-inflammatory Drug Start: 11-19-2024 End: 34-11-0869kwmd 1 tablet by mouth twice dailyaspirin EC 81 MG tablet Take 1 Tablet by mouth 2 times a day. 84 Tablet 11/19/2024 12/31/2024 ActiveStart: 09-24-2021 End: 69-45-4345rbtb 1 tablet by mouth once dailyAspirin 81 mg Tablet,Delayed Release (Dr/Ec) Discontinued 81 MG PO Daily September 24, 2021 12:00am August 17, 2024 2:57amAspirin (ASPIR-81 ORAL) Take by mouth. SuspendedAspirin (ASPIR-81 ORAL) Take by mouth. Activetake 1 tablet by mouth once dailyAspir-Low 81 MG 1 tablet Orally Once a day ActiveAspirin (ASPIR-81 ORAL) Take by mouth. 0 Active atorvastatin 40 mg oral tablet (20 sources)HMG-CoA Reductase InhibitorStart: 38-86-4993aeas 1 tablet by mouth in the morningatorvastatin (Lipitor) 40 MG tablet Take 40 mg by mouth in the morning. 01/27/2023 Activebenztropine mesylate 1 mg oral tablet (20 sources)Anticholinergic, AntihistamineStart: 11-18-2024 End: 71-80-1550wbfo 1 tablet by mouth three times dailybenztropine (COGENTIN) 1 MG tablet Take 1 Tablet by mouth 3 times daily. 90 Tablet 11/18/2024 Active Start: 39-39-9870dxqr 1 tablet by mouth three times dailybenztropine 1 mg Tab 1 mg = 1 tab(s), Oral, TID, Refills(s) 0 Start Date: 09/07/24 Status: Ordered [facility] number: 1Start: 38-94-6666weie 1 mg by mouth once dailyBenztropine Active 1 MG PO Daily September 23, 2021 11:00pmtake 1 tablet by mouth twice daily benztropine (COGENTIN) 1 MG tablet Take 1 mg by mouth 2 times daily. Suspended Biotene Dry Mouth - (6 sources)Biotene Dry Mouth - as directed Mouth/Throat Activecalcium carbonate 1250 mg / cholecalciferol 200 unt oral tablet (20 sources)Vitamin DStart: 30-54-5607jvjq 1 tablet by mouth twice dailyCalcium Carb-Cholecalciferol (Oyster Shell Calcium w/D) 500-5 MG-MCG TABS Take 1 Tablet by mouth 2 times daily. 01/27/2023 ActiveStart: 37-23-6599boir 1 tablet by mouth in the morning, then take 1 tablet by mouth once at bedtimeCalcium Carb- Cholecalciferol (Oyster Shell Calcium w/D) 500-5 MG-MCG tablet Take 1 tablet by mouth in the morning and 1 tablet before bedtime. 01/27/2023 ActivecloNIDine hydrochloride 0.1 mg oral tablet (20 sources)Central alpha-2 Adrenergic AgonistStart: 11-18-2024 End: 52-30-9686arwc 1 tablet by mouth three times dailycloNIDine (CATAPRES) 0.1 MG tablet Take 1 Tablet by mouth 3 times a day. 90 Tablet 11/18/2024 Active Start: 17-80-1532rzgs 1 tablet by mouth three times dailycloNIDine (CATAPRES) 0.2 MG tablet Take 0.2 mg by mouth 3 times a day. 11/09/2024 SuspendedStart: 35-93-2104bfjo 1 tablet by mouth three times dailycloNIDine 0.2 mg Tab 0.2 mg = 1 tab(s), Oral, TID, Refills(s) 0 Start Date: 09/07/24 Status: OrderedRepeat number: 1Start: 09-24-2021 End: 34-68-3069cwto 1 tablet by mouth once dailyClonidine Hcl 0.1 mg Tablet Discontinued 0.1 MG PO Daily September 24, 2021 12:00am September 21, 2024 2:39pm cloNIDine HCl (CATAPRES ORAL) Take by mouth. Suspendedtake 1 tablet by mouth three times dailycloNIDine (Catapres) 0.1 MG tablet TAKE ONE TABLET BY MOUTH 3 TIMES DAILY CATAPRES ActivecloNIDine HCl (CATAPRES ORAL) Take by mouth. Active cloNIDine HCl (CATAPRES ORAL) Take by mouth. 0 ActiveDaily Feli oral tablet (2 sources)Start: 96-97-9661yrxj 1 tablet by mouth once dailyDaily Feli oral tablet 1 tab(s), Oral, Daily, Refill(s) 0 Start Date: 09/07/24 Status: Ordered Repeat number: 1Start: 43-33-7131tfpg 1 tablet by mouth once dailyDaily Feli oral tablet 1 tab(s), Refill(s) 0 Start Date: 09/07/24 Status: Ordered Repeat number: 11 ml denosumab 60 mg/ml prefilled syringe (20 sources)RANK Ligand InhibitorStart: 93-46-6792Dmwtvz 60 MG/ML solution prefilled syringe 07/07/2023 Activedocusate sodium 100 mg oral capsule (20 sources)Start: 29-46-1809uuxubhnj sodium 100 mg Cap 100 mg = 1 cap(s), Refills(s) 0 Start Date: 09/07/24 Status: Ordered Repeat number: 1doxycycline hyclate 100 mg oral tablet (2 sources)Tetracycline-class DrugStart: 11-18-2024 End: 06-88-4145subb 1 tablet by mouth twice dailydoxycycline (VIBRA-TABS) 100 MG tablet Take 1 Tablet by mouth 2 times daily for 15 doses. 15 Fhuvqp0511/18/2024 11/26/2024 Activeeucalyptol 0.92 mg/ml / menthol 0.42 mg/ml / methyl salicylate 0.6 mg/ml / thymol 0.64 mg/ml mouthwash (20 sources)Start: 42-19-5129Rqqkkhyxwxi (Biotene Dry Mouth) liquid TWICE A DAY SWISH 15ML FOR 30 SEC THEN SPIT 01/27/2023 Activefluocinonide 0.5 mg/ml topical solution (20 sources)CorticosteroidStart: 33-40-7065wbrjdkvrmmuh (Lidex) 0.05 % external solution 03/10/2023 Activehaloperidol 5 mg oral tablet (20 sources)Typical AntipsychoticStart: 05-25-4842cftf 3 tablets by mouth twice dailyhaloperidol (HALDOL) 5 MG tablet Take 15 mg by mouth 2 times a day. 11/09/2024 ActiveStart: 12-93-5759xbup 3 tablets by mouth twice dailyhaloperidol 5 mg Tab 15 mg = 3 tab(s), Oral, BID, # 12 tab(s), Refills(s) 0 Start Date: 09/30/24 Status: Ordered Quantity: 12.0 Unit: tab(s) Repeat number: 1Start: 61-49-0298zktl 2 tablets by mouth once daily in the eveninghaloperidol 5 mg Tab 10 mg = 2 tab(s), Oral, qPM, # 8 tab(s), Refills(s) 0 Start Date: 09/30/24 Status: Ordered Quantity: 8.0 Unit: tab(s) Repeat number: 1Start: 89-30-9543etryveigrhf 5 mg Tab 5 mg = 1 tab(s), Refills(s) 0 Start Date: 09/07/24 Status: Ordered Repeat number: 1Start: 47-71-6215Zkdweqgbcet 5 mg tablet Active 0 PO Daily September 24, 2021 12:00am 15mg orally daily; 0800 10mg orally evening 1600 15mg orally bedtime 2000 Complies with drug therapyStart: 32-23-9575ryiy 5 mg by mouth once dailyHaloperidol Active 5 MG PO Daily September 23, 2021 11:00pmtake 1 tablet by mouth once daily in the eveninghaloperidol (HALDOL) 10 MG tablet Take 10 mg by mouth every evening. ActivehydrOXYzine pamoate 25 mg oral capsule (3 sources)Antihistaminetake 1 capsule by mouth three times daily as needed hydrOXYzine pamoate (Vistaril) 25 MG capsule Take 25 mg by mouth 3 times daily as needed for Itching. ActivelevETIRAcetam 500 mg oral tablet (20 sources)Start: 23-21-8873illl 1 tablet by mouth twice dailylevETIRAcetam (KEPPRA) 500 MG tablet Take 500 mg by mouth 2 times daily. 01/27/2023 Active levothyroxine sodium 0.137 mg oral tablet (20 sources)l-ThyroxineStart: 57-42-2392bnrj 1 tablet by mouth once daily levothyroxine (SYNTHROID) 137 MCG tablet Take 137 mcg by mouth daily. 11/09/2024 ActiveStart: 48-43-6859bitt 1 tablet by mouth once dailylevothyroxine 137 mcg (0.137 mg) Tab 137 mcg = 1 tab(s), Oral, Daily, Refills(s) 0 Start Date: 09/07/24 Status: Ordered Repeat number: 1Start: 13-12-7822plfm 1 tablet by mouth once dailyLevothyroxine 137 mcg tablet Active 137 MCG PO Daily August 17, 2024 12:00am Complies with drug therapyStart: 68-75-4567fdnd 1 tablet by mouth before mealtimelevothyroxine (Synthroid, Levoxyl) 175 MCG tablet Take 175 mcg by mouth in the morning. Take beforemeals. 01/27/2023 ActiveStart: 92-48-1212javc 1 tablet by mouth once dailylevothyroxine (Synthroid, Levoxyl) 150 MCG tablet TAKE ONE TABLET BY MOUTH DAILY SYNTHROID 01/27/2023 ActiveStart: 09-24-2021 Levothyroxine 100 mcg tablet Active 150 MCG PO Daily September 24, 2021 12:00am Non-compliance of drug therapyStart: 73-88-3752sqwk 150 ug by mouth once daily Levothyroxine Active 150 MCG PO Daily September 23, 2021 11:00pmtake 1 tablet by mouth once daily in the morningLevothyroxine Sodium 100 MCG 1 tablet in the morning on an empty stomach Orally Once a day Activetake 1 tablet by mouth once daily in the morningLevothyroxine Sodium 50 MCG 1 tablet in the morning on an empty stomach Orally Once a day Activelidocaine 0.04 mg/mg medicated patch (5 sources)Antiarrhythmic, Amide Local AnestheticStart: 11-19-2024 End: 22-43-0702xautf 1 dose transdermal route every twenty-four hourslidocaine (LIDODERM) 4 % PT[facility] patch Place 1 Patch on the skin every 24 hours for 14 days. 14 Patch 11/19/2024 12/03/2024 ActiveStart: 11-14-2024 End: 99-90-9509Vhbtdnqgxdw, PRN, Starting on Thu11/14/24 at 0750, Until Thu11/14/24 at 1056, Intra-oploratadine 10 mg disintegrating oral tablet (20 sources)take 1 tablet by mouth once dailyloratadine (Claritin Reditabs) 10 MG disintegrating tablet Take 10 mg by mouth Daily ActiveLORazepam 1 mg oral tablet (2 sources)BenzodiazepineStart: 19-68-4986FRUfacubv 1 MG as directed before testing Orally once for 1 days Jan, Activelosartan potassium 100 mg oral tablet (20 sources)Angiotensin 2 Receptor BlockerStart: 01-27-2023 End: 86-13-5687ykgu 1 tablet by mouth at bedtimelosartan (Cozaar) 100 MG tablet Take 100 mg by mouth at bedtime 01/27/2023 ActiveStart: 02-16-7571jrpf 1 tablet by mouth at bedtimelosartan (Cozaar) 50 MG tablet Take 50 mg by mouth at bedtime 01/27/2023 Activemeloxicam 15 mg oral tablet (20 sources)Nonsteroidal Anti-inflammatory DrugStart: 01-27-2023 End: 41-67-5981ajqx 1 tablet by mouth once daily at bedtimemeloxicam (Mobic) 15 MG tablet TAKE ONE TABLET BY MOUTH DAILY AT BEDTIME MOBIC 01/27/2023 Active methocarbamol 750 mg oral tablet (2 sources)Muscle RelaxantStart: 11-18-2024 End: 54-59-6177cdmv 1 tablet by mouth every eight hours as neededmethocarbamol (ROBAXIN) 750 MG tablet Take 1 Tablet by mouth every 8 hours as needed for up to 7 days. 14 Tablet 11/18/2024 11/25/2024 ActiveMultiple Vitamin (Multivitamin) tablet (20 sources)Start: 64-93-6737nuuw 1 tablet by mouth in the morningMultiple Vitamin (Multivitamin) tablet Take 1 tablet by mouth in the morning. 01/27/2023 ActiveMultivitamin tablet (3 sources)Start: 18-66-3184aotu 1 tablet by mouth once dailyMultivitamin tablet Active 1 TAB PO Daily August 17, 2024 12:00am Complies with drug therapy nebivolol 5 mg oral tablet (16 sources)Start: 75-71-0978klla 1 tablet by mouth once dailynebivolol (BYSTOLIC) 5 MG TABS tablet Take 5 mg by mouth daily. 08/17/2024 Active OXcarbazepine 60 mg/ml oral suspension (20 sources)Anti-epileptic AgentStart: 11-19-2024 End: 76-24-6061oplh 10 mL by mouth once dailyOXcarbazepine (TRILEPTAL) 300 MG/5ML oral suspension Take 10 mL by mouth daily. 300 mL 11/19/2024 ActiveStart: 11-18-2024 End: 95-37-6590fsry 20 mL by mouth at bedtimeOXcarbazepine (TRILEPTAL) 300 MG/5ML oral suspension Take 20 mL by mouth at bedtime. 600 mL 11/18/2024 Active Start: 68-22-1085eviz 1 tablet by mouth twice dailyoxcarbazepine (TRILEPTAL) 600 MG tablet Take 600 mg by mouth 2 times daily. 11/09/2024 SuspendedStart: 39-28-6119aqqz 1 tablet by mouth twice dailyoxcarbazepine 600 mg Tab 600 mg = 1 tab(s), Oral, BID, Refills(s) 0 Start Date: 09/07/24 Status: Ordered Repeat number: 1Start: 71-40-3436pekpbectpzmkn 600 mg Tab 600 mg = 1 tab(s), Refills(s) 0 Start Date: 09/07/24 Status: Ordered Repeatnumber: 1OXcarbazepine (TRILEPTAL ORAL) Take by mouth. SuspendedOXcarbazepine (TRILEPTAL ORAL) Take by mouth. ActiveOXcarbazepine (TRILEPTAL ORAL) Take by mouth. 0 ActiveoxyCODONE hydrochloride 5 mg oral tablet (5 sources)Opioid AgonistStart: 11-18-2024 End: 70-71-6008tita 1 tablet by mouth every six hours as neededoxyCODONE 5 MG immediate release tablet Indications: Type I or II open fracture of right tibia and fibula, initial encounter Take 1 Tablet by mouth every 6 hours as needed for up to 10 doses. 10 Tablet 11/18/2024 11/25/2024 Activetake 1 capsule by mouth every six hours as needed for painoxyCODONE (OXYIR) 5 MG capsule Take 5 mg by mouth every 6 hours as needed for Pain. ActiveOyster Shell Calcium with Vitamin D 500 mg-200 intl units oral tablet (2 sources)Start: 08-44-9820tran 1 tablet by mouth twice dailyOyster Shell Calcium with Vitamin D 500 mg-200 intl units oral tablet 1 tab(s), Oral, BID, Refill(s) 0 Start Date: 09/07/24 Status: Ordered Repeat number: 1Start: 90-82-7471lsge 1 tablet by mouth onceOyster Shell Calcium with Vitamin D 500 mg- 200 intl units oral tablet 1 tab(s), Refill(s) 0 Start Date: 09/07/24 Status: Ordered Repeat number: 1PARoxetine hydrochloride 30 mg oral tablet (20 sources)Serotonin Reuptake InhibitorStart: 55-31-7640rbhh 2 tablets by mouth at bedtimePARoxetine (PAXIL) 30 MG tablet Take 2 Tablets by mouth at bedtime. 60 Tablet 11/18/2024 ActiveStart: 91-36-5687cmcfhjphev 40 mg Tab 40 mg = 1 tab(s), Refills(s) 0 Start Date: 09/07/24 Status: Ordered Repeat number: 1Start: 25-67-8897wbmdsrdnqx 40 mg Tab 60 mg = 1.5 tab(s), Oral, Bedtime, Refills(s) 0 Start Date: 09/07/24 Status: Ordered Repeat number: 1polyethylene glycol 3350 02743 mg powder for oral solution (2 sources)Osmotic LaxativeStart: 11-19-2024 End: 73-43-4263nhcyijtgivcj glycol (MIRALAX) packet Dissolve 1 Packet (17 g total) in 8 ounces of liquid and drinkdaily. 7 Packet 11/19/2024 11/26/2024 ActivePotassimin (7 sources)Potassimin Activepotassium chloride 10 meq extended release oral capsule (20 sources)Start: 09-24-2021 End: 20-99-9779army 1 capsule by mouth three times dailypotassium chloride ER (Micro-K) 10 MEQ ER capsule TAKE ONE CAPSULE BY MOUTH 3 TIMES DAILY 01/27/2023 Activetake 1 tablet by mouth once dailypotassium chloride SA (K-DUR) 10 MEQ controlled release tablet Take 10 mEq by mouth daily. SuspendedpredniSONE 50 mg oral tablet (1 source)Start: 46-93-0057hqtwcpETXR 50 mg Tab 50 mg = 1 tab(s), Refills(s) 0 Start Date: 09/07/24 Status: Ordered Repeat number: 1Saliva Substitute Combo No.9 (Biotene Dry Mouth Oral Rinse) mouthwash (8 sources)Start: 01-53-4347Kzjhke Substitute Combo No.9 (Biotene Dry Mouth Oral Rinse) mouthwash Active 5 ML PO As Directed asneeded for Dry Mouth September 24, 2021 12:00am Complies with drug therapyStart: 82-54-9145Prodeo Substitute Combo No.9 (Biotene Dry Mouth Oral Rinse) mouthwash Active 5 ML PO As Directed September 23, 2021 11:00pmStart: 32-87-6478Iyfdry Substitute Combo No.9 (Biotene Dry Mouth Oral Rinse) mouthwash Active 5 ML PO As Directed September 24, 2021 12:00am sennosides, custodial 8.6 mg oral tablet (10 sources)Start: 70-34-6199wchr 1 tablet by mouth once daily at bedtimeSenna- Time 8.6 mg oral tablet 8.6 mg = 1 tab(s), Oral, Once a day (at bedtime), Refills(s) 0 Start Date: 09/07/24 Status: Ordered Repeat number: 1Start: 30-51-3095xyja 2 tablets by mouth once daily at bedtimeSennosides (Senna Lax) 8.6 mg Tablet Active 17.2 MG PO Daily at bedtime 0 August 19, 2024 12:00am Co mplies with drug therapySennosides (Senna) 8.6 MG CAPS Take by mouth. Active tamsulosin hydrochloride 0.4 mg oral capsule (7 sources)alpha-Adrenergic BlockerStart: 07-90-7826njih 1 capsule by mouth once dailyFlomax 0.4 mg Cap 0.4 mg = 1 cap(s), Oral, Daily, # 30 cap(s), Refills(s) 0 Start Date: 09/30/24 Status: Ordered Quantity: 30.0 Unit: cap(s) Repeat number: 1 triamcinolone acetonide 1 mg/ml topical cream (20 sources)CorticosteroidStart: 48-46-0661Kjvyfrsgewbez Acetonide 0.1 % cream Active 1 APPLIC TOPICAL Twice daily August 17, 2024 12:00am Complies with drug therapytriamcinolone (Kenalog) 0.1 % cream Apply topically 2 (two) times a day Active Completed/Discontinued Medications MedicationDrug Class(es)DatesSig (Normalized)Sig (Original)acetaminophen 325 mg / HYDROcodone bitartrate 5 mg oral tablet (8 sources)Opioid AgonistStart: 09-24-2021 End: 11-37-0659vhji 1 tablet by mouth every four to six hours as needed for pain Hydrocodone-Acetaminophen 5-325 mg Tablet Discontinued 1 TAB PO EVERY 4-6 HOURS as needed for Pain September 24, 2021 12:00am August 17, 2024 2:57amalendronic acid 70 mg oral tablet (15 sources)BisphosphonateStart: 09-24-2021 End: 54-13-5388nsvi 1 tablet by mouth once dailyAlendronate 70 mg tablet Discontinued 70 MG PO Daily September 24, 2021 12:00am August 17, 2024 2:57am Alendronate / Cholecalciferol (7 sources)Bisphosphonate, Vitamin DALENDRONATE-CHOLECALCIFEROL ORAL Take by mouth. SuspendedALENDRONATE-CHOLECALCIFEROL ORAL Take by mouth. Active ALENDRONATE-CHOLECALCIFEROL ORAL Take by mouth. 0 Activecalcium chloride 0.0014 meq/ml / potassium chloride 0.004 meq/ml / sodium chloride 0.103 meq/ml / sodium lactate 0.028 meq/ml injectable solution (1 source)Start: 11-14-2024 End: 07-86-2939Rwoxrexrvqf, PRN CONTINUOUS, Starting on Thu11/14/24 at 0741, Until Thu11/14/24 at 1056ceFAZolin Sodium (ANCEF) 2,000 mg in sterile water for injection 10 mL IV push (1 source)Start: 11-14-2024 End: 98-41-5757Iqenksogaun, PRN CONTINUOUS, Starting on Thu11/14/24 at 0810, Until Thu11/14/24 at 1056Dentifrices (BIOTENE DRY MOUTH DENTAL) (7 sources)Dentifrices (BIOTENE DRY MOUTH DENTAL) by Dental route. Suspended Dentifrices (BIOTENE DRY MOUTH DENTAL) by Dental route. ActiveDentifrices (BIOTENE DRY MOUTH DENTAL) by Dental route. 0 Active1 ml dexamethasone phosphate 10 mg/ml injection (1 source)CorticosteroidStart: 11-14-2024 End: 29-62-7447Flvqovrsymu, PRN, Starting on Thu11/14/24 at 0856, Until Thu11/14/24 at 1056, Intra-op2 ml fentaNYL 0.05 mg/ml injection (1 source)Opioid AgonistStart: 11-14-2024 End: 00-69-0608Cdqsqhlrnfn, PRN, Starting on Thu11/14/24 at 0750, Until Thu11/14/24 at 1056, Intra-op1 ml HYDROmorphone hydrochloride 1 mg/ml cartridge (1 source)Opioid AgonistStart: 11-14-2024 End: 60-48-3011Hplmjggkuai, PRN, Starting on Thu11/14/24 at 1006, Until Thu11/14/24 at 1056, Intra-oplinaclotide 0.145 mg oral capsule (3 sources)Guanylate Cyclase-C AgonistStart: 14-18-8033nicx 1 capsule by mouth once dailyLinzess 145 MCG CAPS capsule Take 145 mcg by mouth daily. 11/07/2024 SuspendedMultiple Vitamin (DAILY FELI ORAL) (6 sources)Start: 71-62-1163vaex 1 tablet by mouth once dailyMultiple Vitamin (DAILY FELI ORAL) Take 1 Tablet by mouth daily. 09/07/2024 Suspended2 ml ondansetron 2 mg/ml injection (1 source)Serotonin-3 Receptor AntagonistStart: 11-14-2024 End: 28-42-1629Roemciqdhkh, PRN, Starting on Thu11/14/24 at 1000, Until Thu11/14/24 at 1056, Intra-op1 ml phenylephrine hydrochloride 10 mg/ml injection (1 source)alpha-1 Adrenergic AgonistStart: 11-14-2024 End: 82-18-2327Wtonnilnluk, PRN, Starting on Thu11/14/24 at 0816, Until Thu11/14/24 at 1056, Intra-op100 ml propofol 10 mg/ml injection (1 source)General AnestheticStart: 11-14-2024 End: 94-81-8401Kphfnffsphz, PRN, Starting on Thu11/14/24 at 0750, Until Thu11/14/24 at 1056rocuronium bromide 10 mg/ml injectable solution (1 source)Nondepolarizing Neuromuscular BlockerStart: 11-14-2024 End: 34-66-0482Hxmrncqerus, PRN, Starting on Thu11/14/24 at 0750, Until Thu11/14/24 at 1056, Intra-op2 ml sugammadex 100 mg/ml injection (1 source)Start: 11-14-2024 End: 87-04-2849Bdxtoilpvza, PRN, Starting on Thu11/14/24 at 1027, Until Thu11/14/24 at 1056, Intra-optraMADol hydrochloride 50 mg oral tablet (20 sources)Opioid AgonistStart: 09-24-2021 End: 68-92-2021yghd 1 tablet by mouth every four hours as needed for pain Tramadol 50 mg tablet Discontinued 50 MG PO Q4H as needed for pain 42 7 September 24, 2021 12:00am August 17, 2024 2:57am Problems Active Problems Problem ClassificationProblemDateDocumented DateEpisodic/ChronicAcute and unspecified renal failure (10 sources)Acute renal failure syndrome; Translations: [Acute kidney failure, unspecified]Onset: 637604-96-3829DgmirxjqArpxqof disorders (3 sources)Obsessive-compulsive -34-2074GkdwkppNpixweuja-ctsknrr, conduct, and disruptive behavior disorders (20 sources)Disruptive behavior disorder; 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, unspecified]92-64-0325DuvkswdZxsdxdlvi-deficit, conduct, and disruptive behavior disorders (1 source)Attention deficit hyperactivity querffom17-64-2058SiskrqyArxkera kidney disease (11 sources)Chronic kidney disease, unspecified; Translations: [Chronic kidney disease]Onset: 351302-78-0870JpnojbfAxjvzyoi, dementia, and amnestic and other cognitive disorders (8 sources)Frontal lobe syndrome; 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]Onset: 654268-00-6450UtepabvFerhbaxqcdmez disorders (20 sources)Unspecified intellectual disabilities; Translations: [Intellectual disability]Onset: 850558-83-1393AqrnehxYwpalaujs usually diagnosed in infancy, childhood, or adolescence (8 sources)Autistic disorder; Translations: [Autism spectrum disorder]Onset: 508887-21-7666GzprwvwZxayefl on above:MRDDEpilepsy; convulsions (20 sources)Epilepsy, unspecified, not intractable, without status epilepticus; Translations: [Seizure disorder]Onset: 652537-68-4918WbzghzgVyaqatvzc hypertension (9 sources)Essential (primary) hypertension; Translations: [Hypertensive disorder]Onset: 128717-07-5967ZizvohbFwhee and electrolyte disorders (13 sources)Metabolic acidosis; Translations: [Metabolic acidosis]Onset: 484511-83-7914QpassimtIdrwcezw of lower limb (20 sources)Displaced fracture of lateral malleolus of right fibula, subsequent encounter for closed fracture with routine healing; Translations: [Fracture of ankle]Onset: 09-25-2021 Resolved: 27-52-3137ScoavrrnRbddeedz of lower limb (3 sources)Other fracture of lower end of left tibia, subsequent encounter for closed fracture with routine healingOnset: 10-16-2021 Resolved: 54-26-5852ZcoqhjabKfrcyfhj of upper limb (4 sources)Closed fracture of clavicle; Translations: [Fracture of unspecified part of right clavicle, initialencounter for closed fracture]Onset: 12-06-2024 25-37-9913CqqtmkncLbjphvgfdejfu symptoms and ill-defined conditions (3 sources)Retention of urine; Translations: [Retention of urine, unspecified] Onset: 11-94-8495PkhdpqfkLdtvlqhi; including migraine (1 source)Headache; including migraine; Translations: [HEADACHE UNSPECIFIED] Onset: 69-30-4031Zmxuvupyygm of prostate (2 sources)Benign prostatic hypertrophy with outflow obstruction; Translations: [Benign prostatic hyperplasia with lower urinary tract symptoms]Onset: 00-98-7385NwjcryzVniiago control disorders, NEC (2 sources)Impulse control disorder; Translations: [Impulse disorder, unspecified]Onset: 582121-08-8289UjcxxmjXwiai disorders and dislocations; trauma-related (9 sources)Traumatic dislocation of joint of foot; Translations: [Dislocation of tarsometatarsal joint of leftfoot, initial encounter]52-52-5785QtnifyffYnhi disorders (3 sources)Depressive -68-4661ZrwfchwZethmkn (1 source)Pain in toe; Translations: [Tinea unguium]27-67-4032Lpqpgjsf Osteoporosis (4 sources)Age-related osteoporosis without current pathological fracture; Translations: [AGE-REL OSTEOPOR W/OCURR PATH FX]Onset: 29-22-6682EobdvbtTuwvg congenital anomalies (20 sources)Tuberous sclerosis syndrome; Translations: [Tuberous sclerosis] 60-06-6612GaisygdBetqk congenital anomalies (3 sources)Tuberous sclerosis; Translations: [Tuberous sclerosis]Onset: 02-02-2008 Resolved: 73-87-7079SobjcwfVrrxy connective tissue disease (4 sources)Pain in right leg; Translations: [PAIN IN RIGHT LEG]Onset: 04-11-2022 EpisodicOther connective tissue disease (20 sources)Myofascial pain syndrome; Translations: [Myalgia, other site] 62-07-1240ObgxajorHvkpo connective tissue disease (5 sources)Recurrent falls ; Translations: [Repeated falls]56-36-9491Unjxumqi Other connective tissue disease (4 sources)Pain of toe of right foot; Translations: [Pain in right toe(s)] 86-32-6496BtlrjnnkVxcyg diseases of kidney and ureters (1 source)Other specified disorders of kidney and ureter; Translations: [OTHER SPEC DISORDERS KIDNEY URETER]Onset: 87-79-9101PxdhuntMtiem diseases of veins and lymphatics (2 sources)Vascular insufficiency; Translations: [Venous insufficiency (chronic) (peripheral)]13-22-7064CaautbcjYrevx nervous system disorders (1 source)Unspecified abnormalities of gait and mobility; Translations: [UNS ABNORMALITIES GAIT AND MOBILITY]Onset: 66-30-4109TfnawpyrXkdvn non-traumatic joint disorders (1 source)Stiffness of unspecified joint, not elsewhere classified; Translations: [STIFFNESS UNSPECIFIED JOINT NEC]Onset: 06-30-6822RdjzbbhlDrqxw skin disorders (4 sources)Ingrowing nail; Translations: [Ingrowing nail]56-57-7334Nvyxbjkp Residual codes; unclassified (1 source)Other specified postprocedural statesEpisodicSkin and subcutaneous tissue infections (4 sources)Abscess of toe of right foot; Translations: [Cutaneous abscess of right foot]47-78-0757FozteiogOqxbmrtaano; intervertebral disc disorders; other back problems (20 sources)Spasm of back muscles; Translations: [Muscle spasm of back] 08-01-7958FqlitkckElreflisxdi injury; contusion (2 sources)Contusion of left foot; Translations: [Contusion of left foot, initial encounter]03-09-7643UagvmsafFsrmonz disorders (15 sources)Hypothyroidism, unspecified; Translations: [Hypothyroidism]Onset: 51-81-5685RwuxdcmYgprujkkdsku (3 sources)CHRN KIDNEY DISEASE STG 3 UNSP; Translations: [CHRN KIDNEY DISEASE STG 3 UNSP]Onset: 12-07-6564Adfgqnccygow (1 source)CONTACT W/AND (SUSP) EXPOS COVID-19; Translations: [CONTACT W/AND (SUSP) EXPOS COVID-19]Onset: 03-97-9086Swubwkuamowe (4 sources)Please call to arrange a follow-up visit at [facility].Unclassified (4 sources)Follow-up with Neurology as previously scheduled.Unclassified (2 sources)Follow-up with Urology for acute urinary retention, call office to reschedule if needed.Unclassified (1 source)Acidosis, unspecified; Translations: [Acidosis, unspecified]Onset: 26-83-2276Atsoicy tract infections (6 sources)Cystitis; Translations: [Cystitis, unspecified without hematuria] 41-05-7676Uttntoam Past or Other Problems Problem ClassificationProblemDateDocumented DateEpisodic/ChronicDisorders of teeth and jaw (14 sources)Dental caries; Translations: [Dental caries, unspecified]Onset: 676519-24-6943DfqlexvmA Codes: Fall (1 source)Fall on same level, unspecified, initial encounter; Translations: [FALL SAME LEVEL UNSPECIFIED INITIAL]Onset: 47-30-7855TpingaawLzqtmxdi; convulsions (3 sources)Seizure disorderOnset: 749616-84-1657TkytrceaRcznm aftercare (1 source)Other watermaster (current) drug therapy; Translations: [OTH TANK CARPENTER CURRENT DRUG THERAPY]Onset: 36-98-3578FqlgzjebGfshw liver diseases (20 sources)Alkaline phosphatase raised; Translations: [Abnormal levels of other serum enzymes]Onset: 058113-06-1862BwuwpyjvHonax lower respiratory disease (1 source)Other disorders of lungOnset: 08-14-2021 Resolved: 59-63-8487PxkdyuqcZitxz lower respiratory disease (1 source)Solitary pulmonary nodule; Translations: [SOLITARY PULMONARY NODULE] Onset: 85-63-5284XxjnryqdVbhdq non-traumatic joint disorders (3 sources)Pain in right ankle and joints of right foot; Translations: [PAIN IN RIGHT ANKLE]Onset: 63-41-4373DrhmbrfsNagnfgroanmc (1 source)CHRN KIDNEY DISEASE STG 3 UNSP; Translations: [CHRN KIDNEY DISEASE STG 3 UNSP]Onset: 05-27-2022 Results Test NameValueInterpretationReference RangeFacilityXR TIBIA RIGHT 2 VIEWSon [id number] TIBIA RIGHT 2 VIEWSEXAMINATION: XR TIBIA RIGHT 2 VIEWSPRO/RT 12/28/2024 10:11 AM CLINICAL HISTORY: f/u ASSOCIATED DIAGNOSIS: Displ spiral fx shaft of r tibia, init for opn fx type I/2 ORDERING PROVIDER: SARAH BROWN TECHNOLOGISTS NOTE: COMPARISON: December 06, 2024 FINDINGS: [...] comminuted tibial fracture. There is a IMPRESSION: No change in the alignment of the previously described fractures involving the right tibia and fibula. Hardware appears intact. Right tibia and fibula MACRO: NoneNoiMove SystemPatient Instructionson 73-64-7916Rdybnefvfunof Authentication Interface Message Text Healing on xrays of the right tibia Ok to discontinue boot and WBAT in tennis shoe Continue PT Follow up in 6 weeks with repeat imagesNoiMove SystemProgress Noteson 52-16-7607Dmvffhzeeparz Authentication Interface Message TextSt. [facility] 12/28/24 Orthopaedic Surgery Clinic Note HPI: Alethea Lei ([id number]) is a 54 year old male who [...] fx and distal fibula fx Assessment/Plan: 1. (U90.443J) Displ spiral fx shaft of r tibia, [...] Follow-up: 6 weeks, Imaging: right tibia Sarah Brown, PA-C [phone] [1] Current Outpatient Medications on File Prior [...] DENTAL RESTORATIONS; Surgeon: Mina Solorzano DDS; Location: [facility] [place]; Service: Dental EXCISION, LESION, ORAL Right 01/25/2021 Procedure: EXCISION, LESION, ORAL; Surgeon: Mina Solorzano DDS; Location: [facility] Surgery [place]; Service: Dental REDUCTION, OPEN, TIBIA Right 11/14/2024 Procedure: REDUCTION, OPEN, TIBIA; Surgeon: Jose Truong MD; Location: [facility]; Service: Orthopaedics REDUCTION, OPEN, TIBIA, INTRAMEDULLARY MARKOS Right 11/14/2024 Procedure: REDUCTION, OPEN, TIBIA, INTRAMEDULLARY MARKOS; Surgeon: Jose Truong MD; Location: [facility]; Service: OrthopaedicsNormWexner Medical Centere MetroHealth SystemBMPon 24-01-9663Bdiud gap [Moles/Vol]14 mmol/LNormal08-08[facility] - AndersonComment on above:Performed By: #### [id number] #### Anthony [facility] [address] [place] [address] 43512YCG/Creat Ratio24 No BzhtfBmke67-28PcdijyOur Lady Of Mercy Hospital - Anderson Comment on above:Performed By: #### [id number] #### Cruz [facility] [address], [place] [address]Slquuga [Mass/Vol]8.7 mg/dLLow8.9-11.1FThe University of Toledo Medical CenterComment on above:Performed By: #### [id number] #### Cruz [facility] [address], [place] [address]Qswrzngo [Moles/Vol]96 mmol/KYap043-237YlpcylOur Lady Of Mercy Hospital - AndersonComment on above:Performed By: #### [id number] #### Cruz [facility] [address], [place] [address]JU8 [Moles/Vol]28 mmol/VUeuivu02-60CwmgdvOur Lady Of Mercy Hospital - Anderson Comment on above:Performed By: #### [id number] #### Cruz [facility] [address], [place] [address]Brctchlkrh [Mass/Vol]1.5 mg/dLHigh0.5-1.3FThe University of Toledo Medical CenterComment on above:Performed By: #### [id number] #### [facility] [address], [place] [address]Zxdlvbu [Mass/Vol]126 mg/gAAajrlx22-804IlgholOur Lady Of Mercy Hospital - AndersonComment on above:Performed By: #### [id number] #### Cruz [facility] [address], [place] [address]Btpyelfhe [Moles/Vol]4.1 mmol/LNormal3.5-5.3FThe University of Toledo Medical CenterComment on above:Performed By: #### [id number] #### Cruz [facility] [address], [place] [address]Lrmsgg [Moles/Vol]134 mmol/OHdt474-965IhghkyOur Lady Of Mercy Hospital - AndersonComment on above:Performed By: #### [id number] #### Cruz [facility] [address], [place] [address]Majx nitrogen [Mass/Vol]36 mg/dLHigh5-21[facility] - AndersonComment on above:Performed By: #### [id number] #### [facility] [address] [place] [address] 277[address]AKB w/ Auto Diffon 58-26-6774Inaoblxi Absolute0.1 E9/LNormal 0.0-0.2FThe University of Toledo Medical CenterComment on above:Performed By: #### [id number] #### [facility] [address] [place] [address] 68[address]Gxlxegrup/100 WBC (Bld)0.4 %Normal0.0-2.0[facility] - AndersonComment on above:Performed By: #### [id number] #### [facility] [address] [place] [address] 71046Qma Absolute0.0 E9/LNormal0.0-0.5FThe [facility] of [facility] Center Comment on above:Performed By: #### [id number] #### [facility] [address] [place] [address] 86847Mfdtvhhhrsf/100 WBC (Bld)0.1 %Normal0.0-8.0[facility] - AndersonComment on above:Performed By: #### [id number] #### [facility] [address] [place] [address] 538[address]Wfkslmudcut distribution width (RBC) [Ratio]15.0 %High10.9-14.2 [facility] - AndersonComment on above:Performed By: #### [id number] #### [facility] [address] [place] [address] 98157Ygxwtlslep (Bld) [Volume fraction]33.8 %Low37.7-49.0[facility] - AndersonComment on above:Performed By: #### [id number] #### [facility] [address] [place] [address] 71170Atcuupycpl (Bld) [Mass/Vol]11.4 g/dLLow13.5-17.5FThe University of Toledo Medical CenterComment on above:Performed By: #### [id number] #### [facility] [address] [place] [address] 276[address]Zzjve Absolute1.1 E9/LNormal1.0-4.0[facility] Comment on above:Performed By: #### [id number] #### [facility] [address] [place] [address] 74187Vuejgnxoaad/100 WBC (Bld)8.8 %Low14.0-50.0[facility] - AndersonComment on above:Performed By: #### [id number] #### [facility] [address] [place] [address] 10588ZPX (RBC) [Entitic mass]29.8 yrZnlooc96.0-34.0[facility] - AndersonComment on above:Performed By: #### [id number] #### [facility] [address] [place] [address] 49564NTCC (RBC) [Mass/Vol]33.8 g/mHLetjai30.4-36.0[facility] - AndersonComment on above:Performed By: #### [id number] #### [facility] [address] [place] [address] 59429ISI (RBC) [Entitic vol]88.0 lKIrfcfg25.0-100.0[facility] - AndersonComment on above:Performed By: #### [id number] #### [facility] [address] [place] [address] 37097Olfr Absolute0.9 E9/LNormal0.2-1.0[facility] Comment on above:Performed By: #### [id number] #### [facility] [address] [place] [address] 43[address]Smjwmrajh/100 WBC (Bld)7.2 %Normal4.0-14.0[facility] - AndersonComment on above:Performed By: #### [id number] #### [facility] [address] [place] [address] 54571Vrplfd Iipllwnp64.8 E9/LHigh2.0-7.5FThe [facility] of [facility] Comment on above:Performed By: #### [id number] #### [facility] [address], [place] [address]Nhmyrd Auto83.5 %High36.0-75.0[facility] Comment on above:Performed By: #### [id number] #### [facility] [address], [place] [address]Bqfyrivy354.0 E9/JRttlfi885.0-500.0[facility] Comment on above:Performed By: #### [id number] #### [facility] [address], [place] [address]Ibgmjcdq mean volume (Bld) [Entitic vol]8.1 fLNormal6.4-10.8 [facility] - AndersonComment on above:Performed By: #### [id number] #### [facility] [address] [place] [address] 80959JIC8.8 E12/LLow4.3-5.9[facility] - AndersonComment on above:Performed By: #### [id number] #### [facility] [address] [place] [address] 65284ZPG73.9 E9/LHigh4.0-11.0[facility] - AndersonComment on above:Performed By: #### [id number] #### [facility] [address] [place] [address] 92851cYEZfk 70-68-3758rFZN64 mL/min/1.73 m2Low>=59[facility] - AndersonComment on above:Performed By: #### [id number] #### [facility] [address], [place] [address]JG CLAVICLE RIGHT 2 VIEWSon [id number] CLAVICLE RIGHT 2 VIEWS EXAMINATION: XR CLAVICLE RIGHT 2 VIEWSPRO/RT 12/06/2024 11:43 AM CLINICAL HISTORY: fx ASSOCIATED DIAGNOSIS: Closed displaced fracture of right clavicle, unspecified part of clavicle, initial encounter ORDERING PROVIDER: DIVINA BARNHART TECHNOLOGISTS NOTE: COMPARISON: XR CLAVICLE RIGHT 2 VIEWS 11/13/2024 9:25 PM IMPRESSION: Redemonstration of previously noted distal right clavicle fracture. Alignment is more nearly anatomic. No bony bridging. Right clavicle MACRO: MetaFarms SystemXR TIBIA RIGHT 2 VIEWSon [id number] TIBIA RIGHT 2 VIEWSEXAMINATION: XR TIBIA RIGHT 2 VIEWSPRO/RT 12/06/2024 11:44 AM CLINICAL HISTORY: po ASSOCIATED DIAGNOSIS: Displ spiral fx shaft of r tibia, init for opn fx type I/2 ORDERING PROVIDER: SARAH BROWN TECHNOLOGISTS NOTE: COMPARISON: XR TIBIA RIGHT 2 VIEWS 11/13/2024 1:59 PM FINDINGS: There is orthopedic hardware -- intramedullary markos with screw fixation -- providing internal fixation [...] surgical state.] Right tibia and fibula MACRO: ei TechnologiesNoiMove SystemProgress Noteson [id number] Authentication Interface Message TextCC: R distal clavicle fracture DOI: 11/13/24 Occupation: none; resides at long-term care facility HPI: Alethea Lei is a RHD 54 year old male with MRDD here for R distal clavicle fracture sustained at his facility when he fell from standing height 11/13/24. Site: R distal clavicle fracture Open: No Mechanism: fall from standing height at facility Work injury: No Associated injuries at fracture site: No Prior evaluation/treatment: admitted to hospital; placed in sling and made NWB. He has not been wearing the sling as he has not seemed to need it. Isolated injury: No - R open tibia s/p IMN with Dr. Truong Chart review: 11/14/24 - R tibia/fibula IMN with Dr. Truong Exam: RUE Skin intact. Obvious deformity without significant skin tenting. Skin with good cap refill and is quite mobile Minimal swelling Minimal ttp over fracture site Shoulder ROM FF 160 / ER 30 / IR L4 SILT r/mu/ax Firing AIN/PIN/u/ax 2+ radial Imaging: On my independent review today (12/06/2024), 12/06/2024 XR R clavicle Mildly displaced distal clavicle fracture with approximately 50% superior displacement. Fracture is extraarticular and short oblique in nature. Stable alignment to prior radiographic imaging. Assessment AND Plan Closed displaced fracture of right clavicle, unspecified part of clavicle, initial encounter -- extensive discussion regarding fracture with patient and accompanying contracting support specialist. We discussed non operative treatment verses operative management. Given the overall alignment of his distal clavicle fracture and his comfort and functional level, I would recommend nonoperative treatment of the distal clavicle fracture, which we will begin today. They understand and are in agreement -- sling provided today for comfort only; okay to come out of sling to work on ROM -- NWB RUE for additional 2 weeks. On 12/20, may begin strengthening and advance to WBAT -- external PT order provided to indicate the above -- RTC 3 wk for alignment check and function check XR at subsequent visit: Yes, XR R clavicle (ordered) - may be obtained 1-3d prior to visit Fracture care global period ends 03/08/24. I supervised the resident/fellow in their evaluation and discussed the treatment plan. I personally saw the patient and elicited the history and physical exam. I personally reviewed the imaging and provided independent interpretation. I directly edited the note above to reflect my history-taking, exam, discussion, and medical decision-making. -- Dev Hein MD Hand AND Upper Extremity Surgery Dept of Orthopaedic Surgery Office [phone] Pager [phone] Clinic intake form: Not completed Prior history reviewed as below: PMH: Medical History[1] PSH: Surgical History[2] Meds: Current Medications[3] All: Allergies[4] SH: Social History[5] [1] Past Medical History: Diagnosis Date Anemia OSH H + P 01/08/2021 CKD (chronic kidney disease), stage I OSH H + P 01/08/2021 Dental caries Moderate intellectual disability OSH H + P 01/08/2021 Tuberous sclerosis (HCC) OSH H + P 01/08/2021 [2] Past Surgical History: Procedure Laterality Date DENTAL RESTORATIONS Bilateral 01/25/2021 Procedure: DENTAL RESTORATIONS; Surgeon: Mina Solorzano DDS; Location: [facility] Surgery [place]; Service: Dental EXCISION, LESION, ORAL Right 01/25/2021 Procedure: EXCISION, LESION, ORAL; Surgeon: Mina Solorzano DDS; Location: [facility] Surgery [place]; Service: Dental REDUCTION, OPEN, TIBIA Right 11/14/2024 Procedure: REDUCTION, OPEN, TIBIA; Surgeon: Jose Truong MD; Location: [facility]; Service: Orthopaedics REDUCTION, OPEN, TIBIA, INTRAMEDULLARY MARKOS Right 11/14/2024 Procedure: REDUCTION, OPEN, TIBIA, INTRAMEDULLARY MARKOS; Surgeon: Jose Truong MD; Location: [facility]; Service: Orthopaedics [3] Current Outpatient Medications: oxyCODONE (OXYIR) 5 MG capsule, Take 5 mg by mouth every 6 hours as needed for Pain., Disp: , Rfl: hydrOXYzine pamoate (Vistaril) 25 MG capsule, Take 25 mg by mouth 3 times daily as needed for Itching., Disp: , Rfl: Sennosides (Senna) 8.6 MG CAPS, Take by mouth., Disp: , Rfl: tamsulosin (FLOMAX) 0.4 MG capsule, Take 0.4 mg by mouth daily., Disp: , Rfl: aspirin EC 81 MG tablet, Take 1 Tablet by mouth 2 times a day., Disp: 84 Tablet, Rfl: 0 benztropine (COGENTIN) 1 MG tablet, Take 1 Tablet by mouth 3 times daily., Disp: 90 Tablet, Rfl: 0 acetaminophen (TYLENOL) 500 MG tablet, Take 2 Tablets by mouth every 8 hours as needed., Disp: 90 Tablet, Rfl: 0 cloNIDine (CATAPRES) 0.1 MG t (more content not included)...[facility] HospitalAsetek SystemTranscription NETpeasation Interface Message TextVitals not obtained per provider's instructions.[facility] HospitalAsetek SystemProgress Notes on [id number] Authentication Interface Message TextPatient was identified by name and date of . Patient was dispensed and fitted with a. ~ Air cast walking boot - Large Patient was instructed on the application, adjustment, removal and care for Air cast walking boot.[facility] [employer] SystemTranscription NETpeasation Interface Message TextPatient was identified by name and date of . Randy HiltonAult[facility] Alliance [facility] SystemTranscription NETpeasation Interface [facility]/30/24 Orthopaedic Surgery Clinic Note HPI: Alethea Lei ([id number]) is a 54 year old male who presents for a 2 visit s/p NEGRA R ankle, IMN R distal tibial shaft fx. Pain is controlled. Pt presents from [facility] today with caregiver from the facility he normally resides at for his intellectual disability. Pt intermittently conversational, difficult to elicit history and follow exam prompts due to baseline cognitive function. ROS: All other pertinent ROS negative. Medications: Medications Ordered Prior to Encounter[1] Allergies: Allergies[2] Past Medical History: Medical History[3] Past Surgical History: Surgical History[4] Physical Exam: Musculoskeletal: RLE Deformity: none Swelling: moderate proximal tibia, at level of where the top of splint terminates. Ecchymosis and edema at proximal/lateral aspect of tibia Wounds: closed, sutures intact Perfusion: warm, well perfused, distal pulses palpable Tenderness: vincenzo-incisional Range of Motion: passively ranging ankle 0-20, can extend knee to 0 degrees and sitting with 90 degrees of flexion in wheelchair DF/PF/EHL: 5/5 pf - not following exam to test df/ehl function - pt stating that he cannot perform Sensation: Intact to light touch Imaging: None, obtain at next follow up visit Assessment/Plan: (K02.931M) Displ spiral fx shaft of r tibia, init for opn fx type I/2 (primary encounter diagnosis) The natural history and treatment options (surgical and non-surgical) were discussed including risks, benefits, alternatives and prognosis and all questions were answered. The following plan was agreed upon: Sutures removed. Ok to discontinue use of [place] Splint. Ok to WBAT in air cast boot. At this point boot will help prevent equinus contracture if he has peroneal nerve injury, will closely examine at follow up. Follow-up: 4 weeks, Imaging: right tibia Sarah Brown [phone] [1] Current Outpatient Medications on File Prior to Visit Medication Sig Dispense Refill aspirin EC 81 MG tablet Take 1 Tablet by mouth 2 times a day. 84 Tablet 0 benztropine (COGENTIN) 1 MG tablet Take 1 Tablet by mouth 3 times daily. 90 Tablet 0 acetaminophen (TYLENOL) 500 MG tablet Take 2 Tablets by mouth every 8 hours as needed. 90 Tablet 0 lidocaine (LIDODERM) 4 % PTCH patch Place 1 Patch on the skin every 24 hours for 14 days. 14 Patch 0 cloNIDine (CATAPRES) 0.1 MG tablet Take [...] DENTAL RESTORATIONS; Surgeon: Mina Solorzano DDS; Location: [facility] Surgery [place]; Service: Dental EXCISION, LESION, ORAL Right 01/25/2021 Procedure: EXCISION, LESION, ORAL; Surgeon: Mina Solorzano DDS; Location: [facility] Surgery [place]; Service: Dental REDUCTION, OPEN, TIBIA Right 11/14/2024 Procedure: REDUCTION, OPEN, TIBIA; Surgeon: Jose Truong MD; Location: PERIOPERATIVE SERVICES; Service: Orthopaedics REDUCTION, OPEN, TIBIA, INTRAMEDULLARY MARKOS Right 11/14/2024 Procedure: REDUCTION, OPEN, TIBIA, INTRAMEDULLARY MARKOS; Surgeon: Jose Truong MD; Location: PERIOPERATIVE SERVICES; Service: OrthopaedicsNormOhioHealth O[facility] SystemTelephone Encounteron [phone] Authentication Interface Message TextCalled nursing facility .. Nurse that supports was gone please call in am and she will direct assist due to understanding patients needs. Thank You ,.Normal The [facility] HospitalAsetek SystemConsultson [phone] Authentication Interface Message TextDietitian vs DietaryTech: [employer] Operator Inpatient Nutrition Screening Reason for visit: LOS 5 or more days Assessment Admitting Diagnosis: Open Tib fib fracture from fall High risk nutrition diagnosis: No - no points Past Medical History: Medical History[1] Food Allergies: Aripiprazole Pertussis Vaccine Pertussis Vaccines Labs: LFT's (last 3 years, up to 8 values) No lab values to display. Albumin: n/a - no points Prealbumin: n/a - no points Skin Integrity: Surgical incision - no points Fluid Accumulation: +1 - +2 Pitting edema - 2 points Diet Order: Regular Supplements: none % PO Intake: 0-50% Intake difficulties: None - 0 points 5' 8 195 lbs (January 2021) Weight history: 185 lbs - January 2024 per Care Everywhere Weight Only Weight 01/25/2021 9:15 AM 195 lb BMI: 29.65 BMI Screening value: 21 or greater - 0 points % Weight Loss: not significant Weight Loss Screening Value: Not significant - 0 points Education: No nutrition education indicated at this time. Comments: tolerating a po diet - intake appears fair. Skipped meals noted. Please obtain an admission weight as able. Awaiting transfer to SNF. Number of Points: 2 Nutritional Plan of Care: Less than or equal to 6 points: At this time, patient is at low nutrition risk. DTR to provide routine follow up. Rose Mary Patton [employer] Pager [phone] Nutrition Services Time spent on patient care: 30 minutes [1] Past Medical History: Diagnosis Date Anemia OSH H + P 01/08/2021 CKD (chronic kidney disease), stage I OSH H + P 01/08/2021 Dental caries Moderate intellectual disability OSH H + P 01/08/2021 Tuberous sclerosis (HCC) OSH H + P [facility]21[facility] SystemProgress Noteson 11-18-2024 Manager Commercial Sales Authentication Interface Message Text GENERAL INFORMATION TRAUMA FLOOR - STAFF NOTE Patient Name: Alethea Lei Admission Date: 11/13/2024 Patient seen and examined on 11/18/24 INTERVAL HISTORY/EVENTS Background: Alethea Lei is a 54 year old male with PMH of autism, seizure disorder, OCD, CKD-stage 3, depression, hypothyroidism, BPH, urinary retention, and history of frequent falls presented to OSH ED s/p fall. Unknown headstrike, unknown LOC. Transferred to [facility] due to findings of open tib/fib fx on the R. Trauma work up revealed R clavicle fx, T3 vertebral body fx, T8 compression deformity, proximal R fibula fx and open R distal tib/fib fx. Ortho and Ortho Spine were consulted. Admitted under the Trauma service, status post intramedullary nail fixation of right tibia fracture 11/14/24. Hospital Course: 11/13/2024: Presented to ED s/p ground level fall. Initially taken to OSH and found to have open distal tib/fib on the R. Transferred to [facility]. Ortho, Ortho Spine consulted. Admitted to the [facility] but boarding in ED due to bed availability. Difficult martini placement, Urology consulted. 11/14/2024: To OR with orthopedics for intramedullary nail fixation of right tibia fracture. POC NVI, pain well controlled. 11/15/2024: Patient nonverbal on assessment, verified with patients mother this is not baseline. 11/16/2024: Patient conversive on exam, following commands 11/17/2024: Awaiting upright T spine Xrays 24 Hour Events: NAEON. On exam this AM patient drowsy, states I am ok . Denies any pain Labs: Refused labs Vitals: Afebrile, VSS Intake: PO: 870 ml Output: UOP: 1,700 ml BM: Last BM documented: 11/16 PHYSICAL EXAM Vital Signs: Vital sign ranges over the past 24 hours (retrieved 11/18/2024 at 6:28 PM): Tmax (24 hours): 98.2 ???F (36.8 ???C) Pulse Av Min: 71 Max: 74 Systolic (24hrs), Av , Min:121 , Max:159 Diastolic (24hrs), Av, Min:66, Max:90 MAP (mmHg) Av.3 mmHg Min: 84 mmHg Max: 109 mmHg Resp Av.3 Min: 16 Max: 18 SpO2 Av.3 % Min: 95 % Max: 97 % 24 Hour Input/Output Intake/Output Summary (Last 24 hours) at 11/18/2024 1828 Last data filed at 11/18/2024 1351 Gross per 24 hour Intake 850 ml Output 2200 ml Net -1350 ml PHYSICAL EXAM GENERAL: Resting in bed. Drowsy. NAD. NEURO: A+Ox1. Hesitant speech. Follows simple commands. HEENT: Atraumatic CARDIOVASCULAR: Regular rate PULMONARY: Breathing unlabored on room air ABDOMINAL: Soft, non distended, non tender EXTREMITIES: CHAVARRIA. RUE in sling. RLE in splint. SKIN: Warm and dry LABORATORY RESULTS (LAST 24 HOURS) CBC/PT/INR No lab values to display. Basic Metabolic Panel No lab values to display. Fingerstick Glucose (last 72 hours) None IMAGING RESULTS (PERSONALLY REVIEWED) XR T spine * Evaluation of the upper thoracic spine is suboptimal on the lateral images because of the shoulders. * Evaluation of the vertebral body heights is suboptimal secondary to suboptimal projection of the lateral view. * The x-ray is further degraded by motion related artifact on lateral view. Within the constraints described above, no evident vertebral body height loss or significant listhesis is seen. ASSESSMENT AND PLAN Diagnoses: 1. S/p mechanical fall on 11/13/2024 2. R clavicle fx (Ortho, non-op) 3. T3 vertebral body fx (Ortho Spine, non-op) 4. T8 compression deformity (Ortho Spine, non-op) 5. Proximal R fibula fx (Ortho) 6. Open R distal tib/fib fx (Ortho, s/p R tibia IMN and R ankle removal of hardware on 11/14) 7. Acute pain due to trauma 8. Acute post op pain 9. Urinary retention 10. SHANON 11. Leukocytosis 12. Acute blood loss anemia 13. 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 Plan: Neurological: Acute pain due to trauma. Acute postoperative pain. Hx Autism, depression, OCD, seizure disorder - Continue acetaminophen 1000mg q8h scheduled - Continue robaxin 750mg Q8h scheduled - Continue lidoderm patch daily - Continue oxycodone 2.5/5mg q4h PRN moderate/severe pain - Continue home benztropin 1mg TID - Continue home Haldol 15mg BID - Continue home Haldol 10mg QPM - Continue home keppra 500mg BID (more content not included)...NormalThe [employer] SystemTranscription Authentication Interface Message TextCASE MANAGEMENT/SOCIAL WORK [facility] NOTE: Pt has been cleared for transfer to [facility] on this date Pt will be transferred to [facility] via Huseyin Roe ([phone]) at 8pm Nursing report may be called to [phone], ext [phone] Support person notified: Marlin Lei,(Mother) [phone] Patient/Family, team aware of above and agreeable. For discharge, please ensure the following is completed: MD to place DC order, reconcile meds, and print narcotics to go with patient to SNF [facility] to print Discharge Summary, [place], Summary of Care, Narcotic Scripts, and Signature Page and place in a packet to be given to set key driver If transport/discharge needs to be adjusted/cancelled, team (MD/RN) to cancel transport, update support person, and update receiving facility.NormalThe [facility] SystemTranscription Authentication Interface Message TextRN in to attempt AM lab draw for timed anti-fxa, patient not cooperating with RN and continuously thrashes around, despite redirection and gentle approach. On-call MD notified via MessageGate chat of situation.NormalThe [facility] SystemXR Thoracic spine 3 Viewson [phone] rodas MD - 11/18/2024 EXAMINATION: XR T-SPINE 3 VIEWSPRO 11/18/2024 05:14 PM CLINICAL HISTORY: Evaluation of alignment in setting of known T spine fractures ASSOCIATED DIAGNOSIS: ORDERING PROVIDER: KIMBERLY HUNTER TECHNOLOGISTS NOTE: COMPARISON: CT thoracic/ lumbar spine on 11/13/2024. FINDINGS/ IMPRESSION: Limitations: * Evaluation of the upper thoracic spine is suboptimal on the lateral images because of the shoulders. * Evaluation of the vertebral body heights is suboptimal secondary to suboptimal projection of the lateral view. * The x-ray is further degraded by motion related artifact on lateral view. Within the constraints described above, no evident vertebral body height loss or significant listhesis is seen. MACRO: None [facility] observation (narrative)[facility]XR Thoracic spine 3 ViewsOrdered By: Guanako Conklin on [phone] Work Phone: bASIC METABOLIC PANELon [phone] gap [Moles/Vol]14 mmol/ZZqfgbf58-35Kft MetOhioHealth [facility] SystemComment on above:Performed By: #### PHOS, CH8, MG #### [facility] [address] [place] [address], [address]Eepfrrz [Mass/Vol]9.0 mg/dLNormal8.6-10.3The [facility] SystemComment on above:Performed By: ###BING BAILON, MG #### [facility] [address] [place] [address], [address]Bfwbtwtg [Moles/Vol]108 mmol/FDsbk26-967Wdk [facility] Centerro[facility] SystemComment on above:Performed By: #### BING CLEANING, MG #### [facility] [address] [place] [address], [address]FB6 [Moles/Vol]26 mmol/PInqkhk48-72Mlt [facility] Centerro[facility] SystemComment on above:Performed By: ###BING BAILON, MG #### [facility] [address] [place] [address], [address]Iaagtmpfwj [Mass/Vol]1.49 mg/dLHigh0.70-1.30The [facility] Centerro[facility] SystemComment on above:Performed By: ###BING BAILON, MG #### [facility] [address] [place] [address], [address]XAWKLGLBW GFR (CKD-EPI)55 mL/min/1.73sqmLow>=60The [facility] Hospital[facility] SystemComment on above:Result Comment: 2020 CKD EPI Equation using Creatinine without Race Comment: Estimated glomerular filtration rate (eGFR) is calculated without [...] Med 1 Vol. 385 Issue 19 Pages 5448-7987Performed By: ###BING BAILON, MG #### [facility] [address] [place] [address], [address]Xtrbakh [Mass/Vol]128 mg/vSBgtu94-352Amu [facility] Centerro[facility] SystemComment on above:Performed By: ###Sandrita CLEANING CH8, MG #### [facility] [address] [place], [address]Blsgfeehn [Moles/Vol]4.0 mmol/LNormal3.5-5.0The [facility] Centerro[facility] SystemComment on above:Performed By: #### BING CLEANING, MG #### [facility] [address] [place], [address]Dqsbsu [Moles/Vol]144 mmol/RBydkzd451-562Biw [facility] Centerro[facility] SystemComment on above:Performed By: #### BING CLEANING, MG #### [facility] [address] [place], [address]Raef nitrogen [Mass/Vol]21 mg/dLNormal7-25The [facility] [place] [facility] SystemComment on above:Performed By: #### BING CLEANING, MG #### S [facility]AT[facility] [address] [place] [address], [address]QAHKCPOG BLOOD COUNTon 28-75-8957Glpgkkrjneu distribution width (RBC) [Ratio]13.3 %Zomdlw35.5-14.5The [facility] Comment on above:Performed By: #### CBC ####S PATHOLOGY [address] [place], [address]Nbxegmtkin (Bld) [Volume fraction]28.3 %Low41.0-53.0The [facility] [place] [facility] SystemComment on above:Performed By: #### CBC ####S PATHOLOGY TGWOGJWLTV[address] [place], [place], Hemoglobin (Bld) [Mass/Vol]9.8 g/dLLow13.9-16.3The [facility] [place] [facility] SystemComment on above:Performed By: #### CBC ####S PATHOLOGY R[address]FANGKW[address] [place], [address]FUI (RBC) [Entitic mass]34.2 orJzny84.0-34.0The [facility] [place] [facility] SystemComment on above:Performed By: #### CBC ####S PATHOLOGY ERZ[address]OTNUS[address] [place], [address]ICBV (RBC) [Mass/Vol] 34.5 g/qOYwjroi02.0-35.9The [facility] SystemComment on above:Performed By: #### CBC ####[facility] PATHOLOGY [address] [place] [address], [address]XME (RBC) [Entitic vol]99 cINekpci82-472Hop [facility] SystemComment on above:Performed By: #### CBC ####[facility] PATHOLOGY A[address] [place] [address], [address]Xgsabwzm mean volume (Bld) [Entitic vol]8.4 fL Normal7.5-11.2The [facility] SystemComment on above:Performed By: #### CBC ####[facility] PATHOLOGY [address] [place] [address], Platelets (Bld) [#/Vol]178 10*3/fSPhvznp183-896Gbl [facility] SystemComment on above:Performed By: #### CBC ####[facility] PATHOLOGY [address] [place] [address], [address]GMR (Bld) [#/Vol]2.86 10*6/uLLow4.50-5.90The [facility] SystemComment on above:Performed By: #### CBC ####[facility] PATHOLOGY [address] [place] [address], [address]ZKN (Bld) [#/Vol]8.6 10*3/uLNormal4.5-11.5The [facility] Centerro[facility] SystemComment on above:Performed By: #### CBC ####[facility] PATHOLOGY X[address] [place] [address], MAGNESIUMon 96-34-2799Djgwvstlr [Mass/Vol]1.7 mg/dLLow1.9-2.7The [facility] SystemComment on above:Performed By: #### PHOS, CH8, MG #### [facility] [address] [place] [address], [address]RRICOKSPFUez 80-29-2163Wpvbzlccs [Mass/Vol]3.0 mg/dL Normal2.5-5.0The [facility] SystemComment on above:Performed By: #### PHOS, CH8, MG #### [facility] [address] [place] [address], [address]Ufbatwgv Noteson [phone] Authentication Interface Message Text GENERAL INFORMATION TRAUMA FLOOR - STAFF NOTE Patient Name: Alethea Lei Admission Date: 11/13/2024 Patient seen and examined on 11/17/24 INTERVAL HISTORY/EVENTS Background: Alethea Lei is a 54 year old male with PMH of autism, seizure disorder, OCD, CKD-stage 3, depression, hypothyroidism, BPH, urinary retention, and history of frequent falls presented to OSH ED s/p fall. Unknown headstrike, unknown LOC. Transferred to [facility] due to findings of open tib/fib fx on the R. Trauma work up revealed R clavicle fx, T3 vertebral body fx, T8 compression deformity, proximal R fibula fx and open R distal tib/fib fx. Ortho and Ortho Spine were consulted. Admitted under the Trauma service, status post intramedullary nail fixation of right tibia fracture 11/14/24. Hospital Course: 11/13/2024: Presented to ED s/p ground level fall. Initially taken to OSH and found to have open distal tib/fib on the R. Transferred to [facility]. Ortho, Ortho Spine consulted. Admitted to the [facility] but boarding in ED due to bed availability. Difficult martini placement, Urology consulted. 11/14/2024: To OR with orthopedics for intramedullary nail fixation of right tibia fracture. POC NVI, pain well controlled. 11/15/2024: Patient nonverbal on assessment, verified with patients mother this is not baseline. 11/16/2024: Patient conversive on exam, following commands 24 Hour Events: NAEON. On exam this AM patient conversive. A+Ox1. Denies any pain. Labs: No leukocytosis, Hgb down stable 9.8 (9.4) Magnesium 1.7 - replacement ordered Vitals: Afebrile, VSS Intake: PO: 315 ml Output: UOP: 2,100 ml BM: Last BM documented: 11/16 PHYSICAL EXAM Vital Signs: Vital sign ranges over the past 24 hours (retrieved 11/17/2024 at 12:04 PM): Tmax (24 hours): 98.4 ???F (36.9 ???C) Pulse Av.3 Min: 79 Max: 84 Systolic (24hrs), Av , Min:135 , Max:154 Diastolic (24hrs), Av, Min:66, Max:94 MAP (mmHg) Av mmHg Min: 84 mmHg Max: 107 mmHg Resp Av.7 Min: 17 Max: 18 SpO2 Av.3 % Min: 95 % Max: 98 % 24 Hour Input/Output Intake/Output Summary (Last 24 hours) at 11/17/2024 1204 Last data filed at 11/17/2024 0900 Gross per 24 hour Intake 435 ml Output 2300 ml Net -1865 ml PHYSICAL EXAM GENERAL: Resting in bed. NAD. NEURO: A+Ox1. Hesitant speech. Follows simple commands. HEENT: Atraumatic CARDIOVASCULAR: Regular rate PULMONARY: Breathing unlabored on room air ABDOMINAL: Soft, non distended, non tender EXTREMITIES: CHAVARRIA. RUE in sling. RLE in splint. SKIN: Warm and dry LABORATORY RESULTS (LAST 24 HOURS) CBC/PT/INR 11/17/2024 6:57 AM WBC 8.6 RBC 2.86 Hgb 9.8 Hct 28.3 MCV 99 RDW 13.3 Plt 178 Basic Metabolic Panel 11/17/2024 6:57 AM Na 144 K 4.0 Cl 108 CO2 26 Gap 14 Glu 128 BUN 21 Cr 1.49 Ca 9.0 Mg 1.7 PO4 3.0 Fingerstick Glucose (last 72 hours) None IMAGING RESULTS (PERSONALLY REVIEWED) No new imaging ASSESSMENT AND PLAN Diagnoses: 1. S/p mechanical fall on 11/13/2024 2. R clavicle fx (Ortho, non-op) 3. T3 vertebral body fx (Ortho Spine, non-op) 4. T8 compression deformity (Ortho Spine, non-op) 5. Proximal R fibula fx (Ortho) 6. Open R distal tib/fib fx (Ortho, s/p R tibia IMN and R ankle removal of hardware on 11/14) 7. Acute pain due to trauma 8. Acute post op pain 9. Urinary retention 10. SHANON 11. Leukocytosis 12. Acute blood loss anemia 13. 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 Plan: Neurological: Acute pain due to trauma. Acute postoperative pain. Hx Autism, depression, OCD, seizure disorder - Continue acetaminophen 1000mg q8h scheduled - Continue robaxin 750mg Q8h scheduled - Continue lidoderm patch daily - Continue oxycodone 2.5/5mg q4h PRN moderate/severe pain - Continue home benztropin 1mg TID - Continue home Haldol 15mg BID - Continue home Haldol 10mg QPM - Continue home keppra 500mg BID - Continue home oxcarbazepine 600mg AM, 1200mg at bedtime - Continue home paroxetine 60mg at bedtime Cardiovascular: No acute issues, Hx HTN, HLD - No acute cardiac issues, continue (more content not included)...NormalThe [facility] SystemBASIC METABOLIC PANELon [id number] gap [Moles/Vol]13 mmol/GPxyvbn43-30Utj [facility] SystemComment on above:Performed By: #### BING CLEANING, MG #### [facility] [address] [place] [address], [address]Awhjclx [Mass/Vol]9.1 mg/dLNormal8.6-10.3The [facility] SystemComment on above:Performed By: #### POLA CLEANING8, MG #### [facility] [address] [place] [address], [address]Sptxqthh [Moles/Vol]113 mmol/SLuas50-467Rbk [facility] [place] [facility] SystemComment on above:Performed By: #### POLA CLEANING8, MG #### [facility] [address] [place] [address], [address]HS2 [Moles/Vol]27 mmol/JBadagn37-27Fon [facility] Hospital[facility] SystemComment on above:Performed By: #### HERMILA, CH8, MG #### [facility] [address] [place] [address], [address]Xwqnupfwxe [Mass/Vol]1.69 mg/dLHigh0.70-1.30The [facility] [place] [facility] SystemComment on above:Performed By: #### TITUSS, CH8, MG #### [facility] [address] [place] [address], [address]KYFCOODMU GFR (CKD-EPI)47 mL/min/1.73sqmLow>=60The MetroHealth SystemComment on above:Result Comment: 2020 CKD EPI Equation using Creatinine without Race Comment: Estimated glomerular filtration rate (eGFR) is calculated without [...] Diseases 2021;79(2):268-88.e1. 2. N Engl J Med 2020 Vol. 385 Issue 19 Pages 5514-5224Performed By: #### BING CLEANING MG #### [facility] [address] [place] [address], [address]Zlneqsn [Mass/Vol]125 mg/nNXdnx56-405Bsg [facility] SystemComment on above:Performed By: #### BING CLEANING, MG #### [facility] [address] [place] [address], [address]Myvhvieqo [Moles/Vol]4.1 mmol/LNormal3.5-5.0The [facility] SystemComment on above:Performed By: ###BING BAILON, MG #### [facility] [address] [place] [address], [address]Scmvpz [Moles/Vol]149 mmol/JSyty266-573Xii [facility] [place] [facility] SystemComment on above:Performed By: ###BING BAILON, MG #### [facility] [address] [place] [address], [address]Llsj nitrogen [Mass/Vol]23 mg/dLNormal7-25The [facility] [place] [facility] SystemComment on above:Performed By: ###BING BAILON, MG #### [facility] [address] [place] [address], [address]NYCRIBBO BLOOD COUNTon 01-60-8093Zujluqjklmf distribution width (RBC) [Ratio]13.5 %Cavefp71.5-14.5The [facility] [place] [facility] Comment on above:Performed By: ###BING BAILON, MG #### [facility] [address] [place] [address], [address]Rtbodoaojm (Bld) [Volume fraction]27.0 %Low41.0-53.0The [facility] SystemComment on above:Performed By: #### BING CLEANING, MG #### [facility] [address] [place] [address], [address]Qrfgzbmure (Bld) [Mass/Vol]9.4 g/dLLow13.9-16.3The [facility] SystemComment on above:Performed By: #### BING CLEANING, MG #### [facility] [address] [place] [address], [address]RNG (RBC) [Entitic mass]34.4 seTmih83.0-34.0The [facility] CenterroHealth SystemComment on above:Performed By: #### BING CLEANING, MG #### [facility] [address] [place] [address], [address]KHBJ (RBC) [Mass/Vol]35.0 g/vKOtssit35.0-35.9The [facility] CenterroHealth SystemComment on above:Performed By: #### BING CLEANING, MG #### [facility] [address] [place] [address], [address]ZBO (RBC) [Entitic vol]98 sYIzjejv45-311Byo [facility] CenterroHealth SystemComment on above:Performed By: #### BING CLEANING, MG #### [facility] [address] [place] [address], [address]Enimxrmf mean volume (Bld) [Entitic vol]8.5 fLNormal 7.5-11.2The [facility] Centerro[facility] SystemComment on above:Performed By: #### BING CLEANING, MG #### [facility] [address] [place] [address], [address]Gitvcputm (Bld) [#/Vol]160 10*3/sGDhkctc075-709Kwc [facility] Centerro[facility] SystemComment on above:Performed By: #### BING CLEANING, MG #### [facility] [address] [place] [address], [address]DCN (Bld) [#/Vol]2.75 10*6/uLLow4.50-5.90The [facility] [place] [facility] SystemComment on above:Performed By: #### BING CLEANING, MG #### [facility] [address] [place], [address]QRZ (Bld) [#/Vol]9.2 10*3/uLNormal4.5-11.5The [facility] [place] [facility] SystemComment on above:Performed By: #### HERMILA, BING, MG #### [facility] [address] [place], [address]Mvlczwvrhn 15-00-7822Gcqtybpkpxgtg Authentication Interface Message Tip[employer] Language Pathology Documentation Physician order received for cognitive evaluation. Per chart review, it appears that patient was non-verbal with provider on 11/16 and mother reports that patient is typically verbal/social. She has c/f patient missing his home and familiar people and/or could be that he is scared and in a new place. CTH this admission is negative for acute intracranial abnormalities. Upon PLATE HANGER arrival, patient requesting water. Patient readily verbally communicating with PLATE HANGER. He demo ability to utilize appropriate social greetings, express basic wants and needs and making appropriate comments to context. He participates in self administering liquids without notable difficulty. Per discussion with RN, patient has been verbally communicating wants/needs with RN this date. Given the above screening results and consideration of acute and chronic medical co-morbidities, there is low c/f acute neurological change impacting cognitive-communication skills. Suspect reduced verbal communication earlier this admission to be more likely r/t unfamiliar persons, places and post surgical/medical effects. At this time, further PLATE HANGER evaluation does not appear indicated. Reason for Consult: Cognitive evaluation. Hx autism. Currently nonverbal, not nonverbal at baseline History/Diagnosis: 54 year old male with PMH significant for autism, seizure disorder, OCD, CKD-stage 3, depression, hypothyroidism, BPH, urinary retention, and history of frequent falls presented to OSH ED s/p fall. Diagnoses: 1. S/p mechanical fall on 11/13/2024 2. R clavicle fx (Ortho, non-op) 3. T3 vertebral body fx (Ortho Spine, non-op) 4. T8 compression deformity (Ortho Spine, non-op) 5. Proximal R fibula fx (Ortho) 6. Open R distal tib/fib fx (Ortho, s/p R tibia IMN and R ankle removal of hardware on 11/14) 7. Acute pain due to trauma 8. Acute post op pain 9. Urinary retention 10. SHANON 11. Leukocytosis (resolved) 12. Acute blood loss anemia PMHx: autism, seizure disorder, OCD, CKD-stage 3, depression, hypothyroidism, BPH, urinary retention, and history of frequent falls Pertinent History: Medical History[1] Surgical History[2] Family History[3] Social History[4] Current Medications[5] Allergies[6] Imaging: [facility] 11/13/24 IMPRESSION: No acute intracranial abnormality. Stigmata of tuberous sclerosis. Susu Galindo CCC-PLATE HANGER, MS-CCC/PLATE HANGER Speech and Language Pathologist Secure chat preferred ([phone] M,T,TH, F) Pager [phone] [1] Past Medical History: Diagnosis Date Anemia OSH H + P 01/08/2021 CKD (chronic kidney disease), stage I OSH H + P 01/08/2021 Dental caries Moderate intellectual disability OSH H + P 01/08/2021 Tuberous sclerosis (HCC) OSH H + P 01/08/2021 [2] Past Surgical History: Procedure Laterality Date DENTAL RESTORATIONS Bilateral 01/25/2021 Procedure: DENTAL RESTORATIONS; Surgeon: Mina Solorzano DDS; Location: [facility] [place]; Service: Dental EXCISION, LESION, ORAL Right 01/25/2021 Procedure: EXCISION, LESION, ORAL; Surgeon: Mina Solorzano DDS; Location: [facility] Surgery [place]; Service: Dental REDUCTION, OPEN, TIBIA Right 11/14/2024 Preliminary Information: Procedure: REDUCTION, OPEN, TIBIA; Surgeon: Jose Truong MD; Location: [facility]; Service: Orthopaedics REDUCTION, OPEN, TIBIA, INTRAMEDULLARY MARKOS Right 11/14/2024 Preliminary Information: Procedure: REDUCTION, OPEN, TIBIA, INTRAMEDULLARY MARKOS; Surgeon: Jose Truong MD; Location: PERIOPERATIVE SERVICES; Service: Orthopaedics [3] No family history on file. [4] [5] Current Facility-Administered Medications: [START ON 11/17/2024] enoxaparin (LMWH) anti-fxa lab draw, , Other, One Time Dose, Jethro Ziegler MD doxycycline (VIBRA-TABS) 100 MG tablet, 100 mg, Oral, 2x Daily, Kimberly Hunter, CREDIT ADMINISTRATION MANAGER-PREFORM MACHINE OPERATOR, 100 mg at 11/16/24 09 sodium chloride 0.9 % injection, 3 mL, Intravenous, PRN, Jethro Ziegler MD naloxone (NARCAN) 0.4 MG/ML injection, 0.4 mg, Intravenous, PRN, Jethro Ziegler MD senna (SENOKOT) tablet, 8.6 mg, Oral, At Bedtime, Jethro Ziegler MD, 8.6 mg at 11/15/24 210 tamsulosin (FLOMAX) capsule, 0.4 mg, Oral, Daily, Jethro Ziegler MD, 0.4 mg at 11/16/24 09 haloperidol (HALDOL) tablet, 10 mg, Oral, Every evening, Jethro Ziegler MD, 10 mg at 11/15/24 1711 lactated ringers iv infusion, , Intravenous, Continuous, Jethro Ziegler MD, Last Rate: 75 mL/hr at 11/14/24 0038, New Bag at 11/14/24 0038 enoxaparin (LOVENOX) 40 MG/0.4ML injection 40 mg, 0.5 mg/kg (Order-Specific), Subcutaneous, 2x Daily, Jethro Ziegler MD, 40 mg at 11/16/24 0903 lidocaine (LIDODERM) 4 % patch, 1 Patch, Transdermal, Every 24 hours, Carter Ziegler (more content not included)...NormalThe MetroHealth SystemMAGNESIUMon 44-47-5854Muvfenvgb [Mass/Vol]1.8 mg/dLLow1.9-2.7The [facility] SystemComment on above:Performed By: #### BING CLEANING, MG #### [facility] [address] [place], [address]NPTFHGIXVG, URINEon 50-20-0918CWDR U310 mOsm/KgNormal 50-1400The [facility] CenterroHealth SystemComment on above:Performed By: #### OSMO U ####[facility] [address] [place], [address]JYGDMNFHLXwb [phone] [Mass/Vol]3.1 mg/dLNormal2.5-5.0The [facility] System Comment on above:Performed By: #### BING CLEANING, MG #### [facility] [address] [place], [address]Kqpcmrqk Noteson [phone] Authentication Interface Message Text GENERAL INFORMATION TRAUMA FLOOR - STAFF NOTE Patient Name: Alethea Lei Admission Date: 11/13/2024 Patient seen and examined on 11/16/24 INTERVAL HISTORY/EVENTS Background: Alethea Lei is a 54 year old male with PMH of autism, seizure disorder, OCD, CKD-stage 3, depression, hypothyroidism, BPH, urinary retention, and history of frequent falls presented to OSH ED s/p fall. Unknown headstrike, unknown LOC. Transferred to [facility] due to findings of open tib/fib fx on the R. Trauma work up revealed R clavicle fx, T3 vertebral body fx, T8 compression deformity, proximal R fibula fx and open R distal tib/fib fx. Ortho and Ortho Spine were consulted. Admitted under the Trauma service, status post intramedullary nail fixation of right tibia fracture 11/14/24. Hospital Course: 11/13/2024: Presented to ED s/p ground level fall. Initially taken to OSH and found to have open distal tib/fib on the R. Transferred to [facility]. Ortho, Ortho Spine consulted. Admitted to the [facility] but boarding in ED due to bed availability. Difficult martini placement, Urology consulted. 11/14/2024: To OR with orthopedics for intramedullary nail fixation of right tibia fracture. POC NVI, pain well controlled. 11/15/2024: Patient nonverbal on assessment, verified with patients mother this is not baseline. 24 Hour Events: NAEON. On exam this AM patient conversive. A+Ox2. Denies any pain. Labs: No leukocytosis, Hgb down trended 9.4 (10.7) Hypernatremic 149 (146). Magnesium 1.8 - replacement ordered Vitals: Afebrile, VSS Intake: PO: 1,280 Output: UOP: 1,975 BM: Last BM documented: None documented PHYSICAL EXAM Vital Signs: Vital sign ranges over the past 24 hours (retrieved 11/16/2024 at 12:36 PM): Tmax (24 hours): 99.3 ???F (37.4 ???C) Pulse Av.3 Min: 88 Max: 92 Systolic (24hrs), Av , Min:145 , Max:155 Diastolic (24hrs), Av, Min:68, Max:93 MAP (mmHg) Av.3 mmHg Min: 91 mmHg Max: 110 mmHg Resp Av Min: 16 Max: 18 SpO2 Av.5 % Min: 93 % Max: 98 % 24 Hour Input/Output Intake/Output Summary (Last 24 hours) at 11/16/2024 1236 Last data filed at 11/16/2024 0600 Gross per 24 hour Intake 1280 ml Output 1975 ml Net -695 ml PHYSICAL EXAM GENERAL: Resting in bed. NAD. NEURO: A+Ox2. Hesitant speech. Follows simple commands. HEENT: Atraumatic CARDIOVASCULAR: Regular rate PULMONARY: Breathing unlabored on room air ABDOMINAL: Soft, non distended, non tender EXTREMITIES: CHAVARRIA. RUE in sling. RLE in splint. SKIN: Warm and dry LABORATORY RESULTS (LAST 24 HOURS) CBC/PT/INR 11/16/2024 1:35 AM WBC 9.2 RBC 2.75 Hgb 9.4 Hct 27.0 MCV 98 RDW 13.5 Plt 160 Basic Metabolic Panel 11/16/2024 11/16/2024 10:43 AM 1:35 AM Na 148 149 K -- 4.1 Cl -- 113 CO2 -- 27 Gap -- 13 Glu -- 125 BUN -- 23 Cr -- 1.69 Ca -- 9.1 Mg -- 1.8 PO4 -- 3.1 Fingerstick Glucose (last 72 hours) None IMAGING RESULTS (PERSONALLY REVIEWED) No new imaging ASSESSMENT AND PLAN Diagnoses: 1. S/p mechanical fall on 11/13/2024 2. R clavicle fx (Ortho, non-op) 3. T3 vertebral body fx (Ortho Spine, non-op) 4. T8 compression deformity (Ortho Spine, non-op) 5. Proximal R fibula fx (Ortho) 6. Open R distal tib/fib fx (Ortho, s/p R tibia IMN and R ankle removal of hardware on 11/14) 7. Acute pain due to trauma 8. Acute post op pain 9. Urinary retention 10. SHANON 11. Leukocytosis 12. Acute blood loss anemia 13. 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 Plan: Neurological: Acute pain due to trauma. Acute postoperative pain. Hx Autism, depression, OCD, seizure disorder - Continue acetaminophen 1000mg q8h scheduled - Continue robaxin 750mg Q8h scheduled - Continue lidoderm patch daily - Continue oxycodone 2.5/5mg q4h PRN moderate/severe pain - Continue home benztropin 1mg TID - Continue home Haldol 15mg BID - Continue home Haldol 10mg QPM - Continue home keppra 500mg BID - Continue home oxcarbazepine 600mg BID - Continue home paroxetine 40mg daily Cardiovascular: No acute issues, Hx HTN, HLD - No acute cardiac issues, cont (more content not included)...NormalThe [facility] Centerbiix, Inc. SystemSODIUMon 92-78-9483Ckqjqd [Moles/Vol]148 mmol/SVjby470-866Zjk [facility] HospitalAsetek SystemComment on above:Performed By: #### PHOS, CH8, MG #### [facility] [address] [place], [address]RMUIYX, RANDOM URINEon 02-72-0724Tjcrpd (U) [Moles/Vol] 63 mmol/LNormalThe [facility] SystemComment on above:Performed By: #### LACT #### [facility] [address] [place] [address], [address]Zxdvlyfg Noteon 16-97-0926Dtlrumqkgfxgb Authentication Interface Message TextAddendum created 11/15/24 1456 by Thanh Linton MD Clinical Note SignedNormalThe [facility] SystemAnesthesia Postprocedure Evaluationon [phone] Authentication Interface Message Text Anesthesia Postoperative Assessment: Vital Signs (most recent): BP 155/78 (BP Location: left arm) Pulse 88 Temp 37.4 ???C (99.3 ???F) (Axillary) Resp 16 Ht 5' 8 (1.727 m) SpO2 93% BMI 29.65 kg/m??? Anesthesia Post Evaluation Level of consciousness: awake Post-procedure exam normal. Body temperature, hydration status, PONV and pain evaluated and addressed. Pain management: adequate Hydration status: normal PONV:No nausea/vomiting reported Cardiopulmonary status stable Respiratory status: acceptable ANESTHESIA NOTABLE EVENTS: No notable events documented.NormalThe [facility] SystemBASIC METABOLIC PANELon 73-16-5115Tyvcd gap [Moles/Vol]15 mmol/AAekkgh04-35You [facility] Comment on above:Performed By: #### LACT #### [facility] [address] [place] [address], [address]Chhyrhn [Mass/Vol]8.8 mg/dLNormal8.6-10.3The [facility] CenterroHealth SystemComment on above:Performed By: #### LACT #### [facility] [address] [place] [address], [address]Uajtzozg [Moles/Vol]113 mmol/FWejn45-669Aop [facility] CenterroUniversity [facility] SystemComment on above:Performed By: #### LACT #### [facility] [address] [place] [address], [address]AP1 [Moles/Vol]23 mmol/DWuabmf04-03Bdg [facility] SystemComment on above:Performed By: #### LACT #### [facility] [address] [place] [address], [address]Enrvtmwvxe [Mass/Vol]1.85 mg/dLHigh0.70-1.30The [facility] SystemComment on above:Performed By: #### LACT #### [facility] [address] [place] [address], [address]XDCFXLRDK GFR (CKD-EPI)42 mL/min/1.73sqmLow>=60The [facility] CenterroHealth SystemComment on above:Result Comment: 2020 CKD EPI Equation using Creatinine without Race Comment: Estimated glomerular filtration rate (eGFR) is calculated without [...] Med 1 Vol. 385 Issue 19 Pages 8794-2347Performed By: #### LACT #### [facility] [address] [place] [address], [address]Vjekpnc [Mass/Vol]136 mg/kUGftx56-085Kll [facility] CenterroHealth SystemComment on above:Performed By: #### LACT #### [facility] [address] [place] [address], [address]Jiovulops [Moles/Vol]4.6 mmol/LNormal3.5-5.0The [facility] CenterroHealth SystemComment on above:Performed By: #### LACT #### [facility] [address] [place] [address], [address]Urdlfu [Moles/Vol]146 mmol/QZehc373-076Bju [facility] CenterroHealth SystemComment on above:Performed By: #### LACT #### [facility] [address] [place] [address], [address]Tsjl nitrogen [Mass/Vol]26 mg/dLHigh7-25The [facility] SystemComment on above:Performed By: #### LACT #### [facility] [address] [place] [address], [address]FMJAOSWD BLOOD COUNTon 64-05-1384Tifzyfbgteq distribution width (RBC) [Ratio]13.6 %Umhjwu14.5-14.5The [facility] System Comment on above:Performed By: #### BING CLEANING, MG #### [facility] [address] [place] [address], [address]Dtoyrucpws (Bld) [Volume fraction]32.5 %Low41.0-53.0The [facility] CenterroHealth SystemComment on above:Performed By: #### BING CLEANING, MG #### [facility] [address] [place] [address], [address]Hzrdmbrmbg (Bld) [Mass/Vol]10.7 g/dLLow13.9-16.3The [facility] CenterroHealth SystemComment on above:Performed By: #### BING CLEANING, MG #### [facility] [address] [place] [address], [address]EMC (RBC) [Entitic mass]32.8 zdAsynwf14.0-34.0The [facility] CenterroHealth SystemComment on above:Performed By: #### BING CLEANING, MG #### [facility] [address] [place] [address], [address]VVGN (RBC) [Mass/Vol]32.8 g/bBNxpfll03.0-35.9The [facility] CenterroHealth SystemComment on above:Performed By: #### BING CLEANING, MG #### [facility] [address] [place] [address], [address]OLT (RBC) [Entitic vol]100 oKPxhrap30-842Gic [facility] CenterroHealth SystemComment on above:Performed By: #### BING CLEANING, MG #### [facility] [address] [place] [address], [address]Ptijabuh mean volume (Bld) [Entitic vol]8.0 fLNormal 7.5-11.2The [facility] CenterroHealth SystemComment on above:Performed By: #### BING CLEANING, MG #### [facility] [address] [place], [address]Wqdphozbq (Bld) [#/Vol]169 10*3/fJVwyqcv772-010Cae [facility] SystemComment on above:Performed By: #### BING CLEANING, MG #### [facility] [address] [place] [address], [address]MDW (Bld) [#/Vol]3.25 10*6/uLLow4.50-5.90The [facility] SystemComment on above:Performed By: #### BING CLEANING, MG #### [facility] [address] [place], [address]TFR (Bld) [#/Vol]9.7 10*3/uLNormal4.5-11.5The [facility] SystemComment on above:Performed By: #### BING CLEANING, MG #### [facility] [address] [place] [address], [address]SFRXEDVYNbe 96-26-9018Dmlhaxbec [Mass/Vol]2.0 mg/dL Normal1.9-2.7The [facility] SystemComment on above:Performed By: #### LACT #### [facility] [address] [place] [address], [address]JYSTAVFHCIts 03-61-7434Wrwsyekqy [Mass/Vol]3.1 mg/dL Normal2.5-5.0The [facility] SystemComment on above:Performed By: #### LACT #### [facility] [address] [place] [address], [address]Krdvedpj Noteson 87-07-0238Oyjdjspkfdlhi Authentication Interface Message TextPt admitted after fall at [facility] which is [facility] for IDD/behavioral concerns, not [facility]. SW spoke with pt's mother Marlin [phone] who reports pt has been a resident there since he was 13 (pt currently 54). She reports, I cannot express what a blessing it's been to us regarding the facility. She shares that she goes to visit about once a month (used to go more often but her a few years ago and driving herself long distances or getting a ride is difficult). She sometimes will have him at her home in [place] for the weekend and when she does he misses his buddies and wants to return home. She notes him being nonverbal is not at all his baseline and she is concerned that he misses home. Advised of recs for SNF and she would much prefer for pt to dc to [facility] if they can accommodate. She reports they have previously been able to accommodate after hospitalization in the past. She denies any concerns with the care there, reports, it's just wonderful. SNF list sent to her email at [email or web address] just in case [facility] is unable to accept. Mom gives permission for SW to contact and send info to [facility]: [phone] x [phone] RN supervisor lending activities Era Strong [phone] nursing dept Per medical team, pt likely to be ready tomorrow. Will need to reach out to [facility] to determine if they can accommodate pt in his current condition. LAYLA Anders Social WorkerGenesee Hospitalbiix, Inc. SystemTranscription Authentication Interface Message Text GENERAL INFORMATION TRAUMA FLOOR - DAILY PROGRESS NOTE Patient Name: Alethea Lei Admission Date: 11/13/2024 Patient seen and examined on 11/15/24 INTERVAL HISTORY/EVENTS Background: Alethea Lei is a 54 year old male with PMH significant for autism, seizure disorder, OCD, CKD-stage 3, depression, hypothyroidism, BPH, urinary retention, and history of frequent falls presented to OSH ED s/p fall. Unknown headstrike, unknown LOC. Transferred to [facility] due to findings of open tib/fib fx on the R. Trauma work up revealed R clavicle fx, T3 vertebral body fx, T8 compression deformity, proximal R fibula fx and open R distal tib/fib fx. Ortho and Ortho Spine were consulted. Admitted under the Trauma service, status post intramedullary nail fixation of right tibia fracture 11/14/24. Hospital Course: 11/13/2024: Presented to ED s/p ground level fall. Initially taken to OSH and found to have open distal tib/fib on the R. Transferred to [facility]. Ortho, Ortho Spine consulted. Admitted to the [facility] but boarding in ED due to bed availability. Difficult martini placement, Urology consulted. 11/14/2024: To OR with orthopedics for intramedullary nail fixation of right tibia fracture. POC NVI, pain well controlled. 24 Hour Events: Resting in room comfortably. No acute events overnight. Postop checks by ortho and Trauma without significant findings. Patient minimally participatory in conversation with Trauma and ortho resident overnight. Nonverbal with me today. Spoke with mother for background. Patient has known history of BPH, status post TERP at [facility] sometime in the last 3 months. Mother states that patient is normally very talkative and does not know why he has been nonverbal here although it could be that he is scared and in a new place. Discussed patient's history of tuberous sclerosis and osteoporosis. Family well aware, patient is following closely with outpatient private practice physician [facility]. UOP: 1750ml Tmax: 37.9 PHYSICAL EXAM Vital Signs: Vital sign ranges over the past 24 hours (retrieved 11/15/2024 at 2:18 PM): Tmax (24 hours): 100.2 ???F (37.9 ???C) Pulse Av.2 Min: 88 Max: 102 Systolic (24hrs), Av , Min:155 , Max:176 Diastolic (24hrs), Av, Min:78, Max:86 MAP (mmHg) Av.3 mmHg Min: 98 mmHg Max: 109 mmHg Resp Av.7 Min: 13 Max: 16 SpO2 Av.7 % Min: 92 % Max: 98 % 24 Hour Input/Output Intake/Output Summary (Last 24 hours) at 11/15/2024 1418 Last data filed at 11/15/2024 1300 Gross per 24 hour Intake 100 ml Output 1750 ml Net -1650 ml PHYSICAL EXAM GENERAL: In bed sleeping comfortably, awakes to light stimulation. Nonverbal. Does not follow commands. HEENT: EOMI, no scleral icterus CARDIOVASCULAR: RRR, 2+ radial pulses PULMONARY: No respiratory distress, no accessory muscle use ABDOMINAL: Soft, non-tender, not distended EXTREMITIES: Right lower extremity in splint, toes warm and well perfused, withdraws toes to pain, moving. SKIN: warm and dry NEUROLOGICAL: no focal deficits, moves all extremities, does not follow commands, tracks with eyes, nonverbal. LABORATORY RESULTS (LAST 24 HOURS) CBC/PT/INR 11/15/2024 2:32 AM WBC 9.7 RBC 3.25 Hgb 10.7 Hct 32.5 MCV 100 RDW 13.6 Plt 169 Basic Metabolic Panel 11/15/2024 2:32 AM Na 146 K 4.6 Cl 113 CO2 23 Gap 15 Glu 136 BUN 26 Cr 1.85 Ca 8.8 Mg 2.0 PO4 3.1 Fingerstick Glucose (last 72 hours) None IMAGING RESULTS (PERSONALLY REVIEWED) No new imaging ASSESSMENT AND PLAN Diagnoses: 1. S/p mechanical fall on 11/13/2024 2. R clavicle fx (Ortho, non-op) 3. T3 vertebral body fx (Ortho Spine, non-op) 4. T8 compression deformity (Ortho Spine, non-op) 5. Proximal R fibula fx (Ortho) 6. Open R distal tib/fib fx (Ortho, s/p R tibia IMN and R ankle removal of hardware on 11/14) 7. Acute pain due to trauma 8. Acute post op pain 9. Urinary retention 10. SHANON 11. Leukocytosis (resolved) 12. 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 Plan: Neurological: Acute pain due to tra (more content not included)...NormalThe [facility]aughlin Memorial HospitalAsetek SystemTranscription Authentication Interface Message [facility] Department of Surgery POST-OPERATIVE CHECK Alethea Lei [id number] Procedures: 1. Intramedullary nail fixation, right tibia fracture 2. Removal of deep implant, right tibia Findings: RIGHT tibia fx Complications: None SUBJECTIVE Pt PMH of autism and minimal participation in conversation. He does not endorse RLE pain and states that he is unable to feel sensation in the toes. OBJECTIVE BP 162/86 (BP Location: right arm) Pulse 96 Temp 99.9 ???F (37.7 ???C) (Axillary) Resp 16 SpO2 96% Gen: NAD AAOx3 Pulm: Non labored breathing on Room air CV: Non-tachycardic Msk: Dressing CDI, wiggles toes spontaneously, 2+ DP pulse and cap refill <2 seconds. Reports decreased sensation in R toes and unknown when that started. Will continue to follow ASSESSMENT/PLAN Alethea Lei is a 54 year old year old male who is now status post R tibial intramedullary nail fixation. He is resting comfortably in bed and appears to be recovering well. 1. Nonweightbearing, right lower extremity 2. DVT prophylaxis - continue lovenox 3. Postoperative antibiotics including 10 days of oral doxycycline 4. [facility] [employer] SystemTransBoutique Windowation Interface Message Text11/15/24 0200 Vital Signs Temperature 99.9 ???F (37.7 ???C) Temperature Source Axillary Heart Rate 96 Respiratory Rate 16 BP 162/86 MAP (mmHg) 104 mmHg BP Position Semi-Fowlers BP Location right arm SpO2 96 % MD Becerra notified of BP. No new orders received.NormalKick Sport System Anesthesia Postprocedure Evaluationon [id number] NETpeasation Interface Message TextAnesthesia Postoperative Assessment: Vital Signs (most recent): BP 184/115 Pulse 87 Temp 36.2 ???C (97.2 ???F) (Temporal) Resp 18 SpO2 100% Anesthesia Post Evaluation Level of consciousness: arousable and awake Post-procedure exam normal. Body temperature, hydration status, PONV and pain evaluated and addressed. Pain management: adequate Hydration status: normal PONV:No nausea/vomiting reported Cardiopulmonary status stable Respiratory status: acceptable Cardiovascular status: acceptable Comments: Patient had delayed emergence. Breathing spontaneously with nasal airway but not responding to verbal commands or touch. Limited response to painful stimuli, as patient furs eyebrows. Horizontal nystagmus noted. After 1-2 hours, patient would open eyes to touch and painful stimulation, still remains drowsy. ANESTHESIA NOTABLE EVENTS: No notable events documented.NormalOhio [facility] [employer] SystemAnesthesia Preprocedure Evaluationon [id number] Authentication Interface Message TextASA: 3 No history of anesthetic complications Past Medical History and Review of Systems Pulmonary - negative ROS Dental Endo (+) hypothyroidism Neuro/Psych (+) depression, seizures Comment: OCD Autism, unable to get consent from her Cardiovascular - negative ROS (+) Surgical risk: low; Cardiac condition: minor ECG reviewed Comment: Comment: ECHO: 09/2020 CONCLUSION: 1. Normal ventricular function. 2. Moderate concentric hypertrophy. 3. No significant valvular dysfunction. 4. Normal right sided pressures. 5. No evidence of intracardiac shunt by agitated saline study. No previous ECG available GI/Hepatic/Renal (+) renal disease CRI Comment: Urinary retention Heme/Other - negative ROS Other ROS: 54 year old male with PMH significant for autism, seizure disorder, OCD, CKD-stage 3, depression, hypothyroidism, BPH, urinary retention, and history of frequent falls presented to OSH ED s/p fall. He was reported to be walking with a caregiver in the group facility in which he resides when they heard a snap in his leg and he fell to the ground. Unknown headstrike but no LOC reported. He was noted to have obvious deformity to the RLE. Imaging completed at OSH revealed a proximal fibula fx as well as distal tib/fib fxs with small wound over the lateral aspect of the lower leg, concerning for open fracture. Patient was given ancef and RLE was splinted and patient was transferred to [facility] for further evaluation and management. Physical Exam Airway Mallampati: II TM distance: Adequate Micrognathia: Not present Jaw opening: Adequate Neck flexion: Adequate Dental PE (+) intact Pulmonary - pulmonary exam normal Comment: Chest clear to auscultation bilaterally Cardiovascular - cardiovascular exam normal Comment: RRR with S1S2; no murmurs, gallops, or rubs Neuro - neurological exam normal Comment: Awake, alert, oriented, No motor deficits and sensation grossly intact Plan Anesthesia plan: general; (ETT) Anesthesia risks / alternatives discussed pre-op Questions answered / anesthesia plan accepted Past medical history, surgical history, allergies, and medications reviewed. Pertinent laboratory tests, EKG, imaging, and consults reviewed and I have personally seen and evaluated the patient, repeating narayanan portions of the history and physical examination. Attestation: Anesthesia options were discussed with the patient and/or legal player services representative. The risks, benefits and alternatives were reviewed. Questions regarding anesthesia were answered. Patient and/or legal player services representative knows such anesthetics and procedures may be performed by Resident physicians, Certified Anesthesiologist Assistants, or Certified Nurse Anesthetists under the supervision of a physician. The patient /or the patient's legal player services representative agree with the plan for anesthesia. Comment: Consent received from mother, Marlin Lei [facility] HospitalAnest[facility] Transfer Of Josetteon 11-14-2024 Manager [employer] Authentication Interface Message TextPatient taken to PACU. Patient was drowsy, comfortable, and stable on arrival. Anesthesia Transfer of Care Note Past Medical History: Medical History[1] Sleep Apnea/Positive STOP-BANG: No Problem List: Problem List[2] Past Surgical History: Review of patient's past surgical history indicates: DENTAL RESTORATIONS (01/25/2021) Procedure: DENTAL RESTORATIONS; Surgeon: Mina Solorzano DDS; Location: [facility] Surgery [place]; Service: Dental EXCISION, LESION, ORAL (01/25/2021) Procedure: EXCISION, LESION, ORAL; Surgeon: Mina Solorzano DDS; Location: [facility] Surgery [place]; Service: Dental Allergies: Aripiprazole, Pertussis vaccine, and Pertussis vaccines Basic Operating Room Facts: Surgeon(s): Jose Truong MD Levine, Ari D., MD Shine, Samuel, DO Anesthesiologist: Owen Sanders MD CAA: Crystal Marinelli CAA SUPERVISOR BLUEPRINTING AND PHOTOCOPY: Sendy Wayne APRN-CRNA Anesthesia Student: Moses Major REDUCTION, OPEN, TIBIA, INTRAMEDULLARY MARKOS (Right: Leg Lower) REDUCTION, OPEN, TIBIA (Right: Leg Lower) Intraoperative Events: No acute event ASA: 3 EBL: Not documented Urine 155 mL Lactated Ringers and NaCl 0.9%: Fluid Totals (Filter: LR and NaCl 0.9% Medications Shown) Medication Calculated Total Lactated Ringers 900 mL / 1 bag Cell Saver: Not documented Blood Volume Values: Blood Products None MTP Blood: MTP PRBC: Not documented MTP FFP: Not documented MTP PLT: Not documented MTP Cryo: Not documented MTP Whole Blood: Not documented Current Vasoactive Medications: {Vasoactive Medications: None Lines, Drains, Airways Peripheral IV Access: 11/13/24 0907 20 gauge Anterior;Left Wrist (Active) Site Assessment Dressing intact;Edema;Erythema 11/14/24 0850 Infusion Status Port #1 Other (comment) 11/14/24 0850 Peripheral IV Access: Right Forearm (Active) Site Assessment Other (comment);Edema 11/14/24 0852 Infusion Status Port #1 Patent 11/14/24 0852 Peripheral IV Access: 11/14/24 0849 20 gauge x 1.88 inch Mid;Anterior;Left Forearm (Active) Airway Insertion Details [REMOVED] Advanced Airway: ETT, Oral;Cuffed #8 (Removed) 11/14/24 0754 Pre-Oxygenation/ Induction: Mask Rapid Sequence Induction?: Mask Ventilation: Easy Blade Type: Mac Blade Size: 4 Visualization: Grade 1 Airway Type: ETT, Oral;Cuffed Airway Size: #8 Post Insertion Assessment: Confirmation: Equal bilateral breath sounds, CO2 confirmed # Attempts >1: Special Equipment: Present on Admission?: Previously Removed / Not Present: Removal Reason: Not Removed at Discharge: Removed 11/14/24 1046 Location (cm) 24 11/14/24 0754 Measured from: Upper Lip 11/14/24 0754 Secured via: Taped 11/14/24 0754 Site Assessment WNL 11/14/24 0754 All non-working IVs have been removed: Yes Laboratory Data: CBC (last 3 years, up to 8 values) 11/14/2024 11/13/2024 6:29 AM 9:04 AM WBC 6.7 13.0 RBC 3.33 3.83 Hgb 11.4 12.7 Hct 32.6 38.0 MCV 98 99 RDW 13.2 13.7 Plt 183 157 BMP (last 3 years, up to 8 values) 11/14/2024 11/13/2024 6:29 AM 9:04 AM Na 144 143 K 4.4 4.6 Cl 109 110 CO2 27 24 Gap 12 14 Glu 105 130 BUN 28 30 Cr 1.81 2.03 Ca 8.7 8.9 eGFR 43 38 Basic Metabolic Panel 11/14/2024 11/13/2024 6:29 AM 9:04 AM Na 144 143 K 4.4 4.6 Cl 109 110 CO2 27 24 Gap 12 14 Glu 105 130 BUN 28 30 Cr 1.81 2.03 Ca 8.7 8.9 Mg 2.1 -- PO4 4.0 -- INR (no units) Date Value 11/14/2024 1.20 (H) 11/13/2024 1.12 (H) No result for BNP LFT's (last 3 years, up to 8 values) No lab values to display. Arterial Blood Gases None Hand off Completed: Yes 1. The patient was identified. 2. Pertinent medical history was relayed. 3. A brief discussion was had about any pertinent surgical/ procedural issues. 4. Intraoperative/ anesthetic management issue and concerns were discussed. 5. Plans for the early post-operative period relayed. 6. An opportunity for questions and acknowledgment of understanding of the report was received. Sendy Tone, CREDIT ADMINISTRATION MANAGER-SUPERVISOR BLUEPRINTING AND PHOTOCOPY [1] Past Medical History: Diagnosis Date Anemia OSH H + P 01/08/2021 CKD (chronic kidney disease), stage I OSH H + P 01/08/2021 Dental caries Moderate intellectual disability OSH H + P 01/08/2021 Tuberous sclerosis (HCC) OSH H + P 01/08/2021 [2] Patient Active Problem List Diagnosis Code Dental caries K02.9 Displ spiral fx shaft of r tibia, init for opn fx type I/2 S82.241B Type I or II open fracture of right tibia and fibula, initial encounter S82.201B, S82.401BNormalThe [facility] [place] [facility] SystemBASIC METABOLIC PANELon 11-14-2024 Anion gap [Moles/Vol]12 mmol/QBvivjp38-98Llz [facility] [place] [facility] SystemComment on above: Performed By: #### PHOBlair CH8, MG #### [facility] [address] [place] [address], [address]Qgkldmp [Mass/Vol]8.7 mg/dLNormal8.6-10.3The [facility] HospitalHealth SystemComment on above:Performed By: #### PHOS, CH8, MG #### [facility] [address] [place] [address], [address]Gbmjizht [Moles/Vol]109 mmol/SOchb04-065Jfe [facility] [place] [facility] SystemComment on above:Performed By: #### PHOS, CH8, MG #### [facility] [address] [place] [address], [address]EI1 [Moles/Vol]27 mmol/YVpbrzf02-81Nxq [facility] Hospital[facility] SystemComment on above:Performed By: #### PHOS, CH8, MG #### [facility] [address] [place], [address]Rwojxprzfd [Mass/Vol]1.81 mg/dLHigh0.70-1.30The [facility] HospitalHealth SystemComment on above:Performed By: #### PHOS, CH8, MG #### [facility] [address] [place] [address], [address]MWHBIVIAZ GFR (CKD-EPI)43 mL/min/1.73sqmLow>=60The [facility] [place] [facility] SystemComment on above:Result Comment: 2020 CKD EPI Equation using Creatinine without Race Comment: Estimated glomerular filtration rate (eGFR) is calculated without [...] Diseases 2021;79(2):268-88.e1. 2. N Engl J Med 2020 Vol. 385 Issue 19 Pages 2978-6754Performed By: #### BING CLEANING MG #### [facility] [address] [place] [address], [address]Fthajpx [Mass/Vol]105 mg/gHJqmngo44-977Ycv [facility] [place] [facility] SystemComment on above:Performed By: #### BING CLEANING, MG #### [facility] [address] [place] [address], [address]Lummjufms [Moles/Vol]4.4 mmol/LNormal3.5-5.0The [facility] [place] [facility] SystemComment on above:Performed By: #### BING CLEANING, MG #### [facility] [address] [place] [address], [address]Fcfkjr [Moles/Vol]144 mmol/KZbfnfu449-158Gcw [facility] [place] [facility] SystemComment on above:Performed By: #### BING CLEANING, MG #### [facility] [address] [place] [address], [address]Uabo nitrogen [Mass/Vol]28 mg/dLHigh7-25The [facility] [place] [facility] SystemComment on above:Performed By: #### BING CLEANING, MG #### [facility] [address] [place] [address], [address]Mntkv Attestationon [id number] Authentication Interface Message TextBlood Attestation: ATTESTATION OF INFORMED CONSENT FOR BLOOD: The transfusion of blood and/or blood components were discussed with the patient and/or legal player services representative. The risks, benefits and alternatives were reviewed. Questions regarding blood transfusions were answered. The patient /or the patient's legal player services representative agree with the plan for transfusion of blood and/or blood components.NormalThe [facility] [place] [facility] SystemBrief Operative Noteon [id number] Authentication Interface Message TextBrief Operative Note MAIN OR 08 Alethea Lei 54 year old male Surgical Contact Serial Number: [id number] Preoperative Diagnosis: Pre-op Diagnosis * Displ spiral fx shaft of r tibia, init for opn fx type I/2 [S82.241B] Postoperative Diagnosis: * Displ spiral fx shaft of r tibia, init for opn fx type I/2 [S82.241B] Procedures: RIGHT tibia IMN, RIGHT ankle NEGRA Surgeon(s): Surgeon(s): Heriberto Hdz DO Levine, Ari D., MD Staff: Scrub: Zina Xiong RN Food Safety Field Specialist Nurse: Saskia Jesus RN; Yary Arana RN Bush Regenerator: Ana Maria Griffin Card Grinder: Jethro Ziegler MD Anesthesia: General Anesthesiologist: Owen Sanders MD CAA: Crystal Marinelli CAA SUPERVISOR BLUEPRINTING AND PHOTOCOPY: Sendy Wayne APRN-JESSICA Anesthesia Student: Moses Major Specimen(s): * No specimens in log * Estimated Blood Loss: 50cc Lines/Drains: Peripheral IV Access: 11/13/24 0907 20 gauge Anterior;Left Wrist (Active) Site Assessment Dressing intact;Edema;Erythema 11/14/24 0850 Infusion Status Port #1 Other (comment) 11/14/24 0850 Peripheral IV Access: Right Forearm (Active) Site Assessment Other (comment);Edema 11/14/24 0852 Infusion Status Port #1 Patent 11/14/24 0852 Peripheral IV Access: 11/14/24 0849 20 gauge x 1.88 inch Mid;Anterior;Left Forearm (Active) Temporarily Retained Foreign Object: No Location: N/a Object: N/a Anticipated removal date: N/a Findings: Ortho RIGHT tibia fx Complications: None Status at end of surgery: Stable Activity: NWB LLE in [place] splint at all times Surgical wound class: Yes, wound was clean contaminated. Patient Class: Inpatient. Is this a patient scheduled as an outpatient that needs to be admitted as an inpatient? Yes, Clinical indication for admission: Other Sp major orthopaedic surgery Dr. Truong was present in the OR for the critical portion of the procedure and procedure sign-out. Signed by Jethro Ziegler MD 11/14/2024 10:31 AMNormalThe [facility] Centerro[facility] System COMPLETE BLOOD COUNTon [id number] distribution width (RBC) [Ratio] 13.2 %Xfzssp91.5-14.5The [facility] CenterroHealth SystemComment on above:Performed By: #### PHOBlair CH8, MG #### [facility] [address] [place] [address], [address]Rfvdglfkng (Bld) [Volume fraction]32.6 %Low41.0-53.0The [facility] CenterroHealth SystemComment on above:Performed By: #### PHOBlair CH8, MG #### [facility] [address] [place] [address], [address]Aldewdnvsa (Bld) [Mass/Vol]11.4 g/dLLow13.9-16.3The [facility] CenterroHealth SystemComment on above:Performed By: #### PHOBlair CH8, MG #### [facility] [address] [place] [address], [address]IRJ (RBC) [Entitic mass]34.3 ebRmki04.0-34.0The [facility] CenterroHealth SystemComment on above:Performed By: #### PHOS, CH8, MG #### [facility] [address] [place] [address], [address]LMLU (RBC) [Mass/Vol]35.0 g/kVCydkmr11.0-35.9The [facility] CenterroHealth SystemComment on above:Performed By: #### PHOS, CH8, MG #### [facility] [address] [place] [address], [address]BNR (RBC) [Entitic vol]98 pYJiuger65-566Qxf [facility] Centerro[facility] SystemComment on above:Performed By: #### PHOS, CH8, MG #### [facility] [address] [place] [address], [address]Fthihojw mean volume (Bld) [Entitic vol]8.4 fLNormal 7.5-11.2The [facility] HospitalHealth SystemComment on above:Performed By: #### BING CLEANING, MG #### [facility] [address] [place], [address]Jlackdtkx (Bld) [#/Vol]183 10*3/zPJnaymk338-468Ydt [facility] Centerro[facility] SystemComment on above:Performed By: #### HERMILA, POLA8, MG #### [facility] [address] [place], [address]NDA (Bld) [#/Vol]3.33 10*6/uLLow4.50-5.90The [facility] [place] [facility] SystemComment on above:Performed By: #### BING CLEANING, MG #### [facility] [address] [place] [address], [address]MFI (Bld) [#/Vol]6.7 10*3/uLNormal4.5-11.5The [facility] [place] [facility] SystemComment on above:Performed By: #### BING CLEANING, MG #### [facility] [address] [place], [address]Iijzjqbyvx [id number] Authentication Interface Message [facility] CON[facility] Alethea Lei [id number] Reason for Consultation: difficult martini History (HPI) Alethea Lei is a 54 year old male with PMH of autism, seizure disorder, OCD, CKD-stage 3, depression, hypothyroidism, BPH, urinary retention, and history of frequent falls presenting as a trauma patient. CT demonstrated bladder with >3L. Primary team could not place martini. Urology consulted for martini placement. Mother called on the phone. States he has had retention in the past. Had TURP at [facility] within the last 3 months. Medical History[1] Surgical History[2] Medications: Prescriptions Prior to Admission[3] Prior to Admission Medications Prescriptions Last Dose Informant Patient Reported? Taking? ALENDRONATE-CHOLECALCIFEROL ORAL Yes No Sig: Take by mouth. Patient not taking: Reported on 11/13/2024 Aspirin (ASPIR-81 ORAL) Yes No Sig: Take by mouth. Patient not taking: Reported on 11/13/2024 Calcium Carb-Cholecalciferol (Oyster Shell Calcium w/D) 500-5 MG-MCG TABS Yes Yes Sig: Take 1 Tablet by mouth 2 times daily. Dentifrices (BIOTENE DRY MOUTH DENTAL) Yes No Sig: by Dental route. Patient not taking: Reported on 11/13/2024 Linzess 145 MCG CAPS capsule Yes Yes Sig: Take 145 mcg by mouth daily. Multiple Vitamin (DAILY FELI ORAL) Yes Yes Sig: Take 1 Tablet by mouth daily. Multiple Vitamin (DAILY FELI ORAL) Yes No Sig: Take 1 Tablet by mouth daily. Patient not taking: Reported on 11/13/2024 OXcarbazepine (TRILEPTAL ORAL) Yes No Sig: Take by mouth. Patient not taking: Reported on 11/13/2024 amLODIPine (NORVASC) 10 MG tablet Yes Yes Sig: Take 10 mg by mouth daily. atorvastatin (LIPITOR) 40 mg tablet Yes Yes Sig: Take 40 mg by mouth daily. benztropine (COGENTIN) 1 MG tablet Yes Yes Sig: Take 1 mg by mouth 2 times daily. Patient taking differently: Take 1 mg by mouth 3 times daily. cloNIDine (CATAPRES) 0.2 MG tablet Yes Yes Sig: Take 0.2 mg by mouth 3 times a day. cloNIDine HCl (CATAPRES ORAL) Yes No Sig: Take by mouth. Patient not taking: Reported on 11/13/2024 haloperidol (HALDOL) 10 MG tablet Yes Yes Sig: Take 10 mg by mouth every evening. haloperidol (HALDOL) 5 MG tablet Yes Yes Sig: Take 15 mg by mouth 2 times a day. levETIRAcetam (KEPPRA) 500 MG tablet Yes Yes Sig: Take 500 mg by mouth 2 times daily. levothyroxine (SYNTHROID) 137 MCG tablet Yes Yes Sig: Take 137 mcg by mouth daily. nebivolol (BYSTOLIC) 5 MG TABS tablet Yes Yes Sig: Take 5 mg by mouth daily. oxcarbazepine (TRILEPTAL) 600 MG tablet Yes Yes Sig: Take 600 mg by mouth 2 times daily. paroxetine (PAXIL) 40 MG tablet Yes Yes Sig: Take 40 mg by mouth daily. potassium chloride SA (K-DUR) 10 MEQ controlled release tablet Yes No Sig: Take 10 mEq by mouth daily. Patient not taking: Reported on 11/13/2024 senna (SENOKOT) 8.6 MG tablet Yes Yes Sig: Take 1 Tablet by mouth at bedtime. tamsulosin (FLOMAX) 0.4 MG capsule Yes Yes Sig: Take 0.4 mg by mouth daily. yfqukpv-drbmagdklv-ypxeyutco pertussis (BOOSTRIX) 5-2.5-18.5 LF-MCG/0.5 injection Yes No Sig: Inject 0.5 mL into the muscle. Patient not taking: Reported on 11/13/2024 Facility-Administered Medications: None Allergies: Aripiprazole, Pertussis vaccine, and Pertussis vaccines Family History: family history is not on file. Review of Systems (Bold is Positive + ) Const: Fevers - Chills - WeightLoss - Sweating - Fatigue - MedChanges HEENT: Headaches - VisionChanges Cardiac: ChestPain - Palpitations Pulm: SOB - Cough (Productive) - Orthopnea - PND GI: Nausea - Vomiting - AbdPain - Diarrhea - Constipation - StoolChanges : Dysuria - Frequency - ColorChanges MSK: Pain - Swelling - Weakness Skin: Rash - Itching - Lumps/Bumps - Wounds Neuro: Numbness - Tingling - Dizziness - Falls Heme: Bleeding Physical Exam BP 131/88 Pulse 78 Temp 98.4 ???F (36.9 ???C) (Oral) Resp 18 SpO2 94% General: No acute distress, awake Cardiac: Non-tachycardic Pulmonary: Non-labored breathing. Symmetric chest rise. Abdomen: Soft, non-tender, non-distended. No peritonitis : circumcised Extremities: Moving all extremities spontaneously Skin: Warm, moist Neuro: AOx3 Labs: 13.0 12.7 / 157 / 38.0 CBC: 11/13/2024: 9:04 AM 143 110 30 / 130 4.6 24 2.03 BMP: 11/13/2024: 9:04 AM Studies: XR CLAVICLE RIGHT 2 VIEWS EXAMINATION: XR CLAVICLE RIGHT 2 VIEWSPRO/RT 11/13/2024 09:25 PM CLINICAL HISTORY: fracture ASSOCIATED DIAGNOSIS: ORDERING PROVIDER: INGA SHELTON TECHNOLOGISTS NOTE: COMPARISON: None IMPRESSION: Displaced fracture of right distal clavicle is noted. Distal fragment is inferior in relationship to the main proximal fragment which is superior and laterally displaced. Right clavicle MACRO: None CT TIBIA RIGHT W/O CONTRAST EXAMINATION: CT TIBIA RIGHT W/O CONTRASTPRO/RT 11/13/2024 02:21 PM CLINICAL HISTORY: post splint ASSOCIATED DIAGNOSIS: post splint ORDERING PROVIDER: INGA SHELTON TECHNOLOGISTS NOTE: (more content not included)...NormalThe [employer] System Manager Commercial Sales Authentication Interface Message TextOrthopaedic Surgery Consult H AND P Requesting Provider / Service: Emergency department CC: Right leg pain following fall HPI: 54M (remote ORIF R ankle in rao Intellectual disability, tuberous sclerosis, CKD 3, hypothyroidism, ADHD, OCD, depression, autistic spectrum disorder) transfer from [facility] with R distal third tibia shaft fx after [facility]F at [facility]. Also with R closed NVI clavicle fx, likely subacture T3,T8 compression fx impending punctate wound over anterolateral ankle Patient ambulates without aid at baseline. Per mother does have a history of multiple falls at his [facility] PMH: Medical History[1] Surgical History[2] Social History[3] Allergies[4] Current Medications[5] Family History: non-contributory Review of Systems: ROS No pertinent symptoms related to systems other than those stated above PE: BP 164/82 Pulse 80 Temp 98.4 ???F (36.9 ???C) (Oral) Resp 18 SpO2 99% GEN: AaOx4, NAD HEENT: normocephalic atraumatic, EOMI, MMM, pupils equal and round PSYCH: appropriate mood and affect RESP: nonlabored breathing on RA CARDIAC: Extremities WWP, RRR to peripheral palpation NEURO: CN 2-12 grossly intact R lower extremity: - Skin intact impending open wound over the anterolateral ankle without blisters - Tender over right distal paz - Fires EHL/DF/PF - Sensation intact to light touch in sural, saphenous, superficial/deep peroneal, tibial nerve distributions - 2+ DP pulse, < 2 seconds capillary refill Right Upper Extremity: -Skin intact. -Tender at site of injury with painful ROM. -Motor intact in axillary/AIN/PIN/ulnar distributions -SILT axillary/radial/median/ulnar distributions -Hand warm, well perfused -Palpable radial pulse, cap refill brisk -Compartments soft and compressible A complete secondary exam was performed, and no injuries were identified other than those stated above. Labs: CBC/PT/INR 11/13/2024 9:04 AM WBC 13.0 RBC 3.83 Hgb 12.7 Hct 38.0 MCV 99 RDW 13.7 Plt 157 aPTT <21 INR 1.12 Basic Metabolic Panel 11/13/2024 9:04 AM Na 143 K 4.6 Cl 110 CO2 24 Gap 14 Glu 130 BUN 30 Cr 2.03 Ca 8.9 Cardiac None Imaging: XR CT show spiral distal tibia shaft fracture with associated posterior malleolar. A/P: 54M (remote ORIF R ankle in rao Intellectual disability, tuberous sclerosis, CKD 3, hypothyroidism, ADHD, OCD, depression, autistic spectrum disorder) transfer from [facility] with R distal third tibia shaft fx after [facility]F at [facility]. Also with R closed NVI clavicle fx, likely subacture T3,T8 compression fx impending punctate wound over anterolateral ankle, NVI. Ancef, tetanus. Bedside irrigation, LLS. C/p for OR 11/14 Rosette Epperson - Admit to Trauma Surgery service - Consented for operative fixation of left tibia, hardware of hardware right ankle - Posted for surgery on 11/14 - Trauma team please document clearance for OR when appropriate - Weightbearing: Nonweightbearing right lower extremity nonweightbearing and sling right upper extremity - Antibiotics: none preop, order placed for perioperative antibiotics - DVT ppx: per primary, request holding in anticipation for OR tomorrow - Pain control per primary - Diet: NPO at midnight for OR - Dispo: Pending operative course Please do not hesitate to page with additional questions or concerns Splint care instructions were reviewed with the patient. They know they need to keep the splint clean and dry and must not put anything inside the splint. If the splint is itchy, they may use a hair raw stock drier tender on cool to blow air down the splint. They know to avoid any activities that would put the patient at risk of a hard fall as well as any high impact activities. Risks, benefits, and alternatives to surgical treatment were discussed with the patient and family. Risks include but are not limited to infection, blood loss, blood clots, damage to neurovascular and musculoskeletal structures, malunion, nonunion, stiffness, wound healing complications, and catastrophic anesthesia complications. Informed consent was obtained, all questions were answered, and they agreed to proceed. This consult was seen and evaluated within 30 minutes of notification. PLEASE INCLUDE ALL MEMBERS OF RESPECTIVE TEAM ON EPIC CHAT Inga Shelton MD Orthopedic Surgery PGY-2 [facility] Orthopaedic Trauma Team Elective Prefer communication through Epic Chat Between 5pm-7am, weekends, and holidays, or for urgent/emergent issues, please page ortho consult pager at [phone]. For questions/issues: Patient will be followed by the ORTHO TEAM B. Please message: Ortho Team A: Javier Serrano PGY2 Celso Liu PGY2 Ortho Team B: Jethro Ziegler PGY3 Heriberto Morgan PGY1 Ortho Elective Team: Dada Black PGY3 Inga Shelton PGY2 Hand: Javier Marquez PGY4 Deonte Owens PGY4 [1] Past Medical History: Diagnosis Date Anemia (more content not included)...NormalThe [facility] SystemMAGNESIUMon 11-14-2024 Magnesium [Mass/Vol]2.1 mg/dLNormal1.9-2.7The [facility] [place] [facility] SystemComment on above:Performed By: #### PHOS, CH8, MG #### [facility] [address] [place] [address], [id number] Noteon [id number] Authentication Interface Message TextName: Alethea Lei : 1970 CSN: [id number] Date of Surgery: 11/14/2024 Preoperative Diagnosis: 1. Right type 1 open comminuted distal 3rd tibia fracture Postoperative Diagnosis: Same Procedure: 1. Intramedullary nail fixation, right tibia fracture 2. Removal of deep implant, right tibia Attending Surgeon: Jose Truong MD Scrub: Zina Xiong RN Food Safety Field Specialist Nurse: Saskia Jesus RN; Yary Arana RN Bush Regenerator: Ana Maria Griffin Implanted components: Implant Name Type Inv. Item Serial No. Batch Blender Lot No. LRB No. Used Action LOW PROF LCKNG SCR 50 34 XL25 S [id number] Screw Synthes [id number] Right 1 Implanted LOW PROF LCKNG SCR 50 34 XL25 S [id number] Screw Synthes [id number] Right 1 Implanted CAP END 15MM STRL EA1 04.045.865S - [id number] Connector CAP END 15MM STRL EA1 .045.865S [employer] [id number] Right 1 Implanted NAIL 10MM 330MM TIB TN ADV IM EA1 04.043.230S - [id number] Nail Rods AND Pins NAIL 10MM 330MM TIB TN ADV IM EA1 04.043.230S [employer] [id number] Right 1 Implanted LOW PROF LCKNG SCR 50 50 XL25 S [id number] Screw Synthes [id number] Right 1 Implanted LOW PROF LCKNG SCR 50 44 XL25 S [id number] Screw [employer]ynthe[employer] [id number] Right 1 Implanted LOCKING SCREW FOR IM NAIL XL25 STERILE 5MM X 36MM Screw [employer]ynthe[employer] [id number] Right 1 Implanted DESCRIPTION OF PROCEDURE: Patient is a 54-year-old male who sustained a fall from standing and suffered the above-noted injury. He had previously undergone open reduction internal fixation of a right distal fibular fracture syndesmotic injury. Informed consent was obtained detailing the risks benefits and alternatives of the above-noted procedures. Right leg was marked as the operative site. The patient was brought to the operating, induced under general anesthetic given a dose of preoperative antibiotics. Right lower extremity was then isolated prepped and draped in a standard fashion. Linear incision was created just proximal to the superior pole of the patella through the skin and subcutaneous tissue. The quadriceps tendon was sharply split in line with the skin incision and a curved Duke scissor was used to enter the suprapatellar pouch. The soft tissue sleeve was placed through this opening and a guide pin was placed in the appropriate starting position just medial to the lateral tibial spine on AP view and off the anterior crest of the tibia on the lateral view. This guide pin was driven to a central position of the proximal tibia. The opening Reamer was passed over the guide pin in the proximal tibia was opened. The syndesmotic screw and most proximal screw of the fibular plate were removed percutaneously. Given the very minimal open wound caused by in inside out disruption of the soft tissue I elected not to perform a formal irrigation and debridement given the lack of contamination and limited benefit of this procedure. We will plan to keep the patient in the prolonged course of oral antibiotics to mitigate any postoperative infection. Pointed reduction clamps were placed percutaneously to affect a reduction of the tibia fracture. The bead tip guidewire was then advanced to the central position in the distal tibia. The length of the anticipated tibial nail was measured to be 330 mm. Sequential reaming was performed up to 11.5 mm a 10 mm x 330 mm tibial nail was opened and assembled on the back table then impacted over the guidewire. Distal interlocking was performed using a perfect circles technique and the interlocking guide was used to place 2 interlocking bolts distally. Final fluoroscopic imaging demonstrated appropriate reduction of the patient's tibia fracture and safe position of the hardware. All wounds were thoroughly irrigated and closed in layered fashion using Vicryl and nylon sutures. A soft dressing was placed followed by a [place] splint. There were no operative complications POSTOPERATIVE PLAN: 1. Nonweightbearing, right lower extremity 2. DVT prophylaxis 3. Postoperative antibiotics including 10 days of oral doxycycline 4. Follow up in 2 weeksM[facility] ClinicOR Nursingon 11-14-2024 Manager Commercial Sales Authentication Interface Message Text2 screws removed during operation by Dr. Truong at 0900.NormalThe [facility] [place] [facility] SystemPARTIAL THROMBOPLASTIN TIMEon [id number] Coag (Bld) [Time]31 hZfwccv14-27Ahg [facility] [place] [facility] SystemComment on above:Performed By: #### BING CLEANING, MG #### [facility] [address] [place] [address], [id number] [phone] [Mass/Vol]4.0 mg/dL Normal2.5-5.0The [facility] [place] [facility] SystemComment on above:Performed By: ###BING BAILON, MG #### [facility] [address] [place] [address], [address]VFNDEHBKIVN TIME AND INRon 05-51-8662CZF Coag (PPP) [Relative time]1.20 {INR}High0.90-1.10The [facility] [place] [facility] SystemComment on above: Performed By: #### BING CLEANING, MG #### [facility] [address] [place] [address], [phone] Coag (PPP) [Time]13.4 sHigh9.7-12.9The [facility] [place] [facility] SystemComment on above:Performed By: #### PHOS, CH8, MG #### [facility] [address] [place] [address], [phone] Noteson [phone] Authentication Interface Message Text GENERAL INFORMATION TRAUMA FLOOR- DAILY PROGRESS NOTE Patient Name: Alethea Lei Admission Date: 11/13/2024 Patient seen and examined on 11/14/24 INTERVAL HISTORY/EVENTS Background: Alethea Lei is a 54 year old male with PMH significant for autism, seizure disorder, OCD, CKD-stage 3, depression, hypothyroidism, BPH, urinary retention, and history of frequent falls presented to OSH ED s/p fall. Unknown headstrike, unknown LOC. Transferred to [facility] due to findings of open tib/fib fx on the R. Trauma work up revealed R clavicle fx, T3 vertebral body fx, T8 compression deformity, proximal R fibula fx and open R distal tib/fib fx. Ortho and Ortho Spine were consulted. Admitted under the Trauma service for planned operative intervention with Ortho. Hospital Course: 11/13/2024: Presented to ED s/p ground level fall. Initially taken to OSH and found to have open distal tib/fib on the R. Transferred to [facility]. Ortho, Ortho Spine consulted. Admitted to the [facility] but boarding in ED due to bed availability. Difficult martini placement, Urology consulted. 24 Hour Events: Patient known to me from Trauma bay evaluation yesterday. Overnight urology was consulted due to difficulty placing martini catheter by nursing and trauma residents. Martini eventually was able to be placed. To OR early this AM with Ortho. Patient remained in OR/PACU throughout the entirety of my shift. Vital signs reviewed. Afebrile. HR has been acceptable with no tachycardia. BPs have been acceptable with no hypotension. Acceptable O2 sats on room air. Labs reviewed. No leukocytosis. H and H acceptable. Platelets acceptable. BMP with acceptable electrolytes and improving SHANON. Intake: 1000 mL PO: 0 mL IV: 1000 mL Output: 700 mL UOP: 700 mL BM: 0 occurrences. Tmax: 36.9 PHYSICAL EXAM Vital Signs: Vital sign ranges over the past 24 hours (retrieved 11/14/2024 at 8:22 AM): Tmax (24 hours): 98.5 ???F (36.9 ???C) Pulse Av.5 Min: 65 Max: 81 Systolic (24hrs), Av , Min:116 , Max:194 Diastolic (24hrs), Av, Min:73, Max:96 MAP (mmHg) Av.6 mmHg Min: 88 mmHg Max: 125 mmHg Resp Av.3 Min: 13 Max: 23 SpO2 Av.5 % Min: 92 % Max: 100 % PHYSICAL EXAM No physical examination completed as patient in OR/PACU throughout the entirety of my shift. LABORATORY RESULTS (LAST 24 HOURS) CBC/PT/INR 11/14/2024 11/13/2024 6:29 AM 9:04 AM WBC 6.7 13.0 RBC 3.33 3.83 Hgb 11.4 12.7 Hct 32.6 38.0 MCV 98 99 RDW 13.2 13.7 Plt 183 157 aPTT 31 <21 INR 1.20 1.12 Basic Metabolic Panel 11/14/2024 11/13/2024 6:29 AM 9:04 AM Na 144 143 K 4.4 4.6 Cl 109 110 CO2 27 24 Gap 12 14 Glu 105 130 BUN 28 30 Cr 1.81 2.03 Ca 8.7 8.9 Mg 2.1 -- PO4 4.0 -- Fingerstick Glucose (last 72 hours) None IMAGING RESULTS (PERSONALLY REVIEWED) All admit imaging and follow up imaging reviewed. No new imaging today. ASSESSMENT AND PLAN Diagnoses: 1. S/p mechanical fall on 11/13/2024 2. R clavicle fx (Ortho, non-op) 3. T3 vertebral body fx (Ortho Spine, non-op) 4. T8 compression deformity (Ortho Spine, non-op) 5. Proximal R fibula fx (Ortho) 6. Open R distal tib/fib fx (Ortho, s/p R tibia IMN and R ankle removal of hardware on 11/14) 7. Acute pain due to trauma 8. Acute post op pain 9. Urinary retention 10. SHANON 11. Leukocytosis (resolved) 12. 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 Plan: Neurological: Acute pain due to trauma. History of autism, seizure disorder. - Continue acetaminophen 1000mg q8h scheduled - Continue robaxin 750mg Q8h scheduled - Continue lidoderm patch daily - Continue oxycodone 2.5/5mg q4h PRN moderate/severe pain - Continue hydromorphone 0.5mg IV q4h PRN for breakthrough pain - Will need to evaluate patient post op and assess for need for changes to current pain regimen - Continue home benztropin 1mg TID - Continue home Haldol 15mg BID - Continue home Haldol 10mg QPM - Continue home keppra 500mg BID - Continue home oxcarbazepine 600mg BID - Continue home paroxetine 40mg daily Cardiovascular: No acute ca (more content not included)...NormalThe [facility] SystemXR KNEE RIGHT AP+LAT 2 VIEWSon [id number] KNEE RIGHT AP+LAT 2 VIEWS Radiology Interpretation EXAMINATION: XR KNEE RT ANY 4 OR MORE VIEWSPRO/RT 11/13/2024 10:09 AM CLINICAL HISTORY: fracture ASSOCIATED DIAGNOSIS: ORDERING PROVIDER: INGA SHELTON TECHNOLOGISTS NOTE: COMPARISON: XRAY RIGHT LOWER EXTREMITY IMG IMPORT(KEYUR) 11/13/2024 5:53 AM IMPRESSION: Acute, comminuted and displaced fracture of the right proximal fibula without definite intra-articular extension. The distal femur and tibial plateau appear intact. No joint effusion is seen. The joint spaces are maintained. There is no abnormal radiopaque foreign body. Right knee MACRO: NoneNormalThe [facility] SystemXR KNEE RT ANY 4 OR MORE VIEWS on [id number] KNEE RT ANY 4 OR MORE VIEWSAddendum Begins Addendum: Billing Correction Addendum: The exam was processed with an incorrect exam code. Exam charges have been eliminated and the examination has been reordered as accession number [id number] Addendum Ends EXAMINATION: XR KNEE RT ANY 4 OR MORE VIEWSPRO/RT 11/13/2024 10:09 AM CLINICAL HISTORY: fracture ASSOCIATED DIAGNOSIS: ORDERING PROVIDER: INGA SHELTON TECHNRILEY NOTE: COMPARISON: XRAY RIGHT LOWER EXTREMITY IMG IMPORT(KEYUR) 11/13/2024 5:53 AM IMPRESSION: Acute, comminuted and displaced fracture of the right proximal fibula without definite intra-articular extension. The distal femur and tibial plateau appear intact. No joint effusion is seen. The joint spaces are maintained. There is no abnormal radiopaque foreign body. Right knee MACRO: NoneNormalThe [facility] SystemXR Knee - right AP and Lateral on [id number] Interpretation EXAMINATION: XR KNEE RT ANY 4 OR MORE VIEWSPRO/RT 11/13/2024 10:09 AM CLINICAL HISTORY: fracture ASSOCIATED DIAGNOSIS: ORDERING PROVIDER: INGA SHELTON TECHNRILEY NOTE: COMPARISON: XRAY RIGHT LOWER EXTREMITY IMG IMPORT(KEYUR) 11/13/2024 5:53 AM IMPRESSION: Acute, comminuted and displaced fracture of the right proximal fibula without definite intra-articular extension. The distal femur and tibial plateau appear intact. No joint effusion is seen. The joint spaces are maintained. There is no abnormal radiopaque foreign body. Right knee MACRO: None Agustin Boles MD - 11/14/2024 Radiology Interpretation EXAMINATION: XR KNEE RT ANY 4 OR MORE VIEWSPRO/RT 11/13/2024 10:09 AM CLINICAL HISTORY: fracture ASSOCIATED DIAGNOSIS: ORDERING PROVIDER: INGA SHELTON TECHNRILEY NOTE: COMPARISON: XRAY RIGHT LOWER EXTREMITY IMG IMPORT(KEYUR) 11/13/2024 5:53 AM IMPRESSION: Acute, comminuted and displaced fracture of the right proximal fibula without definite intra-articular extension. The distal femur and tibial plateau appear intact. No joint effusion is seen. The joint spaces are maintained. There is no abnormal radiopaque foreign body. Right knee MACRO: None [facility] Knee - right AP and LateralOrdered By: Agustin York on [id number] Work Phone: aBO/Rhon [phone]/RhPositiveInvalid Interpretation [facility] HospitalComment on above:Performed By: #### [id number] #### [facility] [address], [place] [address]KKR/Rh History Checkon [id number]/Rh History CheckPatient discharged priorNoSouthwest General Health CenterComment on above:Performed By: #### [id number] #### [facility] [address], [place] [address]FQUNju [id number] Gel InterpNegativeCleveland Clinic Mentor HospitalComment on above:Performed By: #### [id number] #### [facility] [address], [place] [address]TMBOWIL (ETHANOL), BLOODon [id number] [Mass/Vol]mg/dL NormalNone DetectedThe [facility] CenterroHealth SystemComment on above:Performed By: #### CH8, ETOH #### [facility] [address] [place] [address], [address]QTXGM METABOLIC PANELon 41-61-0944Zdmcp gap [Moles/Vol] 14 mmol/QQtifae56-79Qsz [facility] SystemComment on above:Performed By: #### CH8, ETOH #### [facility] [address] [place] [address], [address]Mbmtlph [Mass/Vol]8.9 mg/dLNormal8.6-10.3The [facility] SystemComment on above:Performed By: #### CH8, ETOH #### [facility] [address] [place] [address], [address]Weiqtxqp [Moles/Vol]110 mmol/IRuvr04-126Kvl [facility] CenterroHealth SystemComment on above:Performed By: #### CH8, ETOH #### [facility] [address] [place] [address], [address]KB3 [Moles/Vol]24 mmol/PYkvnge81-86Shs [facility] SystemComment on above:Performed By: #### CH8, ETOH #### [facility] [address] [place] [address], [address]Vpvujohrpw [Mass/Vol]2.03 mg/dLHigh0.70-1.30The [facility] SystemComment on above:Performed By: #### CH8, ETOH #### [facility] [address] [place] [address], [address]EWRLMAXAQ GFR (CKD-EPI)38 mL/min/1.73sqmLow>=60The [facility] HospitalHealth SystemComment on above:Result Comment: 2020 CKD EPI Equation using Creatinine without Race Comment: Estimated glomerular filtration rate (eGFR) is calculated without [...] Med 1 Vol. 385 Issue 19 Pages 0934-7813Performed By: #### CH8, ETOH #### [facility] [address] [place] [address], [address]Rpnlwcy [Mass/Vol]130 mg/iRWkmn26-099Fxb [facility] [place] [facility] SystemComment on above:Performed By: #### CH8, ETOH #### [facility] [address] [place], [address]Rpxvgqjug [Moles/Vol]4.6 mmol/LNormal3.5-5.0The [facility] [place] [facility] SystemComment on above:Performed By: #### CH8, ETOH #### [facility] [address] [place], [address]Vpwfrm [Moles/Vol]143 mmol/RBsgrhh615-502Pnp [facility] [place] [facility] SystemComment on above:Performed By: #### CH8, ETOH #### [facility] [address] [place], [address]Wqei nitrogen [Mass/Vol]30 mg/dLHigh7-25The [facility]. [facility] God HospitalComment on above:Performed By: #### CH8, ETOH #### [facility] [address] [place] [address], [address]QKUhg 32-29-3697XTV/Creat Ratio18 No RqyfdIkglpp21-17 [facility] AndersonComment on above:Performed By: #### [id number] #### [facility] [address], [place] [address]Twtcouckrs [Mass/Vol]1.8 mg/dLHigh0.5-1.3FThe University of Toledo Medical CenterComment on above:Performed By: #### [id number] #### [facility] [address], [place] [address]Scsqa gap [Moles/Vol]10 mmol/LNormal6-16FishBaltimore VA Medical CenterComment on above:Performed By: #### [id number] #### [facility] [address], [place] [address]Ogbbhnq [Mass/Vol]9.1 mg/dLNormal8.9-11.1FThe [facility] of [facility]edo Medical CenterComment on above:Performed By: #### [id number] #### [facility] [address], [place] [address]Ymfbxenx [Moles/Vol]109 mmol/PIeqsrt076-437RnaybdOur Lady Of Mercy Hospital - AndersonComment on above:Performed By: #### [id number] #### [facility] [address], [place] [address]BG7 [Moles/Vol]27 mmol/BDkzalm13-70HhekfrOur Lady Of [facility] Comment on above:Performed By: #### [id number] #### [facility] [address], [place] [address]Xdqujhi [Mass/Vol]124 mg/zCLemxje40-086WhfzizOur Lady Of Mercy Hospital - AndersonComment on above:Performed By: #### [id number] #### [facility] [address], [place] [address]Gkhnhzxty [Moles/Vol]4.2 mmol/LNormal3.5-5.3FThe University of Toledo Medical CenterComment on above:Performed By: #### [id number] #### [facility] [address], [place] [address]Ephmvo [Moles/Vol]142 mmol/UNkxrjz462-987NlvrbtOur Lady Of Mercy Hospital - AndersonComment on above:Performed By: #### [id number] #### [facility] [address], [place] [address]Llyd nitrogen [Mass/Vol]32 mg/dLHigh5-21[facility] - AndersonComment on above:Performed By: #### [id number] #### [facility] [address], [place] [address]Pdtkz Bank ID#on [id number]#[id number] Interpretation CodeOur Lady Of Mercy Hospital - AndersonComment on above:Performed By: #### [id number] #### [facility] [facility] [address] [place], [place] [address]NZH WITH DIFFERENTIALon [id number] (Bld) [#/Vol]0.03 10*3/uLNormal0.00-0.20The [facility] HospitalHealth SystemComment on above:Performed By: #### CBCDSAT ####[facility] VYHOMMEFGN[address] [place] [address], [phone]/100 WBC (Bld)0.3 %Normal<=1.9The [facility] SystemComment on above:Performed By: #### CBCDSAT ####[facility] PATHOLOGY HUZPQCVVSB[address] [place] [address], [phone] (Bld) [#/Vol]0.01 10*3/uLNormal 0.00-0.70The [facility] SystemComment on above:Performed By: #### CBCDSDANA ####[facility] PATH[facility]Y VBTHOPAMZP[address] [place] [address], Eosinophils/100 WBC (Bld)0.1 %Normal0.1-4.0The [facility] SystemComment on above:Performed By: #### CBCDSDANA ####[facility] PATHOLOGY YCOWKPTJFK[address] [place] [address], [phone] distribution width (RBC) [Ratio]13.7 % Avzfde68.5-14.5The [facility] SystemComment on above:Performed By: #### CBCDSAT ####[facility] PATH[facility]Y AEFMOXFYBF[address] [place] [address], Hematocrit (Bld) [Volume fraction]38.0 %Low41.0-53.0The [facility] [place] [facility] Comment on above:Performed By: #### CBCDSAT ####[facility] PATHOLOGY JCHQSANTXA[address] [place] [address], [phone] (Bld) [Mass/Vol]12.7 g/dL Low13.9-16.3The [facility] SystemComment on above:Performed By: #### CBCDSDANA ####[facility] PATHOLOGY RCQITNXVBD[address] [place] [address], Lymphocytes (Bld) [#/Vol]0.73 10*3/uLLow1.00-4.80The [facility] SystemComment on above:Performed By: #### CBCDSAT ####[facility] PATHOLOGY SLOOEBFQWC[address] [place] [address], [phone]/100 WBC (Bld)5.6 %Low24.0-44.0The [facility] Hospital[facility] SystemComment on above:Performed By: #### CBCDSAT ####[facility] PATHOLOGY TUFDORHKJK[address] [place] [address], [phone] (RBC) [Entitic mass]33.2 gyOhjpld70.0-34.0The [facility] SystemComment on above:Performed By: #### CBCDSAT ####[facility] PATH[facility]Y DBECFMIGKA[address] [place] [address], [phone] (RBC) [Mass/Vol]33.4 g/pXMqymch91.0-35.9The [facility] [place] [facility] Comment on above:Performed By: #### CBCDSAT ####[facility] PATH[facility]Y XLHNPZXBYS[address] [place] [address], [phone] (RBC) [Entitic vol]99 fLNormal 80-100The [facility] SystemComment on above:Performed By: #### CBCDSAT ####[facility]Y GUABSXUYIX[address] [place] [address], [phone] DISTRIBUTION WLPHF54Fidaos<=20The [facility] SystemComment on above:Performed By: #### CBCDSAT ####[facility] YAYDNPJKWF[address] [place] [address], [phone] (Bld) [#/Vol]1.18 10*3/uLHigh0.20-1.00The [facility] SystemComment on above:Performed By: #### CBCDSAT ####[facility]Y SIYWIZUBXL[address] [place] [address], [address]Skmynjamj/100 WBC (Bld) 9.1 %Normal2.0-11.0The [facility] SystemComment on above:Performed By: #### CBCDSAT ####[facility]Y AAVRISRXII[address] [place] [address], [address]Vpdbxppebtt (Bld) [#/Vol]11.07 10*3/uLHigh1.50-8.00The [facility] SystemComment on above:Performed By: #### JAVIERAT ####[facility] PATHOLOGY RDTKWOHSSP[address] [place] [address], [address]Qoalurrtpci/100 WBC (Bld)85.0 %High31.0-76.0The [facility] SystemComment on above:Performed By: #### CBCDSAT ####[facility] PATH[facility]Y ZCWVRGSZYV[address] [place] [address], [address]Jnyybxne mean volume (Bld) [Entitic vol]8.4 fLNormal7.5-11.2The [facility] Centerro[facility] SystemComment on above:Performed By: #### CBCSKYEAT ####[facility] PATHOLOGY SUOIXXZNVL[address] [place] [address], [address]Vpdkmpniz (Bld) [#/Vol] 157 10*3/tODzxmxn435-126Jhw [facility] Centerro[facility] SystemComment on above:Performed By: #### JAVIERAT ####[facility] PATH[facility]Y UQXZYNOFKV[address] [place] [address], [phone] (Bld) [#/Vol]3.83 10*6/uLLow4.50-5.90The [facility] CenterroHealth SystemComment on above:Performed By: #### CBCSKYEAT ####[facility] PATH[facility]Y VYALOUYFHX[address] [place] [address], [address]DYF (Bld) [#/Vol]13.0 10*3/uLHigh 4.5-11.5The [facility] Centerro[facility] SystemComment on above:Performed By: #### CBCSKYEAT ####[facility] JJBCXDLZRE[address] [place] [address], [address]FDY w/ Auto Diffon [id number] Absolute0.0 E9/LNormal0.0-0.2[facility] MarylandComment on above:Performed By: #### [id number] #### [facility] [address], [place] [address]Ngglpeymg/100 WBC (Bld)0.4 %Normal0.0-2.0[facility] - AndersonComment on above:Performed By: #### [id number] #### [facility] [address], [place] [address]Epx Absolute0.1 E9/LNormal0.0-0.5FThe [facility] Comment on above:Performed By: #### [id number] #### [facility] [address], [place] [address]Zneacnpniis/100 WBC (Bld)1.1 %Normal0.0-8.0[facility] - AndersonComment on above:Performed By: #### [id number] #### [facility] [address] [place] [address]Ivaalpmakqr distribution width (RBC) [Ratio]13.4 %Normal 10.9-14.2FThe [facility] CenterComment on above:Performed By: #### [id number] #### [facility] [address] [place] [address]Ykuekrzfzr (Bld) [Volume fraction]36.1 %Low37.7-49.0[facility] AndersonComment on above:Performed By: #### [id number] #### [facility] [address] [place] [address]Rkzeivdgdp (Bld) [Mass/Vol]12.7 g/dLLow13.5-17.5FThe [facility] CenterComment on above:Performed By: #### [id number] #### [facility] [address], [place] [address]Ceamu Absolute1.4 E9/LNormal1.0-4.0[facility] Comment on above:Performed By: #### [id number] #### [facility] [address], [place] [address]Qolrrdlifbr/100 WBC (Bld)10.8 %Low14.0-50.0[facility] AndersonComment on above:Performed By: #### [id number] #### [facility] [address], [place] [address]DQH (RBC) [Entitic mass]34.6 qcTscw50.0-34.0[facility] AndersonComment on above:Performed By: #### [id number] #### [facility] [address] [place] [address]ZPIJ (RBC) [Mass/Vol]35.0 g/uGTczwcx66.4-36.0[facility] AndersonComment on above:Performed By: #### [id number] #### [facility] [address] [place] [address]YAP (RBC) [Entitic vol]98.7 kPSieqei20.0-100.0[facility] AndersonComment on above:Performed By: #### [id number] #### [facility] [address] [place] [address]Itdy Absolute0.7 E9/LNormal0.2-1.0[facility] Comment on above:Performed By: #### [id number] #### [facility] [address] [place] [address]Fnevmjxfd/100 WBC (Bld)5.7 %Normal4.0-14.0[facility] AndersonComment on above:Performed By: #### [id number] #### [facility] [address] [place] [address]Bcsult Qjstricf92.7 E9/LHigh2.0-7.5FThe [facility] Comment on above:Performed By: #### [id number] #### [facility] [address] [place] [address]Atqhax Auto82.0 %High36.0-75.0[facility] Comment on above:Performed By: #### [id number] #### [facility] [address] [place] [address]37[address]Fkignrtq011.0 E9/LPkjtzr408.0-500.0[facility] Comment on above:Performed By: #### [id number] #### [facility] [address], [place] [address]Xnlubyxk mean volume (Bld) [Entitic vol]8.3 fLNormal6.4-10.8 [facility] AndersonComment on above:Performed By: #### [id number] #### [facility] [address] [place] [address]OHF4.7 E12/LLow4.3-5.9[facility] AndersonComment on above:Performed By: #### [id number] #### [facility] [address] [place] [address]MMO42.1 E9/LHigh4.0-11.0[facility] AndersonComment on above:Performed By: #### [id number] #### [facility] [address] [place] [address] 018[address]TMIWGAGJANTS ABO/RHon [id number] and Rh group Nom (Bld)Blood group A Rh(D) positiveMarietta Osteopathic ClinicComment on above:Performed By: #### BING CLEANING, MG #### [facility] [address] [place] [address], [phone] [id number] [facility] SystemComment on above:Performed By: #### BING CLEANING, MG #### [facility] [address] [place] [address], [phone] C-SPINE W/O CONTRASTon [id number] C-SPINE W/O CONTRASTEXAMINATION: CT C-SPINE W/O CONTRASTPRO 11/13/2024 09:37 AM CLINICAL HISTORY: Trauma; 54 M, fall w/ open RLE fxs ASSOCIATED DIAGNOSIS: Trauma 54 M, fall w/ open RLE fxs ORDERING PROVIDER: YUDI APARICIO [employer]ISTS NOTE: COMPARISON: None TECHNIQUE: Thin isotropic axial [...] the images and agree with the resident's interpretation.NormalThe [facility] SystemCT CHEST/ABD/PELVIS W/ CONTRASTon [id number] CHEST/ABD/PELVIS W/ CONTRASTEXAMINATION: CT CHEST/ABD/PELVIS W/ CONTRASTPRO 11/13/2024 09:37 AM CLINICAL HISTORY: Trauma; 54 M, fall w/ open RLE fxs ASSOCIATED DIAGNOSIS: Trauma 54 M, fall w/ open RLE fxs ORDERING PROVIDER: YUDI AP[employer]IO [employer] NOTE: COMPARISON: None TECHNIQUE: Contiguous axial images were obtained through the chest abdomen and pelvis from the level of the thoracic inlet through the pubic symphysis following administration of intravenous contrast. MPR sagittal and coronal reconstructions were obtained from the axial data. Before infusion of intr avenous contrast, radiology personnel investigated the possibility of [...] for spine findings. Bilateral gynecomastia. IMPRESSION: 1. Acute mildly displaced fracture of the right distal clavicle. See separately dictated CT of the thoracic and lumbar spine for spine findings. 2. Severely distended urinary bladder with an estimated volume of 3 L. Recommend decompression. 3. No evidence of visceral injury. 4. 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 5. Multiple indeterminate renal cystic structures. Recommend further nonemergent characterization with outpatient renal protocol MRI with and without contrast. 6. Large volume of stool within the colon. MACRO: (-I1-) [ I have personally reviewed the images and agree with the resident's interpretation.NormalThe [facility] SystemCT HEAD W/O CONTRASTon [id number] HEAD W/O CONTRASTEXAMINATION: CT HEAD W/O CONTRASTPRO 11/13/2024 09:37 AM CLINICAL HISTORY: Trauma; 54 M, fall w/ open RLE fxs ASSOCIATED DIAGNOSIS: Trauma 54 M, fall w/ open RLE fxs ORDERING PROVIDER: YUDI [employer] NOTE: COMPARISON: None TECHNIQUE: Thin axial imaging [...] the images and agree with the resident's interpretation.NormalThe [facility] SystemCT T-SPINE/L-SPINE W/O CONTRASTon [id number] T-SPINE/L-SPINE W/O CONTRASTEXAMINATION: CT T-SPINE/L-SPINE W/O CONTRASTPRO 11/13/2024 09:37 AM CLINICAL HISTORY: Trauma; 54 M, fall w/ open RLE fxs ASSOCIATED DIAGNOSIS: Trauma 54 M, fall w/ open RLE fxs ORDERING PROVIDER: YUDI [employer] NOTE: COMPARISON: None TECHNIQUE: Thin axial [...] the images and agree with the resident's interpretation.NormalThe MaintenanceNetroHealth SystemCT TIBIA RIGHT W/O CONTRASTon [id number] TIBIA RIGHT W/O CONTRASTEXAMINATION: CT TIBIA RIGHT W/O CONTRASTPRO/RT 11/13/2024 02:21 PM CLINICAL HISTORY: post splint ASSOCIATED DIAGNOSIS: post splint ORDERING PROVIDER: INGA SHELTON [employer]CH[employer]OLOGISTS NOTE: COMPARISON: XR TIBIA RIGHT 2 [...] posterior and medial displacement of the distal fracturefragment. No definite intra-articular extension. * No knee or ankle dislocation. Limited evaluation of vasculature secondary to lack of contrast. IMPRESSION: 1. Proximal and mid vincenzo-hardware fibula fractures as described above. 2. Comminuted and severely displayed fracture of the mid tibia. 3. Associated soft tissue edema and hematoma. CT TIBIA RIGHT W/O CONTRAST MACRO: None I have personally reviewed the images and agree with the resident's interpretation.NormalThe [facility] [place] [facility] SystemConsuohiohealth [facility] [id number] Authentication Interface Message TextORTHOPAEDIC SPINE TRAUMA H AND P Patient Name: Alethea Lei Primary Care Physician: No primary care provider on file. CONSULTED BY: Emergency department, trauma team CONSULTED FOR: T spine findings CHIEF COMPLAINT: pain HPI: 54M (Intellectual disability, tuberous sclerosis, CKD 3, hypothyroidism, ADHD, OCD, depression, autistic spectrum disorder) transfer from [facility] with age indeterminateT3,T8 compression fx after [facility]GLF at [facility]. Also with distal third tibia shaft fx, R clavicle fx. Poor historian/exam due to disability, but no t spine tenderness, no radicular symptoms, B AND B or saddle paresthesia. PAST MEDICAL HISTORY: Medical History[1] PAST SURGICAL HISTORY: Surgical History[2] FAMILY HISTORY: Family History[3] SOCIAL HISTORY: Social History Occupational History Not on file Tobacco Use Smoking status: Not on file Smokeless tobacco: Not on file Substance and Sexual Activity Alcohol use: Not on file Drug use: Not on file Sexual activity: Not on file MEDICATIONS: ceFAZolin 2,000 mg Q8H Antibiotic senna 8.6 mg At Bedtime tamsulosin 0.4 mg Daily haloperidol 10 mg Every evening [START ON 11/15/2024] enoxaparin (LMWH) anti-fxa One Time Dose enoxaparin 0.5 mg/kg (Order-Specific) 2x Daily lidocaine 1 Patch Every 24 hours methocarbamol 750 mg Every 8 hours acetaminophen 1,000 mg Every 8 hours polyethylene glycol 17 g Daily amLODIPine 10 mg Daily atorvastatin 40 mg Daily benztropine 1 mg 3x Daily calcium carbonate-cholecalciferol 1 Tablet 2x Daily haloperidol 15 mg BID levETIRAcetam 500 mg 2x Daily levothyroxine 137 mcg Before Breakfast OXcarbazepine 600 mg 2x Daily paroxetine 40 mg Daily [START ON 11/14/2024] lactated ringers oxyCODONE 2.5 mg Q4H PRN oxyCODONE 5 mg Q4H PRN HYDROmorphone HCl PF 0.5 mg Q4H PRN bisacodyl 10 mg Daily PRN ALLERGIES: Allergies[4] COMPLETE REVIEW OF SYSTEMS: ROS 02/03 systems negative other than above Laboratory: CBC/PT/INR 11/13/2024 9:04 AM WBC 13.0 RBC 3.83 Hgb 12.7 Hct 38.0 MCV 99 RDW 13.7 Plt 157 aPTT <21 INR 1.12 WBC/Diff 11/13/2024 9:04 AM Neutro% 85.0 Lymphs% 5.6 Monos% 9.1 Eos% 0.1 Basos% 0.3 Basic Metabolic Panel 11/13/2024 9:04 AM Na 143 K 4.6 Cl 110 CO2 24 Gap 14 Glu 130 BUN 30 Cr 2.03 Ca 8.9 Hepatic/Biliary/Pancreas No lab values to display. Cardiac None Arterial Blood Gases None Fingerstick Glucose None PHYSICAL EXAM: Palpation: Spinal column nontender to palptation, no step-offs or ecchymosis. Paraspinal region nontender to palpation. No SI joint tenderness. Neck with full, painless ROM in lateral bend, rotation, flex, ext Moves all 4 extremities grossly full strength and sensation, but has difficulty with directions. Reflexes: Bilateral and symmetric 2+/4 UE reflexes (biceps, triceps, BR) Bilateral and symmetric 2+/4 LE reflexes (knee-jerk, Achilles) No clonus Downgoing Toes (negative Babinski) No Dong's noted, bilateral A full secondary survey was conducted. Patient did not have any acute pain other than that previously mentioned with ROM or palpation of other extremities. RADIOLOGY: There is slight irregularity of the anterosuperior aspect of T3 vertebral body as seen on (Series 1004, Image 53) and this is suspicious for a subtle fracture. There is no significant loss of height. Acute/subacute compression deformity of T8 with 10-15% height loss. SPINE CLASSIFICATION: 1. Spinal fracture level: Thoracic: T3 and T8 2. Neurological level of injury: None 3. Fracture morphology: A1: Wedge compression 4. Facet fracture: No BL: Bilateral injury: No 5. Neurological status: N0: Intact N+: Ongoing compression with neurological deficit: No 6. Clinical modifiers: None 7.Previous spine surgery: No 8. Previous spine trauma: Yes Assessment/Plan: Above plan was discussed with the (Chief) within 30 minutes of consult and discussed with the staff Dr. Sena 54M (Intellectual disability, tuberous sclerosis, CKD 3, hypothyroidism, ADHD, OCD, depression, autistic spectrum disorder) transfer from [facility] with age indeterminateT3,T8 compression fx after mGLF at [facility]. Also with distal third tibia shaft fx, R clavicle fx. Poor historian/exam due to disability, but no t spine tenderness, no radicular symptoms, B AND B or saddle paresthesia. Moves all 4 extremities grossly full strength and sensation, but has difficulty with directions. Plan for uprights when able, likelynot til OR with Ortho trauma. Clear for OR from spine perspective. - No acute surgical intervention at this time - Please obtain upright T spine spine XRs - Follow up in [facility] in 2 weeks. Please call [phone] for appt. - Patient will be followed peripherally by Ortho Elective Team. Please page [phone] or [phone] after 7AM post-admission day #1 This consult was staffed with Spine Fellow Dr. Caceres (more content not included)...NormalThe [facility] SystemED Clinical Summaryon [id number] Clinical SummaryED Clinical Summary [place] [id number] ED Clinical Summary Person Information Name: ALETHEA LEI/BannerAlistair Age: 54 Years : 1970 Sex: Male Language: Maltese PCP: GO FOSTER DO Marital Status: Single Visit Id: Visit Reason: Leg injury, lower - Major; Fall; RIGHT LEG INJURY Speciality: Acuity: 2 Enc Type: Emergency Med Service: Emergency Arrival: 11/13/2024 05:40:30 Discharge: 11/13/2024 07:50:00 LOS: 000 02:10 Checkin: 11/13/2024 05:40:30 Checkout: 11/13/2024 07:50:00 Dispo Type: Short-Term Hosp as IP EVENTS: Event Name Event Status Request Date/Time Start Date/Time Complete Date/Time Arrive Complete 11/13/2024 05:40:30 11/13/2024 05:40:30 11/13/2024 05:40:30 Document Home Meds Request 11/13/2024 05:40:30 Triage Complete 11/13/2024 05:40:30 11/13/2024 06:14:14 11/13/2024 06:14:14 Dr Exam Complete 11/13/2024 05:40:46 11/13/2024 05:40:46 11/13/2024 05:40:46 Registration Complete 11/13/2024 05:40:46 11/13/2024 05:44:05 11/13/2024 06:53:05 X-Ray Complete 11/13/2024 05:41:11 11/13/2024 05:45:15 11/13/2024 06:26:44 NPO Request 11/13/2024 05:43:54 Pending Labs Inlab 11/13/2024 05:43:54 Lab Complete 11/13/2024 05:43:54 11/13/2024 07:23:49 Meds Admin Complete 11/13/2024 05:43:54 11/13/2024 06:02:55 RT Request 11/13/2024 05:43:54 Patient Care Request 11/13/2024 05:43:54 Blood Collect Request 11/13/2024 05:43:54 Bed Assign Complete 11/13/2024 05:44:05 11/13/2024 05:44:05 11/13/2024 05:44:05 RN Exam Complete 11/13/2024 05:44:05 11/13/2024 06:16:45 11/13/2024 06:16:45 Meds Admin Complete 11/13/2024 05:53:29 11/13/2024 06:02:55 Fall Risk Request 11/13/2024 06:16:46 Trauma III Request 11/13/2024 06:22:53 Patient Care Request 11/13/2024 06:26:14 Transfer Complete 11/13/2024 06:26:14 11/13/2024 07:55:21 11/13/2024 07:55:21 Wet Read Request 11/13/2024 06:26:44 Pending Labs Complete 11/13/2024 06:29:16 11/13/2024 06:29:16 11/13/2024 07:23:49 Lab Complete 11/13/2024 06:29:16 11/13/2024 06:29:16 11/13/2024 07:23:49 X-Ray Complete 11/13/2024 06:51:23 11/13/2024 07:03:43 11/13/2024 07:27:31 Reg Complete Request 11/13/2024 06:53:05 Reg Bed Request Complete 11/13/2024 06:53:05 11/13/2024 06:53:05 11/13/2024 06:53:05 Discharge Complete 11/13/2024 07:55:21 11/13/2024 07:55:21 11/13/2024 07:55:21 AD[address]ESS: [address] [phone] PHYS DOC NOTES: MEDICAL INFORMATION: Prescriptions Given: Medications to Continue with No Changes Other Medications amlodipine (amLODIPine 10 mg Tab) 1 Tablets By Mouth every day. atorvastatin (atorvastatin 40 mg Tab) 1 Tablets By Mouth at bedtime. benztropine (benztropine 1 mg Tab) 1 Tablets By Mouth 3 times a day. calcium-vitamin D (Oyster Shell Calcium with Vitamin D 500 mg-200 intl units oral tablet) 1 TabletsBy Mouth 2 times a day. clonidine (cloNIDine 0.2 mg Tab) 1 Tablets By Mouth 3 times a day. haloperidol (haloperidol 5 mg Tab) 3 Tablets By Mouth 2 times a day. Refills: 0. haloperidol (haloperidol 5 mg Tab) 2 Tablets By Mouth once a day (in the evening). Refills: 0. levetiracetam (levetiracetam 500 mg Tab) [...] Capsules By Mouth every day. Refills: 0. PATIENT EDUCATION INFORMATION: Instructions: Follow up: DIAGNOSIS: Maisonneuve fracture; Open fracture of tibia and fibula; Unspecified fracture of shaft of unspecified fibula, initial encounter for open fracture type I or II [facility] CenterED Note-Physicianon [id number] Note-Physician ED Note-Physician Basic Information Time Seen: Jeny Paredes DO 11/13/2024 05:40 History of Present Illness 54 male presents by EMS from the [facility] with obvious injury to the right lower extremity. History somewhat limited by the fact the patient does have history of some type of developmental delay. From what I can gather the patient was walking with a caregiver at the facility when they heard a snap and he fell to the ground with obvious injury to the right lower extremity proximal to the ankle distal to the knee on that side. No other injuries at that time. I am not aware of any prior injuriesto this extremity previously but again history is very limited. I do not believe the patient is on any blood thinners. No other aggravating or relieving factors no other associated symptoms no other prior treatments or complaints. Family: Reviewed and noncontributory Social: lives at home Review of systems negative unless otherwise specified in the HPI. Physical Exam General: The patient appears well and in no apparent distress. Patient is resting comfortably on cart. Skin: Exam described below Head: Normocephalic, atraumatic Neck: No JVD Eye: PERRLA, EOMI ENT: Moist mucus membranes Cardiovascular: Regular rate normal peripheral perfusion Respiratory: No respiratory distress no accessory muscle use no obvious audible wheezing Chest Wall: no deformity Musculoskeletal: Right lower extremity: Patient has tenderness to palpation with concerns for deformity to the distal third of the right lower extremity proximal to the ankle distal to the knee on that side. This area is tender to palpation overlying the tibia and fibular region with some swelling noted. Patient does have a couple of punctate wounds to the anterior lower third of the lower extremity which raises concern for the possibility of open fracture. There are some bruising noted medially over the distal third of the tibia as well. GI: Soft no obvious distention. No rebound or rigidity. No guarding. No tenderness. Neurological: A&O moves all extremities equal strength and symmetry. Cranial nerves grossly intact as tested Psychiatric: Cooperative and appropriate Procedure The affected extremity was immobilized. Cast padding was used to wrap the extremity. A posterior long leg splint was applied by Dr. Paredes using orthoglass. We did cover the opening with Xeroform gauze and covered it with regular gauze that was dry over the wound per the recommendation of Dr. Aviles. The patient tolerated this procedure well. Extremity was examined after application and was found to be neurovascularly intact distally. Medical Decision Making X-rays reveal comminuted fracture distal tibia and fibula with fibula being a periprosthetic fracture with previous hardware noted. Patient also has Maisonneuve fracture of the proximal fibular head.Case was discussed with Dr. Aviles who recommended transfer because of complexity of the fracture with previous hardware as well as the open component. Patient is treated here with tetanus update as well as IV Ancef. Case discussed with trauma and they did advise transfer we spoke with the transferline patient will be transferred to [facility] for further trauma evaluation and treatment. Patient was treated here with a splint for his right lower extremity with a posterior long-leg splint. He was also given medication for pain. He is showing some swelling to that left foot will add on an x-ray to that left foot as well. Critical care time 30 minutes exclusive from separate billable procedures Assessment/Plan Maisonneuve fracture (S82.863A: Displaced Maisonneuve's fracture of unspecified leg, initial encounter for closed fracture) Open fracture of tibia and fibula (S82.209B: Unspecified fracture of shaft of unspecified tibia, initial encounter for open fracture type I or II) Unspecified fracture of shaft of unspecified fibula, initial encounter for open fracture type I or II (S82.409B: Unspecified fracture of shaft of unspecified fibula, initial encounter for open fracture type I or II) Orders: cefazolin + Sodium Chloride 0.9% intravenous solution 50 mL, 2 gm = 1 EA, Powder-Inj, IV Piggyback,Once, Stop date 11/13/24 5:43:00 EDT, STAT, Start date 11/13/24 5:43:00 EDT, 100 mL/hr, Infuse over30 minute(s) morphine, 4 mg = 2 mL, Injection, IV Push, Once PRN Pain, STAT, Start date 11/13/24 5:53:00 EDT, 11/13/24 5:53:00 EDT tetanus-diphtheria toxoids (Td), 0.5 mL, Susp-Inj, Intramuscular-Immunization, Once, Stop date 11/13/24 5:43:00 EDT, STAT, Start date 11/13/24 5:43:00 EDT ABO/Rh ABO/Rh History Check Antibody Screen Basic Metabolic Panel Blood Bank ID# CBC w/ Auto Diff eGFR NPO Diet Oxygen Therapy PT & PTT Pulse Oximetry Continuous Transfer Patient XR Tib/Fib Right 2 View Medications Administered Given luRQ6Eqn [F] 2 gm + Sodium Chloride 0.9% IV Ami 50 mL Minibag Plus [F] 50 mL, IV Piggyback morphine 2 mg/mL Inj, 4 mg, IV Push tetanus-diphtheri (more content not included)...[facility] HospitalComment on above:Result Comment: Electronically Signed By: Jeny Paredes DO\.br\Date and Time Signed: 11/13/24 06:40EDTED Noteson 11-13-2024 Manager Commercial Sales Authentication Interface Message TextPer SPRING Hunter RN attempted martini catheter placement at this time. This RN and RN Sharan attempted catheter insertion 3 times, twice with use of coude, without success. SPRING notified.[facility] SystemTranscription Authentication Interface Message TextRN attempted martini catheter placement at this time. RN explained what we were going to do and why the catheter was necessary to the pt. The pt immedietly began screaming no, no, you're not doing that, please dont do that!!! . RN attempted to calm patient multiple times and pt continued screaming. RN did not attempt insertion of the catheter due to patients refusal and resistance against staff when we got anywhere close to patients bedside. SPRING Hunter notified [facility] SystemED Patient Education Noteon [id number] Patient Education NoteED Patient Education NoteNoKettering Health [facility] CenterED Patient Summaryon [id number] Patient SummaryED Patient Summary [place] [id number] Patient Discharge Instructions Person Information Name: ALETHEA LEI Age: 54 Years Arrival Date: 11/13/2024 05:40:30 Discharge Diagnosis: Maisonneuve fracture; Open fracture of tibia and fibula; Unspecified fracture of shaft of unspecified fibula, initial encounter for open fracture type I or II Primary Care Physician: GO FOSTER DO Provider Information Primary Provider: Jeny Paredes DO [employer] Boards Stripper Etcher:None The exam and treatment you received in the Emergency Department were for an urgent problem and are not intended as complete care. It is important that you follow up with a doctor, nurse practitioner,or physician???s assistant to the president for ongoing care. If your symptoms become worse or you do not improve asexpected and you are unable to reach your usual health care provider, you should return to the Emergency Department. We are available 24 hours a day. QUIQUE ALETHEA has been given the following list of patient education materials, prescriptions and follow-up instructions: Follow-up Instructions: In the event that this physician does not participate in your insurance network, please consult with your insurance company to find a nearby participating provider. Patient Education Materials: A MESSAGE TO ALL PATIENTS REGARDING OPIOIDS PRESCRIPTION OPIOIDS: WHAT YOU NEED TO KNOW Prescription opioids can be used to help relieve nkurhioa-qv-lhxmof pain and are often prescribed following a surgery or injury, or for certain health conditions. These medications can be an important part of the treatment but also come with serious risks. It is important to work with your healthcare provider to make sure you are getting the safest, most effective care. WHAT ARE THE RISKS AND SIDE EFFECTS OF OPIOID USE? Prescription opioids carry serious risks of addiction and overdose, especially with prolonged use. An opioid overdose, often marked by slowed breathing, can cause sudden . The use of prescription opioids can have a number of side effects as well, even when taken as directed: ??? Tolerance???meaning you might need to take more of the medication for the same pain relief ??? Physical dependence???meaning you have symptoms of withdrawal when a medication is stopped ??? Increased sensitivity to pain ??? Constipation ??? Nausea, vomiting, and dry mouth ??? Sleepiness and dizziness ??? Confusion ??? Depression ??? Low levels of testosterone that can result in lower sex drive, energy, and strength ??? Itching and sweating RISKS ARE GREATER WITH: ??? History of drug misuse, substance use disorder, or overdose ??? Mental health conditions (such as depression or anxiety) ??? Sleep apnea ??? Older age (65 years and older) ??? Avoid alcohol while taking prescription opioids. Also, unless specifically advised by your health care provider, medications to avoid include: ??? Benzodiazepines (such as Xanax or Valium) ??? Muscle relaxants (such as Soma or Flexeril) ??? Hypnotics (such as Ambien or Lunesta) ??? Other prescription opioids KNOW YOUR OPTIONS Talk to your health care provider about ways to manage your pain that don???t involve prescription opioids. Some of these options may actually work better and have fewer risks and side effects. Options may include: ??? Pain relievers such as acetaminophen, ibuprofen, and naproxen ??? Some medication that are also used for depression or seizures ??? Physical therapy and exercise ??? Cognitive behavioral therapy, a psychological, goal-directed approach, in which patients learn how to modify physical, behavioral, and emotional triggers of pain and stress. IF YOU ARE PRESCRIBED OPIOIDS FOR PAIN: ??? Never take opioids in greater amounts or more often than prescribed. ??? Follow up with your primary health care provider. o Work together to create a plan on how to manage your pain. o Talk about ways to help manage your pain that don???t involve prescription opioids. o Talk about any and all concerns and side effects. ??? Help prevent misuse and abuse o Never sell or share prescription opioids. o Never use another person???s prescription opioids. ??? Store prescription opioids in a secure place and out of reach of others (this may include visitors, children, friends, and family). ??? Safely dispose of unused prescription opioids: Find your community drug take-back program or your pharmacy mail-back program, or flush them down the toilet, following guidance from the Food and Drug Administration (www.fda.gov/Drugs/ResourcesForYou). ??? Visit www.cdc.gov/drugoverdose to learn about the risks of opioids abuse and overdose. ??? If you believe you may be struggling with addiction, tell your health care trainer and askfor guidance or call [facility] (more content not included)...[facility] CenterED Provider Noteson 11-13-2024 Manager Commercial Sales Authentication Interface Message TextEMERMELISSA DEPARTMENT - VISIT NOTE HISTORY OF PRESENT ILLNESS No chief complaint on file. Saddle Stitch Operator: not needed - patient preferred language is Maltese. CAT 2 Brought in by EMS Alethea Lei is a 54 year old male with a history of intellectual disability, anemia presenting to the ED for fall coming from [facility] with imaging showing R tibia/fibula open fx. Per EMS, the patient was reported to be walking with a caregiver in the group facility in which he resides when he fell to the ground. Unknown head strike but no LOC reported. Patient was noted to have obvious deformity to right lower extremity. The patient with right tibia and fibula open fracture confirmed on imaging at OSH and therefore given Ancef and tetanus updated and transferred to [facility] for further evaluation and management. PAST HISTORY Pertinent Past History: Medical History[1] Pertinent Family History: Family History[2] Pertinent Social History: Social History Occupational History Not on file Tobacco Use Smoking status: Not on file Smokeless tobacco: Not on file Substance and Sexual Activity Alcohol use: Not on file Drug use: Not on file Sexual activity: Not on file PHYSICAL EXAM BP (!) 193/82 Pulse 65 Temp 97.8 ???F (36.6 ???C) (Oral) Resp (!) 23 SpO2 100% Physical Exam PRIMARY SURVEY: Airway: Intact Breathing: Normal Breath Sounds: Breath sounds equal bilaterally. Circulation: Pulses: Normal Skin: Normal skin color, texture, and turgor. No rashes or lesions. Disability: Pupils: PERRL GCS: Best Eyes: 4 Best Verbal: 4 Best Motor: 6 Total: 14 SECONDARY SURVEY: BP (!) 193/82 Pulse 65 Temp 97.8 ???F (36.6 ???C) (Oral) Resp (!) 23 SpO2 100% Neurologic: Alert and oriented, appropriate, moves all extremities. Strength symmetrical, no sensory deficits. HEENT: Head: No lacerations, bone step-offs, or abrasions; midface stable to palpation Eyes: PERRLA, conjunctiva/corneas without lesions. Ears: No hemotympanum Nose: Septum midline, no crepitus with motion. Throat: Oral cavity without trauma. Neck: No midline tenderness, lacerations, or wounds Chest: Tender when palpating left side chest wall, atraumatic Pulmonary: Breath sounds clear, symmetrical; no wheezes, rales, or consolidation Cardiovascular: Pulses: Bilateral radial, femoral, DP and PT pulses are normal. Abdomen: Non-distended; non-tender to palpation; no scars, lacerations, or contusions Rectal: Not performed. Pelvis/Perineum: Pelvis is stable to palpation Musculoskeletal: Back/Spine: Thoracolumbar spinal column non-tender and No step-off or deformity noted Extremities: Right LOWER extremity abnormality: R anterior paz, ankle TTP with puncture wound and Left LOWER extremity abnormality: L foot TTP Adjunct Studies: None MEDICAL DECISION MAKING and ED COURSE Discussion with External Provider: Mammographer from Orthopedic surgery service recommends the patient will likely require OR intervention in the AM with Orthopedic surgery for further management Independent Test Interpretation: Xrays personally reviewed and interpreted, x-ray right ankle shows acute displaced fracture of the right distal tibia. Final decision-making pending radiology read. CT scans personally reviewed and interpreted, ED head shows no evidence of acute intracranial hemorrhage. Final decision-making pending radiology read. Nursing triage and assessment notes reviewed and incorporated. Evaluated by EM attending Donnell Duncan Course: ED Course as of 11/13/24 1347 Sun Nov 13, 2024 0902 R open tib/fib fx, given ancef and tetanus at OSH [HD] 1033 Lactate(!): 2.5 Mildly elevated [HD] 1034 Creatinine(!): 2.03 Mild prerenal SHANON, given 1L IV fluids [HD] 1034 Ethanol: <10 [HD] 1034 WBC(!): 13.0 Mild leukocytosis [HD] 1034 Hemoglobin(!): 12.7 stable [HD] 1034 Platelet: 157 wnl [HD] 1111 CT CHEST/ABD/PELVIS W/ CONTRAST IMPRESSION: 1. Acute mildly displaced fracture of the right distal clavicle. See separately dictated CT of the thoracic and lumbar spine for spine findings. 2. Severely distended urinary bladder with an estimated volume of 3 L. Recommend decompression. 3. No evidence of visceral injury. 4. 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 5. Multiple indeterminate renal cystic structures. Recommend further nonemergent characterization with outpatient renal protocol MRI with and without contrast. 6. Large volume of stool within the colon. [HD] 1111 X-ray Foot Left (Routine) IMPRESSION: No definite acute left foot frac (more content not included)...NormalThe [employer] Authentication Interface Message TextATTENDING NOTE I saw and evaluated the patient. I personally obtained the narayanan and critical portions of the history and physical exam. I reviewed the resident's documentation and discussed the patient with the resident. I agree with the resident's medical decision making as documented in the resident's note. Donnell Duncan MD ED Course as of 11/14/24 0722 Sun Nov 13, 2024 0902 R open tib/fib fx, given ancef and tetanus at OSH [HD] 1033 Lactate(!): 2.5 Mildly elevated [HD] 1034 Creatinine(!): 2.03 Mild prerenal SHANON, given 1L IV fluids [HD] 1034 Ethanol: <10 [HD] 1034 WBC(!): 13.0 Mild leukocytosis [HD] 1034 Hemoglobin(!): 12.7 stable [HD] 1034 Platelet: 157 wnl [HD] 1111 CT CHEST/ABD/PELVIS W/ CONTRAST IMPRESSION: 1. Acute mildly displaced fracture of the right distal clavicle. See separately dictated CT of the thoracic and lumbar spine for spine findings. 2. Severely distended urinary bladder with an estimated volume of 3 L. Recommend decompression. 3. No evidence of visceral injury. 4. 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 5. Multiple indeterminate renal cystic structures. Recommend further nonemergent characterization with outpatient renal protocol MRI with and without contrast. 6. Large volume of stool within the colon. [HD] 1111 X-ray Foot Left (Routine) IMPRESSION: No definite acute left foot fracture or dislocation is identified. There is internal fixation of the left distal fibula. Degenerative changes of the midfoot and hindfoot. Sclerosis about the second metatarsal base may relate to a remote process versus summation artifact from overlying structures. Correlate with focal tenderness. Dorsal soft tissue swelling. No radiopaque foreign bodies. [HD] 1111 X-ray Ankle Right (Routine) IMPRESSION: Acute, comminuted and displaced fracture of [...] Degenerative changes of the hindfoot and midfoot. [HD] 1111 X-ray Knee Right AP+Lat+2 Oblique (Trauma) IMPRESSION: Acute, comminuted and displaced fracture of the right proximal fibula without definite intra-articular extension. The distal femur and tibial plateau appear intact. No joint effusion is seen. The joint spaces are maintained. There is no abnormal radiopaque foreign body. [HD] 1123 CT T-SPINE/L-SPINE W/O CONTRAST IMPRESSION: 1. Acute/subacute compression deformity of T8. 2. Subtle age indeterminate compression deformities of T6, T7, T9, T10, T11, and L2 with minimal height loss. [HD] 1345 CT HEAD W/O CONTRAST IMPRESSION: No acute intracranial abnormality. Stigmata of tuberous sclerosis. [HD] 1345 CT C-SPINE W/O CONTRAST IMPRESSION: No acute cervical spine fracture or traumatic malalignment. [HD] ED Course User Index [HD] Ana Paula Vyas MDNormalThe [facility] SystemExtra [place] [id number] Tube CollectedYesInvalid Interpretation CodeAshuer [facility]c Western MarylandComment on above:Performed By: #### [id number] #### Cruz [facility] [address], [place] [address]M AND Mervin [phone] Authentication Interface Message [facility]St[facility] Department of Surgery Division of Trauma Surgery, Acute Care Surgery, Critical Care, and Ramires TRAUMA SURGERY HISTORY AND PHYSICAL Alethea Lei [id number] BASIC INJURY INFORMATION: Level of activation: Category 2 Trauma Mode of transport: Ambulance: [facility] Mechanism of injury: Fall from ground level Complicating features: Not applicable Protective measures: Not applicable Date of Injury: 11/13/2024 Time of Injury: Unknown timing, arrived to OSH @ ~0540 Patient origin: Transfer from outside facility HISTORY OF PRESENT INJURY: Alethea Lei is a 54 year old male with PMH significant for autism, seizure disorder, OCD, CKD-stage 3, depression, hypothyroidism, BPH, urinary retention, and history of frequent falls presented to OSH ED s/p fall. He was reported to be walking with a caregiver in the group facility in which he resides when they heard a snap in his leg and he fell to the ground. Unknown headstrike but no LOC reported. He was noted to have obvious deformity to the RLE. Imaging completed at OSH revealed a proximal fibula fx as well as distal tib/fib fxs with small wound over the lateral aspect of the lower leg, concerning for open fracture. Patient was given ancef and RLE was splinted and patient was transferred to [facility] for further evaluation and management. On initial evaluation, patient intermittently yelling out it hurts. Patient unreliable and unable to provide significant information surrounding his injury and examination unreliable. Loss of consciousness: No Initial interventions: Fracture reduction/immobilization Hemodynamic status in ED: None applicable PRIMARY SURVEY: Airway: Intact Breathing: Normal Breath Sounds: Breath sounds equal bilaterally. Circulation: Pulses: Normal Skin: Normal skin color, texture, and turgor. No rashes or lesions. Disability: Pupils: PERRL GCS: Best Eyes: 4 Best Verbal: 4 Best Motor: 6 Total: 14 SECONDARY SURVEY: BP 116/82 Pulse 73 Temp 97.8 ???F (36.6 ???C) (Oral) Resp 14 SpO2 93% Neurologic: Awake, alert, intermittently verbal. Does not respond to orientation questions. Moves all extremities. Strength symmetrical, no sensory deficits. HEENT: Head: No lacerations, bone step-offs, or abrasions; midface stable to palpation Eyes: PERRL, conjunctiva/corneas without lesions. EOM intact. Ears: No hemotympanum Nose: Septum midline, no crepitus with motion. No bloody drainage. Throat: Oral cavity without trauma. Neck: No step-offs or deformities. No obvious tenderness to palpation. Chest: No crepitus or pain with palpation; no abrasions or contusions; no gross deformities Pulmonary: Breath sounds clear, symmetrical; no wheezes, rales, or consolidation Cardiovascular: Pulses: Bilateral radial, femoral, DP and PT pulses are normal. Abdomen: Non-distended; non-tender to palpation; no scars, lacerations, or contusions Rectal: No gross blood noted. Rectal tone not evaluated. Pelvis/Perineum: Pelvis is stable to palpation Musculoskeletal: Back/Spine: Thoracolumbar spinal column non-tender and No step-off or deformity noted Extremities: RUE: No obvious deformities. No tenderness to palpation. No lacerations, contusions or abrasions. Normal ROM. LUE: No obvious deformities. No tenderness to palpation. No lacerations, contusions or abrasions. Normal ROM. RLE: Obvious deformity to the lower leg/ankle with overlying abrasion and small punctate wound to the lateral aspect of the lower leg. Decreased ROM, limited by pain/injury. LLE: No obvious deformity to the the LLE. Tenderness to palpation over the medial and dorsal aspect of the foot at the base of the 1st and 2nd digits. There is associated ecchymosis and edema in this area. No additional lacerations or contusions. There are superficial abrasions over the anterior knee and lower leg which appear chronic. Normal ROM Additional exam findings: None PAST MEDICAL HISTORY: Autism Seizure disorder OCD CKD-stage 3 Depression Hypothyroidism BPH Urinary retention History of frequent falls PAST SURGICAL HISTORY: TURP 09/29/2024 Prior ORIF of the R ankle, year unknown PRE-ADMISSION MEDICATIONS: Amlodipine 10mg daily Atorvastatin 40mg daily Benztropine 1mg TID Clonidine 0.2mg TID Daily Feli daily Flomax 0.4mg daily Haloperidol 15mg BID Haloperidol 10mg QPM Levetiracetam 500mg BID Nebivolol 5mg daily Oxcarbazepine 600mg BID Calcium with Vitamin D 500-200 BID Paroxetine 40mg daily at bedtime Senna-Time 8.6mg daily at bedtime Anti-platelet use: None per chart review Anti-coagulant use: None per chart review ALLERGIES: Allergies[1] SOCIAL HISTORY: Social History[2] Living status: residential Primary language: Maltese Functional status: Partly dependent Impairments: Autism/Developmental Delay Assistive Devices Used: Unknown FAMILY HISTORY: Unable to obtain due to the patient' (more content not included)...NormalThe [facility] SystemHIV 1 and 2 Ab and HIV 1 p24 Ag panel IAon [id number] AG-AB [id number] [facility] SystemComment on above: Order Comment: HIV Information: ???[place] Rev. code 3701.243(E): This information has been disclosed to you from confidential records protected from disclosure by state law. ???You shall make no further disclosure of this information without the specific, written,and informed release of the individual to whom it pertains, or as otherwise permitted by state law.???A general authorization for the release of medical or other information is not sufficient for the purpose of the release of HIV test results or diagnoses.Result Comment: No laboratory evidence for HIV Infection. Negative result does not rule out acute HIV infection. If acute HIV infection is suspected, recommend ordering an HIV-1 RNA quanitification test.Performed By: #### [id number] #### [facility] [address] [place] [address], [id number] ACIDon [id number] LACT2.5 mmol/LHigh0.5-1.6The [facility] SystemComment on above:Order Comment: This test was developed, and its performance characteristics determined by the Department of Pathology of [facility]. It has not been cleared or approved by the FDA. This test is used for clinical purposes only.Performed By: #### LACT #### S [facility] [address] [place] [address], [id number] THROMBOPLASTIN TIMEon [id number] Coag (Bld) [Time]qYop15-07Tvm [facility] SystemComment on above:Performed By: #### PHOBlair CHJaguar, MG #### [facility] [address] [place] [address], [id number] TIME AND INRon [id number] Coag (PPP) [Relative time]1.12 {INR}High0.90-1.10The [facility] SystemComment on above: Performed By: #### PHOS, CH8, MG #### [facility] [address] [place] [address], [id number] Coag (PPP) [Time]12.5 sNormal9.7-12.9The [facility] SystemComment on above:Performed By: #### PHOS, CH8, MG #### [facility] [address] [place], [id number] & PTTon [id number] Coag (PPP) [Relative time]1.14 {INR}Invalid Interpretation CodeAnthony [facility] MarylandComment on above: Order Comment: specimens hemeolyzed, notified drea in er to recollect 11/13/2024 06:35:00 EDTResult Comment: INR results are specifically intended to assess patients stabilized on long-term Anticoagulation therapy suggested INR???s ???Less Intensive Anticoagulation??? 2.0 ??? 3.0 Conventional Range 3.0 ??? 4.5Performed By: #### [id number] #### Anthony [facility] [address], [place] [address]WG28.8 second(s)High9.4-12.5FThe University of [facility] Medical CenterComment on above:Order Comment: specimens hemeolyzed, notified drea in er to recollect 11/13/2024 06:35:00 EDTResult Comment: 15 days - 4 weeks 1 - 5 months 6 -11 months 1-5 years 6-10 years 11 -17 years Mean: 11.2 (9.5-12.6) Mean: 11.0 (9.7-12.8) Mean: 11.0 (9.8-13.0) Mean: 11.3 (9.9-13.4) Mean: 11.7 (10.0-14.6) Mean: 11.8 (10.0 - 14.1) Pediatric Reference ranges were obtained from a study by Buddy Chi et al. prepared from 1437 samples obtained at 7 different centers using the same coagulation reagent and instrumentation as [facility]. Currently there are no coagulation studies available worldwide for children to 14 days, andno normal ranges.Performed By: #### [id number] #### [facility] [address], [place] [address]DTT91.7 second(s)Ckkjrz96.1-36.5FThe [facility] of [facility] Comment on above:Order Comment: specimens hemeolyzed, notified drea in er to recollect 11/13/2024 06:35:00 EDTResult Comment: Parameter 15 days - 4 weeks 1 - 5 months 6 - 11 months 1 - 5 years 6 - 10 years 11 - 17 years PTT Mean: 35.4 (27.6-45.6) Mean: 33.5 (24.8-40.7) Mean: 32.4 (25.1-40.7) Mean: 31.6 (24.0-39.2) Mean: 31.6 (26.9-38.7) Mean: 31.0 (24.6-38.4) Pediatric Reference ranges were obtained from a study by Buddy Chi et al. prepared from 1437 samples obtained at 7 different centers using the same coagulation reagent and instrumentation as [facility]. Currently there are no coagulation studies available worldwide for children to 14 days, andno normal ranges. Heparin therapeutic range (represented by Anti-Factor Xa activity of 0.2 - 0.4 U/mL) corresponds to PTT of 56.6 - 109.0 sec.Performed By: #### [id number] #### [facility] [address], [place] [address]Gseqzjlp Noteson 55-07-3080Rfpkkahnjpkjc Authentication Interface Message TextCAT , [facility], [facility] EMS Pt transported from [facility] where he was found to have an open Tib/fib fracture. Pt lives in a [facility] [phone] d/t intellectual disability. Per EMS, there were caregivers at the OSH and they reported pt has frequent falls. SW contacted pt's guardian/mother Mila Lei [phone]. Pt's mother stated that she was not able to make it to the ED but that someone from the [facility] planned to present to the ED. Plan: pendingNoCity Hospital SystemTYPE AND SCREENon 76-00-3865WHS and Rh group Nom (Bld)Blood group A Rh(D) positiveNoCity Hospital SystemComment on above:Performed By: #### TS #### [facility] [address] [place] [address], [id number] INTNegativeNormalThe MetroHealth SystemComment on above:Performed By: #### TS #### [facility] [address] [place], [address]CKGRAFMK [id number] MetroHealth SystemComment on above:Performed By: #### TS #### [facility] [address] [place], [address]Rjftfqzlf Plan Noteon [id number] Authentication Interface Message TextPatient is getting ORIF and debridement of open R distal tib/fib fracture with Orthopedic team. CODE STATUS: Full Code. TESTING ADJUNCTS Labs: 13.0 12.7 / 157 / 38.0 CBC: 11/13/2024: 9:04 AM 143 110 30 / 130 4.6 24 2.03 BMP: 11/13/2024: 9:04 AM 1.12 / 12.5 <21 11/13/2024: 9:04 AM Lactate: 2.5 currently on mIVF LR at 75cc/hr EKG: EKG reviewed, no concerns Last formal echo: Date: ECHO: 09/2020 CONCLUSION: 1. Normal ventricular function. 2. Moderate concentric hypertrophy. RISK STRATIFICATION Patient's acute cardiac issues: None Operative Risk: Intermediate 1-5%: intraperitoneal, intrathoracic, carotid, head and neck, ortho, prostate MACE risk using RCRI: RCRI Predictors: no risk factors RCRI Risk Rates: no factors: 0.4% cardiac , nonfatal KS/cardiac arrest; 0.5% KS, pulm edema, Vfib, primary cardiac arrest, complete heart block Functional Status: not independent unable to determine >4 MET should not have further stress testing. <4 MET consider testing only if it will affect decision to operate CONSULTS Cardiology consult indicated for: not applicable EP consult indicated for implantable device: trauma EPconsult: not indicated Bleeding Risk: The patient is not on and AC/AP. Their risk of intraoperative/postoperative bleeding secondary to these medications should be evaluated by the operative surgeon and balanced with the urgency of the procedure. CONCLUSION: optimized for above named procedure Thanh Hyatt, DO Trauma Service [id number] [facility] SystemXR ANKLE RIGHT 3 VIEWSon [id number] ANKLE RIGHT 3 VIEWSEXAMINATION: XR ANKLE RIGHT 3 VIEWSPRO/RT 11/13/2024 10:09 AM CLINICAL HISTORY: fracture ASSOCIATED DIAGNOSIS: ORDERING PROVIDER: INGA SHELTON TECHNRILEY NOTE: COMPARISON: XRAY RIGHT LOWER EXTREMITY [...] the hindfoot and midfoot. Right ankle MACRO: NoneNormalThe MetroHealth SystemXR CLAVICLE RIGHT 2 VIEWSon [id number] CLAVICLE RIGHT 2 VIEWSEXAMINATION: XR CLAVICLE RIGHT 2 VIEWSPRO/RT 11/13/2024 09:25 PM CLINICAL HISTORY: fracture ASSOCIATED DIAGNOSIS: ORDERING PROVIDER: INGA MIDDLETON NOTE: COMPARISON: None IMPRESSION: Displaced fracture of right distal clavicle is noted. Distal fragment is inferior in relationship to the main proximal fragment which is superior and laterally displaced. Right clavicle MACRO: NoneNormalThe [facility] SystemXR FOOT LEFT 3 VIEWSon [id number] FOOT LEFT 3 VIEWSEXAMINATION: XR FOOT LEFT 3 VIEWSPRO/LT 11/13/2024 10:09 AM CLINICAL HISTORY: trauma, fall with swelling and tenderness ASSOCIATED DIAGNOSIS: ORDERING PROVIDER: YUDI APARICIO TECHNOLOGISTS NOTE: COMPARISON: None IMPRESSION: No definite acute left foot fracture or dislocation is identified. There is internal fixation of the left distal fibula. Degenerative changes of the midfoot and hindfoot. Sclerosis about the second metatarsal base may relate to a remote process versus summation artifact from overlying structures. Correlate with focal tenderness. Dorsal soft tissue swelling. No radiopaque foreign bodies. Left foot MACRO: NoneNormalThe [facility] CenterroUniversity [facility] SystemXR Foot 3+ Views Lefton [id number] Foot 3+ Views LeftExam Date/Time: 11/13/2024 07:27 EDT Reason for Exam: Pain, Traumatic Report IMPRESSION: NO ACUTE FRACTURE OR RECENT POSTTRAUMATIC COMPLICATION IDENTIFIED. EXAM: XR Foot 3+ Views Left DATE: 11/13/2024 7:03 AM CLINICAL HISTORY: Pain, Traumatic. COMPARISON: None available. TECHNIQUE: AP, lateral and oblique radiographs of the left foot were obtained. FINDINGS: Partially visualized plate and screw fixation of the distal left fibula and lateral malleolus with a screw fixing the left ankle mortise, which is otherwise unremarkable. There is no fracture, dislocation, worrisome bone destruction, radiodense foreign bodies, or other acute findings identified. Mild to moderate degenerative changes predominantly of the hindfoot. Ordering Provider: Jeny Paredes FINAL REPORT Dictated: 11/13/2024 8:57 am Milad Muir MD Signed (Electronic Signature): 11/13/2024 8:57 am Signed by: Milad Muir MD Transcribed by: MERI Technologist: [facility]XR Knee - right AP and Lateralon [id number] Study observation (narrative) [facility]XR TIBIA RIGHT 2 VIEWSon [id number] TIBIA RIGHT 2 VIEWSEXAMINATION: XR TIBIA RIGHT 2 VIEWSPRO/RT 11/13/2024 01:58 PM CLINICAL HISTORY: post splint ASSOCIATED DIAGNOSIS: ORDERING PROVIDER: INGA SHELTON TECHNOLOGISTS NOTE: COMPARISON: XRAY RIGHT LOWER EXTREMITY IMG IMPORT(KEYUR) 11/13/2024 5:53 AM IMPRESSION: Acute, displaced fractures of the right distal tibia/fibula and of the proximal fibula status post splinting without significant change in alignment. Right tibia and fibula MACRO: [facility]XR Tib/Fib Right 2 Viewon [id number] Tib/Fib Right 2 ViewExam Date/Time: 11/13/2024 06:26 EDT Reason for Exam: Pain, Traumatic Report IMPRESSION: DISTAL TIBIA AND SEGMENTAL AND FIBULAR FRACTURES, NOTED. EXAM: XR Tib/Fib Right 2 View DATE: 11/13/2024 5:45 AM CLINICAL HISTORY: Pain, Traumatic. Technologist Comments: Pt was being assisted to restroom then heard a pop and suddenly collapsed to the floor, c/o Rt lower leg pain, swelling and deformity noted, h/o Rt ankle sx. COMPARISON: None available. TECHNIQUE: AP and lateral radiographs of the right tibia and fibula were obtained. FINDINGS: A mildly comminuted predominantly spiral fracture of the distal third of the right tibial diaphysis with approximately 1 cm of lateral displacement, foreshortening, and 10 degrees of lateral apex angulation of the distal fracture fragment. Previous plate and screw fixation of the distal fibula and lateral malleolus with a screw fixing the ankle mortise, which are intact. However, a transverse fracture through the superior plate screw and mildly comminuted fractures of the right fibular neck are present. There is no other fracture, dislocation, worrisome bone destruction, or significant degenerative changes. The visualized joint spaces and ankle mortise are intact. Ordering Provider: Jeny Paredes FINAL REPORT Dictated: 11/13/2024 8:53 am Milad Muir MD Signed (Electronic Signature): 11/13/2024 8:53 am Signed by: Milad Muir MD Transcribed by: MERI Technologist: IndyOur Lady Of Mercy Hospital - AndersoneGFRon [id number] mL/min/1.73 m2Low>=59[facility] - AndersonComment on above:Performed By: #### [id number] #### [facility] [address] [place] [address]Voztjhjnvt Visit Summaryon [id number] Visit Summary Ambulatory Visit Summary ALETHEA LEI :1970 Visit Date:10/12/2024 Ambulatory Visit Instructions Your Diagnosis BPH with urinary obstruction Urinary retention Your Care Team Attending Physician - HERBER GAGNON MD Primary Care Physician - GO FOSTER DO This Is Your Medications List tamsulosin (Flomax 0.4 mg Cap) Contact prescribing physician if questions or concerns amlodipine (amLODIPine 10 mg Tab) atorvastatin (atorvastatin [...] Tab) senna (Senna-Time 8.6 mg oral tablet) Procedures Performed TURP - Transurethral resection of prostate (09/29/2024), Ankle fracture, Ankle fracture, Open reduction and internal fixation of fracture. Discharge Vitals Temperature (Temporal Artery) 36 ???C Heart Rate (Peripheral) 51 Respiratory Rate 16 Blood Pressure 125/76 Height 173 cm Height 68 in Weight 87.8 kg Weight 193.566 lb BMI 29.34 What to do next You Need to Schedule the Following Appointments Follow Up with ALLY ACKERMAN, JEOVANY CRAVEN When: Where: Medications What How Much When Instructions Unchanged tamsulosin (Flomax 0.4 mg Cap) 1 Capsules By Mouth Every day Unchanged amlodipine (amLODIPine 10 mg Tab) 1 Tablets By Mouth Every day Contact prescribing physician if questions or concerns Unchanged atorvastatin (atorvastatin 40 mg Tab) 1 Tablets By Mouth At bedtime Contact prescribing physician if questions or concerns Unchanged benztropine (benztropine 1 mg Tab) 1 Tablets By Mouth 3 times a day Contact prescribing physician if questions or concerns Unchanged calcium-vitamin D (Oyster Shell Calcium with Vitamin D 500 mg-200 intl units oral tablet)1 Tablets By Mouth 2 times a day Contact prescribing physician if questions or concerns Unchanged clonidine (cloNIDine 0.2 mg Tab) 1 Tablets By Mouth 3 times a day Contact prescribing physician if questions or concerns Unchanged haloperidol (haloperidol 5 mg Tab) 3 Tablets By Mouth 2 times a day Contact prescribing physician if questions or concerns Unchanged haloperidol (haloperidol 5 mg Tab) 2 Tablets By Mouth Once a day (in the evening) Contactprescribing physician if questions or concerns Unchanged levetiracetam (levetiracetam 500 mg Tab) 1 Tablets By Mouth 2 times a day Contact prescribing physician if questions or concerns Unchanged levothyroxine (levothyroxine 137 mcg (0.137 mg) Tab) 1 Tablets By Mouth Every day Contactprescribing physician if questions or concerns Unchanged multivitamin (Daily Feli oral tablet) 1 Tablets By Mouth Every day Contact prescribing physician if questions or concerns Unchanged nebivolol (Nebivolol 5 mg oral tablet) 1 Tablets By Mouth Every day Contact prescribing physician if questions or concerns Unchanged oxcarbazepine (oxcarbazepine 600 mg Tab) 1 Tablets By Mouth 2 times a day Contact prescribing physician if questions or concerns Unchanged paroxetine (paroxetine 40 mg Tab) 1.5 Tablets By Mouth At bedtime Contact prescribing physician if questions or concerns Unchanged senna (Senna-Time 8.6 mg oral tablet) 1 Tablets By Mouth Once a day (at bedtime) Contact prescribing physician if questions or concerns Allergies pertussis vaccines Problems Ongoing - Any problem that you are currently receiving treatment for. Acute kidney injury Autistic disorder BPH with urinary obstruction Chronic kidney disease stage 3 Depression Hypothyroidism OCD (obsessive compulsive disorder) Recurrent falls Seizure disorder Urinary retention Patient Survey You may receive a survey via text or e-mail asking about your office visit. Please share your experience with us by completing your survey. We appreciate your feedback and thank you for choosing us for your care. Education Materials Benign Prostatic Hyperplasia Benign prostatic hyperplasia (BPH) is an enlarged prostate gland that is caused by the normal agingprocess. The prostate may get bigger as a man gets older. The condition is not caused by cancer. The prostate is a walnut-sized gland that is involved in the production of semen. It is located in front of the rectum and below the bladder. The bladder stores urine. The urethra carries stored urine ou t of the body. An enlarged prostate can press on the urethra. This can make it harder to pass urine. The buildup of urine in the bladder can cause infection. Back pressure and infection may progress to bladder damage and kidney (renal) failur (more content not included)...NormalFisher [facility] MarylandUrology Office/Clinic Noteon [id number] Office/Clinic NoteUrology Office/Clinic Note Chief Complaint Follow up from TURP HPI Staff PO TURP 09/29/24, review pathology report Previous DX: urinary retention, bilateral renal cysts\ PVR: 428 ml History of Present Illness Tests reviewed: UA, op note, path I have reviewed the previous health record information and history for this patient from Dr. Gagnon. I have reviewed and verified the staff HPI to be accurate for this encounter. Review of Systems PHQ Score Initial Depression Screen Score: 0 SCORE ROS - Provider Constitutional: denies weight loss, denies hot flashes. Eyes: denies eye problems. Gastrointestinal: denies nausea, denies vomiting. Cardiovascular: denies chest pain or angina. Integumentary: no dryness Musculoskeletal: denies musculoskeletal symptoms. ENMT: denies otolaryngeal symptoms. Respiratory: no shortness of breath. Heme/Lymph: denies easy bleeding tendency, denies easy bruising tendency. Psychiatric: no confusion, no anxiety. Genitourinary: See HPI. Physical Exam Vitals & Measurements T: 36 ???C(Temporal Artery) HR: 51(Peripheral) RR: 16 BP: 125/76 HT: 68 in HT: 173 cm WT: 87.8 kg WT: 193.566 lb BMI: 29.34 General Appearance: alert, no distress, well nourished, well developed adult. Assessment/Plan Pt here with an aide from the facility but she is not pt's primary caregiver. 1. BPH with urinary obstruction (N40.1: Benign prostatic hyperplasia with lower urinary tract symptoms) S/p TURP, removal of urolift clips 09/29/24 - Neg path, 3 g removed. UA shows moderate blood and small leuks. Expected after procedure, will cont to monitor for resolution with time and healing. He is voiding. Denies gross hematuria. No pain with urination. Explained that his bladder must be retrained after years of obstruction from prostate and dysfunctional voiding. Follow up 3 mos or sooner if needed. Pt understands and agrees with plan. -Start timed voids q2-3hr 2. Urinary retention (R33.9: Retention of urine, unspecified) - 08/16/24 Pt presented to [facility] ER for altered mental status and positive urine culture (unable to find). K+ was also 6.5 in ER as well as elevated BUN (50) and Cr (2.42). Pt was started in IV Rocephinand treated for high K+ and transferred to [facility] for admission and nephrology consult. - 08/17/24 ZAIRE - urinary bladder moderately distended with a volume of 726ml with slight wall thickening, bilateral jets are visualized. Bladder scan showed >900ml, Martini catheter placed with significant difficulties, 1200ml urine drained. - PVR 482 cc, pt felt he emptied completely. See #1. Patient status post transurethral resection of the prostate. For the case it was done in a known cystoscopy room and left of the tissue was lost due to inadequate suction so 3 g of tissue resected itis not accurate. Patient is doing well he is voiding without difficulty. PVR today is 400 cc. I encourage double timed voiding to ensure complete emptying. We will obtain a BMP before next visit. Follow-up with me in 3 months. Follow-up With When Contact Information ALLY ACKERMAN, HERBER, YANDELL Additional Instructions: 3 mos with PVR Patient Education Benign Prostatic Hyperplasia IPriscila, personally scribed for Dr. Herber Gagnon on 10/12/2024 10:37:47. . Portions of this record may have been created with voice recognition artificial intelligence software, specifically Optimal Blue, Micromuscle and or Data Stream CBOT. Substitutions may have occurred due to the inherent limitations of voice recognition and artificial intelligence software. Documentation recorded by the scribe, Priscila Dong, accurately reflects the services(s) I performed and decisions made by me. Authenticated by Dr. Carmela Sawyer on 10/12/2024 10:47:51. Problem List/Past Medical History Ongoing Acute kidney injury Autistic disorder BPH with urinary obstruction Chronic kidney disease stage 3 Depression Hypothyroidism OCD (obsessive compulsive disorder) Recurrent falls Seizure disorder Urinary retention Historical No qualifying data Procedure/Surgical History TURP - Transurethral resection of prostate (09/29/2024), Ankle fracture, Ankle fracture, Open reduction and internal fixation of fracture. Medications amLODIPine 10 mg Tab, 10 mg= 1 tab(s), Oral, Daily atorvastatin 40 mg Tab, 40 mg= 1 tab(s), Oral, Bedtime benztropine 1 mg Tab, 1 mg= 1 tab(s), Oral, TID cloNIDine 0.2 mg Tab, 0.2 mg= 1 tab(s), Oral, TID Daily Feli oral tablet, 1 tab(s), Oral, Daily Flomax 0.4 mg Cap, 0.4 mg= 1 cap(s), Oral, Daily haloperidol 5 mg Tab, 15 mg= 3 tab(s), Oral, BID haloperidol 5 mg Tab, 10 mg= 2 tab(s), Oral, qPM levetiracetam 500 mg Tab, 500 mg= 1 tab(s), Oral, BID levothyroxine 137 mcg (0.137 mg) Tab, 137 mcg= 1 tab(s), Oral, Daily Nebivolol 5 mg oral tablet, 5 mg= 1 tab(s), Oral, Daily oxcarbazepine 600 mg Tab, 600 m (more content not included)...[facility] Ment[facility] HospitalComment on above:Result Comment: Electronically Signed By: HERBER GAGNON MD\.br\Date and Time Signed: 10/12/24 10:50 EDT\.br\Electronically Co-Signed By: Priscila Dong\.br\Date and Time Co- Signed: 10/12/24 10:38 EDTCNPNon [id number] (PSYRMN) ALETHEA LEI ([id number]) 1970 M Date Time Provider Department 10/11/24 SUMEET CALI PSYRMN During your visit today, we recorded the following information about you: Mariana Fair 10/11/2024 9:27 AM Signed Medication discharged report from [facility] was scanned to the patients chart and sent via e-mail to the covering provider for Dr. Aldana ( Dr. Call) and also cc . SG Allergies As of Date: 10/11/2024 Noted Allergy Reaction ABILIFY (ARIPIPRAZOLE) 02/01/2008 1 - Mental Status Change Comments: agressiveness PERTUSSIS VACCINES 12/13/2007 Date Reviewed: 07/08/2022 Reviewed by: Ambrocio Romero MD - Fully Assessed Prescriptions as of 10/11/2024 - alendronate (FOSAMAX) 70 mg tablet Take [...] evening, and 3 tablets at bedtime - ddvanbl-kuahzckzu-dpxggyo D3 (OYSTER SHELL CALCIUM-VITAMIN D) 500 mg(1,250mg) [...] tablet TID Problem List As Of Date 10/11/2024 Noted Resolved TUBEROUS SCLEROSIS [Q85.1] 02/02/2008 HEMANGIOMA SKIN [D18.01] 02/02/2008 SPECIAL SYMPTOM NEC/NOS [UVR3587] 02/03/2008 FRONTAL LOBE SYNDROME [F07.0] 08/02/2008 Autism spectrum disorder [F84.0] 08/02/2008 Impulse control disorder [F63.9] 08/16/2012 Intellectual disability [F79] 01/31/2021 Encounter Status:Closed by MARIANA FAIR on 10/11/24[facility] Reporton [id number] Pathology Report[address] [place] [address]- Surgical Pathology Report Collected Date/Time: 09/29/2024 12:18 EDT Pathologist: Gael ACKERMAN PhD, Guille Gonzalez Received Date/Time: 09/29/2024 13:41 EDT ALLY ACKERMAN, ALLY ACKERMAN, HERBER CRAVEN 07 Surgical Pathology Report - 10/03/2024 15:21 EDT - Auth (Verified) Final Diagnosis PROSTATE CHIPS, TRANSURETHRAL RESECTION: - BENIGN PROSTATIC TISSUE WITH PATCHY CHRONIC ACTIVE INFLAMMATION. - CHRONIC ACUTE CYSTITIS WITH CYSTITIS CYSTICA. (Electronic Signature) Guille Mayo MD PhD 10/03/2024 15:21 Clinical Information Urinary retention Pre-Op Diagnosis: Urinary retention Procedure: Cystoscopy, turp Post-Op Diagnosis: BPH with LUTS Specimen(s) Received Prostate chips Gross Description Received in formalin, labeled with patient name, number and prostate chips. The specimen consists of multiple segments of pink-hart rubbery tissue which in aggregate measure 4 x 3.3 x 2 cm and weighs 3 g. The specimen is entirely submitted in 5 cassettes. DC:NICOLE Microscopic Description Microscopic examination performed unless gross only specified. Quality was accessed and acceptable. This report was transcribed using voice recognition technology and might contain unintended computerized appliance servicer errors.NormalOur Lady Of Mercy Hospital - AndersonComment on above:Performed By: #### [id number] #### [facility] [address], [place] [address]MNJng 78-34-1077Pxzld gap [Moles/Vol]12 mmol/LNormal6-16[facility] AndersonComment on above:Performed By: #### [id number] #### [facility] [address], [place] [address]IJP/Creat Ratio13 No QutfpCfiwna05-31NzrcupOur Lady Of Mercy Hospital - AndersonComment on above:Performed By: #### [id number] #### [facility] [address], [place] [address]Rcldrdn [Mass/Vol]8.7 mg/dLLow8.9-11.1FThe University of Toledo Medical CenterComment on above:Performed By: #### [id number] #### [facility] [address], [place] [address]Liskyyom [Moles/Vol]111 mmol/ULnklcl190-161QoycbaOur Lady Of Mercy Hospital - AndersonComment on above:Performed By: #### [id number] #### [facility] [address], [place] [address]UE8 [Moles/Vol]22 mmol/OBdcmji99-35IxgpmlOur Lady Of Mercy Hospital - Anderson Comment on above:Performed By: #### [id number] #### [facility] [address], [place] [address]Fefsrcdetm [Mass/Vol]1.5 mg/dLHigh0.5-1.3FThe University of Toledo Medical CenterComment on above:Performed By: #### [id number] #### [facility] [address], [place] [address]Nxmnssg [Mass/Vol]91 mg/mKYuofuf08-742TbwiugOur Lady Of Mercy Hospital - AndersonComment on above:Performed By: #### [id number] #### [facility] [address], [place] [address]Hscyajsxo [Moles/Vol]4.2 mmol/LNormal3.5-5.3FThe University of Toledo Medical CenterComment on above:Performed By: #### [id number] #### [facility] [address], [place] [address]Wehppu [Moles/Vol]141 mmol/TWoxmqv320-857UqerzaOur Lady Of Mercy Hospital - AndersonComment on above:Performed By: #### [id number] #### [facility] [address], [place] [address]Oynh nitrogen [Mass/Vol]19 mg/dLNormal5-21[facility] - AndersonComment on above:Performed By: #### [id number] #### [facility] [address] [place] [address]Fju & Hgbon 63-99-6113Jxbcnmdwit (Bld) [Volume fraction]33.6 % Low37.7-49.0[facility] - AndersonComment on above:Performed By: #### [id number] #### [facility] - [facility] [address] [place] [address] 618[address]Jvybsqmcok (Bld) [Mass/Vol]11.4 g/dLLow13.5-17.5FThe University of Toledo Medical CenterComment on above:Performed By: #### [id number] #### [facility] [address] [place] [address] 39663Tlvypejlm Clinical Summaryon [id number] Clinical SummaryInpatient Clinical Summary [address] [address] Clinical Summary Person Information: Name: ALETHEA LEI Age: 54 Years : 1970 Sex: Male PCP: GO FOSTER DO Marital Status: Single Race: White Ethnicity: Non- or Language: Maltese Visit Id: Visit Reason: URINARY RETENTION Speciality: Acuity: Enc Type: Outpatient in a Bed Med Service: Surgery Arrival: 09/29/2024 07:41:31 Discharge: Dispo Type: Address: [address] [id number] Provider Notes: Diagnosis: 2:S/P TURP; 3:Severe intellectual [...] 500 mg-200 intl units oral tablet) 1 TabletsBy Mouth 2 times a day. clonidine (cloNIDine [...] 1 month With: Address: When: GO [place]ER [place] [address] Business (1) Type Location Start Finish [facility] Office Visit [facility] KVNG Leal 10/12/2024 10:00 AM 10/12/2024 10:15 AM Confirmed Patient Education Information: Transurethral Resection of the Prostate; Acute Urinary Retention, Male, Bdwu-xg-Wnbn; Acute UrinaryRetention, Male, Vnck-uc-RgxlGiblfjEbsgmnMercy Health West HospitalInpatient Patient Summaryon [id number] Patient Summary Inpatient Patient Summary [place] [address] Patient Discharge Instructions PERSON INFORMATION Name: ALETHEA [...] following list of follow-up instructions, prescriptions, and patienteducation materials: PATIENT FOLLOW-UP INFORMATION Diet: Regular Discharge [...] degrees, Redness, swelling, or pus at operative site,Severe pain at the operative site, Persistent vomiting [...] 1 month With: Address: When: GO FOSTER [address] [place] [address] Business (1) In the event that this physician does not participate in your insurance network, please consult with your insurance company to find a nearby participating provider. Type Location Start Finish [facility] Office Visit [facility] KVNG Leal 10/12/2024 10:00 AM 10/12/2024 10:15 AM Confirmed Comment: QUIQUE Perez GUY, have received the attached patient education materials/instructions and have verbalized understanding: Patient Signature Date [...] 500 mg-200 intl units oral tablet) 1 TabletsBy Mouth 2 times a day. Last Dose: [...] Tablets By Mouth every day. Last Dose: (more content not included)...[facility] HospitalIn[facility] Patient SummaryInpatient Patient Summary ALETHEA LEI :1970 Visit Date:09/29/2024 [...] HERBER GAGNON MD Where: [facility] [address] [place] [address]- New Follow Up Appointments after Discharge Follow Up with HERBER GAGNON When: Comments: 1 month Follow Up with GO FOSTER When: In 0 days Where: [address] [place] [address]- Business (1) Medications What How Much When [...] Vitamin D 500 mg-200 intl units oral tablet)1 Tablets By Mouth 2 times a day [...] pertussis vaccines Problems Ongoing (more content not included)...[facility] Interdisciplinary Note - Case Manageron [id number] Note - Case ManagerInterdisciplinary Note - Engineer Sergeant CRM to room 302 Patient is awake and alert this Am. Patient states to CRM I want to go see my friend at [facility] . Patient is from [facility] and will return at [place]. [place] with transport patient, call [phone] ext [phone] to set up transport. PCP, DME and insurance confirmed with prior CRM. No Marroquin form completed, Patient is unable to sign but copy provided. Patient does not have family presentin room at this time. CRM will call them later to update. Patient came in with urinary retention and had a TURP on 09/29. Patient has a Martini intact. Patient is assigned to Dr Henson and hospitalist Chacha STEELE. Patient will DC back to [facility] and they will need called for transport. Patient was provided CRM contact, white board updated. CRM following Possible DC todayNoSouthwest General Health CenterComment on above:Result Comment: Electronically Signed By: Rocío Page\.br\Date and Time Signed: 09/30/24 08:27 EDTMain OR Intraoperative Recordon [id number] OR Intraoperative RecordMain OR Intraoperative Record IntraOp Document Type FT Summary Primary Physician: HERBER GAGNON MD Finalized Date/Time: 09/30/24 15:06:18 Pt. Name: ALETHEA LEI/Sex: 1970 Male Med Rec #: [id number] Physician: HERBER GAGNON MD Financial #: [id number] Pt. Type: O Room/Bed: / Admit/Disch: 09/29/24 07:41:31 - Institution: Case Times FT Entry 1 Patient Times In Room 09/29/24 11:34:00 Out Room 09/29/24 12:38:00 Procedure Times Start 09/29/24 11:52:00 Stop 09/29/24 12:30:00 Anesthesia Times Start 09/29/24 11:34:00 Stop 09/29/24 12:38:00 Last Modified By: Carlos ATKINSON, Michelle Redman 09/29/24 12:39:34 Case Attendance FT Entry 1 Entry 2 Entry 3 Case Attendee Petra Ortega CRNA, MD, Anny RN, Luz Maria CRAVEN Role Performed SUPERVISOR BLUEPRINTING AND PHOTOCOPY Surgeon - Primary Food Safety Field Specialist - Primary Time In 09/29/24 11:34:00 09/29/24 11:50:00 09/29/24 11:34:00 Time Out 09/29/24 12:38:00 09/29/24 12:30:00 09/29/24 11:40:00 Procedure CYSTOSCOPY TURP(.) CYSTOSCOPY TURP(.) CYSTOSCOPY TURP(.) Comments DR. WAKEFIELD SUPERVISING Last Modified By: Carlos RN, Michelle Gonzalez RN, Michelle Gonzalez RN, Michelle Redman 09/29/24 12:46:13 09/29/24 12:55:58 09/29/24 12:46:13 Entry 4 Entry 5 Case Attendee Rehana Coelho RN, Michelle Redman Role Performed Scrub - Primary Food Safety Field Specialist - Relief Time In 09/29/24 11:34:00 09/29/24 [...] Time Out Petra Ortega CRNA, Given Participants HERBER GAGNON MD, Crosby RN, Laquita Marcus Sydney A Time Out [...] and tissue Entry 1 Skin Integrity Intact, [place], Warm, & Skin Abnormality No Dry Outcomes [...] in Stirrup Positioning Device (more content not included)...[facility] HospitaleGFRon [id number] mL/min/1.73 m2Low>=59[facility] AndersonComment on above:Performed By: #### [id number] #### [facility] [address], [place] [address]Uvsxusqnrdwrfxdyu Note - Case Manageron 09-29-2024 Interdisciplinary Note - Case ManagerInterdisciplinary Note - Engineer Sergeant Patient resting bed with eyes closed. Mom at bedside and answered all questions for writer technical publications. Patientis from [facility] and will return at [place] with transport patient, call [phone] ext [phone] to set up transport. PCP, DME and insurance confirmed. Denies any dc needs. White board updated. [place] does not use careport. Faxed patient updates and aware patient may dc tomorrow.[facility] HospitalComment on above:Result Comment: Electronically Signed By: Graciela Latham\.br\Date and Time Signed: 09/29/24 16:53 EDTMain OR Intraoperative Recordon [id number] OR Intraoperative RecordMain OR Intraoperative Record IntraOp Document Type FT Summary Primary Physician: HERBER GAGNON MD Finalized Date/Time: 09/29/24 13:03:56 Pt. Name: ALETHEA LEI/Sex: 1970 Male Med Rec #: [id number] Physician: HERBER GAGNON MD Financial #: [id number] Pt. Type: A Room/Bed: Admit/Disch: 09/29/24 07:41:31 - Institution: Case Times FT Entry 1 Patient Times In Room 09/29/24 11:34:00 Out Room 09/29/24 12:38:00 Procedure Times Start 09/29/24 11:52:00 Stop 09/29/24 12:30:00 Anesthesia Times Start 09/29/24 11:34:00 Stop 09/29/24 12:38:00 Last Modified By: Carlos ATKINSON, Michelle Redman 09/29/24 12:39:34 Case Attendance FT Entry 1 Entry 2 Entry 3 Case Attendee Petra Ortega CRNA, MD, Anny RN, Luz Maria CRAVEN Role Performed SUPERVISOR BLUEPRINTING AND PHOTOCOPY Surgeon - Primary Food Safety Field Specialist - Primary Time In 09/29/24 11:34:00 09/29/24 11:50:00 09/29/24 11:34:00 Time Out 09/29/24 12:38:00 09/29/24 12:30:00 09/29/24 11:40:00 Procedure CYSTOSCOPY TURP(.) CYSTOSCOPY TURP(.) CYSTOSCOPY TURP(.) Comments DR. WAKEFIELD SUPERVISING Last Modified By: Carlos RN, Michelle Gonzalez RN, Michelle Gonzalez RN, Michelle Redman 09/29/24 12:46:13 09/29/24 12:55:58 09/29/24 12:46:13 Entry 4 Entry 5 Case Attendee Rehana Coelho RN, Michelle Redman Role Performed Scrub - Primary Food Safety Field Specialist - Relief Time In 09/29/24 11:34:00 09/29/24 11:40:00 Time Out 09/29/24 12:38:00 09/29/24 12:38:00 Procedure CYSTOSCOPY TURP(.) CYSTOSCOPY TURP(.) Comments Last Modified By: Carlos RN, Michelle Gonzalez RN, Michelle Redman 09/29/24 [...] Time Out Petra Ortega CRNA, Given Participants NKHERBER CHERRY MD, Crosby RN, Laquita Marcus Sydney A Time Out [...] and tissue Entry 1 Skin Integrity Intact, [place], Warm, & Skin Abnormality No Dry Outcomes [...] in Stirrup Positioning Device (more content not included)...[facility] HospitalMain OR PACU I Recordon 09-29-2024 Main OR PACU I RecordMain OR PACU I Record PACU Phase I Document Type FT Summary Primary Physician: HERBER GAGNON MD Finalized Date/Time: 09/29/24 14:44:44 Pt. Name: ALETHEA LEI /Sex: 1970 Male Med Rec #: [id number] Physician: HERBER GAGNON MD Financial #: [id number] Pt. Type: O Room/Bed: [place] [address] Admit/Disch: 09/29/24 07:41:31 - Institution: Case Times [...] individualized perioperative plan of care The patient's rightto privacy is maintained The patient's value system, [...] with or improved from baseline levels established preoperativelyThe patient's cardiovascular status is consistent with or improved from baseline levels established preoperatively The patient's cardiovascular status is consistent with or improved from baseline levels established preoperatively The patient demonstrates and/or reports adequate pain control throughout the perioperative period The patient received appropriate medication(s), safely administered during the perioperativeperiod Acuity Level PACU I FT Entry 1 Start Time 09/29/24 12:41:00 Stop Time 09/29/24 13:15:00 Acuity Level Acuity Level I Last Modified By: Jacqueline Phillips I 09/29/24 14:44:39 Finalized By: Jacqueline Phillips I Document Signatures Signed By: Jacqueline Phillips I 09/29/24 14:44NoSouthwest General Health CenterOperative Reporton [id number] ReportOperative Report Patient: ALETHEA LEI Age: 54 years Sex: Male : 1970 Associated Diagnoses: None Author: HERBER GAGNON MD Procedure SURGEON: Herber Gagnon MD PREOPERATIVE DIAGNOSIS: BPH with LUTS POSTOPERATIVE DIAGNOSIS: Same PROCEDURE: Cystoscopy, transurethral resection of prostate- cpt 51111 FINDINGS: Bilobar hyperplasia of the prostate resected to create wide open with UroLift clips suctioned out ANESTHESIA: General INTRAVENOUS FLUIDS: See anesthesia records ESTIMATED BLOOD LOSS: 10cc TUBES AND DRAINS: 24 Jordanian three-way Martini catheter with 30 cc in balloon SPECIMENS: Prostate chips COMPLICATIONS: None INDICATIONS FOR PROCEDURE: Patient is a 54-year-old male with BPH with LUTS who was noted to have retention of 1 L. Patient has developmental delay and I discussed with mom that retention is likely secondary to BPH and we willproceed with a TURP to clear any bladder [...] we sequentially dilated the ureteral orifice with Geraldine dilators up to a 30 Jordanian. We then went in with the Storz [...] Chips were then evacuated out using the Sweeten evacuator. Hemostasis was persistent. Ureteral orifices were intact verumontanum was intact. A 24 Jordanian three-way Martini catheter was then placed at the conclusion of the procedure with initiation of continuous bladder irrigation. This concluded the procedure. Patient was then awakened anesthesia and transferred to PACU in stable condition. PLAN: Admission overnight. Will remove catheter in a.m. for voiding trialNormal [facility] AndersonComment on above:Result Comment: Electronically Signed By: ALLY ACKERMAN, HERBER\.farhat\Date and Time Signed: 09/29/24 16:36 EDTCBC w/ Auto Diffon [id number] Absolute0.0 E9/LNormal0.0-0.2FThe University of Toledo Medical CenterComment on above:Performed By: #### [id number] #### [facility] [address], [place] [address]Rbqyhmjik/100 WBC (Bld)0.5 %Normal0.0-2.0[facility] - AndersonComment on above:Performed By: #### [id number] #### [facility] [address], [place] [address]Xfs Absolute0.3 E9/LNormal0.0-0.5FThe University of [facility] Center Comment on above:Performed By: #### [id number] #### [facility] [address], [place] [address]Ppcdqwzbfqk/100 WBC (Bld)3.1 %Normal0.0-8.0[facility] - AndersonComment on above:Performed By: #### [id number] #### [facility] [address], [place] [address]Gulrghgwogf distribution width (RBC) [Ratio]13.6 %Normal 10.9-14.2FThe University of Toledo Medical CenterComment on above:Performed By: #### [id number] #### [facility] [address], [place] [address]Unpwsjumnr (Bld) [Volume fraction]35.0 %Low37.7-49.0[facility] - AndersonComment on above:Performed By: #### [id number] #### [facility] [address], [place] [address]Byozxluehl (Bld) [Mass/Vol]12.1 g/dLLow13.5-17.5FThe University of Toledo Medical CenterComment on above:Performed By: #### [id number] #### [facility] [address], [place] [address]Kmxjg Absolute1.8 E9/LNormal1.0-4.0[facility] Comment on above:Performed By: #### [id number] #### [facility] [address], [place] [address]Eqicyyglsju/100 WBC (Bld)21.0 %Vegeqc39.0-50.0[facility] - AndersonComment on above:Performed By: #### [id number] #### [facility] [address], [place] [address]MZB (RBC) [Entitic mass]34.5 skGiww92.0-34.0[facility] AndersonComment on above:Performed By: #### [id number] #### [facility] [address], [place] [address]CAGY (RBC) [Mass/Vol]34.6 g/eVElriwx16.4-36.0[facility] AndersonComment on above:Performed By: #### [id number] #### [facility] [address] [place] [address]DNL (RBC) [Entitic vol]99.8 fFSdlpth89.0-100.0[facility] AndersonComment on above:Performed By: #### [id number] #### [facility] [address] [place] [address]Acqo Absolute0.9 E9/LNormal0.2-1.0[facility] Comment on above:Performed By: #### [id number] #### [facility] [address] [place] [address]Uiqneqpdz/100 WBC (Bld)10.9 %Normal4.0-14.0[facility] AndersonComment on above:Performed By: #### [id number] #### [facility] [address] [place] [address]Gnsbvl Absolute5.5 E9/LNormal2.0-7.5FThe [facility] of [facility] Center Comment on above:Performed By: #### [id number] #### [facility] [address] [place] [address]Cvvmuv Auto64.5 %Nsuyxm04.0-75.0[facility] Comment on above:Performed By: #### [id number] #### [facility] [address] [place] [address]Dfjihivn162.0 E9/XPodneu647.0-500.0[facility] Comment on above:Result Comment: Peripheral smear review performed.Performed By: #### [id number] #### [facility] [address] [place] [address]Cqcdmkca mean volume (Bld) [Entitic vol]8.8 fLNormal6.4-10.8 [facility] AndersonComment on above:Result Comment: Peripheral smear review performed.Performed By: #### [id number] #### [facility] [address], [place] [address]BCM3.5 E12/LLow4.3-5.9[facility] - AndersonComment on above:Performed By: #### [id number] #### [facility] [address], [place] [address]RXZ6.5 E9/LNormal4.0-11.0[facility] AndersonComment on above:Performed By: #### [id number] #### [facility] [address], [place] [address]Mueifwb Office/Clinic Noteon [id number] Office/Clinic NoteUrology Office/Clinic Note Chief Complaint pt here for urnary retention HPI Staff New Pt. Pt is here today due to urinary retention ZAIRE 08/17/24 [facility] [place] has folley cath. 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 Pt resides at [facility] ([phone]) and has a history of MRDD and tuberosclerosis. His POA is his mother aMrlin ([phone] or [phone]). Pt present today with transporter. Unableto obtain consent as patient does have paperwork with him deeming him incompetent to sign medical paperwork/consent. 1. Urinary retention (R33.9: Retention of urine, unspecified) 08/14/24 cx - >100k mixed skin contaminants 08/17/24 cx - 50k mixed skin contaminants 08/16/24 Pt presented to [facility] ER for altered mental status and positive urine culture (unable to find). K+ was also 6.5 in ER as well as elevated BUN (50) and Cr (2.42). Pt was started in IV Rocephin and treated for high K+ and transferred to [facility] for admission and nephrology consult. 08/17/24 ZAIRE [...] of office. She reports that when patient iswith her he never gets the urge to urinate and she has to tell him to use the restroom every few hours. Marlin would like to proceed with cystoscopy under anesthesia due to patient's baseline mental status. Will discuss with Dr. Henson and keep catheter in place until cysto. Pt's transporter did say that [facility] does not change catheters. The risks and benefits for cystoscopy have been discussed. The risks include bleeding, infection, and irritation of the bladder and urinary channel, among others. The patient, after being informed ofprocedural details and after questions have been answered, wishes to proceed. Full informed consenthas been obtained. Will order Mac anesthesia. -Schedule cystoscopy with Dr. Henson -Martini catheter change tentatively scheduled for 2 weeks in [place] office (closer to patient) if unable to schedule cystoscopy in next 2-3 weeks -Aggressive bowel management -F/U pending cystoscopy Ordered: Body Mass Index (BMI) documented 3008F Current tobacco non-user 1036F Depression Screening Negative 3352F E&M of New Patient High 60-74 Min 39417 Influenza immunization status assessed 1030F Medication list [...] E&M of New Patient High 60-74 Min 68691 Follow-up With When Contact Information ALLY ACKERMAN, JEOVANY CRAVEN Additional Instructions: schedule cystoscopy Patient Education Acute Urinary Retention, Male Total time spent reviewing previous notes/results/external documents, preparing the chart, conducting the encounter with the patient and family, ordering tests/medications, and documenting the encounter was 60 minutes. Problem List/Past Medical History Ongoing Acute kidney injury Autistic disorder Chronic kidney disease stage 3 Depression Hypoth (more content not included)...[facility] HospitalComment on above:Result Comment: Electronically Signed By: Lily LEMUS, Ashanti Redman\.br\Date and Time Signed: 09/08/24 09:31 EDTAlbumin Levelon 07-57-9072Xgjfynl [Mass/Vol] 3.5 g/dLNormal3.5-5.7The [facility] Physician GroupComment on above:Result Comment: PERFORMED BY: [address] [place] [address] PATHOLOGIST HEARING IMPAIRED TEACHER KARLA FAIR M.D.Performed By: #### BMP, CBC #### [facility] [address] [place] [address] USABasic Metabolic Panelon 00-87-0596Ljuth gap [Moles/Vol] 11.5 mmol/LNormal6.0-15.0The [facility] Physician [facility] HospitalComment on above:Performed By: #### MG, ALB, CBC, BMP #### [facility] [address] [place] [address] USACalcium [Mass/Vol]7.7 mg/dLLow8.6-10.3The [facility] Physician GroupComment on above:Performed By: #### MG, ALB, CBC, BMP #### [facility] [address] [place] [address] USAChloride [Moles/Vol]107 mmol/ODobnwi33-844Xhd [facility] Physician GroupComment on above:Performed By: #### MG, ALB, CBC, BMP #### [facility] [address] [place] [address] USACO2 [Moles/Vol]27.3 mmol/KChmfrb70.0-31.0The [facility] Physician GroupComment on above:Performed By: #### MG, ALB, CBC, BMP #### [place] [address] USACreatinine [Mass/Vol]1.47 mg/dLHigh0.70-1.30The [facility] Physician GroupComment on above:Performed By: #### MG, ALB, CBC, BMP #### [place] [address] USACreatinine Clr Calc Bahvhdnr41.19NormalThe [facility] Physician GroupComment on above:Performed By: #### MG, ALB, CBC, BMP #### [place] [address] USAGFR/1.73 sq M.predicted MDRD (S/P/Bld) [Vol rate/Area] 55.634 mL/min/{1.73_m2}NormalThe [facility] Physician GroupComment on above: Performed By: #### MG, ALB, CBC, BMP #### [place] [address] USAGlucose [Mass/Vol]112 mg/cVCheg90-389Dvx [facility] Physician GroupComment on above:Result Comment: Random Glucose Reference Range is dependent on time and content of last meal. Glucose of more than 200 mg/dL in a nonstressed, ambulatory subject supports the diagnosis of Diabetes Mellitus. ADA recommended reference rangePerformed By: #### MG, ALB, CBC, BMP #### [place] [address] USAPotassium [Moles/Vol]3.8 mmol/LNormal3.5-5.1The [facility] Physician GroupComment on above:Performed By: #### MG, ALB, CBC, BMP #### [place] [address] USASodium [Moles/Vol]142 mmol/WQflrxu880-901Iou [facility] Physician GroupComment on above:Performed By: #### MG, ALB, CBC, BMP #### [place] [address] USAUrea nitrogen [Mass/Vol]20 mg/dLNormal7-25The [facility] Physician GroupComment on above:Performed By: #### MG, ALB, CBC, BMP #### [place] [address] USAComplete Blood Count Auto Diffon [id number] (Bld) [#/Vol]0.0 10*3/uLNormal0.0-0.2The [facility] Physician GroupComment on above: Order Comment: only got the mint in micro.Result Comment: PERFORMED BY: [place] [address] PATHOLOGIST HEARING IMPAIRED TEACHER KARLA FAIR M.D.Performed By: #### BMP, CBC #### [place] [address] USABasophils/100 WBC (Bld)0.3 %Normal.The [facility] Physician GroupComment on above:Order Comment: only got the mint in micro.Performed By: #### BMP, CBC #### [place] [address] USAEosinophils (Bld) [#/Vol]0.2 10*3/uLNormal0.0-0.45The [facility] Physician GroupComment on above:Order Comment: only got the mint in micro.Performed By: #### BMP, CBC #### [place] [address] USAEosinophils/100 WBC (Bld)3.1 %Normal.The [facility] Physician GroupComment on above:Order Comment: only got the mint in micro. Performed By: #### BMP, CBC #### [place] [address] USAErythrocyte distribution width (RBC) [Ratio]13.3 %Normal 12.0-14.8The [facility] Physician GroupComment on above:Order Comment: only got the mint in micro.Performed By: #### BMP, CBC #### [place] [address] USAHematocrit (Bld) [Volume fraction]32.0 %Low38.8-50.0The [facility] Physician GroupComment on above:Order Comment: only got the mint in micro.Performed By: #### BMP, CBC #### [place] [address] USAHemoglobin (Bld) [Mass/Vol]10.9 g/dLLow13.0-17.0The [facility] Physician GroupComment on above:Order Comment: only got the mint in micro.Performed By: #### BMP, CBC #### [place] [address] USALymphocytes (Bld) [#/Vol]1.4 10*3/uLNormal1.00-4.8The [facility] Physician GroupComment on above:Order Comment: only got the mint in micro.Performed By: #### BMP, CBC #### [place] [address] USALymphocytes/100 WBC (Bld)19.0 %Normal.The [facility] Physician GroupComment on above:Order Comment: only got the mint in micro. Performed By: #### BMP, CBC #### [place] [address] USAMCH (RBC) [Entitic mass]33.7 wtBqmsin85.5-35.2The [facility] Physician GroupComment on above:Order Comment: only got the mint in micro.Performed By: #### BMP, CBC #### [facility] [address] [place] [address] USAMCV (RBC) [Entitic vol]98.9 pNAqlwbc42.5-101The [facility] Physician GroupComment on above:Order Comment: only got the mint in micro. Performed By: #### BMP, CBC #### [place] [address] USAMean Corpuscular HGB Conc34.0 g/eOVylzua43.5-35.6The [facility] Physician GroupComment on above:Order Comment: only got the mint in micro.Performed By: #### BMP, CBC #### [place] [address] USAMonocytes (Bld) [#/Vol]0.9 10*3/uLHigh0.0-0.8The [facility] Physician GroupComment on above:Order Comment: only got the mint in micro. Performed By: #### BMP, CBC #### [place] [address] USAMonocytes/100 WBC (Bld)11.9 %Normal.The [facility] Physician GroupComment on above:Order Comment: only got the mint in micro. Performed By: #### BMP, CBC #### [place] [address] USANeutrophils (Bld) [#/Vol]4.8 10*3/uLNormal1.8-7.7The [facility] Physician GroupComment on above:Order Comment: only got the mint in micro.Performed By: #### BMP, CBC #### [place] [address] USANeutrophils/100 WBC (Bld)65.7 %Normal.The [facility] Physician GroupComment on above:Order Comment: only got the mint in micro. Performed By: #### BMP, CBC #### [place] [address] USANRBC%0.2 /100{WBC}Normal0-0.5The [facility] Comment on above:Order Comment: only got the mint in micro.Performed By: #### BMP, CBC #### [place] [address] USAPlatelet mean volume (Bld) [Entitic vol]8.0 fLNormal 6.6-10.1The [facility] Physician GroupComment on above:Order Comment: only got the mint in micro.Performed By: #### BMP, CBC #### [place] [address] USAPlatelets (Bld) [#/Vol]165 10*3/bMDnidsj191-783Okq [facility] Physician GroupComment on above:Order Comment: only got the mint in micro.Performed By: #### BMP, CBC #### [place] [address] USARBC (Bld) [#/Vol]3.23 10*6/uLLow3.90-5.60The [facility] Physician GroupComment on above:Order Comment: only got the mint in micro. Performed By: #### BMP, CBC #### [place] [address] USAWBC (Bld) [#/Vol]7.3 10*3/uLNormal4.1-10.5The [facility] Physician GroupComment on above:Order Comment: only got the mint in micro. Performed By: #### BMP, CBC #### [place] [address] USAWhite Blood Count7.3 [CFU]/mLNormal4.1-10.5The [facility] Physician GroupComment on above:Order Comment: only got the mint in micro. Performed By: #### BMP, CBC #### [place] [address] USAMagnesiumon 07-04-3773Gfsijkzwc [Mass/Vol]2.3 mg/dLNormal 1.9-2.7The [facility] Physician GroupComment on above:Performed By: #### MG, ALB, CBC, BMP #### [place] [address] USABasic Metabolic Panelon 46-18-1930Xgukv gap [Moles/Vol] 12.0 mmol/LNormal6.0-15.0The [facility] Physician GroupComment on above:Performed By: #### BMP, CBC #### [place] [address] USACalcium [Mass/Vol]7.9 mg/dLLow8.6-10.3The [facility] Physician GroupComment on above:Performed By: #### BMP, CBC #### [place] [address] USAChloride [Moles/Vol]103 mmol/TUsfmqq23-528Bvu [facility] Physician GroupComment on above:Performed By: #### BMP, CBC #### [place] [address] USACO2 [Moles/Vol]30.5 mmol/HMswyxs80.0-31.0The [facility] Physician GroupComment on above:Performed By: #### BMP, CBC #### [place] [address] USACreatinine [Mass/Vol]1.59 mg/dLHigh0.70-1.30The [facility] Physician GroupComment on above:Performed By: #### BMP, CBC #### [place] [address] USACreatinine Clr Calc Jnaegrhy61.79NormalThe [facility] Physician GroupComment on above:Result Comment: PERFORMED BY: [place] [address] PATHOLOGIST HEARING IMPAIRED TEACHER AKRLA FAIR M.D.Performed By: #### BMP, CBC #### [place] [address] USAGFR/1.73 sq M.predicted MDRD (S/P/Bld) [Vol rate/Area] 50.634 mL/min/{1.73_m2}NormalThe [facility] Physician GroupComment on above: Performed By: #### BMP, CBC #### [place] [address] USAGlucose [Mass/Vol]132 mg/zOYocq20-077Whi [facility] Physician GroupComment on above:Result Comment: Random Glucose Reference Range is dependent on time and content of last meal. Glucose of more than 200 mg/dL in a nonstressed, ambulatory subject supports the diagnosis of Diabetes Mellitus. ADA recommended reference rangePerformed By: #### BMP, CBC #### [place] [address] USAPotassium [Moles/Vol]3.5 mmol/LNormal3.5-5.1The [facility] Physician GroupComment on above:Performed By: #### BMP, CBC #### [place] [address] USASodium [Moles/Vol]142 mmol/SFpfsta062-200Hhy [facility] Physician GroupComment on above:Performed By: #### BMP, CBC #### [place] [address] USAUrea nitrogen [Mass/Vol]25 mg/dLNormal7-25The [facility] Physician GroupComment on above:Performed By: #### BMP, CBC #### [place] [address] USAComplete Blood Count Auto Diffon [id number] (Bld) [#/Vol]0.0 10*3/uLNormal0.0-0.2The [facility] Physician GroupComment on above: Result Comment: PERFORMED BY: [place] [address] PATHOLOGIST HEARING IMPAIRED TEACHER KARLA FAIR M.D.Performed By: #### BMP, CBC #### [place] [address] USABasophils/100 WBC (Bld)0.5 %Normal.The [facility] Physician GroupComment on above:Performed By: #### BMP, CBC #### [place] [address] USAEosinophils (Bld) [#/Vol]0.1 10*3/uLNormal0.0-0.45The [facility] Physician GroupComment on above:Performed By: #### BMP, CBC #### [facility] [address] [place] [id number] USAEosinophils/100 WBC (Bld)1.2 %Normal.The [facility] Physician GroupComment on above:Performed By: #### BMP, CBC #### [place] [address] USAErythrocyte distribution width (RBC) [Ratio]13.6 %Normal 12.0-14.8The [facility] Physician GroupComment on above:Performed By: #### BMP, CBC #### [place] [address] USAHematocrit (Bld) [Volume fraction]32.6 %Low38.8-50.0The [facility] Physician GroupComment on above:Performed By: #### BMP, CBC #### [place] [address] USAHemoglobin (Bld) [Mass/Vol]11.1 g/dLLow13.0-17.0The [facility] Physician GroupComment on above:Performed By: #### BMP, CBC #### [place] [address] USALymphocytes (Bld) [#/Vol]1.4 10*3/uLNormal1.00-4.8The [facility] Physician GroupComment on above:Performed By: #### BMP, CBC #### [place] [id number] USALymphocytes/100 WBC (Bld)20.8 %Normal.The [facility] Physician GroupComment on above:Performed By: #### BMP, CBC #### [place] [address] USAMCH (RBC) [Entitic mass]33.6 kxBsweqa48.5-35.2The [facility] Physician GroupComment on above:Performed By: #### BMP, CBC #### [place] [address] USAMCV (RBC) [Entitic vol]98.3 eDCxlpuf06.5-101The [facility] Physician GroupComment on above:Performed By: #### BMP, CBC #### [facility] [address] [place] [address] USAMean Corpuscular HGB Conc34.2 g/rJPorocr08.5-35.6The [facility] Physician GroupComment on above:Performed By: #### BMP, CBC #### [facility] [address] [place] [address] USAMonocytes (Bld) [#/Vol]1.0 10*3/uLHigh0.0-0.8The [facility] Physician GroupComment on above:Performed By: #### BMP, CBC #### [facility] [address] [place] [address] USAMonocytes/100 WBC (Bld)14.6 %Normal.The [facility] Physician GroupComment on above:Performed By: #### BMP, CBC #### [facility] [address] [place] [address] USANeutrophils (Bld) [#/Vol]4.2 10*3/uLNormal1.8-7.7The [facility] Physician GroupComment on above:Performed By: #### BMP, CBC #### [place] [address] USANeutrophils/100 WBC (Bld)62.9 %Normal.The [facility] Physician GroupComment on above:Performed By: #### BMP, CBC #### [facility] [address] [place] [address] USANRBC%0.2 /100{WBC}Normal0-0.5The [facility]ician Group Comment on above:Performed By: #### BMP, CBC #### [facility] [address] [place] [address] USAPlatelet mean volume (Bld) [Entitic vol]7.9 fLNormal 6.6-10.1The [facility] Physician GroupComment on above:Performed By: #### BMP, CBC #### [facility] [address] [place] [address] USAPlatelets (Bld) [#/Vol]186 10*3/fMJqogks562-320Qor [facility] Physician GroupComment on above:Performed By: #### BMP, CBC #### [place] [address] USARBC (Bld) [#/Vol]3.32 10*6/uLLow3.90-5.60The [facility] Physician GroupComment on above:Performed By: #### BMP, CBC #### [place] [address] USAWBC (Bld) [#/Vol]6.7 10*3/uLNormal4.1-10.5The [facility] Physician GroupComment on above:Performed By: #### BMP, CBC #### [place] [address] USAWhite Blood Count6.7 [CFU]/mLNormal4.1-10.5The [facility] Physician GroupComment on above:Performed By: #### BMP, CBC #### [place] [address] USAMagnesiumon [id number] [Mass/Vol]1.7 mg/dLLow 1.9-2.7The [facility] Physician GroupComment on above:Result Comment: PERFORMED BY: [place] [address] PATHOLOGIST HEARING IMPAIRED TEACHER KARLA FAIR M.D.Performed By: #### BMP, CBC #### [place] [address] USABasic Metabolic Panelon [id number] gap [Moles/Vol] 11.7 mmol/LNormal6.0-15.0The [facility] Physician GroupComment on above:Performed By: #### BMP #### [place] [address] USACalcium [Mass/Vol]8.5 mg/dLLow8.6-10.3The [facility] Physician GroupComment on above:Performed By: #### BMP #### [place] [address] USAChloride [Moles/Vol]106 mmol/YWtiurq80-805Cbi [facility] Physician GroupComment on above:Performed By: #### BMP #### [place] [address] USACO2 [Moles/Vol]24.1 mmol/SStayue91.0-31.0The [facility] Physician GroupComment on above:Performed By: #### BMP #### [place] [address] USACreatinine [Mass/Vol]1.90 mg/dLHigh0.70-1.30The [facility] Physician GroupComment on above:Performed By: #### BMP #### [place] [address] USACreatinine Clr Calc Dmyxnivi22.17NormalThe [facility] Physician GroupComment on above:Result Comment: PERFORMED BY: [place] [address] PATHOLOGIST HEARING IMPAIRED TEACHER KARLA FAIR M.D.Performed By: #### BMP #### [place] [address] USAGFR/1.73 sq M.predicted MDRD (S/P/Bld) [Vol rate/Area] 40.890 mL/min/{1.73_m2}NormalThe [facility] Physician GroupComment on above: Performed By: #### BMP #### [place] [address] USAGlucose [Mass/Vol]181 mg/nVAxwg40-393Sda [facility] Physician GroupComment on above:Result Comment: Random Glucose Reference Range is dependent on time and content of last meal. Glucose of more than 200 mg/dL in a nonstressed, ambulatory subject supports the diagnosis of Diabetes Mellitus. ADA recommended reference rangePerformed By: #### BMP #### [place] [address] USAPotassium [Moles/Vol]4.8 mmol/LNormal3.5-5.1The [facility] Physician GroupComment on above:Performed By: #### BMP #### [address] [place] [address] USASodium [Moles/Vol]137 mmol/JBedtgb014-665Mfb [facility] Physician GroupComment on above:Performed By: #### BMP #### [place] [address] USAUrea nitrogen [Mass/Vol]34 mg/dLHigh7-25The [facility] Physician GroupComment on above:Performed By: #### BMP #### [place] [address] USAAnion gap [Moles/Vol]12.3 mmol/LNormal6.0-15.0The [facility] Physician GroupComment on above:Performed By: #### BMP, CBC #### [place] [address] USACalcium [Mass/Vol]9.2 mg/dLNormal8.6-10.3The [facility] Physician GroupComment on above:Performed By: #### BMP, CBC #### [place] [address] USAChloride [Moles/Vol]108 mmol/KHqxo75-534Ajb [facility] Physician GroupComment on above:Performed By: #### BMP, CBC #### [place] [address] USACO2 [Moles/Vol]21.7 mmol/TUkmuke08.0-31.0The [facility] Physician GroupComment on above:Performed By: #### BMP, CBC #### [place] [address] USACreatinine [Mass/Vol]2.16 mg/dLHigh0.70-1.30The [facility] Physician GroupComment on above:Performed By: #### BMP, CBC #### [place] [address] USACreatinine Clr Calc Bfonjctf90.86NormalThe [facility] Physician GroupComment on above:Result Comment: PERFORMED BY: [place] [address] PATHOLOGIST HEARING IMPAIRED TEACHER KARLA FAIR M.D.Performed By: #### BMP, CBC #### [facility] [address] [place] [address] USAGFR/1.73 sq M.predicted MDRD (S/P/Bld) [Vol rate/Area] 35.057 mL/min/{1.73_m2}NormalThe [facility] Physician GroupComment on above: Performed By: #### BMP, CBC #### [facility] [address] [place] [address] USAGlucose [Mass/Vol]122 mg/sQYffz55-318Jpc [facility] Physician GroupComment on above:Result Comment: Random Glucose Reference Range is dependent on time and content of last meal. Glucose of more than 200 mg/dL in a nonstressed, ambulatory subject supports the diagnosis of Diabetes Mellitus. ADA recommended reference rangePerformed By: #### BMP, CBC #### [place] [address] USAPotassium [Moles/Vol]6.0 mmol/LHigh3.5-5.1The [facility] Physician GroupComment on above:Performed By: #### BMP, CBC #### [place] [address] USASodium [Moles/Vol]136 mmol/EDmhklj151-794Myt [facility] Physician GroupComment on above:Performed By: #### BMP, CBC #### [place] [address] USAUrea nitrogen [Mass/Vol]38 mg/dLHigh7-25The [facility] Physician GroupComment on above:Performed By: #### BMP, CBC #### [place] [address] USAAnion gap [Moles/Vol]15.5 mmol/LHigh6.0-15.0The [facility] Physician GroupComment on above:Performed By: #### BMP, CBC #### [place] [address] USACalcium [Mass/Vol]8.9 mg/dLNormal8.6-10.3The [facility] Physician GroupComment on above:Result Comment: PERFORMED BY: [address] [address] PATHOLOGIST HEARING IMPAIRED TEACHER KARLA FAIR M.D.Performed By: #### BMP, CBC #### [facility] [address] [place] [address] USAChloride [Moles/Vol]109 mmol/IFmve90-167Ztj [facility] Physician GroupComment on above:Performed By: #### BMP, CBC #### [facility] [address] [place] [address] USACO2 [Moles/Vol]16.9 mmol/LLow21.0-31.0The [facility] Physician GroupComment on above:Performed By: #### BMP, CBC #### [place] [address] USACreatinine [Mass/Vol]2.20 mg/dLHigh0.70-1.30The [facility] Physician GroupComment on above:Performed By: #### BMP, CBC #### [place] [address] USAGFR/1.73 sq M.predicted MDRD (S/P/Bld) [Vol rate/Area] 34.293 mL/min/{1.73_m2}NormalThe [facility] Physician GroupComment on above: Performed By: #### BMP, CBC #### [place] [address] USAGlucose [Mass/Vol]130 mg/tBCqts74-220Ztg [facility] Physician GroupComment on above:Result Comment: Random Glucose Reference Range is dependent on time and content of last meal. Glucose of more than 200 mg/dL in a nonstressed, ambulatory subject supports the diagnosis of Diabetes Mellitus. ADA recommended reference rangePerformed By: #### BMP, CBC #### [facility] [address] [place] [address] USAPotassium [Moles/Vol]5.4 mmol/LHigh3.5-5.1The [facility] Physician GroupComment on above:Performed By: #### BMP, CBC #### [facility] [address] [place] [address] USASodium [Moles/Vol]136 mmol/ISscenn269-362Kga [facility] Physician GroupComment on above:Performed By: #### BMP, CBC #### [place] [address] USAUrea nitrogen [Mass/Vol]39 mg/dLHigh7-25The [facility] Physician GroupComment on above:Performed By: #### BMP, CBC #### [place] [address] USAComplete Blood Count Auto Diffon [id number] (Bld) [#/Vol]0.0 10*3/uLNormal0.0-0.2The [facility] Physician GroupComment on above: Result Comment: PERFORMED BY: [place] [address] PATHOLOGIST HEARING IMPAIRED TEACHER KARLA FAIR M.D.Performed By: #### BMP, CBC #### [place] [address] USABasophils/100 WBC (Bld)0.3 %Normal.The [facility] Physician GroupComment on above:Performed By: #### BMP, CBC #### [place] [address] USAEosinophils (Bld) [#/Vol]0.0 10*3/uLNormal0.0-0.45The [facility] Physician GroupComment on above:Performed By: #### BMP, CBC #### [place] [address] USAEosinophils/100 WBC (Bld)0.6 %Normal.The [facility] Physician GroupComment on above:Performed By: #### BMP, CBC #### [place] [address] USAErythrocyte distribution width (RBC) [Ratio]13.7 %Normal 12.0-14.8The [facility] Physician GroupComment on above:Performed By: #### BMP, CBC #### [place] [address] USAHematocrit (Bld) [Volume fraction]34.4 %Low38.8-50.0The [facility] Physician GroupComment on above:Performed By: #### BMP, CBC #### [place] [address] USAHemoglobin (Bld) [Mass/Vol]11.7 g/dLLow13.0-17.0The [facility] Physician GroupComment on above:Performed By: #### BMP, CBC #### [place] [address] USALymphocytes (Bld) [#/Vol]0.9 10*3/uLLow1.00-4.8The [facility] Physician GroupComment on above:Performed By: #### BMP, CBC #### [place] [address] USALymphocytes/100 WBC (Bld)10.5 %Normal.The [facility] Physician GroupComment on above:Performed By: #### BMP, CBC #### [place] [address] USAMCH (RBC) [Entitic mass]33.7 aqBmosoz19.5-35.2The [facility] Physician GroupComment on above:Performed By: #### BMP, CBC #### [place] [address] USAMCV (RBC) [Entitic vol]99.1 yQEsquxu75.5-101The [facility] Physician GroupComment on above:Performed By: #### BMP, CBC #### [place] [address] USAMean Corpuscular HGB Conc34.0 g/aQQcwwao15.5-35.6The [facility] Physician GroupComment on above:Performed By: #### BMP, CBC #### [place] [address] USAMonocytes (Bld) [#/Vol]1.3 10*3/uLHigh0.0-0.8The [facility] Physician GroupComment on above:Performed By: #### BMP, CBC #### [place] [address] USAMonocytes/100 WBC (Bld)15.3 %Normal.The [facility] Physician GroupComment on above:Performed By: #### BMP, CBC #### [facility] [address] [place] [address] USANeutrophils (Bld) [#/Vol]6.0 10*3/uLNormal1.8-7.7The [facility] Physician GroupComment on above:Performed By: #### BMP, CBC #### [place] [address] USANeutrophils/100 WBC (Bld)73.3 %Normal.The [facility] Physician GroupComment on above:Performed By: #### BMP, CBC #### [place] [address] USANRBC%0.1 /100{WBC}Normal0-0.5The [facility] Comment on above:Performed By: #### BMP, CBC #### [place] [address] USAPlatelet mean volume (Bld) [Entitic vol]7.8 fLNormal 6.6-10.1The [facility] Physician GroupComment on above:Performed By: #### BMP, CBC #### [place] [address] USAPlatelets (Bld) [#/Vol]209 10*3/pFOiakkc833-960Qrv [facility] Physician GroupComment on above:Performed By: #### BMP, CBC #### [place] [address] USARBC (Bld) [#/Vol]3.47 10*6/uLLow3.90-5.60The [facility] Physician GroupComment on above:Performed By: #### BMP, CBC #### [place] [address] USAWBC (Bld) [#/Vol]8.2 10*3/uLNormal4.1-10.5The [facility] Physician GroupComment on above:Performed By: #### BMP, CBC #### [place] [address] USAWhite Blood Count8.2 [CFU]/mLNormal4.1-10.5The [facility] Physician GroupComment on above:Performed By: #### BMP, CBC #### [place] [address] USABasophils (Bld) [#/Vol]0.0 10*3/uLNormal0.0-0.2The [facility] Physician GroupComment on above:Result Comment: PERFORMED BY: [place] [address] PATHOLOGIST HEARING IMPAIRED TEACHER KARLA FAIR M.D.Performed By: #### BMP, CBC #### [place] [address] USABasophils/100 WBC (Bld)0.4 %Normal.The [facility] Physician GroupComment on above:Performed By: #### BMP, CBC #### [place] [address] USAEosinophils (Bld) [#/Vol]0.1 10*3/uLNormal0.0-0.45The [facility] Physician GroupComment on above:Performed By: #### BMP, CBC #### [place] [address] USAEosinophils/100 WBC (Bld)1.7 %Normal.The [facility] Physician GroupComment on above:Performed By: #### BMP, CBC #### [place] [address] USAErythrocyte distribution width (RBC) [Ratio]13.7 %Normal 12.0-14.8The [facility] Physician GroupComment on above:Performed By: #### BMP, CBC #### [place] [address] USAHematocrit (Bld) [Volume fraction]34.7 %Low38.8-50.0The [facility] Physician GroupComment on above:Performed By: #### BMP, CBC #### [place] [address] USAHemoglobin (Bld) [Mass/Vol]11.7 g/dLLow13.0-17.0The [facility] Physician GroupComment on above:Performed By: #### BMP, CBC #### [facility] [address] [place] [address] USALymphocytes (Bld) [#/Vol]1.0 10*3/uLNormal1.00-4.8The [facility] Physician GroupComment on above:Performed By: #### BMP, CBC #### [facility] [address] [place] [address] USALymphocytes/100 WBC (Bld)14.4 %Normal.The [facility] Physician GroupComment on above:Performed By: #### BMP, CBC #### [place] [address] USAMCH (RBC) [Entitic mass]33.4 cyRddsrg05.5-35.2The [facility] Physician GroupComment on above:Performed By: #### BMP, CBC #### [facility] [address] [place] [address] USAMCV (RBC) [Entitic vol]99.1 eRCujdae97.5-101The [facility] Physician GroupComment on above:Performed By: #### BMP, CBC #### [place] [address] USAMean Corpuscular HGB Conc33.7 g/mTCdhxne28.5-35.6The [facility] Physician GroupComment on above:Performed By: #### BMP, CBC #### [facility] [address] [place] [address] USAMonocytes (Bld) [#/Vol]0.9 10*3/uLHigh0.0-0.8The [facility] Physician GroupComment on above:Performed By: #### BMP, CBC #### [facility] [address] [place] [address] USAMonocytes/100 WBC (Bld)13.3 %Normal.The [facility] Physician GroupComment on above:Performed By: #### BMP, CBC #### [facility] [address] [place] [address] USANeutrophils (Bld) [#/Vol]4.9 10*3/uLNormal1.8-7.7The [facility] Physician GroupComment on above:Performed By: #### BMP, CBC #### [place] [address] USANeutrophils/100 WBC (Bld)70.2 %Normal.The [facility] Physician GroupComment on above:Performed By: #### BMP, CBC #### [facility] [address] [place] [address] USANRBC%0.3 /100{WBC}Normal0-0.5The [facility] Comment on above:Performed By: #### BMP, CBC #### [place] [address] USAPlatelet mean volume (Bld) [Entitic vol]7.6 fLNormal 6.6-10.1The [facility] Physician GroupComment on above:Performed By: #### BMP, CBC #### [place] [address] USAPlatelets (Bld) [#/Vol]190 10*3/gKIotgtr246-868Rjw [facility] Center Physician GroupComment on above:Performed By: #### BMP, CBC #### [place] [address] USARBC (Bld) [#/Vol]3.51 10*6/uLLow3.90-5.60[facility] Physician GroupComment on above:Performed By: #### BMP, CBC #### [facility] [address] [place] [address] USAWBC (Bld) [#/Vol]7.0 10*3/uLNormal4.1-10.5[facility] Physician GroupComment on above:Performed By: #### BMP, CBC #### [facility] [address] [place] [address] USAWhite Blood Count7.0 [CFU]/mLNormal4.1-10.5[facility] Physician GroupComment on above:Performed By: #### BMP, CBC #### [facility] [address] [place], [place] [address] USAECG 12 lead ECGon 97-04-2781OTC 12 lead [facility] [place] [address] [place] [address] Electrocardiograph Report Signed Patient: Alethea Lei MR#: [id number] : 1970 Acct:[id number] Age/Sex: 54 / M ADM Date: 08/17/24 Loc: Room: [address] [place] [address] Type: ADM IN Attending Dr: Ritu Cabrera [...] change was found Confirmed by Baldomero Olson ([id number]) on 08/17/2024 11:11:16 AM Referred By: Electronically Signed By: Baldomero Olson Transcribed By: MUS Signed By Baldomero Olson MD 08/17/24 1111NoUNC Health Physician GroupPartial Thromboplastin Timeon 27-68-0606gWIF Coag (Bld) [Time]28.0 gKmcrcl37.1-36.5[facility] Physician GroupComment on above:Result Comment: A hematocrit value greater than 55% may lead to inaccurate results in coagulation testing. Patients having hematocrit values >55% require a special collection tube for coagulation studies. Please contact the laboratory at [phone] for redraw instructions. PERFORMED BY: [place] [id number] PATHOLOGIST HEARING IMPAIRED TEACHER KARLA FAIR M.D.Performed By: #### PT, PTT #### [facility] [address] [place] [address] USAProthrombin Time INRon 96-53-6114OBD Coag (PPP) [Relative time]1.3 {INR}NormalThe [facility] Physician GroupComment on above:Result Comment: INR Therapeutic Range A) Pre- and [...] patients with mechanical heart valves: 3 - 4.5Performed By: #### PT, PTT #### [address] [address] USAPT Coag (PPP) [Time]14.8 sHigh9.0-12.9[facility] Physician GroupComment on above:Result Comment: A hematocrit value greater than 55% may lead to inaccurate results in coagulation testing. Patients having hematocrit values >55% require a special collection tube for coagulation studies. Please contact the laboratory at [phone] for redraw instructions.Performed By: #### PT, PTT #### [address] [address] USAUS renal BIon 85-36-9878YS renal [facility] Main [address] [address] Ultrasound Report Signed Patient: Alethea Lei MR#: [id number] : 1970 Acct:[id number] Age/Sex: 54 / M ADM Date: 08/17/24 Loc: Room: 7O1866-8 Type: DIS IN Attending Dr: Ritu Cabrera [...] Altamirano M.D. 08/17/2024 8:45 AM Dictation Location: [place] [address] Tech: Saskia Israel Transcribed By: WENDY 08/17/24 0845 Dictated By: Cheryl Altamirano MD 08/17/24 0841 Signed By: 08/17/24 0845[facility] Physician GroupUrine Cultureon 08-16-2024 Bacteria identified Cx Nom (U)50,000 colonies/ml mixed bacterial skin contaminants 2 Days PERFORMED BY: [place] [address] PATHOLOGIST HEARING IMPAIRED TEACHER KARLA FAIR M.D.[facility] Physician GroupComment on above: Performed By: #### CUU #### [place] [address] USAUrine cultureOrdered By: Geovanny Dong on 08-16-2024 Bacteria identified Cx Nom (U)2 DaysBellevue HospitalUrine Cultureon 92-50-3335Oaefxoor identified Cx Nom (U)>100,000 colonies/ml mixed bacterial skin contaminants 2 Days PERFORMED BY: [place] [address] PATHOLOGIST HEARING IMPAIRED TEACHER KARLA FAIR M.D.[facility]ician [facility] HospitalComment on above: Performed By: #### BMP, CBC #### [facility] [address] [place], [place] [address] USAUrine cultureOrdered By: Adams Weaver on 08-14-2024 Bacteria identified Cx Nom (U)2 DaysBellevue HospitalT3 Freeon 65-70-3200Eqqh T3 [Mass/Vol]1.8 pg/mLLow2.0-4.4FThe [facility] Comment on above:Result Comment: Performed at: [facility] [id number] PhD Jarod Backformed By: #### [id number] #### [facility] [address], [place] [address]MusJ3qas 74-49-9191CyD5b (Bld) [Mass fraction]5.1 %Normal<=5.9 [facility] - AndersonComment on above:Performed By: #### [id number] #### [facility] [address], [place] [address]OTI w/Indiceson 79-81-6586Prjxxvylrwy distribution width (RBC) [Ratio]13.2 %Rqmicb07.9-14.2FThe [facility] of [facility] Medical CenterComment on above: Performed By: #### [id number] #### [facility] [address], [place] [address]Mjwkgcsois (Bld) [Volume fraction]39.3 %Yzdnis94.7-49.0[facility] - AndersonComment on above:Performed By: #### [id number] #### [facility] [address], [place] [address]Zwxtporvis (Bld) [Mass/Vol]13.0 g/dLLow13.5-17.5FThe [facility] of [facility] Medical CenterComment on above:Performed By: #### [id number] #### [facility] [address], [place] [address]XFV (RBC) [Entitic mass]33.1 uwDaxzdm13.0-34.0[facility] - AndersonComment on above:Performed By: #### [id number] #### [facility] [address], [place] [address]HAME (RBC) [Mass/Vol]33.2 g/sUTrwbpo84.4-36.0[facility] - AndersonComment on above:Performed By: #### [id number] #### [facility] [address] [place] [address]RKM (RBC) [Entitic vol]99.7 iIZqimdx43.0-100.0[facility] - AndersonComment on above:Performed By: #### [id number] #### [facility] [address] [place] [address]Enmbxcxs mean volume (Bld) [Entitic vol]8.9 fLNormal6.4-10.8 [facility] - AndersonComment on above:Performed By: #### [id number] #### [facility] [address] [place] [address]Ksvucdixt (Bld) [#/Vol]156.0 E9/SKqgvfm025.0-500.0[facility] - AndersonComment on above:Performed By: #### [id number] #### [facility] [address] [place] [address]XWH (Bld) [#/Vol]3.9 E12/LLow4.3-5.9[facility] Comment on above:Performed By: #### [id number] #### [facility] [address] [place] [address]WXP size Nom (Bld)NORMALInvalid Interpretation CodeOur Lady Of Mercy Hospital - AndersonComment on above:Performed By: #### [id number] #### [facility] [address] [place] [address]KVR corrected for nucl RBC Auto (Bld) [#/Vol]5.3 E9/LNormal 4.0-11.0[facility] - AndersonComment on above:Performed By: #### [id number] #### [facility] [address] [place] [address]FTMLQAGAFNtsbjun By: SYSTEM SYSTEM on - hydroxyvitamin D3 [Mass/Vol]42.7 ng/cUTyolby24.0 - 100.0 ng/mLRemisol Chem Albumin [Mass/Vol]4.1 g/dLNormal3.3 - 5.0 gm/dLRemisol ChemAlbumin/Globulin [Mass ratio]1.5 {ratio}Normal1.1 - 2.2Remisol ChemALP [Catalytic activity/Vol] 161 [iU]/dHigh21 - 98 Int._Unit/LRemisol ChemALT No additional P-5'-P [Catalytic activity/Vol]30 [iU]/dNormal6 - 46 Int._Unit/LRemisol ChemAnion gap [Moles/Vol] 10 mmol/LNormal6 - 16 mEq/LRemisol ChemAST [Catalytic activity/Vol]21 [iU]/d Normal5 - 43 Int._Unit/LRemisol ChemBilirubin [Mass/Vol]0.4 mg/dLNormal0.0 - 1.1 mg/dLRemisol ChemCalcium [Mass/Vol]8.9 mg/dLNormal8.9 - 11.1 mg/dLRemisol Chem Chloride [Moles/Vol]113 mmol/JPhiz677 - 111 mmol/LRemisol ChemCholesterol [Mass/Vol]108 mg/pGDum122 - 200 mg/dLRemisol ChemCholesterol in HDL [Mass/Vol]34 mg/dLInvalid Interpretation CodeRemisol ChemComment on above:Result Comment: '>= 60 LOW RISK' '<= 40 HIGH RISK'Cholesterol in LDL [Mass/Vol]59 mg/dLNormal<=129mg/dLRemisol ChemCholesterol in VLDL [Mass/Vol]19 mg/dLNormal7 - 40 mg/dLRemisol ChemCO2 [Moles/Vol]24 mmol/GAhynma41 - 31 mmol/LRemisol ChemCreatinine [Mass/Vol]1.6 mg/dLHigh0.5 - 1.3 mg/dLRemisol YoyezBRR29 mL/min/1.73 m2Low>=59mL/min/1.73 m2 Remisol ChemFree T4 [Mass/Vol]0.56 ng/dLLow0.58 - 1.64 ng/dLRemisol ChemGlobulin (S) [Mass/Vol]2.8 g/dLNormal1.4 - 4.0 gm/dLRemisol ChemGlucose [Mass/Vol]86 mg/kWOgjbkk63 - 199 mg/dLRemisol ChemPotassium [Moles/Vol]4.8 mmol/LNormal3.5 - 5.3 mmol/LRemisol ChemProstate specific Ag [Mass/Vol]0.4 ng/mLNormal0.1 - 3.5 ng/mLRemisol ChemComment on above:Interpretive Data: The concentration of PSA determined by different manufacturers can vary due to differences in assay methods and reagent specificity. Values obtained from different assay methods cannot be used interchangeably. The methodology used for this result was chemiluminescence using [employer]'s Access Hybritech PSA reagent.Protein [Mass/Vol]6.9 g/dLNormal6.0 - 7.8 gm/dLRemisol ChemSodium [Moles/Vol]142 mmol/L Waokfn757 - 145 mmol/LRemisol ChemTriglyceride [Mass/Vol]94 mg/dLNormal <=149mg/dLRemisol ChemTSH Qn0.10 m[IU]/LLow0.34 - 5.60 mcIU/mLRemisol ChemUrea nitrogen [Mass/Vol]30 mg/dLHigh5 - 21 mg/dLRemisol ChemUrea nitrogen/Creatinine [Mass ratio]19 mg/sqRprttv30 - 20Remisol ChemCMPon 02-95-2123Asuzdxi [Mass/Vol] 4.1 g/dLNormal3.3-5.0[facility] AndersonComment on above:Performed By: #### [id number] #### [facility] [address], [place] [address]Fdlcrhu/Globulin (S) [Mass conc ratio]1.8Jvwyfk5.1-2.2[facility]pmc Western MarylandComment on above:Performed By: #### [id number] #### [facility] [address], [place] [address]TBJ [Catalytic activity/Vol]161 Int._Unit/SNsdb69-26PztqtbOur Lady Of Mercy Hospital - AndersonComment on above:Performed By: #### [id number] #### [facility] [address], [place] [address]CHV No additional P-5'-P [Catalytic activity/Vol]30 Int._Unit/L Normal6-46[facility] - AndersonComment on above:Performed By: #### [id number] #### [facility] [address], [place] [address]Yajmb gap [Moles/Vol]10 mmol/LNormal6-16[facility] - AndersonComment on above:Performed By: #### [id number] #### [facility] [address], [place] [address]VYE [Catalytic activity/Vol]21 Int._Unit/LNormal5-43[facility] - AndersonComment on above:Performed By: #### [id number] #### [facility] [address], [place] [address]Mpavoginr [Mass/Vol]0.4 mg/dLNormal0.0-1.1FThe University of Toledo Medical CenterComment on above:Performed By: #### [id number] #### [facility] [address], [place] [address]Fjczajc [Mass/Vol]8.9 mg/dLNormal8.9-11.1FThe [facility] of [facility] Medical CenterComment on above:Performed By: #### [id number] #### [facility] [address], [place] [address]Rklgulrj [Moles/Vol]113 mmol/FAtbr301-950AntwblOur Lady Of Mercy Hospital - AndersonComment on above:Performed By: #### [id number] #### [facility] [address], [place] [address]CP7 [Moles/Vol]24 mmol/ALqtgmb73-11PodxsiOur Lady Of Mercy Hospital - [facility] Comment on above:Performed By: #### [id number] #### [facility] [address], [place] [address]Atenportmn [Mass/Vol]1.6 mg/dLHigh0.5-1.3FThe [facility] of [facility] Medical CenterComment on above:Performed By: #### [id number] #### [facility] [address], [place] [address]Hlppujda (S) [Mass/Vol]2.8 g/dLNormal1.4-4.0[facility] - AndersonComment on above:Performed By: #### [id number] #### [facility] [address], [place] [address]Iyrybny [Mass/Vol]86 mg/mJBvcitr99-452MrdcxtOur Lady Of Mercy Hospital - AndersonComment on above:Performed By: #### [id number] #### [facility] [address], [place] [address]Vsjsphnqy [Moles/Vol]4.8 mmol/LNormal3.5-5.3FThe [facility] of [facility] Medical CenterComment on above:Performed By: #### [id number] #### [facility] [address] [place] [address]Jveuyra [Mass/Vol]6.9 g/dLNormal6.0-7.8[facility] - AndersonComment on above:Performed By: #### [id number] #### [facility] [address], [place] [address]Gjrnij [Moles/Vol]142 mmol/LJsfxtm477-440ZrtgehOur Lady Of Mercy Hospital - AndersonComment on above:Performed By: #### [id number] #### [facility] [address] [place] [address]Tvly nitrogen [Mass/Vol]30 mg/dLHigh5-21[facility] - AndersonComment on above:Performed By: #### [id number] #### [facility] [address] [place] [address]Ggvi nitrogen/Creatinine [Mass ratio]19 No DtaeeSekrns95-63 [facility] - AndersonComment on above:Performed By: #### [id number] #### [facility] [address], [place] [address]Bhhe T4on 36-89-7225Iozs T4 [Mass/Vol]0.56 ng/dLLow0.58-1.64 [facility] - AndersonComment on above:Performed By: #### [id number] #### [facility] [address], [place] [address]TAQCFXKKAQOmczgjc By: SYSTEM SYSTEM on 52-39-4629Jjtqnracuxz distribution width (RBC) [Ratio]13.2 %Eajxiv51.9 - 14.2 %Remisol HemeHematocrit (Bld) [Volume fraction]39.3 %Nyinjx01.7 - 49.0 %Remisol HemeHemoglobin (Bld) [Mass/Vol]13.0 g/dLLow13.5 - 17.5 gm/dLRemisol HemeMCH (RBC) [Entitic mass]33.1 qnZmglul81.0 - 34.0 pgRemisol HemeMCHC (RBC) [Mass/Vol]33.2 g/kAOcxcnm56.4 - 36.0 gm/dLRemisol HemeMCV (RBC) [Entitic vol]99.7 lKXxddha52.0 - 100.0 fLRemisol HemePlatelet mean volume (Bld) [Entitic vol]8.9 fLNormal6.4 - 10.8 fLRemisol HemePlatelets (Bld) [#/Vol]156.0 E9/NGxrqpd143.0 - 500.0 E9/LRemisol HemeRBC (Bld) [#/Vol]3.9 E12/LLow4.3 - 5.9 E12/LRemisol HemeRBC size Nom (Bld)NORMAL *NA* (08/19/23 6:55 AM)Invalid Interpretation CodeRemisol HemeWBC corrected for nucl RBC Auto (Bld) [#/Vol]5.3 E9/LNormal4.0 - 11.0 E9/LRemisol HemeLipid Panelon 15-06-8922Swpcipotokg [Mass/Vol]108 mg/mIVrs852-478NvvwufOur Lady Of [facility] Comment on above:Performed By: #### [id number] #### [facility] [address], [place] [address]Tgiszoeywip in HDL [Mass/Vol]34 mg/dLInvalid Interpretation [facility] HospitalComment on above:Result Comment: '>= 60 LOW RISK' '<= 40 HIGH RISK'Performed By: #### [id number] #### [facility] [address], [place] [address]Zqzfhesxvnj in LDL [Mass/Vol]59 mg/dLNormal<=129[facility] - AndersonComment on above:Performed By: #### [id number] #### [facility] [address], [place] [address]Akocbjbyyox in VLDL [Mass/Vol]19 mg/dLNormal7-40[facility] - AndersonComment on above:Performed By: #### [id number] #### [facility] [address], [place] [address]Fqbrcnewgsbp [Mass/Vol]94 mg/dLNormal<=149[facility] - AndersonComment on above:Performed By: #### [id number] #### [facility] [address], [place] [address]JWJ Screen, Totalon 28-13-8205Qchnywlm specific Ag [Mass/Vol] 0.4 ng/mLNormal0.1-3.5FThe [facility] of [facility] Medical CenterComment on above:Result Comment: The concentration of PSA determined by different manufacturers can vary due to differences in assay methods and reagent specificity. Values obtained from different assay methods cannot be used interchangeably. The methodology used for this result was chemiluminescence using [employer]'s Access Hybritech PSA reagent.Performed By: #### [id number] #### [facility] [address], [place] [address]Ihwkycijx Orderon 71-88-0736Pkndvmcnh Order [id number]#1.00TIFFNormalOur Lady Of Mercy Hospital - AndersonTSHon 19-08-3670VCQ Qn0.10 m[IU]/LLow0.34-5.60[facility] Comment on above:Performed By: #### [id number] #### [facility] [address], [place] [address]Fgaptto D 25 Hydroxyon 92-03-900467636113-lazhwjmtpfqroe D3 [Mass/Vol]42.7 ng/lPWtiglu30.0-100.0[facility] - AndersonComment on above: Performed By: #### [id number] #### [facility] [address], [place] [address]kPEOrw 09-11-1368rQAY29 mL/min/1.73 m2Low>=59[facility] - AndersonComment on above:Order Comment: Order added by Discern Expert. Performed By: #### [id number] #### [facility] [address], [place] [address]S8 Freeon 00-62-1792Wmwi T3 [Mass/Vol]2.0 pg/mLInvalid Interpretation Code2.0-4.4FThe University of [facility] Medical CenterComment on above:Result Comment: Performed at: [facility] [address] [place], [place] [id number] PhD Jarod KumarPerformed By: #### 6139568, 8683238, 3562021, 87656431, 978027434, 3992564, 4551037, 7411866, 6908024, 9227917 ####[facility] [address] [place], [place] [address]DKO w/Indiceson 26-44-2644Xsafgqesbqz distribution width (RBC) [Ratio]13.2 %Btklzu66.9-14.2 [facility] - AndersonComment on above:Performed By: #### 8740739, 4068932, 0669975, 36703269, 584690730, 3479177, 4249445, 4763640, 0791692, 4595564 #### [facility] [address], [place] [address]Wcwpurtdac (Bld) [Volume fraction]40.6 %Ssxqza47.7-49.0[facility] - AndersonComment on above:Performed By: #### 2522576, 6079952, 6308127, 29169492, 812338633, 3159815, 2287071, 6908963, 8147977, 7790768 #### [facility] [address], [place] [address]Gxcbmrsinj (Bld) [Mass/Vol]13.4 g/dLLow13.5-17.5FThe University of [facility]edo Medical CenterComment on above:Performed By: #### 0859878, 1022123, 5872001, 86243819, 817544616, 2978021, 8676082, 4997757, 2720486, 3645177 #### [facility] [address], [place] [address]OKO (RBC) [Entitic mass]32.7 juGcemou92.0-34.0[facility] - AndersonComment on above:Performed By: #### 5047782, 8422515, 8925232, 78080546, 040352810, 6260580, 6846819, 7362851, 2984505, 2194928 #### [facility] [address] [place] [address]TIVP (RBC) [Mass/Vol]33.0 g/sVGjghhd45.4-36.0[facility] - AndersonComment on above:Performed By: #### 2430249, 9833076, 9575603, 71667763, 449040487, 5679964, 7648131, 4003539, 4558015, 9392575 #### [facility] [address], [place] [address]CZC (RBC) [Entitic vol]99.1 wJWyszwr35.0-100.0[facility] - AndersonComment on above:Performed By: #### 3140432, 2284369, 1609155, 50163366, 701461348, 2353707, 7152561, 7466237, 2669885, 3749295 #### [facility] [address], [place] [address]Ofbemrpg mean volume (Bld) [Entitic vol]9.6 fLNormal6.4-10.8 [facility] - AndersonComment on above:Performed By: #### 4637321, 8218028, 9052356, 76954343, 798895288, 6383835, 2807965, 3904451, 4649408, 1108858 #### [facility] [address], [place] [address]Wjmpothdp (Bld) [#/Vol]170.0 E9/FFjnois097.0-500.0[facility] - AndersonComment on above:Performed By: #### 3519060, 7089153, 8991544, 16367266, 459917527, 8043956, 9926838, 8750118, 1198299, 7421203 #### [facility] [address], [place] [address]MTS (Bld) [#/Vol]4.1 E12/LLow4.3-5.9[facility] Comment on above:Performed By: #### 1379711, 2784341, 0351519, 60486698, 138451445, 9932789, 5345703, 2756611, 2268245, 8706138 #### [facility] [address], [place] [address]QWR corrected for nucl RBC Auto (Bld) [#/Vol]4.4 E9/LNormal 4.0-11.0[facility] - AndersonComment on above:Performed By: #### 0498847, 6182769, 4981229, 67953773, 405405562, 5064817, 9015629, 8344208, 1369085, 1887912 #### [facility] [address], [place] [address]UIJYHGCGICnzyrbl By: SYSTEM SYSTEM on 68-67-9605Fyfyfde [Mass/Vol]4.1 g/dLNormal3.3 - 5.0 gm/dLRemisol ChemAlbumin/Globulin [Mass ratio] 1.4 {ratio}Normal1.1 - 2.2Remisol ChemAlk Dbev529 [iU]/dHigh21 - 98 Int._Unit/L Remisol FhgoHWG39 [iU]/dNormal6 - 46 Int._Unit/LRemisol ChemAnion gap [Moles/Vol]12 mmol/LNormal6 - 16 mEq/LRemisol VjgnCXZ69 [iU]/dNormal5 - 43 Int._Unit/LRemisol ChemBili Total0.3 mg/dLNormal0.0 - 1.1 mg/dLRemisol Chem Calcium [Mass/Vol]8.9 mg/dLNormal8.9 - 11.1 mg/dLRemisol ChemChloride [Moles/Vol]113 mmol/MJcsz335 - 111 mmol/LRemisol ChemCholesterol [Mass/Vol]105 mg/rYBqc764 - 200 mg/dLRemisol ChemCholesterol in HDL [Mass/Vol]40 mg/dLInvalid Interpretation CodeRemisol ChemComment on above:Result Comment: '>= 60 LOW RISK' '<= 40 HIGH RISK'Cholesterol in LDL [Mass/Vol]54 mg/dLNormal<=129mg/dLRemisol ChemCholesterol in VLDL [Mass/Vol]16 mg/dLNormal7 - 40 mg/dLRemisol ChemCO2 [Moles/Vol]22 mmol/SEfaipz14 - 31 mmol/LRemisol ChemCobalamin (Vitamin B12) [Mass/Vol]483 pg/mHQdpmcn37 - 1500 pg/mLRemisol ChemCreatinine [Mass/Vol]1.5 mg/dLHigh0.5 - 1.3 mg/dLRemisol PsyjkBPX22 mL/min/1.73 m2Low>=59mL/min/1.73 m2 Remisol ChemFree T4 [Mass/Vol]0.66 ng/dLNormal0.58 - 1.64 ng/dLRemisol Chem Globulin (S) [Mass/Vol]2.9 g/dLNormal1.4 - 4.0 gm/dLRemisol ChemGlucose [Mass/Vol]90 mg/sDCtwzws78 - 199 mg/dLRemisol ChemIron [Mass/Vol]130 ug/dLNormal 35 - 153 mcg/dLRemisol ChemPotassium [Moles/Vol]4.8 mmol/LNormal3.5 - 5.3 mmol/L Remisol ChemProtein [Mass/Vol]7.0 g/dLNormal6.0 - 7.8 gm/dLRemisol ChemSodium [Moles/Vol]142 mmol/RCjupgx257 - 145 mmol/LRemisol ChemTriglyceride [Mass/Vol]81 mg/dLNormal<=149mg/dLRemisol ChemTSH Qn0.03 m[IU]/LLow0.34 - 5.60 mcIU/mL Remisol ChemUrea nitrogen [Mass/Vol]26 mg/dLHigh5 - 21 mg/dLRemisol ChemUrea nitrogen/Creatinine [Mass ratio]17 mg/mnCezyzu86 - 20Remisol ChemVitamin D 25 Agewupd15.9 ng/dUVbezfi69.0 - 100.0 ng/mLRemisol ChemCMPon 84-06-8016Xfvkqif [Mass/Vol]4.1 g/dLNormal3.3-5.0[facility] - AndersonComment on above: Performed By: #### 3781004, 2634982, 2419762, 81712816, 267765339, 7343769, 1228538, 9540294, 4722084, 6757584 #### [facility] [address], [place] [address]Ewzqnrs/Globulin [Mass ratio]1.4 {ratio}Normal1.1-2.2FThe University of Toledo Medical CenterComment on above:Performed By: #### 6197375, 5846124, 2513103, 47652315, 053799217, 4510758, 2007738, 0022507, 4182820, 9776620 #### [facility] [address], [place] [address]Ipn Qltx049 Int._Unit/BJagx42-87MzsqynOur Lady Of Mercy Hospital [facility] Comment on above:Performed By: #### 2101842, 2397503, 2044436, 18061853, 290279944, 1881458, 7825989, 2235309, 3972641, 7856906 #### [facility] [address], [place] [address]YWJ56 Int._Unit/LNormal6-46[facility] - AndersonComment on above:Performed By: #### 6653516, 7138295, 3670110, 94263408, 274416460, 3063930, 5154234, 1525314, 5544349, 5217412 #### [facility] [address] [place] [address]Uigit gap [Moles/Vol]12 mmol/LNormal6-16[facility] - AndersonComment on above:Performed By: #### 8283803, 1356279, 0603956, 34254144, 139095310, 7588129, 7371093, 0803908, 9050473, 9015462 #### [facility] [address] [place] [address]TJK23 Int._Unit/LNormal5-43[facility] - AndersonComment on above:Performed By: #### 2491885, 5310531, 4323012, 38778215, 777289876, 8109062, 3392510, 1697933, 1483570, 3343621 #### [facility] [address] [place] [address]Ghqe Total0.3 mg/dLNormal0.0-1.1FThe [facility] Comment on above:Performed By: #### 0011816, 3902756, 7107015, 35301176, 385590715, 2596506, 0754998, 6725498, 8129665, 2740228 #### [facility] [address] [place] [address]FGM/Creat Ratio17 No HldzzSxmgct10-57EkskyzOur Lady Of Mercy Hospital - AndersonComment on above:Performed By: #### [id number], 3462935, 8111549, 50739619, 850414600, 3001171, 8801667, 0328025, 4395489, 3955204 #### [facility] [address] [place] [address]Bnrvwkh [Mass/Vol]8.9 mg/dLNormal8.9-11.1Fisher [facility]pmc Western MarylandComment on above:Performed By: #### 8319563, 9931723, 7820217, 76133292, 177192956, 8439722, 3895382, 8654507, 8022179, 7057073 #### [facility] [address], [place] [address]Ghjegrvc [Moles/Vol]113 mmol/FRfny714-119CgbxwrOur Lady Of Mercy Hospital - AndersonComment on above:Performed By: #### 6535886, 0840812, 0389302, 04492012, 048345518, 5184776, 7880461, 6777820, 3078408, 3420137 #### [facility] [address], [place] [address]DC2 [Moles/Vol]22 mmol/SAhmfel52-86OehsmxOur Lady Of Mercy Hospital - [facility] Comment on above:Performed By: #### 0720733, 1255206, 5351766, 62570150, 848851172, 9302718, 6025946, 8780929, 9630738, 3734959 #### [facility] [address] [place] [address]Rozzvruegu [Mass/Vol]1.5 mg/dLHigh0.5-1.3FThe University of Toledo Medical CenterComment on above:Performed By: #### 8649668, 7452204, 8359155, 33828316, 163142208, 7468704, 4598437, 8389188, 4453440, 0729997 #### [facility] [address] [place] [address]Trxvfcau (S) [Mass/Vol]2.9 g/dLNormal1.4-4.0[facility] AndersonComment on above:Performed By: #### 9119109, 0069719, 4276575, 81064534, 431596975, 5444505, 2336895, 2875779, 7275949, 2102289 #### [facility] [address], [place] [address]Mrvjyob [Mass/Vol]90 mg/aWLnwpql57-902KvxtaxOur Lady Of Mercy Hospital - AndersonComment on above:Performed By: #### 6098100, 6520078, 9075635, 15378176, 444160435, 2525803, 2425547, 1209220, 6687891, 4802185 #### [facility] [address], [place] [address]Tucdvavrg [Moles/Vol]4.8 mmol/LNormal3.5-5.3FThe University of Toledo Medical CenterComment on above:Performed By: #### 1241241, 1078058, 0741244, 47504880, 881621201, 6752401, 7937050, 2451929, 3695494, 4252746 #### [facility] [address], [place] [address]Okcsxtx [Mass/Vol]7.0 g/dLNormal6.0-7.8[facility] - AndersonComment on above:Performed By: #### 7068295, 2769025, 1927661, 02399101, 072182023, 8044015, 3410337, 4614333, 9464371, 8419455 #### [facility] [address] [place] [address]Spwhxh [Moles/Vol]142 mmol/QRsrpzb518-569MphyxfOur Lady Of Mercy Hospital - AndersonComment on above:Performed By: #### 8266939, 1762042, 3798351, 63738931, 931737632, 7232444, 6314774, 1940499, 5060772, 4139337 #### [facility] [address], [place] [address]Zhmo nitrogen [Mass/Vol]26 mg/dLHigh5-21[facility] - AndersonComment on above:Performed By: #### 7300110, 0573816, 2175675, 56587616, 338645748, 1585200, 5518962, 2778805, 6181026, 7247998 #### [facility] [address], [place] [address]Adss T4on 29-12-5807Yhcp T4 [Mass/Vol]0.66 ng/dLNormal0.58-1.64 [facility] AndersonComment on above:Performed By: #### 4308595, 2310829, 4803643, 77138904, 933094716, 8554338, 9757635, 6137918, 1196035, 5228040 #### [facility] [address] [place], [place] [address]WDMBDVTYJQQzmbgpi By: Keira Srivastava on 98-37-2434Tyhfmfbjdnj distribution width (RBC) [Ratio]13.2 %Gdxshq24.9 - 14.2 %FT HemeAutoSS Hematocrit (Bld) [Volume fraction]40.6 %Xhcusa59.7 - 49.0 %FT HemeAutoSS Hemoglobin (Bld) [Mass/Vol]13.4 g/dLLow13.5 - 17.5 gm/dLFTMC HemeAutoSSMCH (RBC) [Entitic mass]32.7 diIhbfgh41.0 - 34.0 pgFTMC HemeAutoSSMCHC (RBC) [Mass/Vol] 33.0 g/hSMyfyxm63.4 - 36.0 gm/dLFTMC HemeAutoSSMCV (RBC) [Entitic vol]99.1 fL Nvjoin00.0 - 100.0 fLFTMC HemeAutoSSPlatelet mean volume (Bld) [Entitic vol]9.6 fLNormal6.4 - 10.8 fLFTMC HemeAutoSSPlatelets (Bld) [#/Vol]170.0 E9/NIyhyds714.0 - 500.0 E9/LFTMC HemeAutoSSRBC (Bld) [#/Vol]4.1 E12/LLow4.3 - 5.9 E12/LFTMC HemeAutoSSWBC corrected for nucl RBC Auto (Bld) [#/Vol]4.4 E9/LNormal4.0 - 11.0 E9/LFTMC HemeAutoSSIronon 82-65-7100Lszx819 microgram/tPVpcsey35-082Rttrai [facility]c Western MarylandComment on above:Performed By: #### 2102275, 8399827, 5225263, 82267149, 445505031, 5737488, 9006198, 8106025, 2766774, 7399465 #### [facility] [address], [place] [address]Kzzmi Panelon 81-24-5438Ffnwrgedntc [Mass/Vol]105 mg/dLLow 120-200[facility] AndersonComment on above:Performed By: #### 0761315, 3155991, 7810293, 84508417, 915462101, 7448382, 0789110, 4206863, 6194541, 4885053 #### [facility] [address], [place] [address]Amqewocfulc in HDL [Mass/Vol]40 mg/dLInvalid Interpretation CodeOur Lady Of Mercy Hospital - AndersonComment on above:Result Comment: '>= 60 LOW RISK' '<= 40 HIGH RISK'Performed By: #### 9192321, 8344642, 1905179, 33040348, 570501014, 8025980, 1833922, 1285767, 4195900, 9434110 #### [facility] [address], [place] [address]Xybvxhkzlnv in LDL [Mass/Vol]54 mg/dLNormal<=129[facility] AndersonComment on above:Performed By: #### 2314269, 5551732, 1192485, 14241120, 929034095, 3626767, 3406595, 1759346, 5767096, 0580325 #### [facility] [address], [place] [address]Awsfahqlkas in VLDL [Mass/Vol]16 mg/dLNormal7-40[facility] AndersonComment on above:Performed By: #### 1661856, 4930292, 2296462, 68642976, 897144653, 5413908, 5676733, 0266754, 2057255, 2796977 #### [facility] [address], [place] [address]Kdnxnlshjbmd [Mass/Vol]81 mg/dLNormal<=149[facility] - AndersonComment on above:Performed By: #### 9650418, 6210285, 9133399, 98450995, 257580285, 6880535, 8211022, 0486429, 4510177, 2984928 #### [facility] [address], [place] [address]Tsexozpsn Orderon 21-39-4936Oeudjrqbh Order [id number]#1.00TIFFNormalOur Lady Of Mercy Hospital - AndersonTSHon 67-85-8740VXQ Qn0.03 m[IU]/LLow0.34-5.60[facility] Comment on above:Performed By: #### 2394517, 9015877, 9660683, 98678285, 386399036, 6445165, 6760673, 1307207, 6228534, 0443560 #### [facility] [address], [place] [address]Rlq B12on 62-93-9411Fabodqyay (Vitamin B12) [Mass/Vol]483 pg/mL Vzuyae47-0763PbrwhuOur Lady Of Mercy Hospital - AndersonComment on above:Performed By: #### 0530340, 8360075, 1708287, 09167130, 484428354, 5178720, 5449169, 8248722, 2290925, 6021498 #### [facility] [address], [place] [address]Jkcgyrl D 25 Hydroxyon 91-66-1562Yvwxdbl D 25 Rmuynuu83.9 ng/mL Tdqecg05.0-100.0[facility] AndersonComment on above:Performed By: #### 2425634, 0689459, 1467896, 21683990, 246843531, 7108084, 3223646, 0331843, 0418456, 3877084 ####[facility] [address] [place], [place] [address]gAYAlz 64-88-0728rXPJ03 mL/min/1.73 m2Low>=59[facility] - AndersonComment on above:Order Comment: Order added by Discern Expert. Performed By: #### 0003023, 9967850, 1618343, 61117063, 148429520, 6048800, 0673117, 2974305, 8347796, 3762436 #### [facility] [address] [place] [place], [place] [address]UEU Screen, Totalon 01-60-7233Rroknwzj specific Ag [Mass/Vol] 0.5 ng/mLNormal0.1-3.5[facility]c Western MarylandComment on above:Result Comment: The concentration of PSA determined by different manufacturers can vary due to differences in assay methods and reagent specificity. Values obtained from different assay methods cannot be used interchangeably. The methodology used for this result was chemiluminescence using [employer]'s Access Hybritech PSA reagent.Performed By: #### [id number] ####[facility] [address] [place], [place] [address]Adgrdzlfq Orderon 11-12-2022 Physician [id number]#1.00CD:127NormalFisher Upmc Western MarylandUS KIDNEYS BLADDERon 74-07-5896AB KIDNEYS BLADDER EXAMINATION: US KIDNEYS BLADDER HISTORY: [...] Electronically authenticated by: NORMA ROSS Date: 2022-05-27 08:52NoMercy Health Defiance HospitalXR PELVIS 1_2 VIEWSon 63-01-0828HW PELVIS 1_2 VIEWSEXAMINATION: XR PELVIS 1_2 VIEWS, 04/11/2022 3:47 PM [...] Electronically authenticated by: JONAH MAJANO Date: 2022-04-14 08:21NoMercy Health Defiance HospitalXR HIP RT 2 3V WO PELVISon 34-09-2927GA HIP RT 2 3V WO PELVIS EXAM: XR HIP RT. HISTORY: . Pain in right leg . COMPARISON: None. TECHNIQUE: 2 views FINDINGS: No fracture or dislocation of the hip is noted. Joint spaces well-maintained. Surrounding soft tissues are unremarkable. IMPRESSION: Negative right hip. Electronically authenticated by: NORMA BROWN Date: 2022-04-10 08:41[facility] Medical CenterGlucose Glucometer (BldC) [Mass/Vol]Ordered By: Nallely Parada on 67-50-0581Xsihigy [Mass/Vol]95 mg/dLBellevue HospitalComment on above:Random Glucose Reference Range is dependent on time and content of last meal. Glucose of more than 200 mg/dL in a nonstressed, ambulatory subject supports the diagnosis of Diabetes Mellitus.CBC AUTO DIFFon 72-46-4624BILD #0.0 103/ulNormal0.0-0.1The [facility]huja Medical CenterComment on above:Performed By: #### CBC ####[facility] [address] [place], [place] [address]Kl. Yilan ChangBasophils/100 WBC (Bld)0.6 %Normal0.2-2.0The [facility]huja Medical CenterComment on above:Performed By: #### CBC ####[facility] [address] [place], [place] [address]Dr.Yilan ChangEO #0.2 103/ulNormal0.0-0.7The [facility] HospitalComment on above:Performed By: #### CBC ####[facility] Hewbsvsorr[address] [place], [place] [address]Dr.Kylahlan ChangEosinophils/100 WBC (Bld)2.8 %Normal0.9-7.0The [facility] Hill HospitalComment on above:Performed By: #### CBC ####[facility] [address] [place], [place] [address]Dr.Kylahlan ChangErythrocyte distribution width (RBC) [Ratio]12.6 %Normal 11.0-15.0The [facility]ja Medical CenterComment on above:Performed By: #### CBC ####[facility] Bphncfecuu[address] [place], [place] [address]Dr. Guille ChangHematocrit (Bld) [Volume fraction]40.4 %Critically low42.0-54.0The [facility] Medical CenterComment on above:Performed By: #### CBC ####[facility] Avrgimsgne[address] [place], [place] [address]Dr.Guille ChangHemoglobin (Bld) [Mass/Vol]13.7 g/dLCritically low14.0-18.0The [facility] Medical CenterComment on above:Performed By: #### CBC ####[facility] Qaayoluawr[address] [place], [place] [address]Dr.Yilan ChangIG #0.02 10e3/ulNormal0.00-0.03The [facility] Hill HospitalComment on above:Performed By: #### CBC ####[facility] Oandqstudi[address] [place], [place] [address]Dr.Kylahlan ChangIG %0.4 %Normal 0.0-0.5The [facility] Medical CenterComment on above:Performed By: #### CBC ####[facility] Trcivhtbky[address] [place], [place] [address]Dr.Kylahlan ChangLYMPH #1.1 103/ulCritically low1.2-3.8The [facility] Medical CenterComment on above:Performed By: #### CBC ####[facility] Djsnxfrjoo[address] [place], [place] [address]Dr.Guille MayoLymphocytes/100 WBC (Bld)20.8 %Bikyed52.5-60.0The [facility] Medical CenterComment on above:Performed By: #### CBC ####[facility] Gxbynmbtol[address] [place], [place] [address]Dr.Guille MayoMANUAL DIFF REQ NONormalThe [facility]huja Medical CenterComment on above:Performed By: #### CBC ####[facility] [address]wke[address] [place], [place] [address]Dr. Guille MayoH (RBC) [Entitic mass]32.3 osDwcfvx69.9-34.0The [facility] Comment on above:Performed By: #### CBC ####[facility] [address]xt[address] [place], [place] [address]Dr.Guille MayoHC (RBC) [Mass/Vol]33.9 g/dL Meadac76.9-35.2The [facility]ja Medical CenterComment on above:Performed By: #### CBC ####[facility] Qxsocaowst[address] [place], [place] [address]Dr. Guille MayoV (RBC) [Entitic vol]95.3 fLCritically high80.0-94.0The [facility] Medical CenterComment on above:Performed By: #### CBC ####[facility] [address]irabv[address] [place], [place] [address]Dr.Guille MayoMONO #0.4 103/ulNormal0.3-0.8The [facility] Medical CenterComment on above:Performed By: #### CBC ####[facility] Skzuugoiug[address] [place], [place] [address]Dr. Guille MayoMonocytes/100 WBC (Bld)7.4 %Normal1.7-12.0[facility] Comment on above:Performed By: #### CBC ####[facility] [address] [place] [address].Kylahizzy MayoNEUT #3.7 103/ulNormal1.4-6.5 The [facility] Medical CenterComment on above:Performed By: #### CBC ####[facility] [address] [place] [address]Dr.Guille Mayo Neutrophils/100 WBC (Bld)68.0 %Xlrjpq60.0-75.0The [facility] Medical CenterComment on above:Performed By: #### CBC ####[facility] [address] [place] [address]Dr.Guille MayoPlatelet mean volume (Bld) [Entitic vol] 10.4 fLNormal9.5-13.5The [facility] Medical CenterComment on above:Performed By: #### CBC ####[facility] So[address] [place], [place] [address]Dr. Guille TfvtjMNR833 103/ulCritically pxp415-875Oom [facility] CenterComment on above:Performed By: #### CBC ####[facility] [address] [place] [address]Dr.Guille MayoRBC4.24 106/ulCritically low4.70-6.10The [facility] Medical CenterComment on above:Performed By: #### CBC ####[facility] [address] [place], [place] [address]Dr.Guille MayoWBC5.4 103/ul Normal4.0-11.0The [facility] Medical CenterComment on above:Performed By: #### CBC ####[facility] [address] [place], [place] [address]DrCarol MayoFREE T4on 67-59-0915Waxp T4 [Mass/Vol]0.68 ng/dLCritically low 0.76-1.46The [facility] Medical CenterComment on above:Performed By: #### FT4 #### [facility] [address] [address] [address] Guille MayoLIPID PROFILEon 10-43-2453NXCB-HDL RATIO NORMSEE BELOWNormalThe [facility]ja Medical CenterComment on above:Result Comment: 3.3 - 4.4 LOW RISK 4.4 - 7.1 AVERAGE RISK 7.1 - 11.0 MODERATE RISK >11.0 HIGH RISKPerformed By: #### LIPID, TSH, CMP #### [facility] [address] [place] [address] Dr. Guille MayoCholesterol [Mass/Vol]130 mg/dLNormal<=200The [facility] Comment on above:Performed By: #### LIPID, TSH, CMP #### [facility] [address] [place] [address] Dr. Guille MayoCholesterol in HDL [Mass/Vol]45 mg/nGJgiiic51-19Wee [facility] CenterComment on above:Performed By: #### LIPID, TSH, CMP #### [facility] [address] [place] [address] Dr. Guille Jeffriesesterol in LDL [Mass/Vol]67.6 mg/dLNoMercy Health Defiance HospitalComment on above:Performed By: #### LIPID, TSH, CMP #### [facility] [address] [place] [address] Dr. Guille Jeffriesesteramanda.total/Cholesterol in HDL [Mass ratio]2.9 {ratio} NormalKettering Health Greene MemorialComment on above:Performed By: #### LIPID, TSH, CMP #### [facility] [address] [place] [address] Dr. Guille MayoHDL NORMAL> or = 60 mg/dl - LOW CARDIOVASCULAR RISK <40 mg/dl - HIGH CARDIOVASCULAR RISKRegional Medical CenterComment on above:Performed By: #### LIPID, TSH, CMP #### [facility] [address] [place] [address] Dr. Guille MayoLDL CALC NORMALSEE BELOWRegional Medical CenterComment on above:Result Comment: <100 mg/dl OPTIMAL 100 - 129 mg/dl NEAR OR ABOVE OPTIMAL 130 - 159 mg/dl BORDERLINE HIGH 160 - 189 mg/dl HIGH >190 mg/dl VERY HIGH Performed By: #### LIPID, TSH, CMP #### [facility] [address] [place] [address] Dr. Yilan ChangTriglyceride [Mass/Vol]87 mg/dLNormal<=150The [facility] Comment on above:Performed By: #### LIPID, TSH, CMP #### [facility] [address] [address] [address] Guille MayoVLDL CALC17.4 mg/dLNormalThe [facility] Medical CenterComment on above: Performed By: #### LIPID, TSH, CMP #### [facility] [address] [address] [address] Guille MayoPROF 14(COMP METB)on 58-55-5854Dwxguyj [Mass/Vol]3.8 g/dLNormal 3.4-5.0The [facility] Medical CenterComment on above:Performed By: #### LIPID, TSH, CMP #### [facility] [address] [address] [address] Guille MayoAlbumin/Globulin [Mass ratio]1.0 {ratio}NormalThe [facility] Medical CenterComment on above:Performed By: #### LIPID, TSH, CMP #### [facility] [address] [place] [address] Dr. Guille Hammond [Catalytic activity/Vol]217 U/LCritically gnsu83-073Njd [facility] CenterComment on above:Performed By: #### LIPID, TSH, CMP #### [facility] [address] [address] [address] Guille Dong [Catalytic activity/Vol]38 U/YNynspl47-12Qos [facility] CenterComment on above:Performed By: #### LIPID, TSH, CMP #### [facility] [address] [address] [address] Guille Ambriz gap [Moles/Vol]12.2 mmol/LNormalThe [facility] Comment on above:Performed By: #### LIPID, TSH, CMP #### [facility] [address] [address] [address] Guille An [Catalytic activity/Vol]32 U/FVifglo89-41Szt [facility] CenterComment on above:Performed By: #### LIPID, TSH, CMP #### [facility] [address] [address] [address] Guille MayoBilirubin [Mass/Vol]0.3 mg/dLNormal0.2-1.0The [facility] Comment on above:Performed By: #### LIPID, TSH, CMP #### [facility] [address] [address] [address] Guille MayoCalcium [Mass/Vol]9.3 mg/dLNormal8.5-10.1The [facility] Comment on above:Performed By: #### LIPID, TSH, CMP #### [facility] [address] [address] [address] Guille MayoChloride [Moles/Vol]106 mmol/EDgsigf76-082Yyu [facility] Comment on above:Performed By: #### LIPID, TSH, CMP #### [facility] [address] [place] [address] Dr. Guille MayoCO2 [Moles/Vol]27.2 mmol/HHgjtrk66.0-32.0[facility] Comment on above:Performed By: #### LIPID, TSH, CMP #### [facility] [address] [address] [address] Guille MayoCreatinine [Mass/Vol]1.31 mg/dLCritically high0.70-1.30The [facility] Medical CenterComment on above:Performed By: #### LIPID, TSH, CMP #### [facility] [address] [address] [address] Guille RodriguezGFR-AF BRITISH>60Normal>=60The [facility] Medical CenterComment on above:Performed By: #### LIPID, TSH, CMP #### [facility] [address] [address] [address] Guille RodriguezGFR-NON AF KOIXCNPA87 mL/min/1.44x0Axgmgsvocp low>=60The [facility] Medical CenterComment on above:Performed By: #### LIPID, TSH, CMP #### [facility] [address] [address] [address] Guille MayoGlobulin (S) [Mass/Vol]3.8 g/dLNormalThe Crystal HospitalComment on above:Performed By: #### LIPID, TSH, CMP #### [facility] [address] [address] [address] Guille MayoGlucose [Mass/Vol]98 mg/uPZodyri53-743ZgsKettering Health [facility] Comment on above:Performed By: #### LIPID, TSH, CMP #### [facility] [address] [address] [address] Guille MayoPotassium [Moles/Vol]4.4 mmol/LNormal3.5-5.1The [facility] Comment on above:Performed By: #### LIPID, TSH, CMP #### [facility] [address] [place] [address] Dr. Guille MayoProtein [Mass/Vol]7.6 g/dLNormal6.4-8.2[facility] Comment on above:Performed By: #### LIPID, TSH, CMP #### [facility] [address] [place] [address] Dr. Guille Vinsondium [Moles/Vol]141 mmol/SXruhxl669-670XdmKettering Health [facility] Comment on above:Performed By: #### LIPID, TSH, CMP #### [facility] [address] [place] [address] Dr. Guille MayoUrea nitrogen [Mass/Vol]27.0 mg/dLCritically high7.0-18.0[facility] MemorialComment on above:Performed By: #### LIPID, TSH, CMP #### [facility] [address] [place] [address] Dr. Guille Harris nitrogen/Creatinine [Mass ratio]20.6 mg/mgNoMercy Health Defiance HospitalComment on above:Performed By: #### LIPID, TSH, CMP #### [facility] [address] [place] [address] Dr. Guille Harper 06-87-0444MRE3.278 uIU/mLCritically low0.358-3.740[facility] MemorialComment on above:Performed By: #### LIPID, TSH, CMP ####[facility] [address] [place], [place] [address]Fi. Yiizzy ChangXR ankle RT min 3V*on 11-42-1893RP ankle RT min 3V*[facility] [employer] Other XR ankle RT min 3V*[facility] [employer] Other XR ankle RT min 3V*[facility] [employer] Other XR ankle RT min 3V*[place], [place] [address]Zquzw [employer] Other XR ankle RT min 3V*X[facility] [employer] Other XR ankle RT min 3V*[facility] [employer] Other XR ankle RT min 3V*Patient: Alethea Lei MR#: [id number] [employer] Other XR ankle RT min 3V*: 1970 Acct:[id number] [place] [employer] Other XR ankle RT min 3V*Age/Sex: 51 / M ADM Date: 01/06/22 [employer] Other XR ankle RT min 3V*[place] [facility] [place] Type: [facility] [employer] Other XR ankle RT min 3V*Attending Dr: Cj Gayle DO [employer] Other XR ankle RT min 3V*Copies to: Cj Gaylewedgies Other XR ankle RT min 3V*Ordering Provider: Cj Gayle [employer] Other XR ankle RT min 3V*Date of Service: 01/06/22[place] [employer] Other XR ankle RT min 3V* XR/XR ankle RT min 3V*: Displaced fracture of lateral malleolus of [facility] [employer] Other XR ankle RT min 3V*fibula, [facility] [employer] Other XR ankle RT min 3V*3views [facility]ankJohn [facility]. [facility] [employer] Other XR ankle RT min 3V*COMPARISON:11/22/21[place] [employer] Other XR ankle RT min 3V*HISTORY: Status post ORIF RIGHT lateral malleolus fractureBeaver [place] [employer] Other XR ankle RT min 3V*No hardware failure. Adequate bony alignment. Continued healing of distal fibular fracture.[employer] Other XR ankle RT min 3V* XR/XR ankle RT min 3V*[employer] Other XR ankle RT min 3V*IMPRESSION: Healing fracture. No hardware failure.[employer] Other XR ankle RT min 3V*Impression dictated by: Geovanny Magallanes M.D.01/06/2022 3:54 [facility] [employer] Other XR ankle RT min 3V*Dictation Location: [address] [employer] Other XR ankle RT min 3V*Transcribed By: [facility] 01/06/22 [facility] [employer] Other XR ankle RT min 3V*Dictated By: Geovanny Magallanes DO 01/06/[address] [place] [address] [employer] Other XR ankle RT min 3V*Signed By:[employer] Other XR ankle RT min 3V*01/06/[address] [place] [address] [employer] Other XR ankle RT min 3V*on 89-05-9294AD ankle RT min 3V* [facility] [employer] Other XR ankle RT min 3V*[facility] [employer] Other XR ankle RT min 3V*[place] [facility] Other XR ankle RT min 3V*JUAN Leal [address]Gjcpm[facility] [employer] [place] [employer] Other XR ankle RT min 3V*XRay ReportMulticare Tacoma General Hospital [employer] [place] [employer] Other XR ankle RT min 3V*[place] [facility] Other XR ankle RT min 3V*Patient: Alethea Lei MR#: [id number] [employer] Other XR ankle RT min 3V*: 1970 Acct:[id number] [facility] [employer] Other XR ankle RT min 3V*Age/Sex: 51 / M ADM Date: 10/16/21 [facility] [employer] Other XR ankle RT min 3V*Loc: SOXD Room: Type: [facility] [employer] Other XR ankle RT min 3V*Attending Dr: Cj Gayle DO [place] [facility] Other XR ankle RT min 3V*Copies to: Cj Gayle, [employer] Other XR ankle RT min 3V*Ordering Provider: Cj Gayle [employer] Other XR ankle RT min 3V*Date of Service: 10/16/21[place] [facility] Other XR ankle RT min 3V* XR/XR ankle RT min 3V*: Displaced fracture of lateral malleolus of [facility] [employer] Other XR ankle RT min 3V*fibrhona [facility] [employer] Other XR ankle RT min 3V*RIGHT ANKLE - 3 [place] [facility] Other XR ankle RT min 3V*CLINICAL HISTORY: ORIF right lateral malleolus fracture. [facility] Other XR ankle RT min 3V*COMPARISON: Intraoperative study [facility]20[facility] Other XR ankle RT min 3V*FINDINGS:[employer] Other XR ankle RT min 3V*syndesmotic screw without evidence of hardware complication. Fracture line is still evidentBe[place] [facility] Other XR ankle RT min 3V*suggestive of incomplete healing. Medial malleolar fracture is unchanged.. Soft tissue swelling.[employer] Other XR ankle RT min 3V*Plantar spurring.[employer] Other XR ankle RT min 3V* XR/XR ankle RT min 3V*[employer] Other XR ankle RT min 3V*IMPRESSION:[employer] Other XR ankle RT min 3V*NO EVIDENCE OF HARDWARE COMPLICATION.[employer] Other XR ankle RT min 3V*Impression dictated by: Panda De Guzman Jr., D.O.10/16/2021 1:10 [facility] [employer] Other XR ankle RT min 3V*Dictation Location: [place] [address] [employer] Other XR ankle RT min 3V*Transcribed By: PWS 10/16/21 [facility] [employer] Other XR ankle RT min 3V*Dictated By: Panda De Guzman Jr DO 10/16/[address] [place] [address] [employer] Other XR ankle RT min 3V*Signed By:[employer] Other XR ankle RT min 3V*10/16/[address] [place] [address] [employer] Other [id number] Positive/NegativeOrdered By: Cj Gayle on 09-20-7243TLWA-CoV-2 (COVID-19) N gene GARY+probe Ql (Resp)NegativeNegative [facility] HospitalComment on above:Testing for SARS-CoV-2 by RT-PCR This test was developed and its performance characteristics determined by [employer] ([employer]) and validated at the [facility]. This test has not been FDA [...] unless the authorization is terminated or revoked sooner.CBC AUTO DIFFon 29-30-8230BKWF #0.0 103/ulNormal0.0-0.1K[facility]tering Health Greene MemorialComment on above:Performed By: #### CBC ####[facility] Xgockquhcg[address] [place], [place] [address]Dr.Yilan ChangBasophils/100 WBC (Bld)0.2 %Normal0.2-2.0The [facility] Medical CenterComment on above:Performed By: #### CBC ####[facility] Bzskqujveh[address] [place], [place] [address]Dr.Yilan ChangEO #0.1 103/ulNormal0.0-0.7The [facility] CenterComment on above:Performed By: #### CBC ####[facility] Oqjuthzswt[address] [place], [place] [address]Dr.Yilan ChangEosinophils/100 WBC (Bld)1.2 %Normal 0.9-7.0The [facility] CenterComment on above:Performed By: #### CBC ####[facility] Evnshkpvnc376[address] [place], [place] [address]Dr.Guille Mayo Erythrocyte distribution width (RBC) [Ratio]12.2 %Imxhwm89.0-15.0The [facility] CenterComment on above:Performed By: #### CBC ####[facility] Nckztnwran354[address] [place], [place] [address]Dr.Guille MaoyHematocrit (Bld) [Volume fraction]38.0 %Critically low42.0-54.0The [facility] Hill HospitalComment on above:Performed By: #### CBC ####[facility] Tljelatzpq232[address] [place], [place] [address]Dr.Guille MayoHemoglobin (Bld) [Mass/Vol]12.8 g/dL Critically low14.0-18.0The [facility] CenterComment on above:Performed By: #### CBC ####[facility] Llgzcamnvi789[address] [place], [place] [address]Dr. Kylahizzy ChangIG #0.03 10e3/ulNormal0.00-0.03The [facility] CenterComment on above: Performed By: #### CBC ####[facility] Sgcwndbyjs9[address] [place], [place] [address]Dr.Kylahizzy ChangIG %0.4 %Normal0.0-0.5The [facility] CenterComment on above:Performed By: #### CBC ####[facility] Tgpsetcckp2877[address] [place], [place] [address]Dr.Guille MayoLYMPH #0.9 103/ulCritically low1.2-3.8The [facility] CenterComment on above:Performed By: #### CBC ####[facility] Gqvooxbdgp36[address] [place], [place] [address]Dr.Guille MayoLymphocytes/100 WBC (Bld)10.7 %Critically low20.5-60.0The [facility] CenterComment on above:Performed By: #### CBC ####[facility] Juhldcpapo107[address] [place], [place] [address]Dr.Guille GaelMANUAL DIFF REQ NONormalThe [facility] CenterComment on above:Performed By: #### CBC ####[facility] [address]rg[address]rd[address] [place] [address]Dr. Guille MayoH (RBC) [Entitic mass]32.2 ksCxmdnd97.9-34.0The [facility] Comment on above:Performed By: #### CBC ####[facility] T[address]axibhd[address] [place] [address]Dr.Guille MayoHC (RBC) [Mass/Vol]33.7 g/dL Ghxznb38.9-35.2The [facility] CenterComment on above:Performed By: #### CBC ####[facility] L[address]zkkwqjt27[address] [place] [address]Dr. Guille MayoV (RBC) [Entitic vol]95.7 fLCritically high80.0-94.0The [facility] CenterComment on above:Performed By: #### CBC ####[facility] Oveubyhwuz8865[address] [place], [place] [address]Dr.Guille MayoMONO #0.7 103/ulNormal0.3-0.8The [facility] CenterComment on above:Performed By: #### CBC ####[facility] Tvlniuyzsi122[address] [place], [place] [address]Dr. Guille MayoMonocytes/100 WBC (Bld)9.0 %Normal1.7-12.0The [facility] Comment on above:Performed By: #### CBC ####[facility] Eanlkjmgyr738[address] [place], [place] [address]Dr.Guille MayoNEUT #6.4 103/ulNormal1.4-6.5 The [facility] CenterComment on above:Performed By: #### CBC ####[facility] Cuclomlqwe4[address] [place], [place] [address]Dr.Guille Mayo Neutrophils/100 WBC (Bld)78.5 %Critically high43.0-75.0The [facility] Comment on above:Performed By: #### CBC ####[facility] Vhisndrfge[address] [place], [place] [address]Dr.Guille MayoPlatelet mean volume (Bld) [Entitic vol]9.9 fLNormal9.5-13.5The [facility] CenterComment on above:Performed By: #### CBC ####[facility] [address] [place], [place] [address]Gn.Guille MayoPLT152 103/kmHsrzyx150-646Vgz [facility] CenterComment on above:Performed By: #### CBC ####[facility] Qjuvboolzz27[address] [place], [place] [address]Di.Guille MayoRBC3.97 106/ulCritically low4.70-6.10The [facility] CenterComment on above:Performed By: #### CBC ####[facility] Dbbcsqnxho95[address] [place], [place] [address]Wg.Guille MayoWBC8.1 103/ul Normal4.0-11.0The [facility] CenterComment on above:Performed By: #### CBC ####[facility] Sgtvyzvkvb[address] [place], [place] [address]Xp. Guille MayoCT HEAD WO CONon 84-31-8931SL HEAD WO CONEXAMINATION: CT HEAD WO CON HISTORY: HEADACHE after [...] Electronically authenticated by: SANDY DÍAZ Date: 2021-09-18 15:44NormalThe [facility] Medical CenterCovid-19 PCR (CVDTB)on 49-50-4562OEGI-CoV-2 (COVID-19) RNA GARY+probe Ql (Unsp spec)Not detectedNormalNOT DETECTEDThe [facility] Comment on above:Result Comment: When diagnostic testing is negative, the [...] for this test is supported by the [employer] of Health and Human Service's declaration that circumstances exist to justify the emergency use of in vitro diagnostics for the detection and/or diagnosis of the virus that causes COVID-19. This EUA will remain in effect for the duration of the COVID-19 declaration justifying emergency of IVDs, unless it is terminated or revoked by the FDA (after which the test may no longer be used).Performed By: #### CVDTBH ####[facility] Bkoqdlfgre[address] [place], [place] [address]Dr. Kylahlan ChangPROF CHEM 8 (BAS METB)on 64-25-0762Dpwwc gap [Moles/Vol]12.4 mmol/LNormalThe [facility] CenterComment on above:Performed By: #### BMP ####[facility] Orihepmagu956[address] [place], [place] [address]Dr. Yiizzy ChangCalcium [Mass/Vol]8.7 mg/dLNormal8.5-10.1The [facility] CenterComment on above:Performed By: #### BMP ####[facility] Qsxlwkwdnw1950[address] [place], [place] [address]Dr.Yilan ChangChloride [Moles/Vol]107 mmol/LNormal 98-107The [facility] CenterComment on above:Performed By: #### BMP ####[facility] Lwqvzihbtj42[address] [place], [place] [address]Dr.Yilan ChangCO2 [Moles/Vol]28.0 mmol/KSfrowx47.0-32.0The [facility] CenterComment on above: Performed By: #### BMP ####[facility] Pjlhelzugf74[address] [place], [place] [address]Dr.Yilan ChangCreatinine [Mass/Vol]1.45 mg/dL Critically high0.70-1.30The [facility] CenterComment on above:Performed By: #### BMP ####[facility] Ttcoubufvd733[address] [place], [place] [address]Dr.Kylahlan ChangEGFR-AF BRITISH>60Normal>=60The [facility] Medical CenterComment on above:Performed By: #### BMP ####[facility] Hcjgabpczo33[address] [place], [place] [address]Dr.Kylahlan ChangEGFR-NON AF MJUFFEOC19 mL/min/1.73m2 Critically low>=60The [facility] CenterComment on above:Performed By: #### BMP ####[facility] Llhaaqgpvu8067[address] [place], [place] [address]Dr. Guille ChangGlucose [Mass/Vol]87 mg/lLXpnpup91-714Sfd [facility] CenterComment on above:Performed By: #### BMP ####[facility] Vdbfbmovnu9936[address] [place], [place] [address]Dr.Guille MayoPotassium [Moles/Vol]4.4 mmol/LNormal 3.5-5.1The [facility] CenterComment on above:Performed By: #### BMP ####[facility] Gxmhkhrrad410[address] [place], [place] [address]Dr.Guille Mayo Sodium [Moles/Vol]143 mmol/NEjfgju412-642Ujh [facility] CenterComment on above: Performed By: #### BMP ####[facility] Gkindkaxgb76[address] [place], [place] [address]Dr.Guille ChangUrea nitrogen [Mass/Vol]24.0 mg/dL Critically high7.0-18.0The [facility] CenterComment on above:Performed By: #### BMP ####[facility] Dohqsbpjch[address] [place], [place] [address]Dr. Kylahlan ChangUrea nitrogen/Creatinine [Mass ratio]16.6 mg/mgNormalThe [facility] CenterComment on above:Performed By: #### BMP ####[facility] Umgcdxdpli76[address] [place], [place] [address]Dr.Guille MayoXR CHEST 1 Von 15-61-5097JP CHEST 1 VEXAMINATION: XR CHEST 1 V HISTORY: COUGH , [...] Electronically authenticated by: SANDY DÍAZ Date: 2021-09-18 15:36[facility] CenterCT [facility] WO CONon 19-29-2137YJ CHEST WO CONEXAMINATION: CT CHEST WO CON HISTORY: Osteoporosis , [...] Electronically authenticated by: NORMA ROSS Date: 2021-08-02 08:52[facility] CenterXR DEXA BONE DENSITYon 05-30-2967VF DEXA BONE DENSITY EXAMINATION: XR DEXA BONE DENSITY, 07/31/2021 9:49 AM EDT HISTORY: [...] Electronically authenticated by: NORMA ROSS Date: 2021-07-31 16:14[facility] CenterAUD - Progress Noteson 95-42-6134Fphkzna mass concPt. referred for hearing evaluation by Dr. Foster, accompanied [facility] Caitie[facility] Pt. returns today after having ears cleaned out. Pt. denied ear pain at the time of testing. Completed evaluation, resorting to play audiometry for pure tone testing. See AUD-Assessments for Report/Results. DX CODES: H90.3 sensorineural hearing loss bilateralNoSouthwest General Health CenterCoding Summary.on 29-43-9401Otvujd Summary.CODING DATE: 04/20/2018 FINAL [facility] STATUS: PAYOR: Medicare APC DESCRIPTION [id number] [...] Keyona Grady CphT Date Saved: 04/20/2018 09:11 [facility] - Progress Noteson 27-46-0768Wprlctl mass concpt. referred for hearing evaluation by Muna Foster DO, accompanied by Jeny ricci direct care provider from [facility] Otoscopy revealed cerumen in the right ear canal clocking view of the tympanic membrane, left ear with moderate cerumen but tympanic membrance visible. Discussed with Jeny, did not complete evaluation today. He will return after bilateral ear cleaning. Called and spoke to [facility]Nursing/A[place]ley and advised her of the above.NormalC[facility] 09-25-8787Rrszrfi aminotransferase (ALT)35 U/LNormal<40NatMetroHealth Cleveland Heights Medical CenterASTon 55-67-4549Enctikbrr aminotransferase (AST)26 U/LNormal 15-50NatMetroHealth Cleveland Heights Medical CenterAlbuminon 37-23-5666Irzqcpl1.5 g/dLNormal 3.4-5.2NationAultman Alliance Community HospitalBUNon 32-26-9561Wxjs mg/dLHigh 5-18NatMetroHealth Cleveland Heights Medical CenterCreatinineon 00-84-3105Rbvnqcwnue6.21 mg/dL High0.50-1.20NatMetroHealth Cleveland Heights Medical CenterElectrolyteson 85-72-4570Gaxbdoyh081 mmol/PXzdk46-367HnwkkmxiluMetroHealth Cleveland Heights Medical CenterCO224 mmol/VJembvg05-34LtvyfnvzlfMetroHealth Cleveland Heights Medical CenterPotassium molar conc4.4 mmol/LNormal3.7-5.3[facility] Hospitalodium141 mmol/DDicwzg077-002PvqwgfrjrnMetroHealth Cleveland Heights Medical Center Vital Signs Date TimeVital SignValuePerforming IbtquoqvbQijiykrq45-50-2624 11:42-0400Body xqnuhu832.7 cmGlenn Brown DPM Work Phone: [facility] HospitalKtebnkmjou73-31-3224 11:42-0400Body mass index (BMI) [Ratio]28.13 kg/h0Dwvadxpb Brown DPM Work Phone: [facility] HospitalWbbellmcww79-96-0990 11:42-0400Body .92 kgGlenn Brown DPM Work Phone: [facility] HospitalIpxgbuifox90-86-7907 11:42-0400Respiratory rate16 /minGlenn Brown DPM Work Phone: [facility] HospitalHtnupwcmjq27-74-5818 14:21-0400Body vxqhit412.72 cmDaniolga Foster DO Work Phone: 1(437)603-[address] [place], [place] 1602207-30-2025 14:21-0400 Body mass index (BMI) [Ratio]28.2 kg/j2Gylxlb Foster DO Work Phone: 1(560)568-[address] [place], [place] 3830507-30-2025 14:21-0400 Body caithz16.14 kgDaniel Foster DO Work Phone: 1(376)289-[address] [place], [place] 3830507-30-2025 14:21-0400 Diastolic blood fcuknxdf262 mm[Hg]Go Foster DO Work Phone: [phone])[address]07-30-2025 14:21-0400 Systolic blood mm[Hg]Go Foster DO Work Phone: 1(341)[address]03 [address]06-27-2025 14:40-0400 Body .1 cmDaniel Foster DO Work Phone: 1(901)[address]06-27-2025 11:00-0400 Body vvkwhzhedkd02.6 [degF]Adams Weaver MD Work Phone: 1([phone])39936 [address]06-27-2025 11:00-0400 Diastolic blood pgtxpvoo82 mm[Hg]Adams Weaver MD Work Phone: 1(833)[address]236 [address]06-27-2025 11:00-0400 Heart rate71 /Carmen Weaver MD Work Phone: 1(711)78336 [address]06-27-2025 11:00-0400 Respiratory rate16 /Carmen Weaver MD Work Phone: 1(981)13436 [address]06-27-2025 11:00-0400 SaO2% (BldA) [Mass fraction]99 %Adams Weaver MD Work Phone: 1(829)266-[address] [place], [place] 4703406-27-2025 11:00-0400 Systolic blood mm[Hg]Adams Weaver MD Work Phone: [phone])[address]06-27-2025 06:00-0400 Body beolls73 kgAdams Weaver MD Work Phone: [facility]06-25-2025 20:00-0400 Body yjratohgxgi50.5 [degF]Go Foster DO Work Phone: [facility]06-25-2025 20:00-0400 Diastolic blood atgxhvpd86 mm[Hg]Go Foster DO Work Phone: [facility]06-25-2025 20:00-0400 Heart rate78 /minDaniel Foster DO Work Phone: 1(589)251-[address] [place], [place] 3830506-25-2025 20:00-0400 Respiratory rate20 /minDaniel Foster DO Work Phone: 1(849)809-[address] [place], [place] 1602206-25-2025 20:00-0400 SaO2% (BldA) [Mass fraction]94 %Go Foster DO Work Phone: 1(122)387-[address] [place], [place] 1602206-25-2025 20:00-0400 Systolic blood aipszdfb915 mm[Hg]Go Foster DO Work Phone: 1(083)210-[address] [place], [place] 3830506-25-2025 15:25-0400 Body ovmhrk964.1 cmDaniel Foster DO Work Phone: 1(643)145-[address] [place], [place] 3830506-25-2025 01:05-0400 Body wjyuit38.6 kgDaniel Foster DO Work Phone: [facility]06-09-2025 09:54-0400 Body .7 cmGlenn Brown DPM Work Phone: [facility] HospitalOvqvzorqvp20-31-8159 09:54-0400Body mass index (BMI) [Ratio]28.13 kg/n8SnljwqtvGlenn Brown DPM Work Phone: [facility] HospitalFuscqefjpx79-96-1945 09:54-0400Body nkbiwl28.92 kgGlenn Brown DPM Work Phone: [facility] HospitalGweuvkaofi71-40-9327 09:54-0400Respiratory rate18 /minNicholas Brown DPM Work Phone: [facility] HospitalGdogmefrme44-88-4455 09:55-0400Body oqcpsx136.7 cmNicholas Brown DPM Work Phone: [facility] HospitalVffwqhoori01-08-2825 09:55-0400Body mass index (BMI) [Ratio]28.13 kg/c9Jdmewckf Brown DPM Work Phone: 1(694)851-[address] [place], [place] [address]Hkqkhnsioj34-69-1682 09:55-0400Body .92 kgNicholas Brown DPM Work Phone: 1(790)793-[address] [place], [place] [address]Hdientqjqs37-19-6472 09:55-0400Respiratory rate16 /minNicholas Brown DPM Work Phone: 1(510)848-[address] [place], [place] [address]Rlburuylqd75-19-6634 10:03-0400Body .7 cmNicholas Brown DPM Work Phone: [phone])829-[address] [place], [place] [address]Gfxampczjk89-41-8208 10:03-0400Body mass index (BMI) [Ratio]28.13 kg/v8Qikwxtdq Brown DPM Work Phone: 1(829)996-[address] [place], [place] [address]Rgdhfcgyqa62-54-2489 10:03-0400Body objtuv25.92 kgNicholas Brown DPM Work Phone: [facility] HospitalAyyojunxtb07-69-0215 10:03-0400Respiratory rate16 /minNicholas Brown DPM Work Phone: 1(010)480-[address] [place], [place] [address]Pshfptiala86-12-2239 09:46-0400Body dggnne600.7 cmNicholas Brown DPM Work Phone: [facility] HospitalHeqnkdrqsu70-19-0756 09:46-0400Body mass index (BMI) [Ratio]28.13 kg/v8Medejirk Brown DPM Work Phone: [facility] HospitalQtnhdkysij66-93-4941 09:46-0400Body egpxbc68.92 kgNicholas Brown DPM Work Phone: 1(937)849-[address] [place], [place] [address]Zeakuwmaeu58-99-5251 09:46-0400Respiratory rate16 /minGlenn Mark DPM Work Phone: [facility] HospitalRusxitwwfy66-11-5176 16:06-0400Body elikia329.7 cmGlenn Mark DPM Work Phone: [facility] HospitalLyvhxsipyg80-12-1190 16:06-0400Body mass index (BMI) [Ratio]28.13 kg/v5Bcfpolie Brown DPM Work Phone: 1(647)589-[address] [place], [place] [address]Heausgwipz50-59-1325 16:06-0400Body toevcc37.92 kgMelvairlanda Brown DPM Work Phone: 1([phone])647-[address] [place], [place] [address]Kbqkxefjsz13-59-6241 16:06-0400Diastolic blood ibebbsoz59 mm[Hg]Glenn Brown DPM Work Phone: 1(421)804-[address] [place], [place] [address]Fxdxmkmtod68-58-8896 16:06-0400Heart rate69 /min Glenn Brown DPM Work Phone: [phone])158-[address] [place], [place] [address]Mjxecgxrtk40-18-8045 16:06-0400Systolic blood kaqeynkf418 mm[Hg]Glenn Brown DPM Work Phone: 1(350)217-[facility] HospitalJegkerahub33-67-4698 09:29-0500Body wnvavg762.7 cmMelvairlanda Brown DPM Work Phone: [facility] HospitalXmpyyfhoty37-29-5373 09:29-0500Body mass index (BMI) [Ratio]28.13 kg/a5Uoxkxxct Brown DPM Work Phone: 1(454)240-[address] [place], [place] [address]Vaqnypugim73-39-3765 09:29-0500Body aayjkc89.92 kgMelvairlanda Brown DPM Work Phone: [facility] HospitalAkwfzubikv48-45-8988 09:29-0500Diastolic blood yodyzigp00 mm[Hg]Glenn Brown DPM Work Phone: 1(820)797-[address] [place], [place] [address]Ylfnqolatz94-10-6018 09:29-0500Heart rate71 /min Glenn Brown DPM Work Phone: 1(146)880-[address] [place], [place] [address]Awiopexskt40-68-6924 09:29-0500Systolic blood jceyivnt926 mm[Hg]Glenn Brown DPM Work Phone: [facility] HospitalCkorrvvmtn77-12-2530 10:52-0500Body hqoedu187.7 cmAgiovanni Hsu GEAR [employer]BER SET UP OPERATOR Work Phone: [facility] HospitalVwbvwisqvk83-52-4266 10:52-0500Body mass index (BMI) [Ratio]28.13 kg/p4UqvtfbAna Maria Lopezr GEAR [employer] SET UP OPERATOR Work Phone: [facility] HospitalKwqiurxdek10-27-4085 10:52-0500Body syzasz66.92 kgAna Maria Ramirezmor GEAR HOBBER SET UP OPERATOR Work Phone: [facility] HospitalAepbniqgej03-17-4944 10:52-0500Diastolic blood mm[Hg]Ana Maria Hsu GEAR [employer] SET UP OPERATOR Work Phone: [facility] HospitalQtwreyfzpn73-90-0212 10:52-0500Heart rate69 /min Ana Maria Hsu GEAR H[employer] SET UP OPERATOR Work Phone: [facility] HospitalIwfobbytaj86-74-3158 10:52-0500Systolic blood hqbuwnpu743 mm[Hg]Ana Maria Hsu GEAR H[employer] SET UP OPERATOR Work Phone: [facility] HospitalQobrhuatpz22-06-4567 12:30-0500Body mscidj372.8 cmJustjarrod Gayle Other [place] [facility] Other 11-14-2022 12:30-0500Body mass index (BMI) [Ratio] 27.69 kg/z9Lejjjh Nalini Other [facility] Other 11-14-2022 12:30-0500Body xsjhoj09.54 kgJustin Nalini Other [employer] Other 08-02-2022 17:03-0400Diastolic blood ckubscso983 mm[Hg]DO Go Foster Work Phone: [facility]08-02-2022 17:03-0400 Heart rate79 /minDO Go Foster Work Phone: [facility]08-02-2022 17:03-0400 Respiratory rate16 /Seymour Foster Work Phone: 1(905)981-[address] [place], [place] 1602208-02-2022 17:03-0400 SaO2% (BldA) [Mass fraction]94 %DO Go Foster Work Phone: 1(244)174-[address] [place], [place] 1602208-02-2022 17:03-0400 Systolic blood usukozdm164 mm[Hg]DO Go Foster Work Phone: 1(601)317-[address] [place], [place] 3830508-02-2022 15:05-0400 Body gcioyafkzmx46.1 [degF]DO Go Foster Work Phone: 1(975)265-[address] [place], [place] 3830508-02-2022 15:05-0400 Inhaled oxygen flow rate6 L/Seymour Foster Work Phone: [phone] [place], [place] 3830508-02-2022 14:22-0400 Body .72 cmDO Go Foster Work Phone: [phone]08-02-2022 14:22-0400 Body mass index (BMI) [Ratio]29.6 kg/m2DO Go Foster Work Phone: [phone] [place], [place] 3830508-02-2022 14:22-0400 Body wnokmb08.4 kgDO Go Foster Work Phone: [phone] [place], [place] 3830506-22-2022 10:45-0400 Body kgqpmu471.8 cmCamerongreat lakes health system Tal Other [employer] Other 06-22-2022 10:45-0400Body mass index (BMI) [Ratio] 27.55 kg/s2Vfppu Tal Other [employer] Other 06-22-2022 10:45-0400Body ngvxxotjjyw25 [degF]Nallely Parada Other [facility] Other 06-22-2022 10:45-0400Body mhbeap05.09 kgNallely Parada Other [facility] Other 06-22-2022 10:45-0400Diastolic blood sagnnasv68 mm[Hg] Nallely Parada Other [facility] Other 06-22-2022 10:45-0400Respiratory rate20 /minNallely Parada Other [facility] Other 06-22-2022 10:45-2299TkU9% (BldA) [Mass fraction]98 % Nallely Parada Other [facility] Other 06-22-2022 10:45-0400Systolic blood dcqyhdvx139 mm[Hg] Nallely Parada Other [employer] Other Encounters Encounter DateEncounter TypeCare ProviderFacilityStart: 69-39-0342jogjvmlexbHZ HERBER OROURKERAFacility:EU NorwalkStart: 12-28-2024 End: 46-51-5701Hljhsky encounter procedureSarah Brown PA-C Work Phone: [facility] OrthopedicsComment on above:Displ spiral fx shaft of r tibia, init for opn fx type I/2 (Primary Dx)Start: 12-28-2024 End: 76-47-7551Ayaojzrurv hospital visit by physicianPhe Ip/Op X-Ray 5 [facility] Diagnostic RadiologyComment on above:Displ spiral fx shaft of r tibia, init for opn fx type I/2Start: 12-28-2024 End: 16-57-6474bsmmmbiuunGSUPHLY PROVIDERFacility:METROHealthStart: 12-12-2024 End: 10-68-1980jynrrmgszmKDPI A ERENFacility:FTMCStart: 12-06-2024 End: 25-22-7486Bvubcl outpatient new 45 Mary Hein MD Work Phone: [facility] Hand and Upper Extremity CenterComment on above:Closed displaced fracture of right clavicle, unspecified part of clavicle, initial encounter (Primary Dx)Start: 12-06-2024 End: 51-42-2257cvvweakvxvCDHEYPW PROVIDERFacility:METROHealthStart: 12-05-2024 End: 75-93-9246iynznlfwwbMRYA P SHAPIRO KREWFacility:[facility] Start: 11-30-2024 End: 09-48-6207Pvfogey encounter procedureSarah Brown PA-C Work Phone: [facility] [place] OrthopedicsComment on above:Displ spiral fx shaft of r tibia, init for opn fx type I/2 (Primary Dx)Start: 11-30-2024 End: 22-68-1811qbfaknniohLUMXOFL PROVIDERFacility:METROHealthStart: 11-22-2024 End: 56-57-9956Vifnuhtir encounterJustin Martinez ESPINAL MD Work Phone: [facility] [facility] ORStart: 11-18-2024 End: 09-44-4355Jheujravdf and management of inpatientPamarbella Rosas MD Work Phone: [facility] RadiologyComment on above:ArrivedStart: 11-14-2024 End: 19-85-7288Sblnegfrnn and management of inpatientOwen Sanders MD Work Phone: [facility] Main ORComment on above:ArrivedStart: 11-13-2024 End: 88-21-4537Yqrkqhsgmc and management of inpatientUNKNOWN PROVIDER Facility:METROHealthStart: 48-69-8027Agdxwulhit and management of inpatient UNKNOWN PROVIDERFacility:METROHealthStart: 11-13-2024 End: 99-83-0529Sqyqtgvwku and management of inpatientIP ORTHOPAEDIC TRAUMA CONSULTFacility:METROHealthStart: 11-13-2024 End: 11-13-2024Sofia DE ANDA Work Phone: [facility] Social WorkComment on above:Trauma/complex Medical SituationStart: 51-35-1535Rhadewrvj department patient visitUNKNOWN PROVIDERFacility:METROHealthStart: 11-13-2024 End: 69-90-4271Cogrxtphet and management of inpatientPatrick Phi ACKERMAN Work Phone: [facility] RadiologyComment on above:ArrivedStart: 51-05-1275Uwmpmztbq department patient visitUNKNOWN PROVIDERFacility:METROHealth Start: 11-13-2024 End: 35-71-0800Kbtqddzoe department patient visitJohn ParenteFacility:FTMCStart: 11-03-2024 End: 52-93-5230Ajluwp Ibis Brown DPM Work Phone: noms CI PODIATRYStart: 11-03-2024 End: 91-57-6032Kwndki Ibis Brown DPM Work Phone: noMS CI PODIATRYStart: 11-03-2024 End: 85-33-8772Zslicw outpatient visit 15 minutesNicyoan Brown DPM Work Phone: noms CI PODIATRYComment on above:Lisfranc dislocation, left, initial encounter (Primary Dx); Pain due to onychomycosis of toenails of both feetStart: 11-03-2024 End: 59-90-3912izznweifglDZYJTKVF A BROWNNot AvailableStart: 10-12-2024 End: 37-19-4826pvfrccimyfQDBERSF NKANSAH-AMANKRAFacility:EU [place]uskyStart: 10-12-2024 End: 38-57-3836Ibeecyv encounter Derrick GAGNON [facility] Start: 09-29-2024 End: 05-46-6657ysrbxwrcqgZL HERBER HENSON-AMANKRAFacility:FTMCStart: 39-86-0724qpmaiwrvzxRnddag TannaFacility:EU BellevueStart: 09-26-2024 End: 73-67-4313gadkralkedJO HERBER HENSON-AMANKRAFacility:FTMCStart: 09-21-2024 End: 76-64-5137gygtopvtjiCgbzfx A Foster DO Work Phone: [facility] Work Phone: Start: 09-21-2024 End: 57-08-0216Vmwuhvx encounter procedureAna Maria Kwon APRN-[facility] Work Phone: Start: 09-07-2024 End: 38-34-8891mblsbjmjazVhytws J GaleaFacility:EU [place]kyStart: 09-07-2024 End: 12-56-9891Ujkofsk encounter procedureAlysha Юлия Bautista [facility] Start: 08-24-2024 End: 84-43-9182agffdzxageOabhaq J GaleaFacility:EU [place]uskyStart: 08-24-2024 End: 71-19-3024Bwhukxq encounter procedureAlysha J Galtk [facility] Start: 82-93-0602narjyhhlguRkyjpe GaleaFacility:EU MassimokStart: 37-21-9065Zhp-patient / Non-visitClint Brizuela MD-[facility] Work Phone: Start: 08-17-2024 End: 54-57-6321Mfkqhqtilk and management of inpatientDaniel A Foster Facility:[facility]art: 08-16-2024 End: 29-69-1565aboeqkcxtuXohoyd A Foster DO Work Phone: [facility] Work Phone: Start: 08-16-2024 End: 29-88-7200Dvqqreji ReferredGeovanny Olmos DO-LAB [facility] Start: 08-14-2024 End: 98-46-4785ywwedtgianUvids T ParkerFacility:[facility] Hospitaltart: 08-14-2024 End: 05-24-7429Lrlioogj ReferredAdams Weaver MD-LAB [facility] Start: 08-01-2024 End: 63-58-7615Pysqqb flowsLinsey Brown DPM Work Phone: noMS [place] PODStart: 08-01-2024 End: 02-75-5512Lxydfm flowsphiNicyoan Brown DPM Work Phone: noMS [place] PODStart: 08-01-2024 End: 83-52-4034Yqikbm outpatient visit 25 minutesNicyoan Brown DPM Work Phone: [facility] NV PODComment on above:Lisfranc dislocation, left, initial encounter (Primary Dx)Start: 08-01-2024 End: 81-96-1718rervrawulnGJZIWNHH A BROWNNot AvailableStart: 07-11-2024 End: 33-59-9150Mkygwd flowsheetNicholirlanda Brown DPM Work Phone: noMS [place] PODStart: 07-11-2024 End: 80-65-8195Vqalzz flowsphiNicyoan Brown DPM Work Phone: noMS [place] PODStart: 07-11-2024 End: 05-43-7937Owxjac outpatient visit 25 minutesNicyoan Brown DPM Work Phone: noMS NV PODComment on above:Lisfranc dislocation, left, initial encounter (Primary Dx)Start: 07-11-2024 End: 22-92-5100yxkknrrkryTSFFJPCS A BROWNNot AvailableStart: 06-17-2024 End: 42-23-0452Aniqyq flowsheetNicholas A Brown DPM Work Phone: noms [place] PODStart: 06-17-2024 End: 10-01-3655Uyymcc flowsheetNicholas A Brown DPM Work Phone: noMS [place] PODStart: 06-17-2024 End: 66-16-0953bpcvanhhbnEVGLHOJR A BROWNNot AvailableStart: 06-17-2024 End: 15-43-0771Bmlmrx outpatient visit 25 minutesNicholas A Brown DPM Work Phone: noMS [place] PODComment on above:Lisfranc dislocation, left, initial encounter (Primary Dx)Start: 05-30-2024 End: 22-57-2143klqgfipsytOFZOChuck Aburtocility:[facility] Start: 05-27-2024 End: 03-75-6864Yxrjos flowsheetNicholas A Brown DPM Work Phone: noMS [place] PODStart: 05-27-2024 End: 32-38-1837Qazmlk flowsheetNicholas A Brown DPM Work Phone: noMS [place] PODStart: 05-27-2024 End: 74-78-6278Wtisle outpatient visit 25 minutesNickavitaas A Brown DPM Work Phone: noMS NV PODComment on above:Lisfranc dislocation, left, initial encounter (Primary Dx)Start: 05-27-2024 End: 96-39-1809jtnrddmvuyRLKFRDQK A BROWNNot AvailableStart: 05-18-2024 End: 22-64-6497Tewuet outpatient visit 15 minutesNicholas A Brown DPM Work Phone: noMS NV PODComment on above:Contusion of left foot, initial encounter (Primary Dx); Onychocryptosis; Toe pain, right; Abscess of toe, right; Venous insufficiencyStart: 05-18-2024 End: 64-54-1435wfnpgsxtthTQDIXGCZ A BROWNNot AvailableStart: 05-18-2024 End: 65-62-1914Aqwudx flowsheetNicholas A Brown DPM Work Phone: [facility] [place] PODStart: 05-18-2024 End: 14-69-4589Cbklrw flowsheetNicholas A Brown DPM Work Phone: noMS [place] PODStart: 05-16-2024 End: 39-61-0486aqxwfdhmbhUOFKOAUV A BROWNNot AvailableStart: 04-29-2024 End: 14-36-2583lupoxjrqmwTZJNZUJF A BROWNNot AvailableStart: 04-15-2024 End: 42-10-3731Qipphg flowsheetNicholas A Brown DPM Work Phone: noMS [place] PODStart: 04-15-2024 End: 82-62-2813Gvqpmp flowsheetNicholas A Brown DPM Work Phone: [facility] [place] PODStart: 04-15-2024 End: 18-82-1239Pcrgst outpatient visit 15 minutesNicholas A Brown DPM Work Phone: noMS NV PODComment on above:Onychocryptosis (Primary Dx); Abscess of toe, right; Toe pain, rightStart: 04-15-2024 End: 32-18-9342ymoxnkzpskYTNGLMZY A BROWNNot AvailableStart: 02-09-2024 End: 70-33-6639Ycoksz flowsheetAngela Jessicar GEAR HOBBER SET UP OPERATOR Work Phone: [facility]TEStart: 02-09-2024 End: 42-66-8590Zopfhh flowsheetAngela Ashleymor GEAR HOBBER SET UP OPERATOR Work Phone: [facility]TEStart: 02-09-2024 End: 90-53-0277Hcowng outpatient visit 25 minutesAngela Ashleymor GEAR HOBBER SET UP OPERATOR Work Phone: [facility] R[facility]TEComment on above:Seizure disorder (CMS/HCC) (Primary Dx); Frequent falls; Mental disability (CMS/HCC); Tuberous sclerosis (CMS/HCC)Start: 02-09-2024 End: 61-36-8110ihexkmfwleLYCOHZ DOROTHYNot AvailableStart: 01-16-2024 End: 58-10-7268Yxydvn encounterMetroHealthStart: 08-19-2023 End: 73-48-8908Oug Drop offDANIEL FOSTER [facility] Start: 08-19-2023 End: 33-98-6862ebldfzfhwtYEKZCQ HERRINGFacility:FTMCStart: 02-25-2023 End: 65-29-6177Duj Drop offDANIEL FOSTER [facility] Start: 02-25-2023 End: 10-46-5351pdaavplyhyJHEMKF HERRINGFacility:FTMCStart: 11-12-2022 End: 17-32-8706dibywxpetoMCREPQ HERRINGFacility:FTMCStart: 11-12-2022 End: 11-50-4569Tyg Drop offDANIEL FOSTER [facility] Start: 05-27-2022 End: 70-11-4034tzielvbaxtTV GO A HERRINGFacility:W4Tcmun: 05-81-3411Iyogsn encounterMetroHealthStart: 04-11-2022 End: 00-35-3202mkpktzbxmbVT GO A HERRINGFacility:P0Fcsps: 04-10-2022 End: 81-25-2424kafzrwkqtkKY GO A HERRINGFacility:L2Tjfsn: 04-09-2022 End: 93-41-8981vrglvpvvzwZsyvi Chaban Other [facility] Other Start: 23-46-3980Qocekjohw encounterKamal ChabanFPG Pulmonary DiseaseStart: 03-12-2022 End: 13-78-2166yibicxzkntKDChacha Foster Work Phone: [facility] Work Phone: Start: 03-12-2022 End: 59-85-0350Gvutfut encounter procedureDO Go Foster Work Phone: [facility]-Pet Scan Work Phone: Start: 03-11-2022 End: 21-56-2182hwwtmyksqcOIBenjamin FOSTERFacility:W3Bjzth: 02-06-2022 End: 46-74-7975reaxsxqaviMbtih Chaban Other [facility] Other Start: 84-83-8279Jqgduqtsz encounterKamal ChabanFPG Pulmonary DiseaseStart: 01-07-2022 End: 65-59-8659kdsxxizgsqTatddi Nalini Other [facility] Other Start: 54-16-4934Gwpjiffyc encounterJustin NaliniFPG [place] OrthopedicsStart: 63-97-2033Geqfoq follow up visit related to original pxJustin KelleyFPG [place] OrthopedicsStart: 01-06-2022 End: 58-97-0724vqhjbkboefOThCacha Foster Work Phone: [facility] Work Phone: Start: 01-06-2022 End: 66-71-8576Wfyulpe encounter procedure Go Foster Work Phone: [facility] Start: 12-04-2021 End: 44-35-7068Stzebsn encounter procedureStino Redmond [facility] Work Phone: MetroF[facility] HospitalStart: 11-22-2021 End: 61-35-7332ccregiizslEjofqm Nalini Other [facility] Other Start: 76-69-9508Xpgwbg follow up visit related to original Sally Leal OrthopedicsStart: 11-22-2021 End: 32-06-5087Cysshve encounter procedureDO Go oFster Work Phone: [facility] Start: 10-16-2021 End: 68-67-8940ichoipkylaOnbuao Kelley Other [facility] Other Start: 40-88-8667Gjyckh follow up visit related to original [facility]al OrthopedicsStart: 10-16-2021 End: 00-66-2639Uczgasj encounter procedureDO Go Bairdring Work Phone: [facility]-XRay [facility] Start: 09-24-2021 End: 85-82-8222Aujrqcmvx to same day surgery centerDO Go Bairdring Work Phone: [facility]-Surgery Center [facility] ShawStart: 09-23-2021 End: 22-23-6293Hpccggy encounter procedureDO Go Foster Work Phone: [facility]-Pre-Surgical Testing Start: 09-18-2021 End: 08-38-0753iyhfifxzgvUBZMFT RODRIGUEZ .Facility:O3Tswfn: 08-14-2021 End: 34-47-8267ugyvkwkvyuInlox Chaban Other [facility] Other Start: 01-01-7906Figjrk outpatient new 45 [facility] ChabanFPG Pulmonary DiseaseStart: 08-01-2021 End: 07-86-3044hukcbhmxycAF DANIEL A HERRINGFacility:I3Oleld: 07-31-2021 End: 23-34-6286iklbxaapnqOM DANIEL A HERRINGFacility:D4Ttzek: 09-09-2016 End: 14-77-6199XohnreyaknJ. MILAD GrimaldoAultman Alliance [facility] Hospital Procedures DateProcedureProcedure DetailPerforming ClinicianStart: 87-09-6205Cyckg spine thoracic 3 viewsEvanmelinda Hunter CREDIT ADMINISTRATION MANAGER-PREFORM MACHINE OPERATOR Work Phone: Start: 04-32-2077Yhrcicthnhe up to 1 hour physician/qhp timeInga Shelton MD Work Phone: Start: 25-76-2635Etjoixgzzv examination knee 1/2 views Inga Shelton MD Work Phone: Start: 09-80-1680Arwxnpxggyxfh prostatectomyHERBER GAGNON Start: 66-27-0522Mstfn Arthur Weaver MD Work Phone: Start: 72-13-2025Njiwd cultureDaniolga Foster DO Work Phone: start: 13-81-5575D-ray of right ankleDO Go Foster Work Phone: Start: 64-84-1981S-ray of right ankleDO Go Foster Work Phone: Start: 02-86-8251N-ray of right ankleDO Go Foster Work Phone: Start: 38-75-5338K-ray of right ankleDO Go Foster Work Phone: Start: 65-27-1811Xrhs reduction of fracture with internal fixationDO Go Foster Work Phone: Fracture of ankle (disorder)HERBER GAGNON Open reduction of fracture with internal fixation HERBER GAGNON Plan of Treatment DateCare ActivityDetailAuthorStart: 09-89-7751Cqykc panelCholesterolMetroHealth Start: 25-11-2930Jfgnmmvvu for malignant neoplasm of colonNOMS HealthcareStart: 57-75-3647Dwkde panelCholesterolMetroHealthStart: 04-20-2025 End: 19-27-2238Ztxtjxc encounter oajeparcg94/26/2026 10:00 AM EST Office Visit [facility] [address] [place] [address] Jessica Wade R[address] [place] [address] [facility] DentistryStart: 02-15-2025 End: 37-24-6689Kuehyvq encounter gbxbkrfgi18/24/2025 9:45 AM EST Office Visit [facility] [address] [place] [address] [phone] Sarah Brown PA-C [address] [place] [address] [facility] OrthopedicsStart: 02-10-2025 End: 67-45-2864Tkrlrho encounter vmxoiogck66/19/2025 10:30 AM EST Office Visit [facility] [address] [place] [address] Blas Vergara DMD [address] [place] [address] [facility] Oral SurgeryStart: 12-28-2024 End: 18-73-1503WD Tibia and Fibula - right ViewsTHE [facility] Work Phone: Comment on above:Expected: 12/28/2024, Expires: Occurrences starting 12/28/2024 until 12/28/2024Start: 12-28-2024 End: 33-16-5385Ancldck encounter vtokcjsxh87/05/2025 10:00 AM EST Office Visit [facility] [address] [place] [address] Sarah Brown PA-C [address] [place] [address] [employer] [place] OrthopedicsStart: 12-06-2024 End: 08-77-6500AJ Clavicle - right ViewsXR CLAVICLE RIGHT 2 VIEWS Imaging Routine Closed displaced fracture of right clavicle, unspecified part of clavicle, initial encounter Expected: 12/06/2024, Expires: 12/06/2025[employer] Work Phone: Comment on above:Expected: 12/06/2024, Expires: 12/06/2025Start: 12-06-2024 End: 79-96-6780Rquwehm encounter wzxakgczo54/14/2025 11:30 AM EDT Office Visit [facility] [place] [address] Dev Hein MD [address] [place] [address] [phone] [facility] Extremity CenterStart: 11-30-2024 End: 58-43-4782HO Tibia and Fibula - right ViewsXR TIBIA RIGHT 2 VIEWS Imaging Routine Displ spiral fx shaft of r tibia, init for opn fx type I/2 Expected: 11/30/2024, Expires: 11/30/2025[employer] Work Phone: Comment on above:Expected: 11/30/2024, Expires: 11/30/2025Start: 11-03-2024 End: 04-43-4419Nnczqsi encounter /11/2025 11:50 AM EDT Procedure Visit [facility] [address] [facility] [address] [place] [address] Glenn Brown DPM [address] [facility] 5 [place] [address] Lisfranc dislocation, left, initial encounter (Primary Dx)N[facility] CI PODIATRYComment on above:Lisfranc dislocation, left, initial encounter (Primary Dx)Start: 27-75-4433XPBUN-19 Vaccine ( season)COVID-19 Vaccine ( season)MetroHealthStart: 10-24-2024 Influenza vaccinationInfluenza Vaccine (#1)N[facility] HealthcareStart: 09-21-2024 End: 36-43-6595Xpsgxht encounter msbafiqzk53/30/2025 2:00 PM EDT Office Visit [facility] [address] [place] [phone] Ana Maria Hsu NP [address] [place], [place] [facility] BETHLEHEMMARIPOSAMINERS' COLFAX MEDICAL CENTERtart: 23-50-0546IpkwbyirsNorwalk Memorial Hospitaltart: 61-90-7766GdvmpsgrhNorwalk Memorial Hospitaltart: 08-19-2024 End: 35-85-1680LgpkaghofNorwalk Memorial Hospitaltart: 62-57-2106KxrlpyjqsNorwalk Memorial Hospitaltart: 59-38-3274Iglckrth to nephrologistNorwalk Memorial Hospitaltart: 50-70-9422Sxowqnpe admissionNorwalk Memorial Hospitaltart: 29-67-7363YgloeyjbsNorwalk Memorial Hospitaltart: 62-00-3044Grhqt cultureNorwalk Memorial Hospitaltart: 08-16-2024 Bacteria identified in Urine by CultureUrine CultureNorwalk Memorial Hospitaltart: 08-04-2024 End: 65-61-0167Chljuex encounter procedureNOOHIOHEALTH SHELBY [facility]OSPITAL ROUTEStart: 08-01-2024 End: 48-43-2179Bzmczyt encounter ijeuzhlgv94/09/2025 10:00 AM EDT Office Visit [facility] [address] [place] [address] Glenn Brown DPM [address] [address] Lisfranc dislocation, left, initial encounter (Primary Dx) [facility] SC PODComment on above:Lisfranc dislocation, left, initial encounter (Primary Dx)Start: 07-11-2024 End: 52-72-9490Oxxzetq encounter nriipwzus77/19/2025 9:50 AM EDT Office Visit [facility] [address] [place] [address] [phone] Glenn Brown DPM [address] [address] Lisfranc dislocation, left, initial encounter (Primary Dx)[facility] SC PODComment on above:Lisfranc dislocation, left, initial encounter (Primary Dx)Start: 05-27-2024 End: 83-07-2584Fyvkdff encounter ppmhiugon78/04/2025 9:40 AM EDT Office Visit [facility] [address] [place] [address] [phone] Glenn Brown DPM [address] [address] ArrivedNOMS SC PODComment on above:ArrivedStart: 05-18-2024 End: 74-99-2618Ynpdrhw encounter lgqmwkytb37/26/2025 4:00 PM EDT Office Visit [facility] [address] [place] [address] [phone] Glenn Brown DPM [address] [address] ArrivedNOMS SC PODComment on above:ArrivedStart: 04-15-2024 End: 71-20-7779Hyaqkjn encounter amaleuwbg24/21/2025 9:30 AM EST Office Visit [facility] [address] [place] [address] [phone] Glenn Brown DPM [address] [address] ArrivedNOMS SC PODComment on above:ArrivedStart: 02-09-2024 End: 49-83-7598Onejkuw encounter pfeiuakae20/17/2024 10:40 AM EST Office Visit [facility] [facility] [place] [phone] Ana Maria Hsu, GEAR HOBBER SET UP OPERATOR [address] [place], [place] ArrivedNOMS [facility]OUISVIL[place] STATE ROUTEComment on above: ArrivedStart: 88-05-8056AMQNM-19 Vaccine ( season)COVID-19 Vaccine ( season)MetroHealthStart: 79-09-1485Ieyridfpb vaccinationInfluenza Vaccine (#1)MetroHealthStart: 11-07-7747Oewcnvkbu vaccinationInfluenza Vaccine (#1)MetroHealthStart: 77-47-3026T-ray of right ankleXR ankle RT min 3V*[facility] CenterStart: 10-16-2021 End: 16-06-4888Ujwrfys encounter procedureDeparted ClinicalMetrohealth Main Campus [facility] Center Ctr-XRay [facility]ao OrthoStart: 72-51-6327QcdfpssoaMetrohealth Main Campus [facility] Center [facility]tr Work Phone: Start: 25-50-3940SowvaqfsyMetrohealth Main Campus [facility] Center [facility]tr Work Phone: Start: 17-27-0761XLMSU-19 Vaccine (5 - Booster for Pfizer series)COVID-19 Vaccine (5 - Booster for Pfizer series)MetroHealthStart: 16-89-3261Opopehdmrwx of occult blood in single stool specimenFITMetroHealth Start: 14-12-0461Karqrwnzu for malignant neoplasm of colonCRC Screening MetroHealthStart: 51-51-7043Pjmswaqn (RZV) Vaccine (1 of 2)Shingles (RZV) Vaccine (1 of 2)MetroHealthStart: 69-91-2792Vupwawlud for malignant neoplasm of colonMetroHealthStart: 48-77-2246Nzpcx panelCholesterolMetroHealthStart: 49-43-3310Mwduoj wellness visitAnnual Wellness Visit (G0438)MetroHealthStart: 40-72-5263Jaxujuijc A (HAV) Vaccine (optional start 19+ years)Hepatitis A (HAV) Vaccine (optional start 19+ years)MetroHealthStart: 02-76-4613Abkmiiwaf B vaccinationHepatitis B (HBV) Vaccine (1 of 3 - 19+ 3-dose series)[facility] Start: 85-17-8278Moenzsmmv C screeningHepatitis C AntibodyMetroHealthStart: 81-15-6590Kavsbpg + diphtheria + acellular pertussis vaccine (product)Tdap BoosterMetroHealthStart: 34-11-1814OLZ screeningHIV TestMetroHealthStart: 1968Medicare Annual Wellness (AWV)Medicare Annual Wellness (AWV)[facility] HealthcareStart: 82-46-1332Jslztmgfa for malignant neoplasm of colonMetroHealth Anion gap measurementBellevue HospitalBasophils [#/volume] in Blood by Automated countBellevue HospitalBasophils/100 leukocytes in Blood by Automated countBellevue Hospital Eosinophils/100 leukocytes in Blood by Automated [facility] HospitalErythrocyte distribution width [Ratio] by Automated [facility] HospitalErythrocytes [#/volume] in [facility] HospitalHematocrit [Volume Fraction] of [facility] HospitalHemoglobin [Mass/volume] in [facility] Leukocytes [#/volume] corrected for nucleated erythrocytes in Blood by Automated counBellevue HospitalLeukocytes [#/volume] in [facility] HospitalLymphocytes [#/volume] in Blood by Automated count [facility] HospitalLymphocytes/100 leukocytes in Blood by Automated countBellevue HospitalMCH [Entitic mass] by Automated countBellevue HospitalMCHC [Mass/volume] by Automated count [facility]vue HospitalMCV [Entitic volume] by Automated count [facility] HospitalMonocytes [#/volume] in Blood by Automated countBellevue HospitalMonocytes/100 leukocytes in Blood by Automated countBellevue HospitalNeutrophils [#/volume] in Blood by Automated countBellevue HospitalNeutrophils/100 leukocytes in Blood by Automated [facility] HospitalNucleated erythrocytes [Presence] in Blood by Automated [facility] HospitalPatient EducationKnow your MedProvidence Hospital Ctr Work Phone: Patient [facility] Work Phone: Platelet mean volume [Entitic volume] in Blood by Automated [facility] HospitalPlatelets [#/volume] in Blood [facility] HospitalREDUCTION, OPEN, TIBIAREDUCTION, OPEN, TIBIA 5/E - Within 24 Hours Displ spiral fx shaft of r tibia, init for opn fx typeI/2 [facility], [facility]ODYREMOVAL, FOREIGN BODY 5/E - Within 24 Hours Displ spiral fx shaft of r tibia, init for opn fx type I/2[facility] tibl shft fx imed implt w/wo screws&/cerclaREDUCTION, OPEN, TIBIA, INTRAMEDULLARY MARKOS 5/E - Within 24 Hours Displ spiral fx shaft of r tibia, init for opn fx type I/2[facility] [facility] Immunizations Immunization DateImmunizationNotesCare VvtaseesIimeaqnl81-35-1840rqvugek and diphtheria toxoids, adsorbed, preservative free, for adult use (2 Lf of tetanus toxoid and 2 Lf of diphtheria toxoid)Owen Sanders MD Work Phone: [phone]wOtxrex65-33-9216cfxawr vaccine recombinantAlysha Galea [facility]01-31-2025pneumococcal 21-valent conMUL.ORD![id number] GAGNON [facility]01-31-2025Pneumococcal conjugate PCV21, polysaccharide GSJ811 conjugate, PF (FED=668)Claudette Casarez MEDICAL CASE MANAGER Work Phone: [phone]jQwvruy38-74-0012xisoty vaccine recombinantAlysha Galea [facility]2024influenza virus vaccine, unspecified formulationAlysha Galea [facility] [place] 225140-18-2023influenza virus vaccine, unspecified formulationAna Maria Ramirezchacha STEELE Work Phone: [facility]22influenza virus vaccine, unspecified formulationAshanti Bautista [facility] [place] 965340-19-2022SARS-CoV-2 (COVID-19) mRNAMUL.ORD![id number] Galea [facility] on above:Result Comment: 2024-09-05: [id number] (12+ yrs) SARS-COV-2 (COVID-19) vaccine, mRNA, spike protein, LNP, pres. free, 30 mcg/0.3mL dose, syeda-sucrose (ULA=287)Ly Ruy [facility] Work Phone: [phone]nSikbmh22-11-8058EIWO-ZwV-2 mRNA (jafuosxjqpa-fizd-zfgielc) vaccineAlysbuddy Bautista [facility] on above:Result Comment: 2024-09-05: [id number]-94 Vaccine Pfizer - Documentation Purposes [facility] Other [place] [employer] Other comment on above:Result Comment: 2024-09-05: TPV3 18-48-7598wgiihlrlb, injectable, quadrivalent, preservative freeSiobhan Ruy RD Work Phone: [phone]mCimkgc85-93-0358xitsjodst virus vaccine, unspecified formulationSiobhan Ruy RD Work Phone: [facility]02-02-2021COVID-19 Vaccine Pfizer - Documentation Purposes [facility] Other [employer] Other complsh on above:Result Comment: 2024-09-05: TPV50 92-85-8435EFTGD- Vaccine Pfizer - [facility] Purposes Anna Marie Parada Other noSP3H Other comment on above:Result Comment: 2024-09-05: TPV50 32-43-4865lmbwprvfd virus vaccine, unspecified formulationAlysha Galea [facility] [place] 965340-07-2020influenza, injectable, quadrivalent, preservative freeSiobhan Ruy RDH Work Phone: [phone]mHvuqlj19-32-9355ffjqxjbkn virus vaccine, unspecified formulationAlysha Galea [facility]-25-2019influenza, injectable, quadrivalent, preservative freeSiobhan Ruy RDH Work Phone: [phone]aPfaeul03-87-3677qsbexbisk virus vaccine, unspecified formulationAlysha Galea [facility] [place] 965340-10-2018influenza, injectable, quadrivalent, preservative freeSiobhan Ruy RDH Work Phone: [phone]nIsyhtq74-96-3841pcoscmknp virus vaccine, unspecified formulationAlysha Galea [facility] [place] 965341-14-2017influenza, injectable, quadrivalent, contains preservative Ly Ruy RDH Work Phone: [phone]nDumsln87-44-4696pfwqhuo and diphtheria toxoids, adsorbed, preservative free, for adult use (2 Lf of tetanus toxoid and 2 Lf of diphtheria toxoid)Ashanti Galea [facility]05-19-2016tetanus and diphtheria toxoids, adsorbed, preservative free, for adult use (5 Lf of tetanus toxoid and 2 Lf of diphtheria toxoid)Ly Ruy RD Work Phone: [phone]dRtgyzq26-28-6380uwjvnlxil virus vaccine, unspecified formulationAlysha Galea [facility] [place] 965340-22-2015influenza, injectable, quadrivalent, preservative freeSiobhan Ruy RD Work Phone: [phone]nFcaaih34-48-1438tefmm okzwkeluh-C2W5-96, preservative-free, injectableSiobhan Ruy RD Work Phone: [phone]aWsahoh48-05-5467ltxwxatve virus vaccine, whole virusSiobhan Ruy RDH Work Phone: [phone]sRejkbf75-29-0570xhezkpybo, wholeAlysha Galea [facility] [place] 965340-16-2007influenza virus vaccine, whole virusSiobhan Ruy RD Work Phone: [phone]bNmndhs81-64-7654ewzaberdg, wholeAlysha Galea [facility]05-03-2006tetanus and diphtheria toxoids, adsorbed, preservative free, for adult use (2 Lf of tetanus toxoid and 2 Lf of diphtheria toxoid)Ashanti Galea [facility]05-03-2006tetanus and diphtheria toxoids, adsorbed, preservative free, for adult use (5 Lf of tetanus toxoid and 2 Lf of diphtheria toxoid)Ly Ruy RD Work Phone: [phone]tPvvljf44-24-7743xdiwrhmjw B vaccine, pediatric or pediatric/adolescent dosageAlysha Galea [facility]05-16-1985hepatitis B vaccine, pediatric or pediatric/adolescent dosage Ashanti Galea [facility]04-16-1985hepatitis B vaccine, pediatric or pediatric/adolescent dosage Ashanti Galea [facility] Sandsuttonydiphtheria, tetanus toxoids and acellular pertussis vaccine, unspecified formulationSgabinotory [place] [facility] Work Phone: [facility]Healthdiphtheria, tetanus toxoids and acellular pertussis vaccine, unspecified formulationNahedmara Casarez [facility] Work Phone: [facility]Healthdiphtheria, tetanus toxoids and acellular pertussis vaccine, unspecified formulationMh 1[facility] otjhstv-guoiqnscdp-oejmgjgta pertussis (BOOSTRIX) 5-2.5-18.5 LF-MCG/0.5 injectionMetroHealth Payers DatePayer CategoryPayerPolicy [id number] --Stand AloneDENTAL- MEDICAID [id number] 2020Medicaid [id number] 1997Medicare FFSMEDICARE [id number] 1997Medicare 1.2.840.226768.1.[id number] 2..840.1.821099.3.57[id number] 2..840.1.189115.3.57[id number] 2.840.1.477730.3.579.2.53544-22-1391Joucuxw1742659 2.840.1.724279.3.579.2.17[id number] 2.16.840.1.603046.3.57[id number] 2.16.840.1.723897.3.579.[id number] 2.16.840.1.622099.3.579.2.58112-90-3779Mvgftnx06663654 2.16.840.1.939375.3.57[id number] 2.16840.1.523987.3.579.2.41911-33-2913Xghqrzk28833297 2.840.1.290707.3.579.2.04953-23-7670Eysaqab10697309 2.16.840.1.086692.3.579.2.22679-06-5605Ewdoafr68863947 2.16.840.1.709309.3.579.2.12812-81-9464Ankgwwy77169676 2.16.840.1.389024.3.579.2.99002-96-7643Ybvpmqk96143874 2.16.840.1.247193.3.579.2.31755-95-9176Tmzziov37776518 2..840.1.103667.3.579.2.78839-54-1996Nwqrljr61595916 2.16.840.1.895202.3.579.2.39684-40-5549Lkcpjba17695407 2..840.1.180123.3.579.2.864414-78-3356Cgosxye08661122 2..840.1.676791.3.579.2.277715-55-0709Zengrpm5823064 2..840.1.418750.3.579.2.959501-54-1301Robuxsa4384709 2..840.1.765711.3.579.2.633196-53-1819Inmsies8459428 2..840.1.153307.3.579.2.790284-84-7700Oizdaag8779330 2..840.1.249399.3.579.2.015143-16-7993Rdehktn6588311 2..840.1.909564.3.579.2.079800-81-8774Hdewzxi0697104 2..840.1.000025.3.579.2.616007-40-1814Outfzjf4267554 2..840.1.874250.3.579.2.972294-93-9121Ktiqlfv8051472 2..840.1.432789.3.579.2.810695-91-6190Gvverjf11562634 2.16.840.1.008263.3.579.2.78714-06-9674Tprnkbi25456538 2..840.1.528779.3.579.2.34580-90-2196Prekenc63817839 2.16.840.1.309924.3.579.2.31428-64-7720Mbgksvt74399603 2..840.1.497315.3.579.2.17530-30-7513Wuzyurm90990097 2..840.1.461121.3.579.2.27145-75-8582Wjnpqrd427391697 2..840.1.268319.3.579.2.69848-23-6080Mkmbbxv812912394 2..840.1.115643.3.579.2.05818-31-6295Uijoqgm278102956 2..840.1.078839.3.579.2.35220-02-3944Dcjdprh673338641 2.840.1.371206.3.579.2.09673-39-3204Tinrdal496436435 2..840.1.298944.3.579.2.58401-43-2724Tytoxtr157435502 2..840.1.336487.3.579.2.04401-40-3982Utytaru448985137 2..840.1.016325.3.579.2.18074-44-2384Qogdyfa181386409 2.840.1.034839.3.579.2.33735-05-8075Ppzpwrw562328440 2.840.1.780463.3.579.2.68118-95-3025Ymjmphd400151464 2..840.1.168928.3.579.2.34296-09-2708Mpjkyuj062225265 2..840.1.580559.3.579.2.21745-76-6483Kphrkoa507384058 2..840.1.498704.3.579.2.36778-51-7958Vwcqzfm690192533 2.840.1.936135.3.579.2.51687-57-4991Pnksvia447460663 2.0.1.808353.3.579.2.24052-00-8933Gmvojgc449195525 2.0.1.125234.3.579.2.32331-99-9410Nldbnmt997129693 2.840.1.719011.3.579.2.42736-17-6703Xlfnsdy659871600 2.0.1.669868.3.579.2.732 [id number] 2.0.1.260826.19 [id number] [id number] Memorial Healthcareify Arifdufkg968-16-0073 59bdm337-j471-9c20-752x-o6c3760w6nnqZicmphj0029396 2.840.1.087233.3.579.2.623Ouqafmy5207096 2.840.1.997598.3.579.2.593 Lwzoqar6727288 2.840.1.425724.3.579.2.763Pandpga57703192 2..840.1.715342.3.579.2.973Avoubkt89711419 2..840.1.711243.3.579.2.531 Cvyceme37987077 2.16.840.1.693774.3.579.2.531 Social History DateTypeDetailFacilityStart: 08-06-2023 End: 77-41-7304Ykk [facility]igned [facility] Hospitaltart: 09-24-2021 End: 08-00-5141Bnseigs smoking status NHISNever smoked tobacco (finding) [facility]: 75-64-8032Qcq [facility] smoking status NHISTobacco smoking consumption unknownMetroHealth Work Phone: Start: 30-96-3198Ntd Assigned At BirthNot on file MetroHealthTobacco smoking statusAvita Health System Galion Hospitaltart: 03-01-2019 End: 46-46-6178OgcJhhe (finding)MetroHealthStart: 85-28-3405Jegkmsc use and exposureSmokeless tobacco non-userNOMS HealthcareStart: 08-06-2023 End: 65-87-2180Cpiqjdyov beverage intakeLifetime non-drinker (finding)[facility] HealthcareStart: 08-06-2023 End: 15-03-6575Ehhicfk of Social functionNOMS HealthcareStart: 45-34-9196TAOO Follow upSDOH Follow upF[facility] Work Phone: Tobacco smoking statusNeverExecutive Urology of [facility] SanduskyNEGATED: Highlighted rowStart: NINFHistory of tobacco usePassive smokerNOMS Healthcare Medical Equipment Procedure CodeEquipment CodeEquipment Original TextEquipment IdentifierDates ORIF, fracture, ankleCANCELLOUS COARSE 7.5CCFDAStart: 11-32-7492AVBB, fracture, ankleOrthopaedic bone screw, non-bioabsorbable, non-sterile()[id number] FDAStart: 40-40-6152KDCD, fracture, ankleOrthopaedic bone screw, non- bioabsorbable, non-sterile()[id number] FDAStart: 08-23-7173UYCV, fracture, ankleOrthopaedic fixation plate, non-bioabsorbable, sterile()[id number] FDAStart: 72-66-0471KEAG, fracture, ankleOrthopaedic bone screw, non- bioabsorbable, non-sterile()[id number] FDAStart: 50-10-2458WSRC, fracture, ankleOrthopaedic bone screw, non-bioabsorbable, non-sterile()[id number] FDAStart: 59-23-1369HNXA, fracture, ankleOrthopaedic bone screw, non- bioabsorbable, non-sterile()[id number] FDAStart: 60-51-0555AELR, fracture, ankleOrthopaedic bone screw, non-bioabsorbable, non-sterile()[id number] FDAStart: 96-30-7167INSX, fracture, ankleCANCELLOUS COARSE 7.5CCFDAStart: 28-33-8888CVLF, fracture, ankleCANCELLOUS COARSE 7.5CCFDAStart: 46-09-4896GDUZ, fracture, ankleCANCELLOUS COARSE 7.5CCFDAStart: 83-10-3711XYBX, fracture, ankle CANCELLOUS COARSE 7.5CCFDAStart: 82-75-8768MNKT, fracture, ankleCANCELLOUS COARSE 7.5CCFDAStart: 93-89-3691ANTV, fracture, ankleCANCELLOUS COARSE 7.5CCFDA Start: 98-40-9507TFFH, fracture, ankleCANCELLOUS COARSE 7.5CCFDAStart: 14-24-9088Cpq End 15mm Strl Ea1 04.045.865s - [id number]_qmdQqpgm: 43-96-0508Jmkb 10mm 330mm Tib Tn Adv Im Ea1 04.043.230s - Agf7098830165786_cje Start: 98-90-9565Ubs Prof Lckng Scr 50 34 Xl25 S 04045334ts414423_impStart: 99-59-6739Cal Prof Lckng Scr 50 34 Xl25 S 04045334ts414424_impStart: 11-14-2024 Low Prof Lckng Scr 50 50 Xl25 S 04045350ts414428_impStart: 76-03-4964Zai Prof Lckng Scr 50 44 Xl25 S 04045344ts414429_impStart: 84-12-3422Oiofpwu Screw For Im Nail Xl25 Sterile 5mm X 36mm414430_impStart: 11-14-2024 Goals DatePatient GoalDesired Activity/State Clinical Notes 08-14-2021 to 12-29-2024 Note Date & MkrfNiiwUeaqasmz91-48-0422 NoteHNO ID: [id number] Author: YASH DOWNS APRN.JEREMY Service: ? Author Type: Nurse Specialist Type: Progress Notes Filed: 12/30/2024 13:58 Note Text: [facility] NOTE NAME: ALETHEA LEI [facility] NO.: [id number] DATE OF SERVICE: 12/29/2024 ATTENDING PHYSICIAN: JEREMY Fleming [facility] Chart note REASON FOR VISIT: The patient is a resident of [facility]. This is a skilled visit for fracture of the right tibia and fibula, subsequent encounter. Upon entering the room, found the patient sleeping on left-sided lying position. The patient does not appear to be in distress or discomfort. When asking the patient how he feels, the patient states he is okay, but the patient is a poor historian and does not participate in assessment process. MEDICATIONS: Have been reviewed. EXAMINATION: Temp 98.2, blood pressure 132/86, pulse 74, respirations 18, pulse ox 96% on room air, weight 184.4 pounds. Respiratory: [...] pressure control, continue antihypertensives. DICTATED BY: JEREMY Fleming KE/AQT JOB# [id number] [facility]11-05-2025 Instructions* Patient Instructions* Sarah Brown PA-C - 12/28/2024 10:44 AM EST Healing on xrays of the right tibia Ok to discontinue boot and WBAT in tennis shoe Continue PT Follow up in 6 weeks with repeat images documented in this yvysoncioJolldVsaron25-33-7455 History of Present illness Narrative* Sarah Brown PA-C - 12/28/2024 9:[address] [facility] Orthopaedic Trauma/Adult Reconstruction 12/28/24 Orthopaedic Surgery Clinic Note HPI: Alethea Lei ([id number]) is a 54 year old male who [...] fx and distal fibula fx Assessment/Plan: 1. (U71.716D) Displ spiral fx shaft of r tibia, [...] Follow-up: 6 weeks, Imaging: right tibia Sarah Brown PA-C [phone] [1] Current Outpatient Medications on File Prior [...] DENTAL RESTORATIONS; Surgeon: Mina Solorzano DDS; Location: [facility] Surgery [place]; Service: Dental EXCISION, LESION, ORAL Right 01/25/2021 Procedure: EXCISION, LESION, ORAL; Surgeon: Mina Solorzano DDS; Location: [facility] Surgery [place]; Service: Dental REDUCTION, OPEN, TIBIA Right 11/14/2024 Procedure: REDUCTION, OPEN, TIBIA; Surgeon: Jose Truong MD; Location: PERIOPERATIVE SERVICES; Service: Orthopaedics REDUCTION, OPEN, TIBIA, INTRAMEDULLARY MARKOS Right 11/14/2024 Procedure: REDUCTION, OPEN, TIBIA, INTRAMEDULLARY MARKOS; Surgeon: Jose Truong MD; Location: PERIOPERATIVE SERVICES; Service: Orthopaedics documented in this ajgtlhlwgXthrmZhhkvx88-37-2849 NoteHNO ID: [id number] Author: YASH DOWNS APRN.PSYCHOSOCIAL REHABILITATION COUNSELOR Service: ? Author Type: Nurse Specialist Type: Progress Notes Filed: 12/30/2024 13:54 Note Text: [facility] NOTE NAME: ALETHEA LEI [facility] NO.: [id number] DATE OF SERVICE: 12/28/2024 ATTENDING PHYSICIAN: JEREMY Fleming [facility] Chart note REASON FOR VISIT: The patient is a resident of [facility]. This is a followup visit for urinary retention. The patient had bladder scan performed. The bladder showed large amount of urine and debris noted in the bladder. Orders for Martini catheter have been given. The patient did have a urinalysis pending at this time. Upon entering the room, found patient lying in left-sided lying position. The patient is being attended to by staff members to prepare himself to go to orthopedics appointment today. The patient is a poor historian and really does not offer much information. MEDICATIONS: Have been reviewed. EXAMINATION: Temp 98.2, blood pressure 135/76, pulse 72, respirations 18, pulse ox 96% on room air, weight 184.4 pounds. Respiratory: Respirations are easy and unlabored with the patient at rest. Lungs: Sounds are clear. Heart: Rate and rhythm regular. Abdomen: Soft. No noted tenderness with palpation. Bowel sounds present x4. No bladder distention noted with palpation. IMPRESSION AND PLAN: 1. Urinary retention. Consult for urology already ordered. The patient will have Martini catheter. Patient will have Vistaril to help patient with agitation prior to the catheter insertion and awaiting urinalysis results. 2. Vomiting alone. The patient has had no further vomiting episodes since yesterday. DICTATED BY: JEREMY Fleming KE/AQT JOB# [id number] [facility]11-04-2025 NoteHNO ID: [id number] Author: YASH DOWNS APRN.JEREMY Service: ? Author Type: Nurse Specialist Type: Progress Notes Filed: 12/30/2024 13:50 Note Text: [facility] NOTE NAME: ALETHEA LEI [facility] NO.: [id number] DATE OF SERVICE: 12/27/2024 ATTENDING PHYSICIAN: JEREMY Fleming [facility] Chart note REASON FOR VISIT: The patient is a resident of [facility]. This is a skilled visit for urinary hesitancy, fracture of the lower end of the right tibia and fibula, subsequent encounter and other medical concerns. Prior to patient assessment, staff reports the patient had developed vomiting today. On-call was notified all weekend after staff was reporting the patient was having low urinary output. Orders were placed last week for toileting every 4 hours. KUB and bladder scan were ordered for yesterday. Staff reports the patient did have much urine noted on bladder scan, but the patient has been toileted every 4 hours and when the patient goes to the bathroom he does void quantities sufficient and after the bladder scan, the patient did void large amount. Staff did report that the KUB resulted and showed moderate amount of constipation and Dulcolax suppository was given. Upon entering the room, found the patient sitting in wheelchair. The patient does not appear to be in distress or discomfort. The patient is noted forcefully trying to cough or gag, it is unclear. The patient is a poor historian and does not answer questions at this time. MEDICATIONS: Have been reviewed. EXAMINATION: Temp 97.6, blood pressure 132/88, pulse 83, respirations 18, pulse ox 96% on room air, weight 184.4 pounds. Respiratory: Respirations are easy and unlabored with patient at rest. Lung sounds are clear. Heart: Rate and rhythm regular. Abdomen: Soft, no tenderness noted with palpation. Bowel sounds hypoactive x4. Extremities: Nonedematous. IMPRESSION AND PLAN: 1. Vomiting alone. Zofran as needed. The patient does have constipation. The patient will be given Dulcolax rectal suppository x1. 2. Urinary hesitancy. The patient continues toileting. Urine is pending. Staff reports the patient does urinate quite sufficient with toileting patient's toilet every 4 hours. 3. Hypertension, the patient has fair blood pressure control. Continue antihypertensives. 4. Fracture of the right tibia and fibula, subsequent encounter with routine healing. No evidence of pain at this time, on acetaminophen, oxycodone for more severe pain. DICTATED BY: JEREMY Fleming/AMERIAC JOB# [id number] [facility]10-30-2025 NoteHNO ID: [id number] Author: YASH DOWNS APRN.JEREMY Service: ? Author Type: Nurse Specialist Type: Progress Notes Filed: 12/27/2024 06:57 Note Text: [facility] NOTE NAME: ALETHEA LEI [facility] NO.: [id number] DATE OF SERVICE: 12/22/2024 ATTENDING PHYSICIAN: JEREMY Fleming [facility] Chart note REASON FOR VISIT: The patient is a resident of [facility]. This is an acute visit for urinary retention. Staff reported the patient has been having urinary retention and catheter insertion was ordered. Staff reported attempted to place catheter and found resistance. Staff reported after talking to the patient and encouraging the patient to go to the bathroom, patient urinated large amount of urine. 1 staff nurse was familiar with the patient from the resident's home stated the patient has had this problem in the past and was required of the staff to get the patient up every 3 hours to avoid the patient voided just fine. Entered the room, found patient calm, alert, lying in bed. Patient does not appear to be in distress or discomfort. Patient states he does not feel a low abdominal pain. The patient states does not have abdominal discomfort. No urinary symptoms. The patient is difficult to obtain information from. The patient does have confusion. MEDICATIONS: Have been reviewed. EXAMINATION: Temp 98.6, blood pressure 140/77, pulse 88, respirations 18, pulse ox 98% on room air, weight 187.2 pounds. Respirations are easy and unlabored with the patient at rest. Lung: Sounds are clear. Heart: Rate and rhythm regular. Abdomen: Soft. No tenderness noted with palpation. Bowel sounds present x4. No bladder distention noted with palpation. IMPRESSION AND PLAN: Urinary hesitancy. Orders placed to offer patient toileting, assist the patient to the toilet q.4 hours as needed. Continue to monitor urinary patterns. DICTATED BY: JEREMY Fleming/AMERICA JOB# [id number] [facility]10-28-2025 NoteHNO ID: [id number] Author: YASH DOWNS APRN.JEREMY Service: ? Author Type: Nurse Specialist Type: Progress Notes Filed: 12/27/2024 06:55 Note Text: [facility] NOTE NAME: ALETHEA LEI [facility] NO.: [id number] DATE OF SERVICE: 12/20/2024 ATTENDING PHYSICIAN: JEREMY Fleming [facility] Chart note REASON FOR VISIT: The patient is a resident of [facility]. This is a skilled visit for fracture of the upper and lower end of the right fibula, subsequent encounter with routine healing and other medical concerns. Upon entering the room, found the patient calm, alert, lying in bed. The patient does not appear to be in distress or discomfort. The patient is noted to have right lower extremity bent at the knee and draped over with left leg. The patient states does have some pain to the right lower extremity. When asking the patient to move his leg, the patient does become anxious and states he cannot because it hurts. The patient states does take his medication for pain. States he has been eating and drinking well. States he has no cough, does not feel nauseated. Staff reports no complaints for the patient. MEDICATIONS: Have been reviewed. EXAMINATION: Temp 97.5, blood pressure 122/68, pulse 70, respirations 18, pulse ox 96% on room air, weight 187.2 pounds. Respiratory: Respirations are easy and unlabored with patient at rest. Lung sounds are clear. Heart: Rate and rhythm regular. Abdomen: Soft and nontender with palpation. Bowel sounds present x4. Extremities: Nonedematous. Musculoskeletal: Right lower extremity, no edema is noted. Right lower extremity surgical incision sites have healed well. Right pedal pulses palpable. The patient does keep right knee bent in 90-degree position and is resistant to move it due to complaints of pain. IMPRESSION AND PLAN: 1. Fracture of the upper and lower right fibula, subsequent encounter. The patient does follow with Orthopedic Services. Continue Therapy Services. The patient is nonweightbearing at this time. He does have acetaminophen for lesser pain, oxycodone for more severe pain. 2. Seizure disorder, no seizures have been reported recently, on Keppra, oxcarbazepine. 3. Chronic kidney disease, continue to encourage fluids. 4. Hypothyroidism, on levothyroxine. 5. Hyperlipidemia, on statins. DICTATED BY: JEREMY Fleming/AMERICA JOB# [id number] [facility] Hospital[facility] NoteHNO ID: [id number] Author: QUYNH PINEDA MD Service: ? Author Type: Physician Type: Progress Notes Filed: 12/16/2024 16:15 Note Text: [facility] NOTE NAME: ALETHEA LEI [facility] NO.: [id number] DATE OF SERVICE: 12/15/2024 ATTENDING PHYSICIAN: Quynh Pineda MD [facility] Followup of skilled care. He is currently resting in bed. He does not appear to be in any distress. Nursing reports no new problems at this time. He is essentially nonverbal. MEDICATIONS: Reviewed. EXAMINATION: HEENT: Intact. Lungs: Clear. Heart: Regular. Abdomen: Soft, nontender. Extremities: No edema. IMPRESSIONS: 1. Status post recent surgical repair distal spiral shaft fracture right tibia - continue current treatment. He continues to improve. He will follow up with Orthopedics. Also underlying ankle repair. 2. Seizure disorder - monitor for any seizure activity. Maintain current anticonvulsant therapy. 3. Chronic kidney disease - continue to monitor fluid balance and renal function closely. 4. Hypothyroidism - continue supplement. 5. Hyperlipidemia - continue statin therapy. Maintain current supportive care. DICTATED BY: MD CORNELL Almonte/AMERICA JOB# [id number] [facility]10-22-2025 NoteHNO ID: [id number] Author: YASH DONWS APRN.JEREMY Service: ? Author Type: Nurse Specialist Type: Progress Notes Filed: 12/20/2024 12:34 Note Text: [facility] NOTE NAME: ALETHEA LEI [facility] NO.: [id number] DATE OF SERVICE: 12/14/2024 ATTENDING PHYSICIAN: JEREMY Fleming [facility] Chart note REASON FOR VISIT: The patient is a resident of [facility]. This is a skilled visit for fracture of the right tibia and fibula, subsequent encounter with routine healing and surgical repair and other medical concerns. The patient had chest and abdominal x-ray performed and labs to be performed after the patient was having episodes of vomiting and concerns for aspiration were present. Labs were performed, but are pending at this time. Chest x-ray shows no infiltrate and abdominal x-ray shows moderate feces in the colon, nonspecific gas pattern without obstruction. The patient was ordered Dulcolax suppository x1 at that time. Upon entering the room, found the patient calm, alert, lying in bed with staff in the room. The patient does not appear to be in distress or discomfort. The patient appears to be in better spirits today than in last visit. The patient does talk with forced and loud speech. States he has had no further episodes of vomiting. States he does not feel nauseated. The patient states he has been able to eat and drink again. The patient states has no pain to the right lower extremity. No fever, chills, or nausea. The patient states his bowels are moving, states has been drinking fluids. Denies urinary symptoms. MEDICATIONS: Have been reviewed. EXAMINATION: Temp 97.6, blood pressure 122/85, pulse 63, respirations 18, pulse ox 96% on room air, weight 187.2 pounds. Respiratory: Respirations are easy and unlabored with patient at rest. Lung sounds are clear. Heart: Rate and rhythm regular. Abdomen: Soft and nontender with palpation. Bowel sounds present x4. Extremities: Left lower extremity nonedematous. Right lower extremity fracture boot is intact. The patient does move all toes. Full sensorium is stated. Steri-Strips intact. No signs of infection to the surgical incision wounds. IMPRESSION AND PLAN: 1. Nausea with vomiting and cough. Symptoms have resolved. Labs continue pending. 2. Fracture of the right tibia and fibula, subsequent encounter with surgical repair. The patient will continue following with Orthopedic Services. No complaints of pain at this time, on acetaminophen for lesser pain, oxycodone more severe pain. Continue with fracture boot until cleared by Orthopedic Services. The patient is working with Therapy Services. 3. Hypertension, the patient has fair blood pressure control, continue antihypertensives. 4. Chronic kidney disease, stage 3. Labs pending. 5. Autism with attention deficit hyperactivity disorder. Continue supportive care. LAB REVIEW: Date of Service: December 12, 2024. Procedure #1: Chest x-ray 2 view. Impression: No infiltrate, effusion or acute findings identified. Procedure #2: Abdominal x-ray single-view. Finding: There is nonspecific gas pattern without obstruction, mild-to- moderate, increased feces in the colon. No renal stones seen. There are no osseous abnormalities identified. DICTATED BY: JEREMY Fleming/JOANNAT JOB# [id number] [facility]10-20-2025 NoteHNO ID: [id number] Author: YASH DOWNS APRN.JEREMY Service: ? Author Type: Nurse Specialist Type: Progress Notes Filed: 12/14/2024 07:02 Note Text: [facility] NOTE NAME: [facility]A [facility] NO[facility] [id number] DATE OF SERVICE: 12/12/2024 ATTENDING PHYSICIAN: JEREMY Fleming [facility] Chart note REASON FOR VISIT: The patient is a resident of [facility] at [facility]. This is an acute visit for cough and vomiting. Staff reported the patient developed vomiting starting this morning with 1 episode of vomiting. States the patient is now coughing. Upon entering the room, found patient in low-Chawla's position. The patient is noted to have emesis surrounding him and emesis is hart milky in appearance. The patient states has no pain. The patient states has been coughing. The patient states does not feel nauseated and upon entering the room, sat patient in upright position as the patient did have another emesis on my arrival. MEDICATIONS: Have been reviewed. EXAMINATION: Temp 97.1, blood pressure 120/64, pulse 79, respirations 16, pulse ox 95% on room air, weight 187.2 pounds. Respirations are easy and unlabored with the patient at rest. Lungs: Sounds left side clear, left side coarse throughout. Heart: Rate and rhythm regular. Abdomen: Soft. No noted tenderness with palpation. Bowel sounds present x4. Extremities: Nonedematous. Right lower extremity Steri-Strips are intact and right lower extremity is bent in 90 degree position under the left leg. IMPRESSION AND PLAN: 1. Cough. The patient will have stat CBC, BMP, chest x-ray, chest x-ray is to rule out aspiration. 2. Nausea, vomiting. Again, patient will have stat lab work to be performed. Zofran for nausea and abdominal x-ray to be performed. The patient is documented to have a large bowel movement yesterday and appears to have been having daily bowel movements for the past 3 days. DICTATED BY: JEREMY Fleming/AQT JOB# [id number] [facility]10-14-2025 History of Present illness Narrative* Dev Hein MD - 12/06/2024 4:03 PM EDT Images from the original note were not included. CC: R distal clavicle fracture DOI: 11/13/24 Occupation: none; resides at long-term care facility HPI: Alethea Lei is a RHD 54 year old male with MRDD [facility]. Site: R distal clavicle fracture Open: No Mechanism: fall from standing height at facility Work injury: No Associated injuries at fracture site: No Prior evaluation/treatment: admitted to hospital; placed in sling and made NWB. He has not been wearing the sling as he has not seemed to need it. Isolated injury: No - R open tibia s/p IMN with Dr. Truong Chart review: 11/14/24 - R tibia/fibula IMN with Dr. Truong Exam: RUE Skin intact. Obvious deformity without significant skin tenting. Skin with good cap refill and is quite mobile Minimal swelling Minimal ttp over fracture site Shoulder ROM FF 160 / ER 30 / IR L4 SILT r/mu/ax Firing AIN/PIN/u/ax 2+ radial Imaging: On my independent review today (12/06/2024), 12/06/2024 XR R clavicle Mildly displaced distal clavicle fracture with approximately 50% superior displacement. Fracture isextraarticular and short oblique in nature. Stable alignment to prior radiographic imaging. Assessment & Plan Closed displaced fracture of right clavicle, unspecified part of clavicle, initial encounter -- extensive discussion regarding fracture with patient and accompanying contracting support specialist. We discussed non operative treatment verses operative management. Given the overall alignment of his distal clavicle fracture and his comfort and functional level, I would recommend nonoperative treatment of the distal clavicle fracture, which we will begin today. They understand and are in agreement -- sling provided today for comfort only; okay to come out of sling to work on ROM -- NWB RUE for additional 2 weeks. On 12/20, may begin strengthening and advance to WBAT -- external PT order provided to indicate the above -- RTC 3 wk for alignment check and function check XR at subsequent visit: Yes, XR R clavicle (ordered) - may be obtained 1-3d prior to visit Fracture care global period ends 03/08/24. I supervised the resident/fellow in their evaluation and discussed the treatment plan. I personallysaw the patient and elicited the history and physical exam. I personally reviewed the imaging and provided independent interpretation. I directly edited the note above to reflect my history-taking, exam, discussion, and medical decision-making. -- Dev Hein MD Hand & Upper Extremity Surgery Dept of Orthopaedic Surgery Office [phone] Pager [phone] Clinic intake form: Not completed Prior history reviewed as below: PMH: Medical History[1] PSH: Surgical History[2] Meds: Current Medications[3] All: Allergies[4] SH: Social History[5] [1] Past Medical History: Diagnosis Date Anemia OSH H + P 01/08/2021 CKD (chronic kidney disease), stage I OSH H + P 01/08/2021 Dental caries Moderate intellectual disability OSH H + P 01/08/2021 Tuberous sclerosis (HCC) OSH H + P 01/08/2021 [2] Past Surgical History: Procedure Laterality Date DENTAL RESTORATIONS Bilateral 01/25/2021 Procedure: DENTAL RESTORATIONS; Surgeon: Mina Solorzano DDS; Location: [facility] Surgery [place]; Service: Dental EXCISION, LESION, ORAL Right 01/25/2021 Procedure: EXCISION, LESION, ORAL; Surgeon: Mina Solorzano DDS; Location: [facility] [place]; Service: Dental REDUCTION, OPEN, TIBIA Right 11/14/2024 Procedure: REDUCTION, OPEN, TIBIA; Surgeon: Jose Truong MD; Location: [facility]; Service: Orthopaedics REDUCTION, OPEN, TIBIA, INTRAMEDULLARY MARKOS Right 11/14/2024 Procedure: REDUCTION, OPEN, TIBIA, INTRAMEDULLARY MARKOS; Surgeon: Jose Truong MD; Location: PERIOPER[facility]IVE SERVICES; Service: Orthopaedics [3] Current Outpatient Medications: oxyCODONE (OXYIR) 5 MG capsule, Take 5 mg by mouth every 6 hours as needed for Pain., Disp: , Rfl: hydrOXYzine pamoate (Vistaril) 25 MG capsule, Take 25 mg by mouth 3 times daily as needed for Itching., Disp: , Rfl: Sennosides (Senna) 8.6 MG CAPS, Take by mouth., Disp: , Rfl: tamsulosin (FLOMAX) 0.4 MG capsule, Take 0.4 mg by mouth daily., Disp: , Rfl: aspirin EC 81 MG tablet, Take 1 Tablet by mouth 2 times a day., Disp: 84 Tablet, Rfl: 0 benztropine (COGENTIN) 1 MG tablet, Take 1 Tablet by mouth 3 times daily., Disp: 90 Tablet, Rfl: 0 acetaminophen (TYLENOL) 500 MG tablet, Take 2 Tablets by mouth every 8 hours as needed., Disp: 90 Tablet, Rfl: 0 cloNIDine (CATAPRES) 0.1 MG tablet, Take 1 Tablet by mouth 3 times a day., Disp: 90 Tablet, Rfl: 0 OXcarbazepine (TRILEPTAL) 300 MG/5ML oral suspension, Take 10 mL by mouth daily., Disp: 300 mL, Rfl: 0 OXcarbazepine (TRILEPTAL) 300 MG/5ML oral suspension, Take 20 mL by mouth at bedtime., Disp: 600 mL, Rfl: 0 PARoxetine (PAXIL) 30 MG tablet, Take 2 Tablets by mouth at bedtime., Disp: 60 Tablet, Rfl: 0 haloperidol (HALDOL) 10 MG tablet, Take 10 mg by mouth every evening., Disp: , Rfl: nebivolol (BYSTOLIC) 5 MG TABS tablet, Take 5 mg by mouth daily., Disp: , Rfl: levothyroxine (SYNTHROID) 137 MCG tablet, Take 137 mcg by mouth daily., Disp: , Rfl: levETIRAcetam (KEPPRA) 500 MG tablet, Take 500 mg by mouth 2 times daily., Disp: , Rfl: haloperidol (HALDOL) 5 MG tablet, Take 15 mg by mouth 2 times a day., Disp: , Rfl: amLODIPine (NORVASC) 10 MG tablet, Take 10 mg by mouth daily., Disp: , Rfl: Calcium Carb-Cholecalciferol (Oyster Shell Calcium w/D) 500-5 MG-MCG TABS, Take 1 Tablet by mouth 2times daily., Disp: , Rfl: atorvastatin (LIPITOR) 40 mg tablet, Take 40 mg by mouth daily., Disp: , Rfl: [4] Allergies Allergen Reactions Aripiprazole Other agressiveness Pertussis Vaccine Redness Pertussis Vaccines [5] Social History Socioeconomic History Marital status: Single * Rosa Dukes MA - 12/06/2024 11:52 AM EDT Vitals not obtained per provider's instructions. documented in this [id number] ID: [id number] Author: SUMEET CALI MD Service: ? Author Type: Physician Type: Progress Notes Filed: 12/05/2024 14:52 Note Text: FOLLOW UP - PSYCHIATRIC PROGRESS [...] visit. Either the patient or their legal player services representative has been informed of the risks [...] last seen in June [address] Ambrocio Romero at that time was continued on current regimen of paroxetine, haloperidol, clonidine, Cogentin. Today, is accompanied by care provider. Over the summer, patient fell while home and broke several bones. He is currently in a rehabilitation facility. Care provider reports that he has struggled with agitation, throwing things, and self-injurious behaviors of hitting. He is now able to walk again. Mother is present over the telephone during interaction. Patient states he is good . Says hide a provider. Discussed options. Mother does not want to reduce any medications that he is currently on. Discussed adding buspirone. Mother and care provider amenable. Risks and benefits of the medication, including any black box warnings, were discussed with the patient. Interval Progress: Worse PATIENT DATA: Generalized Anxiety Disorder Scale (PETER-7) 11/10/2023 05/29/2024 12/05/2024 PETER - 7 SCORES Score 3 0 13 (0-4) minimal anxiety, (5-9) mild anxiety, (10-14) moderate anxiety, (15-21) severe anxiety Patient Health Questionnaire (PHQ-9) 11/10/2023 05/29/2024 12/05/2024 PHQ-9 Score 6 13 9 (0-4) minimal depression, (5-9) mild depression, (10-14) moderate depression, (15-19) moderately severe depression, (20-27) severe depression PROMIS Global Health 11/10/2023 05/29/2024 12/05/2024 PROMIS Global Health - (T-Scores - the mean of general population = 50. Five points is a clinically meaningful difference.) Physical T-Score 44.9 37.4 44.9 Mental T-Score 38.8 38.8 41.1 Generalized Anxiety Disorder Scale (PETER-7) 11/10/2023 05/29/2024 12/05/2024 PETER - 7 SCORES Score 3 0 13 (0-4) minimal anxiety, (5-9) mild anxiety, (10-14) moderate anxiety, (15-21) severe anxiety [place] Cognitive Assessment (MoCA) No data to display Score of 26 or above considered normal 18-25 =mild cognitive impairment, 10-17 = moderate cognitive impairment, <10 = severe cognitive impairment Patient Health Questionnaire (PHQ-9) 11/10/2023 05/29/2024 12/05/2024 PHQ-9 Score 6 13 9 (0-4) minimal depression, (5-9) mild depression, (10-14) moderate depression, (15-19) moderately severe depression, (20-27) severe depression PROMIS Global Health 11/10/2023 05/29/2024 12/05/2024 PROMIS Global Health - (T-Scores - the mean of general population = 50. Five points is a clinically meaningful difference.) Physical T-Score 44.9 37.4 44.9 Mental T-Score 38.8 38.8 41.1 PAST MEDICAL HISTORY Diagnosis Date Fracture Hypertension [...] evening, and 3 tablets at bedtime 0 bpwlbkf-costlyqlm-ektfaxr D3 (OYSTER SHELL CALCIUM-VITAMIN D) 500 mg(1,250mg) [...] 10 MEQ TAB one cap three times d (more content not included)...[facility]10-09-2025 NoteHNO ID: [id number] Author: YASH DOWNS APRN.JEREMY Service: ? Author Type: Nurse Specialist Type: Progress Notes Filed: 12/06/2024 10:34 Note Text: [facility] NOTE NAME: ALETHEA LEI [facility] NO.: [id number] DATE OF SERVICE: 12/01/2024 ATTENDING PHYSICIAN: JEREMY Fleming [facility] Chart note REASON FOR VISIT: The patient is a resident of [facility] at [facility]. This is a skilled visit for fracture of the right tibia and fibula and right clavicle with surgical repair and other medical concerns. Upon entering the room, found the patient lying on the left-sided lying position. The patient does not appear to be in distress or discomfort. The patient is easily aroused. The patient does become agitated with assessment process and states he wants to keep the light kept off, demands the light to stay off. When trying to perform assessment, covers over his head and does not respond. Staff reports the patient does have occasional episodes of agitation, but they have overall no complaints. The patient was seen by Orthopedic Services yesterday and is now weightbearing as tolerated in right lower extremity. MEDICATIONS: Have been reviewed. EXAMINATION: Temp 97.6, blood pressure 127/83, pulse 65, respirations 16, pulse ox 99% on room air, weight 187 pounds. Respiratory: Respirations are easy and unlabored with patient at rest. Lung sounds are clear. Heart: Rate and rhythm regular. Abdomen: Soft and nontender with palpation. Bowel sounds present x4. Genitourinary: Martini catheter is intact. It is draining a clear yellow urine. Extremities: Bilateral lower extremities without edema. Right lower extremity boot is intact. The patient refuses to have boot disturbed. Cap refill is brisk. IMPRESSION AND PLAN: 1. Fracture of the right tibia and fibula with surgical repair. The patient will continue following with Orthopedic Services, on acetaminophen for lesser pain, oxycodone for more severe pain. Continue to monitor for neurovascular compromise. 2. Fracture of the right clavicle, subsequent encounter, the patient is noted moving the right upper extremity without difficulty. The patient does have lidocaine patch, acetaminophen for lesser pain and oxycodone for more severe pain. 3. Hypertension, the patient has fair blood pressure control. 4. Hyperlipidemia, on statins. 5. History of autism. The patient does have Vistaril every 12 hours as needed for anxiety, haloperidol, benztropine, and paroxetine. 6. Obsessive-compulsive disorder. The patient follows with Psychiatric Services as needed, continue medications per Psych directives. DICTATED BY: JEREMY Fleming/AMERICA JOB# [id number] [facility]10-08-2025 History of Present illness Narrative* Ambrocio Montero - 11/30/2024 2:33 PM EDT Patient was identified by name and date of . Patient was dispensed and fitted with a. ~ Air cast walking boot - Large Patient was instructed on the application, adjustment, removal and care for Air cast walking boot. * Robert Bello MA - 11/30/2024 10:13 AM EDT Patient was identified by name and date of . Robert Bello MA * Sarah Brown PA-C - 11/30/2024 10:[address] [facility] Orthopaedic Trauma/Adult Reconstruction 11/30/24 Orthopaedic Surgery Clinic Note HPI: Alethea Lei ([id number]) is a 54 year old male who presents for a 2 visit s/p NEGRA R ankle, IMN R distal tibial shaft fx. Pain is controlled. Pt presents from SNF today with caregiver from the facility he normally resides at for his intellectual disability. Pt intermittently conversational, difficult to elicit history and follow exam prompts due to baseline cognitive function. ROS: All other pertinent ROS negative. Medications: Medications Ordered Prior to Encounter[1] Allergies: Allergies[2] Past Medical History: Medical History[3] Past Surgical History: Surgical History[4] Physical Exam: Musculoskeletal: RLE Deformity: none Swelling: moderate proximal tibia, at level of where the top of splint terminates. Ecchymosis and edema at proximal/lateral aspect of tibia Wounds: closed, sutures intact Perfusion: warm, well perfused, distal pulses palpable Tenderness: vincenzo-incisional Range of Motion: passively ranging ankle 0-20, can extend knee to 0 degrees and sitting with 90 degrees of flexion in wheelchair DF/PF/EHL: 5/5 pf - not following exam to test df/ehl function - pt stating that he cannot perform Sensation: Intact to light touch Imaging: None, obtain at next follow up visit Assessment/Plan: (W66.015M) Displ spiral fx shaft of r tibia, init for opn fx type I/2 (primary encounter diagnosis) The natural history and treatment options (surgical and non-surgical) were discussed including risks, benefits, alternatives and prognosis and all questions were answered. The following plan was agreed upon: Sutures removed. Ok to discontinue use of [place] Splint. Ok toWBAT in air cast boot. At this point boot will help prevent equinus contracture if he has peroneal nerve injury, will closely examine at follow up. Follow-up: 4 weeks, Imaging: right tibia Sarah Brown PA-C [phone] [1] Current Outpatient Medications on File Prior to Visit Medication Sig Dispense Refill aspirin EC 81 MG tablet Take 1 Tablet by mouth 2 times a day. 84 Tablet 0 benztropine (COGENTIN) 1 MG tablet Take 1 Tablet by mouth 3 times daily. 90 Tablet 0 acetaminophen (TYLENOL) 500 MG tablet Take 2 Tablets by mouth every 8 hours as needed. 90 Tablet 0 lidocaine (LIDODERM) 4 % PTCH patch Place 1 Patch on the skin every 24 hours for 14 days. 14 Patch 0 cloNIDine (CATAPRES) 0.1 MG tablet Take [...] DENTAL RESTORATIONS; Surgeon: Mina Solorzano DDS; Location: [facility] Surgery [place]; Service: Dental EXCISION, LESION, ORAL Right 01/25/2021 Procedure: EXCISION, LESION, ORAL; Surgeon: Mina Solorzano DDS; Location: [facility] Surgery [place]; Service: Dental REDUCTION, OPEN, TIBIA Right 11/14/2024 Procedure: REDUCTION, OPEN, TIBIA; Surgeon: Jose Truong MD; Location: [facility]IVE SERVICES; Service: Orthopaedics REDUCTION, OPEN, TIBIA, INTRAMEDULLARY MARKOS Right 11/14/2024 Procedure: REDUCTION, OPEN, TIBIA, INTRAMEDULLARY MARKOS; Surgeon: Jose Truong MD; Location: PERIOPERATIVE SERVICES; Service: Orthopaedics documented in this [id number] ID: [id number] Author: YASH DOWNS APRN.JEREMY Service: ? Author Type: Nurse Specialist Type: Progress Notes Filed: 12/06/2024 10:28 Note Text: [facility] NOTE NAME: ALETHEA LEI [facility] NO.: [id number] DATE OF SERVICE: 11/29/2024 ATTENDING PHYSICIAN: Yash Downs [facility] Chart note REASON FOR VISIT: The patient is a resident of [facility]. This is a skilled visit for fracture of the right tibia and right fibula with fracture right clavicle and orthopedic surgery and other medical concerns. The patient was given Vistaril q.12 hours yesterday after staff reported the patient was yelling out and appeared anxious. Staff reported they think the patient was having pain. Upon entering the room, found patient sleeping on left side lying position. Patient does not appear to be in distress or discomfort. The patient does state a few words. The patient opens his eyes. When asking if he has pain, states no and then closes eyes and does not participate actively in the assessment process. Staff reports no further concerns for the patient. MEDICATIONS: Have been reviewed. EXAMINATION: Temp 97.4, blood pressure 124/76, pulse 68, respirations 16, pulse ox 97% on room air, weight 187.2 pounds. Respirations are easy and unlabored with the patient at rest. Lung sounds are clear. Heart rate and rhythm regular. Abdomen: Soft, nontender with palpation. Bowel sounds present x4. Genitourinary: Martini catheter is intact. It is draining a clear yellow urine. Extremities: Left lower extremity nonedematous. Right lower extremity boot is noted to be intact with dressing intact. There is a small amount of dried bloody drainage noted on the dressing and loosening a splint in boot, visualized sutures. No erythema. No purulent drainage and no foul odors are identified and replaced dressing in boot. The patient has now moving all toes. Cap refill is brisk. IMPRESSION PLAN: 1. Fracture low tibia and fibula, subsequent encounter with routine healing. Continue to monitor for signs of infection. Continue boot and dressing. The patient does not appear to be in distress or discomfort. Does have acetaminophen for lesser pain, oxycodone for more severe pain. Continue to monitor for neurovascular compromise. 2. Fracture, right clavicle, subsequent encounter. Patient does not appear to be in discomfort. Lidocaine patch. The patient does have oxycodone and acetaminophen as well. 3. Surgical aftercare for orthopedic concerns. The patient will follow with Orthopedic Services. 4. Hypertension. The patient's blood pressure is fairly well controlled. Continue antihypertensives. 5. Hyperlipidemia, on statins. 6. History of autism with depression and obsessive-compulsive disorder. The patient will be seen by Psychiatric Services. Vistaril twice daily for 14 days. Continue to monitor moods and behavior. DICTATED BY: JEREMY Fleming/AMERICA JOB# [id number] [facility]10-01-2025 NoteHNO ID: [id number] Author: YASH DOWNS APRN.JEREMY Service: ? Author Type: Nurse Specialist Type: Progress Notes Filed: 11/29/2024 16:45 Note Text: [facility] NOTE NAME: ALETHEA LEI [facility] NO.: [id number] DATE OF SERVICE: 11/23/2024 ATTENDING PHYSICIAN: JEREMY Fleming [facility] Chart note REASON FOR VISIT: The patient is a resident of [facility] at [facility]. This is a skilled visit for fracture of the right tibia and right fibula with fracture of the right clavicle, subsequent encounter with surgical repair and other medical concerns. Upon entering the room, found the patient resting with eyes closed. The patient does not appear to be in distress or discomfort. The patient is noted to have boot and splint intact to the right lower extremity. The patient is easily aroused. The patient states very few words. Does state he has no pain and is breathing okay. The patient is a poor historian and does not participate in assessment process. MEDICATIONS: Have been reviewed. EXAMINATION: Temp 97.7, blood pressure 123/79, pulse 80, respirations 16, pulse ox 95% on room air, weight 189.2 pounds. Respiratory: Respirations are easy and unlabored with patient at rest. Lung sounds are clear. Heart: Rate and rhythm regular. Abdomen: Soft and nontender with palpation. Bowel sounds present x4. Extremities: Nonedematous. Musculoskeletal: Right lower extremity boot is intact. Dressing is dry and intact. The patient moves all toes distally. Cap refill is brisk. IMPRESSION AND PLAN: 1. Fracture of the right tibia and fibula, subsequent encounter with routine healing, continue boot. Monitor for signs of infection, none identified this visit, on acetaminophen, Robaxin for lesser pain, oxycodone for more severe pain. The patient is taking doxycycline prophylactically. The patient is nonweightbearing to the right lower extremity. We will continue to follow with Orthopedic Services. 2. Right clavicle fracture, subsequent encounter, occasional pain at this time. Again, the patient is on acetaminophen, Robaxin for lesser pain, oxycodone for more severe pain, cool compress will benefit, and the patient does have lidocaine patch. 3. Hypertension, the patient has fair blood pressure control. Continue antihypertensives. 4. Hyperlipidemia, on statins. 5. History of depression with psychosis, no behavioral issues reported per staff, on paroxetine, haloperidol, benztropine. The patient will follow with Psychiatric Services as needed. 6. Intellectual disability. Continue supportive care. DICTATED BY: JEREMY Fleming KE/AQT JOB# [id number] [facility]09-30-2025 Telephone encounter Note* Telephone Encounter - Shirin Ghosh - 11/22/2024 4:08 PM EDT Called nursing facility .. Nurse that supports was gone please call in am and she will direct assist due to understanding patients needs. Thank You ,. [id number] Miscellaneous Notes* Telephone Encounter - Shirin Ghosh - 11/22/2024 4:08 PM EDT Called nursing facility .. Nurse that supports was gone please call in am and she will direct assist due to understanding patients needs. Thank You ,. documented in this [id number] NoteReferral Received? HEIDI Beal from [facility] calling to see if OS referral was received so she can schedule an appt. Lian emailed referral with ETS on 11/09. Please call Lian to advise of receipt and schedule appt if possible. Lian [phone] ext [phone] nursing line Thanks![facility] [id number] NoteHNO ID: [id number] Author: QUYNH PINEDA MD Service: ? Author Type: Physician Type: Progress Notes Filed: 11/22/2024 16:28 Note Text: [facility] NOTE NAME: ALETHEA LEI [facility] NO.: [id number] DATE OF SERVICE: 11/21/2024 ATTENDING PHYSICIAN: Quynh Pineda MD [facility] PATIENT HISTORY AND PHYSICAL: HISTORY OF PRESENT ILLNESS: The patient is a 54-year-old male who is admitted to us from 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 He initially presented to [facility] after he reportedly experienced a fall. He was apparently walking with the caregiver in the group facility where he resides when they heard a snap in his leg, after which he fell to the ground. No definite reports of loss of consciousness or head trauma. He was noted to have obvious deformity involving his right lower extremity. Evaluation there did reveal a spiral distal right tibia fracture, as well as right clavicle fracture. He was noted to have indeterminate compression fractures involving T3 and T8. The patient was then transferred to [facility] where he was seen by the orthopedic service and did undergo surgical repair consisting of right tibia IMN and right ankle NEGRA, which he tolerated well. He was also seen by the urology service due to difficulty with inserting his Martini catheter. There was concern for possible stricture. He did undergo cystoscopy, which revealed no stricture. His condition was stabilized, and he is now admitted to our facility for continued therapy prior to returning back to his [facility]. REVIEW OF SYSTEMS: He is currently sitting up in bed. He is awake. He is unable to provide any reliable information regarding his recent hospitalization or past medical history. He currently denies any pain or discomfort. Once again, no reports of any head trauma. He has had no documented shortness of breath or chest pain. He has no documented history of COPD, asthma, bronchitis or recent pneumonia. He has no documented cardiac history. No prior strokes. 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 Also, underlying ADHD and OCD. He does have chronic kidney disease stage 3, and hypothyroidism. FAMILY HISTORY: Significant for hypertension. SOCIAL/FUNCTIONAL HISTORY: He does not smoke or abuse alcohol. Once again, he lives in a [facility]. MEDICATIONS: Amlodipine 10 mg daily for hypertension, aspirin 81 mg b.i.d., benztropine 1 mg t.i.d., calcium carbonate with vitamin D b.i.d., clonidine 0.1 mg t.i.d., doxycycline 100 mg b.i.d. for prophylaxis until November 27, 2024, Haldol 10 mg at bedtime and 15 mg b.i.d., Keppra 500 mg b.i.d., levothyroxine 137 mcg daily, Lipitor 40 mg at bedtime for hyperlipidemia, methocarbamol 750 mg every 8 hours for 7 days, nebivolol 5 mg daily, oxcarbazepine 600 mg q.a.m. and 1200 mg at bedtime, oxycodone p.r.n., oyster shell calcium b.i.d., Paxil 60 mg daily, MiraLAX daily, Senokot at bedtime, tamsulosin 0.4 mg at bedtime. ALLERGIES: ARIPIPRAZOLE and PERTUSSIS VACCINE. EXAMINATION: Afebrile, vital signs stable. He is in no distress. He does appear chronically ill. HEENT: Extraocular movements intact, sclerae nonicteric. Ears intact. Lungs: Clear. Heart: Regular. Abdomen: Soft, nontender. Bowel sounds present. Extremities: No edema on the left. Right distal lower extremity is heavily bandaged and in a brace. Toes are pink and warm. He does seem to have some generalized weakness. IMPRESSION: 1. Status post right tibia intramedullary nailing and right ankle removal of hardware for acute right spiral distal tibia fracture with associated posterior malleolar fracture related to acute fall. Also, right clavicle fracture. We will continue with current rehab services. We will obtain followup CBC to rule out postoperative blood loss anemia. The patient will follow up with Orthopedics as an outpatient. 2. Hypertension-maintain current antihypertensive regimen, monitor blood pressure closely, make adjustments as needed. 3. Hyperlipidemia - continue statin therapy. 4. History of tuberous sclerosis with intellectual disability with associated attention deficit hyperactivity disorder/obsessive-compulsive disorder and depression with autistic spectrum disorder-continue to monitor his mood and behavior closely. Maintain current psychiatric medications. 5. Chronic kidney disease, st (more content not included)...[facility]09-27-2025 NoteDISCHARGE SUMMARY [address] [address] Alethea Lei Date of : 1970 54 year oldmale Attending No att. providers found Date of Admission 11/13/2024 Date of Discharge 11/18/[address] [facility] DIVISION OF ACUTE CARE SURGERY FINAL DIAGNOSES: 1. S/p mechanical fall on 11/13/2024 2. R clavicle fx (Ortho, non-op) 3. T3 vertebral body fx (Ortho Spine, non-op) 4. T8 compression deformity (Ortho Spine, non-op) 5. Proximal R fibula fx (Ortho) 6. Open R distal tib/fib fx (Ortho, s/p R tibia IMN and R ankle removal of hardware on 11/14) 7. Acute pain due to trauma 8. Acute post op pain 9. Urinary retention 10. SHANON 11. Leukocytosis 12. Acute blood loss anemia 13. Hypernatremia PROCEDURES: 11/14/24 Intramedullary nail fixation, right tibia fracture. Removal of deep implant, right tibia by Dr. Truong DISCHARGE MEDICATIONS: Discharge Medication List as of 11/18/2024 7:25 PM START taking these medications Details acetaminophen (TYLENOL) 500 MG tablet Take 2 Tablets by mouth every 8 hours as needed.1,000 mg No Print Disp-90 Tablet, R-0 - Until 12/18/2024 at 2359 doxycycline (VIBRA-TABS) 100 MG tablet Take 1 Tablet by mouth 2 times daily for 15 doses.100 mg No Print Disp-15 Tablet, R-0 - Until 11/26/2024 lidocaine (LIDODERM) 4 % PTCH patch Place 1 Patch on the skin every 24 hours for 14 days.1 Patch No Print Disp-14 Patch, R-0 - Until 12/03/2024 methocarbamol (ROBAXIN) 750 MG tablet Take 1 Tablet by mouth every 8 hours as needed for up to 7 days.750 mg No Print Disp-14 Tablet, R-0 - Until 11/25/2024 at 2359 oxyCODONE 5 MG immediate release tablet Take 1 Tablet by mouth every 6 hours as needed for up to 10 doses.5 mg Print Rx Disp-10 Tablet, R-0 - Until 11/25/2024 at 2359 polyethylene glycol (MIRALAX) packet Dissolve 1 Packet (17 g total) in 8 ounces of liquid and drink daily.17 g No Print Disp-7 Packet, R-0 - Until 11/26/2024 CONTINUE these medications which have CHANGED Details benztropine (COGENTIN) 1 MG tablet Take 1 Tablet by mouth 3 times daily.1 mg No Print Disp-90 Tablet, R-0 - Until 12/18/2024 cloNIDine (CATAPRES) 0.1 MG tablet Take 1 Tablet by mouth 3 times a day.0.1 mg No Print Disp-90 Tablet, R-0 - Until 12/18/2024 !! OXcarbazepine (TRILEPTAL) 300 MG/5ML oral suspension Take 10 mL by mouth daily.600 mg No Print Disp-300 mL, R-0 - Until 12/19/2024 !! OXcarbazepine (TRILEPTAL) 300 MG/5ML oral suspension Take 20 mL by mouth at bedtime.1,200 mg No Print Disp-600 mL, R-0 - Until 12/18/2024 PARoxetine (PAXIL) 30 MG tablet Take 2 Tablets by mouth at bedtime.60 mg No Print Disp-60 Tablet, R-0 !! - Potential duplicate medications found. Please discuss with provider. CONTINUE these medications which have NOT CHANGED Details !! haloperidol (HALDOL) 10 MG tablet Take 10 mg by mouth every evening.10 mg Historical Med nebivolol (BYSTOLIC) 5 MG TABS tablet Take 5 mg by mouth daily.5 mg Historical Med levothyroxine (SYNTHROID) 137 MCG tablet Take 137 mcg by mouth daily.137 mcg Historical Med levETIRAcetam (KEPPRA) 500 MG tablet Take 500 mg by mouth 2 times daily.500 mg Historical Med !! haloperidol (HALDOL) 5 MG tablet Take 15 mg by mouth 2 times a day.15 mg Historical Med amLODIPine (NORVASC) 10 MG tablet Take 10 mg by mouth daily.10 mg Historical Med Calcium Carb-Cholecalciferol (Oyster Shell Calcium w/D) 500-5 MG-MCG TABS Take 1 Tablet by mouth 2 times daily.1 Tablet Historical Med atorvastatin (LIPITOR) 40 mg tablet Take 40 mg by mouth daily.40 mg Historical Med !! - Potential duplicate medications found. Please discuss with provider. STOP taking these medications Multiple Vitamin (DAILY FELI ORAL) Comments: Reason for Stopping: oxcarbazepine (TRILEPTAL) 600 MG tablet Comments: Reason for Stopping: tamsulosin (FLOMAX) 0.4 MG capsule Comments: Reason for Stopping: senna (SENOKOT) 8.6 MG tablet Comments: Reason for Stopping: Linzess 145 MCG CAPS capsule Comments: Reason for Stopping: Multiple Vitamin (DAILY FELI ORAL) Comments: Reason for Stopping: Dentifrices (BIOTENE DRY MOUTH DENTAL) Comments: Reason for Stopping: potassium chloride SA (K-DUR) 10 MEQ controlled release tablet Comments: Reason for Stopping: ALENDRONATE-CHOLECALCIFEROL ORAL Comments: Reason for Stopping: Aspirin (ASPIR-81 ORAL) Comments: Reason for Stopping: kgaojmh-oipjhyumul-wsyfcnpwz pertussis (BOOSTRIX) 5-2.5-18.5 LF-MCG/0.5 injection Comments: Reason for Stopping: BEGIN TAKING ASPRIN 81MG BID FOR 6 WEEKS. skilled nursing called to inform about DVT prophylaxis REASON FOR HOSPITALIZATION: Alethea Lei is a 54 year old male with PMH of autism, seizure disorder, OCD, CKD-stage 3, depression, hypothyroidism, BPH, urinary retention, and history of frequent falls presented to [facility] ED s/p fall. Unknown headstrike, unknown LOC. Transferred to [facility] due (more content not included)...[employer] 11-18-2024 NoteEXAMINATION: XR T-SPINE 3 VIEWSPRO 11/18/2024 05:14 PM CLINICAL HISTORY: Evaluation of alignment in setting of known T spine fractures ASSOCIATED DIAGNOSIS: ORDERING PROVIDER: KIMBERLY HUNTER TECHNRILEY NOTE: COMPARISON: CT thoracic/ lumbar spine on 11/13/2024. FINDINGS/ IMPRESSION: Limitations: * Evaluation of the upper thoracic spine is suboptimal on the lateral images because of the shoulders. * Evaluation of the vertebral body heights is suboptimal secondary to suboptimal projection of the lateral view. * The x-ray is further degraded by motion related artifact on lateral view. Within the constraints described above, no evident vertebral body height loss or significant listhesis is seen. MACRO: None [id number] NoteEXAMINATION: XR T-SPINE 3 VIEWSPRO 11/18/2024 05:14 PM CLINICAL HISTORY: Evaluation of alignment in setting of known T spine fractures ASSOCIATED DIAGNOSIS: ORDERING PROVIDER: KIMBERLY HUNTER TECHNRILEY NOTE: COMPARISON: CT thoracic/ lumbar spine on 11/13/2024. FINDINGS/ IMPRESSION: Limitations: * Evaluation of the upper thoracic spine is suboptimal on the lateral images because of the shoulders. * Evaluation of the vertebral body heights is suboptimal secondary to suboptimal projection of the lateral view. * The x-ray is further degraded by motion related artifact on lateral view. Within the constraints described above, no evident vertebral body height loss or significant listhesis is seen. MACRO: NoneThe [facility] Hospital[facility]ek [id number] NoteSocial Work Progress Note Plan is for pt to dc to SNF. SW received a vm from the [facility] pt's [facility] [phone]. They are not able to accept however they have talk with pt's mother and gave the following choices: - [facility] [place] [facility] sent the referral. Pt will not need a precert Addendum 1:40pm Pt was accepted by [facility] however the [place] decision is still pending. EBENEZER called pt's mother Marlin Lei [phone] to verify FOC she stated that she will call the SW back [facility] NoteArt Therapy Note Referral received. Chart reviewed, history noted. Thank you. Patient identified by Verbalizing name and Wristband Narrative Note: AT entered the patient's room to introduce art therapy support services and conduct an initial assessment. Patient was observed lying in bed with eyes closed. Upon verbal greeting, patient opened his eyes, made good eye contact, and looked at AT. AT introduced self and provided an overview of art therapy services, including the purpose, potential benefits, risks, and types of interventions. Throughout the interaction, the patient intermittently closed his eyes and appeared to pretend to be sleeping, though he remained responsive when spoken to. When invited to participate in art-making, patient verbally indicated he enjoys drawing and was agreeable to engaging in art through drawing. Drawing materials were provided; however, the patient did not initiate use of them. Due to limited engagement, AT began a simple doodle drawing within view to model participation. The patient observed but did not interact with materials or respond further. Patient requested ice water during the visit. When AT returned with water, nursing staff were providing care. AT concluded the session at that time. Goals Addressed: Improved quality of life/self-esteem/adjustment/sense of autonomy as evidenced by: increased engagement in verbal interaction Plan: Art therapy will follow patient focusing on Art Plan List: enhancing adjustment to hospitalization/medical situation Please refer to Art Therapy flowsheet for more data. Keira Jmienez MA, LPAT, ATR- Art Therapist, [place] [facility]09-24-2025 Note Social Work Progress Note Plan is for pt to dc to [facility] vs SNF. SW called [phone] RN supervisor lending activities Ginny and sent facility clinicals (fax: [phone]). SW will await response on if facility can accept pt back Addendum 2:16pm SW called [facility] [phone] x [phone] and was told that DON will call back Pt is still pending med clearance and will not need precert SW will continue to follow Hernandez Fabina [facility]09-24-2025 NoteORTHOPAEDIC SURGERY PROGRESS NOTE Trauma Surgery primary ASSESSMENT Alethea Lei is a 54 year old male who sustained GA1, NVI RIGHT tibia shaft fracture now sp RIGHT tibia IMN, RIGHT ankle NEGRA with Dr. Truong on 11/14. Routine postoperative recovery. PLAN: - Activity: NWB RLE in [place] splint at all times - Antibiotics: 24hrs periop Ancef and x10d 100mg doxycycline BID - DVT PPX: Defer choice of chemoppx per primary (recommend at least 81mg ASA BID starting POD1) - Diet: Ok for regular from orthopaedic standpoint - Pain control: Pain control per primary; recommend MM PO/IV - HLIV when tolerating adequate PO - PT/OT on POD1 - IS encouraged - Martini: NDFP - Cultures: N/a - Hb 9.4, no indication for transfusion - Orthopaedic surgery will follow peripherally for remainder of admission, please reach out with any questions/concerns as they arise. Dispo: regulatory affairs strategy specialist for [facility] SUBJECTIVE: No acute events overnight. Pain well controlled . Denies f/c/cp/sob/n/v. OBJECTIVE: Vitals: 11/16/24 0500 BP: 150/93 Pulse: 91 Resp: 18 Temp: 98.2 ???F (36.8 ???C) SpO2: 98% BMP (last 3 years, up to 8 values) 11/16/2024 11/15/2024 11/14/2024 11/13/2024 1:35 AM 2:32 AM 6:29 AM 9:04 AM Na 149 146 144 143 K 4.1 4.6 4.4 4.6 Cl 113 113 109 110 CO2 27 23 27 24 Gap 13 15 12 14 Glu 125 136 105 130 BUN 23 26 28 30 Cr 1.69 1.85 1.81 2.03 Ca 9.1 8.8 8.7 8.9 eGFR 47 42 43 38 CBC (last 3 years, up to 8 values) 11/16/2024 11/15/2024 11/14/2024 11/13/2024 1:35 AM 2:32 AM 6:29 AM 9:04 AM WBC 9.2 9.7 6.7 13.0 RBC 2.75 3.25 3.33 3.83 Hgb 9.4 10.7 11.4 12.7 Hct 27.0 32.5 32.6 38.0 MCV 98 100 98 99 RDW 13.5 13.6 13.2 13.7 Plt 160 169 183 157 Intake/Output Summary (Last 24 hours) at 11/16/2024 0629 Last data filed at 11/16/2024 0600 Gross per 24 hour Intake 480 ml Output 1975 ml Net -1495 ml PHYSICAL EXAM: Gen: NAD, A AND O x3 RIGHT Lower Extremity Surgical dressings CDI Fires EHL, wiggles toes SILT SPN/DPN/S/S/T Toes wwp; 2+ PT and DP pulses Compartments soft, compressible; no pain with passive range of motion -- Jethro Luciano MD Orthopedic Surgery PGY-3 [facility] Orthopaedic Trauma Team B Prefer Spaces 2 Host for correspondence Page or call with urgent matters After 6:00 PM, or on weekends, please page the orthopaedic on-call resident at [phone]. For questions/issues: Patient will be followed by the ORTHO TEAM B. Please page: Team A: (Epic chat preferred) Celso Liu, PGY-2 Javier Serrano (AJ), PGY-2 Team B: (Epic chat preferred) First call: Heriberto Morgan (Alex), PGY-1 Second Call: Jethro Luciano, PGY-3 Elective Team: (Epic chat preferred) Inga Shelton, PGY-2 Foreign Black, PGY-3The [facility] [id number] Note* Addendum Note - Thanh Linton MD - 11/15/2024 2:56 PM EDT Addendum created 11/15/241455 by Thanh Linton MD Clinical Note Signed [facility] Work Phone: [phone] 315-462109-23-2025 Miscellaneous Notes* Addendum Note - Thanh Linton MD - 11/15/2024 2:56 PM EDT Addendum created 11/15/241455 by Thanh Linton MD Clinical Note Signed * Anesthesia Transfer Of Care - Sendy Wayne APRN-SUPERVISOR BLUEPRINTING AND PHOTOCOPY - 11/14/2024 10:56 AM EDT Images from the original note were not included. Patient taken to PACU. Patient was drowsy, comfortable, and stable on arrival. Anesthesia Transfer of Care Note Past Medical History: Medical History[1] Sleep Apnea/Positive STOP-BANG: No Problem List: Problem List[2] Past Surgical History: Review of patient's past surgical history indicates: DENTAL RESTORATIONS (01/25/2021) Procedure: DENTAL RESTORATIONS; Surgeon: Mina Solorzano DDS; Location: [facility] Surgery [place]; Service: Dental EXCISION, LESION, ORAL (01/25/2021) Procedure: EXCISION, LESION, ORAL; Surgeon: Mina Solorzano DDS; Location: [facility] Surgery [place]; Service: Dental Allergies: Aripiprazole, Pertussis vaccine, and Pertussis vaccines Basic Operating Room Facts: Surgeon(s): Jose Truong MD Levine, Ari D., MD Shine, Samuel, DO Anesthesiologist: Owen Sanders MD CAA: Crystal Marinelli CAA SUPERVISOR BLUEPRINTING AND PHOTOCOPY: Sendy Wayne APRN-CRNA Anesthesia Student: Moses Major REDUCTION, OPEN, TIBIA, INTRAMEDULLARY MARKOS (Right: Leg Lower) REDUCTION, OPEN, TIBIA (Right: Leg Lower) Intraoperative Events: No acute event ASA: 3 EBL: Not documented Urine 155 mL Lactated Ringers and NaCl 0.9%: Fluid Totals (Filter: LR and NaCl 0.9% Medications Shown) Medication Calculated Total Lactated Ringers 900 mL / 1 bag Cell Saver: Not documented Blood Volume Values: Blood Products None MTP Blood: MTP PRBC: Not documented MTP FFP: Not documented MTP PLT: Not documented MTP Cryo: Not documented MTP Whole Blood: Not documented Current Vasoactive Medications: {Vasoactive Medications: None Lines, Drains, Airways Peripheral IV Access: 11/13/24 0907 20 gauge Anterior;Left Wrist (Active) Site Assessment Dressing intact;Edema;Erythema 11/14/24 0850 Infusion Status Port #1 Other (comment) 11/14/24 0850 Peripheral IV Access: Right Forearm (Active) Site Assessment Other (comment);Edema 11/14/24 0852 Infusion Status Port #1 Patent 11/14/24 0852 Peripheral IV Access: 11/14/24 0849 20 gauge x 1.88 inch Mid;Anterior;Left Forearm (Active) Airway Insertion Details [REMOVED] Advanced Airway: ETT, Oral;Cuffed #8 (Removed) 11/14/24 0754 Pre-Oxygenation/ Induction: Mask Rapid Sequence Induction?: Mask Ventilation: Easy Blade Type: Mac Blade Size: 4 Visualization: Grade 1 Airway Type: ETT, Oral;Cuffed Airway Size: #8 Post Insertion Assessment: Confirmation: Equal bilateral breath sounds, CO2 confirmed # Attempts >1: Special Equipment: Present on Admission?: Previously Removed / Not Present: Removal Reason: Not Removed at Discharge: Removed 11/14/24 1046 Location (cm) 24 11/14/24 0754 Measured from: Upper Lip 11/14/24 0754 Secured via: Taped 11/14/24 0754 Site Assessment WNL 11/14/24 0754 All non-working IVs have been removed: Yes Laboratory Data: CBC (last 3 years, up to 8 values) 11/14/2024 11/13/2024 6:29 AM 9:04 AM WBC 6.7 13.0 RBC 3.33 3.83 Hgb 11.4 12.7 Hct 32.6 38.0 MCV 98 99 RDW 13.2 13.7 Plt 183 157 BMP (last 3 years, up to 8 values) 11/14/2024 11/13/2024 6:29 AM 9:04 AM Na 144 143 K 4.4 4.6 Cl 109 110 CO2 27 24 Gap 12 14 Glu 105 130 BUN 28 30 Cr 1.81 2.03 Ca 8.7 8.9 eGFR 43 38 Basic Metabolic Panel 11/14/2024 11/13/2024 6:29 AM 9:04 AM Na 144 143 K 4.4 4.6 Cl 109 110 CO2 27 24 Gap 12 14 Glu 105 130 BUN 28 30 Cr 1.81 2.03 Ca 8.7 8.9 Mg 2.1 -- PO4 4.0 -- INR (no units) Date Value 11/14/2024 1.20 (H) 11/13/2024 1.12 (H) No result for BNP LFT's (last 3 years, up to 8 values) No lab values to display. Arterial Blood Gases None Hand off Completed: Yes 1. The patient was identified. 2. Pertinent medical history was relayed. 3. A brief discussion was had about any pertinent surgical/ procedural issues. 4. Intraoperative/ anesthetic management issue and concerns were discussed. 5. Plans for the early post-operative period relayed. 6. An opportunity for questions and acknowledgment of understanding of the report was received. Sendy Wayne, CREDIT ADMINISTRATION MANAGER-SUPERVISOR BLUEPRINTING AND PHOTOCOPY [1] Past Medical History: Diagnosis Date Anemia OSH H + P 01/08/2021 CKD (chronic kidney disease), stage I OSH H + P 01/08/2021 Dental caries Moderate intellectual disability OSH H + P 01/08/2021 Tuberous sclerosis (HCC) OSH H + P 01/08/2021 [2] Patient Active Problem List Diagnosis Code Dental caries K02.9 Displ spiral fx shaft of r tibia, init for opn fx type I/2 S82.241B Type I or II open fracture of right tibia and fibula, initial encounter S82.201B, S82.401B documented in this [id number] NoteOCCUPATIONAL THERAPY INITIAL EVALUATION Patient seen from 55 to 1015 on GC5E unit for 20 minutes. 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 Precautions/Activity Order: Procedures this admit: 11/14/24 (Alexi) 1. Intramedullary nail fixation, right tibia fracture 2. Removal of deep implant, right tibia Past Medical and Surgical History: Medical History[1] Autism, Seizure disorder, OCD, ADHD Intellectual disability CKD-stage 3, Depression, Hypothyroidism, BPH, Urinary retention History of frequent falls SUBJECTIVE: Patient Subjective: how you doing? , pt minimally verbal through out session Patient Identified Goal(s): none stated Home Living Situation: pt is a poor historian Prior Functional Status: per medical chart Patient ambulates without DME at baseline. Per mother does have a history of multiple falls at his [facility] Assistance Available at Home: Unclear level of assist available at [facility]cf[facility] Patient lives in a ? story home ? stairs to enter. Full Bathroom on ? level, 1/2 Bathroom on ? level. Bedroom on ? level. Equipment available at home: ? OBJECTIVE: Patient Identification: patient verbalizing his/her name and date of . Risks and benefits of occupational therapy: Patient informed of risks and benefits of treatment Appearance: Supine, IV, RLE [place] splint, RUE sling Alertness: WFL Affect: WNL Cooperation/Behavior: Flat with intermittent outbursts, resistive to care Communication: minimal verbalizations Pain: Pain rating: unrated/10, Location: RLE Pain Relief Interventions Implemented: RN aware and reports patient received medication according to time schedule Self Care: Assistance Level Dep Max Mod Min CG CS DS [place] I Set-Up Comment Feeding x x Able to bring cup to mouth Grooming/Hygiene x Anticipated Bathing:UB x Simulated sponge bathing Bathing:LB x Simulated sponge bathing Dressing:UB x Anticipated to don shirt Dressing: LB x Anticipated to don pants Toileting x Anticipated Transfers/Bed Mobility: Assistance Level Dep Max Mod Min CG CS DS KS I Set-Up Comment Toilet Transfers NT Bed Transfers NT, unsafe due to behavior Bed Mobility x2 Supine <> sit EOB Endurance for Self Care: Impaired Static Sitting Balance: CS Dynamic Sitting Balance: CGA UE Motor: LUE AROM and strength WFL RUE NWB, shoulder AROM NT, hand wrist and elbow WFL Vision/Perception: NT Cognition: Pt with baseline intelectual disability Orientation: Oriented to self only, pt not responsive to orientation questions Follows Commands: one step commands inconsistently Attention: Impaired Memory: Impaired Problem Solving: Impaired Safety/Judgement: Impaired Sequencing: Impaired Patient/Family Education: Instructed patient in roles of therapy, importance of OOB activity and occupational engagement, discharge planning, fall prevention Patient up in chair with call light in reach. Chair alarm intact. DME: With Patients permission ordered no equipment via [employer] Order. If any questions contact [facility] DME Provider at [phone]. 11/15/2024 6 Clicks Daily Activity OT Help from another person Eating meals 3 Help from another person taking care of personal grooming 3 Help from another person bathing 2 Help from another person putting on and taking off regular upper body clothing 2 Help from another person putting on and taking off regular lower body clothing 1 Help from another person toileting 1 OT 6 Clicks Score 12 6 Click Score Guidelines: 1 - Unable = Total/Dependent Assist 2 - A lot = Max/Moderate Assist 3 - A little = Minimum/Contact Guard Assist/Supervision 4 - Non = Modified [place]/Independent ASSESSMENT: Recommend further therapy services in a Skilled Rehab Setting once medically cleared. Will continue to follow patient while in hospital as appropriate. Rehabilitation Potential: Fair Problem List: decreased ADLs, impaired upper extremity motor function, decreased endurance, decreased functional transfers/mobility, impaired balance, decreased cognition, decreased home management tasks/IADLs, decreased functional activity tolerance, and increased pain Goals (to be achieved by discharge from acute care): Patient will perform grooming with Distant supervision Patient will dress upper body with Distant supervision Patient will dress lower body with Moderate assistance Patient will per (more content not included)...[employer] [id number] NotePHYSICAL THERAPY ACUTE EVALUATION Referral received, chart reviewed. Patient seen from 955 to 1015 on GC5E unit for 20 minutes. 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 Procedures this admit: 11/14/24 (Alexi) 1. Intramedullary nail fixation, right tibia fracture 2. Removal of deep implant, right tibia Past Medical and Surgical History: Autism, Seizure disorder, OCD, ADHD Intellectual disability CKD-stage 3, Depression, Hypothyroidism, BPH, Urinary retention History of frequent falls Precautions: NWB (R) UE NWB (R) LE Progressive Mobility Protocol [place] Risk Full Code Regular Diet Identification was verified by patient's id band and date of . Risks and Benefits of physical therapy: Patient informed of risks and benefits of treatment (will need review) SUBJECTIVE: Patient Subjective: How you doing? Patient appropriately greets Therapist at onset of Session. Patient Identified Goal(s): No! Stop! It hurts! (With mobility) I want chocolate milk! 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 Per mother does have a history of multiple falls at his [facility] Home: Lives in a [facility] [phone] ? steps to enter ? steps to bedroom/bathroom Assistance available: 15/09 Correction Staff Equipment available: Unknown OBJECTIVE: Appearance: Supine in bed, Hospital gown, dressings and [place] Splint intact (R) LE, martini catheter *Sling donned to (R) UE by Therapists prior to mobility Behavior: Alert, child-like, minimally verbal, painful and anxious with mobility, escalates to agitation quickly. Oriented x self Follows simple step commands inconsistently Pain: (R) LE with mobility / ROM Pain Scale: ~8/10 Pain Relief Interventions Implemented: Positioning, Relaxation Training, RN aware and reports patient received medication according to time schedule Passive ROM: Grossly WFL x 4 extremities (R) ankle not tested, (R) hip/knee with full ROM available (R) shoulder not tested, all other (R) UE WFL Strength/Active ROM: Strong and symmetrical (B) Hemibody No motor deficit identified (B) LE grossly 4/5 Mobility: Supine to sit via long sit: Max A x 2 overall, NWB (R) UE Seated balance at EOB: Varies from Max A x 2 to CGA x 1 with increased time and cues for safety. Patient with increasing anxiety at EOB; unable to advance to OOB to chair due to safety concerns. Return to supine in bed and postioning in bed: Max A x 2 overall *Increased time required to achieve positioning in bed for Patient comfort and safety Endurance: Impaired, (+) fatigue with exertion. Patient Education: (will need review) Educated Patient in role of Physical Therapy Evaluation/Tx during INPT Stay. Educated Patient in NWB status of (R) UE/(R) LE Educated Patient NOT to stand or mobilize without Staff Assist to minimize fall risk and improve safety. Patient remains supine in bed at end of Session; comfortable. Bed alarm intact , call light in reach 11/15/2024 6 Clicks Basic Mobility PT Difficulty turning over in bed 2 Difficulty sitting down and standing up from a chair with arms 1 Difficulty moving from lying on back to sitting on the side of the bed 2 Help from another person moving to and from bed to a chair 1 Help from another person to walk in hospital room 1 Help from another person climbing 3-5 steps with a railing 1 PT 6 Clicks Score 8 6 Click Score Guidelines: 1 - Total = Requires total assistance, or cannot do at all. 2 - A lot = Requires a lot of help (maximun to moderate assistance) Can use assistive devices. 3 - A little = Requires a little help (supervision, minimal assistance) Can use assistive devices. 4 - None = Does not require any help and does the activity independently. Can use assistive devices. Progressive Mobility Protocol Score: Level 2: Sitting on EOB with Assist ASSESSMENT: Alethea Lei is a 54 year old yo male admit 9.21.25 s/p fall from standing with resultant injuries as detailed above. Patient is NWB to (R) UE/(R) LE as a result of injury Patient presents as painful and child-like with poor insight to situation and inability to conceptualize NWB to (R) UE/(R) LE Recommend ongoing INPT PT/OT in a Skilled Setting to establish highest functional outcomes to all (more content not included)...[employer] 11-15-2024 NoteORTHOPAEDIC SURGERY PROGRESS NOTE Trauma Surgery primary ASSESSMENT Alethea Lei is a 54 year old male who sustained GA1, NVI RIGHT tibia shaft fracture now sp RIGHT tibia IMN, RIGHT ankle NEGRA with Dr. Truong on 11/14. Routine postoperative recovery. PLAN: - Activity: NWB RLE in [place] splint at all times - Antibiotics: 24hrs periop Ancef and x10d 100mg doxycycline BID - DVT PPX: Defer choice of chemoppx per primary (recommend at least 81mg ASA BID starting POD1) - Diet: Ok for regular from orthopaedic standpoint - Pain control: Pain control per primary; recommend MM PO/IV - HLIV when tolerating adequate PO - PT/OT on POD1 - IS encouraged - Martini: NDFP - Cultures: N/a - Hb stable, no indication for transfusion Dispo: Per primary pending PT/OT eval SUBJECTIVE: No acute events overnight. Pain well controlled . Denies f/c/cp/sob/n/v. OBJECTIVE: Vitals: 11/15/24 0600 BP: 164/79 Pulse: 93 Resp: 16 Temp: 99.7 ???F (37.6 ???C) SpO2: 94% BMP (last 3 years, up to 8 values) 11/15/2024 11/14/2024 11/13/2024 2:32 AM 6:29 AM 9:04 AM Na 146 144 143 K 4.6 4.4 4.6 Cl 113 109 110 CO2 23 27 24 Gap 15 12 14 Glu 136 105 130 BUN 26 28 30 Cr 1.85 1.81 2.03 Ca 8.8 8.7 8.9 eGFR 42 43 38 CBC (last 3 years, up to 8 values) 11/15/2024 11/14/2024 11/13/2024 2:32 AM 6:29 AM 9:04 AM WBC 9.7 6.7 13.0 RBC 3.25 3.33 3.83 Hgb 10.7 11.4 12.7 Hct 32.5 32.6 38.0 MCV 100 98 99 RDW 13.6 13.2 13.7 Plt 169 183 157 Intake/Output Summary (Last 24 hours) at 11/15/2024 0654 Last data filed at 11/15/2024 0600 Gross per 24 hour Intake 1325 ml Output 1630 ml Net -305 ml PHYSICAL EXAM: Gen: NAD, A AND O x3 RIGHT Lower Extremity Surgical dressings CDI Fires EHL, wiggles toes SILT SPN/DPN/S/S/T Toes wwp; 2+ PT and DP pulses Compartments soft, compressible; no pain with passive range of motion -- Jethro Luciano MD Orthopedic Surgery PGY-3 [facility] Orthopaedic Trauma Team B Prefer Spaces 2 Host for correspondence Page or call with urgent matters After 6:00 PM, or on weekends, please page the orthopaedic on-call resident at [phone]. For questions/issues: Patient will be followed by the ORTHO TEAM B. Please page: Team A: (Epic chat preferred) Celso Liu, PGY-2 Javier Serrano (AJ), PGY-2 Team B: (Epic chat preferred) First call: Heriberto Morgan (Alex), PGY-1 Second Call: Jethro Luciano, PGY-3 Elective Team: (Epic chat preferred) Inga Shelton, PGY-2 [facility] Anesthesiology Postoperative evaluation and management note* Anesthesia Postprocedure Evaluation - Owen Sanders MD - 11/14/2024 11:36 AM EDT Anesthesia Postoperative Assessment: Vital Signs (most recent): BP 184/115 Pulse 87 Temp 36.2 C (97.2 F) (Temporal) Resp 18 SpO2 100% Anesthesia Post Evaluation Level of consciousness: arousable and awake Post-procedure exam normal. Body temperature, hydration status, PONV and pain evaluated and addressed. Pain management: adequate Hydration status: normal PONV:No nausea/vomiting reported Cardiopulmonary status stable Respiratory status: acceptable Cardiovascular status: acceptable Comments: Patient had delayed emergence. Breathing spontaneously with nasal airway but not responding to verbal commands or touch. Limited response to painful stimuli, as patient furs eyebrows. Horizontal nystagmus noted. After 1-2 hours, patient would open eyes to touch and painful stimulation, still remains drowsy. ANESTHESIA NOTABLE EVENTS: No notable events documented. [employer] Work Phone: [phone] 172-303309-22-2025 Surgical operation note* Anesthesia Postprocedure Evaluation - Owen Sanders MD - 11/14/2024 11:36 AM EDT Anesthesia Postoperative Assessment: Vital Signs (most recent): BP 184/115 Pulse 87 Temp 36.2 C (97.2 F) (Temporal) Resp 18 SpO2 100% Anesthesia Post Evaluation Level of consciousness: arousable and awake Post-procedure exam normal. Body temperature, hydration status, PONV and pain evaluated and addressed. Pain management: adequate Hydration status: normal PONV:No nausea/vomiting reported Cardiopulmonary status stable Respiratory status: acceptable Cardiovascular status: acceptable Comments: Patient had delayed emergence. Breathing spontaneously with nasal airway but not responding to verbal commands or touch. Limited response to painful stimuli, as patient furs eyebrows. Horizontal nystagmus noted. After 1-2 hours, patient would open eyes to touch and painful stimulation, still remains drowsy. ANESTHESIA NOTABLE EVENTS: No notable events documented. * Anesthesia Preprocedure Evaluation - Owen Sanders MD - 11/14/2024 6:57 AM EDT ASA: 3 No history of anesthetic complications Past Medical History and Review of Systems Pulmonary - negative ROS Dental Endo (+) hypothyroidism Neuro/Psych (+) depression, seizures Comment: OCD Autism, unable to get consent from her Cardiovascular - negative ROS (+) Surgical risk: low; Cardiac condition: minor ECG reviewed Comment: Comment: ECHO: 09/2020 CONCLUSION: 1. Normal ventricular function. 2. Moderate concentric hypertrophy. 3. No significant valvular dysfunction. 4. Normal right sided pressures. 5. No evidence of intracardiac shunt by agitated saline study. No previous ECG available GI/Hepatic/Renal (+) renal disease CRI Comment: Urinary retention Heme/Other - negative ROS Other ROS: 54 year old male with PMH significant for autism, seizure disorder, OCD, CKD-stage 3, depression, hypothyroidism, BPH, urinary retention, and history of frequent falls presented to OSH ED s/p fall. He was reported to be walking with a caregiver in the group facility in which he resides when they heard a snap in his leg and he fell to the ground. Unknown headstrike but no LOC reported. He was noted to have obvious deformity to the RLE. Imaging completed at OSH revealed a proximal fibula fx as well as distal tib/fib fxs with small wound over the lateral aspect of the lower leg, concerning for open fracture. Patient was given ancef and RLE was splinted [facility] Physical Exam Airway Mallampati: II TM distance: Adequate Micrognathia: Not present Jaw opening: Adequate Neck flexion: Adequate Dental PE (+) intact Pulmonary - pulmonary exam normal Comment: Chest clear to auscultation bilaterally Cardiovascular - cardiovascular exam normal Comment: RRR with S1S2; no murmurs, gallops, or rubs Neuro - neurological exam normal Comment: Awake, alert, oriented, No motor deficits and sensation grossly intact Plan Anesthesia plan: general; (ETT) Anesthesia risks / alternatives discussed pre-op Questions answered / anesthesia plan accepted Past medical history, surgical history, allergies, and medications reviewed. Pertinent laboratory tests, EKG, imaging, and consults reviewed and I have personally seen and evaluated the patient, repeating narayanan portions of the history and physical examination. Attestation: Anesthesia options were discussed with the patient and/or legal player services representative. The risks, benefitsand alternatives were reviewed. Questions regarding anesthesia were answered. Patient and/or legal player services representative knows such anesthetics and procedures may be performed by Resident physicians, Certified Anesthesiologist Assistants, or Certified Nurse Anesthetists under the supervision of a physician. The patient /or the patient s legal player services representative agree with the plan for anesthesia. Comment: Consent received from mother, Marlin Lei [facility] documented in this [id number] Anesthesiology Postoperative evaluation and management note* Anesthesia Transfer Of Care - Sendy Wayne APRN-CRNA - 11/14/2024 10:56 AM EDT Images from the original note were not included. Patient taken to PACU. Patient was drowsy, comfortable, and stable on arrival. Anesthesia Transfer of Care Note Past Medical History: Medical History[1] Sleep Apnea/Positive STOP-BANG: No Problem List: Problem List[2] Past Surgical History: Review of patient's past surgical history indicates: DENTAL RESTORATIONS (01/25/2021) Procedure: DENTAL RESTORATIONS; Surgeon: Mina Solorzano DDS; Location: [facility] [place]; Service: Dental EXCISION, LESION, ORAL (01/25/2021) Procedure: EXCISION, LESION, ORAL; Surgeon: Mina Solorzano DDS; Location: [facility] Surgery [place]; Service: Dental Allergies: Aripiprazole, Pertussis vaccine, and Pertussis vaccines Basic Operating Room Facts: Surgeon(s): Jose Truong MD Levine, Ari D., MD Shine, Samuel, DO Anesthesiologist: Owen Sanders MD CAA: Crystal Marinelli CAA SUPERVISOR BLUEPRINTING AND PHOTOCOPY: Sendy Wayne APRN-CRNA Anesthesia Student: Moses Major REDUCTION, OPEN, TIBIA, INTRAMEDULLARY MARKOS (Right: Leg Lower) REDUCTION, OPEN, TIBIA (Right: Leg Lower) Intraoperative Events: No acute event ASA: 3 EBL: Not documented Urine 155 mL Lactated Ringers and NaCl 0.9%: Fluid Totals (Filter: LR and NaCl 0.9% Medications Shown) Medication Calculated Total Lactated Ringers 900 mL / 1 bag Cell Saver: Not documented Blood Volume Values: Blood Products None MTP Blood: MTP PRBC: Not documented MTP FFP: Not documented MTP PLT: Not documented MTP Cryo: Not documented MTP Whole Blood: Not documented Current Vasoactive Medications: {Vasoactive Medications: None Lines, Drains, Airways Peripheral IV Access: 11/13/24 0907 20 gauge Anterior;Left Wrist (Active) Site Assessment Dressing intact;Edema;Erythema 11/14/24 0850 Infusion Status Port #1 Other (comment) 11/14/24 0850 Peripheral IV Access: Right Forearm (Active) Site Assessment Other (comment);Edema 11/14/24 0852 Infusion Status Port #1 Patent 11/14/24 0852 Peripheral IV Access: 11/14/24 0849 20 gauge x 1.88 inch Mid;Anterior;Left Forearm (Active) Airway Insertion Details [REMOVED] Advanced Airway: ETT, Oral;Cuffed #8 (Removed) 11/14/24 0754 Pre-Oxygenation/ Induction: Mask Rapid Sequence Induction?: Mask Ventilation: Easy Blade Type: Mac Blade Size: 4 Visualization: Grade 1 Airway Type: ETT, Oral;Cuffed Airway Size: #8 Post Insertion Assessment: Confirmation: Equal bilateral breath sounds, CO2 confirmed # Attempts >1: Special Equipment: Present on Admission?: Previously Removed / Not Present: Removal Reason: Not Removed at Discharge: Removed 11/14/24 1046 Location (cm) 24 11/14/24 0754 Measured from: Upper Lip 11/14/24 0754 Secured via: Taped 11/14/24 0754 Site Assessment WNL 11/14/24 0754 All non-working IVs have been removed: Yes Laboratory Data: CBC (last 3 years, up to 8 values) 11/14/2024 11/13/2024 6:29 AM 9:04 AM WBC 6.7 13.0 RBC 3.33 3.83 Hgb 11.4 12.7 Hct 32.6 38.0 MCV 98 99 RDW 13.2 13.7 Plt 183 157 BMP (last 3 years, up to 8 values) 11/14/2024 11/13/2024 6:29 AM 9:04 AM Na 144 143 K 4.4 4.6 Cl 109 110 CO2 27 24 Gap 12 14 Glu 105 130 BUN 28 30 Cr 1.81 2.03 Ca 8.7 8.9 eGFR 43 38 Basic Metabolic Panel 11/14/2024 11/13/2024 6:29 AM 9:04 AM Na 144 143 K 4.4 4.6 Cl 109 110 CO2 27 24 Gap 12 14 Glu 105 130 BUN 28 30 Cr 1.81 2.03 Ca 8.7 8.9 Mg 2.1 -- PO4 4.0 -- INR (no units) Date Value 11/14/2024 1.20 (H) 11/13/2024 1.12 (H) No result for BNP LFT's (last 3 years, up to 8 values) No lab values to display. Arterial Blood Gases None Hand off Completed: Yes 1. The patient was identified. 2. Pertinent medical history was relayed. 3. A brief discussion was had about any pertinent surgical/ procedural issues. 4. Intraoperative/ anesthetic management issue and concerns were discussed. 5. Plans for the early post-operative period relayed. 6. An opportunity for questions and acknowledgment of understanding of the report was received. FRANC Arroyo [1] Past Medical History: Diagnosis Date Anemia OSH H + P 01/08/2021 CKD (chronic kidney disease), stage I OSH H + P 01/08/2021 Dental caries Moderate intellectual disability OSH H + P 01/08/2021 Tuberous sclerosis (HCC) OSH H + P 01/08/2021 [2] Patient Active Problem List Diagnosis Code Dental caries K02.9 Displ spiral fx shaft of r tibia, init for opn fx type I/2 S82.241B Type I or II open fracture of right tibia and fibula, initial encounter S82.201B, S82.401B [id number] NoteORTHOPAEDIC SURGERY PROGRESS NOTE Trauma Surgery primary ASSESSMENT Alethea Lei is a 54 year old male who sustained GA1, NVI RIGHT tibia shaft fracture now sp RIGHT tibia IMN, RIGHT ankle NEGRA with Dr. Truong on 11/14. Routine postoperative recovery. PLAN: - Activity: NWB RLE in [place] splint at all times - Antibiotics: 24hrs periop Ancef and x10d 100mg doxycycline BID - DVT PPX: Defer choice of chemoppx per primary (recommend at least 81mg ASA BID starting POD1) - Diet: Ok for regular from orthopaedic standpoint - Pain control: Pain control per primary; recommend MM PO/IV - HLIV when tolerating adequate PO - PT/OT on POD1 - IS encouraged - Martini: NDFP - Cultures: N/a - Hb stable, no indication for transfusion Dispo: Per primary pending PT/OT eval SUBJECTIVE: Convalescing in PACU. NAD. OBJECTIVE: Vitals: 11/14/24 0654 BP: 161/81 Pulse: 79 Resp: 18 Temp: 98.5 ???F (36.9 ???C) SpO2: 96% BMP (last 3 years, up to 8 values) 11/14/2024 11/13/2024 6:29 AM 9:04 AM Na 144 143 K 4.4 4.6 Cl 109 110 CO2 27 24 Gap 12 14 Glu 105 130 BUN 28 30 Cr 1.81 2.03 Ca 8.7 8.9 eGFR 43 38 CBC (last 3 years, up to 8 values) 11/14/2024 11/13/2024 6:29 AM 9:04 AM WBC 6.7 13.0 RBC 3.33 3.83 Hgb 11.4 12.7 Hct 32.6 38.0 MCV 98 99 RDW 13.2 13.7 Plt 183 157 Intake/Output Summary (Last 24 hours) at 11/14/2024 1033 Last data filed at 11/14/2024 1010 Gross per 24 hour Intake 1000 ml Output 855 ml Net 145 ml PHYSICAL EXAM: Gen: NAD, A AND O x3 RIGHT Lower Extremity Surgical dressings CDI Pt soundly asleep Toes wwp; 2+ PT and DP pulses Compartments soft, compressible; no pain with passive range of motion -- Jethro Luciano MD Orthopedic Surgery PGY-3 [facility] Orthopaedic Trauma Team B Prefer Spaces 2 Host for correspondence Page or call with urgent matters After 6:00 PM, or on weekends, please page the orthopaedic on-call resident at [phone]. For questions/issues: Patient will be followed by the ORTHO TEAM B. Please page: Team A: (Epic chat preferred) Celso Liu, PGY-2 Javier Serrano (AJ), PGY-2 Team B: (Epic chat preferred) First call: Heriberto Morgan (Alex), PGY-1 Second Call: Jethro Luciano, PGY-3 Elective Team: (Epic chat preferred) Inga Shelton, PGY-2 [facility] Procedure anesthesia Narrative* Procedure NameResponsible AnesthesiologistAnesthesia Start Time Anesthesia Stop TimeREDUCTION, OPEN, TIBIA, INTRAMEDULLARY MARKOS (Right: Leg Lower)Owen Sanders MD11/14/24 [id number]/14/24 1056DateTimeEventComment [id number] Start [id number] Mcyee0778Usbquqaytb TimeoutMember of Anesthesia team and circulating RN verified patient identity, procedure to be performed, and presence of signed surgical consent form prior to induction of anesthesia.0747Preinduction VerifyThe anesthesia team has reviewed the patient's vital signs immediately prior to induction. Sendy Wayne APRN-[id number] [id number] Fwgmapmfai0839Ovgveutqkx Tupspsq9528Euavmhdqk Lcfdg9142Ekvklyjgn Hat4362Xf ExtubationSustained headlift for 5 seconds, extubated awake, pharynx suctioned and clear, patient is maintaining patent airway, transport to PACU/ICU with supplemental O2, and patients dentition in pre-intubating ioymmqmrn4250at stop [id number] HandoffI completed my SBAR handoff to the receiving nurse in the receiving unit.1056AN Stop* NameTotal fentanyl (SUBLIMAZE) injection 50 mcg/mL100 mcgLidocaine (Cardiac) 20 mg/mL IV 60 mgPropofol 10 mg/mL200 mgRocuronium 50 mg/0aM206 mgHYDROmorphone (DILAUDID) injection 1 mg/mL0.4 mgOndansetron 4 mg/2mL4 mgDexamethasone (PF) 10 mg/mL10 mgPhenylephrine 10 mg/mL500 mcgsugammadex (BRIDION) injection 200 mg200 mg ceFAZolin Sodium (ANCEF) 2,000 mg in sterile water for injection 10 mL IV push 2 gLactated Yfyboyj416 mL * Agents Name O2 Air eSevoflurane N2O iSevoflurane iN2O * Blood No blood administrations on file. YsqsWoiaufdEodfetnxyPxdjkbbAddms53/03/21; 1100; Bilateral; Mouth; Surgical - Incision; no dressing /03/21 1100 by Deborah Chapman RNIndwelling Urinary Catheter(pt arrived to OR with martini in place.); martini present upon arrival to OR11/14/24 0836 by Yary Arana RNPeripheral IV Line11/14/24; 0849; 20 gauge x 1.88 inch; Mid, Anterior, Left; Forearm; 5; Yes11/14/24 0849 by Sendy Wayne APRN-KADEHdajo09/22/25; 1026; Right; Leg; Surgical - Incision; incisions closed with suture and covered with betadine soaked adaptic, fluffs, webril, bias.11/14/24 1026 by Yary Arana RNPeripheral IV Line 11/14/24; 1055; 22 gauge; Anterior, Right; Hand11/14/24 1055 by Claudette Reza, [place] Peripheral IV Line11/13/24; 0907; 20 gauge; Anterior, Left; Wrist; 11/14/24; [id number] 0907 by Neelam Bermeo RN11/14/24 1055 by Claudette Reza RN Peripheral IV LineRight; Forearm; 11/14/24; [id number] 0907 by11/14/24 1113 by Claudette Reza, RNAdvanced Airway4; 11/14/24; 0754; ETT, Oral, Cuffed; #8; Equal bilateral breath sounds, CO2 confirmed; 11/14/24; [id number] 0754 by Sendy Wayne APRN-JESSICA11/14/24 1046 by Sendy Wayne APRN-SUPERVISOR [employer] documented in this encounter [id number] Anesthesiology Preoperative evaluation and management note * Anesthesia Preprocedure Evaluation - Owen Sanders MD - 11/14/2024 6:57 AM EDT ASA: 3 No history of anesthetic complications Past Medical History and Review of Systems Pulmonary - negative ROS Dental Endo (+) hypothyroidism Neuro/Psych (+) depression, seizures Comment: OCD Autism, unable to get consent from her Cardiovascular - negative ROS (+) Surgical risk: low; Cardiac condition: minor ECG reviewed Comment: Comment: ECHO: 09/2020 CONCLUSION: 1. Normal ventricular function. 2. Moderate concentric hypertrophy. 3. No significant valvular dysfunction. 4. Normal right sided pressures. 5. No evidence of intracardiac shunt by agitated saline study. No previous ECG available GI/Hepatic/Renal (+) renal disease CRI Comment: Urinary retention Heme/Other - negative ROS Other ROS: 54 year old male with PMH significant for autism, seizure disorder, OCD, CKD-stage 3, depression, hypothyroidism, BPH, urinary retention, and history of frequent falls presented to OSH ED s/p fall. He was reported to be walking with a caregiver in the group facility in which he resides when they heard a snap in his leg and he fell to the ground. Unknown headstrike but no LOC reported. He was noted to have obvious deformity to the RLE. Imaging completed at OSH revealed a proximal fibula fx as well as distal tib/fib fxs with small wound over the lateral aspect of the lower leg, concerning for open fracture. Patient was given ancef and RLE was splinted [facility]. Physical Exam Airway Mallampati: II TM distance: Adequate Micrognathia: Not present Jaw opening: Adequate Neck flexion: Adequate Dental PE (+) intact Pulmonary - pulmonary exam normal Comment: Chest clear to auscultation bilaterally Cardiovascular - cardiovascular exam normal Comment: RRR with S1S2; no murmurs, gallops, or rubs Neuro - neurological exam normal Comment: Awake, alert, oriented, No motor deficits and sensation grossly intact Plan Anesthesia plan: general; (ETT) Anesthesia risks / alternatives discussed pre-op Questions answered / anesthesia plan accepted Past medical history, surgical history, allergies, and medications reviewed. Pertinent laboratory tests, EKG, imaging, and consults reviewed and I have personally seen and evaluated the patient, repeating narayanan portions of the history and physical examination. Attestation: Anesthesia options were discussed with the patient and/or legal player services representative. The risks, benefitsand alternatives were reviewed. Questions regarding anesthesia were answered. Patient and/or legal player services representative knows such anesthetics and procedures may be performed by Resident physicians, Certified Anesthesiologist Assistants, or Certified Nurse Anesthetists under the supervision of a physician. The patient /or the patient s legal player services representative agree with the plan for anesthesia. Comment: Consent received from mother, Marlin Lei [facility] [id number] NoteThis nurse assumed care of this patient 0300. Patient was not in restraints when this nurse assumed care.[facility] HospitalAsetek [id number] NoteSurgical Attestation: I have reviewed the patient's History and Physical Examination. I have personally seen and evaluated the patient, repeating narayanan portions. There is no significant interval change. Surgery is still indicated: Yes Consent reviewed and signed by patient/family: Yes Operative site verified and marked: Yes Orthopaedic Surgery, PGY-2 Inga Shelton MD 11/14/24 12:[address] [facility] NoteSECLUSION/RESTRAINTS NKOY-MS-CNIY EVALUATION NOTE Alethea Lei was evaluated on 11/13/24 at 1745. The patient's immediate situation: Patient pulling medical devices. The patient's reaction to the intervention(s): Patient failed to respond to verbal redirection and Patient did not redirect with verbal cues. The patient's medical and behavioral condition at this time: Patient has poor impulse control and impaired judgement and Patient in critical condition and requires medical devices. Need to continue restraint/seclusion order: Yes Patient needs restraints to protect necessary medical devices.[facility]09-21-2025 History of Present illness Narrative* Claudette Casarez, MEDICAL CASE MANAGER - 11/13/2024 9:46 AM EDT CAT 2, [facility], [facility] EMS Pt transported from [facility] where he was found to have an open Tib/fib fracture. Pt lives in [facility] [phone] d/t intellectual disability. Per EMS, there were caregivers at the OSH and they reported pt has frequent falls. contacted pt's guardian/mother Mila Lei [phone]. Pt's mother stated that she was not able to make it to the ED but that someone from the [facility] planned to present to the ED. Plan: pending documented in this [id number] Hospital Discharge instructions Patient Education 10/12/2024 10:35:27 Benign Prostatic Hyperplasia Benign Prostatic Hyperplasia Benign prostatic hyperplasia (BPH) is an enlarged prostate gland that is caused by the normal agingprocess. The prostate may get bigger as a man gets older. The condition is not caused by cancer. The prostate is a walnut-sized gland that is involved in the production of semen. It is located in front of the rectum and below the bladder. The bladder stores urine. The urethra carries stored urine ou t of the body. An enlarged prostate can press on the urethra. This can make it harder to pass urine. The buildup of urine in the bladder can cause infection. Back pressure and infection may progress to bladder damage and kidney (renal) failure. What are the causes? This condition is part of the normal aging process. However, not all men develop problems from thiscondition. If the prostate enlarges away from the urethra, urine flow will not be blocked. If it enlarges toward the urethra and compresses it, there will be problems passing urine. What increases the risk? This condition is more likely to develop in men older than 50 years. What are the signs or symptoms? Symptoms of this condition include: Getting up often during the night to urinate. Needing to urinate frequently during the day. Difficulty starting urine flow. Decrease in size and strength of your urine stream. Leaking (dribbling) after urinating. Inability to pass urine. This needs immediate treatment. Inability to completely empty your bladder. Pain when you pass urine. This is more common if there is also an infection. Urinary tract infection (UTI). How is this diagnosed? This condition is diagnosed based on your medical history, a physical exam, and your symptoms. Tests will also be done, such as: A post-void bladder scan. This measures any amount of urine that may remain in your bladder after you finish urinating. A digital rectal exam. In a rectal exam, your health care provider checks your prostate by putting a lubricated, gloved finger into your rectum to feel the back of your prostate gland. This exam detects the size of your gland and any abnormal lumps or growths. An exam of your urine (urinalysis). A prostate specific antigen (PSA) screening. This is a blood test used to screen for prostate cancer. An ultrasound. This test uses sound waves to electronically produce a picture of your prostate gland. Your health care provider may refer you to a specialist in kidney and prostate diseases (urologist). How is this treated? Once symptoms begin, your health care provider will monitor your condition (active surveillance or watchful waiting). Treatment for this condition will depend on the severity of your condition. Treatment may include: Observation and yearly exams. This may be the only treatment needed if your condition and symptoms are mild. Medicines to relieve your symptoms, including: ?Medicines to shrink the prostate. ?Medicines to relax the muscle of the prostate. Surgery in severe cases. Surgery may include: ?Prostatectomy. In this procedure, the prostate tissue is removed completely through an open incision or with a laparoscope or robotics. ?Transurethral resection of the prostate (TURP). In this procedure, a tool is inserted through the opening at the tip of the penis (urethra). It is used to cut away tissue of the inner core of the prostate. The pieces are removed through the same opening of the penis. This removes the blockage. ?Transurethral incision (TUIP). In this procedure, small cuts are made in the prostate. This lessens the prostate's pressure on the urethra. ?Transurethral microwave thermotherapy (TUMT). This procedure uses microwaves to create heat. The heat destroys and removes a small amount of prostate tissue. ?Transurethral needle ablation (TUNA). This procedure uses radio frequencies to destroy and remove a small amount of prostate tissue. ?Interstitial laser coagulation (ILC). This procedure uses a laser to destroy and remove a small amount of prostate tissue. ?Transurethral electrovaporization (TUVP). This procedure uses electrodes to destroy and remove a small amount of prostate tissue. ?Prostatic urethral lift. This procedure inserts an implant to push the lobes of the prostate away from the urethra. Follow these instructions at home: Take oyva-utk-kfwqptd and prescription medicines only as told by your health care provider. Monitor your symptoms for any changes. Contact your health care provider with any changes. Avoid drinking large amounts of liquid before going to bed or out in public. Avoid or reduce how much caffeine or alcohol you drink. Give yourself time when you urinate. Keep all follow-up visits. This is important. Contact a health care provider if: You have unexplained back pain. Your symptoms do not get better with treatment. You develop side effects from the medicine you are taking. Your urine becomes very dark or has a bad smell. Your lower abdomen becomes distended and you have trouble passing urine. Get help right away if: You have a fever or chills. You suddenly cannot urinate. You feel light-headed or very dizzy, or you faint. There are large amounts of blood or clots in your urine. Your urinary problems become hard to manage. You develop moderate to severe low back or flank pain. The flank is the side of your body between the ribs and the hip. These symptoms may be an emergency. Get help right away. Call 911. Do not wait to see if the symptoms will go away. Do not drive yourself to the hospital. Summary Benign prostatic hyperplasia (BPH) is an enlarged prostate that is caused by the normal aging process. It is not caused by cancer. An enlarged prostate can press on the urethra. This can make it hard to pass urine. This condition is more likely to develop in men older than 50 years. Get help right away if you suddenly cannot urinate. This information is not intended to replace advice given to you by your health care provider. Make sure you discuss any questions you have with your health care provider. Document Revised: 08/28/2021 Document Reviewed: 08/28/2021 [employer] Patient Education 2023 [email or web address]. Follow Up Care 09/30/2024 11:22:00 With:HERBER GAGNON MD, JEOVANY Address: When: Unknown [facility] 08-20-2025 NotePatient Education Urology Benign Prostatic Hyperplasia Benign prostatic hyperplasia (BPH) is an enlarged prostate gland that is caused by the normal agingprocess. The prostate may get bigger as a man gets older. The condition is not caused by cancer. The prostate is a walnut-sized gland that is involved in the production of semen. It is located in front of the rectum and below the bladder. The bladder stores urine. The urethra carries stored urine ou t of the body. An enlarged prostate can press on the urethra. This can make it harder to pass urine. The buildup of urine in the bladder can cause infection. Back pressure and infection may progress to bladder damage and kidney (renal) failure. What are the causes? This condition is part of the normal aging process. However, not all men develop problems from thiscondition. If the prostate enlarges away from the urethra, urine flow will not be blocked. If it enlarges toward the urethra and compresses it, there will be problems passing urine. What increases the risk? This condition is more likely to develop in men older than 50 years. What are the signs or symptoms? Symptoms of this condition include: ??? Getting up often during the night to urinate. ??? Needing to urinate frequently during the day. ??? Difficulty starting urine flow. ??? Decrease in size and strength of your urine stream. ??? Leaking (dribbling) after urinating. ??? Inability to pass urine. This needs immediate treatment. ??? Inability to completely empty your bladder. ??? Pain when you pass urine. This is more common if there is also an infection. ??? Urinary tract infection (UTI). How is this diagnosed? This condition is diagnosed based on your medical history, a physical exam, and your symptoms. Tests will also be done, such as: ??? A post-void bladder scan. This measures any amount of urine that may remain in your bladder after you finish urinating. ??? A digital rectal exam. In a rectal exam, your health care provider checks your prostate by putting a lubricated, gloved finger into your rectum to feel the back of your prostate gland. This exam detects the size of your gland and any abnormal lumps or growths. ??? An exam of your urine (urinalysis). ??? A prostate specific antigen (PSA) screening. This is a blood test used to screen for prostate cancer. ??? An ultrasound. This test uses sound waves to electronically produce a picture of your prostate gland. Your health care provider may refer you to a specialist in kidney and prostate diseases (urologist). How is this treated? Once symptoms begin, your health care provider will monitor your condition (active surveillance or watchful waiting). Treatment for this condition will depend on the severity of your condition. Treatment may include: ??? Observation and yearly exams. This may be the only treatment needed if your condition and symptoms are mild. ??? Medicines to relieve your symptoms, including: ? Medicines to shrink the prostate. ? Medicines to relax the muscle of the prostate. ??? Surgery in severe cases. Surgery may include: ? Prostatectomy. In this procedure, the prostate tissue is removed completely through an open incision or with a laparoscope or robotics. ? Transurethral resection of the prostate (TURP). In this procedure, a tool is inserted through theopening at the tip of the penis (urethra). It is used to cut away tissue of the inner core of the prostate. The pieces are removed through the same opening of the penis. This removes the blockage. ? Transurethral incision (TUIP). In this procedure, small cuts are made in the prostate. This lessens the prostate's pressure on the urethra. ? Transurethral microwave thermotherapy (TUMT). This procedure uses microwaves to create heat. The heat destroys and removes a small amount of prostate tissue. ? Transurethral needle ablation (TUNA). This procedure uses radio frequencies to destroy and removea small amount of prostate tissue. ? Interstitial laser coagulation (ILC). This procedure uses a laser to destroy and remove a small amount of prostate tissue. ? Transurethral electrovaporization (TUVP). This procedure uses electrodes to destroy and remove a small amount of prostate tissue. ? Prostatic urethral lift. This procedure inserts an implant to push the lobes of the prostate awayfrom the urethra. Follow these instructions at home: ??? Take xjzw-olv-giyzcgb and prescription medicines only as told by your health care provider. ??? Monitor your symptoms for any changes. Contact your health care provider with any changes. ??? Avoid drinking large amounts of liquid before going to bed or out in public. ??? Avoid or reduce how much caffeine or alcohol you drink. ??? Give yourself time when you urinate. ??? Keep all follow-up visits. This is important. Contact a health care provider if: ??? You have unexplained back pain. ??? Your symptoms do not get (more content not included)...[facility]08-12-2025 NoteProgress Note-Physician Patient: ALETHEA LEI Age: 54 years Sex: Male : 1970 Associated Diagnoses: None Author: Gm Wakefield MD Postoperative Information Postoperative disposition: Postoperative disposition: To PACU. Optimetrix number: Optimetrix number [id number]. Anesthetic utilized: General. Health Status Allergies: Allergic Reactions (Selected) Severity Not Documented Pertussis vaccines- No reactions were documented. Physical Examination VS/Measurements Pain Assessment: Controlled. General: Awake, Appropriate. Respiratory: Adequate air exchange. Cardiovascular: Stable. Neurological Assessment Anesthetic outcome No anesthetic complications noted. Adequate pain relief. no nausea. Review / Management Condition: Stable. Plan Transfer/Discharge: Transfer/Discharge Discharge when meets criteria.[facility] AndersonComment on above:Result Comment: Electronically Signed By: Gm Wakefield MD\.br\Date and Time Signed: 10/04/24 16:43 [id number] Note Progress Note-Physician Patient: ALETHEA LEI Age: 54 years Sex: Male : 1970 Associated Diagnoses: None Author: Gm Wakefield MD Preoperative Information Anesthesia Preop Info: Time patient last ate or drank 09/29/2024 00:00:00. Anesthesia history: Patient history: None. Family history+: None. Informed consent: Signed by family/legal guardian. Including risks, benefits, and alternatives related to the: Anesthetic plan, Postoperative pain management plan. Re-evaluation prior to induction: Gm Wakefield MD. Review of Systems Eye Ear/Nose/Mouth/Throat Respiratory: No shortness of breath, No cough. Cardiovascular: Negative, No chest pain. Gastrointestinal: No heartburn. Musculoskeletal Neurologic Health Status Allergies: Allergic Reactions (Selected) Severity Not Documented Pertussis vaccines- No reactions were documented., Allergies (1) Active Severity Reaction pertussis vaccines None Documented Current medications: (Selected) Prescriptions Prescribed Flomax 0.4 mg Cap: 0.4 mg = 1 cap(s), Oral, Daily, # 30 cap(s), Refills(s) 0 haloperidol 5 mg Tab: 10 mg = 2 tab(s), Oral, qPM, # 8 tab(s), Refills(s) 0 haloperidol 5 mg Tab: 15 mg = 3 tab(s), Oral, BID, # 12 tab(s), Refills(s) 0 Documented Medications Documented Daily Feli oral tablet: 1 tab(s), Oral, Daily, Refill(s) 0 Nebivolol 5 mg oral tablet: 5 mg = 1 tab(s), Oral, Daily, Refills(s) 0 Oyster Shell Calcium with Vitamin D 500 mg-200 intl units oral tablet: 1 tab(s), Oral, BID, Refill(s) 0 Senna-Time 8.6 mg oral tablet: 8.6 mg = 1 tab(s), Oral, Once a day (at bedtime), Refills(s) 0 amLODIPine 10 mg Tab: 10 mg = 1 tab(s), Oral, Daily, Refills(s) 0 atorvastatin 40 mg Tab: 40 mg = 1 tab(s), Oral, Bedtime, Refills(s) 0 benztropine 1 mg Tab: 1 mg = 1 tab(s), Oral, TID, Refills(s) 0 cloNIDine 0.2 mg Tab: 0.2 mg = 1 tab(s), Oral, TID, Refills(s) 0 levetiracetam 500 mg Tab: 500 mg = 1 tab(s), Oral, BID, Refills(s) 0 levothyroxine 137 mcg (0.137 mg) Tab: 137 mcg = 1 tab(s), Oral, Daily, Refills(s) 0 oxcarbazepine 600 mg Tab: 600 mg = 1 tab(s), Oral, BID, Refills(s) 0 paroxetine 40 mg Tab: 60 mg = 1.5 tab(s), Oral, Bedtime, Refills(s) 0, Home Medications (15) Active amLODIPine 10 mg Tab 10 mg = 1 tab(s), Oral, Daily atorvastatin 40 mg Tab 40 mg = 1 tab(s), Oral, Bedtime benztropine 1 mg Tab 1 mg = 1 tab(s), Oral, TID cloNIDine 0.2 mg Tab 0.2 mg = 1 tab(s), Oral, TID Daily Feli oral tablet 1 tab(s), Oral, Daily Flomax 0.4 mg Cap 0.4 mg = 1 cap(s), Oral, Daily haloperidol 5 mg Tab 15 mg = 3 tab(s), Oral, BID haloperidol 5 mg Tab 10 mg = 2 tab(s), Oral, qPM levetiracetam 500 mg Tab 500 mg = 1 tab(s), Oral, BID levothyroxine 137 mcg (0.137 mg) Tab 137 mcg = 1 tab(s), Oral, Daily Nebivolol 5 mg oral tablet 5 mg = 1 tab(s), Oral, Daily oxcarbazepine 600 mg Tab 600 mg = 1 tab(s), Oral, BID Oyster Shell Calcium with Vitamin D 500 mg-200 intl units oral tablet 1 tab(s), Oral, BID paroxetine 40 mg Tab 60 mg = 1.5 tab(s), Oral, Bedtime Senna-Time 8.6 mg oral tablet 8.6 mg = 1 tab(s), Oral, Once a day (at bedtime) , No qualifying data available Problem list: All Problems Acute kidney injury / SNOMED CT 9727373821 / Confirmed ADHD / SNOMED CT 7612424593 / Confirmed Autistic disorder / SNOMED CT 8215161307 / Confirmed Chronic kidney disease stage 3 / SNOMED CT 3642192956 / Confirmed Depression / SNOMED CT 61365717 / Confirmed 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 Resolved due to patient discharge., Active Problems (13) Acute kidney injury ADHD Autistic disorder Chronic kidney disease stage 3 Depression Frontal lobe syndrome HTN (hypertension) Hypothyroidism Impulse control disorder OCD (obsessive compulsive disorder) Recurrent falls Seizure disorder Tuberous sclerosis Histories Past Medical History: No active or resolved past medical history items have been selected or recorded. Family History: Unable to obtain. Procedure history: TURP - Transurethral resection of prostate (473071597) on 09/29/2024 at 54 Years. Open reduction and internal fixation of fracture (453090110). Ankle fracture (148115786). Ankle fracture (009685164). Social History Social & Psychosocial Habits Tobacco 09/07/2024 Tobacco Use: Never (less than 100 in l Smokeless tobacco use: Never . Physical Examination No qualifying data availa (more content not included)...[facility]:Result Comment: Electronically Signed By: Ashu ACKERMAN, Gm Toro\.br\Date and Time Signed: 10/04/24 16:43 [id number] NoteProgress Note-Physician Assessment/Plan 1. BPH with urinary obstruction (N40.1: [...] IP Consult New/Estab Pt Moderate 60 Min 37430 2. S/P TURP (Z90.79: Acquired absence of other genital organ(s)) See above 3. Severe intellectual disabilities (F72: Severe intellectual disabilities) Per mother: Functional age of 4-5 yr at best, orientation to her and his name only + autism disorder -Chronic haloperidol, benztropine, paroxetine -Lives at [facility] -Supportive care 4. HTN (hypertension) (I10: Essential [...] deep vein thrombosis (DVT) prophylaxis (Z79.899: Other long-term (current) drug therapy) Defer to urology -SCDs, chin ji, early ambulation Orders: Basic Metabolic Panel Communication Order Physician to Nursing eGFR Hemoglobin and Hematocrit Pad Siderails -Dx and POC discussed w/ patient, nursing staff and CRM. -Disposition: June d/c from medical standpoint. This report was transcribed using voice recognition software. Every effort was made to ensure accuracy, however, inadvertently computerized appliance servicer mistakes may be present. Subjective No acute [...] Low (09/30/24 06:44:00) Hct: 33.6 % Low (09/30/24 06:44:00) Glucose Lvl: 91 mg/dL (09/30/24 06:44:00) BUN: 19 mg/dL (09/30/24 06:44:00) Creatinine: 1.5 mg/dL High (09/30/24 06:44:00) eGFR: 54 mL/min/1.73 m2 Low (09/30/24 06:44:00) BUN/Creat Ratio: 13 (09/30/24 06:44:00) Sodium Lvl: 141 mmol/L (09/30/24 06:44:00) Potassium Lvl: 4.2 mmol/L (09/30/24 06:44:00) Chloride: 111 mmol/L (09/30/24 06:44:00) CO2: 22 mmol/L (09/30/24 06:44:00) AGAP: 12 mEq/L (09/30/24 06:44:00) Calcium Lvl: 8.7 mg/dL Low (09/30/24 06:44:00) Diagnostic Results No qualifying data available. [...] atorvastatin 40 mg T (more content not included)...[facility] Comment on above:Result Comment: Electronically Signed By: Chacha DIAZ\.br\Date and Time Signed: 09/30/24 12:33 EDT\.br\Electronically Co-Signed By: Evelio Castaneda DO.br\Date and Time Co-Signed: 09/30/24 17:52 EDT 09-29-2024 NoteConsultation Note Chief Complaint BPH with LUTS Reason for Consultation - Medical Mgt. History of Present Illness 54-year-old male with PMH of: Intellectual disabilities w/ functional age of 4???5-year-old, HTN, HLD, CKD, seizure disorder, hypothyroidism, tuberous sclerosis, BPH. - Patient presented to [facility] to the care of Dr. Henson and underwent TURP procedure on 09/29/2024. - Consult to hospitalist team for medical management. Review of Systems Unable to complete due to intellectual disabilities Physical Exam Vitals & Measurements T: 36.7 ???C(Temporal Artery) TMIN: 36.3 ???C(Temporal Artery) TMAX: 36.7 ???C(Temporal Artery) HR:68(Monitored) RR: 18 BP: 131/82 SpO2: 100% General: [...] [facility] -Supportive care 4. HTN (hypertension) (I10: Essential [...] deep vein thrombosis (DVT) prophylaxis (Z79.899: Other long-term (current) drug therapy) Defer to urology -JOYCEs, chin ji, early ambulation Orders: Communication Order Physician to Nursing Pad Siderails -Dx and POC discussed w/ patient, nursing staff and CRM. This report was transcribed using voice recognition software. Every effort was made to ensure accuracy, however, inadvertently computerized appliance servicer mistakes may be present. Attestation Case reviewed/discussed [...] vaccines Social History Tobacco (more content not included)...[facility] AndersonComment on above:Result Comment: Electronically Signed By: Chacha DIAZ\.br\Date and Time Signed: 09/29/24 16:11 EDT\.br\Electronically Co-Signed By: Chacha DIAZ\.br\Date and Time Co-Signed: 09/29/24 16:11 EDT\.br\Electronically Co-Signed By: Evelio Castaneda DO.br\Date and Time Co-Signed: 09/29/24 19:07 [id number] NotePatient Education Urology Acute Urinary Retention, Male Acute urinary retention is a condition in which a person is unable to pass urine or can only pass alittle urine. This condition can happen suddenly and [...] As men age, their prostate may become largerand may start to press or squeeze on [...] trauma or because he does not want touse the bathroom. What are the signs or [...] these instructions at home: Medicines ??? Take tevf-wgm-nhfofte and prescription medicines only as told by your health care provider. Avoid certain medicines, such as decongestants, antihistamines, and some prescription medicines. Do nottake any medicine unless your health care provider approves. ??? If you were prescribed an antibiotic medicine, take it as told by your health care provider. Donot stop using the antibiotic even if you [...] provider. Document Revised: 10/31/2020 Document Reviewed: 10/31/2020 [employer] Patient Education ? 2023 [email or web address].[facility] 08-19-2024 Hospital Discharge instructions Additional Instructions [facility] to manage care: - Full code - BMP in 3-5 days, results to PCP - Maintain indwelling martini catheter to drainage or leg bag, routine care per protocol - follow-up with Urology as scheduled - Turn and reposition every 2 hours and as needed - Offload heels q2h - Maintain seizure precautions per facility protocol, hx of seizures -[facility] Work Phone: 1(210) 917-630206-25-2025 Evaluation note* Diagnosis Onset Date Resolution Status Admit Date SHANON (acute kidney injury) acuteAugust 17, 2024 1:19amChronic kidney diseaseacuteJun2024 1:19am CystitisacuteJun2024 1:19amFrontal lobe syndromeacuteAugust 17, 2024 1:19amHyperkalemiaacuteAugust 17, 2024 1:19amHypertensionacuteJun2024 1:19amHypothyroidismacuteJun2024 1:19amMetabolic acidosisacuteAugust 17, 2024 1:19amSeizure disorderacuteJun2024 1:19amTuberous sclerosisacute August 17, 2024 1:19am [facility] Work Phone: 1(999) 643-862206-25-2025 Evaluation note* Diagnosis Onset Date Resolution Status Admit Date SHANON (acute kidney injury) resolvedAugust 17, 2024 1:19amChronic kidney diseaseresolvedJune 2024 1:19amCystitisresolvedJun2024 1: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 Glenn Brown DPM documented in this encounterKindred [id number] History of Present illness Narrative* Glenn Brown [...] weeks Glenn Brown DPM documented in this encounterKindred [id number] History of Present illness Narrative* Glenn Brown [...] boot Glenn Brown DPM documented in this encounterKindred HospitalUrvgluossd95-41-7017 NoteHNO ID: [id number] Author: SUMEET CALI MD Service: ? Author [...] visit. Either the patient or their legal player services representative has been informed of the risks [...] last seen in June [address] Ambrocio Romero at that time was continued on [...] evening, and 3 tablets at bedtime 0 ohlwlzg-yzjduivqd-vdxdgxa D3 (OYSTER SHELL CALCIUM-VITAMIN D) 500 mg(1,250mg) [...] MG TAB ta (more content not included)...[facility] 05-27-2024 History of Present illness Narrative* Glenn Brown, DPM - 05/27/2024 9:40 AM EDT Patient: Alethea Lei : 1970 PCP: Go Foster MD SUBJECTIVE Patient presents today post today's history of some pain with ambulation and swelling to the dorsumof left foot but has poor historian and caregiver and patient is complaining of pain from time to time but has poor historian and is resident at [facility]. He had recent CT scan at [facility] and presents today for follow-up. Allergies: [...] report today Pt dispensed pneumatic CAM walker (L4261) today to maintain 90 degree foot to [...] sprain Glenn Brown DPM documented in this encounterKindred [id number] History of Present illness Narrative* Glenn Brown [...] future. Glenn Brown DPM documented in this encounterKindred HospitalMgzvmslesc12-19-0286 History of Present illness Narrative* Glenn Brown, DPM - 04/15/2024 9:30 AM EST Patient: [...] of Matias Brown DPM documented in this encounterKindred HospitalCfotjlwegm21-03-1950 Evaluation + Plan note Diagnostic Tests Pending * HgbA1c 08/19/23 * T3 Free 08/19/23 * Keppra Lvl 08/19/23 * Lamotrigine Level 08/19/23 [facility]01-03-2024 Evaluation + Plan note Diagnostic Tests Pending * T3 Free 02/25/23 [facility]09-20-2023 Evaluation + Plan note Diagnostic Tests Pending * PSA Screen, Total 11/12/22 [facility]11-14-2022 Evaluation note* Encounter Date Diagnosis Assessment Notes Treatment Notes Treatment Clinical Notes Dec, Displaced fracture o f lateral malleolus of right fibula, subsequent encounter for closed fracture with routine healing (ICD-10 - S82.61XD) Alethea is here today for follow-up about 12 weeks s/p right ankle ORIF. He is doing well. He is currently residing at [facility]. There is no complaints overall. Ankle [...] time with no restrictions. Patient voiced understanding. Dec,ther fracture of lower end of left tibia, subsequent encounter for closed fracture with routine healing (ICD-10 - S82.392D) Dec,ther specified postprocedural states (ICD-10 - Z98.890) [employer] Other 10-12-2022 History of Present illness Narrative* Mina Solorzano DDS - 12/04/2021 11:03 AM EDT ----- Thursday, December 04, 2021 at 11:22:04 AM ----- ----- Provider: [id number] - Brandy Grahameni -- Clinic: [place] ----- [facility], Pt is ready for tx. Pt presented with caries Radiograph taken today: none Discussed the medical necessity of the problem with the pt. Instructions given to pt. Caregiver understood the situation and is okay with medications for today. Pt will come back shouldthings get worse. Guardianship: PARENTS - Nabila Lei (Kathy) [address] [place] [address] / Email: [email or web address] Communicated with caregiver that the pt was placed on the OR list and we will call with appt. Limited exam completed by Dr. Noel STEPHENS. OR ----- Signed on Saturday, December 04, 2021 at 11:51:43 AM ----- ----- Provider: [id number] Tucker Myers DDS -- Clinic: [place] ----- documented in this [id number] Evaluation note* Encounter Date Diagnosis Assessment Notes Treatment Notes Treatment Clinical Notes Oct, Displaced fracture o f lateral malleolus of right fibula, subsequent encounter for closed fracture with routine healing (ICD-10 - S82.61XD) Alethea is here today for first follow-up 8 weeks s/p right ankle ORIF. He is doing well. He is currently residing at [facility]. There is no complaints overall. His incision is benign and sutures removed today. X-rays were reviewed with patient as well as staff at bedside. Okay to start weightbearing inside the boot as tolerated. Do this over the next 4 weeks. After 4 weeks okay to remove boot as tolerated. Okay to remove boot for hygiene purposes. Plan follow- up in 6 weeks for repeat x-rays. The [...] out of CAM boot in 4 weeks Oct,ther fracture of lower end of left tibia, subsequent encounter for closed fracture with routine healing (ICD-10 - S82.392D) [employer] [facility] Other 08-24-2022 Evaluation note* Encounter Date Diagnosis Assessment Notes Treatment Notes Treatment Clinical Notes Sep, Displaced fracture o f lateral malleolus of right fibula, subsequent encounter for closed fracture with routine healing (ICD-10 - S82.61XD) Alethea is here today for first follow-up 3 weeks s/p right ankle ORIF. He is doing well. He is currently residing at [facility]. There is no complaints overall. His incision is benign and sutures removed today. X-rays were reviewed with patient as well as staff at bedside. We will plan forreturn to tall walking boot with nonweightbearing. Okay [...] Patient to go into the CAM walker boottoday, may remove for bathing only. May work on gentle ROM while boot is off. Continue NWB. May discontinue aspirin as previously prescribed. Call with questions/concerns. Sep,ther fracture of lower end of left tibia, subsequent encounter for closed fracture with routine healing (ICD-10 - S82.392D) Sep,therSee orders for this visit as documented in the electronic medical record. [employer] Other 08-24-2022 NoteCast material is in place limiting evaluation. Hardware fixation involving the distal fibula [employer]Norted[employer]ristine Other 07-27-2022 NotePROCEDURE: XR TIB_FIB RT 2V [...] Electronically authenticated by: SANDY DÍAZ Date: 2021-09-18 17:14[facility]07-27-2022 NotePROCEDURE: XR ANKLE RT MIN 3 VIEWS [...] Electronically authenticated by: SANDY DÍAZ Date: 2021-09-18 16:44[facility]07-27-2022 NotePROCEDURE: XR ANKLE LT MIN 3 V [...] Electronically authenticated by: SANDY DÍAZ Date: 2021-09-18 15:33[facility]06-22-2022 Evaluation note* Encounter Date Diagnosis Assessment Notes Treatment Notes Treatment Clinical Notes Jul, Pulmonary cavitary lesion (ICD-1 0 - J98.4) Jul,Tuberous sclerosis (ICD-10 - Q85.1) [facility] [employer] Other Evaluation + Plan note Future Appointments Appointment Date:09/07/2024 02:10:00 PM Scheduled Provider:Ashanti Gaspar Location:[facility] Appointment Type:URO New Patient [facility] Evaluation + Plan note Future Appointments Appointment Date:09/28/2024 12:30:00 PM Scheduled Provider:Radha Kirkland PA-C Location:[facility] Appointment Type:URO Office Visit [facility] Evaluation + Plan note Future Appointments Appointment Date:01/12/2025 11:15:00 AM Scheduled Provider:HERBER GAGNON MD Location: Appointment Type:URO Office Visit Diagnostic Tests Pending * Basic Metabolic Panel 10/12/24 [facility] Evghcwpahl noteNo assessment information [facility] Work Phone: Evalurqfme noteNo InformationNortFulton County Medical Center [employer] Other Evaluation note* Diagnosis Seizure disorder (CMS/HCC)- [...] Diagnosis Lisfranc dislocation, left, initial encounter- Primary Pain due to onychomycosis of toenails of both feet documented [facility] encounter [facility]* Diagnosis Displ spiral fx shaft of r tibia, init for opn fx type I/2- Primary [facility]* Diagnosis Displ spiral fx shaft of r tibia, init for opn fx type I/2- Primary [facility]* Diagnosis Closed displaced fracture of right clavicle, unspecified part of clavicle, initial encounter- Primary [facility]* Diagnosis Displ spiral fx shaft of r tibia, init for opn fx type I/2- Primary [facility]* Diagnosis Displ spiral fx shaft of r tibia, init for opn fx type I/2 documented in this encounter [facility] general Narrative - Reported* Type Description Date Medical History Unspecified intellectual disabil ities Medical HistoryautismMedical HistoryADHDMedical HistorySeizure DisorderMedical Historytuberous Sclerosis [employer] [facility] Other History general Narrative - Reported* Type Description Date Medical History Unspecified intellectual disabil ities Medical HistoryautismMedical HistoryADHDMedical HistorySeizure DisorderMedical Historytuberous SclerosisSurgical HistoryORIF RT lateral malleolus fx09/24/21 Hospitalization Historysee above [facility] Other History of Present illness Narrative* Glenn Brown DPM - 11/03/2024 11:50 AM EDT Patient: Alethea Lei : 1970 PCP: Go Foster MD SUBJECTIVE Patient presents today for follow up of left Lisfranc fracture and has been in normal shoe gear with Positive improvement. Patient rates pain a 0-1/10. Patient denies any pain with weight-bearing Patient has mental health issues with issues with good communication as far as pain to his left foot and presents today with caregiver Patient presents today with a CC of elongated, thick nails. Pt states nails have been elongated and thick for many years and cause pain with ambulation in shoegear. Pt has tried previous treatment with minimal relief. Pt presents today for nail care and treatment. Allergies: Allergies Allergen Reactions Pertussis Vaccines Unknown Past Medical History: Past Medical History: Diagnosis Date ADHD (attention deficit hyperactivity disorder) Alkaline phosphatase elevation Back spasm Behavior disturbance Disturbance of conduct Frontal lobe syndrome History of medical problems frontal infarct age indeterminate Hypertension Hypothyroidism Impulse control disorder Mental disability Mental Retardation Moderate intellectual disability Myofascial pain syndrome Abdominal Wall or Pelvic Floor OCD (obsessive compulsive disorder) Organic mood disorder Organic psychosis Osteoporosis Pervasive developmental disorder (HCC) Renal failure Seizure disorder (HCC) Tuberous sclerosis (HCC) Medications: Current Outpatient Medications: acetaminophen (Tylenol) 325 [...] stool on antibiotic OBJECTIVE LE EXAM: DERM: elongated thick yellow crumbly nails digits 1-10 with diminished hair growth VASC: Palpable pedal pulses bilaterally NEURO: Gross sensation intact to bilateral feet ORTHO: negative palpation left forefoot with +5/5 dorsiflexion plantar flexion inversion eversion of left foot with minimal pain on palpation to the left Lisfranc joint Negative pain on palpation left cuboid Positive pain on palpation to toenails of the left 1,2,3,4,5 toes and right 1,2,3,4,5 toes MRIscan results bone marrow edema present to [...] ASSESSMENT 1. Lisfranc dislocation, left, initial encounter 2. Pain due to onychomycosis of toenails of both feet PLAN Patient to continue with oral anti - inflammatories as needed for pain and recommended OTC medications such as tylenol or Ibuprofen Patient to continue with normal gear. Discussed proper foot care with patient today. Debride nails in length and thickness digits 1 through 10 Glenn Brown DPM documented in this encounterColumbia Regional Hospitalspital course Narrative No data available for this section [facility] Discharge instructions No data available for this section [facility]Progress note No data available for this section [facility] HospitalReason for referral (narrative)No reason for referral information availableMet[facility] Work Phone: Reason for visit Narrative* Auth/Cert (Routine) SpecialtyDiagnoses / ProceduresReferred By ContactReferred To ContactEmergency Medicine Diagnoses Dental caries, unspecified Displaced spiral fracture of shaft of right tibia, initial encounter for open fracture type I or II Open Tib fib fracture from fall Procedures NA [place] [employer] [place] [place] [address] Phone: tel: [place] [employer] [place] [address] Phone: tel: Referral IDStatusReasonStart DateExpiration DateVisits RequestedVisits [id number] [facility] for visit Narrative* Diagnostic X-Ray (Routine) - Closed SpecialtyDiagnoses / ProceduresReferred By ContactReferred To ContactRadiology Diagnoses Displ spiral fx shaft of r tibia, init for opn fx type I/2 Procedures XR TIBIA RIGHT 2 VIEWS Sarah Brown, [address] [place] [address] Phone: tel: fax: [facility] [address] [facility] [place] [id number] Phone: tel: Referral IDSPatty DateExpiration DateVisits RequestedVisits [id number] [facility] Summary Purpose Family History No Family History Records Found Relationship Condition Age at Onset Recorded Date/T adriel Not Specified Hypertension Unknown fatherHypertensionUnknown Relationship Condition Age at Onset Recorded Date/T adriel mother Hypertension Unknown fatherHypertensionUnknownbrotherHypertensionUnknown Advance Directives No Advanced Directives Records Found Date ActivatedDate InactivatedComments11/13/2024 3:19 PM11/18/2024 11:15 PM QuestionAnswerCommentsDocumentation of decision process for this code status:* Patient and surrogate unable or unavailable to discuss. There is no previous documentation of code status. Defaulting to Full Code Advance Directive Response Recorded Date/ Time Advance Directives No October 22, 2016 9:09am Advance Directive Response Recorded Date/ Time Advance Directives No October 22, 2016 8:09am Date ActivatedDate InactivatedComments11/13/2024 3:19 PMQuestionAnswerComments Documentation of decision process for this code status:* Patient and surrogate unable or unavailable to discuss. There is no previous documentation of code s tatus. Defaulting to Full Code Date ActivatedDate InactivatedComments11/13/2024 3:19 PMDate ActivatedDate InactivatedComments11/13/2024 3:19 PM11/18/2024 11:15 PM Chief Complaint and Reason for Visit Chief [...] section and content) DATE CREATED AUTHOR 08/19/2017 [facility] DATE CREATED AUTHOR AUTHOR'S ORGANIZ ATION 07/30/2018 [facility] DATE CREATED AUTHOR AUTHOR'S ORGANIZ ATION 06/01/2022 [facility] DATE CREATED AUTHOR AUTHOR'S ORGANIZ ATION 08/21/2023 [facility] DATE CREATED AUTHOR AUTHOR'S ORGANIZ ATION 08/22/2023 [facility] DATE CREATED AUTHOR AUTHOR'S ORGANIZ ATION 08/28/2023 [facility] DATE CREATED AUTHOR AUTHOR'S ORGANIZ ATION 09/03/2024 [facility] DATE CREATED AUTHOR AUTHOR'S ORGANIZ ATION 09/28/2024 [facility] DATE CREATED AUTHOR AUTHOR'S ORGANIZ ATION 10/02/2024 [facility] DATE CREATED AUTHOR AUTHOR'S ORGANIZ ATION 10/07/2024 [facility] DATE CREATED AUTHOR AUTHOR'S ORGANIZ ATION 10/14/2024 [facility] DATE CREATED AUTHOR AUTHOR'S ORGANIZ ATION 11/05/2024 [facility] DATE CREATED AUTHOR AUTHOR'S ORGANIZ ATION 11/13/2024 [facility] DATE CREATED AUTHOR AUTHOR'S ORGANIZ ATION 12/13/2024 [facility] DATE CREATED AUTHOR AUTHOR'S ORGANIZ ATION 12/21/2024 [facility] DATE CREATED AUTHOR AUTHOR'S ORGANIZ ATION 12/31/2024 [facility] [employer] [facility] [facility] DATE CREATED AUTHOR AUTHOR'S ORGANIZ ATION 01/01/2025 [facility] REASON FOR VISIT (unrecogniz ed section and content) ReasonCommentsSeizuresAltered Mental StatusReasonCommentsIngrown ToenailRT grt nail ingrownReasonCommentsFoot PainLeft foot swellingReasonCommentsFollow-upCt scanReasonCommentsFollow-upLt lis francReasonCommentsFollow-upLT LIS FRANCReason CommentsToenail CareReasonCommentsTrauma/complex Medical SituationReasonComments Post-op Follow-upReasonCommentsNew patient, to establish relationshipReason CommentsPost-op Follow-upPost Op CheckRt tibia - DOS: 11/14Pts caregiver states that pt is not complaining about pain at this time. Feels physical therapy is going well and would like to discuss how much longer pt needs to be in CAM walker Care Teams (unrecognized sec tion and content) Team Status: Inactive Member Role Status Dates Go Foster , DO Primary Care Provider Active Verna Martinez ProviderActive Team Status: Active Member Role Status Dates Go Foster , DO Primary Care Provider Active Team Status: Inactive Member Role Status Dates Go Foster , DO Primary Care Provider Active Nallely Parada MDAttmanas ProviderActiveTeam MemberRelationshipSpecialtyStart DateEnd Date Unallocated, Noms MD Marissa [address] [place] [address] PCP - Generalmily Rchbfgww42/14/23Team MemberRelationshipSpecialtyStart Date End Date Go Foster MD [address] [place] [address] PCP - Generalmily Xoizaopc05/17/24 Sue Patrick DO [address] [place] [address] Referring UmqnugzqsWdyqdboyq38/17/24Team MemberRelationshipSpecialtyStart Date End Date Go Foster MD [address] [place] [address] [facility] - [facility] Aihizcyw18/17/24 Sue Patrick DO [address] [place] [address] Referring AeltxskzuDdvigddlb52/17/24Team MemberRelationshipSpecialtyStart Date End Date Go Foster MD [address] [place] [address] [facility] - [facility] Qjovdomw16/17/24 Sue Patrick DO [address] [place] [address] Referring VyehojbpmOgkapejgu22/17/24Team MemberRelationshipSpecialtyStart Date End Date Go Foster MD [address] [place] [address] PCP - GeneralFamily Sqnwenjj14/17/24 Sue Patrick DO [address] [place] [address] Referring BxfbohyjhOtilcrhbg29/17/24Team MemberRelationshipSpecialtyStart Date End Date Go Foster MD [address] [place] [address] PCP - GeneralFamily Ysftgjxd48/17/24 Sue Patrick DO [address] [place] [address] Referring HljacnuhwJvpqysjge45/17/24Team MemberRelationshipSpecialtyStart Date End Date Go Foster MD [address] [place] [address] PCP - Generalmily Acpycony95/17/24 Sue Patrick DO [address] [place] [address] Referring XyzvfohzbWdknjnprq00/17/24Team MemberRelationshipSpecialtyStart Date End Date Go Foster MD [address] [place] [address] PCP - GeneralFamily Mlomuyyv11/17/24 Sue Patrick DO [address] [place] [address] Referring StnoahduqYbrtqcxpu01/17/24 Team Status: Inactive Member Role Status Dates [...] Active Start: August 17, 2024 Daljit Messina DOAdmit ProviderActiveStart: August 17, 2024 Ritu Cabrera MDOther ProviderActiveStart: August 17, 2024 Denise Marin MDOther ProviderActiveStart: August 17, 2024 Linda Liz NP-COther ProviderActiveStart: August 17, 2024 Clint Brizuela MDAttending ProviderActiveStart: August 17, 2024 Osman Murphy ProviderActiveStart: August 17, 2024 Luisa Santizo MDOther ProviderActiveStart: August 17, 2024 Team Status: Inactive Member Role Status Dates Go Foster DO Primary Care Provider Active Start: September 21, 2024 End: September 21giovanni Hsu APRNAttenthelma ProviderActiveStart: September 21, 2024 End: September 21, 2024 [...] BE BASED ON THE PRIMARY CLINICAL RECORDS. [facility] [employer] provides no warranty or guarantee of the accuracy or completeness of information in this document.
--- OUTSIDE RECORDS SUMMARY | 2025-01-11 12:30 | XMS_ITS | Encounter Summary ---
Author Organization [facility] Address [address] [place] [address] Care Team Providers Care Terrazzo Journeyman Name Role Phone Go Foster Primary Care Provider +1 [phone] Source Comments In the event this information is protected by the Federal Confidentiality of Alcohol and Drug AbusePatient Records regulations: The Federal rules restrict any use of the information to criminally investigate or prosecute any alcohol or drug abuse patient.[facility] Encounter Details DateTypeDepartmentCare Team (Latest Contact Info)Ymgmfjqvvfq64/12/2025[place] [address] Maico Monreal, SPRING.[facility] [address] [place] [address] Social History Tobacco UseTypesPacks/DayYears UsedDateSmoking Tobacco: NeverAlcohol UseStandard Drinks/WeekCommentsNo0 (1 standard drink = 0.6 oz pure alcohol)PHQ-2AnswerDate RecordedPHQ-2 isexh689/13/2025Area Deprivation IndexAnswerDate RecordedNational Score (1-100), lower number is lower riskNot on file01/29/2020State Score (1- 10), lower number is lower riskNot on file01/29/2020Data from: https://www.neighborhoodatlas.[facility]/. Last address used for calculationNot on file01/29/2020Sex and Gender InformationValueDate RecordedSex Assigned at BirthNot on fileLegal IdsQiid95/02/2012 8:41 AM ESTGender Identity Male01/31/2021 10:38 AM ESTSexual OrientationNot on filedocumented as of this encounter Progress Notes * Maico Monreal APRN.JEREMY - 01/04/2025 12:00 AM EST [facility] ALE[facility]A LEI [facility] NO.: [id number] DATE OF SERVICE: 01/04/2025 ATTENDING PHYSICIAN: JEREMY Fleming [facility] Chart note REASON FOR VISIT: The patient is a resident of [facility]. This is a skilled visit for fracture of the low end of the right tibia and fibula, subsequent encounter with other medical concerns. Upon entering the room, found patient calm, alert, sitting in chair, drawing pictures. The patientdoes not appear to be in distress or discomfort. The patient is somewhat cooperative of assessment process. The patient is more focused on talking about basketball and drawing basketballs, but stateshe has no pain at this time. States he is breathing well and has no nausea. Staff reports the patient has been up and full weightbearing to the right lower extremity, is to assist, but is doing well and states they have no other concerns for the patient. No urinary complaints are identified. MEDICATIONS: Have been reviewed. EXAMINATION: Temp 98 degrees, blood pressure 113/75, pulse 84, respirations 18, pulse ox 97% on room air, weight 184.4 pounds. Respiratory: Respirations are easy and unlabored with the patient at rest. Lungs: Sounds are clear. Heart: Rate and rhythm regular. Abdomen: Soft. No tenderness stated withpalpation. Bowel sounds present x4. No bladder distention noted with palpation. Extremities: Left lower extremity nonedematous. Right lower extremity fracture boot continues in place and the patient is noted moving all toes. IMPRESSION AND PLAN: 1. Fracture of the right lower tib-fib, subsequent encounter with routine healing. Continue with acetaminophen, oxycodone for more severe pain. The patient is up and ambulatory. The patient will continue with Therapy Services and follow up with Orthopedic Services as needed. 2. Urinary retention. The patient is following up with Urology. The patient is being toileted. No urinary complaints at this time. 3. Hypertension. Patient has good blood pressure control. Continue antihypertensive. 4. Hyperlipidemia, on statins. 5. Hypothyroidism, on levothyroxine. DICTATED BY: JEREMY Fleming/JOANNAT JOB# [id number] [facility] documented in this encounter Plan of Treatment Not on file documented as of this encounter Visit Diagnoses Not on filedocumented in this encounter Care Teams Team MemberRelationshipSpecialtyStart DateEnd Date Go Foster DO PCP - General10/24/12documented as of this encounter
--- OUTSIDE RECORDS SUMMARY | 2025-01-11 12:30 | XMS_ITS | Encounter Summary ---
Author Organization [facility] Address [address] [place] [address] Care Team Providers Care Last Inserter Name Role Phone Go Foster Primary Care Provider +1 [phone] Source Comments In the event this information is protected by the Federal Confidentiality of Alcohol and Drug AbusePatient Records regulations: The Federal rules restrict any use of the information to criminally investigate or prosecute any alcohol or drug abuse patient.[facility] Encounter Details DateTypeDepartmentCare Team (Latest Contact Info)Lgnovujveso28/05/2025[place] [address] Maico Monreal APRN.CARDIOLOGY MANAGER [address] [place] [address] Social History Tobacco UseTypesPacks/DayYears UsedDateSmoking Tobacco: NeverAlcohol UseStandard Drinks/WeekCommentsNo0 (1 standard drink = 0.6 oz pure alcohol)PHQ-2AnswerDate RecordedPHQ-2 wlehn868/13/2025Area Deprivation IndexAnswerDate RecordedNational Score (1-100), lower number is lower riskNot on file01/29/2020State Score (1- 10), lower number is lower riskNot on file01/29/2020Data from: https://www.neighborhoodatlas.[facility].edu/. Last address used for calculationNot on file01/29/2020Sex and Gender InformationValueDate RecordedSex Assigned at BirthNot on fileLegal IbfAmug12/02/2012 8:41 AM ESTGender Identity Male01/31/2021 10:38 AM ESTSexual OrientationNot on filedocumented as of this encounter Progress Notes * Maico Monreal APRN.CNS - 12/28/2024 12:00 AM EST [facility] NOTE NAME: ALETHEA LEI [facility] NO.: [id number] DATE OF SERVICE: 12/28/2024 ATTENDING PHYSICIAN: JEREMY Fleming [facility] Chart note REASON FOR VISIT: The patient is a resident of [facility]. This is a followup visit for [...] vomiting episodes since yesterday. DICTATED BY: JEREMY Fleming/JOANNAT JOB# [id number] [facility] documented in this encounter Plan of Treatment Not on file documented as of this encounter Visit Diagnoses Not on filedocumented in this encounter Care Teams Team MemberRelationshipSpecialtyStart DateEnd Date Go Foster DO PCP - General10/24/12documented as of this encounter
--- OUTSIDE RECORDS SUMMARY | 2025-01-11 12:30 | XMS_ITS | Encounter Summary ---
Author Organization [facility] Address [address] [place] [address] Care Team Providers Care Grain Elevator Agent Name Role Phone Go Foster Primary Care Provider +[phone] Source Comments In the event this information is protected by the Federal Confidentiality of Alcohol and Drug AbusePatient Records regulations: The Federal rules restrict any use of the information to criminally investigate or prosecute any alcohol or drug abuse patient.[facility] Encounter Details DateTypeDepartmentCare Team (Latest Contact Info)Tsfutetavht14/07/2025Progress Note Brigitte Rivera Manager [employer] [address] [place] [address] Prema Sapp MD [address] [place] [address] Social History Tobacco UseTypesPacks/DayYears UsedDateSmoking Tobacco: NeverAlcohol UseStandard Drinks/WeekCommentsNo0 (1 standard drink = 0.6 oz pure alcohol)PHQ-2AnswerDate RecordedPHQ-2 /13/2025Area Deprivation IndexAnswerDate RecordedNational Score (1-100), lower number is lower riskNot on file01/29/2020State Score (1- 10), lower number is lower riskNot on file01/29/2020Data from: https://www.neighborhoodatlas.medicine.[facility]/. Last address used for calculationNot on file01/29/2020Sex and Gender InformationValueDate RecordedSex Assigned at BirthNot on fileLegal DwkCxry72/02/2012 8:41 AM ESTGender Identity Male01/31/2021 10:38 AM ESTSexual OrientationNot on filedocumented as of this encounter Progress Notes * Prema Sapp MD - 12/30/2024 12:00 AM EST [facility] NOTE NAME: ALETHEA LEI [facility] NO.: [id number] DATE OF SERVICE: 12/30/2024 ATTENDING PHYSICIAN: Prema Sapp MD [facility] Followup of skilled care He is currently up in his room. He is in good spirits and cooperative. He denies any shortness of breath or chest pain. Nursing reports no new problems. MEDICATIONS: Reviewed. EXAMINATION: HEENT: Intact. Lungs: Clear. Heart: Regular. Abdomen: Soft, nontender. Extremities: Noedema. IMPRESSIONS: 1. Hypertension - blood pressure is well controlled. 2. Hyperlipidemia - continue statin therapy. 3. Hypothyroidism - continue supplement. 4. Recent right intramedullary nailing and right ankle removal of hardware for a spiral fracture-this has been healing nicely. Continue current treatment. DICTATED BY: Prema Sapp MD IAE/AQT JOB# [id number] [facility] documented in this encounter Plan of Treatment Not on file documented as of this encounter Visit Diagnoses Not on filedocumented in this encounter Care Teams Team MemberRelationshipSpecialtyStart DateEnd Date Go Foster DO [facility] - General10/24/12documented as of this encounter
--- OUTSIDE RECORDS SUMMARY | 2025-01-11 12:30 | XMS_ITS | Encounter Summary ---
Author Organization [facility] Address [address] [place] [address] Care Team Providers Care Hard Hat Diver Name Role Phone Go Foster Primary Care Provider +[phone] Source Comments In the event this information is protected by the Federal Confidentiality of Alcohol and Drug AbusePatient Records regulations: The Federal rules restrict any use of the information to criminally investigate or prosecute any alcohol or drug abuse patient.[facility] Encounter Details DateTypeDepartmentCare Team (Latest Contact Info)Qovqnpufhld12/13/2025Travel Social History Tobacco UseTypesPacks/DayYears UsedDateSmoking Tobacco: NeverAlcohol UseStandard Drinks/WeekCommentsNo0 (1 standard drink = 0.6 oz pure alcohol)PHQ-2AnswerDate RecordedPHQ-2 /13/2025Area Deprivation IndexAnswerDate RecordedNational Score (1-100), lower number is lower riskNot on file01/29/2020State Score (1- 10), lower number is lower riskNot on file01/29/2020Data from: https://www.neighborhoodatlas.medicine.[facility].edu/. Last address used for calculationNot on file01/29/2020Sex and Gender InformationValueDate RecordedSex Assigned at BirthNot on fileLegal NvfSxqg13/02/2012 8:41 AM ESTGender Identity Male01/31/2021 10:38 AM ESTSexual OrientationNot on filedocumented as of this encounter Plan of Treatment Not on file documented as of this encounter Visit Diagnoses Not on filedocumented in this encounter Care Teams Team MemberRelationshipSpecialtyStart DateEnd Date Go Foster DO PCP - General10/24/12documented as of this encounter
--- OUTSIDE RECORDS SUMMARY | 2025-01-11 12:30 | XMS_ITS | Encounter Summary ---
Author Organization [facility] Address [address] [place] [address] Care Team Providers Care Sizing End Bander Name Role Phone Go Foster Primary Care Provider [phone] Source Comments In the event this information is protected by the Federal Confidentiality of Alcohol and Drug AbusePatient Records regulations: The Federal rules restrict any use of the information to criminally investigate or prosecute any alcohol or drug abuse patient.[facility] Encounter Details DateTypeDepartmentCare Team (Latest Contact Info)Gnefjzyvdbr47/04/2025[place] [address] Maico Monreal APRN.IT COMMUNICATIONS MANAGER [address] [place] [address] Social History Tobacco UseTypesPacks/DayYears UsedDateSmoking Tobacco: NeverAlcohol UseStandard Drinks/WeekCommentsNo0 (1 standard drink = 0.6 oz pure alcohol)PHQ-2AnswerDate RecordedPHQ-2 /13/2025Area Deprivation IndexAnswerDate RecordedNational Score (1-100), lower number is lower riskNot on file01/29/2020State Score (1- 10), lower number is lower riskNot on file01/29/2020Data from: https://www.neighborhoodatlas.[facility].edu/. Last address used for calculationNot on file01/29/2020Sex and Gender InformationValueDate RecordedSex Assigned at BirthNot on fileLegal GccFfie72/02/2012 8:41 AM ESTGender Identity Male01/31/2021 10:38 AM ESTSexual OrientationNot on filedocumented as of this encounter Progress Notes * Maico Monreal APRN.JEREMY - 12/27/2024 12:00 AM EST [facility] NOTE NAME: [facility]A LEI [facility] NO.: [id number] DATE OF SERVICE: 12/27/2024 ATTENDING PHYSICIAN: JEREMY Fleming [facility] Chart note REASON FOR VISIT: The patient is a resident of [facility]. This is a skilled visit for urinary hesitancy, fracture of the lower end of the right tibia and fibula, subsequent encounter and other medical concerns. Prior to patient assessment, staff reports the patient had developed vomiting today. On- call was notified all weekend after staff was reporting the patient was having low urinaryoutput. Orders were placed last week for toileting every 4 hours. KUB and bladder scan were orderedfor yesterday. Staff reports the patient did have much urine noted on bladder scan, but the patienthas been toileted every 4 hours and when [...] or gag, it is unclear. The patient i s a poor historian and does not answer [...] for more severe pain. DICTATED BY: JEREMY Fleming/AMERICA JOB# [id number] [facility] documented in this encounter Plan of Treatment Not on file documented as of this encounter Visit Diagnoses Not on filedocumented in this encounter Care Teams Team MemberRelationshipSpecialtyStart DateEnd Date Go Foster DO PCP - General10/24/12documented as of this encounter
--- OUTSIDE RECORDS SUMMARY | 2025-01-11 12:31 | XMS_ITS | Clinical Summary ---
Author Organization [facility] tem Address [facility] [id number] [address] [place] [address] Care Team Providers Care Laboratory Tester Name Role Phone Go Foster Radhames OLIVO Primary Care Provider Social History Tobacco UseTypesPacks/DayYears UsedDateSmoking Tobacco: Never AssessedChildcare AnswerDate CcevtqavWvtcabfmdSykwzip71/12/2019EmploymentAnswerDate Recorded FweatbrzfsOmhddbo83/12/2019Purpose - LifeAnswerDate RecordedPurpose and direction in mpfrNqvivee22/11/2021Sex and Gender InformationValueDate Recorded Sex Assigned at BirthNot on fileLegal DcxOhqg8807/17/2016 12:50 PM EDTGender IdentityNot on fileSexual OrientationNot on file Plan of Treatment Not on file Medical Devices Not on file Insurance Care Teams Team MemberRelationshipSpecialtyStart DateEnd Date Go Foster DO [address] [place] [address] [facility]07/17/16
--- OUTSIDE RECORDS SUMMARY | 2025-01-11 12:31 | XMS_ITS | Clinical Summary ---
Author Organization [facility] Address [address] [place], [place] [address] Care Team Providers Care Transfer Pumper Name Role Phone FosterGo Radhames OLIVO Primary Care Provider [phone] Allergies Active AllergyReactionsCriticalityNoted DateCommentsAripiprazoleMental Status PwpdliHyljoo14/09/2008 agressiveness Pertussis Nlbbflpk22/20/2008 Medications * This document contains information received from the source organization and may not represent a complete record from that organization. MedicationSigDispense QuantityRefillsLast FilledStart DateEnd DateStatus BENZTROPINE 1 MG TAB take 1 tablet AYL287ctive DOCUSATE SODIUM 100 MG CAP take one tab PO tid 0 ctive MULTIVITAMIN CAP dailyActive POTASSIUM CHLORIDE SR 10 MEQ TAB one cap three times dailyActive PARoxetine 40 mg tablet Indications:Tuberous sclerosis (HCC),Epilepsy (HCC)Take 1.5 tablets by mouth once daily.07/04/2011ctive cloNIDine 0.1 mg tablet Indications:Other and unspecified special symptom or syndrome, not elsewhere classifiedTake 1 tablet by mouth three times daily.07/01/2011ctive OXcarbazepine 600 mg tablet Take 1 tablet by mouth three times daily. 39 tablet ctive levothyroxine (SYNTHROID) 150 mcg tablet Take 1 tablet by mouth once daily.ctive fluocinonide (LIDEX) 0.05 % cream Apply 1 application to affected area once each week.01/30/2015ctive haloperidol (HALDOL) 5 mg tablet Take 3 tablets daily by mouth in the morning, 2 tablets in the evening, and 3 tablets at /24/2017Active bfnjkei-enkzkvagq-xcspiie D3 (OYSTER SHELL CALCIUM-VITAMIN D) 500 mg(1,250mg) - 200 unit per tablet Take 1 tablet by mouth twice daily with meals.Active alendronate (FOSAMAX) 70 mg tablet Take 1 tablet by mouth one time a week. on Wednesdays at 15:24244Active loratadine (CLARITIN) 10 mg tablet Take 1 tablet by mouth once daily. for 3 days as needed for nasal congestion.0 06/01/2019Active busPIRone (BUSPAR) 7.5 mg tablet Take 1 tablet by mouth two times a day. 60 tablet Expired Active Problems ProblemNoted DateDiagnosed DateIntellectual /09/2021Impulse control xlypqvyq10/24/2013Frontal lobe krthuxyx17/10/2009utism spectrum disorder 08/02/2008Other and unspecified special symptom or syndrome, not elsewhere debbqxunjc72/11/2008Tuberous afrscmkuo72/10/2008Hemangioma of skin and subcutaneous ftntec6002/02/2008 Encounters * This document contains information received from the source organization and may not represent a complete record from that organization. DateTypeDepartmentCare SfitMrpstirlple09/18/2025 Patient Msg Medical Records [address] [place] [address] Provider, [facility] Update for Our Medicare Patients Regarding Virtual Qohzil7001/06/2025[place] [address] Maico Monreal APRN.RANGE MASTER 01/05/20250700Mxshec55/12/2025[place] [address] Maico Monreal APRN.RANGE MASTER 01/02/2025[place] [address] Maico Monreal APRN.RANGE MASTER 12/30/2024Progress Note [facility] [address] [place] [address] Prema Sapp MD 12/29/2024[place] [address] Maico Monreal APRN.RANGE MASTER 12/28/2024[place] [address] Maico Monreal APRN.RANGE MASTER 12/27/2024[place] [address] Maico Monreal DIESEL ENGINE SPECIALIST.RANGE MASTER 12/22/2024[place] [address] Maico Monreal DIESEL ENGINE SPECIALIST.RANGE MASTER 12/20/2024[place] [address] Maico Monreal APRN.RANGE MASTER 12/15/2024Progress Note [facility] [address] [place] [address] Prema Sapp MD 12/14/2024[place] [address] Maico Monreal DIESEL ENGINE SPECIALIST.RANGE MASTER 12/12/2024[place] [address] Maico Monreal APRN.RANGE MASTER 12/05/20244660Wnolwe98/09/2025[place] [address] Maico Monreal APRN.RANGE MASTER 11/30/2024 Patient Msg Medical Records [address] [address] Provider, [facility] Important Notice for Our Medicare Patients Regarding Appointment Scheduling 11/29/2024[place] [address] Maico Monreal APRN.RANGE MASTER 11/23/2024[place] [address] Maico Monreal APRN.RANGE MASTER 11/21/2024Progress Note [facility] [address] [place] [address] Prema Sapp MD from Last 3 Months Social History Tobacco UseTypesPacks/DayYears UsedDateSmoking Tobacco: Never Tobacco Cessation:Counseling Given: Yes Alcohol UseStandard Drinks/WeekCommentsNo0 (1 standard drink = 0.6 oz pure alcohol)PHQ-2AnswerDate RecordedPHQ-2 spbta279/13/2025Area Deprivation Index AnswerDate RecordedNational Score (1-100), lower number is lower riskNot on file 01/29/2020State Score (1-10), lower number is lower riskNot on file01/29/2020 Data from: https://www.neighborhoodatlas.medicine.[facility].edu/. Last address used for calculationNot on file01/29/2020Sex and Gender InformationValueDate Recorded Sex Assigned at BirthNot on fileLegal ZipUbtx14/02/2012 8:41 AM ESTGender ValutauyPoht38/09/2021 10:38 AM ESTSexual OrientationNot on file Last Filed Vital Signs Vital SignReadingTime TakenCommentsBlood Jvdhyius905/78008/09/2020 10:33 AM EDT Kfckw0829 10:33 AM DRIPrvnnlsnpds73.3 ??C (97.4 ??F)10/29/2012 1:47 PM EDTRespiratory Ggzh200008/09/2020 10:33 AM EDTOxygen Prexxefwun40%08/09/2020 10:33 AM EDTInhaled Oxygen Concentration--Ritxym17.2 kg (194 lb 8 oz)08/09/2020 10:33 AM ZWLJclecp629 cm (5' 8.5 )08/09/2020 10:33 AM EDTBody Mass Index29.14 08/09/2020 10:33 AM EDT Plan of Treatment Health MaintenanceDue DateLast DoneCommentsAnxiety Wjfnefaeh81/18/1986Depression Oddalksqh36/18/1986HIV Uwbundgpw52/18/1986Hepatitis C Qqwgtzrkg21/18/1986 Medicare Annual Wellness Visit02/24/1996Lipid Asndnremr53/18/2003CT Colonography 01/10/20136528Pkepsysgraj19/18/2013Fecal Occult Blood01/10/2013Prostate Cancer Screening Jhqghqvpyi51/18/8775Lsfflncxzupxq87/18/2013Covid-19 Vaccine ( season), 12/11/2021, 06/26/2021, Additional history existsInfluenza Vaccine (#1)/, 12/10/2022, 12/11/2021, Additional history existsDTaP,Tdap,Td Vaccine (1 - Tdap)/, 07/12/2015, 06/25/2005Cologuard (FIT-DNA)/3Colorectal Cancer Txuvmznwr37/21/2026Diabetes Yidxanxpe93, 11/17/2024, 11/16/2024, Additional history existsHepatitis B GlgipjkDgdwvwzcm41/12/1985, 07/08/1984, 06/08/1984Pneumococcal Vaccine: 50+Gusqcmfuy65/31/2025Shingrix ReywggqVvezmovjg04/14/2025, 03/25/2024 Procedures Procedure NamePriorityDate/TimeAssociated DiagnosisCommentsBASIC METABOLIC PANEL Rtdaxna1010/29/2012 4:44 AM EDT from Last 3 Months or Most Recently Relevant to Health Maintenance Insurance [address] [place] [address] Care Teams Team MemberRelationshipSpecialtyStart DateEnd Date Go Foster DO PCP - General10/24/12
--- OUTSIDE RECORDS SUMMARY | 2025-01-11 12:31 | XMS_ITS | Clinical Summary ---
Author Organization [facility] Address [address] [place] [address] Care Team Providers Care Card Processing Clerk Name Role Phone Go Foster MD Primary Care Provider Sue Patrick DO Unavailable [phone] Allergies Active AllergyReactionsCriticalityNoted DateCommentsPertussis VaccinesUnknown 02/05/2023 Medications MedicationSigDispense QuantityRefillsLast FilledStart DateEnd DateStatus atorvastatin (Lipitor) 40 MG tablet Take 40 mg by mouth in the morning.01/27/2023ctive Calcium Carb-Cholecalciferol (Oyster Shell Calcium w/D) 500-5 MG-MCG tablet Take 1 tablet by mouth in the morning and 1 tablet before bedtime.01/27/2023 Active cloNIDine (Catapres) 0.1 MG tablet TAKE ONE TABLET BY MOUTH 3 TIMES DAILY CATAPRESActive docusate sodium (Colace) 100 MG capsule TAKE ONE CAPSULE BY MOUTH 3 TIMES DAILYActive haloperidol (Haldol) 5 MG tablet TAKE 3 TABLETS BY MOUTH IN THE MORNING 2 TABLETS IN THE EVENING AND 3 TABLETS AT BEDTIMEActive levETIRAcetam (Keppra) 500 MG tablet Take 1 tablet by mouth in the morning and 1 tablet before bedtime.01/27/2023 Active levothyroxine (Synthroid, Levoxyl) 175 MCG tablet Take 175 mcg by mouth in the morning. Take before meals.01/27/2023ctive losartan (Cozaar) 100 MG tablet Take 100 mg by mouth at mmuuqtn1501/27/2023ctive meloxicam (Mobic) 15 MG tablet TAKE ONE TABLET BY MOUTH DAILY AT BEDTIME MOBIC01/27/2023ctive Mouthwashes (Biotene Dry Mouth) liquid TWICE A DAY SWISH 15ML FOR 30 SEC THEN SPIT103/30/2022ctive Multiple Vitamin (Multivitamin) tablet Take 1 tablet by mouth in the morning.01/27/2023ctive OXcarbazepine (Trileptal) 600 MG tablet TAKE ONE TABLET BY MOUTH IN THE MORNING AND TWO TABLETS AT BEDTIME TRILEPTAL Active PARoxetine (Paxil) 40 MG tablet Take 60 mg by mouth DailyActive potassium chloride ER (Micro-K) 10 MEQ ER capsule TAKE ONE CAPSULE BY MOUTH 3 TIMES DAILY01/27/2023ctive benztropine (Cogentin) 1 MG tablet Take 1 mg by mouth in the morning and 1 mg in the evening and 1 mg before bedtime.Active fluocinonide (Lidex) 0.05 % external solution 03/10/2023ctive Prolia 60 MG/ML solution prefilled syringe 07/07/2023ctive triamcinolone (Kenalog) 0.1 % cream Apply topically 2 (two) times a dayActive acetaminophen (Tylenol) 325 MG tablet Take by mouthActive loratadine (Claritin Reditabs) 10 MG disintegrating tablet Take 10 mg by mouth DailyActive traMADol (Ultram) 50 MG tablet Take 50 mg by mouth every 4 (four) hours if needed for severe painActive amLODIPine (Norvasc) 5 MG tablet Take 5 mg by mouth Daily02/03/2024ctive Active Problems ProblemNoted DateDiagnosed DateAlkaline phosphatase qyohizkya53/18/2024Tuberous sclerosisMyofascial pain syndrome Overview (08/06/2023): Abdominal Wall or Pelvic Floor Seizure disorderBehavior disturbanceDisturbance of conductMental disability Overview (08/06/2023): Mental Retardation Back spasm Encounters DateTypeDepartmentCare YjxgQodgrdtlguj23/11/2025 11:50 AM EDTProcedure Visit [facility] [address] [place] [address] Glenn Flores, DPM Lisfranc dislocation, left, initial encounter (Primary Dx); Pain due to onychomycosis of toenails of both feet11/03/2024bstract [facility] [address] [place] [address] Glenn Flores DPM 11/03/2024amboo flowsheet [facility] [address] [facility] [address] [place] [address] Glenn Flores DPM 11/03/2024Travelfrom Last 3 Months Family History RelationNameStatusCommentsFatherAliveMotherAlive Social History Tobacco UseTypesPacks/DayYears UsedDateSmoking Tobacco: NeverPassive Smoke Exposure: NeverSmokeless Tobacco: Never Tobacco Cessation:Counseling Given: Yes Alcohol UseStandard Drinks/WeekCommentsNever0 (1 standard drink = 0.6 oz pure alcohol)Sex and Gender InformationValueDate RecordedSex Assigned at BirthNot on fileLegal CheIplb0105/07/2022 6:35 PM EDTGender IdentityNot on fileSexual OrientationNot on file Last Filed Vital Signs Vital SignReadingTime TakenCommentsBlood Aihnspml365/9003 4:06 PM EDT Mtzfv6661 4:06 PM EDTTemperature--Respiratory Fygn643811/03/2024 11:42 AM EDTOxygen Wygiwrmtrx04%08/06/2023 9:00 AM EDTInhaled Oxygen Concentration-- Uaxlkj54.9 kg (185 lb)11/03/2024 11:42 AM UQZLgotkj349.7 cm (5' 8 )11/03/2024 11:42 AM EDTBody Mass Index28.1309 11:42 AM EDT Plan of Treatment DateTypeDepartmentCare Team (Latest Contact Info)Xtnewwbqvtd70/04/2025 11:40 AM ESTProcedure Visit [facility] [address] [facility] [address] [place] [address] Glenn Flores DPM [address] [facility] [address] [place] [address] Health MaintenanceDue DateLast DoneCommentsCT Tgcfrbuakftd1968Colonoscopy 1968FIT1968FOBT1968 3791Dzkklbybhhewb1968COVID-19 Vaccine ( season)512/01/2024, 12/10/2022, 06/26/2021, Additional history existsInfluenza Vaccine (#1)510/, 12/10/2022, 12/11/2021, Additional history existsColorectal Cancer Ailapizqu04/21/2026 FIT-DNAneumococcal Vaccine: Pediatrics (0 to 5 Years) and At-Risk Patients (6 to 64 Years)Aged OutNo longer eligible based on patient's age to complete this topic Insurance * Guarantor: Christina Segovia TypeRelation to PatientDate of BirthPhoneBilling AddressPersonal/VmlfpoThks1970 [address] [address] Care Teams Team MemberRelationshipSpecialtyStart DateEnd Date Go Foster MD [address] [place], [place] [address] PCP - GeneralFamily Krclsfwn16/17/24 Sue Patrick DO [address] [place] [address] Referring AxkeehnqgLhzpknzhj05/17/24
--- OUTSIDE RECORDS SUMMARY | 2025-01-11 12:31 | XMS_ITS | Patient Health Record ---
Author Organization [facility] es Address [address] [place] [address] Care Team Providers Care Engineering Design Supervisor Name Role Phone Dr. Panda Rivera Primary Care Provider EduardSommerBrianna Unavailable [phone] Yolanda Harley Unavailable [phone] Saloni Montero Unavailable [phone] Reason For Referral No Information Encounters Encounter Location Date Provider Diagnosis [facility] [address] [place] [address] 06/01/2024 Yolanda Harley Encounter for dental examination and cleaning with abnormal findings Z01.21 ; Other dental procedure status Z98.818 ; Disturbances in tooth eruption K00.6 ; Acute gingivitis, plaque induced K05.00 ; Dental caries on pit and fissure surface penetrating into dentin K02.52 ; Necrosis of pulp K04.1 and Cracked tooth K03.81 [facility] [address] [place] [address] 09/20/2024 Yolandamiles Harley [facility] [place] [address]/01/2025 Saloni YiDental caries on pit and fissure surface penetrating into dentin K02.52 and Cracked tooth K03.81[facility] [place] [address]Esther YiDental caries on pit and fissure surface penetrating into dentin K02.52 Assessments Encounter Date Diagnosis (ICD Code) Assessment Notes Treatment Notes Treatment Clinical Notes Section Notes 06/01/2024 Encounter for dental examination and cleaning with abnormal findings (ICD-10 - Z01.21) 10/04/2024Dental caries on pit and fissure surface penetrating into dentin (ICD- 10 - K02.52)11/09/2024Dental caries on pit and fissure surface penetrating into dentin (ICD-10 - K02.52)10/04/2024racked tooth (ICD-10 - K03.81)06/01/2024Other dental procedure status (ICD-10 - Z98.818)06/01/2024Disturbances in tooth eruption (ICD-10 - K00.6)06/01/2024ute gingivitis, plaque induced (ICD-10 - K05.00)06/01/2024Dental caries on pit and fissure surface penetrating into dentin (ICD-10 - K02.52)06/01/2024Necrosis of pulp (ICD-10 - K04.1)06/01/2024 Cracked tooth (ICD-10 - K03.81) Plan Of Treatment Next Appt Details Provider Name:Saloni Montero, 07/2025 10:00:00 AM, [address], [place], [address], Provider Name:Saloni Montero, 10:00:00 AM, [address], [place], [address], Provider Name:Brianna Chapa , 05/30/2025 11:15:00 AM, [address], [place], [address], Insurance Providers Payer Name Payer Address Payer Phone Subscriber Number Group Number Insured Name Patient Relationship to Insured Coverage Start Date Coverage End Date [employer] [address] [place] [id number] ANUEL LEIelf - patient is the [id number] 2024
--- OUTSIDE RECORDS SUMMARY | 2025-01-11 12:31 | XMS_ITS ---
Author Organization [facility] Care Team Providers Care Transaction Processor Name Role Phone EDWIN*, ITRI Unavailable Unavailable Maico Monreal Unavailable Unavailable Allergies and adverse reactions Code CodeSystem Substance Reaction Severity StartDate Concern Status 91872 RXNORM ARIPiprazole Aggressive behavior (code- 04813632, SNOMED CT) Unknown 11/18/2024 active 8080 RXNORM Pertussis Vaccine Unknown 11/18/2024 act nathalia Care Team Name Role Address Phone Organization Dates ITRI EDWIN* PCP [address], [place], [address], [facility] (Office): : [facility] 11/19/2024 - 01/09/2025 Maico Monreal [address], [place], [address], [facility]/19/2024 - 01/09/2025 Encounters Encounter Type Code Code System Description Performer Discharge Disposition Service Delivery Location Date Ambulatory Encounter CPT Code = [id number] Admission by orthopedic surgeon Lissa Teixeira [facility] Address: [address] [place] [address], [phone] , [facility]. 11/18 Ambulatory Encounter CPT Code = [id number] Undernutrition Lissa Lluvia [facility] Address: [address] [place] [address], [phone] , [facility]. 11/18 Ambulatory Encounter CPT Code = [id number] Essential hypertension [facility] Address: [address] [place] [address], [phone] , [facility]. 11/18 Ambulatory Encounter CPT Code = [id number] Non-organic psychosis Lissa Teixeira [facility] Address: [address] [place] [address], [phone] , [facility]. 11/18 Ambulatory Encounter CPT Code = 95670 I69.314 ICD 10 FRONTAL LOBE AND EXECUTIVE FUNCTION DEFICIT FOLLOWING [facility]BR[facility] Address: [address] [place] [address], [phone] , [facility]. 11/18 Ambulatory Encounter CPT Code = [id number] [facility] Address: [address] [place] [address], [phone] , [facility]. 11/18 Ambulatory Encounter CPT Code = [id number] Chronic kidney disease stage 3 [facility] Address: [address] [place] [address], [phone] , [facility]. 11/18 Ambulatory Encounter CPT Code = [id number] Tuberous sclerosis syndrome [facility] Address: [address] [place] [address], [phone] , [facility]. 11/18 Ambulatory Encounter CPT Code = [id number] Moderate intellectual disability [facility] Address: [address] [place] [address], [phone] , [facility]. 11/18 Ambulatory Encounter CPT Code = [id number] Autism spectrum disorder [facility] Address: [address] [place] [address], [phone] , [facility]. 11/18 Ambulatory Encounter CPT Code = [id number] Attention deficit hyperactivity disorder, predominantly inattentive type [facility] Address: [address] [place] [address], [phone] , [facility]. 11/18 Ambulatory Encounter CPT Code = [id number] Obsessive-compul sive disorder [facility] Address: [address] [place] [address], [address] [place] [address] , [facility]. 11/18 Ambulatory Encounter CPT Code = [id number] Seizure [facility] Address: [address] [place] [address], [address] [place] [address] , [facility]. 11/18 Ambulatory Encounter CPT Code = [id number] Falls [facility] Address: [address] [place] [address], [address] [place] [address] , [facility]. 11/18 Ambulatory Encounter CPT Code = [id number] Recurrent major [facility] Address: [address] [place] [address], [address] [place] [address] , [facility]. 11/18 Ambulatory Encounter CPT Code = [id number] Hypothyroidism Lissa Lluvia [facility] Address: [address] [place] [address], [address] [place] [address] , [facility]. 11/18 Ambulatory Encounter CPT Code = [id number] Benign prostatic hyperplasia with outflow obstruction [facility] Address: [address] [place] [address], [address] [place] [address] , [facility]. 11/18 Ambulatory Encounter CPT Code = [id number] Retention of urine [facility] Address: [address] [place] [address], [address] [place] [address] , [facility]. 11/18 Ambulatory Encounter CPT Code = [id number] Fracture of clavicle [facility] Address: [address] [place] [address], [address] [place] [address] , [facility]. 11/18 Ambulatory Encounter CPT Code = [id number] Wedge fracture of thoracic vertebra [facility] Address: [address] [place] [address], [address] [place] [address] , [facility]. 11/18 Ambulatory Encounter CPT Code = [id number] Wedge fracture of thoracic vertebra [facility] Address: [place], [address] , [facility]. 11/18 Ambulatory Encounter CPT Code = [id number] Closed fracture distal tibia [facility] Address: [place], [address] , [facility]. 11/18 Ambulatory Encounter CPT Code = [id number] Closed fracture of fibula [facility] Address: [place], [address] , [facility]. 11/18 Ambulatory Encounter CPT Code = [id number] Diaphragmatic hernia [facility] Address: [place], [address] , [facility]. 11/18 Goals Section Goals Description Status Target Date Family issues will not inter fere in resident's health, care, and wellbeing through the next review. Active 01/30/2025 I will continue monitor inta kes>/=75%, maintain weights with no significant changes, maintain skin integrity, monitor labs results. Active 01/30/2025 I will maintain adequate hyd ration AEB good skin turgor and moist mucous membranes through next review. Active 01/30/2025 Labs will be within acceptab le parameters as determined by the physician through the next review. Active 01/30/2025 Minimize risks for falls/min imize injuries related to falls through next review Active 01/30/2025 Resident will accept assistance during bathing a nd / or showering. Active 01/30/2025 Resident will accept mouth c are at least daily through the review. Active 01/30/2025 Resident will accept/interac t with others during 1:1 visits through the next review. Active 01/30/2025 Resident will be able to bebe e basic needs known through the next review Active 01/30/2025 Resident will be at a reduce d risk for complications from incontinence through next review Active 01/30/2025 Resident will be free of adv erse effects from anti-parkinson's medication through the next review. Active 01/30/2025 Resident will be free of adv erse effects from pain medications through the next review Active 01/30/2025 Resident will be free of com plications related altered respiratory status through next review Active 01/30/2025 Resident will be free of com plications related to altered cardiac status through next review Active 01/30/2025 Resident will be free of com plications related to altered gastrointestinal status through the next review. Active 01/30 Resident will be free of com plications related to altered genitourinary status through the next review Active Resident will be free of com plications related to imparied circulatory status through next review Active 01/30/2025 Resident will be free of com plications related to their altered musculoskeletal status through the next review Active 025 Resident will be free of ezra naresh self or others during periods of combativeness through the next review. Active 01/30/2025 Resident will be free of seizure activity throug h next review. Active 01/30/2025 Resident will comply with re commendations to minimize the risk of skin impairment through the next review. Active 01/30/2025 Resident will comply with tu rning and repositioning through the next review. Active 01/30/2025 Resident will engage in cait y decision making through the next review. Active 01/30/2025 Resident will have a safe di scharge/transition to new SNF upon discharge Active 01/30/2025 Resident will have a safe tr ansition back to the community by the next review Active 01/30/2025 Resident will have no allerg ic reaction through next review. Active 01/30/2025 Resident will remain free fr om signs and symptoms of abnormal bleeding through the next review. Active 01/30/2025 Resident will remain symptom -free AEB no new onset or worsening of cough, difficulty breathing, runny nose, chills, sore throat, increased heart rate or fever through next review. Active 09/2024 Resident will verbalize unde rstanding of discharge instructions upon discharge Active 01/30/2025 Resident's code status prefe rence will be honored through the next review Active 01/30/2025 The resident will cope with their cognitive impairment evidenced by having no episodes of anxiety or frustrations through the next review. Active 01/30/2025 Functional Status Code Name Recorded Time Value Entered By 1 step (curb) 01/09/2025 Not assessed dpower 12 steps 01/09/2025 Independent dpower 4 steps 01/09/2025 Not assessed dpower Car transfer 01/09/2025 Not assessed dpower Chair/ndl-ki-nlvub transfer 01/09/2025 Not assessed dpower Does the resident use a wheelchair and/or scooter? 01/09/2025 Yes (qualifier value) dpower Eating 01/09/2025 Not assessed dpower Indicate the type of wheelchair or scooter used 01/09/2025 Manual wheelchair (physical object) dpower Lower body dressing 01/09/2025 Not assessed dpower Lying to sitting on side of bed 01/09/2025 Not assessed dpower Oral hygiene 01/09/2025 Not assessed dpower Personal hygiene 01/09/2025 Not assessed dpower Picking up object 01/09/2025 Not assessed dpower Putting on/taking off footwear 01/09/2025 Not assess ed dpower Roll left and right 01/09/2025 Substantial/maximal a ssistance dpower Shower/bathe self 01/09/2025 Not assessed dpower Sit to lying 01/09/2025 Not assessed dpower Sit to stand 01/09/2025 Not assessed dpower Toilet transfer 01/09/2025 Not assessed dpower Toileting hygiene 01/09/2025 Dependent dpower Upper body dressing 01/09/2025 Not assessed dpower Walk 10 feet 01/09/2025 Not assessed dpower Walk 150 feet 01/09/2025 Independent dpower Walk 50 feet 01/09/2025 Independent dpower Walking 10 feet on uneven surfaces 01/09/2025 Not assessed dpower Wheel 150 feet 01/09/2025 Not assessed dpower Wheel 50 feet with two turns 01/09/2025 Not assessed dpower Immunizations Immunization Status Vaccine Details Vaccine Code CodeSystem Date Notes Influenza completed Influenza, high-dose, split virus, quadrivalent, injectable, preservative free lotNumber: [id number] expiry: 07/19/2025 Mfg: Fluad Given 0.5 ml Left Deltoid intramuscularly 197 CVX created date: 12/07/2024 consent date: 12/07/2024 administer ed date: 12/08/2024 Educated by on 12/08/2024 Hepatitis B completed hepatitis B vaccine, adult dosage 43 CVX created date: 11/21/2024 administer ed date: 01/04/1985 Hepatitis Bcompletedhepatitis B vaccine, adult [id number] date: 11/21/2024 administered date: 07/08/1984Hepatitis Bcompletedhepatitis B vaccine, adult qygfuu49FLVswptsdw date: 11/21/2024 administered date: 06/08/1984TB 2 Step Mantoux Skin Testcompletedtuberculin skin test; unspecified formulation Given Left Forearm intradermally Step 2 of Multi-step with next step ieevxyxz40BWBppnikml date: 12/01/2024 consent date: 11/19/2024 administered date: 11/25/2024TB 2 Step Mantoux Skin Testcompletedtuberculin skin test; unspecified formulation Given Right Forearm intradermally Step 1 of Multi-step with next step uhlijnaf42EAXoortgtg date: 12/01/2024 consent date: 11/19/2024 administered date: 11/19/2024Educated by on 12/01/20244886ZPJH-WXZ-1 (COVID-19) bovbjluneYDYY-QYX-5 (COVID-19) vaccine, mRNA, spike protein, LNP, preservative free, 10 mcg/0.2mL dose, syeda-sucrose formulation Given Left Deltoid intramuscularly Step 1 of Multi-jtnu690XSAdkwvsht date: 12/07/2024 consent date: 12/07/2024 administered date: 12/16/2024Educated by on 12/19/20249538ISWS-VBX-6 (COVID-19) eiofejpgkBMVZ-JOK-3 (COVID-19) vaccine, mRNA, spike protein, LNP, preservative free, 10 mcg/0.2mL dose, syeda-sucrose formulation Step 2 of Multi-step with next step hcbrpnam769KWOqlrceyg date: 11/21/2024 administered date: 02/04/20240696ITQM-GKZ-2 (COVID-19)xrwgfkhacYHFZ-MWH-9 (COVID-19) vaccine, mRNA, spike protein, LNP, preservative free, 10 mcg/0.2mL dose, syeda- sucrose formulation Given intramuscularly Step 1 of Multi-step with next step asxhlygu190ILBwoedfly date: 11/21/2024 administered date: 4RSV 60>abortedRespiratory syncytial virus (RSV), vaccine, bivalent, protein subunit RSV prefusion F, diluent reconstituted, 0.5 mL, preservative cvxi823KFFhhustyk date: 11/21/2024 consent date: 11/21/2024under age 58pneumococcal conjugate PCV 7completed pneumococcal conjugate vaccine, 7 jipfxn952KVAbhdltir date: 11/21/2024 administered date: 03/25/2024zoster livecompletedzoster vaccine, allm574WHW created date: 11/21/2024 administered date: 03/25/2024influenza, trivalent, adjuvantedcancelledInfluenza, adjuvanted, inactivated, trivalent, injectable, preservative jpty066VVSltkcqmx date: 12/01/2024 consent date: 11/28/2024Educated by on 12/01/2024Influenza, seasonal, injectable completedInfluenza, split virus, trivalent, injectable, contains preservative Given Right Deltoid tnmqwzfwdhssftk648IZCphusivk date: 12/13/2024 consent date: 11/28/2024 administered date: 12/08/2024Educated by on 12/13/2024zoster recombinant completedzoster vaccine hxreiilvlmu964VVNyzivcyp date: 11/21/2024 administered date: 06/06/2024 Medications Section Medication Name Status Code CodeSystem Dose Route Frequency Admin Type Sig Text Start Date End Date Indication Keppra Oral Tablet 500 MG aborted 24033 6 RXNORM 1 table t Oral two times a day Routin e Give 1 table t by mouth two times a day relat ed to OTHER SEIZU RES (G40. 89) 01/09 - Levothyroxi ne Sodium Oral Tablet 137 MCG aborted 89779 0 RXNORM 1 table t Oral one time a day Routin e Give 1 table t by mouth one time a day relat ed to [facility], UNSPE CIFIE D (E03. 9) 01/09 - Bisacodyl Suppository 10 MG aborted 9 RXNORM 1 suppo sitor y Rectal as needed PRN Inser t 1 suppo sitor y recta lly every 24 hours as neede d for Const ipati on daily if no resul ts for MOM 01/09 Constipatio n Calcium Carbonate-V itamin D Oral Tablet 600-10 MG-MCG aborted 1 table t Oral two times a day Routin e Give 1 table t by mouth two times a day for suppl ement 01/09 supplement cloNIDine HCl Oral Tablet 0.1 MG aborted 85177 3 RXNORM 1 table t Oral three times a day Routin e Give 1 table t by mouth three times a day for HTN 01/09 HTN PARoxetine HCl Oral Tablet 30 MG aborted 46744 03 RXNORM 2 table t Oral at bedtime Routin e Give 2 table t by mouth at bedti me for depre ssion 01/09 depression Senna Oral Tablet aborted 8.6 mg Oral at bedtime Routin e Give 8.6 mg by mouth at bedti me for const ipati on 01/09 constipatio n amLODIPine Besylate Oral Tablet 10 MG aborted 67992 5 RXNORM 10 mg Oral one time a day Routin e Give 10 mg by mouth one time a day for HTN 01/09 HTN Polyethylen e Glycol Powder aborted 17 gram Oral one time a day Routin e Give 17 gram by mouth one time a day for const ipati on 01/09 constipatio n Benztropine Mesylate Oral Tablet 1 MG aborted 74858 3 RXNORM 1 mg Oral three times a day Routin e Give 1 mg by mouth three times a day for Parki nson like sympt oms. 01/09 Parkinson like symptoms. Lipitor Tablet 40 MG aborted 26204 0 RXNORM 1 table t Oral one time a day Routin e Give 1 table t by mouth one time a day for hyper lipid emia 01/09 hyperlipide kelly Haloperidol Oral Tablet 5 MG aborted 93231 2 RXNORM 3 table t Oral two times a day Routin e Give 3 table t by mouth two times a day for agita tion 01/09 agitation Acetaminoph en Tablet 500 MG aborted 0 RXNORM 2 table t Oral every 8 hours Routin e Give 2 table t by mouth every 8 hours for pain/ disco mfort NOT TO EXCEE D 3,000 MG APAP / 24 HOUR FROM ALL [facility] ES. 01/09 pain/discom fort Tamsulosin HCl Oral Capsule 0.4 MG aborted 53243 9 RXNORM 1 capsu le Oral at bedtime Routin e Give 1 capsu le by mouth at bedti me for BPH/ Urina ry reten tion 01/09 BPH/ Urinary retention Aspirin Oral [place]apsule [place] [address] 7 RXNORM 1 capsu le Oral two times a day Routin e Give 1 capsu le by mouth two times a day for antip latel t for 6 Weeks x6wee ks 12/31 antiplatelt Nebivolol HCl Oral Tablet 5 MG aborted 40999 3 RXNORM 5 mg Oral one time a day Routin e Give 5 mg by mouth one time a day for HTN 01/09 HTN Fleet Enema Enema 7-19 GM/118ML aborted 57251 5 RXNORM 1 unit Rectal as needed PRN Inser t 1 unit recta lly every 24 hours as neede d for Const ipati on. Give if no resul ts from laxat nathalia suppo sitor y. 01/09 Constipatio n. Milk of Magnesia Suspension 1200 MG/15ML aborted 50742 7 RXNORM 30 ml Oral as needed PRN Give 30 ml by mouth every 12 hours as neede d for Const ipati on if no BM in 3 days 01/09 Constipatio n if no BM in 3 days oxyCODONE HCl Oral Tablet 5 MG aborted 54130 21 RXNORM 1 table t Oral as needed PRN Give 1 table t by mouth every 6 hours as neede d for pain up to 10 doses 01/09 pain OXcarbazepi ne Oral Tablet 600 MG aborted 77921 8 RXNORM 1 table t Oral one time a day Routin e Give 1 table t by mouth one time a day for seizu res AND Give 2 table t by mouth at bedti me for seizu res 01/09 seizures 23119 8 RXNORM 2 table t Oral at bedtime Routin e Give 1 table t by mouth one time a day for seizu res AND Give 2 table t by mouth at bedti me for seizu res 01/09 seizures Haloperidol Oral Tablet 10 MG aborted 02943 5 RXNORM 10 mg Oral one time a day Routin e Give 10 mg by mouth one time a day for agita tion 01/09 agitation Vistaril Oral Capsule [place] [address] 5 RXNORM 1 capsu le Oral as needed PRN Give 1 capsu le by mouth every 12 hours as neede d for anxie ty for 14 Days psych to re-ev aluat e 12/15 anxiety busPIRone HCl Oral Tablet 7.5 MG aborted 58024 1 RXNORM 1 table t Oral two times a day Routin e Give 1 table t by mouth two times a day for anxie ty/ag itati on 01/06 anxiety/carlito tation Ondansetron HCl Oral Tablet 4 MG aborted 2 RXNORM 1 table t Oral as needed PRN Give 1 table t by mouth every 8 hours as neede d for Nause a;Vom iting ;n 01/09 Nausea;Vomi ting;n Bisacodyl Rectal Suppository [place] [address] 9 RXNORM 1 suppo sitor y Rectal one time only One Time Only Inser t 1 suppo sitor y recta lly one time only for Const ipati on for 1 Day 12/13 Constipatio n Spikevax Intramuscul ar Suspension Prefilled Syringe 50 MCG/0.[place] [address] 17 RXNORM 0.5 ml Intram uscula r every day shift Routin e Injec t 0.5 ml intra muscu larly every day shift for vacci ne for 1 Day 12/17 vaccine Antifungal External Powder 2 % aborted n/a n/a Topica l every shift Routin e Apply to genit al area topic ally every shift for itchi ng/re dness 01/09 itching/red ness Vistaril Oral Capsule 25 MG aborted 09066 5 RXNORM 1 capsu le Oral as needed PRN Give 1 capsu le by mouth every 12 hours as neede d for itchi ng 12/22 itching Vistaril Oral Capsule [place] [address] 5 RXNORM 1 capsu le Oral as needed PRN Give 1 capsu le by mouth every 12 hours as neede d for itchi ng for 14 Days 01/05 itching busPIRone HCl Oral Tablet 7.5 MG aborted 69433 1 RXNORM 1 table t Oral two times a day Routin e Give 1 table t by mouth two times a day for anxie ty/ag itati on until 01/09 23:59 AND Give 1 table t by mouth one time a day for anxie ty/ag itati on for 7 Days 01/09 anxiety/carlito tation 15520 1 RXNORM 1 table t Oral one time a day Routin e Give 1 table t by mouth two times a day for anxie ty/ag itati on until 01/09 23:59 AND Give 1 table t by mouth one time a day for anxie ty/ag itati on for 7 Days 01/09 anxiety/carlito tation Mental Status Section Date Assessment Total Score Description 11/25/2024 BIMS 06 severe cognitiv e impairment CAM 0 No delirium ind icated PHQ-9 00 Insurance Providers Plan of Treatment Section Interventions Intervention Code Code System Display Name Proposed D ate Problems Problem # Description Date of onset Resolved Date Code CodeSystem Concern Status 1 UNSPECIFIED PROTEIN-CALORIE MALNUTRITION 12/03/[address] active 2 ESSENTIAL (PRIMARY) HYPERTENSION 11/21/[address] active 3 ANEMIA, UNSPECIFIED 11/18/[address] active 4 ATTENTION-DEFICIT HYPERACTIVITY DISORDER, PREDOMINANTLY INATTENTIVE TYPE 11/18/[address] active 5 AUTISTIC DISORDER 11/18/[address] active 6 BENIGN PROSTATIC HYPERPLASIA WITH LOWER URINARY TRACT SYMPTOMS 11/18/[address] active 7 CHRONIC KIDNEY DISEASE, STAGE 3 UNSPECIFIED 11/18/[address] active 8 DIAPHRAGMATIC HERNIA WITHOUT OBSTRUCTION OR GANGRENE 11/18/[address] active 9 ENCOUNTER FOR OTHER ORTHOPEDIC AFTERCARE 11/18/[address] active 10 FRACTURE OF UNSPECIFIED PART OF RIGHT CLAVICLE, SUBSEQUENT ENCOUNTER FOR FRACTURE WITH ROUTINE HEALING 11/18/[address] active 11 HYPOTHYROIDISM, UNSPECIFIED 11/18/[address] active 12 MAJOR DEPRESSIVE DISORDER, RECURRENT, UNSPECIFIED 11/18/[address] active 13 MODERATE INTELLECTUAL DISABILITIES 11/18/[address] active 14 OBSESSIVE-COMPULSIV E DISORDER, UNSPECIFIED 11/18/[address] active 15 OTHER FRACTURE OF UPPER AND LOWER END OF RIGHT FIBULA, SUBSEQUENT ENCOUNTER FOR CLOSED FRACTURE WITH ROUTINE HEALING 11/18/[address] active 16 OTHER SEIZURES 11/18/[address] act nathalia 17 REPEATED FALLS 11/18/[address] ac tive 18 RETENTION OF URINE, UNSPECIFIED 11/18/[address] active 19 TUBEROUS SCLEROSIS 11/18/[address] active 20 UNSPECIFIED FRACTURE OF LOWER END OF RIGHT TIBIA, SUBSEQUENT ENCOUNTER FOR CLOSED FRACTURE WITH ROUTINE HEALING 11/18/[address] active 21 UNSPECIFIED PSYCHOSIS NOT DUE TO A SUBSTANCE OR KNOWN PHYSIOLOGICAL CONDITION 11/18/[address] active 22 WEDGE COMPRESSION FRACTURE OF T7-T8 VERTEBRA, SUBSEQUENT ENCOUNTER FOR FRACTURE WITH ROUTINE HEALING 11/18/[address] active 23 WEDGE COMPRESSION FRACTURE OF THIRD THORACIC VERTEBRA, SUBSEQUENT ENCOUNTER FOR FRACTURE WITH ROUTINE HEALING 11/18/[id number] active Reason for Referral No Reasons for Referral Entered Social History Social History Observation Description Start Date End Date Code Code System Current Smoking Status Tobacco smoking consumption unknown 474246475 SNOMED CT Sex Assigned At Male 1970 48105-8 [facility] Gender Identity Sexual Orientation Vital Signs Code Code System Vitals Name Values and Units Timing Information 9279-1 [facility] Respiratory Rate Value=18.0 Units=/m in 01/09/2025 8462-4 [facility] Blood Pressure-Diastolic Value=64 Un its=mmHg 01/09/2025 8480-6 [facility] Blood Pressure-Systolic Todnx=399 Un its=mmHg 01/09/2025 8310-5 [facility] Body Temperature Value=97.9 Units= F 01/09/2025 8867-4 [facility] Heart rate Value=69.0 Units=/min 12998-8 [facility] O2 % BldC Oximetry Dbmxl=227.0 Units =% 01/09/2025 39704-5 [facility] Pain Level Value=1.0 12/30/2024 54811-1 [facility] Weight Xaxhb=059.4 Units=Lbs 03/2024 8302-2 [facility] Height Value=68.0 Units=Inches 11/19/2024
[2025-01-11 13:01] LABS: Anion Gap 10.4; Blood Urea Nitrogen 24.0 mg/dL (7.0-18.0); Calcium 9.0 mg/dL (8.5-10.1); Carbon Dioxide 28.4 mmol/L (21.0-32.0); Chloride 105 mmol/L (98-107); Estimated GFR (African America >60 (>=60 mL/min/1.73m^2); Estimated GFR (Non-African Ame 50 (>=60 mL/min/1.73m^2); Glucose 93 mg/dL (74-106); Potassium 4.8 mmol/L (3.5-5.1); Sodium 139 mmol/L (136-145)
== END 2025-01-11 12:24 | disposition home or self-care (01) ==
LOC: LAB 12:25
PROVIDERS: PCP Family Medicine; Visit Provider Family Medicine
DX: N40.1 Benign prostatic hyperplasia with lower urinary tract symptoms (principal); R33.9 Retention of urine, unspecified; N18.30 Chronic kidney disease, stage 3 unspecified
CPT/HCPCS: 36415; 80048

== ENCOUNTER 2025-02-05 20:39 | Emergency (ER) | payer MEDICARE, MEDICAID, SELFPAY ==
--- OUTSIDE RECORDS SUMMARY | 2024-09-28 04:00 | XMS_ITS ---
Author Organization [facility] Address [address] [address] Care Team Providers Care Dobie Man Name Role Phone Dr. Panda Rivera Primary Care Provider [phone] Yolanda Harley [phone] REASON FOR VISIT FILLING Encounters Encounter Location Date Provider Diagnosis [facility] [address] [address] 09/28/2024 Yolanda Harley Plan Of Treatment Next Appt Details Provider Name:Saloni Montero, 07/2025 10:00:00 AM, [address], [place], [address], Provider Name:Saloni Montero, 10:00:00 AM, [address], [place], [address], Provider Name:Brianna Eduard , 05/30/2025 11:15:00 AM, [address], [place], [address], Progress Notes * ALETHEA LEI DDOB:1970 (55 yo M)Acc No.[id number]:09/28/2024 Patient:?ALETHEA LEI :?Yolanda HarleyDOB:1970???Age:54 Y???Sex:Male Date:09/28/2024Phone:[phone]:[address] [facility] [address], [place], [place]Kip:Dr. Panda Rivera Subjective: * Chief Complaints: * F ILLING * Electronic signature of Yolanda Harley DMD on 02/05/2025 at 09:06 PM ESTSign off status: Pending * Provider: Юлия Harley Date: 0 09/28/2024 Generated for Printing/Faxing/eTransmitting on:?02/05/2025 09:06 PM EST
--- OUTSIDE RECORDS SUMMARY | 2024-11-23 06:30 | XMS_ITS ---
Author Organization [facility] es Address [address] [address] Care Team Providers Care Supervisor Logging Name Role Phone Dr. Panda Rivera Primary Care Provider [phone] Carmela Montero Saloni Graham [phone] REASON FOR VISIT FILLING Encounters Encounter Location Date Provider Diagnosis [facility] [address] [place] [address] 11/23/2024 Saloni Montero Plan Of Treatment Next Appt Details Provider Name:Saloni Kylah, 07/2025 10:00:00 AM, [address] [place], [address], Provider Name:Saloni Yi, 10:00:00 AM, [address] [place], [address], Provider Name:Brianna Chapa , 05/30/2025 11:15:00 AM, [address] [place], [address], Progress Notes * ALETHEA LEI DDOB:1970 (55 yo M)Acc No.[id number]:11/23/2024 Patient:?ALETHEA LEI :?Saloni MonteroDOB:1970???Age:54 Y???Sex:MaleDate: 11/23/2024Phone:[phone]:[address], [place], [place] Pcp:Dr. Panda Rivera Subjective: * Chief Complaints: * F ILLING * Electronic signature of Saloni Montero , [id number] on 02/05/2025 at 09:05 PM ESTSign off status: Pending * Provider: Cortez Montero Date: Generated for Printing/Faxing/eTransmitting on:?02/05/2025 09:05 PM EST
--- OUTSIDE RECORDS SUMMARY | 2024-11-25 06:30 | XMS_ITS ---
Author Organization [facility] es Address [address] [address] Care Team Providers Care Concrete Sculptor Name Role Phone Dr. Panda Rivera Primary Care Provider [phone] Carmela Montero Saloni Graham [phone] REASON FOR VISIT FILLING Encounters Encounter Location Date Provider Diagnosis [facility] [address] [place] [address] 11/25/2024 Saloni Montero Plan Of Treatment Next Appt Details Provider Name:Saloni Kylah, 07/2025 10:00:00 AM, [address] [place], [address], Provider Name:Saloni Yi, 10:00:00 AM, [address], [place], [address], Provider Name:Brianna Chapa , 05/30/2025 11:15:00 AM, [address] [place], [address], Progress Notes * ALETHEA LEI DDOB:1970 (55 yo M)Acc No.[id number]:11/25/2024 Patient:?ALETHEA LEI :?Saloni MonteroDOB:1970???Age:54 Y???Sex:MaleDate: 11/25/2024Phone:[phone]:[address], [place], [place] Pcp:Dr. Panda Rivera Subjective: * Chief Complaints: * F ILLING * Electronic signature of Saloni Montero , [phone] on 02/05/2025 at 09:05 PM ESTSign off status: Pending * Provider: Cortez Montero Date: Generated for Printing/Faxing/eTransmitting on:?02/05/2025 09:05 PM EST
--- OUTSIDE RECORDS SUMMARY | 2024-11-29 05:40 | XMS_ITS ---
Author Organization [facility] Serv[facility] es Address [address] [address] Care Team Providers Care Director Of Restaurant Operations Name Role Phone Dr. Panda Rivera Primary Care Provider [phone] Brianna Serrato [phone] REASON FOR VISIT PROPHY Encounters Encounter Location Date Provider Diagnosis [facility] [address] [place] [address] 11/29/2024 Brianna Chapa Plan Of Treatment Next Appt Details Provider Name:Saloni Montero, 07/2025 10:00:00 AM, [address] [place], [address], Provider Name:Saloni Montero, 10:00:00 AM, [address], [place], [address], Provider Name:Brianna Chapa , 05/30/2025 11:15:00 AM, [address] [place], [address], Progress Notes * ALETHEA LEI DDOB:1970 (55 yo M)Acc No.[id number]:11/29/2024 Patient:?ALETHEA LEI :?Brianna ChapaDOB:1970???Age:54 Y???Sex:Male Date:11/29/2024Phone:[phone]:[address], [place] [address], [place]Uzf:Dr. Panda Rivera Subjective: * Chief Complaints: * P ROPHY * Electronic signature of Brianna Chapa on 02/05/2025 at 09:05 PM ESTSign off status: Pending * Provider: Roselyn Chapa Date: Generated for Printing/Faxing/eTransmitting on:?02/05/2025 09:05 PM EST
--- OUTSIDE RECORDS SUMMARY | 2025-01-26 11:40 | XMS_ITS | Encounter Summary ---
Author Organization [facility] Address [address] [place] [address] Care Team Providers Care Agent Licensing Clerk Name Role Phone Go Foster MD Primary Care Provider [phone] Sue Patrick DO Unavailable [phone] Reason for Visit * ReasonCommentsToenail CareNon dm nail care Encounter Details DateTypeDepartmentCare Team (Latest Contact Info)Aersyjzkptv85/04/2025 11:40 AM ESTProcedure Visit [facility] [address] [facility] [address] [place] [address] Glenn Flores, DPDoyle [address] [facility] [address] [place] [address] Lisfranc dislocation, left, initial encounter (Primary Dx); Pain due to onychomycosis of toenails of both feet Social History Tobacco UseTypesPacks/DayYears UsedDateSmoking Tobacco: NeverPassive Smoke Exposure: NeverSmokeless Tobacco: NeverAlcohol UseStandard Drinks/WeekComments Never0 (1 standard drink = 0.6 oz pure alcohol)Sex and Gender InformationValue Date RecordedSex Assigned at BirthNot on fileLegal EtcWcyw1805/07/2022 6:35 PM EDT Gender IdentityNot on fileSexual OrientationNot on filedocumented as of this encounter Last Filed Vital Signs Vital SignReadingTime TakenCommentsBlood Tjjdzaga042/8401/26/2025 11:21 AM EST Dsnce539401/26/2025 11:21 AM ESTTemperature--Respiratory Rate--Oxygen Saturation-- Inhaled Oxygen Concentration--Rfadmo14.9 kg (185 lb)01/26/2025 11:21 AM EST Cmkfld922.7 cm (5' 8 )01/26/2025 11:21 AM ESTBody Mass Index28.13103/29/2024 11:21 AM ESTdocumented in this encounter Progress Notes * Glenn Flores, DPM - 01/26/2025 11:40 AM EST Patient: Delano Segovia : 1970 PCP: Go Foster MD SUBJECTIVE Patient presents today for follow up of left Lisfranc fracture and has been in normal shoe gear with Positive improvement. Patient rates pain a 03/04. Patient denies any pain with weight-bearing Patient [...] flexion inversion eversion of left foot with negative pain on palpation to the left Lisfranc [...] aspect of the cuboid Xray: ASSESSMENT 1. Pain due to onychomycosis of toenails of both feet 2. Lisfranc dislocation, left, initial encounter PLAN Patient to continue with oral anti - inflammatories as needed for pain and recommended OTC medications such as tylenol or Ibuprofen Patient to continue with normal gear. Discussed proper foot care with patient today. Debride nails in length and thickness digits 1 through 10 Glenn Flores DPM documented in this encounter Plan of Treatment DateTypeDepartmentCare Team (Latest Contact Info)Efrdgypdqbl60/19/2026 11:30 AM ESTProcedure Visit [facility] [address] [facility] [address] [place] [phone] Glenn Flores DPM [address] [facility] [address] [place] [address] documented as of this encounter Visit Diagnoses Diagnosis Lisfranc dislocation, left, initial encounter- Primary Pain due to onychomycosis of toenails of both feet documented in this encounter Care Teams Team MemberRelationshipSpecialtyStart DateEnd Date Go Foster MD [facility] [address] [place] [address] PCP - GeneralFamily Puiugjyd20/17/24 Sue Patrick DO [address] [place] [address] Referring NjfxsxvhaPyonljctl88/17/24documented as of this encounter
[2025-02-05 20:49] VITALS: BP 133/78; PULSE 64; TEMP 36.6; O2SAT 100
--- NOTE | 2025-02-05 20:54 | ECG_ITS ---
[facility] Test Date: 2025-02-05 Pat Name: ALETHEA LEI Department: Room: - Gender: Male Lead Teller: : 1970 Requested By: [id number] Order Number: [id number] Reading MD: JOE SANDERS M.D. Measurements Intervals [place] Rate: 69 P: 57 TN: 158 QRS: 78 QRSD: 80 T: 72 QT: 416 QTc: 435 Interpretive Statements 1100 Sinus rhythm [address] elevation Abnormal ECG Compared to ECG 08/16/2024 17:33:39 ST (T wave) deviation now present Electronically Signed On 02-05-2025 22:56:26 EST by JOE SANDERS M.D.
--- NOTE | 2025-02-05 20:56 | XR_ITS ---
[facility] [place] [id number] Patient Name: ALETHEA LEI MRN: [id number] date: 1970 Sex: M Assigned Patient Location: ER Current Patient Location: Accession/Order Number: [id number] Exam Date: 02/05/2025 21:35 Report Date: 02/06/2025 09:31 At the request of: FRANKLYN ZELAYA DO Procedure: XR chest 1V PORTABLE AP RECUMBENT CHEST 2049 hours CLINICAL HISTORY: AMS COMPARISON: 08/16/2024 Patient is slightly rotated. The heart is top normal in size. There is no suspected vascular congestion. The lungs, as visualized, are clear. There is no effusion or obvious pneumothorax. The osseous structures are intact. There is mild endplate spurring. XR/XR chest 1V IMPRESSION: NO ACUTE FINDINGS Impression dictated by: Cheryl Altamirano M.D. 02/06/2025 9:31 AM Dictation Location: [facility]ITAL[facility]! [facility] Electronically authenticated by: [id number] Y Date: 02/06/2025 09:31
--- OUTSIDE RECORDS SUMMARY | 2025-02-05 21:05 | XMS_ITS | Encounter Summary ---
Author Organization [facility] Address [address] [place] [address] Care Team Providers Care Boilermaker Helper Name Role Phone Go Foster MD Primary Care Provider [phone] Sue Patrick DO Unavailable [phone] Encounter Details DateTypeDepartmentCare Team (Latest Contact Info)Kyvwoxytklv66/04/2025bstract [facility] [address] [place] [address] Glenn Flores DPM [address] [address] Social History Tobacco UseTypesPacks/DayYears UsedDateSmoking Tobacco: NeverPassive Smoke Exposure: NeverSmokeless Tobacco: NeverAlcohol UseStandard Drinks/WeekComments Never0 (1 standard drink = 0.6 oz pure alcohol)Sex and Gender InformationValue Date RecordedSex Assigned at BirthNot on fileLegal YzuAetv8905/07/2022 6:35 PM EDT Gender IdentityNot on fileSexual OrientationNot on filedocumented as of this encounter Plan of Treatment DateTypeDepartmentCare Team (Latest Contact Info)Gsqkrzxqhbg74/19/2026 11:30 AM ESTProcedure Visit [facility] [address] [place] [address] Glenn Flores, [place] [address] [address] documented as of this encounter Visit Diagnoses Not on filedocumented in this encounter Care Teams Team MemberRelationshipSpecialtyStart DateEnd Date Go Foster MD [address] [facility] [address] [place], [place] [id number] PCP - GeneralFamily Tzktcsqw64/17/24 Sue Patrick DO [address] [place] [address] Referring YpykanhykEaitjknhr17/17/24documented as of this encounter
--- OUTSIDE RECORDS SUMMARY | 2025-02-05 21:05 | XMS_ITS | Clinical Summary ---
Author Organization [facility] Address [address] [place] [address] Care Team Providers Care Welder Shielded Metal Arc Name Role Phone eDv Hein MD Unavailable Source Comments The following information is NOT included in Care Everywhere downloads:Psychiatric notes, ECG results, Cardiac Rehab notes, Pulmonary Function notes, data from SmartForms (includes but not limited toPregnancy data,audiograms, eye exams, pre-surgical evaluation notes, well-child exam data).[facility] Allergies Active AllergyReactionsCriticalityNoted DateCommentsAripiprazoleOtherMedium 02/01/2008 agressiveness Pertussis XkegaphOebiasn96/18/2017Pertussis Icsdnekd61/20/2008 Medications MedicationSigDispense QuantityRefillsLast FilledStart DateEnd DateStatus atorvastatin [...] mL by mouth daily. 300 mL 5Active PARoxetine (PAXIL) 30 MG tablet Take 2 Tablets by mouth at bedtime. 60 Tablet 5Active benztropine (COGENTIN) 1 MG tablet Take 1 Tablet by mouth 3 times daily. 90 Tablet 5Active aspirin EC 81 MG tablet Take 1 Tablet by mouth 2 times a day. 84 Tablet 5Active tamsulosin (FLOMAX) 0.4 MG capsule Take 0.4 mg by mouth daily.Active Sennosides (Senna) 8.6 MG CAPS Take by mouth.Active hydrOXYzine pamoate (Vistaril) 25 MG capsule Take 25 mg by mouth 3 times daily as needed for Itching.Active oxyCODONE (OXYIR) 5 MG capsule Take 5 mg by mouth every 6 hours as needed for Pain.Active Active Problems ProblemNoted DateDiagnosed DateDispl spiral fx shaft of r tibia, init for opn fx type I/Type I or II open fracture of right tibia and fibula, initial kdqeyqvqq42/21/2025Dental fpmgcp5601/01/2021 Overview (01/01/2021): Added automatically from request for surgery [id number] Encounters DateTypeDepartmentCare YnreBaabnyjqqbp64/05/2025 10:00 AM ESTOffice Visit [facility] [address] [place] [address] Sarah Amaya PA-C Displ spiral fx shaft of r tibia, init for opn fx type I/2 (Primary Dx) 12/28/2024 9:33 AM EST - 12/28/2024 11:59 PM ESTHospital Encounter [facility] [address] [place] [address] Displ spiral fx shaft of r tibia, init for opn fx type I/2 Discharge Disposition: HOV Thqppfykh25/14/2025 1:10 PM EDTAncillary Procedure [facility] Radiology [address] [place] [address] 12/06/2024 12:15 PM EDTAncillary Procedure [facility] Rad[facility] [address] [place] [address] 12/06/2024 11:30 AM EDTOffice Visit [facility] [address] [place] [address] Dev Hein MD Closed displaced fracture of right clavicle, unspecified part of clavicle, initial encounter (Primary Dx)12/01/2024Orders Only [facility] Orthopedic Hand [address] [place] [address] Jacqueline Encinas RN 11/30/2024 10:00 AM EDTOffice Visit [facility] [address] [place] [address] Sarah Amaya, PA-C Displ spiral fx shaft of r tibia, init for opn fx type I/2 (Primary Dx) 11/22/2024Telephone [facility] OR [address] [phone] Cj Henriquez DMD, MD 11/22/2024Telephone [facility] Oral Surgery [address] [place], [place] [phone] Assigned, To Be Referral Received?11/18/2024 4:54 PM EDT - 11/18/2024 11:59 PM EDTHospital Encounter [facility] Radiology [address] [place] [address] Daron Yip MD Discharge Disposition: HOV Bjgcwdqqi66/22/2025 7:41 AM EDTAnesthesia Event [facility] Main OR [address] [place], [place] [phone] Owen Sanders MD Schumacher, Brynn, HUMAN RESOURCES ADMINISTRATOR-INDUSTRIAL/ORGANIZATIONAL PSYCHOLOGIST 11/14/2024 7:37 AM EDT - 11/14/2024 10:49 AM EDTSurgery [facility] [address] [place] [address] Jose Truong MD REDUCTION, OPEN, TIBIA, INTRAMEDULLARY ROD11/14/2024 7:11 AM EDT - 11/14/2024 11:59 PM EDTHospital Encounter [facility] Radiology [address] [place] [address] Daron Yip MD Discharge Disposition: HOV Vupwnycec50/22/2025Scan Initial Department Assigned, To Be 1 scan: <No description>11/13/2024 10:05 AM EDT - 11/13/2024 11:59 PM EDT Hospital Encounter [facility] Radiology [address] [place] [address] Daron Yip MD Discharge Disposition: HOV Wowryswgn59/21/2025 8:52 AM EDT - 11/18/2024 9:15 [place] [address] Donnell Duncan MD Maluso, Patrick, MD Ladha, Prerna, MD Dental caries (Primary Dx); Displ spiral fx shaft of r tibia, init for opn fx type I/2; Fall, initial encounter; Intellectual disability; Type I or II open fracture of right tibia and fibula, initial encounter Discharge Disposition: Discharge to [facility] Jlbppxam12/21/2025E.D. Visit [facility] Social Work [address] [place], [place] [phone] Claudette Casarez LSW Trauma/complex Medical Cnzisgqut67/21/2025Travelfrom Last 3 Months Immunizations ImmunizationAdministration DatesNext DueInfluenza, injectable, quadrivalent, preservative (XOM=011)01/06/2017Influenza, injectable, quadrivalent, preservative free (FCC=846)12/19/2020,11/30/2019,12/17/2018,12/02/2017, 12/14/2014Influenza, novel T3F6-04, injectable, preservative-free (IVA=263) 01/10/2009Influenza, unspecified formulation (CVX=88)12/10/2023,12/10/2022, 12/11/2021Influenza, whole virus (CVX=16)01/07/2008,12/08/2006Pfizer Bivalent (12+ YRS) SARS-COV-2 (COVID-19) vaccine, mRNA, spike protein, LNP, pres. free, 30 mcg/0.3mL dose, syeda-sucrose (FCJ=182)2Pfizer Monovalent (12+ yrs) SARS-COV-2 (COVID-19) vaccine, mRNA, spike protein, LNP, pres. free, 30mcg/0.3mL dose (SZO=945)12/19/2020,03/27/2020,1Pfizer Monovalent (12+ yrs) SARS-COV-2 (COVID-19) vaccine, mRNA, spike protein, LNP, pres. free, 30mcg/0.3mL dose, syeda-sucrose (HVV=575)2Pneumococcal conjugate PCV21, polysaccharide YFN807 conjugate, PF (VHL=466)03/25/2024Td (adult), 2 Lf tetanus toxoid, preservative free, adsorbed (CVX=09)11/13/2024Td (adult), 5 Lf tetanus toxoid, preservative free, adsorbed (ZVO=051)07/12/2015,06/25/2005Zoster Recombinant (RZV,Shingles) (GRS=446)06/06/2024,03/25/2024 Social History Tobacco UseTypesPacks/DayYears UsedDateSmoking Tobacco: Never AssessedSex and Gender InformationValueDate RecordedSex Assigned at BirthNot on fileLegal Sex Male03/01/2019 1:46 PM ESTGender IdentityNot on fileSexual OrientationNot on file Last Filed Vital Signs Vital SignReadingTime TakenCommentsBlood Towglpmp198/70011/18/2024 1:49 PM EDT Vppqv9059 1:49 PM SEXNfzkwspmgst91.8 ??C (98.2 ??F)11/18/2024 1:49 PM EDTRespiratory Ntvz125711/18/2024 1:49 PM EDTOxygen Mocugkapxg18%11/18/2024 1:49 PM EDTInhaled Oxygen Concentration--Iygkcw36.5 kg (195 lb)01/25/2021 9:15 AM EST Bygbkm218.7 cm (5' 8 )11/15/2024 7:00 AM EDTBody Mass Index-- Plan of Treatment DateTypeDepartmentCare Team (Latest Contact Info)Xinljlwzypb38/19/2025 10:30 AM ESTOffice Visit [facility] Surgery [address] [place] [address] Blas Vergara, DMD [address] [facility] [place], [place] [phone] 03/01/2025 11:00 AM ESTOffice Visit [facility] [address] [place], [place] [phone] Sarah Amaya PA-C [address] [place] [address] [phone] 04/20/2025 10:00 AM ESTOffice Visit [facility] Dentistry [address] [place] [address] Jessica Wade, PÉREZ [address] [place], [place] [phone] Health MaintenanceDue DateLast ExkcGutsudkkPyeoqtemcic1968Hepatitis C Xvefwnwj68/18/1986Tdap Nciwtfg7901/10/1986Hepatitis A (HAV) Vaccine (optional start 19+ years)01/10/1987Hepatitis B (HBV) Vaccine (1 of 3 - 19+ 3-dose series) 01/10/1987Annual Wellness Visit (G0438)02/23/1997FIT01/10/2013COVID-19 Vaccine ( season)51, 06/26/2021, 12/19/2020, Additional history existsInfluenza Vaccine (#1)51, 12/10/2022, 12/11/2021, Additional history existsCRC Bzhjjbxic61/21/2026Cologuard (Stool DNA)612/1021Ejvgifablft05/17/203006/Pneumococcal Vaccine(s) (50+ yrs)Txxjbpesy47/31/2025Shingles (RZV) MhzcwlbHwqkdkkkr19/14/2025, 03/25/2024HIV SojmYfhrcugyr84/21/2025 Medical Devices ImplantedTypeAreaManufacturerDevice IdentifierShelf Expiration DateModel / Serial / LotCap End 15mm Strl Ea1 04.045.865s - [id number] Implanted:Qty: 1 on 11/14/2024 by Jose Truong MD at INPATIENT DEPARTMENTS ConnectorRight: TibiaJohnson & Xpxfwlg76.045.865S / / [id number] 10mm 330mm Tib Tn Adv Im Ea1 04.043.230s - [id number] Implanted:Qty: 1 on 11/14/2024 by Jose Truong MD at INPATIENT DEPARTMENTS Nail Rods & PinsRight: TibiaJohnson & Ojqftyq69/28/894515.043.230S / / [id number] Prof Lckng Scr 50 34 Xl25 S [id number] Implanted:Qty: 1 on 11/14/2024 by Jose Truong MD at INPATIENT DEPARTMENTS ScrewRight: ZinmpQnknmkd17/30/203004.045.334TS / / [id number] Prof Lckng Scr 50 34 Xl25 S [id number] Implanted:Qty: 1 on 11/14/2024 by Jose Truong MD at INPATIENT DEPARTMENTS ScrewRight: PfmceTzrqlbl95/30/203004.045.334TS / / [id number] Prof Lckng Scr 50 50 Xl25 S [id number] Implanted:Qty: 1 on 11/14/2024 by Jose Truong MD at INPATIENT DEPARTMENTS ScrewRight: PypauBbupfbe72/31/203004.045.350TS / / [id number] Prof Lckng Scr 50 44 Xl25 S [id number] Implanted:Qty: 1 on 11/14/2024 by Jose Truong MD at INPATIENT DEPARTMENTS ScrewRight: FuplyQiosrib40/31/203004.045.344TS / / [id number] Screw For Im Nail Xl25 Sterile 5mm X 36mm Implanted:Qty: 1 on 11/14/2024 by Jose Truong MD at INPATIENT DEPARTMENTS ScrewRight: LwlmcIkqqseg16/30/203004.045.036TS / / [id number]fyopfSnagsa IdentifierShelf Expiration DateModel / Serial / LotWire 3.2 X 400mm Guide Ea1 357.399 - [id number] Explanted:Qty: 2 on 11/14/2024 by Jose Truong MD at INPATIENT DEPARTMENTS Right: TibiaSaurabhramirez & Hocbyuh833.399 / / Procedures Procedure NamePriorityDate/TimeAssociated DiagnosisCommentsXR TIBIA RIGHT 2 UOCFHYviymfa00/05/2025 10:11 AM EST Displ spiral fx shaft of r tibia, init for opn fx type I/2 XR TIBIA RIGHT 2 MQGSLJgcelyy05/14/2025 11:44 AM EDT Displ spiral fx shaft of r tibia, init for opn fx type I/2 XR CLAVICLE RIGHT 2 CCLOMPqncykr22/14/2025 11:43 AM EDT Closed displaced fracture of right clavicle, unspecified part of clavicle, initial encounter XR T-SPINE 3 CVLXJYZHH39/26/2025 5:14 PM EDT CVHEBVISUIDyrweod42/25/2025 6:57 AM EDT WIVINBEHCUpphcwa71/25/2025 6:57 AM EDT COMPLETE BLOOD ZZRFWUvahcpr23/25/2025 6:57 AM EDT BASIC METABOLIC XBIEILtjlmab02/25/2025 6:57 AM EDT RXKPRPOhehqdb28/24/2025 10:43 AM EDT OSMOLALITY, VEBFLUxmtoee45/24/2025 10:43 AM EDT SODIUM, RANDOM DZSGNQekwgtc98/24/2025 10:43 AM EDT COMPLETE BLOOD BJZTBClwklxe73/24/2025 1:35 AM EDT REXYBIZNPOLtcqrut37/24/2025 1:35 AM EDT VCHYVJUHXJpdljht59/24/2025 1:35 AM EDT BASIC METABOLIC KPMYUBvsiesu19/24/2025 1:35 AM EDT LICSCWYQCVWkiryey65/23/2025 2:32 AM EDT FAYPAYLARKuukwxd71/23/2025 2:32 AM EDT BASIC METABOLIC CRSMGXgbfcph40/23/2025 2:32 AM EDT COMPLETE BLOOD EZOOGCsifvum29/23/2025 2:32 AM EDT XR FLUORO SUPPORT ONLY [...] tibia, init for opn fx type I/2 GWTJGZELGZZRFS07/22/2025 6:29 AM EDT UGMIKNOEJYTQH21/22/2025 6:29 AM EDT PARTIAL THROMBOPLASTIN UYOVWOZN70/22/2025 6:29 AM EDT PROTHROMBIN TIME AND JDXFYIF4511/14/2024 6:29 AM EDT COMPLETE BLOOD TYZYDJGWD23/22/2025 6:29 AM EDT BASIC METABOLIC CLRYNEFKE64/22/2025 6:29 AM EDT XR CLAVICLE RIGHT 2 HTIJLTOHH43/21/2025 9:25 PM EDT EKG 12 LEAD - CBWSBAQMhkcken80/21/2025 4:53 PM EDT CONFIRMATION ABO/XJJAGS7811/13/2024 2:[address] TIBIA RIGHT W/O CNPOGNXCNLMP10/21/2025 2:21 PM EDT XR TIBIA RIGHT 2 XYISVKYVD14/21/2025 1:58 PM EDT XR FOOT LEFT 3 SYSUOCJXI43/21/2025 10:09 AM EDT XR KNEE RT ANY 4 OR MORE CCBJRCCCG34/21/2025 10:09 AM EDT XR ANKLE RIGHT 3 BOJKMLFSV70/21/2025 10:09 AM EDT XR KNEE RIGHT AP+LAT 2 JTVRDLrpqlzb46/21/2025 10:[address] T-SPINE/L-SPINE W/O BYVHTVSIOFIA23/21/2025 9:[address] CHEST/ABD/PELVIS W/ SDHDGEDEQZHM97/21/2025 9:[address] C-SPINE W/O NDHGKUFCBZED85/21/2025 9:[address] HEAD W/O GAXTPJSLNLMP75/21/2025 9:37 AM EDT XRAY RIGHT LOWER EXTREMITY IMG IMPORT(KEYUR)STAT11/13/2024 9:14 AM EDTLACTIC ACID STAT11/13/2024 9:05 AM EDT CBC WITH VSWZTSBORELBXJXB89/21/2025 9:04 AM EDT HIV1 HIV2 AGAB HMBUQOZL40/21/2025 9:04 AM EDT TYPE AND KNVUYXCMWO43/21/2025 9:04 AM EDT PROTHROMBIN TIME AND NWEWWRS8511/13/2024 9:04 AM EDT BASIC METABOLIC FHDUSDOGV56/21/2025 9:04 AM EDT PARTIAL THROMBOPLASTIN IIKCEWSK98/21/2025 9:04 AM EDT ALCOHOL (ETHANOL), PJEDCVDEM28/21/2025 9:04 AM EDT COMPLETE BLOOD COUNT W/AYVSDOLY56/21/2025 9:04 AM EDT from Last 3 Months [...] ORDERING PROVIDER: SARAH AMAYA TECHNOLOGISTS NOTE: COMPARISON: XR TIBIA RIGHT 2 [...] ORDERING PROVIDER: SARAH AMAYA TECHNRILEY NOTE: COMPARISON: XR TIBIA RIGHT 2 VIEWS [...] Right clavicle MACRO: None Authorizing ProviderResult TypeResult Status[facility]iol[facility] PA-CEC DIAGNOSTIC X-RAYFinal Result * XR T-SPINE [...] MACRO: None Authorizing ProviderResult TypeResult StatusKimberly Glover HUMAN RESOURCES ADMINISTRATOR-CNPEC DIAGNOSTIC X-RAYFinal Result * (ABNORMAL) BASIC METABOLIC PANEL (11/17/2024 6:57 AM EDT)ComponentValueRef RangeTest MethodAnalysis TimePerformed AtPathologist FirxcpsqaPexgcvf965(H)74 - 109 mg/dL11/17/2024 7:29 [facility] YDFFBMWMVGHzkiwl020655 - 145 mmol/L11/17/2024 7:29 AM [facility] LABORATORYPotassium4.03.5 - 5.0 mmol/L11/17/2024 7:29 AM [facility] LABORATORYCarbon Dftbtvk7628 - 31 mmol/L11/17/2024 7:29 AM [facility] XOJTTXXJXYLjnfymme185(H)98 - 107 mmol/L11/17/2024 7:29 AM [facility] LABORATORYBlood Urea Ehqrwuwj276 - 25 mg/dL11/17/2024 7:29 AM [facility] PATHOLOG[facility] LABORATORYCreatinine1.49(H)0.70 - 1.30 mg/dL11/17/2024 7:29 AM [facility] PATH[facility] LABORATORYCalcium9.08.6 - 10.3 mg/dL11/17/2024 7:29 AM [facility] PATHOLOG[facility] LABORATORYAnion Ggw5426 - 20 11/17/2024 7:29 AM [facility] PATHOLOGY LABORATORYEstimated GFR (CKD-EPI)55(L)>=60 mL/min/1.10ymo6911/17/2024 7:29 AM [facility] PATHOLOGY LABORATORYComment: 2020 CKD EPI Equation using [...] Med 2021 Vol. 385 Issue 19 Pages 6343-9223 Specimen (Source)Anatomical Location / LateralityCollection Method / Volume Collection TimeReceived TimeBloodBLOOD SPECIMEN / UnknownVenipuncture / Unknown 11/17/2024 6:57 AM EDT11/17/2024 7:02 AM EDT Narrative Authorizing ProviderResult TypeResult StatusKatbenjamin Leosic HUMAN RESOURCES ADMINISTRATOR-CNP98 GENERAL LAB Final ResultPerforming OrganizationAddressCity/State/ZIP CodePhone Number [facility]OR[facility] [address] [place] [address] * (ABNORMAL) COMPLETE BLOOD COUNT (11/17/2024 6:57 AM EDT)ComponentValueRef RangeTest MethodAnalysis TimePerformed AtPathologist SignatureWBC8.64.5 - 11.5 K/uL11/17/2024 7:09 AM [facility] PATHOLOGY LABORATORYRBC2.86(L)4.50 - 5.90 M/uL 11/17/2024 7:09 AM [facility] PATHOLOGY LABORATORYHemoglobin9.8(L)13.9 - 16.3 g/dL11/17/2024 7:09 AM [facility] PATHOLOG[facility] RUITHYYGWICxwcwfeoee52.3(L)41.0 - 53.0 %11/17/2024 7:09 AM [facility] PATH[facility] OSQILLQXCNZHK3931 - 100 fL11/17/2024 7:09 AM [facility] PATH[facility] QQPYLRGTXGBZQ48.2(H)26.0 - 34.0 pg11/17/2024 7:09 AM EDT [facility] IQECECXCTZBWYM05.532.0 - 35.9 g/dL11/17/2024 7:09 AM [facility] PATH[facility] HQARYBAFOQPtbvlfwy363310 - 400 K/uL11/17/2024 7:09 AM [facility] PATHOLOGY LABORATORYRDW-CV13.311.5 - 14.5 %11/17/2024 7:09 AM [facility] PATHOLOGY LABORATORYMPV8.47.5 - 11.2 fL11/17/2024 7:09 AM [facility] PATH[facility] LABORATORY Specimen (Source)Anatomical Location / LateralityCollection Method / Volume Collection TimeReceived TimeBloodBLOOD SPECIMEN / UnknownVenipuncture / Zjghtwr5511/17/2024 6:57 AM EDT11/17/2024 7:02 AM EDT Narrative Authorizing ProviderResult TypeResult StatusKatie Mucic HUMAN RESOURCES ADMINISTRATOR-CNP98 GENERAL LAB Final ResultPerforming OrganizationAddressty/State/ZIP CodePhone Number [facility] [address] [place] [phone] * PHOSPHORUS (11/17/2024 6:57 AM EDT)ComponentValueRef RangeTest MethodAnalysis TimePerformed AtPathologist SignaturePhosphorus, Serum3.02.5 - 5.0 mg/dL 11/17/2024 7:29 AM [facility] PATHOLOGY LABORATORYSpecimen (Source)Anatomical Location / LateralityCollection Method / VolumeCollection TimeReceived Time BloodBLOOD SPECIMEN / UnknownVenipuncture / Vhoxpkw9711/17/2024 6:57 AM EDT 11/17/2024 7:02 AM EDT Narrative Authorizing ProviderResult TypeResult StatusKatie Mucic HUMAN RESOURCES ADMINISTRATOR-CNP98 GENERAL LAB Final ResultPerforming OrganizationAddressCity/State/ZIP CodePhone Number [facility] [address] [place] [address] * (ABNORMAL) MAGNESIUM (11/17/2024 6:57 AM EDT)ComponentValueRef RangeTest MethodAnalysis TimePerformed AtPathologist SignatureMagnesium1.7(L)1.9 - 2.7 mg/dL11/17/2024 7:29 AM [facility] LABORATORYSpecimen (Source)Anatomical Location / LateralityCollection Method / VolumeCollection TimeReceived Time BloodBLOOD SPECIMEN / UnknownVenipuncture / Mhlqmjh2811/17/2024 6:57 AM EDT 11/17/2024 7:02 AM EDT Narrative Authorizing ProviderResult TypeResult StatusKatbenjamin Leosic HUMAN RESOURCES ADMINISTRATOR-CNP98 GENERAL LAB Final ResultPerforming OrganizationAddressCity/State/ZIP CodePhone Number [facility] [address] [place], [place] * SODIUM, RANDOM URINE (11/16/2024 10:43 AM EDT)ComponentValueRef RangeTest MethodAnalysis TimePerformed AtPathologist SignatureSodium, Rgprt28hxwb/L 11/16/2024 11:06 AM [facility] LABORATORYSpecimen (Source)Anatomical Location / LateralityCollection Method / VolumeCollection TimeReceived Time UrineURINE SPECIMEN / Jwieigy7411/16/2024 10:43 AM EDT11/16/2024 10:59 AM EDT Narrative Authorizing ProviderResult TypeResult StatusCorin Leosic HUMAN RESOURCES ADMINISTRATOR-CNP98 GENERAL LAB Final ResultPerforming OrganizationAddressCity/State/ZIP CodePhone Number [facility] [address] [place] [address] * (ABNORMAL) SODIUM (11/16/2024 10:43 AM EDT)ComponentValueRef RangeTest Method Analysis TimePerformed AtPathologist MtnwnictmIsgkiq763(H)136 - 145 mmol/L 11/16/2024 11:12 AM [facility] LABORATORYSpecimen (Source)Anatomical Location / LateralityCollection Method / VolumeCollection TimeReceived Time BloodBLOOD SPECIMEN / UnknownVenipuncture / Mnbopfw4711/16/2024 10:43 AM EDT 11/16/2024 10:59 AM EDT Narrative Authorizing ProviderResult TypeResult StatusKatie Mucic HUMAN RESOURCES ADMINISTRATOR-CNP98 GENERAL LAB Final ResultPerforming OrganizationAddressCity/State/ZIP CodePhone Number [facility] [address] [place] [address] * OSMOLALITY, URINE (11/16/2024 10:43 AM EDT)ComponentValueRef RangeTest Method Analysis TimePerformed AtPathologist SignatureOsmolality, Ycghx71873 - 1,400 mOsm/Kg11/16/2024 11:32 AM [facility] PATHOLOGY LABORATORYSpecimen (Source) Anatomical Location / LateralityCollection Method / VolumeCollection Time Received TimeUrineURINE SPECIMEN / Vqrgehc6011/16/2024 10:43 AM EDT11/16/2024 10:59 AM EDT Narrative Authorizing ProviderResult TypeResult StatusKatie Mucic HUMAN RESOURCES ADMINISTRATOR-CNP98 GENERAL LAB Final ResultPerforming OrganizationAddressCity/State/ZIP CodePhone Number [facility] [address] [place] [phone] * (ABNORMAL) BASIC METABOLIC PANEL (11/16/2024 1:35 AM EDT)ComponentValueRef RangeTest MethodAnalysis TimePerformed AtPathologist OwwzrjoopVnofmua436(H)74 - 109 mg/dL11/16/2024 3:00 AM [facility] PSNVOXLXXAAqrowf655(H)136 - 145 mmol/L11/16/2024 3:00 AM [facility] PATH[facility] LABORATORYPotassium4.13.5 - 5.0 mmol/L11/16/2024 3:00 AM [facility] PATH[facility] LABORATORYCarbon Dtkugvt9049 - 31 mmol/L11/16/2024 3:00 AM [facility] FRQHIEWQMMJzbukdac579(H)98 - 107 mmol/L11/16/2024 3:00 AM [facility] PATHOLOGY LABORATORYBlood Urea Msijtens329 - 25 mg/dL11/16/2024 3:00 AM [facility] PATHOLOGY LABORATORYCreatinine1.69(H)0.70 - 1.30 mg/dL11/16/2024 3:00 AM [facility] PATHOLOGY LABORATORYCalcium9.18.6 - 10.3 mg/dL11/16/2024 3:00 AM [facility] PATHOLOGY LABORATORYAnion Zsp3774 - 20 11/16/2024 3:00 AM [facility] PATHOLOGY LABORATORYEstimated GFR (CKD-EPI)47(L)>=60 mL/min/1.85tpu4911/16/2024 3:00 AM [facility] PATHOLOGY LABORATORYComment: 2020 CKD EPI Equation using [...] Med 1 Vol. 385 Issue 19 Pages 1114-7446 Specimen (Source)Anatomical Location / LateralityCollection Method / Volume Collection TimeReceived TimeBloodBLOOD SPECIMEN / UnknownVenipuncture / Unknown 11/16/2024 1:35 AM EDT11/16/2024 2:46 AM EDT Narrative Authorizing ProviderResult TypeResult StatusHoney Lau MD98 GENERAL LABFinal ResultPerforming OrganizationAddressCity/State/ZIP CodePhone Number [facility] [address] [place] [phone] * (ABNORMAL) COMPLETE BLOOD COUNT (11/16/2024 1:35 AM EDT)ComponentValueRef RangeTest MethodAnalysis TimePerformed AtPathologist SignatureWBC9.24.5 - 11.5 K/uL11/16/2024 2:44 AM [facility] PATHOLOGY LABORATORYRBC2.75(L)4.50 - 5.90 M/uL 11/16/2024 2:44 AM [facility] PATHOLOGY LABORATORYHemoglobin9.4(L)13.9 - 16.3 g/dL 11/16/2024 2:44 AM [facility] PATH[facility] QXURWJYYMGVpaulfqrxj56.0(L)41.0 - 53.0 % 11/16/2024 2:44 AM [facility] PATH[facility] JGMOUYGETNPIS7208 - 100 fL11/16/2024 2:44 AM [facility] PATH[facility] ZEQTRQHCGIHBH76.4(H)26.0 - 34.0 pg11/16/2024 2:44 AM EDT [facility] DUTBTKMGOTKWAJ11.032.0 - 35.9 g/dL11/16/2024 2:44 AM [facility] PATHOLOGY LALFIAVUSSVkngqtyf569322 - 400 K/uL11/16/2024 2:44 AM [facility] PATHOLOGY LABORATORYRDW-CV13.511.5 - 14.5 %11/16/2024 2:44 AM [facility] PATHOLOGY LABORATORYMPV8.57.5 - 11.2 fL11/16/2024 2:44 AM [facility] PATH[facility] LABORATORY Specimen (Source)Anatomical Location / LateralityCollection Method / Volume Collection TimeReceived TimeBloodBLOOD SPECIMEN / UnknownVenipuncture / Jryaexd4011/16/2024 1:35 AM EDT11/16/2024 2:06 AM EDT Narrative Authorizing ProviderResult TypeResult StatusHoney Lau MD98 GENERAL LABFinal ResultPerforming OrganizationAddressCity/State/ZIP CodePhone Number [facility]ORATORY [address] [place] [phone] * PHOSPHORUS (11/16/2024 1:35 AM EDT)ComponentValueRef RangeTest MethodAnalysis TimePerformed AtPathologist SignaturePhosphorus, Serum3.12.5 - 5.0 mg/dL 11/16/2024 3:00 AM [facility] LABORATORYSpecimen (Source)Anatomical Location / LateralityCollection Method / VolumeCollection TimeReceived Time BloodBLOOD SPECIMEN / UnknownVenipuncture / Rvwpdrg2711/16/2024 1:35 AM EDT 11/16/2024 2:46 AM EDT Narrative Authorizing ProviderResult TypeResult Alberto VENCES GENERAL LABFinal ResultPerforming OrganizationAddressty/State/ZIP CodePhone Number [facility] [address] [place] [phone] * (ABNORMAL) MAGNESIUM (11/16/2024 1:35 AM EDT)ComponentValueRef RangeTest MethodAnalysis TimePerformed AtPathologist SignatureMagnesium1.8(L)1.9 - 2.7 mg/dL11/16/2024 3:00 AM [facility] PATHOLOGY LABORATORYSpecimen (Source)Anatomical Location / LateralityCollection Method / VolumeCollection TimeReceived Time BloodBLOOD SPECIMEN / UnknownVenipuncture / Atsblxs1911/16/2024 1:35 AM EDT 11/16/2024 2:46 AM EDT Narrative Authorizing ProviderResult TypeResult StatusYolandekate Lau MD98 GENERAL LABFinal ResultPerforming OrganizationAddressCity/State/ZIP CodePhone Number [facility] [address] [place] [address] * (ABNORMAL) BASIC METABOLIC PANEL (11/15/2024 2:32 AM EDT)ComponentValueRef RangeTest MethodAnalysis TimePerformed AtPathologist ZzljevatsMrrhumk827(H)74 - 109 mg/dL11/15/2024 3:17 AM [facility] PATH[facility] WUIVYUAXPTIajzwz634(H)136 - 145 mmol/L11/15/2024 3:17 AM [facility] PATHOLOG[facility] LABORATORYPotassium4.63.5 - 5.0 mmol/L11/15/2024 3:17 AM [facility] PATHOLOGY LABORATORYCarbon Jkxvdwz1112 - 31 mmol/L11/15/2024 3:17 AM [facility] PATHOLOGY YNLVUHPGHWHqzpnosb784(H)98 - 107 mmol/L11/15/2024 3:17 AM [facility] PATHOLOGY LABORATORYBlood Urea Ylhayiri89(H)7 - 25 mg/dL11/15/2024 3:17 AM [facility] PATHOLOGY LABORATORYCreatinine1.85(H)0.70 - 1.30 mg/dL11/15/2024 3:17 AM [facility] PATHOLOGY LABORATORYCalcium8.88.6 - 10.3 mg/dL11/15/2024 3:17 AM [facility] PATHOLOGY LABORATORYAnion Hye8592 - 20 11/15/2024 3:17 AM [facility] PATHOLOGY LABORATORYEstimated GFR (CKD-EPI)42(L)>=60 mL/min/1.06vne6911/15/2024 3:17 AM [facility] PATHOLOGY LABORATORYComment: 2020 CKD EPI Equation using [...] Med 1 Vol. 385 Issue 19 Pages 3453-8902 Specimen (Source)Anatomical Location / LateralityCollection Method / Volume Collection TimeReceived TimeBloodBLOOD SPECIMEN / UnknownVenipuncture / Unknown 11/15/2024 2:32 AM EDT11/15/2024 2:35 AM EDT Narrative Authorizing ProviderResult TypeResult StatusKimberly Glover HUMAN RESOURCES ADMINISTRATOR-CNP98 GENERAL LAB Final ResultPerforming OrganizationAddressCity/State/ZIP CodePhone Number [facility] [address] [place] [address] * (ABNORMAL) COMPLETE BLOOD COUNT (11/15/2024 2:32 AM EDT)ComponentValueRef RangeTest MethodAnalysis TimePerformed AtPathologist SignatureWBC9.74.5 - 11.5 K/uL11/15/2024 2:51 AM [facility] PATHOLOGY LABORATORYRBC3.25(L)4.50 - 5.90 M/uL 11/15/2024 2:51 AM [facility] PATHOLOGY LQQUGZFQFTAcuwbowoab16.7(L)13.9 - 16.3 g/dL11/15/2024 2:51 AM [facility] PATHOLOGY QHACOSWZQURxcjeofcho28.5(L)41.0 - 53.0 %11/15/2024 2:51 AM [facility] PATH[facility] ENHEIRNKOSHMO97939 - 100 fL11/15/2024 2:51 AM [facility] PATH[facility] PGHIABJHWNOWP14.826.0 - 34.0 pg11/15/2024 2:51 AM EDT [facility] XVXEBUZFCHMBDH09.832.0 - 35.9 g/dL11/15/2024 2:51 AM [facility] PATHOLOGY DVXSKFLRCXGnrtjzgf462761 - 400 K/uL11/15/2024 2:51 AM [facility] PATHOLOGY LABORATORYRDW-CV13.611.5 - 14.5 %11/15/2024 2:51 AM [facility] PATHOLOGY LABORATORYMPV8.07.5 - 11.2 fL11/15/2024 2:51 AM [facility] Specimen (Source)Anatomical Location / LateralityCollection Method / Volume Collection TimeReceived TimeBloodBLOOD SPECIMEN / UnknownVenipuncture / Kcakaxd54/ 2:32 AM EDT11/15/2024 2:35 AM EDT Narrative Authorizing ProviderResult TypeResult StatusEvanmelinda Adalberto LONDONO-CNP98 GENERAL LAB Final ResultPerforming OrganizationAddressCity/State/ZIP CodePhone Number [facility] [address] [place] [phone] * PHOSPHORUS (11/15/2024 2:32 AM EDT)ComponentValueRef RangeTest MethodAnalysis TimePerformed AtPathologist SignaturePhosphorus, Serum3.12.5 - 5.0 mg/dL 11/15/2024 3:12 AM [facility] LABORATORYSpecimen (Source)Anatomical Location / LateralityCollection Method / VolumeCollection TimeReceived Time BloodBLOOD SPECIMEN / UnknownVenipuncture / Sqtngdx6211/15/2024 2:32 AM EDT 11/15/2024 2:35 AM EDT Narrative Authorizing ProviderResult TypeResult StatusKimberly Glover APRN-CNP98 GENERAL LAB Final ResultPerforming OrganizationAddressCity/State/ZIP CodePhone Number [facility] [address] [place] [phone] * MAGNESIUM (11/15/2024 2:32 AM EDT)ComponentValueRef RangeTest MethodAnalysis TimePerformed AtPathologist SignatureMagnesium2.01.9 - 2.7 mg/dL11/15/2024 3:12 AM [facility] PATHOLOGY LABORATORYSpecimen (Source)Anatomical Location / LateralityCollection Method / VolumeCollection TimeReceived TimeBloodBLOOD SPECIMEN / UnknownVenipuncture / Flyzjdh3811/15/2024 2:32 AM EDT11/15/2024 2:35 AM EDT Narrative Authorizing ProviderResult TypeResult JudyKimberly Glover APRN-CNP98 GENERAL LAB Final ResultPerforming OrganizationAddressCity/State/ZIP CodePhone Number [facility] [address] [place] [phone] * XR FLUORO SUPPORT ONLY IN SURGERY (KEYUR) (11/14/2024 10:07 AM EDT)Specimen (Source)Anatomical Location / LateralityCollection Method / VolumeCollection TimeReceived Time Narrative Authorizing ProviderResult TypeResult Tracie CASSIDY DIAGNOSTIC X-RAY Final Result * (ABNORMAL) BASIC METABOLIC PANEL (11/14/2024 6:29 AM EDT)ComponentValueRef RangeTest MethodAnalysis TimePerformed AtPathologist RgeffvjfcOsubrsu75095 - 109 mg/dL11/14/2024 7:03 AM [facility] PATHOLOGY GRJBTFGDEKNcqxzw851350 - 145 mmol/L11/14/2024 7:03 AM [facility] PATHOLOGY LABORATORYPotassium4.43.5 - 5.0 mmol/L11/14/2024 7:03 AM [facility] PATHOLOGY LABORATORYCarbon Rldcpuw7256 - 31 mmol/L11/14/2024 7:03 AM [facility] PATHOLOG[facility] NHNYKOHMEWPpsjcuhg595(H)98 - 107 mmol/L11/14/2024 7:03 AM [facility] PATHOLOGY LABORATORYBlood Urea Clyngipd67(H)7 - 25 mg/dL11/14/2024 7:03 AM [facility] PATHOLOGY LABORATORYCreatinine1.81(H)0.70 - 1.30 mg/dL11/14/2024 7:03 AM [facility] PATHOLOGY LABORATORYCalcium8.78.6 - 10.3 mg/dL11/14/2024 7:03 AM [facility] PATHOLOGY LABORATORYAnion Lgj8479 - 20 11/14/2024 7:03 AM [facility] PATHOLOGY LABORATORYEstimated GFR (CKD-EPI)43(L)>=60 mL/min/1.34nqu8311/14/2024 7:03 AM [facility] PATHOLOGY LABORATORYComment: 2020 CKD EPI Equation using [...] Med 1 Vol. 385 Issue 19 Pages 1032-8156 Specimen (Source)Anatomical Location / LateralityCollection Method / Volume Collection TimeReceived TimeBloodBLOOD SPECIMEN / UnknownVenipuncture / Unknown 11/14/2024 6:29 AM EDT11/14/2024 6:36 AM EDT Narrative Authorizing ProviderResult TypeResult StatusKimberly Glover HUMAN RESOURCES ADMINISTRATOR-CNP98 GENERAL LAB Final ResultPerforming OrganizationAddressCity/State/ZIP CodePhone Number [facility] [address] [place] [phone] * (ABNORMAL) PROTHROMBIN TIME AND INR (11/14/2024 6:29 AM EDT)ComponentValueRef RangeTest MethodAnalysis TimePerformed AtPathologist KmmyzhiyhBssntbp97.4(H) 9.7 - 12.9 sec11/14/2024 7:15 AM [facility] PATHOLOGY LABORATORYINR1.20(H)0.90 - 1.10011/14/2024 7:15 AM [facility] PATHOLOGY LABORATORYSpecimen (Source)Anatomical Location / LateralityCollection Method / VolumeCollection TimeReceived Time BloodBLOOD SPECIMEN / UnknownVenipuncture / Bpxfguq0211/14/2024 6:29 AM EDT 11/14/2024 6:36 AM EDT Narrative Authorizing ProviderResult TypeResult StatusKimberly Glover APRN-CNP98 GENERAL LAB Final ResultPerforming OrganizationAddressCity/State/ZIP CodePhone Number [facility] [address] [place] [phone] * (ABNORMAL) COMPLETE BLOOD COUNT (11/14/2024 6:29 AM EDT)ComponentValueRef RangeTest MethodAnalysis TimePerformed AtPathologist SignatureWBC6.74.5 - 11.5 K/uL11/14/2024 6:41 AM [facility] PATHOLOGY LABORATORYRBC3.33(L)4.50 - 5.90 M/uL 11/14/2024 6:41 AM [facility] PATHOLOGY DKQOPZTHZYLcaavnarce96.4(L)13.9 - 16.3 g/dL11/14/2024 6:41 AM [facility] PATHOLOGY CKZKCHHCKUNgzpfwksxu70.6(L)41.0 - 53.0 %11/14/2024 6:41 AM [facility] PATHOLOGY LTFVHMSUKAMWN7476 - 100 fL11/14/2024 6:41 AM [facility] PATHOLOG[facility] AADJXKFHMKLOL16.3(H)26.0 - 34.0 pg11/14/2024 6:41 AM EDT [facility] NDTFVMAMZZLCVO13.032.0 - 35.9 g/dL11/14/2024 6:41 AM [facility] PATHOLOGY GAANBIHQUVWrqoxcha064184 - 400 K/uL11/14/2024 6:41 AM [facility] PATHOLOGY LABORATORYRDW-CV13.211.5 - 14.5 %11/14/2024 6:41 AM [facility] PATHOLOGY LABORATORYMPV8.47.5 - 11.2 fL11/14/2024 6:41 AM [facility] Specimen (Source)Anatomical Location / LateralityCollection Method / Volume Collection TimeReceived TimeBloodBLOOD SPECIMEN / UnknownVenipuncture / Iydbooj7811/14/2024 6:29 AM EDT11/14/2024 6:36 AM EDT Narrative Authorizing ProviderResult TypeResult StatusKimberly Glover APRN-CNP98 GENERAL LAB Final ResultPerforming OrganizationAddressCity/State/ZIP CodePhone Number [facility] [address] [place] [phone] * PARTIAL THROMBOPLASTIN TIME (11/14/2024 6:29 AM EDT)ComponentValueRef Range Test MethodAnalysis TimePerformed AtPathologist XajvodmzkhOEA8179 - 37 sec 11/14/2024 7:15 AM [facility] PATHOLOGY LABORATORYSpecimen (Source)Anatomical Location / LateralityCollection Method / VolumeCollection TimeReceived Time BloodBLOOD SPECIMEN / UnknownVenipuncture / Jwawxxj7411/14/2024 6:29 AM EDT 11/14/2024 6:36 AM EDT Narrative Authorizing ProviderResult TypeResult StatusKimberly Glover APRN-CNP98 GENERAL LAB Final ResultPerforming OrganizationAddressty/State/ZIP CodePhone Number [facility] [address] [place] [phone] * PHOSPHORUS (11/14/2024 6:29 AM EDT)ComponentValueRef RangeTest MethodAnalysis TimePerformed AtPathologist SignaturePhosphorus, Serum4.02.5 - 5.0 mg/dL 11/14/2024 7:03 AM [facility] PATHOLOGY LABORATORYSpecimen (Source)Anatomical Location / LateralityCollection Method / VolumeCollection TimeReceived Time BloodBLOOD SPECIMEN / UnknownVenipuncture / Ylxmxdz1911/14/2024 6:29 AM EDT 11/14/2024 6:36 AM EDT Narrative Authorizing ProviderResult TypeResult StatusKimberly Glover HUMAN RESOURCES ADMINISTRATOR-CNP98 GENERAL LAB Final ResultPerforming OrganizationAddressCity/State/ZIP CodePhone Number [facility] [address] [place] [phone] * MAGNESIUM (11/14/2024 6:29 AM EDT)ComponentValueRef RangeTest MethodAnalysis TimePerformed AtPathologist SignatureMagnesium2.11.9 - 2.7 mg/dL11/14/2024 7:03 AM [facility] PATHOLOGY LABORATORYSpecimen (Source)Anatomical Location / LateralityCollection Method / VolumeCollection TimeReceived TimeBloodBLOOD SPECIMEN / UnknownVenipuncture / Lmufiro4211/14/2024 6:29 AM EDT11/14/2024 6:36 AM EDT Narrative Authorizing ProviderResult TypeResult Megan Glover HUMAN RESOURCES ADMINISTRATOR-CNP98 GENERAL LAB Final ResultPerforming OrganizationAddressCity/State/ZIP CodePhone Number [facility] [address] [place] [phone] * XR CLAVICLE RIGHT 2 VIEWS (11/13/2024 9:25 PM EDT)Anatomical RegionLaterality ModalityXR Right Upper Extremity, ClavicleRightComputed RadiographySpecimen (Source)Anatomical Location / LateralityCollection Method / VolumeCollection TimeReceived Time11/13/2024 9:31 PM EDT Narrative 11/13/2024 9:33 PM EDT EXAMINATION: XR CLAVICLE RIGHT 2 VIEWSPRO/RT 11/13/2024 09:25 PM CLINICAL HISTORY: fracture ASSOCIATED DIAGNOSIS: ORDERING PROVIDER: INGA SHELTON TECHNRILEY NOTE: COMPARISON: None IMPRESSION: Displaced fracture of [...] clavicle MACRO: None Authorizing ProviderResult TypeResult StatusInga CASSIDY DIAGNOSTIC X-RAY Final Result * EKG 12 LEAD - PERFORM (11/13/2024 4:53 PM EDT)ComponentValueRef RangeTest MethodAnalysis TimePerformed AtPathologist SignatureVentricular xyym48IGZXYCD Atrial Damu84VRHLBPWS-T Spkafhse920voDEDDGXY zzcfwzqx01kgKHPXB-C pvjukwtc402mg MUSEQTC CALCULATION(BEZET)445msMUSEP bsly88pdaimutEKGCP qxbe0hwpzswrUNPEG axis 10degreesMUSEDiagnosisNormal sinus rhythm Minimal voltage criteria for LVH, may be normal variant ( R in aVL ) Borderline No previous ECGs available Confirmed by JEANMARIE MIDDLETON ([id number]) on 11/14/2024 2:07:39 PM MUSESpecimen (Source)Anatomical Location / LateralityCollection Method / Volume Collection TimeReceived Time11/13/2024 4:53 PM EDT11/14/2024 2:07 PM EDT Narrative Authorizing ProviderResult TypeResult StatusKimberly Glover APRN-CADEN VITAL SIGN ORDERSEdited Result - FinalPerforming OrganizationAddressCity/State/ZIP Code Phone Number [id number] [place] [address] * CONFIRMATION ABO/RH (11/13/2024 2:58 PM EDT)ComponentValueRef RangeTest Method Analysis TimePerformed AtPathologist SignatureABO Rh TypeA Dfsargwm24/21/2025 3:54 PM [facility] PATHOLOGY LABORATORYSpecimen Expiration [id number] 11/13/2024 3:54 PM [facility] LABORATORYABO Rh/Amairani/TXRX HistoryA Iekkyxwy04/21/2025 3:54 PM [facility] LABORATORYSpecimen (Source) Anatomical Location / LateralityCollection Method / VolumeCollection Time Received TimeBloodBLOOD SPECIMEN / UnknownVenipuncture / Cddidnr4611/13/2024 2:58 PM EDT11/13/2024 3:30 PM EDT Narrative Authorizing ProviderResult TypeResult StatusKimberley CASSIDY BLOOD BANKFinal Result Performing OrganizationAddressCity/State/ZIP CodePhone Number [facility] [address] [place] [address] * CT TIBIA RIGHT W/O CONTRAST (11/13/2024 2:21 PM EDT)ComponentValueRef Range Test MethodAnalysis TimePerformed AtPathologist SignatureCTDI VOL31.6 (mGy) RADIOLOGYPHANTOM TYPEIEC Head Dosimetry PhantomRADIOLOGYCT JLY3737.5 (mGy.cm) RADIOLOGYCT SeriesLower legRADIOLOGYAnatomical RegionLateralityModalityCT Right Lower Extremity, Lower LegRightComputed TomographySpecimen (Source) Anatomical Location / LateralityCollection Method / VolumeCollection Time Received Time11/13/2024 4:21 PM EDT Narrative 11/13/2024 5:53 PM EDT EXAMINATION: CT TIBIA RIGHT W/O CONTRASTPRO/RT 11/13/2024 02:21 PM CLINICAL HISTORY: post splint ASSOCIATED DIAGNOSIS: post splint ORDERING PROVIDER: INGA SHELTON TECHNRILEY NOTE: COMPARISON: XR TIBIA RIGHT 2 VIEWS [...] with the resident's interpretation. Authorizing ProviderResult TypeResult StatusInga CASSIDY CT SCANFinal Result * XR TIBIA RIGHT 2 VIEWS (11/13/2024 1:58 PM EDT)Anatomical RegionLaterality ModalityXR Right Lower Extremity, Lower LegRightComputed RadiographySpecimen (Source)Anatomical Location / LateralityCollection Method / VolumeCollection TimeReceived Time11/13/2024 2:12 PM EDT Narrative 11/13/2024 2:12 PM EDT EXAMINATION: XR TIBIA RIGHT 2 VIEWSPRO/RT 11/13/2024 01:58 PM CLINICAL HISTORY: post splint ASSOCIATED DIAGNOSIS: ORDERING PROVIDER: INGA SHELTON TECHNRILEY [...] post splint ASSOCIATED DIAGNOSIS: ORDERING PROVIDER: INGA MIDDLETON NOTE: [...] and tenderness ASSOCIATED DIAGNOSIS: ORDERING PROVIDER: KIMBERLEY WEST TECHNRILEY NOTE: COMPARISON: None IMPRESSION: No definite acute [...] and tenderness ASSOCIATED DIAGNOSIS: ORDERING PROVIDER: KIMBERLEY WEST TECHNRILEY NOTE: COMPARISON: None IMPRESSION: No definite acute left foot fracture or dislocation is identified. Thereis internal fixation of the left distal fibula. Degenerative changes ofthe midfoot and hindfoot. Sclerosis about the second metatarsal base mayrelate to a remote process versus summation artifact from overlyingstructures. Correlate with focal tenderness. Dorsal soft tissue swelling.No radiopaque foreign bodies. Left foot MACRO: None Authorizing ProviderResult TypeResult StatusKimberley CASSIDY DIAGNOSTIC X-RAYFinal Result * XR ANKLE [...] Right ankle MACRO: None Authorizing ProviderResult TypeResult StatusIan Vickey CASSIDY DIAGNOSTIC X-RAY Final Result * XR [...] examination has been reordered as accession number [id number] Narrative 11/13/2024 10:16 AM EDT EXAMINATION: XR [...] Right knee MACRO: None Authorizing ProviderResult TypeResult StatusIan Vickey CASSIDY DIAGNOSTIC X-RAY Final Result * CT [...] MethodAnalysis TimePerformed AtPathologist SignatureCTDI VOL13.1 (mGy),12.3 (mGy)RADIOLOGYPHANTOM TYPEIEC Body Dosimetry Phantom,IEC Body Dosimetry PhantomRADIOLOGYCT IKC4302.9 (mGy.cm)RADIOLOGYCT SeriesEntire body,Entire bodyRADIOLOGYAnatomical RegionLateralityModalityCT BodyN/AComputed TomographySpecimen (Source)Anatomical Location / LateralityCollection Method / VolumeCollection TimeReceived Time11/13/2024 9:58 AM EDT Narrative 11/13/2024 10:56 AM EDT EXAMINATION: CT CHEST/ABD/PELVIS W/ CONTRASTPRO 11/13/2024 09:37 AM CLINICAL HISTORY: Trauma; 54 M, fall w/ open RLE fxs ASSOCIATED DIAGNOSIS: Trauma 54 M, fall w/ open RLE fxs ORDERING PROVIDER: KIMBERLEY WEST TECHNOLOGISTS NOTE: COMPARISON: None TECHNIQUE: Contiguous axial [...] StatusKimberley CASSIDY CT SCANFinal Result * CT C-SPINE [...] TYPEIEC Head Dosimetry Phantom,IEC Head Dosimetry PhantomRADIOLOGYCT VEH7776.5 (mGy.cm)RADIOLOGYCT SeriesHead,HeadRADIOLOGY Anatomical RegionLateralityModalityCT Head, HeadN/AComputed TomographySpecimen [...] TypeResult StatusKimberley CASSIDY CT SCANFinal Result * XRAY RIGHT LOWER EXTREMITY IMG IMPORT(KEYUR) (11/13/2024 9:14 AM EDT)Specimen (Source)Anatomical Location / LateralityCollection Method / VolumeCollection TimeReceived Time Narrative Authorizing ProviderResult TypeResult StatusKimberley West MDEC DIAGNOSTIC X-RAYFinal Result * (ABNORMAL) LACTIC ACID (11/13/2024 9:05 AM EDT)ComponentValueRef RangeTest MethodAnalysis TimePerformed AtPathologist SignatureLactate2.5(H)0.5 - 1.6 mmol/L11/13/2024 9:33 AM [facility] PATHOLOGY LABORATORYSpecimen (Source) Anatomical Location / LateralityCollection Method / VolumeCollection Time Received TimeBloodBLOOD SPECIMEN / UnknownVenipuncture / Uigvxnq0711/13/2024 9:05 AM EDT11/13/2024 9:25 AM EDT Narrative [facility] - 11/13/2024 9:33 AM EDT This test was developed, and its performance characteristics determined by the Department of Pathology of [facility]. It has not been cleared or approved by the FDA. This test is used for clinical purposes only. Authorizing ProviderResult TypeResult StatusKimberley West MD98 GENERAL LABFinal ResultPerforming OrganizationAddressCity/State/ZIP CodePhone Number [facility] [address] [place] [phone] * (ABNORMAL) CBC WITH DIFFERENTIAL (11/13/2024 9:04 AM EDT)ComponentValueRef RangeTest MethodAnalysis TimePerformed AtPathologist DkwxkqdnlHDL04.0(H)4.5 - 11.5 K/uL11/13/2024 9:48 AM [facility] PATHOLOGY LABORATORYRBC3.83(L)4.50 - 5.90 M/uL11/13/2024 9:48 AM [facility] PATHOLOG[facility] ORVKKTVJSIHamtqblemy33.7(L)13.9 - 16.3 g/dL11/13/2024 9:48 AM [facility] PATHOLOGY FRABDYQYBTVeeihcwtxw24.0(L)41.0 - 53.0 %11/13/2024 9:48 AM [facility] PATH[facility] KWCTDNNLFKMIX4148 - 100 fL11/13/2024 9:48 AM [facility] PATH[facility] FYNXJTDYMTDNQ63.226.0 - 34.0 pg11/13/2024 9:48 AM [facility] PATHOLOG[facility] KOXHRJZWUERLFY70.432.0 - 35.9 g/dL11/13/2024 9:48 AM [facility] PATHOLOGY PAUHZGCDKFVqrnoyte710010 - 400 K/11/13/2024 9:48 AM [facility] PATHOLOGY LABORATORYRDW-CV13.711.5 - 14.5 %11/13/2024 9:48 AM [facility] PATHOLOGY LABORATORYMPV8.47.5 - 11.2 fL11/13/2024 9:48 AM [facility] LABOR[facility]ORY Ucixfplrvmg31.0(H)31.0 - 76.0 %11/13/2024 9:48 AM [facility]ORY Neutrophil #11.07(H)1.50 - 8.00 K/11/13/2024 9:48 AM [facility] PATHOLOGY LABORATORYLymphocytes5.6(L)24.0 - 44.0 %11/13/2024 9:48 AM [facility] PATHOLOGY LABORATORYLymphocytes #0.73(L)1.00 - 4.80 K/11/13/2024 9:48 AM [facility] PATHOLOGY LABORATORYMonocytes9.12.0 - 11.0 %11/13/2024 9:48 AM [facility] PATHOLOGY LABORATORYMonocyte #1.18(H)0.20 - 1.00 K/11/13/2024 9:48 AM [facility] PATHOLOGY LABORATORYEosinophil0.10.1 - 4.0 %11/13/2024 9:48 AM [facility] PATHOLOGY LABORATORYEosinophil #0.010.00 - 0.70 K/11/13/2024 9:48 AM [facility] PATHOLOGY LABORATORYBasophils0.3<=1.9 %11/13/2024 9:48 AM [facility] PATHOLOGY LABORATORYBasophil #0.030.00 - 0.20 K/11/13/2024 9:48 AM [facility] PATHOLOGY AXXPAYVGKPAOR80<= 9:48 AM [facility] PATHOLOGY LABORATORYSpecimen (Source)Anatomical Location / LateralityCollection Method / VolumeCollection TimeReceived TimeBloodBLOOD SPECIMEN / UnknownVenipuncture / Sxvjrsu5711/13/2024 9:04 AM EDT11/13/2024 9:28 AM EDT Narrative Authorizing ProviderResult TypeResult Hema CASSIDY LAB ORDER ONLYFinal ResultPerforming OrganizationAddressCity/State/ZIP CodePhone Number [facility] [address] [place] [phone] * HIV1 HIV2 AGAB SCRN (11/13/2024 9:04 AM EDT)ComponentValueRef RangeTest Method Analysis TimePerformed AtPathologist SignatureHIV Ag-Ab ScreenNon-Reactive Non-Brztrwtq98/21/2025 11:30 AM [facility] PATHOLOGY LABORATORYComment:No laboratory evidence for HIV Infection. Negative result does not rule out acute HIV infection. Ifacute HIV infection is suspected, recommend ordering an HIV- 1 RNA quanitification test.Specimen (Source)Anatomical Location / Laterality Collection Method / VolumeCollection TimeReceived TimeBloodBLOOD SPECIMEN / UnknownVenipuncture / Utwwitb6111/13/2024 9:04 AM EDT11/13/2024 9:28 AM EDT Narrative [facility] - 11/13/2024 11:30 AM EDT HIV Information: ??[place] Rev. code 3701.243(E): This information has been [...] TypeResult Hema CASSIDY HIV/HEP/SYPH TESTING Final ResultPerforming OrganizationAddressCity/State/ZIP CodePhone Number [facility] [address] [place] [address] * (ABNORMAL) BASIC METABOLIC PANEL (11/13/2024 9:04 AM EDT)ComponentValueRef RangeTest MethodAnalysis TimePerformed AtPathologist YjiqkrkqiAayhzxi016(H)74 - 109 mg/dL11/13/2024 10:22 AM [facility] PATH[facility] IRJUWBRFCYXgdhpe469947 - 145 mmol/L11/13/2024 10:22 AM [facility] PATHOLOGY LABORATORYPotassium4.63.5 - 5.0 mmol/L11/13/2024 10:22 AM [facility] PATHOLOGY LABORATORYCarbon Dfiifzz3295 - 31 mmol/L11/13/2024 10:22 AM [facility] PATH[facility] OBYHDFSZAJVtiutsjv974(H)98 - 107 mmol/L11/13/2024 10:22 AM [facility] PATHOLOGY LABORATORYBlood Urea Qfrnylpv81(H)7 - 25 mg/dL11/13/2024 10:22 AM [facility] PATHOLOGY LABORATORYCreatinine2.03(H) 0.70 - 1.30 mg/dL11/13/2024 10:22 AM [facility] PATHOLOGY LABORATORYCalcium8.98.6 - 10.3 mg/dL11/13/2024 10:22 AM [facility] PATH[facility] LABOR[facility]ORYAnion Itw8094 - 20 11/13/2024 10:22 AM [facility] PATH[facility] LABORATORYEstimated GFR (CKD-EPI)38(L) >=60 mL/min/1.49fvt2711/13/2024 10:22 AM [facility] PATHOLOGY LABORATORYComment: 2020 CKD EPI Equation using [...] Med 2021 Vol. 385 Issue 19 Pages 8397-1622 Specimen (Source)Anatomical Location / LateralityCollection Method / Volume Collection TimeReceived TimeBloodBLOOD SPECIMEN / UnknownVenipuncture / Unknown 11/13/2024 9:04 AM EDT11/13/2024 9:28 AM EDT Narrative Authorizing ProviderResult TypeResult StatusAli Jenna [facility] LABFinal ResultPerforming OrganizationAddressCity/State/ZIP CodePhone Number [facility] [address] [place] [phone] * TYPE AND SCREEN (11/13/2024 9:04 AM EDT)ComponentValueRef RangeTest Method Analysis TimePerformed AtPathologist SignatureABO Rh TypeA Rygimjyp37/21/2025 11:17 AM [facility] PATH[facility] LABORATORYAb Screen CnlfceCwmvxyhb72/21/2025 11:17 AM [facility] LABORATORYSpecimen Expiration Hrpf8391710610436248/21/2025 11:17 AM [facility] PATHOLOGY LABORATORYABO Rh/Amairani/TXRX HistoryA Positive 11/13/2024 11:17 AM [facility] PATHOLOGY LABORATORYSpecimen (Source)Anatomical Location / LateralityCollection Method / VolumeCollection TimeReceived Time BloodBLOOD SPECIMEN / UnknownVenipuncture / Iqbvitf6911/13/2024 9:04 AM EDT 11/13/2024 9:56 AM EDT Narrative Authorizing ProviderResult TypeResult StatusKimberley CASSIDY BLOOD BANKFinal Result Performing OrganizationAddressCity/State/ZIP CodePhone Number [facility] [address] [place] [address] * (ABNORMAL) PROTHROMBIN TIME AND INR (11/13/2024 9:04 AM EDT)ComponentValueRef RangeTest MethodAnalysis TimePerformed AtPathologist YqbubxiggGfqhomc38.59.7 - 12.9 sec11/13/2024 10:16 AM [facility] PATHOLOGY LABORATORYINR1.12(H)0.90 - 1.10 11/13/2024 10:16 AM [facility] PATHOLOGY LABORATORYSpecimen (Source)Anatomical Location / LateralityCollection Method / VolumeCollection TimeReceived Time BloodBLOOD SPECIMEN / UnknownVenipuncture / Guvjjsj8811/13/2024 9:04 AM EDT 11/13/2024 9:28 AM EDT Narrative Authorizing ProviderResult TypeResult StatusKimberley VENCES GENERAL LABFinal ResultPerforming OrganizationAddressCity/State/ZIP CodePhone Number [facility] [address] [place] [address] * (ABNORMAL) PARTIAL THROMBOPLASTIN TIME (11/13/2024 9:04 AM EDT)ComponentValue Ref RangeTest MethodAnalysis TimePerformed AtPathologist SignatureaPTT<21(L)25 - 37 sec11/13/2024 10:27 AM [facility] PATHOLOGY LABORATORYSpecimen (Source) Anatomical Location / LateralityCollection Method / VolumeCollection Time Received TimeBloodBLOOD SPECIMEN / UnknownVenipuncture / Kxbqxcn6611/13/2024 9:04 AM EDT11/13/2024 9:28 AM EDT Narrative Authorizing ProviderResult TypeResult StatusKimberley VENCES GENERAL LABFinal ResultPerforming OrganizationAddressCity/State/ZIP CodePhone Number [facility] [address] [place] [address] * ALCOHOL (ETHANOL), BLOOD (11/13/2024 9:04 AM EDT)ComponentValueRef RangeTest MethodAnalysis TimePerformed AtPathologist SignatureEthanol<10None Detected mg/dL11/13/2024 10:22 AM [facility] PATHOLOGY LABORATORYSpecimen (Source) Anatomical Location / LateralityCollection Method / VolumeCollection Time Received TimeBloodBLOOD SPECIMEN / UnknownVenipuncture / Hhxknhx6511/13/2024 9:04 AM EDT11/13/2024 9:28 AM EDT Narrative Authorizing ProviderResult TypeResult StatusKimberley [facility] LABFinal ResultPerforming OrganizationAddressCity/State/ZIP CodePhone Number [facility] [address] [place] [address] from Last 3 Months Insurance * Guarantor: Christina Segovia TypeRelation to PatientDate of BirthPhoneBilling TxrriliLitbilkihrxgzJlbw1970 [phone] [place] [address] Advance Directives * Full Code (Latest Code Status on File) Date ActivatedDate InactivatedComments11/13/2024 3:19 PM11/18/2024 11:15 PM QuestionAnswerCommentsDocumentation of decision process for this code status:* Patient and surrogate unable or unavailable to discuss.?? There is no previous documentation of code status.?? Defaulting to Full Code Care Teams Team MemberRelationshipSpecialtyStart DateEnd Date Dev Hein MD [address] [place] [address] ObnhknkmsAjmkuxaxngzf61/6/25
--- OUTSIDE RECORDS SUMMARY | 2025-02-05 21:05 | XMS_ITS | Encounter Summary ---
Author Organization [facility] Address [address] [place] [address] Care Team Providers Care Investigator Fraud Name Role Phone Go Foster MD Primary Care Provider Sue Patrick DO Unavailable [phone] Encounter Details DateTypeDepartmentCare Team (Latest Contact Info)Irijuwisnxl96/04/2025amboo flowsheet [facility] [address] [place] [address] Glenn Flores DPM [address] [address] Social History Tobacco UseTypesPacks/DayYears UsedDateSmoking Tobacco: NeverPassive Smoke Exposure: NeverSmokeless Tobacco: NeverAlcohol UseStandard Drinks/WeekComments Never0 (1 standard drink = 0.6 oz pure alcohol)Sex and Gender InformationValue Date RecordedSex Assigned at BirthNot on fileLegal DrbDbzn7705/07/2022 6:35 PM EDT Gender IdentityNot on fileSexual OrientationNot on filedocumented as of this encounter Plan of Treatment DateTypeDepartmentCare Team (Latest Contact Info)Gjvrrzpcvhu35/19/2026 11:30 AM ESTProcedure Visit [facility] [address] [place] [address] Glenn Flores DPM [address] [address] documented as of this encounter Visit Diagnoses Not on filedocumented in this encounter Care Teams Team MemberRelationshipSpecialtyStart DateEnd Date Go Foster MD [address] [place] [address] PCP - GeneralFamily Adfpnwak34/17/24 Sue Patrick DO [address] [place] [address] Referring EsgsppryxJfkpivymn95/17/24documented as of this encounter
--- OUTSIDE RECORDS SUMMARY | 2025-02-05 21:06 | XMS_ITS | Clinical Summary ---
Author Organization [facility] tem Address [id number] [address] [place] [address] Care Team Providers Care Armoring Machine Operator Name Role Phone Go Foster Radhames OLIVO Primary Care Provider Social History Tobacco UseTypesPacks/DayYears UsedDateSmoking Tobacco: Never AssessedChildcare AnswerDate IuzwzmnpUeavlzydcVajrhdn01/12/2019EmploymentAnswerDate Recorded BironwefqeLlkxqdm23/12/2019Purpose - LifeAnswerDate RecordedPurpose and direction in vvndKarzwxx37/11/2021Sex and Gender InformationValueDate Recorded Sex Assigned at BirthNot on fileLegal XsbBuue6307/17/2016 12:50 PM EDTGender IdentityNot on fileSexual OrientationNot on file Plan of Treatment Not on file Medical Devices Not on file Insurance Care Teams Team MemberRelationshipSpecialtyStart DateEnd Date Go Foster DO [address] [place] [address] [facility]07/17/16
--- OUTSIDE RECORDS SUMMARY | 2025-02-05 21:06 | XMS_ITS | Encounter Summary ---
Author Organization [facility] Address [address] [place] [address] Care Team Providers Care Environmental Field Technician Name Role Phone Go Foster MD Primary Care Provider [phone] Sue Patrick DO Unavailable [phone] Encounter Details DateTypeDepartmentCare Team (Latest Contact Info)Hzgntseezlw02/04/2025Travel Social History Tobacco UseTypesPacks/DayYears UsedDateSmoking Tobacco: NeverPassive Smoke Exposure: NeverSmokeless Tobacco: NeverAlcohol UseStandard Drinks/WeekComments Never0 (1 standard drink = 0.6 oz pure alcohol)Sex and Gender InformationValue Date RecordedSex Assigned at BirthNot on fileLegal FoqPnon7105/07/2022 6:35 PM EDT Gender IdentityNot on fileSexual OrientationNot on filedocumented as of this encounter Plan of Treatment DateTypeDepartmentCare Team (Latest Contact Info)Xcpxqnwlqya31/19/2026 11:30 AM ESTProcedure Visit [facility] [address] [facility] [address] [place] [address] Glenn Flores DPM 3[address] [facility] [address] [place] [address] documented as of this encounter Visit Diagnoses Not on filedocumented in this encounter Care Teams Team MemberRelationshipSpecialtyStart DateEnd Date Go Foster MD [facility] [employer] [address] [place] [address] PCP - GeneralFamily Owhxbtkh27/17/24 Sue Patrick DO [address] [place] [address] Referring HbfxzgxrfRxygdsquj90/17/24documented as of this encounter
--- OUTSIDE RECORDS SUMMARY | 2025-02-05 21:06 | XMS_ITS | Clinical Summary ---
Author Organization [facility] Address [address] [place] [address] Care Team Providers Care Sign Builder Name Role Phone Go Foster MD Primary Care Provider Sue Partick DO Unavailable [phone] Allergies Active AllergyReactionsCriticalityNoted DateCommentsPertussis VaccinesUnknown 02/05/2023 [...] tablet Take 100 mg by mouth at ghbkvbw2501/27/2023ctive meloxicam (Mobic) 15 MG tablet TAKE ONE [...] Daily02/03/2024ctive Active Problems ProblemNoted DateDiagnosed DateAlkaline phosphatase lpwclhkse65/18/2024Tuberous sclerosisMyofascial pain syndrome Overview (08/06/2023): Abdominal Wall or Pelvic Floor Seizure disorderBehavior disturbanceDisturbance of conductMental disability Overview (08/06/2023): Mental Retardation Back spasm Encounters DateTypeDepartmentCare OuxfVujjwpkdetp42/04/2025 11:40 AM ESTProcedure Visit [facility] [address] [facility] [address] [place] [address] Glenn Flores, DPM Lisfranc dislocation, left, initial encounter (Primary Dx); Pain due to onychomycosis of toenails of both feet01/26/2025bstract [facility] [address] [place] [address] Glenn Flores DPM 01/26/2025amboo flowsheet [facility] [address] [facility] [address] [place] [address] Glenn Flores DPM 01/26/2025Travelfrom Last 3 Months Family History RelationNameStatusCommentsFatherAliveMotherAlive Social History Tobacco UseTypesPacks/DayYears UsedDateSmoking Tobacco: NeverPassive Smoke Exposure: NeverSmokeless Tobacco: Never Tobacco Cessation:Counseling Given: Yes Alcohol UseStandard Drinks/WeekCommentsNever0 (1 standard drink = 0.6 oz pure alcohol)Sex and Gender InformationValueDate RecordedSex Assigned at BirthNot on fileLegal DifKkxj5705/07/2022 6:35 PM EDTGender IdentityNot on fileSexual OrientationNot on file Last Filed Vital Signs Vital SignReadingTime TakenCommentsBlood Vskxwkpr689/8401/26/2025 11:21 AM EST Ehjqj256601/26/2025 11:21 AM ESTTemperature--Respiratory Mzcx3215 11:42 AM EDTOxygen Obwvtvlnuh77%08/06/2023 9:00 AM EDTInhaled Oxygen Concentration-- Xqxtid50.9 kg (185 lb)01/26/2025 11:21 AM AMIFsjxqp960.7 cm (5' 8 )01/26/2025 11:21 AM ESTBody Mass Index28.13103/29/2024 11:21 AM EST Plan of Treatment DateTypeDepartmentCare Team (Latest Contact Info)Udtybkrrbda00/19/2026 11:30 AM ESTProcedure Visit [facility] [address] [facility] [address] [place] [address] Glenn Flores DPM 3006 [facility] [address] [place] [address] Health MaintenanceDue DateLast DoneCommentsCT Hurvfqnxcyss1968Colonoscopy 1968FIT1968FOBT1970 6179Lumfdufwqzejp1968COVID-19 Vaccine ( season)512/01/2024, 12/10/2022, 06/26/2021, Additional history existsInfluenza Vaccine (#1)/, 12/10/2022, 12/11/2021, Additional history existsColorectal Cancer Ugwiznqsl81/21/2026 FIT-DNAneumococcal Vaccine: Pediatrics (0 to 5 Years) and At-Risk Patients (6 to 64 Years)Aged OutNo longer eligible based on patient's age to complete this topic Insurance Care Teams Team MemberRelationshipSpecialtyStart DateEnd Date Go Foster MD [address] [facility] [address] [place] [address] PCP - GeneralFamily Lrrzufdu64/17/24 Sue Patrick DO [address] [place] [address] Referring PegawtkcmTrrnjdbpx23/17/24
--- OUTSIDE RECORDS SUMMARY | 2025-02-05 21:06 | XMS_ITS | Clinical Summary ---
Author Organization [facility] Address [address] [place] [address] Care Team Providers Care Genetic Coordinator Name Role Phone Go Foster DO Primary Care Provider Allergies Active AllergyReactionsCriticalityNoted DateCommentsPertussis Vaccine,Fluid Inhrnfpp21/18/2017 Medications MedicationSigDispense QuantityRefillsLast FilledStart DateEnd DateStatus alendronate (FOSAMAX) 70 mg oral tablet Take 70 mg by mouth once a week. On ThursdayActive benztropine (COGENTIN) 1 mg oral tablet Take 1 mg by mouth 3 times daily.Active clonIDINE (CATAPRES) 0.1 mg oral tablet Take 0.1 mg by mouth 3 times daily.Active docusate sodium (COLACE) 100 mg oral capsule Take 100 mg by mouth 3 times daily.Active fluocinonide (FLUOCINONIDE) 0.05 % topical solution Apply 1 Application to affected area. Taking once weeklyActive haloperidol (HALDOL) 5 mg oral tablet Take 5 mg by mouth. 3 tablets in Morning & 2 tablets in evening & 3 tablets at bedtimeActive levothyroxine 100 mcg oral tablet Take 100 mcg by mouth once daily. At bedtime; taken with one 50mcg tablet for a total of 150mcgActive levothyroxine 50 mcg oral tablet Take 50 mcg by mouth once daily. Taken at bedtime with one 100mcg tablet for a total of 150 mcgActive MULTIVITAMIN ORAL Take by mouth.Active OXcarbazepine (TRILEPTAL) 600 mg oral tablet Take 600 mg by mouth 3 times daily.Active CALCIUM CARBONATE/VITAMIN D2 (OYSTER SHELL CALCIUM WITH D ORAL) Take 1 tablet by mouth twice daily.Active PARoxetine (PAXIL) 40 mg oral tablet Take 40 mg by mouth once daily. Take 1.5 tablets q dayActive Potassium Chloride 10 mEq oral TbTQ Take by mouth.Active acetaminophen (TYLENOL) 325 mg oral tablet Take by mouth every 4 hours as needed.Active ibuprofen (MOTRIN) 600 mg oral tablet Take by mouth every 6 hours as needed.Active loratadine 10 mg oral Cap Take by mouth.Active Social History Tobacco UseTypesPacks/DayYears UsedDateSmoking Tobacco: NeverSmokeless Tobacco: NeverSex and Gender InformationValueDate RecordedSex Assigned at BirthNot on fileLegal ApsMqel0806/05/2016 12:51 PM EDTGender IdentityNot on fileSexual OrientationNot on file Last Filed Vital Signs Vital SignReadingTime TakenCommentsBlood Cuvaftje347/8409/09/2016 11:53 AM EDT Mbltp151609/09/2016 11:53 AM EDTTemperature--Respiratory Rate--Oxygen Saturation-- Inhaled Oxygen Concentration--Qrynrq97.2 kg (187 lb 13.3 oz)09/09/2016 11:53 AM HSONrpplw951.7 cm (5' 8.39 )09/09/2016 11:53 AM EDTBody Mass Index28.24 09/09/2016 11:53 AM EDT Plan of Treatment Health MaintenanceDue DateLast DoneCommentsMMR Vaccine (1 of 1 - Standard series)01/10/1969DTaP/Tdap/Td Vaccine (1 - Tdap)01/10/1975Varicella Vaccine (1 of 2 - 13+ 2-dose series)01/10/1981Hepatitis B Vaccine (1 of 3 - 19+ 3-dose series)01/10/1987Pneumococcal Vaccine: 50+ Years (1 of 1 - PCV)01/10/2018 Shingles Vaccine (1 of 2)01/10/2018COVID-19 Vaccine (1 - 2024- season) 2024Influenza Vaccine (#1)2024RSV Immunization (1 - 1-dose 75+ series)01/10/2043HIB VaccineAged OutNo longer eligible based on patient's age to complete this topicHPV VaccineAged OutNo longer eligible based on patient's age to complete this topicHepatitis A VaccineAged OutNo longer eligible based on patient's age to complete this topicIPV VaccineAged OutNo longer eligible based on patient's age to complete this topicMeningococcal ACWY VaccineAged OutNo longer eligible based on patient's age to complete this topicMeningococcal B VaccineAged OutNo longer eligible based on patient's age to complete this topic RSV AntibodiesAged OutNo longer eligible based on patient's age to complete this topicRotavirus VaccineAged OutNo longer eligible based on patient's age to complete this topic Insurance * Guarantor: Alethea Lei TypeRelation to PatientDate of BirthPhone Billing AddressPersonal/BjmgslIknx1970 [facility] [address] [place] [address] * Guarantor: Alethea Leicount TypeRelation to PatientDate of BirthPhone Billing AddressPersonal/ReeqqzDiqr1970 [facility] [address] [place] [address] * Guarantor: Alethea Lei DAccount TypeRelation to PatientDate of BirthPhone Billing AddressPersonal/QvbbtdGyzw1970 [facility] [address] [place] [address] Care Teams Team MemberRelationshipSpecialtyStart DateEnd Date Go Foster DO [address] [place] [address] [facility]06/11/16
--- OUTSIDE RECORDS SUMMARY | 2025-02-05 21:06 | XMS_ITS | Patient Health Record ---
Author Organization [facility] Address [address] [place] [address] Care Team Providers Care Inspector Handbag Frames Name Role Phone Dr. Panda Rivera Primary Care Provider [phone] EduardSommerBrianna Unavailable [phone] Yolanda Harley Unavailable [phone] Saloni Montero Unavailable [phone] Reason For Referral No Information Encounters Encounter Location Date Provider Diagnosis [facility] [address] [place] [address] 06/01/2024 Yolanda Harley Encounter for dental examination and cleaning with abnormal findings Z01.21 ; Other dental procedure status Z98.818 ; Disturbances in tooth eruption K00.6 ; Acute gingivitis, plaque induced K05.00 ; Dental caries on pit and fissure surface penetrating into dentin K02.52 ; Necrosis of pulp K04.1 and Cracked tooth K03.81 [facility] [address] [place] [address] 09/20/2024 Yolandamiles Harley [facility] [place] [address]/01/2025 Saloni YiDental caries on pit and fissure surface penetrating into dentin K02.52 and Cracked tooth K03.81[facility] [place] [address]Esther YiDental caries on pit and fissure surface [...] 10:00:00 AM, [address], [place], [address], Provider Name:Saloni Montero, 10:00:00 AM, [address], [place], [address], Provider Name:Brianna Chapa , 05/30/2025 11:15:00 AM, [address], [place], [address], Insurance Providers Payer Name Payer Address Payer Phone Subscriber Number Group Number Insured Name Patient Relationship to Insured Coverage Start Date Coverage End Date [employer] [address] [place] [id number] ANUEL LEIelf - patient is the [id number] 2024
--- OUTSIDE RECORDS SUMMARY | 2025-02-05 21:06 | XMS_ITS | Clinical Summary ---
Author Organization [facility] Address [address] [place], [place] [address] Care Team Providers Care Tobacco Blender Name Role Phone FosterGo Radhames OLIVO Primary Care Provider [phone] Allergies Active AllergyReactionsCriticalityNoted DateCommentsAripiprazoleMental Status LlisiuDybsbq87/09/2008 agressiveness Pertussis Erltonhk33/20/2008 Medications * This document contains information received from the source organization and may not represent a complete record from that organization. MedicationSigDispense QuantityRefillsLast FilledStart DateEnd DateStatus BENZTROPINE 1 MG TAB take 1 tablet UYL486ctive DOCUSATE SODIUM 100 MG CAP take one [...] in the evening, and 3 tablets at dcrjjpu173/24/2017Active venlehr-sdoqkiygj-epnzjkh D3 (OYSTER SHELL CALCIUM-VITAMIN D) 500 mg(1,250mg) - 200 unit per tablet Take 1 tablet by mouth twice daily with meals.Active alendronate (FOSAMAX) 70 mg tablet Take 1 tablet by mouth one time a week. on Wednesdays at 15:91163Active loratadine (CLARITIN) 10 mg tablet Take 1 tablet by mouth once daily. for 3 days as needed for nasal congestion.0 06/01/2019Active Active Problems ProblemNoted DateDiagnosed DateIntellectual deyxwpejny01/09/2021Impulse control ovxqzvxp39/24/2013Frontal lobe lofwtdln78/10/2009utism spectrum disorder 08/02/2008Other and unspecified special symptom or syndrome, not elsewhere whwyzzqsfg76/11/2008Tuberous limckgfzo86/10/2008Hemangioma of skin and subcutaneous qlomms2102/02/2008 Encounters * This document contains information received from the source organization and may not represent a complete record from that organization. DateTypeDepartmentCare PnykGktpvjihghs21/18/2025 Patient Msg Medical Records [address] [place] [address] Provider, [facility] Update for Our Medicare Patients Regarding Virtual Nwwvxh3601/06/2025[place] [address] Maico Monreal APRN.SOFTWARE DEVELOPMENT TEST ENGINEER 01/05/20254917Gmbblx98/12/2025Progress Note IF [facility] DEPARTMENT [facility]95 Maico Monreal APRN.SOFTWARE DEVELOPMENT TEST ENGINEER 01/02/2025Progress Note IF [facility] DEPARTMENT [facility]95 Maico Monreal APRN.SOFTWARE DEVELOPMENT TEST ENGINEER 12/30/2024Progress Note Brigitte Richard Lip Reading Teacher [address] [place] [address] Prema Sapp MD 12/29/2024[place] [address] Maico Monreal APRN.SOFTWARE DEVELOPMENT TEST ENGINEER 12/28/2024[place] [address] Maico Monreal APRN.SOFTWARE DEVELOPMENT TEST ENGINEER 12/27/2024[place] [address] Maico Monreal APRN.SOFTWARE DEVELOPMENT TEST ENGINEER 12/22/2024Progress Note IF [facility] DEPARTMENT [facility]95 Maico Monreal APRN.SOFTWARE DEVELOPMENT TEST ENGINEER 12/20/2024[place] [address] Maico Monrela APRN.SOFTWARE DEVELOPMENT TEST ENGINEER 12/15/2024Progress Note Brigitte Richard Alf [address] [place] [address] Prema Sapp MD 12/14/2024[place] [address] Maico Monreal SAW RUNNER.SOFTWARE DEVELOPMENT TEST ENGINEER 12/12/2024[place] [address] Maico Monreal SAW RUNNER.SOFTWARE DEVELOPMENT TEST ENGINEER 12/05/20243281Rhbmhk14/09/2025[place] [address] Maico Monreal APRN.SOFTWARE DEVELOPMENT TEST ENGINEER 11/30/2024 Patient Msg Medical Records [address] [place] [address] Provider, [facility] Important Notice for Our Medicare Patients Regarding Appointment Scheduling 11/29/2024Progr [place] [address]Maico Zurita APRN.SOFTWARE DEVELOPMENT TEST ENGINEER 11/23/2024[place] [address] Maico Monreal APRN.SOFTWARE DEVELOPMENT TEST ENGINEER 11/21/2024Progress Note Brigitte Richard Alf [address] [place] [address] Prema Sapp MD from Last 3 Months Social History Tobacco UseTypesPacks/DayYears UsedDateSmoking Tobacco: Never Tobacco Cessation:Counseling Given: Yes Alcohol UseStandard Drinks/WeekCommentsNo0 (1 standard drink = 0.6 oz pure alcohol)PHQ-2AnswerDate RecordedPHQ-2 /13/2025Area Deprivation Index AnswerDate RecordedNational Score (1-100), lower number is lower riskNot on file 01/29/2020State Score (1-10), lower number is lower riskNot on file01/29/2020 Data from: https://www.neighborhoodatlas.medicine.[facility].edu/. Last address used for calculationNot on file01/29/2020Sex and Gender InformationValueDate Recorded Sex Assigned at BirthNot on fileLegal SlyAlad48/02/2012 8:41 AM ESTGender YnvvouxoRitq83/09/2021 10:38 AM ESTSexual OrientationNot on file Last Filed Vital Signs Vital SignReadingTime TakenCommentsBlood Urddabvd742/7806 10:33 AM EDT Ntffu4783 10:33 AM CNJYbdpauxwpwt80.3 ??C (97.4 ??F)10/29/2012 1:47 PM EDTRespiratory Iont908708/09/2020 10:33 AM EDTOxygen Phtlrbbhqz00%08/09/2020 10:33 AM EDTInhaled Oxygen Concentration--Jdxvtp37.2 kg (194 lb 8 oz)08/09/2020 10:33 AM FTGYvmobf894 cm (5' 8.5 )08/09/2020 10:33 AM EDTBody Mass Index29.14 08/09/2020 10:33 AM EDT Plan of Treatment Health MaintenanceDue DateLast DoneCommentsAnxiety Isaoyoiip39/18/1986Depression Axxttlqml94/18/1986HIV Tijvmnfbl87/18/1986Hepatitis C Ikugghfwy63/18/1986 Medicare Annual Wellness Visit02/24/1996Lipid Rqtejwcoi54/18/2003CT Colonography 01/10/20134895Puypwmoudnc98/18/2013Fecal Occult Blood01/10/2013Prostate Cancer Screening Xioxvnxejq47/18/8754Rzbektahalfcj16/18/2013Covid-19 Vaccine ( season), 12/11/2021, 06/26/2021, Additional history existsInfluenza Vaccine (#1)/, 12/10/2022, 12/11/2021, Additional history existsDTaP,Tdap,Td Vaccine (1 - Tdap)509/, 07/12/2015, 06/25/2005Cologuard (FIT-DNA)/olorectal Cancer Cvbigxjuz95/21/2026Diabetes Gphzrrjck85/, 11/17/2024, 11/16/2024, Additional history existsRSV Vaccine (1 - 1-dose 75+ series) 01/10/2043Hepatitis B OmdyxyaKcfwxofov54/12/1985, 07/08/1984, 06/08/1984 Pneumococcal Vaccine: 50+Nhiwtshxb50/31/2025Shingrix EovwavfIulndysyt12/14/2025, 03/25/2024 Procedures Procedure NamePriorityDate/TimeAssociated DiagnosisCommentsBASIC METABOLIC PANEL Lemhenf0210/29/2012 4:44 AM EDT from Last 3 Months or Most Recently Relevant to Health Maintenance Insurance [address] [place] [address] Care Teams Team MemberRelationshipSpecialtyStart DateEnd Date Go Foster DO PCP - General10/24/12
--- NOTE | 2025-02-05 21:20 | ED_ITS ---
HPI HPI - General Adult General Chief complaint: Altered Mental Status Stated complaint: Altered Mental Status Time Seen by Provider: 02/05/25 20:43 Source: caregiver Mode of arrival: ambulance History of Present Illness HPI narrative: Patient is a 55-year-old male presenting to the emergency department from a long term for concerns of abnormal behavior. The patient has a history of cognitive delay, his guardian is his mother. He presents with a staff member at the long term. Throughout the day today, the patient has been acting unlike himself. He is uncooperative with staff. He does not want to engage in his typical hobbies that he enjoys. They noticed that he has been having decreased p.o. intake and refused dinner tonight. The patient himself is oriented x 3. He states he has no pain and does not want to be here in the hospital. He denies nausea, vomiting, chest pain, shortness of breath, or any other concerns. Related Data Home Medications ?Medication ?Instructions ?Recorded ?Confirmed oxcarbazepine 600 mg tablet 600 mg PO BID 08/21/22 Held on 07/14/23. Instructions: dc paroxetine HCl 40 mg tablet 60 mg PO DAILY 08/21/22 Held on 07/14/23. Instructions: dc atorvastatin 40 mg tablet 40 mg PO DAILY 07/14/2306/24 benztropine 1 mg tablet 1 mg PO TID 07/14/23 4 clonidine HCl 0.1 mg tablet 0.1 mg PO Q8H 07/14/23 docusate sodium 100 mg capsule 100 mg PO TID 07/14/23 07/14/23 fluocinonide 0.05 % topical topical .weekly 07/14/23 solution haloperidol 5 mg tablet 10 mg PO .evening 07/14/23 0 07/14/23 Previous Rx's ?Medication ?Instructions ?Recorded sulfamethoxazole 800 1 tab PO Q12H 7 days #14 tab s 02/05/25 mg-trimethoprim 160 mg tablet (Bactrim DS) Allergies Allergy/AdvReac Type Severity Reaction Status Date / Time Pertussis Vaccines Allergy Unknown Verified 07/19/24 23:48 Opioid HPI Opioid Management Most Recent Opioid Data: Last Pain Scale 0 08/16/24, 16:31 PFSH PFSH Social History Smoking status: Never smoker Exam Narrative Exam Narrative: CONSTITUTIONAL: Well-appearing, oriented x 3, answering questions and following commands appropriately SKIN: Was warm and dry. EYES: Sclerae white. EARS, NOSE, THROAT: Moist oral mucosa. RESPIRATORY: Clear to auscultation bilaterally, no wheezes, crackles, or stridor, no use of accessory muscles CARDIOVASCULAR: Normal rate and regular rhythm. There is no S3, S4, murmur, rub. GASTROINTESTINAL: Abdomen is soft, nontender, nondistended. MUSCULOSKELETAL: No peripheral edema. NEUROLOGIC: Patient is awake and alert. Facies were symmetrical. Constitutional Vital Signs, click to edit/add: Last Vital Signs Temp 97.9 F 02/05/25 20:49 Pulse 64 02/05/25 20:49 Resp 16 02/05/25 20:49 BP 133/78 02/05/25 20:49 Pulse Ox 100 02/05/25 20:49 O2 Del Method Room Air 02/05/25 20:49 Course Vital Signs Vital signs: Vital Signs Temperature 97.9 F 02/05/25 20:49 Pulse Rate 64 02/05/25 20:49 Respiratory Rate 16 02/05/25 20:49 Blood Pressure 133/78 02/05/25 20:49 Pulse Oximetry 100 02/05/25 20:49 Oxygen Delivery Method Room Air 02/05/25 20:49 Temperature 97.9 F 02/05/25 20:49 Pulse Rate 64 02/05/25 20:49 Respiratory Rate 16 02/05/25 20:49 Blood Pressure 133/78 02/05/25 20:49 Pulse Oximetry 100 02/05/25 20:49 Oxygen Delivery Method Room Air 02/05/25 20:49 Medical Decision Making MDM Narrative Medical decision making narrative: Patient is a 55-year-old male presenting to the emergency department from a long term for concerns of abnormal behavior and decreased p.o. intake. On review of external documentation, patient was admitted to the hospital in the past for an SHANON and hyperkalemia. His vital signs on arrival are within normal limits. He is afebrile and hemodynamically stable. He has a normal physical examination. Differential diagnosis includes SHANON, dehydration, urinary retention, UTI, pneumonia, or other electrolyte/metabolic derangement. IV was established and laboratory studies were obtained. Bedside bladder scan demonstrated urinary re tention with 2.5 L of urine. Martini catheter was placed with return of clear yellow urine. 12 Lead EKG: Normal sinus rhythm at a rate of 69. Normal axis. No ST segment elevations. QRS, HI, and QTc interval within normal limits. Final impression: normal sinus rhythm without evidence of acute myocardial ischemia Laboratory studies were unremarkable. No significant electrolyte or metabolic derangement. No evidence of acute kidney injury. No anemia, leukocytosis, or thrombocytopenia. No transaminitis or hyperbilirubinemia. Troponin nonelevated. Urinalysis suggestive of UTI. 12 Lead EKG: Normal sinus rhythm at a rate of 69. Normal axis. No ST segment elevations. QRS, HI, and QTc interval within normal limits. Final impression: normal sinus rhythm without evidence of acute myocardial ischemia Chest x-ray independently reviewed/interpreted by myself demonstrated no acute cardiopulmonary process. I do believe the patient is stable for discharge. The long term staff member was given a prescription for Bactrim DS 800/160 mg x 7 days for UTI. Patient tolerated p.o. challenge while here in the ED without vomiting. I did instruct the staff member to maintain the Martini catheter until he can follow-up with urology. They were given information for Dr. Fernandez's office. Return precautions were given including any new or concerning symptoms. Patient's caregiver understands and agrees the plan. FINAL IMPRESSION: #Acute urinary retention requiring Martini catheter placement #Acute urinary tract infection DISPOSITION: Discharged to long term CONDITION: Good Medical Records Medical records reviewed: Yes I reviewed the patient's medical records Lab Data Lab results reviewed: Yes I reviewed the patient's lab results Labs: Lab Results 02/05/25 02/05/25 Range/Units 22:17 22:57 WBC 6.4 (4.0-11.0) 10^3/uL RBC 3.28 L (4.70-6.10) 10^6/uL Hgb 9.9 L (14.0-18.0) g/dL Hct 31.7 L (42.0-54.0) % MCV 96.6 H (80.0-94.0) fL MCH 30.2 (25.9-34.0) pg MCHC 31.2 (29.9-35.2) g/dL RDW 15.9 H (11.0-15.0) % Plt Count 308 (150-450) 10^3/uL MPV 10.0 (9.5-13.5) fL Neut % (Auto) 67.6 (43.0-75.0) % Lymph % (Auto) 21.9 (20.5-60.0) % [place] % (Auto) 7.7 (1.7-12.0) % Eos % (Auto) 2.0 (0.9-7.0) % Baso % (Auto) 0.3 (0.2-2.0) % Neut # (Auto) 4.3 (1.4-6.5) 10^3/uL Lymph # (Auto) 1.4 (1.2-3.8) 10^3/uL [place] # (Auto) 0.5 (0.3-0.8) 10^3/uL Eos # (Auto) 0.1 (0.0-0.7) 10^3/uL Baso # (Auto) 0.0 (0.0-0.1) 10^3/uL Abs Immat Gran (auto) 0.03 (0.00-0.03) 10^3/uL Imm/Tot Granulo (auto) 0.5 (0.0-0.5) % Sodium 142 (136-145) mmol/L Potassium 4.3 (3.5-5.1) mmol/L Chloride 105 (98-107) mmol/L Carbon Dioxide 30.0 (21.0-32.0) mmol/L Anion Gap 11.3 BUN 19.0 H (7.0-18.0) mg/dL Creatinine 1.46 H (0.70-1.30) mg/dL Est GFR ( Amer) >60 (>=60 mL/min/1.73m^2) Est GFR (Non-Af Amer) 50 L (>=60 mL/min/1.73m^2) BUN/Creatinine Ratio 13.0 Glucose 112 H (74-106) mg/dL Calcium 9.2 (8.5-10.1) mg/dL Total Bilirubin 0.2 (0.2-1.0) mg/dL AST 18 (15-37) U/L ALT 25 (16-63) U/L Alkaline Phosphatase 303 H (46-116) U/L Troponin I High Sens 10.8 (4.0-76.1) pg/mL Total Protein 7.6 (6.4-8.2) g/dL Albumin 3.0 L (3.4-5.0) g/dL Globulin 4.6 g/dL Albumin/Globulin Ratio 0.7 Urine Color Lt. yellow (YELLOW) Urine Clarity Clear (CLEAR) Urine pH 6.5 (5.0-9.0) Ur Specific Roland <=1.005 A (1.005-1.025) Urine Protein Negative (NEG/TRACE) mg/dL Urine Glucose (UA) Negative (NEGATIVE) mg/dL Urine Ketones Negative (NEGATIVE) mg/dL Urine Occult Blood Negative (NEGATIVE) Urine Nitrite Negative (NEGATIVE) Urine Bilirubin Negative (NEGATIVE) Urine Urobilinogen 0.2 (0.2-1.0) EU/dL Ur Leukocyte Esterase Large A (NEGATIVE) Urine RBC None seen (0-2) #/HPF Urine WBC 20-50 A (NONE SEEN) #/HPF Ur Squamous Epith Cells Rare (NONE/RARE) #/LPF Urine Crystals None seen (None Seen) #/HPF Urine Bacteria Moderate A (NONE SEEN) #/HPF Urine Casts None seen (NONE SEEN) #/LPF Urine Mucus None seen (NONE SEEN) Ur Culture Indicated? Yes-[facility] [place] Imaging Data Chest x-ray: Attestation: I personally reviewed and interpreted this imaging study as follows: ECG Data Attestation: I personally reviewed and interpreted this ECG as follows: Discharge Plan Discharge Chief Complaint: Altered Mental Status Clinical Impression: Acute urinary retention, Acute UTI Patient Disposition: Home, Self-Care Time of Disposition Decision: 23:22 Condition: Good Mode of Transportation: Private Vehicle Prescriptions / Home Meds: New sulfamethoxazole-trimethoprim [Bactrim DS] 800-160 mg tablet 1 tab PO Q12H 7 Days Qty: 14 0RF No Action oxcarbazepine 600 mg tablet 600 mg PO BID paroxetine HCl 40 mg tablet 60 mg PO DAILY atorvastatin 40 mg tablet 40 mg PO DAILY benztropine 1 mg tablet 1 mg PO TID clonidine HCl 0.1 mg tablet 0.1 mg PO Q8H docusate sodium 100 mg capsule 100 mg PO TID fluocinonide 0.05 % solution TOPICAL .weekly haloperidol 5 mg tablet 10 mg PO .evening Print Language: Telugu Instructions: Urinary Retention in Men (ED), Urinary Tract Infection in Men (ED) Referrals: CHARISSA ESPINOZA DO [Primary Care Provider, Family Practice] - 1 week Eliecer Fernandez MD [Physician, Urology] - 1 week
[2025-02-05 22:34] LABS: Hematocrit 31.7 % (42.0-54.0); Hemoglobin 9.9 g/dL (14.0-18.0); Immature Granulocytes Abs Auto 0.03 10^3/uL (0.00-0.03); Immature Granulocytes Pct Auto 0.5 % (0.0-0.5); Lymphocytes Absolute Auto 1.4 10^3/uL (1.2-3.8); Mean Corpuscular HGB Conc 31.2 g/dL (29.9-35.2); Mean Corpuscular Hemoglobin 30.2 pg (25.9-34.0); Mean Corpuscular Volume 96.6 fL (80.0-94.0); Platelet Count 308 10^3/uL (150-450); Red Blood Count 3.28 10^6/uL (4.70-6.10); White Blood Count 6.4 10^3/uL (4.0-11.0)
[2025-02-05 22:52] LABS: Alanine Aminotransferase 25 U/L (16-63); Albumin Globulin Ratio 0.7; Albumin Level 3.0 g/dL (3.4-5.0); Alkaline Phosphatase 303 U/L (46-116); Anion Gap 11.3; Aspartate Amino Transferase 18 U/L (15-37); Blood Urea Nitrogen 19.0 mg/dL (7.0-18.0); Calcium 9.2 mg/dL (8.5-10.1); Carbon Dioxide 30.0 mmol/L (21.0-32.0); Chloride 105 mmol/L (98-107); Estimated GFR (African America >60 (>=60 mL/min/1.73m^2); Estimated GFR (Non-African Ame 50 (>=60 mL/min/1.73m^2); Globulin 4.6 g/dL; Glucose 112 mg/dL (74-106); Potassium 4.3 mmol/L (3.5-5.1); Sodium 142 mmol/L (136-145); Total Protein 7.6 g/dL (6.4-8.2)
[2025-02-05 23:03] LABS: Glucose Urine UA NEGATIVE (NEGATIVE)
[2025-02-05 23:10] LABS: Cast Seen? NONE SEEN #/LPF (NONE SEEN); Crystals Seen? None Seen #/HPF (None Seen); Urine Culture Indicated YES-FRMC
== END 2025-02-06 00:35 | disposition home or self-care (01) ==
PROVIDERS: Emergency Provider Student in an Organized Health Care Education/Training Program; PCP Family Medicine
DX: N39.0 Urinary tract infection, site not specified (principal); R33.9 Retention of urine, unspecified
CPT/HCPCS: 36415; 71045; 80053; 81001; 84484; 85025; 87086; 93005; 99283

== ENCOUNTER 2025-02-09 07:17 | Outpatient (OUT) | payer MEDICARE, MEDICAID, SELFPAY ==
--- OUTSIDE RECORDS SUMMARY | 2024-09-28 04:00 | XMS_ITS ---
Author Organization [facility] Address [address] [address] Care Team Providers Care Artificial Candy Maker Name Role Phone Dr. Panda Rivera Primary Care Provider Yolanda Harley [phone] REASON FOR VISIT FILLING Encounters Encounter Location Date Provider Diagnosis [facility] [address] [address] 09/28/2024 Yolanda Harley Plan Of Treatment Next Appt Details Provider Name:Saloni Montero, 07/2025 10:00:00 AM, [address], [place], [address], Provider Name:Saloni Montero, 10:00:00 AM, [address], [place], [address], Provider Name:Brianna Eduard , 05/30/2025 11:15:00 AM, [address], [place], [address], Progress Notes * ALETHEA LEI DDOB:1970 (55 yo M)Acc No.[id number]:09/28/2024 Patient:?ALETHEA LEI :?Yolanda HarleyDOB:1970???Age:54 Y???Sex:Male Date:09/28/2024Phone:[phone]:[address] [facility] [address], [place], [place]Akb:Dr. Panda Rivera Subjective: * Chief Complaints: * F ILLING * Electronic signature of Yolanda Harley DMD on 02/09/2025 at 07:21 AM ESTSign off status: Pending * Provider: Юлия Harley Date: 0 09/28/2024 Generated for Printing/Faxing/eTransmitting on:?02/09/2025 07:21 AM EST
--- OUTSIDE RECORDS SUMMARY | 2024-11-23 06:30 | XMS_ITS ---
Author Organization [facility] Address [address] [address] Care Team Providers Care Finance Intern Name Role Phone Dr. Panda Rivera Primary Care Provider [phone] Carmela Montero Saloni Graham [phone] REASON FOR VISIT FILLING Encounters Encounter Location Date Provider Diagnosis [facility] [address] [place] [address] 11/23/2024 Saloni Montero Plan Of Treatment Next Appt Details Provider Name:Saloni Montero, 07/2025 10:00:00 AM, [address] [place], [address], Provider Name:Saloni Yi, 10:00:00 AM, [address] [place], [address], Provider Name:Brianna Chapa , 05/30/2025 11:15:00 AM, [address] [place], [address], Progress Notes * ALETHEA LEI DDOB:1970 (55 yo M)Acc No.[id number]:11/23/2024 Patient:?ALETHEA LEI :?Saloni MonteroDOB:1970???Age:54 Y???Sex:MaleDate: 11/23/2024Phone:[phone]:[address], [place], [place] Pcp:Dr. Pnada Rivera Subjective: * Chief Complaints: * F ILLING * Electronic signature of Saloni Montero , [phone] on 02/09/2025 at 07:20 AM ESTSign off status: Pending * Provider: Cortez Montero Date: Generated for Printing/Faxing/eTransmitting on:?02/09/2025 07:20 AM EST
--- OUTSIDE RECORDS SUMMARY | 2024-11-25 06:30 | XMS_ITS ---
Author Organization [facility] Address [address] [address] Care Team Providers Care Passenger Flagman Name Role Phone Dr. Panda Rivera Primary Care Provider [phone] Carmela Montero Saloni Graham [phone] REASON FOR VISIT FILLING Encounters Encounter Location Date Provider Diagnosis [facility] [address] [place] [address] 11/25/2024 Saloni Montero Plan Of Treatment Next Appt Details Provider Name:Saloni Montero, 07/2025 10:00:00 AM, [address] [place], [address], Provider Name:Saloni Yi, 10:00:00 AM, [address], [place], [address], Provider Name:Brianna Chapa , 05/30/2025 11:15:00 AM, [address] [place], [address], Progress Notes * ALETHEA LEI DDOB:1970 (55 yo M)Acc No.[id number]:11/25/2024 Patient:?ALETHEA LEI :?Saloni MonteroDOB:1970???Age:54 Y???Sex:MaleDate: 11/25/2024Phone:[phone]:[address], [place], [place] Pcp:Dr. Panda Rivera Subjective: * Chief Complaints: * F ILLING * Electronic signature of Saloni Montero , [phone] on 02/09/2025 at 07:21 AM ESTSign off status: Pending * Provider: Cortez Montero Date: Generated for Printing/Faxing/eTransmitting on:?02/09/2025 07:21 AM EST
--- OUTSIDE RECORDS SUMMARY | 2024-11-29 05:40 | XMS_ITS ---
Author Organization [facility] es Address [address] [address] Care Team Providers Care Caddy/Caddie Supervisor Name Role Phone Dr. Panda Rivera Primary Care Provider [phone] Brianna Serrato [phone] REASON FOR VISIT PROPHY Encounters Encounter Location Date Provider Diagnosis [facility] Services [address] [place] [address] 11/29/2024 Brianna Chapa Plan Of Treatment Next Appt Details Provider Name:Saloni Montero, 07/2025 10:00:00 AM, [address] [place], [address], Provider Name:Saloni Montero, 10:00:00 AM, [address], [place], [address], Provider Name:Brianna Chapa , 05/30/2025 11:15:00 AM, [address] [place], [address], Progress Notes * ALETHEA LEI DDOB:1970 (55 yo M)Acc No.[id number]:11/29/2024 Patient:?ALETHEA LEI :?Brianna ChapaDOB:1970???Age:54 Y???Sex:Male Date:11/29/2024Phone:[phone]:[address], [place] [address], [place]Wgw:Dr. Panda Rivera Subjective: * Chief Complaints: * P ROPHY * Electronic signature of Brianna Chapa on 02/09/2025 at 07:21 AM ESTSign off status: Pending * Provider: Roselyn Chapa Date: Generated for Printing/Faxing/eTransmitting on:?02/09/2025 07:21 AM EST
--- OUTSIDE RECORDS SUMMARY | 2025-01-26 11:40 | XMS_ITS | Encounter Summary ---
Author Organization [facility] Address [address] [place] [address] Care Team Providers Care Manager Market Development Name Role Phone Go Foster MD Primary Care Provider Sue Patrick DO Unavailable [phone] Reason for Visit * ReasonCommentsToenail CareNon dm nail care Encounter Details DateTypeDepartmentCare Team (Latest Contact Info)Mwwzjqywdnm75/04/2025 11:40 AM ESTProcedure Visit [facility] [address] [facility] [address] [place] [address] Glenn Flores, DPDoyle [address] [facility] [address] [place] [address] Lisfranc dislocation, left, initial encounter (Primary Dx); Pain due to onychomycosis of toenails of both feet Social History Tobacco UseTypesPacks/DayYears UsedDateSmoking Tobacco: NeverPassive Smoke Exposure: NeverSmokeless Tobacco: NeverAlcohol UseStandard Drinks/WeekComments Never0 (1 standard drink = 0.6 oz pure alcohol)Sex and Gender InformationValue Date RecordedSex Assigned at BirthNot on fileLegal FhdPllz5105/07/2022 6:35 PM EDT Gender IdentityNot on fileSexual OrientationNot on filedocumented as of this encounter Last Filed Vital Signs Vital SignReadingTime TakenCommentsBlood Poyembnz124/8401/26/2025 11:21 AM EST Gqmch392601/26/2025 11:21 AM ESTTemperature--Respiratory Rate--Oxygen Saturation-- Inhaled Oxygen Concentration--Gzkobf79.9 kg (185 lb)01/26/2025 11:21 AM EST Bvxrxm839.7 cm (5' 8 )01/26/2025 11:21 AM ESTBody [...] Plan of Treatment DateTypeDepartmentCare Team (Latest Contact Info)Ojinbgmrzuh34/19/2026 11:30 AM ESTProcedure Visit [facility] [address] [facility] [address] [place] [phone] Glenn Flores DPM [address] [facility] [address] [place] [address] documented as of this encounter Visit Diagnoses Diagnosis Lisfranc dislocation, left, initial encounter- Primary Pain due to onychomycosis of toenails of both feet documented in this encounter Care Teams Team MemberRelationshipSpecialtyStart DateEnd Date Go Foster MD [facility] [employer] [facility] [address] [place] [address] PCP - GeneralFamily Hxhmljgk35/17/24 Sue Patrick DO [address] [place] [address] Referring YsopupwmuWgddsratx69/17/24documented as of this encounter
--- OUTSIDE RECORDS SUMMARY | 2025-02-06 19:34 | XMS_ITS | Continuity of Care Document ---
Author Organization [facility] Address [address] [place] [address] Phone Care Team Providers Care Musician Instrumental Name Role Phone Joe ([facility])Joe DO Attending Provider Care Teams Patient Care Team Team Status: Active Member Role/Relationship Status Dates Go Foster DO Primary Care Provider Active Patient Care Team Team Status: Inactive Member Role/Relationship Status Dates Joe Diaz ([facility]) , Attending Provider Active Start: February 05, 2025 End: February 05, 2025 Allergies, Adverse Reactions, Alerts Allergen Type Severity Reaction Last Updated Verified Status Pertussis Vaccines Allergy Unknown Unknown Reaction September 21, 2024 1:37pm Yes Active Social History Smoking Status Status Start Date End Date Date of Observa tion Never smoked tobacco (finding) August 17, 2024 12:59pm Observation Status Observation Response Date of Response Legal Sex Male (finding) [facility] 1969 Family History Relationship Condition Age at Onset Recorded Date/T adriel mother Hypertension Unknown fatherHypertensionUnknownbrotherHypertensionUnknownmotherHypertensionUnknown Problems Active Problems Problem Diagnosis/Recorded Date Onset Date Status C omments Autism September 24, 2021 10:21am Unknown Active MRDD Seizure disorder September 24, 2021 10:21am Unknown Activ e WeaknessJuly 2024 4:26pmUnknownActiveModerate intellectual disabilityJun2024 1:36amUnknownActiveAnkle fractureAugust 2021 3:57pmUnknownActive Inactive/Resolved Problems Problem Diagnosis/Recorded Date Onset Date Status C omments SHANON (acute kidney injury) August 17, 2024 1:41am Unknown Resolved HypothyroidismJun2024 1:35amUnknownResolvedTuberous sclerosisAugust 2021 10:22amUnknownResolvedChronic kidney diseaseAugust 17, 2024 1:35amUnknown ResolvedFrontal lobe syndromeAugust 2021 10:47amUnknownResolvedMetabolic acidosisJun2024 2:24pmUnknownResolvedCystitisAugust 17, 2024 1:41am UnknownResolvedHypertensionAugust 2021 10:47amUnknownResolvedHyperkalemia August 17, 2024 1:41amUnknownResolved Medications Medication Status Dose Units Route Directions Qty Days Refills S tart Date Stop Date End Date Reason(s) Instructions Adherence Atorvastatin 40 mg Tablet Active 40 MG PO Bedtim e September 23, 2021 11:00pmUnknownPotassium Chloride 10 mEq capsule, extended pfvpjwlYstbrmgnbjdv18ODJBTTejbo times dailyAugust 2021 11:00pmJune 2024 11:21amClonidine Hcl 0.1 mg TabletDiscontinued0.1MGPODailyAugust 2021 11:00pmJuly 2024 1:39pmHaloperidol 5 mg nykrkeAfdskq8QBZkyidQykbue 2021 11:64rk80bw orally daily; 0800 10mg orally evening 1600 15mg orally bedtime 2000UnknownAlendronate 70 mg sywrudOhrylyrnbbpe00SVLVWvzvt September 23, 2021 11:00pmJun2024 1:57amAspirin 81 mg Tablet,Delayed Release (Dr/Ec)Nttriyglbsty97RKLYUvqgjGiwdxz 2021 11:00pmJune 2024 1:57amBenztropine 1 mg KtfeytJntmnr2QBLTThqbs times dailyAugust 2021 11:00pmUnknownOxcarbazepine 600 mg tvpihfRzklew096JVQI.COMPLEXAugust 2021 11:32fw956 mg orally Daily; 1200mg orally BedtimeUnknownParoxetine Hcl 40 mg qccxihAdzqrt37GLDUPszrqkaHmuecn 2021 11:00pmUnknownSaliva Substitute Combo No.9 (Biotene Dry Mouth Oral Rinse) fnftpljkmNcbyrh5GDICSy Directed as needed for Dry MouthAugust 2021 11:00pmUnknownHydrocodone-Acetaminophen 5-325 mg LllsmdBcffzgnqljaq8OORJDMDKOX 4-6 HOURS as needed for PainAugust 2021 11:00pmJune 2024 1:57am Acetaminophen 650 mg Tablet Extended IwxnidfYwkanp456ZFYCQBEXK 4-6 HOURS as needed for PainAugust 2021 11:00pmUnknownTramadol 50 mg tabletDiscontinued 49XTBJQ2P as needed for erqs9156Tiayqe 2021 11:00pmJun2024 1:57am Fracture of ankle Other fracture of unspecified lower leg, initial encounter for closed fracture Amlodipine 10 mg sdmznlQnzfhg86YWGJXcwyaSlrd 2024 11:00pmUnknownClonidine Hcl 0.2 mg tabletActive0.2MGPOThree times dailyJune 2024 11:00pmHold for SBP <100UnknownDocusate Sodium 100 mg ayiptmvRogdsz996UONFRbqnx times dailyJune 2024 11:00pmUnknownFluocinonide 0.05 % sclyxoyzXxrfac2KSOZAMBOJDSGYMgqu a weekJune 2024 11:00pmWednesdayUnknownLevetiracetam 500 mg lelvbnPomahr772 MGPOTwice dailyJune 2024 11:00pmUnknownLevothyroxine 137 mcg tabletActive 137MCGPODailyJune 2024 11:00pmUnknownLosartan 100 mg fgtlayTulcybppaclt897 MGPOBedtimeJune 2024 11:00pmJun2024 11:21amMeloxicam 15 mg tablet Puzrvnvoeyrl80VONPLqvtplrFysl 2024 11:00pmJune 2024 11:21am Multivitamin dvbmyiTbzggf7NDLECKsvqeDpdp 2024 11:00pmUnknownNebivolol 5 mg nkvnyvGzgumo9HIDBLghuuGdlx 2024 11:00pmUnknownCalcium Carbonate-Vitamin D3 (Oyster Shell Calcium-Vit D3) 500 mg-5 mcg (200 unit) bxpmjlVxyqos4QPZYITnfhj dailyJun2024 11:00pmUnknownDenosumab (Prolia) 60 mg/mL rqycuthQzwcdw60OM SUBCUT.MonthlyJun2024 11:00pmUnknownTriamcinolone Acetonide 0.1 % cream Jbacma2LIWSQJPNLZESYCtckd dailyJun2024 11:00pmUnknownSennosides (Senna Lax) 8.6 mg XgnibtZzepzx27.2MGPODaily at gmdzzmk40Twun 26th, 2025 11:00pmUnknown Immunizations Immunization Event Date Not Given Reason Dose Number Director Imaging Lot Number Reason(s) Given Vaccine Information Statement (VIS) Detail Administration Location COVID-19 mRNA, [employer] (CLEAR) March 06, 2020 COVID-19 mRNA, Comirnaty (CLEAR)March 27OVID-19 mRNA, Comirnaty (CLEAR)December 19, 2020 Medical Equipment Device Date Implanted Device Details CANCELLOUS COARSE 7.5CC September 24, 2021 Orthopaedic fixation plate, non-bioabsorbable, sterileAugust 2021UDI: ()[id number] Issuing Agency: [facility] Device Id: [id number] bone screw, non-bioabsorbable, non-sterile September 24, 2021UDI: ()[id number] Issuing Agency: [facility] Device Id: [id number] bone screw, non-bioabsorbable, non-sterile September 24, 2021UDI: ()[id number] Issuing Agency: [facility] Device Id: [id number] bone screw, non-bioabsorbable, non-sterile September 24, 2021UDI: ()[id number] Issuing Agency: [facility] Device Id: [id number] bone screw, non-bioabsorbable, non-sterile September 24, 2021UDI: ()[id number] Issuing Agency: [facility] Device Id: [id number] bone screw, non-bioabsorbable, non-sterile September 24, 2021UDI: ()[id number] Issuing Agency: [facility] Device Id: [id number] bone screw, non-bioabsorbable, non-sterile September 24, 2021UDI: ()[id number] Issuing Agency: [facility] Device Id: [id number] bone screw, non-bioabsorbable, non-sterile September 24, 2021UDI: ()[id number] Issuing Agency: [facility] Device Id: [id number] bone screw, non-bioabsorbable, non-sterile September 24, 2021UDI: ()[id number] Issuing Agency: [facility] Device Id: [id number] bone screw, non-bioabsorbable, non-sterile September 24, 2021UDI: ()[id number] Issuing Agency: [facility] Device Id: [id number] Procedures Procedure Date Performed Status Urine Culture February 05, 2025 active Advance Directives Advance Directive Response Recorded Date/ Time Advance Directives No October 22, 2016 8:09am Insurance Providers Guarantor Amarilis Michael Address [facility] [address] [facility] [address]Oaaqcua Info.Home Phone: Coverage Status Update:2024 Payer Group Member ID Coverage Type Subscriber Relationship to Subscriber Effective Date Expiration Date Medicaid [id number] Kepner , D Id: [id number] [address] [facility] [address] Home Phone: Email: [email or web address] Kepner , D Id: [id number] [address] [facility] [address] Home Phone: Email: [email or web address] Encounters Encounter Location(s) Arrival/Admit Date Discharge/Departure Date Discharge/Departure Disposition Provider(s) Departed Referred -[facility] February 05, 2025 10:57pm February 05, 2025 10:58pm Discharged to home care or self care (routine discharge) Joe Diaz ([facility]) Doyle DO Plan of Treatment Future Tests Future scheduled test information is unavailable Pending Tests Test Name Ordered Date Scheduled Date Urine Culture February 05, 2025 10:57pm Future Visits Future appointment information is unavailable Future Procedures Procedure Name Ordered Date Scheduled Date Urine Culture February 06, 2025 12:53pm Dece mber 2024 10:57pm Future Medications Future medication information is unavailable Patient Instructions Patient instructions are unavailable
--- OUTSIDE RECORDS SUMMARY | 2025-02-09 07:21 | XMS_ITS | Clinical Summary ---
Author Organization [facility] Address [address] [place], [place] [address] Care Team Providers Care Conference Assistant Name Role Phone FosterGo Radhames OLIVO Primary Care Provider [phone] Allergies Active AllergyReactionsCriticalityNoted DateCommentsAripiprazoleMental Status XfkjabVvebka45/09/2008 agressiveness Pertussis Crqhmimh12/20/2008 Medications * This document contains information received from the source organization and may not represent a complete record from that organization. MedicationSigDispense QuantityRefillsLast FilledStart DateEnd DateStatus BENZTROPINE 1 MG TAB take 1 tablet PMI480ctive DOCUSATE SODIUM 100 MG CAP take one [...] in the evening, and 3 tablets at kqpywyi549/24/2017Active dxyannp-vymgopdba-qzchbjl D3 (OYSTER SHELL CALCIUM-VITAMIN D) 500 mg(1,250mg) - 200 unit per tablet Take 1 tablet by mouth twice daily with meals.Active alendronate (FOSAMAX) 70 mg tablet Take 1 tablet by mouth one time a week. on Wednesdays at 15:94851Active loratadine (CLARITIN) 10 mg tablet Take 1 tablet by mouth once daily. for 3 days as needed for nasal congestion.0 06/01/2019Active Active Problems ProblemNoted DateDiagnosed DateIntellectual dscquzhidh46/09/2021Impulse control egmksmxf67/24/2013Frontal lobe xuztprvr19/10/2009utism spectrum disorder 08/02/2008Other and unspecified special symptom or syndrome, not elsewhere /11/2008Tuberous iicqnwaln30/10/2008Hemangioma of skin and subcutaneous hepcll8402/02/2008 Encounters * This document contains information received from the source organization and may not represent a complete record from that organization. DateTypeDepartmentCare BqegOtlqsnrbtzs15/18/2025 Patient Msg Medical Records [address] [place] [address] Provider, [facility] Update for Our Medicare Patients Regarding Virtual Vhblhm8601/06/2025[place] [address] Maico Monreal APRN.[employer] 01/05/20254182Azmfyr22/12/2025Progress Note IF [facility] DEPARTMENT [facility]95 Maico Monreal APRN.MACHINE [employer] 01/02/2025Progress Note IF [facility] DEPARTMENT [facility]95 Maico Monreal APRN.MACH[employer] 12/30/2024Progress Note Brigitte Richard Machine Hamper Maker [address] [place] [address] Prema Sapp MD 12/29/2024[place] [address] Maico Monreal APRN.[employer]ACH[employer] 12/28/2024[place] [address] Maico Monreal APRN.MACHINE [employer] 12/27/2024[place] [address] Maico Monreal APRN.MACHINE [employer]STER 12/22/2024Progress Note IF [facility] DEPARTMENT [facility]95 Maico Monreal APRN.MACHINE [employer] 12/20/2024[place] [address] Maico Monreal APRN.MACHINE [employer] 12/15/2024Progress Note Brigitte Richard Long-Term [address] [place] [address] Prema Sapp MD 12/14/2024[place] [address] Maico Monreal EMBLEM FUSER TENDER.[employer]ACH[employer] 12/12/2024[place] [address] Maico Monreal EMBLEM FUSER TENDER.MACHINE [employer] 12/05/20240434Zgbmtm87/09/2025[place] [address] Maico Monreal APRN.[employer]ACH[employer] 11/30/2024 Patient Msg Medical Records [address] [place] [address] Provider, [facility] Important Notice for Our Medicare Patients Regarding Appointment Scheduling 11/29/2024Progr Note [place] [facility] [place] [address]Maico Zurita APRN.MACHINE [employer] 11/23/2024[place] [address] Maico Monreal APRN.MACHINE [employer] 11/21/2024Progress Note Brigitte Richard [facility] [address] [place] [address] Prema Sapp MD from Last 3 Months Social History Tobacco UseTypesPacks/DayYears UsedDateSmoking Tobacco: Never Tobacco Cessation:Counseling Given: Yes Alcohol UseStandard Drinks/WeekCommentsNo0 (1 standard drink = 0.6 oz pure alcohol)PHQ-2AnswerDate RecordedPHQ-2 /13/2025Area Deprivation Index AnswerDate RecordedNational Score (1-100), lower number is lower riskNot on file 01/29/2020State Score (1-10), lower number is lower riskNot on file01/29/2020 Data from: https://www.neighborhoodatlas.medicine.[facility].edu/. Last address used for calculationNot on file01/29/2020Sex and Gender InformationValueDate Recorded Sex Assigned at BirthNot on fileLegal HniVqfn74/02/2012 8:41 AM ESTGender EzcraygiNick69/09/2021 10:38 AM ESTSexual OrientationNot on file Last Filed Vital Signs Vital SignReadingTime TakenCommentsBlood Hwqezbdq945/7806 10:33 AM EDT Kxnoh2366 10:33 AM VFTYeoqardjcut21.3 ??C (97.4 ??F)10/29/2012 1:47 PM EDTRespiratory Ijut292208/09/2020 10:33 AM EDTOxygen Jrgnbqrdva04%08/09/2020 10:33 AM EDTInhaled Oxygen Concentration--Mgrvwk11.2 kg (194 lb 8 oz)08/09/2020 10:33 AM OJPJfvyzl898 cm (5' 8.5 )08/09/2020 10:33 AM EDTBody Mass Index29.14 08/09/2020 10:33 AM EDT Plan of Treatment Health MaintenanceDue DateLast DoneCommentsAnxiety Kowpppeuw96/18/1986Depression Nfhhaoqak47/18/1986HIV Mwytscuqb82/18/1986Hepatitis C Hzdmqpkxd10/18/1986 Medicare Annual Wellness Visit02/24/1996Lipid Tfkxeihje27/18/2003CT Colonography 01/10/20134563Orqxjnmrnkb32/18/2013Fecal Occult Blood01/10/2013Prostate Cancer Screening Zaquznzxor09/18/6895Hcnhedsbmvrza38/18/2013Covid-19 Vaccine ( season), 12/11/2021, 06/26/2021, Additional history existsInfluenza Vaccine (#1)/, 12/10/2022, 12/11/2021, Additional history existsDTaP,Tdap,Td Vaccine (1 - Tdap)509/, 07/12/2015, 06/25/2005Cologuard (FIT-DNA)/olorectal Cancer Maxqsdbro01/21/2026Diabetes Jkkbionrq60/, 11/17/2024, 11/16/2024, Additional history existsRSV Vaccine (1 - 1-dose 75+ series) 01/10/2043Hepatitis B HkswjcqAmyogxlcm93/12/1985, 07/08/1984, 06/08/1984 Pneumococcal Vaccine: 50+Fnxdfpcfg56/31/2025Shingrix TuitsjcLuokyvxva29/14/2025, 03/25/2024 Procedures Procedure NamePriorityDate/TimeAssociated DiagnosisCommentsBASIC METABOLIC PANEL Ynehepg3810/29/2012 4:44 AM EDT from Last 3 Months or Most Recently Relevant to Health Maintenance Insurance [address] [place] [address] Care Teams Team MemberRelationshipSpecialtyStart DateEnd Date Go Foster DO PCP - General10/24/12
--- OUTSIDE RECORDS SUMMARY | 2025-02-09 07:21 | XMS_ITS | Encounter Summary ---
Author Organization [facility] Address [address] [place] [address] Care Team Providers Care Personal Service Workers Name Role Phone Go Foster MD Primary Care Provider [phone] Sue Patrick DO Unavailable [phone] Encounter Details DateTypeDepartmentCare Team (Latest Contact Info)Xmkabkyekus39/04/2025Travel Social History Tobacco UseTypesPacks/DayYears UsedDateSmoking Tobacco: NeverPassive Smoke Exposure: NeverSmokeless Tobacco: NeverAlcohol UseStandard Drinks/WeekComments Never0 (1 standard drink = 0.6 oz pure alcohol)Sex and Gender InformationValue Date RecordedSex Assigned at BirthNot on fileLegal EcbIezr9805/07/2022 6:35 PM EDT Gender IdentityNot on fileSexual OrientationNot on filedocumented as of this encounter Plan of Treatment DateTypeDepartmentCare Team (Latest Contact Info)Vjjqtgkyfbj76/19/2026 11:30 AM ESTProcedure Visit [facility] [address] [facility] [address] [place] [address] Glenn Flores DPM [address] [facility] [address] [place] [address] documented as of this encounter Visit Diagnoses Not on filedocumented in this encounter Care Teams Team MemberRelationshipSpecialtyStart DateEnd Date Go Foster MD [facility] [employer] [address] [place] [address] PCP - GeneralFamily Ykjmrevw95/17/24 Sue Patrick DO [address] [place] [address] Referring CrtrwqtywJbmvgjtdw25/17/24documented as of this encounter
--- OUTSIDE RECORDS SUMMARY | 2025-02-09 07:21 | XMS_ITS | Encounter Summary ---
Author Organization [facility] Address [address] [place] [address] Care Team Providers Care Barrel Loader And Cleaner Name Role Phone Go Foster MD Primary Care Provider Sue Patrick DO Unavailable [phone] Encounter Details DateTypeDepartmentCare Team (Latest Contact Info)Knzdayunaak46/04/2025bstract [facility] [address] [place] [address] Glenn Flores DPM [address] [address] Social History Tobacco UseTypesPacks/DayYears UsedDateSmoking Tobacco: NeverPassive Smoke Exposure: NeverSmokeless Tobacco: NeverAlcohol UseStandard Drinks/WeekComments Never0 (1 standard drink = 0.6 oz pure alcohol)Sex and Gender InformationValue Date RecordedSex Assigned at BirthNot on fileLegal UnuUnlr2005/07/2022 6:35 PM EDT Gender IdentityNot on fileSexual OrientationNot on filedocumented as of this encounter Plan of Treatment DateTypeDepartmentCare Team (Latest Contact Info)Zzpnoqfbkna63/19/2026 11:30 AM ESTProcedure Visit [facility] [address] [place] [address] Glenn Flores, [place] [address] [address] documented as of this encounter Visit Diagnoses Not on filedocumented in this encounter Care Teams Team MemberRelationshipSpecialtyStart DateEnd Date Go Foster MD [address] [employer] [address] [place], [place] [id number] PCP - GeneralFamily Eactuqfj80/17/24 Sue Patrick DO [address] [place] [address] Referring VnwjgnwdyBcpnjmswf96/17/24documented as of this encounter
--- OUTSIDE RECORDS SUMMARY | 2025-02-09 07:21 | XMS_ITS | Encounter Summary ---
Author Organization [facility] Address [address] [place] [address] Care Team Providers Care Principal Research Economist Name Role Phone Go Foster MD Primary Care Provider Sue Patrick DO Unavailable [phone] Encounter Details DateTypeDepartmentCare Team (Latest Contact Info)Gkafqaygqtx57/04/2025amboo flowsheet [facility] [address] [place] [address] Glenn Flores DPM [address] [address] Social History Tobacco UseTypesPacks/DayYears UsedDateSmoking Tobacco: NeverPassive Smoke Exposure: NeverSmokeless Tobacco: NeverAlcohol UseStandard Drinks/WeekComments Never0 (1 standard drink = 0.6 oz pure alcohol)Sex and Gender InformationValue Date RecordedSex Assigned at BirthNot on fileLegal GsnZuii9405/07/2022 6:35 PM EDT Gender IdentityNot on fileSexual OrientationNot on filedocumented as of this encounter Plan of Treatment DateTypeDepartmentCare Team (Latest Contact Info)Yzrneouyzpx66/19/2026 11:30 AM ESTProcedure Visit [facility] [address] [place] [address] Glenn Flores DPM [address] [address] documented as of this encounter Visit Diagnoses Not on filedocumented in this encounter Care Teams Team MemberRelationshipSpecialtyStart DateEnd Date Go Foster MD [address] [employer] [address] [place] [address] PCP - GeneralFamily Ecarcadz32/17/24 Sue Patrick DO [address] [place] [address] Referring WlkasnnfdLglxrglau90/17/24documented as of this encounter
--- OUTSIDE RECORDS SUMMARY | 2025-02-09 07:21 | XMS_ITS | Clinical Summary ---
Author Organization [facility] Address [address] [facility] [place] [address] Care Team Providers Care Playroom Attendant Name Role Phone Dev Hein MD Unavailable Source Comments The following information is NOT included in Care Everywhere downloads:Psychiatric notes, ECG results, Cardiac Rehab notes, Pulmonary Function notes, data from SmartForms (includes but not limited toPregnancy data,audiograms, eye exams, pre-surgical evaluation notes, well-child exam data).[facility] Allergies Active AllergyReactionsCriticalityNoted DateCommentsAripiprazoleOtherMedium 02/01/2008 agressiveness Pertussis EqiyghbCzleoaw16/18/2017Pertussis Qzuqnkok06/20/2008 Medications MedicationSigDispense QuantityRefillsLast FilledStart DateEnd DateStatus atorvastatin [...] fracture of right tibia and fibula, initial jqdimhqhz02/21/2025Dental meriqo4901/01/2021 Overview (01/01/2021): Added automatically from request for surgery [id number] Encounters DateTypeDepartmentCare VaqeGxiaunjvmcd02/05/2025 10:00 AM ESTOffice Visit [facility] [address] [place] [address] Sarah Amaya PA-C Displ spiral fx shaft of r tibia, init for opn fx type I/2 (Primary Dx) 12/28/2024 9:33 AM EST - 12/28/2024 11:59 PM ESTHospital Encounter [facility] Diagnostic Radiology [address] [place] [address] Displ spiral fx shaft of r tibia, init for opn fx type I/2 Discharge Disposition: HOV Rutrrrgxh41/14/2025 1:[address] [facility] Radiology [address] [place] [address] 12/06/2024 12:[address] [facility] Radiology [address] [place] [address] 12/06/2024 11:[address] [facility] Orthopedic Hand and [facility] [address] [place] [address] Dev Hein MD Closed displaced fracture of right clavicle, unspecified part of clavicle, initial encounter (Primary Dx)12/01/2024Orders Only [facility] Orthopedic Hand [address] [place] [address] Jacqueline Encinas RN 11/30/2024 10:00 AM EDTOffice Visit [facility] Orthopedics [address] [place] [address] Sarah Amaya, PA-C Displ spiral fx shaft of r tibia, init for opn fx type I/2 (Primary Dx) 11/22/2024Telephone [facility] OR [address] [phone] Cj Henriquez DMD, MD 11/22/2024Telephone [facility] Oral Surgery [address] [place], [place] [phone] Assigned, To Be Referral Received?11/18/2024 4:54 PM EDT - 11/18/2024 11:59 PM EDTHospital Encounter [facility] Radiology [address] [place] [address] Daron Yip MD Discharge Disposition: HOV Tulipdxwb55/22/2025 7:41 AM EDTAnesthesia Event [facility] Main OR [address] [place], [place] [phone] Owen Sanders MD Schumacher, Brynn, GROUNDS AND NURSERY SPECIALIST-PIGMENT GRINDER 11/14/2024 7:37 AM EDT - 11/14/2024 10:49 AM EDTSurgery [facility] [address] [place] [address] Jose Truong MD REDUCTION, OPEN, TIBIA, INTRAMEDULLARY ROD11/14/2024 7:11 AM EDT - 11/14/2024 11:59 PM EDTHospital Encounter [facility] Radiology [address] [place] [address] Daron Yip MD Discharge Disposition: HOV Qcbvyqnbv70/22/2025Scan Initial Department Assigned, To Be 1 scan: <No description>11/13/2024 10:05 AM EDT - 11/13/2024 11:59 PM EDT Hospital Encounter [facility] Radiology [address] [place] [address] Daron Yip MD Discharge Disposition: HOV Zlhxivurh00/21/2025 8:52 AM EDT - 11/18/2024 9:15 [place] [address] Donnell Duncan MD Maluso, Patrick, MD Ladha, Prerna, MD Dental caries (Primary Dx); Displ spiral fx shaft of r tibia, init for opn fx type I/2; Fall, initial encounter; Intellectual disability; Type I or II open fracture of right tibia and fibula, initial encounter Discharge Disposition: Discharge to [facility] Tmvzcuex35/21/2025E.D. Visit [facility] Social Work [address] [place], [place] [phone] Claudette Casarez LSW Trauma/complex Medical Gwjqqpasj48/21/2025Travelfrom Last 3 Months Immunizations ImmunizationAdministration DatesNext DueInfluenza, injectable, quadrivalent, preservative (EIK=398)01/06/2017Influenza, injectable, quadrivalent, preservative free (XOA=674)12/19/2020,11/30/2019,12/17/2018,12/02/2017, 12/14/2014Influenza, novel D7I3-79, injectable, preservative-free (NHT=671) 01/10/2009Influenza, unspecified formulation (CVX=88)12/10/2023,12/10/2022, 12/11/2021Influenza, whole virus (CVX=16)01/07/2008,12/08/2006Pfizer Bivalent (12+ YRS) SARS-COV-2 (COVID-19) vaccine, mRNA, spike protein, LNP, pres. free, 30 mcg/0.3mL dose, syeda-sucrose (AIM=845)2Pfizer Monovalent (12+ yrs) SARS-COV-2 (COVID-19) vaccine, mRNA, spike protein, LNP, pres. free, 30mcg/0.3mL dose (QYA=148)12/19/2020,03/27/2020,1Pfizer Monovalent (12+ yrs) SARS-COV-2 (COVID-19) vaccine, mRNA, spike protein, LNP, pres. free, 30mcg/0.3mL dose, syeda-sucrose (IAI=910)2Pneumococcal conjugate PCV21, polysaccharide KJP147 conjugate, PF (HNA=359)03/25/2024Td (adult), 2 Lf tetanus toxoid, preservative free, adsorbed (CVX=09)11/13/2024Td (adult), 5 Lf tetanus toxoid, preservative free, adsorbed (FKC=336)07/12/2015,06/25/2005Zoster Recombinant (RZV,Shingles) (FTZ=726)06/06/2024,03/25/2024 Social History Tobacco UseTypesPacks/DayYears UsedDateSmoking Tobacco: Never AssessedSex and Gender InformationValueDate RecordedSex Assigned at BirthNot on fileLegal Sex Male03/01/2019 1:46 PM ESTGender IdentityNot on fileSexual OrientationNot on file Last Filed Vital Signs Vital SignReadingTime TakenCommentsBlood Bhuasjut982/70011/18/2024 1:49 PM EDT Rhihf0531 1:49 PM KPTIkkywtdtydz22.8 ??C (98.2 ??F)11/18/2024 1:49 PM EDTRespiratory Wivh061811/18/2024 1:49 PM EDTOxygen Aqpksszvnm95%11/18/2024 1:49 PM EDTInhaled Oxygen Concentration--Aumoij15.5 kg (195 lb)01/25/2021 9:15 AM EST Mvxnkf912.7 cm (5' 8 )11/15/2024 7:00 AM EDTBody Mass Index-- Plan of Treatment DateTypeDepartmentCare Team (Latest Contact Info)Qrrlhhmwkqn76/19/2025 10:30 AM ESTOffice Visit [facility] Oral Surgery [address] [place] [address] Blas Vergaar, DMD [address] [facility] [place], [place] [phone] 03/01/2025 11:00 AM ESTOffice Visit [facility] Orthopedics [address] [place], [place] [phone] Sarah Amaya PA-C [address] [place] [phone] 04/20/2025 10:00 AM ESTOffice Visit [facility] Dentistry [address] [place] [address] Jessica Wade, PÉREZ [address] [place], [place] [phone] Health MaintenanceDue DateLast CqedClboigfbWipezvkgjhh1968Hepatitis C Wahpiqil53/18/1986Tdap Xipvaqz9401/10/1986Hepatitis A (HAV) Vaccine (optional start 19+ years)01/10/1987Hepatitis B (HBV) Vaccine (1 of 3 - 19+ 3-dose series) 01/10/1987Annual Wellness Visit (G0438)02/23/1997FIT01/10/2013COVID-19 Vaccine ( season)51, 06/26/2021, 12/19/2020, Additional history existsInfluenza Vaccine (#1)51, 12/10/2022, 12/11/2021, Additional history existsCRC Tyttnkopc59/21/2026Cologuard (Stool DNA)612/4027Cuylaqagsbk20/17/203006/Pneumococcal Vaccine(s) (50+ yrs)Fwpgraeyy14/31/2025Shingles (RZV) VjjrodtJfejrbkat03/14/2025, 03/25/2024HIV MvuoKmbbltadl36/21/2025 Medical Devices ImplantedTypeAreaManufacturerDevice IdentifierShelf Expiration DateModel / Serial / LotCap End 15mm Strl Ea1 04.045.865s - [id number] Implanted:Qty: 1 on 11/14/2024 by Jose Truong MD at INPATIENT DEPARTMENTS ConnectorRight: TibiaJohnson & Ukcrhgl52.045.865S / / [id number] 10mm 330mm Tib Tn Adv Im Ea1 04.043.230s - [id number] Implanted:Qty: 1 on 11/14/2024 by Jose Truong MD at INPATIENT DEPARTMENTS Nail Rods & PinsRight: TibiaJohnson & Knkhudb25/28/578562.043.230S / / [id number] Prof Lckng Scr 50 34 Xl25 S [id number] Implanted:Qty: 1 on 11/14/2024 by Jose Truong MD at INPATIENT DEPARTMENTS ScrewRight: WwklpHslikzr51/30/203004.045.334TS / / [id number] Prof Lckng Scr 50 34 Xl25 S [id number] Implanted:Qty: 1 on 11/14/2024 by Jose Truong MD at INPATIENT DEPARTMENTS ScrewRight: BrhudSuywydy71/30/203004.045.334TS / / [id number] Prof Lckng Scr 50 50 Xl25 S [id number] Implanted:Qty: 1 on 11/14/2024 by Jose Truong MD at INPATIENT DEPARTMENTS ScrewRight: HexlxKbexcri57/31/203004.045.350TS / / [id number] Prof Lckng Scr 50 44 Xl25 S [id number] Implanted:Qty: 1 on 11/14/2024 by Jose Truong MD at INPATIENT DEPARTMENTS ScrewRight: DoqkbXppwlcy25/31/203004.045.344TS / / [id number] Screw For Im Nail Xl25 Sterile 5mm X 36mm Implanted:Qty: 1 on 11/14/2024 by Jose Truong MD at INPATIENT DEPARTMENTS ScrewRight: UferpDztyqqc62/30/203004.045.036TS / / [id number]owjgmMvbzqk IdentifierShelf Expiration DateModel / Serial / LotWire 3.2 X 400mm Guide Ea1 357.399 - [id number] Explanted:Qty: 2 on 11/14/2024 by Jose Truong MD at INPATIENT DEPARTMENTS Right: TibiaSaurabhramirez & Aiwytce258.399 / / Procedures Procedure NamePriorityDate/TimeAssociated DiagnosisCommentsXR TIBIA RIGHT 2 OQRYIYdmbcpv61/05/2025 10:11 AM EST Displ spiral fx shaft of r tibia, init for opn fx type I/2 XR TIBIA RIGHT 2 UFBFDOzabuwh83/14/2025 11:44 AM EDT Displ spiral fx shaft of r tibia, init for opn fx type I/2 XR CLAVICLE RIGHT 2 KAKJRXqjxbrn66/14/2025 11:43 AM EDT Closed displaced fracture of right clavicle, unspecified part of clavicle, initial encounter XR T-SPINE 3 YUQMTNAXC60/26/2025 5:14 PM EDT EMXSTKKVKMVfzdtna11/25/2025 6:57 AM EDT QOOVLCCSCOthabvr02/25/2025 6:57 AM EDT COMPLETE BLOOD FNLPGOboxuat87/25/2025 6:57 AM EDT BASIC METABOLIC KFDJWEpjengh20/25/2025 6:57 AM EDT GRLTADFuoarbu93/24/2025 10:43 AM EDT OSMOLALITY, ENWKNMfxzuiv70/24/2025 10:43 AM EDT SODIUM, RANDOM OKBSDZwzcdfh07/24/2025 10:43 AM EDT COMPLETE BLOOD GDMHKAksssnp18/24/2025 1:35 AM EDT NEUJYBXBYBYstvevr38/24/2025 1:35 AM EDT IDKYZQEJFIumhnpo54/24/2025 1:35 AM EDT BASIC METABOLIC LXENRGutulkw63/24/2025 1:35 AM EDT NCGBSEZYRPEekockc57/23/2025 2:32 AM EDT XEMZREBYLXpekrln93/23/2025 2:32 AM EDT BASIC METABOLIC FSBVZNnqulbj47/23/2025 2:32 AM EDT COMPLETE BLOOD GHWHJAqnyaqp57/23/2025 2:32 AM EDT XR FLUORO SUPPORT ONLY [...] tibia, init for opn fx type I/2 WJCVESZJCDKBQD87/22/2025 6:29 AM EDT NQYDZROGSMBNJ90/22/2025 6:29 AM EDT PARTIAL THROMBOPLASTIN SCDWNTSL71/22/2025 6:29 AM EDT PROTHROMBIN TIME AND EVTZRUS8911/14/2024 6:29 AM EDT COMPLETE BLOOD VNLVJPSCI32/22/2025 6:29 AM EDT BASIC METABOLIC UNUJCVAPR27/22/2025 6:29 AM EDT XR CLAVICLE RIGHT 2 QAMQHTOQW52/21/2025 9:25 PM EDT EKG 12 LEAD - FSHEGKPMsdqpeh83/21/2025 4:53 PM EDT CONFIRMATION ABO/OUZBGJ5111/13/2024 2:[address] TIBIA RIGHT W/O LUDHSWJFULVS75/21/2025 2:21 PM EDT XR TIBIA RIGHT 2 ETVZPWJYW72/21/2025 1:58 PM EDT XR FOOT LEFT 3 SPBKASINF82/21/2025 10:09 AM EDT XR KNEE RT ANY 4 OR MORE HNXMBDYYV46/21/2025 10:09 AM EDT XR ANKLE RIGHT 3 RKEFRXUKS40/21/2025 10:09 AM EDT XR KNEE RIGHT AP+LAT 2 QJPIJDmutfjb80/21/2025 10:[address] T-SPINE/L-SPINE W/O KWMMZGVGVJGS56/21/2025 9:[address] CHEST/ABD/PELVIS W/ LZZBLCJSIFPE75/21/2025 9:[address] C-SPINE W/O XPGVKAQIVJYK83/21/2025 9:[address] HEAD W/O XYMWUTXJOOCL41/21/2025 9:37 AM EDT XRAY RIGHT LOWER EXTREMITY IMG IMPORT(KEYUR)STAT11/13/2024 9:14 AM EDTLACTIC ACID STAT11/13/2024 9:05 AM EDT CBC WITH LLEAAOYIONUCOWWL89/21/2025 9:04 AM EDT HIV1 HIV2 AGAB FNWATWVE72/21/2025 9:04 AM EDT TYPE AND DHGNEUGCUW45/21/2025 9:04 AM EDT PROTHROMBIN TIME AND UXUAIWG2111/13/2024 9:04 AM EDT BASIC METABOLIC DHQIVWSEK95/21/2025 9:04 AM EDT PARTIAL THROMBOPLASTIN IFNCAWJS20/21/2025 9:04 AM EDT ALCOHOL (ETHANOL), KMGLSXRPK57/21/2025 9:04 AM EDT COMPLETE BLOOD COUNT W/YPAVUJOM73/21/2025 9:04 AM EDT from Last 3 Months [...] Right clavicle MACRO: None Authorizing ProviderResult TypeResult StatusPromedica Toledo Hospitallili PA-CEC DIAGNOSTIC X-RAYFinal Result * XR T-SPINE [...] MACRO: None Authorizing ProviderResult TypeResult StatusKimberly Glover GROUNDS AND NURSERY SPECIALIST-CNPEC DIAGNOSTIC X-RAYFinal Result * (ABNORMAL) BASIC METABOLIC PANEL (11/17/2024 6:57 AM EDT)ComponentValueRef RangeTest MethodAnalysis TimePerformed AtPathologist YftsqqvdpRqhvptf574(H)74 - 109 mg/dL11/17/2024 7:29 [facility] HOCWDHSFOMUfnrie120050 - 145 mmol/L11/17/2024 7:29 AM [facility] PATH[facility] LABORATORYPotassium4.03.5 - 5.0 mmol/L11/17/2024 7:29 AM [facility] PATH[facility] LABORATORYCarbon Eqoczie8206 - 31 mmol/L11/17/2024 7:29 AM [facility] FOCTAHHZDOPkcmvxfu978(H)98 - 107 mmol/L11/17/2024 7:29 AM [facility] PATH[facility]Y LABORATORYBlood Urea Fcntqzpi913 - 25 mg/dL11/17/2024 7:29 AM [facility] PATHOLOGY LABORATORYCreatinine1.49(H)0.70 - 1.30 mg/dL11/17/2024 7:29 AM [facility] PATHOLOGY LABORATORYCalcium9.08.6 - 10.3 mg/dL11/17/2024 7:29 AM [facility] PATHOLOGY LABORATORYAnion Cbc9994 - 20 11/17/2024 7:29 AM [facility] PATHOLOGY LABORATORYEstimated GFR (CKD-EPI)55(L)>=60 mL/min/1.63icz0011/17/2024 7:29 AM [facility] PATHOLOGY LABORATORYComment: 2020 CKD EPI Equation [...] Med 2021 Vol. 385 Issue 19 Pages 9741-0276 Specimen (Source)Anatomical Location / LateralityCollection Method / Volume Collection TimeReceived TimeBloodBLOOD SPECIMEN / UnknownVenipuncture / Unknown 11/17/2024 6:57 AM EDT11/17/2024 7:02 AM EDT Narrative Authorizing ProviderResult TypeResult StatusKatbenjamin Leosic GROUNDS AND NURSERY SPECIALIST-CNP98 GENERAL LAB Final ResultPerforming OrganizationAddressCity/State/ZIP CodePhone Number [facility] PATHOLOG[facility] LABORATORY [address] [place] [phone] * (ABNORMAL) COMPLETE BLOOD COUNT (11/17/2024 6:57 AM EDT)ComponentValueRef RangeTest MethodAnalysis TimePerformed AtPathologist SignatureWBC8.64.5 - 11.5 K/uL11/17/2024 7:09 AM [facility] PATHOLOGY LABORATORYRBC2.86(L)4.50 - 5.90 M/uL 11/17/2024 7:09 AM [facility] PATHOLOGY LABORATORYHemoglobin9.8(L)13.9 - 16.3 g/dL 11/17/2024 7:09 AM [facility] PATHOLOGY FAHRAWNDKSBsrhvuwklt48.3(L)41.0 - 53.0 % 11/17/2024 7:09 AM [facility] PATHOLOGY IZJCOFIZZQURF9206 - 100 fL11/17/2024 7:09 AM [facility] PATHOLOGY MQXYNFVPALQRD08.2(H)26.0 - 34.0 pg11/17/2024 7:09 AM EDT [facility] PATHOLOG[facility] NYWLBMLKZMKBHP97.532.0 - 35.9 g/dL11/17/2024 7:09 AM [facility] PATHOLOGY OZDJYXXKFEVmwqwjnw625395 - 400 K/uL11/17/2024 7:09 AM [facility] PATHOLOGY LABORATORYRDW-CV13.311.5 - 14.5 %11/17/2024 7:09 AM [facility] PATHOLOGY LABORATORYMPV8.47.5 - 11.2 fL11/17/2024 7:09 AM [facility] PATHOLOG[facility] LABORATORY Specimen (Source)Anatomical Location / LateralityCollection Method / Volume Collection TimeReceived TimeBloodBLOOD SPECIMEN / UnknownVenipuncture / Chnxmbm6011/17/2024 6:57 AM EDT11/17/2024 7:02 AM EDT Narrative Authorizing ProviderResult TypeResult StatusKatie Mucic GROUNDS AND NURSERY SPECIALIST-CNP98 GENERAL LAB Final ResultPerforming OrganizationAddressty/State/ZIP CodePhone Number [facility] PATH[facility]ORY [address] [place] [phone] * PHOSPHORUS (11/17/2024 6:57 AM EDT)ComponentValueRef RangeTest MethodAnalysis TimePerformed AtPathologist SignaturePhosphorus, Serum3.02.5 - 5.0 mg/dL 11/17/2024 7:29 AM [facility] PATHOLOGY LABORATORYSpecimen (Source)Anatomical Location / LateralityCollection Method / VolumeCollection TimeReceived Time BloodBLOOD SPECIMEN / UnknownVenipuncture / Eryvrmj7611/17/2024 6:57 AM EDT 11/17/2024 7:02 AM EDT Narrative Authorizing ProviderResult TypeResult StatusKatie Mucic GROUNDS AND NURSERY SPECIALIST-CNP98 GENERAL LAB Final ResultPerforming OrganizationAddressCity/State/ZIP CodePhone Number [facility] [address] [place] [phone] * (ABNORMAL) MAGNESIUM (11/17/2024 6:57 AM EDT)ComponentValueRef RangeTest MethodAnalysis TimePerformed AtPathologist SignatureMagnesium1.7(L)1.9 - 2.7 mg/dL11/17/2024 7:29 AM ED[facility] PATHOLOGY LABORATORYSpecimen (Source)Anatomical Location / LateralityCollection Method / VolumeCollection TimeReceived Time BloodBLOOD SPECIMEN / UnknownVenipuncture / Hbxyqnd6511/17/2024 6:57 AM EDT 11/17/2024 7:02 AM EDT Narrative Authorizing ProviderResult TypeResult StatusKatbenjamin Leosic GROUNDS AND NURSERY SPECIALIST-CNP98 GENERAL LAB Final ResultPerforming OrganizationAddressCity/State/ZIP CodePhone Number [facility] [address] [place], [place] * SODIUM, RANDOM URINE (11/16/2024 10:43 AM EDT)ComponentValueRef RangeTest MethodAnalysis TimePerformed AtPathologist SignatureSodium, Jtmuy27jqpu/L 11/16/2024 11:06 AM ED[facility] LABORATORYSpecimen (Source)Anatomical Location / LateralityCollection Method / VolumeCollection TimeReceived Time UrineURINE SPECIMEN / Bzvlvik8311/16/2024 10:43 AM EDT11/16/2024 10:59 AM EDT Narrative Authorizing ProviderResult TypeResult StatusCorin Leosic GROUNDS AND NURSERY SPECIALIST-CNP98 GENERAL LAB Final ResultPerforming OrganizationAddressCity/State/ZIP CodePhone Number [facility] [address] [place] [phone] * (ABNORMAL) SODIUM (11/16/2024 10:43 AM EDT)ComponentValueRef RangeTest Method Analysis TimePerformed AtPathologist RpmqypoiqCalwzw625(H)136 - 145 mmol/L 11/16/2024 11:12 AM [facility]OLOG[facility] LABORATORYSpecimen (Source)Anatomical Location / LateralityCollection Method / VolumeCollection TimeReceived Time BloodBLOOD SPECIMEN / UnknownVenipuncture / Hmlqgob4911/16/2024 10:43 AM EDT 11/16/2024 10:59 AM EDT Narrative Authorizing ProviderResult TypeResult StatusKatie Mucic GROUNDS AND NURSERY SPECIALIST-CNP98 GENERAL LAB Final ResultPerforming OrganizationAddressCity/State/ZIP CodePhone Number [facility] [address] [place] [phone] * OSMOLALITY, URINE (11/16/2024 10:43 AM EDT)ComponentValueRef RangeTest Method Analysis TimePerformed AtPathologist SignatureOsmolality, Icgou35787 - 1,400 mOsm/Kg11/16/2024 11:32 AM [facility] PATHOLOGY LABORATORYSpecimen (Source) Anatomical Location / LateralityCollection Method / VolumeCollection Time Received TimeUrineURINE SPECIMEN / Immejci2111/16/2024 10:43 AM EDT11/16/2024 10:59 AM EDT Narrative Authorizing ProviderResult TypeResult StatusKatie Mucic GROUNDS AND NURSERY SPECIALIST-CNP98 GENERAL LAB Final ResultPerforming OrganizationAddressCity/State/ZIP CodePhone Number [facility] [address] [place] [phone] * (ABNORMAL) BASIC METABOLIC PANEL (11/16/2024 1:35 AM EDT)ComponentValueRef RangeTest MethodAnalysis TimePerformed AtPathologist XxlovlfqnKpbogwj154(H)74 - 109 mg/dL11/16/2024 3:00 AM [facility] KRFCGYEKCTThkrwz844(H)136 - 145 mmol/L11/16/2024 3:00 AM [facility] LABORATORYPotassium4.13.5 - 5.0 mmol/L11/16/2024 3:00 AM [facility] PATH[facility] LABORATORYCarbon Yjeyxef7845 - 31 mmol/L11/16/2024 3:00 AM [facility] ASJDZFRPWRKqzrhhno162(H)98 - 107 mmol/L11/16/2024 3:00 AM [facility] PATHOLOGY LABORATORYBlood Urea Weqtduzo861 - 25 mg/dL11/16/2024 3:00 AM [facility] PATHOLOGY LABORATORYCreatinine1.69(H)0.70 - 1.30 mg/dL11/16/2024 3:00 AM [facility] PATHOLOGY LABORATORYCalcium9.18.6 - 10.3 mg/dL11/16/2024 3:00 AM [facility] PATHOLOGY LABORATORYAnion Mtw0752 - 20 11/16/2024 3:00 AM [facility] PATHOLOGY LABORATORYEstimated GFR (CKD-EPI)47(L)>=60 mL/min/1.52axc9411/16/2024 3:00 AM [facility] PATHOLOGY LABORATORYComment: 2020 CKD EPI Equation [...] Med 1 Vol. 385 Issue 19 Pages 3963-8453 Specimen (Source)Anatomical Location / LateralityCollection Method / Volume Collection TimeReceived TimeBloodBLOOD SPECIMEN / UnknownVenipuncture / Unknown 11/16/2024 1:35 AM EDT11/16/2024 2:46 AM EDT Narrative Authorizing ProviderResult TypeResult StatusHoney Lau MD98 GENERAL LABFinal ResultPerforming OrganizationAddressCity/State/ZIP CodePhone Number [facility] [address] [place] [phone] * (ABNORMAL) COMPLETE BLOOD COUNT (11/16/2024 1:35 AM EDT)ComponentValueRef RangeTest MethodAnalysis TimePerformed AtPathologist SignatureWBC9.24.5 - 11.5 K/uL11/16/2024 2:44 AM [facility] PATHOLOGY LABORATORYRBC2.75(L)4.50 - 5.90 M/uL 11/16/2024 2:44 AM [facility] PATHOLOGY LABORATORYHemoglobin9.4(L)13.9 - 16.3 g/dL 11/16/2024 2:44 AM [facility] PATHOLOG[facility] VDOITOUHMFErrrcmfbju24.0(L)41.0 - 53.0 % 11/16/2024 2:44 AM [facility] PATHOLOG[facility] BPGTCAOVGFBWN9685 - 100 fL11/16/2024 2:44 AM [facility] PATHOLOG[facility] KHVKHOCHJYAJW16.4(H)26.0 - 34.0 pg11/16/2024 2:44 AM EDT [facility] PATHOLOG[facility] DERBCEQXENDKCQ26.032.0 - 35.9 g/dL11/16/2024 2:44 AM [facility] PATHOLOG[facility] UMAXSMJHKZKafwquoi054467 - 400 K/uL11/16/2024 2:44 AM [facility] PATHOLOGY LABORATORYRDW-CV13.511.5 - 14.5 %11/16/2024 2:44 AM [facility] PATHOLOGY LABORATORYMPV8.57.5 - 11.2 fL11/16/2024 2:44 AM [facility] Specimen (Source)Anatomical Location / LateralityCollection Method / Volume Collection TimeReceived TimeBloodBLOOD SPECIMEN / UnknownVenipuncture / Pyzgiwm4911/16/2024 1:35 AM EDT11/16/2024 2:06 AM EDT Narrative Authorizing ProviderResult TypeResult StatusHoney Lau MD98 GENERAL LABFinal ResultPerforming OrganizationAddressCity/State/ZIP CodePhone Number [facility] [address] [place] [phone] * PHOSPHORUS (11/16/2024 1:35 AM EDT)ComponentValueRef RangeTest MethodAnalysis TimePerformed AtPathologist SignaturePhosphorus, Serum3.12.5 - 5.0 mg/dL 11/16/2024 3:00 [facility] LABORATORYSpecimen (Source)Anatomical Location / LateralityCollection Method / VolumeCollection TimeReceived Time BloodBLOOD SPECIMEN / UnknownVenipuncture / Ywpdqsf8511/16/2024 1:35 AM EDT 11/16/2024 2:46 AM EDT Narrative Authorizing ProviderResult TypeResult Alberto VENCES GENERAL LABFinal ResultPerforming OrganizationAddressty/State/ZIP CodePhone Number [facility] [address] [place] [phone] * (ABNORMAL) MAGNESIUM (11/16/2024 1:35 AM EDT)ComponentValueRef RangeTest MethodAnalysis TimePerformed AtPathologist SignatureMagnesium1.8(L)1.9 - 2.7 mg/dL11/16/2024 3:00 AM [facility] PATHOLOGY LABORATORYSpecimen (Source)Anatomical Location / LateralityCollection Method / VolumeCollection TimeReceived Time BloodBLOOD SPECIMEN / UnknownVenipuncture / Wwyplem8411/16/2024 1:35 AM EDT 11/16/2024 2:46 AM EDT Narrative Authorizing ProviderResult TypeResult StatusYolandekate Lau MD98 GENERAL LABFinal ResultPerforming OrganizationAddressCity/State/ZIP CodePhone Number [facility] [address] [place] [phone] * (ABNORMAL) BASIC METABOLIC PANEL (11/15/2024 2:32 AM EDT)ComponentValueRef RangeTest MethodAnalysis TimePerformed AtPathologist OlogxcqwdKewnuzx802(H)74 - 109 mg/dL11/15/2024 3:17 AM [facility] PATHOLOGY MYIICGZNZWOicgve802(H)136 - 145 mmol/L11/15/2024 3:17 AM [facility] PATHOLOGY LABORATORYPotassium4.63.5 - 5.0 mmol/L11/15/2024 3:17 AM [facility] PATHOLOGY LABORATORYCarbon Njdwyjr1979 - 31 mmol/L11/15/2024 3:17 AM [facility] PATHOLOGY CMPTAHRAVNUlkwjzoi633(H)98 - 107 mmol/L11/15/2024 3:17 AM [facility] PATHOLOGY LABORATORYBlood Urea Newyqjyc36(H)7 - 25 mg/dL11/15/2024 3:17 AM [facility] PATHOLOGY LABORATORYCreatinine1.85(H)0.70 - 1.30 mg/dL11/15/2024 3:17 AM [facility] PATHOLOGY LABORATORYCalcium8.88.6 - 10.3 mg/dL11/15/2024 3:17 AM [facility] PATHOLOGY LABORATORYAnion Ntp3430 - 20 11/15/2024 3:17 AM [facility] PATHOLOGY LABORATORYEstimated GFR (CKD-EPI)42(L)>=60 mL/min/1.48yrk0011/15/2024 3:17 AM [facility] PATHOLOGY LABORATORYComment: 2020 CKD EPI Equation [...] Med 1 Vol. 385 Issue 19 Pages 7913-7361 Specimen (Source)Anatomical Location / LateralityCollection Method / Volume Collection TimeReceived TimeBloodBLOOD SPECIMEN / UnknownVenipuncture / Unknown 11/15/2024 2:32 AM EDT11/15/2024 2:35 AM EDT Narrative Authorizing ProviderResult TypeResult StatusKimberly Glover GROUNDS AND NURSERY SPECIALIST-CNP98 GENERAL LAB Final ResultPerforming OrganizationAddressCity/State/ZIP CodePhone Number [facility] LABORATORY [address] [place] [address] * (ABNORMAL) COMPLETE BLOOD COUNT (11/15/2024 2:32 AM EDT)ComponentValueRef RangeTest MethodAnalysis TimePerformed AtPathologist SignatureWBC9.74.5 - 11.5 K/uL11/15/2024 2:51 AM [facility] PATHOLOGY LABORATORYRBC3.25(L)4.50 - 5.90 M/uL 11/15/2024 2:51 AM [facility] PATHOLOG[facility] XZKJTYOZTMXpnrsgjvfj59.7(L)13.9 - 16.3 g/dL11/15/2024 2:51 AM [facility] PATHOLOG[facility] DLWDNKGDUXPqjxmbjkdg72.5(L)41.0 - 53.0 %11/15/2024 2:51 AM [facility] PATHOLOG[facility] SMBIIERRYFKKO43810 - 100 fL11/15/2024 2:51 AM [facility] PATHOLOG[facility] POVCGYDWFSRYU24.826.0 - 34.0 pg11/15/2024 2:51 AM EDT [facility] PATHOLOGY LHZITFJCFMQQCF61.832.0 - 35.9 g/dL11/15/2024 2:51 AM [facility] PATHOLOG[facility] VCFEZOYYQMMiwsackh470506 - 400 K/uL11/15/2024 2:51 AM [facility] PATHOLOGY LABORATORYRDW-CV13.611.5 - 14.5 %11/15/2024 2:51 AM [facility] PATHOLOGY LABORATORYMPV8.07.5 - 11.2 fL11/15/2024 2:51 AM [facility] LABORATORY Specimen (Source)Anatomical Location / LateralityCollection Method / Volume Collection TimeReceived TimeBloodBLOOD SPECIMEN / UnknownVenipuncture / Mzhaeuw38/ 2:32 AM EDT11/15/2024 2:35 AM EDT Narrative Authorizing ProviderResult TypeResult StatusEvanmelinda Adalberto LONDONO-CNP98 GENERAL LAB Final ResultPerforming OrganizationAddressCity/State/ZIP CodePhone Number [facility] [address] [place] [phone] * PHOSPHORUS (11/15/2024 2:32 AM EDT)ComponentValueRef RangeTest MethodAnalysis TimePerformed AtPathologist SignaturePhosphorus, Serum3.12.5 - 5.0 mg/dL 11/15/2024 3:12 AM [facility] LABORATORYSpecimen (Source)Anatomical Location / LateralityCollection Method / VolumeCollection TimeReceived Time BloodBLOOD SPECIMEN / UnknownVenipuncture / Lveommy4811/15/2024 2:32 AM EDT 11/15/2024 2:35 AM EDT Narrative Authorizing ProviderResult TypeResult StatusKimberly Glover APRN-CNP98 GENERAL LAB Final ResultPerforming OrganizationAddressCity/State/ZIP CodePhone Number [facility] [address] [place] [phone] * MAGNESIUM (11/15/2024 2:32 AM EDT)ComponentValueRef RangeTest MethodAnalysis TimePerformed AtPathologist SignatureMagnesium2.01.9 - 2.7 mg/dL11/15/2024 3:12 AM [facility] PATHOLOGY LABORATORYSpecimen (Source)Anatomical Location / LateralityCollection Method / VolumeCollection TimeReceived TimeBloodBLOOD SPECIMEN / UnknownVenipuncture / Okgcpfo4611/15/2024 2:32 AM EDT11/15/2024 2:35 AM EDT Narrative Authorizing ProviderResult TypeResult JudyKimberly Glover APRN-CNP98 GENERAL LAB Final ResultPerforming OrganizationAddressCity/State/ZIP CodePhone Number [facility] [address] [place] [phone] * XR FLUORO SUPPORT ONLY IN SURGERY (KEYUR) (11/14/2024 10:07 AM EDT)Specimen (Source)Anatomical Location / LateralityCollection Method / VolumeCollection TimeReceived Time Narrative Authorizing ProviderResult TypeResult Tracie CASSIDY DIAGNOSTIC X-RAY Final Result * (ABNORMAL) BASIC METABOLIC PANEL (11/14/2024 6:29 AM EDT)ComponentValueRef RangeTest MethodAnalysis TimePerformed AtPathologist ZkmmymhwmRoiwpek68232 - 109 mg/dL11/14/2024 7:03 AM [facility] PATHOLOGY HLUUSMRLICBvjels387360 - 145 mmol/L11/14/2024 7:03 AM [facility] PATHOLOGY LABORATORYPotassium4.43.5 - 5.0 mmol/L11/14/2024 7:03 AM [facility] PATHOLOGY LABORATORYCarbon Pgnzuqi4383 - 31 mmol/L11/14/2024 7:03 AM [facility] PATHOLOG[facility] JNCXQVFKWOZmvreexl353(H)98 - 107 mmol/L11/14/2024 7:03 AM [facility] PATHOLOGY LABORATORYBlood Urea Uhxhmnvy56(H)7 - 25 mg/dL11/14/2024 7:03 AM [facility] PATHOLOGY LABORATORYCreatinine1.81(H)0.70 - 1.30 mg/dL11/14/2024 7:03 AM [facility] PATHOLOGY LABORATORYCalcium8.78.6 - 10.3 mg/dL11/14/2024 7:03 AM [facility] PATHOLOGY LABORATORYAnion Qoa3193 - 20 11/14/2024 7:03 AM [facility] PATHOLOGY LABORATORYEstimated GFR (CKD-EPI)43(L)>=60 mL/min/1.66kfe4211/14/2024 7:03 AM [facility] PATHOLOGY LABORATORYComment: 2020 CKD EPI Equation [...] Med 1 Vol. 385 Issue 19 Pages 1939-3261 Specimen (Source)Anatomical Location / LateralityCollection Method / Volume Collection TimeReceived TimeBloodBLOOD SPECIMEN / UnknownVenipuncture / Unknown 11/14/2024 6:29 AM EDT11/14/2024 6:36 AM EDT Narrative Authorizing ProviderResult TypeResult StatusKimberly Glover GROUNDS AND NURSERY SPECIALIST-CNP98 GENERAL LAB Final ResultPerforming OrganizationAddressCity/State/ZIP CodePhone Number [facility] [address] [place] [phone] * (ABNORMAL) PROTHROMBIN TIME AND INR (11/14/2024 6:29 AM EDT)ComponentValueRef RangeTest MethodAnalysis TimePerformed AtPathologist ZlysmzlmqWmfzanf76.4(H) 9.7 - 12.9 sec11/14/2024 7:15 AM [facility] PATHOLOGY LABORATORYINR1.20(H)0.90 - 1.10011/14/2024 7:15 AM [facility] PATHOLOGY LABORATORYSpecimen (Source)Anatomical Location / LateralityCollection Method / VolumeCollection TimeReceived Time BloodBLOOD SPECIMEN / UnknownVenipuncture / Aiqbexl2311/14/2024 6:29 AM EDT 11/14/2024 6:36 AM EDT Narrative Authorizing ProviderResult TypeResult StatusKimberly Glover APRN-CNP98 GENERAL LAB Final ResultPerforming OrganizationAddressCity/State/ZIP CodePhone Number [facility] [address] [place] [phone] * (ABNORMAL) COMPLETE BLOOD COUNT (11/14/2024 6:29 AM EDT)ComponentValueRef RangeTest MethodAnalysis TimePerformed AtPathologist SignatureWBC6.74.5 - 11.5 K/uL11/14/2024 6:41 AM [facility] PATHOLOGY LABORATORYRBC3.33(L)4.50 - 5.90 M/uL 11/14/2024 6:41 AM [facility] PATHOLOGY NNAWZQPLKEBpzofhewri86.4(L)13.9 - 16.3 g/dL11/14/2024 6:41 AM [facility] PATHOLOG[facility] NBQVRHPXZECnkpdywhuw33.6(L)41.0 - 53.0 %11/14/2024 6:41 AM [facility] PATHOLOG[facility] TFEUZIJXPAHFQ6971 - 100 fL11/14/2024 6:41 AM [facility] PATHOLOG[facility] UNKBTEQKAVASC65.3(H)26.0 - 34.0 pg11/14/2024 6:41 AM EDT [facility] PATHOLOGY FGQBYCJXSDKNLM03.032.0 - 35.9 g/dL11/14/2024 6:41 AM [facility] PATHOLOGY HUEEOBTVXIPfbuuslq236541 - 400 K/uL11/14/2024 6:41 AM [facility] PATHOLOGY LABORATORYRDW-CV13.211.5 - 14.5 %11/14/2024 6:41 AM [facility] PATHOLOGY LABORATORYMPV8.47.5 - 11.2 fL11/14/2024 6:41 AM [facility] LAB[facility]ORY Specimen (Source)Anatomical Location / LateralityCollection Method / Volume Collection TimeReceived TimeBloodBLOOD SPECIMEN / UnknownVenipuncture / Jcyimpy3111/14/2024 6:29 AM EDT11/14/2024 6:36 AM EDT Narrative Authorizing ProviderResult TypeResult StatusKimberly Glover APRN-CNP98 GENERAL LAB Final ResultPerforming OrganizationAddressCity/State/ZIP CodePhone Number [facility] [address] [place] [phone] * PARTIAL THROMBOPLASTIN TIME (11/14/2024 6:29 AM EDT)ComponentValueRef Range Test MethodAnalysis TimePerformed AtPathologist CgwfxqmgooSMG8725 - 37 sec 11/14/2024 7:15 AM [facility] PATHOLOGY LABORATORYSpecimen (Source)Anatomical Location / LateralityCollection Method / VolumeCollection TimeReceived Time BloodBLOOD SPECIMEN / UnknownVenipuncture / Fosenpx5211/14/2024 6:29 AM EDT 11/14/2024 6:36 AM EDT Narrative Authorizing ProviderResult TypeResult StatusKimberly Glover APRN-CNP98 GENERAL LAB Final ResultPerforming OrganizationAddressty/State/ZIP CodePhone Number [facility] [address] [place] [phone] * PHOSPHORUS (11/14/2024 6:29 AM EDT)ComponentValueRef RangeTest MethodAnalysis TimePerformed AtPathologist SignaturePhosphorus, Serum4.02.5 - 5.0 mg/dL 11/14/2024 7:03 AM [facility] PATHOLOGY LABORATORYSpecimen (Source)Anatomical Location / LateralityCollection Method / VolumeCollection TimeReceived Time BloodBLOOD SPECIMEN / UnknownVenipuncture / Sypyekk1611/14/2024 6:29 AM EDT 11/14/2024 6:36 AM EDT Narrative Authorizing ProviderResult TypeResult StatusKimberly Glover GROUNDS AND NURSERY SPECIALIST-CNP98 GENERAL LAB Final ResultPerforming OrganizationAddressCity/State/ZIP CodePhone Number [facility] [address] [place] [phone] * MAGNESIUM (11/14/2024 6:29 AM EDT)ComponentValueRef RangeTest MethodAnalysis TimePerformed AtPathologist SignatureMagnesium2.11.9 - 2.7 mg/dL11/14/2024 7:03 AM EDTM PATHOLOGY LABORATORYSpecimen (Source)Anatomical Location / LateralityCollection Method / VolumeCollection TimeReceived TimeBloodBLOOD SPECIMEN / UnknownVenipuncture / Cccuvup6011/14/2024 6:29 AM EDT11/14/2024 6:36 AM EDT Narrative Authorizing ProviderResult TypeResult Megan Glover GROUNDS AND NURSERY SPECIALIST-CNP98 GENERAL LAB Final ResultPerforming OrganizationAddressCity/State/ZIP CodePhone Number [facility] [address] [place] [phone] * XR CLAVICLE RIGHT 2 VIEWS (11/13/2024 [...] PM EDT)ComponentValueRef RangeTest MethodAnalysis TimePerformed AtPathologist SignatureVentricular jueu55OUAPOCR Atrial Onpg99XWJTITAR-J Shkbxbbt743jsDXVNJYD kxcckjxt96cxPXZME-Q blznxnse897wz MUSEQTC CALCULATION(BEZET)445msMUSEP drnp29rahoupuOWITL cfra8blnfdmjTAXIX axis 10degreesMUSEDiagnosisNormal sinus rhythm Minimal voltage criteria for LVH, may be normal variant ( R in aVL ) Borderline No previous ECGs available Confirmed by JEANMARIE MIDDLETON ([id number]) on 11/14/2024 2:07:39 PM MUSESpecimen (Source)Anatomical Location / LateralityCollection Method / Volume Collection TimeReceived Time11/13/2024 4:53 PM EDT11/14/2024 2:07 PM EDT Narrative Authorizing ProviderResult TypeResult StatusKimberly Glover APRN-CADEN VITAL SIGN ORDERSEdited Result - FinalPerforming OrganizationAddressCity/State/ZIP Code Phone Number [phone] [facility] [place] [address] * CONFIRMATION ABO/RH (11/13/2024 2:58 PM EDT)ComponentValueRef RangeTest Method Analysis TimePerformed AtPathologist SignatureABO Rh TypeA Dkgvudqf24/21/2025 3:54 PM [facility] PATHOLOGY LABORATORYSpecimen Expiration [id number] 11/13/2024 3:54 PM [facility] LABORATORYABO Rh/Amairani/TXRX HistoryA Tncyovzr60/21/2025 3:54 PM [facility] LABORATORYSpecimen (Source) Anatomical Location / LateralityCollection Method / VolumeCollection Time Received TimeBloodBLOOD SPECIMEN / UnknownVenipuncture / Kgazcky7511/13/2024 2:58 PM EDT11/13/2024 3:30 PM EDT Narrative Authorizing ProviderResult TypeResult StatusKimberley CASSIDY BLOOD BANKFinal Result Performing OrganizationAddressCity/State/ZIP CodePhone Number [facility] [address] [place] [phone] * CT TIBIA RIGHT W/O CONTRAST (11/13/2024 2:21 PM EDT)ComponentValueRef Range Test MethodAnalysis TimePerformed AtPathologist SignatureCTDI VOL31.6 (mGy) RADIOLOGYPHANTOM TYPEIEC Head Dosimetry PhantomRADIOLOGYCT XAC6343.5 (mGy.cm) RADIOLOGYCT SeriesLower legRADIOLOGYAnatomical RegionLateralityModalityCT Right Lower [...] examination has been reordered as accession number [id number] Narrative 11/13/2024 10:16 AM EDT EXAMINATION: XR [...] TYPEIEC Body Dosimetry Phantom,IEC Body Dosimetry PhantomRADIOLOGYCT PTH4213.9 (mGy.cm)RADIOLOGYCT SeriesEntire body,Entire bodyRADIOLOGYAnatomical RegionLateralityModalityCT BodyN/AComputed TomographySpecimen [...] TYPEIEC Head Dosimetry Phantom,IEC Head Dosimetry PhantomRADIOLOGYCT ZZH2622.5 (mGy.cm)RADIOLOGYCT SeriesHead,HeadRADIOLOGY Anatomical RegionLateralityModalityCT Head, HeadN/AComputed TomographySpecimen [...] AtPathologist SignatureLactate2.5(H)0.5 - 1.6 mmol/L11/13/2024 9:33 AM [facility] PATHOLOGY LABORATORYSpecimen (Source) Anatomical Location / LateralityCollection Method / VolumeCollection Time Received TimeBloodBLOOD SPECIMEN / UnknownVenipuncture / Wpnzevh0811/13/2024 9:05 AM EDT11/13/2024 9:25 AM EDT Narrative [facility] LABORATORY - 11/13/2024 9:33 AM EDT This test was developed, and its performance characteristics determined by the Department of Pathology of [facility]. It has not been cleared or approved by the FDA. This test is used for clinical purposes only. Authorizing ProviderResult TypeResult StatusKimberley West MD98 GENERAL LABFinal ResultPerforming OrganizationAddressCity/State/ZIP CodePhone Number [facility] [address] [place] [phone] * (ABNORMAL) CBC WITH DIFFERENTIAL (11/13/2024 9:04 AM EDT)ComponentValueRef RangeTest MethodAnalysis TimePerformed AtPathologist PlrytokolZXR39.0(H)4.5 - 11.5 K/uL11/13/2024 9:48 AM [facility] PATHOLOGY LABORATORYRBC3.83(L)4.50 - 5.90 M/uL11/13/2024 9:48 AM [facility] PATHOLOG[facility] CFLMNTKSIGIciaomymxa59.7(L)13.9 - 16.3 g/dL11/13/2024 9:48 AM [facility] PATHOLOGY VQFZALCSAIMrnuqdgvvw90.0(L)41.0 - 53.0 %11/13/2024 9:48 AM [facility] PATHOLOGY BQVONZYQMJBMF5340 - 100 fL11/13/2024 9:48 AM [facility] PATHOLOG[facility] BSABAUMAQNYBE22.226.0 - 34.0 pg11/13/2024 9:48 AM [facility] PATHOLOG[facility] JLHELZMZSGBPUO73.432.0 - 35.9 g/dL11/13/2024 9:48 AM [facility] PATHOLOGY IRNBQZVIRCMrjxmfvu936096 - 400 K/11/13/2024 9:48 AM [facility] PATHOLOGY LABORATORYRDW-CV13.711.5 - 14.5 %11/13/2024 9:48 AM [facility] PATHOLOGY LABORATORYMPV8.47.5 - 11.2 fL11/13/2024 9:48 AM [facility] LABORATORY Spfzeotsuzd43.0(H)31.0 - 76.0 %11/13/2024 9:48 AM [facility] LABOR[facility]ORY Neutrophil #11.07(H)1.50 - 8.00 K/11/13/2024 9:48 AM [facility] PATHOLOGY LABORATORYLymphocytes5.6(L)24.0 - 44.0 %11/13/2024 9:48 AM [facility] PATHOLOGY LABORATORYLymphocytes #0.73(L)1.00 - 4.80 K/11/13/2024 9:48 AM [facility] PATHOLOGY LABORATORYMonocytes9.12.0 - 11.0 %11/13/2024 9:48 AM [facility] PATHOLOGY LABORATORYMonocyte #1.18(H)0.20 - 1.00 K/11/13/2024 9:48 AM [facility] PATHOLOGY LABORATORYEosinophil0.10.1 - 4.0 %11/13/2024 9:48 AM [facility] PATHOLOGY LABORATORYEosinophil #0.010.00 - 0.70 K/11/13/2024 9:48 AM [facility] PATHOLOGY LABORATORYBasophils0.3<=1.9 %11/13/2024 9:48 AM [facility] PATHOLOGY LABORATORYBasophil #0.030.00 - 0.20 K/11/13/2024 9:48 AM [facility] PATHOLOG[facility] VVEWPZPHLCEYX66<= 9:48 AM [facility] PATHOLOGY LABORATORYSpecimen (Source)Anatomical Location / LateralityCollection Method / VolumeCollection TimeReceived TimeBloodBLOOD SPECIMEN / UnknownVenipuncture / Ieomost1211/13/2024 9:04 AM EDT11/13/2024 9:28 AM EDT Narrative Authorizing ProviderResult TypeResult Hema CASSIDY LAB ORDER ONLYFinal ResultPerforming OrganizationAddressCity/State/ZIP CodePhone Number [facility] [address] [place] [phone] * HIV1 HIV2 AGAB SCRN (11/13/2024 9:04 AM EDT)ComponentValueRef RangeTest Method Analysis TimePerformed AtPathologist SignatureHIV Ag-Ab ScreenNon-Reactive Non-Kjyxqkpd68/21/2025 11:30 AM [facility] PATHOLOGY LABORATORYComment:No laboratory evidence for HIV Infection. Negative result does not rule out acute HIV infection. Ifacute HIV infection is suspected, recommend ordering an HIV- 1 RNA quanitification test.Specimen (Source)Anatomical Location / Laterality Collection Method / VolumeCollection TimeReceived TimeBloodBLOOD SPECIMEN / UnknownVenipuncture / Qpqdlzk2011/13/2024 9:04 AM EDT11/13/2024 9:28 AM EDT Narrative [facility] - 11/13/2024 11:30 AM EDT HIV Information: ??[place] Rev. code 3701.243(E): This information has been [...] HIV/HEP/SYPH TESTING Final ResultPerforming OrganizationAddressCity/State/ZIP CodePhone Number [facility] [address] [place] [phone] * (ABNORMAL) BASIC METABOLIC PANEL (11/13/2024 9:04 AM EDT)ComponentValueRef RangeTest MethodAnalysis TimePerformed AtPathologist NfhasfawwIhcroym728(H)74 - 109 mg/dL11/13/2024 10:22 AM [facility] ASFDPLCLHTBngnaa650372 - 145 mmol/L11/13/2024 10:22 AM [facility] PATHOLOGY LABORATORYPotassium4.63.5 - 5.0 mmol/L11/13/2024 10:22 AM [facility] PATHOLOGY LABORATORYCarbon Tcrxjtc9328 - 31 mmol/L11/13/2024 10:22 AM [facility] XQQZXZZWPXUotfoluy874(H)98 - 107 mmol/L11/13/2024 10:22 AM [facility] PATHOLOGY LABORATORYBlood Urea Knopxlue32(H)7 - 25 mg/dL11/13/2024 10:22 AM [facility] PATHOLOGY LABORATORYCreatinine2.03(H) 0.70 - 1.30 mg/dL11/13/2024 10:22 AM [facility] PATHOLOGY LABORATORYCalcium8.98.6 - 10.3 mg/dL11/13/2024 10:22 AM [facility] PATHOLOGY LABORATORYAnion Rdt7920 - 20 11/13/2024 10:22 AM [facility] PATHOLOGY LABORATORYEstimated GFR (CKD-EPI)38(L) >=60 mL/min/1.79hhq0711/13/2024 10:22 AM [facility] PATHOLOGY LABORATORYComment: 2020 CKD EPI Equation [...] Med 2021 Vol. 385 Issue 19 Pages 2785-8891 Specimen (Source)Anatomical Location / LateralityCollection Method / Volume Collection TimeReceived TimeBloodBLOOD SPECIMEN / UnknownVenipuncture / Unknown 11/13/2024 9:04 AM EDT11/13/2024 9:28 AM EDT Narrative Authorizing ProviderResult TypeResult StatusAli Jenna VENCES GENERAL LABFinal ResultPerforming OrganizationAddressCity/State/ZIP CodePhone Number [facility] [address] [place] [phone] * TYPE AND SCREEN (11/13/2024 9:04 AM EDT)ComponentValueRef RangeTest Method Analysis TimePerformed AtPathologist SignatureABO Rh TypeA Tlefspuy71/21/2025 11:17 AM [facility] PATHOLOGY LABORATORYAb Screen DtsualThxvwwvx71/21/2025 11:17 AM [facility] PATHOLOGY LABORATORYSpecimen Expiration [id number]/21/2025 11:17 AM [facility] PATHOLOGY LABORATORYABO Rh/Amairani/TXRX HistoryA Positive 11/13/2024 11:17 AM [facility] PATHOLOGY LABORATORYSpecimen (Source)Anatomical Location / LateralityCollection Method / VolumeCollection TimeReceived Time BloodBLOOD SPECIMEN / UnknownVenipuncture / Dkrlmkw5111/13/2024 9:04 AM EDT 11/13/2024 9:56 AM EDT Narrative Authorizing ProviderResult TypeResult StatusKimberley CASSIDY BLOOD BANKFinal Result Performing OrganizationAddressCity/State/ZIP CodePhone Number [facility] [address] [place] [phone] * (ABNORMAL) PROTHROMBIN TIME AND INR (11/13/2024 9:04 AM EDT)ComponentValueRef RangeTest MethodAnalysis TimePerformed AtPathologist UglbytdalNunaymi60.59.7 - 12.9 sec11/13/2024 10:16 AM [facility] PATHOLOGY LABORATORYINR1.12(H)0.90 - 1.10 11/13/2024 10:16 AM [facility] PATHOLOGY LABORATORYSpecimen (Source)Anatomical Location / LateralityCollection Method / VolumeCollection TimeReceived Time BloodBLOOD SPECIMEN / UnknownVenipuncture / Vpsirxf2511/13/2024 9:04 AM EDT 11/13/2024 9:28 AM EDT Narrative Authorizing ProviderResult TypeResult StatusKimberley VENCES GENERAL LABFinal ResultPerforming OrganizationAddressCity/State/ZIP CodePhone Number [facility] [address] [place] [phone] * (ABNORMAL) PARTIAL THROMBOPLASTIN TIME (11/13/2024 9:04 AM EDT)ComponentValue Ref RangeTest MethodAnalysis TimePerformed AtPathologist SignatureaPTT<21(L)25 - 37 sec11/13/2024 10:27 AM [facility] PATHOLOGY LABORATORYSpecimen (Source) Anatomical Location / LateralityCollection Method / VolumeCollection Time Received TimeBloodBLOOD SPECIMEN / UnknownVenipuncture / Donqnvg6111/13/2024 9:04 AM EDT11/13/2024 9:28 AM EDT Narrative Authorizing ProviderResult TypeResult StatusKimberley VENCES GENERAL LABFinal ResultPerforming OrganizationAddressCity/State/ZIP CodePhone Number [facility] [address] [place] [address] * ALCOHOL (ETHANOL), BLOOD (11/13/2024 9:04 AM EDT)ComponentValueRef RangeTest MethodAnalysis TimePerformed AtPathologist SignatureEthanol<10None Detected mg/dL11/13/2024 10:22 AM [facility] PATHOLOGY LABORATORYSpecimen (Source) Anatomical Location / LateralityCollection Method / VolumeCollection Time Received TimeBloodBLOOD SPECIMEN / UnknownVenipuncture / Rneygyb2011/13/2024 9:04 AM EDT11/13/2024 9:28 AM EDT Narrative Authorizing ProviderResult TypeResult StatusKimberley VENCES GENERAL LABFinal ResultPerforming OrganizationAddressCity/State/ZIP CodePhone Number [facility] [address] [place] [address] from Last 3 Months Insurance * Guarantor: Christina Segovia TypeRelation to PatientDate of BirthPhoneBilling [id number] [place] [address] Advance Directives * Full Code (Latest Code Status on File) Date ActivatedDate InactivatedComments11/13/2024 3:19 PM11/18/2024 11:15 PM QuestionAnswerCommentsDocumentation of decision process for this code status:* Patient and surrogate unable or unavailable to discuss.?? There is no previous documentation of code status.?? Defaulting to Full Code Care Teams Team MemberRelationshipSpecialtyStart DateEnd Date Dev Hein MD [address] [place] [address] RqchrppccVunmdbmziemu42/6/25
--- OUTSIDE RECORDS SUMMARY | 2025-02-09 07:21 | XMS_ITS | Clinical Summary ---
Author Organization [facility] Address [address] [place] [address] Care Team Providers Care Cathode Ray Tube Assembler Name Role Phone Go Foster MD Primary Care Provider [phone] Sue Patrick DO Unavailable [phone] Allergies Active AllergyReactionsCriticalityNoted DateCommentsPertussis VaccinesUnknown 02/05/2023 [...] tablet Take 100 mg by mouth at fjhnsgp9501/27/2023ctive meloxicam (Mobic) 15 MG tablet TAKE ONE [...] Daily02/03/2024ctive Active Problems ProblemNoted DateDiagnosed DateAlkaline phosphatase mdbdpeazg26/18/2024Tuberous sclerosisMyofascial pain syndrome Overview (08/06/2023): Abdominal Wall or Pelvic Floor Seizure disorderBehavior disturbanceDisturbance of conductMental disability Overview (08/06/2023): Mental Retardation Back spasm Encounters DateTypeDepartmentCare VyoxLbcfxvleofw00/04/2025 11:40 AM ESTProcedure Visit [facility] [address] [facility] [address] [place] [address] Glenn Flores, DPM Lisfranc dislocation, left, initial encounter (Primary Dx); Pain due to onychomycosis of toenails of both feet01/26/2025bstract [facility] [address] [facility] [address] [place] [address] Glenn Flores DPM 01/26/2025amboo flowsheet [facility] [address] [facility] [address] [place] [id number] Glenn Flores DPM 01/26/2025Travelfrom Last 3 Months Family History RelationNameStatusCommentsFatherAliveMotherAlive Social History Tobacco UseTypesPacks/DayYears UsedDateSmoking Tobacco: NeverPassive Smoke Exposure: NeverSmokeless Tobacco: Never Tobacco Cessation:Counseling Given: Yes Alcohol UseStandard Drinks/WeekCommentsNever0 (1 standard drink = 0.6 oz pure alcohol)Sex and Gender InformationValueDate RecordedSex Assigned at BirthNot on fileLegal TtwSwfb7205/07/2022 6:35 PM EDTGender IdentityNot on fileSexual OrientationNot on file Last Filed Vital Signs Vital SignReadingTime TakenCommentsBlood Tiovqdih020/8401/26/2025 11:21 AM EST Vhcpi053601/26/2025 11:21 AM ESTTemperature--Respiratory Jagf3186 11:42 AM EDTOxygen Gfypuceovf11%08/06/2023 9:00 AM EDTInhaled Oxygen Concentration-- Vbjrpa92.9 kg (185 lb)01/26/2025 11:21 AM ZMFXsdulc697.7 cm (5' 8 )01/26/2025 11:21 AM ESTBody Mass Index28.13103/29/2024 11:21 AM EST Plan of Treatment DateTypeDepartmentCare Team (Latest Contact Info)Rfcveqsoulb42/19/2026 11:30 AM ESTProcedure Visit [facility] [address] [facility] [address] [place] [phone] Glenn Flores DPM [address] [facility] [address] [place] [address] Health MaintenanceDue DateLast DoneCommentsCT Cjzlqstuhsoi1968Colonoscopy 1968FIT1968FOBT1968 4323Mwwxotsvgwgxq1968COVID-19 Vaccine ( season)512/01/2024, 12/10/2022, 12/11/2021, Additional history existsInfluenza Vaccine (#1)/, 12/10/2022, 12/11/2021, Additional history existsColorectal Cancer Lamquzkex62/21/2026 FIT-DNAneumococcal Vaccine: Pediatrics (0 to 5 Years) and At-Risk Patients (6 to 64 Years)Aged OutNo longer eligible based on patient's age to complete this topic Insurance Care Teams Team MemberRelationshipSpecialtyStart DateEnd Date Go Foster MD [address] [facility] [address] [place] [address] PCP - GeneralFamily Boudpgwi29/17/24 Sue Patrick DO [address] [place] [address] Referring AllzfapixNmivjmwfh34/17/24
--- OUTSIDE RECORDS SUMMARY | 2025-02-09 07:21 | XMS_ITS | Clinical Summary ---
Author Organization [facility] Address [address] [place] [address] Care Team Providers Care Curriculum And Instruction Specialist Name Role Phone Go Foster DO Primary Care Provider Allergies Active AllergyReactionsCriticalityNoted DateCommentsPertussis Vaccine,Fluid Dwncaxqn90/18/2017 Medications MedicationSigDispense QuantityRefillsLast FilledStart DateEnd DateStatus alendronate [...] InformationValueDate RecordedSex Assigned at BirthNot on fileLegal PnjYmgw0506/05/2016 12:51 PM EDTGender IdentityNot on fileSexual OrientationNot on file Last Filed Vital Signs Vital SignReadingTime TakenCommentsBlood Jmgkfvrz312/8409/09/2016 11:53 AM EDT Uwxeb837309/09/2016 11:53 AM EDTTemperature--Respiratory Rate--Oxygen Saturation-- Inhaled Oxygen Concentration--Lzxoox15.2 kg (187 lb 13.3 oz)09/09/2016 11:53 AM KRCAiejcn219.7 cm (5' 8.39 )09/09/2016 11:53 AM EDTBody [...] Lei TypeRelation to PatientDate of BirthPhone Billing AddressPersonal/LnsjfoCkdk1970 [facility] [address] [place] [address] * Guarantor: Alethea Leicount TypeRelation to PatientDate of BirthPhone Billing AddressPersonal/ZpsxqsDfiz1970 [facility] [address] [place] [address] * Guarantor: Alethea Lei DAccount TypeRelation to PatientDate of BirthPhone Billing AddressPersonal/RhotcpGogi1970 [facility] [address] [place] [address] Care Teams Team MemberRelationshipSpecialtyStart DateEnd Date Go Foster DO [address] [place] [address] [facility]06/11/16
--- OUTSIDE RECORDS SUMMARY | 2025-02-09 07:21 | XMS_ITS | Patient Health Record ---
Author Organization [facility] Address [address] [place] [address] Care Team Providers Care Machine Ii Coremaker Name Role Phone Dr. Panda Rivera Primary Care Provider EduardSommerBrianna Unavailable [phone] Yolanda Harley Unavailable [phone] Saloni Montero Unavailable [phone] Reason For Referral No Information Encounters Encounter Location Date Provider Diagnosis [facility] [address] [place] [address] 06/01/2024 Yolanda Harley Encounter for dental examination and cleaning with abnormal findings Z01.21 ; Other dental procedure status Z98.818 ; Disturbances in tooth eruption K00.6 ; Acute gingivitis, plaque induced K05.00 ; Dental caries on pit and fissure surface penetrating into dentin K02.52 ; Necrosis of pulp K04.1 and Cracked tooth K03.81 [facility] [address] [place] [address] 09/20/2024 Yolandamiles Harley [facility] [place] [address] Saloni YiDental caries on pit and fissure surface penetrating into dentin K02.52 and Cracked tooth K03.81[facility] [place] [address]Esther YiDental caries on pit and fissure surface penetrating into dentin K02.52 Assessments Encounter Date Diagnosis (ICD Code) Assessment Notes Treatment Notes Treatment Clinical Notes Section Notes 11/09/2024 Dental caries on pit and fissure surface penetrating into dentin (ICD-10 - K02.52) 10/04/2024Dental caries on pit and fissure surface penetrating into dentin (ICD- 10 - K02.52)06/01/2024Encounter for dental examination and cleaning with abnormal findings (ICD-10 - Z01.21)06/01/2024Other dental procedure status (ICD- 10 - Z98.818)5Cracked tooth (ICD-10 - K03.81)06/01/2024Disturbances in tooth eruption (ICD-10 - K00.6)06/01/2024ute gingivitis, plaque induced (ICD- 10 - K05.00)06/01/2024Dental caries on pit and fissure surface penetrating into dentin (ICD-10 - K02.52)06/01/2024Necrosis of pulp (ICD-10 - K04.1)06/01/2024 Cracked tooth (ICD-10 - K03.81) Plan Of Treatment Next Appt Details Provider Name:Saloni Montero, 07/2025 10:00:00 AM, [address], [place], [address], Provider Name:Saloni Montero, 10:00:00 AM, [address], [place], [address], Provider Name:Brianna Chapa , 05/30/2025 11:15:00 AM, [address], [place], [address], Insurance Providers Payer Name Payer Address Payer Phone Subscriber Number Group Number Insured Name Patient Relationship to Insured Coverage Start Date Coverage End Date [employer] [place] [address] [place] [id number] [phone] [id number] ANUEL LEIelf - patient is the [id number]
--- OUTSIDE RECORDS SUMMARY | 2025-02-09 07:21 | XMS_ITS | Clinical Summary ---
Author Organization [facility] Address [id number] [place] [address] Care Team Providers Care Support Services Coordinator Name Role Phone Go Foster Radhames OLIVO Primary Care Provider Social History Tobacco UseTypesPacks/DayYears UsedDateSmoking Tobacco: Never AssessedChildcare AnswerDate YwvfoewkEfpdatspmSgizzzz38/12/2019EmploymentAnswerDate Recorded WwkvzeotziXvpbxzd15/12/2019Purpose - LifeAnswerDate RecordedPurpose and direction in thtyIpcumlt15/11/2021Sex and Gender InformationValueDate Recorded Sex Assigned at BirthNot on fileLegal AjoPvkl8207/17/2016 12:50 PM EDTGender IdentityNot on fileSexual OrientationNot on file Plan of Treatment Not on file Medical Devices Not on file Insurance Care Teams Team MemberRelationshipSpecialtyStart DateEnd Date Go Foster DO [address] [place] [address] [facility]07/17/16
[2025-02-09 10:32] LABS: Prostate Specific Antigen Dx 0.69 ng/mL (<=4.00)
== END 2025-02-09 07:18 | disposition home or self-care (01) ==
LOC: LAB 07:17
PROVIDERS: PCP Family Medicine; Visit Provider Family Medicine
DX: N40.1 Benign prostatic hyperplasia with lower urinary tract symptoms (principal)
CPT/HCPCS: 36415; 84153